=== PATIENT | female | born 1960 | race Caucasian/White ===

== ENCOUNTER 2020-06-12 11:21 | Inpatient (IN) | payer MEDICAID, SELFPAY ==
[2020-06-12] VITALS (8 sets, daily range): BP systolic 124–141; BP diastolic 61–88; PULSE 89–109; RESP 12–22; TEMP 36.9–37.3; O2SAT 96–99; BMI 22.0; BMI 18.2
--- NOTE | 2020-06-12 11:46 | EKG12_ITS ---
Test Reason : FALL Blood Pressure : / mmHG Vent. Rate : 097 BPM Atrial Rate : 097 BPM P-R Int : 122 ms QRS Dur : 076 ms QT Int : 370 ms P-R-T Axes : 036 040 083 degrees QTc Int : 469 ms Normal sinus rhythm Normal ECG Confirmed by GRZEGORZ WOOD, LEIDY ([id number]), online content editor LIZETH REYES ([id number]) on 06/14/2020 10:10:47 AM Referred By: MR Confirmed By:LEIDY LANTIGUA MD
[2020-06-12 12:11] LABS: Absolute Lymphocyte Count 1.03 X10^3/uL (0.83-4.51); Absolute Neutrophil Count 6.4 X10^3/uL (2.0-7.7); Basophil# 0.01 X10^3/uL; Basophil% 0.1 % (0-1); Eosinophil# 0.06 X10^3/uL; Eosinophils% 0.7 % (0-5); Hematocrit 36.7 % (37-47); Hemoglobin 12.1 g/dL (12.0-15.0); Lymphocyte # 1.03 X10^3/ul (4.0); Lymphocyte % 12.4 % (19-41); Mean Corpuscular Hgb 29.9 pg (27.0-32.0); Mean Corpuscular Volume 90.6 fL (81-99); Mean Platelet Vol. 10.1 fl (6.2-12.0); Monocyte% 9.6 % (0-10); NRBC Flagged by Analyzer 0 % (0-5); Neutrophil # 6.38 X10^3/uL (2.7-7.7); Platelet Count 197 K/mm3 (150-450); RBC Distribution Width CV 12.2 % (11.6-14.6); RBC Distribution Width SD 40.3 fl (35.1-43.9); Red Blood Count 4.05 M/mm3 (4.2-5.4); White Blood Count 8.3 K/mm3 (4.4-11.0)
[2020-06-12] MEDS: LORazepam 0.5 MG Tablet PO ×2 (12:18→21:22)
[2020-06-12] MEDS: Morphine 2 MG/ML Syringe IV (12:20)
[2020-06-12] MEDS: Ondansetron 4 MG/2 ML Vial IV (12:20)
[2020-06-12 12:25] LABS: Anion Gap 5 (5-15); BUN 6 mg/dL (7-18); Calcium,Total 8.6 mg/dL (8.5-10.1); Chloride 108 mmol/L (98-107); Creatinine, Serum 0.46 mg/dL (0.55-1.02); EST Glomerular Filtration Rate 146 mL/min (>60); Est Glom Filt Rate - Afr Amer 177 mL/min (>60); Glucose 95 mg/dL (74-106); Potassium 3.8 mmol/L (3.5-5.1); Sodium Level 138 mmol/L (136-145)
--- NOTE | 2020-06-12 12:30 | RAD_ITS ---
STUDY: X-RAY CHEST REASON FOR EXAM: Female, 59 years old. FELL ON FRIDAY, PAIN TECHNIQUE: Single AP portable view of the chest. COMPARISON: None. FINDINGS: The lungs are clear and expanded. There is no demonstrated pleural abnormality. Normal size heart. Normal mediastinum and stephanie. Normal visualized pulmonary arteries. Normal visualized aortic arch and descending thoracic aorta. There are diffuse degenerative changes of the visualized thoracic spine. There is a right shoulder arthroplasty. There are old healed fractures of the left ribs. There is no demonstrated abnormality of the visualized soft tissue structures of the upper abdomen. RAD/Chest 1 View (Portable) IMPRESSION: Degenerative changes, as described above. No demonstrated acute cardiopulmonary process. Electronically Signed: Layne Sanchez, at 12:56 EDT Tel , Service support ,
--- NOTE | 2020-06-12 12:30 | RAD_ITS ---
STUDY: X-RAY - PELVIS AND LEFT HIP REASON FOR EXAM: Female, 59 years old. FELL ON FRIDAY, PAIN TECHNIQUE: 3 views of the pelvis and hip. COMPARISON: None. FINDINGS: There is a non-specific bowel gas pattern. Normal visualized soft tissue structures. There is diffuse demineralization of the osseous structures. There is narrowing with cortical sclerosis and osteophyte formation of the sacroiliac joint consistent with degenerative osteoarthritic changes. Normal bilateral superior and inferior pubic rami. There are degenerative changes of the pubic symphysis with articular narrowing and sclerosis. Normal bilateral ischial tuberosities. There is mildly displaced intertrochanteric fracture of the left femur. RAD/HIP, UNI W/ Pelvis 2-3 Views IMPRESSION: There is mildly displaced intertrochanteric fracture of the left femur. Electronically Signed: Layne Sanchez, at 12:58 EDT Tel , Service support ,
[2020-06-12 12:42] LABS: Partial Thromboplast Time 33.7 Seconds (24.1-36.2); Prothrombin Time (Protime)PT. 12.9 SECONDS (11.7-14.9)
--- NOTE | 2020-06-12 13:38 | NURSING ---
HOSPITALIST PAGED ORTHO PAGED
--- NOTE | 2020-06-12 13:39 | NURSING ---
DR HERNANDEZ FOR DR ESTEVEZ
--- NOTE | 2020-06-12 13:58 | ED.DCSUM_ITS ---
History of Present Illness Chief Complaint: Fall Narrative: Patient presenting for evaluation secondary to a fall, pelvic pain, inability to ambulate. 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 She denies hitting her head or loss of consciousness. No numbness or weakness. She denies that the fall was associated with any sort of syncopal event. She is not anticoagulated. Pain is moderate, worse with palpation and movement. Patient basically has been sitting on the couch for the last couple of days, so she called EMS to be brought in for evaluation. Past Medical History - Allergies and Home Meds Allergies/Adverse Reactions: Allergies Penicillins Allergy (Verified 12/22/16 15:26) Hives Prior records reviewed: Yes Past Medical History: - - COPD Surgical History: - - Right shoulder surgery Smoking Status: Current every day smoker Alcohol: None Drugs: None Review of Systems All systems negative except as indicated General: Denies: Chills, Fever, Sweats Eyes: Denies: Visual changes - bilaterally, Diplopia ENT: Denies: Rhinorrhea, Sore throat Cardiovascular: Denies: Chest pain, Palpitations Respiratory: Denies: Dyspnea, Cough, Dyspnea on exertion Gastrointestinal: Denies: Abdominal pain, Nausea, Vomiting, Diarrhea, Melena, Hematochezia Genitourinary: Denies: Dysuria, Hematuria, Frequency Musculoskeletal: Reports: Extremity Pain Skin: Denies: Rash, Wounds Neurological: Denies: Headache, Weakness, Numbness Physical Exam Vital Signs/Narrative: Vital Signs Temp Pulse Resp BP Pulse Ox 06/12/20 13:03 99.1 F 91 17 139/71 H 97 06/12/20 12:21 95 17 133/74 H 99 06/12/20 11:42 99.1 F 109 H 22 H 136/74 H 99 06/12/20 11:24 99.1 F 104 H 12 137/76 H 99 Inital Vital Signs reviewed: Yes General: Cachectic Head: Normocephalic, Atraumatic Eyes: Perrl, EOMI ENT: TM's clear, No hemotympanum or drainage, No trauma Neck: Nontender, Full ROM Cardiovascular: Regular rate, Regular rhythm, No murmurs Respiratory: No distress, CTA bilaterally, Chest nontender Abdomen: Soft, Nontender, Nondistended, Normal bowel sounds Back: Nontender Extremeties: Pain with logroll of the left leg. No evidence of obvious deformity. Normal distal sensation and pulses. Skin: Normal color, No rash Neurological: Alert, Oriented x3, Cranial nerves II-XII grossly intact, Normal Strength, Normal Sensation Psychological: Normal affect Diagnostic/Tx/Re-eval Clinical Impression(s) from Imaging Studies Chest X-Ray 06/12/20 12:30 IMPRESSION: Degenerative changes, as described above. No demonstrated acute cardiopulmonary process. Electronically Signed: Layne Sanchez, at 12:56 EDT Tel , Service support , Hip/Pelvis X-Ray 06/12/20 12:30 IMPRESSION: There is mildly displaced intertrochanteric fracture of the left femur. Electronically Signed: Layne Sanchez, at 12:58 EDT Tel , Service support , Laboratory Data 06/12/20 06/12/20 06/12/20 11:58 11:58 11:58 WBC 8.3 RBC 4.05 L Hgb 12.1 Hct 36.7 L MCV 90.6 MCH 29.9 MCHC 33.0 RDW Std Deviation 40.3 RDW Coeff of Brittany 12.2 Plt Count 197 MPV 10.1 Immature Gran % (Auto) 0.200 Neut % (Auto) 77.0 H Lymph % (Auto) 12.4 L [place] % (Auto) 9.6 Eos % (Auto) 0.7 Baso % (Auto) 0.1 Absolute Neuts (auto) 6.4 Absolute Lymphs (auto) 1.03 Nucleated RBC % 0 PT 12.9 INR 1.0 APTT 33.7 Sodium 138 Potassium 3.8 Chloride 108 H Carbon Dioxide 25.0 Anion Gap 5 BUN 6 L Creatinine 0.46 L Estim Creat Clear Calc 102.90 Est GFR (MDRD) Af Amer 177 Est GFR (MDRD) Non-Af 146 BUN/Creatinine Ratio 13.0 Glucose 95 Calcium 8.6 - EKG Initial EKG Interpretation: - - Sinus rhythm at [address] segments normal T waves normal OR and QTc intervals no evidence of acute ischemia or arrhythmia - Medical Decision Making Patient presented after mechanical fall. I was concerned for hip fracture. Screening labs chest x-ray and EKG were all obtained. Patient was noted to have a left intertrochanteric hip fracture. Patient will be admitted under the hospitalist. I did discuss this with orthopedics. ED Disposition - Plan for ED Patient: Disposition: Acute Care Hospital [facility] Diagnosis: Intertrochanteric fracture of left hip
--- NOTE | 2020-06-12 14:08 | NURSING ---
303 HIP FX TERELETSKY
--- NOTE | 2020-06-12 14:54 | HP.PCM_ITS ---
Problem List (1) Intertrochanteric fracture of left hip Status: Acute (2) COPD (chronic obstructive pulmonary disease) Status: Chronic (3) Seizure Status: Chronic (4) HLD (hyperlipidemia) Status: Chronic (5) Esophageal reflux Status: Chronic (6) Rheumatoid arthritis Status: Chronic (7) Tobacco use disorder Status: Chronic History of Present Illness Date of Admission: 06/12/20 Chief Complaint: left hip pain The patient is a 59 year old F with pmhx of COPD, ongoing nicotine abuse, seizure disorder, rheumatoid arthritis, GERD, who presented to the ER with c/o left hip pain. This began two days prior when she fell at home. The patient was walking in her house and lost balance, falling onto the left hip. She denies LOC or head strike. She had severe pain and was unable to sit up or stand and weigh tbear. She did not come to the hospital because she though she may have only bruised her hip and that it would get better on its own. She continued to have pain and inability to stand and called the ambulance to come to the ER. She was found to have a left intertroch fracture. She has otherwise been in her normal state of health. [] Past Medical History Past Medical History (Chronic Problems): Chronic Problems COPD (chronic obstructive pulmonary disease) (Chronic) Seizure (Chronic) HLD (hyperlipidemia) (Chronic) Tobacco use disorder (Chronic) Rheumatoid arthritis (Chronic) Esophageal reflux (Chronic) Diabetes mellitus (Chronic) Chronic airway obstruction (Chronic) Allergies amoxicillin Allergy (Verified 06/12/20 14:33) Hives Penicillins Allergy (Verified 12/22/16 15:26) Hives aspirin Adverse Reaction (Verified 06/12/20 14:33) PT UNSURE OF REACTION Home Medications: Ambulatory Orders Medication Instructions Recorded Alendronate Sodium [Fosamax] 70 mg PO SA 12/22/16 Ipratropium/Albuterol Respimat 1 puff INHALATION 4X/DAY 12/22/16 [Combivent Respimat Inhal [place]] Lorazepam [Ativan] 0.5 mg PO BID 12/22/16 Omeprazole [Prilosec] 40 mg PO QHS 12/22/16 Phenytoin Na [Dilantin] 100 mg PO BID@0900,1700 12/22/16 Acetaminophen 500 mg PO Q6H PRN PRN 06/12/20 Aclidinium [place] [Tudorza 400 mcg IH BID 06/12/20 Pressair] Ascorbic Acid [Vitamin C] 500 mg PO DAILY 06/12/20 Benzonatate 100 mg PO DAILY PRN 06/12/20 Cholecalciferol (Vitamin D3) 2,000 unit PO DAILY 06/12/20 [Vitamin D3] Cyclobenzaprine HCl 10 mg PO BID PRN PRN 06/12/20 Diclofenac [Voltaren] 75 mg PO BID PRN PRN 06/12/20 Fluticasone Propionate [Flovent 2 puff INHALATION BID 06/12/20 Diskus] Folic Acid 1 mg PO BID 06/12/20 Hydrocodone/Acetaminophen [[place] 1 tab PO TID PRN PRN 06/12/20 5-325 Tablet] Loratadine 10 mg PO DAILY 06/12/20 Multivitamin with Folic Acid 400 mcg PO DAILY 06/12/20 [Thera Tablet] Paroxetine [Paxil] 20 mg PO DAILY 06/12/20 Pravastatin [Pravachol] 20 mg PO QHS 06/12/20 Surgical History: hysterectomy, - - Right shoulder surgery Psychiatric History: No pertinent psych hx Smoking Status: Current every day smoker Tobacco Use: Cigarettes Alcohol: Occasional Drugs: None - *Family History Maternal History Items: Hypertension Paternal History Items: Hypertension Review of Systems Constitutional: Denies: Chills, Fever, Weight Change HEENT: Denies: Head Aches, Sinus Congestion, Sinus Drainage Cardiovascular: Denies: Chest Pain, Palpitations Respiratory: Denies: Cough, Shortness of breath at rest, Sputum production Gastrointestinal: Denies: Abdominal Pain, Nausea, Vomiting Genitourinary: Denies: Dysuria Musculoskeletal: Reports: Joint Pain - left hip pain. Denies: Joint Tenderness Skin: Denies: Rash, Wounds Neurological: Denies: Numbness, Tingling, Focal weakness Psychiatric: Denies: Anxiety, Depression, Homicidal Ideations, Suicidal Ideations Hematologic/ Lymphatic: Denies: Easy Bruising, Easy Bleeding VTE Information - Inpt Only VTE Present on Admission: No VTE Mechan Device Prophylaxis: None VTE Pharm Prophylaxis ordered?: Yes Patient Problems: Active and Suspected Problems Intertrochanteric fracture of left hip (Acute) - Physical Exam Vitals/I&O's: Vital Signs Temp Pulse Resp BP Pulse Ox 98.4 F 89 17 141/61 H 98 06/12/20 14:19 06/12/20 14:19 06/12/20 14:19 06/12/20 14:19 06/12/20 14:19 Oxygen Delivery Method Room Air Weight: 109 lb 2.061 oz Body Mass Index (BMI) 22.0 General: Alert, Oriented x3, Cooperative, - - frail HEENT: Atraumatic, PERRLA, EOMI, Normocephalic Neck: Supple, No JVD, Negative Carotid Bruits Lungs: Clear to auscultation, Diminished Cardiovascular: Regular rate, No murmurs Abdomen: Bowel Sounds Present, Soft, Non Tender Extremities: No edema, Capillary Refill Less than 3 Seconds Skin: No rashes, No breakdown Musculoskeletal: No Tenderness to Palpation of Joints or Extremities, - - open wound no active drainage left yoder, no erythema or warmth. Neurological: Cranial nerves II-XII grossly intact Psych/Mental Status: Normal Affect, Appropriate Laboratory Results 06/12/20 11:58: WBC 8.3, RBC 4.05 L, Hgb 12.1, Hct 36.7 L, MCV 90.6, MCH 29.9, MCHC 33.0, RDW Std Deviation 40.3, RDW Coeff of Brittany 12.2, Plt Count 197, MPV 10.1, Immature Gran % (Auto) 0.200, Neut % (Auto) 77.0 H, Lymph % (Auto) 12.4 L, [place] % (Auto) 9.6, Eos % (Auto) 0.7, Baso % (Auto) 0.1, Absolute Neuts (auto) 6.4, Absolute Lymphs (auto) 1.03, Nucleated RBC % 0 06/12/20 11:58: PT 12.9, INR 1.0, APTT 33.7 06/12/20 11:58: Sodium 138, Potassium 3.8, Chloride 108 H, Carbon Dioxide 25.0, Anion Gap 5, BUN 6 L, Creatinine 0.46 L, Estim Creat Clear Calc 102.90, Est GFR (MDRD) Af Amer 177, Est GFR (MDRD) Non-Af 146, BUN/Creatinine Ratio 13.0, Glucose 95, Calcium 8.6 Current Medications Influenza Virus Vaccine Quadrival (Flucelvax /Fluzone ) 0.5 ml IM .ONCE ONE Stop: 06/13/20 10:01 Sodium Chloride () 10 - 40 ml IV UD PRN PRN Reason: SALINE FLUSH Assessment/Plan All Active Problems Intertrochanteric fracture of left hip (Acute) 1. Left intertroch fx 2/2 mechanical fall - probably pathologic with hx of osteoporosis - consult to Dr. Reyes. Pt already on Vit D, alendronate 2. COPD - no acute exacerbation - continue aerosols and provide incentive spirometer 3. Nicotine abuse - pt continues to smoke 1-1.5 ppd 4. Hx seizures - continue dilantin 5. Hx RA - on norco, voltaren, folate 5. GERD - continue PPI 6. Anxiety/Depression - ativan, paxil 7. HLD - statin DVT ppx: per ortho DC planning: PTOT post op This patient was seen by Alireza Paul PA-C under the supervision of Dr. Mejia
[2020-06-12] MEDS: Morphine 4 MG/ML Syringe IV ×2 (16:22→23:02)
[2020-06-12] MEDS: 0.9% Saline Lock 10 ML Syringe IV (16:25)
[2020-06-12] MEDS: 0.9% Normal Saline 1,000 ML 75 ML IV (16:25)
[2020-06-12] MEDS: Phenytoin Na 100 MG Capsule PO (16:36)
[2020-06-12] MEDS: Budesonide Respules 0.5 MG/2 ML AMPUL.NEB. INHALATION (18:43)
[2020-06-12] MEDS: Ipratropium/Albuterol Sulfate 3 ML AMPUL.NEB INHALATION (18:43)
[2020-06-12] MEDS: Pravastatin 20 MG Tablet PO (21:22)
[2020-06-12] MEDS: Pantoprazole Sodium 40 MG Tablet PO (21:22)
[2020-06-12] MEDS: Heparin Injection (Vial) 5,000 UNIT/ML VIAL 5000 UNIT SC (21:23)
[2020-06-13] VITALS (15 sets, daily range): BP systolic 115–162; BP diastolic 60–88; PULSE 78–109; RESP 12–18; TEMP 36.3–36.9; O2SAT 93–99; BMI 18.2
[2020-06-13] MEDS: Ipratropium/Albuterol Sulfate 3 ML AMPUL.NEB INHALATION ×4 (01:01→19:40)
[2020-06-13] MEDS: oxyCODONE 5 MG Tablet 10 MG PO ×3 (01:09→19:32)
[2020-06-13] MEDS: 0.9% Saline Lock 10 ML Syringe IV (01:11)
[2020-06-13] MEDS: 0.9% Normal Saline 1,000 ML 75 ML IV ×2 (05:27→19:30)
[2020-06-13] MEDS: Morphine 4 MG/ML Syringe IV ×4 (05:32→23:23)
[2020-06-13 06:33] LABS: Absolute Lymphocyte Count 1.25 X10^3/uL (0.83-4.51); Absolute Neutrophil Count 4.2 X10^3/uL (2.0-7.7); Basophil# 0.01 X10^3/uL; Basophil% 0.2 % (0-1); Eosinophil# 0.11 X10^3/uL; Eosinophils% 1.8 % (0-5); Hematocrit 33.2 % (37-47); Hemoglobin 10.5 g/dL (12.0-15.0); Lymphocyte # 1.25 X10^3/ul (4.0); Mean Corp Hgb Conc 31.6 g/dL (32-36); Mean Corpuscular Hgb 29.8 pg (27.0-32.0); Mean Corpuscular Volume 94.3 fL (81-99); Mean Platelet Vol. 10.5 fl (6.2-12.0); Monocyte# 0.67 X10^3/uL; Monocyte% 10.7 % (0-10); NRBC Flagged by Analyzer 0 % (0-5); Neutrophil # 4.21 X10^3/uL (2.7-7.7); Neutrophil % 67.1 % (47-70); Platelet Count 178 K/mm3 (150-450); RBC Distribution Width CV 12.4 % (11.6-14.6); RBC Distribution Width SD 42.7 fl (35.1-43.9); Red Blood Count 3.52 M/mm3 (4.2-5.4); White Blood Count 6.3 K/mm3 (4.4-11.0)
[2020-06-13] MEDS: Budesonide Respules 0.5 MG/2 ML AMPUL.NEB. INHALATION ×2 (07:01→19:40)
[2020-06-13 07:03] LABS: Anion Gap 4 (5-15); BUN 12 mg/dL (7-18); BUN/Creat Ratio 28.7 RATIO (10-20); Calcium,Total 7.9 mg/dL (8.5-10.1); Chloride 108 mmol/L (98-107); Creatinine, Serum 0.42 mg/dL (0.55-1.02); EST Glomerular Filtration Rate 165 mL/min (>60); Est Glom Filt Rate - Afr Amer 199 mL/min (>60); Estimated Creatinine Clearance 93.15 ml/min; Glucose 100 mg/dL (74-106); Sodium Level 138 mmol/L (136-145)
[2020-06-13 07:06] LABS: Phenytoin (Dilantin) Level 7.5 mL (10.0-20.0)
[2020-06-13] MEDS: LORazepam 0.5 MG Tablet PO ×2 (08:08→21:35)
[2020-06-13] MEDS: Paroxetine 20 MG Tablet PO (08:08)
[2020-06-13] MEDS: Phenytoin Na 100 MG Capsule PO ×2 (08:09→19:30)
--- NOTE | 2020-06-13 08:55 | NURSING ---
wound photo: left medial lower leg
--- NOTE | 2020-06-13 09:15 | CON.PCM_ITS ---
Reason for Consult Date of Consultation: 06/13/20 Reason for Consultation: Perioperative risk assessment History of Present Illness: The patient is a 59-year-old female, with a history as outlined below, who presented to the emergency department on June 12 with left hip pain after experiencing a fall in her home environment. The patient does have a reported history of COPD of unknown severity. She has never been evaluated by a warm in worker, nor has she ever completed pulmonary function studies in the past. Her primary care provider is currently managing her inhaler regimen, which includes Combivent, Tudorza and Flovent. The patient does have an extensive smoking history of 1.5 packs of cigarettes per day x45 years. She does not currently utilize any form of supplemental oxygen at her baseline. On presentation to the emergency department, the patient was noted to be afebrile and hemodynamically stable. She was maintaining appropriate oxygen saturations on room air. Initial laboratory evaluation was largely unremarkable. Hip x-ray revealed a mildly displaced intertrochanteric fracture of the left femur. Chest x-ray revealed no acute cardiopulmonary process. The patient was subsequently admitted to the hospital with plans to be evaluated by orthopedic surgery. Past Medical History Past Medical History (Chronic Problems): Chronic Problems COPD (chronic obstructive pulmonary disease) (Chronic) Seizure (Chronic) HLD (hyperlipidemia) (Chronic) Tobacco use disorder (Chronic) Rheumatoid arthritis (Chronic) Esophageal reflux (Chronic) Diabetes mellitus (Chronic) Chronic airway obstruction (Chronic) Allergies amoxicillin Allergy (Verified 06/12/20 14:33) Hives Penicillins Allergy (Verified 12/22/16 15:26) Hives aspirin Adverse Reaction (Verified 06/12/20 14:33) PT UNSURE OF REACTION Home Medications: Ambulatory Orders Medication Instructions Recorded Alendronate Sodium [Fosamax] 70 mg PO SA 12/22/16 Ipratropium/Albuterol Respimat 1 puff INHALATION 4X/DAY 12/22/16 [Combivent Respimat Inhal [place]] Lorazepam [Ativan] 0.5 mg PO BID 12/22/16 Omeprazole [Prilosec] 40 mg PO QHS 12/22/16 Phenytoin Na [Dilantin] 100 mg PO BID@0900,1700 12/22/16 Acetaminophen 500 mg PO Q6H PRN PRN 06/12/20 Aclidinium [place] [Tudorza 400 mcg IH BID 06/12/20 Pressair] Ascorbic Acid [Vitamin C] 500 mg PO DAILY 06/12/20 Benzonatate 100 mg PO DAILY PRN 06/12/20 Cholecalciferol (Vitamin D3) 2,000 unit PO DAILY 06/12/20 [Vitamin D3] Cyclobenzaprine HCl 10 mg PO BID PRN PRN 06/12/20 Diclofenac [Voltaren] 75 mg PO BID PRN PRN 06/12/20 Fluticasone Propionate [Flovent 2 puff INHALATION BID 06/12/20 Diskus] Folic Acid 1 mg PO BID 06/12/20 Hydrocodone/Acetaminophen [[place] 1 tab PO TID PRN PRN 06/12/20 5-325 Tablet] Loratadine 10 mg PO DAILY 06/12/20 Multivitamin with Folic Acid 400 mcg PO DAILY 06/12/20 [Thera Tablet] Paroxetine [Paxil] 20 mg PO DAILY 06/12/20 Pravastatin [Pravachol] 20 mg PO QHS 06/12/20 Surgical History: hysterectomy, - - Right shoulder surgery Psychiatric History: No pertinent psych hx Smoking Status: Current every day smoker Tobacco Use: Cigarettes Alcohol: Occasional Drugs: None - *Family History Maternal History Items: Hypertension Paternal History Items: Hypertension Review of Systems Constitutional: Denies: Chills, Fever, Night Sweats Eyes: Denies: Blurred vision, Double vision HEENT: Denies: Head Aches, Sinus Congestion, Sinus Drainage Cardiovascular: Denies: Chest Pain, Palpitations Respiratory: Reports: Cough, Shortness of Breath Gastrointestinal: Denies: Abdominal Pain, Nausea, Vomiting Genitourinary: Denies: Dysuria Musculoskeletal: Reports: Joint Pain Skin: Denies: Rash, Wounds Neurological: Reports: Seizures. Denies: Focal weakness, Numbness, Tingling Psychiatric: Denies: Anxiety, Depression, Homicidal Ideations, Suicidal Ideations Hematologic/ Lymphatic: Denies: Hx of blood clot Patient Problems: Active and Suspected Problems Intertrochanteric fracture of left hip (Acute) Objective: The patient's most recent lab work, culture data and imaging studies have all been personally reviewed. - Physical Exam Vitals/I&O's: Vital Signs Temp Pulse Resp BP Pulse Ox 98.5 F 89 16 131/72 H 98 06/13/20 03:00 06/13/20 03:00 06/13/20 03:00 06/13/20 03:00 06/13/20 03:00 Oxygen Delivery Method Room Air Weight: 90 lb 3.2 oz Body Mass Index (BMI) 18.2 Intake and Output for Last 24 Hours 06/11/20 06/12/20 06/13/20 23:59 23:59 23:59 Intake Total 300 / 300 977.5 / 977.5 Output Total 200 / 400 450 / 450 Balance 100 / -100 527.5 / 527.5 General: Alert, Cooperative, No apparent distress, - - Rather unkempt in appearance. HEENT: Atraumatic, Normocephalic Oral: No Gingival or Mucosal Lesions/ Ulcerations Neck: Supple, No Nodes, Trachea Midline Lungs: Diminished, - - Increased AP diameter. Prolonged expiratory phase. No wheezes, rales or rhonchi. Cardiovascular: Regular rate, Regular Rhythm Abdomen: Bowel Sounds Present, Soft, Non Tender Extremities: No clubbing, No cyanosis, No edema Skin: No breakdown Musculoskeletal: Cachexia Lymphatic: No Cervical, Supraclavicular, or Inguinal Adenopathy Neurological: Cranial nerves II-XII grossly intact, Neuro grossly intact Psych/Mental Status: Normal Affect, Appropriate Labs (Last 48 Hours) 06/12/20 06/12/20 06/12/20 11:58 11:58 11:58 WBC 8.3 RBC 4.05 L Hgb 12.1 Hct 36.7 L MCV 90.6 MCH 29.9 MCHC 33.0 RDW Std Deviation 40.3 RDW Coeff of Brittany 12.2 Plt Count 197 MPV 10.1 Immature Gran % (Auto) 0.200 Neut % (Auto) 77.0 H Lymph % (Auto) 12.4 L Dickinson % (Auto) 9.6 Eos % (Auto) 0.7 Baso % (Auto) 0.1 Absolute Neuts (auto) 6.4 Absolute Lymphs (auto) 1.03 Nucleated RBC % 0 PT 12.9 INR 1.0 APTT 33.7 Sodium 138 Potassium 3.8 Chloride 108 H Carbon Dioxide 25.0 Anion Gap 5 BUN 6 L Creatinine 0.46 L Estim Creat Clear Calc 102.90 Est GFR (MDRD) Af Amer 177 Est GFR (MDRD) Non-Af 146 BUN/Creatinine Ratio 13.0 Glucose 95 Calcium 8.6 Phenytoin Blood Type Antibody Screen 06/13/20 06/13/20 06/13/20 06:00 06:00 06:00 WBC 6.3 RBC 3.52 L Hgb 10.5 L Hct 33.2 L MCV 94.3 MCH 29.8 MCHC 31.6 L RDW Std Deviation 42.7 RDW Coeff of Brittany 12.4 Plt Count 178 MPV 10.5 Immature Gran % (Auto) 0.200 Neut % (Auto) 67.1 Lymph % (Auto) 20.0 Dickinson % (Auto) 10.7 H Eos % (Auto) 1.8 Baso % (Auto) 0.2 Absolute Neuts (auto) 4.2 Absolute Lymphs (auto) 1.25 Nucleated RBC % 0 PT INR APTT Sodium 138 Potassium 4.0 Chloride 108 H Carbon Dioxide 26.0 Anion Gap 4 L BUN 12 Creatinine 0.42 L Estim Creat Clear Calc 93.15 Est GFR (MDRD) Af Amer 199 Est GFR (MDRD) Non-Af 165 BUN/Creatinine Ratio 28.7 H Glucose 100 Calcium 7.9 L Phenytoin 7.5 L Blood Type Antibody Screen 06/13/20 06:00 WBC RBC Hgb Hct MCV MCH MCHC RDW Std Deviation RDW Coeff of Brittany Plt Count MPV Immature Gran % (Auto) Neut % (Auto) Lymph % (Auto) Dickinson % (Auto) Eos % (Auto) Baso % (Auto) Absolute Neuts (auto) Absolute Lymphs (auto) Nucleated RBC % PT INR APTT Sodium Potassium Chloride Carbon Dioxide Anion Gap BUN Creatinine Estim Creat Clear Calc Est GFR (MDRD) Af Amer Est GFR (MDRD) Non-Af BUN/Creatinine Ratio Glucose Calcium Phenytoin Blood Type O POSITIVE Antibody Screen NEGATIVE Clinical Impression(s) from Imaging Studies Chest X-Ray 06/12/20 12:30 IMPRESSION: Degenerative changes, as described above. No demonstrated acute cardiopulmonary process. Electronically Signed: Layne Sanchez, at 12:56 EDT Tel , Service support , Hip/Pelvis X-Ray 06/12/20 12:30 IMPRESSION: There is mildly displaced intertrochanteric fracture of the left femur. Electronically Signed: Layne Sanchez, at 12:58 EDT Tel , Service support , Current Medications Acetaminophen (Tylenol) 500 mg PO Q6H PRN PRN PRN Reason: Pain 1-10 or Fever Albuterol Sulfate (Ventolin Aerosols) 2.5 mg INHALATION Q2H PRN PRN PRN Reason: Shortness of Breath/Wheezing Albuterol/Ipratropium (Duoneb) 3 ml INHALATION Q6H.RT [facility] Last Admin: 06/13/20 07:01 Dose: 3 ml Documented by: Ascorbic Acid (Vitamin C) 500 mg PO DAILY@0800 [facility] Last Admin: 06/13/20 07:17 Dose: Not Given Documented by: Budesonide (Pulmicort Aerosol) 0.5 mg INHALATION Q12H.RT [facility] Last Admin: 06/13/20 07:01 Dose: 0.5 mg Documented by: Cholecalciferol (Vitamin D (25mcg)) 2,000 unit PO DAILY [facility] Last Admin: 06/13/20 07:18 Dose: Not Given Documented by: Cyclobenzaprine HCl (Flexeril) 10 mg PO BID PRN PRN PRN Reason: BACK Spasms Diclofenac Sodium (Voltaren) 75 mg PO BID PRN PRN PRN Reason: BACK PAIN Folic Acid (Folic Acid) 1 mg PO BIDCM [facility] Last Admin: 06/13/20 07:17 Dose: Not Given Documented by: Heparin Sodium (Porcine) (Heparin Na) 5,000 unit SC Q12 [facility] Last Admin: 06/13/20 07:17 Dose: Not Given Documented by: Sodium Chloride () 1,000 mls @ 75 mls/hr IV .[id number] [facility] Last Admin: 06/13/20 05:27 Dose: 75 mls/hr Documented by: Influenza Virus Vaccine Quadrival (Flucelvax /Fluzone ) 0.5 ml IM .ONCE ONE Stop: 06/13/20 10:01 Lorazepam (Ativan) 0.5 mg PO BID [facility] Last Admin: 06/13/20 08:08 Dose: 0.5 mg Documented by: Morphine Sulfate () 4 mg IV Q3H PRN PRN PRN Reason: Pain Score 6-10/10 Last Admin: 06/13/20 05:32 Dose: 4 mg Documented by: Nicotine (Nicoderm Cq (Pbkc)) 21 mg TRANSDERM. DAILY [facility] Last Admin: 06/12/20 16:25 Dose: 21 mg Documented by: Nutritional Formula (Lactose Free) (Ensure Enlive) 120 ml PO 4X/DAY [facility] Last Admin: 06/13/20 07:17 Dose: Not Given Documented by: Ondansetron HCl (Zofran) 4 mg IV Q8H PRN PRN PRN Reason: NAUSEA/VOMITING Oxycodone HCl (Oxyir) 10 mg PO Q4H PRN PRN PRN Reason: Pain Score 4-5/10 Last Admin: 06/13/20 08:11 Dose: 10 mg Documented by: Pantoprazole Sodium (Protonix) 40 mg PO QHS [facility] Last Admin: 06/12/20 21:22 Dose: 40 mg Documented by: Paroxetine HCl (Paxil) 20 mg PO DAILY [facility] Last Admin: 06/13/20 08:08 Dose: 20 mg Documented by: Phenytoin Sodium (Dilantin) 100 mg PO BID@0900,1700 [facility] Last Admin: 06/13/20 08:09 Dose: 100 mg Documented by: Pravastatin Sodium (Pravachol) 20 mg PO QHS [facility] Last Admin: 06/12/20 21:22 Dose: 20 mg Documented by: Sodium Chloride () 10 - 40 ml IV UD PRN PRN Reason: SALINE FLUSH Last Admin: 06/13/20 01:11 Dose: 10 ml Documented by: Temazepam (Restoril) 15 mg PO QHS PRN PRN PRN Reason: INSOMNIA Assessment/Plan All Active Problems Intertrochanteric fracture of left hip (Acute) RECOMMENDATIONS: 1. Continue perioperative bronchodilator therapy and scheduled budesonide twice daily. 2. Encourage incentive spirometer use both pre-and postoperatively. 3. Start DVT prophylaxis. 4. Early mobilization postoperatively. 5. Supplemental oxygen, if required, to maintain saturations at or above 90%. IMPRESSIONS: 1. Questionable history of COPD of unknown severity The patient has never been formally been evaluated by warm in worker, nor has she ever completed pulmonary function studies. Therefore, I cannot definitively say if she truly has underlying obstructive lung disease, and if so, how severe her lung disease truly is. There is no inpatient testing that would allow me to quantify her lung function. The patient is not currently hypoxemic, requiring supplemental oxygen. However, bearing in mind the extensive nature of her s moking history, it would be reasonable to assume that the patient would be at increased risk for postoperative pulmonary complications, based upon her smoking history alone and the high probability for underlying COPD. Steps recommended perioperatively to minimize risk include incentive spirometry, early mobilization, DVT prophylaxis, perioperative bronchodilators and supplemental oxygen to maintain saturations at or above 90%. 2. History of tobacco dependency I personally spent 4 minutes discussing the deleterious effects of continued tobacco use with the patient, including modalities which could be utilized to achieve a smoke-free lifestyle. Nicotine replacement therapy can be offered to the patient while admitted to the hospital. 3. Left intertrochanteric fracture status post mechanical fall Orthopedic surgery following with plans for surgical intervention later today. This note was generated with [email or web address] dictation software. It may contain incorrect words, spelling, and punctuation that were not noted in checking the note before signing. Inpatient E&M: 15625 Init Hosp L3 - Behavior Interventions Behavior Intervention: 88262 Smoking Cessation 3-10 min
--- NOTE | 2020-06-13 10:47 | PCM.PN.HOSP ---
Patient Problems: Active and Suspected Problems Intertrochanteric fracture of left hip (Acute) Reason for Visit: Perioperative risk evaluation for left hip intertrochanteric fracture, COPD and other comorbidities. Objective: Patient has extensive smoking history of 1.5 packs cigarettes and smoking pipes for 45 years, since early teenage. Patient remains minimal in her home environment and get short of breath on exertion. Dyspnea on exertion on climbing 4-5 steps. She was not using walker or cane prior to fall. She also has history of rheumatoid arthritis and osteoporosis and seizure disorder. She is not a good historian faintly recall that she had fracture in the left hip/pelvic area and required screws but x-ray does not show any eusebio of the screw. She has never been evaluated by integrity engineer or had outpatient PFT. Discussed with the integrity engineer, Dr. Michael. She does not uses oxygen or noninvasive pressure support machine at home. Physical exam General: Alert, Oriented x3, Cooperative HEENT: Atraumatic, PERRLA, EOMI, Normocephalic. Oral: No Gingival or Mucosal Lesions/ Ulcerations Neck: Supple, No JVD, Negative Carotid Bruits Lungs: Air entry severely diminished in bilateral lung. Fine expiratory rhonchi present. No wheezing. No tachypnea or hypoxia. Cardiovascular: Regular rate, Regular Rhythm, Normal S1, Normal S2, No murmurs Abdomen: Bowel Sounds Present, Soft, Non Tender, Non-Distended : No renal angle tenderness. No suprapubic tenderness. Extremities: No edema, Capillary Refill Less than 3 Seconds Skin: No rashes, No breakdown Musculoskeletal: Tenderness present over left hip area. Left lower extremity externally rotated and abducted. Neurological: Cranial nerves II-XII grossly intact, Deep Tendon Reflexes 2+/4 and Symmetrical, Neuro grossly intact Psych/Mental Status: Normal Affect, Appropriate. Vitals/I&O's: Vital Signs Temp Pulse Resp BP Pulse Ox 97.3 F L 90 18 115/60 98 06/13/20 08:15 06/13/20 08:15 06/13/20 08:15 06/13/20 08:15 06/13/20 08:15 Oxygen Delivery Method Room Air Weight: 90 lb 3.2 oz Body Mass Index (BMI) 18.2 Intake and Output for Last 24 Hours 06/11/20 06/12/20 06/13/20 23:59 23:59 23:59 Intake Total 300 / 300 977.5 / 977.5 Output Total 200 / 400 450 / 450 Balance 100 / -100 527.5 / 527.5 Laboratory Results 06/12/20 11:58: WBC 8.3, RBC 4.05 L, Hgb 12.1, Hct 36.7 L, MCV 90.6, MCH 29.9, MCHC 33.0, RDW Std Deviation 40.3, RDW Coeff of Brittany 12.2, Plt Count 197, MPV 10.1, Immature Gran % (Auto) 0.200, Neut % (Auto) 77.0 H, Lymph % (Auto) 12.4 L, Braxton % (Auto) 9.6, Eos % (Auto) 0.7, Baso % (Auto) 0.1, Absolute Neuts (auto) 6.4, Absolute Lymphs (auto) 1.03, Nucleated RBC % 0 06/12/20 11:58: PT 12.9, INR 1.0, APTT 33.7 06/12/20 11:58: Sodium 138, Potassium 3.8, Chloride 108 H, Carbon Dioxide 25.0, Anion Gap 5, BUN 6 L, Creatinine 0.46 L, Estim Creat Clear Calc 102.90, Est GFR (MDRD) Af Amer 177, Est GFR (MDRD) Non-Af 146, BUN/Creatinine Ratio 13.0, Glucose 95, Calcium 8.6 06/13/20 06:00: WBC 6.3, RBC 3.52 L, Hgb 10.5 L, Hct 33.2 L, MCV 94.3, MCH 29.8, MCHC 31.6 L, RDW Std Deviation 42.7, RDW Coeff of Brittany 12.4, Plt Count 178, MPV 10.5, Immature Gran % (Auto) 0.200, Neut % (Auto) 67.1, Lymph % (Auto) 20.0, Braxton % (Auto) 10.7 H, Eos % (Auto) 1.8, Baso % (Auto) 0.2, Absolute Neuts (auto) 4.2, Absolute Lymphs (auto) 1.25, Nucleated RBC % 0 06/13/20 06:00: Sodium 138, Potassium 4.0, Chloride 108 H, Carbon Dioxide 26.0, Anion Gap 4 L, BUN 12, Creatinine 0.42 L, Estim Creat Clear Calc 93.15, Est GFR (MDRD) Af Amer 199, Est GFR (MDRD) Non-Af 165, BUN/Creatinine Ratio 28.7 H, Glucose 100, Calcium 7.9 L 06/13/20 06:00: Phenytoin 7.5 L 06/13/20 06:00: Blood Type O POSITIVE, Antibody Screen NEGATIVE Current Medications Acetaminophen (Tylenol) 500 mg PO Q6H PRN PRN PRN Reason: Pain 1-10 or Fever Albuterol Sulfate (Ventolin Aerosols) 2.5 mg INHALATION Q2H PRN PRN PRN Reason: Shortness of Breath/Wheezing Albuterol/Ipratropium (Duoneb) 3 ml INHALATION Q6H.RT [facility] Last Admin: 06/13/20 07:01 Dose: 3 ml Documented by: Ascorbic Acid (Vitamin C) 500 mg PO DAILY@0800 [facility] Last Admin: 06/13/20 07:17 Dose: Not Given Documented by: Budesonide (Pulmicort Aerosol) 0.5 mg INHALATION Q12H.RT [facility] Last Admin: 06/13/20 07:01 Dose: 0.5 mg Documented by: Cholecalciferol (Vitamin D (25mcg)) 2,000 unit PO DAILY [facility] Last Admin: 06/13/20 07:18 Dose: Not Given Documented by: Cyclobenzaprine HCl (Flexeril) 10 mg PO BID PRN PRN PRN Reason: BACK Spasms Diclofenac Sodium (Voltaren) 75 mg PO BID PRN PRN PRN Reason: BACK PAIN Folic Acid (Folic Acid) 1 mg PO BIDCM [facility] Last Admin: 06/13/20 07:17 Dose: Not Given Documented by: Heparin Sodium (Porcine) (Heparin Na) 5,000 unit SC Q12 [facility] Last Admin: 06/13/20 07:17 Dose: Not Given Documented by: Sodium Chloride () 1,000 mls @ 75 mls/hr IV .[id number] [facility] Last Admin: 06/13/20 05:27 Dose: 75 mls/hr Documented by: Lorazepam (Ativan) 0.5 mg PO BID [facility] Last Admin: 06/13/20 08:08 Dose: 0.5 mg Documented by: Morphine Sulfate () 4 mg IV Q3H PRN PRN PRN Reason: Pain Score 6-10/10 Last Admin: 06/13/20 05:32 Dose: 4 mg Documented by: Nicotine (Nicoderm Cq (Pbkc)) 21 mg TRANSDERM. DAILY [facility] Last Admin: 06/12/20 16:25 Dose: 21 mg Documented by: Nutritional Formula (Lactose Free) (Ensure Enlive) 120 ml PO 4X/DAY [facility] Last Admin: 06/13/20 07:17 Dose: Not Given Documented by: Ondansetron HCl (Zofran) 4 mg IV Q8H PRN PRN PRN Reason: NAUSEA/VOMITING Oxycodone HCl (Oxyir) 10 mg PO Q4H PRN PRN PRN Reason: Pain Score 4-5/10 Last Admin: 06/13/20 08:11 Dose: 10 mg Documented by: Pantoprazole Sodium (Protonix) 40 mg PO QHS [facility] Last Admin: 06/12/20 21:22 Dose: 40 mg Documented by: Paroxetine HCl (Paxil) 20 mg PO DAILY [facility] Last Admin: 06/13/20 08:08 Dose: 20 mg Documented by: Phenytoin Sodium (Dilantin) 100 mg PO BID@0900,1700 [facility] Last Admin: 06/13/20 08:09 Dose: 100 mg Documented by: Pravastatin Sodium (Pravachol) 20 mg PO QHS [facility] Last Admin: 06/12/20 21:22 Dose: 20 mg Documented by: Sodium Chloride () 10 - 40 ml IV UD PRN PRN Reason: SALINE FLUSH Last Admin: 06/13/20 01:11 Dose: 10 ml Documented by: Temazepam (Restoril) 15 mg PO QHS PRN PRN PRN Reason: INSOMNIA STROKE Vital Signs/Narrative: Vital Signs Temp Pulse Resp BP Pulse Ox 06/13/20 08:15 97.3 F L 90 18 115/60 98 Medical Necessity - Tobacco Use Smoking Status: Current every day smoker Tobacco Use: Cigarettes Assessment/Plan All Active Problems Intertrochanteric fracture of left hip (Acute) This 59-year-old female with extensive history of smoking, COPD and other comorbidities admitted with fall and consequent left hip fracture 1. Perioperative management of left intertroch pathological fracture-: Clinically, she fulfills criteria for pathological fracture as she fell down from less than her standing height and she has history of rheumatoid arthritis. Dr. Reyes is been consulted. Continue vitamin D and alendronate. Patient denies cardiac disease including CHF, coronary artery disease/[place] or arrhythmia. EKG reviewed normal sinus rhythm at 97 bpm. No significant change from previous EKG of April 2011. Bilateral SCDs. Patient is scheduled for surgery today afternoon. Pharmacological prophylaxis needs to be started soon after surgery according to perioperative bleeding risk by orthopedic surgeon. PT and OT and early mobilization. 2. COPD with unknown severity- no acute exacerbation. NSQIP surgical risk calculation was done. She has serious complication about 17.3%, any complication 17.6%, risk of pneumonia 4.1% and readmission 14% above average. Discussed with the integrity engineer. Plant Senior Manager consult reviewed and appreciated. On bronchodilator scheduled, reviewed and aside, incentive spirometry. Patient is high risk for perioperative pulmonary as well as other complication in view of extensive history of smoking. 3. Nicotine abuse: Patient smokes 1.5 pack/day of cigarettes and also smokes pipes. Nicotine patch. Smoking cessation counseling done. 4. Chronic seizure disorder: Exact classification, severity and etiology unclear- continue dilantin 5. Rheumatoid arthritis: On norco, voltaren, folate 5. GERD - continue PPI 6. Anxiety/Depression - ativan, paxil 7. HLD - statin DVT ppx: Recommend Lovenox or NOACs for DVT prophylaxis. Discharge planning: Discussed with case planner. Total time of the visit including total time spent in counseling or coordination of care, (more than 50% of the total time, spent in obtaining medical information from nurses and other ancillary care providers), discussion with student union consultant, review of labs and imaging is 30 minutes. Inpatient E&M: [id number] [facility] L3
--- NOTE | 2020-06-13 11:59 | CASEMGMT ---
Social Work Assessment Referral Date: 06/13/2020 Date of Assessment: 06/13/2020 Reason for consult: Hip fracture Informant: SARAH Personal Status: SW met with pt to complete initial assessment. SW introduced self and role at [facility]. Pt is alert and orientated x3. Pt states that she lives with her boyfriend in a two story home with no steps to enter. Pt states she was previously independent at home. Pt states she doesn't drive so transportation is either her boyfriend, taxi, or walking. Pt has no DME in the home. PCP is Dr. Larry (?SP) through [facility] Pharmacy is [facility] or [facility]. Substance Abuse: Pt states she smokes 1.5 pack of cigarettes a day. Pt denied any additional substance abuse/use. Mental Health Hx: Pt states history of depression is currently on depression medications. Pt denied any history of suicidal thoughts/plans/ideations. HHC: Pt states she used to have HHC in [place] but unable to call which agency it was through SNF: Pt states she has been to [facility] in the past SARAH spoke with pt regarding discharge plans. Pt states she prefers to return home at discharge but she would need a wheelchair, walker/rollator. SARAH informed pt that after surgery pt will work with PT/OT who will make recommendations on discharge. SARAH did provide pt with list of SNF that accept pt's insurance in the event SNF is needed. Plan: TBD pending surgery and PT/OT Sweta King [employer], [employer] MA[employer]
--- NOTE | 2020-06-13 14:27 | PCM.NTREPORT ---
Nutrition Therapy Report - History Nutrition Services has been consulted to:: Manage nutrient details of diet order Current diet / nutrition support order:: NPO for surgery - Anthropometric Measurements Height:: 4 ft 11 in Weight:: 40.9 kg Body Mass Index (BMI):: 18.2 - Relevant Labs Relevant Labs:: RBC 3.52 M/mm3 (4.2-5.4) L 06/13/20 06:00 Hgb 10.5 g/dL (12.0-15.0) L 06/13/20 06:00 Hct 33.2 % (37-47) L 06/13/20 06:00 MCHC 31.6 g/dL (32-36) L 06/13/20 06:00 Neut % (Auto) 77.0 % (47-70) H 06/12/20 11:58 Lymph % (Auto) 12.4 % (19-41) L 06/12/20 11:58 [place] % (Auto) 10.7 % (0-10) H 06/13/20 06:00 Chloride 108 mmol/L (98-107) H 06/13/20 06:00 Anion Gap 4 (5-15) L 06/13/20 06:00 BUN 6 mg/dL (7-18) L 06/12/20 11:58 Creatinine 0.42 mg/dL (0.55-1.02) L 06/13/20 06:00 BUN/Creatinine Ratio 28.7 RATIO (10-20) H 06/13/20 06:00 Calcium 7.9 mg/dL (8.5-10.1) L 06/13/20 06:00 - Assessment Food / Nutrition-Related History:: Pt reports overall decreased PO/tata at meals and has not been eating much at all. Reports UBW~98 lbs about 1 month ago but, admits to fluctuating wt between~90-105 lbs. Pt willing to accept varied ONS w/ meals in addition to ensure enlive w/ medpass. Wt loss calculated~8% x past 1 month per pt report in addition to obvious muscle/fat wasting in the face, clavicle and upper body. Pt meets criteria for severe pro/mary ellen malnutrition as evidenced by significant wt loss, +NFPA showing muscle/fat wasting and decreased PO at meals x past 1-2 months. - Nutrition Diagnosis Problem / Etiology / Signs & Symptoms (PES):: Severe pro/mary ellen malnutrition of chronic disease related to ongoing poor intake/appetite and increased energy expenditure as evidenced by wt loss~8% x past 1 month, poor intake water vessel captain and +NFPA revealing muscle/fat wasting. Evidence of Malnutrition Exists:: Yes Severe PCM:: Chronic Illness - Nutrition Intervention Nutrition Prescription:: Estimated Nutrition Needs~[id number] kcal & ~60-65 gm protein for repletion. - Food / Nutrient Delivery Interventions Summary of nutrition intervention:: Will offer a avriety of oral nutrition supplements w/ meals & w/ medpass for tolerance; will adjust as needed and per pt acceptance. May need to consider TF support if PO inadequate as diet advanced. Nutrition support ordered as / adjusted to:: Oral nutrition supplements at this time; no TF nor TPN ordered. Nutrition education provided?: Yes - MNT Monitoring Further MNT monitoring and evaluation required?: Yes MNT Follow-up in:: 3-5 days
--- NOTE | 2020-06-13 16:40 | PCM.CONS.GEN ---
Reason for Consult Date of Consultation: 06/13/20 Reason for Consultation: Left hip pain. Requested by Dr. Mejia History of Present Illness: The patient is a 59 year old F history of COPD, rheumatoid arthritis and seizure disorder. Patient also has history of right subtrochanteric femur fracture which was treated nonoperatively. She notes it was in the early 90s by Dr. Mon. She is a very poor historian. In addition patient also has had multiple surgeries on her left leg which she does not reveal until after her examination when I noted scars on her leg. She also has an open wound from a previous tibia fracture which ended up an infection. She at one point has had plastic surgery for coverage. She manages her own wound at home. They are doing silver dressings here. In short related to the left hip pain patient fell 3 days ago. She waited 2 days, the emergency department. She presented yesterday with left hip pain and inability ambulate. She has 7 out of 10 pain better with immobilization and pain medications worse with weightbearing. Located in the hip and groin. No associated numbness or tingling. She does have chronic weakness in the left foot including difficulty with dorsiflexion and extension of the long toe. Past Medical History Past Medical History (Chronic Problems): Chronic Problems COPD (chronic obstructive pulmonary disease) (Chronic) Seizure (Chronic) HLD (hyperlipidemia) (Chronic) Tobacco use disorder (Chronic) Rheumatoid arthritis (Chronic) Esophageal reflux (Chronic) Diabetes mellitus (Chronic) Chronic airway obstruction (Chronic) Allergies amoxicillin Allergy (Verified 06/12/20 14:33) Hives Penicillins Allergy (Verified 12/22/16 15:26) Hives aspirin Adverse Reaction (Verified 06/12/20 14:33) PT UNSURE OF REACTION Home Medications: Ambulatory Orders Medication Instructions Recorded Alendronate Sodium [Fosamax] 70 mg PO SA 12/22/16 Ipratropium/Albuterol Respimat 1 puff INHALATION 4X/DAY 12/22/16 [Combivent Respimat Inhal [place]] Lorazepam [Ativan] 0.5 mg PO BID 12/22/16 Omeprazole [Prilosec] 40 mg PO QHS 12/22/16 Phenytoin Na [Dilantin] 100 mg PO BID@0900,1700 12/22/16 Acetaminophen 500 mg PO Q6H PRN PRN 06/12/20 Aclidinium [place] [Tudorza 400 mcg IH BID 06/12/20 [place]] Ascorbic Acid [Vitamin C] 500 mg PO DAILY 06/12/20 Benzonatate 100 mg PO DAILY PRN 06/12/20 Cholecalciferol (Vitamin D3) 2,000 unit PO DAILY 06/12/20 [Vitamin D3] Cyclobenzaprine HCl 10 mg PO BID PRN PRN 06/12/20 Diclofenac [Voltaren] 75 mg PO BID PRN PRN 06/12/20 Fluticasone Propionate [Flovent 2 puff INHALATION BID 06/12/20 Diskus] Folic Acid 1 mg PO BID 06/12/20 Hydrocodone/Acetaminophen [[place] 1 tab PO TID PRN PRN 06/12/20 5-325 Tablet] Loratadine 10 mg PO DAILY 06/12/20 Multivitamin with Folic Acid 400 mcg PO DAILY 06/12/20 [Thera Tablet] Paroxetine [Paxil] 20 mg PO DAILY 06/12/20 Pravastatin [Pravachol] 20 mg PO QHS 06/12/20 Surgical History: hysterectomy, - - Right shoulder surgery Psychiatric History: No pertinent psych hx Smoking Status: Current every day smoker Tobacco Use: Cigarettes Alcohol: Occasional Drugs: None - *Family History Maternal History Items: Hypertension Paternal History Items: Hypertension Review of Systems Constitutional: Denies: Chills, Fever, Weight Change HEENT: Denies: Head Aches, Sinus Congestion, Sinus Drainage Cardiovascular: Denies: Chest Pain, Palpitations Respiratory: Denies: Cough, Shortness of breath at rest, Sputum production Gastrointestinal: Denies: Abdominal Pain, Nausea, Vomiting Genitourinary: Denies: Dysuria Musculoskeletal: Denies: Joint Pain, Joint Tenderness Skin: Reports: Wounds - Left leg wound 1 cm x 1 cm chronically open. Denies: Rash Neurological: Denies: Numbness, Tingling, Focal weakness Psychiatric: Denies: Anxiety, Depression, Homicidal Ideations, Suicidal Ideations Hematologic/ Lymphatic: Denies: Easy Bruising, Easy Bleeding Patient Problems: Active and Suspected Problems Intertrochanteric fracture of left hip (Acute) Objective: Left hip x-rays show a displaced intertrochanteric left hip fracture. Pelvis film does reveal well-healed previous subtrochanteric right femur fracture in addition patient has a previous right shoulder hemiarthroplasty on chest x-ray. - Physical Exam Vitals/I&O's: Vital Signs Temp Pulse Resp BP Pulse Ox 97.6 F L 109 H 18 121/88 H 98 06/13/20 14:22 06/13/20 14:22 06/13/20 14:22 06/13/20 14:22 06/13/20 14:22 Oxygen Delivery Method Room Air Weight: 90 lb 2.705 oz Body Mass Index (BMI) 18.2 Intake and Output for Last 24 Hours 06/11/20 06/12/20 06/13/20 23:59 23:59 23:59 Intake Total 300 / 300 977.5 / 977.5 Output Total 200 / 400 750 / 750 Balance 100 / -100 227.5 / 227.5 General: Alert, Oriented x3, Cooperative, - - Cachectic appearing HEENT: Atraumatic Neck: No JVD Lungs: - - Nonlabored breathing today Cardiovascular: - - Regular pulse rate Abdomen: Non-Distended Extremities: - - Left lower extremity: Skin clean, dry, and intact at the hip. Patient has multiple scars around the leg consistent with tibial nailing and associated soft tissue coverage. There is a 1 cm x 1 cm small draining wound. . Limb is shortened and externally rotated Motor is intact dorsiflexion,and plantar flexion. With 4 out of 5 dorsiflexion strength and absent EHL. Patient reports Sensation is intact to light touch saphenous, ruddy,l superficial peroneal, deep peroneal and tibial distributions. Calves are soft and supple. Skin: Ulcer/ Wound - Left leg Neurological: Cranial nerves II-XII grossly intact Laboratory Results 06/13/20 06:00: WBC 6.3, RBC 3.52 L, Hgb 10.5 L, Hct 33.2 L, MCV 94.3, MCH 29.8, MCHC 31.6 L, RDW Std Deviation 42.7, RDW Coeff of Brittany 12.4, Plt Count 178, MPV 10.5, Immature Gran % (Auto) 0.200, Neut % (Auto) 67.1, Lymph % (Auto) 20.0, Placer % (Auto) 10.7 H, Eos % (Auto) 1.8, Baso % (Auto) 0.2, Absolute Neuts (auto) 4.2, Absolute Lymphs (auto) 1.25, Nucleated RBC % 0 06/13/20 06:00: Sodium 138, Potassium 4.0, Chloride 108 H, Carbon Dioxide 26.0, Anion Gap 4 L, BUN 12, Creatinine 0.42 L, Estim Creat Clear Calc 93.15, Est GFR (MDRD) Af Amer 199, Est GFR (MDRD) Non-Af 165, BUN/Creatinine Ratio 28.7 H, Glucose 100, Calcium 7.9 L 06/13/20 06:00: Phenytoin 7.5 L 06/13/20 06:00: Blood Type O POSITIVE, Antibody Screen NEGATIVE Current Medications Acetaminophen (Tylenol) 500 mg PO Q6H PRN PRN PRN Reason: Pain 1-10 or Fever Albuterol Sulfate (Ventolin Aerosols) 2.5 mg INHALATION Q2H PRN PRN PRN Reason: Shortness of Breath/Wheezing Albuterol/Ipratropium (Duoneb) 3 ml INHALATION Q6H.RT [facility] Last Admin: 06/13/20 12:51 Dose: 3 ml Documented by: Ascorbic Acid (Vitamin C) 500 mg PO DAILY@0800 [facility] Last Admin: 06/13/20 07:17 Dose: Not Given Documented by: Budesonide (Pulmicort Aerosol) 0.5 mg INHALATION Q12H.RT [facility] Last Admin: 06/13/20 07:01 Dose: 0.5 mg Documented by: Cholecalciferol (Vitamin D (25mcg)) 2,000 unit PO DAILY [facility] Last Admin: 06/13/20 07:18 Dose: Not Given Documented by: Cyclobenzaprine HCl (Flexeril) 10 mg PO BID PRN PRN PRN Reason: BACK Spasms Diclofenac Sodium (Voltaren) 75 mg PO BID PRN PRN PRN Reason: BACK PAIN Folic Acid (Folic Acid) 1 mg PO BIDCM [facility] Last Admin: 06/13/20 16:34 Dose: Not Given Documented by: Heparin Sodium (Porcine) (Heparin Na) 5,000 unit SC Q12 [facility] Last Admin: 06/13/20 07:17 Dose: Not Given Documented by: Sodium Chloride () 1,000 mls @ 75 mls/hr IV .[id number] [facility] Last Admin: 06/13/20 05:27 Dose: 75 mls/hr Documented by: Lorazepam (Ativan) 0.5 mg PO BID [facility] Last Admin: 06/13/20 08:08 Dose: 0.5 mg Documented by: Morphine Sulfate () 4 mg IV Q3H PRN PRN PRN Reason: Pain Score 6-10/10 Last Admin: 06/13/20 15:32 Dose: 4 mg Documented by: Nicotine (Nicoderm Cq (Pbkc)) 21 mg TRANSDERM. DAILY [facility] Last Admin: 06/12/20 16:25 Dose: 21 mg Documented by: Nutritional Formula (Lactose Free) (Ensure Enlive) 120 ml PO 4X/DAY [facility] Last Admin: 06/13/20 16:34 Dose: Not Given Documented by: Ondansetron HCl (Zofran) 4 mg IV Q8H PRN PRN PRN Reason: NAUSEA/VOMITING Oxycodone HCl (Oxyir) 10 mg PO Q4H PRN PRN PRN Reason: Pain Score 4-5/10 Last Admin: 06/13/20 08:11 Dose: 10 mg Documented by: Pantoprazole Sodium (Protonix) 40 mg PO QHS [facility] Last Admin: 06/12/20 21:22 Dose: 40 mg Documented by: Paroxetine HCl (Paxil) 20 mg PO DAILY [facility] Last Admin: 06/13/20 08:08 Dose: 20 mg Documented by: Phenytoin Sodium (Dilantin) 100 mg PO BID@0900,1700 [facility] Last Admin: 06/13/20 08:09 Dose: 100 mg Documented by: Pravastatin Sodium (Pravachol) 20 mg PO QHS [facility] Last Admin: 06/12/20 21:22 Dose: 20 mg Documented by: Sodium Chloride () 10 - 40 ml IV UD PRN PRN Reason: SALINE FLUSH Last Admin: 06/13/20 01:11 Dose: 10 ml Documented by: Temazepam (Restoril) 15 mg PO QHS PRN PRN PRN Reason: INSOMNIA Assessment/Plan All Active Problems Intertrochanteric fracture of left hip (Acute) Patient's acute orthopedic issue is a left intertrochanteric hip fracture. Natural history of the disease process and treatment options were discussed the patient. Ultimately recommended cephalo-medullary nail for the left hip. We discussed unique issues that the patient has including the fact she has an open draining wound and significant cardiopulmonary disease. We discussed risks and benefits of surgery which include but not limited to blood loss, DVTs, PEs, rest damage complex, the risk of anesthesia include loss of life especially for this patient. However patient has been optimized for surgery. We also discussed potential need for transfusion based on her preoperative hemoglobin of 10.5. This likely due to acute on chronic anemia. We also discussed the use of tobacco and how this will affect her outcome. We discussed her ongoing treatment for osteoporosis and how this will need to remain. This likely related to her multiple comorbidities, tobacco use and cachectic health. Patient demonstrates an understanding. Ultimately she wished to proceed she is able to sign informed consent. We will proceed with surgery today. Clindamycin is ordered for antibiotics as patient reports penicillins give her shortness of breath and she already has significant COPD. Patient is n.p.o. [facility] Office:
--- NOTE | 2020-06-13 17:03 | RAD_ITS ---
STUDY: X-RAY - LEFT FEMUR REASON FOR STUDY: Female, 59 years old. Left hip fracture TECHNIQUE: 2 view(s) of the femur. COMPARISON: None. FINDINGS: There is postoperative change from open reduction internal fixation of a fracture of the base of the left femoral neck with intramedullary eusebio and locking fixation screw in place. The distal fracture fragment is held in near-anatomic alignment. Left hip joint is in normal alignment with mild degenerative change. Visualized left hemipelvis is unremarkable. There is subcutaneous gas in soft tissues of the left lateral hip RAD/Femur Min 2 Views IMPRESSION: Postoperative change from ORIF of a basicervical left femoral neck fracture. Electronically Signed: Holger Rogers MD at 2:44 EDT Tel , Service support ,
--- NOTE | 2020-06-13 17:04 | OP.PCM_ITS ---
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 [employer] InterTAN nail 10 mm short nail, 125 degree neck angle 2. [employer] InterTAN lag screw 80 mm 3. [employer] 185 millimeter interlocking screw Brief history operative indications: 59-year-old female with multiple medical comorbidities including osteoporosis fell 3 days ago. After 2 days of left hip pain felt to be a contusion inability to bear weight she presented emergency department left hip intertrochanteric fracture. After extensive discussion including risk and benefits which include but are not limited to blood loss, PEs, DVTs, neurovascular damage, nonunions, malunions and screw cut out patient has elected to proceed with a left cephalo- medullary nail. Procedure: On the date of the procedure the patient's left hip was marked in the preoperative area and patient was taken back to the operating room. Anesthetic was administered and patient was transferred to the table were all bony prominence identified well-padded and the ipsilateral arm was placed across the chest. Patient was then translated down to the perineal post and the operative leg was placed in the boot while the nonoperative leg was lowered and secured. The operative leg was placed in traction and internal rotation and live fluoroscopy was used to verify adequate reduction. The operative leg was then prepped in a sterile fashion with chlorhexidine while the surgeon scrubbed. Upon reentering the room the operative extremity was draped in the standard orthopedic fashion. Skin incision was marked and a timeout was called. Everyone agreed upon the side, the site, the procedure be performed, patient's identity, and antibiotics given. Skin incision was made and the position of the entry guidepin was verified using live fluoroscopy. Once we were satisfied with our position the pin was advanced in the soft tissue protector was placed over the pin. The entry reamer was then advanced into the proximal portion of the femur. A guidewire was placed down the intramedullary canal and fluoroscopy was used to verify that the anterior cortex had not been breached distally as well as satisfactory distal positioning. We then used live fluoroscopy to verify the length of the nail and a [employer] InterTAN short by 10 mm 125 degree hip nail was selected. The nail was then attached to the ec teacher and inserted into the intramedullary canal. The appropriate depth was verified and the skin incision for the lag screw was made. The lag screw guidepin was then placed under live fluoroscopy and when a satisfactory position was obtained the length of the screw was measured and the standard technique to drill for the lag screws was performed. The anti-rotation bar was used. At this time a 80 mm lag screw was selected with its corresponding compression screw. The lag screw was then passed and traction was left off the leg. The compression screw was then passed and the fracture was compressed. The final position of the lag screw was verified under fluoroscopy. Attention was then turned to the distal portion of the nail and the distal interlocking guide technique was used to locate the distal interlocking screw and a 25 mm distal interlocking screw was placed using this technique. Live fluoroscopy was used to verify the position of the interlocking screw and the final position of the hip components. Once we were satisfied with our positioning the wounds were copiously irrigated out with normal saline skin was closed with 2-0 Vicryl and misael for final skin closure. A sterile dressing was placed with Xeroform. Patient was then awakened by anesthesia transferred from the fracture table back to their hospital bed and transferred to the PACU for recovery. Postoperative plan: Patient will be weight-bear as tolerated. DVT prophylaxis per primary service currently on heparin recommend Xarelto on discharge for 2 weeks followed by a course of aspirin. Follow up in the office in 2 weeks. Grafts/Implants Used: [employer] InterTAN nail - Complications No intraoperative complications - Admit VTE Documentation VTE Present on Admission: No VTE Mechan Device Prophylaxis: SCD's, Thigh High CHARO Hose VTE Pharm Prophylaxis ordered?: Yes
--- NOTE | 2020-06-13 18:30 | RAD_ITS ---
STUDY: X-RAY - PELVIS AND LEFT HIP REASON FOR EXAM: Female, 59 years old. POST OP LEFT HIP TECHNIQUE: 2 views of the pelvis and hip. COMPARISON: 06/12/2020. FINDINGS: Patient is status post internal fixation of the left hip. Intramedullary eusebio and compression screw are in place. Alignment is anatomic. Postsurgical changes including soft tissue swelling, gas, and skin misael. Old healed right proximal femoral fracture is noted. Soft tissues and bony structures are otherwise unremarkable. RAD/Hip Min 2 Views (Portable) IMPRESSION: Anatomic alignment status post ORIF. Electronically Signed: Lila Rockwell MD at 19:59 EDT Tel , Service support ,
[2020-06-13] MEDS: Pravastatin 20 MG Tablet PO (21:35)
[2020-06-13] MEDS: Pantoprazole Sodium 40 MG Tablet PO (21:35)
[2020-06-13] MEDS: Senna/Docusate Sodium 1 Tablet 2 TABLET PO (21:35)
[2020-06-13 22:59] LABS: Hematocrit 32.9 % (37-47); Hemoglobin 10.5 g/dL (12.0-15.0)
[2020-06-14] VITALS (8 sets, daily range): BP systolic 124–157; BP diastolic 49–71; PULSE 72–109; RESP 12–18; TEMP 36.8–37; O2SAT 97–100
[2020-06-14] MEDS: Ipratropium/Albuterol Sulfate 3 ML AMPUL.NEB INHALATION ×4 (00:35→20:05)
[2020-06-14] MEDS: oxyCODONE 5 MG Tablet 10 MG PO ×5 (02:30→22:19)
[2020-06-14] MEDS: Morphine 4 MG/ML Syringe IV (05:13)
[2020-06-14] MEDS: Budesonide Respules 0.5 MG/2 ML AMPUL.NEB. INHALATION ×2 (06:51→20:05)
[2020-06-14 06:56] LABS: Absolute Lymphocyte Count 1.31 X10^3/uL (0.83-4.51); Absolute Neutrophil Count 4.1 X10^3/uL (2.0-7.7); Basophil# 0.01 X10^3/uL; Basophil% 0.2 % (0-1); Eosinophil# 0.02 X10^3/uL; Eosinophils% 0.3 % (0-5); Hemoglobin 9.7 g/dL (12.0-15.0); Lymphocyte # 1.31 X10^3/ul (4.0); Lymphocyte % 21.4 % (19-41); Mean Corp Hgb Conc 31.3 g/dL (32-36); Mean Corpuscular Hgb 29.9 pg (27.0-32.0); Mean Corpuscular Volume 95.7 fL (81-99); Mean Platelet Vol. 10.6 fl (6.2-12.0); Monocyte# 0.68 X10^3/uL; Monocyte% 11.1 % (0-10); NRBC Flagged by Analyzer 0 % (0-5); Neutrophil # 4.08 X10^3/uL (2.7-7.7); Neutrophil % 66.7 % (47-70); Platelet Count 185 K/mm3 (150-450); RBC Distribution Width CV 12.2 % (11.6-14.6); RBC Distribution Width SD 42.5 fl (35.1-43.9); Red Blood Count 3.24 M/mm3 (4.2-5.4); White Blood Count 6.1 K/mm3 (4.4-11.0)
[2020-06-14 07:26] LABS: Anion Gap 4 (5-15); BUN 8 mg/dL (7-18); BUN/Creat Ratio 22.7 RATIO (10-20); Calcium,Total 7.9 mg/dL (8.5-10.1); Chloride 111 mmol/L (98-107); Creatinine, Serum 0.35 mg/dL (0.55-1.02); EST Glomerular Filtration Rate 200 mL/min (>60); Est Glom Filt Rate - Afr Amer 242 mL/min (>60); Estimated Creatinine Clearance 111.74 ml/min; Glucose 68 mg/dL (74-106); Potassium 4.1 mmol/L (3.5-5.1); Sodium Level 140 mmol/L (136-145)
--- NOTE | 2020-06-14 07:46 | PN_ITS ---
Patient Problems: Active and Suspected Problems Intertrochanteric fracture of left hip (Acute) Subjective: The patient was seen and examined at the bedside this morning. Events from the last 24 hours have been reviewed. The patient is currently afebrile, hemodynamically stable and maintaining appropriate oxygen saturations on 2 L/min via nasal cannula. The patient underwent successful left cephalo-medullary nail last evening. Her postoperative course was uncomplicated. Objective: The patient's most recent lab work, culture data and imaging studies have all been personally reviewed. - Physical Exam Vitals/I&O's: Vital Signs Temp Pulse Resp BP Pulse Ox 98.5 F 72 18 141/57 H 100 06/14/20 03:23 06/14/20 03:23 06/14/20 03:23 06/14/20 03:23 06/14/20 03:23 Oxygen Flow Rate (L/min) 2 Oxygen Delivery Method Nasal Cannula Weight: 90 lb 2.705 oz Body Mass Index (BMI) 18.2 Intake and Output for Last 24 Hours 06/12/20 06/13/20 06/14/20 23:59 23:59 23:59 Intake Total 300 / 300 2380.5 / 2380.5 454 / 454 Output Total 200 / 400 750 / 1150 950 / 950 Balance 100 / -100 1630.5 / 1230.5 -496 / -496 General: Alert, No apparent distress HEENT: Atraumatic, Normocephalic Oral: No Gingival or Mucosal Lesions/ Ulcerations Neck: Supple, No Nodes, Trachea Midline Lungs: Diminished Cardiovascular: Regular rate, Regular Rhythm Abdomen: Bowel Sounds Present, Soft, Non Tender Extremities: No clubbing, No cyanosis, No edema Musculoskeletal: No Muscle Wasting Lymphatic: No Cervical, Supraclavicular, or Inguinal Adenopathy Neurological: Cranial nerves II-XII grossly intact, Neuro grossly intact Psych/Mental Status: Normal Affect, Appropriate Labs (Last 48 Hours) 06/12/20 06/12/20 06/12/20 11:58 11:58 11:58 WBC 8.3 RBC 4.05 L Hgb 12.1 Hct 36.7 L MCV 90.6 MCH 29.9 MCHC 33.0 RDW Std Deviation 40.3 RDW Coeff of Brittany 12.2 Plt Count 197 MPV 10.1 Immature Gran % (Auto) 0.200 Neut % (Auto) 77.0 H Lymph % (Auto) 12.4 L [place] % (Auto) 9.6 Eos % (Auto) 0.7 Baso % (Auto) 0.1 Absolute Neuts (auto) 6.4 Absolute Lymphs (auto) 1.03 Nucleated RBC % 0 PT 12.9 INR 1.0 APTT 33.7 Sodium 138 Potassium 3.8 Chloride 108 H Carbon Dioxide 25.0 Anion Gap 5 BUN 6 L Creatinine 0.46 L Estim Creat Clear Calc 102.90 Est GFR (MDRD) Af Amer 177 Est GFR (MDRD) Non-Af 146 BUN/Creatinine Ratio 13.0 Glucose 95 Calcium 8.6 Phenytoin Blood Type Antibody Screen 06/13/20 06/13/20 06/13/20 06:00 06:00 06:00 WBC 6.3 RBC 3.52 L Hgb 10.5 L Hct 33.2 L MCV 94.3 MCH 29.8 MCHC 31.6 L RDW Std Deviation 42.7 RDW Coeff of Brittany 12.4 Plt Count 178 MPV 10.5 Immature Gran % (Auto) 0.200 Neut % (Auto) 67.1 Lymph % (Auto) 20.0 [place] % (Auto) 10.7 H Eos % (Auto) 1.8 Baso % (Auto) 0.2 Absolute Neuts (auto) 4.2 Absolute Lymphs (auto) 1.25 Nucleated RBC % 0 PT INR APTT Sodium 138 Potassium 4.0 Chloride 108 H Carbon Dioxide 26.0 Anion Gap 4 L BUN 12 Creatinine 0.42 L Estim Creat Clear Calc 93.15 Est GFR (MDRD) Af Amer 199 Est GFR (MDRD) Non-Af 165 BUN/Creatinine Ratio 28.7 H Glucose 100 Calcium 7.9 L Phenytoin 7.5 L Blood Type Antibody Screen 06/13/20 06/13/20 06/14/20 06:00 22:53 05:20 WBC 6.1 RBC 3.24 L Hgb 10.5 L 9.7 L Hct 32.9 L 31.0 L MCV 95.7 MCH 29.9 MCHC 31.3 L RDW Std Deviation 42.5 RDW Coeff of Brittany 12.2 Plt Count 185 MPV 10.6 Immature Gran % (Auto) 0.300 Neut % (Auto) 66.7 Lymph % (Auto) 21.4 [place] % (Auto) 11.1 H Eos % (Auto) 0.3 Baso % (Auto) 0.2 Absolute Neuts (auto) 4.1 Absolute Lymphs (auto) 1.31 Nucleated RBC % 0 PT INR APTT Sodium Potassium Chloride Carbon Dioxide Anion Gap BUN Creatinine Estim Creat Clear Calc Est GFR (MDRD) Af Amer Est GFR (MDRD) Non-Af BUN/Creatinine Ratio Glucose Calcium Phenytoin Blood Type O POSITIVE Antibody Screen NEGATIVE 06/14/20 05:20 WBC RBC Hgb Hct MCV MCH MCHC RDW Std Deviation RDW Coeff of Brittany Plt Count MPV Immature Gran % (Auto) Neut % (Auto) Lymph % (Auto) [place] % (Auto) Eos % (Auto) Baso % (Auto) Absolute Neuts (auto) Absolute Lymphs (auto) Nucleated RBC % PT INR APTT Sodium 140 Potassium 4.1 Chloride 111 H Carbon Dioxide 25.0 Anion Gap 4 L BUN 8 Creatinine 0.35 L Estim Creat Clear Calc 111.74 Est GFR (MDRD) Af Amer 242 Est GFR (MDRD) Non-Af 200 BUN/Creatinine Ratio 22.7 H Glucose 68 L Calcium 7.9 L Phenytoin Blood Type Antibody Screen Clinical Impression(s) from Imaging Studies Chest X-Ray 06/12/20 12:30 IMPRESSION: Degenerative changes, as described above. No demonstrated acute cardiopulmonary process. Electronically Signed: Layne Sanchez, at 12:56 EDT Tel , Service support , Hip/Pelvis X-Ray 06/12/20 12:30 IMPRESSION: There is mildly displaced intertrochanteric fracture of the left femur. Electronically Signed: Layne Sanchez at 12:58 EDT Tel , Service support , Femur X-Ray 06/13/20 17:03 IMPRESSION: Postoperative change from ORIF of a basicervical left femoral neck fracture. Electronically Signed: Holger Rogers MD at 2:44 EDT Tel , Service support , Hip X-Ray 06/13/20 18:30 IMPRESSION: Anatomic alignment status post ORIF. Electronically Signed: Lila Rockwell MD at 19:59 EDT Tel , Service support , Current Medications Acetaminophen (Tylenol) 500 mg PO Q6H PRN PRN PRN Reason: Pain 1-10 or Fever Albuterol Sulfate (Ventolin Aerosols) 2.5 mg INHALATION Q2H PRN PRN PRN Reason: Shortness of Breath/Wheezing Albuterol/Ipratropium (Duoneb) 3 ml INHALATION Q6H.RT [facility] Last Admin: 06/14/20 06:51 Dose: 3 ml Documented by: Ascorbic Acid (Vitamin C) 500 mg PO DAILY@0800 [facility] Last Admin: 06/13/20 07:17 Dose: Not Given Documented by: Budesonide (Pulmicort Aerosol) 0.5 mg INHALATION Q12H.RT [facility] Last Admin: 06/14/20 06:51 Dose: 0.5 mg Documented by: Cholecalciferol (Vitamin D (25mcg)) 2,000 unit PO DAILY [facility] Last Admin: 06/13/20 07:18 Dose: Not Given Documented by: Cyclobenzaprine HCl (Flexeril) 10 mg PO BID PRN PRN PRN Reason: BACK Spasms Diclofenac Sodium (Voltaren) 75 mg PO BID PRN PRN PRN Reason: BACK PAIN Enteral Nutritional Formula (Ensure Surgery) 237 ml PO TIDCM [facility] Folic Acid (Folic Acid) 1 mg PO BIDCM [facility] Last Admin: 06/13/20 16:34 Dose: Not Given Documented by: Heparin Sodium (Porcine) (Heparin Na) 5,000 unit SC Q12 [facility] Last Admin: 06/13/20 21:37 Dose: Not Given Documented by: Sodium Chloride () 1,000 mls @ 75 mls/hr IV .[id number] [facility] Last Infusion: 06/14/20 05:45 Dose: 75 mls/hr Documented by: Clindamycin Phosphate 600 mg/ (Dextrose) 54 mls @ 100 mls/hr IV Q6H [facility] Stop: 06/14/20 11:33 Last Infusion: 06/14/20 05:45 Dose: Infused Documented by: Lorazepam (Ativan) 0.5 mg PO BID [facility] Last Admin: 06/13/20 21:35 Dose: 0.5 mg Documented by: Morphine Sulfate () 4 mg IV Q3H PRN PRN PRN Reason: Pain Score 6-10/10 Last Admin: 06/14/20 05:13 Dose: 4 mg Documented by: Nicotine (Nicoderm Cq (Pbkc)) 21 mg TRANSDERM. DAILY [facility] Last Admin: 06/13/20 19:30 Dose: 21 mg Documented by: Ondansetron HCl (Zofran) 4 mg IV Q8H PRN PRN PRN Reason: NAUSEA/VOMITING Oxycodone HCl (Oxyir) 10 mg PO Q4H PRN PRN PRN Reason: Pain Score 4-5/10 Last Admin: 06/14/20 02:30 Dose: 10 mg Documented by: Pantoprazole Sodium (Protonix) 40 mg PO QHS [facility] Last Admin: 06/13/20 21:35 Dose: 40 mg Documented by: Paroxetine HCl (Paxil) 20 mg PO DAILY [facility] Last Admin: 06/13/20 08:08 Dose: 20 mg Documented by: Phenytoin Sodium (Dilantin) 100 mg PO BID@0900,1700 [facility] Last Admin: 06/13/20 19:30 Dose: 100 mg Documented by: Pravastatin Sodium (Pravachol) 20 mg PO QHS [facility] Last Admin: 06/13/20 21:35 Dose: 20 mg Documented by: Senna/Docusate Sodium (Senokot-S, Mima-Colace) 2 tablet PO BID [facility] Last Admin: 06/13/20 21:35 Dose: 2 tablet Documented by: Sodium Chloride () 10 - 40 ml IV UD PRN PRN Reason: SALINE FLUSH Last Admin: 06/13/20 01:11 Dose: 10 ml Documented by: Temazepam (Restoril) 15 mg PO QHS PRN PRN PRN Reason: INSOMNIA Medical Necessity - Tobacco Use Smoking Status: Current every day smoker Tobacco Use: Cigarettes Assessment/Plan All Active Problems Intertrochanteric fracture of left hip (Acute) RECOMMENDATIONS: 1. Continue perioperative bronchodilator therapy and scheduled budesonide twice daily. 2. Encourage incentive spirometer use. 3. Start DVT prophylaxis. 4. Early mobilization postoperatively. 5. Supplemental oxygen, if required, to maintain saturations at or above 90%. 6. Given the patient's lack of acute pulmonary needs, will sign off. The patient can be offered follow-up in the pulmonary medicine clinic within 2 weeks of discharge so that baseline PFTs can be obtained. IMPRESSIONS: 1. Questionable history of COPD of unknown severity The patient has never been formally been evaluated by leather scraper, nor has she ever completed pulmonary function studies. Therefore, I cannot definitively say if she truly has underlying obstructive lung disease, and if so, how severe her lung disease truly is. There is no inpatient testing that would allow me to quantify her lung function. However, bearing in mind the extensive nature of her smoking history, it would be reasonable to assume that the patient would be at increased risk for postoperative pulmonary complications, based upon her smoking history alone and the high probability for underlying COPD. Steps recommended perioperatively to minimize risk include incentive spirometry, early mobilization, DVT prophylaxis, perioperative bronchodilators and supplemental oxygen to maintain saturations at or above 90%. The patient should be encouraged to follow-up in the pulmonary medicine clinic after discharge so that baseline PFTs can be obtained and further optimization of her inhaler regimen undertaken. 2. History of tobacco dependency Smoking cessation counseling was provided. Continue nicotine replacement therapy while admitted to the hospital. 3. Left intertrochanteric fracture status post mechanical fall The patient is status post surgical intervention by orthopedic surgery. Continue routine postoperative care. This note was generated with Joystick[employer]ation software. It may contain incorrect words, spelling, and punctuation that were not noted in checking the note before signing. Inpatient E&M: 51577 [facility] Hosp L2
[2020-06-14] MEDS: Ensure Surgery 237 ML LIQUID PO ×3 (08:04→17:07)
[2020-06-14] MEDS: Senna/Docusate Sodium 1 Tablet 2 TABLET PO ×2 (08:04→22:20)
[2020-06-14] MEDS: Folic Acid 1 MG Tablet PO ×2 (08:05→17:08)
[2020-06-14] MEDS: Paroxetine 20 MG Tablet PO (08:05)
[2020-06-14] MEDS: Ascorbic Acid 500 MG Tablet PO (08:05)
[2020-06-14] MEDS: Phenytoin Na 100 MG Capsule PO ×2 (08:06→17:08)
[2020-06-14] MEDS: Heparin Injection (Vial) 5,000 UNIT/ML VIAL 5000 UNIT SC (08:07)
[2020-06-14] MEDS: Acetaminophen 500 MG Tablet PO ×2 (08:10→17:10)
[2020-06-14] MEDS: LORazepam 0.5 MG Tablet PO ×2 (08:10→22:20)
--- NOTE | 2020-06-14 10:16 | PCM.PN.HOSP ---
Patient Problems: Active and Suspected Problems Intertrochanteric fracture of left hip (Acute) Reason for Visit: Follow-up for left intertrochanteric fracture with multiple medical comorbidities Objective: Patient denies worsening of shortness of breath, tachypnea. 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 PT and OT on board. Physical exam Physical exam General: Alert, Oriented x3, Cooperative HEENT: Atraumatic, PERRLA, EOMI, Normocephalic. Oral: No Gingival or Mucosal Lesions/ Ulcerations Neck: Supple, No JVD, Negative Carotid Bruits Lungs: Air entry severely diminished in bilateral lung. Fine expiratory rhonchi present. No wheezing. No tachypnea or hypoxia. Cardiovascular: Regular rate, Regular Rhythm, Normal S1, Normal S2, No murmurs Abdomen: Bowel Sounds Present, Soft, Non Tender, Non-Distended : No renal angle tenderness. No suprapubic tenderness. Extremities: No edema, Capillary Refill Less than 3 Seconds Skin: Small ulcer present on the left leg with chronic purulent discharge; present since admission. Dressing is done. Musculoskeletal: Left hip surgical dressing is dry. No bleeding or hematoma. Neurological: Cranial nerves II-XII grossly intact, Deep Tendon Reflexes 2+/4 and Symmetrical, Neuro grossly intact Psych/Mental Status: Normal Affect, Appropriate. Vitals/I&O's: Vital Signs Temp Pulse Resp BP Pulse Ox 98.2 F 73 16 128/56 H 98 06/14/20 08:14 06/14/20 08:14 06/14/20 08:14 06/14/20 08:14 06/14/20 08:14 Oxygen Flow Rate (L/min) 2 Oxygen Delivery Method Nasal Cannula Weight: 90 lb 2.705 oz Body Mass Index (BMI) 18.2 Intake and Output for Last 24 Hours 06/12/20 06/13/20 06/14/20 23:59 23:59 23:59 Intake Total 300 / 300 2380.5 / 2380.5 681.5 / 681.5 Output Total 200 / 400 750 / 1150 950 / 950 Balance 100 / -100 1630.5 / 1230.5 -268.5 / -268.5 Laboratory Results 06/13/20 22:53: Hgb 10.5 L, Hct 32.9 L 06/14/20 05:20: WBC 6.1, RBC 3.24 L, Hgb 9.7 L, Hct 31.0 L, MCV 95.7, MCH 29.9, MCHC 31.3 L, RDW Std Deviation 42.5, RDW Coeff of Brittany 12.2, Plt Count 185, MPV 10.6, Immature Gran % (Auto) 0.300, Neut % (Auto) 66.7, Lymph % (Auto) 21.4, [place] % (Auto) 11.1 H, Eos % (Auto) 0.3, Baso % (Auto) 0.2, Absolute Neuts (auto) 4.1, Absolute Lymphs (auto) 1.31, Nucleated RBC % 0 06/14/20 05:20: Sodium 140, Potassium 4.1, Chloride 111 H, Carbon Dioxide 25.0, Anion Gap 4 L, BUN 8, Creatinine 0.35 L, Estim Creat Clear Calc 111.74, Est GFR (MDRD) Af Amer 242, Est GFR (MDRD) Non-Af 200, BUN/Creatinine Ratio 22.7 H, Glucose 68 L, Calcium 7.9 L Current Medications Acetaminophen (Tylenol) 500 mg PO Q6H PRN PRN PRN Reason: Pain 1-10 or Fever Last Admin: 06/14/20 08:10 Dose: 500 mg Documented by: Albuterol Sulfate (Ventolin Aerosols) 2.5 mg INHALATION Q2H PRN PRN PRN Reason: Shortness of Breath/Wheezing Albuterol/Ipratropium (Duoneb) 3 ml INHALATION Q6H.RT [facility] Last Admin: 06/14/20 06:51 Dose: 3 ml Documented by: Ascorbic Acid (Vitamin C) 500 mg PO DAILY@0800 [facility] Last Admin: 06/14/20 08:05 Dose: 500 mg Documented by: Budesonide (Pulmicort Aerosol) 0.5 mg INHALATION Q12H.RT [facility] Last Admin: 06/14/20 06:51 Dose: 0.5 mg Documented by: Cholecalciferol (Vitamin D (25mcg)) 2,000 unit PO DAILY [facility] Last Admin: 06/14/20 08:05 Dose: 2,000 unit Documented by: Cyclobenzaprine HCl (Flexeril) 10 mg PO BID PRN PRN PRN Reason: BACK Spasms Diclofenac Sodium (Voltaren) 75 mg PO BID PRN PRN PRN Reason: BACK PAIN Enteral Nutritional Formula (Ensure Surgery) 237 ml PO TIDCM [facility] Last Admin: 06/14/20 08:04 Dose: 237 ml Documented by: Folic Acid (Folic Acid) 1 mg PO BIDCM [facility] Last Admin: 06/14/20 08:05 Dose: 1 mg Documented by: Heparin Sodium (Porcine) (Heparin Na) 5,000 unit SC Q12 [facility] Last Admin: 06/14/20 08:07 Dose: 5,000 unit Documented by: Clindamycin Phosphate 600 mg/ (Dextrose) 54 mls @ 100 mls/hr IV Q6H [facility] Stop: 06/14/20 11:33 Last Infusion: 06/14/20 05:45 Dose: Infused Documented by: Lorazepam (Ativan) 0.5 mg PO BID [facility] Last Admin: 06/14/20 08:10 Dose: 0.5 mg Documented by: Morphine Sulfate () 4 mg IV Q3H PRN PRN PRN Reason: Pain Score 6-10/10 Last Admin: 06/14/20 05:13 Dose: 4 mg Documented by: Nicotine (Nicoderm Cq (Pbkc)) 21 mg TRANSDERM. DAILY [facility] Last Admin: 06/14/20 08:09 Dose: 21 mg Documented by: Ondansetron HCl (Zofran) 4 mg IV Q8H PRN PRN PRN Reason: NAUSEA/VOMITING Oxycodone HCl (Oxyir) 10 mg PO Q4H PRN PRN PRN Reason: Pain Score 4-5/10 Last Admin: 06/14/20 08:10 Dose: 10 mg Documented by: Pantoprazole Sodium (Protonix) 40 mg PO QHS [facility] Last Admin: 06/13/20 21:35 Dose: 40 mg Documented by: Paroxetine HCl (Paxil) 20 mg PO DAILY [facility] Last Admin: 06/14/20 08:05 Dose: 20 mg Documented by: Phenytoin Sodium (Dilantin) 100 mg PO BID@0900,1700 [facility] Last Admin: 06/14/20 08:06 Dose: 100 mg Documented by: Pravastatin Sodium (Pravachol) 20 mg PO QHS [facility] Last Admin: 06/13/20 21:35 Dose: 20 mg Documented by: Senna/Docusate Sodium (Senokot-S, Mima-Colace) 2 tablet PO BID [facility] Last Admin: 06/14/20 08:04 Dose: 2 tablet Documented by: Sodium Chloride () 10 - 40 ml IV UD PRN PRN Reason: SALINE FLUSH Last Admin: 06/13/20 01:11 Dose: 10 ml Documented by: Temazepam (Restoril) 15 mg PO QHS PRN PRN PRN Reason: INSOMNIA STROKE Vital Signs/Narrative: Vital Signs Temp Pulse Resp BP Pulse Ox 06/14/20 08:14 98.2 F 73 16 128/56 H 98 06/14/20 06:51 87 16 97 Medical Necessity - Tobacco Use Smoking Status: Current every day smoker Tobacco Use: Cigarettes Assessment/Plan All Active Problems Intertrochanteric fracture of left hip (Acute) This 59-year-old female with extensive history of smoking, COPD and other comorbidities admitted with fall and consequent left hip fracture 1. Perioperative management of left intertroch pathological fracture-: Clinically, she fulfills criteria for pathological fracture as she fell down from less than her standing height and she has history of rheumatoid arthritis. Dr. Reyes is been consulted. Continue vitamin D and alendronate. Patient denies cardiac disease including CHF, coronary artery disease/VT or arrhythmia. EKG reviewed normal sinus rhythm at 97 bpm. No significant change from previous EKG of April 2011. 06/14: Mild decrease in H&H from 10.5-9.7, not clinically significant. PT and OT. VTE prophylaxis changed to Lovenox 40 subcu daily. Ideally, NOACs patient is on phenytoin which has significant interaction with Eliquis/Xarelto. PT and OT. 2. COPD with unknown severity- no acute exacerbation. NSQIP surgical risk calculation was done. She has serious complication about 17.3%, any complication 17.6%, risk of pneumonia 4.1% and readmission 14% above average. Discussed with the telecommunications support. School Operations Manager consult reviewed and appreciated. On bronchodilator scheduled, reviewed and , incentive spirometry. Patient is high risk for perioperative pulmonary as well as other complication in view of extensive history of smoking. Continue bronchodilator incentive spirometry. 3. Nicotine abuse: Patient smokes 1.5 pack/day of cigarettes and also smokes pipes. Nicotine patch. Smoking cessation counseling done. 4. Chronic seizure disorder: Exact classification, severity and etiology unclear. Serum phenytoin level is low 7.5 but it may be low secondary to low nutritional/albumin state. Liver chemistry ordered. Patient clinically did not had any seizure like symptoms or signs. Continue phenytoin 100 mg twice daily. 5. Rheumatoid arthritis: On norco, voltaren, folate 5. GERD - continue PPI 6. Anxiety/Depression - ativan, paxil 7. Dyslipidemia- statin VTE prophylaxis: On Lovenox Discharge planning: Discussed with employment case manager. Total time of the visit including total time spent in counseling or coordination of care, (more than 50% of the total time, spent in obtaining medical information from nurses and other ancillary care providers), discussion with executive talent acquisition consultant, review of labs and imaging is 30 minutes. Clinical Impression(s) from Imaging Studies Chest X-Ray 06/12/20 12:30 IMPRESSION: Degenerative changes, as described above. No demonstrated acute cardiopulmonary process. Hip/Pelvis X-Ray 06/12/20 12:30 IMPRESSION: There is mildly displaced intertrochanteric fracture of the left femur. Hip X-Ray 06/13/20 18:30 IMPRESSION: Anatomic alignment status post ORIF. Active Medications Acetaminophen (Tylenol) 500 mg PO Q6H PRN PRN PRN Reason: Pain 1-10 or Fever Last Admin: 06/14/20 08:10 Dose: 500 mg Documented by: Albuterol Sulfate (Ventolin Aerosols) 2.5 mg INHALATION Q2H PRN PRN PRN Reason: Shortness of Breath/Wheezing Albuterol/Ipratropium (Duoneb) 3 ml INHALATION Q6H.RT [facility] Last Admin: 06/14/20 06:51 Dose: 3 ml Documented by: Ascorbic Acid (Vitamin C) 500 mg PO DAILY@0800 [facility] Last Admin: 06/14/20 08:05 Dose: 500 mg Documented by: Budesonide (Pulmicort Aerosol) 0.5 mg INHALATION Q12H.RT [facility] Last Admin: 06/14/20 06:51 Dose: 0.5 mg Documented by: Cholecalciferol (Vitamin D (25mcg)) 2,000 unit PO DAILY [facility] Last Admin: 06/14/20 08:05 Dose: 2,000 unit Documented by: Cyclobenzaprine HCl (Flexeril) 10 mg PO BID PRN PRN PRN Reason: BACK Spasms Diclofenac Sodium (Voltaren) 75 mg PO BID PRN PRN PRN Reason: BACK PAIN Enoxaparin Sodium (Lovenox) 40 mg SC DAILY [facility] Enteral Nutritional Formula (Ensure Surgery) 237 ml PO TIDCM [facility] Last Admin: 06/14/20 08:04 Dose: 237 ml Documented by: Folic Acid (Folic Acid) 1 mg PO BIDCM [facility] Last Admin: 06/14/20 08:05 Dose: 1 mg Documented by: Clindamycin Phosphate 600 mg/ (Dextrose) 54 mls @ 100 mls/hr IV Q6H [facility] Stop: 06/14/20 11:33 Last Admin: 06/14/20 10:30 Dose: 100 mls/hr Documented by: Lorazepam (Ativan) 0.5 mg PO BID [facility] Last Admin: 06/14/20 08:10 Dose: 0.5 mg Documented by: Morphine Sulfate () 4 mg IV Q3H PRN PRN PRN Reason: Pain Score 6-10/10 Last Admin: 06/14/20 05:13 Dose: 4 mg Documented by: Nicotine (Nicoderm Cq (Pbkc)) 21 mg TRANSDERM. DAILY [facility] Last Admin: 06/14/20 08:09 Dose: 21 mg Documented by: Ondansetron HCl (Zofran) 4 mg IV Q8H PRN PRN PRN Reason: NAUSEA/VOMITING Oxycodone HCl (Oxyir) 10 mg PO Q4H PRN PRN PRN Reason: Pain Score 4-5/10 Last Admin: 06/14/20 08:10 Dose: 10 mg Documented by: Pantoprazole Sodium (Protonix) 40 mg PO QHS [facility] Last Admin: 06/13/20 21:35 Dose: 40 mg Documented by: Paroxetine HCl (Paxil) 20 mg PO DAILY [facility] Last Admin: 06/14/20 08:05 Dose: 20 mg Documented by: Phenytoin Sodium (Dilantin) 100 mg PO BID@0900,1700 [facility] Last Admin: 06/14/20 08:06 Dose: 100 mg Documented by: Pravastatin Sodium (Pravachol) 20 mg PO QHS [facility] Last Admin: 06/13/20 21:35 Dose: 20 mg Documented by: Senna/Docusate Sodium (Senokot-S, Mima-Colace) 2 tablet PO BID [facility] Last Admin: 06/14/20 08:04 Dose: 2 tablet Documented by: Sodium Chloride () 10 - 40 ml IV UD PRN PRN Reason: SALINE FLUSH Last Admin: 06/13/20 01:11 Dose: 10 ml Documented by: Temazepam (Restoril) 15 mg PO QHS PRN PRN PRN Reason: INSOMNIA Inpatient E&M: 83844 [facility] Hosp L2
--- NOTE | 2020-06-14 14:49 | CASEMGMT ---
Social Work Pt is requesting to return home at discharge and P.T. confirms that pt can return home with home health vs. outpt services. SW met with pt in room and introduced self and role to pt. Pt confirms she would like to return home and would prefer home health. SW presented home health options and pt has no preference. Pt will need a wheeled walker at time of discharge. Referrals made to both [facility] and [facility] for PT/OT, awaiting determination. Referral made to [facility] for walker and they will deliver to pt room. Plan: Home with home health and walker JEANETTE Orantes
[2020-06-14] MEDS: Enoxaparin 40 MG/0.4 ML Syringe SC (17:07)
--- NOTE | 2020-06-14 18:00 | PCM.PN.ORT ---
Patient Problems: Active and Suspected Problems Intertrochanteric fracture of left hip (Acute) Subjective: this progress note is for 06/14/2020 Patient was seen and examined separately. She was doing well she was called for. She's done some ambulation with physical therapy. Patient further reveals today that she uses a walker on a regular basis however she recently moved and does not have a walker anymore. Walker has been prescribed. She will continue with weightbearing as tolerated. Pain is under control. Pulmonology is assessed her COPD. Overall orthopedic issues are stable. Objective: postoperative x-rays show stable well reduced left intra-articular fracture status post a fall enjoy nail. - Physical Exam Vitals/I&O's: Vital Signs Temp Pulse Resp BP Pulse Ox 98.8 F 94 18 159/77 H 95 06/15/20 02:30 06/15/20 02:30 06/15/20 02:30 06/15/20 02:30 06/15/20 02:30 Oxygen Flow Rate (L/min) 3 Oxygen Delivery Method Room Air Weight: 90 lb 2.705 oz Body Mass Index (BMI) 18.2 Intake and Output for Last 24 Hours 06/13/20 06/14/20 06/15/20 23:59 23:59 23:59 Intake Total 2380.5 / 2380.5 1335.5 / 1635.5 650 / 650 Output Total 750 / 1150 950 / 950 Balance 1630.5 / 1230.5 385.5 / 685.5 650 / 650 General: Alert, Oriented x3, Cooperative Extremities: - - left lower extremity: dressings clean dry and intact. calves are soft and supple. Neurovascular intact distally. Laboratory Results 06/15/20 05:12: WBC 6.1, RBC 3.00 L, Hgb 9.1 L, Hct 28.4 L, MCV 94.7, MCH 30.3, MCHC 32.0, RDW Std Deviation 42.3, RDW Coeff of Brittany 12.2, Plt Count 197, MPV 10.0, Immature Gran % (Auto) 0.200, Neut % (Auto) 72.0 H, Lymph % (Auto) 17.4 L, [place] % (Auto) 9.4, Eos % (Auto) 0.8, Baso % (Auto) 0.2, Absolute Neuts (auto) 4.4, Absolute Lymphs (auto) 1.06, Nucleated RBC % 0 06/15/20 05:12: Sodium 139, Potassium 3.5, Chloride 105, Carbon Dioxide 29.0, Anion Gap 5, BUN 8, Creatinine 0.48 L, Estim Creat Clear Calc 81.48, Est GFR (MDRD) Af Amer 169, Est GFR (MDRD) Non-Af 140, BUN/Creatinine Ratio 16.6, Glucose 130 H, Calcium 7.9 L, Total Bilirubin 0.20, Direct Bilirubin 0.09, AST 22, ALT 64 H, Alkaline Phosphatase 146 H, Total Protein 5.8 L, Albumin 2.3 L, Globulin 3.5 Current Medications Acetaminophen (Tylenol) 500 mg PO Q6H PRN PRN PRN Reason: Pain 1-10 or Fever Last Admin: 06/14/20 17:10 Dose: 500 mg Documented by: Albuterol Sulfate (Ventolin Aerosols) 2.5 mg INHALATION Q2H PRN PRN PRN Reason: Shortness of Breath/Wheezing Albuterol/Ipratropium (Duoneb) 3 ml INHALATION Q6H.RT [facility] Last Admin: 06/15/20 06:56 Dose: 3 ml Documented by: Ascorbic Acid (Vitamin C) 500 mg PO DAILY@0800 [facility] Last Admin: 06/14/20 08:05 Dose: 500 mg Documented by: Budesonide (Pulmicort Aerosol) 0.5 mg INHALATION Q12H.RT [facility] Last Admin: 06/15/20 06:56 Dose: 0.5 mg Documented by: Cholecalciferol (Vitamin D (25mcg)) 5,000 unit PO DAILY [facility] Cyclobenzaprine HCl (Flexeril) 10 mg PO BID PRN PRN PRN Reason: BACK Spasms Diclofenac Sodium (Voltaren) 75 mg PO BID PRN PRN PRN Reason: BACK PAIN Enoxaparin Sodium (Lovenox) 40 mg SC DAILY [facility] Last Admin: 06/14/20 17:07 Dose: 40 mg Documented by: Enteral Nutritional Formula (Ensure Surgery) 237 ml PO TIDCM [facility] Last Admin: 06/14/20 17:07 Dose: 237 ml Documented by: Folic Acid (Folic Acid) 1 mg PO BIDCM [facility] Last Admin: 06/14/20 17:08 Dose: 1 mg Documented by: Lorazepam (Ativan) 0.5 mg PO BID [facility] Last Admin: 06/14/20 22:20 Dose: 0.5 mg Documented by: Morphine Sulfate () 4 mg IV Q3H PRN PRN PRN Reason: Pain Score 6-10/10 Last Admin: 06/14/20 05:13 Dose: 4 mg Documented by: Nicotine (Nicoderm Cq (Pbkc)) 21 mg TRANSDERM. DAILY [facility] Last Admin: 06/14/20 08:09 Dose: 21 mg Documented by: Ondansetron HCl (Zofran) 4 mg IV Q8H PRN PRN PRN Reason: NAUSEA/VOMITING Oxycodone HCl (Oxyir) 10 mg PO Q4H PRN PRN PRN Reason: Pain Score 4-10/10 Last Admin: 06/15/20 04:05 Dose: 10 mg Documented by: Pantoprazole Sodium (Protonix) 40 mg PO QHS [facility] Last Admin: 06/14/20 22:21 Dose: 40 mg Documented by: Paroxetine HCl (Paxil) 20 mg PO DAILY [facility] Last Admin: 06/14/20 08:05 Dose: 20 mg Documented by: Phenytoin Sodium (Dilantin) 100 mg PO BID@0900,1700 [facility] Last Admin: 06/14/20 17:08 Dose: 100 mg Documented by: Pravastatin Sodium (Pravachol) 20 mg PO QHS [facility] Last Admin: 06/14/20 22:20 Dose: 20 mg Documented by: Senna/Docusate Sodium (Senokot-S, Mima-Colace) 2 tablet PO BID [facility] Last Admin: 06/14/20 22:20 Dose: 2 tablet Documented by: Sodium Chloride () 10 - 40 ml IV UD PRN PRN Reason: SALINE FLUSH Last Admin: 06/13/20 01:11 Dose: 10 ml Documented by: Temazepam (Restoril) 15 mg PO QHS PRN PRN PRN Reason: INSOMNIA Medical Necessity - Tobacco Use Smoking Status: Current every day smoker Tobacco Use: Cigarettes Assessment/Plan All Active Problems Intertrochanteric fracture of left hip (Acute) Postop day one left hip cephalo-medullary nail 1. PT: Weightbearing as tolerated, activity as tolerated 2. DVT prophylaxis: Per primary service recommend Xarelto 10 mg daily on discharge for 2 weeks followed by a course of aspirin therapy 3. Acute on chronic anemia: Exacerbated by hip fracture and surgery 4. Pain control: Pain under control continue per primary service. 5. Disposition: Patient orthopedically stable. Rachid can be removed 2 weeks postoperatively. Patient's medical condition and orthopedic injuries will likely require discharge to a skilled facility. Recommend Xarelto for 2 weeks postoperatively followed by 2 weeks of baby aspirin twice a day. Follow-up in the office in 2 weeks with x-rays and wound check.
[2020-06-14] MEDS: Pravastatin 20 MG Tablet PO (22:20)
[2020-06-14] MEDS: Pantoprazole Sodium 40 MG Tablet PO (22:21)
[2020-06-15 01:28] VITALS: PULSE 101; RESP 15
[2020-06-15] MEDS: Ipratropium/Albuterol Sulfate 3 ML AMPUL.NEB INHALATION ×3 (01:28→13:50)
[2020-06-15 02:30] VITALS: BP 159/77; PULSE 94; RESP 18; TEMP 37.1; O2SAT 95
[2020-06-15] MEDS: oxyCODONE 5 MG Tablet 10 MG PO ×3 (04:05→12:55)
[2020-06-15 05:34] LABS: Absolute Lymphocyte Count 1.06 X10^3/uL (0.83-4.51); Absolute Neutrophil Count 4.4 X10^3/uL (2.0-7.7); Basophil# 0.01 X10^3/uL; Basophil% 0.2 % (0-1); Eosinophil# 0.05 X10^3/uL; Eosinophils% 0.8 % (0-5); Hematocrit 28.4 % (37-47); Hemoglobin 9.1 g/dL (12.0-15.0); Lymphocyte # 1.06 X10^3/ul (4.0); Lymphocyte % 17.4 % (19-41); Mean Corpuscular Hgb 30.3 pg (27.0-32.0); Mean Corpuscular Volume 94.7 fL (81-99); Monocyte# 0.57 X10^3/uL; Monocyte% 9.4 % (0-10); NRBC Flagged by Analyzer 0 % (0-5); Neutrophil # 4.39 X10^3/uL (2.7-7.7); Platelet Count 197 K/mm3 (150-450); RBC Distribution Width CV 12.2 % (11.6-14.6); RBC Distribution Width SD 42.3 fl (35.1-43.9); White Blood Count 6.1 K/mm3 (4.4-11.0)
[2020-06-15 05:52] LABS: AST(SGOT) 22 U/L (15-37); Alanine Aminotransfer ALT/SGPT 64 U/L (13-56); Albumin, Serum 2.3 g/dL (3.2-5.0); Alkaline Phosphatase 146 U/L (45-117); Anion Gap 5 (5-15); BUN 8 mg/dL (7-18); BUN/Creat Ratio 16.6 RATIO (10-20); Bilirubin, Direct 0.09 mg/dL (0.00-0.30); Calcium,Total 7.9 mg/dL (8.5-10.1); Chloride 105 mmol/L (98-107); Creatinine, Serum 0.48 mg/dL (0.55-1.02); EST Glomerular Filtration Rate 140 mL/min (>60); Est Glom Filt Rate - Afr Amer 169 mL/min (>60); Estimated Creatinine Clearance 81.48 ml/min; Globulin 3.5 g/dL (2.2-4.2); Glucose 130 mg/dL (74-106); Potassium 3.5 mmol/L (3.5-5.1); Protein, Total 5.8 g/dL (6.4-8.2); Sodium Level 139 mmol/L (136-145)
[2020-06-15 06:56] VITALS: PULSE 90; RESP 16; O2SAT 96
[2020-06-15] MEDS: Budesonide Respules 0.5 MG/2 ML AMPUL.NEB. INHALATION (06:56)
--- NOTE | 2020-06-15 07:42 | PN.ORTHO_ITS ---
Patient Problems: Active and Suspected Problems Intertrochanteric fracture of left hip (Acute) Subjective: The patient was sitting in bed upon examination. Patient denies any chest pain, shortness of breath, dizziness, lightheadedness, nausea or vomiting, or calf pain. Pain is controlled on medications. No adverse overnight events. Patient does complain of pain with her left hip but pain is controlled. Her plan is to go home with home health possibly today. Objective: Vital signs stable and afebrile. Patient is able to plantarflex and dorsiflex actively. Sensation is intact to light touch to saphenous, sural, superficial and deep peroneal, and tibial distribution. Dressing is clean dry and intact. Negative Homans bilaterally, negative signs and symptoms of DVT. - Physical Exam Vitals/I&O's: Vital Signs Temp Pulse Resp BP Pulse Ox 98.8 F 94 18 159/77 H 95 06/15/20 02:30 06/15/20 02:30 06/15/20 02:30 06/15/20 02:30 06/15/20 02:30 Oxygen Flow Rate (L/min) 3 Oxygen Delivery Method Room Air Weight: 40.9 kg Body Mass Index (BMI) 18.2 Intake and Output for Last 24 Hours 06/13/20 06/14/20 06/15/20 23:59 23:59 23:59 Intake Total 2380.5 / 2380.5 1335.5 / 1635.5 650 / 650 Output Total 750 / 1150 950 / 950 Balance 1630.5 / 1230.5 385.5 / 685.5 650 / 650 General: Alert, Oriented x3, Cooperative, No apparent distress Laboratory Results 06/15/20 05:12: WBC 6.1, RBC 3.00 L, Hgb 9.1 L, Hct 28.4 L, MCV 94.7, MCH 30.3, MCHC 32.0, RDW Std Deviation 42.3, RDW Coeff of Brittany 12.2, Plt Count 197, MPV 10.0, Immature Gran % (Auto) 0.200, Neut % (Auto) 72.0 H, Lymph % (Auto) 17.4 L, [place] % (Auto) 9.4, Eos % (Auto) 0.8, Baso % (Auto) 0.2, Absolute Neuts (auto) 4.4, Absolute Lymphs (auto) 1.06, Nucleated RBC % 0 06/15/20 05:12: Sodium 139, Potassium 3.5, Chloride 105, Carbon Dioxide 29.0, Anion Gap 5, BUN 8, Creatinine 0.48 L, Estim Creat Clear Calc 81.48, Est GFR (MDRD) Af Amer 169, Est GFR (MDRD) Non-Af 140, BUN/Creatinine Ratio 16.6, Glucose 130 H, Calcium 7.9 L, Total Bilirubin 0.20, Direct Bilirubin 0.09, AST 22, ALT 64 H, Alkaline Phosphatase 146 H, Total Protein 5.8 L, Albumin 2.3 L, Globulin 3.5 Current Medications Acetaminophen (Tylenol) 500 mg PO Q6H PRN PRN PRN Reason: Pain 1-10 or Fever Last Admin: 06/14/20 17:10 Dose: 500 mg Documented by: Albuterol Sulfate (Ventolin Aerosols) 2.5 mg INHALATION Q2H PRN PRN PRN Reason: Shortness of Breath/Wheezing Albuterol/Ipratropium (Duoneb) 3 ml INHALATION Q6H.RT [facility] Last Admin: 06/15/20 06:56 Dose: 3 ml Documented by: Ascorbic Acid (Vitamin C) 500 mg PO DAILY@0800 [facility] Last Admin: 06/14/20 08:05 Dose: 500 mg Documented by: Budesonide (Pulmicort Aerosol) 0.5 mg INHALATION Q12H.RT [facility] Last Admin: 06/15/20 06:56 Dose: 0.5 mg Documented by: Cholecalciferol (Vitamin D (25mcg)) 5,000 unit PO DAILY [facility] Cyclobenzaprine HCl (Flexeril) 10 mg PO BID PRN PRN PRN Reason: BACK Spasms Diclofenac Sodium (Voltaren) 75 mg PO BID PRN PRN PRN Reason: BACK PAIN Enoxaparin Sodium (Lovenox) 40 mg SC DAILY [facility] Last Admin: 06/14/20 17:07 Dose: 40 mg Documented by: Enteral Nutritional Formula (Ensure Surgery) 237 ml PO TIDCM [facility] Last Admin: 06/14/20 17:07 Dose: 237 ml Documented by: Folic Acid (Folic Acid) 1 mg PO BIDCM [facility] Last Admin: 06/14/20 17:08 Dose: 1 mg Documented by: Lorazepam (Ativan) 0.5 mg PO BID [facility] Last Admin: 06/14/20 22:20 Dose: 0.5 mg Documented by: Morphine Sulfate () 4 mg IV Q3H PRN PRN PRN Reason: Pain Score 6-10/10 Last Admin: 06/14/20 05:13 Dose: 4 mg Documented by: Nicotine (Nicoderm Cq (Pbkc)) 21 mg TRANSDERM. DAILY [facility] Last Admin: 06/14/20 08:09 Dose: 21 mg Documented by: Ondansetron HCl (Zofran) 4 mg IV Q8H PRN PRN PRN Reason: NAUSEA/VOMITING Oxycodone HCl (Oxyir) 10 mg PO Q4H PRN PRN PRN Reason: Pain Score 4-10/10 Last Admin: 06/15/20 04:05 Dose: 10 mg Documented by: Pantoprazole Sodium (Protonix) 40 mg PO QHS [facility] Last Admin: 06/14/20 22:21 Dose: 40 mg Documented by: Paroxetine HCl (Paxil) 20 mg PO DAILY [facility] Last Admin: 06/14/20 08:05 Dose: 20 mg Documented by: Phenytoin Sodium (Dilantin) 100 mg PO BID@0900,1700 [facility] Last Admin: 06/14/20 17:08 Dose: 100 mg Documented by: Pravastatin Sodium (Pravachol) 20 mg PO QHS [facility] Last Admin: 06/14/20 22:20 Dose: 20 mg Documented by: Senna/Docusate Sodium (Senokot-S, Mima-Colace) 2 tablet PO BID [facility] Last Admin: 06/14/20 22:20 Dose: 2 tablet Documented by: Sodium Chloride () 10 - 40 ml IV UD PRN PRN Reason: SALINE FLUSH Last Admin: 06/13/20 01:11 Dose: 10 ml Documented by: Temazepam (Restoril) 15 mg PO QHS PRN PRN PRN Reason: INSOMNIA Medical Necessity - Tobacco Use Smoking Status: Current every day smoker Tobacco Use: Cigarettes Assessment/Plan All Active Problems Intertrochanteric fracture of left hip (Acute) 1. S/P left hip nail POD #2 2. Continue Pain Medications: Tylenol and oxycodone. 3. DVT Prophylaxis: Per primary medicine. She is currently on Lovenox 4. PT/OT: Weightbearing as tolerated left lower extremity with walker 5. Continue postoperative medical management per medicine 6. Encouraged Incentive Spirometry 7. Disposition: Orthopedically stable, okay for discharge when medically stable. Patient will require 2-week follow-up with [facility] with Dr. Roberto Reyes for x-rays and incision check. Dressings should remain on for 5 days. Patient can shower with the dressing. Patient will be weightbearing as tolerated. Continue pain medications per edicine as well as DVT prophylaxis. Patient will require continued physical therapy for the left hip. If there are any concerns or complications please contact orthopedics.
[2020-06-15 08:32] VITALS: BP 152/77; PULSE 96; RESP 18; TEMP 36.9; O2SAT 97
[2020-06-15] MEDS: Ensure Surgery 237 ML LIQUID PO (08:35)
[2020-06-15] MEDS: Senna/Docusate Sodium 1 Tablet 2 TABLET PO (08:35)
[2020-06-15] MEDS: Ascorbic Acid 500 MG Tablet PO (08:36)
[2020-06-15] MEDS: Folic Acid 1 MG Tablet PO (08:36)
[2020-06-15] MEDS: Enoxaparin 40 MG/0.4 ML Syringe SC (08:37)
[2020-06-15] MEDS: Phenytoin Na 100 MG Capsule PO (08:37)
[2020-06-15] MEDS: Paroxetine 20 MG Tablet PO (08:37)
[2020-06-15] MEDS: LORazepam 0.5 MG Tablet PO (08:39)
--- NOTE | 2020-06-15 09:35 | DCINST_ITS ---
- Discharge Diagnoses Current Active Problems: Current Active and Chronic Problems Intertrochanteric fracture of left hip (Acute) COPD (chronic obstructive pulmonary disease) (Chronic) Seizure (Chronic) HLD (hyperlipidemia) (Chronic) You will use the following diet at home:: Regular Your food should be the consistency of: Regular Discharge Activity: May Not Drive - while taking norco Weight Bearing Status: Weight bearing as tolerated Call your doctor if you observe: Fever of 101 or Higher, Change in Color, Inability to urinate, Shortness of breath, Dizziness, Fainting spells, Swelling in the ankles, Chest pain, Prolonged hiccoughing, Calf discomfort, Uncontrolled pain Allergies/Adverse Reactions: Allergies Penicillins Allergy (Severe, Verified 06/13/20 16:43) Shortness of breath amoxicillin Allergy (Verified 06/12/20 14:33) Hives aspirin Adverse Reaction (Verified 06/12/20 14:33) PT UNSURE OF REACTION Medications to take at Discharge Alendronate Sodium [Fosamax] 70 mg PO SA 12/22/16 Ipratropium/Albuterol Respimat [Combivent Respimat Inhal [place]] 1 puff INHALATION 4X/DAY 12/22/16 Lorazepam [Ativan] 0.5 mg PO BID 12/22/16 Omeprazole [Prilosec] 40 mg PO QHS 12/22/16 Phenytoin Na [Dilantin] 100 mg PO BID@0900,1700 12/22/16 Acetaminophen 500 mg PO Q6H PRN PRN 06/12/20 Aclidinium [place] [Tudorza Pressair] 400 mcg IH BID 06/12/20 Ascorbic Acid [Vitamin C] 500 mg PO DAILY 06/12/20 Benzonatate 100 mg PO DAILY PRN 06/12/20 Cyclobenzaprine HCl 10 mg PO BID PRN PRN 06/12/20 Diclofenac [Voltaren] 75 mg PO BID PRN PRN 06/12/20 Fluticasone Propionate [Flovent Diskus] 2 puff INHALATION BID 06/12/20 Folic Acid 1 mg PO BID 06/12/20 Hydrocodone/Acetaminophen [[place] 5-325 Tablet] 1 tab PO TID PRN PRN 06/12/20 Loratadine 10 mg PO DAILY 06/12/20 Multivitamin with Folic Acid [Thera Tablet] 400 mcg PO DAILY 06/12/20 Paroxetine [Paxil] 20 mg PO DAILY 06/12/20 Pravastatin [Pravachol] 20 mg PO QHS 06/12/20 Cholecalciferol (VIT D3) [Vitamin D3] 5,000 unit PO DAILY tablet 06/15/20 Enoxaparin [Lovenox] 40 mg SUBCUT DAILY #21 syringe 06/15/20 Nicotine [Nicoderm Cq] 21 mg TRANSDERM. DAILY #30 patch 06/15/20 The following prescriptions were given: Enoxaparin [Lovenox] 40 mg SUBCUT DAILY #21 syringe Transmission Status: Pending to [facility] #30 Nicotine [Nicoderm Cq] 21 mg TRANSDERM. DAILY #30 patch Transmission Status: Pending to [facility] #30 Primary Care Physician: Care Physician,No Primary [Primary Care Provider] - Please follow up with your Primary Care Physician in: in 2 weeks Test Results: Test results from this visit will be discussed in further detail at your follow- up appointment, if applicable. Please Follow Up With: Braxton Michael DO When: in 2 weeks with Anjana TORIBIO Please Follow Up With: Brennon Reyes MD When: IN 2 weeks
--- NOTE | 2020-06-15 09:36 | PCM.DC.SUM ---
Discharge Date and Diagnosis - Problem List Patient Problems: Active and Suspected Problems Intertrochanteric fracture of left hip (Acute) Date of Admission: 06/12/20 Date of Discharge: 06/15/20 - Primary Discharge Diagnosis Acute Problems: Active Problems Intertrochanteric fracture of left hip (Acute) - Secondary Discharge Diagnosis Chronic Problems: Chronic Problems COPD (chronic obstructive pulmonary disease) (Chronic) Seizure (Chronic) HLD (hyperlipidemia) (Chronic) Tobacco use disorder (Chronic) Rheumatoid arthritis (Chronic) Esophageal reflux (Chronic) Diabetes mellitus (Chronic) Chronic airway obstruction (Chronic) Hospital Course and Treatment Consultations 06/13/20 08:18 Consult: Onc/Wound/assembler wire group Routine Comment: Reason for Consult:: left yoder wound Summary of Care Provided: [] This 59-year-old female with extensive history of smoking, COPD and other comorbidities admitted with fall and consequent left hip fracture 1. Perioperative management of left intertroch pathological fracture-: Clinically, she fulfills criteria for pathological fracture as she fell down from less than her standing height and she has history of rheumatoid arthritis. Dr. Reyes is been consulted. Continue vitamin D and alendronate. Patient denies cardiac disease including CHF, coronary artery disease/UT or arrhythmia. EKG reviewed normal sinus rhythm at 97 bpm. No significant change from previous EKG of April 2011. Mild decrease in H&H from 10.5-9.1, mild acute anemia secondary to surgical blood loss. PT and OT. VTE prophylaxis Lovenox 40 subcu daily. Ideally, NOACs but patient is on phenytoin which has significant interaction with Eliquis/Xarelto. Therefore, patient is discharged on Lovenox 40 10 subcu daily for 3 weeks. Discussed with the orthopedic team. Follow-up in 2 weeks. Prescription for ferrous sulfate, Lovenox and nicotine sent to patient pharmacy. 2. COPD with unknown severity- no acute exacerbation. NSQIP surgical risk calculation was done. She has serious complication about 17.3%, any complication 17.6%, risk of pneumonia 4.1% and readmission 14% above average. Discussed with the legal arbitrator. Emery Grinder consult reviewed and appreciated. On bronchodilator scheduled, reviewed and , incentive spirometry. Patient is high risk for perioperative pulmonary as well as other complication in view of extensive history of smoking. Patient is on Combivent, fluticasone and Tudorza inhaler at home. Continue. Follow-up in pulmonary clinic in 2 weeks for PFT. 3. Nicotine abuse: Patient smokes 1.5 pack/day of cigarettes and also smokes pipes. Nicotine patch. Smoking cessation counseling done. 4. Chronic seizure disorder: Exact classification, severity and etiology unclear. Serum phenytoin level is low 7.5 but it may be low secondary to low nutritional/albumin state. Liver chemistry ordered. Patient clinically did not had any seizure like symptoms or signs. Continue phenytoin 100 mg twice daily. 5. Rheumatoid arthritis: On norco, voltaren, folate 5. GERD - continue PPI 6. Anxiety/Depression - ativan, paxil 7. Dyslipidemia- statin VTE prophylaxis: On Lovenox Discharge medication reconciliation done. Discharge follow-up instructions completed. Discharge process discussed with the patient and all questions were answered to patient's satisfaction. Total time spent, exact 35 minutes on discharge meds reconciliation, examination, coordination of care with nurses and ancillary staff, review of imaging and blood test and discussion with the patient on follow-up instructions Patient Problems: Active and Suspected Problems Intertrochanteric fracture of left hip (Acute) Objective: Patient blood pressure and heart rate is controlled. No hypoxia or tachypnea. Patient moved to the bowel. Physical exam General: Alert, Oriented x3, Cooperative HEENT: Atraumatic, PERRLA, EOMI, Normocephalic. Oral: No Gingival or Mucosal Lesions/ Ulcerations Neck: Supple, No JVD, Negative Carotid Bruits Lungs: Air entry severely diminished in bilateral lung. Fine expiratory rhonchi present. No tachypnea or hypoxia. Cardiovascular: Regular rate, Regular Rhythm, Normal S1, Normal S2, No murmurs Abdomen: Bowel Sounds Present, Soft, Non Tender, Non-Distended : No renal angle tenderness. No suprapubic tenderness. Extremities: No edema, Capillary Refill Less than 3 Seconds Skin: Small ulcer present on the left leg with chronic purulent discharge; present since admission. Dressing is done. Musculoskeletal: Left hip surgical dressing is dry. No bleeding or hematoma. Neurovascular intact. Neurological: Cranial nerves II-XII grossly intact, Deep Tendon Reflexes 2+/4 and Symmetrical, Neuro grossly intact Psych/Mental Status: Normal Affect, Appropriate. - Physical Exam Vitals/I&O's: Vital Signs Temp Pulse Resp BP Pulse Ox 98.5 F 96 18 152/77 H 97 06/15/20 08:32 06/15/20 08:32 06/15/20 08:32 06/15/20 08:32 06/15/20 08:32 Oxygen Flow Rate (L/min) 3 Oxygen Delivery Method Room Air Weight: 90 lb 2.705 oz Body Mass Index (BMI) 18.2 Intake and Output for Last 24 Hours 06/13/20 06/14/20 06/15/20 23:59 23:59 23:59 Intake Total 2380.5 / 2380.5 1335.5 / 1635.5 650 / 650 Output Total 750 / 1150 950 / 950 Balance 1630.5 / 1230.5 385.5 / 685.5 650 / 650 Laboratory Results 06/15/20 05:12: WBC 6.1, RBC 3.00 L, Hgb 9.1 L, Hct 28.4 L, MCV 94.7, MCH 30.3, MCHC 32.0, RDW Std Deviation 42.3, RDW Coeff of Brittany 12.2, Plt Count 197, MPV 10.0, Immature Gran % (Auto) 0.200, Neut % (Auto) 72.0 H, Lymph % (Auto) 17.4 L, [place] % (Auto) 9.4, Eos % (Auto) 0.8, Baso % (Auto) 0.2, Absolute Neuts (auto) 4.4, Absolute Lymphs (auto) 1.06, Nucleated RBC % 0 06/15/20 05:12: Sodium 139, Potassium 3.5, Chloride 105, Carbon Dioxide 29.0, Anion Gap 5, BUN 8, Creatinine 0.48 L, Estim Creat Clear Calc 81.48, Est GFR (MDRD) Af Amer 169, Est GFR (MDRD) Non-Af 140, BUN/Creatinine Ratio 16.6, Glucose 130 H, Calcium 7.9 L, Total Bilirubin 0.20, Direct Bilirubin 0.09, AST 22, ALT 64 H, Alkaline Phosphatase 146 H, Total Protein 5.8 L, Albumin 2.3 L, Globulin 3.5 Current Medications Acetaminophen (Tylenol) 500 mg PO Q6H PRN PRN PRN Reason: Pain 1-10 or Fever Last Admin: 06/14/20 17:10 Dose: 500 mg Documented by: Albuterol Sulfate (Ventolin Aerosols) 2.5 mg INHALATION Q2H PRN PRN PRN Reason: Shortness of Breath/Wheezing Albuterol/Ipratropium (Duoneb) 3 ml INHALATION Q6H.RT [facility] Last Admin: 06/15/20 06:56 Dose: 3 ml Documented by: Ascorbic Acid (Vitamin C) 500 mg PO DAILY@0800 [facility] Last Admin: 06/15/20 08:36 Dose: 500 mg Documented by: Budesonide (Pulmicort Aerosol) 0.5 mg INHALATION Q12H.RT [facility] Last Admin: 06/15/20 06:56 Dose: 0.5 mg Documented by: Cholecalciferol (Vitamin D (25mcg)) 5,000 unit PO DAILY [facility] Last Admin: 06/15/20 08:36 Dose: 5,000 unit Documented by: Cyclobenzaprine HCl (Flexeril) 10 mg PO BID PRN PRN PRN Reason: BACK Spasms Diclofenac Sodium (Voltaren) 75 mg PO BID PRN PRN PRN Reason: BACK PAIN Enoxaparin Sodium (Lovenox) 40 mg SC DAILY [facility] Last Admin: 06/15/20 08:37 Dose: 40 mg Documented by: Enteral Nutritional Formula (Ensure Surgery) 237 ml PO TIDCM [facility] Last Admin: 06/15/20 08:35 Dose: 237 ml Documented by: Folic Acid (Folic Acid) 1 mg PO BIDCM [facility] Last Admin: 06/15/20 08:36 Dose: 1 mg Documented by: Lorazepam (Ativan) 0.5 mg PO BID [facility] Last Admin: 06/15/20 08:39 Dose: 0.5 mg Documented by: Morphine Sulfate () 4 mg IV Q3H PRN PRN PRN Reason: Pain Score 6-10/10 Last Admin: 06/14/20 05:13 Dose: 4 mg Documented by: Nicotine (Nicoderm Cq (Pbkc)) 21 mg TRANSDERM. DAILY [facility] Last Admin: 06/15/20 08:36 Dose: 21 mg Documented by: Ondansetron HCl (Zofran) 4 mg IV Q8H PRN PRN PRN Reason: NAUSEA/VOMITING Oxycodone HCl (Oxyir) 10 mg PO Q4H PRN PRN PRN Reason: Pain Score 4-10/10 Last Admin: 10/08/20 08:38 Dose: 10 mg Documented by: Pantoprazole Sodium (Protonix) 40 mg PO QHS [facility] Last Admin: 06/14/20 22:21 Dose: 40 mg Documented by: Paroxetine HCl (Paxil) 20 mg PO DAILY [facility] Last Admin: 06/15/20 08:37 Dose: 20 mg Documented by: Phenytoin Sodium (Dilantin) 100 mg PO BID@0900,1700 [facility] Last Admin: 06/15/20 08:37 Dose: 100 mg Documented by: Pravastatin Sodium (Pravachol) 20 mg PO QHS [facility] Last Admin: 06/14/20 22:20 Dose: 20 mg Documented by: Senna/Docusate Sodium (Senokot-S, Mima-Colace) 2 tablet PO BID [facility] Last Admin: 06/15/20 08:35 Dose: 2 tablet Documented by: Sodium Chloride () 10 - 40 ml IV UD PRN PRN Reason: SALINE FLUSH Last Admin: 06/13/20 01:11 Dose: 10 ml Documented by: Temazepam (Restoril) 15 mg PO QHS PRN PRN PRN Reason: INSOMNIA Home Medications: Medications to take at Discharge Alendronate Sodium [Fosamax] 70 mg PO SA 12/22/16 Ipratropium/Albuterol Respimat [Combivent Respimat Inhal [place]] 1 puff INHALATION 4X/DAY 12/22/16 Lorazepam [Ativan] 0.5 mg PO BID 12/22/16 Omeprazole [Prilosec] 40 mg PO QHS 12/22/16 Phenytoin Na [Dilantin] 100 mg PO BID@0900,1700 12/22/16 Acetaminophen 500 mg PO Q6H PRN PRN 06/12/20 Aclidinium [place] [Tudorza Pressair] 400 mcg IH BID 06/12/20 Ascorbic Acid [Vitamin C] 500 mg PO DAILY 06/12/20 Benzonatate 100 mg PO DAILY PRN 06/12/20 Cyclobenzaprine HCl 10 mg PO BID PRN PRN 06/12/20 Diclofenac [Voltaren] 75 mg PO BID PRN PRN 06/12/20 Fluticasone Propionate [Flovent Diskus] 2 puff INHALATION BID 06/12/20 Folic Acid 1 mg PO BID 06/12/20 Hydrocodone/Acetaminophen [Christiana 5-325 Tablet] 1 tab PO TID PRN PRN 06/12/20 Loratadine 10 mg PO DAILY 06/12/20 Multivitamin with Folic Acid [Thera Tablet] 400 mcg PO DAILY 06/12/20 Paroxetine [Paxil] 20 mg PO DAILY 06/12/20 Pravastatin [Pravachol] 20 mg PO QHS 06/12/20 Cholecalciferol (VIT D3) [Vitamin D3] 5,000 unit PO DAILY tab 06/15/20 Enoxaparin [Lovenox] 40 mg SUBCUT DAILY #21 syringe 06/15/20 Nicotine [Nicoderm Cq] 21 mg TRANSDERM. DAILY #30 patch 06/15/20 Bad tablePrimary Care Physician: Care Physician,No Primary [Primary Care Provider] - Medical Necessity - Tobacco Use Smoking Status: Current every day smoker Tobacco Use: Cigarettes Meaningful Use Info Meaningful Use Diagnoses (Choose all that apply): None applicable Inpatient E&M: 03769 [facility]
--- NOTE | 2020-06-15 10:03 | CASEMGMT ---
Addendum entered by Sweta Kign 06/15/20 12:09: SW received message from Rob at [facility] stating they are able to accept pt with start of care tomorrow. SW in to speak with pt and updated pt on this. Pt agreeable to [facility]. Pt asked about wheelchair. SW informed pt that this worker will check with RN CM regarding wheelchair. SW spoke with RN CM and asked about wheelchair and also updated RN CM on [facility] acceptance. SARAH placed a call to [facility] and updated staff to disregard referral. Original Note: Social Work Note SW faxed walker script to [facility]. SARAH placed a call to both [facility] and [facility] regarding referrals for C. Both companies state they haven't reviewed referral yet but will review shortly. Sweta King RECESSING MACHINE OPERATOR, AUTO TRANSMISSION MECHANIC
--- NOTE | 2020-06-15 11:42 | CASEMGMT ---
RN CM Note: Call to [facility] to check copay for Lovenox. Per pharmacist- no copay for prescription. Analilia CHÁVEZN RN ACM
--- NOTE | 2020-06-15 12:09 | CASEMGMT ---
Addendum entered by Curt Boo 06/15/20 14:12: script for wc faxed to [facility] Addendum entered by Curt Boo 06/15/20 13:19: Patient would like a wheelchair. Script sent to Dr. Hernandez to sign, then will fax to [facility] for home delivery. Analilia PERDUE Original Note: AHSAN CM Note: DC summary and instructions faxed to [facility] and call updating that dc is today. Analilia PERDUE
[2020-06-15 13:50] VITALS: PULSE 94; RESP 16
--- NOTE | 2020-06-15 14:29 | CASEMGMT ---
Social Work Note SARAH received update that pt stated that her oxy prescription is $13.91, Ferrous Sulfate is $2.05, and Nicotine patch is $53.50. SARAH placed a call to [facility] and was informed that any prescription costs assistance they are directing pt's to go to [facility]. SARAH placed a call to [facility], left message for Giana in social professionals regarding process for prescription assistance. SARAH in to speak with pt. SARAH updated pt that since Oxy is narcotic, [facility] RX assistance cannot be used. SARAH informed pt that Narcotic patch is over the counter medication and will likely not be covered by insurance. SARAH encouraged pt to call [facility] herself to inquire about costs and process for medication assistance. Pt states that her boyfriend is able to come up with the $13.91 for the Oxy. SARAH did provide pt with [facility] information and contact information. SARAH updated RN. Sweta King HVAC MECHANICAL ENGINEER, EXTENSION SERVICE ADVISOR
[2020-06-15 15:00] VITALS: BP 148/72; PULSE 95; RESP 16; TEMP 36.8; O2SAT 98
--- NOTE | 2020-06-15 15:04 | PHA.DC.MC ---
Pharmacy Service has performed discharge medication reconciliation and counseling for this patient. 1. ENOXAPARIN 40MG SC DAILY X 21 DAYS 2. FERROUS SULFATE 325MG PO DAILYCM 3. NICOTINE PATCH 21MG TD DAILY 4. OXYCODONE 5MG PO Q4H PRN PAIN X 3 DAYS The patient's discharge medication list was reviewed for discrepancies and discrepancies were resolved. Lovenox, nicotine patch, and ferrous sulfate sent to [facility]. Pt requested for them to be transferred to [facility] retail. This [facility] spoke with retail pharmacy to let them know. Pt also told this [facility] she is out of [place] at home and doesn't have anything for pain relief. Spoke with Dr. Nichols to let him know. Oxycodone x 3 days ordered. Home Medications Alendronate Sodium [Fosamax] 70 mg PO SA 12/22/16 Ipratropium/Albuterol Respimat [Combivent Respimat Inhal [place]] 1 puff INHALATION 4X/DAY 12/22/16 Lorazepam [Ativan] 0.5 mg PO BID 12/22/16 Omeprazole [Prilosec] 40 mg PO QHS 12/22/16 Phenytoin Na [Dilantin] 100 mg PO BID@0900,1700 12/22/16 Acetaminophen 500 mg PO Q6H PRN PRN 06/12/20 Aclidinium [place] [Tudorza Pressair] 400 mcg IH BID 06/12/20 Ascorbic Acid [Vitamin C] 500 mg PO DAILY 06/12/20 Benzonatate 100 mg PO DAILY PRN 06/12/20 Cyclobenzaprine HCl 10 mg PO BID PRN PRN 06/12/20 Diclofenac [Voltaren] 75 mg PO BID PRN PRN 06/12/20 Fluticasone Propionate [Flovent Diskus] 2 puff INHALATION BID 06/12/20 Folic Acid 1 mg PO BID 06/12/20 Loratadine 10 mg PO DAILY 06/12/20 Multivitamin with Folic Acid [Thera Tablet] 400 mcg PO DAILY 06/12/20 Paroxetine [Paxil] 20 mg PO DAILY 06/12/20 Pravastatin [Pravachol] 20 mg PO QHS 06/12/20 Cholecalciferol (VIT D3) [Vitamin D3] 5,000 unit PO DAILY tab 06/15/20 Enoxaparin [Lovenox] 40 mg SUBCUT DAILY #21 syringe 06/15/20 Ferrous Sulfate 325 mg PO DAILY@0800 #90 tab 06/15/20 Nicotine [Nicoderm Cq] 21 mg TRANSDERM. DAILY #30 patch 06/15/20 Oxycodone [Oxyir] 5 mg PO Q4H PRN PRN 3 Days #10 tab 06/15/20 The patient was counseled on the following discharge medications and changes in medications for homegoing were reviewed. The Reason for Use, instructions for use, and potential side effects were reviewed for all new medications. The patient's questions regarding all of their medications were answered. The patient was able to verbally demonstrate an understanding of their discharge medications. Patient counseled by pharmacy salespersonLor.
[2020-06-15] MEDS: Acetaminophen 500 MG Tablet PO (15:06)
--- NOTE | 2020-06-16 14:38 | CASEMGMT ---
AHSAN LANZA DC PHONE CALL DC DATE: 06/15/2020 DC DISPOSITION: Home with [facility] through [facility] DC DIAGNOSIS: ORIF L hip LACE/STRATA: 07/11 F/U APPTS MADE PRIOR TO DC: yes Intro role of CM to patient at home. Patient states the [facility] nurse was already there today and EBONYDESTIN[facility] delivered her wheelchair. No further questions or concerns. Analilia HERNANDEZ RN ACM
== END 2020-06-15 15:14 | disposition home or self-care (01) | DRG 308 ==
LOC: ED 12:22 → MS3 14:07
PROVIDERS: Anesthesiology; Specialist; Admitting Provider Internal Medicine; Emergency Provider Emergency Medicine; Visit Provider Internal Medicine
PROC: 0QS706Z Reposition Left Upper Femur with Intramedullary Internal Fixation Device, Open Approach (ICD-10-PCS; CPT 27245; principal; 2020-06-13 16:00)
DX: M80.052A Age-related osteoporosis with current pathological fracture, left femur, initial encounter for fracture (principal); D62 Acute posthemorrhagic anemia; W01.0XXA Fall on same level from slipping, tripping and stumbling without subsequent striking against object, initial encounter; Y92.009 Unspecified place in unspecified non-institutional (private) residence as the place of occurrence of the external cause; Y93.01 Activity, walking, marching and hiking; F17.210 Nicotine dependence, cigarettes, uncomplicated; K21.9 Gastro-esophageal reflux disease without esophagitis; E78.5 Hyperlipidemia, unspecified; G40.909 Epilepsy, unspecified, not intractable, without status epilepticus; F32.9 Major depressive disorder, single episode, unspecified; F41.9 Anxiety disorder, unspecified; M06.9 Rheumatoid arthritis, unspecified; Z79.51 Long term (current) use of inhaled steroids; Z79.83 Long term (current) use of bisphosphonates; Z82.49 Family history of ischemic heart disease and other diseases of the circulatory system; Z90.710 Acquired absence of both cervix and uterus; J44.9 Chronic obstructive pulmonary disease, unspecified; E11.9 Type 2 diabetes mellitus without complications
CPT/HCPCS: 36415; 71045; 73502; 73552; 76000; 80048; 80076; 80185; 85014; 85018; 85025; 85610; 85730; 86850; 86900; 86901; 93005; 94640; 97116; 97162; 97166; 97530; 97802; 99251; 99285; 99406; C1713; J7030; J7120; 90686; A4216; G0463; J2405

== ENCOUNTER → 2021-01-05 15:26 | Outpatient (CLI) | payer MEDICAID, SELFPAY ==
[2020-06-13 14:32] VITALS: BMI 18.2
== END ==
PROVIDERS: Referring Provider Internal Medicine Infectious Disease; Visit Provider Internal Medicine Infectious Disease
DX: M86.68 Other chronic osteomyelitis, other site (principal)
CPT/HCPCS: 87070; 87075; 87077; 87186; 87205

== ENCOUNTER 2021-01-31 09:45 | Outpatient (RCR) | payer MEDICAID, SELFPAY ==
[2020-06-13 14:32] VITALS: BMI 18.2
[2021-01-17 13:42] VITALS: BP 142/73; PULSE 84; RESP 16; TEMP 36.4; BMI 20.5
--- NOTE | 2021-01-17 15:32 | HP.PCM_ITS ---
History of Present Illness Date of Service: 01/17/21 Chief Complaint: left leg ulcer History of Wound: This 60-year-old female was seen today for left leg ulcer. Her complete medical history is unknown. She relates she does not think she has diabetes at this time but did in the past. She relates she may have had a prior heart attack. She relates the onset of the left leg wound was in 2014 following a contact injury which required surgical intervention. Since that time she has had intermittent infections, hospitalizations, treatment for osteomyelitis (IV antibiotics), and delayed healing. She recently went to orthopedics for evaluation of left hip pain who identified her nonhealing wound. She was referred to infectious disease specialist, Dr. Holt demonstrated MRSA growth and she was advised to take oral doxycycline. She thinks the ulcer did heal at some point and then returned. She was seen at an outside facility and these medical records need to be requested. She denies debilitating pain. Is aching at times. She does have leg cramping at times during activity during the day however this does not occur after walking set distance. This may be consistent with claudication. She does have some numbness to the top of her foot since her surgery. She continues to smoke over a pack of cigarettes per day for the past 40 years. At this time she covers the wound with a Band-Aid. She denies current redness, odor, or thick drainage. She denies fever, chill, nausea, vomiting. Progress of Wound: Stable PFSH Home Medications Combivent Respimat 1 puff INHALATION Q4H 12/22/16 [History Last Taken Unknown] alendronate 70 mg PO SA 12/22/16 [History Last Taken 06/10/20] lorazepam 0.5 mg PO BID 12/22/16 [History Last Taken 06/12/20] omeprazole 40 mg PO QHS 12/22/16 [History Last Taken 06/11/20] phenytoin sodium extended 100 mg PO BID@0900,1700 12/22/16 [History Last Taken 06/12/20] acetaminophen 500 mg PO Q6H PRN PRN 06/12/20 [History Last Taken Unknown] aclidinium bromide 400 mcg IH BID 06/12/20 [History Last Taken 06/12/20] ascorbic acid (vitamin C) 500 mg PO DAILY 06/12/20 [History Last Taken 06/12/20] benzonatate 100 mg PO DAILY PRN 06/12/20 [History Last Taken Unknown] cyclobenzaprine 10 mg PO BID PRN PRN 06/12/20 [History Last Taken Unknown] diclofenac sodium 75 mg PO BID PRN PRN 06/12/20 [History Last Taken Unknown] fluticasone propionate 2 puff INHALATION BID 06/12/20 [History Last Taken 06/12/20] folic acid 1 mg PO BID 06/12/20 [History Last Taken 06/12/20] loratadine 10 mg PO DAILY 06/12/20 [History Last Taken 06/12/20] paroxetine HCl 20 mg PO DAILY 06/12/20 [History Last Taken 06/12/20] pravastatin 20 mg PO QHS 06/12/20 [History Last Taken 06/11/20] cholecalciferol (vitamin D3) 5,000 unit PO DAILY tab 06/15/20 [Rx Last Taken Unknown] Allergy/AdvReac Type Severity Reaction Status Date / Time Penicillins Allergy Severe Shortness Verified 06/13/20 16:43 of breath amoxicillin Allergy Hives Verified 06/12/20 14:33 aspirin AdvReac PT UNSURE Verified 06/12/20 14:33 OF REACTION Social History Smoking Status: Current every day smoker ROS Constitutional Constitutional: Denies chills or lethargy Cardiovascular Cardiovascular: Reports claudication and edema; Denies vomiting Gastrointestinal Gastrointestinal: Denies nausea Integumentary Integumentary: Reports wounds Neurologic Neurologic: Reports abnormal gait and burning sensations Vital Signs Vital Signs Vital Signs: 01/17/21 13:42 Temperature 97.5 F L Temperature Source Temporal Pulse Rate 84 Respiratory Rate 16 Blood Pressure 142/73 H Blood Pressure Mean 96 Blood Pressure Source Monitor Blood Pressure Position Sitting Blood Pressure Location Left Arm Oxygen Delivery Method Room Air Physical Exam Const alert and oriented x3 General Appearance: cooperative HEENT normocephalic Cardio Peripheral Pulses: dorsalis pedis pulses present; Negative for posterior tibial pulses present Extremity Extremity Narrative: No calf tenderness Diminished pulses (1/4 dp bilateral and 0/4 pt bilateral) lack of hair distal legs and feet, bilateral Muscle wasting noted Evidence of prior left leg surgery with potential graft or flap General Extremity: edema and no tenderness to palpation of joints or extremities; Negative for cyanosis Skin Skin Narrative: no purulence, no streaking, no odor, no infection. Granular base ulcer with deep probing of over 2 cm. No bogginess, fluctuance or crepitus on palpation. No necrosis. There is deep probing potentially to the deep fascia or periosteal layer General Skin Exam: Negative for erythema Neuro Neuro Narrative: lack of normal epicritic sensation via light touch is consistent to dorsal foot and anterior ankle and intact to the remainder of the foot and lower limb Psych cooperative and affect normal Debridement Note Debridement Note Post-Debridement Measurements and Additional Note: Post-Debridement Measurements/Treatment - Nurse 1 - General Ulcer Assessment Start: 01/17/21 13:41 Freq: Status: Active Protocol: [email or web address] Activity Type Activity Date Activity User E-Sign Co-Sign Detail Recorded Client Recorded Date Recorded By Document 01/17/21 13:42 [facility] [id number] 01/17/21 13:53 [facility] 01/17/21 13:42 - Today's Visit Information Type of service Initial Visit Arrival Mode Ambulatory Transfer Assistance None Patient Identification Verified (Name & Yes ) Patient Requires Transmission-Based No Precautions Height and Weight Height 4 ft 9 in Weight 43.091 kg Weight in Pounds 95.0 lbs Weight Measurement Method Estimated by Patient Body Mass Index (BMI) 20.5 BMI Classification Normal BSA - Carmen 1.31 Vital Signs Temperature (97.8 F-99.1 F) 97.5 F L Temperature Source Temporal Pulse Rate (60-100) 84 Pulse Location Monitor Respiratory Rate (12-18) 16 Respiratory rate source Observation Oxygen Delivery Method Room Air Blood Pressure (90/60-120/80) 142/73 H Blood Pressure Mean 96 Source Monitor Position Sitting Blood Pressure Location Left Arm History Since Last Visit- (Skip if this is Patient's initial visit) Left Footwear Regular Shoe Right Footwear Regular Shoe Pain Scale: 0-10 Numeric Is Patient Pain Free? Yes Lower Extremity Assessment/ Foot Assessment/ Toe Nail Assessment Left -Posterior Tibial Doppler Multiphasic -Dorsalis Pedis Doppler Multiphasic -Extremity Color Pale -Hair Growth on Legs No -Hair Growth on Toes No -Other Deformity No -Prior Foot Ulcer No -Charcot Joint No -Prior Amputation No -Thick Yes -Discolored Yes -Deformed No -Improper Length & Hygeine Yes Right -Posterior Tibial Doppler Monophasic -Dorsalis Pedis Doppler Monophasic -Extremity Color Pale -Hair Growth on Legs No -Hair Growth on Toes No -Other Deformity No -Prior Foot Ulcer No -Charcot Joint No -Prior Amputation No -Thick Yes -Discolored Yes -Deformed No -Improper Length & Hygeine Yes Communication Assessment Preferred language Korean Medical Diagnostic Radiographer Required No Able to Read Yes Able to Write Yes Communication Tools None Right Hearing Abillity Normal Left Hearing Abillity Normal Visual Assistive Devices Glasses Teaching Assessment Preferences Verbal,Written, Audio/Visual, Demonstration Barriers to Learning None Readiness To Learn Excellent Willingness to Engage in Self Management High Activies Readiness to Engage in Self Management High Activities Anxiety Level Calm Cooperation Cooperative Perception Coherent Interest in Health Problem Asks Questions Education Importance Acknowledges Need Does Patient Smoke tobacco or other No substances Smoking Status Current every day smoker Is Patient Diabetic No Functional Assessment Recent Decline in Ability to Perform Denies Any Declines 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 Cultural/Alevism Needs that may affect No Treatment Plan Teaching: Wound Center *Welcome to the Wound Center -Person Taught Patient -Teaching Method Discussion -Response to teaching Verbalize understanding WC - Nurse 1 - General Ulcer Measurement Start: 01/17/21 13:41 Freq: Status: Active Protocol: Activity Type Activity Date Activity User E-Sign Co-Sign Detail Recorded Client Recorded Date Recorded By Document 01/17/21 13:42 [facility] [id number] 01/17/21 13:53 [facility] 01/17/21 13:42 Wound Center Nurse 1 #1- L MEDIAL LE -Combined with other wound No -Current Size (cm) - Length 1.1 -Current Size (cm) - Width 1 -Current Size (cm) - Depth 0.2 -Total Square Cm 1.1 -Date of Last Picture (Recall this 01/17/21 field) -Photo Taken Yes -Epithelialization None Present -Tunneling No -Undermining/Tunneling No -Circular Undermining No -Exudate Amt Medium -Exudate Type Serosanguineous -Wound Margin Distinct, Outline Attached -Granulation Amt Small (1-33%) -Granulation Quality Red -Slough/Fibrin Yes -Necrosis Amt Medium (34-66%) -Necrotic Tissue Type Adherent Slough -Texture (Mima-wound Skin Appearance) Assessed, Scarring -Moisture (Mima-wound Skin Appearance) Assessed,Dry/ Scaly -Color (Mima-wound Skin Appearance) Assessed -Temperature (Mima-wound Skin No Abnormality Appearance) (Pt Warm) -Tenderness on Palpation (Mima-wound No Skin Appearance) -Ulcer Cleansing Rinsed/ Irrigated with Saline -Foul Odor after Cleansing No -Anesthetic Used 5% Lidocaine Gel Lower Limb Edema Present No Right Calf (cm) 29.4 Right Ankle (cm) 19.1 Left Calf (cm) 32.5 Left Ankle (cm) 2.4 WC - Nurse 2 - General Ulcer CM Notes Start: 01/17/21 13:41 Freq: Status: Active Protocol: Activity Type Activity Date Activity User E-Sign Co-Sign Detail Recorded Client Recorded Date Recorded By Document 01/17/21 14:24 [id number] 01/17/21 14:32 01/17/21 14:24 Wound Center Nurse 2 #1- L MEDIAL LE -Time 14:25 -Correct Patient Yes -Correct Side, Site, Position Yes -Correct Procedure Yes -Procedure Performed Yes -Type of Procedure Debridement -Clinical Debridement Subcutaneous -Tissue Removed Subcutaneous -Post Debridement (cm) - Length 1.1 -Post Debridement (cm) - Width 1.1 -Post Debridement (cm) - Depth 2.2 -Total Square (Post) (cm) 1.21 -Area of Debridement (cm) - Length 1.1 -Area of Debridement (cm) - Width 1.1 -Total Square (Area) (cm) 1.21 -Tunneling No -Undermining/Tunneling No -Circular Undermining No -Wound/Ulcer Outcome Not Healed -Ulcer Cleansing Rinsed/ Irrigated with Saline -Foul Odor after Cleansing No -Bioengineered Tissue No -Bleeding Controlled with Pressure -Offloading No -Treatment Response Procedure Tolerated Well -Debridement - Subq, 1st 20sq cm Yes Pain Scale: 0-10 Numeric Is Patient Pain Free? Yes - Nurse 3 - General Ulcer D/C NN Start: 01/17/21 13:41 Freq: Status: Active Protocol: Activity Type Activity Date Activity User E-Sign Co-Sign Detail Recorded Client Recorded Date Recorded By Document 01/17/21 14:54 RB [id number] 01/17/21 14:56 RB 01/17/21 14:54 Wound Care Nurse 3 #1- L MEDIAL LE -Primary Dressing Applied Nugauze, Plain Iodoform -Primary Dressing Covered/Secured with Dry Gauze,Dry Gauze & Roll Gauze,Secured with Tape -Nugauze, Plain Iodoform 1/4 1 Treatment Response Procedure Tolerated Well Pain Scale: 0-10 Numeric Is Patient Pain Free? Yes Teaching: Wound Center *Nutrition -Person Taught Patient -Teaching Method Discussion, Demonstration -Response to teaching Verbalize understanding Dressing Your Wound -Person Taught Patient -Teaching Method Discussion, Demonstration -Response to teaching Verbalize understanding WC - Visit Discharge Discharge Condition Stable Ambulatory Status Ambulatory Transportation Private Auto Medication Reconcilliation completed & No provided to patient/care provider Clinical Summary of Care Provided Yes Wound debrided: left mid leg Wound Grade/Stage: Type of Debridement: Excisional debridement Anesthesia Used: 4% Lidocaine Solution Depth: in the subcutaneous layer Percentage of wound debrided: 100 Instrument Used: #15 blade Tissue Removed: fibrous, devitalized subcutaneous, biofilm, slough Severity: Fat Layer Exposed Amount of bleeding with debridement: Mild Bleeding Controlled with: Pressure Patient tolerated procedure: Patient tolerated procedure well Assessment & Plan Assessment/Plan (1) Ulcer of left lower extremity with fat layer exposed: (2) Osteomyelitis: (3) Other specified peripheral vascular diseases: (4) Venous insufficiency (chronic) (peripheral): (5) Malnutrition: (6) MRSA (methicillin resistant staph aureus) culture positive: (7) Tobacco abuse: (8) Delayed wound healing: (9) Diabetes mellitus with complication: PLAN: I reviewed and discussed his case today. Debridement was performed today as noted in the clinical panel to all of the ulcer site. The following work up and care recommendations were made: Dressing: Sterile gauze packing covered dry gauze Wash: Antibacterial soap and water. Avoid soaking. To avoid bathtub bathing where her leg including her wound are submerged. Tissue growth optimization: Advanced product application will be considered after initial work-up is completed. If she does have a documented history of osteomyelitis that is chronic she may be candidate for hyperbaric oxygen therapy. Medical records have been requested. We discussed the indications, benefits, brief complications, anticipated daily session requirement, and purpose of this therapy. She denies having claustrophobia. She understands she will need to be medically evaluated to ensure safety. She would like to think about this over the course of the next week. Offload: To avoid direct pressure on the site. Vascular: She has nonpalpable pulses and lack of hair. She also has questionable claudication presentation. I recommend noninvasive vascular studies including MARI, segmental thigh and leg pressure, PVR, and systolic toe pressure. She is also advised to discontinue all tobacco products to optimize healing and limb salvage opportunities. Edema: There is mild to moderate edema. Venous Doppler examination with reflux test was ordered for work-up of venous insufficiency. Infection: She does not have purulence today. Her recent culture from 01-05-2021 demonstrated MRSA growth. She was seen recently by infectious disease physici Dr. Yanet hidalgo who recommended doxycycline. This was prescribed approximately 2 weeks ago and she did not start this yet. She was advised to start this without delay at this time. This case was briefly discussed with Dr. Holt. Pain: Controlled Host factors: She has significant delays in healing. We discussed tobacco cessation and how this impairs healing. It is unclear if she potentially has diabetes and she will be screened for this at this time with a hemoglobin A 1C test. She has some muscle wasting and delayed healing and nutritional supplementation would also be beneficial. This is recommended with protein supplementation and 5-10 fresh fruits and vegetables daily. Labs: Updated labs were ordered including CBC, CMP, ESR, C-reactive protein, and hemoglobin A1c Imaging: Updated left leg x-rays were ordered. Medical records: [facility] chart review was performed electronically. Additional medical records from [facility] and clinic of infectious diseases were requested. I answered all the patient's questions. To return to the wound healing center in 1 week or call sooner if the patient has any questions or concerns. Note: [employer] speech recognition wound care coordinator software was used to create portions of this document. Sound-alike and misspelled words, as well as other wound care coordinator errors may be contained in the documentation. 30 minutes was spent on this encounter. This included face to face and non face to face care including preparing for the visit, reviewing the history, performing the exam, counseling and providing education to the patient, family, or caregiver, ordering medications/test/ procedures if indicated as documented, communicating with other healthcare providers, documenting information in the medical record, interpreting / sharing this information when indicated as documented, and care coordination.
[2021-01-24 14:35] VITALS: BP 133/53; PULSE 89; RESP 16; TEMP 36.4; BMI 20.5
--- NOTE | 2021-01-24 22:28 | PCM.WC.PN ---
History of Present Illness Date of Service: 01/27/21 Chief Complaint: left leg ulcer History of Wound: This 60-year-old female was seen today for left leg ulcer. She was recently referred to infectious disease specialist, Dr. Holt demonstrated MRSA growth and she was advised to take oral doxycycline. This was changed to Bactrim at this time. She does have leg cramping at times during activity during the day however this does not occur after walking set distance. This may be consistent with claudication. She continues to smoke over a pack of cigarettes per day for the past 40 years. She denies fever, chill, nausea, vomiting. Her dressing has been changed with sterile gauze packing. Progress of Wound: Stable Objective Data Objective Data Vital Signs: Vital Signs Temp Pulse Resp BP 97.6 F L 89 16 133/53 H 01/24/21 14:35 01/24/21 14:35 01/24/21 14:35 01/24/21 14:35 Oxygen Delivery Method Room Air Weight: 43.091 kg Body Mass Index (BMI) 20.5 Physical Exam Const alert and oriented x3 General Appearance: cooperative HEENT normocephalic Cardio Peripheral Pulses: dorsalis pedis pulses present; Negative for posterior tibial pulses present Extremity Extremity Narrative: No calf tenderness Diminished pulses (1/4 dp bilateral and 0/4 pt bilateral) lack of hair distal legs and feet, bilateral Muscle wasting noted Evidence of prior left leg surgery with potential graft or flap General Extremity: edema and no tenderness to palpation of joints or extremities; Negative for cyanosis Skin Skin Narrative: no purulence, no streaking, no odor, no infection. Granular base ulcer with deep probing deep. No bogginess, fluctuance or crepitus on palpation. No necrosis. General Skin Exam: Negative for erythema Neuro Neuro Narrative: lack of normal epicritic sensation via light touch is consistent to dorsal foot and anterior ankle and intact to the remainder of the foot and lower limb Psych cooperative and affect normal Debridement Note Debridement Note Post-Debridement Measurements and Additional Note: Post-Debridement Measurements/Treatment WC - Nurse 1 - General Ulcer Assessment Start: 01/17/21 13:41 Freq: Status: Active Protocol: [email or web address] Activity Type Activity Date Activity User E-Sign Co-Sign Detail Recorded Client Recorded Date Recorded By Document 01/17/21 13:42 BMF [id number] 01/17/21 13:53 BMF Document 01/24/21 14:35 BMF Desktop 01/24/21 14:43 BMF 01/17/21 01/24/21 13:42 14:35 WC - Today's Visit Information Type of service Initial Visit Follow-up Visit (Physician/IMPORT CLERK ) Arrival Mode Ambulatory Ambulatory Transfer Assistance None None Patient Identification Verified (Name & Yes Yes ) Patient Requires Transmission-Based No No Precautions Height and Weight Height 4 ft 9 in Weight 43.091 kg Weight in Pounds 95.0 lbs Weight Measurement Method Estimated by Patient Body Mass Index (BMI) 20.5 20.5 BMI Classification Normal Normal BSA - Carmen 1.31 Vital Signs Temperature (97.8 F-99.1 F) 97.5 F L 97.6 F L Temperature Source Temporal Temporal Pulse Rate (60-100) 84 89 Pulse Location Monitor Monitor Respiratory Rate (12-18) 16 16 Respiratory rate source Observation Ventilator Oxygen Delivery Method Room Air Room Air Blood Pressure (90/60-120/80) 142/73 H 133/53 H Blood Pressure Mean (mm Hg) 96 79 Source Monitor Manual Position Sitting Sitting Blood Pressure Location Left Arm Right Arm Have you changed medications since your No last visit? Any new allergies or adverse reactions No Had a fall/change in ADL's that may No increase risk of falls Signs or symptoms of abuse and/or No neglect since last visit Have you been in the hospital since your No last visit? Has dressing in place as prescribed Yes Has compression in place as prescribed N/A Has offloadiing in place as prescribed N/A Experienced any changes in pain level or No management History Since Last Visit- (Skip if this is Patient's initial visit) Left Footwear Regular Shoe Regular Shoe Right Footwear Regular Shoe Regular Shoe Pain Scale: 0-10 Numeric Is Patient Pain Free? Yes Yes Lower Extremity Assessment/ Foot Assessment/ Toe Nail Assessment Left -Posterior Tibial Doppler Multiphasic -Dorsalis Pedis Doppler Multiphasic -Extremity Color Pale -Hair Growth on Legs No -Hair Growth on Toes No -Other Deformity No -Prior Foot Ulcer No -Charcot Joint No -Prior Amputation No -Thick Yes -Discolored Yes -Deformed No -Improper Length & Hygeine Yes Right -Posterior Tibial Doppler Monophasic -Dorsalis Pedis Doppler Monophasic -Extremity Color Pale -Hair Growth on Legs No -Hair Growth on Toes No -Other Deformity No -Prior Foot Ulcer No -Charcot Joint No -Prior Amputation No -Thick Yes -Discolored Yes -Deformed No -Improper Length & Hygeine Yes Communication Assessment Preferred language Hungarian Tibco Developer Required No Able to Read Yes Able to Write Yes Communication Tools None Right Hearing Abillity Normal Left Hearing Abillity Normal Visual Assistive Devices Glasses Teaching Assessment Preferences Verbal,Written, Audio/Visual, Demonstration Barriers to Learning None Readiness To Learn Excellent Willingness to Engage in Self Management High Activies Readiness to Engage in Self Management High Activities Anxiety Level Calm Cooperation Cooperative Perception Coherent Interest in Health Problem Asks Questions Education Importance Acknowledges Need Does Patient Smoke tobacco or other No substances Smoking Status Current every day smoker Is Patient Diabetic No Functional Assessment Recent Decline in Ability to Perform Denies Any Declines Culture/Baptism/Client Service Coordinator Cultural/Baptism Needs that may affect No Treatment Plan Teaching: Wound Center *Welcome to the Wound Center -Person Taught Patient -Teaching Method Discussion -Response to teaching Verbalize understanding WC - Nurse 1 - General Ulcer Measurement Start: 01/17/21 13:41 Freq: Status: Active Protocol: Activity Type Activity Date Activity User E-Sign Co-Sign Detail Recorded Client Recorded Date Recorded By Document 01/17/21 13:42 [facility] [id number] 01/17/21 13:53 [facility] Document 01/24/21 14:35 [facility] Desktop 01/24/21 14:43 [facility] 01/17/21 01/24/21 13:42 14:35 Wound Center Nurse 1 #1- L MEDIAL LE -Combined with other wound No No -Current Size (cm) - Length 1.1 0.6 -Current Size (cm) - Width 1 0.4 -Current Size (cm) - Depth 0.2 0.4 -Total Square Cm 1.1 0.24 -Date of Last Picture (Recall this 01/17/21 field) -Photo Taken Yes No -Epithelialization None Present None Present -Tunneling No No -Undermining/Tunneling No No -Circular Undermining No No -Exudate Amt Medium Medium -Exudate Type Serosanguineous Serosanguineous -Wound Margin Distinct, Distinct, Outline Outline Attached Attached -Granulation Amt Small (1-33%) Medium (34-66%) -Granulation Quality Red Red -Slough/Fibrin Yes Yes -Necrosis Amt Medium (34-66%) Medium (34-66%) -Necrotic Tissue Type Adherent Slough Adherent Slough -Texture (Mima-wound Skin Appearance) Assessed, Assessed, Scarring Scarring -Moisture (Mima-wound Skin Appearance) Assessed,Dry/ Assessed Scaly -Color (Mima-wound Skin Appearance) Assessed Assessed -Temperature (Mima-wound Skin No Abnormality No Abnormality Appearance) (Pt Warm) (Pt Warm) -Tenderness on Palpation (Mima-wound No No Skin Appearance) -Ulcer Cleansing Rinsed/ Rinsed/ Irrigated with Irrigated with Saline Saline -Foul Odor after Cleansing No No -Anesthetic Used 5% Lidocaine 5% Lidocaine Gel Gel Lower Limb Edema Present No Right Calf (cm) 29.4 Right Ankle (cm) 19.1 Left Calf (cm) 32.5 Left Ankle (cm) 2.4 WC - Nurse 2 - General Ulcer CM Notes Start: 01/17/21 13:41 Freq: Status: Active Protocol: Activity Type Activity Date Activity User E-Sign Co-Sign Detail Recorded Client Recorded Date Recorded By Document 01/17/21 14:24 [id number] 01/17/21 14:32 Document 01/24/21 15:22 Desktop 01/24/21 15:23 01/17/21 01/24/21 14:24 15:22 Wound Center Nurse 2 #1- L MEDIAL LE -Time 14:25 15:22 -Correct Patient Yes Yes -Correct Side, Site, Position Yes Yes -Correct Procedure Yes Yes -Procedure Performed Yes Yes -Type of Procedure Debridement Debridement -Clinical Debridement Subcutaneous Subcutaneous -Tissue Removed Subcutaneous Subcutaneous -Post Debridement (cm) - Length 1.1 0.6 -Post Debridement (cm) - Width 1.1 0.5 -Post Debridement (cm) - Depth 2.2 0.4 -Total Square (Post) (cm) 1.21 0.30 -Area of Debridement (cm) - Length 1.1 0.6 -Area of Debridement (cm) - Width 1.1 0.5 -Total Square (Area) (cm) 1.21 0.30 -Tunneling No No -Undermining/Tunneling No No -Circular Undermining No No -Wound/Ulcer Outcome Not Healed Not Healed -Ulcer Cleansing Rinsed/ Rinsed/ Irrigated with Irrigated with Saline Saline -Foul Odor after Cleansing No No -Bioengineered Tissue No No -Bleeding Controlled with Pressure Pressure -Offloading No No -Treatment Response Procedure Procedure Tolerated Well Tolerated Well -Debridement - Subq, 1st 20sq cm Yes Yes Pain Scale: 0-10 Numeric Is Patient Pain Free? Yes Yes - Nurse 3 - General Ulcer D/C NN Start: 01/17/21 13:41 Freq: Status: Active Protocol: Activity Type Activity Date Activity User E-Sign Co-Sign Detail Recorded Client Recorded Date Recorded By Document 01/17/21 14:54 RB [id number] 01/17/21 14:56 RB Document 01/24/21 15:33 [facility] Desktop 01/24/21 15:33 [facility] 01/17/21 01/24/21 14:54 15:33 Wound Care Nurse 3 #1- L MEDIAL LE -Ulcer Cleansing Rinsed/ Irrigated with Saline -Foul Odor after Cleansing No -Primary Dressing Applied Nugauze, Plain Nugauze, Plain Iodoform Iodoform -Primary Dressing Covered/Secured with Dry Gauze,Dry Dry Gauze & Gauze & Roll Roll Gauze, Gauze,Secured Secured with with Tape Tape -Nugauze, Plain Iodoform 1/4 1 1 Treatment Response Procedure Procedure Tolerated Well Tolerated Well Pain Scale: 0-10 Numeric Is Patient Pain Free? Yes Yes Teaching: Wound Center *Nutrition -Person Taught Patient -Teaching Method Discussion, Demonstration -Response to teaching Verbalize understanding Dressing Your Wound -Person Taught Patient -Teaching Method Discussion, Demonstration -Response to teaching Verbalize understanding WC - Visit Discharge Discharge Condition Stable Stable Ambulatory Status Ambulatory Ambulatory Transportation Private Auto Private Auto Medication Reconcilliation completed & No provided to patient/care provider Clinical Summary of Care Provided Yes Wound debrided: leg Wound Grade/Stage: 3 Type of Debridement: Excisional debridement Anesthesia Used: 4% Lidocaine Solution Depth: in the subcutaneous layer Percentage of wound debrided: 100 Instrument Used: #15 blade Tissue Removed: fibrous, devitalized subcutaneous, biofilm, slough Severity: Fat Layer Exposed Amount of bleeding with debridement: Mild Bleeding Controlled with: Pressure Patient tolerated procedure: Patient tolerated procedure well Assessment/Plan Assessment/Plan (1) Ulcer of left lower extremity with fat layer exposed: CODE(S): Code(s): L97.922 - Non-pressure chronic ulcer of unspecified part of left lower leg with fat layer exposed (2) Osteomyelitis: CODE(S): Code(s): M86.9 - Osteomyelitis, unspecified (3) Other specified peripheral vascular diseases: CODE(S): Code(s): I73.89 - Other specified peripheral vascular diseases (4) Venous insufficiency (chronic) (peripheral): CODE(S): Code(s): I87.2 - Venous insufficiency (chronic) (peripheral) (5) Malnutrition: CODE(S): Code(s): E46 - Unspecified protein-calorie malnutrition (6) MRSA (methicillin resistant staph aureus) culture positive: CODE(S): Code(s): Z22.322 - Carrier or suspected carrier of Methicillin resistant Staphylococcus aureus (7) Tobacco abuse: CODE(S): Code(s): Z72.0 - Tobacco use (8) Delayed wound healing: CODE(S): Code(s): T14.8XXD - Other injury of unspecified body region, subsequent encounter (9) Diabetes mellitus with complication: CODE(S): Code(s): E11.8 - Type 2 diabetes mellitus with unspecified complications PLAN: I reviewed and discussed her case today. Debridement was performed today as noted in the clinical panel to all of the ulcer site. The following work up and care recommendations were made: Dressing: Sterile gauze packing covered dry gauze Wash: Antibacterial soap and water. Avoid soaking. To avoid bathtub bathing where her leg including her wound are submerged. Tissue growth optimization: Advanced product application will be considered after initial work-up is completed. If she does have a documented history of osteomyelitis that is chronic she may be candidate for hyperbaric oxygen therapy. Her medical history also needs to be confirmed. Medical records have been requested. We discussed the indications, benefits, brief complications, anticipated daily session requirement, and purpose of this therapy. She denies having claustrophobia. She understands she will need to be medically evaluated to ensure safety. She would like to think about this over the course of the next week. She did watch a 5 to 10-minute video on hyperbaric oxygen therapy indications, benefits, and anticipated procedures. She denies claudication. She is apprehensive about committing to come to the wound center daily for this type of therapy. Offload: To avoid direct pressure on the site. Vascular: She has nonpalpable pulses and lack of hair. She also has questionable claudication presentation. I recommend noninvasive vascular studies including MARI, segmental thigh and leg pressure, PVR, and systolic toe pressure. She is also advised to discontinue all tobacco products to optimize healing and limb salvage opportunities. This appointment is scheduled for January 29, 2021. Edema: There is mild to moderate edema. Venous Doppler examination with reflux test was ordered for work-up of venous insufficiency. Infection: She does not have purulence today. Her recent culture from 01-05-2021 demonstrated MRSA growth. She was seen recently by infectious disease physician, Dr. Holt who recommended doxycycline changed to Bactrim. Pain: Controlled Host factors: She has significant delays in healing. We discussed tobacco cessation and how this impairs healing. It is unclear if she potentially has diabetes and she will be screened for this at this time with a hemoglobin A 1C test. She has some muscle wasting and delayed healing and nutritional supplementation would also be beneficial. This is recommended with protein supplementation and 5-10 fresh fruits and vegetables daily. Labs: Updated labs were ordered including CBC, CMP, ESR, C-reactive protein, and hemoglobin A1c. She did not get these completed yet and was advised to do so. Imaging: Updated left leg x-rays were ordered. To obtain. Medical records: [facility] chart review was performed electronically. Additional medical records from [facility] and clinic of infectious diseases were requested. Dr. Holt's notes were reviewed. It was confirmed she is not a prior patient at [facility] and she reports that she may have went to [facility]. Medical records were requested from that facility. I answered all the patient's questions. To return to the wound healing center in 1 week or call sooner if the patient has any questions or concerns. Note: [employer]ial[employer] speech recognition senior environmental technician software was used to create portions of this document. Sound-alike and misspelled words, as well as other senior environmental technician errors may be contained in the documentation. The medical decision making level is low. There is noted low risk of morbidity after considering this treatment plan and diagnostic data. The problems addressed require a low medical decision making level which includes two or more minor problems, a stable chronic illness, or an acute uncomplicated illness or injury.
--- NOTE | 2021-01-29 13:42 | ART_ITS ---
Reason For Study: Ulcer Procedure A bilateral lower extremity continuous wave Doppler with analog waveform analysis,segmental pressures,and ankle brachial indexes without exercise. Left Segmental Pressures Left brachial= 123mmHg. Left posterior tibial artery = 147mmHg. Left dorsalis pedis artery = 140mmHg. Left digit = 88 mmHg. The left dorsalis pedis waveforms are biphasic. The left posterior tibial artery waveforms are biphasic. Right Segmental Pressures Right brachial= 122mmHg. Right posterior tibial artery = 156mmHg. Right dorsalis pedis artery = 150mmHg. Right digit = 130 mmHg. The right dorsalis pedis waveforms are triphasic. The right posterior tibial artery waveforms are triphasic. Indices The right ankle brachial index by the dorsalis pedis is 1.22. The right ankle brachial index by the posterior tibial artery is 1.27. The right digital-brachial index is 1.06. The left ankle brachial index by the dorsalis pedis is 1.17. The left ankle brachial index by the posterior tibial artery is 1.20. The left digital-brachial index is 0.72. VL/Lower Ext Art Exam w/o Exercis Interpretation Summary Triphasic Doppler waveforms are noted at ankle level on the right. Biphasic Dop pler waveforms are noted at ankle level on the left. Pulse-volume recordings appear satisfactory a t all levels bilaterally, including low-thigh, calf, ankle, and digital levels. Resting ankl e-brachial indices are normal bilaterally. Digital-brachial indices are normal bilaterally. There is no evidence of significant arterial occlusive disease in the lower ext remities bilaterally. Ordering Physician: Isabella Schilling Performed By: Sweta Moe RVT
--- NOTE | 2021-01-29 13:42 | VDLE_ITS ---
Reason For Study: Edema RIGHT LEFT CFV is compressible, spontaneous, phasic, CFV is compressible, spontaneous, phasic, competent and demonstrates normal competent, and demonstrates normal augmentation. augmentation. FV is compressible, spontaneous, phasic, FV is compressible, spontaneous, phasic, competent and demonstrates normal competent and demonstrates normal augmentation. augmentation. POP V is compressible, spontaneous, phasic, POP V is compressible, spontaneous, phasic, competent and demonstrates normal competent and demonstrates normal augmentation. augmentation. T/P Trunk is compressible. T/P Trunk is compressible. PTV is compressible. PTV is compressible. RT PerV is compressible. LT PerV is compressible. SFJ is competent and measures 0.63 x 0.74 cm. SFJ is competent and measures 0.85 x 0.79 cm. GSV proximal thigh measures 0.33 x 0.36 cm. GSV proximal thigh measures 0.47 x 0.45 cm. GSV at knee measures 0.36 x 0.38 cm. GSV above knee is INCOMPETENT for greater GSV is competent throughout. than 0.5 seconds. SSV proximal calf is competent and measures GSV at knee measures 0.35 x 0.343 cm. 0.18 x 0.19 cm. GSV below knee is competent. Procedure SSV proximal calf is competent and measures This is a venous duplex using B-mode, color 0.30 x 0.32 cm. flow and spectral Doppler. Exam performed in department. A preliminary report was called and/or faxed to . VL/Venous Duplex US - Edward Extrem Interpretation Summary Deep veins of the lower extremities are bilaterally patent and compressible seg mentally. There is no evidence of deep vein thrombosis on either side. Valvular competence appears in tact within the proximal deep venous systems bilaterally. The great saphenous veins appear bila terally patent and compressible segmentally. Sapheno-femoral junctions are bilaterally competent . The right great saphenous vein appears segmentally competent. The left great saphenous vein tata ears incompetent above the knee. The left great saphenous vein appears competent below the knee. Small saphenous veins are patent and competent bilaterally. Ordering Physician: Isabella Schilling Performed By: Sweta Moe RVT
[2021-01-31 09:29] VITALS: BP 131/66; PULSE 85; RESP 18; TEMP 36.4; BMI 20.5
--- NOTE | 2021-01-31 10:13 | PCM.WC.PN ---
History of Present Illness Date of Service: 01/31/21 Chief Complaint: left leg ulcer History of Wound: This 60-year-old female was seen today for left leg ulcer. She was recently referred to infectious disease specialist, Dr. Holt demonstrated MRSA growth and she was advised to take oral doxycycline. This was changed to Bactrim at this time and she still did not obtain the antibiotic as recommended last week. She relates she thinks she will be able to get it today. She does have leg cramping at times during activity during the day however this does not occur after walking set distance. This may be consistent with claudication. She continues to smoke over a pack of cigarettes per day for the past 40 years. She denies fever, chill, nausea, vomiting. Her dressing has been changed with sterile gauze packing. She thinks the wound looks more pink. Progress of Wound: Stable Objective Data Objective Data Vital Signs: Vital Signs Temp Pulse Resp BP 97.5 F L 85 18 131/66 H 01/31/21 09:29 01/31/21 09:29 01/31/21 09:29 01/31/21 09:29 Oxygen Delivery Method Room Air Weight: 43.091 kg Body Mass Index (BMI) 20.5 Physical Exam Const alert and oriented x3 General Appearance: cooperative HEENT normocephalic Cardio Peripheral Pulses: dorsalis pedis pulses present; Negative for posterior tibial pulses present Extremity Extremity Narrative: No calf tenderness Diminished pulses (1/4 dp bilateral and 0/4 pt bilateral) lack of hair distal legs and feet, bilateral Muscle wasting noted Evidence of prior left leg surgery with potential graft or flap General Extremity: edema and no tenderness to palpation of joints or extremities; Negative for cyanosis Skin Skin Narrative: no purulence, no streaking, no odor, no infection. improved granular base ulcer with deep probing deep to near bone and possible bone structures. No bogginess, fluctuance or crepitus on palpation. No necrosis. General Skin Exam: Negative for erythema Neuro Neuro Narrative: lack of normal epicritic sensation via light touch is consistent to dorsal foot and anterior ankle and intact to the remainder of the foot and lower limb Psych cooperative and affect normal Debridement Note Debridement Note Post-Debridement Measurements and Additional Note: Post-Debridement Measurements/Treatment [id number] - Nurse 1 - General Ulcer Assessment Start: 01/17/21 13:41 Freq: Status: Active Protocol: WC.LOWEXT Activity Type Activity Date Activity User E-Sign Co-Sign Detail Recorded Client Recorded Date Recorded By Document 01/17/21 13:[address] [facility] [id number] 01/17/21 13:[address] [facility] Document 01/24/21 14:[address] [facility] Desktop 01/24/21 14:[address] [facility] Document 01/31/21 09:29 RB [id number] 01/31/21 09:30 RB 01/17/21 01/24/21 01/31/21 13:42 14:35 09:29 WC - Today's Visit Information Type of service Initial Visit Follow-up Visit Follow-up Visit (Physician/CLASSROOM TECHNOLOGY TECHNICIAN (Physician/CLASSROOM TECHNOLOGY TECHNICIAN ) ) Arrival Mode Ambulatory Ambulatory Ambulatory Transfer Assistance None None None Patient Identification Verified (Name & Yes Yes Yes ) Patient Requires Transmission-Based No No No Precautions Height and Weight Height 4 ft 9 in Weight 43.091 kg Weight in Pounds 95.0 lbs Weight Measurement Method Estimated by Patient Body Mass Index (BMI) 20.5 20.5 20.5 BMI Classification Normal Normal Normal BSA - Carmen 1.31 Vital Signs Temperature (97.8 F-99.1 F) 97.5 F L 97.6 F L 97.5 F L Temperature Source Temporal Temporal Temporal Pulse Rate (60-100) 84 89 85 Pulse Location Monitor Monitor Monitor Respiratory Rate (12-18) 16 16 18 Respiratory rate source Observation Ventilator Observation Oxygen Delivery Method Room Air Room Air Blood Pressure (90/60-120/80) 142/73 H 133/53 H 131/66 H Blood Pressure Mean (mm Hg) 96 79 87 Source Monitor Manual Monitor Position Sitting Sitting Semi-Fowlers Blood Pressure Location Left Arm Right Arm Left Arm Have you changed medications since your No No last visit? Any new allergies or adverse reactions No No Had a fall/change in ADL's that may No No increase risk of falls Signs or symptoms of abuse and/or No No neglect since last visit Have you been in the hospital since your No No last visit? Has dressing in place as prescribed Yes Yes Has compression in place as prescribed N/A No Has offloadiing in place as prescribed N/A No Experienced any changes in pain level or No No management History Since Last Visit- (Skip if this is Patient's initial visit) Left Footwear Regular Shoe Regular Shoe Regular Shoe Right Footwear Regular Shoe Regular Shoe Regular Shoe Pain Scale: 0-10 Numeric Is Patient Pain Free? Yes Yes Yes Lower Extremity Assessment/ Foot Assessment/ Toe Nail Assessment Left -Posterior Tibial Doppler Multiphasic -Dorsalis Pedis Doppler Multiphasic -Extremity Color Pale -Hair Growth on Legs No -Hair Growth on Toes No -Other Deformity No -Prior Foot Ulcer No -Charcot Joint No -Prior Amputation No -Thick Yes -Discolored Yes -Deformed No -Improper Length & Hygeine Yes Right -Posterior Tibial Doppler Monophasic -Dorsalis Pedis Doppler Monophasic -Extremity Color Pale -Hair Growth on Legs No -Hair Growth on Toes No -Other Deformity No -Prior Foot Ulcer No -Charcot Joint No -Prior Amputation No -Thick Yes -Discolored Yes -Deformed No -Improper Length & Hygeine Yes Communication Assessment Preferred language [place] Powdered Sugar Supervisor Required No Able to Read Yes Able to Write Yes Communication Tools None Right Hearing Abillity Normal Left Hearing Abillity Normal Visual Assistive Devices Glasses Teaching Assessment Preferences Verbal,Written, Audio/Visual, Demonstration Barriers to Learning None Readiness To Learn Excellent Willingness to Engage in Self Management High Activies Readiness to Engage in Self Management High Activities Anxiety Level Calm Cooperation Cooperative Perception Coherent Interest in Health Problem Asks Questions Education Importance Acknowledges Need Does Patient Smoke tobacco or other No substances Smoking Status Current every day smoker Is Patient Diabetic No Functional Assessment Recent Decline in Ability to Perform Denies Any Declines 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 [id number] 01/17/21 13:53 BM Document 01/24/21 14:[address] [facility] Desktop 01/24/21 14:43 [facility] Document 01/31/21 09:29 RB [id number] 01/31/21 09:30 RB 01/17/21 01/24/21 01/31/21 13:42 14:35 09:29 Wound Center Nurse 1 #1- L MEDIAL LE -Combined with other wound No No No -Current Size (cm) - Length 1.1 0.6 0.7 -Current Size (cm) - Width 1 0.4 0.5 -Current Size (cm) - Depth 0.2 0.4 2 -Total Square Cm 1.1 0.24 0.35 -Date of Last Picture (Recall this 01/17/21 field) -Photo Taken Yes No -Epithelialization None Present None Present -Tunneling No No No -Undermining/Tunneling No No No -Circular Undermining No No No -Exudate Amt Medium Medium Medium -Exudate Type Serosanguineous Serosanguineous Serosanguineous -Wound Margin Distinct, Distinct, Distinct, Outline Outline Outline Attached Attached Attached -Granulation Amt Small (1-33%) Medium (34-66%) Medium (34-66%) -Granulation Quality Red Red [place] -Slough/Fibrin Yes Yes Yes -Necrosis Amt Medium (34-66%) Medium (34-66%) Medium (34-66%) -Necrotic Tissue Type Adherent Slough Adherent Slough Adherent Slough -Structure Exposed N/A -Texture (Mima-wound Skin Appearance) Assessed, Assessed, Assessed, Scarring Scarring Scarring -Moisture (Mima-wound Skin Appearance) Assessed,Dry/ Assessed Assessed Scaly -Color (Mima-wound Skin Appearance) Assessed Assessed Assessed -Temperature (Mima-wound Skin No Abnormality No Abnormality No Abnormality Appearance) (Pt Warm) (Pt Warm) (Pt Warm) -Tenderness on Palpation (Mima-wound No No No Skin Appearance) -Ulcer Cleansing Rinsed/ Rinsed/ Wound Cleanser Irrigated with Irrigated with Saline Saline -Foul Odor after Cleansing No No No -Anesthetic Used 5% Lidocaine 5% Lidocaine 4% Lidocaine Gel Gel Solution Lower Limb Edema Present No Right Calf (cm) 29.4 Right Ankle (cm) 19.1 Left Calf (cm) 32.5 Left Ankle (cm) 2.4 WC - Nurse 2 - General Ulcer CM Notes Start: 01/17/21 13:41 Freq: Status: Active Protocol: Activity Type Activity Date Activity User E-Sign Co-Sign Detail Recorded Client Recorded Date Recorded By Document 01/17/21 14:24 [id number] 01/17/21 14:32 Document 01/24/21 15:22 Desktop 01/24/21 15:23 Document 01/31/21 09:54 PL [id number] 01/31/21 09:55 PL 01/17/21 01/24/21 01/31/21 14:24 15:22 09:54 Wound Center Nurse 2 #1- L MEDIAL LE -Time 14:25 15:22 09:39 -Correct Patient Yes Yes Yes -Correct Side, Site, Position Yes Yes Yes -Correct Procedure Yes Yes Yes -Procedure Performed Yes Yes Yes -Type of Procedure Debridement Debridement Debridement -Clinical Debridement Subcutaneous Subcutaneous Subcutaneous -Tissue Removed Subcutaneous Subcutaneous Subcutaneous -Post Debridement (cm) - Length 1.1 0.6 0.8 -Post Debridement (cm) - Width 1.1 0.5 0.7 -Post Debridement (cm) - Depth 2.2 0.4 2.0 -Total Square (Post) (cm) 1.21 0.30 0.56 -Area of Debridement (cm) - Length 1.1 0.6 0.8 -Area of Debridement (cm) - Width 1.1 0.5 0.7 -Total Square (Area) (cm) 1.21 0.30 0.56 -Tunneling No No No -Undermining/Tunneling No No No -Circular Undermining No No No -Wound/Ulcer Outcome Not Healed Not Healed Not Healed -Ulcer Cleansing Rinsed/ Rinsed/ Rinsed/ Irrigated with Irrigated with Irrigated with Saline Saline Saline -Foul Odor after Cleansing No No No -Bioengineered Tissue No No No -Bleeding Controlled with Pressure Pressure -Offloading No No -Treatment Response Procedure Procedure Tolerated Well Tolerated Well -Debridement - Subq, 1st 20sq cm Yes Yes Yes Pain Scale: 0-10 Numeric Is Patient Pain Free? Yes Yes Yes - Nurse 3 - General Ulcer D/C NN Start: 01/17/21 13:41 Freq: Status: Active Protocol: Activity Type Activity Date Activity User E-Sign Co-Sign Detail Recorded Client Recorded Date Recorded By Document 01/17/21 14:54 RB [id number] 01/17/21 14:56 RB Document 01/24/21 15:33 BM Desktop 01/24/21 15:[address] [facility] 01/17/21 01/24/21 14:54 15:33 Wound Care Nurse 3 #1- L MEDIAL LE -Ulcer Cleansing Rinsed/ Irrigated with Saline -Foul Odor after Cleansing No -Primary Dressing Applied Nugauze, Plain Nugauze, Plain Iodoform Iodoform -Primary Dressing Covered/Secured with Dry Gauze,Dry Dry Gauze & Gauze & Roll Roll Gauze, Gauze,Secured Secured with with Tape Tape -Nugauze, Plain Iodoform 09/11 1 1 Treatment Response Procedure Procedure Tolerated Well Tolerated Well Pain Scale: 0-10 Numeric Is Patient Pain Free? Yes Yes Teaching: Wound Center *Nutrition -Person Taught Patient -Teaching Method Discussion, Demonstration -Response to teaching Verbalize understanding Dressing Your Wound -Person Taught Patient -Teaching Method Discussion, Demonstration -Response to teaching Verbalize understanding WC - Visit Discharge Discharge Condition Stable Stable Ambulatory Status Ambulatory Ambulatory Transportation Private Auto Private Auto Medication Reconcilliation completed & No provided to patient/care provider Clinical Summary of Care Provided Yes Wound debrided: anterior leg Wound Grade/Stage: Type of Debridement: Excisional debridement Anesthesia Used: 4% Lidocaine Solution Depth: in the subcutaneous layer Percentage of wound debrided: 100 Instrument Used: 3mm curette Tissue Removed: fibrous, devitalized subcutaneous, biofilm, slough Severity: Fat Layer Exposed Amount of bleeding with debridement: Mild Bleeding Controlled with: Pressure Patient tolerated procedure: Patient tolerated procedure well Assessment/Plan Assessment/Plan (1) Ulcer of left lower extremity with fat layer exposed: CODE(S): L97.922 - Non-pressure chronic ulcer of unspecified part of left lower leg with fat layer exposed (2) Osteomyelitis: CODE(S): M86.9 - Osteomyelitis, unspecified (3) Other specified peripheral vascular diseases: CODE(S): I73.89 - Other specified peripheral vascular diseases (4) Venous insufficiency (chronic) (peripheral): CODE(S): I87.2 - Venous insufficiency (chronic) (peripheral) (5) Malnutrition: CODE(S): E46 - Unspecified protein-calorie malnutrition (6) MRSA (methicillin resistant staph aureus) culture positive: CODE(S): Z22.322 - Carrier or suspected carrier of Methicillin resistant Staphylococcus aureus (7) Tobacco abuse: CODE(S): Z72.0 - Tobacco use (8) Delayed wound healing: CODE(S): T14.8XXD - Other injury of unspecified body region, subsequent encounter (9) Diabetes mellitus with complication: CODE(S): E11.8 - Type 2 diabetes mellitus with unspecified complications PLAN: I reviewed and discussed her case today. Debridement was performed today as noted in the clinical panel to all of the ulcer site. The following work up and care recommendations were made: Dressing: Sterile gauze packing covered dry gauze Wash: Antibacterial soap and water. Avoid soaking. To avoid bathtub bathing where her leg including her wound are submerged. Tissue growth optimization: Advanced product application will be considered after initial work-up is completed. If she does have a documented history of osteomyelitis that is chronic she may be candidate for hyperbaric oxygen therapy. Her medical history also needs to be confirmed. Medical records have been requested. We discussed the indications, benefits, brief complications, anticipated daily session requirement, and purpose of this therapy. She denies having claustrophobia. She understands she will need to be medically evaluated to ensure safety. She would like to think about this over the course of the next week again. She did watch a 5 to 10-minute video on hyperbaric oxygen therapy during her last clinical session including indications, benefits, and anticipated procedures. She denies claudication. She is apprehensive about committing to come to the wound center daily for this type of therapy. Offload: To avoid direct pressure on the site. Vascular: She has nonpalpable pulses and lack of hair. She also has questionable claudication presentation. I recommend noninvasive vascular studies including MARI, segmental thigh and leg pressure, PVR, and systolic toe pressure. The results were reviewed and she has left biphasic waveforms, left MARI of 1.2, and left toe brachial index is 0.72. The segmental thigh and leg pressures were not obtained. There is not a difference of over 30 mmHg when compared to arm pressures. She is also advised to discontinue all tobacco products to optimize healing and limb salvage opportunities. If lack of healing persists a vascular referral will be provided no there are no gross abnormalities on her noninvasive lower extremity arterial vascular study. Edema: There is mild to moderate edema. To wear Tubigrip for compression management. This is dispensed. Infection: She does not have purulence today. Her recent culture from 01-05-2021 demonstrated MRSA growth. She was seen recently by infectious disease physician, Dr. Holt who recommended doxycycline changed to Bactrim. She has not started the antibiotic yet and was informed her healing potential is very guarded when she is not able to complete this recommendation. Pain: Controlled Host factors: She has significant delays in healing. We discussed tobacco cessation and how this impairs healing. It is unclear if she potentially has diabetes and she will be screened for this at this time with a hemoglobin A 1C test. She has some muscle wasting and delayed healing and nutritional supplementation would also be beneficial. This is recommended with protein supplementation and 5-10 fresh fruits and vegetables daily. Labs: Updated labs were ordered including CBC, CMP, ESR, C-reactive protein, and hemoglobin A1c. She did not get these completed yet and was advised to do so. Imaging: Updated left leg x-rays were ordered. To obtain. Medical records: [facility] chart review was performed electronically. Additional medical records from [facility] and clinic of infectious diseases were requested. Dr. Holt's notes were reviewed. It was confirmed she is not a prior patient at [facility] and she reports that she may have went to [facility]. Medical records were requested from that facility. I answered all the patient's questions. To return to the wound healing center in 1 week or call sooner if the patient has any questions or concerns. Note: [employer] speech recognition hydraulic design engineer software was used to create portions of this document. Sound-alike and misspelled words, as well as other hydraulic design engineer errors may be contained in the documentation. The medical decision making level is low. There is noted low risk of morbidity after considering this treatment plan and diagnostic data. The problems addressed require a low medical decision making level which includes two or more minor problems, a stable chronic illness, or an acute uncomplicated illness or injury.
== END 2021-02-05 23:59 ==
LOC: WC 09:45
PROVIDERS: Referring Provider Podiatrist; Visit Provider Podiatrist
DX: L97.922 Non-pressure chronic ulcer of unspecified part of left lower leg with fat layer exposed (principal); T14.8XXD Other injury of unspecified body region, subsequent encounter; M86.9 Osteomyelitis, unspecified; I87.2 Venous insufficiency (chronic) (peripheral); E46 Unspecified protein-calorie malnutrition; Z22.322 Carrier or suspected carrier of Methicillin resistant Staphylococcus aureus; E11.51 Type 2 diabetes mellitus with diabetic peripheral angiopathy without gangrene; E11.69 Type 2 diabetes mellitus with other specified complication; F17.210 Nicotine dependence, cigarettes, uncomplicated; Z79.82 Long term (current) use of aspirin
CPT/HCPCS: 11042; 93923; 93970; 99213; G0463

== ENCOUNTER → 2021-02-27 14:39 | Outpatient (CLI) | payer MEDICAID, SELFPAY ==
[2021-02-07 08:10] VITALS: BMI 20.5
[2021-02-21 09:54] VITALS: BMI 20.5
--- NOTE | 2021-02-27 15:50 | RAD_ITS ---
STUDY: X-RAY - LEFT TIBIA AND FIBULA REASON FOR EXAM: Female, 60 years old. LEG ULCER TECHNIQUE: 2 view(s) of the tibia and fibula were obtained. COMPARISON: None. FINDINGS: There is a healed fracture in the mid third of the left tibia but apparently there is periosteal reaction and what appears to be chronic osteomyelitis with possibility of sinus tract. Electronically Signed: Bianka Simmons, at 14:35 EDT Tel , Service support , RAD/Tibia & Fibula 2 Views
[2021-02-27 16:10] LABS: Absolute Lymphocyte Count 1.45 X10^3/uL (0.83-4.51); Absolute Neutrophil Count 4.4 X10^3/uL (2.0-7.7); Basophil# 0.03 X10^3/uL; Basophil% 0.5 % (0-1); Eosinophil# 0.08 X10^3/uL; Eosinophils% 1.2 % (0-5); Hematocrit 36.2 % (37-47); Hemoglobin 11.9 g/dL (12.0-15.0); Lymphocyte # 1.45 X10^3/ul (0.83-4.51); Lymphocyte % 22.6 % (19-41); Mean Corp Hgb Conc 32.9 g/dL (32-36); Mean Corpuscular Hgb 29.8 pg (27.0-32.0); Mean Corpuscular Volume 90.7 fL (81-99); Mean Platelet Vol. 10.6 fl (6.2-12.0); Monocyte# 0.39 X10^3/uL; Monocyte% 6.1 % (0-10); NRBC Flagged by Analyzer 0 % (0-5); Neutrophil # 4.44 X10^3/uL (2.7-7.7); Neutrophil % 69.1 % (47-70); Platelet Count 259 K/mm3 (150-450); RBC Distribution Width CV 13.1 % (11.6-14.6); RBC Distribution Width SD 43.4 fl (35.1-43.9); Red Blood Count 3.99 M/mm3 (4.2-5.4); White Blood Count 6.4 K/mm3 (4.4-11.0)
[2021-02-27 16:18] LABS: Hemoglobin A1c 5.5 % (3.8-5.6)
[2021-02-27 16:21] LABS: Erythrocyte Sedimentation Rate 24 mm/hr (0-30)
[2021-02-27 16:36] LABS: ALB/GLOB Ratio 0.9 RATIO (0.9-2.4); AST(SGOT) 22 U/L (15-37); Alanine Aminotransfer ALT/SGPT 20 U/L (13-56); Albumin, Serum 3.4 g/dL (3.2-5.0); Alkaline Phosphatase 176 U/L (45-117); Anion Gap 6 (5-15); BUN 13 mg/dL (7-18); BUN/Creat Ratio 19.5 RATIO (10-20); Calcium,Total 8.7 mg/dL (8.5-10.1); Chloride 107 mmol/L (98-107); Creatinine, Serum 0.66 mg/dL (0.55-1.02); EST Glomerular Filtration Rate 96 mL/min (>60); Est Glom Filt Rate - Afr Amer 116 mL/min (>60); Globulin 3.9 g/dL (2.2-4.2); Glucose 103 mg/dL (74-106); Potassium 4.1 mmol/L (3.5-5.1); Protein, Total 7.3 g/dL (6.4-8.2); Sodium Level 142 mmol/L (136-145)
== END ==
LOC: RAD.FUTURE 14:42 → LAB 02-28 06:12
PROVIDERS: Referring Provider Podiatrist; Visit Provider Podiatrist
DX: E11.622 Type 2 diabetes mellitus with other skin ulcer (principal); L97.922 Non-pressure chronic ulcer of unspecified part of left lower leg with fat layer exposed
CPT/HCPCS: 36415; 73590; 80053; 83036; 85025; 85652; 86140

== ENCOUNTER 2021-03-07 14:30 | Outpatient (RCR) | payer MEDICAID, SELFPAY ==
[2021-02-06 00:40] VITALS: BP 131/66; PULSE 85; RESP 18; TEMP 36.4
[2021-02-07 08:10] VITALS: BP 167/80; PULSE 71; RESP 18; TEMP 36.3; BMI 20.5
--- NOTE | 2021-02-07 11:56 | PCM.WC.PN ---
History of Present Illness Date of Service: 02/07/21 Chief Complaint: left leg ulcer History of Wound: This 60-year-old female was seen today for left leg ulcer. She is also under the care of infectious disease specialist, Dr. Holt, for demonstrated MRSA growth. Her antibiotic was changed to Bactrim and she has taken this for a couple of days. She developed a rash to both arms and feet and reports she did not want to tell anyone about it because she does not want to go on IV antibiotics. She continues to smoke over a pack of cigarettes per day for the past 40 years. She denies fever, chill, nausea, vomiting, diarrhea. Her dressing has been changed with sterile gauze packing. She reports she thought about the hyperbaric oxygen therapy option and she thinks she would be able to get transportation set up. 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 Progress of Wound: improving Objective Data Objective Data Vital Signs: Vital Signs Temp Pulse Resp BP 97.4 F L 71 18 167/80 H 02/07/21 08:10 02/07/21 08:10 02/07/21 08:10 02/07/21 08:10 Weight: 43.091 kg Body Mass Index (BMI) 20.5 Physical Exam Const alert and oriented x3 General Appearance: cooperative HEENT normocephalic Extremity Extremity Narrative: No calf tenderness Diminished pulses Muscle wasting noted Tenderness with ulcer palpation No bogginess or fluctuance Prior remote grafting or flap procedure noted left leg General Extremity: edema and no tenderness to palpation of joints or extremities; Negative for cyanosis Skin Skin Narrative: no purulence, no streaking, no odor, no infection. Reduced ulcer depth. Improvement in granulation tissue. Adjacent skin is atrophic and hairless General Skin Exam: Negative for erythema Neuro Neuro Narrative: Psych cooperative and affect normal Debridement Note Debridement Note Post-Debridement Measurements and Additional Note: Post-Debridement Measurements/Treatment YVETTE - Nurse 1 - General Ulcer Assessment Start: 02/07/21 08:10 Freq: Status: Active Protocol: ELENA Activity Type Activity Date Activity User E-Sign Co-Sign Detail Recorded Client Recorded Date Recorded By Document 02/07/21 08:10 MODE [id number] 02/07/21 08:12 RB 02/07/21 08:10 - Today's Visit Information Type of service Follow-up Visit (Physician/GREASE WORKER ) Arrival Mode Ambulatory Transfer Assistance None Patient Identification Verified (Name & Yes ) Patient Requires Transmission-Based No Precautions Height and Weight Body Mass Index (BMI) 20.5 BMI Classification Normal Vital Signs Temperature (97.8 F-99.1 F) 97.4 F L Temperature Source Temporal Pulse Rate (60-100) 71 Pulse Location Monitor Respiratory Rate (12-18) 18 Respiratory rate source Observation Blood Pressure (90/60-120/80) 167/80 H Blood Pressure Mean (mm Hg) 109 Source Monitor Position Semi-Fowlers Blood Pressure Location Left Arm History Since Last Visit- (Skip if this is Patient's initial visit) Have you changed medications since your No last visit? Any new allergies or adverse reactions No Had a fall/change in ADL's that may No increase risk of falls Signs or symptoms of abuse and/or No neglect since last visit Have you been in the hospital since your No last visit? Has dressing in place as prescribed Yes Has compression in place as prescribed Yes Has offloadiing in place as prescribed No Experienced any changes in pain level or No management Right Footwear Regular Shoe Pain Scale: 0-10 Numeric Is Patient Pain Free? Yes WC - Nurse 1 - General Ulcer Measurement Start: 02/07/21 08:10 Freq: Status: Active Protocol: Activity Type Activity Date Activity User E-Sign Co-Sign Detail Recorded Client Recorded Date Recorded By Document 02/07/21 08:10 RB [id number] 02/07/21 08:12 RB 02/07/21 08:10 Wound Center Nurse 1 #1- L MEDIAL LE -Combined with other wound No -Current Size (cm) - Length 0.8 -Current Size (cm) - Width 0.6 -Current Size (cm) - Depth 0.5 -Total Square Cm 0.48 -Tunneling No -Undermining/Tunneling No -Circular Undermining No -Exudate Amt Small -Exudate Type Serosanguineous -Wound Margin Thickened & Rolled Under -Granulation Amt Medium (34-66%) -Granulation Quality [employer] -Slough/Fibrin Yes -Necrosis Amt Small (1-33%) -Necrotic Tissue Type Adherent Slough -Structure Exposed N/A -Texture (Mima-wound Skin Appearance) Assessed, Scarring -Moisture (Mima-wound Skin Appearance) Assessed -Color (Mima-wound Skin Appearance) Assessed -Temperature (Mima-wound Skin No Abnormality Appearance) (Pt Warm) -Ulcer Cleansing Wound Cleanser -Foul Odor after Cleansing No -Anesthetic Used 4% Lidocaine Solution WC - Nurse 2 - General Ulcer CM Notes Start: 02/07/21 08:10 Freq: Status: Active Protocol: Activity Type Activity Date Activity User E-Sign Co-Sign Detail Recorded Client Recorded Date Recorded By Document 02/07/21 08:31 [id number] 02/07/21 08:32 [email or web address] 02/07/21 08:31 Wound Center Nurse 2 -Time 08:31 -Correct Patient Yes -Correct Side, Site, Position Yes -Correct Procedure Yes -Procedure Performed Yes -Type of Procedure Debridement -Clinical Debridement Subcutaneous -Tissue Removed Subcutaneous -Post Debridement (cm) - Length 0.8 -Post Debridement (cm) - Width 0.6 -Post Debridement (cm) - Depth 0.7 -Total Square (Post) (cm) 0.48 -Area of Debridement (cm) - Length 0.8 -Area of Debridement (cm) - Width 0.6 -Total Square (Area) (cm) 0.48 -Tunneling No -Undermining/Tunneling No -Circular Undermining No -Wound/Ulcer Outcome Not Healed -Foul Odor after Cleansing No -Bioengineered Tissue No -Bleeding Controlled with Pressure -Offloading No -Treatment Response Procedure Tolerated Well -Debridement - Subq, 1st 20sq cm Yes Pain Scale: 0-10 Numeric Is Patient Pain Free? Yes - Nurse 3 - General Ulcer D/C NN Start: 02/07/21 08:10 Freq: Status: Active Protocol: Activity Type Activity Date Activity User E-Sign Co-Sign Detail Recorded Client Recorded Date Recorded By Document 02/07/21 08:39 [id number] 02/07/21 08:40 RB 02/07/21 08:39 Wound Care Nurse 3 #1- L MEDIAL LE -Ulcer Cleansing Rinsed/ Irrigated with Saline -Other Dressing hydrogel -Primary Dressing Covered/Secured with Dry Gauze,Dry Gauze & Roll Gauze,Secured with Tape Treatment Response Procedure Tolerated Well Pain Scale: 0-10 Numeric Is Patient Pain Free? Yes WC - Visit Discharge Discharge Condition Stable Ambulatory Status Ambulatory Transportation Private Auto Medication Reconcilliation completed & No provided to patient/care provider Clinical Summary of Care Provided Yes Wound debrided: leg left Wound Grade/Stage: 3 Type of Debridement: Excisional debridement Anesthesia Used: 4% Lidocaine Solution Depth: in the subcutaneous layer Percentage of wound debrided: 100 Instrument Used: 3mm curette Tissue Removed: fibrous, devitalized subcutaneous, biofilm, slough Severity: Fat Layer Exposed Amount of bleeding with debridement: Mild Bleeding Controlled with: Pressure Patient tolerated procedure: Patient tolerated procedure well Assessment/Plan Assessment/Plan (1) Diabetes mellitus with complication: CODE(S): E11.8 - Type 2 diabetes mellitus with unspecified complications (2) Delayed wound healing: CODE(S): T14.8XXD - Other injury of unspecified body region, subsequent encounter (3) Ulcer of left lower extremity with fat layer exposed: CODE(S): L97.922 - Non-pressure chronic ulcer of unspecified part of left lower leg with fat layer exposed (4) MRSA (methicillin resistant staph aureus) culture positive: CODE(S): Z22.322 - Carrier or suspected carrier of Methicillin resistant Staphylococcus aureus (5) Malnutrition: CODE(S): E46 - Unspecified protein-calorie malnutrition (6) Venous insufficiency (chronic) (peripheral): CODE(S): I87.2 - Venous insufficiency (chronic) (peripheral) (7) Osteomyelitis: CODE(S): M86.9 - Osteomyelitis, unspecified (8) Tobacco use disorder: CODE(S): F17.200 - Nicotine dependence, unspecified, uncomplicated PLAN: I reviewed and discussed her case today. Debridement was performed today as noted in the clinical panel to the ulcer site. The following work up and care recommendations were made: Dressing: Sterile gauze packing covered dry gauze Wash: Antibacterial soap and water. Avoid soaking. To avoid bathtub bathing where her leg including her wound are submerged. Tissue growth optimization: Advanced product application will be considered after initial work-up is completed. If she does have a documented history of osteomyelitis that is chronic she may be candidate for hyperbaric oxygen therapy. 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 Offload: To avoid direct pressure on the site. Vascular: She has nonpalpable pulses and lack of hair. She also has questionable claudication presentation. I recommend noninvasive vascular studies including MARI, segmental thigh and leg pressure, PVR, and systolic toe pressure. The results were reviewed and she has left biphasic waveforms, left MARI of 1.2, and left toe brachial index is 0.72. The segmental thigh and leg pressures were not obtained. There is not a difference of over 30 mmHg when compared to arm pressures. She is also advised to discontinue all tobacco products to optimize healing and limb salvage opportunities. If lack of healing persists a vascular referral will be provided no there are no gross abnormalities on her noninvasive lower extremity arterial vascular study. Edema: There is mild to moderate edema. To wear Tubigrip for compression management. This is dispensed. Her venous Doppler with reflux evaluation report was reviewed and she does have venous insufficiency to the greater saphenous vein on the left lower limb. Infection: She does not have purulence today. Her recent culture from 01-05-2021 demonstrated MRSA growth. She was seen recently by infectious disease physician, Dr. Holt who recommended doxycycline changed to Bactrim. She has started Bactrim and reports rash. She was advised to communicate this with Dr. Holt and stop if there is any worsening. Pain: Controlled Host factors: She has significant delays in healing. We discussed tobacco cessation and how this impairs healing. It is unclear if she potentially has diabetes and she will be screened for this at this time with a hemoglobin A 1C test. She has some muscle wasting and delayed healing and nutritional supplementation would also be beneficial. This is recommended with protein supplementation and 5-10 fresh fruits and vegetables daily. Labs: Updated labs were ordered including CBC, CMP, ESR, C-reactive protein, and hemoglobin A1c. She did not get these completed yet and was advised to do so. Imaging: Updated left leg x-rays were ordered. To obtain. I answered all the patient's questions. To return to the wound healing center in 1 week or call sooner if the patient has any questions or concerns. Note: [employer] speech recognition digital photographic printer software was used to create portions of this document. Sound-alike and misspelled words, as well as other digital photographic printer errors may be contained in the documentation. The medical decision making level is low. There is noted low risk of morbidity after considering this treatment plan and diagnostic data. The problems addressed require a low medical decision making level which includes two or more minor problems, a stable chronic illness, or an acute uncomplicated illness or injury.
[2021-02-14 10:09] VITALS: BP 126/74; PULSE 93; RESP 18; TEMP 36.6; BMI 20.5
--- NOTE | 2021-02-14 12:41 | PN.PCM_ITS ---
History of Present Illness Date of Service: 02/14/21 Chief Complaint: left leg ulcer History of Wound: This 60-year-old female was seen today for left leg ulcer. She is also under the care of infectious disease specialist, Dr. Holt, for demonstrated MRSA growth. Her antibiotic was changed again due to reported rash. She relates she still did not start the antibiotics and will try to see if a prior authorization is needed by calling infectious disease office later today. She continues to smoke over a pack of cigarettes per day for the past 40 years. She relates she has reduced her smoking however is not able to say how much. She denies fever, chill, nausea, vomiting, diarrhea. Her dressing has been changed with sterile gauze packing. She reports she is unable to pack this dressing in as far. Progress of Wound: improving Objective Data Objective Data Vital Signs: Vital Signs Temp Pulse Resp BP 97.8 F 93 18 126/74 H 02/14/21 10:09 02/14/21 10:09 02/14/21 10:09 02/14/21 10:09 Weight: 43.091 kg Body Mass Index (BMI) 20.5 Physical Exam Const alert and oriented x3 General Appearance: cooperative HEENT normocephalic Extremity Extremity Narrative: No calf tenderness Diminished pulses Muscle wasting noted Tenderness with ulcer palpation No bogginess or fluctuance Prior remote grafting or flap procedure noted left leg General Extremity: edema and no tenderness to palpation of joints or extremities; Negative for cyanosis Skin Skin Narrative: no purulence, no streaking, no odor, no infection. Reduced ulcer depth. Improvement in granulation tissue. Adjacent skin is atrophic and hairless General Skin Exam: Negative for erythema Neuro Neuro Narrative: Psych cooperative and affect normal Debridement Note Debridement Note Post-Debridement Measurements and Additional Note: Post-Debridement Measurements/Treatment [id number] - Nurse 1 - General Ulcer Assessment Start: 02/07/21 08:10 Freq: Status: Active Protocol: ELENA Activity Type Activity Date Activity User E-Sign Co-Sign Detail Recorded Client Recorded Date Recorded By Document 02/07/21 08:10 RB [id number] 02/07/21 08:12 RB Document 02/14/21 10:09 RB [id number] 02/14/21 10:11 RB 02/07/21 02/14/21 08:10 10:09 - Today's Visit Information Type of service Follow-up Visit Follow-up Visit (Physician/SYSTEMS APPLICATIONS PROGRAMMING LEAD (Physician/SYSTEMS APPLICATIONS PROGRAMMING LEAD ) ) Arrival Mode Ambulatory Ambulatory Transfer Assistance None Patient Identification Verified (Name & Yes Yes ) Patient Requires Transmission-Based No No Precautions Height and Weight Body Mass Index (BMI) 20.5 20.5 BMI Classification Normal Normal Vital Signs Temperature (97.8 F-99.1 F) 97.4 F L 97.8 F Temperature Source Temporal Temporal Pulse Rate (60-100) 71 93 Pulse Location Monitor Monitor Respiratory Rate (12-18) 18 18 Respiratory rate source Observation Observation Blood Pressure (90/60-120/80) 167/80 H 126/74 H Blood Pressure Mean (mm Hg) 109 91 Source Monitor Monitor Position Semi-Fowlers Semi-Fowlers Blood Pressure Location Left Arm Left Arm History Since Last Visit- (Skip if this is Patient's initial visit) Have you changed medications since your No No last visit? Any new allergies or adverse reactions No No Had a fall/change in ADL's that may No No increase risk of falls Signs or symptoms of abuse and/or No No neglect since last visit Have you been in the hospital since your No No last visit? Has dressing in place as prescribed Yes Yes Has compression in place as prescribed Yes Yes Has offloadiing in place as prescribed No No Experienced any changes in pain level or No No management Left Footwear Regular Shoe Right Footwear Regular Shoe Regular Shoe Pain Scale: 0-10 Numeric Is Patient Pain Free? Yes Yes WC - Nurse 1 - General Ulcer Measurement Start: 02/07/21 08:10 Freq: Status: Active Protocol: Activity Type Activity Date Activity User E-Sign Co-Sign Detail Recorded Client Recorded Date Recorded By Document 02/07/21 08:10 RB [id number] 02/07/21 08:12 RB Document 02/14/21 10:09 RB [id number] 02/14/21 10:11 RB 02/07/21 02/14/21 08:10 10:09 Wound Center Nurse 1 #1- L MEDIAL LE -Combined with other wound No No -Current Size (cm) - Length 0.8 0.4 -Current Size (cm) - Width 0.6 0.4 -Current Size (cm) - Depth 0.5 0.5 -Total Square Cm 0.48 0.16 -Tunneling No No -Undermining/Tunneling No No -Circular Undermining No No -Exudate Amt Small Medium -Exudate Type Serosanguineous Serosanguineous -Wound Margin Thickened & Distinct, Rolled Under Outline Attached -Granulation Amt Medium (34-66%) Medium (34-66%) -Granulation Quality Botines Botines -Slough/Fibrin Yes Yes -Necrosis Amt Small (1-33%) Medium (34-66%) -Necrotic Tissue Type Adherent Slough Adherent Slough -Structure Exposed N/A N/A -Texture (Mima-wound Skin Appearance) Assessed, Scarring Scarring -Moisture (Mima-wound Skin Appearance) Assessed Assessed -Color (Mima-wound Skin Appearance) Assessed -Temperature (Mima-wound Skin No Abnormality No Abnormality Appearance) (Pt Warm) (Pt Warm) -Tenderness on Palpation (Mima-wound No Skin Appearance) -Ulcer Cleansing Wound Cleanser Wound Cleanser -Foul Odor after Cleansing No No -Anesthetic Used 4% Lidocaine 5% Lidocaine Solution Gel Lower Limb Edema Present Yes Left Calf (cm) 32 Left Ankle (cm) 19.5 WC - Nurse 2 - General Ulcer CM Notes Start: 02/07/21 08:10 Freq: Status: Active Protocol: Activity Type Activity Date Activity User E-Sign Co-Sign Detail Recorded Client Recorded Date Recorded By Document 02/07/21 08:31 [id number] 02/07/21 08:32 Document 02/14/21 10:21 [id number] 02/14/21 10:23 02/07/21 02/14/21 08:31 10:21 Wound Center Nurse 2 #1- L MEDIAL LE -Time 08:31 10:21 -Correct Patient Yes Yes -Correct Side, Site, Position Yes Yes -Correct Procedure Yes Yes -Procedure Performed Yes Yes -Type of Procedure Debridement Debridement -Clinical Debridement Subcutaneous Subcutaneous -Tissue Removed Subcutaneous Subcutaneous -Post Debridement (cm) - Length 0.8 0.5 -Post Debridement (cm) - Width 0.6 0.3 -Post Debridement (cm) - Depth 0.7 0.4 -Total Square (Post) (cm) 0.48 0.15 -Area of Debridement (cm) - Length 0.8 0.5 -Area of Debridement (cm) - Width 0.6 0.4 -Total Square (Area) (cm) 0.48 0.20 -Tunneling No No -Undermining/Tunneling No No -Circular Undermining No No -Wound/Ulcer Outcome Not Healed Not Healed -Ulcer Cleansing Rinsed/ Irrigated with Saline -Foul Odor after Cleansing No No -Bioengineered Tissue No No -Bleeding Controlled with Pressure Pressure -Offloading No No -Treatment Response Procedure Procedure Tolerated Well Tolerated Well -Debridement - Subq, 1st 20sq cm Yes Yes Pain Scale: 0-10 Numeric Is Patient Pain Free? Yes Yes - Nurse 3 - General Ulcer D/C NN Start: 02/07/21 08:10 Freq: Status: Active Protocol: Activity Type Activity Date Activity User E-Sign Co-Sign Detail Recorded Client Recorded Date Recorded By Document 02/07/21 08:39 RB [id number] 02/07/21 08:40 RB Document 02/14/21 10:32 [id number] 02/14/21 10:33 02/07/21 02/14/21 08:39 10:32 Wound Care Nurse 3 #1- L MEDIAL LE -Ulcer Cleansing Rinsed/ Rinsed/ Irrigated with Irrigated with Saline Saline -Foul Odor after Cleansing No -Primary Dressing Applied C Hydrogel ($) -Other Dressing hydrogel -Primary Dressing Covered/Secured with Dry Gauze,Dry Secured with Gauze & Roll Tape Gauze,Secured with Tape Left -Tubular Bandage Single Layer -Size of Tubigrip Used Size C -Size C ($) 1 Treatment Response Procedure Tolerated Well Pain Scale: 0-10 Numeric Is Patient Pain Free? Yes Yes - Visit Discharge Discharge Condition Stable Stable Ambulatory Status Ambulatory Ambulatory Transportation Private Auto Private Auto Medication Reconcilliation completed & No Yes provided to patient/care provider Clinical Summary of Care Provided Yes Yes Wound debrided: left leg Wound Grade/Stage: 3 Type of Debridement: Excisional debridement Anesthesia Used: 4% Lidocaine Solution Depth: in the subcutaneous layer Percentage of wound debrided: 100 Instrument Used: #15 blade Tissue Removed: fibrous, devitalized subcutaneous, biofilm, slough Severity: Fat Layer Exposed Amount of bleeding with debridement: Mild Bleeding Controlled with: Pressure Patient tolerated procedure: Patient tolerated procedure well Assessment/Plan Assessment/Plan (1) Diabetes mellitus with complication: CODE(S): E11.8 - Type 2 diabetes mellitus with unspecified complications (2) Delayed wound healing: CODE(S): T14.8XXD - Other injury of unspecified body region, subsequent encounter (3) Ulcer of left lower extremity with fat layer exposed: CODE(S): L97.922 - Non-pressure chronic ulcer of unspecified part of left lower leg with fat layer exposed (4) MRSA (methicillin resistant staph aureus) culture positive: CODE(S): Z22.322 - Carrier or suspected carrier of Methicillin resistant Staphylococcus aureus (5) Malnutrition: CODE(S): E46 - Unspecified protein-calorie malnutrition (6) Venous insufficiency (chronic) (peripheral): CODE(S): I87.2 - Venous insufficiency (chronic) (peripheral) (7) Osteomyelitis: CODE(S): M86.9 - Osteomyelitis, unspecified (8) Tobacco use disorder: CODE(S): F17.200 - Nicotine dependence, unspecified, uncomplicated PLAN: I reviewed and discussed her case today. Debridement was performed today as noted in the clinical panel to the ulcer site. The following work up and care recommendations were made: Dressing: Sterile gauze packing covered dry gauze Wash: Antibacterial soap and water. Avoid soaking. To avoid bathtub bathing where her leg including her wound are submerged. Tissue growth optimization: Advanced product application will be considered after initial work-up is completed. If she does have a documented history of osteomyelitis that is chronic she may be candidate for hyperbaric oxygen therapy. 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 Offload: To avoid direct pressure on the site. Vascular: She has nonpalpable pulses and lack of hair. She also has questionable claudication presentation. I recommend noninvasive vascular studies including MARI, segmental thigh and leg pressure, PVR, and systolic toe pressure. The results were reviewed and she has left biphasic waveforms, left MARI of 1.2, and left toe brachial index is 0.72. The segmental thigh and leg pressures were not obtained. There is not a difference of over 30 mmHg when compared to arm pressures. She is also advised to discontinue all tobacco products to optimize healing and limb salvage opportunities. If lack of healing persists a vascular referral will be provided no there are no gross abnormalities on her noninvasive lower extremity arterial vascular study. Edema: There is mild to moderate edema. To wear Tubigrip for compression management. This is dispensed. Her venous Doppler with reflux evaluation report was reviewed and she does have venous insufficiency to the greater saphenous vein on the left lower limb. Infection: She does not have purulence or erythema today. Her recent culture from 01-05-2021 demonstrated MRSA growth. She was seen recently by infectious disease physician, Dr. Holt who recommended doxycycline changed to Bactrim. She has started Bactrim and reports rash so this was stopped. A different antibiotic was prescribed the patient reports she did not start that yet due to difficulty with insurance coverage at [place]. She will call Dr. Holt's office later this afternoon. Pain: Controlled Host factors: She has significant delays in healing. We discussed tobacco cessation and how this impairs healing. She has some muscle wasting and delayed healing and nutritional supplementation would also be beneficial. This is recommended with protein supplementation and 5-10 fresh fruits and vegetables d aily. Labs: Updated labs were ordered including CBC, CMP, ESR, C-reactive protein, and hemoglobin A1c. She did not get these completed yet and was advised to do so. Imaging: Updated left leg x-rays were ordered. To obtain. I answered all the patient's questions. To return to the wound healing center in 1 week or call sooner if the patient has any questions or concerns. Note: [employer] speech recognition credit risk analytics manager software was used to create portions of this document. Sound-alike and misspelled words, as well as other credit risk analytics manager errors may be contained in the documentation.
[2021-02-21 09:54] VITALS: BP 144/69; PULSE 87; RESP 18; TEMP 36.6; BMI 20.5
--- NOTE | 2021-02-21 11:24 | PCM.WC.PN ---
History of Present Illness Date of Service: 02/21/21 Chief Complaint: left leg ulcer History of Wound: This 60-year-old female was seen today for left leg ulcer. She is also under the care of infectious disease specialist, Dr. Holt, for demonstrated MRSA growth. Her antibiotic was changed again due to reported rash. She relates she still did not start the antibiotics yet. She continues to smoke. She denies fever, chill, nausea, vomiting, diarrhea. Her dressing has been changed with sterile gauze packing. She reports she is unable to pack this dressing in as far. Progress of Wound: improving Objective Data Objective Data Vital Signs: Vital Signs Temp Pulse Resp BP 98 F 87 18 144/69 H 02/21/21 09:54 02/21/21 09:54 02/21/21 09:54 02/21/21 09:54 Weight: 43.091 kg Body Mass Index (BMI) 20.5 Physical Exam Const alert and oriented x3 General Appearance: cooperative HEENT normocephalic Extremity Extremity Narrative: No calf tenderness Diminished pulses Muscle wasting noted Tenderness with ulcer palpation No bogginess or fluctuance Prior remote grafting or flap procedure noted left leg General Extremity: edema and no tenderness to palpation of joints or extremities; Negative for cyanosis Skin Skin Narrative: no purulence, no streaking, no odor, no infection. continued reduced ulcer depth. Improvement in granulation tissue. Adjacent skin is atrophic and hairless General Skin Exam: Negative for erythema Neuro Neuro Narrative: Psych cooperative and affect normal Debridement Note Debridement Note Post-Debridement Measurements and Additional Note: Post-Debridement Measurements/Treatment - Nurse 1 - General Ulcer Assessment Start: 02/07/21 08:10 Freq: Status: Active Protocol: ELENA Activity Type Activity Date Activity User E-Sign Co-Sign Detail Recorded Client Recorded Date Recorded By Document 02/07/21 08:10 RB [id number] 02/07/21 08:12 RB Document 02/14/21 10:09 RB [id number] 02/14/21 10:11 RB Document 02/21/21 09:54 RB [id number] 02/21/21 09:57 RB 02/07/21 02/14/21 02/21/21 08:10 10:09 09:54 - Today's Visit Information Type of service Follow-up Visit Follow-up Visit Follow-up Visit (Physician/FORESTRY AID TECHNICIAN (Physician/FORESTRY AID TECHNICIAN (Physician/FORESTRY AID TECHNICIAN ) ) ) Arrival Mode Ambulatory Ambulatory Ambulatory Transfer Assistance None None Patient Identification Verified (Name & Yes Yes Yes ) Patient Requires Transmission-Based No No No Precautions Height and Weight Body Mass Index (BMI) 20.5 20.5 20.5 BMI Classification Normal Normal Normal Vital Signs Temperature (97.8 F-99.1 F) 97.4 F L 97.8 F 98 F Temperature Source Temporal Temporal Temporal Pulse Rate (60-100) 71 93 87 Pulse Location Monitor Monitor Monitor Respiratory Rate (12-18) 18 18 18 Respiratory rate source Observation Observation Ausculation Blood Pressure (90/60-120/80) 167/80 H 126/74 H 144/69 H Blood Pressure Mean (mm Hg) 109 91 94 Source Monitor Monitor Monitor Position Semi-Fowlers Semi-Fowlers Semi-Fowlers Blood Pressure Location Left Arm Left Arm Left Arm History Since Last Visit- (Skip if this is Patient's initial visit) Have you changed medications since your No No No last visit? Any new allergies or adverse reactions No No No Had a fall/change in ADL's that may No No No increase risk of falls Signs or symptoms of abuse and/or No No No neglect since last visit Have you been in the hospital since your No No No last visit? Has dressing in place as prescribed Yes Yes Yes Has compression in place as prescribed Yes Yes Yes Has offloadiing in place as prescribed No No No Experienced any changes in pain level or No No No management Left Footwear Regular Shoe Right Footwear Regular Shoe Regular Shoe Pain Scale: 0-10 Numeric Is Patient Pain Free? Yes Yes Yes WC - Nurse 1 - General Ulcer Measurement Start: 02/07/21 08:10 Freq: Status: Active Protocol: Activity Type Activity Date Activity User E-Sign Co-Sign Detail Recorded Client Recorded Date Recorded By Document 02/07/21 08:10 RB [id number] 02/07/21 08:12 RB Document 02/14/21 10:09 RB [id number] 02/14/21 10:11 RB Document 02/21/21 09:54 RB [id number] 02/21/21 09:57 RB Edit Result 02/21/21 09:54 RB (1) [id number] 02/21/21 09:59 RB (1) Lower Limb Edema Present => Yes Left Calf (cm) => 31.5 Left Ankle (cm) => 21 02/07/21 02/14/21 02/21/21 08:10 10:09 09:54 Wound Center Nurse 1 #1- L MEDIAL LE -Combined with other wound No No No -Current Size (cm) - Length 0.8 0.4 0.3 -Current Size (cm) - Width 0.6 0.4 0.3 -Current Size (cm) - Depth 0.5 0.5 0.4 -Total Square Cm 0.48 0.16 0.09 -Tunneling No No No -Undermining/Tunneling No No No -Circular Undermining No No -Exudate Amt Small Medium Small -Exudate Type Serosanguineous Serosanguineous Serosanguineous -Wound Margin Thickened & Distinct, Thickened & Rolled Under Outline Rolled Under Attached -Granulation Amt Medium (34-66%) Medium (34-66%) Medium (34-66%) -Granulation Quality [place] -Slough/Fibrin Yes Yes Yes -Necrosis Amt Small (1-33%) Medium (34-66%) Small (1-33%) -Necrotic Tissue Type Adherent Slough Adherent Slough Adherent Slough -Structure Exposed N/A N/A N/A -Texture (Mima-wound Skin Appearance) Assessed, Scarring Assessed, Scarring Scarring -Moisture (Mima-wound Skin Appearance) Assessed Assessed Assessed -Color (Mima-wound Skin Appearance) Assessed Assessed -Temperature (Mima-wound Skin No Abnormality No Abnormality No Abnormality Appearance) (Pt Warm) (Pt Warm) (Pt Warm) -Tenderness on Palpation (Mima-wound No No Skin Appearance) -Ulcer Cleansing Wound Cleanser Wound Cleanser Wound Cleanser -Foul Odor after Cleansing No No No -Anesthetic Used 4% Lidocaine 5% Lidocaine 4% Lidocaine Solution Gel Solution Lower Limb Edema Present Yes Yes Left Calf (cm) 32 31.5 Left Ankle (cm) 19.5 21 WC - Nurse 2 - General Ulcer CM Notes Start: 02/07/21 08:10 Freq: Status: Active Protocol: Activity Type Activity Date Activity User E-Sign Co-Sign Detail Recorded Client Recorded Date Recorded By Document 02/07/21 08:31 TENZIN [id number] 02/07/21 08:32 Document 02/14/21 10:21 TENZIN [id number] 02/14/21 10:23 TENZIN Document 02/21/21 11:20 PL Laptop 02/21/21 11:21 PL 02/07/21 02/14/21 02/21/21 08:31 10:21 11:20 Wound Center Nurse 2 #1- L MEDIAL LE -Time 08: 10:21 10:16 -Correct Patient Yes Yes Yes -Correct Side, Site, Position Yes Yes Yes -Correct Procedure Yes Yes Yes -Procedure Performed Yes Yes Yes -Type of Procedure Debridement Debridement Debridement -Clinical Debridement Subcutaneous Subcutaneous Subcutaneous -Tissue Removed Subcutaneous Subcutaneous Subcutaneous -Post Debridement (cm) - Length 0.8 0.5 0.4 -Post Debridement (cm) - Width 0.6 0.3 0.2 -Post Debridement (cm) - Depth 0.7 0.4 0.4 -Total Square (Post) (cm) 0.48 0.15 0.08 -Area of Debridement (cm) - Length 0.8 0.5 0.4 -Area of Debridement (cm) - Width 0.6 0.4 0.2 -Total Square (Area) (cm) 0.48 0.20 0.08 -Tunneling No No No -Undermining/Tunneling No No No -Circular Undermining No No No -Wound/Ulcer Outcome Not Healed Not Healed Not Healed -Ulcer Cleansing Rinsed/ Rinsed/ Irrigated with Irrigated with Saline Saline -Foul Odor after Cleansing No No No -Bioengineered Tissue No No No -Bleeding Controlled with Pressure Pressure Pressure -Offloading No No -Treatment Response Procedure Procedure Procedure Tolerated Well Tolerated Well Tolerated Well -Debridement - Subq, 1st 20sq cm Yes Yes Yes Pain Scale: 0-10 Numeric Is Patient Pain Free? Yes Yes Yes - Nurse 3 - General Ulcer D/C NN Start: 02/07/21 08:10 Freq: Status: Active Protocol: Activity Type Activity Date Activity User E-Sign Co-Sign Detail Recorded Client Recorded Date Recorded By Document 02/07/21 08:39 RB [id number] 02/07/21 08:40 RB Document 02/14/21 10:32 JF [id number] 02/14/21 10:33 JF Document 02/21/21 10:45 RB [id number] 02/21/21 10:46 RB 02/07/21 02/14/21 02/21/21 08:39 10:32 10:45 Wound Care Nurse 3 #1- L MEDIAL LE -Ulcer Cleansing Rinsed/ Rinsed/ Wound Cleanser Irrigated with Irrigated with Saline Saline -Foul Odor after Cleansing No -Primary Dressing Applied C Hydrogel ($) Aquacel AG 4x4 -Other Dressing hydrogel -Primary Dressing Covered/Secured with Dry Gauze,Dry Secured with Dry Gauze,Dry Gauze & Roll Tape Gauze & Roll Gauze,Secured Gauze,Secured with Tape with Tape -Aquacel AG 4x4 1 Left -Tubular Bandage Single Layer Single Layer -Size of Tubigrip Used Size C Size C -Size C ($) 1 1 Treatment Response Procedure Tolerated Well Pain Scale: 0-10 Numeric Is Patient Pain Free? Yes Yes WC - Visit Discharge Discharge Condition Stable Stable Stable Ambulatory Status Ambulatory Ambulatory Ambulatory Transportation Private Auto Private Auto Private Auto Medication Reconcilliation completed & No Yes No provided to patient/care provider Clinical Summary of Care Provided Yes Yes Yes Wound debrided: left leg Wound Grade/Stage: 3 Type of Debridement: Excisional debridement Anesthesia Used: 4% Lidocaine Solution Depth: in the subcutaneous layer Percentage of wound debrided: 100 Instrument Used: #15 blade and - (1 mm curette) Tissue Removed: fibrous, devitalized subcutaneous, biofilm, slough Severity: Fat Layer Exposed Amount of bleeding with debridement: Mild Bleeding Controlled with: Pressure Patient tolerated procedure: Patient tolerated procedure well Assessment/Plan Assessment/Plan (1) Diabetes mellitus with complication: CODE(S): E11.8 - Type 2 diabetes mellitus with unspecified complications (2) Delayed wound healing: CODE(S): T14.8XXD - Other injury of unspecified body region, subsequent encounter (3) Ulcer of left lower extremity with fat layer exposed: CODE(S): L97.922 - Non-pressure chronic ulcer of unspecified part of left lower leg with fat layer exposed (4) MRSA (methicillin resistant staph aureus) culture positive: CODE(S): Z22.322 - Carrier or suspected carrier of Methicillin resistant Staphylococcus aureus (5) Malnutrition: CODE(S): E46 - Unspecified protein-calorie malnutrition (6) Venous insufficiency (chronic) (peripheral): CODE(S): I87.2 - Venous insufficiency (chronic) (peripheral) (7) Osteomyelitis: CODE(S): M86.9 - Osteomyelitis, unspecified (8) Tobacco use disorder: CODE(S): F17.200 - Nicotine dependence, unspecified, uncomplicated PLAN: I reviewed and discussed her case today. Debridement was performed today as noted in the clinical panel to the ulcer site. The following work up and care recommendations were made: Dressing: aquacell ag Wash: Antibacterial soap and water. Avoid soaking. To avoid bathtub bathing where her leg including her wound are submerged. Tissue growth optimization: Advanced product application will be considered after initial work-up is completed. If she does have a documented history of osteomyelitis that is chronic she may be candidate for hyperbaric oxygen therapy. 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 Offload: To avoid direct pressure on the site. Vascular: She has nonpalpable pulses and lack of hair. She also has questionable claudication presentation. I recommend noninvasive vascular studies including MARI, segmental thigh and leg pressure, PVR, and systolic toe pressure. The results were reviewed and she has left biphasic waveforms, left MARI of 1.2, and left toe brachial index is 0.72. The segmental thigh and leg pressures were not obtained. There is not a difference of over 30 mmHg when compared to arm pressures. She is also advised to discontinue all tobacco products to optimize healing and limb salvage opportunities. If lack of healing persists a vascular referral will be provided no there are no gross abnormalities on her noninvasive lower extremity arterial vascular study. Edema: There is mild to moderate edema. To wear Tubigrip for compression management. This is dispensed. Her venous Doppler with reflux evaluation report was reviewed and she does have venous insufficiency to the greater saphenous vein on the left lower limb. Infection: She does not have purulence or erythema today. Her recent culture from 01-05-2021 demonstrated MRSA growth. She was seen recently by infectious disease physician, Dr. Holt who recommended doxycycline changed to Bactrim. She has started Bactrim and reports rash so this was stopped. A different antibiotic was prescribed the patient reports she did not start that yet due to difficulty with insurance coverage at [employer]. She is scheduled to see Dr. Holt this afternoon. Pain: Controlled Host factors: She has significant delays in healing. We discussed tobacco cessation and how this impairs healing. She has some muscle wasting and delayed healing and nutritional supplementation would also be beneficial. This is recommended with protein supplementation and 5-10 fresh fruits and vegetables daily. Labs: Updated labs were ordered including CBC, CMP, ESR, C-reactive protein, and hemoglobin A1c. She did not get these completed yet and was advised to do so. Imaging: Updated left leg x-rays were ordered. To obtain. I answered all the patient's questions. To return to the wound healing center in 1 week or call sooner if the patient has any questions or concerns. Note: [employer] speech recognition floral designer salesperson software was used to create portions of this document. Sound-alike and misspelled words, as well as other floral designer salesperson errors may be contained in the documentation.
[2021-03-07 14:31] VITALS: BP 125/59; PULSE 87; RESP 16; TEMP 37; BMI 20.5
--- NOTE | 2021-03-07 16:44 | PCM.WC.PN ---
History of Present Illness Date of Service: 03/07/21 Chief Complaint: left leg ulcer History of Wound: This 60-year-old female was seen today for left leg ulcer. She is also under the care of infectious disease specialist, Dr. Holt, for demonstrated MRSA growth. She completed about 4 weeks of intermittent antibiotics. She was not able to fill the most recent antibiotics recommended due to cost. She denies fever, chill, nausea, vomiting, diarrhea. She relates she has been working in the garden and her leg got dirty even though her leg was covered with the dressing. She relates this also causes her leg to swell. She relates she stopped wearing her compression garment this week also. She relates she continues to smoke however she is reduced down to a rolling equivalent of approximately 5 cigarettes. She was seen by Dr. Holt today. Progress of Wound: Worse Objective Data Objective Data Vital Signs: Vital Signs Temp Pulse Resp BP 98.6 F 87 16 125/59 H 03/07/21 14:31 03/07/21 14:31 03/07/21 14:31 03/07/21 14:31 Oxygen Delivery Method Room Air Weight: 43.091 kg Body Mass Index (BMI) 20.5 Physical Exam Const alert and oriented x3 General Appearance: cooperative HEENT normocephalic Extremity Extremity Narrative: No calf tenderness Diminished pulses Muscle wasting noted Tenderness with ulcer palpation No bogginess or fluctuance Prior remote grafting or flap procedure noted left leg General Extremity: edema and no tenderness to palpation of joints or extremities; Negative for cyanosis Skin Skin Narrative: no purulence, no streaking, no odor, no infection. Increased ulcer depth and size and devitalized tissue noted. Overall the ulcer bed is still granular. There is hematogenous drainage only; controlled. Adjacent skin is atrophic and hairless General Skin Exam: Negative for erythema Neuro Neuro Narrative: Psych cooperative and affect normal Debridement Note Debridement Note Post-Debridement Measurements and Additional Note: Post-Debridement Measurements/Treatment WC - Nurse 1 - General Ulcer Assessment Start: 02/07/21 08:10 Freq: Status: Active Protocol: [email or web address] Activity Type Activity Date Activity User E-Sign Co-Sign Detail Recorded Client Recorded Date Recorded By Document 02/07/21 08:10 RB [id number] 02/07/21 08:12 RB Document 02/14/21 10:09 RB [id number] 02/14/21 10:11 RB Document 02/21/21 09:54 RB [id number] 02/21/21 09:57 RB Document 03/07/21 14:31 [facility] [id number] 03/07/21 14:38 BM 02/07/21 02/14/21 02/21/21 08:10 10:09 09:54 WC - Today's Visit Information Type of service Follow-up Visit Follow-up Visit Follow-up Visit (Physician/ENROLLMENT CONSULTANT (Physician/ENROLLMENT CONSULTANT (Physician/ENROLLMENT CONSULTANT ) ) ) Arrival Mode Ambulatory Ambulatory Ambulatory Transfer Assistance None None Patient Identification Verified (Name & Yes Yes Yes ) Patient Requires Transmission-Based No No No Precautions Height and Weight Body Mass Index (BMI) 20.5 20.5 20.5 BMI Classification Normal Normal Normal Vital Signs Temperature (97.8 F-99.1 F) 97.4 F L 97.8 F 98 F Temperature Source Temporal Temporal Temporal Pulse Rate (60-100) 71 93 87 Pulse Location Monitor Monitor Monitor Respiratory Rate (12-18) 18 18 18 Respiratory rate source Observation Observation Ausculation Oxygen Delivery Method Blood Pressure (90/60-120/80) 167/80 H 126/74 H 144/69 H Blood Pressure Mean (mm Hg) 109 91 94 Source Monitor Monitor Monitor Position Semi-Fowlers Semi-Fowlers Semi-Fowlers Blood Pressure Location Left Arm Left Arm Left Arm History Since Last Visit- (Skip if this is Patient's initial visit) Have you changed medications since your No No No last visit? Any new allergies or adverse reactions No No No Had a fall/change in ADL's that may No No No increase risk of falls Signs or symptoms of abuse and/or No No No neglect since last visit Have you been in the hospital since your No No No last visit? Has dressing in place as prescribed Yes Yes Yes Has compression in place as prescribed Yes Yes Yes Has offloadiing in place as prescribed No No No Experienced any changes in pain level or No No No management Left Footwear Regular Shoe Right Footwear Regular Shoe Regular Shoe Pain Scale: 0-10 Numeric Is Patient Pain Free? Yes Yes Yes 03/07/21 14:31 WC - Today's Visit Information Type of service Follow-up Visit (Physician/ENROLLMENT CONSULTANT ) Arrival Mode Ambulatory Transfer Assistance None Patient Identification Verified (Name & Yes ) Patient Requires Transmission-Based No Precautions Height and Weight Body Mass Index (BMI) 20.5 BMI Classification Normal Vital Signs Temperature (97.8 F-99.1 F) 98.6 F Temperature Source Temporal Pulse Rate (60-100) 87 Pulse Location Monitor Respiratory Rate (12-18) 16 Respiratory rate source Observation Oxygen Delivery Method Room Air Blood Pressure (90/60-120/80) 125/59 H Blood Pressure Mean (mm Hg) 81 Source Monitor Position Sitting Blood Pressure Location Left Arm History Since Last Visit- (Skip if this is Patient's initial visit) Have you changed medications since your No last visit? Any new allergies or adverse reactions No Had a fall/change in ADL's that may No increase risk of falls Signs or symptoms of abuse and/or No neglect since last visit Have you been in the hospital since your No last visit? Has dressing in place as prescribed Yes Has compression in place as prescribed N/A Has offloadiing in place as prescribed N/A Experienced any changes in pain level or No management Left Footwear Regular Shoe Right Footwear Regular Shoe Pain Scale: 0-10 Numeric Is Patient Pain Free? Yes WC - Nurse 1 - General Ulcer Measurement Start: 02/07/21 08:10 Freq: Status: Active Protocol: Activity Type Activity Date Activity User E-Sign Co-Sign Detail Recorded Client Recorded Date Recorded By Document 02/07/21 08:10 RB [id number] 02/07/21 08:12 RB Document 02/14/21 10:09 RB [id number] 02/14/21 10:11 RB Document 02/21/21 09:54 RB [id number] 02/21/21 09:57 RB Edit Result 02/21/21 09:54 RB (1) [id number] 02/21/21 09:59 RB Document 03/07/21 14:31 BMF [id number] 03/07/21 14:38 BMF (1) Lower Limb Edema Present => Yes Left Calf (cm) => 31.5 Left Ankle (cm) => 21 02/07/21 02/14/21 02/21/21 08:10 10:09 09:54 Wound Center Nurse 1 #1- L MEDIAL LE -Combined with other wound No No No -Current Size (cm) - Length 0.8 0.4 0.3 -Current Size (cm) - Width 0.6 0.4 0.3 -Current Size (cm) - Depth 0.5 0.5 0.4 -Total Square Cm 0.48 0.16 0.09 -Photo Taken -Epithelialization -Tunneling No No No -Undermining/Tunneling No No No -Circular Undermining No No -Exudate Amt Small Medium Small -Exudate Type Serosanguineous Serosanguineous Serosanguineous -Wound Margin Thickened & Distinct, Thickened & Rolled Under Outline Rolled Under Attached -Granulation Amt Medium (34-66%) Medium (34-66%) Medium (34-66%) -Granulation Quality [place] -Slough/Fibrin Yes Yes Yes -Necrosis Amt Small (1-33%) Medium (34-66%) Small (1-33%) -Necrotic Tissue Type Adherent Slough Adherent Slough Adherent Slough -Structure Exposed N/A N/A N/A -Texture (Mima-wound Skin Appearance) Assessed, Scarring Assessed, Scarring Scarring -Moisture (Mima-wound Skin Appearance) Assessed Assessed Assessed -Color (Mima-wound Skin Appearance) Assessed Assessed -Temperature (Mima-wound Skin No Abnormality No Abnormality No Abnormality Appearance) (Pt Warm) (Pt Warm) (Pt Warm) -Tenderness on Palpation (Mima-wound No No Skin Appearance) -Ulcer Cleansing Wound Cleanser Wound Cleanser Wound Cleanser -Foul Odor after Cleansing No No No -Anesthetic Used 4% Lidocaine 5% Lidocaine 4% Lidocaine Solution Gel Solution Lower Limb Edema Present Yes Yes Left Calf (cm) 32 31.5 Left Ankle (cm) 19.5 21 03/07/21 14:31 Wound Center Nurse 1 #1- L MEDIAL LE -Combined with other wound No -Current Size (cm) - Length 0.8 -Current Size (cm) - Width 0.9 -Current Size (cm) - Depth 0.5 -Total Square Cm 0.72 -Photo Taken No -Epithelialization None Present -Tunneling No -Undermining/Tunneling No -Circular Undermining No -Exudate Amt Medium -Exudate Type Serosanguineous -Wound Margin Distinct, Outline Attached -Granulation Amt Large (67-100%) -Granulation Quality Red -Slough/Fibrin Yes -Necrosis Amt Small (1-33%) -Necrotic Tissue Type Adherent Slough -Structure Exposed -Texture (Mima-wound Skin Appearance) Assessed, Scarring -Moisture (Mima-wound Skin Appearance) Assessed -Color (Mima-wound Skin Appearance) Assessed -Temperature (Mima-wound Skin No Abnormality Appearance) (Pt Warm) -Tenderness on Palpation (Mima-wound No Skin Appearance) -Ulcer Cleansing Rinsed/ Irrigated with Saline -Foul Odor after Cleansing No -Anesthetic Used 5% Lidocaine Gel Lower Limb Edema Present Yes Left Calf (cm) 31 Left Ankle (cm) 19.4 WC - Nurse 2 - General Ulcer CM Notes Start: 02/07/21 08:10 Freq: Status: Active Protocol: Activity Type Activity Date Activity User E-Sign Co-Sign Detail Recorded Client Recorded Date Recorded By Document 02/07/21 08:31 [id number] 02/07/21 08:32 Document 02/14/21 10:21 [id number] 02/14/21 10:23 Document 02/21/21 11:20 PL Laptop 02/21/21 11:21 PL Document 03/07/21 15:04 [id number] 03/07/21 15:08 02/07/21 02/14/21 02/21/21 08:31 10:21 11:20 Wound Center Nurse 2 #1- L MEDIAL LE -Time 08:31 10:21 10:16 -Correct Patient Yes Yes Yes -Correct Side, Site, Position Yes Yes Yes -Correct Procedure Yes Yes Yes -Procedure Performed Yes Yes Yes -Type of Procedure Debridement Debridement Debridement -Clinical Debridement Subcutaneous Subcutaneous Subcutaneous -Tissue Removed Subcutaneous Subcutaneous Subcutaneous -Post Debridement (cm) - Length 0.8 0.5 0.4 -Post Debridement (cm) - Width 0.6 0.3 0.2 -Post Debridement (cm) - Depth 0.7 0.4 0.4 -Total Square (Post) (cm) 0.48 0.15 0.08 -Area of Debridement (cm) - Length 0.8 0.5 0.4 -Area of Debridement (cm) - Width 0.6 0.4 0.2 -Total Square (Area) (cm) 0.48 0.20 0.08 -Tunneling No No No -Undermining/Tunneling No No No -Circular Undermining No No No -Wound/Ulcer Outcome Not Healed Not Healed Not Healed -Ulcer Cleansing Rinsed/ Rinsed/ Irrigated with Irrigated with Saline Saline -Foul Odor after Cleansing No No No -Bioengineered Tissue No No No -Bleeding Controlled with Pressure Pressure Pressure -Offloading No No -Treatment Response Procedure Procedure Procedure Tolerated Well Tolerated Well Tolerated Well -Debridement - Subq, 1st 20sq cm Yes Yes Yes Pain Scale: 0-10 Numeric Is Patient Pain Free? Yes Yes Yes 03/07/21 15:04 Wound Center Nurse 2 #1- L MEDIAL LE -Time 15:04 -Correct Patient Yes -Correct Side, Site, Position Yes -Correct Procedure Yes -Procedure Performed Yes -Type of Procedure Debridement -Clinical Debridement Subcutaneous -Tissue Removed Subcutaneous -Post Debridement (cm) - Length 0.9 -Post Debridement (cm) - Width 0.9 -Post Debridement (cm) - Depth 0.9 -Total Square (Post) (cm) 0.81 -Area of Debridement (cm) - Length 0.9 -Area of Debridement (cm) - Width 0.9 -Total Square (Area) (cm) 0.81 -Tunneling No -Undermining/Tunneling No -Circular Undermining No -Wound/Ulcer Outcome Not Healed -Ulcer Cleansing Rinsed/ Irrigated with Saline -Foul Odor after Cleansing No -Bioengineered Tissue No -Bleeding Controlled with Pressure -Offloading No -Treatment Response Procedure Tolerated Well -Debridement - Subq, 1st 20sq cm Yes Pain Scale: 0-10 Numeric Is Patient Pain Free? Yes - Nurse 3 - General Ulcer D/C NN Start: 02/07/21 08:10 Freq: Status: Active Protocol: Activity Type Activity Date Activity User E-Sign Co-Sign Detail Recorded Client Recorded Date Recorded By Document 02/07/21 08:39 RB [id number] 02/07/21 08:40 RB Document 02/14/21 10:32 [id number] 02/14/21 10:33 Document 02/21/21 10:45 RB [id number] 02/21/21 10:46 RB Document 03/07/21 15:45 [facility] [id number] 03/07/21 15:46 [facility] 02/07/21 02/14/21 02/21/21 08:39 10:32 10:45 Wound Care Nurse 3 #1- L MEDIAL LE -Ulcer Cleansing Rinsed/ Rinsed/ Wound Cleanser Irrigated with Irrigated with Saline Saline -Foul Odor after Cleansing No -Primary Dressing Applied C Hydrogel ($) Aquacel AG 4x4 -Other Dressing hydrogel -Primary Dressing Covered/Secured with Dry Gauze,Dry Secured with Dry Gauze,Dry Gauze & Roll Tape Gauze & Roll Gauze,Secured Gauze,Secured with Tape with Tape -Aquacel AG 4x4 1 -Nugauze, Plain Iodoform 1/4 Left -Tubular Bandage Single Layer Single Layer -Size of Tubigrip Used Size C Size C -Size C ($) 1 1 Treatment Response Procedure Tolerated Well Pain Scale: 0-10 Numeric Is Patient Pain Free? Yes Yes WC - Visit Discharge Discharge Condition Stable Stable Stable Ambulatory Status Ambulatory Ambulatory Ambulatory Transportation Private Auto Private Auto Private Auto Medication Reconcilliation completed & No Yes No provided to patient/care provider Clinical Summary of Care Provided Yes Yes Yes 03/07/21 15:45 Wound Care Nurse 3 #1- L MEDIAL LE -Ulcer Cleansing Rinsed/ Irrigated with Saline -Foul Odor after Cleansing No -Primary Dressing Applied Nugauze, Plain Iodoform -Other Dressing -Primary Dressing Covered/Secured with Dry Gauze & Roll Gauze, Secured with Tape -Aquacel AG 4x4 -Nugauze, Plain Iodoform 1/4 1 Left -Tubular Bandage Single Layer -Size of Tubigrip Used Size C -Size C ($) 1 Treatment Response Procedure Tolerated Well Pain Scale: 0-10 Numeric Is Patient Pain Free? Yes WC - Visit Discharge Discharge Condition Stable Ambulatory Status Ambulatory Transportation Private Auto Medication Reconcilliation completed & provided to patient/care provider Clinical Summary of Care Provided Wound debrided: left leg Wound Grade/Stage: 3 Type of Debridement: Excisional debridement Anesthesia Used: 4% Lidocaine Solution Depth: in the subcutaneous layer Percentage of wound debrided: 100 Instrument Used: #15 blade Tissue Removed: fibrous, devitalized subcutaneous, biofilm, slough Severity: Fat Layer Exposed Amount of bleeding with debridement: Mild Bleeding Controlled with: Pressure Patient tolerated procedure: Patient tolerated procedure well Assessment/Plan Assessment/Plan (1) Diabetes mellitus with complication: CODE(S): E11.8 - Type 2 diabetes mellitus with unspecified complications (2) Delayed wound healing: CODE(S): T14.8XXD - Other injury of unspecified body region, subsequent encounter (3) Ulcer of left lower extremity with fat layer exposed: CODE(S): L97.922 - Non-pressure chronic ulcer of unspecified part of left lower leg with fat layer exposed (4) MRSA (methicillin resistant staph aureus) culture positive: CODE(S): Z22.322 - Carrier or suspected carrier of Methicillin resistant Staphylococcus aureus (5) Malnutrition: CODE(S): E46 - Unspecified protein-calorie malnutrition (6) Venous insufficiency (chronic) (peripheral): CODE(S): I87.2 - Venous insufficiency (chronic) (peripheral) (7) Osteomyelitis: CODE(S): M86.9 - Osteomyelitis, unspecified (8) Tobacco use disorder: CODE(S): F17.200 - Nicotine dependence, unspecified, uncomplicated PLAN: I reviewed and discussed her case today. Debridement was performed today as noted in the clinical panel to the ulcer site. The following work up and care recommendations were made: Dressing: To resume sterile gauze packing Wash: Antibacterial soap and water. Avoid soaking. To avoid bathtub bathing where her leg including her wound are submerged. Tissue growth optimization: Advanced product application will be considered after initial work-up is completed. If she does have a documented history of osteomyelitis that is chronic she may be candidate for hyperbaric oxygen therapy. 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 Offload: To avoid direct pressure on the site. Vascular: She has nonpalpable pulses and lack of hair. She also has questionable claudication presentation. I recommend noninvasive vascular studies including MARI, segmental thigh and leg pressure, PVR, and systolic toe pressure. The results were reviewed and she has left biphasic waveforms, left MARI of 1.2, and left toe brachial index is 0.72. The segmental thigh and leg pressures were not obtained. There is not a difference of over 30 mmHg when compared to arm pressures. She is also advised to discontinue all tobacco products to optimize healing and limb salvage opportunities. If lack of healing persists a vascular referral will be provided no there are no gross abnormalities on her noninvasive lower extremity arterial vascular study. Edema: There is mild to moderate edema. To wear Tubigrip for compression management. Compliance was discussed and necessary. Her venous Doppler with reflux evaluation report was reviewed and she does have venous insufficiency to the greater saphenous vein on the left lower limb. Infection: She does not have purulence or erythema today. Her recent culture from 01-05-2021 demonstrated MRSA growth. She was seen recently by infectious disease physician, Dr. Holt who recommended doxycycline changed to Bactrim. She has started Bactrim and reports rash so this was stopped. A different antibiotic was prescribed the patient reports she did not start that due to cost. At this point she will be monitored for return of infection and additional antibiotics or not particularly recommended. She understands if this worsens IV antibiotics for possibility. She is seen by Dr. Holt this afternoon and the case was briefly discussed. Pain: Controlled Host factors: She has significant delays in healing. We discussed tobacco cessation and how this impairs healing. She has some muscle wasting and delayed healing and nutritional supplementation would also be beneficial. This is recommended with protein supplementation and 5-10 fresh fruits and vegetables daily. Labs: Updated labs were ordered including CBC, CMP, ESR, C-reactive protein, and hemoglobin A1c. This was completed on 02-27-21 with white blood cell count of 6.4, ESR 24, C-reactive protein 23.5, A1c of 5.5%. Imaging: Updated left leg x-rays were ordered. Reviewed as the following from 02/27/21: There is a healed fracture in the mid third of the left tibia but apparently there is periosteal reaction and what appears to be chronic osteomyelitis with possibility of sinus tract. I answered all the patient's questions. To return to the wound healing center in 1 week or call sooner if the patient has any questions or concerns. Note: [employer] speech recognition swatch paster software was used to create portions of this document. Sound-alike and misspelled words, as well as other swatch paster errors may be contained in the documentation. 12 minutes was spent on this encounter. This included face to face and non face to face care including preparing for the visit, reviewing the history, performing the exam, counseling and providing education to the patient, family, or caregiver, ordering medications/test/ procedures if indicated as documented, communicating with other healthcare providers, documenting information in the medical record, interpreting / sharing this information when indicated as documented, and care coordination.
== END 2021-03-07 23:59 ==
LOC: WC 14:30
PROVIDERS: Referring Provider Podiatrist; Visit Provider Podiatrist
DX: T14.8XXD Other injury of unspecified body region, subsequent encounter (principal); E11.8 Type 2 diabetes mellitus with unspecified complications; L97.922 Non-pressure chronic ulcer of unspecified part of left lower leg with fat layer exposed; Z22.322 Carrier or suspected carrier of Methicillin resistant Staphylococcus aureus; E46 Unspecified protein-calorie malnutrition; I87.2 Venous insufficiency (chronic) (peripheral); M86.9 Osteomyelitis, unspecified; F17.210 Nicotine dependence, cigarettes, uncomplicated
CPT/HCPCS: 11042

== ENCOUNTER 2021-04-02 13:30 | Outpatient (RCR) | payer MEDICAID, SELFPAY ==
[2021-03-08 00:28] VITALS: BP 125/59; PULSE 87; RESP 16; TEMP 37
[2021-03-14 14:10] VITALS: BP 121/74; PULSE 92; RESP 18; TEMP 36.4; BMI 20.5
--- NOTE | 2021-03-14 15:06 | PCM.WC.PN ---
History of Present Illness Date of Service: 03/14/21 Chief Complaint: left leg ulcer History of Wound: This 60-year-old female was seen today for left leg ulcer. She completed care plan with Dr. Holt, for demonstrated prior MRSA growth. She completed about 4 weeks of intermittent antibiotics. She was not able to fill the most recent antibiotics recommended due to cost. She denies fever, chill, nausea, vomiting, diarrhea. She tries to wear compression garment. She relates she continues to smoke however she is reduced down to a rolling equivalent of approximately 5 cigarettes. Progress of Wound: Improving Objective Data Objective Data Vital Signs: Vital Signs Temp Pulse Resp BP 97.6 F L 92 18 121/74 H 03/14/21 14:10 03/14/21 14:10 03/14/21 14:10 03/14/21 14:10 Weight: 43.091 kg Body Mass Index (BMI) 20.5 Physical Exam Const alert and oriented x3 General Appearance: cooperative HEENT normocephalic Extremity Extremity Narrative: No calf tenderness Diminished pulses Muscle wasting noted Adjacent skin is atrophic and hairless. Prior skin grafting surgical intervention site noted with cicatrix Reduced ulcer depth and granulation tissue noted. Decreased peripheral ulcer inflammation General Extremity: edema and no tenderness to palpation of joints or extremities; Negative for cyanosis Skin Skin Narrative: no purulence, no streaking, no odor, no infection General Skin Exam: Negative for erythema Neuro Neuro Narrative: lack of normal epicritic sensation via light touch is consistent with neuropathy status Psych cooperative and affect normal Debridement Note Debridement Note Post-Debridement Measurements and Additional Note: Post-Debridement Measurements/Treatment - Nurse 1 - General Ulcer Assessment Start: 03/14/21 14:09 Freq: Status: Active Protocol: [email or web address] Activity Type Activity Date Activity User E-Sign Co-Sign Detail Recorded Client Recorded Date Recorded By Document 03/14/21 14:10 Desktop 03/14/21 14:19 RB 03/14/21 14:10 - Today's Visit Information Type of service Follow-up Visit (Physician/[employer] ) Arrival Mode Ambulatory Transfer Assistance None Patient Identification Verified (Name & Yes ) Patient Requires Transmission-Based No Precautions Height and Weight Body Mass Index (BMI) 20.5 BMI Classification Normal Vital Signs Temperature (97.8 F-99.1 F) 97.6 F L Temperature Source Temporal Pulse Rate (60-100) 92 Pulse Location Monitor Respiratory Rate (12-18) 18 Respiratory rate source Observation Blood Pressure (90/60-120/80) 121/74 H Blood Pressure Mean (mm Hg) 89 Source Monitor Position Semi-Fowlers Blood Pressure Location Left Arm History Since Last Visit- (Skip if this is Patient's initial visit) Have you changed medications since your No last visit? Any new allergies or adverse reactions No Had a fall/change in ADL's that may No increase risk of falls Signs or symptoms of abuse and/or No neglect since last visit Have you been in the hospital since your No last visit? Has dressing in place as prescribed Yes Has compression in place as prescribed Yes Has offloadiing in place as prescribed No Experienced any changes in pain level or No management Pain Scale: 0-10 Numeric Is Patient Pain Free? Yes WC - Nurse 1 - General Ulcer Measurement Start: 03/14/21 14:09 Freq: Status: Active Protocol: Activity Type Activity Date Activity User E-Sign Co-Sign Detail Recorded Client Recorded Date Recorded By Document 03/14/21 14:10 RB Desktop 03/14/21 14:19 RB 03/14/21 14:10 Wound Center Nurse 1 #1- L MEDIAL LE -Combined with other wound No -Current Size (cm) - Length 0.3 -Current Size (cm) - Width 0.3 -Current Size (cm) - Depth 0.4 -Total Square Cm 0.09 -Tunneling Yes -Tunneling Position (O'clock) 5 -Tunneling Distance (cm) 0.5 -Undermining/Tunneling No -Circular Undermining No -Exudate Amt Medium -Exudate Type Serosanguineous -Wound Margin Distinct, Outline Attached -Granulation Amt Medium (34-66%) -Granulation Quality [place] -Slough/Fibrin Yes -Necrosis Amt Small (1-33%) -Necrotic Tissue Type Adherent Slough -Structure Exposed N/A -Texture (Mima-wound Skin Appearance) Assessed, Scarring -Moisture (Mima-wound Skin Appearance) Assessed -Color (Mima-wound Skin Appearance) Assessed -Temperature (Mima-wound Skin No Abnormality Appearance) (Pt Warm) -Tenderness on Palpation (Mima-wound No Skin Appearance) -Ulcer Cleansing Wound Cleanser -Foul Odor after Cleansing No -Anesthetic Used 4% Lidocaine Solution Lower Limb Edema Present Yes Left Ankle (cm) 31.8 Left Foot (cm) 19.5 WC - Nurse 2 - General Ulcer CM Notes Start: 03/14/21 14:09 Freq: Status: Active Protocol: Activity Type Activity Date Activity User E-Sign Co-Sign Detail Recorded Client Recorded Date Recorded By Document 03/14/21 14:42 TENZIN [id number] 03/14/21 14:49 03/14/21 14:42 Wound Center Nurse 2 #1- L MEDIAL LE -Time 14:43 -Correct Patient Yes -Correct Side, Site, Position Yes -Correct Procedure Yes -Procedure Performed Yes -Type of Procedure Debridement -Clinical Debridement Subcutaneous -Tissue Removed Subcutaneous -Post Debridement (cm) - Length 0.3 -Post Debridement (cm) - Width 0.3 -Post Debridement (cm) - Depth 0.3 -Total Square (Post) (cm) 0.09 -Area of Debridement (cm) - Length 0.3 -Area of Debridement (cm) - Width 0.3 -Total Square (Area) (cm) 0.09 -Tunneling No -Undermining/Tunneling No -Circular Undermining No -Wound/Ulcer Outcome Not Healed -Ulcer Cleansing Rinsed/ Irrigated with Saline -Foul Odor after Cleansing No -Bioengineered Tissue No -Bleeding Controlled with Pressure -Offloading No -Treatment Response Procedure Tolerated Well -Debridement - Subq, 1st 20sq cm Yes - Nurse 3 - General Ulcer D/C NN Start: 03/14/21 14:09 Freq: Status: Active Protocol: Activity Type Activity Date Activity User E-Sign Co-Sign Detail Recorded Client Recorded Date Recorded By Document 03/14/21 14:50 TENZIN [id number] 03/14/21 14:50 03/14/21 14:50 Wound Care Nurse 3 -Ulcer Cleansing Rinsed/ Irrigated with Saline -Foul Odor after Cleansing No -Primary Dressing Applied Aquacel AG 2x2 -Primary Dressing Covered/Secured with Dry Gauze, Secured with Tape -Aquacel AG 2x2 1 Pain Scale: 0-10 Numeric Is Patient Pain Free? Yes - Visit Discharge Discharge Condition Stable Ambulatory Status Ambulatory Transportation Private Auto Medication Reconcilliation completed & Yes provided to patient/care provider Clinical Summary of Care Provided Yes Wound debrided: left leg Wound Grade/Stage: Type of Debridement: Excisional debridement Anesthesia Used: 4% Lidocaine Solution Depth: in the subcutaneous layer Percentage of wound debrided: 100 Instrument Used: #15 blade Tissue Removed: fibrous, devitalized subcutaneous, biofilm, slough Severity: Fat Layer Exposed Amount of bleeding with debridement: Mild Bleeding Controlled with: Pressure Patient tolerated procedure: Patient tolerated procedure well Assessment/Plan Assessment/Plan (1) Delayed wound healing: CODE(S): T14.8XXD - Other injury of unspecified body region, subsequent encounter (2) Ulcer of left lower extremity with fat layer exposed: CODE(S): L97.922 - Non-pressure chronic ulcer of unspecified part of left lower leg with fat layer exposed (3) Osteomyelitis: CODE(S): M86.9 - Osteomyelitis, unspecified PLAN: I reviewed and discussed her case today. Debridement was performed today as noted in the clinical panel to the ulcer site. The following work up and care recommendations were made: Dressing: To resume sterile gauze packing alternated with aquacell ag every other day Wash: Antibacterial soap and water. Avoid soaking. To avoid bathtub bathing where her leg including her wound are submerged. Tissue growth optimization: Advanced product application will be considered after initial work-up is completed. If she does have a documented history of osteomyelitis that is chronic she may be candidate for hyperbaric oxygen therapy. 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 Offload: To avoid direct pressure on the site. Vascular: She has nonpalpable pulses and lack of hair. She also has questionable claudication presentation. I recommend noninvasive vascular studies including MARI, segmental thigh and leg pressure, PVR, and systolic toe pressure. The results were reviewed and she has left biphasic waveforms, left MARI of 1.2, and left toe brachial index is 0.72. The segmental thigh and leg pressures were not obtained. There is not a difference of over 30 mmHg when compared to arm pressures. She is also advised to discontinue all tobacco products to optimize healing and limb salvage opportunities. If lack of healing persists a vascular referral will be provided no there are no gross abnormalities on her noninvasive lower extremity arterial vascular study. Edema: There is mild to moderate edema. To wear Tubigrip for compression management. Compliance was discussed and necessary. Her venous Doppler with reflux evaluation report was reviewed and she does have venous insufficiency to the greater saphenous vein on the left lower limb. Infection: She does not have purulence or erythema today. Her recent culture from 01-05-2021 demonstrated MRSA growth. She was seen recently by infectious disease physician, Dr. Holt who recommended doxycycline changed to Bactrim. She has started Bactrim and reports rash so this was stopped. A different antibiotic was prescribed the patient reports she did not start that due to cost. At this point she will be monitored for return of infection and additional antibiotics or not particularly recommended. She understands if this worsens IV antibiotics for possibility. No antibiotics are indicated today due to lack of cardinal signs of infection. Pain: Controlled Host factors: She has significant delays in healing. We discussed tobacco cessation and how this impairs healing. She has some muscle wasting and delayed healing and nutritional supplementation would also be beneficial. This is recommended with protein supplementation and 5-10 fresh fruits and vegetables daily. Labs: Updated labs were ordered including CBC, CMP, ESR, C-reactive protein, and hemoglobin A1c. This was completed on 02-27-21 with white blood cell count of 6.4, ESR 24, C-reactive protein 23.5, A1c of 5.5%. Imaging: Updated left leg x-rays were ordered. Reviewed as the following from 02/27/21: There is a healed fracture in the mid third of the left tibia but apparently there is periosteal reaction and what appears to be chronic osteomyelitis with possibility of sinus tract. I answered all the patient's questions. To return to the wound healing center in 2 weeks or call sooner if the patient has any questions or concerns. Note: [employer] speech recognition wound specialist software was used to create portions of this document. Sound-alike and misspelled words, as well as other wound specialist errors may be contained in the documentation.
[2021-04-02 13:30] VITALS: BP 121/44; PULSE 83; RESP 18; TEMP 37.1; BMI 20.5
== END 2021-04-07 23:59 ==
LOC: WC 13:30
PROVIDERS: Referring Provider Podiatrist; Visit Provider Podiatrist
DX: L97.922 Non-pressure chronic ulcer of unspecified part of left lower leg with fat layer exposed (principal); I87.2 Venous insufficiency (chronic) (peripheral); F17.210 Nicotine dependence, cigarettes, uncomplicated
CPT/HCPCS: 11042; 99212; G0463

== ENCOUNTER 2021-05-03 14:00 | Outpatient (RCR) | payer MEDICAID, SELFPAY ==
[2021-04-08 00:29] VITALS: BP 121/44; PULSE 83; RESP 18; TEMP 37.1
[2021-04-11 10:57] VITALS: BP 135/50; PULSE 87; RESP 20; TEMP 36.5; BMI 20.5
--- NOTE | 2021-04-11 17:02 | PCM.WC.PN ---
History of Present Illness Date of Service: 04/11/21 Chief Complaint: left leg ulcer History of Wound: This 60-year-old female was seen today for left leg ulcer. She completed care plan with Dr. Holt, for demonstrated prior MRSA growth. She completed about 4 weeks of intermittent antibiotics. She was not able to fill the most recent antibiotics recommended due to cost. She denies fever, chill, nausea, vomiting, diarrhea. She tries to wear compression garment. She is not sure if she is decreased her smoking activity. Progress of Wound: Improved since onset of care however delayed healing is noted Objective Data Objective Data Vital Signs: Vital Signs Temp Pulse Resp BP 97.7 F L 87 20 H 135/50 H 04/11/21 10:57 04/11/21 10:57 04/11/21 10:57 04/11/21 10:57 Weight: 43.091 kg Body Mass Index (BMI) 20.5 Physical Exam Const alert and oriented x3 General Appearance: cooperative HEENT normocephalic Extremity Extremity Narrative: No calf tenderness Diminished pulses Muscle wasting noted Adjacent skin is atrophic and hairless. Prior skin grafting surgical intervention site noted with cicatrix Reduced ulcer depth and granulation tissue noted. minimal peripheral ulcer inflammation General Extremity: edema and no tenderness to palpation of joints or extremities; Negative for cyanosis Skin Skin Narrative: no purulence, no streaking, no odor, no infection General Skin Exam: Negative for erythema Neuro Neuro Narrative: lack of normal epicritic sensation via light touch is consistent with neuropathy status Psych cooperative and affect normal Debridement Note Debridement Note Post-Debridement Measurements and Additional Note: Post-Debridement Measurements/Treatment - Nurse 1 - General Ulcer Assessment Start: 04/11/21 10:57 Freq: Status: Active Protocol: WC.LOWMITCHELLT Activity Type Activity Date Activity User E-Sign Co-Sign Detail Recorded Client Recorded Date Recorded By Document 04/11/21 10:57 [id number] 04/11/21 11:01 ELIZABETH 04/11/21 10:57 - Today's Visit Information Type of service Nurse-only Visit Arrival Mode Ambulatory Transfer Assistance None Patient Identification Verified (Name & Yes ) Patient Requires Transmission-Based No Precautions Height and Weight Body Mass Index (BMI) 20.5 BMI Classification Normal Vital Signs Temperature (97.8 F-99.1 F) 97.7 F L Temperature Source Temporal Pulse Rate (60-100) 87 Pulse Location Monitor Respiratory Rate (12-18) 20 H Respiratory rate source Observation Blood Pressure (90/60-120/80) 135/50 H Blood Pressure Mean (mm Hg) 78 Source Monitor History Since Last Visit- (Skip if this is Patient's initial visit) Have you changed medications since your No last visit? Any new allergies or adverse reactions No Had a fall/change in ADL's that may No increase risk of falls Signs or symptoms of abuse and/or No neglect since last visit Have you been in the hospital since your No last visit? Has dressing in place as prescribed Yes Has compression in place as prescribed Yes Has offloadiing in place as prescribed N/A Experienced any changes in pain level or No management Pain Scale: 0-10 Numeric Is Patient Pain Free? Yes WC - Nurse 1 - General Ulcer Measurement Start: 04/11/21 10:57 Freq: Status: Active Protocol: Activity Type Activity Date Activity User E-Sign Co-Sign Detail Recorded Client Recorded Date Recorded By Document 04/11/21 10:57 DL [id number] 04/11/21 11:01 DL 04/11/21 10:57 Wound Center Nurse 1 #1- L MEDIAL LE -Current Size (cm) - Length 0.4 -Current Size (cm) - Width 0.3 -Current Size (cm) - Depth 0.1 -Total Square Cm 0.12 -Photo Taken No -Exudate Amt Small -Exudate Type Serosanguineous -Wound Margin Distinct, Outline Attached -Granulation Amt Large (67-100%) -Granulation Quality Red -Necrosis Amt None Present (0 %) -Structure Exposed N/A -Texture (Mima-wound Skin Appearance) Scarring -Moisture (Mima-wound Skin Appearance) Dry/Scaly -Color (Mima-wound Skin Appearance) No Abnormality -Temperature (Mima-wound Skin No Abnormality Appearance) (Pt Warm) -Tenderness on Palpation (Mima-wound No Skin Appearance) -Ulcer Cleansing Rinsed/ Irrigated with Saline -Foul Odor after Cleansing No -Anesthetic Used 4% Lidocaine Solution Left Calf (cm) 31.7 Left Ankle (cm) 22 WC - Nurse 2 - General Ulcer CM Notes Start: 04/11/21 10:57 Freq: Status: Active Protocol: Activity Type Activity Date Activity User E-Sign Co-Sign Detail Recorded Client Recorded Date Recorded By Document 04/11/21 11:18 JF [id number] 04/11/21 11:19 04/11/21 11:18 Wound Center Nurse 2 #1- L MEDIAL LE -Time 11:18 -Correct Patient Yes -Correct Side, Site, Position Yes -Correct Procedure Yes -Procedure Performed Yes -Type of Procedure Debridement -Clinical Debridement Subcutaneous -Tissue Removed Subcutaneous -Post Debridement (cm) - Length 0.4 -Post Debridement (cm) - Width 0.4 -Post Debridement (cm) - Depth 0.4 -Total Square (Post) (cm) 0.16 -Area of Debridement (cm) - Length 0.4 -Area of Debridement (cm) - Width 0.4 -Total Square (Area) (cm) 0.16 -Tunneling No -Undermining/Tunneling No -Circular Undermining No -Wound/Ulcer Outcome Not Healed -Ulcer Cleansing Rinsed/ Irrigated with Saline -Foul Odor after Cleansing No -Bioengineered Tissue No -Bleeding Controlled with Pressure -Offloading No -Treatment Response Procedure Tolerated Well -Debridement - Subq, 1st 20sq cm Yes Pain Scale: 0-10 Numeric Is Patient Pain Free? Yes - Nurse 3 - General Ulcer D/C NN Start: 04/11/21 10:57 Freq: Status: Active Protocol: Activity Type Activity Date Activity User E-Sign Co-Sign Detail Recorded Client Recorded Date Recorded By Document 04/11/21 11:27 JF [id number] 04/11/21 11:27 04/11/21 11:27 Wound Care Nurse 3 #1- L MEDIAL LE -Ulcer Cleansing Rinsed/ Irrigated with Saline -Foul Odor after Cleansing No -Primary Dressing Applied Aquacel AG 2x2 -Primary Dressing Covered/Secured with Dry Gauze, Secured with Tape -Aquacel AG 2x2 1 Pain Scale: 0-10 Numeric Is Patient Pain Free? Yes WC - Visit Discharge Discharge Condition Stable Ambulatory Status Ambulatory Transportation Private Auto Medication Reconcilliation completed & Yes provided to patient/care provider Clinical Summary of Care Provided Yes Wound debrided: left leg Wound Grade/Stage: Type of Debridement: Excisional debridement Anesthesia Used: 4% Lidocaine Solution Depth: in the subcutaneous layer Percentage of wound debrided: 100 Instrument Used: #15 blade Tissue Removed: fibrous, devitalized subcutaneous, biofilm, slough Severity: Fat Layer Exposed Amount of bleeding with debridement: Mild Bleeding Controlled with: Pressure Patient tolerated procedure: Patient tolerated procedure well Assessment/Plan Assessment/Plan (1) Delayed wound healing: CODE(S): T14.8XXD - Other injury of unspecified body region, subsequent encounter (2) Ulcer of left lower extremity with fat layer exposed: CODE(S): L97.922 - Non-pressure chronic ulcer of unspecified part of left lower leg with fat layer exposed (3) Osteomyelitis: CODE(S): M86.9 - Osteomyelitis, unspecified PLAN: I reviewed and discussed her case today. Debridement was performed today as noted in the clinical panel to the ulcer site. The following work up and care recommendations were made: Dressing: To resume sterile gauze packing alternated with aquacell ag every other day Wash: Antibacterial soap and water. Avoid soaking. To avoid bathtub bathing where her leg including her wound are submerged. Tissue growth optimization: Advanced product application will be considered after initial work-up is completed. If she does have a documented history of osteomyelitis that is chronic she may be candidate for hyperbaric oxygen therapy. 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 Offload: To avoid direct pressure on the site. Vascular: She has nonpalpable pulses and lack of hair. She also has questionable claudication presentation. I recommend noninvasive vascular studies including MARI, segmental thigh and leg pressure, PVR, and systolic toe pressure. The results were reviewed and she has left biphasic waveforms, left MARI of 1.2, and left toe brachial index is 0.72. The segmental thigh and leg pressures were not obtained. There is not a difference of over 30 mmHg when compared to arm pressures. She is also advised to discontinue all tobacco products to optimize healing and limb salvage opportunities. If lack of healing persists a vascular referral will be provided no there are no gross abnormalities on her noninvasive lower extremity arterial vascular study. Edema: There is mild to moderate edema. To wear Tubigrip for compression management. Compliance was discussed and necessary. Her venous Doppler with reflux evaluation report was reviewed and she does have venous insufficiency to the greater saphenous vein on the left lower limb. Infection: She does not have purulence or erythema today. Her recent culture from 01-05-2021 demonstrated MRSA growth. She was seen recently by infectious disease physician, Dr. Yanet who recommended doxycycline changed to Bactrim. She has started Bactrim and reports rash so this was stopped. A different antibiotic was prescribed the patient reports she did not start that due to cost. At this point she will be monitored for return of infection and additional antibiotics or not particularly recommended. She understands if this worsens IV antibiotics for possibility. No antibiotics are indicated today due to lack of cardinal signs of infection. Pain: Controlled Host factors: She has significant delays in healing. We discussed tobacco cessation and how this impairs healing. She has some muscle wasting and delayed healing and nutritional supplementation would also be beneficial. This is recommended with protein supplementation and 5-10 fresh fruits and vegetables daily. Labs: Updated labs were ordered including CBC, CMP, ESR, C-reactive protein, and hemoglobin A1c. This was completed on 02-27-21 with white blood cell count of 6.4, ESR 24, C-reactive protein 23.5, A1c of 5.5%. Imaging: Updated left leg x-rays were ordered. Reviewed as the following from 02/27/21: There is a healed fracture in the mid third of the left tibia but apparently there is periosteal reaction and what appears to be chronic osteomyelitis with possibility of sinus tract. I answered all the patient's questions. To return to the wound healing center in 2 weeks or call sooner if the patient has any questions or concerns. Note: [employer] speech recognition paint prep technician software was used to create portions of this document. Sound-alike and misspelled words, as well as other paint prep technician errors may be contained in the documentation.
[2021-04-18 10:51] VITALS: BP 130/71; PULSE 90; RESP 18; TEMP 36.4; BMI 20.5
--- NOTE | 2021-04-18 11:12 | PCM.WC.PN ---
History of Present Illness Date of Service: 04/18/21 Chief Complaint: left leg ulcer History of Wound: This 60-year-old female was seen today for left leg ulcer. She completed care plan with Dr. Holt, for demonstrated prior MRSA growth. She completed about 4 weeks of intermittent antibiotics. She was not able to fill the most recent antibiotics recommended due to cost. She denies fever, chill, nausea, vomiting, diarrhea. She tries to wear compression garment. She is not sure if she is decreased her smoking activity. She has been active and has more swelling noted. She has increased pigmentation and inflammation around the ulcer site. Progress of Wound: Overall stable but deteriorating periulcer area Objective Data Objective Data Vital Signs: Vital Signs Temp Pulse Resp BP 97.5 F L 90 18 130/71 H 04/18/21 10:51 04/18/21 10:51 04/18/21 10:51 04/18/21 10:51 Weight: 43.091 kg Body Mass Index (BMI) 20.5 Physical Exam Extremity Extremity Narrative: No calf tenderness Diminished pulses Muscle wasting noted Adjacent skin is atrophic and hairless. Prior skin grafting surgical intervention site noted with cicatrix Now increased ulcer depth noted over 2 cm probes to bone. minimal peripheral ulcer inflammation Skin Skin Narrative: no purulence, no streaking, no odor. mima ulcer hyperpigmentation and edema noted consistent with increased inflammation and possible infection. Neuro Neuro Narrative: lack of normal epicritic sensation via light touch is consistent with neuropathy status Debridement Note Debridement Note Post-Debridement Measurements and Additional Note: Post-Debridement Measurements/Treatment - Nurse 1 - General Ulcer Assessment Start: 04/11/21 10:57 Freq: Status: Active Protocol: [email or web address] Activity Type Activity Date Activity User E-Sign Co-Sign Detail Recorded Client Recorded Date Recorded By Document 04/11/21 10:57 DL [id number] 04/11/21 11:01 DL Document 04/18/21 10:51 RB [id number] 04/18/21 10:53 RB 04/11/21 04/18/21 10:57 10:51 - Today's Visit Information Type of service Nurse-only Follow-up Visit Visit (Physician/DYE ROOM HELPER ) Arrival Mode Ambulatory Ambulatory Transfer Assistance None None Patient Identification Verified (Name & Yes Yes ) Patient Requires Transmission-Based No Precautions Height and Weight Body Mass Index (BMI) 20.5 20.5 BMI Classification Normal Normal Vital Signs Temperature (97.8 F-99.1 F) 97.7 F L 97.5 F L Temperature Source Temporal Temporal Pulse Rate (60-100) 87 90 Pulse Location Monitor Monitor Respiratory Rate (12-18) 20 H 18 Respiratory rate source Observation Observation Blood Pressure (90/60-120/80) 135/50 H 130/71 H Blood Pressure Mean (mm Hg) 78 90 Source Monitor Monitor Position Semi-Fowlers Blood Pressure Location Left Arm History Since Last Visit- (Skip if this is Patient's initial visit) Have you changed medications since your No No last visit? Any new allergies or adverse reactions No No Had a fall/change in ADL's that may No No increase risk of falls Signs or symptoms of abuse and/or No No neglect since last visit Have you been in the hospital since your No No last visit? Has dressing in place as prescribed Yes Yes Has compression in place as prescribed Yes No Has offloadiing in place as prescribed N/A No Experienced any changes in pain level or No No management Left Footwear Regular Shoe Right Footwear Regular Shoe Pain Scale: 0-10 Numeric Is Patient Pain Free? Yes Yes WC - Nurse 1 - General Ulcer Measurement Start: 04/11/21 10:57 Freq: Status: Active Protocol: Activity Type Activity Date Activity User E-Sign Co-Sign Detail Recorded Client Recorded Date Recorded By Document 04/11/21 10:57 DL [id number] 04/11/21 11:01 DL Document 04/18/21 10:51 RB [id number] 04/18/21 10:53 RB 04/11/21 04/18/21 10:57 10:51 Wound Center Nurse 1 #1- L MEDIAL LE -Combined with other wound No -Current Size (cm) - Length 0.4 0.5 -Current Size (cm) - Width 0.3 0.4 -Current Size (cm) - Depth 0.1 0.6 -Total Square Cm 0.12 0.20 -Photo Taken No -Tunneling No -Undermining/Tunneling No -Circular Undermining No -Exudate Amt Small Medium -Exudate Type Serosanguineous Serosanguineous -Wound Margin Distinct, Distinct, Outline Outline Attached Attached -Granulation Amt Large (67-100%) Medium (34-66%) -Granulation Quality Red [place],Red -Slough/Fibrin Yes -Necrosis Amt None Present (0 Small (1-33%) %) -Necrotic Tissue Type Adherent Slough -Structure Exposed N/A N/A -Texture (Mima-wound Skin Appearance) Scarring Assessed, Scarring -Moisture (Mima-wound Skin Appearance) Dry/Scaly Assessed -Color (Mima-wound Skin Appearance) No Abnormality Assessed -Temperature (Mima-wound Skin No Abnormality No Abnormality Appearance) (Pt Warm) (Pt Warm) -Tenderness on Palpation (Mima-wound No No Skin Appearance) -Ulcer Cleansing Rinsed/ Wound Cleanser Irrigated with Saline -Foul Odor after Cleansing No No -Anesthetic Used 4% Lidocaine 4% Lidocaine Solution Solution Left Calf (cm) 31.7 Left Ankle (cm) 22 WC - Nurse 2 - General Ulcer CM Notes Start: 04/11/21 10:57 Freq: Status: Active Protocol: Activity Type Activity Date Activity User E-Sign Co-Sign Detail Recorded Client Recorded Date Recorded By Document 04/11/21 11:18 [id number] 04/11/21 11:19 Document 04/18/21 11:06 [id number] 04/18/21 11:10 04/11/21 04/18/21 11:18 11:06 Wound Center Nurse 2 #1- L MEDIAL LE -Time 11:18 11:06 -Correct Patient Yes Yes -Correct Side, Site, Position Yes Yes -Correct Procedure Yes Yes -Procedure Performed Yes Yes -Type of Procedure Debridement Debridement -Clinical Debridement Subcutaneous Subcutaneous -Tissue Removed Subcutaneous Subcutaneous -Post Debridement (cm) - Length 0.4 0.5 -Post Debridement (cm) - Width 0.4 0.3 -Post Debridement (cm) - Depth 0.4 1.9 -Total Square (Post) (cm) 0.16 0.15 -Area of Debridement (cm) - Length 0.4 0.5 -Area of Debridement (cm) - Width 0.4 0.3 -Total Square (Area) (cm) 0.16 0.15 -Tunneling No No -Undermining/Tunneling No No -Circular Undermining No No -Wound/Ulcer Outcome Not Healed Not Healed -Ulcer Cleansing Rinsed/ Rinsed/ Irrigated with Irrigated with Saline Saline -Foul Odor after Cleansing No No -Bioengineered Tissue No No -Bleeding Controlled with Pressure Pressure -Offloading No No -Treatment Response Procedure Procedure Tolerated Well Tolerated Well -Debridement - Subq, 1st 20sq cm Yes Yes Pain Scale: 0-10 Numeric Is Patient Pain Free? Yes Yes - Nurse 3 - General Ulcer D/C NN Start: 04/11/21 10:57 Freq: Status: Active Protocol: Activity Type Activity Date Activity User E-Sign Co-Sign Detail Recorded Client Recorded Date Recorded By Document 04/11/21 11:27 [id number] 04/11/21 11:27 04/11/21 11:27 Wound Care Nurse 3 #1- L MEDIAL LE -Ulcer Cleansing Rinsed/ Irrigated with Saline -Foul Odor after Cleansing No -Primary Dressing Applied Aquacel AG 2x2 -Primary Dressing Covered/Secured with Dry Gauze, Secured with Tape -Aquacel AG 2x2 1 Pain Scale: 0-10 Numeric Is Patient Pain Free? Yes WC - Visit Discharge Discharge Condition Stable Ambulatory Status Ambulatory Transportation Private Auto Medication Reconcilliation completed & Yes provided to patient/care provider Clinical Summary of Care Provided Yes Wound debrided: left leg Wound Grade/Stage: Type of Debridement: Excisional debridement Anesthesia Used: 4% Lidocaine Solution Depth: in the subcutaneous layer Percentage of wound debrided: 100 Instrument Used: #15 blade Tissue Removed: fibrous, devitalized subcutaneous, biofilm, slough Severity: Fat Layer Exposed Amount of bleeding with debridement: Mild Bleeding Controlled with: Pressure Patient tolerated procedure: Patient tolerated procedure well Assessment/Plan Assessment/Plan (1) Delayed wound healing: CODE(S): T14.8XXD - Other injury of unspecified body region, subsequent encounter (2) Ulcer of left lower extremity with fat layer exposed: CODE(S): L97.922 - Non-pressure chronic ulcer of unspecified part of left lower leg with fat layer exposed (3) Osteomyelitis: CODE(S): M86.9 - Osteomyelitis, unspecified PLAN: I reviewed and discussed her case today. Debridement was performed today as noted in the clinical panel to the ulcer site. The following work up and care recommendations were made: Dressing: To resume sterile gauze packing or dakin use. Wash: Antibacterial soap and water. Avoid soaking. To avoid bathtub bathing where her leg including her wound are submerged. Tissue growth optimization: Advanced product application will be considered after initial work-up is completed. If she does have a documented history of osteomyelitis that is chronic she may be candidate for hyperbaric oxygen therapy. 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 Offload: To avoid direct pressure on the site. Vascular: She has nonpalpable pulses and lack of hair. She also has questionable claudication presentation. I recommend noninvasive vascular studies including MARI, segmental thigh and leg pressure, PVR, and systolic toe pressure. The results were reviewed and she has left biphasic waveforms, left MARI of 1.2, and left toe brachial index is 0.72. The segmental thigh and leg pressures were not obtained. There is not a difference of over 30 mmHg when compared to arm pressures. She is also advised to discontinue all tobacco products to optimize healing and limb salvage opportunities. If lack of healing persists a vascular referral will be provided no there are no gross abnormalities on her noninvasive lower extremity arterial vascular study. Edema: There is mild to moderate edema. To wear Tubigrip for compression management. Compliance was discussed and necessary. Her venous Doppler with reflux evaluation report was reviewed and she does have venous insufficiency to the greater saphenous vein on the left lower limb. Infection: She does not have purulence today. There is increased mima site inflammation and edema. Culture was updated for mrsa pcr, aerobic and anearobic. She has a noted h/o MRSA growth. She was seen previously by infectious disease physician, Dr. Holt who updated her antibiotics on several occasions due to various intolerences and side effects. She understands if this worsens IV antibiotics for possibility; this will be recommended if continue bacterial growth is noted. Additional OR debridement with application of advanced product will also be considered. Pain: Controlled Host factors: She has significant delays in healing. We discussed tobacco cessation and how this impairs healing. She has some muscle wasting and delayed healing and nutritional supplementation would also be beneficial. This is recommended with protein supplementation and 5-10 fresh fruits and vegetables daily. Labs: Updated labs were ordered including CBC, CMP, ESR, C-reactive protein, and hemoglobin A1c. Will review upon completion. A1c of 5.5%. Imaging: Left leg xrays were reviewed as the following from 02/27/21: There is a healed fracture in the mid third of the left tibia but apparently there is periosteal reaction and what appears to be chronic osteomyelitis with possibility of sinus tract. I answered all the patient's questions. To return to the wound healing center in 1 week or call sooner if the patient has any questions or concerns. Note: [employer] speech recognition behavioral health assistant software was used to create portions of this document. Sound-alike and misspelled words, as well as other behavioral health assistant errors may be contained in the documentation. The medical decision making level is moderate based on data including at least three of the following: review of prior external notes, review of a test, ordering a test. The medical decision making level is moderate. There is noted moderate risk of morbidity after considering this treatment plan and diagnostic data. Considerations were given to prescription management, decisions regarding surgical options, or social determinants of health. The problems addressed require a moderate decision making level which includes one or more chronic illnesses (w/ exacerbation, progression, or side effects), two or more stable chronic illnesses, one undiagnosed new problem w/ uncertain prognosis, one acute illness with systemic symptoms, or one acute complicated injury.
[2021-04-18 15:02] LABS: M R Staph aureus DNA By PCR POSITIVE (Negative); Probe Check PASS; Staph aureus DNA By PCR POSITIVE (Negative)
--- NOTE | 2021-04-23 08:45 | WC ---
Called and left a message with Aminah letting her know that Dr Schilling wants her to see Dr Holt based on her wound culture. Referral was sent and encouraged patient to keep an eye out for any out of town calls so she doesn't miss their call.
[2021-04-25 09:22] VITALS: BP 129/54; PULSE 85; RESP 16; TEMP 36.2; BMI 20.5
--- NOTE | 2021-04-25 14:03 | PCM.WC.PN ---
History of Present Illness Date of Service: 04/25/21 Chief Complaint: left leg ulcer History of Wound: This 60-year-old female was seen today for left leg ulcer. She completed care plan with Dr. Holt, for demonstrated prior MRSA growth. She completed about 4 weeks of intermittent antibiotics. It is noted that she was not able to tolerate Bactrim or doxycycline due to side effects. She was previously not able to get linezolid due to insurance coverage issues. It is noted she is also demonstrating clindamycin resistance. She is scheduled to see infectious disease specialist next Friday. She denies fever, chill, nausea, vomiting, diarrhea. She tries to wear compression garment. She is not sure if she is decreased her smoking activity. Her swelling and local skin irritation ulcer site fluctuates. Progress of Wound: Overall stable but continued intermittent deteriorating periulcer area Objective Data Objective Data Vital Signs: Vital Signs Temp Pulse Resp BP 97.1 F L 85 16 129/54 H 04/25/21 09:22 04/25/21 09:22 04/25/21 09:22 04/25/21 09:22 Oxygen Delivery Method Room Air Weight: 43.091 kg Body Mass Index (BMI) 20.5 Lab / Micro Data Micro: Microbiology 04/18/21 11:10 Wound Abcess - Leg, Left Gram Stain - Final 04/18/21 11:10 Wound Abcess - Leg, Left Wound Culture - Final Meth. resistant Staph. aureus 04/18/21 11:10 Wound Abcess - Leg, Left Anaerobic Culture - Final No anaerobic bacteria isolated. Physical Exam Extremity Extremity Narrative: No calf tenderness Diminished pulses Muscle wasting noted Adjacent skin is atrophic and hairless. Prior skin grafting surgical intervention site noted with cicatrix Now increased ulcer depth noted decreased compared to last visit of about 0.7 cm. minimal peripheral ulcer inflammation and edema compared to last week Skin Skin Narrative: no purulence, no streaking, no odor. mima ulcer hyperpigmentation and edema continued Neuro Neuro Narrative: lack of normal epicritic sensation via light touch is consistent with neuropathy status Debridement Note Debridement Note Post-Debridement Measurements and Additional Note: Post-Debridement Measurements/Treatment YVETTE - Nurse 1 - General Ulcer Assessment Start: 04/11/21 10:57 Freq: Status: Active Protocol: ELENA Activity Type Activity Date Activity User E-Sign Co-Sign Detail Recorded Client Recorded Date Recorded By Document 04/11/21 10:57 DL [id number] 04/11/21 11:01 DL Document 04/18/21 10:51 RB [id number] 04/18/21 10:53 RB Document 04/25/21 09:22 BM [id number] 04/25/21 09:27 BM 04/11/21 04/18/21 04/25/21 10:57 10:51 09:22 WC - Today's Visit Information Type of service Nurse-only Follow-up Visit Follow-up Visit Visit (Physician/SUPERVISOR SIGN [employer]OP (Physician/SUPERVISOR SIGN SHOP ) ) Arrival Mode Ambulatory Ambulatory Ambulatory Transfer Assistance None None None Patient Identification Verified (Name & Yes Yes Yes ) Patient Requires Transmission-Based No No Precautions Height and Weight Body Mass Index (BMI) 20.5 20.5 20.5 BMI Classification Normal Normal Normal Vital Signs Temperature (97.8 F-99.1 F) 97.7 F L 97.5 F L 97.1 F L Temperature Source Temporal Temporal Temporal Pulse Rate (60-100) 87 90 85 Pulse Location Monitor Monitor Monitor Respiratory Rate (12-18) 20 H 18 16 Respiratory rate source Observation Observation Observation Oxygen Delivery Method Room Air Blood Pressure (90/60-120/80) 135/50 H 130/71 H 129/54 H Blood Pressure Mean (mm Hg) 78 90 79 Source Monitor Monitor Monitor Position Semi-Fowlers Sitting Blood Pressure Location Left Arm Right Arm History Since Last Visit- (Skip if this is Patient's initial visit) Have you changed medications since your No No No last visit? Any new allergies or adverse reactions No No No Had a fall/change in ADL's that may No No No increase risk of falls Signs or symptoms of abuse and/or No No No neglect since last visit Have you been in the hospital since your No No No last visit? Has dressing in place as prescribed Yes Yes Yes Has compression in place as prescribed Yes No Yes Has offloadiing in place as prescribed N/A No N/A Experienced any changes in pain level or No No No management Left Footwear Regular Shoe Regular Shoe Right Footwear Regular Shoe Regular Shoe Pain Scale: 0-10 Numeric Is Patient Pain Free? Yes Yes Yes WC - Nurse 1 - General Ulcer Measurement Start: 04/11/21 10:57 Freq: Status: Active Protocol: Activity Type Activity Date Activity User E-Sign Co-Sign Detail Recorded Client Recorded Date Recorded By Document 04/11/21 10:57 DL [id number] 04/11/21 11:01 DL Document 04/18/21 10:51 RB [id number] 04/18/21 10:53 RB Document 04/25/21 09:22 [facility] [id number] 04/25/21 09:27 [facility] 04/11/21 04/18/21 04/25/21 10:57 10:51 09:22 Wound Center Nurse 1 #1- L MEDIAL LE -Combined with other wound No No -Current Size (cm) - Length 0.4 0.5 0.4 -Current Size (cm) - Width 0.3 0.4 0.3 -Current Size (cm) - Depth 0.1 0.6 0.2 -Total Square Cm 0.12 0.20 0.12 -Photo Taken No No -Epithelialization None Present -Tunneling No No -Undermining/Tunneling No No -Circular Undermining No No -Exudate Amt Small Medium Medium -Exudate Type Serosanguineous Serosanguineous Serosanguineous -Wound Margin Distinct, Distinct, Distinct, Outline Outline Outline Attached Attached Attached -Granulation Amt Large (67-100%) Medium (34-66%) Medium (34-66%) -Granulation Quality Red [place],Red Red -Slough/Fibrin Yes Yes -Necrosis Amt None Present (0 Small (1-33%) Medium (34-66%) %) -Necrotic Tissue Type Adherent Slough Adherent Slough -Structure Exposed N/A N/A -Texture (Mima-wound Skin Appearance) Scarring Assessed, Assessed, Scarring Scarring -Moisture (Mima-wound Skin Appearance) Dry/Scaly Assessed Assessed,Dry/ Scaly -Color (Mima-wound Skin Appearance) No Abnormality Assessed Assessed -Temperature (Mima-wound Skin No Abnormality No Abnormality Appearance) (Pt Warm) (Pt Warm) -Tenderness on Palpation (Mima-wound No No Skin Appearance) -Ulcer Cleansing Rinsed/ Wound Cleanser Rinsed/ Irrigated with Irrigated with Saline Saline -Foul Odor after Cleansing No No No -Anesthetic Used 4% Lidocaine 4% Lidocaine 5% Lidocaine Solution Solution Gel Lower Limb Edema Present Yes Right Calf (cm) 32.1 Point of Measurement (cm from the medial 21.7 instep) Left Calf (cm) 31.7 Left Ankle (cm) 22 - Nurse 2 - General Ulcer CM Notes Start: 04/11/21 10:57 Freq: Status: Active Protocol: Activity Type Activity Date Activity User E-Sign Co-Sign Detail Recorded Client Recorded Date Recorded By Document 04/11/21 11:18 [id number] 04/11/21 11:19 JF Document 04/18/21 11:06 JF [id number] 04/18/21 11:10 JF Document 04/25/21 10:19 [id number] 04/25/21 10:23 JF 04/11/21 04/18/21 04/25/21 11:18 11:06 10:19 Wound Center Nurse 2 #1- L MEDIAL LE -Time 11:18 11:06 10:20 -Correct Patient Yes Yes Yes -Correct Side, Site, Position Yes Yes Yes -Correct Procedure Yes Yes Yes -Procedure Performed Yes Yes Yes -Type of Procedure Debridement Debridement Debridement -Clinical Debridement Subcutaneous Subcutaneous Subcutaneous -Tissue Removed Subcutaneous Subcutaneous Subcutaneous -Post Debridement (cm) - Length 0.4 0.5 0.4 -Post Debridement (cm) - Width 0.4 0.3 0.4 -Post Debridement (cm) - Depth 0.4 1.9 0.8 -Total Square (Post) (cm) 0.16 0.15 0.16 -Area of Debridement (cm) - Length 0.4 0.5 0.4 -Area of Debridement (cm) - Width 0.4 0.3 0.4 -Total Square (Area) (cm) 0.16 0.15 0.16 -Tunneling No No No -Undermining/Tunneling No No No -Circular Undermining No No No -Wound/Ulcer Outcome Not Healed Not Healed Not Healed -Ulcer Cleansing Rinsed/ Rinsed/ Rinsed/ Irrigated with Irrigated with Irrigated with Saline Saline Saline -Foul Odor after Cleansing No No No -Bioengineered Tissue No No No -Bleeding Controlled with Pressure Pressure Pressure -Offloading No No No -Treatment Response Procedure Procedure Procedure Not Tolerated Well Tolerated Well Tolerated Well -Debridement - Subq, 1st 20sq cm Yes Yes Yes Pain Scale: 0-10 Numeric Is Patient Pain Free? Yes Yes Yes YVETTE - Nurse 3 - General Ulcer D/C NN Start: 04/11/21 10:57 Freq: Status: Active Protocol: Activity Type Activity Date Activity User E-Sign Co-Sign Detail Recorded Client Recorded Date Recorded By Document 04/11/21 11:27 [id number] 04/11/21 11:27 Document 04/18/21 11:28 RB [id number] 04/18/21 11:28 RB Document 04/25/21 10:34 RB [id number] 04/25/21 10:36 RB 04/11/21 04/18/21 04/25/21 11:27 11:28 10:34 Wound Care Nurse 3 #1- L MEDIAL LE -Ulcer Cleansing Rinsed/ Rinsed/ Rinsed/ Irrigated with Irrigated with Irrigated with Saline Saline Saline -Foul Odor after Cleansing No -Primary Dressing Applied Aquacel AG 2x2 Aquacel AG 2x2 Aquacel AG 4x4 -Primary Dressing Covered/Secured with Dry Gauze, Dry Gauze,Dry Dry Gauze,Dry Secured with Gauze & Roll Gauze & Roll Tape Gauze,Secured Gauze,Secured with Tape with Tape -Aquacel AG 4x4 1 -Aquacel AG 2x2 1 1 Left -Tubular Bandage Single Layer Single Layer -Size of Tubigrip Used Size C Size C -Size C ($) 1 1 -Other irving Treatment Response Procedure Procedure Tolerated Well Tolerated Well Pain Scale: 0-10 Numeric Is Patient Pain Free? Yes Yes Yes WC - Visit Discharge Discharge Condition Stable Stable Stable Ambulatory Status Ambulatory Ambulatory Ambulatory Transportation Private Auto Private Auto Private Auto Medication Reconcilliation completed & Yes No No provided to patient/care provider Clinical Summary of Care Provided Yes Yes Yes Wound debrided: Left leg Wound Grade/Stage: Type of Debridement: Excisional debridement Anesthesia Used: 4% Lidocaine Solution Depth: in the subcutaneous layer Percentage of wound debrided: 100 Instrument Used: #15 blade Tissue Removed: fibrous, devitalized subcutaneous, biofilm, slough Severity: Fat Layer Exposed Amount of bleeding with debridement: Mild Bleeding Controlled with: Pressure Patient tolerated procedure: Patient tolerated procedure well Assessment/Plan Assessment/Plan (1) Delayed wound healing: CODE(S): T14.8XXD - Other injury of unspecified body region, subsequent encounter (2) Ulcer of left lower extremity with fat layer exposed: CODE(S): L97.922 - Non-pressure chronic ulcer of unspecified part of left lower leg with fat layer exposed (3) Osteomyelitis: CODE(S): M86.9 - Osteomyelitis, unspecified PLAN: I reviewed and discussed her case today. Debridement was performed today as noted in the clinical panel to the ulcer site. The following work up and care recommendations were made: Dressing: To resume sterile gauze packing or dakin use. Wash: Antibacterial soap and water. Avoid soaking. To avoid bathtub bathing where her leg including her wound are submerged. Tissue growth optimization: If she does have a documented history of osteomyelitis that is chronic she may be candidate for hyperbaric oxygen therapy. 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 Offload: To avoid direct pressure on the site. Vascular: She has nonpalpable pulses and lack of hair. She also has questionable claudication presentation. I recommend noninvasive vascular studies including MARI, segmental thigh and leg pressure, PVR, and systolic toe pressure. The results were reviewed and she has left biphasic waveforms, left MARI of 1.2, and left toe brachial index is 0.72. The segmental thigh and leg pressures were not obtained. There is not a difference of over 30 mmHg when compared to arm pressures. She is also advised to discontinue all tobacco products to optimize healing and limb salvage opportunities. Due to ongoing lack of healing, a vascular referral was provided today Dr. Rdz to see if additional testing or treatment may improve her chance of healing. Edema: There is mild to moderate edema. To wear Tubigrip for compression management. Compliance was discussed and necessary. I do not see an up-to-date venous Doppler with reflux evaluation exam on file [facility]. Orders placed today to get an updated status. Infection: She does not have purulence today. There is increased mima site inflammation and edema. Culture was previously updated for mrsa pcr, aerobic and anearobic. She has a noted h/o MRSA growth. She was seen previously by infectious disease physician, Dr. Holt who updated her antibiotics on several occasions due to various intolerances and side effects. I recommend considering IV antibiotics due to her continued MRSA infections. Additional OR debridement with application of advanced product will also be considered. Pain: Controlled Host factors: She has significant delays in healing. We discussed tobacco cessation and how this impairs healing. She has some muscle wasting and delayed healing and nutritional supplementation would also be beneficial. Labs: Updated labs were ordered including CBC, CMP, ESR, C-reactive protein, and hemoglobin A1c. No leukocytosis was noted. ESR 24. CRP 23.5. No gross abnormalities with CMP. A1c of 5.5%. Imaging: Left leg xrays were reviewed as the following from 02/27/21: There is a healed fracture in the mid third of the left tibia but apparently there is periosteal reaction and what appears to be chronic osteomyelitis with possibility of sinus tract. I answered all the patient's questions. To return to the wound healing center in 1 week or call sooner if the patient has any questions or concerns. Note: [employer] speech recognition gasket former software was used to create portions of this document. Sound-alike and misspelled words, as well as other gasket former errors may be contained in the documentation. 21 minutes was spent on this encounter. This included face to face and non face to face care including preparing for the visit, reviewing the history, performing the exam, counseling and providing education to the patient, family, or caregiver, ordering medications/test/ procedures if indicated as documented, communicating with other healthcare providers, documenting information in the medical record, interpreting / sharing this information when indicated as documented, and care coordination.
[2021-05-02 14:08] VITALS: BP 141/68; PULSE 87; RESP 16; TEMP 36.1; BMI 20.5
--- NOTE | 2021-05-02 15:19 | PN.PCM_ITS ---
History of Present Illness Date of Service: 05/02/21 Chief Complaint: left leg ulcer History of Wound: This 60-year-old female was seen today for left leg ulcer. She completed care plan with Dr. Holt, for demonstrated prior MRSA growth. She completed about 4 weeks of intermittent antibiotics. It is noted that she was not able to tolerate Bactrim or doxycycline due to side effects. She was previously not able to get linezolid due to insurance coverage issues. It is noted she is also demonstrating clindamycin resistance. She was also seen by infectious disease session today, Dr. Holt. She denies fever, chill, nausea, vomiting, diarrhea. She tries to wear compression garment. She is not sure if she is decreased her smoking activity. Her swelling and local skin irritation ulcer site fluctuates and is not noted today. There is some thicker drainage reported by the patient she is unsure if this is from Aquacel application or if this is purulence. Progress of Wound: Overall stable with notable lack of healing Objective Data Objective Data Vital Signs: Vital Signs Temp Pulse Resp BP 96.9 F L 87 16 141/68 H 05/02/21 14:08 05/02/21 14:08 05/02/21 14:08 05/02/21 14:08 Oxygen Delivery Method Room Air Weight: 43.091 kg Body Mass Index (BMI) 20.5 Lab / Micro Data Micro: Microbiology 04/18/21 11:10 Wound Abcess - Leg, Left Gram Stain - Final 04/18/21 11:10 Wound Abcess - Leg, Left Wound Culture - Final Meth. resistant Staph. aureus 04/18/21 11:10 Wound Abcess - Leg, Left Anaerobic Culture - Final No anaerobic bacteria isolated. Physical Exam Extremity Extremity Narrative: No calf tenderness Diminished pulses Muscle wasting noted Adjacent skin is atrophic and hairless. Prior skin grafting surgical intervention site noted with cicatrix Now increased ulcer depth noted over 1 cm with positive probe to bone. decreased peripheral ulcer inflammation and edema compared to last week Skin Skin Narrative: no purulence, no streaking, no odor. mima ulcer hyp erpigmentation and edema continued Neuro Neuro Narrative: lack of normal epicritic sensation via light touch is consistent with neuropathy status Debridement Note Debridement Note Post-Debridement Measurements and Additional Note: Post-Debridement Measurements/Treatment WC - Nurse 1 - General Ulcer Assessment Start: 04/11/21 10:57 Freq: Status: Active Protocol: WC.LOWEXT Activity Type Activity Date Activity User E-Sign Co-Sign Detail Recorded Client Recorded Date Recorded By Document 04/11/21 10:57 DL [id number] 04/11/21 11:01 DL Document 04/18/21 10:51 RB [id number] 04/18/21 10:53 RB Document 04/25/21 09:22 BMF [id number] 04/25/21 09:27 BMF Document 05/02/21 14:08 BMF Desktop 05/02/21 14:11 F 04/11/21 04/18/21 04/25/21 10:57 10:51 09:22 WC - Today's Visit Information Type of service Nurse-only Follow-up Visit Follow-up Visit Visit (Physician/PARK GUARD (Physician/PARK GUARD ) ) Arrival Mode Ambulatory Ambulatory Ambulatory Transfer Assistance None None None Patient Identification Verified (Name & Yes Yes Yes ) Patient Requires Transmission-Based No No Precautions Height and Weight Body Mass Index (BMI) 20.5 20.5 20.5 BMI Classification Normal Normal Normal Vital Signs Temperature (97.8 F-99.1 F) 97.7 F L 97.5 F L 97.1 F L Temperature Source Temporal Temporal Temporal Pulse Rate (60-100) 87 90 85 Pulse Location Monitor Monitor Monitor Respiratory Rate (12-18) 20 H 18 16 Respiratory rate source Observation Observation Observation Oxygen Delivery Method Room Air Blood Pressure (90/60-120/80) 135/50 H 130/71 H 129/54 H Blood Pressure Mean (mm Hg) 78 90 79 Source Monitor Monitor Monitor Position Semi-Fowlers Sitting Blood Pressure Location Left Arm Right Arm History Since Last Visit- (Skip if this is Patient's initial visit) Have you changed medications since your No No No last visit? Any new allergies or adverse reactions No No No Had a fall/change in ADL's that may No No No increase risk of falls Signs or symptoms of abuse and/or No No No neglect since last visit Have you been in the hospital since your No No No last visit? Has dressing in place as prescribed Yes Yes Yes Has compression in place as prescribed Yes No Yes Has offloadiing in place as prescribed N/A No N/A Experienced any changes in pain level or No No No management Left Footwear Regular Shoe Regular Shoe Right Footwear Regular Shoe Regular Shoe Pain Scale: 0-10 Numeric Is Patient Pain Free? Yes Yes Yes 05/02/21 14:08 WC - Today's Visit Information Type of service Follow-up Visit (Physician/PARK GUARD ) Arrival Mode Ambulatory Transfer Assistance None Patient Identification Verified (Name & Yes ) Patient Requires Transmission-Based No Precautions Height and Weight Body Mass Index (BMI) 20.5 BMI Classification Normal Vital Signs Temperature (97.8 F-99.1 F) 96.9 F L Temperature Source Temporal Pulse Rate (60-100) 87 Pulse Location Monitor Respiratory Rate (12-18) 16 Respiratory rate source Observation Oxygen Delivery Method Room Air Blood Pressure (90/60-120/80) 141/68 H Blood Pressure Mean (mm Hg) 92 Source Monitor Position Sitting Blood Pressure Location Left Arm History Since Last Visit- (Skip if this is Patient's initial visit) Have you changed medications since your No last visit? Any new allergies or adverse reactions No Had a fall/change in ADL's that may No increase risk of falls Signs or symptoms of abuse and/or No neglect since last visit Have you been in the hospital since your No last visit? Has dressing in place as prescribed Yes Has compression in place as prescribed Yes Has offloadiing in place as prescribed N/A Experienced any changes in pain level or No management Left Footwear Regular Shoe Right Footwear Regular Shoe Pain Scale: 0-10 Numeric Is Patient Pain Free? Yes - Nurse 1 - General Ulcer Measurement Start: 04/11/21 10:57 Freq: Status: Active Protocol: Activity Type Activity Date Activity User E-Sign Co-Sign Detail Recorded Client Recorded Date Recorded By Document 04/11/21 10:57 DL [id number] 04/11/21 11:01 DL Document 04/18/21 10:51 RB [id number] 04/18/21 10:53 RB Document 04/25/21 09:22 BMF [id number] 04/25/21 09:27 BMF Document 05/02/21 14:08 [facility] Desktop 05/02/21 14:11 [facility] 04/11/21 04/18/21 04/25/21 10:57 10:51 09:22 Wound Center Nurse 1 #1- L MEDIAL LE -Combined with other wound No No -Current Size (cm) - Length 0.4 0.5 0.4 -Current Size (cm) - Width 0.3 0.4 0.3 -Current Size (cm) - Depth 0.1 0.6 0.2 -Total Square Cm 0.12 0.20 0.12 -Photo Taken No No -Epithelialization None Present -Tunneling No No -Undermining/Tunneling No No -Undermining/Tunneling Starts (O'clock ) -Undermining/Tunneling Ends (O'clock) -Maximum Distance (cm) -Circular Undermining No No -Exudate Amt Small Medium Medium -Exudate Type Serosanguineous Serosanguineous Serosanguineous -Wound Margin Distinct, Distinct, Distinct, Outline Outline Outline Attached Attached Attached -Granulation Amt Large (67-100%) Medium (34-66%) Medium (34-66%) -Granulation Quality Red [place],Red Red -Slough/Fibrin Yes Yes -Necrosis Amt None Present (0 Small (1-33%) Medium (34-66%) %) -Necrotic Tissue Type Adherent Slough Adherent Slough -Structure Exposed N/A N/A -Texture (Mima-wound Skin Appearance) Scarring Assessed, Assessed, Scarring Scarring -Moisture (Mima-wound Skin Appearance) Dry/Scaly Assessed Assessed,Dry/ Scaly -Color (Mima-wound Skin Appearance) No Abnormality Assessed Assessed -Temperature (Mima-wound Skin No Abnormality No Abnormality Appearance) (Pt Warm) (Pt Warm) -Tenderness on Palpation (Mima-wound No No Skin Appearance) -Ulcer Cleansing Rinsed/ Wound Cleanser Rinsed/ Irrigated with Irrigated with Saline Saline -Foul Odor after Cleansing No No No -Anesthetic Used 4% Lidocaine 4% Lidocaine 5% Lidocaine Solution Solution Gel Lower Limb Edema Present Yes Right Calf (cm) 32.1 Point of Measurement (cm from the medial 21.7 instep) Left Calf (cm) 31.7 Left Ankle (cm) 05/02/21 14:08 Wound Center Nurse 1 #1- L MEDIAL LE -Combined with other wound No -Current Size (cm) - Length 0.3 -Current Size (cm) - Width 0.3 -Current Size (cm) - Depth 0.8 -Total Square Cm 0.09 -Photo Taken No -Epithelialization None Present -Tunneling No -Undermining/Tunneling Yes -Undermining/Tunneling Starts (O'clock 12 ) -Undermining/Tunneling Ends (O'clock) 12 -Maximum Distance (cm) 0.3 -Circular Undermining Yes -Exudate Amt Medium -Exudate Type Purulent -Wound Margin Distinct, Outline Attached -Granulation Amt Medium (34-66%) -Granulation Quality Red -Slough/Fibrin Yes -Necrosis Amt Medium (34-66%) -Necrotic Tissue Type Adherent Slough -Structure Exposed -Texture (Mima-wound Skin Appearance) Assessed, Scarring -Moisture (Mima-wound Skin Appearance) Assessed -Color (Mima-wound Skin Appearance) Assessed -Temperature (Mima-wound Skin No Abnormality Appearance) (Pt Warm) -Tenderness on Palpation (Mima-wound No Skin Appearance) -Ulcer Cleansing Rinsed/ Irrigated with Saline -Foul Odor after Cleansing No -Anesthetic Used 5% Lidocaine Gel Lower Limb Edema Present Right Calf (cm) Point of Measurement (cm from the medial instep) Left Calf (cm) Left Ankle (cm) WC - Nurse 2 - General Ulcer CM Notes Start: 04/11/21 10:57 Freq: Status: Active Protocol: Activity Type Activity Date Activity User E-Sign Co-Sign Detail Recorded Client Recorded Date Recorded By Document 04/11/21 11:18 [id number] 04/11/21 11:19 Document 04/18/21 11:06 [id number] 04/18/21 11:10 Document 04/25/21 10:19 JF [id number] 04/25/21 10:23 Document 05/02/21 14:44 [id number] 05/02/21 14:47 Edit Result 05/02/21 14:44 JF (1) [id number] 05/02/21 14:48 JF (1) #1- L MEDIAL LE - Post Debridement (cm) - Depth 0.8 => 1.1 04/11/21 04/18/21 04/25/21 11:18 11:06 10:19 Wound Center Nurse 2 #1- L MEDIAL LE -Time 11:18 11:06 10:20 -Correct Patient Yes Yes Yes -Correct Side, Site, Position Yes Yes Yes -Correct Procedure Yes Yes Yes -Procedure Performed Yes Yes Yes -Type of Procedure Debridement Debridement Debridement -Clinical Debridement Subcutaneous Subcutaneous Subcutaneous -Tissue Removed Subcutaneous Subcutaneous Subcutaneous -Post Debridement (cm) - Length 0.4 0.5 0.4 -Post Debridement (cm) - Width 0.4 0.3 0.4 -Post Debridement (cm) - Depth 0.4 1.9 0.8 -Total Square (Post) (cm) 0.16 0.15 0.16 -Area of Debridement (cm) - Length 0.4 0.5 0.4 -Area of Debridement (cm) - Width 0.4 0.3 0.4 -Total Square (Area) (cm) 0.16 0.15 0.16 -Tunneling No No No -Undermining/Tunneling No No No -Circular Undermining No No No -Wound/Ulcer Outcome Not Healed Not Healed Not Healed -Ulcer Cleansing Rinsed/ Rinsed/ Rinsed/ Irrigated with Irrigated with Irrigated with Saline Saline Saline -Foul Odor after Cleansing No No No -Bioengineered Tissue No No No -Bleeding Controlled with Pressure Pressure Pressure -Offloading No No No -Treatment Response Procedure Procedure Procedure Not Tolerated Well Tolerated Well Tolerated Well -Debridement - Subq, 1st 20sq cm Yes Yes Yes Pain Scale: 0-10 Numeric Is Patient Pain Free? Yes Yes Yes 05/02/21 14:44 Wound Center Nurse 2 #1- L [facility] LE -Time 14:46 -Correct Patient Yes -Correct Side, Site, Position Yes -Correct Procedure Yes -Procedure Performed Yes -Type of Procedure Debridement -Clinical Debridement Subcutaneous -Tissue Removed Subcutaneous -Post Debridement (cm) - Length 0.4 -Post Debridement (cm) - Width 0.4 -Post Debridement (cm) - Depth 1.1 -Total Square (Post) (cm) 0.16 -Area of Debridement (cm) - Length 0.4 -Area of Debridement (cm) - Width 0.4 -Total Square (Area) (cm) 0.16 -Tunneling No -Undermining/Tunneling No -Circular Undermining No -Wound/Ulcer Outcome Not Healed -Ulcer Cleansing Rinsed/ Irrigated with Saline -Foul Odor after Cleansing No -Bioengineered Tissue No -Bleeding Controlled with Pressure -Offloading No -Treatment Response Procedure Tolerated Well -Debridement - Subq, 1st 20sq cm Yes Pain Scale: 0-10 Numeric Is Patient Pain Free? Yes WC - Nurse 3 - General Ulcer D/C NN Start: 04/11/21 10:57 Freq: Status: Active Protocol: Activity Type Activity Date Activity User E-Sign Co-Sign Detail Recorded Client Recorded Date Recorded By Document 04/11/21 11:27 JF [id number] 04/11/21 11:27 JF Document 04/18/21 11:28 RB [id number] 04/18/21 11:28 RB Document 04/25/21 10:34 RB [id number] 04/25/21 10:36 RB Document 05/02/21 15:08 BM Desktop 05/02/21 15:09 [facility] 04/11/21 04/18/21 04/25/21 11:27 11:28 10:34 Wound Care Nurse 3 #1- L MEDIAL LE -Ulcer Cleansing Rinsed/ Rinsed/ Rinsed/ Irrigated with Irrigated with Irrigated with Saline Saline Saline -Foul Odor after Cleansing No -Primary Dressing Applied Aquacel AG 2x2 Aquacel AG 2x2 Aquacel AG 4x4 -Primary Dressing Covered/Secured with Dry Gauze, Dry Gauze,Dry Dry Gauze,Dry Secured with Gauze & Roll Gauze & Roll Tape Gauze,Secured Gauze,Secured with Tape with Tape -Aquacel AG 4x4 1 -Aquacel AG 2x2 1 1 Left -Compression Wrap -Tubular Bandage Single Layer Single Layer -Size of Tubigrip Used Size C Size C -Size C ($) 1 1 -Other ino Treatment Response Procedure Procedure Tolerated Well Tolerated Well Pain Scale: 0-10 Numeric Is Patient Pain Free? Yes Yes Yes WC - Visit Discharge Discharge Condition Stable Stable Stable Ambulatory Status Ambulatory Ambulatory Ambulatory Transportation Private Auto Private Auto Private Auto Medication Reconcilliation completed & Yes No No provided to patient/care provider Clinical Summary of Care Provided Yes Yes Yes 05/02/21 15:08 Wound Care Nurse 3 #1- L MEDIAL LE -Ulcer Cleansing Rinsed/ Irrigated with Saline -Foul Odor after Cleansing No -Primary Dressing Applied Aquacel AG 4x4 -Primary Dressing Covered/Secured with Dry Gauze & Roll Gauze, Secured with Tape -Aquacel AG 4x4 1 -Aquacel AG 2x2 Left -Compression Wrap Ino Wrap -Tubular Bandage Single Layer -Size of Tubigrip Used Size C -Size C ($) 1 -Other Treatment Response Procedure Tolerated Well Pain Scale: 0-10 Numeric Is Patient Pain Free? Yes WC - Visit Discharge Discharge Condition Stable Ambulatory Status Ambulatory Transportation Private Auto Medication Reconcilliation completed & provided to patient/care provider Clinical Summary of Care Provided Wound debrided: Wound Grade/Stage: Type of Debridement: Excisional debridement Anesthesia Used: 4% Lidocaine Solution Depth: in the subcutaneous layer Percentage of wound debrided: 100 Instrument Used: #15 blade and - (2 mm curette) Tissue Removed: fibrous, devitalized subcutaneous, biofilm, slough Severity: Fat Layer Exposed Amount of bleeding with debridement: Mild Bleeding Controlled with: Pressure Patient tolerated procedure: Patient tolerated procedure well Assessment/Plan Assessment/Plan (1) Delayed wound healing: CODE(S): T14.8XXD - Other injury of unspecified body region, subsequent encounter (2) Ulcer of left lower extremity with fat layer exposed: CODE(S): L97.922 - Non-pressure chronic ulcer of unspecified part of left lower leg with fat layer exposed (3) Osteomyelitis: CODE(S): M86.9 - Osteomyelitis, unspecified PLAN: I reviewed and discussed her case today. Debridement was performed today as noted in the clinical panel to the ulcer site. The following work up and care recommendations were made: Dressing: To resume sterile gauze packing or dakin use. Wash: Antibacterial soap and water. Avoid soaking. To avoid bathtub bathing where her leg including her wound are submerged. Tissue growth optimization: If she does have a documented history of osteomyelitis that is chronic she may be a candidate for hyperbaric oxygen therapy. 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 Offload: To avoid direct pressure on the site. Vascular: She has nonpalpable pulses and lack of hair. She also has questionable claudication presentation. I recommend noninvasive vascular studies including MARI, segmental thigh and leg pressure, PVR, and systolic toe pressure. The results were reviewed and she has left biphasic waveforms, left MARI of 1.2, and left toe brachial index is 0.72. The segmental thigh and leg pressures were not obtained. There is not a difference of over 30 mmHg when compared to arm pressures. She is also advised to discontinue all tobacco products to optimize healing and limb salvage opportunities. Due to ongoing lack of healing, a vascular referral was provided today Dr. Rdz to see if additional testing or treatment may improve her chance of healing. Edema: There is mild to moderate edema. To wear Tubigrip for compression management. Compliance was discussed and necessary. I do not see an up-to-date venous Doppler with reflux evaluation exam on file [facility]. Orders placed placed and exam is pending. Infection: She does not have purulent drainage today however she reports she saw some on her dressing. To monitor for this. She understands that Aquacel Ag can at times cause caramelization of wound drainage which can look fibrinous or even purulent at times. Culture was previously updated for mrsa pcr, aerobic and anearobic. She has a noted h/o MRSA growth. I recommend considering IV antibiotics due to her continued MRSA infections. She saw Dr. Holt this afternoon and a PICC line was ordered. Input is appreciated. Additional operating room debridement with application of advanced product will also be considered. She does not want to proceed forward with this at this time and she was advised to consider this again in which it would be optimal to do this while she is being treated with IV antibiotics again. She understands other surgical options would involve an orthopedic referral including a tibia formal bone biopsy versus below-knee amputation. Pain: Controlled Host factors: She has significant delays in healing. We discussed tobacco cessation and how this impairs healing. She has some muscle wasting and delayed healing and nutritional supplementation would also be beneficial. Labs: Updated labs were recently updated including CBC, CMP, ESR, C-reactive protein, and hemoglobin A1c. No leukocytosis was noted. ESR 24. CRP 23.5. No gross abnormalities with CMP. A1c of 5.5%. Imaging: Left leg xrays were reviewed as the following from 02/27/21: There is a healed fracture in the mid third of the left tibia but apparently there is periosteal reaction and what appears to be chronic osteomyelitis with possibilit y of sinus tract. I answered all the patient's questions. To return to the wound healing center in 1 week or call sooner if the patient has any questions or concerns. Discussed with Dr. Holt. Note: [employer] speech recognition manager dish software was used to create portions of this document. Sound-alike and misspelled words, as well as other manager dish errors may be contained in the documentation.
--- NOTE | 2021-05-02 20:18 | PCM.PN.ID ---
Physical Exam Narrative Still with pain in L yoder, some drainage. No fever. Const alert General Appearance: cooperative Resp normal air movement and clear to auscultation bilaterally Cardio regular rate and regular rhythm GI normal to inspection, nondistended, normoactive bowel sounds Extremity Extremity Narrative: mild edema Skin Skin Narrative: L yoder ulcer, no purulence on exam; reported by nursing when dressing removed. ID ID: Route of nutrition/ use of supplements: [] Nutritional Intake: [] IV Site: [] Mariscal Catheter: [] Assessment & Plan Assessment/Plan (1) Osteomyelitis: PLAN: L yoder MRSA osteo - unable to tolerate bactrim or doxy previously. Hesitate to use linezolid for 6 week course. Discussed options, will do picc and 6 weeks of iv vanc with weekly labs. Return to clinic in 2 weeks. D/w Dr. Schilling.
--- NOTE | 2021-05-03 14:15 | RAD_ITS ---
STUDY: X-RAY - LEFT TIBIA AND FIBULA REASON FOR EXAM: Female, 60 years old. LEG ULCER TECHNIQUE: 2 view(s) of the tibia and fibula were obtained. COMPARISON: 02/27/2021 FINDINGS: Healed fracture deformity of the tibia and fibula are overall stable. Similar bulbous deformity of the tibia. Some well-defined lucency along the anterior inferior margin of the deformity is stable. No periosteal reaction. No acute fracture. Diffuse osteopenia. The soft tissue structures are unremarkable. RAD/Tibia & Fibula 2 Views IMPRESSION: Stable appearance of tibia/fibula with chronic suggesting sequela of previous fracture although chronic osteomyelitis is also possible, with potential sinus tract. Electronically Signed: Josue De Luna MD ([place]) at 15:20 EDT , Service support ,
[2021-05-03 14:27] LABS: Erythrocyte Sedimentation Rate 4 mm/hr (0-30)
[2021-05-03 14:29] LABS: Absolute Lymphocyte Count 1.72 X10^3/uL (0.83-4.51); Absolute Neutrophil Count 3.8 X10^3/uL (2.0-7.7); Basophil# 0.02 X10^3/uL; Basophil% 0.3 % (0-1); Eosinophil# 0.05 X10^3/uL; Eosinophils% 0.8 % (0-5); Hematocrit 38.4 % (37-47); Hemoglobin 12.5 g/dL (12.0-15.0); Lymphocyte # 1.72 X10^3/ul (0.83-4.51); Lymphocyte % 28.1 % (19-41); Mean Corp Hgb Conc 32.6 g/dL (32-36); Mean Corpuscular Hgb 29.8 pg (27.0-32.0); Mean Corpuscular Volume 91.4 fL (81-99); Mean Platelet Vol. 10.2 fl (6.2-12.0); Monocyte# 0.51 X10^3/uL; Monocyte% 8.3 % (0-10); NRBC Flagged by Analyzer 0 % (0-5); Neutrophil % 62.2 % (47-70); Platelet Count 217 K/mm3 (150-450); RBC Distribution Width CV 13.1 % (11.6-14.6); RBC Distribution Width SD 43.4 fl (35.1-43.9); White Blood Count 6.1 K/mm3 (4.4-11.0)
--- NOTE | 2021-05-03 14:39 | RAD_ITS ---
STUDY: X-RAY - LUMBAR SPINE REASON FOR EXAM: Female, 60 years old. BACK PAIN, LEG PAIN TECHNIQUE: 2 view(s) of the lumbar spine were obtained. COMPARISON: None FINDINGS: There is straightening of the normal lumbar lordosis. There is no substantial scoliosis. There is a normal alignment of the vertebrae. Mild anterior spondylosis at L3, L4 and L5. Facet arthropathy L4-L5 and L5-S1 with disc space narrowing at L3-L4, L4-L5 and L5-S1. There is no demonstrated fracture. Surgical clips overlie the abdomen. RAD/Lumbar Spine 2 or 3 Views IMPRESSION: 1. Degenerative disc disease and facet arthropathy in the lower lumbar levels. Electronically Signed: Josue De Luna MD ([place]) at 8:29 EDT , Service support ,
[2021-05-03 14:56] LABS: AST(SGOT) 20 U/L (15-37); Alanine Aminotransfer ALT/SGPT 27 U/L (13-56); Albumin, Serum 3.7 g/dL (3.2-5.0); Alkaline Phosphatase 123 U/L (45-117); Anion Gap 5 (5-15); BUN 11 mg/dL (7-18); BUN/Creat Ratio 19.4 RATIO (10-20); Calcium,Total 8.7 mg/dL (8.5-10.1); Chloride 109 mmol/L (98-107); Creatinine, Serum 0.57 mg/dL (0.55-1.02); EST Glomerular Filtration Rate 115 mL/min (>60); Est Glom Filt Rate - Afr Amer 139 mL/min (>60); Globulin 3.8 g/dL (2.2-4.2); Glucose 123 mg/dL (74-106); Potassium 3.4 mmol/L (3.5-5.1); Protein, Total 7.5 g/dL (6.4-8.2); Sodium Level 141 mmol/L (136-145)
== END 2021-05-08 23:59 ==
LOC: WC 14:00
PROVIDERS: Referring Provider Podiatrist; Visit Provider Podiatrist
DX: T14.8XXD Other injury of unspecified body region, subsequent encounter (principal); M86.662 Other chronic osteomyelitis, left tibia and fibula; L97.922 Non-pressure chronic ulcer of unspecified part of left lower leg with fat layer exposed; I87.2 Venous insufficiency (chronic) (peripheral); Z86.14 Personal history of Methicillin resistant Staphylococcus aureus infection
CPT/HCPCS: 11042; 36415; 72100; 73590; 80053; 85025; 85652; 86140; 87070; 87075; 87077; 87186; 87205; 87640

== ENCOUNTER → 2021-05-08 09:37 | Outpatient (CLI) | payer MEDICAID, SELFPAY ==
[2021-05-08 09:50] VITALS: BP 115/72; PULSE 83; RESP 16; TEMP 36.6; O2SAT 100; BMI 19.8
--- NOTE | 2021-05-08 11:07 | NURSING ---
4Fr, !8g SL PICC placed in Left basilic vein without difficulty. PICC placed using sterile technique. 1 % Lidocaine used for local anesthesia. Pt tolerated well. No s&S complications.
[2021-05-08 11:12] VITALS: BP 124/61; PULSE 72; RESP 16; TEMP 36.1; O2SAT 100; BMI 19.8
[2021-05-08] MEDS: 0.9% NaCl PICC Flush IV ×2 (11:18→12:51)
[2021-05-08] MEDS: 0.9% NaCl IVPB Med Flush (250 mL) 15 ML IV (11:18)
[2021-05-08 12:51] VITALS: BP 116/96; PULSE 83; RESP 16; TEMP 36
== END | disposition home or self-care (01) ==
LOC: RAD 09:37 → MEDOUTP 11:04
PROVIDERS: Referring Provider Internal Medicine Infectious Disease; Visit Provider Internal Medicine Infectious Disease
DX: M86.9 Osteomyelitis, unspecified (principal); A49.02 Methicillin resistant Staphylococcus aureus infection, unspecified site
CPT/HCPCS: 96365; J7050; A4216

== ENCOUNTER 2021-05-29 13:30 | Outpatient (RCR) | payer MEDICAID, SELFPAY ==
[2021-03-14 14:10] VITALS: BMI 20.5
--- NOTE | 2021-04-12 15:43 | HP.PTEVAL_ITS ---
Patient's Visit Information ANGELA JERONIMO is a 60 year old F referred to Physical Therapy by Dr. Molly Vidales MD with a diagnosis of back pain. Date of Evaluation: 04/06/21 Physical Therapist: Andrey Reed DPT - Visit Plan Frequency: 2x /Week Duration: 4 Weeks Plan: DLS, core strength in neutral spine to start, postural stabilization. - Subjective Pt. is here today for her initial evaluation of back pain. Pt. reports having back pain for a few years. pt. reports no mech of injury. PMH: B RTC surgery, L distal LE wound (still going to wound center), RA??. Pt. denies N/T in either LE. Pt. has some pain in BLEs, but unsure if that is from her back. Increased pain: seated, lifting, bending fwrd. Decreased: pain medications, ibuprophen (but unable to take). Pt. reports no chiro use. No N/T in either LE. Pt. reports not being able to get injections secondary to insurance approval. She reports no MRI at this point in time. She is sleeping well without issues. She reports not being overall active, but does try to go to the grocery/drug store frequently. No changes in B/B. Pt. is hopeful to reduce symptoms in order to get back to all recreational activities without limitations. - Pain Lumbar spine Pain Intensity (Out of 10): 0 Pain Intensity Range: 2, 8 - Objective POSTURE: Pt. has slight flexed posture. Pt has normal pelvic positioning. PALPATION: pt. has increased pain at L4-S1 and B SI joints. Pt. has no pain at lateral hip or gluteal pain. NEURO: Pt. reports normal sensation in BLEs. Pt. has 2+ B achillies and patellar DTR. Pt. is able to rise on heels and toes without issues. ROM: Lumbar spine: flexion min loss increase NW, extension mod loss increase NW, rotation min loss bilat increase NW, SB min loss NE bilat. Pt. has tight HS and tight hip flexors bilaterally. Pt. has normal hip ER/IR iwthout increase in symptoms. Normal hip flexion, tight hip extension bilat. MMT: Pt. has 4/5 strength throughout; pt. has poor core strength as well. GAIT: pt. walks with general flexed posture. She has increased lateral hip sway. Pt. has decreased step length bilat. She reports increased pain with progressive walking. - Special Tests L/S Slump test left side: Negative L/S Slump test right side: Negative L/S Left Straight Leg Raise: Negative L/S Right Straight Leg Raise: Negative Lumbar Standing: Flexion - Mechanical Response: No effect Lumbar Standing: Flexion - Symptoms During Testing: No effect Lumbar Standing: Flexion - Symptoms After Testing: No effect Lumbar Standing: Extension - Symptoms During Testing: Increases Lumbar Standing: Extension - Symptoms After Testing: Worse Lumbar Standing: Right Side Glides - Mechanical Response: No effect Lumbar Standing: Right Side [place] - Symptoms During Testing: No effect Lumbar Standing: Right Side [place] - Symptoms After Testing: No effect Lumbar Standing: Left Side [place] - Mechanical Response: No effect Lumbar Standing: Left Side [place] - Symptoms During Testing: No effect Lumbar Standing: Left Side [place] - Symptoms After Testing: No effect Lumbar Lying: Flexion - Mechanical Response: No effect Lumbar Lying: Flexion - Symptoms During Testing: Decreases Lumbar Lying: Flexion - Symptoms After Testing: No better Lumbar Lying: Extension - Mechanical Response: No effect Lumbar Lying: Extension - Symptoms During Testing: Increases Lumbar Lying: Extension - Symptoms After Testing: Worse R Hip Scour: Negative R Hip Quadrant - Intraarticular Pathology: Negative R Hip CARMELA - Intraarticular Pathology: Negative R Hip FADDIR - Labrum: Negative L Hip Scour: Negative L Hip Quadrant - Intraarticular Pathology: Negative L Hip CARMELA - Intraarticular Pathology: Negative L Hip FADDIR - Labrum: Negative - Balance/Special Test Scores Oswestry Low Back Score: 26 - Goals Goal 1:: LTG: Pt. to be I with HEP. Goal Time Frame: 4-6 Weeks Goal 2:: STG: Pt. to be able to walk short distances at least 500' with 0-2/10 LBP. Goal Time Frame: 2-4 Weeks Goal 3:: LTG: Pt. be able to ambulate 1000'+ with 0-2/10 LBP allowing for increased quality of life. Goal Time Frame: 4-6 Weeks Goal 4:: LTG: Pt. to have increased BLE and core strength increased to at least 4+/5 throughout. Goal Time Frame: 4-6 Weeks Goal 5:: LTG: Pt. to have increased lumbar ROM by 25% with 0-2/10 pain throughout. Goal Time Frame: 4-6 Weeks - Rehabilitation Potential Physical Therapy Diagnosis: Pt. has signs and symptoms consistent with low back pain. She did not have signs of sciatica or radicular symptoms today. Pt. has marked weakness in her BLEs and core. I would recommend PT to work on general core stability in neutral spine progressing to functional strengthening. Rehabilitation Potential: Good - Anticipated Interventions Patient/Client Instruction: Educate patient on: Condition, Plan of Care, Risk Factors, Benefits of Fitness Program For the Purpose of:: To foster healthy habits, To improve decision making, To facilitate caregiver knowledge, To improve self management, To prevent re- injury, To improve ability to perform tasks related to life management Therapeutic Exercise to Include: Strength training, Power training, Postural training, Passive ROM, Active ROM, Dynamic Lumbar Stabilization, Nicole Exercises For the Purpose of:: To decrease pain, To decrease swelling/inflammation, To increase ROM, To improve nutrient delivery to tissue, To increase oxygenation perfusion, To improve muscle performance and motor function, To improve ability to perform ADL's Manual Therapy Techniques to Include: Mobilization, Soft tissue mobilization For the Purpose of:: To decrease pain, To decrease swelling/inflammation, To increase ROM, To improve nutrient delivery to tissue, To increase oxygenation perfusion, To improve muscle performance and motor function, To improve ability to perform ADL's, To improve health of tissue, To decrease soft tissue restriction Cryotherapy (ice pack, ice massage): Yes Thermo therapy (hot pack): Yes Ultrasound (thermal/non thermal): Yes For the Purpose of:: To decrease pain, To decrease swelling/inflammation, To increase ROM, To improve nutrient delivery to tissue, To increase oxygenation perfusion, To improve muscle performance and motor function Thank you for the opportunity to evaluate your patient. For Medicare and Medicare HMO plans, please review the plan of care and approve it. It will need to be FAXED BACK to us at [phone] for Medicare purposes. For Medicare only, by signing this I certify the plan of care. Please let me know if there are questions or concerns regarding this plan of care. Physician Si gnature: Date:
--- NOTE | 2021-05-01 14:08 | HP.PTREVAL_ITS ---
Dr. Molly Vidales MD, It has been my pleasure to treat ANGELA JERONIMO over the last 5 visits for back pain. Please see the progress note below for an update on the physical therapy plan of care! Subjective: Pt. reports still having soreness in her back. It think it has to be the rheumatoid arthritis. She reports I am sore when I leave, but it feels like a good. Objective/Function: Pt. continues to reports being able to walk to local drug store without much issue. Pt. reports be limited due to L leg pain. She is to follow up with physician later this week about what to approach her leg wound. ROM: Lumbar spine: flexion nil loss NE, ext mod loss increase NW, SB min loss NE, rotation min loss NE. MMT: BLEs 4/5 throughout without adverse reaction or increase in symptoms. Pt. has poor+ core strength with mild increase in symptoms with stressing TA stability. Pt. is to see her physician about her LE wound. She reports being concerned at she might have to start IV anti-biotics, reports her other option is amputation. Pt. is hopeful to go move forward with antibiotics. She reports overall improvement with core stability exercises. Plan Plan: Cont. to progress neutral spine core stability, progressing to more dynamic stability as tolerated. Balance/Gait/Functional tests - Balance/Special Test Scores Oswestry Low Back Score: 26 Goals Goal 1:: LTG: Pt. to be I with HEP. Goal Time Frame: 4-6 Weeks Goal Progress: Progressing Goal 2:: STG: Pt. to be able to walk short distances at least 500' with 0-2/10 LBP. Goal Time Frame: 2-4 Weeks Goal Progress: Progressing Goal 3:: LTG: Pt. be able to ambulate 1000'+ with 0-2/10 LBP allowing for increased quality of life. Goal Time Frame: 4-6 Weeks Goal Progress: Progressing Goal 4:: LTG: Pt. to have increased BLE and core strength increased to at least 4+/5 throughout. Goal Time Frame: 4-6 Weeks Goal Progress: Progressing Goal 5:: LTG: Pt. to have increased lumbar ROM by 25% with 0-2/10 pain throughout. Goal Time Frame: 4-6 Weeks Goal Progress: Progressing Anticipated Interventions Patient/Client Instruction: Educate patient on: Condition, Plan of Care, Risk Factors, Benefits of Fitness Program For the Purpose of:: To foster healthy habits, To improve decision making, To facilitate caregiver knowledge, To improve self management, To prevent re- injury, To improve ability to perform tasks related to life management Therapeutic Exercise to Include: Strength training, Power training, Postural training, Passive ROM, Active ROM, Dynamic Lumbar Stabilization, Nicole Exerci ses For the Purpose of:: To decrease pain, To decrease swelling/inflammation, To increase ROM, To improve nutrient delivery to tissue, To increase oxygenation perfusion, To improve muscle performance and motor function, To improve ability to perform ADL's Manual Therapy Techniques to Include: Mobilization, Soft tissue mobilization For the Purpose of:: To decrease pain, To decrease swelling/inflammation, To increase ROM, To improve nutrient delivery to tissue, To increase oxygenation perfusion, To improve muscle performance and motor function, To improve ability to perform ADL's, To improve health of tissue, To decrease soft tissue restriction Cryotherapy (ice pack, ice massage): Yes Thermo therapy (hot pack): Yes Ultrasound (thermal/non thermal): Yes For the Purpose of:: To decrease pain, To decrease swelling/inflammation, To increase ROM, To improve nutrient delivery to tissue, To increase oxygenation perfusion, To improve muscle performance and motor function Please do not hesitate to contact me at [phone] by phone or if you have questions or concerns regarding this new plan of care! Sincerely, Andrey Reed DPT
--- NOTE | 2021-05-30 11:35 | HP.PTDCSUM ---
It has been my pleasure to treat ANGELA JERONIMO referred by Dr. Molly Vidales MD, with the diagnosis of back pain for a total of 8 visit(s). Discharge Date: 05/29/21 Please see the following information for a summary of their discharge status. Subjective: Pt. reports overall being about 49% better. She reports mild nagging pain in her back today, but have does with increased pain . Pt. reports no radiating pain in either LE. She is still dealing with her L leg wound. She is going to see vascular doctor about her leg soon. She is still having pain with most activities, but feels a little bit stronger. Lumbar spine Pain Intensity (Out of 10): 1 % Improvement: 30 Objective/Function: Pt. has decent ROM, except into extension. All movements cause increased pain, worst with extension. Pt. denies N/T in either LE. She has been doing well with neutral spine core stability both supine and standing. She is still dealing with her LLE wound and a previous R arm injury. She is currently independent with her HEP. MMT: 4+/5 throughout BLEs, UE 4/5 on the L side 4-/5 R side. Core strength: poor+. GAIT: Pt. is able to ambulate with decent pattern. Stairs: reciprocal pattern with use of BHR. Pt. is having some trouble sleeping, but is improved. She is walking to local drug store ~2 blocks or so. Pt. reports this is better. She did initial improve, but feels like she is starting she is hitting a plateau. She reports overall she pain is not much changed, but is able to do a bit more with similar pain Goal 1:: LTG: Pt. to be I with HEP. Goal Progress: Goal Met Goal 2:: STG: Pt. to be able to walk short distances at least 500' with 0-2/10 LBP. Goal Progress: Goal Met Goal 3:: LTG: Pt. be able to ambulate 1000'+ with 0-2/10 LBP allowing for increased quality of life. Goal Progress: Progressing Goal 4:: LTG: Pt. to have increased BLE and core strength increased to at least 4+/5 throughout. Goal Progress: Progressing Goal 5:: LTG: Pt. to have increased lumbar ROM by 25% with 0-2/10 pain throughout. Goal Progress: Progressing Plan: Pt. to be DC to HEP at this point in time. Discharge Comments: Pt. overall did well with strengthening and stability. She is still having pain with lumbar ROM, most notable with extension. She has improved core stbaility and tolerated with gait. She is still having increased lumbar spine pain with prolonged walking/activities. She reports initial improvement, but is not seeing as much now and desires to return back to physician at this point in time. I instructed her to continue with HEP and follow up physician for course of action. If there are questions or concerns regarding this patient's physical therapy, please feel free to call me at [phone]. Thank you for the referral of this patient. Sincerely, JOHNSON GivensT Balance/Gait/Functional tests - Balance/Special Test Scores Oswestry Low Back Score: 21
== END 2021-05-29 19:00 | disposition home or self-care (01) ==
LOC: PT 13:30
PROVIDERS: Referring Provider Anesthesiology Pain Medicine; Visit Provider Anesthesiology Pain Medicine
DX: M54.9 Dorsalgia, unspecified (principal)
CPT/HCPCS: 97110; 97161; 97164

== ENCOUNTER 2021-05-31 13:39 | Outpatient (RCR) | payer MEDICAID, SELFPAY ==
[2021-05-31 13:56] LABS: Hematocrit 37.9 % (37-47); Hemoglobin 12.6 g/dL (12.0-15.0); Mean Corp Hgb Conc 33.2 g/dL (32-36); Mean Corpuscular Hgb 29.9 pg (27.0-32.0); Mean Platelet Vol. 11.1 fl (6.2-12.0); Platelet Count 225 K/mm3 (150-450); RBC Distribution Width SD 42.6 fl (35.1-43.9); Red Blood Count 4.21 M/mm3 (4.2-5.4)
[2021-05-31 14:22] LABS: Erythrocyte Sedimentation Rate 4 mm/hr (0-30)
[2021-05-31 14:23] LABS: Anion Gap 6 (5-15); BUN 8 mg/dL (7-18); BUN/Creat Ratio 17.3 RATIO (10-20); Calcium,Total 8.7 mg/dL (8.5-10.1); Chloride 106 mmol/L (98-107); Creatinine, Serum 0.46 mg/dL (0.55-1.02); EST Glomerular Filtration Rate 146 mL/min (>60); Est Glom Filt Rate - Afr Amer 177 mL/min (>60); Glucose 116 mg/dL (74-106); Potassium 4.4 mmol/L (3.5-5.1); Sodium Level 140 mmol/L (136-145)
[2021-05-31 14:25] LABS: Vancomycin, Trough Level 10.4 ug/mL (5.0-15.0)
== END 2021-05-31 18:00 | disposition home or self-care (01) ==
LOC: LAB 13:39
PROVIDERS: Referring Provider Internal Medicine Infectious Disease; Visit Provider Internal Medicine Infectious Disease
DX: M86.9 Osteomyelitis, unspecified (principal); B95.62 Methicillin resistant Staphylococcus aureus infection as the cause of diseases classified elsewhere
CPT/HCPCS: 80048; 80202; 85027; 85652

== ENCOUNTER 2021-06-06 11:00 | Outpatient (RCR) | payer MEDICAID, SELFPAY ==
[2021-05-09 00:33] VITALS: BP 141/68; PULSE 87; RESP 16; TEMP 36.1; BMI 20.5
[2021-05-09 10:09] VITALS: BP 130/77; PULSE 90; RESP 18; TEMP 36.1; BMI 20.5
--- NOTE | 2021-05-09 10:44 | PN.PCM_ITS ---
History of Present Illness Date of Service: 05/09/21 Chief Complaint: left leg ulcer History of Wound: This 60-year-old female was seen today for left leg ulcer. She completed care plan with Dr. Holt, for demonstrated prior MRSA growth. She started IV amp and has a PICC placed. She denies fever, chill, nausea, vomiting, diarrhea. She tries to wear compression garment. She relates she does not know if she can quit smoking without being able to take Chantix which she had reaction to previously. She usually takes baths at home and asks how to properly wash her leg. Progress of Wound: stable Objective Data Objective Data Vital Signs: Vital Signs Temp Pulse Resp BP 97 F L 90 18 130/77 H 05/09/21 10:09 05/09/21 10:09 05/09/21 10:09 05/09/21 10:09 Weight: 43.091 kg Body Mass Index (BMI) 20.5 Physical Exam Extremity Extremity Narrative: No calf tenderness Diminished pulses Muscle wasting noted Adjacent skin is atrophic and hairless. Prior skin grafting surgical intervention site noted with cicatrix Now increased ulcer depth noted 1 cm with positive probe to bone. decreased peripheral ulcer inflammation and edema compared to last week Skin Skin Narrative: no purulence, no streaking, no odor. mima ulcer hyperpigmentation and edema continued Neuro Neuro Narrative: lack of normal epicritic sensation via light touch is consistent with neuropathy status Debridement Note Debridement Note Post-Debridement Measurements and Additional Note: Post-Debridement Measurements/Treatment - Nurse 1 - General Ulcer Assessment Start: 05/09/21 10:09 Freq: Status: Active Protocol: ELENA Activity Type Activity Date Activity User E-Sign Co-Sign Detail Recorded Client Recorded Date Recorded By Document 05/09/21 10:09 Desktop 05/09/21 10:11 05/09/21 10:09 - Today's Visit Information Type of service Follow-up Visit (Physician/JUNIOR TECHNICAL WRITER ) Arrival Mode Ambulatory Transfer Assistance None Patient Identification Verified (Name & Yes ) Patient Requires Transmission-Based No Precautions Height and Weight Body Mass Index (BMI) 20.5 BMI Classification Normal Vital Signs Temperature (97.8 F-99.1 F) 97 F L Temperature Source Temporal Pulse Rate (60-100) 90 Pulse Location Monitor Respiratory Rate (12-18) 18 Respiratory rate source Observation Blood Pressure (90/60-120/80) 130/77 H Blood Pressure Mean (mm Hg) 94 Source Monitor Position Semi-Fowlers Blood Pressure Location Left Arm History Since Last Visit- (Skip if this is Patient's initial visit) Have you changed medications since your No last visit? Any new allergies or adverse reactions No Had a fall/change in ADL's that may No increase risk of falls Signs or symptoms of abuse and/or No neglect since last visit Have you been in the hospital since your No last visit? Has dressing in place as prescribed Yes Has compression in place as prescribed Yes Has offloadiing in place as prescribed No Experienced any changes in pain level or No management Left Footwear Regular Shoe Right Footwear Regular Shoe Pain Scale: 0-10 Numeric Is Patient Pain Free? Yes - Nurse 1 - General Ulcer Measurement Start: 05/09/21 10:09 Freq: Status: Active Protocol: Activity Type Activity Date Activity User E-Sign Co-Sign Detail Recorded Client Recorded Date Recorded By Document 05/09/21 10:09 Desktop 05/09/21 10:11 RB 05/09/21 10:09 Wound Center Nurse 1 #1- L MEDIAL LE -Combined with other wound No -Current Size (cm) - Length 0.3 -Current Size (cm) - Width 0.3 -Current Size (cm) - Depth 1 -Total Square Cm 0.09 -Tunneling No -Undermining/Tunneling No -Circular Undermining No -Exudate Amt Medium -Exudate Type Serosanguineous -Wound Margin Distinct, Outline Attached -Granulation Amt Medium (34-66%) -Granulation Quality [place] -Slough/Fibrin Yes -Necrosis Amt Medium (34-66%) -Necrotic Tissue Type Adherent Slough -Structure Exposed N/A -Texture (Mima-wound Skin Appearance) Assessed, Scarring -Moisture (Mima-wound Skin Appearance) Assessed -Color (Mima-wound Skin Appearance) Assessed -Temperature (Imma-wound Skin No Abnormality Appearance) (Pt Warm) -Tenderness on Palpation (Mima-wound No Skin Appearance) -Ulcer Cleansing Wound Cleanser -Foul Odor after Cleansing No -Anesthetic Used 4% Lidocaine Solution Lower Limb Edema Present Yes Left Calf (cm) 31.2 Left Ankle (cm) 19.5 YVETTE - Nurse 2 - General Ulcer CM Notes Start: 05/09/21 10:09 Freq: Status: Active Protocol: Activity Type Activity Date Activity User E-Sign Co-Sign Detail Recorded Client Recorded Date Recorded By Document 05/09/21 10:31 TENZIN [id number] 05/09/21 10:34 TENZIN 05/09/21 10:31 Wound Center Nurse 2 #1- L MEDIAL LE -Time 10:32 -Correct Patient Yes -Correct Side, Site, Position Yes -Correct Procedure Yes -Procedure Performed Yes -Type of Procedure Debridement -Clinical Debridement Subcutaneous -Tissue Removed Subcutaneous -Post Debridement (cm) - Length 0.4 -Post Debridement (cm) - Width 0.3 -Post Debridement (cm) - Depth 1 -Total Square (Post) (cm) 0.12 -Area of Debridement (cm) - Length 0.4 -Area of Debridement (cm) - Width 0.3 -Total Square (Area) (cm) 0.12 -Tunneling No -Undermining/Tunneling No -Circular Undermining No -Wound/Ulcer Outcome Not Healed -Ulcer Cleansing Rinsed/ Irrigated with Saline -Foul Odor after Cleansing No -Bioengineered Tissue No -Bleeding Controlled with Pressure -Offloading No -Treatment Response Procedure Tolerated Well -Debridement - Subq, 1st 20sq cm Yes Pain Scale: 0-10 Numeric Is Patient Pain Free? Yes Wound debrided: left leg Wound Grade/Stage: Type of Debridement: Excisional debridement Anesthesia Used: 4% Lidocaine Solution Depth: in the subcutaneous layer Percentage of wound debrided: 100 Instrument Used: #15 blade Tissue Removed: fibrous, devitalized subcutaneous, biofilm, slough Severity: Fat Layer Exposed Amount of bleeding with debridement: Mild Bleeding Controlled with: Pressure Patient tolerated procedure: Patient tolerated procedure well Assessment/Plan Assessment/Plan (1) Delayed wound healing: CODE(S): T14.8XXD - Other injury of unspecified body region, subsequent encounter (2) Ulcer of left lower extremity with fat layer exposed: CODE(S): L97.922 - Non-pressure chronic ulcer of unspecified part of left lower leg with fat layer exposed (3) Osteomyelitis: CODE(S): M86.9 - Osteomyelitis, unspecified PLAN: I reviewed and discussed her case today. Debridement was performed today as noted in the clinical panel to the ulcer site. The following work up and care recommendations were made: Dressing: To resume sterile gauze packing or dakin use. Wash: Antibacterial soap and water. Avoid soaking. To avoid bathtub bathing where her leg including her wound are submerged. I recommend she uses traditional antibacterial soap and water such as this and washes this with a wet washcloth including the adjacent foot and leg. Tissue growth optimization: If she does have a documented history of osteomyelitis that is chronic she may be a candidate for hyperbaric oxygen therapy. 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 Offload: To avoid direct pressure on the site. Vascular: She has nonpalpable pulses and lack of hair. She also has questionable claudication presentation. I recommend noninvasive vascular studies including MARI, segmental thigh and leg pressure, PVR, and systolic toe pressure. The results were reviewed and she has left biphasic waveforms, left MARI of 1.2, and left toe brachial index is 0.72. The segmental thigh and leg pressures were not obtained. There is not a difference of over 30 mmHg when compared to arm pressures. She is also advised to discontinue all tobacco products to optimize healing and limb salvage opportunities. Due to ongoing lack of healing, a vascular referral was provided today Dr. Rdz to see if additional testing or treatment may improve her chance of healing. Edema: There is mild to moderate edema. To wear Tubigrip for compression management. Compliance was discussed and necessary. I do not see an up-to-date venous Doppler with reflux evaluation exam on file [facility]. Orders placed placed and exam is pending. Infection: She does not have purulent drainage today or erythema, streaking, or odor. To monitor for this. Culture was previously updated for mrsa pcr, aerobic and anearobic. She has a noted h/o MRSA growth. I recommend considering IV antibiotics due to her continued MRSA infections. She is also under the management of infectious disease specialist and continues IV antibiotics and has a PICC line in place. Pain: Controlled Host factors: She has significant delays in healing. We discussed tobacco cessation and how this impairs healing. She has some muscle wasting and delayed healing and nutritional supplementation would also be beneficial. Labs: Updated labs were recently updated including CBC, CMP, ESR, C-reactive protein, and hemoglobin A1c. No leukocytosis was noted. ESR 24. CRP 23.5. No gross abnormalities with CMP. A1c of 5.5%. Imaging: Left leg xrays were recently updated - there is a healed fracture in the mid third of the left tibia but apparently there is periosteal reaction and what appears to be chronic osteomyelitis with possibility of sinus tract. I answered all the patient's questions. To return to the wound healing center in 1 week or call sooner if the patient has any questions or concerns. Discussed with Dr. Holt. Note: [employer] speech recognition hydraulic bull riveter operator software was used to create portions of this document. Sound-alike and misspelled words, as well as other hydraulic bull riveter operator errors may be contained in the documentation.
[2021-05-16 10:21] VITALS: BP 136/68; PULSE 82; RESP 18; TEMP 36.6; BMI 20.5
--- NOTE | 2021-05-16 11:59 | PCM.WC.PN ---
History of Present Illness Date of Service: 05/16/21 Chief Complaint: left leg ulcer History of Wound: This 60-year-old female was seen today for left leg ulcer. She completed care plan with Dr. Holt, for demonstrated prior MRSA growth. She started IV antibiotics 8 days ago, and has a PICC placed. She denies fever, chill, nausea, vomiting, diarrhea. She tries to wear compression garment. She continues to smoke. She denies leg pain, redness, or odor. Progress of Wound: stable Objective Data Objective Data Vital Signs: Vital Signs Temp Pulse Resp BP 98 F 82 18 136/68 H 05/16/21 10:21 05/16/21 10:21 05/16/21 10:21 05/16/21 10:21 Weight: 43.091 kg Body Mass Index (BMI) 20.5 Physical Exam Extremity Extremity Narrative: No calf tenderness Diminished pulses Muscle wasting noted Adjacent skin is atrophic and hairless. Prior skin grafting surgical intervention site noted with cicatrix Unchanged ulcer depth noted 1 cm with positive probe to bone. Mild edema to leg compared to prior visits Increased fibrinous and serosanguineous drainage expressed from 1 o'clock position Skin Skin Narrative: no kevin purulence, no erythema, no streaking, no odor. mima ulcer hyperpigmentation and edema continued. There is no periulcer inflammation Neuro Neuro Narrative: lack of normal epicritic sensation via light touch is consistent with neuropathy status Debridement Note Debridement Note Wound debrided: Left anterior leg Wound Grade/Stage: Type of Debridement: Excisional debridement Anesthesia Used: 4% Lidocaine Solution Depth: in the subcutaneous layer Percentage of wound debrided: 100 Instrument Used: #15 blade and - (1 mm currette) Tissue Removed: fibrous, devitalized subcutaneous, biofilm, slough Severity: Fat Layer Exposed Amount of bleeding with debridement: Mild Bleeding Controlled with: Pressure Patient tolerated procedure: Patient tolerated procedure well Post-Debridement Measurements and Additional Note: Post-Debridement Measurements/Treatment WC - Nurse 1 - General Ulcer Assessment Start: 05/09/21 10:09 Freq: Status: Active Protocol: [email or web address] Activity Type Activity Date Activity User E-Sign Co-Sign Detail Recorded Client Recorded Date Recorded By Document 05/09/21 10:09 RB Desktop 05/09/21 10:11 RB Document 05/16/21 10:21 RB [id number] 05/16/21 10:26 RB 05/09/21 05/16/21 10:09 10:21 - Today's Visit Information Type of service Follow-up Visit Follow-up Visit (Physician/VEGETABLES COOK (Physician/VEGETABLES COOK ) ) Arrival Mode Ambulatory Ambulatory Transfer Assistance None None Patient Identification Verified (Name & Yes Yes ) Patient Requires Transmission-Based No No Precautions Height and Weight Body Mass Index (BMI) 20.5 20.5 BMI Classification Normal Normal Vital Signs Temperature (97.8 F-99.1 F) 97 F L 98 F Temperature Source Temporal Temporal Pulse Rate (60-100) 90 82 Pulse Location Monitor Monitor Respiratory Rate (12-18) 18 18 Respiratory rate source Observation Observation Blood Pressure (90/60-120/80) 130/77 H 136/68 H Blood Pressure Mean (mm Hg) 94 90 Source Monitor Monitor Position Semi-Fowlers Sitting Blood Pressure Location Left Arm Left Arm History Since Last Visit- (Skip if this is Patient's initial visit) Have you changed medications since your No No last visit? Any new allergies or adverse reactions No No Had a fall/change in ADL's that may No No increase risk of falls Signs or symptoms of abuse and/or No No neglect since last visit Have you been in the hospital since your No No last visit? Has dressing in place as prescribed Yes Yes Has compression in place as prescribed Yes No Has offloadiing in place as prescribed No No Experienced any changes in pain level or No No management Left Footwear Regular Shoe Regular Shoe Right Footwear Regular Shoe Regular Shoe Pain Scale: 0-10 Numeric Is Patient Pain Free? Yes Yes - Nurse 1 - General Ulcer Measurement Start: 05/09/21 10:09 Freq: Status: Active Protocol: Activity Type Activity Date Activity User E-Sign Co-Sign Detail Recorded Client Recorded Date Recorded By Document 05/09/21 10:09 Desktop 05/09/21 10:11 RB Document 05/16/21 10:21 RB [id number] 05/16/21 10:26 RB 05/09/21 05/16/21 10:09 10:21 Wound Center Nurse 1 #1- L MEDIAL LE -Combined with other wound No No -Current Size (cm) - Length 0.3 0.3 -Current Size (cm) - Width 0.3 0.3 -Current Size (cm) - Depth 1 1 -Total Square Cm 0.09 0.09 -Tunneling No No -Undermining/Tunneling No No -Circular Undermining No No -Exudate Amt Medium Small -Exudate Type Serosanguineous Purulent -Wound Margin Distinct, Distinct, Outline Outline Attached Attached -Granulation Amt Medium (34-66%) Medium (34-66%) -Granulation Quality [place] -Slough/Fibrin Yes Yes -Necrosis Amt Medium (34-66%) Small (1-33%) -Necrotic Tissue Type Adherent Slough Adherent Slough -Structure Exposed N/A N/A -Texture (Mima-wound Skin Appearance) Assessed, Assessed, Scarring Scarring -Moisture (Mima-wound Skin Appearance) Assessed Assessed -Color (Mima-wound Skin Appearance) Assessed Assessed -Temperature (Mima-wound Skin No Abnormality No Abnormality Appearance) (Pt Warm) (Pt Warm) -Tenderness on Palpation (Mima-wound No No Skin Appearance) -Ulcer Cleansing Wound Cleanser Wound Cleanser -Foul Odor after Cleansing No No -Anesthetic Used 4% Lidocaine 5% Lidocaine Solution Gel Lower Limb Edema Present Yes Left Calf (cm) 31.2 Left Ankle (cm) 19.5 WC - Nurse 2 - General Ulcer CM Notes Start: 05/09/21 10:09 Freq: Status: Active Protocol: Activity Type Activity Date Activity User E-Sign Co-Sign Detail Recorded Client Recorded Date Recorded By Document 05/09/21 10:31 [id number] 05/09/21 10:34 Document 05/16/21 10:51 [id number] 05/16/21 10:55 05/09/21 05/16/21 10:31 10:51 Wound Center Nurse 2 #1- L MEDIAL LE -Time 10:32 10:52 -Correct Patient Yes Yes -Correct Side, Site, Position Yes Yes -Correct Procedure Yes Yes -Procedure Performed Yes Yes -Type of Procedure Debridement Debridement -Clinical Debridement Subcutaneous Subcutaneous -Tissue Removed Subcutaneous Subcutaneous -Post Debridement (cm) - Length 0.4 0.3 -Post Debridement (cm) - Width 0.3 0.3 -Post Debridement (cm) - Depth 1 1 -Total Square (Post) (cm) 0.12 0.09 -Area of Debridement (cm) - Length 0.4 0.3 -Area of Debridement (cm) - Width 0.3 0.3 -Total Square (Area) (cm) 0.12 0.09 -Tunneling No No -Undermining/Tunneling No No -Circular Undermining No No -Wound/Ulcer Outcome Not Healed Not Healed -Ulcer Cleansing Rinsed/ Rinsed/ Irrigated with Irrigated with Saline Saline -Foul Odor after Cleansing No No -Bioengineered Tissue No No -Bleeding Controlled with Pressure Pressure -Offloading No No -Treatment Response Procedure Procedure Tolerated Well Tolerated Well -Debridement - Subq, 1st 20sq cm Yes Yes Pain Scale: 0-10 Numeric Is Patient Pain Free? Yes Yes - Nurse 3 - General Ulcer D/C NN Start: 05/09/21 10:09 Freq: Status: Active Protocol: Activity Type Activity Date Activity User E-Sign Co-Sign Detail Recorded Client Recorded Date Recorded By Document 05/09/21 10:48 [id number] 05/09/21 10:49 Document 05/16/21 11:09 RB [id number] 05/16/21 11:10 05/09/21 05/16/21 10:48 11:09 Wound Care Nurse 3 #1- L MEDIAL LE -Ulcer Cleansing Rinsed/ Rinsed/ Irrigated with Irrigated with Saline Saline -Foul Odor after Cleansing No -Primary Dressing Applied Nugauze, Iodoform -Other Dressing gauze packed into wound bed at noon -Primary Dressing Covered/Secured with Dry Gauze, Dry Gauze,Dry Secured with Gauze & Roll Tape Gauze,Secured with Tape -Nugauze, Iodoform 1/4 1 Left -Tubular Bandage Single Layer -Size of Tubigrip Used Size C -Size C ($) 1 Treatment Response Procedure Tolerated Well Pain Scale: 0-10 Numeric Is Patient Pain Free? Yes Yes - Visit Discharge Discharge Condition Stable Stable Ambulatory Status Ambulatory Ambulatory Transportation Private Auto Private Auto Medication Reconcilliation completed & Yes No provided to patient/care provider Clinical Summary of Care Provided Yes Yes Assessment/Plan Assessment/Plan (1) Delayed wound healing: CODE(S): T14.8XXD - Other injury of unspecified body region, subsequent encounter (2) Ulcer of left lower extremity with fat layer exposed: CODE(S): L97.922 - Non-pressure chronic ulcer of unspecified part of left lower leg with fat layer exposed (3) Osteomyelitis: CODE(S): M86.9 - Osteomyelitis, unspecified PLAN: I reviewed and discussed her case today. Debridement was performed today as noted in the clinical panel to the ulcer site. The following work up and care recommendations were made: Dressing: To resume sterile gauze packing or dakin use taking care to pack this into the 1 o'clock position. Wash: Antibacterial soap and water. Avoid soaking. To avoid bathtub bathing where her leg including her wound are submerged. I recommend she uses traditional antibacterial soap and water such as this and washes this with a wet washcloth including the adjacent foot and leg. Tissue growth optimization: If she does have a documented history of osteomyelitis that is chronic she may be a candidate for hyperbaric oxygen therapy. 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 Offload: To avoid direct pressure on the site. Vascular: She has nonpalpable pulses and lack of hair. She also has questionable claudication presentation. I recommend noninvasive vascular studies including MARI, segmental thigh and leg pressure, PVR, and systolic toe pressure. The results were reviewed and she has left biphasic waveforms, left MARI of 1.2, and left toe brachial index is 0.72. The segmental thigh and leg pressures were not obtained. There is not a difference of over 30 mmHg when compared to arm pressures. She is also advised to discontinue all tobacco products to optimize healing and limb salvage opportunities. Due to ongoing lack of healing, a vascular referral was provided today Dr. Rdz to see if additional testing or treatment may improve her chance of healing. She relates she forgot to call again and was urged to maintain compliance with this. Edema: There is mild to moderate edema. To wear Tubigrip for compression management. Compliance was discussed and necessary. I do not see an up-to-date venous Doppler with reflux evaluation exam on file [facility]. Orders placed placed and exam is pending. Infection: She does not have kevin purulent drainage today or erythema, streaking, or odor. To monitor for this. Culture was previously updated for mrsa pcr, aerobic and anearobic. She has a noted h/o MRSA growth. I recommend considering IV antibiotics due to her continued MRSA infections. She is also under the management of infectious disease specialist and continues IV antibiotics and has a PICC line in place. She is currently on a 6-week course of linezolid. Pain: Controlled Host factors: She has significant delays in healing. We discussed tobacco cessation and how this impairs healing. She has some muscle wasting and delayed healing and nutritional supplementation would also be beneficial. Labs: Updated labs were recently updated including CBC, CMP, ESR, C-reactive protein, and hemoglobin A1c. No leukocytosis was noted. ESR 24. CRP 23.5. No gross abnormalities with CMP. A1c of 5.5%. Imaging: Left leg xrays were recently updated - there is a healed fracture in the mid third of the left tibia but apparently there is periosteal reaction and what appears to be chronic osteomyelitis with possibility of sinus tract. I answered all the patient's questions. To return to the wound healing center in 1 week or call sooner if the patient has any questions or concerns. The medical decision making level is limited based on data including the review of prior external notes, review of a prior test, or ordering a test. The medical decision making level is low. There is noted low risk of morbidity after considering this treatment plan and diagnostic data. Note: [employer] speech recognition equal employment opportunity officer software was used to create portions of this document. Sound-alike and misspelled words, as well as other equal employment opportunity officer errors may be contained in the documentation.
[2021-05-23 08:07] VITALS: BP 132/84; PULSE 86; RESP 16; TEMP 36.3; BMI 20.5
--- NOTE | 2021-05-23 08:54 | PCM.WC.PN ---
History of Present Illness Date of Service: 05/23/21 Chief Complaint: left leg ulcer History of Wound: This 60-year-old female was seen today for left leg ulcer. She recently started IV antibiotics. She denies fever, chill, nausea, vomiting, diarrhea. She tries to wear compression garment. She continues to smoke. She denies leg pain, redness, or odor. She has a new opening and noticed that this morning when she was cleaning her leg prior to coming to her appointment. She denies trauma or recent increase in swelling. Progress of Wound: worse - new wound noted Objective Data Objective Data Vital Signs: Vital Signs Temp Pulse Resp BP 97.3 F L 86 16 132/84 H 05/23/21 08:07 05/23/21 08:07 05/23/21 08:07 05/23/21 08:07 Oxygen Delivery Method Room Air Weight: 43.091 kg Body Mass Index (BMI) 20.5 Physical Exam Extremity Extremity Narrative: No calf tenderness Diminished pulses Muscle wasting noted Adjacent skin is atrophic and hairless. Prior skin grafting surgical intervention site noted with cicatrix Decreased leg edema. Reduced ulcer depth New skin discontinuity proximal to the initial site with notable depth Skin Skin Narrative: no kevin purulence, no erythema, no streaking, no odor. mima ulcer hyperpigmentation and edema continued. There is no periulcer inflammation Neuro Neuro Narrative: lack of normal epicritic sensation via light touch is consistent with neuropathy status Debridement Note Debridement Note Wound debrided: Left leg x2 Wound Grade/Stage: Type of Debridement: Excisional debridement Anesthesia Used: 4% Lidocaine Solution Depth: in the subcutaneous layer Percentage of wound debrided: 100 Instrument Used: #15 blade Tissue Removed: fibrous, devitalized subcutaneous, biofilm, slough Severity: Fat Layer Exposed Amount of bleeding with debridement: Mild Bleeding Controlled with: Pressure Patient tolerated procedure: Patient tolerated procedure well Post-Debridement Measurements and Additional Note: Post-Debridement Measurements/Treatment [id number] - Nurse 1 - General Ulcer Assessment Start: 05/09/21 10:09 Freq: Status: Active Protocol: ELENA Activity Type Activity Date Activity User E-Sign Co-Sign Detail Recorded Client Recorded Date Recorded By Document 05/09/21 10:09 RB Desktop 05/09/21 10:11 RB Document 05/16/21 10:21 RB [id number] 05/16/21 10:26 RB Document 05/23/21 08:07 [facility] [id number] 05/23/21 08:17 BM 05/09/21 05/16/21 05/23/21 10:09 10:21 08:07 - Today's Visit Information Type of service Follow-up Visit Follow-up Visit Follow-up Visit (Physician/FAMILY LIFE EDUCATOR (Physician/FAMILY LIFE EDUCATOR (Physician/FAMILY LIFE EDUCATOR ) ) ) Arrival Mode Ambulatory Ambulatory Ambulatory Transfer Assistance None None None Patient Identification Verified (Name & Yes Yes Yes ) Patient Requires Transmission-Based No No No Precautions Height and Weight Body Mass Index (BMI) 20.5 20.5 20.5 BMI Classification Normal Normal Normal Vital Signs Temperature (97.8 F-99.1 F) 97 F L 98 F 97.3 F L Temperature Source Temporal Temporal Temporal Pulse Rate (60-100) 90 82 86 Pulse Location Monitor Monitor Monitor Respiratory Rate (12-18) 18 18 16 Respiratory rate source Observation Observation Observation Oxygen Delivery Method Room Air Blood Pressure (90/60-120/80) 130/77 H 136/68 H 132/84 H Blood Pressure Mean (mm Hg) 94 90 100 Source Monitor Monitor Monitor Position Semi-Fowlers Sitting Sitting Blood Pressure Location Left Arm Left Arm Right Arm History Since Last Visit- (Skip if this is Patient's initial visit) Have you changed medications since your No No No last visit? Any new allergies or adverse reactions No No No Had a fall/change in ADL's that may No No No increase risk of falls Signs or symptoms of abuse and/or No No No neglect since last visit Have you been in the hospital since your No No No last visit? Has dressing in place as prescribed Yes Yes Yes Has compression in place as prescribed Yes No Yes Has offloadiing in place as prescribed No No N/A Experienced any changes in pain level or No No No management Left Footwear Regular Shoe Regular Shoe Regular Shoe Right Footwear Regular Shoe Regular Shoe Regular Shoe Pain Scale: 0-10 Numeric Is Patient Pain Free? Yes Yes Yes - Nurse 1 - General Ulcer Measurement Start: 05/09/21 10:09 Freq: Status: Active Protocol: Activity Type Activity Date Activity User E-Sign Co-Sign Detail Recorded Client Recorded Date Recorded By Document 05/09/21 10:09 RB Desktop 05/09/21 10:11 RB Document 05/16/21 10:21 RB [id number] 05/16/21 10:26 RB Document 05/23/21 08:07 [facility] [id number] 05/23/21 08:17 [facility] 05/09/21 05/16/21 05/23/21 10:09 10:21 08:07 Wound Center Nurse 1 #2- L MED LE SUPERIOR -Combined with other wound No -Current Size (cm) - Length 0.3 -Current Size (cm) - Width 0.1 -Current Size (cm) - Depth 0.3 -Total Square Cm 0.03 -Date of Last Picture (Recall this 05/23/21 field) -Photo Taken Yes -Epithelialization None Present -Tunneling No -Undermining/Tunneling No -Circular Undermining No -Exudate Amt Small -Exudate Type Serosanguineous -Wound Margin Distinct, Outline Attached -Granulation Amt Small (1-33%) -Granulation Quality Red -Slough/Fibrin Yes -Necrosis Amt Large (67-100%) -Necrotic Tissue Type Adherent Slough -Texture (Mima-wound Skin Appearance) Assessed, Scarring -Moisture (Mima-wound Skin Appearance) Assessed -Color (Mima-wound Skin Appearance) Assessed, Erythema -Temperature (Mima-wound Skin No Abnormality Appearance) (Pt Warm) -Ulcer Cleansing SOAPY WATER -Foul Odor after Cleansing No -Anesthetic Used 5% Lidocaine Gel #1- L [facility] LE -Combined with other wound No No No -Current Size (cm) - Length 0.3 0.3 0.5 -Current Size (cm) - Width 0.3 0.3 0.4 -Current Size (cm) - Depth 1 1 0.5 -Total Square Cm 0.09 0.09 0.20 -Date of Last Picture (Recall this 05/23/21 field) -Photo Taken Yes -Epithelialization None Present -Tunneling No No No -Undermining/Tunneling No No No -Circular Undermining No No No -Exudate Amt Medium Small Medium -Exudate Type Serosanguineous Purulent Serosanguineous -Wound Margin Distinct, Distinct, Distinct, Outline Outline Outline Attached Attached Attached -Granulation Amt Medium (34-66%) Medium (34-66%) Large (67-100%) -Granulation Quality [place] Red -Slough/Fibrin Yes Yes Yes -Necrosis Amt Medium (34-66%) Small (1-33%) Small (1-33%) -Necrotic Tissue Type Adherent Slough Adherent Slough Adherent Slough -Structure Exposed N/A N/A -Texture (Mima-wound Skin Appearance) Assessed, Assessed, Assessed, Scarring Scarring Scarring -Moisture (Mima-wound Skin Appearance) Assessed Assessed Assessed,Dry/ Scaly -Color (Mima-wound Skin Appearance) Assessed Assessed Assessed -Temperature (Mima-wound Skin No Abnormality No Abnormality No Abnormality Appearance) (Pt Warm) (Pt Warm) (Pt Warm) -Tenderness on Palpation (Mima-wound No No No Skin Appearance) -Ulcer Cleansing Wound Cleanser Wound Cleanser SOAPY WATER -Foul Odor after Cleansing No No No -Anesthetic Used 4% Lidocaine 5% Lidocaine Solution Gel Lower Limb Edema Present Yes Left Calf (cm) 31.2 31.3 Left Ankle (cm) 19.5 19.4 WC - Nurse 2 - General Ulcer CM Notes Start: 05/09/21 10:09 Freq: Status: Active Protocol: Activity Type Activity Date Activity User E-Sign Co-Sign Detail Recorded Client Recorded Date Recorded By Document 05/09/21 10:31 [id number] 05/09/21 10:34 Document 05/16/21 10:51 [id number] 05/16/21 10:55 Document 05/23/21 08:39 [id number] 05/23/21 08:43 05/09/21 05/16/21 05/23/21 10:31 10:51 08:39 Wound Center Nurse 2 #2- L [facility] SUPERIOR -Time 08:40 -Correct Patient Yes -Correct Side, Site, Position Yes -Correct Procedure Yes -Procedure Performed Yes -Type of Procedure Debridement -Clinical Debridement Subcutaneous -Tissue Removed Subcutaneous -Post Debridement (cm) - Length 0.3 -Post Debridement (cm) - Width 0.2 -Post Debridement (cm) - Depth 1.1 -Total Square (Post) (cm) 0.06 -Area of Debridement (cm) - Length 0.3 -Area of Debridement (cm) - Width 0.2 -Total Square (Area) (cm) 0.06 -Tunneling No -Undermining/Tunneling No -Circular Undermining No -Wound/Ulcer Outcome Not Healed -Ulcer Cleansing Wound Cleanser -Foul Odor after Cleansing No -Bioengineered Tissue No -Bleeding Controlled with Pressure -Offloading No -Treatment Response Procedure Tolerated Well -Debridement - Subq, 1st 20sq cm No #1- L MEDIAL LE -Time 10:32 10:52 08:40 -Correct Patient Yes Yes Yes -Correct Side, Site, Position Yes Yes Yes -Correct Procedure Yes Yes Yes -Procedure Performed Yes Yes Yes -Type of Procedure Debridement Debridement Debridement -Clinical Debridement Subcutaneous Subcutaneous Subcutaneous -Tissue Removed Subcutaneous Subcutaneous Dermis -Post Debridement (cm) - Length 0.4 0.3 0.5 -Post Debridement (cm) - Width 0.3 0.3 0.5 -Post Debridement (cm) - Depth 1 1 0.7 -Total Square (Post) (cm) 0.12 0.09 0.25 -Area of Debridement (cm) - Length 0.4 0.3 0.5 -Area of Debridement (cm) - Width 0.3 0.3 0.5 -Total Square (Area) (cm) 0.12 0.09 0.25 -Tunneling No No No -Undermining/Tunneling No No No -Circular Undermining No No No -Wound/Ulcer Outcome Not Healed Not Healed Not Healed -Ulcer Cleansing Rinsed/ Rinsed/ Irrigated with Irrigated with Saline Saline -Foul Odor after Cleansing No No No -Bioengineered Tissue No No No -Bleeding Controlled with Pressure Pressure Pressure -Offloading No No No -Treatment Response Procedure Procedure Procedure Tolerated Well Tolerated Well Tolerated Well -Debridement - Subq, 1st 20sq cm Yes Yes Yes Pain Scale: 0-10 Numeric Is Patient Pain Free? Yes Yes Yes WC - Nurse 3 - General Ulcer D/C NN Start: 05/09/21 10:09 Freq: Status: Active Protocol: Activity Type Activity Date Activity User E-Sign Co-Sign Detail Recorded Client Recorded Date Recorded By Document 05/09/21 10:48 [id number] 05/09/21 10:49 JF Document 05/16/21 11:09 RB [id number] 05/16/21 11:10 RB Document 05/23/21 08:49 RB Desktop 05/23/21 08:50 RB 05/09/21 05/16/21 05/23/21 10:48 11:09 08:49 Wound Care Nurse 3 #2- L MED LE SUPERIOR -Ulcer Cleansing Rinsed/ Irrigated with Saline -Primary Dressing Applied Nugauze, Iodoform -Primary Dressing Covered/Secured with Dry Gauze,Dry Gauze & Roll Gauze,Secured with Tape -Nugauze, Iodoform 09/11 1 #1- L MEDIAL LE -Ulcer Cleansing Rinsed/ Rinsed/ Irrigated with Irrigated with Saline Saline -Foul Odor after Cleansing No -Primary Dressing Applied Nugauze, Iodoform -Other Dressing gauze packed NUGAUZE into wound bed at noon -Primary Dressing Covered/Secured with Dry Gauze, Dry Gauze,Dry Dry Gauze,Dry Secured with Gauze & Roll Gauze & Roll Tape Gauze,Secured Gauze,Secured with Tape with Tape -Nugauze, Iodoform 09/11 1 Left -Tubular Bandage Single Layer Single Layer -Size of Tubigrip Used Size C Size C -Size C ($) 1 1 -Other ARCHANA Treatment Response Procedure Procedure Tolerated Well Tolerated Well Pain Scale: 0-10 Numeric Is Patient Pain Free? Yes Yes Yes WC - Visit Discharge Discharge Condition Stable Stable Stable Ambulatory Status Ambulatory Ambulatory Ambulatory Transportation Private Auto Private Auto Private Auto Medication Reconcilliation completed & Yes No No provided to patient/care provider Clinical Summary of Care Provided Yes Yes Yes Assessment/Plan Assessment/Plan (1) Delayed wound healing: CODE(S): T14.8XXD - Other injury of unspecified body region, subsequent encounter (2) Ulcer of left lower extremity with fat layer exposed: CODE(S): L97.922 - Non-pressure chronic ulcer of unspecified part of left lower leg with fat layer exposed (3) Osteomyelitis: CODE(S): M86.9 - Osteomyelitis, unspecified PLAN: I reviewed and discussed her case today. Debridement was performed today as noted in the clinical panel to the ulcer site. Her new ulcer site is noted. The following work up and care recommendations were made: Dressing: To resume sterile gauze packing or dakin use taking care to pack this into both positions. Wash: Antibacterial soap and water. Avoid soaking. To avoid bathtub bathing where her leg including her wound are submerged. I recommend she uses traditional antibacterial soap and water such as this and washes this with a wet washcloth including the adjacent foot and leg. Tissue growth optimization: If she does have a documented history of osteomyelitis that is chronic she may be a candidate for hyperbaric oxygen therapy. 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 Offload: To avoid direct pressure on the site. Vascular: She has nonpalpable pulses and lack of hair. She also has questionable claudication presentation. I recommend noninvasive vascular studies including MARI, segmental thigh and leg pressure, PVR, and systolic toe pressure. The results were reviewed and she has left biphasic waveforms, left MARI of 1.2, and left toe brachial index is 0.72. The segmental thigh and leg pressures were not obtained. There is not a difference of over 30 mmHg when compared to arm pressures. She is also advised to discontinue all tobacco products to optimize healing and limb salvage opportunities. Due to ongoing lack of healing, a vascular referral was provided for Dr. Rdz. She relates she is scheduled for June 06. Edema: There is mild to moderate edema. To wear Tubigrip for compression management. Compliance was discussed and necessary. I do not see an up-to-date venous Doppler with reflux evaluation exam on file [facility]. Orders placed placed and exam is pending. Infection: She does not have kevin purulent drainage today or erythema, streaking, or odor. To monitor for this. Culture was previously updated for mrsa pcr, aerobic and anearobic. She has a noted h/o MRSA growth. I recommend considering IV antibiotics due to her continued MRSA infections. She is also under the management of infectious disease specialist and continues IV antibiotics and has a PICC line in place. She is currently on a 6-week course of linezolid. Pain: Controlled Host factors: She has significant delays in healing. We discussed tobacco cessation and how this impairs healing. She has some muscle wasting and delayed healing and nutritional supplementation would also be beneficial. Labs: Updated labs were recently updated including CBC, CMP, ESR, C-reactive protein, and hemoglobin A1c. No leukocytosis was noted. ESR 24. CRP 23.5. No gross abnormalities with CMP. A1c of 5.5%. Imaging: Left leg xrays were recently updated - there is a healed fracture in the mid third of the left tibia but apparently there is periosteal reaction and what appears to be chronic osteomyelitis with possibility of sinus tract. I answered all the patient's questions. To return to the wound healing center in 1 week or call sooner if the patient has any questions or concerns. 20 minutes was spent on this encounter. This included face to face and non face to face care including preparing for the visit, reviewing the history, performing the exam, counseling and providing education to the patient, family, or caregiver, ordering medications/test/ procedures if indicated as documented, communicating with other healthcare providers, documenting information in the medical record, interpreting / sharing this information when indicated as documented, and care coordination. Note: [employer] speech recognition departmental shipping clerk software was used to create portions of this document. Sound-alike and misspelled words, as well as other departmental shipping clerk errors may be contained in the documentation.
[2021-05-30 14:37] VITALS: BP 152/83; PULSE 84; RESP 20; TEMP 36.4; BMI 20.5
--- NOTE | 2021-05-30 18:29 | PCM.WC.PN ---
History of Present Illness Date of Service: 05/30/21 Chief Complaint: left leg ulcer History of Wound: This 60-year-old female was seen today for left leg ulcer. She recently started IV antibiotics. She denies fever, chill, nausea, vomiting, diarrhea. She tries to wear compression garment. She continues to smoke. She denies leg pain, redness, or odor. She denies trauma or recent increase in swelling. Progress of Wound: worse - new wound noted Objective Data Objective Data Vital Signs: Vital Signs Temp Pulse Resp BP 97.5 F L 84 20 H 152/83 H 05/30/21 14:37 05/30/21 14:37 05/30/21 14:37 05/30/21 14:37 Oxygen Delivery Method Room Air Weight: 43.091 kg Body Mass Index (BMI) 20.5 Physical Exam Extremity Extremity Narrative: No calf tenderness Diminished pulses Muscle wasting noted Adjacent skin is atrophic and hairless. Prior skin grafting surgical intervention site noted with cicatrix Decreased leg edema. Reduced ulcer depth Recent skin discontinuity proximal to the initial site pinpoint size today without probable depth Skin Skin Narrative: no kevin purulence, no erythema, no streaking, no odor. mima ulcer hyperpigmentation and edema continued. There is no periulcer inflammation Neuro Neuro Narrative: lack of normal epicritic sensation via light touch is consistent with neuropathy status Debridement Note Debridement Note Wound debrided: left leg ulcer Wound Grade/Stage: Type of Debridement: Excisional debridement Anesthesia Used: 4% Lidocaine Solution Depth: in the subcutaneous layer Percentage of wound debrided: 100 Instrument Used: - (misonix ultrasound debrider on setting 7) Tissue Removed: fibrous, devitalized subcutaneous, biofilm, slough Severity: Fat Layer Exposed Amount of bleeding with debridement: Mild Bleeding Controlled with: Pressure Patient tolerated procedure: Patient tolerated procedure well Post-Debridement Measurements and Additional Note: Post-Debridement Measurements/Treatment WC - Nurse 1 - General Ulcer Assessment Start: 05/09/21 10:09 Freq: Status: Active Protocol: ELENA Activity Type Activity Date Activity User E-Sign Co-Sign Detail Recorded Client Recorded Date Recorded By Document 05/09/21 10:09 RB Desktop 05/09/21 10:11 RB Document 05/16/21 10:21 RB [id number] 05/16/21 10:26 RB Document 05/23/21 08:07 [facility] [id number] 05/23/21 08:17 [facility] Document 05/30/21 14:37 DL Desktop 05/30/21 14:43 DL 05/09/21 05/16/21 05/23/21 10:09 10:21 08:07 WC - Today's Visit Information Type of service Follow-up Visit Follow-up Visit Follow-up Visit (Physician/BUSINESS EXECUTIVE (Physician/BUSINESS EXECUTIVE (Physician/BUSINESS EXECUTIVE ) ) ) Arrival Mode Ambulatory Ambulatory Ambulatory Transfer Assistance None None None Patient Identification Verified (Name & Yes Yes Yes ) Patient Requires Transmission-Based No No No Precautions Height and Weight Body Mass Index (BMI) 20.5 20.5 20.5 BMI Classification Normal Normal Normal Vital Signs Temperature (97.8 F-99.1 F) 97 F L 98 F 97.3 F L Temperature Source Temporal Temporal Temporal Pulse Rate (60-100) 90 82 86 Pulse Location Monitor Monitor Monitor Respiratory Rate (12-18) 18 18 16 Respiratory rate source Observation Observation Observation Oxygen Delivery Method Room Air Blood Pressure (90/60-120/80) 130/77 H 136/68 H 132/84 H Blood Pressure Mean (mm Hg) 94 90 100 Source Monitor Monitor Monitor Position Semi-Fowlers Sitting Sitting Blood Pressure Location Left Arm Left Arm Right Arm History Since Last Visit- (Skip if this is Patient's initial visit) Have you changed medications since your No No No last visit? Any new allergies or adverse reactions No No No Had a fall/change in ADL's that may No No No increase risk of falls Signs or symptoms of abuse and/or No No No neglect since last visit Have you been in the hospital since your No No No last visit? Has dressing in place as prescribed Yes Yes Yes Has compression in place as prescribed Yes No Yes Has offloadiing in place as prescribed No No N/A Experienced any changes in pain level or No No No management Left Footwear Regular Shoe Regular Shoe Regular Shoe Right Footwear Regular Shoe Regular Shoe Regular Shoe Pain Scale: 0-10 Numeric Is Patient Pain Free? Yes Yes Yes 05/30/21 14:37 WC - Today's Visit Information Type of service Follow-up Visit (Physician/BUSINESS EXECUTIVE ) Arrival Mode Ambulatory Transfer Assistance None Patient Identification Verified (Name & Yes ) Patient Requires Transmission-Based No Precautions Height and Weight Body Mass Index (BMI) 20.5 BMI Classification Normal Vital Signs Temperature (97.8 F-99.1 F) 97.5 F L Temperature Source Temporal Pulse Rate (60-100) 84 Pulse Location Monitor Respiratory Rate (12-18) 20 H Respiratory rate source Observation Oxygen Delivery Method Blood Pressure (90/60-120/80) 152/83 H Blood Pressure Mean (mm Hg) 106 Source Monitor Position Blood Pressure Location History Since Last Visit- (Skip if this is Patient's initial visit) Have you changed medications since your No last visit? Any new allergies or adverse reactions No Had a fall/change in ADL's that may No increase risk of falls Signs or symptoms of abuse and/or No neglect since last visit Have you been in the hospital since your No last visit? Has dressing in place as prescribed Yes Has compression in place as prescribed Yes Has offloadiing in place as prescribed N/A Experienced any changes in pain level or No management Left Footwear Right Footwear Pain Scale: 0-10 Numeric Is Patient Pain Free? Yes WC - Nurse 1 - General Ulcer Measurement Start: 05/09/21 10:09 Freq: Status: Active Protocol: Activity Type Activity Date Activity User E-Sign Co-Sign Detail Recorded Client Recorded Date Recorded By Document 05/09/21 10:09 RB Desktop 05/09/21 10:11 RB Document 05/16/21 10:21 RB [id number] 05/16/21 10:26 RB Document 05/23/21 08:07 [facility] [id number] 05/23/21 08:17 [facility] Document 05/30/21 14:37 DL Desktop 05/30/21 14:43 DL 05/09/21 05/16/21 05/23/21 10:09 10:21 08:07 Wound Center Nurse 1 #2- L MED [facility] -Combined with other wound No -Current Size (cm) - Length 0.3 -Current Size (cm) - Width 0.1 -Current Size (cm) - Depth 0.3 -Total Square Cm 0.03 -Date of Last Picture (Recall this 05/23/21 field) -Photo Taken Yes -Epithelialization None Present -Tunneling No -Undermining/Tunneling No -Circular Undermining No -Exudate Amt Small -Exudate Type Serosanguineous -Wound Margin Distinct, Outline Attached -Granulation Amt Small (1-33%) -Granulation Quality Red -Slough/Fibrin Yes -Necrosis Amt Large (67-100%) -Necrotic Tissue Type Adherent Slough -Structure Exposed -Texture (Mima-wound Skin Appearance) Assessed, Scarring -Moisture (Mima-wound Skin Appearance) Assessed -Color (Mima-wound Skin Appearance) Assessed, Erythema -Temperature (Mima-wound Skin No Abnormality Appearance) (Pt Warm) -Tenderness on Palpation (Mima-wound Skin Appearance) -Ulcer Cleansing SOAPY WATER -Foul Odor after Cleansing No -Anesthetic Used 5% Lidocaine Gel #1- L MEDIAL LE -Combined with other wound No No No -Current Size (cm) - Length 0.3 0.3 0.5 -Current Size (cm) - Width 0.3 0.3 0.4 -Current Size (cm) - Depth 1 1 0.5 -Total Square Cm 0.09 0.09 0.20 -Date of Last Picture (Recall this 05/23/21 field) -Photo Taken Yes -Epithelialization None Present -Tunneling No No No -Undermining/Tunneling No No No -Circular Undermining No No No -Exudate Amt Medium Small Medium -Exudate Type Serosanguineous Purulent Serosanguineous -Wound Margin Distinct, Distinct, Distinct, Outline Outline Outline Attached Attached Attached -Granulation Amt Medium (34-66%) Medium (34-66%) Large (67-100%) -Granulation Quality Lomira Lomira Red -Slough/Fibrin Yes Yes Yes -Necrosis Amt Medium (34-66%) Small (1-33%) Small (1-33%) -Necrotic Tissue Type Adherent Slough Adherent Slough Adherent Slough -Structure Exposed N/A N/A -Texture (Mima-wound Skin Appearance) Assessed, Assessed, Assessed, Scarring Scarring Scarring -Moisture (Mima-wound Skin Appearance) Assessed Assessed Assessed,Dry/ Scaly -Color (Mima-wound Skin Appearance) Assessed Assessed Assessed -Temperature (Mima-wound Skin No Abnormality No Abnormality No Abnormality Appearance) (Pt Warm) (Pt Warm) (Pt Warm) -Tenderness on Palpation (Mima-wound No No No Skin Appearance) -Ulcer Cleansing Wound Cleanser Wound Cleanser SOAPY WATER -Foul Odor after Cleansing No No No -Anesthetic Used 4% Lidocaine 5% Lidocaine Solution Gel Lower Limb Edema Present Yes Left Calf (cm) 31.2 31.3 Left Ankle (cm) 19.5 19.4 05/30/21 14:37 Wound Center Nurse 1 #2- L [facility] -Combined with other wound -Current Size (cm) - Length 0.6 -Current Size (cm) - Width 0.5 -Current Size (cm) - Depth 0.6 -Total Square Cm 0.30 -Date of Last Picture (Recall this field) -Photo Taken No -Epithelialization -Tunneling -Undermining/Tunneling -Circular Undermining -Exudate Amt Small -Exudate Type Serosanguineous -Wound Margin Distinct, Outline Attached -Granulation Amt Large (67-100%) -Granulation Quality Red -Slough/Fibrin -Necrosis Amt None Present (0 %) -Necrotic Tissue Type -Structure Exposed N/A -Texture (Mima-wound Skin Appearance) Scarring -Moisture (Mima-wound Skin Appearance) No Abnormality -Color (Mima-wound Skin Appearance) Hemosiderin Staining -Temperature (Mima-wound Skin No Abnormality Appearance) (Pt Warm) -Tenderness on Palpation (Mima-wound No Skin Appearance) -Ulcer Cleansing Rinsed/ Irrigated with Saline -Foul Odor after Cleansing No -Anesthetic Used 4% Lidocaine Solution #1- L MEDIAL LE -Combined with other wound -Current Size (cm) - Length -Current Size (cm) - Width -Current Size (cm) - Depth -Total Square Cm -Date of Last Picture (Recall this field) -Photo Taken -Epithelialization -Tunneling -Undermining/Tunneling -Circular Undermining -Exudate Amt -Exudate Type -Wound Margin -Granulation Amt -Granulation Quality -Slough/Fibrin -Necrosis Amt -Necrotic Tissue Type -Structure Exposed -Texture (Mima-wound Skin Appearance) -Moisture (Mima-wound Skin Appearance) -Color (Mima-wound Skin Appearance) -Temperature (Mima-wound Skin Appearance) -Tenderness on Palpation (Mima-wound Skin Appearance) -Ulcer Cleansing -Foul Odor after Cleansing -Anesthetic Used Lower Limb Edema Present Left Calf (cm) Left Ankle (cm) WC - Nurse 2 - General Ulcer CM Notes Start: 05/09/21 10:09 Freq: Status: Active Protocol: Activity Type Activity Date Activity User E-Sign Co-Sign Detail Recorded Client Recorded Date Recorded By Document 05/09/21 10:31 TENZIN [id number] 05/09/21 10:34 Document 05/16/21 10:51 JF [id number] 05/16/21 10:55 JF Document 05/23/21 08:39 JF [id number] 05/23/21 08:43 JF Document 05/30/21 15:09 JF [id number] 05/30/21 15:13 JF 05/09/21 05/16/21 05/23/21 10:31 10:51 08:39 Wound Center Nurse 2 #2- L [facility] -Time 08:40 -Correct Patient Yes -Correct Side, Site, Position Yes -Correct Procedure Yes -Procedure Performed Yes -Type of Procedure Debridement -Clinical Debridement Subcutaneous -Tissue Removed Subcutaneous -Post Debridement (cm) - Length 0.3 -Post Debridement (cm) - Width 0.2 -Post Debridement (cm) - Depth 1.1 -Total Square (Post) (cm) 0.06 -Area of Debridement (cm) - Length 0.3 -Area of Debridement (cm) - Width 0.2 -Total Square (Area) (cm) 0.06 -Tunneling No -Undermining/Tunneling No -Circular Undermining No -Wound/Ulcer Outcome Not Healed -Ulcer Cleansing Wound Cleanser -Foul Odor after Cleansing No -Bioengineered Tissue No -Bleeding Controlled with Pressure -Offloading No -Treatment Response Procedure Tolerated Well -Debridement - Subq, 1st 20sq cm No #1- L [facility] -Time 10:32 10:52 08:40 -Correct Patient Yes Yes Yes -Correct Side, Site, Position Yes Yes Yes -Correct Procedure Yes Yes Yes -Procedure Performed Yes Yes Yes -Type of Procedure Debridement Debridement Debridement -Clinical Debridement Subcutaneous Subcutaneous Subcutaneous -Tissue Removed Subcutaneous Subcutaneous Dermis -Post Debridement (cm) - Length 0.4 0.3 0.5 -Post Debridement (cm) - Width 0.3 0.3 0.5 -Post Debridement (cm) - Depth 1 1 0.7 -Total Square (Post) (cm) 0.12 0.09 0.25 -Area of Debridement (cm) - Length 0.4 0.3 0.5 -Area of Debridement (cm) - Width 0.3 0.3 0.5 -Total Square (Area) (cm) 0.12 0.09 0.25 -Tunneling No No No -Undermining/Tunneling No No No -Circular Undermining No No No -Wound/Ulcer Outcome Not Healed Not Healed Not Healed -Ulcer Cleansing Rinsed/ Rinsed/ Irrigated with Irrigated with Saline Saline -Foul Odor after Cleansing No No No -Bioengineered Tissue No No No -Bleeding Controlled with Pressure Pressure Pressure -Offloading No No No -Treatment Response Procedure Procedure Procedure Tolerated Well Tolerated Well Tolerated Well -Debridement - Subq, 1st 20sq cm Yes Yes Yes Pain Scale: 0-10 Numeric Is Patient Pain Free? Yes Yes Yes 05/30/21 15:09 Wound Center Nurse 2 #2- L [facility] -Time 15:09 -Correct Patient Yes -Correct Side, Site, Position Yes -Correct Procedure Yes -Procedure Performed Yes -Type of Procedure Debridement -Clinical Debridement Subcutaneous -Tissue Removed Subcutaneous -Post Debridement (cm) - Length 0.3 -Post Debridement (cm) - Width 0.3 -Post Debridement (cm) - Depth 0.2 -Total Square (Post) (cm) 0.09 -Area of Debridement (cm) - Length 0.3 -Area of Debridement (cm) - Width 0.3 -Total Square (Area) (cm) 0.09 -Tunneling No -Undermining/Tunneling No -Circular Undermining No -Wound/Ulcer Outcome Not Healed -Ulcer Cleansing Rinsed/ Irrigated with Saline -Foul Odor after Cleansing No -Bioengineered Tissue No -Bleeding Controlled with Pressure -Offloading No -Treatment Response Procedure Tolerated Well -Debridement - Subq, 1st 20sq cm No #1- L [facility] LE -Time 15:12 -Correct Patient Yes -Correct Side, Site, Position Yes -Correct Procedure Yes -Procedure Performed Yes -Type of Procedure Debridement -Clinical Debridement Subcutaneous -Tissue Removed Subcutaneous -Post Debridement (cm) - Length 0.6 -Post Debridement (cm) - Width 0.6 -Post Debridement (cm) - Depth 0.6 -Total Square (Post) (cm) 0.36 -Area of Debridement (cm) - Length 0.6 -Area of Debridement (cm) - Width 0.6 -Total Square (Area) (cm) 0.36 -Tunneling No -Undermining/Tunneling No -Circular Undermining No -Wound/Ulcer Outcome Not Healed -Ulcer Cleansing Rinsed/ Irrigated with Saline -Foul Odor after Cleansing No -Bioengineered Tissue No -Bleeding Controlled with Pressure -Offloading No -Treatment Response Procedure Tolerated Well -Debridement - Subq, 1st 20sq cm Yes Pain Scale: 0-10 Numeric Is Patient Pain Free? Yes - Nurse 3 - General Ulcer D/C NN Start: 05/09/21 10:09 Freq: Status: Active Protocol: Activity Type Activity Date Activity User E-Sign Co-Sign Detail Recorded Client Recorded Date Recorded By Document 05/09/21 10:48 [id number] 05/09/21 10:49 JF Document 05/16/21 11:09 RB [id number] 05/16/21 11:10 RB Document 05/23/21 08:49 RB Desktop 05/23/21 08:50 RB Document 05/30/21 15:26 RB Desktop 05/30/21 15:28 RB 05/09/21 05/16/21 05/23/21 10:48 11:09 08:49 Wound Care Nurse 3 #2- L MED LE [facility] -Ulcer Cleansing Rinsed/ Irrigated with Saline -Primary Dressing Applied Nugauze, Iodoform -Other Dressing -Primary Dressing Covered/Secured with Dry Gauze,Dry Gauze & Roll Gauze,Secured with Tape -Nugauze, Iodoform 1/4 1 #1- L MEDIAL LE -Ulcer Cleansing Rinsed/ Rinsed/ Irrigated with Irrigated with Saline Saline -Foul Odor after Cleansing No -Primary Dressing Applied Nugauze, Iodoform -Other Dressing gauze packed NUGAUZE into wound bed at noon -Primary Dressing Covered/Secured with Dry Gauze, Dry Gauze,Dry Dry Gauze,Dry Secured with Gauze & Roll Gauze & Roll Tape Gauze,Secured Gauze,Secured with Tape with Tape -Nugauze, Iodoform 1/4 1 Left -Tubular Bandage Single Layer Single Layer -Size of Tubigrip Used Size C Size C -Size C ($) 1 1 -Other ARCHANA Treatment Response Procedure Procedure Tolerated Well Tolerated Well Pain Scale: 0-10 Numeric Is Patient Pain Free? Yes Yes Yes - Visit Discharge Discharge Condition Stable Stable Stable Ambulatory Status Ambulatory Ambulatory Ambulatory Transportation Private Auto Private Auto Private Auto Medication Reconcilliation completed & Yes No No provided to patient/care provider Clinical Summary of Care Provided Yes Yes Yes 05/30/21 15:26 Wound Care Nurse 3 #2- L [facility] -Ulcer Cleansing Rinsed/ Irrigated with Saline -Primary Dressing Applied -Other Dressing 09/11 nugauze -Primary Dressing Covered/Secured with Dry Gauze,Dry Gauze & Roll Gauze,Secured with Tape -Nugauze, Iodoform 09/11 #1- L MEDIAL LE -Ulcer Cleansing Rinsed/ Irrigated with Saline -Foul Odor after Cleansing -Primary Dressing Applied -Other Dressing 09/11 nugauze -Primary Dressing Covered/Secured with Dry Gauze,Dry Gauze & Roll Gauze,Secured with Tape -Nugauze, Iodoform 09/11 Left -Tubular Bandage -Size of Tubigrip Used -Size C ($) -Other single tubigrip , archana Treatment Response Procedure Tolerated Well Pain Scale: 0-10 Numeric Is Patient Pain Free? Yes WC - Visit Discharge Discharge Condition Stable Ambulatory Status Ambulatory Transportation Private Auto Medication Reconcilliation completed & No provided to patient/care provider Clinical Summary of Care Provided Yes Assessment/Plan Assessment/Plan (1) Delayed wound healing: CODE(S): T14.8XXD - Other injury of unspecified body region, subsequent encounter (2) Ulcer of left lower extremity with fat layer exposed: CODE(S): L97.922 - Non-pressure chronic ulcer of unspecified part of left lower leg with fat layer exposed (3) Osteomyelitis: CODE(S): M86.9 - Osteomyelitis, unspecified PLAN: I reviewed and discussed her case today. Debridement was performed today as noted in the clinical panel to the ulcer site. The ulcer was debrided with misonix ultrasound debridement in an excisional manner. Instrumentation to address her tunneling was used and allowed better access to this deeper area. The ultrasound debridement, guided excision of nonhealthy and potentially infected tissue is performed with this technique. The following work up and care recommendations were made: Dressing: To continue sterile gauze packing or dakin use taking care to pack this into both positions. Wash: Antibacterial soap and water. Avoid soaking. To avoid bathtub bathing where her leg including her wound are submerged. I recommend she uses traditional antibacterial soap and water such as this and washes this with a wet washcloth including the adjacent foot and leg. Tissue growth optimization: If she does have a documented history of osteomyelitis that is chronic she may be a candidate for hyperbaric oxygen therapy. 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 Offload: To avoid direct pressure on the site. Vascular: She has nonpalpable pulses and lack of hair. She also has questionable claudication presentation. I recommend noninvasive vascular studies including MARI, segmental thigh and leg pressure, PVR, and systolic toe pressure. The results were reviewed and she has left biphasic waveforms, left MARI of 1.2, and left toe brachial index is 0.72. The segmental thigh and leg pressures were not obtained. There is not a difference of over 30 mmHg when compared to arm pressures. She is also advised to discontinue all tobacco products to optimize healing and limb salvage opportunities. Due to ongoing lack of healing, a vascular referral was provided for Dr. Rdz. She relates she is scheduled for June 06. Edema: There is mild to moderate edema. To wear Tubigrip for compression management. Compliance was discussed and necessary. I do not see an up-to-date venous Doppler with reflux evaluation exam on file [facility]. Orders placed placed and exam is pending. Infection: She does not have kevin purulent drainage today or erythema, streaking, or odor. To monitor for this. Culture was previously updated for mrsa pcr, aerobic and anearobic. She has a noted h/o MRSA growth. I recommend considering IV antibiotics due to her continued MRSA infections. She is also under the management of infectious disease specialist and continues IV antibiotics and has a PICC line in place. She is currently on a 6-week course of linezolid. Pain: Controlled Host factors: She has significant delays in healing. We discussed tobacco cessation and how this impairs healing. She has some muscle wasting and delayed healing and nutritional supplementation would also be beneficial. Labs: Updated labs were recently updated including CBC, CMP, ESR, C-reactive protein, and hemoglobin A1c. No leukocytosis was noted. ESR 24. CRP 23.5. No gross abnormalities with CMP. A1c of 5.5%. Imaging: Left leg xrays were recently updated - there is a healed fracture in the mid third of the left tibia but apparently there is periosteal reaction and what appears to be chronic osteomyelitis with possibility of sinus tract. I answered all the patient's questions. To return to the wound healing center in 1 week or call sooner if the patient has any questions or concerns. Note: [employer] speech recognition coremaking machine operator software was used to create portions of this document. Sound-alike and misspelled words, as well as other coremaking machine operator errors may be contained in the documentation.
[2021-06-06 10:48] VITALS: BP 128/73; PULSE 80; RESP 16; TEMP 37; BMI 20.5
--- NOTE | 2021-06-06 12:59 | PN.PCM_ITS ---
History of Present Illness Date of Service: 06/06/21 Chief Complaint: left leg ulcer History of Wound: This 60-year-old female was seen today for left leg ulcer. She recently started IV antibiotics. She denies fever, chill, nausea, vomiting, diarrhea. She tries to wear compression garment. She continues to smoke. She denies leg pain, redness, or odor. She denies trauma or recent increase in swelling. She went for consultation with vascular specialist, Dr. Rdz who recommended venous procedural intervention in [place]. The patient is concerned about transportation issues. Progress of Wound: Improved quality and reduced inflammation Objective Data Objective Data Vital Signs: Vital Signs Temp Pulse Resp BP 98.6 F 80 16 128/73 H 06/06/21 10:48 06/06/21 10:48 06/06/21 10:48 06/06/21 10:48 Oxygen Delivery Method Room Air Weight: 43.091 kg Body Mass Index (BMI) 20.5 Physical Exam Extremity Extremity Narrative: No calf tenderness Diminished pulses Muscle wasting noted Adjacent skin is atrophic and hairless. Prior skin grafting surgical intervention site noted with cicatrix Decreased leg edema. Reduced ulcer depth Recent skin discontinuity proximal to the initial site pinpoint size today wi thout probable depth Skin Skin Narrative: no kevin purulence, no erythema, no streaking, no odor. mima ulcer hyperpigmentation and edema continued. There is no periulcer inflammation. The ulcer depth is 0.5 cm and there is tunneling at the 2 o'clock position that is over 3 cm and also corresponds with this fascial plane Neuro Neuro Narrative: lack of normal epicritic sensation via light touch is consistent with neuropathy status Debridement Note Debridement Note Wound debrided: Left leg Wound Grade/Stage: Type of Debridement: Excisional debridement Anesthesia Used: 4% Lidocaine Solution Depth: in the subcutaneous layer Percentage of wound debrided: 100 Instrument Used: #15 blade Tissue Removed: fibrous, devitalized subcutaneous, biofilm, slough Severity: Fat Layer Exposed Amount of bleeding with debridement: Mild Bleeding Controlled with: Pressure Patient tolerated procedure: Patient tolerated procedure well Post-Debridement Measurements and Additional Note: Post-Debridement Measurements/Treatment YVETTE - Nurse 1 - General Ulcer Assessment Start: 05/09/21 10:09 Freq: Status: Active Protocol: ELENA Activity Type Activity Date Activity User E-Sign Co-Sign Detail Recorded Client Recorded Date Recorded By Document 05/09/21 10:09 RB Desktop 05/09/21 10:11 RB Document 05/16/21 10:21 RB [id number] 05/16/21 10:26 RB Document 05/23/21 08:07 BM [id number] 05/23/21 08:17 BMF Document 05/30/21 14:37 DL Desktop 05/30/21 14:43 DL Document 06/06/21 10:48 [facility] [id number] 06/06/21 11:00 [facility] 05/09/21 05/16/21 05/23/21 10:09 10:21 08:07 WC - Today's Visit Information Type of service Follow-up Visit Follow-up Visit Follow-up Visit (Physician/NASCAR PIT CREW PERSON (Physician/NASCAR PIT CREW PERSON (Physician/NASCAR PIT CREW PERSON ) ) ) Arrival Mode Ambulatory Ambulatory Ambulatory Transfer Assistance None None None Patient Identification Verified (Name & Yes Yes Yes ) Patient Requires Transmission-Based No No No Precautions Height and Weight Body Mass Index (BMI) 20.5 20.5 20.5 BMI Classification Normal Normal Normal Vital Signs Temperature (97.8 F-99.1 F) 97 F L 98 F 97.3 F L Temperature Source Temporal Temporal Temporal Pulse Rate (60-100) 90 82 86 Pulse Location Monitor Monitor Monitor Respiratory Rate (12-18) 18 18 16 Respiratory rate source Observation Observation Observation Oxygen Delivery Method Room Air Blood Pressure (90/60-120/80) 130/77 H 136/68 H 132/84 H Blood Pressure Mean (mm Hg) 94 90 100 Source Monitor Monitor Monitor Position Semi-Fowlers Sitting Sitting Blood Pressure Location Left Arm Left Arm Right Arm History Since Last Visit- (Skip if this is Patient's initial visit) Have you changed medications since your No No No last visit? Any new allergies or adverse reactions No No No Had a fall/change in ADL's that may No No No increase risk of falls Signs or symptoms of abuse and/or No No No neglect since last visit Have you been in the hospital since your No No No last visit? Has dressing in place as prescribed Yes Yes Yes Has compression in place as prescribed Yes No Yes Has offloadiing in place as prescribed No No N/A Experienced any changes in pain level or No No No management Left Footwear Regular Shoe Regular Shoe Regular Shoe Right Footwear Regular Shoe Regular Shoe Regular Shoe Pain Scale: 0-10 Numeric Is Patient Pain Free? Yes Yes Yes 05/30/21 06/06/21 14:37 10:48 - Today's Visit Information Type of service Follow-up Visit Follow-up Visit (Physician/NASCAR PIT CREW PERSON (Physician/NASCAR PIT CREW PERSON ) ) Arrival Mode Ambulatory Ambulatory Transfer Assistance None None Patient Identification Verified (Name & Yes Yes ) Patient Requires Transmission-Based No No Precautions Height and Weight Body Mass Index (BMI) 20.5 20.5 BMI Classification Normal Normal Vital Signs Temperature (97.8 F-99.1 F) 97.5 F L 98.6 F Temperature Source Temporal Temporal Pulse Rate (60-100) 84 80 Pulse Location Monitor Monitor Respiratory Rate (12-18) 20 H 16 Respiratory rate source Observation Observation Oxygen Delivery Method Room Air Blood Pressure (90/60-120/80) 152/83 H 128/73 H Blood Pressure Mean (mm Hg) 106 91 Source Monitor Monitor Position Sitting Blood Pressure Location Right Arm History Since Last Visit- (Skip if this is Patient's initial visit) Have you changed medications since your No No last visit? Any new allergies or adverse reactions No No Had a fall/change in ADL's that may No No increase risk of falls Signs or symptoms of abuse and/or No No neglect since last visit Have you been in the hospital since your No No last visit? Has dressing in place as prescribed Yes Yes Has compression in place as prescribed Yes Yes Has offloadiing in place as prescribed N/A N/A Experienced any changes in pain level or No No management Left Footwear Regular Shoe Right Footwear Regular Shoe Pain Scale: 0-10 Numeric Is Patient Pain Free? Yes Yes - Nurse 1 - General Ulcer Measurement Start: 05/09/21 10:09 Freq: Status: Active Protocol: Activity Type Activity Date Activity User E-Sign Co-Sign Detail Recorded Client Recorded Date Recorded By Document 05/09/21 10:09 RB Desktop 05/09/21 10:11 RB Document 05/16/21 10:21 RB [id number] 05/16/21 10:26 RB Document 05/23/21 08:07 BM [id number] 05/23/21 08:17 BMF Document 05/30/21 14:37 DL Desktop 05/30/21 14:43 DL Document 06/06/21 10:48 [facility] [id number] 06/06/21 11:00 [facility] 05/09/21 05/16/21 05/23/21 10:09 10:21 08:07 Wound Center Nurse 1 #2- L [facility] -Combined with other wound No -Current Size (cm) - Length 0.3 -Current Size (cm) - Width 0.1 -Current Size (cm) - Depth 0.3 -Total Square Cm 0.03 -Date of Last Picture (Recall this 05/23/21 field) -Photo Taken Yes -Epithelialization None Present -Tunneling No -Undermining/Tunneling No -Circular Undermining No -Exudate Amt Small -Exudate Type Serosanguineous -Wound Margin Distinct, Outline Attached -Granulation Amt Small (1-33%) -Granulation Quality Red -Slough/Fibrin Yes -Necrosis Amt Large (67-100%) -Necrotic Tissue Type Adherent Slough -Structure Exposed -Texture (Mima-wound Skin Appearance) Assessed, Scarring -Moisture (Mima-wound Skin Appearance) Assessed -Color (Mima-wound Skin Appearance) Assessed, Erythema -Temperature (Mima-wound Skin No Abnormality Appearance) (Pt Warm) -Tenderness on Palpation (Mima-wound Skin Appearance) -Ulcer Cleansing SOAPY WATER -Foul Odor after Cleansing No -Anesthetic Used 5% Lidocaine Gel #1- L [facility] -Combined with other wound No No No -Current Size (cm) - Length 0.3 0.3 0.5 -Current Size (cm) - Width 0.3 0.3 0.4 -Current Size (cm) - Depth 1 1 0.5 -Total Square Cm 0.09 0.09 0.20 -Date of Last Picture (Recall this 05/23/21 field) -Photo Taken Yes -Epithelialization None Present -Tunneling No No No -Tunneling Position (O'clock) -Tunneling Distance (cm) -Undermining/Tunneling No No No -Circular Undermining No No No -Exudate Amt Medium Small Medium -Exudate Type Serosanguineous Purulent Serosanguineous -Wound Margin Distinct, Distinct, Distinct, Outline Outline Outline Attached Attached Attached -Granulation Amt Medium (34-66%) Medium (34-66%) Large (67-100%) -Granulation Quality [place] Red -Slough/Fibrin Yes Yes Yes -Necrosis Amt Medium (34-66%) Small (1-33%) Small (1-33%) -Necrotic Tissue Type Adherent Slough Adherent Slough Adherent Slough -Structure Exposed N/A N/A -Texture (Mima-wound Skin Appearance) Assessed, Assessed, Assessed, Scarring Scarring Scarring -Moisture (Mima-wound Skin Appearance) Assessed Assessed Assessed,Dry/ Scaly -Color (Mima-wound Skin Appearance) Assessed Assessed Assessed -Temperature (Mima-wound Skin No Abnormality No Abnormality No Abnormality Appearance) (Pt Warm) (Pt Warm) (Pt Warm) -Tenderness on Palpation (Mima-wound No No No Skin Appearance) -Ulcer Cleansing Wound Cleanser Wound Cleanser SOAPY WATER -Foul Odor after Cleansing No No No -Anesthetic Used 4% Lidocaine 5% Lidocaine Solution Gel Lower Limb Edema Present Yes Left Calf (cm) 31.2 31.3 Left Ankle (cm) 19.5 19.4 05/30/21 06/06/21 14:37 10:48 Wound Center Nurse 1 #2- L [facility] -Combined with other wound No -Current Size (cm) - Length 0.6 0.1 -Current Size (cm) - Width 0.5 0.1 -Current Size (cm) - Depth 0.6 0.1 -Total Square Cm 0.30 0.01 -Date of Last Picture (Recall this field) -Photo Taken No -Epithelialization Large 67-100% -Tunneling -Undermining/Tunneling -Circular Undermining -Exudate Amt Small -Exudate Type Serosanguineous -Wound Margin Distinct, Outline Attached -Granulation Amt Large (67-100%) -Granulation Quality Red -Slough/Fibrin -Necrosis Amt None Present (0 %) -Necrotic Tissue Type -Structure Exposed N/A -Texture (Mima-wound Skin Appearance) Scarring Assessed, Scarring -Moisture (Mima-wound Skin Appearance) No Abnormality Assessed,Dry/ Scaly -Color (Mima-wound Skin Appearance) Hemosiderin Assessed Staining -Temperature (Mima-wound Skin No Abnormality No Abnormality Appearance) (Pt Warm) (Pt Warm) -Tenderness on Palpation (Mima-wound No No Skin Appearance) -Ulcer Cleansing Rinsed/ Rinsed/ Irrigated with Irrigated with Saline Saline -Foul Odor after Cleansing No No -Anesthetic Used 4% Lidocaine 5% Lidocaine Solution Gel #1- L [facility] -Combined with other wound No -Current Size (cm) - Length 0.4 -Current Size (cm) - Width 0.3 -Current Size (cm) - Depth 0.6 -Total Square Cm 0.12 -Date of Last Picture (Recall this 06/06/21 field) -Photo Taken Yes -Epithelialization None Present -Tunneling Yes -Tunneling Position (O'clock) 12 -Tunneling Distance (cm) 0.8 -Undermining/Tunneling No -Circular Undermining No -Exudate Amt Medium -Exudate Type Serosanguineous -Wound Margin Distinct, Outline Attached -Granulation Amt Large (67-100%) -Granulation Quality Red -Slough/Fibrin Yes -Necrosis Amt Small (1-33%) -Necrotic Tissue Type Adherent Slough -Structure Exposed -Texture (Mima-wound Skin Appearance) Assessed, Scarring -Moisture (Mima-wound Skin Appearance) Assessed -Color (Mima-wound Skin Appearance) Assessed -Temperature (Mima-wound Skin No Abnormality Appearance) (Pt Warm) -Tenderness on Palpation (Mima-wound No Skin Appearance) -Ulcer Cleansing Rinsed/ Irrigated with Saline -Foul Odor after Cleansing No -Anesthetic Used 5% Lidocaine Gel Lower Limb Edema Present Yes Left Calf (cm) 30.4 Left Ankle (cm) 19.4 WC - Nurse 2 - General Ulcer CM Notes Start: 05/09/21 10:09 Freq: Status: Active Protocol: Activity Type Activity Date Activity User E-Sign Co-Sign Detail Recorded Client Recorded Date Recorded By Document 05/09/21 10:31 [id number] 05/09/21 10:34 Document 05/16/21 10:51 [id number] 05/16/21 10:55 Document 05/23/21 08:39 [id number] 05/23/21 08:43 Document 05/30/21 15:09 [id number] 05/30/21 15:13 Document 06/06/21 11:16 [id number] 06/06/21 11:19 05/09/21 05/16/21 05/23/21 10:31 10:51 08:39 Wound Center Nurse 2 #2- L [facility] -Time 08:40 -Correct Patient Yes -Correct Side, Site, Position Yes -Correct Procedure Yes -Procedure Performed Yes -Type of Procedure Debridement -Clinical Debridement Subcutaneous -Tissue Removed Subcutaneous -Post Debridement (cm) - Length 0.3 -Post Debridement (cm) - Width 0.2 -Post Debridement (cm) - Depth 1.1 -Total Square (Post) (cm) 0.06 -Area of Debridement (cm) - Length 0.3 -Area of Debridement (cm) - Width 0.2 -Total Square (Area) (cm) 0.06 -Tunneling No -Undermining/Tunneling No -Circular Undermining No -Wound/Ulcer Outcome Not Healed -Ulcer Cleansing Wound Cleanser -Foul Odor after Cleansing No -Bioengineered Tissue No -Bleeding Controlled with Pressure -Offloading No -Treatment Response Procedure Tolerated Well -Debridement - Subq, 1st 20sq cm No #1- L [facility] -Time 10:32 10:52 08:40 -Correct Patient Yes Yes Yes -Correct Side, Site, Position Yes Yes Yes -Correct Procedure Yes Yes Yes -Procedure Performed Yes Yes Yes -Type of Procedure Debridement Debridement Debridement -Clinical Debridement Subcutaneous Subcutaneous Subcutaneous -Tissue Removed Subcutaneous Subcutaneous Dermis -Post Debridement (cm) - Length 0.4 0.3 0.5 -Post Debridement (cm) - Width 0.3 0.3 0.5 -Post Debridement (cm) - Depth 1 1 0.7 -Total Square (Post) (cm) 0.12 0.09 0.25 -Area of Debridement (cm) - Length 0.4 0.3 0.5 -Area of Debridement (cm) - Width 0.3 0.3 0.5 -Total Square (Area) (cm) 0.12 0.09 0.25 -Tunneling No No No -Tunneling Position (O'clock) -Tunneling Distance (cm) -Undermining/Tunneling No No No -Circular Undermining No No No -Wound/Ulcer Outcome Not Healed Not Healed Not Healed -Ulcer Cleansing Rinsed/ Rinsed/ Irrigated with Irrigated with Saline Saline -Foul Odor after Cleansing No No No -Bioengineered Tissue No No No -Bleeding Controlled with Pressure Pressure Pressure -Offloading No No No -Treatment Response Procedure Procedure Procedure Tolerated Well Tolerated Well Tolerated Well -Debridement - Subq, 1st 20sq cm Yes Yes Yes Pain Scale: 0-10 Numeric Is Patient Pain Free? Yes Yes Yes 05/30/21 06/06/21 15:09 11:16 Wound Center Nurse 2 #2- L [facility] -Time 15:09 11:16 -Correct Patient Yes Yes -Correct Side, Site, Position Yes Yes -Correct Procedure Yes Yes -Procedure Performed Yes Yes -Type of Procedure Debridement Debridement -Clinical Debridement Subcutaneous Subcutaneous -Tissue Removed Subcutaneous Subcutaneous -Post Debridement (cm) - Length 0.3 0.1 -Post Debridement (cm) - Width 0.3 0.1 -Post Debridement (cm) - Depth 0.2 0.1 -Total Square (Post) (cm) 0.09 0.01 -Area of Debridement (cm) - Length 0.3 0.1 -Area of Debridement (cm) - Width 0.3 0.1 -Total Square (Area) (cm) 0.09 0.01 -Tunneling No No -Undermining/Tunneling No No -Circular Undermining No No -Wound/Ulcer Outcome Not Healed Not Healed -Ulcer Cleansing Rinsed/ Rinsed/ Irrigated with Irrigated with Saline Saline -Foul Odor after Cleansing No No -Bioengineered Tissue No No -Bleeding Controlled with Pressure Pressure -Offloading No No -Treatment Response Procedure Procedure Tolerated Well Tolerated Well -Debridement - Subq, 1st 20sq cm No No #1- L [facility] -Time 15:12 11:17 -Correct Patient Yes Yes -Correct Side, Site, Position Yes Yes -Correct Procedure Yes Yes -Procedure Performed Yes Yes -Type of Procedure Debridement Incision & Drainage -Clinical Debridement Subcutaneous Subcutaneous -Tissue Removed Subcutaneous Subcutaneous -Post Debridement (cm) - Length 0.6 0.5 -Post Debridement (cm) - Width 0.6 0.4 -Post Debridement (cm) - Depth 0.6 0.5 -Total Square (Post) (cm) 0.36 0.20 -Area of Debridement (cm) - Length 0.6 0.5 -Area of Debridement (cm) - Width 0.6 0.4 -Total Square (Area) (cm) 0.36 0.20 -Tunneling No Yes -Tunneling Position (O'clock) 2 -Tunneling Distance (cm) 3.3 -Undermining/Tunneling No No -Circular Undermining No No -Wound/Ulcer Outcome Not Healed Not Healed -Ulcer Cleansing Rinsed/ Rinsed/ Irrigated with Irrigated with Saline Saline -Foul Odor after Cleansing No No -Bioengineered Tissue No No -Bleeding Controlled with Pressure Pressure -Offloading No No -Treatment Response Procedure Procedure Tolerated Well Tolerated Well -Debridement - Subq, 1st 20sq cm Yes Yes Pain Scale: 0-10 Numeric Is Patient Pain Free? Yes Yes - Nurse 3 - General Ulcer D/C NN Start: 05/09/21 10:09 Freq: Status: Active Protocol: Activity Type Activity Date Activity User E-Sign Co-Sign Detail Recorded Client Recorded Date Recorded By Document 05/09/21 10:48 [id number] 05/09/21 10:49 JF Document 05/16/21 11:09 RB [id number] 05/16/21 11:10 RB Document 05/23/21 08:49 RB Desktop 05/23/21 08:50 RB Document 05/30/21 15:26 RB Desktop 05/30/21 15:28 RB Document 06/06/21 11:41 RB [id number] 06/06/21 11:43 RB 05/09/21 05/16/21 05/23/21 10:48 11:09 08:49 Wound Care Nurse 3 #2- L [facility] -Ulcer Cleansing Rinsed/ Irrigated with Saline -Primary Dressing Applied Nugauze, Iodoform -Other Dressing -Primary Dressing Covered/Secured with Dry Gauze,Dry Gauze & Roll Gauze,Secured with Tape -Mozel AG 2x2 -Nugauze, Iodoform 1/4 1 #1- L [facility] -Ulcer Cleansing Rinsed/ Rinsed/ Irrigated with Irrigated with Saline Saline -Foul Odor after Cleansing No -Primary Dressing Applied Nugauze, Iodoform -Other Dressing gauze packed NUGAUZE into wound bed at noon -Primary Dressing Covered/Secured with Dry Gauze, Dry Gauze,Dry Dry Gauze,Dry Secured with Gauze & Roll Gauze & Roll Tape Gauze,Secured Gauze,Secured with Tape with Tape -Nugauze, Iodoform 1/4 1 -Nugauze, Plain Iodoform 1/4 Left -Tubular Bandage Single Layer Single Layer -Size of Tubigrip Used Size C Size C -Size C ($) 1 1 -Other ARCHANA Treatment Response Procedure Procedure Tolerated Well Tolerated Well Pain Scale: 0-10 Numeric Is Patient Pain Free? Yes Yes Yes - Visit Discharge Discharge Condition Stable Stable Stable Ambulatory Status Ambulatory Ambulatory Ambulatory Transportation [facility] [employer] Medication Reconcilliation completed & Yes No No provided to patient/care provider Clinical Summary of Care Provided Yes Yes Yes 05/30/21 06/06/21 15:26 11:41 Wound Care Nurse 3 #2- L [facility] -Ulcer Cleansing Rinsed/ Rinsed/ Irrigated with Irrigated with Saline Saline -Primary Dressing Applied Aquacel AG 2x2 -Other Dressing 1/4 nugauze -Primary Dressing Covered/Secured with Dry Gauze,Dry Dry Gauze,Dry Gauze & Roll Gauze & Roll Gauze,Secured Gauze,Secured with Tape with Tape -Aquacel AG 2x2 1 -Nugauze, Iodoform 1/4 #1- L [facility] LE -Ulcer Cleansing Rinsed/ Rinsed/ Irrigated with Irrigated with Saline Saline -Foul Odor after Cleansing -Primary Dressing Applied Nugauze, Plain Iodoform -Other Dressing 1/4 nugauze -Primary Dressing Covered/Secured with Dry Gauze,Dry Dry Gauze,Dry Gauze & Roll Gauze & Roll Gauze,Secured Gauze,Secured with Tape with Tape -Nugauze, Iodoform 1/4 -Nugauze, Plain Iodoform 1/4 1 Left -Tubular Bandage -Size of Tubigrip Used -Size C ($) -Other single tubigrip single tubigrip , archana Treatment Response Procedure Procedure Tolerated Well Tolerated Well Pain Scale: 0-10 Numeric Is Patient Pain Free? Yes Yes WC - Visit Discharge Discharge Condition Stable Stable Ambulatory Status Ambulatory Ambulatory Transportation [facility] [employer] Medication Reconcilliation completed & No No provided to patient/care provider Clinical Summary of Care Provided Yes Yes Assessment/Plan Assessment/Plan (1) Delayed wound healing: CODE(S): T14.8XXD - Other injury of unspecified body region, subsequent encounter (2) Ulcer of left lower extremity with fat layer exposed: CODE(S): L97.922 - Non-pressure chronic ulcer of unspecified part of left lower leg with fat layer exposed (3) Osteomyelitis: CODE(S): M86.9 - Osteomyelitis, unspecified PLAN: I reviewed and discussed her case today. Debridement was performed today as noted in the clinical panel to the ulcer site. The following work up and care recommendations were made: Dressing: To continue sterile gauze packing or dakin use taking care to pack this wound that has tunneling and I recommend Aquacel Ag to the more proximal smaller superficial ulcer site. Wash: Antibacterial soap and water. Avoid soaking. To avoid bathtub bathing where her leg including her wound are submerged. I recommend she uses tra ditional antibacterial soap and water such as this and washes this with a wet washcloth including the adjacent foot and leg. Tissue growth optimization: If she does have a documented history of osteo myelitis that is chronic she may be a candidate for hyperbaric oxygen therapy. 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 Offload: To avoid direct pressure on the site. Vascular: She has nonpalpable pulses and lack of hair. She also has questionable claudication presentation. I recommend noninvasive vascular studies including MARI, segmental thigh and leg pressure, PVR, and systolic toe pressure. The results were reviewed and she has left biphasic waveforms, left MARI of 1.2, and left toe brachial index is 0.72. The segmental thigh and leg pressures were not obtained. There is not a difference of over 30 mmHg when compared to arm pressures. She is also advised to discontinue all tobacco products to optimize healing and limb salvage opportunities. Due to ongoing lack of healing, a vascular referral was provided for Dr. Rdz. She relates she is scheduled for June 06. Edema: There is mild to moderate edema. To wear Tubigrip for compression management. Compliance was discussed and necessary. She had Doppler with reflux exam performed and followed up with vascular specialist. Venous intervention was recommended. She will work on understanding her transportation opportunities to get to [place]. Infection: She does not have kevin purulent drainage today or erythema, streaking, or odor. To monitor for this. Culture was previously updated for mrsa pcr, aerobic and anearobic. She has a noted h/o MRSA growth. I recommend considering IV antibiotics due to her continued MRSA infections. She is also under the management of infectious disease specialist and continues IV antibiotics and has a PICC line in place. She is currently on a 6-week course of linezolid. Pain: Controlled Host factors: She has significant delays in healing. We discussed tobacco cessation and how this impairs healing. She has some muscle wasting and delayed healing and nutritional supplementation would also be beneficial. Labs: Updated labs were recently updated including CBC, CMP, ESR, C-reactive protein, and hemoglobin A1c. No leukocytosis was noted. ESR 24. CRP 23.5. No gross abnormalities with CMP. A1c of 5.5%. Imaging: Left leg xrays were recently updated - there is a healed fracture in the mid third of the left tibia but apparently there is periosteal reaction and what appears to be chronic osteomyelitis with possibility of sinus tract. I answered all the patient's questions. To return to the wound healing center in 1 week or call sooner if the patient has any questions or concerns. Note: [employer] speech recognition printed circuit designer software was used to create portions of this document. Sound-alike and misspelled words, as well as other printed circuit designer errors may be contained in the documentation.
== END 2021-06-07 23:59 ==
LOC: WC 11:00
PROVIDERS: Referring Provider Podiatrist; Visit Provider Podiatrist
DX: I87.2 Venous insufficiency (chronic) (peripheral) (principal); T14.8XXD Other injury of unspecified body region, subsequent encounter; L97.922 Non-pressure chronic ulcer of unspecified part of left lower leg with fat layer exposed; M86.9 Osteomyelitis, unspecified; M62.50 Muscle wasting and atrophy, not elsewhere classified, unspecified site; Z86.14 Personal history of Methicillin resistant Staphylococcus aureus infection; K21.9 Gastro-esophageal reflux disease without esophagitis
CPT/HCPCS: 11042

== ENCOUNTER 2021-07-04 08:30 | Outpatient (RCR) | payer MEDICAID, SELFPAY ==
[2021-06-08 00:26] VITALS: BP 128/73; PULSE 80; RESP 16; TEMP 37; BMI 20.5
[2021-06-13 13:45] VITALS: BP 157/57; PULSE 85; RESP 18; TEMP 36.5; BMI 20.5
--- NOTE | 2021-06-13 15:06 | PN.PCM_ITS ---
History of Present Illness Date of Service: 06/13/21 Chief Complaint: left leg ulcer History of Wound: This 60-year-old female was seen today for left leg ulcer. She denies fever, chill, nausea, vomiting, diarrhea. She tries to wear compression garment. She continues to smoke. She denies leg pain, redness, or odor. She denies trauma or recent increase in swelling. She went for consultation with vascular specialist, Dr. Rdz who recommended venous procedural intervention in [place]. The patient is concerned about transportation issues and forgot to call to try to get this set up with her insurance. Her wound is significantly smaller. She is scheduled to complete her IV antibiotics this week for treatment of osteomyelitis. Progress of Wound: improving Objective Data Objective Data Vital Signs: Vital Signs Temp Pulse Resp BP 97.7 F L 85 18 157/57 H 06/13/21 13:45 06/13/21 13:45 06/13/21 13:45 06/13/21 13:45 Weight: 43.091 kg Body Mass Index (BMI) 20.5 Physical Exam Extremity Extremity Narrative: No calf tenderness Diminished pulses Muscle wasting noted Adjacent skin is atrophic and hairless. Prior skin grafting surgical intervention site noted with cicatrix Decreased leg edema. Reduced ulcer depth Recent skin discontinuity proximal to the initial site has now healed with full epithelialization Skin Skin Narrative: no kevin purulence, no erythema, no streaking, no odor. mima ulcer hyperpigmentation and edema continued. There is no periulcer inflammation. Ulcer size reduction without deep probing today Neuro Neuro Narrative: lack of normal epicritic sensation via light touch is consistent with neuropathy status Debridement Note Debridement Note Wound debrided: Left leg Wound Grade/Stage: Type of Debridement: Excisional debridement Anesthesia Used: 4% Lidocaine Solution Depth: in the subcutaneous layer Percentage of wound debrided: 100 Instrument Used: - (1 mm Curette) Tissue Removed: fibrous, devitalized subcutaneous, biofilm, slough Severity: Fat Layer Exposed Amount of bleeding with debridement: Mild Bleeding Controlled with: Pressure Patient tolerated procedure: Patient tolerated procedure well Post-Debridement Measurements and Additional Note: Post-Debridement Measurements/Treatment [id number] - Nurse 1 - General Ulcer Assessment Start: 06/13/21 13:45 Freq: Status: Active Protocol: ELENA Activity Type Activity Date Activity User E-Sign Co-Sign Detail Recorded Client Recorded Date Recorded By Document 06/13/21 13:45 DL [id number] 06/13/21 13:55 DL 06/13/21 13:45 WC - Today's Visit Information Type of service Follow-up Visit (Physician/OFFICE ELECTRICIAN ) Arrival Mode Ambulatory Transfer Assistance None Patient Identification Verified (Name & Yes ) Patient Requires Transmission-Based No Precautions Height and Weight Body Mass Index (BMI) 20.5 BMI Classification Normal Vital Signs Temperature (97.8 F-99.1 F) 97.7 F L Temperature Source Temporal Pulse Rate (60-100) 85 Pulse Location Monitor Respiratory Rate (12-18) 18 Respiratory rate source Observation Blood Pressure (90/60-120/80) 157/57 H Blood Pressure Mean (mm Hg) 90 Source Monitor History Since Last Visit- (Skip if this is Patient's initial visit) Have you changed medications since your No last visit? Any new allergies or adverse reactions No Had a fall/change in ADL's that may No increase risk of falls Signs or symptoms of abuse and/or No neglect since last visit Have you been in the hospital since your No last visit? Has dressing in place as prescribed Yes Has compression in place as prescribed N/A Has offloadiing in place as prescribed N/A Experienced any changes in pain level or No management Pain Scale: 0-10 Numeric Is Patient Pain Free? Yes - Nurse 1 - General Ulcer Measurement Start: 06/13/21 13:45 Freq: Status: Active Protocol: Activity Type Activity Date Activity User E-Sign Co-Sign Detail Recorded Client Recorded Date Recorded By Document 06/13/21 13:45 DL [id number] 06/13/21 13:55 DL 06/13/21 13:45 Wound Center Nurse 1 #2- L MED LE SUPERIOR -Current Size (cm) - Length 0 -Current Size (cm) - Width 0 -Current Size (cm) - Depth 0 -Total Square Cm 0 -Photo Taken Yes -Exudate Amt None Present -Wound Margin Flat & Intact -Granulation Amt Large (67-100%) -Granulation Quality [place] -Structure Exposed N/A -Texture (Mima-wound Skin Appearance) No Abnormality -Moisture (Mima-wound Skin Appearance) Dry/Scaly -Color (Mima-wound Skin Appearance) No Abnormality -Temperature (Mima-wound Skin No Abnormality Appearance) (Pt Warm) -Tenderness on Palpation (Mima-wound No Skin Appearance) -Ulcer Cleansing Rinsed/ Irrigated with Saline -Foul Odor after Cleansing No #1- L MEDIAL LE -Current Size (cm) - Length 0.3 -Current Size (cm) - Width 0.2 -Current Size (cm) - Depth 0.6 -Total Square Cm 0.06 -Photo Taken No -Exudate Amt None Present -Wound Margin Flat & Intact -Granulation Amt Small (1-33%) -Granulation Quality Red -Necrosis Amt None Present (0 %) -Structure Exposed N/A -Texture (Mima-wound Skin Appearance) Scarring -Moisture (Mima-wound Skin Appearance) No Abnormality -Color (Mima-wound Skin Appearance) No Abnormality, Hemosiderin Staining -Temperature (Mima-wound Skin No Abnormality Appearance) (Pt Warm) -Tenderness on Palpation (Mima-wound No Skin Appearance) -Ulcer Cleansing Rinsed/ Irrigated with Saline -Foul Odor after Cleansing No -Anesthetic Used 5% Lidocaine Gel Left Calf (cm) 31 Left Ankle (cm) 18.3 WC - Nurse 2 - General Ulcer CM Notes Start: 06/13/21 13:45 Freq: Status: Active Protocol: Activity Type Activity Date Activity User E-Sign Co-Sign Detail Recorded Client Recorded Date Recorded By Document 06/13/21 14:25 TENZIN [id number] 06/13/21 14:27 TENZIN 06/13/21 14:25 Wound Center Nurse 2 #2- L MED LE SUPERIOR -Correct Patient No -Correct Side, Site, Position No -Correct Procedure No -Procedure Performed No -Post Debridement (cm) - Length 0 -Post Debridement (cm) - Width 0 -Post Debridement (cm) - Depth 0 -Total Square (Post) (cm) 0 -Area of Debridement (cm) - Length 0 -Area of Debridement (cm) - Width 0 -Total Square (Area) (cm) 0 -Wound/Ulcer Outcome Healed- Epithelialized #1- L MEDIAL LE -Time 14:25 -Correct Patient Yes -Correct Side, Site, Position Yes -Correct Procedure Yes -Procedure Performed Yes -Type of Procedure Debridement -Clinical Debridement Subcutaneous -Tissue Removed Subcutaneous -Post Debridement (cm) - Length 0.3 -Post Debridement (cm) - Width 0.3 -Post Debridement (cm) - Depth 0.6 -Total Square (Post) (cm) 0.09 -Area of Debridement (cm) - Length 0.3 -Area of Debridement (cm) - Width 0.3 -Total Square (Area) (cm) 0.09 -Tunneling No -Undermining/Tunneling No -Circular Undermining No -Wound/Ulcer Outcome Not Healed -Ulcer Cleansing Rinsed/ Irrigated with Saline -Foul Odor after Cleansing No -Bioengineered Tissue No -Bleeding Controlled with Pressure -Offloading No -Treatment Response Procedure Tolerated Well -Debridement - Subq, 1st 20sq cm Yes Pain Scale: 0-10 Numeric Is Patient Pain Free? Yes WC - Nurse 3 - General Ulcer D/C NN Start: 06/13/21 13:45 Freq: Status: Active Protocol: Activity Type Activity Date Activity User E-Sign Co-Sign Detail Recorded Client Recorded Date Recorded By Document 06/13/21 14:47 ML [id number] 06/13/21 14:47 ML 06/13/21 14:47 Wound Care Nurse 3 #1- L MEDIAL LE -Ulcer Cleansing Rinsed/ Irrigated with Saline -Primary Dressing Covered/Secured with Dry Gauze, Secured with Tape Left -Tubular Bandage Single Layer -Size of Tubigrip Used Size C -Size C ($) 1 Assessment/Plan Assessment/Plan (1) Delayed wound healing: CODE(S): T14.8XXD - Other injury of unspecified body region, subsequent encounter (2) Ulcer of left lower extremity with fat layer exposed: CODE(S): L97.922 - Non-pressure chronic ulcer of unspecified part of left lower leg with fat layer exposed (3) Osteomyelitis: CODE(S): M86.9 - Osteomyelitis, unspecified PLAN: I reviewed and discussed her case today. Debridement was performed today as noted in the clinical panel to the ulcer site. The following work up and care recommendations were made: Dressing: To continue sterile gauze packing or dakin use taking care to pack this wound that has tunneling and I recommend Aquacel Ag to the more proximal smaller superficial ulcer site. Wash: Antibacterial soap and water. Avoid soaking. To avoid bathtub bathing where her leg including her wound are submerged. I recommend she uses traditional antibacterial soap and water such as this and washes this with a wet washcloth including the adjacent foot and leg. Tissue growth optimization: If she does have a documented history of osteomyelitis that is chronic she may be a candidate for hyperbaric oxygen therapy. 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 Offload: To avoid direct pressure on the site. Vascular: She has nonpalpable pulses and lack of hair. She also has questionable claudication presentation. I recommend noninvasive vascular studies including MARI, segmental thigh and leg pressure, PVR, and systolic toe pressure. The results were reviewed and she has left biphasic waveforms, left MARI of 1.2, and left toe brachial index is 0.72. The segmental thigh and leg pressures were not obtained. There is not a difference of over 30 mmHg when compared to arm pressures. She is also advised to discontinue all tobacco products to optimize healing and limb salvage opportunities. Due to ongoing lack of healing, a vascular referral was provided for Dr. Rdz. She relates she is scheduled for June 06. Edema: There is mild to moderate edema. To wear Tubigrip for compression management. Compliance was discussed and necessary. She had Doppler with reflux exam performed and followed up with vascular specialist. Venous intervention was recommended. She will work on understanding her transportation opportunities to get to [place]. Infection: She does not have kevin purulent drainage today or erythema, streaking, or odor. To monitor for this. Culture was previously updated for mrsa pcr, aerobic and anearobic. She has a noted h/o MRSA growth. I recommend considering IV antibiotics due to her continued MRSA infections. She is also under the management of infectious disease specialist and continues IV antibiotics and has a PICC line in place. She is currently on a 6-week course of linezolid and is about to complete this. Pain: Controlled Host factors: She has significant delays in healing. We discussed tobacco cessation and how this impairs healing. She has some muscle wasting and delayed healing and nutritional supplementation would also be beneficial. Labs: Updated labs were recently updated including CBC, CMP, ESR, C-reactive protein, and hemoglobin A1c. No leukocytosis was noted. ESR 24. CRP 23.5. No gross abnormalities with CMP. A1c of 5.5%. Imaging: Left leg xrays were recently updated - there is a healed fracture in the mid third of the left tibia but apparently there is periosteal reaction and what appears to be chronic osteomyelitis with possibility of sinus tract. I answered all the patient's questions. To return to the wound healing center in 1 week or call sooner if the patient has any questions or concerns. Note: [employer] speech recognition broom machine operator software was used to create portions of this document. Sound-alike and misspelled words, as well as other broom machine operator errors may be contained in the documentation.
[2021-06-20 08:14] VITALS: BP 144/67; PULSE 78; RESP 20; TEMP 36.6; BMI 20.5
--- NOTE | 2021-06-20 09:16 | PN.PCM_ITS ---
History of Present Illness Date of Service: 06/20/21 Chief Complaint: left leg ulcer History of Wound: This 60-year-old female was seen today for left leg ulcer. She denies fever, chill, nausea, vomiting, diarrhea. She tries to wear compression garment. She continues to smoke. She denies leg pain, redness, or odor. She denies trauma or recent increase in swelling. She went for consultation with vascular specialist, Dr. Rdz who recommended venous procedural intervention in [place].This is scheduled 08/01/21. The patient is concerned about transportation issues and forgot to call to try to get this set up with her insurance. Progress of Wound: improving Objective Data Objective Data Vital Signs: Vital Signs Temp Pulse Resp BP 98 F 78 20 H 144/67 H 06/20/21 08:14 06/20/21 08:14 06/20/21 08:14 06/20/21 08:14 Weight: 43.091 kg Body Mass Index (BMI) 20.5 Physical Exam Extremity Extremity Narrative: No calf tenderness Diminished pulses Muscle wasting noted Adjacent skin is atrophic and hairless. Prior skin grafting surgical intervention site noted with cicatrix Decreased leg edema. Reduced ulcer depth Skin Skin Narrative: no kevin purulence, no erythema, no streaking, no odor. mima ulcer hyperpigmentation and edema continued. There is no periulcer inflammation. Ulcer size reduction without deep probing today Neuro Neuro Narrative: lack of normal epicritic sensation via light touch is consistent with neuropathy status Debridement Note Debridement Note Wound debrided: left leg Wound Grade/Stage: Type of Debridement: Excisional debridement Anesthesia Used: 4% Lidocaine Solution Depth: in the subcutaneous layer Percentage of wound debrided: 100 Instrument Used: #15 blade Tissue Removed: fibrous, devitalized subcutaneous, biofilm, slough Severity: Fat Layer Exposed Amount of bleeding with debridement: Mild Bleeding Controlled with: Pressure Patient tolerated procedure: Patient tolerated procedure well Post-Debridement Measurements and Additional Note: Post-Debridement M easurements/Treatment WC - Nurse 1 - General Ulcer Assessment Start: 06/13/21 13:45 Freq: Status: Active Protocol: ELENA Activity Type Activity Date Activity User E-Sign Co-Sign Detail Recorded Client Recorded Date Recorded By Document 06/13/21 13:45 DL [id number] 06/13/21 13:55 DL Document 10/13/21 08:14 DL [id number] 06/20/21 08:20 DL 06/13/21 06/20/21 13:45 08:14 WC - Today's Visit Information Type of service Follow-up Visit Follow-up Visit (Physician/EXTRACTOR OPERATOR HELPER (Physician/EXTRACTOR OPERATOR HELPER ) ) Arrival Mode Ambulatory Ambulatory Transfer Assistance None None Patient Identification Verified (Name & Yes Yes ) Patient Requires Transmission-Based No No Precautions Height and Weight Body Mass Index (BMI) 20.5 20.5 BMI Classification Normal Normal Vital Signs Temperature (97.8 F-99.1 F) 97.7 F L 98 F Temperature Source Temporal Temporal Pulse Rate (60-100) 85 78 Pulse Location Monitor Monitor Respiratory Rate (12-18) 18 20 H Respiratory rate source Observation Observation Blood Pressure (90/60-120/80) 157/57 H 144/67 H Blood Pressure Mean (mm Hg) 90 92 Source Monitor Monitor History Since Last Visit- (Skip if this is Patient's initial visit) Have you changed medications since your No No last visit? Any new allergies or adverse reactions No No Had a fall/change in ADL's that may No No increase risk of falls Signs or symptoms of abuse and/or No No neglect since last visit Have you been in the hospital since your No No last visit? Has dressing in place as prescribed Yes Yes Has compression in place as prescribed N/A Yes Has offloadiing in place as prescribed N/A N/A Experienced any changes in pain level or No No management Pain Scale: 0-10 Numeric Is Patient Pain Free? Yes Yes - Nurse 1 - General Ulcer Measurement Start: 06/13/21 13:45 Freq: Status: Active Protocol: Activity Type Activity Date Activity User E-Sign Co-Sign Detail Recorded Client Recorded Date Recorded By Document 06/13/21 13:45 DL [id number] 06/13/21 13:55 DL Document 06/20/21 08:14 DL [id number] 06/20/21 08:20 DL 06/13/21 06/20/21 13:45 08:14 Wound Center Nurse 1 #2- L MED LE SUPERIOR -Current Size (cm) - Length 0 -Current Size (cm) - Width 0 -Current Size (cm) - Depth 0 -Total Square Cm 0 -Photo Taken Yes -Exudate Amt None Present -Wound Margin Flat & Intact -Granulation Amt Large (67-100%) -Granulation Quality [place] -Structure Exposed N/A -Texture (Mima-wound Skin Appearance) No Abnormality -Moisture (Mima-wound Skin Appearance) Dry/Scaly -Color (Mima-wound Skin Appearance) No Abnormality -Temperature (Mima-wound Skin No Abnormality Appearance) (Pt Warm) -Tenderness on Palpation (Miam-wound No Skin Appearance) -Ulcer Cleansing Rinsed/ Irrigated with Saline -Foul Odor after Cleansing No #1- L MEDIAL LE -Current Size (cm) - Length 0.3 0.2 -Current Size (cm) - Width 0.2 0.2 -Current Size (cm) - Depth 0.6 0.2 -Total Square Cm 0.06 0.04 -Photo Taken No No -Maximum Distance #2 (cm) 0.2 -Circular Undermining Yes -Exudate Amt None Present None Present -Wound Margin Flat & Intact Distinct, Outline Attached -Granulation Amt Small (1-33%) Small (1-33%) -Granulation Quality Red [place] -Necrosis Amt None Present (0 None Present (0 %) %) -Structure Exposed N/A N/A -Texture (Mima-wound Skin Appearance) Scarring Scarring -Moisture (Mima-wound Skin Appearance) No Abnormality No Abnormality -Color (Mima-wound Skin Appearance) No Abnormality, Hemosiderin Staining -Temperature (Mima-wound Skin No Abnormality No Abnormality Appearance) (Pt Warm) (Pt Warm) -Tenderness on Palpation (Mima-wound No No Skin Appearance) -Ulcer Cleansing Rinsed/ Wound Cleanser Irrigated with Saline -Foul Odor after Cleansing No No -Anesthetic Used 5% Lidocaine 5% Lidocaine Gel Gel Left Calf (cm) 31 28.5 Left Ankle (cm) 18.3 19 - Nurse 2 - General Ulcer CM Notes Start: 06/13/21 13:45 Freq: Status: Active Protocol: Activity Type Activity Date Activity User E-Sign Co-Sign Detail Recorded Client Recorded Date Recorded By Document 06/13/21 14:25 JF [id number] 06/13/21 14:27 JF Document 06/20/21 08:46 JF [id number] 06/20/21 08:48 JF 06/13/21 06/20/21 14:25 08:46 Wound Center Nurse 2 #2- L MED LE SUPERIOR -Correct Patient No -Correct Side, Site, Position No -Correct Procedure No -Procedure Performed No -Post Debridement (cm) - Length 0 -Post Debridement (cm) - Width 0 -Post Debridement (cm) - Depth 0 -Total Square (Post) (cm) 0 -Area of Debridement (cm) - Length 0 -Area of Debridement (cm) - Width 0 -Total Square (Area) (cm) 0 -Wound/Ulcer Outcome Healed- Epithelialized #1- L MEDIAL LE -Time 14:25 08:46 -Correct Patient Yes Yes -Correct Side, Site, Position Yes Yes -Correct Procedure Yes Yes -Procedure Performed Yes Yes -Type of Procedure Debridement Debridement -Clinical Debridement Subcutaneous Subcutaneous -Tissue Removed Subcutaneous Subcutaneous -Post Debridement (cm) - Length 0.3 0.4 -Post Debridement (cm) - Width 0.3 0.2 -Post Debridement (cm) - Depth 0.6 0.5 -Total Square (Post) (cm) 0.09 0.08 -Area of Debridement (cm) - Length 0.3 0.4 -Area of Debridement (cm) - Width 0.3 0.2 -Total Square (Area) (cm) 0.09 0.08 -Tunneling No No -Undermining/Tunneling No No -Circular Undermining No No -Wound/Ulcer Outcome Not Healed Not Healed -Ulcer Cleansing Rinsed/ Rinsed/ Irrigated with Irrigated with Saline Saline -Foul Odor after Cleansing No No -Bioengineered Tissue No No -Bleeding Controlled with Pressure Pressure -Offloading No -Treatment Response Procedure Procedure Tolerated Well Tolerated Well -Debridement - Subq, 1st 20sq cm Yes Yes Pain Scale: 0-10 Numeric Is Patient Pain Free? Yes Yes WC - Nurse 3 - General Ulcer D/C NN Start: 06/13/21 13:45 Freq: Status: Active Protocol: Activity Type Activity Date Activity User E-Sign Co-Sign Detail Recorded Client Recorded Date Recorded By Document 06/13/21 14:47 ML [id number] 06/13/21 14:47 ML Document 06/20/21 08:54 [facility] [id number] 06/20/21 08:55 BMF 06/13/21 06/20/21 14:47 08:54 Wound Care Nurse 3 #1- L MEDIAL LE -Ulcer Cleansing Rinsed/ Rinsed/ Irrigated with Irrigated with Saline Saline -Primary Dressing Applied Other -Other Dressing dry gauze wicked into wound; drsg per rb rn -Primary Dressing Covered/Secured with Dry Gauze, Dry Gauze & Secured with Roll Gauze, Tape Secured with Tape Left -Tubular Bandage Single Layer -Size of Tubigrip Used Size C -Size C ($) 1 -Other pts own single layer tubi and irving wraps applied Treatment Response Procedure Tolerated Well Pain Scale: 0-10 Numeric Is Patient Pain Free? Yes WC - Visit Discharge Discharge Condition Stable Ambulatory Status Ambulatory Transportation Private Auto Assessment/Plan Assessment/Plan (1) Delayed wound healing: CODE(S): T14.8XXD - Other injury of unspecified body region, subsequent encounter (2) Ulcer of left lower extremity with fat layer exposed: CODE(S): L97.922 - Non-pressure chronic ulcer of unspecified part of left lower leg with fat layer exposed (3) Osteomyelitis: CODE(S): M86.9 - Osteomyelitis, unspecified PLAN: I reviewed and discussed her case today. Debridement was performed today as noted in the clinical panel to the ulcer site. The following work up and care recommendations were made: Dressing: To continue sterile gauze packing or dakin use taking care to pack this wound that has tunneling and I recommend Aquacel Ag to the more proximal smaller superficial ulcer site. Wash: Antibacterial soap and water. Avoid soaking. To avoid bathtub bathing where her leg including her wound are submerged. I recommend she uses traditional antibacterial soap and water such as this and washes this with a wet washcloth including the adjacent foot and leg. Tissue growth optimization: If she does have a documented history of osteomyelitis that is chronic she may be a candidate for hyperbaric oxygen therapy. 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 Offload: To avoid direct pressure on the site. Vascular: She has nonpalpable pulses and lack of hair. She also has questionable claudication presentation. I recommend noninvasive vascular studies including MARI, segmental thigh and leg pressure, PVR, and systolic toe pressure. The results were reviewed and she has left biphasic waveforms, left MARI of 1.2, and left toe brachial index is 0.72. The segmental thigh and leg pressures were not obtained. There is not a difference of over 30 mmHg when compared to arm pressures. She is also advised to discontinue all tobacco products to optimize healing and limb salvage opportunities. Due to ongoing lack of healing, a vascular referral was provided for Dr. Rdz. She relates she is scheduled for intervention 08/01/21. Edema: There is mild to moderate edema. To wear Tubigrip for compression management. Compliance was discussed and necessary. She had Doppler with reflux exam performed and followed up with vascular specialist. Venous intervention was recommended. She will work on understanding her transportation opportunities to get to [place]. Infection: She does not have kevin purulent drainage today or erythema, streaking, or odor. To monitor for this. Culture was previously updated for mrsa pcr, aerobic and anearobic. She has a noted h/o MRSA growth. I recommend considering IV antibiotics due to her continued MRSA infections. She is also under the management of infectious disease specialist and continues IV antibiotics and has a PICC line in place. She is currently on a 6-week course o f linezolid and is about to complete this. Pain: Controlled Host factors: She has significant delays in healing. We discussed tobacco cessation and how this impairs healing. She has some muscle wasting and delayed healing and nutritional supplementation would also be beneficial. Labs: Updated labs were recently updated including CBC, CMP, ESR, C-reactive protein, and hemoglobin A1c. No leukocytosis was noted. ESR 24. CRP 23.5. No gross abnormalities with CMP. A1c of 5.5%. Imaging: Left leg xrays were recently updated - there is a healed fracture in the mid third of the left tibia but apparently there is periosteal reaction and what appears to be chronic osteomyelitis with possibility of sinus tract. I answered all the patient's questions. To return to the wound healing center in 1 week or call sooner if the patient has any questions or concerns. Note: [employer] speech recognition powertrain design engineer software was used to create portions of this document. Sound-alike and misspelled words, as well as other powertrain design engineer errors may be contained in the documentation.
[2021-07-04 08:18] VITALS: BP 124/63; PULSE 99; RESP 16; TEMP 36.4; BMI 20.5
--- NOTE | 2021-07-04 09:34 | PCM.WC.PN ---
History of Present Illness Date of Service: 07/04/21 Chief Complaint: left leg ulcer History of Wound: This 60-year-old female was seen today for left leg ulcer. She denies fever, chill, nausea, vomiting, diarrhea. She tries to wear compression garment. She continues to smoke. She denies leg pain, redness, or odor. She denies trauma or recent increase in swelling. She went for consultation with vascular specialist, Dr. Rdz who recommended venous procedural intervention in [place].This is scheduled 08/01/21. She is still working on transportation help. Progress of Wound: improving Objective Data Objective Data Vital Signs: Vital Signs Temp Pulse Resp BP 97.6 F L 99 16 124/63 H 07/04/21 08:18 07/04/21 08:18 07/04/21 08:18 07/04/21 08:18 Oxygen Delivery Method Room Air Weight: 43.091 kg Body Mass Index (BMI) 20.5 Physical Exam Extremity Extremity Narrative: No calf tenderness Diminished pulses Muscle wasting noted Adjacent skin is atrophic and hairless. Prior skin grafting surgical intervention site noted with cicatrix Decreased leg edema. Reduced ulcer depth Skin Skin Narrative: no kevin purulence, no erythema, no streaking, no odor. mima ulcer hyperpigmentation and edema continued. There is no periulcer inflammation. Neuro Neuro Narrative: lack of normal epicritic sensation via light touch is consistent with neuropathy status Debridement Note Debridement Note Wound debrided: left leg Wound Grade/Stage: Type of Debridement: Excisional debridement Anesthesia Used: 4% Lidocaine Solution Depth: in the subcutaneous layer Percentage of wound debrided: 100 Instrument Used: #15 blade Tissue Removed: fibrous, devitalized subcutaneous, biofilm, slough Severity: Fat Layer Exposed Amount of bleeding with debridement: Mild Bleeding Controlled with: Pressure Patient tolerated procedure: Patient tolerated procedure well Post-Debridement Measurements and Additional Note: Post-Debridement Measurements/Treatment YVETTE - Nurse 1 - General Ulcer Assessment Start: 06/13/21 13:45 Freq: Status: Active Protocol: ELENA Activity Type Activity Date Activity User E-Sign Co-Sign Detail Recorded Client Recorded Date Recorded By Document 06/13/21 13:45 DL [id number] 06/13/21 13:55 DL Document 06/20/21 08:14 DL [id number] 06/20/21 08:20 DL Document 07/04/21 08:18 BMF [id number] 07/04/21 08:23 BMF 06/13/21 06/20/21 07/04/21 13:45 08:14 08:18 - Today's Visit Information Type of service Follow-up Visit Follow-up Visit Follow-up Visit (Physician/ROLLED HAM LACER (Physician/ROLLED HAM LACER (Physician/ROLLED HAM LACER ) ) ) Arrival Mode Ambulatory Ambulatory Ambulatory Transfer Assistance None None None Patient Identification Verified (Name & Yes Yes Yes ) Patient Requires Transmission-Based No No No Precautions Height and Weight Body Mass Index (BMI) 20.5 20.5 20.5 BMI Classification Normal Normal Normal Vital Signs Temperature (97.8 F-99.1 F) 97.7 F L 98 F 97.6 F L Temperature Source Temporal Temporal Temporal Pulse Rate (60-100) 85 78 99 Pulse Location Monitor Monitor Monitor Respiratory Rate (12-18) 18 20 H 16 Respiratory rate source Observation Observation Observation Oxygen Delivery Method Room Air Blood Pressure (90/60-120/80) 157/57 H 144/67 H 124/63 H Blood Pressure Mean (mm Hg) 90 92 83 Source Monitor Monitor Monitor Position Sitting Blood Pressure Location Left Arm History Since Last Visit- (Skip if this is Patient's initial visit) Have you changed medications since your No No No last visit? Any new allergies or adverse reactions No No No Had a fall/change in ADL's that may No No No increase risk of falls Signs or symptoms of abuse and/or No No No neglect since last visit Have you been in the hospital since your No No No last visit? Has dressing in place as prescribed Yes Yes Yes Has compression in place as prescribed N/A Yes Yes Has offloadiing in place as prescribed N/A N/A N/A Experienced any changes in pain level or No No No management Left Footwear Regular Shoe Right Footwear Regular Shoe Pain Scale: 0-10 Numeric Is Patient Pain Free? Yes Yes Yes - Nurse 1 - General Ulcer Measurement Start: 06/13/21 13:45 Freq: Status: Active Protocol: Activity Type Activity Date Activity User E-Sign Co-Sign Detail Recorded Client Recorded Date Recorded By Document 06/13/21 13:45 DL [id number] 06/13/21 13:55 DL Document 06/20/21 08:14 DL [id number] 06/20/21 08:20 DL Document 07/04/21 08:18 [facility] [id number] 07/04/21 08:23 BM 06/13/21 06/20/21 07/04/21 13:45 08:14 08:18 Wound Center Nurse 1 #2- L MED LE SUPERIOR -Current Size (cm) - Length 0 -Current Size (cm) - Width 0 -Current Size (cm) - Depth 0 -Total Square Cm 0 -Photo Taken Yes -Exudate Amt None Present -Wound Margin Flat & Intact -Granulation Amt Large (67-100%) -Granulation Quality [place] -Structure Exposed N/A -Texture (Mima-wound Skin Appearance) No Abnormality -Moisture (Mima-wound Skin Appearance) Dry/Scaly -Color (Mima-wound Skin Appearance) No Abnormality -Temperature (Mima-wound Skin No Abnormality Appearance) (Pt Warm) -Tenderness on Palpation (Mima-wound No Skin Appearance) -Ulcer Cleansing Rinsed/ Irrigated with Saline -Foul Odor after Cleansing No #1- L MEDIAL LE -Combined with other wound No -Current Size (cm) - Length 0.3 0.2 0.6 -Current Size (cm) - Width 0.2 0.2 0.4 -Current Size (cm) - Depth 0.6 0.2 0.5 -Total Square Cm 0.06 0.04 0.24 -Photo Taken No No No -Epithelialization None Present -Tunneling No -Undermining/Tunneling No -Maximum Distance #2 (cm) 0.2 -Circular Undermining Yes No -Exudate Amt None Present None Present Medium -Exudate Type Serosanguineous -Wound Margin Flat & Intact Distinct, Distinct, Outline Outline Attached Attached -Granulation Amt Small (1-33%) Small (1-33%) Medium (34-66%) -Granulation Quality Red [place] Red -Slough/Fibrin Yes -Necrosis Amt None Present (0 None Present (0 Medium (34-66%) %) %) -Necrotic Tissue Type Adherent Slough -Structure Exposed N/A N/A -Texture (Mima-wound Skin Appearance) Scarring Scarring Assessed, Fluctuance -Moisture (Mima-wound Skin Appearance) No Abnormality No Abnormality Assessed,Dry/ Scaly -Color (Mima-wound Skin Appearance) No Abnormality, Assessed Hemosiderin Staining -Temperature (Mima-wound Skin No Abnormality No Abnormality No Abnormality Appearance) (Pt Warm) (Pt Warm) (Pt Warm) -Tenderness on Palpation (Mima-wound No No No Skin Appearance) -Ulcer Cleansing Rinsed/ Wound Cleanser Rinsed/ Irrigated with Irrigated with Saline Saline -Foul Odor after Cleansing No No No -Anesthetic Used 5% Lidocaine 5% Lidocaine 5% Lidocaine Gel Gel Gel Left Calf (cm) 31 28.5 30 Left Ankle (cm) 18.3 19 18.7 WC - Nurse 2 - General Ulcer CM Notes Start: 06/13/21 13:45 Freq: Status: Active Protocol: Activity Type Activity Date Activity User E-Sign Co-Sign Detail Recorded Client Recorded Date Recorded By Document 06/13/21 14:25 [id number] 06/13/21 14:27 Document 06/20/21 08:46 [id number] 06/20/21 08:48 Document 07/04/21 08:56 [id number] 07/04/21 08:59 06/13/21 06/20/21 07/04/21 14:25 08:46 08:56 Wound Center Nurse 2 #2- L MED LE SUPERIOR -Correct Patient No -Correct Side, Site, Position No -Correct Procedure No -Procedure Performed No -Post Debridement (cm) - Length 0 -Post Debridement (cm) - Width 0 -Post Debridement (cm) - Depth 0 -Total Square (Post) (cm) 0 -Area of Debridement (cm) - Length 0 -Area of Debridement (cm) - Width 0 -Total Square (Area) (cm) 0 -Wound/Ulcer Outcome Healed- Epithelialized #1- L MEDIAL LE -Time 14:25 08:46 08:58 -Correct Patient Yes Yes Yes -Correct Side, Site, Position Yes Yes Yes -Correct Procedure Yes Yes Yes -Procedure Performed Yes Yes Yes -Type of Procedure Debridement Debridement Debridement -Clinical Debridement Subcutaneous Subcutaneous Subcutaneous -Tissue Removed Subcutaneous Subcutaneous Subcutaneous -Post Debridement (cm) - Length 0.3 0.4 0.6 -Post Debridement (cm) - Width 0.3 0.2 0.4 -Post Debridement (cm) - Depth 0.6 0.5 0.5 -Total Square (Post) (cm) 0.09 0.08 0.24 -Area of Debridement (cm) - Length 0.3 0.4 0.6 -Area of Debridement (cm) - Width 0.3 0.2 0.4 -Total Square (Area) (cm) 0.09 0.08 0.24 -Tunneling No No No -Undermining/Tunneling No No No -Circular Undermining No No No -Wound/Ulcer Outcome Not Healed Not Healed Not Healed -Ulcer Cleansing Rinsed/ Rinsed/ Rinsed/ Irrigated with Irrigated with Irrigated with Saline Saline Saline -Foul Odor after Cleansing No No No -Bioengineered Tissue No No No -Bleeding Controlled with Pressure Pressure Pressure -Offloading No No -Treatment Response Procedure Procedure Procedure Tolerated Well Tolerated Well Tolerated Well -Debridement - Subq, 1st 20sq cm Yes Yes Yes Pain Scale: 0-10 Numeric Is Patient Pain Free? Yes Yes Yes - Nurse 3 - General Ulcer D/C NN Start: 06/13/21 13:45 Freq: Status: Active Protocol: Activity Type Activity Date Activity User E-Sign Co-Sign Detail Recorded Client Recorded Date Recorded By Document 06/13/21 14:47 ML [id number] 06/13/21 14:47 ML Document 06/20/21 08:54 [facility] [id number] 06/20/21 08:55 BMF Document 07/04/21 09:09 DL [id number] 07/04/21 09:10 DL 06/13/21 06/20/21 07/04/21 14:47 08:54 09:09 Wound Care Nurse 3 #1- L MEDIAL LE -Ulcer Cleansing Rinsed/ Rinsed/ Rinsed/ Irrigated with Irrigated with Irrigated with Saline Saline Saline -Foul Odor after Cleansing No -Primary Dressing Applied Other -Other Dressing dry gauze Gauze packing wicked into wound; drsg per rb rn -Primary Dressing Covered/Secured with Dry Gauze, Dry Gauze & Dry Gauze & Secured with Roll Gauze, Roll Gauze, Tape Secured with Secured with Tape Tape Left -Tubular Bandage Single Layer -Size of Tubigrip Used Size C -Size C ($) 1 -Other pts own single layer tubi and irving wraps applied Treatment Response Procedure Procedure Tolerated Well Tolerated Well Pain Scale: 0-10 Numeric Is Patient Pain Free? Yes Yes WC - Visit Discharge Discharge Condition Stable Stable Ambulatory Status Ambulatory Ambulatory Transportation Private Auto Private Auto Assessment/Plan Assessment/Plan (1) Delayed wound healing: CODE(S): T14.8XXD - Other injury of unspecified body region, subsequent encounter (2) Ulcer of left lower extremity with fat layer exposed: CODE(S): L97.922 - Non-pressure chronic ulcer of unspecified part of left lower leg with fat layer exposed (3) Osteomyelitis: CODE(S): M86.9 - Osteomyelitis, unspecified PLAN: I reviewed and discussed her case today. Debridement was performed today as noted in the clinical panel to the ulcer site. The following work up and care recommendations were made: Dressing: To continue sterile gauze packing or dakin use taking care to pack this wound that has intermittent tunneling daily. Wash: Antibacterial soap and water. Avoid soaking. To avoid bathtub bathing where her leg including her wound are submerged. I recommend she uses traditional antibacterial soap and water. Tissue growth optimization: If she does have a documented history of osteomyelitis that is chronic she may be a candidate for hyperbaric oxygen therapy. 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 Offload: To avoid direct pressure on the site. Vascular: She has nonpalpable pulses and lack of hair. She also has questionable claudication presentation. I recommend noninvasive vascular studies including MARI, segmental thigh and leg pressure, PVR, and systolic toe pressure. The results were reviewed and she has left biphasic waveforms, left MARI of 1.2, and left toe brachial index is 0.72. The segmental thigh and leg pressures were not obtained. There is not a difference of over 30 mmHg when compared to arm pressures. She is also advised to discontinue all tobacco products to optimize healing and limb salvage opportunities. Due to ongoing lack of healing, a vascular referral was provided for Dr. Rdz. She relates she is scheduled for intervention 08/01/21. Edema: There is mild to moderate edema. To wear Tubigrip for compression management. Compliance was discussed and necessary. She had Doppler with reflux exam performed and followed up with vascular specialist. Venous intervention was recommended. She will work on understanding her transportation opportunities to get to [place]. Infection: She does not have kevin purulent drainage today or erythema, streaking, or odor. To monitor for this. Culture was previously updated for mrsa pcr, aerobic and anearobic. She has a noted h/o MRSA growth. I recommend considering IV antibiotics due to her continued MRSA infections. She is also under the management of infectious disease specialist and continues IV antibiotics and has a PICC line in place. She is currently on a 6-week course of linezolid and is about to complete this. Pain: Controlled Host factors: She has significant delays in healing. We discussed tobacco cessation and how this impairs healing. She has some muscle wasting and delayed healing and nutritional supplementation would also be beneficial. Labs: Updated labs were recently updated including CBC, CMP, ESR, C-reactive protein, and hemoglobin A1c. No leukocytosis was noted. ESR 24. CRP 23.5. No gross abnormalities with CMP. A1c of 5.5%. Imaging: Left leg xrays were recently updated - there is a healed fracture in the mid third of the left tibia but apparently there is periosteal reaction and what appears to be chronic osteomyelitis with possibility of sinus tract. I answered all the patient's questions. To return to the wound healing center in 1 week or call sooner if the patient has any questions or concerns. Note: [employer] speech recognition sustainability communicator software was used to create portions of this document. Sound-alike and misspelled words, as well as other sustainability communicator errors may be contained in the documentation.
== END 2021-07-08 23:59 ==
LOC: WC 08:30
PROVIDERS: Referring Provider Podiatrist; Visit Provider Podiatrist
DX: L97.922 Non-pressure chronic ulcer of unspecified part of left lower leg with fat layer exposed (principal); T14.8XXD Other injury of unspecified body region, subsequent encounter; M86.9 Osteomyelitis, unspecified; M62.50 Muscle wasting and atrophy, not elsewhere classified, unspecified site; Z86.14 Personal history of Methicillin resistant Staphylococcus aureus infection; K21.9 Gastro-esophageal reflux disease without esophagitis
CPT/HCPCS: 11042

== ENCOUNTER 2021-07-25 09:30 | Outpatient (RCR) | payer MEDICAID, SELFPAY ==
[2021-07-09 00:22] VITALS: BP 124/63; PULSE 99; RESP 16; TEMP 36.4; BMI 20.5
[2021-07-25 09:17] VITALS: BP 142/68; RESP 18; TEMP 36.1; BMI 20.5
--- NOTE | 2021-07-25 12:06 | PCM.WC.PN ---
History of Present Illness Date of Service: 07/25/21 Chief Complaint: left leg ulcer History of Wound: This 60-year-old female was seen today for left leg ulcer. She denies fever, chill, nausea, vomiting, diarrhea. She tries to wear compression garment. She continues to smoke. She denies leg pain, redness, or odor. She denies trauma or recent increase in swelling. She went for consultation with vascular specialist, Dr. Rdz who recommended venous procedural intervention in [place].This is scheduled 08/01/21. She plans to undergo several procedures. Progress of Wound: Stable Objective Data Objective Data Vital Signs: Vital Signs Temp Pulse Resp BP 97 F L 99 18 142/68 H 07/25/21 09:17 07/09/21 00:22 07/25/21 09:17 07/25/21 09:17 Oxygen Delivery Method Room Air Weight: 43.091 kg Body Mass Index (BMI) 20.5 Physical Exam Extremity Extremity Narrative: No calf tenderness Diminished pulses Muscle wasting noted Adjacent skin is atrophic and hairless Prior skin grafting surgical intervention site noted with cicatrix Decreased leg edema. Reduced ulcer depth Skin Skin Narrative: no kevin purulence, no erythema, no streaking, no odor. mima ulcer hyperpigmentation and edema continued. There is no periulcer inflammation. Neuro Neuro Narrative: lack of normal epicritic sensation via light touch is consistent with neuropathy status Debridement Note Debridement Note Wound debrided: left leg Wound Grade/Stage: Type of Debridement: Excisional debridement Anesthesia Used: 4% Lidocaine Solution Depth: in the subcutaneous layer Percentage of wound debrided: 100 Instrument Used: - (1 mm curette) Tissue Removed: fibrous, devitalized subcutaneous, biofilm, slough Severity: Fat Layer Exposed Amount of bleeding with debridement: Mild Bleeding Controlled with: Pressure Patient tolerated procedure: Patient tolerated procedure well Post-Debridement Measurements and Additional Note: Post-Debridement Measurements/Treatment YVETTE - Nurse 1 - General Ulcer Assessment Start: 07/25/21 09:16 Freq: Status: Active Protocol: ELENA Activity Type Activity Date Activity User E-Sign Co-Sign Detail Recorded Client Recorded Date Recorded By Document 07/25/21 09:17 AL [id number] 07/25/21 09:23 AL 07/25/21 09:17 - Today's Visit Information Type of service Initial Visit Arrival Mode Ambulatory Accompanied by self Patient Identification Verified (Name & Yes ) Height and Weight Body Mass Index (BMI) 20.5 BMI Classification Normal Vital Signs Temperature (97.8 F-99.1 F) 97 F L Temperature Source Temporal Pulse Location Monitor Respiratory Rate (12-18) 18 Respiratory rate source Observation Oxygen Delivery Method Room Air Blood Pressure (90/60-120/80) 142/68 H Blood Pressure Mean (mm Hg) 92 Source Monitor Position Semi-Fowlers Blood Pressure Location Left Arm History Since Last Visit- (Skip if this is Patient's initial visit) Have you changed medications since your No last visit? Any new allergies or adverse reactions No Had a fall/change in ADL's that may No increase risk of falls Signs or symptoms of abuse and/or No neglect since last visit Have you been in the hospital since your No last visit? Has dressing in place as prescribed Yes Has compression in place as prescribed Yes Has offloadiing in place as prescribed Yes Experienced any changes in pain level or Yes management Left Footwear Regular Shoe Right Footwear Regular Shoe Pain Scale: 0-10 Numeric Is Patient Pain Free? Yes WC - Nurse 1 - General Ulcer Measurement Start: 07/25/21 09:16 Freq: Status: Active Protocol: Activity Type Activity Date Activity User E-Sign Co-Sign Detail Recorded Client Recorded Date Recorded By Document 07/25/21 09:17 AL [id number] 07/25/21 09:23 AL 07/25/21 09:17 Wound Center Nurse 1 #1- L MEDIAL LE -Current Size (cm) - Length 2.3 -Current Size (cm) - Width 0.4 -Current Size (cm) - Depth 0.2 -Total Square Cm 0.92 -Exudate Amt Small -Exudate Type Serosanguineous -Wound Margin Flat & Intact -Granulation Amt Small (1-33%) -Granulation Quality Pale,[place] -Necrosis Amt Large (67-100%) -Necrotic Tissue Type Adherent Slough -Texture (Mima-wound Skin Appearance) Assessed -Moisture (Mima-wound Skin Appearance) Assessed -Color (Mima-wound Skin Appearance) Assessed -Temperature (Mima-wound Skin No Abnormality Appearance) (Pt Warm) -Tenderness on Palpation (Mima-wound No Skin Appearance) -Ulcer Cleansing Rinsed/ Irrigated with Saline -Foul Odor after Cleansing No -Anesthetic Used 4% Lidocaine Solution Left Calf (cm) 30 Left Ankle (cm) 18.7 WC - Nurse 2 - General Ulcer CM Notes Start: 07/25/21 09:16 Freq: Status: Active Protocol: Activity Type Activity Date Activity User E-Sign Co-Sign Detail Recorded Client Recorded Date Recorded By Document 07/25/21 09:49 [id number] 07/25/21 09:51 07/25/21 09:49 Wound Center Nurse 2 #1- L MEDIAL LE -Time 09:49 -Correct Patient Yes -Correct Side, Site, Position Yes -Correct Procedure Yes -Procedure Performed Yes -Type of Procedure Debridement -Clinical Debridement Subcutaneous -Tissue Removed Subcutaneous -Post Debridement (cm) - Length 2.3 -Post Debridement (cm) - Width 0.3 -Post Debridement (cm) - Depth 0.6 -Total Square (Post) (cm) 0.69 -Area of Debridement (cm) - Length 2.3 -Area of Debridement (cm) - Width 0.3 -Total Square (Area) (cm) 0.69 -Tunneling No -Undermining/Tunneling No -Circular Undermining No -Wound/Ulcer Outcome Not Healed -Ulcer Cleansing Rinsed/ Irrigated with Saline -Foul Odor after Cleansing No -Bioengineered Tissue No -Bleeding Controlled with Pressure -Offloading No -Treatment Response Procedure Tolerated Well -Debridement - Subq, 1st 20sq cm Yes Pain Scale: 0-10 Numeric Is Patient Pain Free? Yes - Nurse 3 - General Ulcer D/C NN Start: 07/25/21 09:16 Freq: Status: Active Protocol: Activity Type Activity Date Activity User E-Sign Co-Sign Detail Recorded Client Recorded Date Recorded By Document 07/25/21 09:57 AL [id number] 07/25/21 09:57 AL 07/25/21 09:57 Wound Care Nurse 3 #1- L MEDIAL LE -Primary Dressing Covered/Secured with Dry Gauze,Dry Gauze & Roll Gauze,Secured with Tape Left -Compression Wrap Ino Wrap Assessment/Plan Assessment/Plan (1) Delayed wound healing: CODE(S): T14.8XXD - Other injury of unspecified body region, subsequent encounter (2) Ulcer of left lower extremity with fat layer exposed: CODE(S): L97.922 - Non-pressure chronic ulcer of unspecified part of left lower leg with fat layer exposed (3) Osteomyelitis: CODE(S): M86.9 - Osteomyelitis, unspecified (4) Venous insufficiency (chronic) (peripheral): CODE(S): I87.2 - Venous insufficiency (chronic) (peripheral) PLAN: I reviewed and discussed her case today. Debridement was performed today as noted in the clinical panel to the ulcer site. The following work up and care recommendations were made: Dressing: To continue sterile gauze packing or dakin use taking care to pack this wound that has intermittent tunneling daily. Wash: Antibacterial soap and water. Avoid soaking. To avoid bathtub bathing where her leg including her wound are submerged. I recommend she uses traditional antibacterial soap and water. Tissue growth optimization: If she does have a documented history of osteomyelitis that is chronic she may be a candidate for hyperbaric oxygen therapy. 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 Offload: To avoid direct pressure on the site. Vascular: She has nonpalpable pulses and lack of hair. She also has questionable claudication presentation. I recommend noninvasive vascular studies including MARI, segmental thigh and leg pressure, PVR, and systolic toe pressure. The results were reviewed and she has left biphasic waveforms, left MARI of 1.2, and left toe brachial index is 0.72. The segmental thigh and leg pressures were not obtained. There is not a difference of over 30 mmHg when compared to arm pressures. She is also advised to discontinue all tobacco products to optimize healing and limb salvage opportunities. Due to ongoing lack of healing, a vascular referral was provided for Dr. Rdz. She relates she is scheduled for intervention 08/01/21. Edema: There is mild to moderate edema. To wear Tubigrip for compression management. Compliance was discussed and necessary. She had Doppler with reflux exam performed and followed up with vascular specialist. Venous intervention was recommended. She will work on understanding her transportation opportunities to get to [place]. Infection: She does not have kevin purulent drainage today or erythema, streaking, or odor. To monitor for this. Culture was previously updated for mrsa pcr, aerobic and anearobic. She has a noted h/o MRSA growth. I recommend considering IV antibiotics due to her continued MRSA infections. She is also under the management of infectious disease specialist and continues IV antibiotics and has a PICC line in place. She is currently on a 6-week course of linezolid and is about to complete this. Pain: Controlled Host factors: She has significant delays in healing. We discussed tobacco cessation and how this impairs healing. She has some muscle wasting and delayed healing and nutritional supplementation would also be beneficial. Labs: Updated labs were recently updated including CBC, CMP, ESR, C-reactive protein, and hemoglobin A1c. No leukocytosis was noted. ESR 24. CRP 23.5. No gross abnormalities with CMP. A1c of 5.5%. Imaging: Left leg xrays were recently updated - there is a healed fracture in the mid third of the left tibia but apparently there is periosteal reaction and what appears to be chronic osteomyelitis with possibility of sinus tract. I answered all the patient's questions. To return to the wound healing center in 1 week or call sooner if the patient has any questions or concerns. Note: [employer] speech recognition product management consultant software was used to create portions of this document. Sound-alike and misspelled words, as well as other product management consultant errors may be contained in the documentation.
== END 2021-08-07 23:59 ==
LOC: WC 09:30
PROVIDERS: Referring Provider Podiatrist; Visit Provider Podiatrist
DX: T14.8XXD Other injury of unspecified body region, subsequent encounter (principal); M86.9 Osteomyelitis, unspecified; I87.2 Venous insufficiency (chronic) (peripheral); L97.922 Non-pressure chronic ulcer of unspecified part of left lower leg with fat layer exposed; Z86.14 Personal history of Methicillin resistant Staphylococcus aureus infection
CPT/HCPCS: 11042

== ENCOUNTER 2021-09-05 09:30 | Outpatient (RCR) | payer MEDICAID, SELFPAY ==
[2021-08-08 00:27] VITALS: BP 142/68; PULSE 99; RESP 18; TEMP 36.1; BMI 20.5
[2021-08-08 09:30] VITALS: BP 153/68; PULSE 80; RESP 20; TEMP 35.9; BMI 20.5
--- NOTE | 2021-08-08 10:21 | PN.PCM_ITS ---
History of Present Illness Date of Service: 08/08/21 Chief Complaint: left leg ulcer History of Wound: This 60-year-old female was seen today for left leg ulcer. She denies fever, chill, nausea, vomiting, diarrhea. She tries to wear compression garment. She continues to smoke. She denies leg pain, redness, or odor. She denies trauma or recent increase in swelling. She went for consultation with vascular specialist, Dr. Rdz who recommended venous procedural intervention in [place].This was scheduled and she missed the appointment on 08/01/21 due to tinnitus. She relates she is rescheduled for 08-27-21. She plans to undergo several procedures. Progress of Wound: Stable Objective Data Objective Data Vital Signs: Vital Signs Temp Pulse Resp BP 96.7 F L 80 20 H 153/68 H 08/08/21 09:30 08/08/21 09:30 08/08/21 09:30 08/08/21 09:30 Weight: 43.091 kg Body Mass Index (BMI) 20.5 Physical Exam Extremity Extremity Narrative: No calf tenderness Diminished pulses Muscle wasting noted Adjacent skin is atrophic and hairless Prior skin grafting surgical intervention site noted with cicatrix Decreased leg edema. Reduced ulcer depth Skin Skin Narrative: no kevin purulence, no erythema, no streaking, no odor. mima ulcer hyperpigmentation and edema continued. There is no periulcer inflammation. Neuro Neuro Narrative: lack of normal epicritic sensation via light touch is consisten t with neuropathy status Debridement Note Debridement Note Wound debrided: left leg Wound Grade/Stage: Type of Debridement: Excisional debridement Anesthesia Used: 4% Lidocaine Solution Depth: in the subcutaneous layer Percentage of wound debrided: 100 Instrument Used: #15 blade Tissue Removed: fibrous, devitalized subcutaneous, biofilm, slough Severity: Fat Layer Exposed Amount of bleeding with debridement: Mild Bleeding Controlled with: Pressure Patient tolerated procedure: Patient tolerated procedure well Post-Debridement Measurements and Additional Note: Post-Debridement Measurements/Treatment - Nurse 1 - General Ulcer Assessment Start: 08/08/21 09:30 Freq: Status: Active Protocol: ELENA Activity Type Activity Date Activity User E-Sign Co-Sign Detail Recorded Client Recorded Date Recorded By Document 08/08/21 09:30 ELIZABETH [id number] 08/08/21 09:35 DL 08/08/21 09:30 WC - Today's Visit Information Type of service Follow-up Visit (Physician/SENIOR SOFTWARE PROJECT MANAGER ) Arrival Mode Ambulatory Transfer Assistance None Patient Identification Verified (Name & Yes ) Patient Requires Transmission-Based No Precautions Height and Weight Body Mass Index (BMI) 20.5 BMI Classification Normal Vital Signs Temperature (97.8 F-99.1 F) 96.7 F L Temperature Source Temporal Pulse Rate (60-100) 80 Pulse Location Monitor Respiratory Rate (12-18) 20 H Respiratory rate source Observation Blood Pressure (90/60-120/80) 153/68 H Blood Pressure Mean (mm Hg) 96 Source Monitor History Since Last Visit- (Skip if this is Patient's initial visit) Have you changed medications since your No last visit? Any new allergies or adverse reactions No Had a fall/change in ADL's that may No increase risk of falls Signs or symptoms of abuse and/or No neglect since last visit Have you been in the hospital since your No last visit? Has dressing in place as prescribed Yes Has compression in place as prescribed N/A Has offloadiing in place as prescribed N/A Experienced any changes in pain level or No management Left Footwear Regular Shoe Right Footwear Regular Shoe Pain Scale: 0-10 Numeric Is Patient Pain Free? No - Nurse 1 - General Ulcer Measurement Start: 08/08/21 09:30 Freq: Status: Active Protocol: Activity Type Activity Date Activity User E-Sign Co-Sign Detail Recorded Client Recorded Date Recorded By Document 08/08/21 09:30 DL [id number] 08/08/21 09:35 DL 08/08/21 09:30 Wound Center Nurse 1 #1- L MEDIAL LE -Current Size (cm) - Length 0.6 -Current Size (cm) - Width 0.4 -Current Size (cm) - Depth 0.7 -Total Square Cm 0.24 -Photo Taken No -Exudate Amt Small -Exudate Type Purulent -Wound Margin Distinct, Outline Attached -Granulation Amt Small (1-33%) -Granulation Quality Red -Necrosis Amt Small (1-33%) -Necrotic Tissue Type Adherent Slough -Structure Exposed N/A -Texture (Mima-wound Skin Appearance) Scarring -Moisture (Mima-wound Skin Appearance) Dry/Scaly -Color (Mmia-wound Skin Appearance) No Abnormality -Temperature (Mima-wound Skin No Abnormality Appearance) (Pt Warm) -Tenderness on Palpation (Mima-wound No Skin Appearance) -Ulcer Cleansing Soap and Water -Foul Odor after Cleansing No -Anesthetic Used 4% Lidocaine Solution YVETTE - Nurse 2 - General Ulcer CM Notes Start: 08/08/21 09:30 Freq: Status: Active Protocol: Activity Type Activity Date Activity User E-Sign Co-Sign Detail Recorded Client Recorded Date Recorded By Document 08/08/21 09:52 [id number] 08/08/21 09:56 08/08/21 09:52 Wound Center Nurse 2 -Time 09:53 -Correct Patient Yes -Correct Side, Site, Position Yes -Correct Procedure Yes -Procedure Performed Yes -Type of Procedure Debridement -Clinical Debridement Subcutaneous -Tissue Removed Subcutaneous -Post Debridement (cm) - Length 0.7 -Post Debridement (cm) - Width 0.4 -Post Debridement (cm) - Depth 1.0 -Total Square (Post) (cm) 0.28 -Area of Debridement (cm) - Length 0.7 -Area of Debridement (cm) - Width 0.4 -Total Square (Area) (cm) 0.28 -Tunneling No -Undermining/Tunneling No -Circular Undermining No -Wound/Ulcer Outcome Not Healed -Ulcer Cleansing Rinsed/ Irrigated with Saline -Foul Odor after Cleansing No -Bioengineered Tissue No -Bleeding Controlled with Pressure -Offloading No -Treatment Response Procedure Tolerated Well -Debridement - Subq, 1st 20sq cm Yes Pain Scale: 0-10 Numeric Is Patient Pain Free? Yes YVETTE - Nurse 3 - General Ulcer D/C NN Start: 08/08/21 09:30 Freq: Status: Active Protocol: Activity Type Activity Date Activity User E-Sign Co-Sign Detail Recorded Client Recorded Date Recorded By Document 08/08/21 10:04 [facility] [id number] 08/08/21 10:05 [facility] 08/08/21 10:04 Wound Care Nurse 3 #1- L MEDIAL LE -Ulcer Cleansing Soap and Water -Foul Odor after Cleansing No -Primary Dressing Applied Aquacel AG 4x4 -Primary Dressing Covered/Secured with Dry Gauze & Roll Gauze, Secured with Tape -Aquacel AG 4x4 1 Left -Compression Wrap Ino Wrap Treatment Response Procedure Tolerated Well Pain Scale: 0-10 Numeric Is Patient Pain Free? Yes WC - Visit Discharge Discharge Condition Stable Ambulatory Status Ambulatory Transportation Private Auto Assessment/Plan Assessment/Plan (1) Delayed wound healing: CODE(S): T14.8XXD - Other injury of unspecified body region, subsequent encounter (2) Ulcer of left lower extremity with fat layer exposed: CODE(S): L97.922 - Non-pressure chronic ulcer of unspecified part of left lower leg with fat layer exposed (3) Osteomyelitis: CODE(S): M86.9 - Osteomyelitis, unspecified (4) Venous insufficiency (chronic) (peripheral): CODE(S): I87.2 - Venous insufficiency (chronic) (peripheral) PLAN: I reviewed and discussed her case today. Debridement was performed today as noted in the clinical panel to the ulcer site. The following work up and care recommendations were made: Dressing: To continue aquacel ag; to take care to pack this wound that has returned tunneling. Wash: Antibacterial soap and water. Avoid soaking. To avoid bathtub bathing where her leg including her wound are submerged. I recommend she uses traditional antibacterial soap and water. Tissue growth optimization: If she does have a documented history of osteomyelitis that is chronic she may be a candidate for hyperbaric oxygen therapy. 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 Offload: To avoid direct pressure on the site. Vascular: She has nonpalpable pulses and lack of hair. She also has questionabl e claudication presentation. I recommend noninvasive vascular studies including MARI, segmental thigh and leg pressure, PVR, and systolic toe pressure. The results were reviewed and she has left biphasic waveforms, left MARI of 1.2, and left toe brachial index is 0.72. The segmental thigh and leg pressures were not obtained. There is not a difference of over 30 mmHg when compared to arm pressures. She is also advised to discontinue all tobacco products to optimize healing and limb salvage opportunities. Due to ongoing lack of healing, a vascular referral was provided for Dr. Rdz. She relates she is scheduled for intervention 08/01/21. Edema: There is mild to moderate edema. To wear Tubigrip for compression management. Compliance was discussed and necessary. She had Doppler with reflux exam performed and followed up with vascular specialist. Venous intervention was recommended. She will work on understanding her transportation opportunities to get to [place]. Infection: She does not have kevin purulent drainage today or erythema, streaking, or odor. To monitor for this. Culture was previously updated for mrsa pcr, aerobic and anearobic. She has a noted h/o MRSA growth. I recommend considering IV antibiotics due to her continued MRSA infections. She is also under the management of infectious disease specialist and continues IV antibiotics and has a PICC line in place. She is currently on a 6-week course of linezolid and is about to complete this. Pain: Controlled Host factors: She has significant delays in healing. We discussed tobacco cessation and how this impairs healing. She has some muscle wasting and delayed healing and nutritional supplementation would also be beneficial. Labs: Updated labs were recently updated including CBC, CMP, ESR, C-reactive protein, and hemoglobin A1c. No leukocytosis was noted. ESR 24. CRP 23.5. No gross abnormalities with CMP. A1c of 5.5%. Imaging: Left leg xrays were recently updated - there is a healed fracture in the mid third of the left tibia but apparently there is periosteal reaction and what appears to be chronic osteomyelitis with possibility of sinus tract. I answered all the patient's questions. To return to the wound healing center in 1 week or call sooner if the patient has any questions or concerns. Note: [employer] speech recognition computer support technician software was used to create portions of this document. Sound-alike and misspelled words, as well as other computer support technician errors may be contained in the documentation.
[2021-08-22 09:17] VITALS: BP 144/74; PULSE 87; RESP 18; TEMP 36.1; BMI 20.5
--- NOTE | 2021-08-22 10:39 | PN.PCM_ITS ---
History of Present Illness Date of Service: 08/22/21 Chief Complaint: left leg ulcer History of Wound: This 60-year-old female was seen today for left leg ulcer. She denies fever, chill, nausea, vomiting, diarrhea. She tries to wear compression garment. She continues to smoke. She denies leg pain, redness, or odor. She denies trauma or recent increase in swelling. She went for consultation with vascular specialist, Dr. Rdz who recommended venous procedural intervention in [place]. This was scheduled and she missed the appointment on 08/01/21 due to tinnitus. She relates she is rescheduled for 08-27-21. She plans to undergo several procedures. She is scheduled for next Friday. She reports she is having an issue because she took her postoperative Percocet already and this caused a conflict with the office. She is not sure she will be able to make it. Progress of Wound: Stable Objective Data Objective Data Vital Signs: Vital Signs Temp Pulse Resp BP 96.9 F L 87 18 144/74 H 08/22/21 09:17 08/22/21 09:17 08/22/21 09:17 08/22/21 09:17 Weight: 43.091 kg Body Mass Index (BMI) 20.5 Physical Exam Extremity Extremity Narrative: No calf tenderness Diminished pulses Muscle wasting noted Adjacent skin is atrophic and hairless Prior skin grafting surgical intervention site noted with cicatrix Decreased leg edema ulcer probes to bone Skin Skin Narrative: no kevin purulence, no erythema, no streaking, no odor. mima ulcer hyperpigmentation and edema continued. There is no periulcer inflammation. Neuro Neuro Narrative: lack of normal epicritic sensation via light touch is consistent with neuropathy status Debridement Note Debridement Note Wound debrided: left leg Wound Grade/Stage: Type of Debridement: Excisional debridement Anesthesia Used: 4% Lidocaine Solution Depth: in the subcutaneous layer Percentage of wound debrided: 100 Instrument Used: 3mm curette Tissue Removed: fibrous, devitalized subcutaneous, biofilm, slough Severity: Fat Layer Exposed Amount of bleeding with debridement: Mild Bleeding Controlled with: Pressure Patient tolerated procedure: Patient tolerated procedure well Post-Debridement Measurements and Additional Note: Post-Debridement Measurements/Treatment YVETTE - Nurse 1 - General Ulcer Assessment Start: 08/08/21 09:30 Freq: Status: Active Protocol: ELENA Activity Type Activity Date Activity User E-Sign Co-Sign Detail Recorded Client Recorded Date Recorded By Document 08/08/21 09:30 DL [id number] 08/08/21 09:35 DL Document 08/22/21 09:17 DL [id number] 08/22/21 09:28 DL 08/08/21 08/22/21 09:30 09:17 WC - Today's Visit Information Type of service Follow-up Visit Follow-up Visit (Physician/BLANKET BINDER (Physician/BLANKET BINDER ) ) Arrival Mode Ambulatory Ambulatory Transfer Assistance None None Patient Identification Verified (Name & Yes ) Patient Requires Transmission-Based No No Precautions Height and Weight Body Mass Index (BMI) 20.5 20.5 BMI Classification Normal Normal Vital Signs Temperature (97.8 F-99.1 F) 96.7 F L 96.9 F L Temperature Source Temporal Temporal Pulse Rate (60-100) 80 87 Pulse Location Monitor Monitor Respiratory Rate (12-18) 20 H 18 Respiratory rate source Observation Observation Blood Pressure (90/60-120/80) 153/68 H 144/74 H Blood Pressure Mean (mm Hg) 96 97 Source Monitor Monitor History Since Last Visit- (Skip if this is Patient's initial visit) Have you changed medications since your No No last visit? Any new allergies or adverse reactions No No Had a fall/change in ADL's that may No No increase risk of falls Signs or symptoms of abuse and/or No No neglect since last visit Have you been in the hospital since your No No last visit? Has dressing in place as prescribed Yes Yes Has compression in place as prescribed N/A Yes Has offloadiing in place as prescribed N/A N/A Experienced any changes in pain level or No No management Left Footwear Regular Shoe Right Footwear Regular Shoe Pain Scale: 0-10 Numeric Is Patient Pain Free? No WC - Nurse 1 - General Ulcer Measurement Start: 08/08/21 09:30 Freq: Status: Active Protocol: Activity Type Activity Date Activity User E-Sign Co-Sign Detail Recorded Client Recorded Date Recorded By Document 08/08/21 09:30 DL [id number] 08/08/21 09:35 DL Document 08/22/21 09:17 DL [id number] 08/22/21 09:28 DL 08/08/21 08/22/21 09:30 09:17 Wound Center Nurse 1 #1- L MEDIAL LE -Current Size (cm) - Length 0.6 0.4 -Current Size (cm) - Width 0.4 0.3 -Current Size (cm) - Depth 0.7 0.8 -Total Square Cm 0.24 0.12 -Photo Taken No No -Tunneling Position (O'clock) 2 -Tunneling Distance (cm) 2 -Maximum Distance #2 (cm) 0.2 -Circular Undermining Yes -Exudate Amt Small Small -Exudate Type Purulent -Wound Margin Distinct, Distinct, Outline Outline Attached Attached -Granulation Amt Small (1-33%) None Present (0 %) -Granulation Quality Red -Necrosis Amt Small (1-33%) Large (67-100%) -Necrotic Tissue Type Adherent Slough Adherent Slough -Structure Exposed N/A N/A -Texture (Mima-wound Skin Appearance) Scarring Scarring -Moisture (Mima-wound Skin Appearance) Dry/Scaly No Abnormality -Color (Mima-wound Skin Appearance) No Abnormality Hemosiderin Staining -Temperature (Mima-wound Skin No Abnormality Appearance) (Pt Warm) -Tenderness on Palpation (Mima-wound No Skin Appearance) -Ulcer Cleansing Soap and Water Soap and Water -Foul Odor after Cleansing No No -Anesthetic Used 4% Lidocaine 5% Lidocaine Solution Gel Left Calf (cm) 28.6 Left Ankle (cm) 19.3 - Nurse 2 - General Ulcer CM Notes Start: 08/08/21 09:30 Freq: Status: Active Protocol: Activity Type Activity Date Activity User E-Sign Co-Sign Detail Recorded Client Recorded Date Recorded By Document 08/08/21 09:52 [id number] 08/08/21 09:56 Document 08/22/21 09:35 [id number] 08/22/21 09:36 08/08/21 08/22/21 09:52 09:35 Wound Center Nurse 2 #1- L MEDIAL LE -Time 09:53 09:35 -Correct Patient Yes Yes -Correct Side, Site, Position Yes Yes -Correct Procedure Yes Yes -Procedure Performed Yes Yes -Type of Procedure Debridement Debridement -Clinical Debridement Subcutaneous Subcutaneous -Tissue Removed Subcutaneous Subcutaneous -Post Debridement (cm) - Length 0.7 0.7 -Post Debridement (cm) - Width 0.4 0.5 -Post Debridement (cm) - Depth 1.0 1.0 -Total Square (Post) (cm) 0.28 0.35 -Area of Debridement (cm) - Length 0.7 0.7 -Area of Debridement (cm) - Width 0.4 0.5 -Total Square (Area) (cm) 0.28 0.35 -Tunneling No No -Undermining/Tunneling No No -Circular Undermining No No -Wound/Ulcer Outcome Not Healed Not Healed -Ulcer Cleansing Rinsed/ Rinsed/ Irrigated with Irrigated with Saline Saline -Foul Odor after Cleansing No No -Bioengineered Tissue No No -Bleeding Controlled with Pressure Pressure -Offloading No No -Treatment Response Procedure Procedure Tolerated Well Tolerated Well -Debridement - Subq, 1st 20sq cm Yes Yes Pain Scale: 0-10 Numeric Is Patient Pain Free? Yes Yes - Nurse 3 - General Ulcer D/C NN Start: 08/08/21 09:30 Freq: Status: Active Protocol: Activity Type Activity Date Activity User E-Sign Co-Sign Detail Recorded Client Recorded Date Recorded By Document 08/08/21 10:04 [facility] [id number] 08/08/21 10:05 [facility] Document 08/22/21 09:49 [id number] 08/22/21 09:50 RB 08/08/21 08/22/21 10:04 09:49 Wound Care Nurse 3 #1- L MEDIAL LE -Ulcer Cleansing Soap and Water Rinsed/ Irrigated with Saline -Foul Odor after Cleansing No -Primary Dressing Applied Aquacel AG 4x4 Aquacel AG 2x2 -Primary Dressing Covered/Secured with Dry Gauze & Dry Gauze, Roll Gauze, Secured with Secured with Tape Tape -Aquacel AG 4x4 1 -Aquacel AG 2x2 1 Left -Compression Wrap Ino Wrap -Other ino Treatment Response Procedure Procedure Tolerated Well Tolerated Well Pain Scale: 0-10 Numeric Is Patient Pain Free? Yes - Visit Discharge Discharge Condition Stable Stable Ambulatory Status Ambulatory Ambulatory Transportation Private Auto Private Auto Clinical Summary of Care Provided Yes Assessment/Plan Assessment/Plan (1) Delayed wound healing: CODE(S): T14.8XXD - Other injury of unspecified body region, subsequent encounter (2) Ulcer of left lower extremity with fat layer exposed: CODE(S): L97.922 - Non-pressure chronic ulcer of unspecified part of left lower leg with fat layer exposed (3) Osteomyelitis: CODE(S): M86.9 - Osteomyelitis, unspecified (4) Venous insufficiency (chronic) (peripheral): CODE(S): I87.2 - Venous insufficiency (chronic) (peripheral) PLAN: I reviewed and discussed her case today. Debridement was performed today as noted in the clinical panel to the ulcer site. The following work up and care recommendations were made: Dressing: To continue aquacel ag; to take care to pack this wound that has returned tunneling. Wash: Antibacterial soap and water. Avoid soaking. To avoid bathtub bathing where her leg including her wound are submerged. I recommend she uses traditional antibacterial soap and water. Tissue growth optimization: If she does have a documented history of osteomyelitis that is chronic she may be a candidate for hyperbaric oxygen therapy. 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 Offload: To avoid direct pressure on the site. Vascular: She has nonpalpable pulses and lack of hair. She also has questionable claudication presentation. I recommend noninvasive vascular studies including MARI, segmental thigh and leg pressure, PVR, and systolic toe pressure. The results were reviewed and she has left biphasic waveforms, left MARI of 1.2, and left toe brachial index is 0.72. The segmental thigh and leg pressures were not obtained. There is not a difference of over 30 mmHg when compared to arm pressures. She is also advised to discontinue all tobacco p roducts to optimize healing and limb salvage opportunities. Due to ongoing lack of healing, a vascular referral was provided for Dr. Rdz. She relates she is scheduled for intervention this friday and is not sure she will be able to go. I advised her to get in touch with Dr. Rdz's office to reconcile her a for mention conflict. This is imperative for her healing process. She is a lot of questions about medications and I advised her to get a hold of Dr. Rdz's nurse or Dr. Rdz himself. Edema: There is mild to moderate edema. To wear Tubigrip for compression management. Compliance was discussed and necessary. She had Doppler with reflux exam performed and followed up with vascular specialist. Venous intervention was recommended. She will work on understanding her transportation opportunities to get to [place]. Infection: She does not have kevin purulent drainage today or erythema, streaking, or odor. To monitor for this. Culture was previously updated for mrsa pcr, aerobic and anearobic. She has a noted h/o MRSA growth. I recommend considering IV antibiotics due to her continued MRSA infections. She is also under the management of infectious disease specialist and continues IV antibiotics and has a PICC line in place. She is currently on a 6-week course of linezolid and is about to complete this. Pain: Controlled Host factors: She has significant delays in healing. We discussed tobacco cessation and how this impairs healing. She has some muscle wasting and delayed healing and nutritional supplementation would also be beneficial. Labs: Updated labs were recently updated including CBC, CMP, ESR, C-reactive protein, and hemoglobin A1c. No leukocytosis was noted. ESR 24. CRP 23.5. No gross abnormalities with CMP. A1c of 5.5%. Imaging: Left leg xrays were recently updated - there is a healed fracture in the mid third of the left tibia but apparently there is periosteal reaction and what appears to be chronic osteomyelitis with possibility of sinus tract. I answered all the patient's questions. To return to the wound healing center in 1 week or call sooner if the patient has any questions or concerns. Note: [employer] speech recognition petroleum supply specialist software was used to create portions of this document. Sound-alike and misspelled words, as well as other petroleum supply specialist errors may be contained in the documentation.
[2021-09-05 09:16] VITALS: BP 127/60; PULSE 85; RESP 16; TEMP 36.6; BMI 20.5
== END 2021-09-07 23:59 ==
LOC: WC 09:30
PROVIDERS: Referring Provider Podiatrist; Visit Provider Podiatrist
DX: T14.8XXD Other injury of unspecified body region, subsequent encounter (principal); L97.922 Non-pressure chronic ulcer of unspecified part of left lower leg with fat layer exposed; M86.9 Osteomyelitis, unspecified; I87.2 Venous insufficiency (chronic) (peripheral); M62.50 Muscle wasting and atrophy, not elsewhere classified, unspecified site; Z86.14 Personal history of Methicillin resistant Staphylococcus aureus infection
CPT/HCPCS: 11042; 99213; G0463

== ENCOUNTER 2021-09-26 08:30 | Outpatient (RCR) | payer MEDICAID, SELFPAY ==
[2021-09-08 00:26] VITALS: BP 127/60; PULSE 85; RESP 16; TEMP 36.6; BMI 20.5
[2021-09-12 09:37] VITALS: BP 121/61; PULSE 94; RESP 18; TEMP 36.8; BMI 20.5
--- NOTE | 2021-09-12 12:34 | PN.PCM_ITS ---
History of Present Illness Date of Service: 09/12/21 Chief Complaint: left leg ulcer History of Wound: This 60-year-old female was seen today for left leg ulcer. She denies fever, chill, nausea, vomiting, diarrhea. She tries to wear compression garment. She continues to smoke. She denies leg pain, redness, or odor. She denies trauma or recent increase in swelling. She went for consultation with vascular specialist, Dr. Rdz who recommended venous procedural intervention in [place]. She missed her appointment and procedure scheduled for 08-27-21. She did not reschedule this yet. She plans to undergo several procedures. She now has new ulcers and relates her leg is more swollen. She continues to smoke. Progress of Wound: Worse status with new wounds Objective Data Objective Data Vital Signs: Vital Signs Temp Pulse Resp BP 98.3 F 94 18 121/61 H 09/12/21 09:37 09/12/21 09:37 09/12/21 09:37 09/12/21 09:37 Oxygen Delivery Method Room Air Weight: 43.091 kg Body Mass Index (BMI) 20.5 Physical Exam Extremity Extremity Narrative: No calf tenderness Diminished pulses Muscle wasting noted Adjacent skin is atrophic and hairless Prior skin grafting surgical intervention site noted with cicatrix Decreased leg edema ulcer probes to bone with a depth of 1.5 cm. New skin discontinuities with 0.5 cm depth noted posterior and proximal anterior to the initial ulcer site. Skin Skin Narrative: no kevin purulence, no erythema, no streaking, no odor. mima ulcer hyperpigmentation and edema continued. There is increased edema and periulcer inflammation. Neuro Neuro Narrative: lack of normal epicritic sensation via light touch is consistent with neuropathy status Debridement Note Debridement Note Wound debrided: Left leg x3 Wound Grade/Stage: Type of Debridement: Excisional debridement Anesthesia Used: 4% Lidocaine Solution Depth: in the subcutaneous layer Percentage of wound debrided: 100 Instrument Used: #15 blade Tissue Removed: fibrous, devitalized subcutaneous, biofilm, slough Severity: Fat Layer Exposed Amount of bleeding with debridement: Mild Bleeding Controlled with: Pressure Patient tolerated procedure: Patient tolerated procedure well Post-Debridement Measurements and Additional Note: Post-Debridement Measurements/Treatment YVETTE - Nurse 1 - General Ulcer Assessment Start: 09/12/21 09:37 Freq: Status: Active Protocol: WC.LOWEXT Activity Type Activity Date Activity User E-Sign Co-Sign Detail Recorded Client Recorded Date Recorded By Document 09/12/21 09:37 MW [id number] 09/12/21 09:49 MW 09/12/21 09:37 WC - Today's Visit Information Type of service Follow-up Visit (Physician/PROFESSOR OF APOLOGETICS ) Arrival Mode Ambulatory Transfer Assistance None Accompanied by self Patient Identification Verified (Name & Yes ) Patient Requires Transmission-Based No Precautions Height and Weight Body Mass Index (BMI) 20.5 BMI Classification Normal Vital Signs Temperature (97.8 F-99.1 F) 98.3 F Temperature Source Temporal Pulse Rate (60-100) 94 Pulse Location Monitor Respiratory Rate (12-18) 18 Respiratory rate source Observation Oxygen Delivery Method Room Air Blood Pressure (90/60-120/80) 121/61 H Blood Pressure Mean (mm Hg) 81 Source Monitor Position Sitting Blood Pressure Location Right Arm History Since Last Visit- (Skip if this is Patient's initial visit) Have you changed medications since your No last visit? Any new allergies or adverse reactions No Had a fall/change in ADL's that may No increase risk of falls Signs or symptoms of abuse and/or No neglect since last visit Have you been in the hospital since your No last visit? Has dressing in place as prescribed Yes Has compression in place as prescribed Yes Has offloadiing in place as prescribed N/A Experienced any changes in pain level or No management Left Footwear Regular Shoe Right Footwear Regular Shoe Pain Scale: 0-10 Numeric Is Patient Pain Free? No Left LE -Description Sharp,Throbbing -Intensity 6 -Duration (hours) Chronic -Pain Behavior No Change in Behavior -Pain Aggravating Factors Exercise/ Activity -Alleviating Factors/Interventions None - Nurse 1 - General Ulcer Measurement Start: 09/12/21 09:37 Freq: Status: Active Protocol: Activity Type Activity Date Activity User E-Sign Co-Sign Detail Recorded Client Recorded Date Recorded By Document 09/12/21 09:37 MW [id number] 09/12/21 09:49 MW 09/12/21 09:37 Wound Center Nurse 1 #1- L MEDIAL LE cluster -Combined with other wound No -Current Size (cm) - Length 2.5 -Current Size (cm) - Width 2.5 -Current Size (cm) - Depth 0.4 -Total Square Cm 6.25 -Photo Taken No -Epithelialization None Present -Tunneling No -Undermining/Tunneling No -Circular Undermining No -Exudate Amt Medium -Exudate Type Serosanguineous -Wound Margin Flat & Intact -Granulation Amt Large (67-100%) -Granulation Quality [place] -Slough/Fibrin Yes -Necrosis Amt Small (1-33%) -Necrotic Tissue Type Adherent Slough -Structure Exposed N/A -Texture (Mima-wound Skin Appearance) Assessed, Scarring -Moisture (Mima-wound Skin Appearance) Assessed,Dry/ Scaly -Color (Mima-wound Skin Appearance) Assessed -Temperature (Mima-wound Skin No Abnormality Appearance) (Pt Warm) -Tenderness on Palpation (Mima-wound Yes Skin Appearance) -Ulcer Cleansing Soap and Water -Foul Odor after Cleansing No -Anesthetic Used 5% Lidocaine Gel Lower Limb Edema Present No Left Calf (cm) 32.0 Left Ankle (cm) 21.0 WC - Nurse 2 - General Ulcer CM Notes Start: 09/12/21 09:37 Freq: Status: Active Protocol: Activity Type Activity Date Activity User E-Sign Co-Sign Detail Recorded Client Recorded Date Recorded By Document 09/12/21 10:03 TENZIN [id number] 09/12/21 10:04 TENZIN 09/12/21 10:03 Wound Center Nurse 2 #1- L [facility] cluster -Time 10:03 -Correct Patient Yes -Correct Side, Site, Position Yes -Correct Procedure Yes -Procedure Performed Yes -Type of Procedure Debridement -Clinical Debridement Subcutaneous -Tissue Removed Subcutaneous -Post Debridement (cm) - Length 2.5 -Post Debridement (cm) - Width 2.5 -Post Debridement (cm) - Depth 1.5 -Total Square (Post) (cm) 6.25 -Area of Debridement (cm) - Length 2.5 -Area of Debridement (cm) - Width 2.5 -Total Square (Area) (cm) 6.25 -Tunneling No -Undermining/Tunneling No -Circular Undermining No -Wound/Ulcer Outcome Not Healed -Ulcer Cleansing Rinsed/ Irrigated with Saline -Foul Odor after Cleansing No -Bioengineered Tissue No -Bleeding Controlled with Pressure -Offloading No -Treatment Response Procedure Tolerated Well -Debridement - Subq, 1st 20sq cm Yes Pain Scale: 0-10 Numeric Is Patient Pain Free? Yes - Nurse 3 - General Ulcer D/C NN Start: 09/12/21 09:37 Freq: Status: Active Protocol: Activity Type Activity Date Activity User E-Sign Co-Sign Detail Recorded Client Recorded Date Recorded By Document 09/12/21 10:16 RB [id number] 09/12/21 10:17 RB 09/12/21 10:16 Wound Care Nurse 3 #1- L MEDIAL LE cluster -Ulcer Cleansing Rinsed/ Irrigated with Saline -Primary Dressing Applied Aquacel AG 4x4 -Other Dressing irving -Primary Dressing Covered/Secured with Dry Gauze,Dry Gauze & Roll Gauze,Secured with Tape -Aquacel AG 4x4 1 Treatment Response Procedure Tolerated Well Pain Scale: 0-10 Numeric Is Patient Pain Free? Yes WC - Visit Discharge Discharge Condition Stable Ambulatory Status Ambulatory Transportation Private Auto Medication Reconcilliation completed & No provided to patient/care provider Clinical Summary of Care Provided Yes Assessment/Plan Assessment/Plan (1) Delayed wound healing: CODE(S): T14.8XXD - Other injury of unspecified body region, subsequent encounter (2) Ulcer of left lower extremity with fat layer exposed: CODE(S): L97.922 - Non-pressure chronic ulcer of unspecified part of left lower leg with fat layer exposed (3) Osteomyelitis: CODE(S): M86.9 - Osteomyelitis, unspecified (4) Venous insufficiency (chronic) (peripheral): CODE(S): I87.2 - Venous insufficiency (chronic) (peripheral) PLAN: I reviewed and discussed her case today. Debridement was performed today as noted in the clinical panel to the ulcer site. Her status changes noted with worsening edema and new ulcers. The following work up and care recommendations were made: Dressing: To continue aquacel ag; to take care to pack this wound that has returned tunneling. Wash: Antibacterial soap and water. Avoid soaking. To avoid bathtub bathing where her leg including her wound are submerged. I recommend she uses traditional antibacterial soap and water. Tissue growth optimization: If she does have a documented history of osteomyelitis that is chronic she may be a candidate for hyperbaric oxygen therapy. 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 Offload: To avoid direct pressure on the site. Vascular: She has nonpalpable pulses and lack of hair. She also has questionable claudication presentation. I recommend noninvasive vascular studies including MARI, segmental thigh and leg pressure, PVR, and systolic toe pressure. The results were reviewed and she has left biphasic waveforms, left MARI of 1.2, and left toe brachial index is 0.72. The segmental thigh and leg pressures were not obtained. There is not a difference of over 30 mmHg when compared to arm pressures. She is also advised to discontinue all tobacco products to optimize healing and limb salvage opportunities. Due to ongoing lack of healing, a vascular referral was provided for Dr. Rdz. She relates she is scheduled for intervention this friday and she actually missed this again. I advised her to get this rescheduled and her potential is very guarded at this time due to lack of compliance. Edema: There is mild to moderate edema. To wear Tubigrip for compression management. Compliance was discussed and necessary. She had Doppler with reflux exam performed and followed up with vascular specialist. Venous inte rvention was recommended. She will work on understanding her transportation opportunities to get to [place]. Infection: She does not have kevin purulent drainage today or erythema, streaking, or odor. To monitor for this. Culture was previously updated for mrsa pcr, aerobic and anearobic. She has a noted h/o MRSA growth. I recommend considering IV antibiotics due to her continued MRSA infections. She is also under the management of infectious disease specialist and continues IV antibiotics and has a PICC line in place. She is currently on a 6-week course of linezolid and is about to complete this. Pain: Controlled Host factors: She has significant delays in healing. We discussed tobacco cessation and how this impairs healing. She has some muscle wasting and delayed healing and nutritional supplementation would also be beneficial. Labs: Updated labs were recently updated including CBC, CMP, ESR, C-reactive protein, and hemoglobin A1c. No leukocytosis was noted. ESR 24. CRP 23.5. No gross abnormalities with CMP. A1c of 5.5%. Imaging: Left leg xrays were recently updated - there is a healed fracture in the mid third of the left tibia but apparently there is periosteal reaction and what appears to be chronic osteomyelitis with possibility of sinus tract. I answered all the patient's questions. To return to the wound healing center in 1 week or call sooner if the patient has any questions or concerns. Note: [employer] speech recognition dean for student affairs software was used to create portions of this document. Sound-alike and misspelled words, as well as other dean for student affairs errors may be contained in the documentation. 20 minutes was spent on this encounter. This included face to face and non face to face care including preparing for the visit, reviewing the history, performing the exam, counseling and providing education to the patient, family, or caregiver, ordering medications/test/ procedures if indicated as documented, communicating with other healthcare providers, documenting information in the medical record, interpreting / sharing this information when indicated as documented, and care coordination.
[2021-09-26 08:24] VITALS: BP 133/74; PULSE 88; RESP 18; TEMP 36.9; BMI 20.5
--- NOTE | 2021-09-26 09:45 | PCM.WC.PN ---
History of Present Illness Date of Service: 09/26/21 Chief Complaint: left leg ulcer History of Wound: This 60-year-old female was seen today for left leg ulcer. She denies fever, chill, nausea, vomiting, diarrhea. She tries to wear compression garment. She continues to smoke. She denies leg pain, redness, or odor. She denies trauma or recent increase in swelling. She went for consultation with vascular specialist, Dr. Rdz who recommended venous procedural intervention in [place]. She missed her appointment and procedure scheduled for 08-27-21. She did not reschedule this yet still. She plans to undergo several procedures. She now has new ulcers and relates her leg is more swollen. She continues to smoke. She states her wound is not healing because it is wintertime. Progress of Wound: Stable with improved. Ulcer presentation Objective Data Objective Data Vital Signs: Vital Signs Temp Pulse Resp BP 98.4 F 88 18 133/74 H 09/26/21 08:24 09/26/21 08:24 09/26/21 08:24 09/26/21 08:24 Oxygen Delivery Method Room Air Weight: 43.091 kg Body Mass Index (BMI) 20.5 Physical Exam Extremity Extremity Narrative: No calf tenderness Diminished pulses Muscle wasting noted Adjacent skin is atrophic and hairless Prior skin grafting surgical intervention site noted with cicatrix Decreased leg edema two skin discontinuity sites Skin Skin Narrative: no kevin purulence, no erythema, no streaking, no odor. mima ulcer decreased edema continued. There is resolved edema and periulcer inflammation. Neuro Neuro Narrative: lack of normal epicritic sensation via light touch is consistent with neuropathy status Debridement Note Debridement Note Wound debrided: left leg Wound Grade/Stage: Type of Debridement: Excisional debridement Anesthesia Used: 4% Lidocaine Solution Depth: in the subcutaneous layer Percentage of wound debrided: 100 Instrument Used: - (1 mm curette) Tissue Removed: fibrous, devitalized subcutaneous, biofilm, slough Severity: Fat Layer Exposed Amount of bleeding with debridement: Mild Bleeding Controlled with: Pressure Patient tolerated procedure: Patient tolerated procedure well Post-Debridement Measurements and Additional Note: Post-Debridement Measurements/Treatment YVETTE - Nurse 1 - General Ulcer Assessment Start: 09/12/21 09:37 Freq: Status: Active Protocol: ELENA Activity Type Activity Date Activity User E-Sign Co-Sign Detail Recorded Client Recorded Date Recorded By Document 09/12/21 09:37 MW [id number] 09/12/21 09:49 MW Document 09/26/21 08:24 DL [id number] 09/26/21 08:29 DL 09/12/21 09/26/21 09:37 08:24 WC - Today's Visit Information Type of service Follow-up Visit Follow-up Visit (Physician/MODERN LANGUAGES PROFESSOR (Physician/MODERN LANGUAGES PROFESSOR ) ) Arrival Mode Ambulatory Ambulatory Transfer Assistance None None Accompanied by self Patient Identification Verified (Name & Yes Yes ) Patient Requires Transmission-Based No No Precautions Height and Weight Body Mass Index (BMI) 20.5 20.5 BMI Classification Normal Normal Vital Signs Temperature (97.8 F-99.1 F) 98.3 F 98.4 F Temperature Source Temporal Temporal Pulse Rate (60-100) 94 88 Pulse Location Monitor Monitor Respiratory Rate (12-18) 18 18 Respiratory rate source Observation Observation Oxygen Delivery Method Room Air Blood Pressure (90/60-120/80) 121/61 H 133/74 H Blood Pressure Mean (mm Hg) 81 93 Source Monitor Monitor Position Sitting Blood Pressure Location Right Arm History Since Last Visit- (Skip if this is Patient's initial visit) Have you changed medications since your No No last visit? Any new allergies or adverse reactions No No Had a fall/change in ADL's that may No No increase risk of falls Signs or symptoms of abuse and/or No No neglect since last visit Have you been in the hospital since your No No last visit? Has dressing in place as prescribed Yes No Has compression in place as prescribed Yes N/A Has offloadiing in place as prescribed N/A N/A Experienced any changes in pain level or No No management Left Footwear Regular Shoe Surgical Shoe with pressure relief insole Right Footwear Regular Shoe Regular Shoe Pain Scale: 0-10 Numeric Is Patient Pain Free? No Yes Left LE -Description Sharp,Throbbing -Intensity 6 -Duration (hours) Chronic -Pain Behavior No Change in Behavior -Pain Aggravating Factors Exercise/ Activity -Alleviating Factors/Interventions None WC - Nurse 1 - General Ulcer Measurement Start: 09/12/21 09:37 Freq: Status: Active Protocol: Activity Type Activity Date Activity User E-Sign Co-Sign Detail Recorded Client Recorded Date Recorded By Document 09/12/21 09:37 MW [id number] 09/12/21 09:49 MW Document 09/26/21 08:24 DL [id number] 09/26/21 08:29 DL 09/12/21 09/26/21 09:37 08:24 Wound Center Nurse 1 #1- L MEDIAL LE cluster -Combined with other wound No -Current Size (cm) - Length 2.5 1.5 -Current Size (cm) - Width 2.5 1.9 -Current Size (cm) - Depth 0.4 0.2 -Total Square Cm 6.25 2.85 -Photo Taken No No -Epithelialization None Present -Tunneling No -Undermining/Tunneling No -Circular Undermining No -Exudate Amt Medium Small -Exudate Type Serosanguineous Serosanguineous -Wound Margin Flat & Intact Indistinct, Non -Visible -Granulation Amt Large (67-100%) Small (1-33%) -Granulation Quality [place] -Slough/Fibrin Yes -Necrosis Amt Small (1-33%) Small (1-33%) -Necrotic Tissue Type Adherent Slough Adherent Slough -Structure Exposed N/A N/A -Texture (Mima-wound Skin Appearance) Assessed, Scarring,Rash Scarring -Moisture (Mima-wound Skin Appearance) Assessed,Dry/ Dry/Scaly Scaly -Color (Mima-wound Skin Appearance) Assessed Hemosiderin Staining -Temperature (Mima-wound Skin No Abnormality No Abnormality Appearance) (Pt Warm) (Pt Warm) -Tenderness on Palpation (Mima-wound Yes No Skin Appearance) -Ulcer Cleansing Soap and Water Soap and Water -Foul Odor after Cleansing No No -Anesthetic Used 5% Lidocaine 4% Lidocaine Gel Solution Lower Limb Edema Present No Left Calf (cm) 32.0 29.5 Left Ankle (cm) 21.0 19 WC - Nurse 2 - General Ulcer CM Notes Start: 09/12/21 09:37 Freq: Status: Active Protocol: Activity Type Activity Date Activity User E-Sign Co-Sign Detail Recorded Client Recorded Date Recorded By Document 09/12/21 10:03 TENZIN [id number] 09/12/21 10:04 JF Document 09/26/21 08:36 [id number] 09/26/21 08:39 JF 09/12/21 09/26/21 10:03 08:36 Wound Center Nurse 2 #1- L MEDIAL LE cluster -Time 10:03 08:36 -Correct Patient Yes Yes -Correct Side, Site, Position Yes Yes -Correct Procedure Yes Yes -Procedure Performed Yes Yes -Type of Procedure Debridement Debridement -Clinical Debridement Subcutaneous Subcutaneous -Tissue Removed Subcutaneous Subcutaneous -Post Debridement (cm) - Length 2.5 0.6 -Post Debridement (cm) - Width 2.5 1.7 -Post Debridement (cm) - Depth 1.5 0.5 -Total Square (Post) (cm) 6.25 1.02 -Area of Debridement (cm) - Length 2.5 0.6 -Area of Debridement (cm) - Width 2.5 1.7 -Total Square (Area) (cm) 6.25 1.02 -Tunneling No No -Undermining/Tunneling No No -Circular Undermining No No -Wound/Ulcer Outcome Not Healed Not Healed -Ulcer Cleansing Rinsed/ Rinsed/ Irrigated with Irrigated with Saline Saline -Foul Odor after Cleansing No No -Bioengineered Tissue No No -Bleeding Controlled with Pressure Pressure -Offloading No No -Treatment Response Procedure Procedure Tolerated Well Tolerated Well -Debridement - Subq, 1st 20sq cm Yes Yes Pain Scale: 0-10 Numeric Is Patient Pain Free? Yes Yes - Nurse 3 - General Ulcer D/C NN Start: 09/12/21 09:37 Freq: Status: Active Protocol: Activity Type Activity Date Activity User E-Sign Co-Sign Detail Recorded Client Recorded Date Recorded By Document 09/12/21 10:16 [id number] 09/12/21 10:17 RB Document 09/26/21 08:44 [id number] 09/26/21 08:44 09/12/21 09/26/21 10:16 08:44 Wound Care Nurse 3 #1- L MEDIAL LE cluster -Ulcer Cleansing Rinsed/ Rinsed/ Irrigated with Irrigated with Saline Saline -Foul Odor after Cleansing No -Primary Dressing Applied Aquacel AG 4x4 Aquacel AG 2x2 -Other Dressing ino -Primary Dressing Covered/Secured with Dry Gauze,Dry Dry Gauze, Gauze & Roll Secured with Gauze,Secured Tape with Tape -Aquacel AG 4x4 1 -Aquacel AG 2x2 1 Left -Compression Wrap Ino Wrap Treatment Response Procedure Tolerated Well Pain Scale: 0-10 Numeric Is Patient Pain Free? Yes Yes WC - Visit Discharge Discharge Condition Stable Stable Ambulatory Status Ambulatory Ambulatory Transportation Private Auto Private Auto Medication Reconcilliation completed & No Yes provided to patient/care provider Clinical Summary of Care Provided Yes Yes Assessment/Plan Assessment/Plan (1) Delayed wound healing: CODE(S): T14.8XXD - Other injury of unspecified body region, subsequent encounter (2) Ulcer of left lower extremity with fat layer exposed: CODE(S): L97.922 - Non-pressure chronic ulcer of unspecified part of left lower leg with fat layer exposed (3) Osteomyelitis: CODE(S): M86.9 - Osteomyelitis, unspecified (4) Venous insufficiency (chronic) (peripheral): CODE(S): I87.2 - Venous insufficiency (chronic) (peripheral) PLAN: I reviewed and discussed her case today. Debridement was performed today as noted in the clinical panel to the ulcer site. Her status changes noted with worsening edema and new ulcers. The following work up and care recommendations were made: Dressing: To continue aquacel ag; to take care to pack this wound that has returned tunneling. Wash: Antibacterial soap and water. Avoid soaking. To avoid bathtub bathing where her leg including her wound are submerged. I recommend she uses traditional antibacterial soap and water. Tissue growth optimization: If she does have a documented history of osteomyelitis that is chronic she may be a candidate for hyperbaric oxygen therapy. 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 Offload: To avoid direct pressure on the site. Vascular: She has nonpalpable pulses and lack of hair. She also has questionable claudication presentation. I recommend noninvasive vascular studies including MARI, segmental thigh and leg pressure, PVR, and systolic toe pressure. The results were reviewed and she has left biphasic waveforms, left MARI of 1.2, and left toe brachial index is 0.72. The segmental thigh and leg pressures were not obtained. There is not a difference of over 30 mmHg when compared to arm pressures. She is also advised to discontinue all tobacco products to optimize healing and limb salvage opportunities. Due to ongoing lack of healing, a vascular referral was provided for Dr. Rdz. She relates she is scheduled for intervention this friday and she actually missed this again. I advised her to get this rescheduled and her potential is very guarded at this time due to lack of compliance. Edema: There is mild to moderate edema. To wear Tubigrip for compression management. Compliance was discussed and necessary. She had Doppler with reflux exam performed and followed up with vascular specialist. Venous intervention was recommended. She will work on understanding her transportation opportunities to get to [place]. Infection: She does not have kevin purulent drainage today or erythema, streaking, or odor. To monitor for this. Culture was previously updated for mrsa pcr, aerobic and anearobic. She has a noted h/o MRSA growth. I recommend considering IV antibiotics due to her continued MRSA infections. She is also under the management of infectious disease specialist and continues IV antibiotics and has a PICC line in place. She is currently on a 6-week course of linezolid and is about to complete this. Pain: Controlled Host factors: She has significant delays in healing. We discussed tobacco cessation and how this impairs healing. She has some muscle wasting and delayed healing and nutritional supplementation would also be beneficial. Labs: Updated labs were recently updated including CBC, CMP, ESR, C-reactive protein, and hemoglobin A1c. No leukocytosis was noted. ESR 24. CRP 23.5. No gross abnormalities with CMP. A1c of 5.5%. Imaging: Left leg xrays were recently updated - there is a healed fracture in the mid third of the left tibia but apparently there is periosteal reaction and what appears to be chronic osteomyelitis with possibility of sinus tract. I answered all the patient's questions. To return to the wound healing center in 1 week or call sooner if the patient has any questions or concerns. Note: [employer] speech recognition fire department battalion chief software was used to create portions of this document. Sound-alike and misspelled words, as well as other fire department battalion chief errors may be contained in the documentation. 10 minutes was spent on this encounter. This included face to face and non face to face care including preparing for the visit, reviewing the history, performing the exam, counseling and providing education to the patient, family, or caregiver, ordering medications/test/ procedures if indicated as documented, communicating with other healthcare providers, documenting information in the medical record, interpreting / sharing this information when indicated as documented, and care coordination.
== END 2021-10-08 23:59 ==
LOC: WC 08:30
PROVIDERS: Referring Provider Podiatrist; Visit Provider Podiatrist
DX: M86.9 Osteomyelitis, unspecified (principal); L97.922 Non-pressure chronic ulcer of unspecified part of left lower leg with fat layer exposed; F17.200 Nicotine dependence, unspecified, uncomplicated; I87.2 Venous insufficiency (chronic) (peripheral); T14.8XXD Other injury of unspecified body region, subsequent encounter
CPT/HCPCS: 11042

== ENCOUNTER 2021-10-10 10:00 | Outpatient (RCR) | payer MEDICAID, SELFPAY ==
[2021-10-09 00:33] VITALS: BP 133/74; PULSE 88; RESP 18; TEMP 36.9; BMI 20.5
[2021-10-10 10:10] VITALS: BP 134/80; PULSE 94; RESP 20; TEMP 37.3; BMI 20.5
--- NOTE | 2021-10-10 11:39 | PCM.WC.PN ---
History of Present Illness Date of Service: 10/10/21 Chief Complaint: left leg ulcer History of Wound: This 61-year-old female was seen today for left leg ulcer. She denies fever, chill, nausea, vomiting, diarrhea. She tries to wear compression garment. She continues to smoke. She denies leg pain, redness, or odor. She denies trauma or recent increase in swelling. She went for consultation with vascular specialist, Dr. Rdz who recommended venous procedural intervention in [place]. She missed her appointment and procedure scheduled for 08-27-21. She did not reschedule this yet still. She plans to undergo several procedures. She continues to smoke. She relates her leg swelling is decreased. Progress of Wound: improving Objective Data Objective Data Vital Signs: Vital Signs Temp Pulse Resp BP 99.1 F 94 20 H 134/80 H 10/10/21 10:10 10/10/21 10:10 10/10/21 10:10 10/10/21 10:10 Weight: 43.091 kg Body Mass Index (BMI) 20.5 Physical Exam Extremity Extremity Narrative: No calf tenderness Diminished pulses Muscle wasting noted Adjacent skin is atrophic and hairless Prior skin grafting surgical intervention site noted with cicatrix Decreased leg edema two skin discontinuity sites Skin Skin Narrative: no kevin purulence, no erythema, no streaking, no odor. mima ulcer decreased edema continued. There is resolved edema and periulcer inflammation. Neuro Neuro Narrative: lack of normal epicritic sensation via light touch is consistent with neuropathy status Debridement Note Debridement Note Wound debrided: left leg x 2 Wound Grade/Stage: Type of Debridement: Excisional debridement Anesthesia Used: 4% Lidocaine Solution Depth: in the subcutaneous layer Percentage of wound debrided: 100 Instrument Used: #15 blade Tissue Removed: fibrous, devitalized subcutaneous, biofilm, slough Severity: Fat Layer Exposed Amount of bleeding with debridement: Mild Bleeding Controlled with: Pressure Patient tolerated procedure: Patient tolerated procedure well Post-Debridement Measurements and Additional Note: Post-Debridement Measurements/Treatment WC - Nurse 1 - General Ulcer Assessment Start: 10/10/21 10:10 Freq: Status: Active Protocol: [email or web address] Activity Type Activity Date Activity User E-Sign Co-Sign Detail Recorded Client Recorded Date Recorded By Document 10/10/21 10:10 DL [id number] 10/10/21 10:17 DL 10/10/21 10:10 - Today's Visit Information Type of service Follow-up Visit (Physician/IN HOME BABY SITTER ) Arrival Mode Ambulatory Transfer Assistance None Patient Identification Verified (Name & Yes ) Patient Requires Transmission-Based No Precautions Height and Weight Body Mass Index (BMI) 20.5 BMI Classification Normal Vital Signs Temperature (97.8 F-99.1 F) 99.1 F Temperature Source Temporal Pulse Rate (60-100) 94 Pulse Location Monitor Respiratory Rate (12-18) 20 H Respiratory rate source Observation Blood Pressure (90/60-120/80) 134/80 H Blood Pressure Mean (mm Hg) 98 Source Monitor History Since Last Visit- (Skip if this is Patient's initial visit) Have you changed medications since your No last visit? Any new allergies or adverse reactions No Had a fall/change in ADL's that may No increase risk of falls Signs or symptoms of abuse and/or No neglect since last visit Have you been in the hospital since your No last visit? Has dressing in place as prescribed Yes Has compression in place as prescribed Yes Has offloadiing in place as prescribed N/A Experienced any changes in pain level or No management Left Footwear Slipper Right Footwear Regular Shoe Pain Scale: 0-10 Numeric Is Patient Pain Free? Yes - Nurse 1 - General Ulcer Measurement Start: 10/10/21 10:10 Freq: Status: Active Protocol: Activity Type Activity Date Activity User E-Sign Co-Sign Detail Recorded Client Recorded Date Recorded By Document 10/10/21 10:10 DL [id number] 10/10/21 10:17 DL 10/10/21 10:10 Wound Center Nurse 1 #1- L MEDIAL LE cluster -Current Size (cm) - Length 0.5 -Current Size (cm) - Width 0.3 -Current Size (cm) - Depth 0.3 -Total Square Cm 0.15 -Photo Taken Yes -Exudate Amt Medium -Exudate Type Serosanguineous -Wound Margin Indistinct, Non -Visible -Granulation Amt Small (1-33%) -Granulation Quality [place] -Necrosis Amt Small (1-33%) -Necrotic Tissue Type Adherent Slough -Texture (Mima-wound Skin Appearance) Localized Edema ,Scarring -Moisture (Mima-wound Skin Appearance) No Abnormality -Color (Mima-wound Skin Appearance) Erythema -Temperature (Mima-wound Skin No Abnormality Appearance) (Pt Warm) -Tenderness on Palpation (Mima-wound No Skin Appearance) -Ulcer Cleansing Soap and Water -Foul Odor after Cleansing No -Anesthetic Used 4% Lidocaine Solution WC - Nurse 2 - General Ulcer CM Notes Start: 10/10/21 10:10 Freq: Status: Active Protocol: Activity Type Activity Date Activity User E-Sign Co-Sign Detail Recorded Client Recorded Date Recorded By Document 10/10/21 10:33 [id number] 10/10/21 10:34 10/10/21 10:33 Wound Center Nurse 2 -Time 10:33 -Correct Patient Yes -Correct Side, Site, Position Yes -Correct Procedure Yes -Procedure Performed Yes -Type of Procedure Debridement -Clinical Debridement Subcutaneous -Tissue Removed Subcutaneous -Post Debridement (cm) - Length 0.5 -Post Debridement (cm) - Width 0.4 -Post Debridement (cm) - Depth 1.1 -Total Square (Post) (cm) 0.20 -Area of Debridement (cm) - Length 0.5 -Area of Debridement (cm) - Width 0.4 -Total Square (Area) (cm) 0.20 -Tunneling No -Undermining/Tunneling No -Circular Undermining No -Wound/Ulcer Outcome Not Healed -Ulcer Cleansing Rinsed/ Irrigated with Saline -Foul Odor after Cleansing No -Bioengineered Tissue No -Bleeding Controlled with Pressure -Offloading No -Treatment Response Procedure Tolerated Well -Debridement - Subq, 1st 20sq cm Yes Pain Scale: 0-10 Numeric Is Patient Pain Free? Yes Assessment/Plan Assessment/Plan (1) Delayed wound healing: CODE(S): T14.8XXD - Other injury of unspecified body region, subsequent encounter (2) Ulcer of left lower extremity with fat layer exposed: CODE(S): L97.922 - Non-pressure chronic ulcer of unspecified part of left lower leg with fat layer exposed (3) Osteomyelitis: CODE(S): M86.9 - Osteomyelitis, unspecified (4) Venous insufficiency (chronic) (peripheral): CODE(S): I87.2 - Venous insufficiency (chronic) (peripheral) PLAN: I reviewed and discussed her case today. Debridement was performed today as noted in the clinical panel to the ulcer site. The following work up and care recommendations were made: Dressing: To continue aquacel ag; to take care to pack this wound that has returned tunneling. Wash: Antibacterial soap and water. Avoid soaking. To avoid bathtub bathing where her leg including her wound are submerged. I recommend she uses traditional antibacterial soap and water. Tissue growth optimization: If she does have a documented history of osteomyelitis that is chronic she may be a candidate for hyperbaric oxygen therapy. 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 Offload: To avoid direct pressure on the site. Vascular: She has nonpalpable pulses and lack of hair. She also has questionable claudication presentation. I recommend noninvasive vascular studies including MARI, segmental thigh and leg pressure, PVR, and systolic toe pressure. The results were reviewed and she has left biphasic waveforms, left MARI of 1.2, and left toe brachial index is 0.72. The segmental thigh and leg pressures were not obtained. There is not a difference of over 30 mmHg when compared to arm pressures. She is also advised to discontinue all tobacco products to optimize healing and limb salvage opportunities. Due to ongoing lack of healing, a vascular referral was provided for Dr. Rdz. She relates she is scheduled for intervention this friday and she actually missed this again. I advised her to get this rescheduled and her potential is very guarded at this time due to lack of compliance. Edema: There is mild to moderate edema; recently decreased. To wear Tubigrip for compression management. Compliance was discussed and necessary. She had Doppler with reflux exam performed and followed up with vascular specialist. Venous intervention was recommended. She will work on understanding her transportation opportunities to get to [place]. Infection: She does not have kevin purulent drainage today or erythema, streaking, or odor. To monitor for this. Culture was previously updated for mrsa pcr, aerobic and anearobic. She has a noted h/o MRSA growth. I recommend considering IV antibiotics due to her continued MRSA infections. She is also under the management of infectious disease specialist and continues IV antibiotics and has a PICC line in place. She is currently on a 6-week course of linezolid and this has been completed. no infection signs noted today. Pain: Controlled Host factors: She has significant delays in healing. We discussed tobacco cessation and how this impairs healing. She has some muscle wasting and delayed healing and nutritional supplementation would also be beneficial. Labs: Updated labs were recently updated including CBC, CMP, ESR, C-reactive protein, and hemoglobin A1c. No leukocytosis was noted. ESR 24. CRP 23.5. No gross abnormalities with CMP. A1c of 5.5%. Imaging: Left leg xrays were recently updated - there is a healed fracture in the mid third of the left tibia but apparently there is periosteal reaction and what appears to be chronic osteomyelitis with possibility of sinus tract. I answered all the patient's questions. To return to the wound healing center in 1 week or call sooner if the patient has any questions or concerns. Note: [employer] speech recognition environmental services manager software was used to create portions of this document. Sound-alike and misspelled words, as well as other environmental services manager errors may be contained in the documentation.
== END 2021-11-05 23:59 | disposition home or self-care (01) ==
LOC: WC 10:00
PROVIDERS: Referring Provider Podiatrist; Visit Provider Podiatrist
DX: L97.922 Non-pressure chronic ulcer of unspecified part of left lower leg with fat layer exposed (principal); M86.9 Osteomyelitis, unspecified; F17.200 Nicotine dependence, unspecified, uncomplicated; I87.2 Venous insufficiency (chronic) (peripheral)
CPT/HCPCS: 11042

== ENCOUNTER 2021-12-05 11:30 | Outpatient (RCR) | payer MEDICAID, SELFPAY ==
[2021-11-06 00:28] VITALS: BP 134/80; PULSE 94; RESP 20; TEMP 37.3; BMI 20.5
[2021-11-07 08:41] VITALS: BP 125/54; PULSE 94; RESP 18; TEMP 36.5; BMI 20.5
--- NOTE | 2021-11-07 08:50 | WC ---
pt saw and menezes procedure friday at 830am. today 3m coban removed LLE not active drainge noted
--- NOTE | 2021-11-07 10:30 | PN.PCM_ITS ---
History of Present Illness Date of Service: 11/07/21 Chief Complaint: left leg ulcer History of Wound: This 61-year-old female was seen today for left leg ulcer. She denies fever, chill, nausea, vomiting, diarrhea. She tries to wear compression garment. She continues to smoke. She denies leg pain, redness, or odor. She denies trauma or recent increase in swelling. She went for consultation with vascular specialist, Dr. Rdz who recommended venous procedural intervention in [place]. She had initial intervention 2 days ago and presents with compression wrap on her leg and thigh. She plans to undergo several procedures. She continues to smoke. She relates her leg swelling is decreased. Progress of Wound: Improved Objective Data Objective Data Vital Signs: Vital Signs Temp Pulse Resp BP 97.7 F L 94 18 125/54 H 11/07/21 08:41 11/07/21 08:41 11/07/21 08:41 11/07/21 08:41 Weight: 43.091 kg Body Mass Index (BMI) 20.5 Physical Exam Extremity Extremity Narrative: No calf tenderness Diminished pulses Muscle wasting noted Adjacent skin is atrophic and hairless Prior skin grafting surgical intervention site noted with cicatrix Decreased leg edema is significant today with ulcer size reduction including significant reduction in depth (2 mm) Skin Skin Narrative: no kevin purulence, no erythema, no streaking, no odor. mima ulcer decreased edema continued. There is resolved edema and periulcer inflammation. Neuro Neuro Narrative: lack of normal epicritic sensation via light touch is consistent with neuropathy status Debridement Note Debridement Note Wound debrided: left leg Wound Grade/Stage: Type of Debridement: Excisional debridement Anesthesia Used: 4% Lidocaine Solution Depth: in the subcutaneous layer Percentage of wound debrided: 100 Instrument Used: #15 blade and - (1 mm curette) Tissue Removed: fibrous, devitalized subcutaneous, biofilm, slough Severity: Fat Layer Exposed Amount of bleeding with debridement: Mild Bleeding Controlled with: Pressure Patient tolerated procedure: Patient tolerated procedure well Post-Debridement Measurements and Additional Note: Post-Debridement Measurements/Treatment YVETTE - Nurse 1 - General Ulcer Assessment Start: 11/07/21 08:41 Freq: Status: Active Protocol: ELENA Activity Type Activity Date Activity User E-Sign Co-Sign Detail Recorded Client Recorded Date Recorded By Document 11/07/21 08:41 RB [id number] 11/07/21 08:51 11/07/21 08:41 - Today's Visit Information Type of service Follow-up Visit (Physician/FUSE COILER ) Arrival Mode Ambulatory Transfer Assistance None Patient Identification Verified (Name & Yes ) Height and Weight Body Mass Index (BMI) 20.5 BMI Classification Normal Vital Signs Temperature (97.8 F-99.1 F) 97.7 F L Temperature Source Temporal Pulse Rate (60-100) 94 Pulse Location Monitor Respiratory Rate (12-18) 18 Respiratory rate source Observation Blood Pressure (90/60-120/80) 125/54 H Blood Pressure Mean (mm Hg) 77 Source Monitor Position Semi-Fowlers Blood Pressure Location Left Arm History Since Last Visit- (Skip if this is Patient's initial visit) Have you changed medications since your No last visit? Any new allergies or adverse reactions No Had a fall/change in ADL's that may No increase risk of falls Signs or symptoms of abuse and/or No neglect since last visit Have you been in the hospital since your No last visit? Has dressing in place as prescribed Yes Has compression in place as prescribed Yes Has offloadiing in place as prescribed No Experienced any changes in pain level or No management Left Footwear Regular Shoe Right Footwear Regular Shoe Pain Scale: 0-10 Numeric Is Patient Pain Free? Yes - Nurse 1 - General Ulcer Measurement Start: 11/07/21 08:41 Freq: Status: Active Protocol: Activity Type Activity Date Activity User E-Sign Co-Sign Detail Recorded Client Recorded Date Recorded By Document 11/07/21 08:41 [id number] 11/07/21 08:51 RB 11/07/21 08:41 Wound Center Nurse 1 #1- L MEDIAL LE cluster -Combined with other wound No -Current Size (cm) - Length 0.2 -Current Size (cm) - Width 0.2 -Current Size (cm) - Depth 0.3 -Total Square Cm 0.04 -Tunneling No -Undermining/Tunneling No -Circular Undermining No -Exudate Amt Medium -Exudate Type Serosanguineous -Wound Margin Distinct, Outline Attached -Granulation Amt Medium (34-66%) -Granulation Quality [place] -Slough/Fibrin Yes -Necrosis Amt Medium (34-66%) -Necrotic Tissue Type Adherent Slough -Structure Exposed N/A -Texture (Mima-wound Skin Appearance) Assessed, Scarring -Moisture (Mima-wound Skin Appearance) Assessed -Color (Mima-wound Skin Appearance) Assessed -Temperature (Mima-wound Skin No Abnormality Appearance) (Pt Warm) -Ulcer Cleansing Wound Cleanser -Foul Odor after Cleansing No -Anesthetic Used 4% Lidocaine Solution Lower Limb Edema Present Yes Left Calf (cm) 31.2 Left Ankle (cm) 19.5 11/07/21 08:50 Wound Center by Caryl Baugh pt saw and menezes procedure friday at 830am. today 3m coban removed LLE not active drainge noted Initialized on 11/07/21 08:50 - END OF NOTE YVETTE - Nurse 2 - General Ulcer CM Notes Start: 11/07/21 08:41 Freq: Status: Active Protocol: Activity Type Activity Date Activity User E-Sign Co-Sign Detail Recorded Client Recorded Date Recorded By Document 11/07/21 09:00 TENZIN [id number] 11/07/21 09:03 TENZIN 11/07/21 09:00 Wound Center Nurse 2 #1- L MEDIAL LE cluster -Time 09:00 -Correct Patient Yes -Correct Side, Site, Position Yes -Correct Procedure Yes -Procedure Performed Yes -Type of Procedure Debridement -Clinical Debridement Subcutaneous -Tissue Removed Subcutaneous -Post Debridement (cm) - Length 0.1 -Post Debridement (cm) - Width 0.1 -Post Debridement (cm) - Depth 0.2 -Total Square (Post) (cm) 0.01 -Area of Debridement (cm) - Length 0.1 -Area of Debridement (cm) - Width 0.1 -Total Square (Area) (cm) 0.01 -Tunneling No -Undermining/Tunneling No -Circular Undermining No -Wound/Ulcer Outcome Not Healed -Ulcer Cleansing Rinsed/ Irrigated with Saline -Foul Odor after Cleansing No -Bioengineered Tissue No -Bleeding Controlled with Pressure -Offloading No -Treatment Response Procedure Tolerated Well -Debridement - Subq, 1st 20sq cm Yes Pain Scale: 0-10 Numeric Is Patient Pain Free? Yes YVETTE - Nurse 3 - General Ulcer D/C NN Start: 11/07/21 08:41 Freq: Status: Active Protocol: Activity Type Activity Date Activity User E-Sign Co-Sign Detail Recorded Client Recorded Date Recorded By Document 11/07/21 09:08 TENZIN [id number] 11/07/21 09:09 TENZIN 11/07/21 09:08 Wound Care Nurse 3 #1- L MEDIAL LE cluster -Ulcer Cleansing Rinsed/ Irrigated with Saline -Foul Odor after Cleansing No -Primary Dressing Applied C Hydrogel ($) -Primary Dressing Covered/Secured with Dry Gauze, Secured with Tape Left -Compression Wrap Ino Wrap Pain Scale: 0-10 Numeric Is Patient Pain Free? Yes WC - Visit Discharge Discharge Condition Stable Ambulatory Status Ambulatory Transportation Private Auto Medication Reconcilliation completed & Yes provided to patient/care provider Clinical Summary of Care Provided Yes Assessment/Plan Assessment/Plan (1) Delayed wound healing: CODE(S): T14.8XXD - Other injury of unspecified body region, subsequent encounter (2) Ulcer of left lower extremity with fat layer exposed: CODE(S): L97.922 - Non-pressure chronic ulcer of unspecified part of left lower leg with fat layer exposed (3) Osteomyelitis: CODE(S): M86.9 - Osteomyelitis, unspecified (4) Venous insufficiency (chronic) (peripheral): CODE(S): I87.2 - Venous insufficiency (chronic) (peripheral) (5) Localized edema: CODE(S): R60.0 - Localized edema PLAN: I reviewed and discussed her case today. Debridement was performed today as noted in the clinical panel to the ulcer site. The following work up and care recommendations were made: Dressing: To change daily with hydrogel Wash: Antibacterial soap and water. Avoid soaking. To avoid bathtub bathing where her leg including her wound are submerged. I recommend she uses traditio nal antibacterial soap and water. Tissue growth optimization: If she does have a documented history of osteomyelitis that is chronic she may be a candidate for hyperbaric oxygen therapy. 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 Offload: To avoid direct pressure on the site. Vascular: She has nonpalpable pulses and lack of hair. She also has questionable claudication presentation. I recommend noninvasive vascular studies including MARI, segmental thigh and leg pressure, PVR, and systolic toe pressure. The results were reviewed and she has left biphasic waveforms, left MARI of 1.2, and left toe brachial index is 0.72. The segmental thigh and leg pressures were not obtained. There is not a difference of over 30 mmHg when compared to arm pressures. She is also advised to discontinue all tobacco products to optimize healing and limb salvage opportunities. Due to ongoing lack of healing, a vascular referral was provided for Dr. Rdz. She relates she is scheduled for intervention this friday and she actually missed this again. I advised her to get this rescheduled and her potential is very guarded at this time due to lack of compliance. Edema: There is mild to moderate edema; recently decreased. To wear Tubigrip for compression management. Compliance was discussed and necessary. She had Doppler with reflux exam performed and followed up with vascular specialist. Venous intervention was recommended. She had the first procedure performed 2 days ago and I recommend she proceed forward with the serial procedure recommendations. Ino wraps were applied today however if Dr. Rdz recommends other edema management I would defer to his recommendations. Infection: She does not have kevin purulent drainage today or erythema, streaking, or odor. To monitor for this. Culture was previously updated for mrsa pcr, aerobic and anearobic. She has a noted h/o MRSA growth. I recommend considering IV antibiotics due to her continued MRSA infections. She is also under the management of infectious disease specialist and continues IV antibiotics and has a PICC line in place. She is currently on a 6-week course of linezolid and this has been completed. no infection signs noted today. Pain: Controlled Host factors: She has significant delays in healing. We discussed tobacco cessation and how this impairs healing. She has some muscle wasting and delayed healing and nutritional supplementation would also be beneficial. Labs: Updated labs were recently updated including CBC, CMP, ESR, C-reactive protein, and hemoglobin A1c. No leukocytosis was noted. ESR 24. CRP 23.5. No gross abnormalities with CMP. A1c of 5.5%. Imaging: Left leg xrays were recently updated - there is a healed fracture in the mid third of the left tibia but apparently there is periosteal reaction and what appears to be chronic osteomyelitis with possibility of sinus tract. I answered all the patient's questions. To return to the wound healing center in 1 week or call sooner if the patient has any questions or concerns. Note: [employer] + speech recognition front office administrator software was used to create por tions of this document. Sound-alike and misspelled words, as well as other front office administrator errors may be contained in the documentation. The medical decision making level is moderate based on data including at least three of the following: review of prior external notes, review of a test, ordering a test, assessment requiring an independent historian. The medical decision making level is moderate. There is noted moderate risk of morbidity after considering this treatment plan and diagnostic data. Considerations were given to prescription management, decisions regarding surgical options, or social determinants of health.
[2021-11-21 10:28] VITALS: BP 135/66; PULSE 84; RESP 20; TEMP 36.4; BMI 20.5
--- NOTE | 2021-11-21 13:04 | PN.PCM_ITS ---
History of Present Illness Date of Service: 11/21/21 Chief Complaint: left leg ulcer History of Wound: This 61-year-old female was seen today for left leg ulcer. She denies fever, chill, nausea, vomiting, diarrhea. She tries to wear compression garment. She continues to smoke. She denies leg pain, redness, or odor. She denies trauma or recent increase in swelling. She went for consultation with vascular specialist, Dr. Rdz who recommended venous procedural intervention in [place]. She had initial intervention. She plans to undergo several procedures. She continues to smoke. She relates her leg swelling is decreased and there is also reduced ulcer size. Progress of Wound: Improved Objective Data Objective Data Vital Signs: Vital Signs Temp Pulse Resp BP 97.5 F L 84 20 H 135/66 H 11/21/21 10:28 11/21/21 10:28 11/21/21 10:28 11/21/21 10:28 Weight: 43.091 kg Body Mass Index (BMI) 20.5 Physical Exam Extremity Extremity Narrative: No calf tenderness Diminished pulses Muscle wasting noted Adjacent skin is atrophic and hairless Prior skin grafting surgical intervention site noted with cicatrix Decreased leg edema is significant today with ulcer size reduction including significant reduction in depth (1 mm) Skin Skin Narrative: no kevin purulence, no erythema, no streaking, no odor. mima ulcer decreased edema continued. There is resolved edema and periulcer inflammation. Neuro Neuro Narrative: lack of normal epicritic sensation via light touch is consistent with neuropathy status Debridement Note Debridement Note Wound debrided: Left leg Wound Grade/Stage: Type of Debridement: Excisional debridement Anesthesia Used: 4% Lidocaine Solution Depth: in the subcutaneous layer Percentage of wound debrided: 100 Instrument Used: #15 blade Tissue Removed: fibrous, devitalized subcutaneous, biofilm, slough Severity: Fat Layer Exposed Amount of bleeding with debridement: Mild Bleeding Controlled with: Pressure Patient tolerated procedure: Patient tolerated procedure well Post-Debridement Measurements and Additional Note: Post-Debridement Measurements/Treatment WC - Nurse 1 - General Ulcer Assessment Start: 11/07/21 08:41 Freq: Status: Active Protocol: [email or web address] Activity Type Activity Date Activity User E-Sign Co-Sign Detail Recorded Client Recorded Date Recorded By Document 11/07/21 08:41 RB [id number] 11/07/21 08:51 RB Document 11/21/21 10:28 DL [id number] 11/21/21 10:36 DL 11/07/21 11/21/21 08:41 10:28 - Today's Visit Information Type of service Follow-up Visit Follow-up Visit (Physician/TAG PRESS OPERATOR (Physician/TAG PRESS OPERATOR ) ) Arrival Mode Ambulatory Ambulatory Transfer Assistance None None Patient Identification Verified (Name & Yes Yes ) Patient Requires Transmission-Based No Precautions Height and Weight Body Mass Index (BMI) 20.5 20.5 BMI Classification Normal Normal Vital Signs Temperature (97.8 F-99.1 F) 97.7 F L 97.5 F L Temperature Source Temporal Temporal Pulse Rate (60-100) 94 84 Pulse Location Monitor Monitor Respiratory Rate (12-18) 18 20 H Respiratory rate source Observation Observation Blood Pressure (90/60-120/80) 125/54 H 135/66 H Blood Pressure Mean (mm Hg) 77 89 Source Monitor Monitor Position Semi-Fowlers Blood Pressure Location Left Arm History Since Last Visit- (Skip if this is Patient's initial visit) Have you changed medications since your No No last visit? Any new allergies or adverse reactions No No Had a fall/change in ADL's that may No No increase risk of falls Signs or symptoms of abuse and/or No No neglect since last visit Have you been in the hospital since your No No last visit? Has dressing in place as prescribed Yes Yes Has compression in place as prescribed Yes Yes Has offloadiing in place as prescribed No N/A Experienced any changes in pain level or No No management Left Footwear Regular Shoe Right Footwear Regular Shoe Pain Scale: 0-10 Numeric Is Patient Pain Free? Yes Yes - Nurse 1 - General Ulcer Measurement Start: 11/07/21 08:41 Freq: Status: Active Protocol: Activity Type Activity Date Activity User E-Sign Co-Sign Detail Recorded Client Recorded Date Recorded By Document 11/07/21 08:41 RB [id number] 11/07/21 08:51 RB Document 11/21/21 10:28 DL [id number] 11/21/21 10:36 DL 11/07/21 11/21/21 08:41 10:28 Wound Center Nurse 1 #1- L MEDIAL LE cluster -Combined with other wound No -Current Size (cm) - Length 0.2 0.1 -Current Size (cm) - Width 0.2 0.1 -Current Size (cm) - Depth 0.3 0.1 -Total Square Cm 0.04 0.01 -Photo Taken No -Tunneling No -Undermining/Tunneling No -Circular Undermining No -Exudate Amt Medium -Exudate Type Serosanguineous -Wound Margin Distinct, Thickened Outline Attached -Granulation Amt Medium (34-66%) None Present (0 %) -Granulation Quality [place] -Slough/Fibrin Yes -Necrosis Amt Medium (34-66%) Large (67-100%) -Necrotic Tissue Type Adherent Slough Adherent Slough -Structure Exposed N/A N/A -Texture (Mima-wound Skin Appearance) Assessed, Scarring Scarring -Moisture (Mima-wound Skin Appearance) Assessed No Abnormality -Color (Mima-wound Skin Appearance) Assessed No Abnormality -Temperature (Mima-wound Skin No Abnormality No Abnormality Appearance) (Pt Warm) (Pt Warm) -Tenderness on Palpation (Mima-wound No Skin Appearance) -Ulcer Cleansing Wound Cleanser Soap and Water -Foul Odor after Cleansing No No -Anesthetic Used 4% Lidocaine 4% Lidocaine Solution Solution Lower Limb Edema Present Yes Left Calf (cm) 31.2 Left Ankle (cm) 19.5 11/07/21 08:50 Wound Center by Caryl Baugh pt saw and menezes procedure friday at 830am. today 3m coban removed LLE not active drainge noted Initialized on 11/07/21 08:50 - END OF NOTE WC - Nurse 2 - General Ulcer CM Notes Start: 11/07/21 08:41 Freq: Status: Active Protocol: Activity Type Activity Date Activity User E-Sign Co-Sign Detail Recorded Client Recorded Date Recorded By Document 11/07/21 09:00 TENZIN [id number] 11/07/21 09:03 Document 11/21/21 10:40 TENZIN [id number] 11/21/21 10:43 TENZIN 11/07/21 11/21/21 09:00 10:40 Wound Center Nurse 2 #1- L MEDIAL LE cluster -Time 09:00 10:42 -Correct Patient Yes Yes -Correct Side, Site, Position Yes Yes -Correct Procedure Yes Yes -Procedure Performed Yes Yes -Type of Procedure Debridement Debridement -Clinical Debridement Subcutaneous Subcutaneous -Tissue Removed Subcutaneous Subcutaneous -Post Debridement (cm) - Length 0.1 0.3 -Post Debridement (cm) - Width 0.1 0.2 -Post Debridement (cm) - Depth 0.2 0.1 -Total Square (Post) (cm) 0.01 0.06 -Area of Debridement (cm) - Length 0.1 0.3 -Area of Debridement (cm) - Width 0.1 0.2 -Total Square (Area) (cm) 0.01 0.06 -Tunneling No No -Undermining/Tunneling No No -Circular Undermining No No -Wound/Ulcer Outcome Not Healed Not Healed -Ulcer Cleansing Rinsed/ Rinsed/ Irrigated with Irrigated with Saline Saline -Foul Odor after Cleansing No No -Bioengineered Tissue No No -Bleeding Controlled with Pressure Pressure -Offloading No No -Treatment Response Procedure Procedure Tolerated Well Tolerated Well -Debridement - Subq, 1st 20sq cm Yes Yes Pain Scale: 0-10 Numeric Is Patient Pain Free? Yes Yes - Nurse 3 - General Ulcer D/C NN Start: 11/07/21 08:41 Freq: Status: Active Protocol: Activity Type Activity Date Activity User E-Sign Co-Sign Detail Recorded Client Recorded Date Recorded By Document 11/07/21 09:08 [id number] 11/07/21 09:09 Document 11/21/21 10:44 [id number] 11/21/21 10:44 11/07/21 11/21/21 09:08 10:44 Wound Care Nurse 3 #1- L MEDIAL LE cluster -Ulcer Cleansing Rinsed/ Rinsed/ Irrigated with Irrigated with Saline Saline -Foul Odor after Cleansing No No -Primary Dressing Applied C Hydrogel ($) C Hydrogel ($) -Primary Dressing Covered/Secured with Dry Gauze, Dry Gauze, Secured with Secured with Tape Tape Left -Compression Wrap Ino Wrap Ino Wrap Pain Scale: 0-10 Numeric Is Patient Pain Free? Yes Yes - Visit Discharge Discharge Condition Stable Stable Ambulatory Status Ambulatory Ambulatory Transportation Private Auto Private Auto Medication Reconcilliation completed & Yes Yes provided to patient/care provider Clinical Summary of Care Provided Yes Yes Assessment/Plan Assessment/Plan (1) Delayed wound healing: CODE(S): T14.8XXD - Other injury of unspecified body region, subsequent encounter (2) Ulcer of left lower extremity with fat layer exposed: CODE(S): L97.922 - Non-pressure chronic ulcer of unspecified part of left lower leg with fat layer exposed (3) Osteomyelitis: CODE(S): M86.9 - Osteomyelitis, unspecified (4) Venous insufficiency (chronic) (peripheral): CODE(S): I87.2 - Venous insufficiency (chronic) (peripheral) (5) Localized edema: CODE(S): R60.0 - Localized edema PLAN: I reviewed and discussed her case today. Debridement was performed today as noted in the clinical panel to the ulcer site. The following work up and care recommendations were made: Dressing: To change daily with hydrogel. It is noted she likes using a silver product instead and that is also okay. She has recently been applying it to the healed ulcer proximal site and it is causing some skin irritation. She is advised to discontinue application to that site and to only focus on the open ulcer site. Wash: Antibacterial soap and water. Avoid soaking. To avoid bathtub bathing where her leg including her wound are submerged. I recommend she uses traditional antibacterial soap and water. Tissue growth optimization: If she does have a documented history of osteomyelitis that is chronic she may be a candidate for hyperbaric oxygen therapy. 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 Offload: To avoid direct pressure on the site. Vascular: She has nonpalpable pulses and lack of hair. She also has questionable claudication presentation. I recommend noninvasive vascular studies including MARI, segmental thigh and leg pressure, PVR, and systolic toe pressure. The results were reviewed and she has left biphasic waveforms, left MARI of 1.2, and left toe brachial index is 0.72. The segmental thigh and leg pressures were not obtained. There is not a difference of over 30 mmHg when compared to arm pressures. She is also advised to discontinue all tobacco products to optimize healing and limb salvage opportunities. Due to ongoing lack of healing, a vascular referral was provided for Dr. Rdz. She relates she is scheduled for intervention this friday and she actually missed this again. I advised her to get this rescheduled and her potential is very guarded at this time due to lack of compliance. Edema: There is mild to moderate edema; recently decreased. To wear Tubigrip for compression management. Compliance was discussed and necessary. She had Doppler with reflux exam performed and followed up with vascular specialist. Venous intervention was recommended. She had the first procedure performed and I recommend she proceed forward with the serial procedure recommendations. Ion wraps were applied today however if Dr. Rdz recommends other edema management I would defer to his recommendations. Infection: She does not have kevni purulent drainage today or erythema, streaking, or odor. To monitor for this. Culture was previously updated for mrsa pcr, aerobic and anearobic. She has a noted h/o MRSA growth. I recommend considering IV antibiotics due to her continued MRSA infections. She is also under the management of infectious disease specialist and continues IV antibiotics and has a PICC line in place. She is currently on a 6-week course of linezolid and this has been completed. no infection signs noted today. Pain: Controlled Host factors: She has significant delays in healing. We discussed tobacco cessation and how this impairs healing. She has some muscle wasting and delayed healing and nutritional supplementation would also be beneficial. Labs: Updated labs were recently updated including CBC, CMP, ESR, C-reactive protein, and hemoglobin A1c. No leukocytosis was noted. ESR 24. CRP 23.5. No gross abnormalities with CMP. A1c of 5.5%. Imaging: Left leg xrays were recently updated - there is a healed fracture in the mid third of the left tibia but apparently there is periosteal reaction and what appears to be chronic osteomyelitis with possibility of sinus tract. I answered all the patient's questions. To return to the wound healing center in 1 week or call sooner if the patient has any questions or concerns. Note: [employer] speech recognition electronic controls repairer supervisor software was used to create portions of this document. Sound-alike and misspelled words, as well as other electronic controls repairer supervisor errors may be contained in the documentation.
[2021-12-05 11:12] VITALS: BP 138/60; PULSE 87; TEMP 36.9; BMI 20.5
--- NOTE | 2021-12-05 13:48 | PN.PCM_ITS ---
History of Present Illness Date of Service: 12/05/21 Chief Complaint: left leg ulcer History of Wound: This 61-year-old female was seen today for left leg ulcer. She denies fever, chill, nausea, vomiting, diarrhea. She tries to wear compression garment. She continues to smoke. She denies leg pain, redness, or odor. She denies trauma or recent increase in swelling. She went for consultation with vascular specialist, Dr. Rdz who recommended venous procedural intervention in [place]. This is scheduled in the near future and she plans to attend. She had initial intervention. She relates her leg swelling is decreased and there is also reduced ulcer size. Progress of Wound: Improved Objective Data Objective Data Vital Signs: Vital Signs Temp Pulse Resp BP 98.5 F 87 20 H 138/60 H 12/05/21 11:12 12/05/21 11:12 11/21/21 10:28 12/05/21 11:12 Weight: 43.091 kg Body Mass Index (BMI) 20.5 Physical Exam Extremity Extremity Narrative: No calf tenderness Diminished pulses Muscle wasting noted Adjacent skin is atrophic and hairless Prior skin grafting surgical intervention site noted with cicatrix Decreased leg edema is significant today with ulcer size reduction including significant reduction in depth (1 mm) Skin Skin Narrative: no kevin purulence, no erythema, no streaking, no odor. mima ulcer decreased edema continued. There is resolved edema and periulcer inflammation. Neuro Neuro Narrative: lack of normal epicritic sensation via light touch is consistent with neuropathy status Debridement Note Debridement Note Wound debrided: Left leg Wound Grade/Stage: Type of Debridement: Excisional debridement Anesthesia Used: 4% Lidocaine Solution Depth: in the subcutaneous layer Percentage of wound debrided: 100 Instrument Used: #15 blade Tissue Removed: fibrous, devitalized subcutaneous, biofilm, slough Severity: Fat Layer Exposed Amount of bleeding with debridement: Mild Bleeding Controlled with: Pressure Patient tolerated procedure: Patient tolerated procedure well Post-Debridement Measurements and Additional Note: Post-Debridement Measurements/Treatment WC - Nurse 1 - General Ulcer Assessment Start: 11/07/21 08:41 Freq: Status: Active Protocol: [email or web address] Activity Type Activity Date Activity User E-Sign Co-Sign Detail Recorded Client Recorded Date Recorded By Document 11/07/21 08:41 RB [id number] 11/07/21 08:51 RB Document 11/21/21 10:28 DL [id number] 11/21/21 10:36 DL Document 12/05/21 11:12 KR [id number] 12/05/21 11:16 KR 11/07/21 11/21/21 12/05/21 08:41 10:28 11:12 - Today's Visit Information Type of service Follow-up Visit Follow-up Visit Follow-up Visit (Physician/DIETARY SERVER (Physician/DIETARY SERVER (Physician/DIETARY SERVER ) ) ) Arrival Mode Ambulatory Ambulatory Ambulatory Transfer Assistance None None Patient Identification Verified (Name & Yes Yes Yes ) Patient Requires Transmission-Based No Precautions Height and Weight Body Mass Index (BMI) 20.5 20.5 20.5 BMI Classification Normal Normal Normal Vital Signs Temperature (97.8 F-99.1 F) 97.7 F L 97.5 F L 98.5 F Temperature Source Temporal Temporal Temporal Pulse Rate (60-100) 94 84 87 Pulse Location Monitor Monitor Monitor Respiratory Rate (12-18) 18 20 H Respiratory rate source Observation Observation Blood Pressure (90/60-120/80) 125/54 H 135/66 H 138/60 H Blood Pressure Mean (mm Hg) 77 89 86 Source Monitor Monitor Monitor Position Semi-Fowlers Sitting Blood Pressure Location Left Arm Left Arm History Since Last Visit- (Skip if this is Patient's initial visit) Have you changed medications since your No No No last visit? Any new allergies or adverse reactions No No No Had a fall/change in ADL's that may No No No increase risk of falls Signs or symptoms of abuse and/or No No No neglect since last visit Have you been in the hospital since your No No No last visit? Has dressing in place as prescribed Yes Yes Yes Has compression in place as prescribed Yes Yes Yes Has offloadiing in place as prescribed No N/A N/A Experienced any changes in pain level or No No No management Left Footwear Regular Shoe Regular Shoe Right Footwear Regular Shoe Regular Shoe Pain Scale: 0-10 Numeric Is Patient Pain Free? Yes Yes Yes - Nurse 1 - General Ulcer Measurement Start: 11/07/21 08:41 Freq: Status: Active Protocol: Activity Type Activity Date Activity User E-Sign Co-Sign Detail Recorded Client Recorded Date Recorded By Document 11/07/21 08:41 RB [id number] 11/07/21 08:51 RB Document 11/21/21 10:28 DL [id number] 11/21/21 10:36 DL Document 12/05/21 11:12 KR [id number] 12/05/21 11:16 KR 11/07/21 11/21/21 12/05/21 08:41 10:28 11:12 Wound Center Nurse 1 #1- L MEDIAL LE cluster -Combined with other wound No -Current Size (cm) - Length 0.2 0.1 0.5 -Current Size (cm) - Width 0.2 0.1 0.5 -Current Size (cm) - Depth 0.3 0.1 0.1 -Total Square Cm 0.04 0.01 0.25 -Photo Taken No -Tunneling No -Undermining/Tunneling No -Circular Undermining No -Exudate Amt Medium Small -Exudate Type Serosanguineous Serosanguineous -Wound Margin Distinct, Thickened Distinct, Outline Outline Attached Attached -Granulation Amt Medium (34-66%) None Present (0 Medium (34-66%) %) -Granulation Quality [place] Red -Slough/Fibrin Yes -Necrosis Amt Medium (34-66%) Large (67-100%) Small (1-33%) -Necrotic Tissue Type Adherent Slough Adherent Slough Adherent Slough -Structure Exposed N/A N/A -Texture (Mima-wound Skin Appearance) Assessed, Scarring Assessed, Scarring Scarring -Moisture (Mima-wound Skin Appearance) Assessed No Abnormality No Abnormality, Assessed -Color (Mima-wound Skin Appearance) Assessed No Abnormality No Abnormality, Assessed -Temperature (Mima-wound Skin No Abnormality No Abnormality No Abnormality Appearance) (Pt Warm) (Pt Warm) (Pt Warm) -Tenderness on Palpation (Mima-wound No No Skin Appearance) -Ulcer Cleansing Wound Cleanser Soap and Water Rinsed/ Irrigated with Saline -Foul Odor after Cleansing No No No -Anesthetic Used 4% Lidocaine 4% Lidocaine 5% Lidocaine Solution Solution Gel Lower Limb Edema Present Yes Left Calf (cm) 31.2 Left Ankle (cm) 19.5 11/07/21 08:50 Wound Center by Caryl Baugh pt saw and menezes procedure friday at 830am. today 3m coban removed LLE not active drainge noted Initialized on 11/07/21 08:50 - END OF NOTE - Nurse 2 - General Ulcer CM Notes Start: 11/07/21 08:41 Freq: Status: Active Protocol: Activity Type Activity Date Activity User E-Sign Co-Sign Detail Recorded Client Recorded Date Recorded By Document 11/07/21 09:00 [id number] 11/07/21 09:03 Document 11/21/21 10:40 [id number] 11/21/21 10:43 Document 12/05/21 11:28 [id number] 12/05/21 11:30 11/07/21 11/21/21 12/05/21 09:00 10:40 11:28 Wound Center Nurse 2 #1- L MEDIAL LE cluster -Time 09:00 10:42 11:29 -Correct Patient Yes Yes Yes -Correct Side, Site, Position Yes Yes Yes -Correct Procedure Yes Yes Yes -Procedure Performed Yes Yes Yes -Type of Procedure Debridement Debridement Debridement -Clinical Debridement Subcutaneous Subcutaneous Subcutaneous -Tissue Removed Subcutaneous Subcutaneous Dermis -Post Debridement (cm) - Length 0.1 0.3 0.4 -Post Debridement (cm) - Width 0.1 0.2 0.3 -Post Debridement (cm) - Depth 0.2 0.1 0.2 -Total Square (Post) (cm) 0.01 0.06 0.12 -Area of Debridement (cm) - Length 0.1 0.3 0.4 -Area of Debridement (cm) - Width 0.1 0.2 0.3 -Total Square (Area) (cm) 0.01 0.06 0.12 -Tunneling No No No -Undermining/Tunneling No No No -Circular Undermining No No No -Wound/Ulcer Outcome Not Healed Not Healed Not Healed -Ulcer Cleansing Rinsed/ Rinsed/ Rinsed/ Irrigated with Irrigated with Irrigated with Saline Saline Saline -Foul Odor after Cleansing No No No -Bioengineered Tissue No No No -Bleeding Controlled with Pressure Pressure Pressure -Treatment Response Procedure Procedure Procedure Tolerated Well Tolerated Well Tolerated Well -Offloading No No No -Debridement - Subq, 1st 20sq cm Yes Yes Yes Pain Scale: 0-10 Numeric Is Patient Pain Free? Yes Yes No - Nurse 3 - General Ulcer D/C NN Start: 11/07/21 08:41 Freq: Status: Active Protocol: Activity Type Activity Date Activity User E-Sign Co-Sign Detail Recorded Client Recorded Date Recorded By Document 11/07/21 09:08 TENZIN [id number] 11/07/21 09:09 JF Document 11/21/21 10:44 TENZIN [id number] 11/21/21 10:44 JF Document 12/05/21 11:42 MALVIN [id number] 12/05/21 11:42 KR 11/07/21 11/21/21 12/05/21 09:08 10:44 11:42 Wound Care Nurse 3 #1- L MEDIAL LE cluster -Ulcer Cleansing Rinsed/ Rinsed/ Irrigated with Irrigated with Saline Saline -Foul Odor after Cleansing No No -Primary Dressing Applied C Hydrogel ($) C Hydrogel ($) C Hydrogel ($) -Primary Dressing Covered/Secured with Dry Gauze, Dry Gauze, Dry Gauze, Secured with Secured with Secured with Tape Tape Tape Left -Compression Wrap Ino Wrap Ino Wrap Ino Wrap Pain Scale: 0-10 Numeric Is Patient Pain Free? Yes Yes Yes WC - Visit Discharge Discharge Condition Stable Stable Stable Ambulatory Status Ambulatory Ambulatory Ambulatory Transportation Private Auto Private Auto Private Auto Accompanied by self Medication Reconcilliation completed & Yes Yes provided to patient/care provider Clinical Summary of Care Provided Yes Yes Assessment/Plan Assessment/Plan (1) Delayed wound healing: CODE(S): T14.8XXD - Other injury of unspecified body region, subsequent encounter (2) Ulcer of left lower extremity with fat layer exposed: CODE(S): L97.922 - Non-pressure chronic ulcer of unspecified part of left lower leg with fat layer exposed (3) Osteomyelitis: CODE(S): M86.9 - Osteomyelitis, unspecified (4) Venous insufficiency (chronic) (peripheral): CODE(S): I87.2 - Venous insufficiency (chronic) (peripheral) (5) Localized edema: CODE(S): R60.0 - Localized edema PLAN: I reviewed and discussed her case today. Debridement was performed today as noted in the clinical panel to the ulcer site. The following work up and care recommendations were made: Dressing: To change daily with hydrogel. Wash: Antibacterial soap and water. Avoid soaking. To avoid bathtub bathing where her leg including her wound are submerged. I recommend she uses traditional antibacterial soap and water. Tissue growth optimization: If she does have a documented history of osteom yelitis that is chronic she may be a candidate for hyperbaric oxygen therapy. 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 Offload: To avoid direct pressure on the site. Vascular: She has nonpalpable pulses and lack of hair. She also has questionable claudication presentation. I recommend noninvasive vascular studies including MARI, segmental thigh and leg pressure, PVR, and systolic toe pressure. The results were reviewed and she has left biphasic waveforms, left MARI of 1.2, and left toe brachial index is 0.72. The segmental thigh and leg pressures were not obtained. There is not a difference of over 30 mmHg when compared to arm pressures. She is also advised to discontinue all tobacco products to optimize healing and limb salvage opportunities. Due to ongoing lack of healing, a vascular referral was provided for Dr. Rdz. To follow-up as scheduled. Edema: There is mild to moderate edema; recently decreased. To wear Tubigrip for compression management. Compliance was discussed and necessary. She had Doppler with reflux exam performed and followed up with vascular specialist. Venous intervention was recommended. She had the first procedure performed and I recommend she proceed forward with the serial procedure recommendations. Ino wraps were applied today however if Dr. Rdz recommends other edema management I would defer to his recommendations. Infection: She does not have kevin purulent drainage today or erythema, streaking, or odor. To monitor for this. Culture was previously updated for mrsa pcr, aerobic and anearobic. She has a noted h/o MRSA growth. I recommend considering IV antibiotics due to her continued MRSA infections. She is also under the management of infectious disease specialist and continues IV antibiotics and has a PICC line in place. She is currently on a 6-week course of linezolid and this has been completed. no infection signs noted today. Pain: Controlled Host factors: She has significant delays in healing. We discussed tobacco cessation and how this impairs healing. She has some muscle wasting and delayed healing and nutritional supplementation would also be beneficial. Labs: Updated labs were recently updated including CBC, CMP, ESR, C-reactive protein, and hemoglobin A1c. No leukocytosis was noted. ESR 24. CRP 23.5. No gross abnormalities with CMP. A1c of 5.5%. Imaging: Left leg xrays were recently updated - there is a healed fracture in the mid third of the left tibia but apparently there is periosteal reaction and what appears to be chronic osteomyelitis with possibility of sinus tract. I answered all the patient's questions. To return to the wound healing center in 1 week or call sooner if the patient has any questions or concerns. Note: [employer] speech recognition stonecutter apprentice hand software was used to create portions of this document. Sound-alike and misspelled words, as well as other stonecutter apprentice hand errors may be contained in the documentation.
== END 2021-12-06 23:59 | disposition home or self-care (01) ==
LOC: WC 11:30
PROVIDERS: Referring Provider Podiatrist; Visit Provider Podiatrist
DX: L97.922 Non-pressure chronic ulcer of unspecified part of left lower leg with fat layer exposed (principal); M86.9 Osteomyelitis, unspecified; R60.0 Localized edema; I87.2 Venous insufficiency (chronic) (peripheral); F17.200 Nicotine dependence, unspecified, uncomplicated; T14.8XXD Other injury of unspecified body region, subsequent encounter; B95.62 Methicillin resistant Staphylococcus aureus infection as the cause of diseases classified elsewhere
CPT/HCPCS: 11042

== ENCOUNTER 2022-01-02 10:15 | Outpatient (RCR) | payer MEDICAID, SELFPAY ==
[2021-12-07 00:30] VITALS: BP 138/60; PULSE 87; RESP 20; TEMP 36.9; BMI 20.5
[2021-12-18 14:32] VITALS: BP 121/67; PULSE 93; RESP 16; TEMP 37.1; BMI 20.5
--- NOTE | 2021-12-18 15:03 | PCM.WC.PN ---
History of Present Illness Date of Service: 12/18/21 Chief Complaint: left leg ulcer History of Wound: This 61-year-old female was seen today for left leg ulcer. She denies fever, chill, nausea, vomiting, diarrhea. She tries to wear compression garment. She continues to smoke. She denies leg pain, redness, or odor. She denies trauma or recent increase in swelling. She went for consultation with vascular specialist, Dr. Rdz who recommended venous procedural intervention in [place]. She had initial intervention. She reports a follow-up ultrasound is scheduled within the next week and she plans to attend. She relates her leg swelling is increased yesterday because she was standing outside for over an hour. Progress of Wound: improving in quality Objective Data Objective Data Vital Signs: Vital Signs Temp Pulse Resp BP 98.7 F 93 16 121/67 H 12/18/21 14:32 12/18/21 14:32 12/18/21 14:32 12/18/21 14:32 Oxygen Delivery Method Room Air Weight: 43.091 kg Body Mass Index (BMI) 20.5 Physical Exam Extremity Extremity Narrative: No calf tenderness Diminished pulses Muscle wasting noted Adjacent skin is atrophic and hairless Prior skin grafting surgical intervention site noted with cicatrix Noted leg edema Skin Skin Narrative: no kevin purulence, no erythema, no streaking, no odor. mima ulcer decreased edema continued. There is resolved edema and periulcer inflammation. Neuro Neuro Narrative: lack of normal epicritic sensation via light touch is consistent with neuropathy status Debridement Note Debridement Note Wound debrided: left leg Wound Grade/Stage: Type of Debridement: Excisional debridement Anesthesia Used: 4% Lidocaine Solution Depth: in the subcutaneous layer Percentage of wound debrided: 100 Instrument Used: #15 blade Tissue Removed: fibrous, devitalized subcutaneous, biofilm, slough Severity: Fat Layer Exposed Amount of bleeding with debridement: Mild Bleeding Controlled with: Pressure Patient tolerated procedure: Patient tolerated procedure well Post-Debridement Measurements and Additional Note: Post-Debridement Measurements/Treatment WC - Nurse 1 - General Ulcer Assessment Start: 12/18/21 14:31 Freq: Status: Active Protocol: [email or web address] Activity Type Activity Date Activity User E-Sign Co-Sign Detail Recorded Client Recorded Date Recorded By Document 12/18/21 14:32 MW [id number] 12/18/21 14:38 MW 12/18/21 14:32 - Today's Visit Information Type of service Follow-up Visit (Physician/[employer] ) Arrival Mode Ambulatory Transfer Assistance None Accompanied by self Patient Identification Verified (Name & Yes ) Patient Requires Transmission-Based No Precautions Safety Precautions NA Height and Weight Body Mass Index (BMI) 20.5 BMI Classification Normal Vital Signs Temperature (97.8 F-99.1 F) 98.7 F Temperature Source Temporal Pulse Rate (60-100) 93 Respiratory Rate (12-18) 16 Respiratory rate source Observation Oxygen Delivery Method Room Air Blood Pressure (90/60-120/80) 121/67 H Blood Pressure Mean (mm Hg) 85 Source Monitor Position Sitting Blood Pressure Location Left Arm History Since Last Visit- (Skip if this is Patient's initial visit) Have you changed medications since your No last visit? Any new allergies or adverse reactions No Had a fall/change in ADL's that may No increase risk of falls Signs or symptoms of abuse and/or No neglect since last visit Have you been in the hospital since your No last visit? Has dressing in place as prescribed Yes Has compression in place as prescribed No Has offloadiing in place as prescribed N/A Experienced any changes in pain level or No management Left Footwear Regular Shoe Right Footwear Regular Shoe Pain Scale: 0-10 Numeric Is Patient Pain Free? Yes - Nurse 1 - General Ulcer Measurement Start: 12/18/21 14:31 Freq: Status: Active Protocol: Activity Type Activity Date Activity User E-Sign Co-Sign Detail Recorded Client Recorded Date Recorded By Document 12/18/21 14:32 MW [id number] 12/18/21 14:38 MW 12/18/21 14:32 Wound Center Nurse 1 #1- L MEDIAL LE cluster -Combined with other wound No -Current Size (cm) - Length 0.2 -Current Size (cm) - Width 0.2 -Current Size (cm) - Depth 0.1 -Total Square Cm 0.04 -Date of Last Picture (Recall this 12/18/21 field) -Photo Taken Yes -Epithelialization Small 1-33% -Tunneling No -Undermining/Tunneling No -Circular Undermining No -Exudate Amt Small -Exudate Type Serosanguineous -Wound Margin Flat & Intact -Granulation Amt Large (67-100%) -Granulation Quality [place] -Slough/Fibrin Yes -Necrosis Amt Small (1-33%) -Necrotic Tissue Type Adherent Slough -Structure Exposed N/A -Texture (Mima-wound Skin Appearance) Assessed, Localized Edema ,Scarring -Moisture (Mima-wound Skin Appearance) No Abnormality, Assessed -Color (Mima-wound Skin Appearance) No Abnormality, Assessed -Temperature (Mima-wound Skin No Abnormality Appearance) (Pt Warm) -Tenderness on Palpation (Mima-wound No Skin Appearance) -Ulcer Cleansing Rinsed/ Irrigated with Saline -Foul Odor after Cleansing No -Anesthetic Used 5% Lidocaine Gel Lower Limb Edema Present Yes Left Calf (cm) 33.0 Left Ankle (cm) 21.0 WC - Nurse 2 - General Ulcer CM Notes Start: 12/18/21 14:31 Freq: Status: Active Protocol: Activity Type Activity Date Activity User E-Sign Co-Sign Detail Recorded Client Recorded Date Recorded By Document 12/18/21 14:45 TENZIN [id number] 12/18/21 14:51 TENZIN 12/18/21 14:45 Wound Center Nurse 2 #1- L MEDIAL LE cluster -Time 14:50 -Correct Patient Yes -Correct Side, Site, Position Yes -Correct Procedure Yes -Procedure Performed Yes -Type of Procedure Debridement -Clinical Debridement Subcutaneous -Tissue Removed Subcutaneous -Post Debridement (cm) - Length 0.3 -Post Debridement (cm) - Width 0.2 -Post Debridement (cm) - Depth 0.5 -Total Square (Post) (cm) 0.06 -Area of Debridement (cm) - Length 0.3 -Area of Debridement (cm) - Width 0.2 -Total Square (Area) (cm) 0.06 -Tunneling No -Undermining/Tunneling No -Circular Undermining No -Wound/Ulcer Outcome Not Healed -Ulcer Cleansing Rinsed/ Irrigated with Saline -Foul Odor after Cleansing No -Bioengineered Tissue No -Bleeding Controlled with Pressure -Treatment Response Procedure Tolerated Well -Offloading No -Debridement - Subq, 1st 20sq cm Yes Pain Scale: 0-10 Numeric Is Patient Pain Free? Yes YVETTE - Nurse 3 - General Ulcer D/C NN Start: 12/18/21 14:31 Freq: Status: Active Protocol: Activity Type Activity Date Activity User E-Sign Co-Sign Detail Recorded Client Recorded Date Recorded By Document 12/18/21 14:51 [id number] 12/18/21 14:51 TENZIN 12/18/21 14:51 Wound Care Nurse 3 #1- L MEDIAL LE cluster -Ulcer Cleansing Rinsed/ Irrigated with Saline -Foul Odor after Cleansing No -Primary Dressing Applied C Hydrogel ($) -Primary Dressing Covered/Secured with Dry Gauze, Secured with Tape Left -Compression Wrap Ino Wrap Pain Scale: 0-10 Numeric Is Patient Pain Free? Yes WC - Visit Discharge Discharge Condition Stable Ambulatory Status Ambulatory Transportation Private Auto Medication Reconcilliation completed & Yes provided to patient/care provider Clinical Summary of Care Provided Yes Assessment/Plan Assessment/Plan (1) Delayed wound healing: CODE(S): T14.8XXD - Other injury of unspecified body region, subsequent encounter (2) Ulcer of left lower extremity with fat layer exposed: CODE(S): L97.922 - Non-pressure chronic ulcer of unspecified part of left lower leg with fat layer exposed (3) Osteomyelitis: CODE(S): M86.9 - Osteomyelitis, unspecified (4) Venous insufficiency (chronic) (peripheral): CODE(S): I87.2 - Venous insufficiency (chronic) (peripheral) (5) Localized edema: CODE(S): R60.0 - Localized edema PLAN: I reviewed and discussed her case today. Debridement was performed today as noted in the clinical panel to the ulcer site. The following work up and care recommendations were made: Dressing: To change daily with hydrogel. Wash: Antibacterial soap and water. Avoid soaking. To avoid bathtub bathing where her leg including her wound are submerged. I recommend she uses traditional antibacterial soap and water. Tissue growth optimization: If she does have a documented history of osteomyelitis that is chronic she may be a candidate for hyperbaric oxygen therapy. 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 Offload: To avoid direct pressure on the site. Vascular / edema: She has nonpalpable pulses and lack of hair. She also has questionable claudication presentation. I recommend noninvasive vascular studies including MARI, segmental thigh and leg pressure, PVR, and systolic toe pressure. The results were reviewed and she has left biphasic waveforms, left MARI of 1.2, and left toe brachial index is 0.72. The segmental thigh and leg pressures were not obtained. There is not a difference of over 30 mmHg when compared to arm pressures. She is also advised to discontinue all tobacco products to optimize healing and limb salvage opportunities. Due to ongoing lack of healing, a vascular referral was provided for Dr. Rdz. She started intervention and was advised to follow-up with her scheduled ultrasound as advised. Medical records will be requested. Her treatment is mainly for venous insufficiency at this time. There is mild to moderate edema. To wear Tubigrip for compression management. Compliance was discussed and necessary. She had Doppler with reflux exam performed and followed up with vascular specialist. Ino wraps were applied today however if Dr. Rdz recommends other edema management I would defer to his recommendations. Infection: She does not have kevin purulent drainage today or erythema, streaking, or odor. To monitor for this. Culture was previously updated for mrsa pcr, aerobic and anearobic. She has a noted h/o MRSA growth. I recommend considering IV antibiotics due to her continued MRSA infections. She is also under the management of infectious disease specialist and continues IV antibiotics and has a PICC line in place. She is currently on a 6-week course of linezolid and this has been completed. no infection signs noted today. Pain: Controlled Host factors: She has significant delays in healing. We discussed tobacco cessation and how this impairs healing. She has some muscle wasting and delayed healing and nutritional supplementation would also be beneficial. Labs: Updated labs were recently updated including CBC, CMP, ESR, C-reactive protein, and hemoglobin A1c. No leukocytosis was noted. ESR 24. CRP 23.5. No gross abnormalities with CMP. A1c of 5.5%. Imaging: Left leg xrays were recently updated - there is a healed fracture in the mid third of the left tibia but apparently there is periosteal reaction and what appears to be chronic osteomyelitis with possibility of sinus tract. I answered all the patient's questions. To return to the wound healing center in 1 week or call sooner if the patient has any questions or concerns. Note: [employer] speech recognition horticulture teacher software was used to create portions of this document. Sound-alike and misspelled words, as well as other horticulture teacher errors may be contained in the documentation.
[2021-12-26 09:22] VITALS: BP 128/68; PULSE 92; RESP 18; TEMP 35.9; BMI 20.5
--- NOTE | 2021-12-26 13:51 | PN.PCM_ITS ---
History of Present Illness Date of Service: 12/26/21 Chief Complaint: left leg ulcer History of Wound: This 61-year-old female was seen today for left leg ulcer. She denies fever, chill, nausea, vomiting, diarrhea. She tries to wear compression garment. She continues to smoke. She denies leg pain, redness, or odor. She denies trauma or recent increase in swelling. She went for consultation with vascular specialist, Dr. Rdz who recommended venous procedural intervention in [place]. She had initial intervention. She relates her leg swelling is increased yesterday because she was standing outside for over an hour again while talking to the neighbor and she also walked to [facility] which is about 1-1/2 blocks away. She did follow-up with vascular specialist who gave her a compression stocking order. She did not do this yet because she needs to get measured and will take over a week to get it set up. He continues to smoke. Last Friday which was approximately 4 days ago she reports she has some tissue buildup as in a scab and this was removed and resulted in a much larger wound with significant increase in drainage. She denies systemic illness. She denies specific trauma also. Progress of Wound: Worsening Objective Data Objective Data Vital Signs: Vital Signs Temp Pulse Resp BP 96.7 F L 92 18 128/68 H 12/26/21 09:22 12/26/21 09:22 12/26/21 09:22 12/26/21 09:22 Oxygen Delivery Method Room Air Weight: 43.091 kg Body Mass Index (BMI) 20.5 Physical Exam Extremity Extremity Narrative: No calf tenderness Diminished pulses Muscle wasting noted Adjacent skin is atrophic and hairless Prior skin grafting surgical intervention site noted with cicatrix Noted leg edema Skin Skin Narrative: no kevin purulence, no erythema, no streaking, no odor. mima ulcer increased edema continued. The ulcer size is significantly increased with a depth now of 0.9 cm with direct probe to bone. There is no undermining or maceration Neuro Neuro Narrative: lack of normal epicritic sensation via light touch is consistent with neuropathy status Debridement Note Debridement Note Wound debrided: Left leg Wound Grade/Stage: Type of Debridement: Excisional debridement Anesthesia Used: 4% Lidocaine Solution Depth: in the subcutaneous layer Percentage of wound debrided: 100 Instrument Used: #15 blade and - (misonix ultrasound debridement) Tissue Removed: fibrous, devitalized subcutaneous, biofilm, slough Severity: Fat Layer Exposed Amount of bleeding with debridement: Mild Bleeding Controlled with: Pressure Patient tolerated procedure: Patient tolerated procedure well Post-Debridement Measurements and Additional Note: Post-Debridement Measurements/Treatment - Nurse 1 - General Ulcer Assessment Start: 12/18/21 14:31 Freq: Status: Active Protocol: [email or web address] Activity Type Activity Date Activity User E-Sign Co-Sign Detail Recorded Client Recorded Date Recorded By Document 12/18/21 14:32 MW [id number] 12/18/21 14:38 MW Document 12/26/21 09:22 RB [id number] 12/26/21 09:25 RB 12/18/21 12/26/21 14:32 09:22 - Today's Visit Information Type of service Follow-up Visit Follow-up Visit (Physician/FENDER FINISHER (Physician/FENDER FINISHER ) ) Arrival Mode Ambulatory Ambulatory Transfer Assistance None None Accompanied by self Patient Identification Verified (Name & Yes Yes ) Patient Requires Transmission-Based No No Precautions Safety Precautions NA Height and Weight Body Mass Index (BMI) 20.5 20.5 BMI Classification Normal Normal Vital Signs Temperature (97.8 F-99.1 F) 98.7 F 96.7 F L Temperature Source Temporal Temporal Pulse Rate (60-100) 93 92 Pulse Location Monitor Respiratory Rate (12-18) 16 18 Respiratory rate source Observation Observation Oxygen Delivery Method Room Air Blood Pressure (90/60-120/80) 121/67 H 128/68 H Blood Pressure Mean (mm Hg) 85 88 Source Monitor Monitor Position Sitting Semi-Fowlers Blood Pressure Location Left Arm Left Arm History Since Last Visit- (Skip if this is Patient's initial visit) Have you changed medications since your No No last visit? Any new allergies or adverse reactions No No Had a fall/change in ADL's that may No No increase risk of falls Signs or symptoms of abuse and/or No No neglect since last visit Have you been in the hospital since your No No last visit? Has dressing in place as prescribed Yes Yes Has compression in place as prescribed No Yes Has offloadiing in place as prescribed N/A No Experienced any changes in pain level or No No management Left Footwear Regular Shoe Regular Shoe Right Footwear Regular Shoe Regular Shoe Pain Scale: 0-10 Numeric Is Patient Pain Free? Yes Yes WC - Nurse 1 - General Ulcer Measurement Start: 12/18/21 14:31 Freq: Status: Active Protocol: Activity Type Activity Date Activity User E-Sign Co-Sign Detail Recorded Client Recorded Date Recorded By Document 12/18/21 14:32 MW [id number] 12/18/21 14:38 MW Document 12/26/21 09:22 RB [id number] 12/26/21 09:25 RB 12/18/21 12/26/21 14:32 09:22 Wound Center Nurse 1 #1- L MEDIAL LE cluster -Combined with other wound No No -Current Size (cm) - Length 0.2 1.4 -Current Size (cm) - Width 0.2 1 -Current Size (cm) - Depth 0.1 0.6 -Total Square Cm 0.04 1.4 -Date of Last Picture (Recall this 12/18/21 field) -Photo Taken Yes -Epithelialization Small 1-33% -Tunneling No No -Undermining/Tunneling No No -Circular Undermining No No -Exudate Amt Small Medium -Exudate Type Serosanguineous Serosanguineous -Wound Margin Flat & Intact Distinct, Outline Attached -Granulation Amt Large (67-100%) Medium (34-66%) -Granulation Quality [place] -Slough/Fibrin Yes Yes -Necrosis Amt Small (1-33%) Medium (34-66%) -Necrotic Tissue Type Adherent Slough Adherent Slough -Structure Exposed N/A N/A -Texture (Mima-wound Skin Appearance) Assessed, Assessed, Localized Edema Scarring ,Scarring -Moisture (Mima-wound Skin Appearance) No Abnormality, Assessed Assessed -Color (Mima-wound Skin Appearance) No Abnormality, Assessed Assessed -Temperature (Mima-wound Skin No Abnormality No Abnormality Appearance) (Pt Warm) (Pt Warm) -Tenderness on Palpation (Mima-wound No No Skin Appearance) -Ulcer Cleansing Rinsed/ Wound Cleanser Irrigated with Saline -Foul Odor after Cleansing No No -Anesthetic Used 5% Lidocaine 4% Lidocaine Gel Solution Lower Limb Edema Present Yes Yes Left Calf (cm) 33.0 30 Left Ankle (cm) 21.0 19.2 WC - Nurse 2 - General Ulcer CM Notes Start: 12/18/21 14:31 Freq: Status: Active Protocol: Activity Type Activity Date Activity User E-Sign Co-Sign Detail Recorded Client Recorded Date Recorded By Document 12/18/21 14:45 [id number] 12/18/21 14:51 Document 12/26/21 09:32 [id number] 12/26/21 09:36 12/18/21 12/26/21 14:45 09:32 Wound Center Nurse 2 #1- L MEDIAL LE cluster -Time 14:50 09:33 -Correct Patient Yes Yes -Correct Side, Site, Position Yes Yes -Correct Procedure Yes Yes -Procedure Performed Yes Yes -Type of Procedure Debridement Debridement -Clinical Debridement Subcutaneous Subcutaneous -Tissue Removed Subcutaneous Subcutaneous -Post Debridement (cm) - Length 0.3 1.0 -Post Debridement (cm) - Width 0.2 1.0 -Post Debridement (cm) - Depth 0.5 0.9 -Total Square (Post) (cm) 0.06 1.00 -Area of Debridement (cm) - Length 0.3 1.0 -Area of Debridement (cm) - Width 0.2 1.0 -Total Square (Area) (cm) 0.06 1.00 -Tunneling No No -Undermining/Tunneling No No -Circular Undermining No No -Wound/Ulcer Outcome Not Healed Not Healed -Ulcer Cleansing Rinsed/ Rinsed/ Irrigated with Irrigated with Saline Saline -Foul Odor after Cleansing No No -Bioengineered Tissue No No -Bleeding Controlled with Pressure Pressure -Treatment Response Procedure Procedure Tolerated Well Tolerated Well -Offloading No No -Debridement - Subq, 1st 20sq cm Yes Yes Pain Scale: 0-10 Numeric Is Patient Pain Free? Yes Yes - Nurse 3 - General Ulcer D/C NN Start: 12/18/21 14:31 Freq: Status: Active Protocol: Activity Type Activity Date Activity User E-Sign Co-Sign Detail Recorded Client Recorded Date Recorded By Document 12/18/21 14:51 [id number] 12/18/21 14:51 Document 12/26/21 09:54 RB [id number] 12/26/21 09:55 RB 12/18/21 12/26/21 14:51 09:54 Wound Care Nurse 3 #1- L MEDIAL LE cluster -Ulcer Cleansing Rinsed/ Rinsed/ Irrigated with Irrigated with Saline Saline -Foul Odor after Cleansing No -Primary Dressing Applied C Hydrogel ($) Aquacel AG 2x2 -Primary Dressing Covered/Secured with Dry Gauze, Dry Gauze,Dry Secured with Gauze & Roll Tape Gauze,Secured with Tape -Aquacel AG 2x2 1 Left -Compression Wrap Ino Wrap -Tubular Bandage Double Layer -Size of Tubigrip Used Size D -Size D ($) 2 Treatment Response Procedure Tolerated Well Pain Scale: 0-10 Numeric Is Patient Pain Free? Yes Yes WC - Visit Discharge Discharge Condition Stable Stable Ambulatory Status Ambulatory Ambulatory Transportation Private Auto Private Auto Medication Reconcilliation completed & Yes provided to patient/care provider Clinical Summary of Care Provided Yes Yes Assessment/Plan Assessment/Plan (1) Delayed wound healing: CODE(S): T14.8XXD - Other injury of unspecified body region, subsequent encounter (2) Ulcer of left lower extremity with fat layer exposed: CODE(S): L97.922 - Non-pressure chronic ulcer of unspecified part of left lower leg with fat layer exposed (3) Osteomyelitis: CODE(S): M86.9 - Osteomyelitis, unspecified (4) Venous insufficiency (chronic) (peripheral): CODE(S): I87.2 - Venous insufficiency (chronic) (peripheral) (5) Localized edema: CODE(S): R60.0 - Localized edema PLAN: I reviewed and discussed her case today. Debridement was performed today as noted in the clinical panel to the ulcer site. The following work up and care recommendations were made: Dressing: To change daily with hydrogel. Wash: Antibacterial soap and water. Avoid soaking. To avoid bathtub bathing where her leg including her wound are submerged. I recommend she uses traditional antibacterial soap and water. Tissue growth optimization: If she does have a documented history of osteomyelitis that is chronic she may be a candidate for hyperbaric oxygen therapy. 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 Offload: To avoid direct pressure on the site. Vascular / edema: She has nonpalpable pulses and lack of hair. She also has questionable claudication presentation. I recommend noninvasive vascular studies including MARI, segmental thigh and leg pressure, PVR, and systolic toe pressure. The results were reviewed and she has left biphasic waveforms, left MARI of 1.2, and left toe brachial index is 0.72. The segmental thigh and leg pressures were not obtained. There is not a difference of over 30 mmHg when compared to arm pressures. She is also advised to discontinue all tobacco products to optimize healing and limb salvage opportunities. Due to ongoing lack of healing, a vascular referral was provided for Dr. Rdz. She started intervention and was advised to follow-up with her scheduled ultrasound as advised. Medical records will be requested. Her treatment is mainly for venous insufficiency at this time. There is mild to moderate edema. To wear Tubigrip for compression management; dispensed again today. Compliance was discussed and necessary. She had Doppler with reflux exam performed and followed up with vascular specialist. Ino wraps were applied today however if Dr. Rdz recommends other edema management with knee-high compression stockings to 20 to 30 mmHg. She already has a prescription provided by Dr. Rdz and did not get this yet. She was encouraged to proceed forward to prevent recurrence. Infection: She does not have kevin purulent drainage today or erythema, streaking, or odor. To monitor for this. Culture was previously updated for mrsa pcr, aerobic and anearobic. She has a noted h/o MRSA growth. I recommend considering IV antibiotics due to her continued MRSA infections. She is also under the management of infectious disease specialist and continues IV antibiotics and has a PICC line in place. She is currently on a 6-week course of linezolid and this has been completed. no infection signs noted today. Today, I am concerned about her exposed bone and significant increase in ulcer size and I ordered an x-ray to rule out any underlying bone pathology. Pain: Controlled Host factors: She has significant delays in healing. We discussed tobacco cessation and how this impairs healing. She has some muscle wasting and delayed healing and nutritional supplementation would also be beneficial. Labs: Updated labs were recently updated including CBC, CMP, ESR, C-reactive protein, and hemoglobin A1c. No leukocytosis was noted. ESR 24. CRP 23.5. No gross abnormalities with CMP. A1c of 5.5%. Imaging: Left leg xrays were recently updated - there is a healed fracture in the mid third of the left tibia but apparently there is periosteal reaction and what appears to be chronic osteomyelitis with possibility of sinus tract. I answered all the patient's questions. To return to the wound healing center in 1 week or call sooner if the patient has any questions or concerns. Note: [employer] speech recognition traffic division commanding officer software was used to create portions of this document. Sound-alike and misspelled words, as well as other traffic division commanding officer errors may be contained in the documentation. The medical decision making level is moderate based on data including at least three of the following: review of prior external notes, review of a test, ordering a test, assessment requiring an independent historian. The medical decision making level is moderate. There is noted moderate risk of morbidity after considering this treatment plan and diagnostic data. Considerations were given to prescription management, decisions regarding surgical options, or social determinants of health.
--- NOTE | 2022-01-01 09:25 | RAD_ITS ---
STUDY: X-RAY - LEFT TIBIA AND FIBULA REASON FOR EXAM: Female, 61 years old. Ulcer and open wound on leg. TECHNIQUE: 2 view(s) of the tibia and fibula were obtained. COMPARISON: 02/27/2021. FINDINGS: Osteopenia with healed fracture of the distal tibia and distal fibula with deformity. Soft tissue swelling at the fracture sites. No bone erosion. RAD/Tibia & Fibula 2 Views IMPRESSION: Stable post traumatic changes to the distal tibia and distal fibula. Soft tissue swelling with no bony erosion. Electronically Signed: Dmitriy Hudson MD at 11:06 EDT ,
[2022-01-02 10:17] VITALS: BP 133/60; PULSE 76; RESP 18; TEMP 36.3; BMI 20.5
--- NOTE | 2022-01-02 12:34 | PN.PCM_ITS ---
History of Present Illness Date of Service: 01/02/22 Chief Complaint: left leg ulcer History of Wound: This 61-year-old female was seen today for left leg ulcer. She denies fever, chill, nausea, vomiting, diarrhea. She tries to wear compression garment. She continues to smoke. She denies leg pain, redness, or odor. She denies trauma or recent increase in swelling. She went for consultation with vascular specialist, Dr. Rdz who recommended venous procedural intervention in [place]. She had initial intervention. She relates her leg swelling is increased yesterday because she was standing outside for over an hour again while talking to the neighbor and she also walked to [facility] which is about 1-1/2 blocks away. She did follow-up with vascular specialist who gave her a compression stocking order and she started using this. She continues to smoke and has vascular disease. She also has rheumatoid arthritis. Progress of Wound: Improving Objective Data Objective Data Vital Signs: Vital Signs Temp Pulse Resp BP 97.4 F L 76 18 133/60 H 01/02/22 10:17 01/02/22 10:17 01/02/22 10:17 01/02/22 10:17 Oxygen Delivery Method Room Air Weight: 43.091 kg Body Mass Index (BMI) 20.5 Physical Exam Extremity Extremity Narrative: No calf tenderness Diminished pulses Muscle wasting noted Adjacent skin is atrophic and hairless Prior skin grafting surgical intervention site noted with cicatrix Noted leg edema Skin Skin Narrative: no kevin purulence, no erythema, no streaking, no odor. mima ulcer increased edema continued. The ulcer size is significantly increased with a depth decreased. this is a cluster with a smaller proximal ulcer and a larger deeper distal ulcer site now with no long direct probe to bone. There is no undermining or maceration Neuro Neuro Narrative: lack of normal epicritic sensation via light touch is consistent with neuropathy status Debridement Note Debridement Note Wound debrided: leg x 2 , left Wound Grade/Stage: Type of Debridement: Excisional debridement Anesthesia Used: 4% Lidocaine Solution Depth: in the subcutaneous layer Percentage of wound debrided: 100 Instrument Used: #15 blade Tissue Removed: fibrous, devitalized subcutaneous, biofilm, slough Severity: Fat Layer Exposed Amount of bleeding with debridement: Mild Bleeding Controlled with: Pressure Patient tolerated procedure: Patient tolerated procedure well Post-Debridement Measurements and Additional Note: Post-Debridement Measurements/Treatment WC - Nurse 1 - General Ulcer Assessment Start: 12/18/21 14:31 Freq: Status: Active Protocol: ELENA Activity Type Activity Date Activity User E-Sign Co-Sign Detail Recorded Client Recorded Date Recorded By Document 12/18/21 14:32 MW [id number] 12/18/21 14:38 MW Document 12/26/21 09:22 RB [id number] 12/26/21 09:25 RB Document 01/02/22 10:17 DL [id number] 01/02/22 10:25 DL 12/18/21 12/26/21 01/02/22 14:32 09:22 10:17 WC - Today's Visit Information Type of service Follow-up Visit Follow-up Visit Follow-up Visit (Physician/VIROLOGY TEACHER (Physician/VIROLOGY TEACHER (Physician/VIROLOGY TEACHER ) ) ) Arrival Mode Ambulatory Ambulatory Ambulatory Transfer Assistance None None None Accompanied by self Patient Identification Verified (Name & Yes Yes Yes ) Patient Requires Transmission-Based No No Precautions Safety Precautions NA Height and Weight Body Mass Index (BMI) 20.5 20.5 20.5 BMI Classification Normal Normal Normal Vital Signs Temperature (97.8 F-99.1 F) 98.7 F 96.7 F L 97.4 F L Temperature Source Temporal Temporal Temporal Pulse Rate (60-100) 93 92 76 Pulse Location Monitor Monitor Respiratory Rate (12-18) 16 18 18 Respiratory rate source Observation Observation Observation Oxygen Delivery Method Room Air Blood Pressure (90/60-120/80) 121/67 H 128/68 H 133/60 H Blood Pressure Mean (mm Hg) 85 88 84 Source Monitor Monitor Monitor Position Sitting Semi-Fowlers Blood Pressure Location Left Arm Left Arm History Since Last Visit- (Skip if this is Patient's initial visit) Have you changed medications since your No No No last visit? Any new allergies or adverse reactions No No No Had a fall/change in ADL's that may No No No increase risk of falls Signs or symptoms of abuse and/or No No No neglect since last visit Have you been in the hospital since your No No No last visit? Has dressing in place as prescribed Yes Yes Yes Has compression in place as prescribed No Yes Yes Has offloadiing in place as prescribed N/A No Yes Experienced any changes in pain level or No No No management Left Footwear Regular Shoe Regular Shoe Right Footwear Regular Shoe Regular Shoe Pain Scale: 0-10 Numeric Is Patient Pain Free? Yes Yes Yes WC - Nurse 1 - General Ulcer Measurement Start: 12/18/21 14:31 Freq: Status: Active Protocol: Activity Type Activity Date Activity User E-Sign Co-Sign Detail Recorded Client Recorded Date Recorded By Document 12/18/21 14:32 MW [id number] 12/18/21 14:38 MW Document 12/26/21 09:22 RB [id number] 12/26/21 09:25 RB Document 01/02/22 10:17 DL [id number] 01/02/22 10:25 DL 12/18/21 12/26/21 01/02/22 14:32 09:22 10:17 Wound Center Nurse 1 #1- L inferior yoder -Combined with other wound No No -Current Size (cm) - Length 0.2 1.4 2.8 -Current Size (cm) - Width 0.2 1 0.9 -Current Size (cm) - Depth 0.1 0.6 0.8 -Total Square Cm 0.04 1.4 2.52 -Date of Last Picture (Recall this 12/18/21 field) -Photo Taken Yes -Epithelialization Small 1-33% -Tunneling No No -Tunneling Position (O'clock) 12 -Tunneling Distance (cm) 1.3 -Undermining/Tunneling No No -Circular Undermining No No -Exudate Amt Small Medium Medium -Exudate Type Serosanguineous Serosanguineous Yellow/Green -Wound Margin Flat & Intact Distinct, Distinct, Outline Outline Attached Attached -Granulation Amt Large (67-100%) Medium (34-66%) None Present (0 %) -Granulation Quality [place] -Slough/Fibrin Yes Yes -Necrosis Amt Small (1-33%) Medium (34-66%) Large (67-100%) -Necrotic Tissue Type Adherent Slough Adherent Slough Adherent Slough -Structure Exposed N/A N/A N/A -Texture (Mima-wound Skin Appearance) Assessed, Assessed, Scarring Localized Edema Scarring ,Scarring -Moisture (Mima-wound Skin Appearance) No Abnormality, Assessed Assessed -Color (Mima-wound Skin Appearance) No Abnormality, Assessed Hemosiderin Assessed Staining -Temperature (Mima-wound Skin No Abnormality No Abnormality No Abnormality Appearance) (Pt Warm) (Pt Warm) (Pt Warm) -Tenderness on Palpation (Mima-wound No No No Skin Appearance) -Ulcer Cleansing Rinsed/ Wound Cleanser Soap and Water Irrigated with Saline -Foul Odor after Cleansing No No No -Anesthetic Used 5% Lidocaine 4% Lidocaine 5% Lidocaine Gel Solution Gel Lower Limb Edema Present Yes Yes Left Calf (cm) 33.0 30 29.4 Left Ankle (cm) 21.0 19.2 19 WC - Nurse 2 - General Ulcer CM Notes Start: 12/18/21 14:31 Freq: Status: Active Protocol: Activity Type Activity Date Activity User E-Sign Co-Sign Detail Recorded Client Recorded Date Recorded By Document 12/18/21 14:45 [id number] 12/18/21 14:51 Document 12/26/21 09:32 [id number] 12/26/21 09:36 Document 01/02/22 10:36 [id number] 01/02/22 10:42 12/18/21 12/26/21 01/02/22 14:45 09:32 10:36 Wound Center Nurse 2 3-left superior leg -Time 10:38 -Correct Patient Yes -Correct Side, Site, Position Yes -Correct Procedure Yes -Procedure Performed Yes -Type of Procedure Debridement -Clinical Debridement Subcutaneous -Tissue Removed Dermis -Post Debridement (cm) - Length 0.7 -Post Debridement (cm) - Width 0.6 -Post Debridement (cm) - Depth 0.3 -Total Square (Post) (cm) 0.42 -Area of Debridement (cm) - Length 0.7 -Area of Debridement (cm) - Width 0.6 -Total Square (Area) (cm) 0.42 -Tunneling No -Undermining/Tunneling No -Circular Undermining No -Wound/Ulcer Outcome Not Healed -Ulcer Cleansing Rinsed/ Irrigated with Saline -Foul Odor after Cleansing No -Bioengineered Tissue No -Bleeding Controlled with NA,Pressure -Treatment Response Procedure Tolerated Well -Offloading No -Debridement - Subq, 1st 20sq cm No #1- L inferior yoder -Time 14:50 09:33 10:37 -Correct Patient Yes Yes Yes -Correct Side, Site, Position Yes Yes Yes -Correct Procedure Yes Yes Yes -Procedure Performed Yes Yes Yes -Type of Procedure Debridement Debridement Debridement -Clinical Debridement Subcutaneous Subcutaneous Subcutaneous -Tissue Removed Subcutaneous Subcutaneous Subcutaneous -Post Debridement (cm) - Length 0.3 1.0 0.7 -Post Debridement (cm) - Width 0.2 1.0 0.8 -Post Debridement (cm) - Depth 0.5 0.9 0.8 -Total Square (Post) (cm) 0.06 1.00 0.56 -Area of Debridement (cm) - Length 0.3 1.0 0.7 -Area of Debridement (cm) - Width 0.2 1.0 0.8 -Total Square (Area) (cm) 0.06 1.00 0.56 -Tunneling No No No -Undermining/Tunneling No No No -Circular Undermining No No No -Wound/Ulcer Outcome Not Healed Not Healed Not Healed -Ulcer Cleansing Rinsed/ Rinsed/ Rinsed/ Irrigated with Irrigated with Irrigated with Saline Saline Saline -Foul Odor after Cleansing No No No -Bioengineered Tissue No No No -Bleeding Controlled with Pressure Pressure Pressure -Treatment Response Procedure Procedure Procedure Tolerated Well Tolerated Well Tolerated Well -Offloading No No No -Debridement - Subq, 1st 20sq cm Yes Yes Yes Pain Scale: 0-10 Numeric Is Patient Pain Free? Yes Yes Yes - Nurse 3 - General Ulcer D/C NN Start: 12/18/21 14:31 Freq: Status: Active Protocol: Activity Type Activity Date Activity User E-Sign Co-Sign Detail Recorded Client Recorded Date Recorded By Document 12/18/21 14:51 [id number] 12/18/21 14:51 Document 12/26/21 09:54 RB [id number] 12/26/21 09:55 RB Document 01/02/22 10:45 [facility] [id number] 01/02/22 10:45 [facility] 12/18/21 12/26/21 01/02/22 14:51 09:54 10:45 Wound Care Nurse 3 3-left superior leg -Ulcer Cleansing Rinsed/ Irrigated with Saline -Foul Odor after Cleansing No -Primary Dressing Applied [facility] 4x4 -Primary Dressing Covered/Secured with Dry Gauze & Roll Gauze, Secured with Tape -Aquacel AG 4x4 1 #1- L inferior yoder -Ulcer Cleansing Rinsed/ Rinsed/ Rinsed/ Irrigated with Irrigated with Irrigated with Saline Saline Saline -Foul Odor after Cleansing No No -Primary Dressing Applied C Hydrogel ($) Aquacel AG 2x2 Aquacel AG 4x4 -Primary Dressing Covered/Secured with Dry Gauze, Dry Gauze,Dry Dry Gauze & Secured with Gauze & Roll Roll Gauze, Tape Gauze,Secured Secured with with Tape Tape -Aquacel AG 4x4 0 -Aquacel AG 2x2 1 Left -Compression Wrap Ino Wrap -Tubular Bandage Double Layer -Size of Tubigrip Used Size D -Size D ($) 2 -Other own stocking applied Treatment Response Procedure Procedure Tolerated Well Tolerated Well Pain Scale: 0-10 Numeric Is Patient Pain Free? Yes Yes Yes WC - Visit Discharge Discharge Condition Stable Stable Stable Ambulatory Status Ambulatory Ambulatory Ambulatory Transportation Private Auto Private Auto Medication Reconcilliation completed & Yes provided to patient/care provider Clinical Summary of Care Provided Yes Yes Assessment/Plan Assessment/Plan (1) Delayed wound healing: CODE(S): T14.8XXD - Other injury of unspecified body region, subsequent encounter (2) Ulcer of left lower extremity with fat layer exposed: CODE(S): L97.922 - Non-pressure chronic ulcer of unspecified part of left lower leg with fat layer exposed (3) Osteomyelitis: CODE(S): M86.9 - Osteomyelitis, unspecified (4) Venous insufficiency (chronic) (peripheral): CODE(S): I87.2 - Venous insufficiency (chronic) (peripheral) (5) Localized edema: CODE(S): R60.0 - Localized edema (6) Rheumatoid arthritis: CODE(S): M06.9 - Rheumatoid arthritis, unspecified PLAN: I reviewed and discussed her case today. Debridement was performed today as noted in the clinical panel to the ulcer site. The following work up and care recommendations were made: Dressing: To change daily with hydrogel. Wash: Antibacterial soap and water. Avoid soaking. To avoid bathtub bathing where her leg including her wound are submerged. I recommend she uses traditional antibacterial soap and water. Tissue growth optimization: If she does have a documented history of osteomyelitis that is chronic she may be a candidate for hyperbaric oxygen therapy. 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 Offload: To avoid direct pressure on the site. Vascular / edema: She has nonpalpable pulses and lack of hair. She also has questionable claudication presentation. I recommend noninvasive vascular studies including MARI, segmental thigh and leg pressure, PVR, and systolic toe pressure. The results were reviewed and she has left biphasic waveforms, left MARI of 1.2, and left toe brachial index is 0.72. The segmental thigh and leg pressures were not obtained. There is not a difference of over 30 mmHg when compared to arm pressures. She is also advised to discontinue all tobacco products to optimize healing and limb salvage opportunities. Due to ongoing lack of healing, a vascular referral was provided for Dr. Rdz. She started intervention and was advised to follow-up with her scheduled ultrasound as advised. Medical records will be requested. Her treatment is mainly for venous insufficiency at this time. There is mild to moderate edema. To wear Tubigrip for compression management; dispensed again today. Compliance was discussed and necessary. She had Doppler with reflux exam performed and followed up with vascular specialist. Ino wraps were applied today however if Dr. Rdz recommends other edema management with knee-high compression stockings to 20 to 30 mmHg. She already has a prescription provided by Dr. Rdz and did not get this yet. She was encouraged to proceed forward to prevent recurrence. Infection: She does not have kevin purulent drainage today or erythema, streaking, or odor. To monitor for this. Culture was previously updated for mrsa pcr, aerobic and anearobic. She has a noted h/o MRSA growth. I recommend considering IV antibiotics due to her continued MRSA infections. She is also under the management of infectious disease specialist and continues IV antibio tics and has a PICC line in place. She is currently on a 6-week course of linezolid and this has been completed. no infection signs noted today. Today, I am concerned about her exposed bone and significant increase in ulcer size and I ordered an x-ray to rule out any underlying bone pathology. She obtained the 2 leg x-rays on which did not demonstrate any osseous destruction, foreign body or soft tissue emphysema or periosteal reaction. Pain: Controlled Host factors: She has significant delays in healing. We discussed tobacco cessation and how this impairs healing. She has some muscle wasting and delayed healing and nutritional supplementation would also be beneficial. She has rheumatoid arthritis and understands this may also delay her healing. Labs: Updated labs were recently updated including CBC, CMP, ESR, C-reactive protein, and hemoglobin A1c. No leukocytosis was noted. ESR 24. CRP 23.5. No gross abnormalities with CMP. A1c of 5.5%. Imaging: Left leg xrays were recently updated - there is a healed fracture in the mid third of the left tibia but apparently there is periosteal reaction and what appears to be chronic osteomyelitis with possibility of sinus tract. I answered all the patient's questions. To return to the wound healing center in 1 week or call sooner if the patient has any questions or concerns. Note: Answer.To speech recognition mica splitter software was used to create portions of this document. Sound-alike and misspelled words, as well as other mica splitter errors may be contained in the documentation. The medical decision making level is limited based on data including the review of prior external notes, review of a prior test, or ordering a test. The medical decision making level is low. There is noted low risk of morbidity after considering this treatment plan and diagnostic data.
== END 2022-01-05 23:59 | disposition home or self-care (01) ==
LOC: WC 10:15
PROVIDERS: Referring Provider Podiatrist; Visit Provider Podiatrist
DX: I87.2 Venous insufficiency (chronic) (peripheral) (principal); L97.922 Non-pressure chronic ulcer of unspecified part of left lower leg with fat layer exposed; M06.9 Rheumatoid arthritis, unspecified; M86.9 Osteomyelitis, unspecified; F17.200 Nicotine dependence, unspecified, uncomplicated; R60.0 Localized edema; T14.8XXD Other injury of unspecified body region, subsequent encounter
CPT/HCPCS: 11042; 73590

== ENCOUNTER 2022-01-30 09:30 | Outpatient (RCR) | payer MEDICAID, SELFPAY ==
[2022-01-06 00:29] VITALS: BP 133/60; PULSE 76; RESP 18; TEMP 36.3; BMI 20.5
[2022-01-09 14:32] VITALS: BP 140/79; PULSE 100; RESP 20; TEMP 36.4; BMI 20.5
--- NOTE | 2022-01-09 15:51 | PN.PCM_ITS ---
History of Present Illness Date of Service: 01/09/22 Chief Complaint: left leg ulcer History of Wound: This 61-year-old female was seen today for left leg ulcer. She denies fever, chill, nausea, vomiting, diarrhea. She tries to wear compression garment. She continues to smoke. She denies leg pain, redness, or odor. She denies trauma or recent increase in swelling. She went for consultation with vascular specialist, Dr. Rdz who recommended venous procedural intervention in [place]. She had initial intervention. She relates her leg swelling is increased this morning because she has been very active. She did follow-up with vascular specialist who gave her a compression stocking order and she started using this. She continues to smoke and has vascular disease; heavy smoke odor is noted this afternoon. She also has rheumatoid arthritis. Progress of Wound: Stable Objective Data Objective Data Vital Signs: Vital Signs Temp Pulse Resp BP 97.6 F L 100 20 H 140/79 H 01/09/22 14:32 01/09/22 14:32 01/09/22 14:32 01/09/22 14:32 Weight: 43.091 kg Body Mass Index (BMI) 20.5 Physical Exam Extremity Extremity Narrative: No calf tenderness (negative Winston and Avendano sign, no warmth or calor) Diminished pulses Muscle wasting noted Adjacent skin is atrophic and hairless Prior skin grafting surgical intervention site noted with cicatrix Noted leg edema, increased today Skin Skin Narrative: no kevin purulence, no erythema, no streaking, no odor. mima ulcer increased edema continued. The ulcer size is significantly increased with a depth decreased. this is a cluster with a smaller proximal ulcer and a larger deeper distal ulcer site now with no long direct probe to bone. There is no undermining or maceration Neuro Neuro Narrative: lack of normal epicritic sensation via light touch is consistent with neuropathy status Debridement Note Debridement Note Wound debrided: Left leg cluster Wound Grade/Stage: Type of Debridement: Excisional debridement Anesthesia Used: 4% Lidocaine Solution Depth: in the subcutaneous layer Percentage of wound debrided: 100 Instrument Used: #15 blade Tissue Removed: fibrous, devitalized subcutaneous, biofilm, slough Severity: Fat Layer Exposed Amount of bleeding with debridement: Mild Bleeding Controlled with: Pressure Patient tolerated procedure: Patient tolerated procedure well Post-Debridement Measurements and Additional Note: Post-Debridement Measurements/Treatment WC - Nurse 1 - General Ulcer Assessment Start: 01/09/22 14:32 Freq: Status: Active Protocol: ELENA Activity Type Activity Date Activity User E-Sign Co-Sign Detail Recorded Client Recorded Date Recorded By Document 01/09/22 14:32 DL [id number] 01/09/22 14:42 DL 01/09/22 14:32 WC - Today's Visit Information Type of service 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 ) Arrival Mode Cane Transfer Assistance None Patient Identification Verified (Name & Yes ) Patient Requires Transmission-Based No Precautions Finger Stick Blood Sugar(mg/dl) (if no tchecked indicated): Blood Sugar Stated by Patient Height and Weight Body Mass Index (BMI) 20.5 BMI Classification Normal Vital Signs Temperature (97.8 F-99.1 F) 97.6 F L Temperature Source Temporal Pulse Rate (60-100) 100 Pulse Location Monitor Respiratory Rate (12-18) 20 H Respiratory rate source Observation Blood Pressure (90/60-120/80) 140/79 H Blood Pressure Mean (mm Hg) 99 Source Monitor History Since Last Visit- (Skip if this is Patient's initial visit) Have you changed medications since your No last visit? Any new allergies or adverse reactions No Had a fall/change in ADL's that may No increase risk of falls Signs or symptoms of abuse and/or No neglect since last visit Have you been in the hospital since your No last visit? Has dressing in place as prescribed Yes Has compression in place as prescribed Yes Has offloadiing in place as prescribed N/A Experienced any changes in pain level or No management Pain Scale: 0-10 Numeric Is Patient Pain Free? Yes - Nurse 1 - General Ulcer Measurement Start: 01/09/22 14:32 Freq: Status: Active Protocol: Activity Type Activity Date Activity User E-Sign Co-Sign Detail Recorded Client Recorded Date Recorded By Document 01/09/22 14:32 ELIZABETH [id number] 01/09/22 14:42 DL 01/09/22 14:32 Wound Center Nurse 1 3-left superior leg -Current Size (cm) - Length 0.2 -Current Size (cm) - Width 0.2 -Current Size (cm) - Depth 0.2 -Total Square Cm 0.04 -Photo Taken No -Exudate Amt Small -Exudate Type Serosanguineous -Wound Margin Distinct, Outline Attached -Granulation Amt None Present (0 %) -Necrosis Amt Small (1-33%) -Necrotic Tissue Type Adherent Slough -Structure Exposed N/A -Texture (Mima-wound Skin Appearance) Scarring -Moisture (Mima-wound Skin Appearance) No Abnormality -Color (Mima-wound Skin Appearance) Hemosiderin Staining -Temperature (Mima-wound Skin No Abnormality Appearance) (Pt Warm) -Tenderness on Palpation (Mima-wound No Skin Appearance) -Ulcer Cleansing Soap and Water -Foul Odor after Cleansing No -Anesthetic Used 5% Lidocaine Gel #1- L inferior yoder -Current Size (cm) - Length 0.5 -Current Size (cm) - Width 0.4 -Current Size (cm) - Depth 0.3 -Total Square Cm 0.20 -Exudate Amt Medium -Exudate Type Serosanguineous -Wound Margin Distinct, Outline Attached -Granulation Amt None Present (0 %) -Necrosis Amt Small (1-33%) -Necrotic Tissue Type Adherent Slough -Structure Exposed N/A -Texture (Mima-wound Skin Appearance) Scarring -Moisture (Mima-wound Skin Appearance) Dry/Scaly -Color (Mima-wound Skin Appearance) Hemosiderin Staining -Temperature (Mima-wound Skin No Abnormality Appearance) (Pt Warm) -Tenderness on Palpation (Mima-wound No Skin Appearance) -Ulcer Cleansing Soap and Water -Foul Odor after Cleansing No -Anesthetic Used 5% Lidocaine Gel Left Calf (cm) 31 Left Ankle (cm) 20.4 WC - Nurse 2 - General Ulcer CM Notes Start: 01/09/22 14:32 Freq: Status: Active Protocol: Activity Type Activity Date Activity User E-Sign Co-Sign Detail Recorded Client Recorded Date Recorded By Document 01/09/22 14:52 TENZIN [id number] 01/09/22 14:59 TENZIN 01/09/22 14:52 Wound Center Nurse 2 3-left superior leg -Time 14:53 -Correct Patient Yes -Correct Side, Site, Position Yes -Correct Procedure Yes -Procedure Performed Yes -Type of Procedure Debridement -Clinical Debridement Subcutaneous -Tissue Removed Subcutaneous -Post Debridement (cm) - Length 0.3 -Post Debridement (cm) - Width 0.2 -Post Debridement (cm) - Depth 0.2 -Total Square (Post) (cm) 0.06 -Area of Debridement (cm) - Length 0.3 -Area of Debridement (cm) - Width 0.2 -Total Square (Area) (cm) 0.06 -Tunneling No -Undermining/Tunneling No -Circular Undermining No -Wound/Ulcer Outcome Not Healed -Ulcer Cleansing Rinsed/ Irrigated with Saline -Foul Odor after Cleansing No -Bioengineered Tissue No -Bleeding Controlled with Pressure -Treatment Response Procedure Tolerated Well -Offloading No -Debridement - Subq, 1st 20sq cm Yes #1- L inferior yoder -Time 14:57 -Correct Patient Yes -Correct Side, Site, Position Yes -Correct Procedure Yes -Procedure Performed Yes -Type of Procedure Debridement -Clinical Debridement Subcutaneous -Tissue Removed Subcutaneous -Post Debridement (cm) - Length 0.5 -Post Debridement (cm) - Width 0.5 -Post Debridement (cm) - Depth 0.3 -Total Square (Post) (cm) 0.25 -Area of Debridement (cm) - Length 0.5 -Area of Debridement (cm) - Width 0.5 -Total Square (Area) (cm) 0.25 -Tunneling No -Circular Undermining No -Wound/Ulcer Outcome Not Healed -Ulcer Cleansing Rinsed/ Irrigated with Saline -Foul Odor after Cleansing No -Bioengineered Tissue No -Bleeding Controlled with Pressure -Treatment Response Procedure Tolerated Well -Offloading No -Debridement - Subq, 1st 20sq cm No Pain Scale: 0-10 Numeric Is Patient Pain Free? Yes WC - Nurse 3 - General Ulcer D/C NN Start: 01/09/22 14:32 Freq: Status: Active Protocol: Activity Type Activity Date Activity User E-Sign Co-Sign Detail Recorded Client Recorded Date Recorded By Document 01/09/22 15:01 [facility] [id number] 01/09/22 15:03 [facility] 01/09/22 15:01 Wound Care Nurse 3 3-left superior leg -Ulcer Cleansing Rinsed/ Irrigated with Saline -Foul Odor after Cleansing No -Primary Dressing Applied Aquacel AG 2x2 -Primary Dressing Covered/Secured with Dry Gauze -Other Covering 3M, DRSG PER [place] [employer] -Aquacel AG 2x2 1 #1- L inferior yoder -Ulcer Cleansing Rinsed/ Irrigated with Saline -Foul Odor after Cleansing No -Primary Dressing Applied Aquacel AG 2x2 -Primary Dressing Covered/Secured with Dry Gauze -Other Covering 3M, DRSG PER [place] [employer] -Aquacel AG 2x2 0 Left -Multi-Layered Wrap Application Multi-Layer Comp - Left ($) Treatment Response Procedure Tolerated Well Pain Scale: 0-10 Numeric Is Patient Pain Free? Yes WC - Visit Discharge Discharge Condition Stable Ambulatory Status Ambulatory Transportation Private Auto Assessment/Plan Assessment/Plan (1) Delayed wound healing: CODE(S): T14.8XXD - Other injury of unspecified body region, subsequent encounter (2) Ulcer of left lower extremity with fat layer exposed: CODE(S): L97.922 - Non-pressure chronic ulcer of unspecified part of left lower leg with fat layer exposed (3) Osteomyelitis: CODE(S): M86.9 - Osteomyelitis, unspecified (4) Venous insufficiency (chronic) (peripheral): CODE(S): I87.2 - Venous insufficiency (chronic) (peripheral) (5) Localized edema: CODE(S): R60.0 - Localized edema (6) Rheumatoid arthritis: CODE(S): M06.9 - Rheumatoid arthritis, unspecified (7) Tobacco use disorder: CODE(S): F17.200 - Nicotine dependence, unspecified, uncomplicated PLAN: I reviewed and discussed her case today. Debridement was performed today as noted in the clinical panel to the ulcer site. The following work up and care recommendations were made: Dressing: To change daily with hydrogel. Wash: Antibacterial soap and water. Avoid soaking. To avoid bathtub bathing where her leg including her wound are submerged. I recommend she uses traditional antibacterial soap and water. Tissue growth optimization: If she does have a documented history of osteomyelitis that is chronic she may be a candidate for hyperbaric oxygen therapy. 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 Offload: To avoid direct pressure on the site. Vascular / edema: She has nonpalpable pulses and lack of hair. She also has questionable claudication presentation. I recommend noninvasive vascular studies including MARI, segmental thigh and leg pressure, PVR, and systolic toe pressure. The results were reviewed and she has left biphasic waveforms, left MARI of 1.2, and left toe brachial index is 0.72. The segmental thigh and leg pressures were not obtained. There is not a difference of over 30 mmHg when compared to arm pressures. She is also advised to discontinue all tobacco products to optimize healing and limb salvage opportunities. Due to ongoing lack of healing, a vascular referral was provided for Dr. Rdz. She started intervention and was advised to follow-up with her scheduled ultrasound as advised. Medical records have been reviewed and additional interventions not currently planned. Her treatment is mainly for venous insufficiency at this time. There is mild to moderate edema. I recommend 3M 2L multilayer compression dressings with the help of nursing dressing changes. This was applied today and she was assisted in scheduling transportation to return to the facility for routine care. Infection: She does not have kevin purulent drainage today or erythema, streaking, or odor. To monitor for this. Culture was previously updated for mrsa pcr, aerobic and anearobic. She has a noted h/o MRSA growth. I recommend considering IV antibiotics due to her continued MRSA infections. She is also under the management of infectious disease specialist and continues IV antibiotics and has a PICC line in place. She is currently on a 6-week course of linezolid and this has been completed. no infection signs noted today. Today, I am concerned about her exposed bone and significant increase in ulcer size and I ordered an x-ray to rule out any underlying bone pathology. She obtained the 2 leg x-rays on which did not demonstrate any osseous destruction, foreign body or soft tissue emphysema or periosteal reaction. Pain: Controlled Host factors: She has significant delays in healing. We discussed tobacco cessation and how this impairs healing. She has some muscle wasting and delayed healing and nutritional supplementation would also be beneficial. She has rheumatoid arthritis and understands this may also delay her healing. She was urged to reduce smoking. Her outcome prognosis is poor with continued tobacco use. Labs: Updated labs were recently updated including CBC, CMP, ESR, C-reactive protein, and hemoglobin A1c. No leukocytosis was noted. ESR 24. CRP 23.5. No gross abnormalities with CMP. A1c of 5.5%. Imaging: Left leg xrays were recently updated - there is a healed fracture in the mid third of the left tibia but apparently there is periosteal reaction and what appears to be chronic osteomyelitis with possibility of sinus tract. I answered all the patient's questions. To return to the wound healing center in 1 week or call sooner if the patient has any questions or concerns. Note: Keynoir speech recognition direct selling counselor software was used to create portions of this document. Sound-alike and misspelled words, as well as other direct selling counselor errors may be contained in the documentation. 11 minutes was spent on this encounter. This included face to face and non face to face care including preparing for the visit, reviewing the history, performing the exam, counseling and providing education to the patient, family, or caregiver, ordering medications/test/ procedures if indicated as documented, communicating with other healthcare providers, documenting information in the medical record, interpreting / sharing this information when indicated as documented, and care coordination.
[2022-01-14 09:30] VITALS: BP 122/63; PULSE 69; TEMP 35.7; BMI 20.5
--- NOTE | 2022-01-14 09:34 | WC ---
PT REPORTS LUMP IN LEFT AXILLA. She doesn't want to have it checked out before she gets wounds healed on L leg. I told her how extremely important it is to get checked out especially in that location. She also has concerns about hypoglycemia. I advised an appt. with PCP
[2022-01-16 10:16] VITALS: BP 149/76; PULSE 86; RESP 18; TEMP 36.3; BMI 20.5
--- NOTE | 2022-01-16 16:00 | PN.PCM_ITS ---
History of Present Illness Date of Service: 01/16/22 Chief Complaint: left leg ulcer History of Wound: This 61-year-old female was seen today for left leg ulcer. She denies fever, chill, nausea, vomiting, diarrhea. She tries to wear compression garment. She continues to smoke. She denies leg pain, redness, or odor. She denies trauma or recent increase in swelling. She went for consultation with vascular specialist, Dr. Rdz who recommended venous procedural intervention in [place]. She had initial intervention. She relates her leg swelling is increased this morning because she has been very active. She did follow-up with vascular specialist who gave her a compression stocking order and she started using this. She continues to smoke and has vascular disease. She also has rheumatoid arthritis. Progress of Wound: Stable (superior aspect healed) Objective Data Objective Data Vital Signs: Vital Signs Temp Pulse Resp BP 97.4 F L 86 18 149/76 H 01/16/22 10:16 01/16/22 10:16 01/16/22 10:16 01/16/22 10:16 Weight: 43.091 kg Body Mass Index (BMI) 20.5 Physical Exam Extremity Extremity Narrative: No calf tenderness (negative Winston and Avendano sign, no warmth or calor) Diminished pulses Muscle wasting noted Adjacent skin is atrophic and hairless Prior skin grafting surgical intervention site noted with cicatrix Noted leg edema, increased today Skin Skin Narrative: no kevin purulence, no erythema, no streaking, no odor. mima ulcer increased edema continued. The ulcer size is significantly increased with a depth decreased. this was a cluster with a smaller proximal ulcer which is now healed with full epithelialization. There is no undermining or maceration Neuro Neuro Narrative: lack of normal epicritic sensation via light touch is consistent with neuropathy status Debridement Note Debridement Note Wound debrided: left leg Wound Grade/Stage: Type of Debridement: Excisional debridement Anesthesia Used: 4% Lidocaine Solution Depth: in the subcutaneous layer Percentage of wound debrided: 100 Instrument Used: #15 blade Tissue Removed: fibrous, devitalized subcutaneous, biofilm, slough Severity: Fat Layer Exposed Amount of bleeding with debridement: Mild Bleeding Controlled with: Pressure Patient tolerated procedure: Patient tolerated procedure well Post-Debridement Measurements and Additional Note: Post-Debridement Measurements/Treatment WC - Nurse 1 - General Ulcer Assessment Start: 01/09/22 14:32 Freq: Status: Active Protocol: WC.LOWEXT Activity Type Activity Date Activity User E-Sign Co-Sign Detail Recorded Client Recorded Date Recorded By Document 01/09/22 14:32 DL [id number] 01/09/22 14:42 DL Document 01/14/22 09:30 AK [id number] 01/14/22 09:36 AK Document 01/16/22 10:16 RB [id number] 01/16/22 10:20 RB 01/09/22 01/14/22 01/16/22 14:32 09:30 10:16 - Today's Visit Information Type of service Follow-up Visit Nurse-only Follow-up Visit (Physician/GENERAL PRACTICE Visit (Physician/GENERAL PRACTICE ) ) Arrival Mode Cane Ambulatory Ambulatory Transfer Assistance None None Patient Identification Verified (Name & Yes Yes Yes ) Patient Requires Transmission-Based No No No Precautions Safety Precautions NA Finger Stick Blood Sugar(mg/dl) (if no tchecked indicated): Blood Sugar Stated by Patient Height and Weight Body Mass Index (BMI) 20.5 20.5 20.5 BMI Classification Normal Normal Normal Vital Signs Temperature (97.8 F-99.1 F) 97.6 F L 96.3 F L 97.4 F L Temperature Source Temporal Temporal Temporal Pulse Rate (60-100) 100 69 86 Pulse Location Monitor Monitor Monitor Respiratory Rate (12-18) 20 H 18 Respiratory rate source Observation Observation Blood Pressure (90/60-120/80) 140/79 H 122/63 H 149/76 H Blood Pressure Mean (mm Hg) 99 82 100 Source Monitor Monitor Monitor Position Semi-Fowlers Blood Pressure Location Left Arm History Since Last Visit- (Skip if this is Patient's initial visit) Have you changed medications since your No No No last visit? Any new allergies or adverse reactions No No No Had a fall/change in ADL's that may No No No increase risk of falls Signs or symptoms of abuse and/or No No No neglect since last visit Have you been in the hospital since your No No No last visit? Has dressing in place as prescribed Yes Yes Yes Has compression in place as prescribed Yes Yes Yes Has offloadiing in place as prescribed N/A N/A No Experienced any changes in pain level or No No No management Left Footwear Regular Shoe Right Footwear Regular Shoe Pain Scale: 0-10 Numeric Is Patient Pain Free? Yes No Yes WC - Nurse 1 - General Ulcer Measurement Start: 01/09/22 14:32 Freq: Status: Active Protocol: Activity Type Activity Date Activity User E-Sign Co-Sign Detail Recorded Client Recorded Date Recorded By Document 01/09/22 14:32 DL [id number] 01/09/22 14:42 DL Document 01/16/22 10:16 RB [id number] 01/16/22 10:20 RB 01/09/22 01/16/22 14:32 10:16 Wound Center Nurse 1 3-left superior leg -Combined with other wound No -Current Size (cm) - Length 0.2 0.1 -Current Size (cm) - Width 0.2 0.1 -Current Size (cm) - Depth 0.2 0.1 -Total Square Cm 0.04 0.01 -Photo Taken No -Tunneling No -Undermining/Tunneling No -Circular Undermining No -Exudate Amt Small None Present -Exudate Type Serosanguineous -Wound Margin Distinct, Distinct, Outline Outline Attached Attached -Granulation Amt None Present (0 Large (67-100%) %) -Granulation Quality [place] -Slough/Fibrin Yes -Necrosis Amt Small (1-33%) Small (1-33%) -Necrotic Tissue Type Adherent Slough Adherent Slough -Structure Exposed N/A N/A -Texture (Mima-wound Skin Appearance) Scarring Scarring -Moisture (Mima-wound Skin Appearance) No Abnormality Assessed -Color (Mima-wound Skin Appearance) Hemosiderin Assessed Staining -Temperature (Mima-wound Skin No Abnormality No Abnormality Appearance) (Pt Warm) (Pt Warm) -Tenderness on Palpation (Mima-wound No No Skin Appearance) -Ulcer Cleansing Soap and Water Wound Cleanser -Foul Odor after Cleansing No No -Anesthetic Used 5% Lidocaine 4% Lidocaine Gel Solution #1- L inferior yoder -Combined with other wound No -Current Size (cm) - Length 0.5 0.6 -Current Size (cm) - Width 0.4 0.4 -Current Size (cm) - Depth 0.3 0.5 -Total Square Cm 0.20 0.24 -Tunneling No -Undermining/Tunneling No -Circular Undermining No -Exudate Amt Medium Large -Exudate Type Serosanguineous Serosanguineous -Wound Margin Distinct, Distinct, Outline Outline Attached Attached -Granulation Amt None Present (0 Medium (34-66%) %) -Granulation Quality [place] -Slough/Fibrin Yes -Necrosis Amt Small (1-33%) Small (1-33%) -Necrotic Tissue Type Adherent Slough Adherent Slough -Structure Exposed N/A N/A -Texture (Mima-wound Skin Appearance) Scarring Scarring -Moisture (Mima-wound Skin Appearance) Dry/Scaly Assessed -Color (Mima-wound Skin Appearance) Hemosiderin Assessed Staining -Temperature (Mima-wound Skin No Abnormality No Abnormality Appearance) (Pt Warm) (Pt Warm) -Tenderness on Palpation (Mima-wound No No Skin Appearance) -Ulcer Cleansing Soap and Water Wound Cleanser -Foul Odor after Cleansing No No -Anesthetic Used 5% Lidocaine 4% Lidocaine Gel Solution Lower Limb Edema Present Yes Left Calf (cm) 31 31.5 Left Ankle (cm) 20.4 20.5 WC - Nurse 2 - General Ulcer CM Notes Start: 01/09/22 14:32 Freq: Status: Active Protocol: Activity Type Activity Date Activity User E-Sign Co-Sign Detail Recorded Client Recorded Date Recorded By Document 01/09/22 14:52 [id number] 01/09/22 14:59 Document 01/16/22 10:31 [id number] 01/16/22 10:34 01/09/22 01/16/22 14:52 10:31 Wound Center Nurse 2 3-left superior leg -Time 14:53 10:31 -Correct Patient Yes No -Correct Side, Site, Position Yes No -Correct Procedure Yes No -Procedure Performed Yes No -Type of Procedure Debridement -Clinical Debridement Subcutaneous -Tissue Removed Subcutaneous -Post Debridement (cm) - Length 0.3 0 -Post Debridement (cm) - Width 0.2 0 -Post Debridement (cm) - Depth 0.2 0 -Total Square (Post) (cm) 0.06 0 -Area of Debridement (cm) - Length 0.3 0 -Area of Debridement (cm) - Width 0.2 0 -Total Square (Area) (cm) 0.06 0 -Tunneling No No -Undermining/Tunneling No No -Circular Undermining No No -Wound/Ulcer Outcome Not Healed Healed- Epithelialized -Ulcer Cleansing Rinsed/ Rinsed/ Irrigated with Irrigated with Saline Saline -Foul Odor after Cleansing No No -Bioengineered Tissue No No -Bleeding Controlled with Pressure -Treatment Response Procedure Tolerated Well -Offloading No -Debridement - Subq, 1st 20sq cm Yes #1- L inferior yoder -Time 14:57 10:33 -Correct Patient Yes Yes -Correct Side, Site, Position Yes Yes -Correct Procedure Yes Yes -Procedure Performed Yes Yes -Type of Procedure Debridement Debridement -Clinical Debridement Subcutaneous Subcutaneous -Tissue Removed Subcutaneous Subcutaneous -Post Debridement (cm) - Length 0.5 0.6 -Post Debridement (cm) - Width 0.5 0.5 -Post Debridement (cm) - Depth 0.3 0.5 -Total Square (Post) (cm) 0.25 0.30 -Area of Debridement (cm) - Length 0.5 0.6 -Area of Debridement (cm) - Width 0.5 0.5 -Total Square (Area) (cm) 0.25 0.30 -Tunneling No No -Undermining/Tunneling No -Circular Undermining No No -Wound/Ulcer Outcome Not Healed Not Healed -Ulcer Cleansing Rinsed/ Rinsed/ Irrigated with Irrigated with Saline Saline -Foul Odor after Cleansing No No -Bioengineered Tissue No No -Bleeding Controlled with Pressure Pressure -Treatment Response Procedure Procedure Tolerated Well Tolerated Well -Offloading No No -Debridement - Subq, 1st 20sq cm No Yes Pain Scale: 0-10 Numeric Is Patient Pain Free? Yes Yes WC - Nurse 3 - General Ulcer D/C NN Start: 01/09/22 14:32 Freq: Status: Active Protocol: Activity Type Activity Date Activity User E-Sign Co-Sign Detail Recorded Client Recorded Date Recorded By Document 01/09/22 15:01 [facility] [id number] 01/09/22 15:03 [facility] Document 01/14/22 09:30 AK [id number] 01/14/22 09:36 AK Document 01/16/22 10:34 JF [id number] 01/16/22 10:35 JF 01/09/22 01/14/22 01/16/22 15:01 09:30 10:34 Wound Care Nurse 3 3-left superior leg -Ulcer Cleansing Rinsed/ Soap and Water Irrigated with Saline -Foul Odor after Cleansing No No -Negative Pressure Wound Therapy N/A -Primary Dressing Applied Aquacel AG 2x2 Aquacel AG 4x4 -Primary Dressing Covered/Secured with Dry Gauze Dry Gauze -Other Covering 3M, DRSG PER [place] MATHEMATICS INSTRUCTOR -Aquacel AG 4x4 1 -Aquacel AG 2x2 1 #1- L inferior yoder -Ulcer Cleansing Rinsed/ Soap and Water Rinsed/ Irrigated with Irrigated with Saline Saline -Foul Odor after Cleansing No No No -Negative Pressure Wound Therapy N/A -Primary Dressing Applied Aquacel AG 2x2 Aquacel AG 4x4 Aquacel AG 2x2 -Primary Dressing Covered/Secured with Dry Gauze Dry Gauze -Other Covering 3M, DRSG PER [place] MATHEMATICS INSTRUCTOR -Aquacel AG 4x4 0 -Aquacel AG 2x2 0 1 Left -Lotion applied to leg before No compression wrap -Multi-Layered Wrap Application Multi-Layer Multi-Layer Multi-Layer Comp - Left ($) Comp - Left ($) Comp - Left ($) Treatment Response Procedure Tolerated Well Vital Signs Temperature (97.8 F-99.1 F) 96.3 F L Temperature Source Temporal Pulse Rate (60-100) 69 Pulse Location Monitor Blood Pressure (90/60-120/80) 122/63 H Blood Pressure Mean (mm Hg) 82 Source Monitor Pain Scale: 0-10 Numeric Is Patient Pain Free? Yes No Yes WC - Visit Discharge Discharge Condition Stable Stable Stable Ambulatory Status Ambulatory Ambulatory Ambulatory Transportation Private Auto Private Auto Medication Reconcilliation completed & Yes Yes provided to patient/care provider Clinical Summary of Care Provided Yes Yes 01/14/22 09:34 Wound Center by Curt Barrientos PT REPORTS LUMP IN LEFT AXILLA. She doesn't want to have it checked out before she gets wounds healed on L leg. I told her how extremely important it is to get checked out especially in that location. She also has concerns about hypoglycemia. I advised an appt. with PCP Initialized on 01/14/22 09:34 - END OF NOTE Assessment/Plan Assessment/Plan (1) Delayed wound healing: CODE(S): T14.8XXD - Other injury of unspecified body region, subsequent encounter (2) Ulcer of left lower extremity with fat layer exposed: CODE(S): L97.922 - Non-pressure chronic ulcer of unspecified part of left lower leg with fat layer exposed (3) Osteomyelitis: CODE(S): M86.9 - Osteomyelitis, unspecified (4) Venous insufficiency (chronic) (peripheral): CODE(S): I87.2 - Venous insufficiency (chronic) (peripheral) (5) Localized edema: CODE(S): R60.0 - Localized edema (6) Rheumatoid arthritis: CODE(S): M06.9 - Rheumatoid arthritis, unspecified (7) Tobacco use disorder: CODE(S): F17.200 - Nicotine dependence, unspecified, uncomplicated PLAN: I reviewed and discussed her case today. Debridement was performed today as noted in the clinical panel to the ulcer site. The following work up and care recommendations were made: Dressing: To change daily with hydrogel. Wash: Antibacterial soap and water. Avoid soaking. To avoid bathtub bathing where her leg including her wound are submerged. I recommend she uses traditional antibacterial soap and water. Tissue growth optimization: If she does have a documented history of osteomyelitis that is chronic she may be a candidate for hyperbaric oxygen therapy. 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 Offload: To avoid direct pressure on the site. Vascular / edema: She has nonpalpable pulses and lack of hair. She also has questionable claudication presentation. I recommend noninvasive vascular studies including MARI, segmental thigh and leg pressure, PVR, and systolic toe pressure. The results were reviewed and she has left biphasic waveforms, left MARI of 1.2, and left toe brachial index is 0.72. The segmental thigh and leg pressures were not obtained. There is not a difference of over 30 mmHg when compared to arm pressures. She is also advised to discontinue all tobacco products to optimize healing and limb salvage opportunities. Due to ongoing lack of healing, a vascular referral was provided for Dr. Rdz. She started intervention and was advised to follow-up with her scheduled ultrasound as advised. Medical records have been reviewed and additional interventions not currently planned. Her treatment is mainly for venous insufficiency at this time. There is mild to moderate edema. I recommend 3M 2L multilayer compression dressings with the help of nursing dressing changes. This was applied today and she was assisted in scheduling transportation to return to the facility for routine care. Infection: She does not have kevin purulent drainage today or erythema, streaking, or odor. To monitor for this. Culture was previously updated for mrsa pcr, aerobic and anearobic. She has a noted h/o MRSA growth. I recommend considering IV antibiotics due to her continued MRSA infections. She is also under the management of infectious disease specialist and continues IV antibiotics and has a PICC line in place. She is currently on a 6-week course of linezolid and this has been completed. no infection signs noted today. Today, I am concerned about her exposed bone and significant increase in ulcer size and I ordered an x-ray to rule out any underlying bone pathology. She obtained the 2 leg x-rays on which did not demonstrate any osseous destruction, foreign body or soft tissue emphysema or periosteal reaction. Pain: Controlled Host factors: She has significant delays in healing. We discussed tobacco cessation and how this impairs healing. She has some muscle wasting and delayed healing and nutritional supplementation would also be beneficial. She has rheumatoid arthritis and understands this may also delay her healing. She was urged to reduce smoking. Her outcome prognosis is poor with continued tobacco use. Labs: Updated labs were recently updated including CBC, CMP, ESR, C-reactive protein, and hemoglobin A1c. No leukocytosis was noted. ESR 24. CRP 23.5. No gross abnormalities with CMP. A1c of 5.5%. Imaging: Left leg xrays were recently updated - there is a healed fracture in the mid third of the left tibia but apparently there is periosteal reaction and what appears to be chronic osteomyelitis with possibility of sinus tract. I answered all the patient's questions. To return to the wound healing center in 1 week or call sooner if the patient has any questions or concerns. Note: [employer] speech recognition applications development consultant software was used to create portions of this document. Sound-alike and misspelled words, as well as other applications development consultant errors may be contained in the documentation.
[2022-01-21 11:33] VITALS: BP 136/73; PULSE 80; RESP 16; TEMP 36.6; BMI 20.5
[2022-01-23 09:22] VITALS: BP 131/56; PULSE 78; RESP 16; TEMP 36.3; BMI 20.5
--- NOTE | 2022-01-23 10:57 | PN.PCM_ITS ---
History of Present Illness Date of Service: 01/23/22 Chief Complaint: left leg ulcer History of Wound: This 61-year-old female was seen today for left leg ulcer. She denies fever, chill, nausea, vomiting, diarrhea. She tries to wear compression garment. She continues to smoke. She denies leg pain, redness, or odor. She denies trauma or recent increase in swelling. She went for consultation with vascular specialist, Dr. Rdz who recommended venous procedural intervention in [place]. She had initial intervention. She relates her leg swelling is increased this morning because she has been very active. She did follow-up with vascular specialist who gave her a compression stocking order and she started using this. She continues to smoke and has vascular disease. She also has rheumatoid arthritis. Progress of Wound: Stable (superior aspect healed) Objective Data Objective Data Vital Signs: Vital Signs Temp Pulse Resp BP 97.3 F L 78 16 131/56 H 01/23/22 09:22 01/23/22 09:22 01/23/22 09:22 01/23/22 09:22 Oxygen Delivery Method Room Air Weight: 43.091 kg Body Mass Index (BMI) 20.5 Physical Exam Extremity Extremity Narrative: No calf tenderness (negative Winston and Avendano sign, no warmth or calor) Diminished pulses Muscle wasting noted Adjacent skin is atrophic and hairless Prior skin grafting surgical intervention site noted with cicatrix Noted leg edema, increased today Skin Skin Narrative: no kevin purulence, no erythema, no streaking, no odor. mima ulcer increased edema continued. The ulcer size is significantly increased with a depth decreased. this was a cluster with a smaller proximal ulcer which is now healed with full epithelialization. There is no undermining or maceration Neuro Neuro Narrative: lack of normal epicritic sensation via light touch is consistent with neuropathy status Debridement Note Debridement Note Wound debrided: left leg Wound Grade/Stage: Type of Debridement: Excisional debridement Anesthesia Used: 4% Lidocaine Solution Depth: in the subcutaneous layer Percentage of wound debrided: 100 Instrument Used: #15 blade Tissue Removed: fibrous, devitalized subcutaneous, biofilm, slough Severity: Fat Layer Exposed Amount of bleeding with debridement: Mild Bleeding Controlled with: Pressure Patient tolerated procedure: Patient tolerated procedure well Post-Debridement Measurements and Additional Note: Post-Debridement Measurements/Treatment WC - Nurse 1 - General Ulcer Assessment Start: 01/09/22 14:32 Freq: Status: Active Protocol: WC.LOWEXT Activity Type Activity Date Activity User E-Sign Co-Sign Detail Recorded Client Recorded Date Recorded By Document 01/09/22 14:32 DL [id number] 01/09/22 14:42 DL Document 01/14/22 09:30 AK [id number] 01/14/22 09:36 AK Document 01/16/22 10:16 RB [id number] 01/16/22 10:20 RB Document 01/21/22 11:33 JF [id number] 01/21/22 11:34 JF Document 01/23/22 09:22 BMF [id number] 01/23/22 09:33 BMF 01/09/22 01/14/22 01/16/22 14:32 09:30 10:16 - Today's Visit Information Type of service Follow-up Visit Nurse-only Follow-up Visit (Physician/PANEL FLOW MACHINE OPERATOR Visit (Physician/PANEL FLOW MACHINE OPERATOR ) ) Arrival Mode Cane Ambulatory Ambulatory Transfer Assistance None None Patient Identification Verified (Name & Yes Yes Yes ) Patient Requires Transmission-Based No No No Precautions Safety Precautions NA Finger Stick Blood Sugar(mg/dl) (if no tchecked indicated): Blood Sugar Stated by Patient Height and Weight Body Mass Index (BMI) 20.5 20.5 20.5 BMI Classification Normal Normal Normal Vital Signs Temperature (97.8 F-99.1 F) 97.6 F L 96.3 F L 97.4 F L Temperature Source Temporal Temporal Temporal Pulse Rate (60-100) 100 69 86 Pulse Location Monitor Monitor Monitor Respiratory Rate (12-18) 20 H 18 Respiratory rate source Observation Observation Oxygen Delivery Method Blood Pressure (90/60-120/80) 140/79 H 122/63 H 149/76 H Blood Pressure Mean (mm Hg) 99 82 100 Source Monitor Monitor Monitor Position Semi-Fowlers Blood Pressure Location Left Arm History Since Last Visit- (Skip if this is Patient's initial visit) Have you changed medications since your No No No last visit? Any new allergies or adverse reactions No No No Had a fall/change in ADL's that may No No No increase risk of falls Signs or symptoms of abuse and/or No No No neglect since last visit Have you been in the hospital since your No No No last visit? Has dressing in place as prescribed Yes Yes Yes Has compression in place as prescribed Yes Yes Yes Has offloadiing in place as prescribed N/A N/A No Experienced any changes in pain level or No No No management Left Footwear Regular Shoe Right Footwear Regular Shoe Pain Scale: 0-10 Numeric Is Patient Pain Free? Yes No Yes 01/21/22 01/23/22 11:33 09:22 - Today's Visit Information Type of service Nurse-only Follow-up Visit Visit (Physician/PANEL FLOW MACHINE OPERATOR ) Arrival Mode Ambulatory Ambulatory Transfer Assistance None Patient Identification Verified (Name & Yes ) Patient Requires Transmission-Based No Precautions Safety Precautions Finger Stick Blood Sugar(mg/dl) (if indicated): Blood Sugar Height and Weight Body Mass Index (BMI) 20.5 20.5 BMI Classification Normal Normal Vital Signs Temperature (97.8 F-99.1 F) 97.9 F 97.3 F L Temperature Source Temporal Temporal Pulse Rate (60-100) 80 78 Pulse Location Monitor Monitor Respiratory Rate (12-18) 16 16 Respiratory rate source Observation Observation Oxygen Delivery Method Room Air Blood Pressure (90/60-120/80) 136/73 H 131/56 H Blood Pressure Mean (mm Hg) 94 81 Source Monitor Monitor Position Semi-Fowlers Sitting Blood Pressure Location Left Arm Left Arm History Since Last Visit- (Skip if this is Patient's initial visit) Have you changed medications since your No last visit? Any new allergies or adverse reactions No Had a fall/change in ADL's that may No increase risk of falls Signs or symptoms of abuse and/or No neglect since last visit Have you been in the hospital since your No last visit? Has dressing in place as prescribed Yes Has compression in place as prescribed Yes Has offloadiing in place as prescribed N/A Experienced any changes in pain level or No management Left Footwear Regular Shoe Right Footwear Regular Shoe Pain Scale: 0-10 Numeric Is Patient Pain Free? No Yes - Nurse 1 - General Ulcer Measurement Start: 01/09/22 14:32 Freq: Status: Active Protocol: Activity Type Activity Date Activity User E-Sign Co-Sign Detail Recorded Client Recorded Date Recorded By Document 01/09/22 14:32 DL [id number] 01/09/22 14:42 DL Document 01/16/22 10:16 RB [id number] 01/16/22 10:20 RB Document 01/21/22 11:33 JF [id number] 01/21/22 11:34 JF Document 01/23/22 09:22 [facility] [id number] 01/23/22 09:33 [facility] 01/09/22 01/16/22 01/21/22 14:32 10:16 11:33 Wound Center Nurse 1 3-left superior leg -Combined with other wound No -Current Size (cm) - Length 0.2 0.1 -Current Size (cm) - Width 0.2 0.1 -Current Size (cm) - Depth 0.2 0.1 -Total Square Cm 0.04 0.01 -Photo Taken No -Tunneling No -Undermining/Tunneling No -Circular Undermining No -Exudate Amt Small None Present -Exudate Type Serosanguineous -Wound Margin Distinct, Distinct, Outline Outline Attached Attached -Granulation Amt None Present (0 Large (67-100%) %) -Granulation Quality [place] -Slough/Fibrin Yes -Necrosis Amt Small (1-33%) Small (1-33%) -Necrotic Tissue Type Adherent Slough Adherent Slough -Structure Exposed N/A N/A -Texture (Mima-wound Skin Appearance) Scarring Scarring -Moisture (Mima-wound Skin Appearance) No Abnormality Assessed -Color (Mima-wound Skin Appearance) Hemosiderin Assessed Staining -Temperature (Mima-wound Skin No Abnormality No Abnormality Appearance) (Pt Warm) (Pt Warm) -Tenderness on Palpation (Mima-wound No No Skin Appearance) -Ulcer Cleansing Soap and Water Wound Cleanser -Foul Odor after Cleansing No No -Anesthetic Used 5% Lidocaine 4% Lidocaine Gel Solution #1- L inferior yoder -Combined with other wound No -Current Size (cm) - Length 0.5 0.6 0.1 -Current Size (cm) - Width 0.4 0.4 0.3 -Current Size (cm) - Depth 0.3 0.5 0.6 -Total Square Cm 0.20 0.24 0.03 -Date of Last Picture (Recall this field) -Photo Taken No -Epithelialization Small 1-33% -Tunneling No No -Undermining/Tunneling No No -Circular Undermining No No -Exudate Amt Medium Large Small -Exudate Type Serosanguineous Serosanguineous Serosanguineous -Wound Margin Distinct, Distinct, Flat & Intact Outline Outline Attached Attached -Granulation Amt None Present (0 Medium (34-66%) Medium (34-66%) %) -Granulation Quality [place] Red -Slough/Fibrin Yes Yes -Necrosis Amt Small (1-33%) Small (1-33%) Medium (34-66%) -Necrotic Tissue Type Adherent Slough Adherent Slough Adherent Slough -Structure Exposed N/A N/A N/A -Texture (Mima-wound Skin Appearance) Scarring Scarring Assessed -Moisture (Mima-wound Skin Appearance) Dry/Scaly Assessed No Abnormality, Dry/Scaly -Color (Mima-wound Skin Appearance) Hemosiderin Assessed Assessed Staining -Temperature (Mima-wound Skin No Abnormality No Abnormality No Abnormality Appearance) (Pt Warm) (Pt Warm) (Pt Warm) -Tenderness on Palpation (Mima-wound No No No Skin Appearance) -Ulcer Cleansing Soap and Water Wound Cleanser Soap and Water -Foul Odor after Cleansing No No No -Anesthetic Used 5% Lidocaine 4% Lidocaine Gel Solution Lower Limb Edema Present Yes Left Calf (cm) 31 31.5 Left Ankle (cm) 20.4 20.5 01/23/22 09:22 Wound Center Nurse 1 3-left superior leg -Combined with other wound -Current Size (cm) - Length -Current Size (cm) - Width -Current Size (cm) - Depth -Total Square Cm -Photo Taken -Tunneling -Undermining/Tunneling -Circular Undermining -Exudate Amt -Exudate Type -Wound Margin -Granulation Amt -Granulation Quality -Slough/Fibrin -Necrosis Amt -Necrotic Tissue Type -Structure Exposed -Texture (Imma-wound Skin Appearance) -Moisture (Mima-wound Skin Appearance) -Color (Mima-wound Skin Appearance) -Temperature (Mima-wound Skin Appearance) -Tenderness on Palpation (Mima-wound Skin Appearance) -Ulcer Cleansing -Foul Odor after Cleansing -Anesthetic Used #1- L inferior yoder -Combined with other wound No -Current Size (cm) - Length 0.7 -Current Size (cm) - Width 0.5 -Current Size (cm) - Depth 0.6 -Total Square Cm 0.35 -Date of Last Picture (Recall this 01/23/22 field) -Photo Taken Yes -Epithelialization -Tunneling No -Undermining/Tunneling No -Circular Undermining No -Exudate Amt Medium -Exudate Type Serosanguineous -Wound Margin Distinct, Outline Attached -Granulation Amt Large (67-100%) -Granulation Quality Red -Slough/Fibrin Yes -Necrosis Amt Small (1-33%) -Necrotic Tissue Type Adherent Slough -Structure Exposed -Texture (Mima-wound Skin Appearance) Assessed, Scarring -Moisture (Mima-wound Skin Appearance) Assessed,Dry/ Scaly -Color (Mima-wound Skin Appearance) Assessed -Temperature (Mima-wound Skin No Abnormality Appearance) (Pt Warm) -Tenderness on Palpation (Mima-wound Yes Skin Appearance) -Ulcer Cleansing Soap and Water -Foul Odor after Cleansing -Anesthetic Used 4% Lidocaine Solution Lower Limb Edema Present Left Calf (cm) Left Ankle (cm) WC - Nurse 2 - General Ulcer CM Notes Start: 01/09/22 14:32 Freq: Status: Active Protocol: Activity Type Activity Date Activity User E-Sign Co-Sign Detail Recorded Client Recorded Date Recorded By Document 01/09/22 14:52 [id number] 01/09/22 14:59 Document 01/16/22 10:31 [id number] 01/16/22 10:34 Document 01/23/22 09:50 [id number] 01/23/22 09:53 01/09/22 01/16/22 01/23/22 14:52 10:31 09:50 Wound Center Nurse 2 3-left superior leg -Time 14:53 10:31 -Correct Patient Yes No -Correct Side, Site, Position Yes No -Correct Procedure Yes No -Procedure Performed Yes No -Type of Procedure Debridement -Clinical Debridement Subcutaneous -Tissue Removed Subcutaneous -Post Debridement (cm) - Length 0.3 0 -Post Debridement (cm) - Width 0.2 0 -Post Debridement (cm) - Depth 0.2 0 -Total Square (Post) (cm) 0.06 0 -Area of Debridement (cm) - Length 0.3 0 -Area of Debridement (cm) - Width 0.2 0 -Total Square (Area) (cm) 0.06 0 -Tunneling No No -Undermining/Tunneling No No -Circular Undermining No No -Wound/Ulcer Outcome Not Healed Healed- Epithelialized -Ulcer Cleansing Rinsed/ Rinsed/ Irrigated with Irrigated with Saline Saline -Foul Odor after Cleansing No No -Bioengineered Tissue No No -Bleeding Controlled with Pressure -Treatment Response Procedure Tolerated Well -Offloading No -Debridement - Subq, 1st 20sq cm Yes #1- L inferior yoder -Time 14:57 10:33 09:53 -Correct Patient Yes Yes Yes -Correct Side, Site, Position Yes Yes Yes -Correct Procedure Yes Yes Yes -Procedure Performed Yes Yes Yes -Type of Procedure Debridement Debridement Debridement -Clinical Debridement Subcutaneous Subcutaneous Subcutaneous -Tissue Removed Subcutaneous Subcutaneous Subcutaneous -Post Debridement (cm) - Length 0.5 0.6 0.7 -Post Debridement (cm) - Width 0.5 0.5 0.6 -Post Debridement (cm) - Depth 0.3 0.5 0.6 -Total Square (Post) (cm) 0.25 0.30 0.42 -Area of Debridement (cm) - Length 0.5 0.6 0.7 -Area of Debridement (cm) - Width 0.5 0.5 0.6 -Total Square (Area) (cm) 0.25 0.30 0.42 -Tunneling No No No -Undermining/Tunneling No No -Circular Undermining No No No -Wound/Ulcer Outcome Not Healed Not Healed Not Healed -Ulcer Cleansing Rinsed/ Rinsed/ Rinsed/ Irrigated with Irrigated with Irrigated with Saline Saline Saline -Foul Odor after Cleansing No No No -Bioengineered Tissue No No No -Bleeding Controlled with Pressure Pressure Pressure -Treatment Response Procedure Procedure Procedure Tolerated Well Tolerated Well Tolerated Well -Offloading No No No -Debridement - Subq, 1st 20sq cm No Yes Yes Pain Scale: 0-10 Numeric Is Patient Pain Free? Yes Yes Yes WC - Nurse 3 - General Ulcer D/C NN Start: 01/09/22 14:32 Freq: Status: Active Protocol: Activity Type Activity Date Activity User E-Sign Co-Sign Detail Recorded Client Recorded Date Recorded By Document 01/09/22 15:01 [facility] [id number] 01/09/22 15:03 [facility] Document 01/14/22 09:30 AK [id number] 01/14/22 09:36 AK Document 01/16/22 10:34 [id number] 01/16/22 10:35 Document 01/21/22 11:33 [id number] 01/21/22 11:34 01/09/22 01/14/22 01/16/22 15:01 09:30 10:34 Wound Care Nurse 3 3-left superior leg -Ulcer Cleansing Rinsed/ Soap and Water Irrigated with Saline -Foul Odor after Cleansing No No -Negative Pressure Wound Therapy N/A -Primary Dressing Applied Aquacel AG 2x2 Aquacel AG 4x4 -Primary Dressing Covered/Secured with Dry Gauze Dry Gauze -Other Covering 3M, DRSG PER [place] [employer] ALARM DISPATCHER -Aquacel AG 4x4 1 -Aquacel AG 2x2 1 #1- L inferior yoder -Ulcer Cleansing Rinsed/ Soap and Water Rinsed/ Irrigated with Irrigated with Saline Saline -Foul Odor after Cleansing No No No -Negative Pressure Wound Therapy N/A -Primary Dressing Applied Aquacel AG 2x2 Aquacel AG 4x4 Aquacel AG 2x2 -Primary Dressing Covered/Secured with Dry Gauze Dry Gauze -Other Covering 3M, DRSG PER [place] FIRE ALARM DISPATCHER -Aquacel AG 4x4 0 -Aquacel AG 2x2 0 1 Left -Lotion applied to leg before No compression wrap -Multi-Layered Wrap Application Multi-Layer Multi-Layer Multi-Layer Comp - Left ($) Comp - Left ($) Comp - Left ($) Treatment Response Procedure Tolerated Well Vital Signs Temperature (97.8 F-99.1 F) 96.3 F L Temperature Source Temporal Pulse Rate (60-100) 69 Pulse Location Monitor Respiratory Rate (12-18) Respiratory rate source Blood Pressure (90/60-120/80) 122/63 H Blood Pressure Mean (mm Hg) 82 Source Monitor Position Blood Pressure Location Pain Scale: 0-10 Numeric Is Patient Pain Free? Yes No Yes WC - Visit Discharge Discharge Condition Stable Stable Stable Ambulatory Status Ambulatory Ambulatory Ambulatory Transportation Private Auto Private Auto Medication Reconcilliation completed & Yes Yes provided to patient/care provider Clinical Summary of Care Provided Yes Yes 01/21/22 11:33 Wound Care Nurse 3 3-left superior leg -Ulcer Cleansing -Foul Odor after Cleansing -Negative Pressure Wound Therapy -Primary Dressing Applied -Primary Dressing Covered/Secured with -Other Covering -Aquacel AG 4x4 -Aquacel AG 2x2 #1- L inferior yoder -Ulcer Cleansing Soap and Water -Foul Odor after Cleansing -Negative Pressure Wound Therapy -Primary Dressing Applied Aquacel AG 2x2 -Primary Dressing Covered/Secured with Dry Gauze -Other Covering -Aquacel AG 4x4 -Aquacel AG 2x2 1 Left -Lotion applied to leg before Yes compression wrap -Multi-Layered Wrap Application Multi-Layer Comp - Left ($) Treatment Response Vital Signs Temperature (97.8 F-99.1 F) 97.9 F Temperature Source Temporal Pulse Rate (60-100) 80 Pulse Location Monitor Respiratory Rate (12-18) 16 Respiratory rate source Observation Blood Pressure (90/60-120/80) 136/73 H Blood Pressure Mean (mm Hg) 94 Source Monitor Position Semi-Fowlers Blood Pressure Location Left Arm Pain Scale: 0-10 Numeric Is Patient Pain Free? No WC - Visit Discharge Discharge Condition Stable Ambulatory Status Ambulatory Transportation Private Auto Medication Reconcilliation completed & Yes provided to patient/care provider Clinical Summary of Care Provided Yes 01/14/22 09:34 Wound Center by Curt Barrientos PT REPORTS LUMP IN LEFT AXILLA. She doesn't want to have it checked out before she gets wounds healed on L leg. I told her how extremely important it is to get checked out especially in that location. She also has concerns about hypoglycemia. I advised an appt. with PCP Initialized on 01/14/22 09:34 - END OF NOTE Assessment/Plan Assessment/Plan (1) Delayed wound healing: CODE(S): T14.8XXD - Other injury of unspecified body region, subsequent encounter (2) Ulcer of left lower extremity with fat layer exposed: CODE(S): L97.922 - Non-pressure chronic ulcer of unspecified part of left lower leg with fat layer exposed (3) Osteomyelitis: CODE(S): M86.9 - Osteomyelitis, unspecified (4) Venous insufficiency (chronic) (peripheral): CODE(S): I87.2 - Venous insufficiency (chronic) (peripheral) (5) Localized edema: CODE(S): R60.0 - Localized edema (6) Rheumatoid arthritis: CODE(S): M06.9 - Rheumatoid arthritis, unspecified (7) Tobacco use disorder: CODE(S): F17.200 - Nicotine dependence, unspecified, uncomplicated PLAN: I reviewed and discussed her case today. Debridement was performed today as noted in the clinical panel to the ulcer site. The following work up and care recommendations were made: Dressing: To change daily with hydrogel. Wash: Antibacterial soap and water. Avoid soaking. To avoid bathtub bathing where her leg including her wound are submerged. I recommend she uses traditional antibacterial soap and water. Tissue growth optimization: If she does have a documented history of osteomyelitis that is chronic she may be a candidate for hyperbaric oxygen therapy. 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 Offload: To avoid direct pressure on the site. Vascular / edema: She has nonpalpable pulses and lack of hair. She also has questionable claudication presentation. I recommend noninvasive vascular studies including MARI, segmental thigh and leg pressure, PVR, and systolic toe pressure. The results were reviewed and she has left biphasic waveforms, left MARI of 1.2, and left toe brachial index is 0.72. The segmental thigh and leg pressures were not obtained. There is not a difference of over 30 mmHg when compared to arm pressures. She is also advised to discontinue all tobacco products to optimize healing and limb salvage opportunities. Due to ongoing lack of healing, a vascular referral was provided for Dr. Rdz. She started intervention and was advised to follow-up with her scheduled ultrasound as advised. Medical records have been reviewed and additional interventions not currently planned. Her treatment is mainly for venous insufficiency at this time. There is mild to moderate edema. I recommend 3M 2L multilayer compression dressings with the help of nursing dressing changes. This was applied today and she was assisted in scheduling transportation to return to the facility for routine care. Infection: She does not have kevin purulent drainage today or erythema, streaking, or odor. To monitor for this. Culture was previously updated for mrsa pcr, aerobic and anearobic. She has a noted h/o MRSA growth. I recommend considering IV antibiotics due to her continued MRSA infections. She is also under the management of infectious disease specialist and continues IV antibiotics and has a PICC line in place. She is currently on a 6-week course of linezolid and this has been completed. no infection signs noted today. Today, I am concerned about her exposed bone and significant increase in ulcer size and I ordered an x-ray to rule out any underlying bone pathology. She obtained the 2 leg x-rays on which did not demonstrate any osseous destruction, foreign body or soft tissue emphysema or periosteal reaction. Pain: Controlled Host factors: She has significant delays in healing. We discussed tobacco cessation and how this impairs healing. She has some muscle wasting and delayed healing and nutritional supplementation would also be beneficial. She has rheumatoid arthritis and understands this may also delay her healing. She was urged to reduce smoking; discussed at length again today. Her outcome prognosis is poor with continued tobacco use. Labs: Updated labs were recently updated including CBC, CMP, ESR, C-reactive protein, and hemoglobin A1c. No leukocytosis was noted. ESR 24. CRP 23.5. No gross abnormalities with CMP. A1c of 5.5%. Imaging: Left leg xrays were recently updated - there is a healed fracture in the mid third of the left tibia but apparently there is periosteal reaction and what appears to be chronic osteomyelitis with possibility of sinus tract. I answered all the patient's questions. To return to the wound healing center in 1 week or call sooner if the patient has any questions or concerns. Note: [employer] speech recognition distribution estimator software was used to create portions of this document. Sound-alike and misspelled words, as well as other distribution estimator errors may be contained in the documentation.
[2022-01-28 11:29] VITALS: BP 164/72; PULSE 82; RESP 16; TEMP 36.5; BMI 20.5
[2022-01-30 09:49] VITALS: BP 134/81; PULSE 84; RESP 18; TEMP 36.3; BMI 20.5
--- NOTE | 2022-01-30 13:14 | PCM.WC.PN ---
History of Present Illness Date of Service: 01/30/22 Chief Complaint: left leg ulcer History of Wound: This 61-year-old female was seen today for left leg ulcer. She denies fever, chill, nausea, vomiting, diarrhea. She tries to wear compression garment. She denies leg pain, redness, or odor. She denies trauma or recent increase in swelling. She went for consultation with vascular specialist, Dr. Rdz who recommended venous procedural intervention in [place]. She had initial intervention. She did follow-up with vascular specialist who gave her a compression stocking order and she started using this. She continues to smoke and has vascular disease. She also has rheumatoid arthritis. She continues to smoke. Progress of Wound: Stable (superior has now reopened) Objective Data Objective Data Vital Signs: Vital Signs Temp Pulse Resp BP 97.3 F L 84 18 134/81 H 01/30/22 09:49 01/30/22 09:49 01/30/22 09:49 01/30/22 09:49 Oxygen Delivery Method Room Air Weight: 43.091 kg Body Mass Index (BMI) 20.5 Physical Exam Extremity Extremity Narrative: No calf tenderness (negative Winston and Avendano sign, no warmth or calor) Diminished pulses Muscle wasting noted some wound cultures Adjacent skin is atrophic and hairless Prior skin grafting surgical intervention site noted with cicatrix Noted leg edema, increased today Skin Skin Narrative: no kevin purulence, no erythema, no streaking, no odor. mima ulcer increased edema continued. The ulcer size has depth decreased. this was a cluster with a smaller proximal ulcer which is now reopened with 0.3 mm depth. no other new ulcers noted. There is no undermining or maceration Neuro Neuro Narrative: lack of normal epicritic sensation via light touch is consistent with neuropathy status Debridement Note Debridement Note Wound debrided: left leg x 2 Wound Grade/Stage: Type of Debridement: Excisional debridement Anesthesia Used: 4% Lidocaine Solution Depth: in the subcutaneous layer Percentage of wound debrided: 100 Instrument Used: #15 blade Tissue Removed: fibrous, devitalized subcutaneous, biofilm, slough Severity: Fat Layer Exposed Amount of bleeding with debridement: Mild Bleeding Controlled with: Pressure Patient tolerated procedure: Patient tolerated procedure well Post-Debridement Measurements and Additional Note: Post-Debridement Measurements/Treatment WC - Nurse 1 - General Ulcer Assessment Start: 01/09/22 14:32 Freq: Status: Active Protocol: WC.LOWEXT Activity Type Activity Date Activity User E-Sign Co-Sign Detail Recorded Client Recorded Date Recorded By Document 01/09/22 14:32 DL [id number] 01/09/22 14:42 DL Document 01/14/22 09:30 AK [id number] 01/14/22 09:36 AK Document 01/16/22 10:16 RB [id number] 01/16/22 10:20 RB Document 01/21/22 11:33 JF [id number] 01/21/22 11:34 JF Document 01/23/22 09:22 BMF [id number] 01/23/22 09:33 BMF Document 01/28/22 11:29 BMF [id number] 01/28/22 11:32 BM Document 01/30/22 09:49 RB [id number] 01/30/22 09:49 RB 01/09/22 01/14/22 01/16/22 14:32 09:30 10:16 - Today's Visit Information Type of service Follow-up Visit Nurse-only Follow-up Visit (Physician/SETTLEMENT CLERK Visit (Physician/SETTLEMENT CLERK ) ) Arrival Mode Cane Ambulatory Ambulatory Transfer Assistance None None Patient Identification Verified (Name & Yes Yes Yes ) Patient Requires Transmission-Based No No No Precautions Safety Precautions NA Finger Stick Blood Sugar(mg/dl) (if no tchecked indicated): Blood Sugar Stated by Patient Height and Weight Body Mass Index (BMI) 20.5 20.5 20.5 BMI Classification Normal Normal Normal Vital Signs Temperature (97.8 F-99.1 F) 97.6 F L 96.3 F L 97.4 F L Temperature Source Temporal Temporal Temporal Pulse Rate (60-100) 100 69 86 Pulse Location Monitor Monitor Monitor Respiratory Rate (12-18) 20 H 18 Respiratory rate source Observation Observation Oxygen Delivery Method Blood Pressure (90/60-120/80) 140/79 H 122/63 H 149/76 H Blood Pressure Mean (mm Hg) 99 82 100 Source Monitor Monitor Monitor Position Semi-Fowlers Blood Pressure Location Left Arm History Since Last Visit- (Skip if this is Patient's initial visit) Have you changed medications since your No No No last visit? Any new allergies or adverse reactions No No No Had a fall/change in ADL's that may No No No increase risk of falls Signs or symptoms of abuse and/or No No No neglect since last visit Have you been in the hospital since your No No No last visit? Has dressing in place as prescribed Yes Yes Yes Has compression in place as prescribed Yes Yes Yes Has offloadiing in place as prescribed N/A N/A No Experienced any changes in pain level or No No No management Left Footwear Regular Shoe Right Footwear Regular Shoe Pain Scale: 0-10 Numeric Is Patient Pain Free? Yes No Yes 01/21/22 01/23/22 01/28/22 11:33 09:22 11:29 WC - Today's Visit Information Type of service Nurse-only Follow-up Visit Nurse-only Visit (Physician/SETTLEMENT CLERK Visit ) Arrival Mode Ambulatory Ambulatory Ambulatory Transfer Assistance None None Patient Identification Verified (Name & Yes Yes ) Patient Requires Transmission-Based No No Precautions Safety Precautions Finger Stick Blood Sugar(mg/dl) (if indicated): Blood Sugar Height and Weight Body Mass Index (BMI) 20.5 20.5 20.5 BMI Classification Normal Normal Normal Vital Signs Temperature (97.8 F-99.1 F) 97.9 F 97.3 F L 97.7 F L Temperature Source Temporal Temporal Temporal Pulse Rate (60-100) 80 78 82 Pulse Location Monitor Monitor Monitor Respiratory Rate (12-18) 16 16 16 Respiratory rate source Observation Observation Observation Oxygen Delivery Method Room Air Room Air Blood Pressure (90/60-120/80) 136/73 H 131/56 H 164/72 H Blood Pressure Mean (mm Hg) 94 81 102 Source Monitor Monitor Monitor Position Semi-Fowlers Sitting Sitting Blood Pressure Location Left Arm Left Arm Left Arm History Since Last Visit- (Skip if this is Patient's initial visit) Have you changed medications since your No No last visit? Any new allergies or adverse reactions No No Had a fall/change in ADL's that may No No increase risk of falls Signs or symptoms of abuse and/or No No neglect since last visit Have you been in the hospital since your No No last visit? Has dressing in place as prescribed Yes Yes Has compression in place as prescribed Yes Yes Has offloadiing in place as prescribed N/A N/A Experienced any changes in pain level or No No management Left Footwear Regular Shoe Regular Shoe Right Footwear Regular Shoe Regular Shoe Pain Scale: 0-10 Numeric Is Patient Pain Free? No Yes Yes 01/30/22 09:49 WC - Today's Visit Information Type of service Follow-up Visit (Physician/SETTLEMENT CLERK ) Arrival Mode Ambulatory Transfer Assistance None Patient Identification Verified (Name & Yes ) Patient Requires Transmission-Based Precautions Safety Precautions Finger Stick Blood Sugar(mg/dl) (if indicated): Blood Sugar Height and Weight Body Mass Index (BMI) 20.5 BMI Classification Normal Vital Signs Temperature (97.8 F-99.1 F) 97.3 F L Temperature Source Temporal Pulse Rate (60-100) 84 Pulse Location Monitor Respiratory Rate (12-18) 18 Respiratory rate source Observation Oxygen Delivery Method Blood Pressure (90/60-120/80) 134/81 H Blood Pressure Mean (mm Hg) 98 Source Monitor Position Semi-Fowlers Blood Pressure Location Left Arm History Since Last Visit- (Skip if this is Patient's initial visit) Have you changed medications since your No last visit? Any new allergies or adverse reactions No Had a fall/change in ADL's that may No increase risk of falls Signs or symptoms of abuse and/or No neglect since last visit Have you been in the hospital since your No last visit? Has dressing in place as prescribed Yes Has compression in place as prescribed Yes Has offloadiing in place as prescribed No Experienced any changes in pain level or No management Left Footwear Right Footwear Pain Scale: 0-10 Numeric Is Patient Pain Free? Yes - Nurse 1 - General Ulcer Measurement Start: 01/09/22 14:32 Freq: Status: Active Protocol: Activity Type Activity Date Activity User E-Sign Co-Sign Detail Recorded Client Recorded Date Recorded By Document 01/09/22 14:32 DL [id number] 01/09/22 14:42 DL Document 01/16/22 10:16 RB [id number] 01/16/22 10:20 RB Document 01/21/22 11:33 JF [id number] 01/21/22 11:34 JF Document 01/23/22 09:22 BMF [id number] 01/23/22 09:33 BMF Edit Result 01/23/22 09:22 BMF (1) [id number] 01/28/22 11:33 BMF Document 01/30/22 09:44 RB [id number] 01/30/22 09:48 RB (1) Left Calf (cm) => 31 Left Ankle (cm) => 20.2 01/09/22 01/16/22 01/21/22 14:32 10:16 11:33 Wound Center Nurse 1 3-left superior leg -Combined with other wound No -Current Size (cm) - Length 0.2 0.1 -Current Size (cm) - Width 0.2 0.1 -Current Size (cm) - Depth 0.2 0.1 -Total Square Cm 0.04 0.01 -Photo Taken No -Tunneling No -Undermining/Tunneling No -Circular Undermining No -Exudate Amt Small None Present -Exudate Type Serosanguineous -Wound Margin Distinct, Distinct, Outline Outline Attached Attached -Granulation Amt None Present (0 Large (67-100%) %) -Granulation Quality [place] -Slough/Fibrin Yes -Necrosis Amt Small (1-33%) Small (1-33%) -Necrotic Tissue Type Adherent Slough Adherent Slough -Structure Exposed N/A N/A -Texture (Mima-wound Skin Appearance) Scarring Scarring -Moisture (Mima-wound Skin Appearance) No Abnormality Assessed -Color (Mima-wound Skin Appearance) Hemosiderin Assessed Staining -Temperature (Mima-wound Skin No Abnormality No Abnormality Appearance) (Pt Warm) (Pt Warm) -Tenderness on Palpation (Mima-wound No No Skin Appearance) -Ulcer Cleansing Soap and Water Wound Cleanser -Foul Odor after Cleansing No No -Anesthetic Used 5% Lidocaine 4% Lidocaine Gel Solution #1- L inferior yoder -Combined with other wound No -Current Size (cm) - Length 0.5 0.6 0.1 -Current Size (cm) - Width 0.4 0.4 0.3 -Current Size (cm) - Depth 0.3 0.5 0.6 -Total Square Cm 0.20 0.24 0.03 -Date of Last Picture (Recall this field) -Photo Taken No -Epithelialization Small 1-33% -Tunneling No No -Undermining/Tunneling No No -Circular Undermining No No -Exudate Amt Medium Large Small -Exudate Type Serosanguineous Serosanguineous Serosanguineous -Wound Margin Distinct, Distinct, Flat & Intact Outline Outline Attached Attached -Granulation Amt None Present (0 Medium (34-66%) Medium (34-66%) %) -Granulation Quality [place] Red -Slough/Fibrin Yes Yes -Necrosis Amt Small (1-33%) Small (1-33%) Medium (34-66%) -Necrotic Tissue Type Adherent Slough Adherent Slough Adherent Slough -Structure Exposed N/A N/A N/A -Texture (Mima-wound Skin Appearance) Scarring Scarring Assessed -Moisture (Mima-wound Skin Appearance) Dry/Scaly Assessed No Abnormality, Dry/Scaly -Color (Mima-wound Skin Appearance) Hemosiderin Assessed Assessed Staining -Temperature (Mima-wound Skin No Abnormality No Abnormality No Abnormality Appearance) (Pt Warm) (Pt Warm) (Pt Warm) -Tenderness on Palpation (Mima-wound No No No Skin Appearance) -Ulcer Cleansing Soap and Water Wound Cleanser Soap and Water -Foul Odor after Cleansing No No No -Anesthetic Used 5% Lidocaine 4% Lidocaine Gel Solution Lower Limb Edema Present Yes Left Calf (cm) 31 31.5 Left Ankle (cm) 20.4 20.5 01/23/22 01/30/22 09:22 09:44 Wound Center Nurse 1 3-left superior leg -Combined with other wound No -Current Size (cm) - Length 0.5 -Current Size (cm) - Width 0.4 -Current Size (cm) - Depth 0.3 -Total Square Cm 0.20 -Photo Taken Yes -Tunneling No -Undermining/Tunneling No -Circular Undermining No -Exudate Amt Medium -Exudate Type Serosanguineous -Wound Margin Distinct, Outline Attached -Granulation Amt Medium (34-66%) -Granulation Quality [place] -Slough/Fibrin Yes -Necrosis Amt Small (1-33%) -Necrotic Tissue Type Adherent Slough -Structure Exposed N/A -Texture (Mima-wound Skin Appearance) Assessed, Scarring -Moisture (Mima-wound Skin Appearance) Assessed -Color (Mima-wound Skin Appearance) Assessed -Temperature (Mima-wound Skin No Abnormality Appearance) (Pt Warm) -Tenderness on Palpation (Mima-wound No Skin Appearance) -Ulcer Cleansing Wound Cleanser -Foul Odor after Cleansing No -Anesthetic Used 5% Lidocaine Gel #1- L inferior yoder -Combined with other wound No No -Current Size (cm) - Length 0.7 0.9 -Current Size (cm) - Width 0.5 0.4 -Current Size (cm) - Depth 0.6 0.4 -Total Square Cm 0.35 0.36 -Date of Last Picture (Recall this 01/23/22 field) -Photo Taken Yes Yes -Epithelialization -Tunneling No No -Undermining/Tunneling No No -Circular Undermining No No -Exudate Amt Medium Medium -Exudate Type Serosanguineous Serosanguineous -Wound Margin Distinct, Distinct, Outline Outline Attached Attached -Granulation Amt Large (67-100%) Medium (34-66%) -Granulation Quality [place] -Slough/Fibrin Yes Yes -Necrosis Amt Small (1-33%) Medium (34-66%) -Necrotic Tissue Type Adherent Slough Adherent Slough -Structure Exposed N/A -Texture (Mima-wound Skin Appearance) Assessed, Scarring Scarring -Moisture (Mima-wound Skin Appearance) Assessed,Dry/ Assessed Scaly -Color (Mima-wound Skin Appearance) Assessed Assessed -Temperature (Mima-wound Skin No Abnormality No Abnormality Appearance) (Pt Warm) (Pt Warm) -Tenderness on Palpation (Mima-wound Yes No Skin Appearance) -Ulcer Cleansing Soap and Water Wound Cleanser -Foul Odor after Cleansing No -Anesthetic Used 4% Lidocaine 5% Lidocaine Solution Gel Lower Limb Edema Present Yes Left Calf (cm) 31 29.7 Left Ankle (cm) 20.2 19.4 WC - Nurse 2 - General Ulcer CM Notes Start: 01/09/22 14:32 Freq: Status: Active Protocol: Activity Type Activity Date Activity User E-Sign Co-Sign Detail Recorded Client Recorded Date Recorded By Document 01/09/22 14:52 [id number] 01/09/22 14:59 Document 01/16/22 10:31 [id number] 01/16/22 10:34 Document 01/23/22 09:50 [id number] 01/23/22 09:53 Document 01/30/22 10:21 [id number] 01/30/22 10:25 JF 01/09/22 01/16/22 01/23/22 14:52 10:31 09:50 Wound Center Nurse 2 3-left superior leg -Time 14:53 10:31 -Correct Patient Yes No -Correct Side, Site, Position Yes No -Correct Procedure Yes No -Procedure Performed Yes No -Type of Procedure Debridement -Clinical Debridement Subcutaneous -Tissue Removed Subcutaneous -Post Debridement (cm) - Length 0.3 0 -Post Debridement (cm) - Width 0.2 0 -Post Debridement (cm) - Depth 0.2 0 -Total Square (Post) (cm) 0.06 0 -Area of Debridement (cm) - Length 0.3 0 -Area of Debridement (cm) - Width 0.2 0 -Total Square (Area) (cm) 0.06 0 -Tunneling No No -Undermining/Tunneling No No -Circular Undermining No No -Wound/Ulcer Outcome Not Healed Healed- Epithelialized -Ulcer Cleansing Rinsed/ Rinsed/ Irrigated with Irrigated with Saline Saline -Foul Odor after Cleansing No No -Bioengineered Tissue No No -Bleeding Controlled with Pressure -Treatment Response Procedure Tolerated Well -Offloading No -Debridement - Subq, 1st 20sq cm Yes #1- L inferior yoder -Time 14:57 10:33 09:53 -Correct Patient Yes Yes Yes -Correct Side, Site, Position Yes Yes Yes -Correct Procedure Yes Yes Yes -Procedure Performed Yes Yes Yes -Type of Procedure Debridement Debridement Debridement -Clinical Debridement Subcutaneous Subcutaneous Subcutaneous -Tissue Removed Subcutaneous Subcutaneous Subcutaneous -Post Debridement (cm) - Length 0.5 0.6 0.7 -Post Debridement (cm) - Width 0.5 0.5 0.6 -Post Debridement (cm) - Depth 0.3 0.5 0.6 -Total Square (Post) (cm) 0.25 0.30 0.42 -Area of Debridement (cm) - Length 0.5 0.6 0.7 -Area of Debridement (cm) - Width 0.5 0.5 0.6 -Total Square (Area) (cm) 0.25 0.30 0.42 -Tunneling No No No -Undermining/Tunneling No No -Circular Undermining No No No -Wound/Ulcer Outcome Not Healed Not Healed Not Healed -Ulcer Cleansing Rinsed/ Rinsed/ Rinsed/ Irrigated with Irrigated with Irrigated with Saline Saline Saline -Foul Odor after Cleansing No No No -Bioengineered Tissue No No No -Bleeding Controlled with Pressure Pressure Pressure -Treatment Response Procedure Procedure Procedure Tolerated Well Tolerated Well Tolerated Well -Offloading No No No -Debridement - Subq, 1st 20sq cm No Yes Yes Pain Scale: 0-10 Numeric Is Patient Pain Free? Yes Yes Yes 01/30/22 10:21 Wound Center Nurse 2 3-left superior leg -Time 10:22 -Correct Patient Yes -Correct Side, Site, Position Yes -Correct Procedure Yes -Procedure Performed Yes -Type of Procedure Debridement -Clinical Debridement Subcutaneous -Tissue Removed Subcutaneous -Post Debridement (cm) - Length 0.5 -Post Debridement (cm) - Width 0.5 -Post Debridement (cm) - Depth 0.3 -Total Square (Post) (cm) 0.25 -Area of Debridement (cm) - Length 0.5 -Area of Debridement (cm) - Width 0.5 -Total Square (Area) (cm) 0.25 -Tunneling No -Undermining/Tunneling No -Circular Undermining No -Wound/Ulcer Outcome Not Healed -Ulcer Cleansing Rinsed/ Irrigated with Saline -Foul Odor after Cleansing No -Bioengineered Tissue No -Bleeding Controlled with Pressure -Treatment Response Procedure Tolerated Well -Offloading No -Debridement - Subq, 1st 20sq cm No #1- L inferior yoder -Time 10:22 -Correct Patient Yes -Correct Side, Site, Position Yes -Correct Procedure Yes -Procedure Performed Yes -Type of Procedure Debridement -Clinical Debridement Subcutaneous -Tissue Removed Subcutaneous -Post Debridement (cm) - Length 0.7 -Post Debridement (cm) - Width 0.5 -Post Debridement (cm) - Depth 0.7 -Total Square (Post) (cm) 0.35 -Area of Debridement (cm) - Length 0.7 -Area of Debridement (cm) - Width 0.5 -Total Square (Area) (cm) 0.35 -Tunneling No -Undermining/Tunneling No -Circular Undermining No -Wound/Ulcer Outcome Not Healed -Ulcer Cleansing Rinsed/ Irrigated with Saline -Foul Odor after Cleansing No -Bioengineered Tissue No -Bleeding Controlled with Pressure -Treatment Response Procedure Tolerated Well -Offloading No -Debridement - Subq, 1st 20sq cm Yes Pain Scale: 0-10 Numeric Is Patient Pain Free? Yes - Nurse 3 - General Ulcer D/C NN Start: 01/09/22 14:32 Freq: Status: Active Protocol: Activity Type Activity Date Activity User E-Sign Co-Sign Detail Recorded Client Recorded Date Recorded By Document 01/09/22 15:01 [facility] [id number] 01/09/22 15:03 BM Document 01/14/22 09:30 AK [id number] 01/14/22 09:36 AK Document 01/16/22 10:34 JF [id number] 01/16/22 10:35 JF Document 01/21/22 11:33 JF [id number] 01/21/22 11:34 JF Document 01/28/22 11:29 [facility] [id number] 01/28/22 11:32 [facility] Document 01/30/22 10:44 [facility] [id number] 01/30/22 10:45 [facility] 01/09/22 01/14/22 01/16/22 15:01 09:30 10:34 Wound Care Nurse 3 3-left superior leg -Ulcer Cleansing Rinsed/ Soap and Water Irrigated with Saline -Foul Odor after Cleansing No No -Negative Pressure Wound Therapy N/A -Primary Dressing Applied Aquacel AG 2x2 Aquacel AG 4x4 -Primary Dressing Covered/Secured with Dry Gauze Dry Gauze -Other Covering 3M, DRSG PER PA ELECTRICAL AND INSTRUMENT ENGINEER -Aquacel AG 4x4 1 -Aquacel AG 2x2 1 #1- L inferior yoder -Ulcer Cleansing Rinsed/ Soap and Water Rinsed/ Irrigated with Irrigated with Saline Saline -Foul Odor after Cleansing No No No -Negative Pressure Wound Therapy N/A -Primary Dressing Applied Aquacel AG 2x2 Aquacel AG 4x4 Aquacel AG 2x2 -Primary Dressing Covered/Secured with Dry Gauze Dry Gauze -Other Covering 3M, DRSG PER PA ELECTRICAL AND INSTRUMENT ENGINEER -Aquacel AG 4x4 0 -Aquacel AG 2x2 0 1 Left -Lotion applied to leg before No compression wrap -Multi-Layered Wrap Application Multi-Layer Multi-Layer Multi-Layer Comp - Left ($) Comp - Left ($) Comp - Left ($) Treatment Response Procedure Tolerated Well Vital Signs Temperature (97.8 F-99.1 F) 96.3 F L Temperature Source Temporal Pulse Rate (60-100) 69 Pulse Location Monitor Respiratory Rate (12-18) Respiratory rate source Oxygen Delivery Method Blood Pressure (90/60-120/80) 122/63 H Blood Pressure Mean (mm Hg) 82 Source Monitor Position Blood Pressure Location Pain Scale: 0-10 Numeric Is Patient Pain Free? Yes No Yes WC - Visit Discharge Discharge Condition Stable Stable Stable Ambulatory Status Ambulatory Ambulatory Ambulatory Transportation Private Auto Private Auto Medication Reconcilliation completed & Yes Yes provided to patient/care provider Clinical Summary of Care Provided Yes Yes 01/21/22 01/28/22 01/30/22 11:33 11:29 10:44 Wound Care Nurse 3 3-left superior leg -Ulcer Cleansing Rinsed/ Irrigated with Saline -Foul Odor after Cleansing No -Negative Pressure Wound Therapy -Primary Dressing Applied Aquacel AG 2x2 -Primary Dressing Covered/Secured with -Other Covering ABD -Aquacel AG 4x4 -Aquacel AG 2x2 1 #1- L inferior yoder -Ulcer Cleansing Soap and Water Soap and Water Rinsed/ Irrigated with Saline -Foul Odor after Cleansing No No -Negative Pressure Wound Therapy -Primary Dressing Applied Aquacel AG 2x2 Aquacel AG 2x2 Aquacel AG 2x2 -Primary Dressing Covered/Secured with Dry Gauze Other Other -Other Covering abd ABD -Aquacel AG 4x4 -Aquacel AG 2x2 1 1 0 Left -Lotion applied to leg before Yes Yes compression wrap -Multi-Layered Wrap Application Multi-Layer Multi-Layer Multi-Layer Comp - Left ($) Comp - Left ($) Comp - Left ($) Treatment Response Procedure Procedure Tolerated Well Tolerated Well Vital Signs Temperature (97.8 F-99.1 F) 97.9 F 97.7 F L Temperature Source Temporal Temporal Pulse Rate (60-100) 80 82 Pulse Location Monitor Monitor Respiratory Rate (12-18) 16 16 Respiratory rate source Observation Observation Oxygen Delivery Method Room Air Blood Pressure (90/60-120/80) 136/73 H 164/72 H Blood Pressure Mean (mm Hg) 94 102 Source Monitor Monitor Position Semi-Fowlers Sitting Blood Pressure Location Left Arm Left Arm Pain Scale: 0-10 Numeric Is Patient Pain Free? No Yes Yes WC - Visit Discharge Discharge Condition Stable Stable Stable Ambulatory Status Ambulatory Ambulatory Ambulatory Transportation Private Auto Private Auto Private Auto Medication Reconcilliation completed & Yes provided to patient/care provider Clinical Summary of Care Provided Yes 01/14/22 09:34 Wound Center by Curt Barrientos PT REPORTS LUMP IN LEFT AXILLA. She doesn't want to have it checked out before she gets wounds healed on L leg. I told her how extremely important it is to get checked out especially in that location. She also has concerns about hypoglycemia. I advised an appt. with PCP Initialized on 01/14/22 09:34 - END OF NOTE Assessment/Plan Assessment/Plan (1) Delayed wound healing: CODE(S): T14.8XXD - Other injury of unspecified body region, subsequent encounter (2) Ulcer of left lower extremity with fat layer exposed: CODE(S): L97.922 - Non-pressure chronic ulcer of unspecified part of left lower leg with fat layer exposed (3) Osteomyelitis: CODE(S): M86.9 - Osteomyelitis, unspecified (4) Venous insufficiency (chronic) (peripheral): CODE(S): I87.2 - Venous insufficiency (chronic) (peripheral) (5) Localized edema: CODE(S): R60.0 - Localized edema (6) Rheumatoid arthritis: CODE(S): M06.9 - Rheumatoid arthritis, unspecified (7) Tobacco use disorder: CODE(S): F17.200 - Nicotine dependence, unspecified, uncomplicated PLAN: I reviewed and discussed her case today. Debridement was performed today as noted in the clinical panel to the ulcer site. Her new ulcer site is noted. The following work up and care recommendations were made: Dressing: To change daily with hydrogel. Wash: Antibacterial soap and water. Avoid soaking. To avoid bathtub bathing where her leg including her wound are submerged. I recommend she uses traditional antibacterial soap and water. Tissue growth optimization: If she does have a documented history of osteomyelitis that is chronic she may be a candidate for hyperbaric oxygen therapy. 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 Offload: To avoid direct pressure on the site. Vascular / edema: She has nonpalpable pulses and lack of hair. She also has questionable claudication presentation. I recommend noninvasive vascular studies including MARI, segmental thigh and leg pressure, PVR, and systolic toe pressure. The results were reviewed and she has left biphasic waveforms, left MARI of 1.2, and left toe brachial index is 0.72. The segmental thigh and leg pressures were not obtained. There is not a difference of over 30 mmHg when compared to arm pressures. She is also advised to discontinue all tobacco products to optimize healing and limb salvage opportunities. Due to ongoing lack of healing, a vascular referral was provided for Dr. Rdz. She started intervention and was advised to follow-up with her scheduled ultrasound as advised. Medical records have been reviewed and additional interventions not currently planned. Her treatment is mainly for venous insufficiency at this time. There is mild to moderate edema. I recommend 3M 2L multilayer compression dressings. This was applied today and she was advised to keep this intact until next week. Infection: She does not have kevin purulent drainage today or erythema, streaking, or odor. To monitor for this. Culture was previously updated for mrsa pcr, aerobic and anearobic. She has a noted h/o MRSA growth. I recommend considering IV antibiotics due to her continued MRSA infections. She is also under the management of infectious disease specialist and continues IV antibiotics and has a PICC line in place. She is currently on a 6-week course of linezolid and this has been completed. no infection signs noted today. Today, I am concerned about her exposed bone and significant increase in ulcer size and I ordered an x-ray to rule out any underlying bone pathology. She obtained the 2 leg x-rays on which did not demonstrate any osseous destruction, foreign body or soft tissue emphysema or periosteal reaction. Pain: Controlled Host factors: She has significant delays in healing. We discussed tobacco cessation and how this impairs healing. She has some muscle wasting and delayed healing and nutritional supplementation would also be beneficial. She has rheumatoid arthritis and understands this may also delay her healing. She was urged to reduce smoking; discussed at length again today. Her outcome prognosis is poor with continued tobacco use. Labs: Updated labs were recently updated including CBC, CMP, ESR, C-reactive protein, and hemoglobin A1c. No leukocytosis was noted. ESR 24. CRP 23.5. No gross abnormalities with CMP. A1c of 5.5%. Imaging: Left leg xrays were recently updated - there is a healed fracture in the mid third of the left tibia but apparently there is periosteal reaction and what appears to be chronic osteomyelitis with possibility of sinus tract. I answered all the patient's questions. To return to the wound healing center in 1 week or call sooner if the patient has any questions or concerns. Note: [employer] speech recognition pastry cook apprentice software was used to create portions of this document. Sound-alike and misspelled words, as well as other pastry cook apprentice errors may be contained in the documentation.
== END 2022-02-05 23:59 | disposition home or self-care (01) ==
LOC: WC 09:30
PROVIDERS: Referring Provider Podiatrist; Visit Provider Podiatrist
DX: L97.922 Non-pressure chronic ulcer of unspecified part of left lower leg with fat layer exposed (principal); M06.9 Rheumatoid arthritis, unspecified; M86.9 Osteomyelitis, unspecified; R60.0 Localized edema; I87.2 Venous insufficiency (chronic) (peripheral); F17.200 Nicotine dependence, unspecified, uncomplicated; T14.8XXD Other injury of unspecified body region, subsequent encounter
CPT/HCPCS: 11042; 29581

== ENCOUNTER 2022-03-04 09:42 | Outpatient (RCR) | payer MEDICAID, SELFPAY ==
[2022-03-04 11:00] VITALS: BP 131/68; PULSE 77; RESP 18; TEMP 36.7
== END 2022-03-07 23:59 ==
LOC: NS 09:42
PROVIDERS: Referring Provider Podiatrist; Visit Provider Podiatrist
DX: Z71.3 Dietary counseling and surveillance (principal); E46 Unspecified protein-calorie malnutrition; M06.9 Rheumatoid arthritis, unspecified; Z68.1 Body mass index [BMI] 19.9 or less, adult
CPT/HCPCS: 29581; 97802

== ENCOUNTER 2022-03-06 09:30 | Outpatient (RCR) | payer MEDICAID, SELFPAY ==
[2022-02-06 00:46] VITALS: BP 134/81; PULSE 84; RESP 18; TEMP 36.3; BMI 20.5
[2022-02-06 09:19] VITALS: BP 159/60; PULSE 78; TEMP 36.2; BMI 20.5
--- NOTE | 2022-02-06 10:08 | PN.PCM_ITS ---
History of Present Illness Date of Service: 02/06/22 Chief Complaint: left leg ulcer History of Wound: This 61-year-old female was seen today for left leg ulcer. She denies fever, chill, nausea, vomiting, diarrhea. She tries to wear compression garment. She denies leg pain, redness, or odor. She denies trauma or recent increase in swelling. She had venous intervention with vascular specialist, Dr. Rdz. She has been wearing her compression stocking as advised anytime she is not wearing a 3M 2L compression dressing. She continues to smoke and has vascular disease. She also has rheumatoid arthritis. She reports she eats a lot of snacks throughout the day mainly ice cream, grapes, a nd occasionally oranges. Progress of Wound: Stable Objective Data Objective Data Vital Signs: Vital Signs Temp Pulse Resp BP 97.2 F L 78 18 159/60 H 02/06/22 09:19 02/06/22 09:19 02/06/22 00:46 02/06/22 09:19 Weight: 43.091 kg Body Mass Index (BMI) 20.5 Physical Exam Extremity Extremity Narrative: No calf tenderness (negative Winston and Avendano sign, no warmth or calor) Diminished pulses Muscle wasting noted some wound cultures Adjacent skin is atrophic and hairless Prior skin grafting surgical intervention site noted with cicatrix Noted leg edema, increased today Skin Skin Narrative: no kevin purulence, no erythema, no streaking, no odor. mima ulcer increased edema continued. The ulcer size has depth decreased. this was a cluster with a smaller proximal ulcer which is now reopened with 0.3 mm depth. no other new ulcers noted. There is no undermining or maceration Neuro Neuro Narrative: lack of normal epicritic sensation via light touch is consistent with neuropathy status Debridement Note Debridement Note Wound debrided: left leg x 2 Wound Grade/Stage: Type of Debridement: Excisional debridement Anesthesia Used: 4% Lidocaine Solution Depth: in the subcutaneous layer Percentage of wound debrided: 100 Instrument Used: #15 blade Tissue Removed: fibrous, devitalized subcutaneous, biofilm, slough Severity: Fat Layer Exposed Amount of bleeding with debridement: Mild Bleeding Controlled with: Pressure Patient tolerated procedure: Patient tolerated procedure well Post-Debridement Measurements and Additional Note: Post-Debridement Measurements/Treatment - Nurse 1 - General Ulcer Assessment Start: 02/06/22 09:19 Freq: Status: Active Protocol: ELENA Activity Type Activity Date Activity User E-Sign Co-Sign Detail Recorded Client Recorded Date Recorded By Document 02/06/22 09:19 DL [id number] 02/06/22 09:27 DL 02/06/22 09:19 - Today's Visit Information Type of service 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 Any new allergies or adverse reactions No Had a fall/change in ADL's that may No increase risk of falls Signs or symptoms of abuse and/or No neglect since last visit Have you been in the hospital since your No last visit? Has dressing in place as prescribed Yes Has compression in place as prescribed Yes Has offloadiing in place as prescribed N/A Experienced any changes in pain level or No management Pain Scale: 0-10 Numeric Is Patient Pain Free? Yes - Nurse 1 - General Ulcer Measurement Start: 02/06/22 09:19 Freq: Status: Active Protocol: Activity Type Activity Date Activity User E-Sign Co-Sign Detail Recorded Client Recorded Date Recorded By Document 02/06/22 09:19 DL [id number] 02/06/22 09:27 DL 02/06/22 09:19 Wound Center Nurse 1 3-left superior leg -Current Size (cm) - Length 0.3 -Current Size (cm) - Width 0.3 -Current Size (cm) - Depth 0.1 -Total Square Cm 0.09 -Photo Taken Yes -Exudate Amt Small -Wound Margin Distinct, Outline Attached -Granulation Amt Small (1-33%) -Granulation Quality Red -Necrosis Amt None Present (0 %) -Structure Exposed N/A -Texture (Mima-wound Skin Appearance) Scarring -Moisture (Mima-wound Skin Appearance) No Abnormality -Color (Mima-wound Skin Appearance) No Abnormality -Temperature (Mima-wound Skin No Abnormality Appearance) (Pt Warm) -Tenderness on Palpation (Mima-wound No Skin Appearance) -Ulcer Cleansing Soap and Water -Foul Odor after Cleansing Yes, Due to Product Use -Anesthetic Used 5% Lidocaine Gel #1- L inferior yoder -Current Size (cm) - Length 1.7 -Current Size (cm) - Width 0.4 -Current Size (cm) - Depth 1.4 -Total Square Cm 0.68 -Photo Taken Yes -Tunneling Position (O'clock) 3 -Tunneling Distance (cm) 2.5 -Exudate Amt Small -Exudate Type Serosanguineous -Wound Margin Distinct, Outline Attached -Granulation Amt Large (67-100%) -Granulation Quality Red -Necrosis Amt None Present (0 %) -Structure Exposed N/A -Texture (Mima-wound Skin Appearance) Scarring -Moisture (Mima-wound Skin Appearance) No Abnormality -Color (Mima-wound Skin Appearance) No Abnormality -Temperature (Mima-wound Skin No Abnormality Appearance) (Pt Warm) -Tenderness on Palpation (Mima-wound No Skin Appearance) -Ulcer Cleansing Soap and Water -Foul Odor after Cleansing No -Anesthetic Used 5% Lidocaine Gel Left Calf (cm) 29.3 Left Ankle (cm) 19.6 WC - Nurse 2 - General Ulcer CM Notes Start: 02/06/22 09:19 Freq: Status: Active Protocol: Activity Type Activity Date Activity User E-Sign Co-Sign Detail Recorded Client Recorded Date Recorded By Document 02/06/22 09:50 [id number] 02/06/22 09:53 02/06/22 09:50 Wound Center Nurse 2 3-left superior leg -Time 09:51 -Correct Patient Yes -Correct Side, Site, Position Yes -Correct Procedure Yes -Procedure Performed Yes -Type of Procedure Incision & Drainage -Clinical Debridement Subcutaneous -Tissue Removed Subcutaneous -Post Debridement (cm) - Length 0.4 -Post Debridement (cm) - Width 0.3 -Post Debridement (cm) - Depth 0.1 -Total Square (Post) (cm) 0.12 -Area of Debridement (cm) - Length 0.4 -Area of Debridement (cm) - Width 0.3 -Total Square (Area) (cm) 0.12 -Tunneling No -Undermining/Tunneling No -Circular Undermining No -Wound/Ulcer Outcome Not Healed -Ulcer Cleansing Rinsed/ Irrigated with Saline -Foul Odor after Cleansing No -Bioengineered Tissue No -Bleeding Controlled with Pressure -Treatment Response Procedure Tolerated Well -Offloading No -Debridement - Subq, 1st 20sq cm No #1- L inferior yoder -Time 09:51 -Correct Patient Yes -Correct Side, Site, Position Yes -Correct Procedure Yes -Procedure Performed Yes -Type of Procedure Debridement -Clinical Debridement Subcutaneous -Tissue Removed Subcutaneous -Post Debridement (cm) - Length 1.8 -Post Debridement (cm) - Width 0.4 -Post Debridement (cm) - Depth 1.4 -Total Square (Post) (cm) 0.72 -Area of Debridement (cm) - Length 1.8 -Area of Debridement (cm) - Width 0.4 -Total Square (Area) (cm) 0.72 -Tunneling No -Undermining/Tunneling No -Circular Undermining No -Wound/Ulcer Outcome Not Healed -Ulcer Cleansing Rinsed/ Irrigated with Saline -Foul Odor after Cleansing No -Bioengineered Tissue No -Bleeding Controlled with Pressure -Treatment Response Procedure Tolerated Well -Offloading No -Debridement - Subq, 1st 20sq cm Yes Pain Scale: 0-10 Numeric Is Patient Pain Free? Yes Assessment/Plan Assessment/Plan (1) Delayed wound healing: CODE(S): T14.8XXD - Other injury of unspecified body region, subsequent encounter (2) Ulcer of left lower extremity with fat layer exposed: CODE(S): L97.922 - Non-pressure chronic ulcer of unspecified part of left lower leg with fat layer exposed (3) Osteomyelitis: CODE(S): M86.9 - Osteomyelitis, unspecified (4) Venous insufficiency (chronic) (peripheral): CODE(S): I87.2 - Venous insufficiency (chronic) (peripheral) (5) Localized edema: CODE(S): R60.0 - Localized edema (6) Rheumatoid arthritis: CODE(S): M06.9 - Rheumatoid arthritis, unspecified (7) Tobacco use disorder: CODE(S): F17.200 - Nicotine dependence, unspecified, uncomplicated (8) Malnutrition: CODE(S): E46 - Unspecified protein-calorie malnutrition (9) Body mass index [BMI] 19.9 or less, adult: CODE(S): Z68.1 - Body mass index [BMI] 19.9 or less, adult PLAN: I reviewed and discussed her case today. Debridement was performed today as noted in the clinical panel to the ulcer site. Her new ulcer site is noted. The following work up and care recommendations were made: Dressing: To change daily with hydrogel. Wash: Antibacterial soap and water. Avoid soaking. To avoid bathtub bathing where her leg including her wound are submerged. I recommend she uses traditional antibacterial soap and water. Tissue growth optimization: If she does have a documented history of osteomyelitis that is chronic she may be a candidate for hyperbaric oxygen therapy. 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 Offload: To avoid direct pressure on the site. Vascular / edema: She has nonpalpable pulses and lack of hair. She also has questionable claudication presentation. I recommend noninvasive vascular studies including MARI, segmental thigh and leg pressure, PVR, and systolic toe pressure. The results were reviewed and she has left biphasic waveforms, left MARI of 1.2, and left toe brachial index is 0.72. The segmental thigh and leg pressures were not obtained. There is not a difference of over 30 mmHg when compared to arm pressures. She is also advised to discontinue all tobacco products to optimize healing and limb salvage opportunities. Due to ongoing lack of healing, a vascular referral was provided for Dr. Rdz. She started intervention and was advised to follow-up with her scheduled ultrasound as advised. Medical records have been reviewed and additional interventions not currently planned. Her treatment is mainly for venous insufficiency at this time. There is mild to moderate edema. I recommend 3M 2L multilayer compression dressings. This was applied today and she was advised to keep this intact until next week. Infection: She does not have kevin purulent drainage today or erythema, streaking, or odor. To monitor for this. Culture was previously updated for mrsa pcr, aerobic and anearobic. She has a noted h/o MRSA growth. I recommend considering IV antibiotics due to her continued MRSA infections. She is also under the management of infectious disease specialist and continues IV antibiotics and has a PICC line in place. She is currently on a 6-week course of linezolid and this has been completed. no infection signs noted today. Today, I am concerned about her exposed bone and significant increase in ulcer size and I ordered an x-ray to rule out any underlying bone pathology. She obtained the 2 leg x-rays on which did not demonstrate any osseous destruction, foreign body or soft tissue emphysema or periosteal reaction. Pain: Controlled Host factors: She has significant delays in healing. We discussed tobacco cessation and how this impairs healing. She has some muscle wasting and delayed healing and nutritional supplementation would also be beneficial. She is underweight and is not consuming adequate micro or macronutrients. A prescription for Jay and Ensure with 30 g of protein per shake were provided today. I also recommended a nutrition referral to optimize healing. She has rheumatoid arthritis and understands this may also delay her healing. She was urged to reduce smoking; discussed at length again today. Her outcome prognosis is poor with continued tobacco use. Labs: Updated labs were recently updated including CBC, CMP, ESR, C-reactive protein, and hemoglobin A1c. No leukocytosis was noted. ESR 24. CRP 23.5. No gross abnormalities with CMP. A1c of 5.5%. Imaging: Left leg xrays were recently updated - there is a healed fracture in t he mid third of the left tibia but apparently there is periosteal reaction and what appears to be chronic osteomyelitis with possibility of sinus tract. I answered all the patient's questions. To return to the wound healing center in 1 week or call sooner if the patient has any questions or concerns. Note: [employer] speech recognition fixer boarding room software was used to create portions of this document. Sound-alike and misspelled words, as well as other fixer boarding room errors may be contained in the documentation. The medical decision making level is moderate. There is noted moderate risk of morbidity after considering this treatment plan and diagnostic data. Considerations were given to prescription management, decisions regarding surgical options, or social determinants of health. The problems addressed require a moderate decision making level which includes one or more chronic illnesses (w/ exacerbation, progression, or side effects), two or more stable chronic illnesses, one undiagnosed new problem w/ uncertain prognosis, one acute illness with systemic symptoms, or one acute complicated injury.
[2022-02-13 09:37] VITALS: BP 132/88; PULSE 78; RESP 19; TEMP 36.2; BMI 20.5
--- NOTE | 2022-02-13 16:04 | PCM.WC.PN ---
History of Present Illness Date of Service: 02/13/22 Chief Complaint: left leg ulcer History of Wound: This 61-year-old female was seen today for left leg ulcer. She denies fever, chill, nausea, vomiting, diarrhea. She tries to wear compression garment. She denies leg pain, redness, or odor. She denies trauma or recent increase in swelling. She had venous intervention with vascular specialist, Dr. Rdz. She has been wearing her compression stocking as advised anytime she is not wearing a 3M 2L compression dressing. She continues to smoke and has vascular disease. She also has rheumatoid arthritis. She is amendable to meet with a braille translator and tried to get the advised nutritional supplements. Due to insurance and availability she will need to wait about two weeks. Progress of Wound: Stable Objective Data Objective Data Vital Signs: Vital Signs Temp Pulse Resp BP 97.1 F L 78 19 H 132/88 H 02/13/22 09:37 02/13/22 09:37 02/13/22 09:37 02/13/22 09:37 Weight: 43.091 kg Body Mass Index (BMI) 20.5 Physical Exam Extremity Extremity Narrative: No calf tenderness (negative Winston and Avendano sign, no warmth or calor) Diminished pulses Muscle wasting noted some wound cultures Adjacent skin is atrophic and hairless Prior skin grafting surgical intervention site noted with cicatrix Noted leg edema, increased today Skin Skin Narrative: no kevin purulence, no erythema, no streaking, no odor. mima ulcer increased edema continued. The ulcer size has depth decreased. this was a cluster with a smaller proximal ulcer which is now reopened with 0.3 mm depth. no other new ulcers noted. There is no undermining or maceration Neuro Neuro Narrative: lack of normal epicritic sensation via light touch is consistent with neuropathy status Debridement Note Debridement Note Wound debrided: left leg Wound Grade/Stage: Type of Debridement: Excisional debridement Anesthesia Used: 4% Lidocaine Solution Depth: in the subcutaneous layer Percentage of wound debrided: 100 Instrument Used: #15 blade Tissue Removed: fibrous, devitalized subcutaneous, biofilm, slough Severity: Fat Layer Exposed Amount of bleeding with debridement: Mild Bleeding Controlled with: Pressure Patient tolerated procedure: Patient tolerated procedure well Post-Debridement Measurements and Additional Note: Post-Debridement Measurements/Treatment WC - Nurse 1 - General Ulcer Assessment Start: 02/06/22 09:19 Freq: Status: Active Protocol: ELENA Activity Type Activity Date Activity User E-Sign Co-Sign Detail Recorded Client Recorded Date Recorded By Document 02/06/22 09:19 DL [id number] 02/06/22 09:27 DL Document 02/13/22 09:37 ML [id number] 02/13/22 09:40 ML 02/06/22 02/13/22 09:19 09:37 WC - Today's Visit Information Type of service Follow-up Visit Follow-up Visit (Physician/COMMERCIAL DESIGNER (Physician/COMMERCIAL DESIGNER ) ) Arrival Mode Ambulatory Ambulatory Transfer Assistance None None Patient Identification Verified (Name & Yes Yes ) Patient Requires Transmission-Based No No Precautions Safety Precautions NA Height and Weight Body Mass Index (BMI) 20.5 20.5 BMI Classification Normal Normal Vital Signs Temperature (97.8 F-99.1 F) 97.2 F L 97.1 F L Temperature Source Temporal Temporal Pulse Rate (60-100) 78 78 Pulse Location Monitor Monitor Respiratory Rate (12-18) 19 H Respiratory rate source Observation Blood Pressure (90/60-120/80) 159/60 H 132/88 H Blood Pressure Mean (mm Hg) 93 102 Source Monitor Monitor Position Sitting Blood Pressure Location Right Arm History Since Last Visit- (Skip if this is Patient's initial visit) Have you changed medications since your No No last visit? Any new allergies or adverse reactions No No Had a fall/change in ADL's that may No No increase risk of falls Signs or symptoms of abuse and/or No No neglect since last visit Have you been in the hospital since your No No last visit? Has dressing in place as prescribed Yes Yes Has compression in place as prescribed Yes Yes Has offloadiing in place as prescribed N/A N/A Experienced any changes in pain level or No No management Left Footwear Regular Shoe Right Footwear Regular Shoe Pain Scale: 0-10 Numeric Is Patient Pain Free? Yes Yes - Nurse 1 - General Ulcer Measurement Start: 02/06/22 09:19 Freq: Status: Active Protocol: Activity Type Activity Date Activity User E-Sign Co-Sign Detail Recorded Client Recorded Date Recorded By Document 02/06/22 09:19 DL [id number] 02/06/22 09:27 DL Document 02/13/22 09:37 ML [id number] 02/13/22 09:40 ML 02/06/22 02/13/22 09:19 09:37 Wound Center Nurse 1 3-left superior leg -Current Size (cm) - Length 0.3 0.5 -Current Size (cm) - Width 0.3 0.5 -Current Size (cm) - Depth 0.1 0.1 -Total Square Cm 0.09 0.25 -Photo Taken Yes -Epithelialization Small 1-33% -Exudate Amt Small Small -Exudate Type Serosanguineous -Wound Margin Distinct, Distinct, Outline Outline Attached Attached -Granulation Amt Small (1-33%) Small (1-33%) -Granulation Quality Red -Slough/Fibrin Yes -Necrosis Amt None Present (0 Small (1-33%) %) -Necrotic Tissue Type Adherent Slough -Structure Exposed N/A -Texture (Mima-wound Skin Appearance) Scarring Assessed -Moisture (Mima-wound Skin Appearance) No Abnormality Assessed -Color (Mima-wound Skin Appearance) No Abnormality Assessed -Temperature (Mima-wound Skin No Abnormality No Abnormality Appearance) (Pt Warm) (Pt Warm) -Tenderness on Palpation (Mima-wound No No Skin Appearance) -Ulcer Cleansing Soap and Water Soap and Water -Foul Odor after Cleansing Yes, Due to No Product Use -Anesthetic Used 5% Lidocaine 5% Lidocaine Gel Gel #1- L inferior yoder -Current Size (cm) - Length 1.7 0.8 -Current Size (cm) - Width 0.4 0.3 -Current Size (cm) - Depth 1.4 0.5 -Total Square Cm 0.68 0.24 -Photo Taken Yes -Epithelialization Small 1-33% -Tunneling Position (O'clock) 3 -Tunneling Distance (cm) 2.5 -Exudate Amt Small Small -Exudate Type Serosanguineous Serosanguineous -Wound Margin Distinct, Distinct, Outline Outline Attached Attached -Granulation Amt Large (67-100%) Small (1-33%) -Granulation Quality Red -Slough/Fibrin Yes -Necrosis Amt None Present (0 Small (1-33%) %) -Necrotic Tissue Type Adherent Slough -Structure Exposed N/A -Texture (Mima-wound Skin Appearance) Scarring Assessed -Moisture (Mima-wound Skin Appearance) No Abnormality Assessed -Color (Mima-wound Skin Appearance) No Abnormality Assessed -Temperature (Mima-wound Skin No Abnormality No Abnormality Appearance) (Pt Warm) (Pt Warm) -Tenderness on Palpation (Mima-wound No No Skin Appearance) -Ulcer Cleansing Soap and Water Soap and Water -Foul Odor after Cleansing No No -Anesthetic Used 5% Lidocaine 5% Lidocaine Gel Gel Left Calf (cm) 29.3 Left Ankle (cm) 19.6 WC - Nurse 2 - General Ulcer CM Notes Start: 02/06/22 09:19 Freq: Status: Active Protocol: Activity Type Activity Date Activity User E-Sign Co-Sign Detail Recorded Client Recorded Date Recorded By Document 02/06/22 09:50 [id number] 02/06/22 09:53 Document 02/13/22 09:57 [id number] 02/13/22 10:02 02/06/22 02/13/22 09:50 09:57 Wound Center Nurse 2 3-left superior leg -Time 09:51 09:58 -Correct Patient Yes Yes -Correct Side, Site, Position Yes Yes -Correct Procedure Yes Yes -Procedure Performed Yes Yes -Type of Procedure Incision & Debridement Drainage -Clinical Debridement Subcutaneous Subcutaneous -Tissue Removed Subcutaneous Subcutaneous -Post Debridement (cm) - Length 0.4 0.6 -Post Debridement (cm) - Width 0.3 0.5 -Post Debridement (cm) - Depth 0.1 0.1 -Total Square (Post) (cm) 0.12 0.30 -Area of Debridement (cm) - Length 0.4 0.6 -Area of Debridement (cm) - Width 0.3 0.5 -Total Square (Area) (cm) 0.12 0.30 -Tunneling No No -Undermining/Tunneling No No -Circular Undermining No No -Wound/Ulcer Outcome Not Healed Not Healed -Ulcer Cleansing Rinsed/ Rinsed/ Irrigated with Irrigated with Saline Saline -Foul Odor after Cleansing No No -Bioengineered Tissue No No -Bleeding Controlled with Pressure Pressure -Treatment Response Procedure Procedure Tolerated Well Tolerated Well -Offloading No No -Debridement - Subq, 1st 20sq cm No No #1- L inferior yoder -Time 09:51 09:58 -Correct Patient Yes Yes -Correct Side, Site, Position Yes Yes -Correct Procedure Yes Yes -Procedure Performed Yes Yes -Type of Procedure Debridement Debridement -Clinical Debridement Subcutaneous Subcutaneous -Tissue Removed Subcutaneous Subcutaneous -Post Debridement (cm) - Length 1.8 0.8 -Post Debridement (cm) - Width 0.4 0.4 -Post Debridement (cm) - Depth 1.4 0.5 -Total Square (Post) (cm) 0.72 0.32 -Area of Debridement (cm) - Length 1.8 0.8 -Area of Debridement (cm) - Width 0.4 0.4 -Total Square (Area) (cm) 0.72 0.32 -Tunneling No No -Undermining/Tunneling No No -Circular Undermining No No -Wound/Ulcer Outcome Not Healed Not Healed -Ulcer Cleansing Rinsed/ Rinsed/ Irrigated with Irrigated with Saline Saline -Foul Odor after Cleansing No No -Bioengineered Tissue No No -Bleeding Controlled with Pressure Pressure -Treatment Response Procedure Procedure Tolerated Well Tolerated Well -Offloading No No -Debridement - Subq, 1st 20sq cm Yes Yes Pain Scale: 0-10 Numeric Is Patient Pain Free? Yes Yes WC - Nurse 3 - General Ulcer D/C NN Start: 02/06/22 09:19 Freq: Status: Active Protocol: Activity Type Activity Date Activity User E-Sign Co-Sign Detail Recorded Client Recorded Date Recorded By Document 02/06/22 10:07 DL [id number] 02/06/22 10:10 DL Document 02/13/22 10:16 DL [id number] 02/13/22 10:31 DL 02/06/22 02/13/22 10:07 10:16 Wound Care Nurse 3 3-left superior leg -Ulcer Cleansing Soap and Water Not Cleansed -Foul Odor after Cleansing No -Primary Dressing Applied Aquacel AG 2x2, Aquacel AG 2x2 Optilok 6.5x10 -Other Dressing superabsorber -Primary Dressing Covered/Secured with Dry Gauze & Roll Gauze -Aquacel AG 2x2 1 1 -Optilok 6.5x10 1 #1- L inferior yoder -Ulcer Cleansing Soap and Water Rinsed/ Irrigated with Saline -Foul Odor after Cleansing No No -Primary Dressing Applied Optilok 6.5x10 -Other Dressing aquacel ag aqaucel ag/ superabsorber -Primary Dressing Covered/Secured with Dry Gauze & Roll Gauze, Secured with Tape -Optilok 6.5x10 1 Left -Multi-Layered Wrap Application Multi-Layer Multi-Layer Comp - Left ($) Comp - Left ($) Treatment Response Procedure Procedure Tolerated Well Tolerated Well Pain Scale: 0-10 Numeric Is Patient Pain Free? Yes Yes WC - Visit Discharge Discharge Condition Stable Stable Ambulatory Status Ambulatory Ambulatory Transportation Private [facility] Facility Type Home Health Orders Sent Yes Assessment/Plan Assessment/Plan (1) Delayed wound healing: CODE(S): T14.8XXD - Other injury of unspecified body region, subsequent encounter (2) Ulcer of left lower extremity with fat layer exposed: CODE(S): L97.922 - Non-pressure chronic ulcer of unspecified part of left lower leg with fat layer exposed (3) Osteomyelitis: CODE(S): M86.9 - Osteomyelitis, unspecified (4) Venous insufficiency (chronic) (peripheral): CODE(S): I87.2 - Venous insufficiency (chronic) (peripheral) (5) Localized edema: CODE(S): R60.0 - Localized edema (6) Rheumatoid arthritis: CODE(S): M06.9 - Rheumatoid arthritis, unspecified (7) Tobacco use disorder: CODE(S): F17.200 - Nicotine dependence, unspecified, uncomplicated (8) Malnutrition: CODE(S): E46 - Unspecified protein-calorie malnutrition (9) Body mass index [BMI] 19.9 or less, adult: CODE(S): Z68.1 - Body mass index [BMI] 19.9 or less, adult PLAN: I reviewed and discussed her case today. Debridement was performed today as noted in the clinical panel to the ulcer site. Her new ulcer site is noted. The following work up and care recommendations were made: Dressing: To change daily with hydrogel. Wash: Antibacterial soap and water. Avoid soaking. To avoid bathtub bathing where her leg including her wound are submerged. I recommend she uses traditional antibacterial soap and water. Tissue growth optimization: If she does have a documented history of osteomyelitis that is chronic she may be a candidate for hyperbaric oxygen therapy. 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 However, I would like to confirm if this is a relative or firm contraindication. She will consider this treatment again. Her last seizure was noted to be about three years ago. Offload: To avoid direct pressure on the site. Vascular / edema: She has nonpalpable pulses and lack of hair. She also has questionable claudication presentation. I recommend noninvasive vascular studies including MARI, segmental thigh and leg pressure, PVR, and systolic toe pressure. The results were reviewed and she has left biphasic waveforms, left MARI of 1.2, and left toe brachial index is 0.72. The segmental thigh and leg pressures were not obtained. There is not a difference of over 30 mmHg when compared to arm pressures. She is also advised to discontinue all tobacco products to optimize healing and limb salvage opportunities. Due to ongoing lack of healing, a vascular referral was provided for Dr. Rdz. She started intervention and was advised to follow-up with her scheduled ultrasound as advised. Medical records have been reviewed and additional interventions not currently planned. Her treatment is mainly for venous insufficiency at this time. There is mild to moderate edema. I recommend 3M 2L multilayer compression dressings. This was applied today and she was advised to keep this intact until next week. Infection: She does not have kevin purulent drainage today or erythema, streaking, or odor. To monitor for this. Culture was previously updated for mrsa pcr, aerobic and anearobic. She has a noted h/o MRSA growth. I recommend considering IV antibiotics due to her continued MRSA infections. She is also under the management of infectious disease specialist and continues IV antibiotics and has a PICC line in place. She is currently on a 6-week course of linezolid and this has been completed. no infection signs noted today. Today, I am concerned about her exposed bone and significant increase in ulcer size and I ordered an x-ray to rule out any underlying bone pathology. She obtained the 2 leg x-rays on which did not demonstrate any osseous destruction, foreign body or soft tissue emphysema or periosteal reaction. Pain: Controlled Host factors: She has significant delays in healing. We discussed tobacco cessation and how this impairs healing. She has some muscle wasting and delayed healing and nutritional supplementation would also be beneficial. She is underweight and is not consuming adequate micro or macronutrients. A prescription for Jay and Ensure with 30 g of protein per shake were provided today. I also recommended a nutrition referral to optimize healing; scheduling in process. She has rheumatoid arthritis and understands this may also delay her healing. She was urged to reduce smoking; discussed at length again today. Her outcome prognosis is poor with continued tobacco use. Labs: Updated labs were recently updated including CBC, CMP, ESR, C-reactive protein, and hemoglobin A1c. No leukocytosis was noted. ESR 24. CRP 23.5. No gross abnormalities with CMP. A1c of 5.5%. Imaging: Left leg xrays were recently updated - there is a healed fracture in the mid third of the left tibia but apparently there is periosteal reaction and what appears to be chronic osteomyelitis with possibility of sinus tract. I answered all the patient's questions. To return to the wound healing center in 1 week or call sooner if the patient has any questions or concerns. Note: [employer] speech recognition data mining analyst software was used to create portions of this document. Sound-alike and misspelled words, as well as other data mining analyst errors may be contained in the documentation. 21 minutes was spent on this encounter. This included face to face and non face to face care including preparing for the visit, reviewing the history, performing the exam, counseling and providing education to the patient, family, or caregiver, ordering medications/test/ procedures if indicated as documented, communicating with other healthcare providers, documenting information in the medical record, interpreting / sharing this information when indicated as documented, and care coordination.
[2022-02-20 09:11] VITALS: BP 142/79; PULSE 94; RESP 18; TEMP 36.6; BMI 20.5
--- NOTE | 2022-02-20 10:27 | PN.PCM_ITS ---
History of Present Illness Date of Service: 02/20/22 Chief Complaint: left leg ulcer History of Wound: This 61-year-old female was seen today for left leg ulcer. She denies fever, chill, nausea, vomiting, diarrhea. She tries to wear compression garment. She denies leg pain, redness, or odor. She denies trauma or recent increase in swelling. She had venous intervention with vascular specialist, Dr. Rdz. She has been wearing her compression stocking as advised anytime she is not wearing a 3M 2L compression dressing. She continues to smoke and has vascular disease. She also has rheumatoid arthritis. She is amendable to meet with a line dancer and tried to get the advised nutritional supplements. Due to insurance and availability she will need to wait a little longer. She did not get her x-ray performed yet and plans to do later today. She refuses to quit smoking. Progress of Wound: Stable Objective Data Objective Data Vital Signs: Vital Signs Temp Pulse Resp BP 98 F 94 18 142/79 H 02/20/22 09:11 02/20/22 09:11 02/20/22 09:11 02/20/22 09:11 Weight: 43.091 kg Body Mass Index (BMI) 20.5 Physical Exam Extremity Extremity Narrative: No calf tenderness (negative Winston and Avendano sign, no warmth or calor) Diminished pulses Muscle wasting noted some wound cultures Adjacent skin is atrophic and hairless Prior skin grafting surgical intervention site noted with cicatrix Noted leg edema, increased today Skin Skin Narrative: no kevin purulence, no erythema, no streaking, no odor. mima ulcer increased edema continued. There is positive probe to bone of the distal aspect and some minor Mima ulcer inflammation without new ulcers Neuro Neuro Narrative: lack of normal epicritic sensation via light touch is consistent with neuropathy status Debridement Note Debridement Note Wound debrided: left leg Wound Grade/Stage: Type of Debridement: Excisional debridement Anesthesia Used: 4% Lidocaine Solution Depth: in the subcutaneous layer Percentage of wound debrided: 100 Instrument Used: #15 blade Tissue Removed: fibrous, devitalized subcutaneous, biofilm, slough Severity: Fat Layer Exposed Amount of bleeding with debridement: Mild Bleeding Controlled with: Pressure Patient tolerated procedure: Patient tolerated procedure well Post-Debridement Measurements and Additional Note: Post-Debridement Measurements/Treatment WC - Nurse 1 - General Ulcer Assessment Start: 02/06/22 09:19 Freq: Status: Active Protocol: [email or web address] Activity Type Activity Date Activity User E-sign Co-sign Detail Recorded Client Recorded Date Recorded By Document 02/06/22 09:19 DL [id number] 02/06/22 09:27 DL Document 02/13/22 09:37 ML [id number] 02/13/22 09:40 ML Document 02/20/22 09:11 RB [id number] 02/20/22 09:26 RB 02/06/22 02/13/22 02/20/22 09:19 09:37 09:11 - Today's Visit Information Type of service Follow-up Visit Follow-up Visit Follow-up Visit (Physician/A CLASS LINEMAN (Physician/A CLASS LINEMAN (Physician/A CLASS LINEMAN ) ) ) Arrival Mode Ambulatory Ambulatory Ambulatory Transfer Assistance None None None Patient Identification Verified (Name & Yes Yes Yes ) Patient Requires Transmission-Based No No No Precautions Safety Precautions NA Height and Weight Body Mass Index (BMI) 20.5 20.5 20.5 BMI Classification Normal Normal Normal Vital Signs Temperature (97.8 F-99.1 F) 97.2 F L 97.1 F L 98 F Temperature Source Temporal Temporal Temporal Pulse Rate (60-100) 78 78 94 Pulse Location Monitor Monitor Monitor Respiratory Rate (12-18) 19 H 18 Respiratory rate source Observation Observation Blood Pressure (90/60-120/80) 159/60 H 132/88 H 142/79 H Blood Pressure Mean (mm Hg) 93 102 100 Source Monitor Monitor Monitor Position Sitting Semi-Fowlers Blood Pressure Location Right Arm Left Arm History Since Last Visit- (Skip if this is Patient's initial visit) Have you changed medications since your No No No last visit? Any new allergies or adverse reactions No No No Had a fall/change in ADL's that may No No No increase risk of falls Signs or symptoms of abuse and/or No No No neglect since last visit Have you been in the hospital since your No No No last visit? Has dressing in place as prescribed Yes Yes Yes Has compression in place as prescribed Yes Yes Yes Has offloadiing in place as prescribed N/A N/A No Experienced any changes in pain level or No No No management Left Footwear Regular Shoe Right Footwear Regular Shoe Pain Scale: 0-10 Numeric Is Patient Pain Free? Yes Yes Yes - Nurse 1 - General Ulcer Measurement Start: 02/06/22 09:19 Freq: Status: Active Protocol: Activity Type Activity Date Activity User E-sign Co-sign Detail Recorded Client Recorded Date Recorded By Document 02/06/22 09:19 DL [id number] 02/06/22 09:27 DL Document 02/13/22 09:37 ML [id number] 02/13/22 09:40 ML Document 02/20/22 09:11 RB [id number] 02/20/22 09:26 RB 02/06/22 02/13/22 02/20/22 09:19 09:37 09:11 Wound Center Nurse 1 3-left superior leg -Combined with other wound No -Current Size (cm) - Length 0.3 0.5 0.5 -Current Size (cm) - Width 0.3 0.5 0.3 -Current Size (cm) - Depth 0.1 0.1 0.1 -Total Square Cm 0.09 0.25 0.15 -Photo Taken Yes Yes -Epithelialization Small 1-33% -Tunneling No -Undermining/Tunneling No -Circular Undermining No -Exudate Amt Small Small Medium -Exudate Type Serosanguineous Serosanguineous -Wound Margin Distinct, Distinct, Distinct, Outline Outline Outline Attached Attached Attached -Granulation Amt Small (1-33%) Small (1-33%) Medium (34-66%) -Granulation Quality Red [place],Red -Slough/Fibrin Yes Yes -Necrosis Amt None Present (0 Small (1-33%) Small (1-33%) %) -Necrotic Tissue Type Adherent Slough Adherent Slough -Structure Exposed N/A N/A -Texture (Mima-wound Skin Appearance) Scarring Assessed Friable -Moisture (Mima-wound Skin Appearance) No Abnormality Assessed Assessed -Color (Imma-wound Skin Appearance) No Abnormality Assessed Assessed -Temperature (Mima-wound Skin No Abnormality No Abnormality No Abnormality Appearance) (Pt Warm) (Pt Warm) (Pt Warm) -Tenderness on Palpation (Mima-wound No No No Skin Appearance) -Ulcer Cleansing Soap and Water Soap and Water Wound Cleanser -Foul Odor after Cleansing Yes, Due to No No Product Use -Anesthetic Used 5% Lidocaine 5% Lidocaine 5% Lidocaine Gel Gel Gel #1- L inferior yoder -Combined with other wound No -Current Size (cm) - Length 1.7 0.8 0.7 -Current Size (cm) - Width 0.4 0.3 0.5 -Current Size (cm) - Depth 1.4 0.5 1 -Total Square Cm 0.68 0.24 0.35 -Photo Taken Yes Yes -Epithelialization Small 1-33% -Tunneling No -Tunneling Position (O'clock) 3 -Tunneling Distance (cm) 2.5 -Undermining/Tunneling No -Circular Undermining No -Exudate Amt Small Small Large -Exudate Type Serosanguineous Serosanguineous Serosanguineous -Wound Margin Distinct, Distinct, Distinct, Outline Outline Outline Attached Attached Attached -Granulation Amt Large (67-100%) Small (1-33%) Medium (34-66%) -Granulation Quality Red [place],Red -Slough/Fibrin Yes Yes -Necrosis Amt None Present (0 Small (1-33%) Small (1-33%) %) -Necrotic Tissue Type Adherent Slough Adherent Slough -Structure Exposed N/A N/A -Texture (Mima-wound Skin Appearance) Scarring Assessed Assessed, Friable, Scarring -Moisture (Mima-wound Skin Appearance) No Abnormality Assessed Assessed -Color (Mima-wound Skin Appearance) No Abnormality Assessed Assessed -Temperature (Mima-wound Skin No Abnormality No Abnormality No Abnormality Appearance) (Pt Warm) (Pt Warm) (Pt Warm) -Tenderness on Palpation (Mima-wound No No No Skin Appearance) -Ulcer Cleansing Soap and Water Soap and Water Wound Cleanser -Foul Odor after Cleansing No No No -Anesthetic Used 5% Lidocaine 5% Lidocaine 5% Lidocaine Gel Gel Gel Lower Limb Edema Present Yes Left Calf (cm) 29.3 30 Left Ankle (cm) 19.6 19 WC - Nurse 2 - General Ulcer CM Notes Start: 02/06/22 09:19 Freq: Status: Active Protocol: Activity Type Activity Date Activity User E-sign Co-sign Detail Recorded Client Recorded Date Recorded By Document 02/06/22 09:50 TENZIN [id number] 02/06/22 09:53 TENZIN Document 02/13/22 09:57 TENZIN [id number] 02/13/22 10:02 TENZIN Document 02/20/22 09:47 [id number] 02/20/22 09:52 02/06/22 02/13/22 02/20/22 09:50 09:57 09:47 Wound Center Nurse 2 3-left superior leg -Time 09:51 09:58 09:48 -Correct Patient Yes Yes Yes -Correct Side, Site, Position Yes Yes Yes -Correct Procedure Yes Yes Yes -Procedure Performed Yes Yes Yes -Type of Procedure Incision & Debridement Debridement Drainage -Clinical Debridement Subcutaneous Subcutaneous Subcutaneous -Tissue Removed Subcutaneous Subcutaneous Subcutaneous -Post Debridement (cm) - Length 0.4 0.6 0.5 -Post Debridement (cm) - Width 0.3 0.5 0.4 -Post Debridement (cm) - Depth 0.1 0.1 0.1 -Total Square (Post) (cm) 0.12 0.30 0.20 -Area of Debridement (cm) - Length 0.4 0.6 0.5 -Area of Debridement (cm) - Width 0.3 0.5 0.4 -Total Square (Area) (cm) 0.12 0.30 0.20 -Tunneling No No No -Undermining/Tunneling No No No -Circular Undermining No No No -Wound/Ulcer Outcome Not Healed Not Healed Not Healed -Ulcer Cleansing Rinsed/ Rinsed/ Rinsed/ Irrigated with Irrigated with Irrigated with Saline Saline Saline -Foul Odor after Cleansing No No No -Bioengineered Tissue No No No -Bleeding Controlled with Pressure Pressure Pressure -Treatment Response Procedure Procedure Procedure Tolerated Well Tolerated Well Tolerated Well -Offloading No No No -Debridement - Subq, 1st 20sq cm No No Yes #1- L inferior yoder -Time 09:51 09:58 09:48 -Correct Patient Yes Yes Yes -Correct Side, Site, Position Yes Yes Yes -Correct Procedure Yes Yes Yes -Procedure Performed Yes Yes Yes -Type of Procedure Debridement Debridement Debridement -Clinical Debridement Subcutaneous Subcutaneous Subcutaneous -Tissue Removed Subcutaneous Subcutaneous Subcutaneous -Post Debridement (cm) - Length 1.8 0.8 0.7 -Post Debridement (cm) - Width 0.4 0.4 0.4 -Post Debridement (cm) - Depth 1.4 0.5 0.6 -Total Square (Post) (cm) 0.72 0.32 0.28 -Area of Debridement (cm) - Length 1.8 0.8 0.7 -Area of Debridement (cm) - Width 0.4 0.4 0.4 -Total Square (Area) (cm) 0.72 0.32 0.28 -Tunneling No No No -Undermining/Tunneling No No No -Circular Undermining No No No -Wound/Ulcer Outcome Not Healed Not Healed Not Healed -Ulcer Cleansing Rinsed/ Rinsed/ Rinsed/ Irrigated with Irrigated with Irrigated with Saline Saline Saline -Foul Odor after Cleansing No No No -Bioengineered Tissue No No No -Bleeding Controlled with Pressure Pressure Pressure -Treatment Response Procedure Procedure Procedure Tolerated Well Tolerated Well Tolerated Well -Offloading No No No -Debridement - Subq, 1st 20sq cm Yes Yes No Pain Scale: 0-10 Numeric Is Patient Pain Free? Yes Yes Yes WC - Nurse 3 - General Ulcer D/C NN Start: 02/06/22 09:19 Freq: Status: Active Protocol: Activity Type Activity Date Activity User E-sign Co-sign Detail Recorded Client Recorded Date Recorded By Document 02/06/22 10:07 DL [id number] 02/06/22 10:10 DL Document 02/13/22 10:16 DL [id number] 02/13/22 10:31 DL Document 02/20/22 10:00 [facility] [id number] 02/20/22 10:01 [facility] 02/06/22 02/13/22 02/20/22 10:07 10:16 10:00 Wound Care Nurse 3 3-left superior leg -Ulcer Cleansing Soap and Water Not Cleansed Rinsed/ Irrigated with Saline -Foul Odor after Cleansing No No -Primary Dressing Applied Aquacel AG 2x2, Aquacel AG 2x2 Other Optilok 6.5x10 -Other Dressing superabsorber aquacel ag, drsg per rb rn -Primary Dressing Covered/Secured with Dry Gauze & Roll Gauze -Aquacel AG 2x2 1 1 -Optilok 6.5x10 1 #1- L inferior yoder -Ulcer Cleansing Soap and Water Rinsed/ Rinsed/ Irrigated with Irrigated with Saline Saline -Foul Odor after Cleansing No No No -Primary Dressing Applied Optilok 6.5x10 Other -Other Dressing aquacel ag aqaucel ag/ aquacel ag; superabsorber drsg per rb rn -Primary Dressing Covered/Secured with Dry Gauze & Roll Gauze, Secured with Tape -Optilok 6.5x10 1 Left -Multi-Layered Wrap Application Multi-Layer Multi-Layer Multi-Layer Comp - Left ($) Comp - Left ($) Comp - Left ($) Treatment Response Procedure Procedure Procedure Tolerated Well Tolerated Well Tolerated Well Pain Scale: 0-10 Numeric Is Patient Pain Free? Yes Yes Yes WC - Visit Discharge Discharge Condition Stable Stable Stable Ambulatory Status Ambulatory Ambulatory Ambulatory Transportation Private Auto Private Auto Facility Type Home Health Orders Sent Yes Assessment/Plan Assessment/Plan (1) Delayed wound healing: CODE(S): T14.8XXD - Other injury of unspecified body region, subsequent encounter (2) Ulcer of left lower extremity with fat layer exposed: CODE(S): L97.922 - Non-pressure chronic ulcer of unspecified part of left lower leg with fat layer exposed (3) Osteomyelitis: CODE(S): M86.9 - Osteomyelitis, unspecified (4) Venous insufficiency (chronic) (peripheral): CODE(S): I87.2 - Venous insufficiency (chronic) (peripheral) (5) Localized edema: CODE(S): R60.0 - Localized edema (6) Rheumatoid arthritis: CODE(S): M06.9 - Rheumatoid arthritis, unspecified (7) Tobacco use disorder: CODE(S): F17.200 - Nicotine dependence, unspecified, uncomplicated (8) Malnutrition: CODE(S): E46 - Unspecified protein-calorie malnutrition (9) Body mass index [BMI] 19.9 or less, adult: CODE(S): Z68.1 - Body mass index [BMI] 19.9 or less, adult PLAN: Plan I reviewed and discussed her case today. Debridement was performed today as noted in the clinical panel to the ulcer site. Her new ulcer site is noted. The following work up and care recommendations were made: Dressing: To change daily with hydrogel. Wash: Antibacterial soap and water. Avoid soaking. To avoid bathtub bathing where her leg including her wound are submerged. I recommend she uses traditional antibacterial soap and water. Tissue growth optimization: If she does have a documented history of osteomyelitis that is chronic she may be a candidate for hyperbaric oxygen therapy. 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 However, I would like to confirm if this is a relative or firm contraindication. She will consider this treatment again. Her last seizure was noted to be about three years ago. Offload: To avoid direct pressure on the site. Vascular / edema: She has nonpalpable pulses and lack of hair. She also has questionable claudication presentation. I recommend noninvasive vascular studies including MARI, segmental thigh and leg pressure, PVR, and systolic toe pressure. The results were reviewed and she has left biphasic waveforms, left MARI of 1.2, and left toe brachial index is 0.72. The segmental thigh and leg pressures were not obtained. There is not a difference of over 30 mmHg when compared to arm pressures. She is also advised to discontinue all tobacco products to optimize healing and limb salvage opportunities. Due to ongoing lack of healing, a vascular referral was provided for Dr. Rdz. She started intervention and was advised to follow-up with her scheduled ultrasound as advised. Medical records have been reviewed and additional interventions not currently planned. Her treatment is mainly for venous insufficiency at this time. There is mild to moderate edema. I recommend 3M 2L multilayer compression dressings. This was applied today and she was advised to keep this intact until next week. Infection: She does not have kevin purulent drainage today or erythema, streaking, or odor. To monitor for this. Culture was previously updated for mrsa pcr, aerobic and anearobic. She has a noted h/o MRSA growth. I recommend considering IV antibiotics due to her continued MRSA infections. She is also under the management of infectious disease specialist and continues IV antibiotics and has a PICC line in place. She is currently on a 6-week course of linezolid and this has been completed. no infection signs noted today. Today, I am concerned about her exposed bone and significant increase in ulcer size and I ordered an x-ray to rule out any underlying bone pathology. She obtained the 2 leg x-rays on which did not demonstrate any osseous destruction, foreign body or soft tissue emphysema or periosteal reaction. Pain: Controlled Host factors: She has significant delays in healing. We discussed tobacco cessation and how this impairs healing. She has some muscle wasting and delayed healing and nutritional supplementation would also be beneficial. She is under weight and is not consuming adequate micro or macronutrients. A prescription for Jay and Ensure with 30 g of protein per shake were provided today. I also recommended a nutrition referral to optimize healing; scheduling in process. She has rheumatoid arthritis and understands this may also delay her healing. She was urged to reduce smoking; discussed at length again today. Her outcome prognosis is poor with continued tobacco use. Labs: Updated labs were recently updated including CBC, CMP, ESR, C-reactive protein, and hemoglobin A1c. No leukocytosis was noted. ESR 24. CRP 23.5. No gross abnormalities with CMP. A1c of 5.5%. Imaging: Left leg xrays were recently updated - there is a healed fracture in the mid third of the left tibia but apparently there is periosteal reaction and what appears to be chronic osteomyelitis with possibility of sinus tract. I answered all the patient's questions. To return to the wound healing center in 1 week or call sooner if the patient has any questions or concerns. Compliance was discussed and this is required for healing progression. Note: Bloxy speech recognition production department supervisor software was used to create portions of this document. Sound-alike and misspelled words, as well as other production department supervisor errors may be contained in the documentation.
--- NOTE | 2022-02-20 10:35 | RAD_ITS ---
STUDY: X-RAY - LEFT TIBIA AND FIBULA REASON FOR EXAM: Female, 61 years old. OSTEOMYELITIS TECHNIQUE: 2 view(s) of the tibia and fibula were obtained. COMPARISON: Comparison is made with prior study 01/01/2022. FINDINGS: There is evidence of a healed fracture of the midshaft of the tibia as well as the fibula. This is unchanged. Soft tissue changes. RAD/Tibia & Fibula 2 Views IMPRESSION: Stable examination. Electronically Signed: Diony Fonseca MD at 11:01 EDT ,
[2022-02-27 09:33] VITALS: BP 134/54; PULSE 88; RESP 18; TEMP 36.9; BMI 20.5
--- NOTE | 2022-02-27 10:24 | PCM.WC.PN ---
History of Present Illness Date of Service: 02/27/22 Chief Complaint: left leg ulcer History of Wound: WeightThis 61-year-old female was seen today for left leg ulcer. She denies fever, chill, nausea, vomiting, diarrhea. She tries to wear compression garment. She denies leg pain, redness, or odor. She denies trauma or recent increase in swelling. She had venous intervention with vascular specialist, Dr. Rdz. She has been wearing her compression stocking as advised anytime she is not wearing a 3M 2L compression dressing. She continues to smoke and has vascular disease. She also has rheumatoid arthritis. She is amendable to meet with a environmental health technician and is scheduled for consult next Friday. She has not been able to get Jay or the recommended Glucerna due to cost. She is not able to quit smoking. She did obtain her x-rays as recommended. She is concerned about the effects of rheumatoid arthritis and asks if this is a good time to start Enbrel. She also complains of a new injury to her right ankle and foot when she dropped a safe on it. She reports she does not have any difficulty and she is. She relates she was just very worried this lemming was walking more on her left side this past week. Progress of Wound: Worse now with new wound in the cluster Objective Data Objective Data Vital Signs: Vital Signs Temp Pulse Resp BP 98.4 F 88 18 134/54 H 02/27/22 09:33 02/27/22 09:33 02/27/22 09:33 02/27/22 09:33 Weight: 43.091 kg Body Mass Index (BMI) 20.5 Physical Exam Extremity Extremity Narrative: No calf tenderness (negative Winston and Avendano sign, no warmth or calor) Diminished pulses Muscle wasting noted some wound cultures Adjacent skin is atrophic and hairless Prior skin grafting surgical intervention site noted with cicatrix Noted leg edema, increased today Skin Skin Narrative: no kevin purulence, no erythema, no streaking, no odor. mima ulcer edema continued. There is positive probe to bone of the distal aspect and some minor Mima ulcer inflammation with new ulcer (3 total now); pain with ulcer manipulation cluster. Right lower extremity:pain mild to anterior ankle no laxity or pain with drawer test. no pain to palpate foot bones, tendons, joints. no bogginess or fluctuance on palpation. compartments remain soft. no bruising, redness or wound noted. Neuro Neuro Narrative: lack of normal epicritic sensation via light touch is consistent with neuropathy status Debridement Note Debridement Note Wound debrided: left leg Wound Grade/Stage: Type of Debridement: Excisional debridement Anesthesia Used: 4% Lidocaine Solution Depth: in the subcutaneous layer Percentage of wound debrided: 100 Instrument Used: #15 blade Tissue Removed: fibrous, devitalized subcutaneous, biofilm, slough Severity: Fat Layer Exposed Amount of bleeding with debridement: Mild Bleeding Controlled with: Pressure Patient tolerated procedure: Patient tolerated procedure well Post-Debridement Measurements and Additional Note: Post-Debridement Measurements/Treatment - Nurse 1 - General Ulcer Assessment Start: 02/06/22 09:19 Freq: Status: Active Protocol: ELENA Activity Type Activity Date Activity User E-sign Co-sign Detail Recorded Client Recorded Date Recorded By Document 02/06/22 09:19 DL [id number] 02/06/22 09:27 DL Document 02/13/22 09:37 ML [id number] 02/13/22 09:40 ML Document 02/20/22 09:11 RB [id number] 02/20/22 09:26 RB Document 02/27/22 09:33 DL [id number] 02/27/22 09:54 DL 02/06/22 02/13/22 02/20/22 09:19 09:37 09:11 - Today's Visit Information Type of service Follow-up Visit Follow-up Visit Follow-up Visit (Physician/CLINICAL INFORMATICS MANAGER (Physician/CLINICAL INFORMATICS MANAGER (Physician/CLINICAL INFORMATICS MANAGER ) ) ) Arrival Mode Ambulatory Ambulatory Ambulatory Transfer Assistance None None None Patient Identification Verified (Name & Yes Yes Yes ) Patient Requires Transmission-Based No No No Precautions Safety Precautions NA Height and Weight Body Mass Index (BMI) 20.5 20.5 20.5 BMI Classification Normal Normal Normal Vital Signs Temperature (97.8 F-99.1 F) 97.2 F L 97.1 F L 98 F Temperature Source Temporal Temporal Temporal Pulse Rate (60-100) 78 78 94 Pulse Location Monitor Monitor Monitor Respiratory Rate (12-18) 19 H 18 Respiratory rate source Observation Observation Blood Pressure (90/60-120/80) 159/60 H 132/88 H 142/79 H Blood Pressure Mean (mm Hg) 93 102 100 Source Monitor Monitor Monitor Position Sitting Semi-Fowlers Blood Pressure Location Right Arm Left Arm History Since Last Visit- (Skip if this is Patient's initial visit) Have you changed medications since your No No No last visit? Any new allergies or adverse reactions No No No Had a fall/change in ADL's that may No No No increase risk of falls Signs or symptoms of abuse and/or No No No neglect since last visit Have you been in the hospital since your No No No last visit? Has dressing in place as prescribed Yes Yes Yes Has compression in place as prescribed Yes Yes Yes Has offloadiing in place as prescribed N/A N/A No Experienced any changes in pain level or No No No management Left Footwear Regular Shoe Right Footwear Regular Shoe Pain Scale: 0-10 Numeric Is Patient Pain Free? Yes Yes Yes 02/27/22 09:33 WC - Today's Visit Information Type of service Follow-up Visit (Physician/CLINICAL INFORMATICS MANAGER ) Arrival Mode Ambulatory Transfer Assistance None Patient Identification Verified (Name & Yes ) Patient Requires Transmission-Based No Precautions Safety Precautions Height and Weight Body Mass Index (BMI) 20.5 BMI Classification Normal Vital Signs Temperature (97.8 F-99.1 F) 98.4 F Temperature Source Oral Pulse Rate (60-100) 88 Pulse Location Monitor Respiratory Rate (12-18) 18 Respiratory rate source Observation Blood Pressure (90/60-120/80) 134/54 H Blood Pressure Mean (mm Hg) 80 Source Monitor Position Blood Pressure Location History Since Last Visit- (Skip if this is Patient's initial visit) Have you changed medications since your No last visit? Any new allergies or adverse reactions No Had a fall/change in ADL's that may No increase risk of falls Signs or symptoms of abuse and/or No neglect since last visit Have you been in the hospital since your No last visit? Has dressing in place as prescribed Yes Has compression in place as prescribed Yes Has offloadiing in place as prescribed N/A Experienced any changes in pain level or No management Left Footwear Right Footwear Pain Scale: 0-10 Numeric Is Patient Pain Free? Yes - Nurse 1 - General Ulcer Measurement Start: 02/06/22 09:19 Freq: Status: Active Protocol: Activity Type Activity Date Activity User E-sign Co-sign Detail Recorded Client Recorded Date Recorded By Document 02/06/22 09:19 DL [id number] 02/06/22 09:27 DL Document 02/13/22 09:37 ML [id number] 02/13/22 09:40 ML Document 02/20/22 09:11 RB [id number] 02/20/22 09:26 RB Document 02/27/22 09:33 DL [id number] 02/27/22 09:54 DL 02/06/22 02/13/22 02/20/22 09:19 09:37 09:11 Wound Center Nurse 1 #4 L Yoder Med -Current Size (cm) - Length -Current Size (cm) - Width -Current Size (cm) - Depth -Total Square Cm -Photo Taken -Exudate Amt -Exudate Type -Wound Margin -Granulation Amt -Granulation Quality -Necrosis Amt -Necrotic Tissue Type -Structure Exposed -Texture (Mima-wound Skin Appearance) -Moisture (Mima-wound Skin Appearance) -Color (Mima-wound Skin Appearance) -Temperature (Mima-wound Skin Appearance) -Tenderness on Palpation (Mima-wound Skin Appearance) -Ulcer Cleansing -Foul Odor after Cleansing -Anesthetic Used 3-left superior leg -Combined with other wound No -Current Size (cm) - Length 0.3 0.5 0.5 -Current Size (cm) - Width 0.3 0.5 0.3 -Current Size (cm) - Depth 0.1 0.1 0.1 -Total Square Cm 0.09 0.25 0.15 -Photo Taken Yes Yes -Epithelialization Small 1-33% -Tunneling No -Undermining/Tunneling No -Circular Undermining No -Exudate Amt Small Small Medium -Exudate Type Serosanguineous Serosanguineous -Wound Margin Distinct, Distinct, Distinct, Outline Outline Outline Attached Attached Attached -Granulation Amt Small (1-33%) Small (1-33%) Medium (34-66%) -Granulation Quality [place],Red -Slough/Fibrin Yes Yes -Necrosis Amt None Present (0 Small (1-33%) Small (1-33%) %) -Necrotic Tissue Type Adherent Slough Adherent Slough -Structure Exposed N/A N/A -Texture (Mima-wound Skin Appearance) Scarring Assessed Friable -Moisture (Mima-wound Skin Appearance) No Abnormality Assessed Assessed -Color (Mima-wound Skin Appearance) No Abnormality Assessed Assessed -Temperature (Mima-wound Skin No Abnormality No Abnormality No Abnormality Appearance) (Pt Warm) (Pt Warm) (Pt Warm) -Tenderness on Palpation (Mima-wound No No No Skin Appearance) -Ulcer Cleansing Soap and Water Soap and Water Wound Cleanser -Foul Odor after Cleansing Yes, Due to No No Product Use -Anesthetic Used 5% Lidocaine 5% Lidocaine 5% Lidocaine Gel Gel Gel #1- L inferior yodre -Combined with other wound No -Current Size (cm) - Length 1.7 0.8 0.7 -Current Size (cm) - Width 0.4 0.3 0.5 -Current Size (cm) - Depth 1.4 0.5 1 -Total Square Cm 0.68 0.24 0.35 -Photo Taken Yes Yes -Epithelialization Small 1-33% -Tunneling No -Tunneling Position (O'clock) 3 -Tunneling Distance (cm) 2.5 -Undermining/Tunneling No -Circular Undermining No -Exudate Amt Small Small Large -Exudate Type Serosanguineous Serosanguineous Serosanguineous -Wound Margin Distinct, Distinct, Distinct, Outline Outline Outline Attached Attached Attached -Granulation Amt Large (67-100%) Small (1-33%) Medium (34-66%) -Granulation Quality [place],Red -Slough/Fibrin Yes Yes -Necrosis Amt None Present (0 Small (1-33%) Small (1-33%) %) -Necrotic Tissue Type Adherent Slough Adherent Slough -Structure Exposed N/A N/A -Texture (Mima-wound Skin Appearance) Scarring Assessed Assessed, Friable, Scarring -Moisture (Mima-wound Skin Appearance) No Abnormality Assessed Assessed -Color (Mima-wound Skin Appearance) No Abnormality Assessed Assessed -Temperature (Mima-wound Skin No Abnormality No Abnormality No Abnormality Appearance) (Pt Warm) (Pt Warm) (Pt Warm) -Tenderness on Palpation (Mima-wound No No No Skin Appearance) -Ulcer Cleansing Soap and Water Soap and Water Wound Cleanser -Foul Odor after Cleansing No No No -Anesthetic Used 5% Lidocaine 5% Lidocaine 5% Lidocaine Gel Gel Gel Lower Limb Edema Present Yes Left Calf (cm) 29.3 30 Left Ankle (cm) 19.6 19 02/27/ 09:33 Wound Center Nurse 1 #4 L Yoder Med -Current Size (cm) - Length 0.7 -Current Size (cm) - Width 0.6 -Current Size (cm) - Depth 0.9 -Total Square Cm 0.42 -Photo Taken Yes -Exudate Amt Medium -Exudate Type Sanguineous -Wound Margin Distinct, Outline Attached -Granulation Amt Large (67-100%) -Granulation Quality Red -Necrosis Amt Small (1-33%) -Necrotic Tissue Type Adherent Slough -Structure Exposed N/A -Texture (Mima-wound Skin Appearance) Scarring -Moisture (Mima-wound Skin Appearance) No Abnormality -Color (Mima-wound Skin Appearance) Hemosiderin Staining -Temperature (Mima-wound Skin No Abnormality Appearance) (Pt Warm) -Tenderness on Palpation (Mima-wound No Skin Appearance) -Ulcer Cleansing Soap and Water -Foul Odor after Cleansing No -Anesthetic Used 5% Lidocaine Gel 3-left superior leg -Combined with other wound -Current Size (cm) - Length 0.2 -Current Size (cm) - Width 0.3 -Current Size (cm) - Depth 0.3 -Total Square Cm 0.06 -Photo Taken No -Epithelialization -Tunneling -Undermining/Tunneling -Circular Undermining -Exudate Amt Small -Exudate Type Serosanguineous -Wound Margin Distinct, Outline Attached -Granulation Amt Large (67-100%) -Granulation Quality Red -Slough/Fibrin -Necrosis Amt Small (1-33%) -Necrotic Tissue Type Adherent Slough -Structure Exposed N/A -Texture (Mima-wound Skin Appearance) Scarring -Moisture (Mima-wound Skin Appearance) No Abnormality -Color (Mima-wound Skin Appearance) Hemosiderin Staining -Temperature (Mima-wound Skin No Abnormality Appearance) (Pt Warm) -Tenderness on Palpation (Mima-wound No Skin Appearance) -Ulcer Cleansing Soap and Water -Foul Odor after Cleansing No -Anesthetic Used 5% Lidocaine Gel #1- L inferior yoder -Combined with other wound -Current Size (cm) - Length 1 -Current Size (cm) - Width 0.8 -Current Size (cm) - Depth 0.8 -Total Square Cm 0.8 -Photo Taken No -Epithelialization -Tunneling -Tunneling Position (O'clock) -Tunneling Distance (cm) -Undermining/Tunneling -Circular Undermining -Exudate Amt Medium -Exudate Type Serosanguineous -Wound Margin Distinct, Outline Attached -Granulation Amt Large (67-100%) -Granulation Quality Red -Slough/Fibrin -Necrosis Amt Small (1-33%) -Necrotic Tissue Type Adherent Slough -Structure Exposed N/A -Texture (Mima-wound Skin Appearance) Scarring -Moisture (Mima-wound Skin Appearance) Dry/Scaly -Color (Mima-wound Skin Appearance) Hemosiderin Staining -Temperature (Mima-wound Skin No Abnormality Appearance) (Pt Warm) -Tenderness on Palpation (Mima-wound No Skin Appearance) -Ulcer Cleansing Soap and Water -Foul Odor after Cleansing No -Anesthetic Used 5% Lidocaine Gel Lower Limb Edema Present Left Calf (cm) 28.2 Left Ankle (cm) 20 WC - Nurse 2 - General Ulcer CM Notes Start: 02/06/22 09:19 Freq: Status: Active Protocol: Activity Type Activity Date Activity User E-sign Co-sign Detail Recorded Client Recorded Date Recorded By Document 02/06/22 09:50 [id number] 02/06/22 09:53 Document 02/13/22 09:57 [id number] 02/13/22 10:02 Document 02/20/22 09:47 [id number] 02/20/22 09:52 Document 02/27/22 09:59 [id number] 02/27/22 10:01 02/06/22 02/13/22 02/20/22 09:50 09:57 09:47 Wound Center Nurse 2 #4 L Yoder Med -Time -Correct Patient -Correct Side, Site, Position -Correct Procedure -Procedure Performed -Type of Procedure -Clinical Debridement -Tissue Removed -Post Debridement (cm) - Length -Post Debridement (cm) - Width -Post Debridement (cm) - Depth -Total Square (Post) (cm) -Area of Debridement (cm) - Length -Area of Debridement (cm) - Width -Total Square (Area) (cm) -Tunneling -Undermining/Tunneling -Circular Undermining -Wound/Ulcer Outcome -Ulcer Cleansing -Foul Odor after Cleansing -Bioengineered Tissue -Bleeding Controlled with -Treatment Response -Offloading -Debridement - Subq, 1st 20sq cm 3-left superior leg -Time 09: 09:58 09:48 -Correct Patient Yes Yes Yes -Correct Side, Site, Position Yes Yes Yes -Correct Procedure Yes Yes Yes -Procedure Performed Yes Yes Yes -Type of Procedure Incision & Debridement Debridement Drainage -Clinical Debridement Subcutaneous Subcutaneous Subcutaneous -Tissue Removed Subcutaneous Subcutaneous Subcutaneous -Post Debridement (cm) - Length 0.4 0.6 0.5 -Post Debridement (cm) - Width 0.3 0.5 0.4 -Post Debridement (cm) - Depth 0.1 0.1 0.1 -Total Square (Post) (cm) 0.12 0.30 0.20 -Area of Debridement (cm) - Length 0.4 0.6 0.5 -Area of Debridement (cm) - Width 0.3 0.5 0.4 -Total Square (Area) (cm) 0.12 0.30 0.20 -Tunneling No No No -Undermining/Tunneling No No No -Circular Undermining No No No -Wound/Ulcer Outcome Not Healed Not Healed Not Healed -Ulcer Cleansing Rinsed/ Rinsed/ Rinsed/ Irrigated with Irrigated with Irrigated with Saline Saline Saline -Foul Odor after Cleansing No No No -Bioengineered Tissue No No No -Bleeding Controlled with Pressure Pressure Pressure -Treatment Response Procedure Procedure Procedure Tolerated Well Tolerated Well Tolerated Well -Offloading No No No -Debridement - Subq, 1st 20sq cm No No Yes #1- L inferior yoder -Time : 09:58 09:48 -Correct Patient Yes Yes Yes -Correct Side, Site, Position Yes Yes Yes -Correct Procedure Yes Yes Yes -Procedure Performed Yes Yes Yes -Type of Procedure Debridement Debridement Debridement -Clinical Debridement Subcutaneous Subcutaneous Subcutaneous -Tissue Removed Subcutaneous Subcutaneous Subcutaneous -Post Debridement (cm) - Length 1.8 0.8 0.7 -Post Debridement (cm) - Width 0.4 0.4 0.4 -Post Debridement (cm) - Depth 1.4 0.5 0.6 -Total Square (Post) (cm) 0.72 0.32 0.28 -Area of Debridement (cm) - Length 1.8 0.8 0.7 -Area of Debridement (cm) - Width 0.4 0.4 0.4 -Total Square (Area) (cm) 0.72 0.32 0.28 -Tunneling No No No -Undermining/Tunneling No No No -Circular Undermining No No No -Wound/Ulcer Outcome Not Healed Not Healed Not Healed -Ulcer Cleansing Rinsed/ Rinsed/ Rinsed/ Irrigated with Irrigated with Irrigated with Saline Saline Saline -Foul Odor after Cleansing No No No -Bioengineered Tissue No No No -Bleeding Controlled with Pressure Pressure Pressure -Treatment Response Procedure Procedure Procedure Tolerated Well Tolerated Well Tolerated Well -Offloading No No No -Debridement - Subq, 1st 20sq cm Yes Yes No Pain Scale: 0-10 Numeric Is Patient Pain Free? Yes Yes Yes 02/27/22 09:59 Wound Center Nurse 2 #4 L Yoder Med -Time 09:59 -Correct Patient Yes -Correct Side, Site, Position Yes -Correct Procedure Yes -Procedure Performed Yes -Type of Procedure Debridement -Clinical Debridement Subcutaneous -Tissue Removed Subcutaneous -Post Debridement (cm) - Length 0.8 -Post Debridement (cm) - Width 0.6 -Post Debridement (cm) - Depth 0.9 -Total Square (Post) (cm) 0.48 -Area of Debridement (cm) - Length 0.8 -Area of Debridement (cm) - Width 0.6 -Total Square (Area) (cm) 0.48 -Tunneling No -Undermining/Tunneling No -Circular Undermining No -Wound/Ulcer Outcome Not Healed -Ulcer Cleansing Rinsed/ Irrigated with Saline -Foul Odor after Cleansing No -Bioengineered Tissue No -Bleeding Controlled with Pressure -Treatment Response Procedure Tolerated Well -Offloading No -Debridement - Subq, 1st 20sq cm No 3-left superior leg -Time 10:00 -Correct Patient Yes -Correct Side, Site, Position Yes -Correct Procedure Yes -Procedure Performed Yes -Type of Procedure Debridement -Clinical Debridement Subcutaneous -Tissue Removed Dermis -Post Debridement (cm) - Length 0.3 -Post Debridement (cm) - Width 0.3 -Post Debridement (cm) - Depth 0.3 -Total Square (Post) (cm) 0.09 -Area of Debridement (cm) - Length 0.3 -Area of Debridement (cm) - Width 0.3 -Total Square (Area) (cm) 0.09 -Tunneling No -Undermining/Tunneling No -Circular Undermining No -Wound/Ulcer Outcome Not Healed -Ulcer Cleansing Rinsed/ Irrigated with Saline -Foul Odor after Cleansing No -Bioengineered Tissue No -Bleeding Controlled with Pressure -Treatment Response Procedure Tolerated Well -Offloading No -Debridement - Subq, 1st 20sq cm No #1- L inferior yoder -Time 10:01 -Correct Patient Yes -Correct Side, Site, Position Yes -Correct Procedure Yes -Procedure Performed Yes -Type of Procedure Debridement -Clinical Debridement Subcutaneous -Tissue Removed Subcutaneous -Post Debridement (cm) - Length 1.1 -Post Debridement (cm) - Width 0.8 -Post Debridement (cm) - Depth 0.8 -Total Square (Post) (cm) 0.88 -Area of Debridement (cm) - Length 1.1 -Area of Debridement (cm) - Width 0.8 -Total Square (Area) (cm) 0.88 -Tunneling No -Undermining/Tunneling No -Circular Undermining No -Wound/Ulcer Outcome Not Healed -Ulcer Cleansing Rinsed/ Irrigated with Saline -Foul Odor after Cleansing No -Bioengineered Tissue No -Bleeding Controlled with Pressure -Treatment Response Procedure Tolerated Well -Offloading No -Debridement - Subq, 1st 20sq cm Yes Pain Scale: 0-10 Numeric Is Patient Pain Free? Yes WC - Nurse 3 - General Ulcer D/C NN Start: 02/06/22 09:19 Freq: Status: Active Protocol: Activity Type Activity Date Activity User E-sign Co-sign Detail Recorded Client Recorded Date Recorded By Document 02/06/22 10:07 DL [id number] 02/06/22 10:10 DL Document 02/13/22 10:16 DL [id number] 02/13/22 10:31 DL Document 02/20/22 10:00 [facility] [id number] 02/20/22 10:01 [facility] Document 02/27/22 10:20 DL [id number] 02/27/22 10:22 DL 02/06/22 02/13/22 02/20/22 10:07 10:16 10:00 Wound Care Nurse 3 #4 L Yoder Med -Ulcer Cleansing -Foul Odor after Cleansing -Primary Dressing Applied -Aquacel AG 2x2 -Optilok 6.5x10 3-left superior leg -Ulcer Cleansing Soap and Water Not Cleansed Rinsed/ Irrigated with Saline -Foul Odor after Cleansing No No -Primary Dressing Applied Aquacel AG 2x2, Aquacel AG 2x2 Other Optilok 6.5x10 -Other Dressing superabsorber aquacel ag, drsg per rb rn -Primary Dressing Covered/Secured with Dry Gauze & Roll Gauze -Aquacel AG 2x2 1 1 -Optilok 6.5x10 1 #1- L inferior yoder -Ulcer Cleansing Soap and Water Rinsed/ Rinsed/ Irrigated with Irrigated with Saline Saline -Foul Odor after Cleansing No No No -Primary Dressing Applied Optilok 6.5x10 Other -Other Dressing aquacel ag aqaucel ag/ aquacel ag; superabsorber drsg per rb rn -Primary Dressing Covered/Secured with Dry Gauze & Roll Gauze, Secured with Tape -Optilok 6.5x10 1 Left -Multi-Layered Wrap Application Multi-Layer Multi-Layer Multi-Layer Comp - Left ($) Comp - Left ($) Comp - Left ($) Treatment Response Procedure Procedure Procedure Tolerated Well Tolerated Well Tolerated Well Pain Scale: 0-10 Numeric Is Patient Pain Free? Yes Yes Yes WC - Visit Discharge Discharge Condition Stable Stable Stable Ambulatory Status Ambulatory Ambulatory Ambulatory Transportation Private Auto Private [facility] Facility Type Home Health Orders Sent Yes 02/27/22 10:20 Wound Care Nurse 3 #4 L Yoder Med -Ulcer Cleansing Soap and Water -Foul Odor after Cleansing No -Primary Dressing Applied Aquacel AG 2x2, Optilok 6.5x10 -Aquacel AG 2x2 1 -Optilok 6.5x10 1 3-left superior leg -Ulcer Cleansing Soap and Water -Foul Odor after Cleansing No -Primary Dressing Applied -Other Dressing aquacel ag/ superabsorber -Primary Dressing Covered/Secured with -Aquacel AG 2x2 -Optilok 6.5x10 #1- L inferior yoder -Ulcer Cleansing Soap and Water -Foul Odor after Cleansing No -Primary Dressing Applied -Other Dressing aqaucel ag / superabsorber -Primary Dressing Covered/Secured with Dry Gauze & Roll Gauze, Secured with Tape -Optilok 6.5x10 Left -Multi-Layered Wrap Application Multi-Layer Comp - Left ($) Treatment Response Procedure Tolerated Well Pain Scale: 0-10 Numeric Is Patient Pain Free? Yes WC - Visit Discharge Discharge Condition Stable Ambulatory Status Ambulatory Transportation Private Auto Facility Type Home Health Orders Sent Yes Assessment/Plan Assessment/Plan (1) Delayed wound healing: CODE(S): T14.8XXD - Other injury of unspecified body region, subsequent encounter (2) Ulcer of left lower extremity with fat layer exposed: CODE(S): L97.922 - Non-pressure chronic ulcer of unspecified part of left lower leg with fat layer exposed (3) Osteomyelitis: CODE(S): M86.9 - Osteomyelitis, unspecified (4) Venous insufficiency (chronic) (peripheral): CODE(S): I87.2 - Venous insufficiency (chronic) (peripheral) (5) Localized edema: CODE(S): R60.0 - Localized edema (6) Rheumatoid arthritis: CODE(S): M06.9 - Rheumatoid arthritis, unspecified (7) Tobacco use disorder: CODE(S): F17.200 - Nicotine dependence, unspecified, uncomplicated (8) Malnutrition: CODE(S): E46 - Unspecified protein-calorie malnutrition (9) Body mass index [BMI] 19.9 or less, adult: CODE(S): Z68.1 - Body mass index [BMI] 19.9 or less, adult (10) Contusion of right ankle: CODE(S): S90.01XA - Contusion of right ankle, initial encounter PLAN: Plan I reviewed and discussed her case today. Debridement was performed today as noted in the clinical panel to the ulcer site. Her new ulcer site is noted. The following work up and care recommendations were made: Dressing: To change daily with hydrogel. Wash: Antibacterial soap and water. Avoid soaking. To avoid bathtub bathing where her leg including her wound are submerged. I recommend she uses traditional antibacterial soap and water. Tissue growth optimization: If she does have a documented history of osteomyelitis that is chronic she may be a candidate for hyperbaric oxygen therapy. 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 However, I would like to confirm if this is a relative or firm contraindication. She will consider this treatment again. Her last seizure was noted to be about three years ago. Offload: To avoid direct pressure on the site. Vascular / edema: She has nonpalpable pulses and lack of hair. She also has questionable claudication presentation. I recommend noninvasive vascular studies including MARI, segmental thigh and leg pressure, PVR, and systolic toe pressure. The results were reviewed and she has left biphasic waveforms, left MARI of 1.2, and left toe brachial index is 0.72. The segmental thigh and leg pressures were not obtained. There is not a difference of over 30 mmHg when compared to arm pressures. She is also advised to discontinue all tobacco products to optimize healing and limb salvage opportunities. Due to ongoing lack of healing, a vascular referral was provided for Dr. Rdz. She started intervention and was advised to follow-up with her scheduled ultrasound as advised. Medical records have been reviewed and additional interventions not currently planned. Her treatment is mainly for venous insufficiency at this time. There is mild to moderate edema. I recommend 3M 2L multilayer compression dressings. This was applied today and she was advised to keep this intact until next week. Infection: She does not have kevin purulent drainage today or erythema, streaking, or odor. To monitor for this. Culture was previously updated for mrsa pcr, aerobic and anearobic. She has a noted h/o MRSA growth. I recommend considering IV antibiotics due to her continued MRSA infections. She is also under the management of infectious disease specialist and continues IV antibiotics and has a PICC line in place. She is currently on a 6-week course of linezolid and this has been completed. no infection signs noted today. Today, I am concerned about her exposed bone and significant increase in ulcer size and I ordered an x-ray to rule out any underlying bone pathology. She obtained the 2 leg x-rays on which did not demonstrate any osseous destruction, foreign body or soft tissue emphysema or periosteal reaction. Pain: Controlled Host factors: She has significant delays in healing. We discussed tobacco cessation and how this impairs healing. She has some muscle wasting and delayed healing and nutritional supplementation would also be beneficial. She is underweight and is not consuming adequate micro or macronutrients. A prescription for Jay and Ensure with 30 g of protein per shake were provided today. I also recommended a nutrition referral to optimize healing; scheduling in process. She has rheumatoid arthritis and understands this may also delay her healing. She was urged to reduce smoking; discussed at length again today. Her outcome prognosis is poor with continued tobacco use. Labs: Updated labs were recently updated including CBC, CMP, ESR, C-reactive protein, and hemoglobin A1c. No leukocytosis was noted. ESR 24. CRP 23.5. No gross abnormalities with CMP. A1c of 5.5%. Imaging: Left leg xrays were recently updated (02-20-22) - there is a healed fracture in the mid third of the left tibia but apparently there is periosteal reaction and what appears to be chronic osteomyelitis with possibility of sinus tract. We discussed her rheumatoid arthritis significant medical history which may be contributing to delayed healing however I suspect her malnutrition and persistent smoking habits are interfering with her progress. This was discussed in detail today. I do not recommend starting Enbrel at this time. I also briefly evaluated her right lower extremity and it appears she has an injury when she dropped an item on her leg. She is able to bear weight and does not have any residual bruising. She defers need for x-ray. To monitor this and to continue to wear supportive shoes and avoid aggravating activities. I answered all the patient's questions. To return to the wound healing center in 1 week for nursing dressing change in 2 weeks for physician evaluation, or call sooner if the patient has any questions or concerns. Compliance was discussed and this is required for healing progression. Note: [email or web address] speech recognition dry cleaning supervisor software was used to create portions of this document. Sound-alike and misspelled words, as well as other dry cleaning supervisor errors may be contained in the documentation. The medical decision making level is moderate. There is noted moderate risk of morbidity after considering this treatment plan and diagnostic data. Considerations were given to prescription management, decisions regarding surgical options, or social determinants of health. The medical decision making level is moderate based on data including at least three of the following: review of prior external notes, review of a test, ordering a test, assessment requiring an independent historian.
[2022-03-06 09:12] VITALS: BP 125/64; PULSE 88; RESP 16; TEMP 35.8; BMI 20.5
--- NOTE | 2022-03-06 09:58 | PCM.WC.PN ---
History of Present Illness Date of Service: 03/06/22 Chief Complaint: left leg ulcer History of Wound: WeightThis 61-year-old female was seen today for left leg ulcer. She denies fever, chill, nausea, vomiting, diarrhea. She tries to wear compression garment. She denies leg pain, redness, or odor. She denies trauma or recent increase in swelling. She had venous intervention with vascular specialist, Dr. Rdz. She has been wearing her compression stocking as advised anytime she is not wearing a 3M 2L compression dressing. She continues to smoke and has vascular disease. She also has rheumatoid arthritis. 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 She was given a prescription for Jay and Glucerna was not able to get these due to cost. She will accept samples today. She is not able to quit smoking. She did obtain her x-rays as recommended. She is concerned about the effects of rheumatoid arthritis and asks if this is a good time to start Enbrel. She also complains of a new injury to her right ankle and foot when she dropped a safe on it. Progress of Wound: Improving cluster Objective Data Objective Data Vital Signs: Vital Signs Temp Pulse Resp BP O2 Del Method 96.5 F L 88 16 125/64 H Room Air 03/06/22 09:12 03/06/22 09:12 03/06/22 09:12 03/06/22 09:12 03/06/22 09:12 Oxygen Delivery Method Room Air Weight: 43.091 kg Body Mass Index (BMI) 20.5 Physical Exam Extremity Extremity Narrative: No calf tenderness (negative Winston and Avendano sign, no warmth or calor) Diminished pulses Muscle wasting noted some wound cultures Adjacent skin is atrophic and hairless Prior skin grafting surgical intervention site noted with cicatrix Noted leg edema, increased today proximal most wound of cluster is healed. reduced ulcer depth noted. granular base seen Neuro Neuro Narrative: lack of normal epicritic sensation via light touch is consistent with neuropathy status Debridement Note Debridement Note Wound debrided: left leg Wound Grade/Stage: Type of Debridement: Excisional debridement Anesthesia Used: 4% Lidocaine Solution Depth: in the subcutaneous layer Percentage of wound debrided: 100 Instrument Used: #15 blade Tissue Removed: fibrous, devitalized subcutaneous, biofilm, slough Severity: Fat Layer Exposed Amount of bleeding with debridement: Mild Bleeding Controlled with: Pressure Patient tolerated procedure: Patient tolerated procedure well Post-Debridement Measurements and Additional Note: Post-Debridement Measurements/Treatment - Nurse 1 - General Ulcer Assessment Start: 02/06/22 09:19 Freq: Status: Active Protocol: ELENA Activity Type Activity Date Activity User E-sign Co-sign Detail Recorded Client Recorded Date Recorded By Document 02/06/22 09:19 DL [id number] 02/06/22 09:27 DL Document 02/13/22 09:37 ML [id number] 02/13/22 09:40 ML Document 02/20/22 09:11 RB [id number] 02/20/22 09:26 RB Document 02/27/22 09:33 DL [id number] 02/27/22 09:54 DL Document 03/06/22 09:12 BMF [id number] 03/06/22 09:25 BMF 02/06/22 02/13/22 02/20/22 09:19 09:37 09:11 - Today's Visit Information Type of service Follow-up Visit Follow-up Visit Follow-up Visit (Physician/REGISTERED DENTAL ASSISTANT (Physician/REGISTERED DENTAL ASSISTANT (Physician/REGISTERED DENTAL ASSISTANT ) ) ) Arrival Mode Ambulatory Ambulatory Ambulatory Transfer Assistance None None None Patient Identification Verified (Name & Yes Yes Yes ) Patient Requires Transmission-Based No No No Precautions Safety Precautions NA Height and Weight Body Mass Index (BMI) 20.5 20.5 20.5 BMI Classification Normal Normal Normal Vital Signs Temperature (97.8 F-99.1 F) 97.2 F L 97.1 F L 98 F Temperature Source Temporal Temporal Temporal Pulse Rate (60-100) 78 78 94 Pulse Location Monitor Monitor Monitor Respiratory Rate (12-18) 19 H 18 Respiratory rate source Observation Observation Oxygen Delivery Method Blood Pressure (90/60-120/80) 159/60 H 132/88 H 142/79 H Blood Pressure Mean (mm Hg) 93 102 100 Source Monitor Monitor Monitor Position Sitting Semi-Fowlers Blood Pressure Location Right Arm Left Arm History Since Last Visit- (Skip if this is Patient's initial visit) Have you changed medications since your No No No last visit? Any new allergies or adverse reactions No No No Had a fall/change in ADL's that may No No No increase risk of falls Signs or symptoms of abuse and/or No No No neglect since last visit Have you been in the hospital since your No No No last visit? Has dressing in place as prescribed Yes Yes Yes Has compression in place as prescribed Yes Yes Yes Has offloadiing in place as prescribed N/A N/A No Experienced any changes in pain level or No No No management Left Footwear Regular Shoe Right Footwear Regular Shoe Pain Scale: 0-10 Numeric Is Patient Pain Free? Yes Yes Yes 02/27/22 03/06/22 09:33 09:12 - Today's Visit Information Type of service Follow-up Visit Follow-up Visit (Physician/REGISTERED DENTAL ASSISTANT (Physician/REGISTERED DENTAL ASSISTANT ) ) Arrival Mode Ambulatory Ambulatory Transfer Assistance None None Patient Identification Verified (Name & Yes Yes ) Patient Requires Transmission-Based No No Precautions Safety Precautions Height and Weight Body Mass Index (BMI) 20.5 20.5 BMI Classification Normal Normal Vital Signs Temperature (97.8 F-99.1 F) 98.4 F 96.5 F L Temperature Source Oral Temporal Pulse Rate (60-100) 88 88 Pulse Location Monitor Monitor Respiratory Rate (12-18) 18 16 Respiratory rate source Observation Observation Oxygen Delivery Method Room Air Blood Pressure (90/60-120/80) 134/54 H 125/64 H Blood Pressure Mean (mm Hg) 80 84 Source Monitor Monitor Position Sitting Blood Pressure Location Right Arm History Since Last Visit- (Skip if this is Patient's initial visit) Have you changed medications since your No No last visit? Any new allergies or adverse reactions No No Had a fall/change in ADL's that may No No increase risk of falls Signs or symptoms of abuse and/or No No neglect since last visit Have you been in the hospital since your No No last visit? Has dressing in place as prescribed Yes Yes Has compression in place as prescribed Yes Yes Has offloadiing in place as prescribed N/A N/A Experienced any changes in pain level or No No management Left Footwear Regular Shoe Right Footwear Regular Shoe Pain Scale: 0-10 Numeric Is Patient Pain Free? Yes Yes - Nurse 1 - General Ulcer Measurement Start: 02/06/22 09:19 Freq: Status: Active Protocol: Activity Type Activity Date Activity User E-sign Co-sign Detail Recorded Client Recorded Date Recorded By Document 02/06/22 09:19 ELIZABETH [id number] 02/06/22 09:27 DL Document 02/13/22 09:37 ML [id number] 02/13/22 09:40 ML Document 02/20/22 09:11 RB [id number] 02/20/22 09:26 RB Document 02/27/22 09:33 DL [id number] 02/27/22 09:54 DL Document 03/06/22 09:12 BM [id number] 03/06/22 09:25 BMF 02/06/22 02/13/22 02/20/22 09:19 09:37 09:11 Wound Center Nurse 1 3-left superior leg -Combined with other wound No -Current Size (cm) - Length 0.3 0.5 0.5 -Current Size (cm) - Width 0.3 0.5 0.3 -Current Size (cm) - Depth 0.1 0.1 0.1 -Total Square Cm 0.09 0.25 0.15 -Photo Taken Yes Yes -Epithelialization Small 1-33% -Tunneling No -Undermining/Tunneling No -Circular Undermining No -Exudate Amt Small Small Medium -Exudate Type Serosanguineous Serosanguineous -Wound Margin Distinct, Distinct, Distinct, Outline Outline Outline Attached Attached Attached -Granulation Amt Small (1-33%) Small (1-33%) Medium (34-66%) -Granulation Quality [place],Red -Slough/Fibrin Yes Yes -Necrosis Amt None Present (0 Small (1-33%) Small (1-33%) %) -Necrotic Tissue Type Adherent Slough Adherent Slough -Structure Exposed N/A N/A -Texture (Mima-wound Skin Appearance) Scarring Assessed Friable -Moisture (Mima-wound Skin Appearance) No Abnormality Assessed Assessed -Color (Mima-wound Skin Appearance) No Abnormality Assessed Assessed -Temperature (Mima-wound Skin No Abnormality No Abnormality No Abnormality Appearance) (Pt Warm) (Pt Warm) (Pt Warm) -Tenderness on Palpation (Mima-wound No No No Skin Appearance) -Ulcer Cleansing Soap and Water Soap and Water Wound Cleanser -Foul Odor after Cleansing Yes, Due to No No Product Use -Anesthetic Used 5% Lidocaine 5% Lidocaine 5% Lidocaine Gel Gel Gel #4 L Yoder Med -Combined with other wound -Current Size (cm) - Length -Current Size (cm) - Width -Current Size (cm) - Depth -Total Square Cm -Photo Taken -Tunneling -Undermining/Tunneling -Circular Undermining -Exudate Amt -Exudate Type -Wound Margin -Granulation Amt -Granulation Quality -Slough/Fibrin -Necrosis Amt -Necrotic Tissue Type -Structure Exposed -Texture (Mima-wound Skin Appearance) -Moisture (Mima-wound Skin Appearance) -Color (Mima-wound Skin Appearance) -Temperature (Mima-wound Skin Appearance) -Tenderness on Palpation (Mima-wound Skin Appearance) -Ulcer Cleansing -Foul Odor after Cleansing -Anesthetic Used #1- L inferior yoder -Combined with other wound No -Current Size (cm) - Length 1.7 0.8 0.7 -Current Size (cm) - Width 0.4 0.3 0.5 -Current Size (cm) - Depth 1.4 0.5 1 -Total Square Cm 0.68 0.24 0.35 -Photo Taken Yes Yes -Epithelialization Small 1-33% -Tunneling No -Tunneling Position (O'clock) 3 -Tunneling Distance (cm) 2.5 -Undermining/Tunneling No -Circular Undermining No -Exudate Amt Small Small Large -Exudate Type Serosanguineous Serosanguineous Serosanguineous -Wound Margin Distinct, Distinct, Distinct, Outline Outline Outline Attached Attached Attached -Granulation Amt Large (67-100%) Small (1-33%) Medium (34-66%) -Granulation Quality [place],Red -Slough/Fibrin Yes Yes -Necrosis Amt None Present (0 Small (1-33%) Small (1-33%) %) -Necrotic Tissue Type Adherent Slough Adherent Slough -Structure Exposed N/A N/A -Texture (Mima-wound Skin Appearance) Scarring Assessed Assessed, Friable, Scarring -Moisture (Mima-wound Skin Appearance) No Abnormality Assessed Assessed -Color (Mima-wound Skin Appearance) No Abnormality Assessed Assessed -Temperature (Mima-wound Skin No Abnormality No Abnormality No Abnormality Appearance) (Pt Warm) (Pt Warm) (Pt Warm) -Tenderness on Palpation (Mima-wound No No No Skin Appearance) -Ulcer Cleansing Soap and Water Soap and Water Wound Cleanser -Foul Odor after Cleansing No No No -Anesthetic Used 5% Lidocaine 5% Lidocaine 5% Lidocaine Gel Gel Gel Lower Limb Edema Present Yes Left Calf (cm) 29.3 30 Left Ankle (cm) 19.6 19 02/27/22 03/06/22 09:33 09:12 Wound Center Nurse 1 3-left superior leg -Combined with other wound No -Current Size (cm) - Length 0.2 0.1 -Current Size (cm) - Width 0.3 0.1 -Current Size (cm) - Depth 0.3 0.1 -Total Square Cm 0.06 0.01 -Photo Taken No Yes -Epithelialization -Tunneling No -Undermining/Tunneling No -Circular Undermining No -Exudate Amt Small Large -Exudate Type Serosanguineous Serosanguineous -Wound Margin Distinct, Distinct, Outline Outline Attached Attached -Granulation Amt Large (67-100%) Medium (34-66%) -Granulation Quality [place] -Slough/Fibrin Yes -Necrosis Amt Small (1-33%) Small (1-33%) -Necrotic Tissue Type Adherent Slough Adherent Slough -Structure Exposed N/A N/A -Texture (Mima-wound Skin Appearance) Scarring Assessed, Scarring -Moisture (Mima-wound Skin Appearance) No Abnormality Assessed -Color (Mima-wound Skin Appearance) Hemosiderin Assessed Staining -Temperature (Mima-wound Skin No Abnormality No Abnormality Appearance) (Pt Warm) (Pt Warm) -Tenderness on Palpation (Mima-wound No No Skin Appearance) -Ulcer Cleansing Soap and Water Wound Cleanser -Foul Odor after Cleansing No No -Anesthetic Used 5% Lidocaine 5% Lidocaine Gel Gel #4 L Yoder Med -Combined with other wound No -Current Size (cm) - Length 0.7 1.1 -Current Size (cm) - Width 0.6 0.6 -Current Size (cm) - Depth 0.9 0.5 -Total Square Cm 0.42 0.66 -Photo Taken Yes Yes -Tunneling No -Undermining/Tunneling No -Circular Undermining No -Exudate Amt Medium Large -Exudate Type Sanguineous Serosanguineous -Wound Margin Distinct, Distinct, Outline Outline Attached Attached -Granulation Amt Large (67-100%) Medium (34-66%) -Granulation Quality [place] -Slough/Fibrin Yes -Necrosis Amt Small (1-33%) Small (1-33%) -Necrotic Tissue Type Adherent Slough Adherent Slough -Structure Exposed N/A N/A -Texture (Mima-wound Skin Appearance) Scarring Assessed -Moisture (Mima-wound Skin Appearance) No Abnormality Assessed -Color (Mima-wound Skin Appearance) Hemosiderin Assessed Staining -Temperature (Mima-wound Skin No Abnormality No Abnormality Appearance) (Pt Warm) (Pt Warm) -Tenderness on Palpation (Mima-wound No No Skin Appearance) -Ulcer Cleansing Soap and Water Wound Cleanser -Foul Odor after Cleansing No No -Anesthetic Used 5% Lidocaine 5% Lidocaine Gel Gel #1- L inferior yoder -Combined with other wound No -Current Size (cm) - Length 1 0.8 -Current Size (cm) - Width 0.8 0.5 -Current Size (cm) - Depth 0.8 0.4 -Total Square Cm 0.8 0.40 -Photo Taken No Yes -Epithelialization -Tunneling No -Tunneling Position (O'clock) -Tunneling Distance (cm) -Undermining/Tunneling No -Circular Undermining No -Exudate Amt Medium Medium -Exudate Type Serosanguineous Serosanguineous -Wound Margin Distinct, Distinct, Outline Outline Attached Attached -Granulation Amt Large (67-100%) Medium (34-66%) -Granulation Quality [place] -Slough/Fibrin Yes -Necrosis Amt Small (1-33%) Small (1-33%) -Necrotic Tissue Type Adherent Slough Adherent Slough -Structure Exposed N/A N/A -Texture (Mima-wound Skin Appearance) Scarring Assessed, Scarring -Moisture (Mima-wound Skin Appearance) Dry/Scaly Assessed -Color (Mima-wound Skin Appearance) Hemosiderin Assessed Staining -Temperature (Mima-wound Skin No Abnormality No Abnormality Appearance) (Pt Warm) (Pt Warm) -Tenderness on Palpation (Mima-wound No No Skin Appearance) -Ulcer Cleansing Soap and Water Wound Cleanser -Foul Odor after Cleansing No No -Anesthetic Used 5% Lidocaine 5% Lidocaine Gel Gel Lower Limb Edema Present Yes Left Calf (cm) 28.2 29 Left Ankle (cm) 20 18.4 WC - Nurse 2 - General Ulcer CM Notes Start: 02/06/22 09:19 Freq: Status: Active Protocol: Activity Type Activity Date Activity User E-sign Co-sign Detail Recorded Client Recorded Date Recorded By Document 02/06/22 09:50 [id number] 02/06/22 09:53 Document 02/13/22 09:57 [id number] 02/13/22 10:02 Document 02/20/22 09:47 [id number] 02/20/22 09:52 Document 02/27/22 09:59 [id number] 02/27/22 10:01 Document 03/06/22 09:45 PL [id number] 03/06/22 09:47 PL 02/06/22 02/13/22 02/20/22 09:50 09:57 09:47 Wound Center Nurse 2 3-left superior leg -Time 09:51 09:58 09:48 -Correct Patient Yes Yes Yes -Correct Side, Site, Position Yes Yes Yes -Correct Procedure Yes Yes Yes -Procedure Performed Yes Yes Yes -Type of Procedure Incision & Debridement Debridement Drainage -Clinical Debridement Subcutaneous Subcutaneous Subcutaneous -Tissue Removed Subcutaneous Subcutaneous Subcutaneous -Post Debridement (cm) - Length 0.4 0.6 0.5 -Post Debridement (cm) - Width 0.3 0.5 0.4 -Post Debridement (cm) - Depth 0.1 0.1 0.1 -Total Square (Post) (cm) 0.12 0.30 0.20 -Area of Debridement (cm) - Length 0.4 0.6 0.5 -Area of Debridement (cm) - Width 0.3 0.5 0.4 -Total Square (Area) (cm) 0.12 0.30 0.20 -Tunneling No No No -Undermining/Tunneling No No No -Circular Undermining No No No -Wound/Ulcer Outcome Not Healed Not Healed Not Healed -Ulcer Cleansing Rinsed/ Rinsed/ Rinsed/ Irrigated with Irrigated with Irrigated with Saline Saline Saline -Foul Odor after Cleansing No No No -Bioengineered Tissue No No No -Bleeding Controlled with Pressure Pressure Pressure -Treatment Response Procedure Procedure Procedure Tolerated Well Tolerated Well Tolerated Well -Offloading No No No -Debridement - Subq, 1st 20sq cm No No Yes #4 L Yoder Med -Time -Correct Patient -Correct Side, Site, Position -Correct Procedure -Procedure Performed -Type of Procedure -Clinical Debridement -Tissue Removed -Post Debridement (cm) - Length -Post Debridement (cm) - Width -Post Debridement (cm) - Depth -Total Square (Post) (cm) -Area of Debridement (cm) - Length -Area of Debridement (cm) - Width -Total Square (Area) (cm) -Tunneling -Undermining/Tunneling -Circular Undermining -Wound/Ulcer Outcome -Ulcer Cleansing -Foul Odor after Cleansing -Bioengineered Tissue -Bleeding Controlled with -Treatment Response -Offloading -Debridement - Subq, 20sq cm #1- L inferior yoder -Time 09:51 09:58 09:48 -Correct Patient Yes Yes Yes -Correct Side, Site, Position Yes Yes Yes -Correct Procedure Yes Yes Yes -Procedure Performed Yes Yes Yes -Type of Procedure Debridement Debridement Debridement -Clinical Debridement Subcutaneous Subcutaneous Subcutaneous -Tissue Removed Subcutaneous Subcutaneous Subcutaneous -Post Debridement (cm) - Length 1.8 0.8 0.7 -Post Debridement (cm) - Width 0.4 0.4 0.4 -Post Debridement (cm) - Depth 1.4 0.5 0.6 -Total Square (Post) (cm) 0.72 0.32 0.28 -Area of Debridement (cm) - Length 1.8 0.8 0.7 -Area of Debridement (cm) - Width 0.4 0.4 0.4 -Total Square (Area) (cm) 0.72 0.32 0.28 -Tunneling No No No -Undermining/Tunneling No No No -Circular Undermining No No No -Wound/Ulcer Outcome Not Healed Not Healed Not Healed -Ulcer Cleansing Rinsed/ Rinsed/ Rinsed/ Irrigated with Irrigated with Irrigated with Saline Saline Saline -Foul Odor after Cleansing No No No -Bioengineered Tissue No No No -Bleeding Controlled with Pressure Pressure Pressure -Treatment Response Procedure Procedure Procedure Tolerated Well Tolerated Well Tolerated Well -Offloading No No No -Debridement - Subq, 20sq cm Yes Yes No Pain Scale: 0-10 Numeric Is Patient Pain Free? Yes Yes Yes 02/27/22 03/06/22 09:59 09:45 Wound Center Nurse 2 3-left superior leg -Time 10:00 09:31 -Correct Patient Yes Yes -Correct Side, Site, Position Yes Yes -Correct Procedure Yes Yes -Procedure Performed Yes Yes -Type of Procedure Debridement Debridement -Clinical Debridement Subcutaneous Subcutaneous -Tissue Removed Dermis Subcutaneous -Post Debridement (cm) - Length 0.3 0.1 -Post Debridement (cm) - Width 0.3 0.1 -Post Debridement (cm) - Depth 0.3 0.1 -Total Square (Post) (cm) 0.09 0.01 -Area of Debridement (cm) - Length 0.3 0.1 -Area of Debridement (cm) - Width 0.3 0.1 -Total Square (Area) (cm) 0.09 0.01 -Tunneling No No -Undermining/Tunneling No No -Circular Undermining No No -Wound/Ulcer Outcome Not Healed Not Healed -Ulcer Cleansing Rinsed/ Rinsed/ Irrigated with Irrigated with Saline Saline -Foul Odor after Cleansing No No -Bioengineered Tissue No No -Bleeding Controlled with Pressure Pressure -Treatment Response Procedure Procedure Tolerated Well Tolerated Well -Offloading No -Debridement - Subq, 20sq cm No No #4 L Yoder Med -Time 09:59 09:31 -Correct Patient Yes Yes -Correct Side, Site, Position Yes Yes -Correct Procedure Yes Yes -Procedure Performed Yes Yes -Type of Procedure Debridement Debridement -Clinical Debridement Subcutaneous Subcutaneous -Tissue Removed Subcutaneous Subcutaneous -Post Debridement (cm) - Length 0.8 1.1 -Post Debridement (cm) - Width 0.6 0.6 -Post Debridement (cm) - Depth 0.9 0.5 -Total Square (Post) (cm) 0.48 0.66 -Area of Debridement (cm) - Length 0.8 1.1 -Area of Debridement (cm) - Width 0.6 0.6 -Total Square (Area) (cm) 0.48 0.66 -Tunneling No No -Undermining/Tunneling No No -Circular Undermining No No -Wound/Ulcer Outcome Not Healed Not Healed -Ulcer Cleansing Rinsed/ Rinsed/ Irrigated with Irrigated with Saline Saline -Foul Odor after Cleansing No No -Bioengineered Tissue No No -Bleeding Controlled with Pressure Pressure -Treatment Response Procedure Procedure Tolerated Well Tolerated Well -Offloading No -Debridement - Subq, 1st 20sq cm No No #1- L inferior yoder -Time 10:01 09:31 -Correct Patient Yes Yes -Correct Side, Site, Position Yes Yes -Correct Procedure Yes Yes -Procedure Performed Yes Yes -Type of Procedure Debridement Debridement -Clinical Debridement Subcutaneous Subcutaneous -Tissue Removed Subcutaneous Subcutaneous -Post Debridement (cm) - Length 1.1 0.8 -Post Debridement (cm) - Width 0.8 0.5 -Post Debridement (cm) - Depth 0.8 0.4 -Total Square (Post) (cm) 0.88 0.40 -Area of Debridement (cm) - Length 1.1 0.8 -Area of Debridement (cm) - Width 0.8 0.5 -Total Square (Area) (cm) 0.88 0.40 -Tunneling No No -Undermining/Tunneling No No -Circular Undermining No No -Wound/Ulcer Outcome Not Healed Not Healed -Ulcer Cleansing Rinsed/ Rinsed/ Irrigated with Irrigated with Saline Saline -Foul Odor after Cleansing No No -Bioengineered Tissue No No -Bleeding Controlled with Pressure Pressure -Treatment Response Procedure Procedure Tolerated Well Tolerated Well -Offloading No -Debridement - Subq, 1st 20sq cm Yes Yes Pain Scale: 0-10 Numeric Is Patient Pain Free? Yes Yes WC - Nurse 3 - General Ulcer D/C NN Start: 02/06/22 09:19 Freq: Status: Active Protocol: Activity Type Activity Date Activity User E-sign Co-sign Detail Recorded Client Recorded Date Recorded By Document 02/06/22 10:07 [id number] 02/06/22 10:10 DL Document 02/13/22 10:16 DL [id number] 02/13/22 10:31 DL Document 02/20/22 10:00 [facility] [id number] 02/20/22 10:01 [facility] Document 02/27/22 10:20 DL [id number] 02/27/22 10:22 DL Document 03/05/22 07:01 PL [id number] 03/05/22 07:02 PL Document 03/06/22 09:53 [facility] [id number] 03/06/22 09:54 [facility] 02/06/22 02/13/22 02/20/22 10:07 10:16 10:00 Wound Care Nurse 3 3-left superior leg -Ulcer Cleansing Soap and Water Not Cleansed Rinsed/ Irrigated with Saline -Foul Odor after Cleansing No No -Primary Dressing Applied Aquacel AG 2x2, Aquacel AG 2x2 Other Optilok 6.5x10 -Other Dressing superabsorber aquacel ag, drsg per rb rn -Primary Dressing Covered/Secured with Dry Gauze & Roll Gauze -Aquacel AG 2x2 1 1 -Optilok 6.5x10 1 #4 L Yoder Med -Ulcer Cleansing -Foul Odor after Cleansing -Primary Dressing Applied -Aquacel AG 4x4 -Aquacel AG 2x2 -Optilok 6.5x10 #1- L inferior yoder -Ulcer Cleansing Soap and Water Rinsed/ Rinsed/ Irrigated with Irrigated with Saline Saline -Foul Odor after Cleansing No No No -Primary Dressing Applied Optilok 6.5x10 Other -Other Dressing aquacel ag aqaucel ag/ aquacel ag; superabsorber drsg per rb rn -Primary Dressing Covered/Secured with Dry Gauze & Roll Gauze, Secured with Tape -Aquacel AG 4x4 -Optilok 6.5x10 1 Left -Lotion applied to leg before compression wrap -Multi-Layered Wrap Application Multi-Layer Multi-Layer Multi-Layer Comp - Left ($) Comp - Left ($) Comp - Left ($) Treatment Response Procedure Procedure Procedure Tolerated Well Tolerated Well Tolerated Well Pain Scale: 0-10 Numeric Is Patient Pain Free? Yes Yes Yes WC - Visit Discharge Discharge Condition Stable Stable Stable Ambulatory Status Ambulatory Ambulatory Ambulatory Transportation Private [facility] Facility Type Home Health Orders Sent Yes 02/27/22 03/05/22 03/06/22 10:20 07:01 09:53 Wound Care Nurse 3 3-left superior leg -Ulcer Cleansing Soap and Water -Foul Odor after Cleansing No -Primary Dressing Applied -Other Dressing aquacel ag/ superabsorber -Primary Dressing Covered/Secured with -Aquacel AG 2x2 -Optilok 6.5x10 #4 L Yoder Med -Ulcer Cleansing Soap and Water Rinsed/ Irrigated with Saline -Foul Odor after Cleansing No No -Primary Dressing Applied Aquacel AG 2x2, Aquacel AG 4x4, Optilok 6.5x10 Optilok 6.5x10 -Aquacel AG 4x4 1 -Aquacel AG 2x2 1 -Optilok 6.5x10 1 1 #1- L inferior yoder -Ulcer Cleansing Soap and Water Rinsed/ Irrigated with Saline -Foul Odor after Cleansing No No -Primary Dressing Applied Aquacel AG 4x4, Optilok 6.5x10 -Other Dressing aqaucel ag / superabsorber -Primary Dressing Covered/Secured with Dry Gauze & Roll Gauze, Secured with Tape -Aquacel AG 4x4 0 -Optilok 6.5x10 0 Left -Lotion applied to leg before Yes compression wrap -Multi-Layered Wrap Application Multi-Layer Multi-Layer Multi-Layer Comp - Left ($) Comp - Left ($) Comp - Left ($) Treatment Response Procedure Procedure Tolerated Well Tolerated Well Pain Scale: 0-10 Numeric Is Patient Pain Free? Yes Yes Yes WC - Visit Discharge Discharge Condition Stable Stable Ambulatory Status Ambulatory Ambulatory Transportation Private [facility] [facility] Type Home Health Orders Sent Yes Assessment/Plan Assessment/Plan (1) Delayed wound healing: CODE(S): T14.8XXD - Other injury of unspecified body region, subsequent encounter (2) Ulcer of left lower extremity with fat layer exposed: CODE(S): L97.922 - Non-pressure chronic ulcer of unspecified part of left lower leg with fat layer exposed (3) Osteomyelitis: CODE(S): M86.9 - Osteomyelitis, unspecified (4) Venous insufficiency (chronic) (peripheral): CODE(S): I87.2 - Venous insufficiency (chronic) (peripheral) (5) Localized edema: CODE(S): R60.0 - Localized edema (6) Rheumatoid arthritis: CODE(S): M06.9 - Rheumatoid arthritis, unspecified (7) Tobacco use disorder: CODE(S): F17.200 - Nicotine dependence, unspecified, uncomplicated (8) Malnutrition: CODE(S): E46 - Unspecified protein-calorie malnutrition (9) Body mass index [BMI] 19.9 or less, adult: CODE(S): Z68.1 - Body mass index [BMI] 19.9 or less, adult (10) Contusion of right ankle: CODE(S): S90.01XA - Contusion of right ankle, initial encounter PLAN: Plan I reviewed and discussed her case today. Debridement was performed today as noted in the clinical panel to the ulcer site. Her new ulcer site is noted. The following work up and care recommendations were made: Dressing: To change daily with hydrogel. Wash: Antibacterial soap and water. Avoid soaking. To avoid bathtub bathing where her leg including her wound are submerged. I recommend she uses traditional antibacterial soap and water. Tissue growth optimization: If she does have a documented history of osteomyelitis that is chronic she may be a candidate for hyperbaric oxygen therapy. 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 However, I would like to confirm if this is a relative or firm contraindication. She will consider this treatment again. Her last seizure was noted to be about three years ago. Offload: To avoid direct pressure on the site. Vascular / edema: She has nonpalpable pulses and lack of hair. She also has questionable claudication presentation. I recommend noninvasive vascular studies including MARI, segmental thigh and leg pressure, PVR, and systolic toe pressure. The results were reviewed and she has left biphasic waveforms, left MARI of 1.2, and left toe brachial index is 0.72. The segmental thigh and leg pressures were not obtained. There is not a difference of over 30 mmHg when compared to arm pressures. She is also advised to discontinue all tobacco products to optimize healing and limb salvage opportunities. Due to ongoing lack of healing, a vascular referral was provided for Dr. Rdz. She started intervention and was advised to follow-up with her scheduled ultrasound as advised. Medical records have been reviewed and additional interventions not currently planned. Her treatment is mainly for venous insufficiency at this time. There is mild to moderate edema. I recommend 3M 2L multilayer compression dressings. This was applied today and she was advised to keep this intact until next week. Infection: She does not have kevin purulent drainage today or erythema, streaking, or odor. To monitor for this. Culture was previously updated for mrsa pcr, aerobic and anearobic. She has a noted h/o MRSA growth. I recommend considering IV antibiotics due to her continued MRSA infections. She is also under the management of infectious disease specialist and continues IV antibiotics and has a PICC line in place. She is currently on a 6-week course of linezolid and this has been completed. no infection signs noted today. Today, I am concerned about her exposed bone and significant increase in ulcer size and I ordered an x-ray to rule out any underlying bone pathology. She obtained the 2 leg x-rays on which did not demonstrate any osseous destruction, foreign body or soft tissue emphysema or periosteal reaction. Pain: Controlled Host factors: She has significant delays in healing. We discussed tobacco cessation and how this impairs healing. She has some muscle wasting and delayed healing and nutritional supplementation would also be beneficial. She is underweight and is not consuming adequate micro or macronutrients. A prescription for Jay and Ensure with 30 g of protein per shake were provided today. I also recommended a nutrition referral to optimize healing; scheduling in process. She has rheumatoid arthritis and understands this may also delay her healing. She was urged to reduce smoking; discussed at length again today. Her outcome prognosis is poor with continued tobacco use. Labs: Updated labs were recently updated including CBC, CMP, ESR, C-reactive protein, and hemoglobin A1c. No leukocytosis was noted. ESR 24. CRP 23.5. No gross abnormalities with CMP. A1c of 5.5%. Imaging: Left leg xrays were recently updated (02-20-22) - there is a healed fracture in the mid third of the left tibia but apparently there is periosteal reaction and what appears to be chronic osteomyelitis with possibility of sinus tract. We discussed her rheumatoid arthritis significant medical history which may be contributing to delayed healing however I suspect her malnutrition and persistent smoking habits are interfering with her progress. F/u with gluing crew leader as advised. Jay samples were provided. I answered all the patient's questions. To return to the wound healing center in 1 week for nursing dressing change in 2 weeks for physician evaluation, or call sooner if the patient has any questions or concerns. Compliance was discussed and this is required for healing progression. Note: [employer] speech recognition e learning coordinator software was used to create portions of this document. Sound-alike and misspelled words, as well as other e learning coordinator errors may be contained in the documentation. The medical decision making level is moderate. There is noted moderate risk of morbidity after considering this treatment plan and diagnostic data. Considerations were given to prescription management, decisions regarding surgical options, or social determinants of health. The medical decision making level is moderate based on data including at least three of the following: review of prior external notes, review of a test, ordering a test, assessment requiring an independent historian.
== END 2022-03-07 23:59 | disposition home or self-care (01) ==
LOC: WC 09:30
PROVIDERS: Referring Provider Podiatrist; Visit Provider Podiatrist
DX: L97.922 Non-pressure chronic ulcer of unspecified part of left lower leg with fat layer exposed (principal); E46 Unspecified protein-calorie malnutrition; M06.9 Rheumatoid arthritis, unspecified; M86.9 Osteomyelitis, unspecified; F17.200 Nicotine dependence, unspecified, uncomplicated; R60.0 Localized edema; Z60.9 Problem related to social environment, unspecified; I87.2 Venous insufficiency (chronic) (peripheral); Z68.1 Body mass index [BMI] 19.9 or less, adult; S90.01XA Contusion of right ankle, initial encounter
CPT/HCPCS: 11042; 29581; 73590

== ENCOUNTER 2022-04-03 13:30 | Outpatient (RCR) | payer MEDICAID, SELFPAY ==
[2022-03-08 00:28] VITALS: BP 125/64; PULSE 88; RESP 16; TEMP 35.8; BMI 20.5
[2022-03-08 08:42] VITALS: BP 122/54; PULSE 89; RESP 18; TEMP 36.6; BMI 20.5
[2022-03-13 09:17] VITALS: BP 125/70; PULSE 89; RESP 18; TEMP 36.3; BMI 20.5
--- NOTE | 2022-03-13 09:45 | PCM.WC.PN ---
History of Present Illness Date of Service: 03/13/22 Chief Complaint: left leg ulcer History of Wound: This 61-year-old female was seen today for left leg ulcer. She denies fever, chill, nausea, vomiting, diarrhea. She tries to wear compression garment. She denies leg pain, redness, or odor. She denies trauma or recent increase in swelling. She had venous intervention with vascular specialist, Dr. Rdz. She has been wearing her compression stocking as advised anytime she is not wearing a 3M 2L compression dressing. She continues to smoke and has vascular disease. She also has rheumatoid arthritis. She went for a continuous mining machine coal miner referral and is considering making some changes to her dietary intake. She was given a prescription for Jay and Glucerna was not able to get these due to cost. She will accept samples again today. She is not able to quit smoking. She saw the continuous mining machine coal miner as advised and has plans to obtain some higher protein foods. She is reporting significant apprehensive because she is afraid to gain weight. She denies new complaints or injuries today. Progress of Wound: Improving Objective Data Objective Data Vital Signs: Vital Signs Temp Pulse Resp BP O2 Del Method 97.3 F L 89 18 125/70 H Room Air 03/13/22 09:17 03/13/22 09:17 03/13/22 09:17 03/13/22 09:17 03/08/22 08:42 Oxygen Delivery Method Room Air Weight: 43.091 kg Body Mass Index (BMI) 20.5 Physical Exam Extremity Extremity Narrative: No calf tenderness (negative Winston and Avendano sign, no warmth or calor) Diminished pulses Muscle wasting noted some wound cultures Adjacent skin is atrophic and hairless Prior skin grafting surgical intervention site noted with cicatrix Noted leg edema, increased today proximal most wound of cluster is healed. reduced ulcer depth noted. granular base seen. distal most ulcer site has tunneling at 2 o'clock position, 1.6 cm Neuro Neuro Narrative: lack of normal epicritic sensation via light touch is consistent with neuropathy status Debridement Note Debridement Note Wound debrided: left leg Wound Grade/Stage: Type of Debridement: Excisional debridement Anesthesia Used: 4% Lidocaine Solution Depth: in the subcutaneous layer Percentage of wound debrided: 40 Instrument Used: #15 blade Tissue Removed: fibrous, devitalized subcutaneous, biofilm, slough Severity: Fat Layer Exposed Amount of bleeding with debridement: Mild Bleeding Controlled with: Pressure Patient tolerated procedure: Patient tolerated procedure well Post-Debridement Measurements and Additional Note: Post-Debridement Measurements/Treatment - Nurse 1 - General Ulcer Assessment Start: 03/08/22 08:42 Freq: Status: Active Protocol: ELENA Activity Type Activity Date Activity User E-sign Co-sign Detail Recorded Client Recorded Date Recorded By Document 03/08/22 08:42 ML [id number] 03/08/22 08:44 ML Document 03/13/22 09:17 RB [id number] 03/13/22 09:27 RB 03/08/22 03/13/22 08:42 09:17 WC - Today's Visit Information Type of service Nurse-only Follow-up Visit Visit (Physician/VIDEO OPERATOR ) Arrival Mode Ambulatory Ambulatory Transfer Assistance None None Patient Identification Verified (Name & Yes Yes ) Patient Requires Transmission-Based No No Precautions Safety Precautions NA Height and Weight Body Mass Index (BMI) 20.5 20.5 BMI Classification Normal Normal Vital Signs Temperature (97.8 F-99.1 F) 97.8 F 97.3 F L Temperature Source Temporal Temporal Pulse Rate (60-100) 89 89 Pulse Location Monitor Monitor Respiratory Rate (12-18) 18 18 Respiratory rate source Observation Observation Oxygen Delivery Method Room Air Blood Pressure (90/60-120/80) 122/54 H 125/70 H Blood Pressure Mean (mm Hg) 76 88 Source Monitor Monitor Position Sitting Semi-Fowlers Blood Pressure Location Left Arm Left Arm History Since Last Visit- (Skip if this is Patient's initial visit) Have you changed medications since your No No last visit? Any new allergies or adverse reactions No No Had a fall/change in ADL's that may No No increase risk of falls Signs or symptoms of abuse and/or No No neglect since last visit Have you been in the hospital since your No No last visit? Has dressing in place as prescribed Yes Yes Has compression in place as prescribed Yes Yes Has offloadiing in place as prescribed Yes No Experienced any changes in pain level or No No management Left Footwear Regular Shoe Right Footwear Regular Shoe Pain Scale: 0-10 Numeric Is Patient Pain Free? Yes Yes [facility] Nurse 1 - General Ulcer Measurement Start: 03/08/22 08:42 Freq: Status: Active Protocol: Activity Type Activity Date Activity User E-sign Co-sign Detail Recorded Client Recorded Date Recorded By Document 03/13/22 09:17 MODE [id number] 03/13/22 09:27 RB 03/13/22 09:17 Wound Center Nurse 1 #4 L Yoder Med -Combined with other wound No -Current Size (cm) - Length 0.5 -Current Size (cm) - Width 0.3 -Current Size (cm) - Depth 0.2 -Total Square Cm 0.15 -Tunneling No -Undermining/Tunneling No -Circular Undermining No -Exudate Amt Medium -Exudate Type Serosanguineous -Wound Margin Distinct, Outline Attached -Granulation Amt Medium (34-66%) -Granulation Quality [place] -Slough/Fibrin Yes -Necrosis Amt Small (1-33%) -Necrotic Tissue Type Adherent Slough -Structure Exposed N/A -Texture (Mima-wound Skin Appearance) Assessed, Scarring -Moisture (Mima-wound Skin Appearance) Assessed -Color (Mima-wound Skin Appearance) Assessed -Temperature (Mima-wound Skin No Abnormality Appearance) (Pt Warm) -Tenderness on Palpation (Mima-wound No Skin Appearance) -Ulcer Cleansing Wound Cleanser -Foul Odor after Cleansing No -Anesthetic Used 5% Lidocaine Gel #1- L inferior yoder -Combined with other wound No -Current Size (cm) - Length 0.7 -Current Size (cm) - Width 0.3 -Current Size (cm) - Depth 1 -Total Square Cm 0.21 -Tunneling No -Undermining/Tunneling Yes -Undermining/Tunneling Starts (O'clock 1 ) -Undermining/Tunneling Ends (O'clock) 2 -Maximum Distance (cm) 1 -Circular Undermining No -Exudate Amt Large -Exudate Type Serosanguineous -Wound Margin Distinct, Outline Attached -Granulation Amt Medium (34-66%) -Granulation Quality [place] -Slough/Fibrin Yes -Necrosis Amt Small (1-33%) -Necrotic Tissue Type Adherent Slough -Structure Exposed N/A -Texture (Mima-wound Skin Appearance) Assessed, Scarring -Moisture (Mima-wound Skin Appearance) Assessed -Color (Mima-wound Skin Appearance) Assessed -Temperature (Mima-wound Skin No Abnormality Appearance) (Pt Warm) -Tenderness on Palpation (Mima-wound No Skin Appearance) -Ulcer Cleansing Wound Cleanser -Foul Odor after Cleansing No -Anesthetic Used 5% Lidocaine Gel Lower Limb Edema Present Yes Left Calf (cm) 29.5 Left Ankle (cm) 19.5 WC - Nurse 2 - General Ulcer CM Notes Start: 03/08/22 08:42 Freq: Status: Active Protocol: Activity Type Activity Date Activity User E-sign Co-sign Detail Recorded Client Recorded Date Recorded By Document 03/13/22 09:40 PL [id number] 03/13/22 09:41 PL 03/13/22 09:40 Wound Center Nurse 2 #4 L Yoder Med -Time 09:31 -Correct Patient Yes -Correct Side, Site, Position Yes -Correct Procedure Yes -Procedure Performed Yes -Type of Procedure Debridement -Clinical Debridement Subcutaneous -Tissue Removed Subcutaneous -Post Debridement (cm) - Length 1.5 -Post Debridement (cm) - Width 1.8 -Post Debridement (cm) - Depth 0.8 -Total Square (Post) (cm) 2.70 -Area of Debridement (cm) - Length 1.5 -Area of Debridement (cm) - Width 0.8 -Total Square (Area) (cm) 1.20 -Tunneling Yes -Tunneling Position (O'clock) 2 -Tunneling Distance (cm) 1.6 -Wound/Ulcer Outcome Not Healed -Ulcer Cleansing Rinsed/ Irrigated with Saline -Foul Odor after Cleansing No -Bioengineered Tissue No -Bleeding Controlled with Pressure -Treatment Response Procedure Tolerated Well -Debridement - Subq, 1st 20sq cm Yes Pain Scale: 0-10 Numeric Is Patient Pain Free? Yes - Nurse 3 - General Ulcer D/C NN Start: 03/08/22 08:42 Freq: Status: Active Protocol: Activity Type Activity Date Activity User E-sign Co-sign Detail Recorded Client Recorded Date Recorded By Document 03/08/22 07:20 PL [id number] 03/12/22 07:20 PL 03/08/22 07:20 Wound Care Nurse 3 Left -Multi-Layered Wrap Application Multi-Layer Comp - Left ($) Pain Scale: 0-10 Numeric Is Patient Pain Free? Yes Assessment/Plan Assessment/Plan (1) Ulcer of left lower extremity with fat layer exposed: CODE(S): L97.922 - Non-pressure chronic ulcer of unspecified part of left lower leg with fat layer exposed (2) Delayed wound healing: CODE(S): T14.8XXD - Other injury of unspecified body region, subsequent encounter (3) Osteomyelitis: CODE(S): M86.9 - Osteomyelitis, unspecified (4) Venous insufficiency (chronic) (peripheral): CODE(S): I87.2 - Venous insufficiency (chronic) (peripheral) (5) Localized edema: CODE(S): R60.0 - Localized edema (6) Rheumatoid arthritis: CODE(S): M06.9 - Rheumatoid arthritis, unspecified (7) Tobacco use disorder: CODE(S): F17.200 - Nicotine dependence, unspecified, uncomplicated (8) Malnutrition: CODE(S): E46 - Unspecified protein-calorie malnutrition (9) Body mass index [BMI] 19.9 or less, adult: CODE(S): Z68.1 - Body mass index [BMI] 19.9 or less, adult (10) Contusion of right ankle: CODE(S): S90.01XA - Contusion of right ankle, initial encounter PLAN: Plan I reviewed and discussed her case today. Debridement was performed today as noted in the clinical panel to the ulcer site. The following work up and care recommendations were made: Dressing: To change daily with hydrogel. Wash: Antibacterial soap and water. Avoid soaking. To avoid bathtub bathing where her leg including her wound are submerged. I recommend she uses traditional antibacterial soap and water. Tissue growth optimization: If she does have a documented history of osteomyelitis that is chronic she may be a candidate for hyperbaric oxygen therapy. 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 However, I would like to confirm if this is a relative or firm contraindication. She will consider this treatment again. Her last seizure was noted to be about three years ago. Offload: To avoid direct pressure on the site. Vascular / edema: She has nonpalpable pulses and lack of hair. She also has questionable claudication presentation. I recommend noninvasive vascular studies including MARI, segmental thigh and leg pressure, PVR, and systolic toe pressure. The results were reviewed and she has left biphasic waveforms, left MARI of 1.2, and left toe brachial index is 0.72. The segmental thigh and leg pressures were not obtained. There is not a difference of over 30 mmHg when compared to arm pressures. She is also advised to discontinue all tobacco products to optimize healing and limb salvage opportunities. Due to ongoing lack of healing, a vascular referral was provided for Dr. Rdz. She started intervention and was advised to follow-up with her scheduled ultrasound as advised. Medical records have been reviewed and additional interventions not currently planned. Her treatment is mainly for venous insufficiency at this time. There is mild to moderate edema. I recommend 3M 2L multilayer compression dressings. This was applied today and she was advised to keep this intact until next week. Infection: She does not have kevin purulent drainage today or erythema, streaking, or odor. To monitor for this. Culture was previously updated for mrsa pcr, aerobic and anearobic. She has a noted h/o MRSA growth. I recommend considering IV antibiotics due to her continued MRSA infections. She is also under the management of infectious disease specialist and continues IV antibiotics and has a PICC line in place. She is currently on a 6-week course of linezolid and this has been completed. no infection signs noted today. Today, I am concerned about her exposed bone and significant increase in ulcer size and I ordered an x-ray to rule out any underlying bone pathology. She obtained the 2 leg x-rays on which did not demonstrate any osseous destruction, foreign body or soft tissue emphysema or periosteal reaction. Pain: Controlled Host factors: She has significant delays in healing. We discussed tobacco cessation and how this impairs healing. She has some muscle wasting and delayed healing and nutritional supplementation would also be beneficial. She is underweight and is not consuming adequate micro or macronutrients. A prescription for Jay and Ensure with 30 g of protein per shake were provided today. I also recommended a nutrition referral to optimize healing; scheduling in process. She has rheumatoid arthritis and understands this may also delay her healing. She was urged to reduce smoking; discussed at length again today. Her outcome prognosis is poor with continued tobacco use. Labs: Updated labs were recently updated including CBC, CMP, ESR, C-reactive protein, and hemoglobin A1c. No leukocytosis was noted. ESR 24. CRP 23.5. No gross abnormalities with CMP. A1c of 5.5%. Imaging: Left leg xrays were recently updated (02-20-22) - there is a healed fracture in the mid third of the left tibia but apparently there is periosteal reaction and what appears to be chronic osteomyelitis with possibility of sinus tract. We discussed her rheumatoid arthritis significant medical history which may be contributing to delayed healing however I suspect her malnutrition and persistent smoking habits are interfering with her progress. F/u with continuous mining machine coal miner as advised; she initiated this process. Jay samples were provided. He is significantly underweight and has full body muscle tone loss and ongoing issues with healing. I do not think she is at risk for overweight status and we discussed her primary focus needs to be on obtaining the appropriate nutrients to allow healing. I answered all the patient's questions. To return to the wound healing center in 1 week for nursing dressing change in 2 weeks for physician evaluation, or call sooner if the patient has any questions or concerns. Compliance was discussed and this is required for healing progression. Note: [employer] speech recognition stretcher leveler operator helper software was used to create portions of this document. Sound-alike and misspelled words, as well as other stretcher leveler operator helper errors may be contained in the documentation.
[2022-03-18 10:54] VITALS: BP 111/69; PULSE 69; TEMP 36.6; BMI 20.5
[2022-03-20 09:14] VITALS: BP 146/76; PULSE 90; RESP 16; TEMP 36.6; BMI 20.5
--- NOTE | 2022-03-20 19:36 | PN.PCM_ITS ---
History of Present Illness Date of Service: 03/20/22 Chief Complaint: left leg ulcer History of Wound: This 61-year-old female was seen today for left leg ulcer. She denies fever, chill, nausea, vomiting, diarrhea. She tries to wear compression garment. She denies leg pain, redness, or odor. She denies trauma or recent increase in swelling. She had venous intervention with vascular specialist, Dr. Rdz. She has been wearing her compression stocking as advised anytime she is not wearing a 3M 2L compression dressing. She continues to smoke and has vascular disease. She also has rheumatoid arthritis. She went for a commissioning editor referral and is considering making some changes to her di etary intake. She was given a prescription for Jay and Glucerna was not able to get these due to cost. She will accept samples again today. She is not able to quit smoking. She saw the commissioning editor as advised is trying to implement some of the recommended changes. She is concerned about gaining weight. Progress of Wound: Improving Objective Data Objective Data Vital Signs: Vital Signs Temp Pulse Resp BP O2 Del Method 97.9 F 90 16 146/76 H Room Air 03/20/22 09:14 03/20/22 09:14 03/20/22 09:14 03/20/22 09:14 03/20/22 09:14 Oxygen Delivery Method Room Air Weight: 43.091 kg Body Mass Index (BMI) 20.5 Physical Exam Extremity Extremity Narrative: No calf tenderness (negative Winston and Avendano sign, no warmth or calor) Diminished pulses Muscle wasting noted some wound cultures Adjacent skin is atrophic and hairless Prior skin grafting surgical intervention site noted with cicatrix Noted leg edema, increased today proximal most wound of cluster is healed. reduced ulcer depth noted. granular base seen. distal most ulcer site has tunneling at 2 o'clock position, 1.6 cm Neuro Neuro Narrative: lack of normal epicritic sensation via light touch is consistent with neuropathy status Debridement Note Debridement Note Wound debrided: left leg Wound Grade/Stage: Type of Debridement: Excisional debridement Anesthesia Used: 4% Lidocaine Solution Depth: in the subcutaneous layer Percentage of wound debrided: 40 Instrument Used: #15 blade Tissue Removed: fibrous, devitalized subcutaneous, biofilm, slough Severity: Fat Layer Exposed Amount of bleeding with debridement: Mild Bleeding Controlled with: Pressure Patient tolerated procedure: Patient tolerated procedure well Post-Debridement Measurements and Additional Note: Post-Debridement Measurements/Treatment WC - Nurse 1 - General Ulcer Assessment Start: 03/08/22 08:42 Freq: Status: Active Protocol: ELENA Activity Type Activity Date Activity User E-sign Co-sign Detail Recorded Client Recorded Date Recorded By Document 03/08/22 08:42 ML [id number] 03/08/22 08:44 ML Document 03/13/22 09:17 RB [id number] 03/13/22 09:27 RB Document 03/18/22 10:54 AK [id number] 03/18/22 10:58 AK Document 03/20/22 09:14 BMF [id number] 03/20/22 09:24 BMF 03/08/22 03/13/22 03/18/22 08:42 09:17 10:54 - Today's Visit Information Type of service Nurse-only Follow-up Visit Follow-up Visit Visit (Physician/CUT ROLL MACHINE OPERATOR (Physician/CUT ROLL MACHINE OPERATOR ) ) Arrival Mode Ambulatory Ambulatory Ambulatory Transfer Assistance None None Patient Identification Verified (Name & Yes Yes Yes ) Patient Requires Transmission-Based No No No Precautions Safety Precautions NA NA Height and Weight Body Mass Index (BMI) 20.5 20.5 20.5 BMI Classification Normal Normal Normal Vital Signs Temperature (97.8 F-99.1 F) 97.8 F 97.3 F L 97.9 F Temperature Source Temporal Temporal Temporal Pulse Rate (60-100) 89 89 69 Pulse Location Monitor Monitor Monitor Respiratory Rate (12-18) 18 18 Respiratory rate source Observation Observation Oxygen Delivery Method Room Air Blood Pressure (90/60-120/80) 122/54 H 125/70 H 111/69 Blood Pressure Mean (mm Hg) 76 88 83 Source Monitor Monitor Position Sitting Semi-Fowlers Blood Pressure Location Left Arm Left Arm History Since Last Visit- (Skip if this is Patient's initial visit) Have you changed medications since your No No No last visit? Any new allergies or adverse reactions No No No Had a fall/change in ADL's that may No No No increase risk of falls Signs or symptoms of abuse and/or No No No neglect since last visit Have you been in the hospital since your No No No last visit? Has dressing in place as prescribed Yes Yes Yes Has compression in place as prescribed Yes Yes Yes Has offloadiing in place as prescribed Yes No N/A Experienced any changes in pain level or No No No management Left Footwear Regular Shoe Regular Shoe Right Footwear Regular Shoe Regular Shoe Pain Scale: 0-10 Numeric Is Patient Pain Free? Yes Yes Yes 03/20/22 09:14 - Today's Visit Information Type of service Follow-up Visit (Physician/CUT ROLL MACHINE OPERATOR ) Arrival Mode Ambulatory Transfer Assistance None Patient Identification Verified (Name & Yes ) Patient Requires Transmission-Based No Precautions Safety Precautions Height and Weight Body Mass Index (BMI) 20.5 BMI Classification Normal Vital Signs Temperature (97.8 F-99.1 F) 97.9 F Temperature Source Temporal Pulse Rate (60-100) 90 Pulse Location Monitor Respiratory Rate (12-18) 16 Respiratory rate source Observation Oxygen Delivery Method Room Air Blood Pressure (90/60-120/80) 146/76 H Blood Pressure Mean (mm Hg) 99 Source Monitor Position Sitting Blood Pressure Location Left Arm History Since Last Visit- (Skip if this is Patient's initial visit) Have you changed medications since your No last visit? Any new allergies or adverse reactions No Had a fall/change in ADL's that may No increase risk of falls Signs or symptoms of abuse and/or No neglect since last visit Have you been in the hospital since your No last visit? Has dressing in place as prescribed Yes Has compression in place as prescribed Yes Has offloadiing in place as prescribed N/A Experienced any changes in pain level or No management Left Footwear Regular Shoe Right Footwear Regular Shoe Pain Scale: 0-10 Numeric Is Patient Pain Free? Yes - Nurse 1 - General Ulcer Measurement Start: 03/08/22 08:42 Freq: Status: Active Protocol: Activity Type Activity Date Activity User E-sign Co-sign Detail Recorded Client Recorded Date Recorded By Document 03/13/22 09:17 RB [id number] 03/13/22 09:27 RB Document 03/20/22 09:14 [facility] [id number] 03/20/22 09:24 [facility] 03/13/22 03/20/22 09:17 09:14 Wound Center Nurse 1 #4 L Yoder Med -Combined with other wound No No -Current Size (cm) - Length 0.5 0.1 -Current Size (cm) - Width 0.3 0.1 -Current Size (cm) - Depth 0.2 0.1 -Total Square Cm 0.15 0.01 -Date of Last Picture (Recall this 03/20/22 field) -Photo Taken Yes -Epithelialization Large 67-100% -Tunneling No -Undermining/Tunneling No -Circular Undermining No -Exudate Amt Medium -Exudate Type Serosanguineous -Wound Margin Distinct, Outline Attached -Granulation Amt Medium (34-66%) -Granulation Quality [place] -Slough/Fibrin Yes -Necrosis Amt Small (1-33%) -Necrotic Tissue Type Adherent Slough -Structure Exposed N/A -Texture (Mima-wound Skin Appearance) Assessed, Scarring -Moisture (Mima-wound Skin Appearance) Assessed -Color (Mima-wound Skin Appearance) Assessed -Temperature (Mima-wound Skin No Abnormality Appearance) (Pt Warm) -Tenderness on Palpation (Mima-wound No Skin Appearance) -Ulcer Cleansing Wound Cleanser Soap and Water -Foul Odor after Cleansing No No -Anesthetic Used 5% Lidocaine 5% Lidocaine Gel Gel #1- L inferior yoder -Combined with other wound No No -Current Size (cm) - Length 0.7 0.5 -Current Size (cm) - Width 0.3 0.3 -Current Size (cm) - Depth 1 0.4 -Total Square Cm 0.21 0.15 -Date of Last Picture (Recall this 03/20/22 field) -Photo Taken Yes -Epithelialization Small 1-33% -Tunneling No No -Undermining/Tunneling Yes No -Undermining/Tunneling Starts (O'clock 1 ) -Undermining/Tunneling Ends (O'clock) 2 -Maximum Distance (cm) 1 -Circular Undermining No No -Exudate Amt Large Small -Exudate Type Serosanguineous Serous -Wound Margin Distinct, Distinct, Outline Outline Attached Attached -Granulation Amt Medium (34-66%) Small (1-33%) -Granulation Quality [place] Red -Slough/Fibrin Yes Yes -Necrosis Amt Small (1-33%) Medium (34-66%) -Necrotic Tissue Type Adherent Slough Adherent Slough -Structure Exposed N/A -Texture (Mima-wound Skin Appearance) Assessed, Assessed, Scarring Scarring -Moisture (Mima-wound Skin Appearance) Assessed Assessed,Dry/ Scaly -Color (Mima-wound Skin Appearance) Assessed Assessed, Hemosiderin Staining -Temperature (Mima-wound Skin No Abnormality No Abnormality Appearance) (Pt Warm) (Pt Warm) -Tenderness on Palpation (Mima-wound No No Skin Appearance) -Ulcer Cleansing Wound Cleanser Soap and Water -Foul Odor after Cleansing No No -Anesthetic Used 5% Lidocaine 5% Lidocaine Gel Gel Lower Limb Edema Present Yes Left Calf (cm) 29.5 29.4 Left Ankle (cm) 19.5 19.7 WC - Nurse 2 - General Ulcer CM Notes Start: 03/08/22 08:42 Freq: Status: Active Protocol: Activity Type Activity Date Activity User E-sign Co-sign Detail Recorded Client Recorded Date Recorded By Document 03/13/22 09:40 PL [id number] 03/13/22 09:41 PL Document 03/20/22 09:34 [id number] 03/20/22 09:36 03/13/22 03/20/22 09:40 09:34 Wound Center Nurse 2 #4 L Yoder Med -Time 09:31 09:34 -Correct Patient Yes Yes -Correct Side, Site, Position Yes Yes -Correct Procedure Yes Yes -Procedure Performed Yes Yes -Type of Procedure Debridement Debridement -Clinical Debridement Subcutaneous Subcutaneous -Tissue Removed Subcutaneous Subcutaneous -Post Debridement (cm) - Length 1.5 0.1 -Post Debridement (cm) - Width 1.8 0.2 -Post Debridement (cm) - Depth 0.8 0.1 -Total Square (Post) (cm) 2.70 0.02 -Area of Debridement (cm) - Length 1.5 0.1 -Area of Debridement (cm) - Width 0.8 0.2 -Total Square (Area) (cm) 1.20 0.02 -Tunneling Yes No -Tunneling Position (O'clock) 2 -Tunneling Distance (cm) 1.6 -Undermining/Tunneling No -Circular Undermining No -Wound/Ulcer Outcome Not Healed Not Healed -Ulcer Cleansing Rinsed/ Rinsed/ Irrigated with Irrigated with Saline Saline -Foul Odor after Cleansing No No -Bioengineered Tissue No No -Bleeding Controlled with Pressure Pressure -Treatment Response Procedure Procedure Tolerated Well Tolerated Well -Offloading No -Debridement - Subq, 1st 20sq cm Yes No #1- L inferior yoder -Time 09:34 -Correct Patient Yes -Correct Side, Site, Position Yes -Correct Procedure Yes -Procedure Performed Yes -Type of Procedure Debridement -Clinical Debridement Subcutaneous -Tissue Removed Subcutaneous -Post Debridement (cm) - Length 0.5 -Post Debridement (cm) - Width 0.3 -Post Debridement (cm) - Depth 1.6 -Total Square (Post) (cm) 0.15 -Area of Debridement (cm) - Length 0.5 -Area of Debridement (cm) - Width 0.3 -Total Square (Area) (cm) 0.15 -Tunneling No -Undermining/Tunneling No -Circular Undermining No -Wound/Ulcer Outcome Not Healed -Ulcer Cleansing Rinsed/ Irrigated with Saline -Foul Odor after Cleansing No -Bioengineered Tissue No -Bleeding Controlled with Pressure -Treatment Response Procedure Tolerated Well -Offloading No -Debridement - Subq, 1st 20sq cm Yes Pain Scale: 0-10 Numeric Is Patient Pain Free? Yes Yes WC - Nurse 3 - General Ulcer D/C NN Start: 03/08/22 08:42 Freq: Status: Active Protocol: Activity Type Activity Date Activity User E-sign Co-sign Detail Recorded Client Recorded Date Recorded By Document 03/08/22 07:20 PL [id number] 03/12/22 07:20 PL Document 03/13/22 09:54 RB [id number] 03/13/22 09:56 RB Document 03/18/22 10:54 AK [id number] 03/18/22 10:58 AK Edit Result 03/18/22 10:54 AK (1) [id number] 03/19/22 16:46 PL Document 03/20/22 09:47 JF [id number] 03/20/22 09:48 JF (1) Left - Multi-Layered Wrap Application => Multi-Layer Comp - => Left ($) 03/08/22 03/13/22 03/18/22 07:20 09:54 10:54 Wound Care Nurse 3 #4 L Yoder Med -Ulcer Cleansing Wound Cleanser Rinsed/ Irrigated with Saline -Foul Odor after Cleansing No -Negative Pressure Wound Therapy N/A -Primary Dressing Applied Aquacel AG 2x2, Aquacel AG 2x2, Optilok 6.5x10 Optilok 6.5x10 -Primary Dressing Covered/Secured with -Aquacel AG 2x2 1 1 -Optilok 6.5x10 1 1 #1- L inferior yoder -Ulcer Cleansing Rinsed/ Irrigated with Saline -Foul Odor after Cleansing No -Negative Pressure Wound Therapy N/A -Primary Dressing Applied Aquacel AG 2x2 -Other Dressing aquacel ag and super absorber -Primary Dressing Covered/Secured with -Aquacel AG 2x2 0 -Optilok 6.5x10 Left -Lotion applied to leg before compression wrap -Multi-Layered Wrap Application Multi-Layer Multi-Layer Multi-Layer Comp - Left ($) Comp - Left ($) Comp - Left ($) Treatment Response Procedure Tolerated Well Vital Signs Temperature (97.8 F-99.1 F) 97.9 F Temperature Source Temporal Pulse Rate (60-100) 69 Pulse Location Monitor Blood Pressure (90/60-120/80) 111/69 Blood Pressure Mean (mm Hg) 83 Pain Scale: 0-10 Numeric Is Patient Pain Free? Yes Yes Yes WC - Visit Discharge Discharge Condition Stable Stable Ambulatory Status Ambulatory Transportation Private Auto Private Auto Medication Reconcilliation completed & No Yes provided to patient/care provider Clinical Summary of Care Provided Yes Yes 03/20/22 09:47 Wound Care Nurse 3 #4 L Yoder Med -Ulcer Cleansing Rinsed/ Irrigated with Saline -Foul Odor after Cleansing No -Negative Pressure Wound Therapy -Primary Dressing Applied Aquacel AG 2x2, Optilok 6.5x10 -Primary Dressing Covered/Secured with Dry Gauze -Aquacel AG 2x2 1 -Optilok 6.5x10 1 #1- L inferior yoder -Ulcer Cleansing Rinsed/ Irrigated with Saline -Foul Odor after Cleansing No -Negative Pressure Wound Therapy -Primary Dressing Applied Aquacel AG 2x2 -Other Dressing optilock -Primary Dressing Covered/Secured with Dry Gauze -Aquacel AG 2x2 0 -Optilok 6.5x10 0 Left -Lotion applied to leg before Yes compression wrap -Multi-Layered Wrap Application Multi-Layer Comp - Left ($) Treatment Response Vital Signs Temperature (97.8 F-99.1 F) Temperature Source Pulse Rate (60-100) Pulse Location Blood Pressure (90/60-120/80) Blood Pressure Mean (mm Hg) Pain Scale: 0-10 Numeric Is Patient Pain Free? Yes WC - Visit Discharge Discharge Condition Stable Ambulatory Status Ambulatory Transportation Private Auto Medication Reconcilliation completed & Yes provided to patient/care provider Clinical Summary of Care Provided Yes Assessment/Plan Assessment/Plan (1) Ulcer of left lower extremity with fat layer exposed: CODE(S): L97.922 - Non-pressure chronic ulcer of unspecified part of left lower leg with fat layer exposed (2) Delayed wound healing: CODE(S): T14.8XXD - Other injury of unspecified body region, subsequent encounter (3) Osteomyelitis: CODE(S): M86.9 - Osteomyelitis, unspecified (4) Venous insufficiency (chronic) (peripheral): CODE(S): I87.2 - Venous insufficiency (chronic) (peripheral) (5) Localized edema: CODE(S): R60.0 - Localized edema (6) Rheumatoid arthritis: CODE(S): M06.9 - Rheumatoid arthritis, unspecified (7) Tobacco use disorder: CODE(S): F17.200 - Nicotine dependence, unspecified, uncomplicated (8) Malnutrition: CODE(S): E46 - Unspecified protein-calorie malnutrition (9) Body mass index [BMI] 19.9 or less, adult: CODE(S): Z68.1 - Body mass index [BMI] 19.9 or less, adult PLAN: Plan I reviewed and discussed her case today. Debridement was performed today as noted in the clinical panel to the ulcer site. The following work up and care recommendations were made: Dressing: To change daily with hydrogel. Wash: Antibacterial soap and water. Avoid soaking. To avoid bathtub bathing where her leg including her wound are submerged. I recommend she uses traditional antibacterial soap and water. Tissue growth optimization: If she does have a documented history of osteomyelitis that is chronic she may be a candidate for hyperbaric oxygen therapy. 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 However, I would like to confirm if this is a relative or firm contraindication. She will consider this treatment again. Her last seizure was noted to be about three years ago. Offload: To avoid direct pressure on the site. Vascular / edema: She has nonpalpable pulses and lack of hair. She also has questionable claudication presentation. I recommend noninvasive vascular studies including MARI, segmental thigh and leg pressure, PVR, and systolic toe pressure. The results were reviewed and she has left biphasic waveforms, left MARI of 1.2, and left toe brachial index is 0.72. The segmental thigh and leg pressures were not obtained. There is not a difference of over 30 mmHg when compared to arm pressures. She is also advised to discontinue all tobacco products to optimize healing and limb salvage opportunities. Due to ongoing la ck of healing, a vascular referral was provided for Dr. Rdz. She started intervention and was advised to follow-up with her scheduled ultrasound as advised. Medical records have been reviewed and additional interventions not currently planned. Her treatment is mainly for venous insufficiency at this time. There is mild to moderate edema. I recommend 3M 2L multilayer compression dressings. This was applied today and she was advised to keep this intact until next week. Infection: She does not have kevin purulent drainage today or erythema, streaking, or odor. To monitor for this. Culture was previously updated for mrsa pcr, aerobic and anearobic. She has a noted h/o MRSA growth. I recommend considering IV antibiotics due to her continued MRSA infections. She is also under the management of infectious disease specialist and continues IV antibiotics and has a PICC line in place. She is currently on a 6-week course of linezolid and this has been completed. no infection signs noted today. Today, I am concerned about her exposed bone and significant increase in ulcer size and I ordered an x-ray to rule out any underlying bone pathology. She obtained the 2 leg x-rays on which did not demonstrate any osseous destruction, foreign body or soft tissue emphysema or periosteal reaction. Pain: Controlled Host factors: She has significant delays in healing. We discussed tobacco cessation and how this impairs healing. She has some muscle wasting and delayed healing and nutritional supplementation would also be beneficial. She is underweight and is not consuming adequate micro or macronutrients. A prescription for Jay and Ensure with 30 g of protein per shake were provided today. I also recommended a nutrition referral to optimize healing; scheduling in process. She has rheumatoid arthritis and understands this may also delay her healing. She was urged to reduce smoking; discussed at length again today. Her outcome prognosis is poor with continued tobacco use. Labs: Updated labs were recently updated including CBC, CMP, ESR, C-reactive protein, and hemoglobin A1c. No leukocytosis was noted. ESR 24. CRP 23.5. No gross abnormalities with CMP. A1c of 5.5%. Imaging: Left leg xrays were recently updated (02-20-22) - there is a healed fracture in the mid third of the left tibia but apparently there is periosteal reaction and what appears to be chronic osteomyelitis with possibility of sinus tract. We discussed her rheumatoid arthritis significant medical history which may be contributing to delayed healing however I suspect her malnutrition and persistent smoking habits are interfering with her progress. F/u with commissioning editor as advised; she initiated this process. Jay samples were provided. He is significantly underweight and has full body muscle tone loss and ongoing issues with healing. I do not think she is at risk for overweight status and we discussed her primary focus needs to be on obtaining the appropriate nutrients to allow healing. I answered all the patient's questions. To return to the wound healing center in 1 week for nursing dressing change in 2 weeks for physician evaluation, or call sooner if the patient has any questions or concerns. Compliance was discussed and this is required for healing progression. Note: [employer] speech recognition market president software was used to create portions of this document. Sound-alike and misspelled words, as well as other market president errors may be contained in the documentation.
[2022-03-25 09:59] VITALS: BMI 20.5
[2022-03-27 09:32] VITALS: BMI 20.5
--- NOTE | 2022-03-27 10:16 | PCM.WC.PN ---
History of Present Illness Date of Service: 03/27/22 Chief Complaint: left leg ulcer History of Wound: This 61-year-old female was seen today for left leg ulcer. She denies fever, chill, nausea, vomiting, diarrhea. She tries to wear compression garment. She denies leg pain, redness, or odor. She denies trauma or recent increase in swelling. She had venous intervention with vascular specialist, Dr. Rdz. She has been wearing her compression stocking as advised anytime she is not wearing a 3M 2L compression dressing. She continues to smoke and has vascular disease. She also has rheumatoid arthritis. She went for a prn occupational therapist referral and is considering making some changes to her dietary intake. She was given a prescription for Jay and Glucerna previously. She has increased swelling and drainage and discomfort to the wound today is concerned it is getting infected. Another ulcer proximal reopened. Progress of Wound: Worse status Objective Data Objective Data Vital Signs: Vital Signs Temp Pulse Resp BP O2 Del Method 97.9 F 90 16 146/76 H Room Air 03/20/22 09:14 03/20/22 09:14 03/20/22 09:14 03/20/22 09:14 03/27/22 09:32 Oxygen Delivery Method Room Air Weight: 43.091 kg Body Mass Index (BMI) 20.5 Lab / Micro Data Result Diagrams: 03/27/22 10:18 03/27/22 10:18 Physical Exam Extremity Extremity Narrative: WouldNo calf tenderness (negative Winston and Avendano sign, no warmth or calor) Diminished pulses Muscle wasting noted some wound cultures Adjacent skin is atrophic and hairless Prior skin grafting surgical intervention site noted with cicatrix Noted leg edema, increased today There is increased mima ulcer inflammation with seropurulent drainage no drainage noted after the excisional subcutaneous debridement. There is no additional bogginess or fluctuance. There is no odor. There is adjacent ulcer edema without distinct streaking or erythema or necrosis. The new ulcer eruption site is also noted and is a sign of deterioration Neuro Neuro Narrative: lack of normal epicritic sensation via light touch is consistent with neuropathy status Debridement Note Debridement Note Wound debrided: left leg Wound Grade/Stage: Type of Debridement: Excisional debridement Anesthesia Used: 4% Lidocaine Solution Depth: in the subcutaneous layer Percentage of wound debrided: 40 Instrument Used: 3mm curette Tissue Removed: fibrous, devitalized subcutaneous, biofilm, slough Severity: Fat Layer Exposed Amount of bleeding with debridement: Mild Bleeding Controlled with: Pressure Patient tolerated procedure: Patient tolerated procedure well Post-Debridement Measurements and Additional Note: Post-Debridement Measurements/Treatment - Nurse 1 - General Ulcer Assessment Start: 03/08/22 08:42 Freq: Status: Active Protocol: ELENA Activity Type Activity Date Activity User E-sign Co-sign Detail Recorded Client Recorded Date Recorded By Document 03/08/22 08:42 ML [id number] 03/08/22 08:44 ML Document 03/13/22 09:17 RB [id number] 03/13/22 09:27 RB Document 03/18/22 10:54 AK [id number] 03/18/22 10:58 AK Document 03/20/22 09:14 BMF [id number] 03/20/22 09:24 BMF Document 03/25/22 09:59 AK [id number] 03/25/22 10:02 AK Document 03/27/22 09:32 BMF [id number] 03/27/22 09:41 BMF 03/08/22 03/13/22 03/18/22 08:42 09:17 10:54 - Today's Visit Information Type of service Nurse-only Follow-up Visit Follow-up Visit Visit (Physician/ANNUAL GIVING DIRECTOR (Physician/ANNUAL GIVING DIRECTOR ) ) Arrival Mode Ambulatory Ambulatory Ambulatory Transfer Assistance None None Patient Identification Verified (Name & Yes Yes Yes ) Patient Requires Transmission-Based No No No Precautions Safety Precautions NA NA Height and Weight Body Mass Index (BMI) 20.5 20.5 20.5 BMI Classification Normal Normal Normal Vital Signs Temperature (97.8 F-99.1 F) 97.8 F 97.3 F L 97.9 F Temperature Source Temporal Temporal Temporal Pulse Rate (60-100) 89 89 69 Pulse Location Monitor Monitor Monitor Respiratory Rate (12-18) 18 18 Respiratory rate source Observation Observation Oxygen Delivery Method Room Air Blood Pressure (90/60-120/80) 122/54 H 125/70 H 111/69 Blood Pressure Mean (mm Hg) 76 88 83 Source Monitor Monitor Position Sitting Semi-Fowlers Blood Pressure Location Left Arm Left Arm History Since Last Visit- (Skip if this is Patient's initial visit) Have you changed medications since your No No No last visit? Any new allergies or adverse reactions No No No Had a fall/change in ADL's that may No No No increase risk of falls Signs or symptoms of abuse and/or No No No neglect since last visit Have you been in the hospital since your No No No last visit? Has dressing in place as prescribed Yes Yes Yes Has compression in place as prescribed Yes Yes Yes Has offloadiing in place as prescribed Yes No N/A Experienced any changes in pain level or No No No management Left Footwear Regular Shoe Regular Shoe Right Footwear Regular Shoe Regular Shoe Pain Scale: 0-10 Numeric Is Patient Pain Free? Yes Yes Yes 03/20/22 03/25/22 03/27/22 09:14 09:59 09:32 WC - Today's Visit Information Type of service Follow-up Visit Follow-up Visit Follow-up Visit (Physician/ANNUAL GIVING DIRECTOR (Physician/ANNUAL GIVING DIRECTOR (Physician/ANNUAL GIVING DIRECTOR ) ) ) Arrival Mode Ambulatory Ambulatory Ambulatory Transfer Assistance None None Patient Identification Verified (Name & Yes Yes Yes ) Patient Requires Transmission-Based No No No Precautions Safety Precautions NA Height and Weight Body Mass Index (BMI) 20.5 20.5 20.5 BMI Classification Normal Normal Normal Vital Signs Temperature (97.8 F-99.1 F) 97.9 F Temperature Source Temporal Temporal Pulse Rate (60-100) 90 Pulse Location Monitor Monitor Respiratory Rate (12-18) 16 Respiratory rate source Observation Observation Oxygen Delivery Method Room Air Room Air Blood Pressure (90/60-120/80) 146/76 H Blood Pressure Mean (mm Hg) 99 Source Monitor Monitor Position Sitting Sitting Blood Pressure Location Left Arm History Since Last Visit- (Skip if this is Patient's initial visit) Have you changed medications since your No No last visit? Any new allergies or adverse reactions No No Had a fall/change in ADL's that may No No increase risk of falls Signs or symptoms of abuse and/or No No neglect since last visit Have you been in the hospital since your No No last visit? Has dressing in place as prescribed Yes Yes Has compression in place as prescribed Yes Yes Has offloadiing in place as prescribed N/A N/A Experienced any changes in pain level or No No management Left Footwear Regular Shoe Regular Shoe Regular Shoe Right Footwear Regular Shoe Regular Shoe Regular Shoe Pain Scale: 0-10 Numeric Is Patient Pain Free? Yes Yes Yes WC - Nurse 1 - General Ulcer Measurement Start: 03/08/22 08:42 Freq: Status: Active Protocol: Activity Type Activity Date Activity User E-sign Co-sign Detail Recorded Client Recorded Date Recorded By Document 03/13/22 09:17 RB [id number] 03/13/22 09:27 RB Document 03/20/22 09:14 BM [id number] 03/20/22 09:24 BMF Document 03/27/22 09:32 [facility] [id number] 03/27/22 09:41 BMF 03/13/22 03/20/22 03/27/22 09:17 09:14 09:32 Wound Center Nurse 1 #4 L Yoder Med -Combined with other wound No No No -Current Size (cm) - Length 0.5 0.1 0.2 -Current Size (cm) - Width 0.3 0.1 0.2 -Current Size (cm) - Depth 0.2 0.1 0.2 -Total Square Cm 0.15 0.01 0.04 -Date of Last Picture (Recall this 03/20/22 field) -Photo Taken Yes No -Epithelialization Large 67-100% Small 1-33% -Tunneling No No -Undermining/Tunneling No No -Circular Undermining No No -Exudate Amt Medium None Present -Exudate Type Serosanguineous -Wound Margin Distinct, Distinct, Outline Outline Attached Attached -Granulation Amt Medium (34-66%) None Present (0 %) -Granulation Quality [place] -Slough/Fibrin Yes Yes -Necrosis Amt Small (1-33%) Small (1-33%) -Necrotic Tissue Type Adherent Slough Eschar -Structure Exposed N/A -Texture (Mima-wound Skin Appearance) Assessed, Assessed, Scarring Localized Edema ,Scarring -Moisture (Mima-wound Skin Appearance) Assessed Assessed,Dry/ Scaly -Color (Mima-wound Skin Appearance) Assessed Assessed, Hemosiderin Staining -Temperature (Mima-wound Skin No Abnormality No Abnormality Appearance) (Pt Warm) (Pt Warm) -Tenderness on Palpation (Mima-wound No No Skin Appearance) -Ulcer Cleansing Wound Cleanser Soap and Water Soap and Water -Foul Odor after Cleansing No No No -Anesthetic Used 5% Lidocaine 5% Lidocaine 5% Lidocaine Gel Gel Gel #1- L inferior yoder -Combined with other wound No No No -Current Size (cm) - Length 0.7 0.5 0.3 -Current Size (cm) - Width 0.3 0.3 0.2 -Current Size (cm) - Depth 1 0.4 0.7 -Total Square Cm 0.21 0.15 0.06 -Date of Last Picture (Recall this 03/20/22 field) -Photo Taken Yes No -Epithelialization Small 1-33% None Present -Tunneling No No No -Undermining/Tunneling Yes No No -Undermining/Tunneling Starts (O'clock 1 ) -Undermining/Tunneling Ends (O'clock) 2 -Maximum Distance (cm) 1 -Circular Undermining No No No -Exudate Amt Large Small Small -Exudate Type Serosanguineous Serous Purulent -Wound Margin Distinct, Distinct, Distinct, Outline Outline Outline Attached Attached Attached -Granulation Amt Medium (34-66%) Small (1-33%) Large (67-100%) -Granulation Quality [place] Red Red -Slough/Fibrin Yes Yes Yes -Necrosis Amt Small (1-33%) Medium (34-66%) Small (1-33%) -Necrotic Tissue Type Adherent Slough Adherent Slough Adherent Slough -Structure Exposed N/A -Texture (Mima-wound Skin Appearance) Assessed, Assessed, Assessed, Scarring Scarring Localized Edema ,Scarring -Moisture (Mima-wound Skin Appearance) Assessed Assessed,Dry/ Assessed Scaly -Color (Mima-wound Skin Appearance) Assessed Assessed, Assessed, Hemosiderin Erythema Staining -Temperature (Mima-wound Skin No Abnormality No Abnormality No Abnormality Appearance) (Pt Warm) (Pt Warm) (Pt Warm) -Tenderness on Palpation (Mima-wound No No No Skin Appearance) -Ulcer Cleansing Wound Cleanser Soap and Water Soap and Water -Foul Odor after Cleansing No No No -Anesthetic Used 5% Lidocaine 5% Lidocaine 5% Lidocaine Gel Gel Gel Lower Limb Edema Present Yes Left Calf (cm) 29.5 29.4 29.3 Left Ankle (cm) 19.5 19.7 WC - Nurse 2 - General Ulcer CM Notes Start: 03/08/22 08:42 Freq: Status: Active Protocol: Activity Type Activity Date Activity User E-sign Co-sign Detail Recorded Client Recorded Date Recorded By Document 03/13/22 09:40 PL [id number] 03/13/22 09:41 PL Document 03/20/22 09:34 [id number] 03/20/22 09:36 JF Document 03/27/22 10:14 PL [id number] 03/27/22 10:16 PL 03/13/22 03/20/22 03/27/22 09:40 09:34 10:14 Wound Center Nurse 2 #4 L Yoder Med -Time 09: 09:34 09:49 -Correct Patient Yes Yes Yes -Correct Side, Site, Position Yes Yes Yes -Correct Procedure Yes Yes Yes -Procedure Performed Yes Yes Yes -Type of Procedure Debridement Debridement Debridement -Clinical Debridement Subcutaneous Subcutaneous Subcutaneous -Tissue Removed Subcutaneous Subcutaneous Subcutaneous -Post Debridement (cm) - Length 1.5 0.1 0.2 -Post Debridement (cm) - Width 1.8 0.2 0.2 -Post Debridement (cm) - Depth 0.8 0.1 0.2 -Total Square (Post) (cm) 2.70 0.02 0.04 -Area of Debridement (cm) - Length 1.5 0.1 0.2 -Area of Debridement (cm) - Width 0.8 0.2 0.2 -Total Square (Area) (cm) 1.20 0.02 0.04 -Tunneling Yes No No -Tunneling Position (O'clock) 2 -Tunneling Distance (cm) 1.6 -Undermining/Tunneling No No -Circular Undermining No No -Wound/Ulcer Outcome Not Healed Not Healed Healed- Surgical Closure -Ulcer Cleansing Rinsed/ Rinsed/ Irrigated with Irrigated with Saline Saline -Foul Odor after Cleansing No No No -Bioengineered Tissue No No No -Bleeding Controlled with Pressure Pressure Pressure -Treatment Response Procedure Procedure Procedure Tolerated Well Tolerated Well Tolerated Well -Offloading No -Debridement - Subq, 1st 20sq cm Yes No No #1- L inferior yoder -Time :34 09:49 -Correct Patient Yes Yes -Correct Side, Site, Position Yes Yes -Correct Procedure Yes Yes -Procedure Performed Yes Yes -Type of Procedure Debridement Debridement -Clinical Debridement Subcutaneous Subcutaneous -Tissue Removed Subcutaneous Subcutaneous -Post Debridement (cm) - Length 0.5 0.3 -Post Debridement (cm) - Width 0.3 0.2 -Post Debridement (cm) - Depth 1.6 0.1 -Total Square (Post) (cm) 0.15 0.06 -Area of Debridement (cm) - Length 0.5 0.3 -Area of Debridement (cm) - Width 0.3 0.2 -Total Square (Area) (cm) 0.15 0.06 -Tunneling No No -Undermining/Tunneling No No -Circular Undermining No No -Wound/Ulcer Outcome Not Healed Not Healed -Ulcer Cleansing Rinsed/ Rinsed/ Irrigated with Irrigated with Saline Saline -Foul Odor after Cleansing No No -Bioengineered Tissue No No -Bleeding Controlled with Pressure Pressure -Treatment Response Procedure Procedure Tolerated Well Tolerated Well -Offloading No -Debridement - Subq, 1st 20sq cm Yes Yes Pain Scale: 0-10 Numeric Is Patient Pain Free? Yes Yes Yes WC - Nurse 3 - General Ulcer D/C NN Start: 03/08/22 08:42 Freq: Status: Active Protocol: Activity Type Activity Date Activity User E-sign Co-sign Detail Recorded Client Recorded Date Recorded By Document 03/08/22 07:20 PL [id number] 03/12/22 07:20 PL Document 03/13/22 09:54 RB [id number] 03/13/22 09:56 RB Document 03/18/22 10:54 AK [id number] 03/18/22 10:58 AK Edit Result 03/18/22 10:54 AK (1) [id number] 03/19/22 16:46 PL Document 03/20/22 09:47 JF [id number] 03/20/22 09:48 JF Document 03/25/22 09:59 AK [id number] 03/25/22 10:02 AK Document 03/27/22 10:07 RB [id number] 03/27/22 10:09 RB (1) Left - Multi-Layered Wrap Application => Multi-Layer Comp - => Left ($) 03/08/22 03/13/22 03/18/22 07:20 09:54 10:54 Wound Care Nurse 3 #4 L Yoder Med -Ulcer Cleansing Wound Cleanser Rinsed/ Irrigated with Saline -Foul Odor after Cleansing No -Negative Pressure Wound Therapy N/A -Primary Dressing Applied Aquacel AG 2x2, Aquacel AG 2x2, Optilok 6.5x10 Optilok 6.5x10 -Other Dressing -Primary Dressing Covered/Secured with -Aquacel AG 2x2 1 1 -Optilok 6.5x10 1 1 #1- L inferior yoder -Ulcer Cleansing Rinsed/ Irrigated with Saline -Foul Odor after Cleansing No -Negative Pressure Wound Therapy N/A -Primary Dressing Applied Aquacel AG 2x2 -Other Dressing aquacel ag and super absorber -Primary Dressing Covered/Secured with -Aquacel AG 2x2 0 -Optilok 6.5x10 Left -Lotion applied to leg before compression wrap -Multi-Layered Wrap Application Multi-Layer Multi-Layer Multi-Layer Comp - Left ($) Comp - Left ($) Comp - Left ($) -Tubular Bandage -Size of Tubigrip Used -Size C ($) Treatment Response Procedure Tolerated Well Vital Signs Temperature (97.8 F-99.1 F) 97.9 F Temperature Source Temporal Pulse Rate (60-100) 69 Pulse Location Monitor Blood Pressure (90/60-120/80) 111/69 Blood Pressure Mean (mm Hg) 83 Pain Scale: 0-10 Numeric Is Patient Pain Free? Yes Yes Yes Teaching: Wound Center Compression Wraps & Stockings -Person Taught -Teaching Method -Response to teaching Dressing Your Wound -Person Taught -Teaching Method -Response to teaching WC - Visit Discharge Discharge Condition Stable Stable Ambulatory Status Ambulatory Transportation Private Auto Private Auto Medication Reconcilliation completed & No Yes provided to patient/care provider Clinical Summary of Care Provided Yes Yes 03/20/22 03/25/22 03/27/22 09:47 09:59 10:07 Wound Care Nurse 3 #4 L Yoder Med -Ulcer Cleansing Rinsed/ Soap and Water Irrigated with Saline -Foul Odor after Cleansing No No -Negative Pressure Wound Therapy N/A -Primary Dressing Applied Aquacel AG 2x2, Aquacel AG 2x2, Optilok 6.5x10 Optilok 6.5x10 -Other Dressing saline moistened gauze -Primary Dressing Covered/Secured with Dry Gauze Dry Gauze,Dry Gauze & Roll Gauze,Secured with Tape -Aquacel AG 2x2 1 1 -Optilok 6.5x10 1 1 #1- L inferior yoder -Ulcer Cleansing Rinsed/ Soap and Water Irrigated with Saline -Foul Odor after Cleansing No No -Negative Pressure Wound Therapy N/A -Primary Dressing Applied Aquacel AG 2x2 Aquacel AG 2x2 -Other Dressing optilock saline moistened gauze -Primary Dressing Covered/Secured with Dry Gauze Dry Gauze,Dry Gauze & Roll Gauze,Secured with Tape -Aquacel AG 2x2 0 0 -Optilok 6.5x10 0 Left -Lotion applied to leg before Yes No compression wrap -Multi-Layered Wrap Application Multi-Layer Multi-Layer Comp - Left ($) Comp - Left ($) -Tubular Bandage Single Layer -Size of Tubigrip Used Size C -Size C ($) 1 Treatment Response Procedure Tolerated Well Vital Signs Temperature (97.8 F-99.1 F) Temperature Source Pulse Rate (60-100) Pulse Location Blood Pressure (90/60-120/80) Blood Pressure Mean (mm Hg) Pain Scale: 0-10 Numeric Is Patient Pain Free? Yes Yes Yes Teaching: Wound Center Compression Wraps & Stockings -Person Taught Patient -Teaching Method Discussion, Demonstration -Response to teaching Return demonstration, Reinforcement needed Dressing Your Wound -Person Taught Patient -Teaching Method Discussion, Demonstration -Response to teaching Verbalize understanding WC - Visit Discharge Discharge Condition Stable Stable Stable Ambulatory Status Ambulatory Ambulatory Ambulatory Transportation Private Auto Private Auto Medication Reconcilliation completed & Yes Yes No provided to patient/care provider Clinical Summary of Care Provided Yes Yes Yes Assessment/Plan Assessment/Plan (1) Ulcer of left lower extremity with fat layer exposed: CODE(S): L97.922 - Non-pressure chronic ulcer of unspecified part of left lower leg with fat layer exposed (2) Delayed wound healing: CODE(S): T14.8XXD - Other injury of unspecified body region, subsequent encounter (3) Osteomyelitis: CODE(S): M86.9 - Osteomyelitis, unspecified (4) Venous insufficiency (chronic) (peripheral): CODE(S): I87.2 - Venous insufficiency (chronic) (peripheral) (5) Localized edema: CODE(S): R60.0 - Localized edema (6) Rheumatoid arthritis: CODE(S): M06.9 - Rheumatoid arthritis, unspecified (7) Tobacco use disorder: CODE(S): F17.200 - Nicotine dependence, unspecified, uncomplicated (8) Malnutrition: CODE(S): E46 - Unspecified protein-calorie malnutrition (9) Body mass index [BMI] 19.9 or less, adult: CODE(S): Z68.1 - Body mass index [BMI] 19.9 or less, adult PLAN: Plan I reviewed and discussed her case today. Debridement was performed today as noted in the clinical panel to the ulcer site. Worse status is noted. The following work up and care recommendations were made: Dressing: To change daily with Dakin wet-to-dry packing. A prescription for Dakin's was provided today. Wash: Antibacterial soap and water. Avoid soaking. To avoid bathtub bathing where her leg including her wound are submerged. I recommend she uses traditional antibacterial soap and water. Tissue growth optimization: If she does have a documented history of osteomyelitis that is chronic she may be a candidate for hyperbaric oxygen therapy. 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 However, I would like to confirm if this is a relative or firm contraindication. She will consider this treatment again. Her last seizure was noted to be about three years ago. She is apprehensive about this at this time and tentatively does not want to proceed. Offload: To avoid direct pressure on the site. Vascular / edema: She has nonpalpable pulses and lack of hair. She also has questionable claudication presentation. I recommend noninvasive vascular studies including MARI, segmental thigh and leg pressure, PVR, and systolic toe pressure. The results were reviewed and she has left biphasic waveforms, left MARI of 1.2, and left toe brachial index is 0.72. The segmental thigh and leg pressures were not obtained. There is not a difference of over 30 mmHg when compared to arm pressures. She is also advised to discontinue all tobacco products to optimize healing and limb salvage opportunities. Due to ongoing lack of healing, a vascular referral was provided for Dr. Rdz. She started intervention and was advised to follow-up with her scheduled ultrasound as advised. Medical records have been reviewed and additional interventions not currently planned. Her treatment is mainly for venous insufficiency at this time. There is mild to moderate edema. I recommend Tubigrip compression dressings. This was applied today and she was advised to keep this intact until next week. Infection: Worse status as noted I recommend additional work-up. Cultures for aerobic, anaerobic, MRSA PCR were obtained today. I recommended starting her on a course of oral antibiotics while we wait for cultures to develop however is noted she has had significant intolerances to multiple medications including penicillins and doxycycline. Linezolid is also known to interact with some of her other medications and she refuses PICC line consideration at this time. Therefore I recommended we address this with topical Dakin's and a referral to infectious disease will be implemented again. To go to ER if her condition progresses with systemic involvement or worsening local appearance. Pain: Controlled Host factors: She has significant delays in healing. We discussed tobacco cessation and how this impairs healing. She has some muscle wasting and delayed healing and nutritional supplementation would also be beneficial. She is underweight and is not consuming adequate micro or macronutrients. A prescription for Jay and Ensure with 30 g of protein per shake were provided today. I also recommended a nutrition referral to optimize healing; scheduling in process. She has rheumatoid arthritis and understands this may also delay her healing. She was urged to reduce smoking; discussed at length again today. Her outcome prognosis is poor with continued tobacco use. Labs: Updated CBC, CMP, ESR, C-reactive protein labs were ordered. Imaging: Left leg xrays were recently updated (02-20-22) - there is a healed fracture in the mid third of the left tibia but apparently there is periosteal reaction and what appears to be chronic osteomyelitis with possibility of sinus tract. We discussed her rheumatoid arthritis significant medical history which may be contributing to delayed healing however I suspect her malnutrition and persistent smoking habits are interfering with her progress. F/u with prn occupational therapist as advised; she initiated this process. Jay samples were provided. He is significantly underweight and has full body muscle tone loss and ongoing issues with healing. I do not think she is at risk for overweight status and we discussed her primary focus needs to be on obtaining the appropriate nutrients to allow healing. I answered all the patient's questions. To return to the wound healing center in 1 week for nursing dressing change in 2 weeks for physician evaluation, or call sooner if the patient has any questions or concerns. Note: [employer] speech recognition freight rate analyst software was used to create portions of this document. Sound-alike and misspelled words, as well as other freight rate analyst errors may be contained in the documentation. The medical decision making level is moderate. There is noted moderate risk of morbidity after considering this treatment plan and diagnostic data. Considerations were given to prescription management, decisions regarding surgical options, or social determinants of health. The medical decision making level is moderate based on data including at least three of the following: review of prior external notes, review of a test, ordering a test, assessment requiring an independent historian.
[2022-03-27 10:39] LABS: Erythrocyte Sedimentation Rate 4 mm/hr (0-30)
[2022-03-27 10:42] LABS: Absolute Lymphocyte Count 1.49 X10^3/uL (0.83-4.51); Absolute Neutrophil Count 4.6 X10^3/uL (2.0-7.7); Basophil# 0.02 X10^3/uL; Basophil% 0.3 % (0-1); Eosinophil# 0.07 X10^3/uL; Hematocrit 40.4 % (37-47); Lymphocyte # 1.49 X10^3/ul (0.83-4.51); Lymphocyte % 21.7 % (19-41); Mean Corp Hgb Conc 32.2 g/dL (32-36); Mean Corpuscular Hgb 29.5 pg (27.0-32.0); Mean Corpuscular Volume 91.6 fL (81-99); Monocyte# 0.65 X10^3/uL; Monocyte% 9.5 % (0-10); NRBC Flagged by Analyzer 0 % (0-5); Neutrophil # 4.61 X10^3/uL (2.7-7.7); Neutrophil % 67.2 % (47-70); Platelet Count 209 K/mm3 (150-450); RBC Distribution Width CV 13.3 % (11.6-14.6); RBC Distribution Width SD 44.7 fl (35.1-43.9); Red Blood Count 4.41 M/mm3 (4.2-5.4); White Blood Count 6.9 K/mm3 (4.4-11.0)
[2022-03-27 11:04] LABS: AST(SGOT) 22 U/L (15-37); Alanine Aminotransfer ALT/SGPT 23 U/L (13-56); Albumin, Serum 3.7 g/dL (3.2-5.0); Alkaline Phosphatase 121 U/L (45-117); Anion Gap 5 (5-15); BUN 16 mg/dL (7-18); BUN/Creat Ratio 25.3 RATIO (10-20); Calcium,Total 9.5 mg/dL (8.5-10.1); Chloride 105 mmol/L (98-107); Creatinine, Serum 0.63 mg/dL (0.55-1.02); EST Glomerular Filtration Rate 102 mL/min (>60); Est Glom Filt Rate - Afr Amer 123 mL/min (>60); Estimated Creatinine Clearance 63.79 ml/min; Globulin 3.8 g/dL (2.2-4.2); Glucose 109 mg/dL (74-106); Potassium 4.3 mmol/L (3.5-5.1); Protein, Total 7.5 g/dL (6.4-8.2); Sodium Level 140 mmol/L (136-145)
[2022-03-27 15:23] LABS: M R Staph aureus DNA By PCR POSITIVE (Negative); Probe Check PASS; Staph aureus DNA By PCR POSITIVE (Negative)
[2022-04-03 13:25] VITALS: BP 123/67; PULSE 86; RESP 18; TEMP 36.3; BMI 20.5
--- NOTE | 2022-04-03 13:53 | PN.PCM_ITS ---
History of Present Illness Date of Service: 04/03/22 Chief Complaint: left leg ulcer History of Wound: This 61-year-old female was seen today for left leg ulcer. She denies fever, chill, nausea, vomiting, diarrhea. She tries to wear compression garment. She denies leg pain, redness, or odor. She denies trauma or recent increase in swelling. She had venous intervention with vascular specialist, Dr. Rdz. She has been wearing her compression stocking as advised anytime she is not wearing a 3M 2L compression dressing. She continues to smoke and has vascular disease. She also has rheumatoid arthritis. She went for a continuous improvement facilitator referral and is considering making some changes to her di etary intake. She was given a prescription for Jay and Glucerna previously. She has not been taking the supplements as advised. She has increased swelling and drainage and discomfort to the wound today is concerned it is getting infected. Another ulcer proximal reopened last week. She did not wash for change dressing with taking this yet. A culture was obtained and she obtained labs. She like to go over these. She has not started antibiotics due to lack of bacterial growth so far. She has an infectious disease updated referral scheduled for later today. Progress of Wound: Improved Objective Data Objective Data Vital Signs: Vital Signs Temp Pulse Resp BP O2 Del Method 97.3 F L 86 18 123/67 H Room Air 04/03/22 13:25 04/03/22 13:25 04/03/22 13:25 04/03/22 13:25 03/27/22 09:32 Oxygen Delivery Method Room Air Weight: 43.091 kg Body Mass Index (BMI) 20.5 Lab / Micro Data Result Diagrams: 03/27/22 10:18 03/27/22 10:18 Micro: Microbiology 03/27/22 09:50 Wound Abcess - Leg, Left Gram Stain - Final 03/27/22 09:50 Wound Abcess - Leg, Left Wound Culture - Final No growth aerobically. 03/27/22 09:50 Wound Abcess - Leg, Left Anaerobic Culture - Final No anaerobic bacteria isolated. Physical Exam Extremity Extremity Narrative: No calf tenderness (negative Winston and Avendano sign, no warmth or calor) Diminished pulses Muscle wasting noted some wound cultures Adjacent skin is atrophic and hairless Prior skin grafting surgical intervention site noted with cicatrix Noted leg edema, increased today There is decreased mima ulcer inflammation with seropurulent drainage no drainage noted after the excisional subcutaneous debridement. There is no additional bogginess or fluctuance. There is no odor. There is adjacent ulcer resolved edema without distinct streaking or erythema or necrosis. Neuro Neuro Narrative: lack of normal epicritic sensation via light touch is consistent with neuropathy status Debridement Note Debridement Note Wound debrided: left leg Wound Grade/Stage: Type of Debridement: Excisional debridement Anesthesia Used: 4% Lidocaine Solution Depth: in the subcutaneous layer Percentage of wound debrided: 40 Instrument Used: 3mm curette Tissue Removed: fibrous, devitalized subcutaneous, biofilm, slough Severity: Fat Layer Exposed Amount of bleeding with debridement: Mild Bleeding Controlled with: Pressure Patient tolerated procedure: Patient tolerated procedure well Post-Debridement Measurements and Additional Note: Post-Debridement Measurements/Treatment - Nurse 1 - General Ulcer Assessment Start: 03/08/22 08:42 Freq: Status: Active Protocol: ELENA Activity Type Activity Date Activity User E-sign Co-sign Detail Recorded Client Recorded Date Recorded By Document 03/08/22 08:42 ML [id number] 03/08/22 08:44 ML Document 03/13/22 09:17 RB [id number] 03/13/22 09:27 RB Document 03/18/22 10:54 MN [id number] 03/18/22 10:58 AK Document 03/20/22 09:14 [facility] [id number] 03/20/22 09:24 [facility] Document 03/25/22 09:59 MN [id number] 03/25/22 10:02 MN Document 03/27/22 09:32 [facility] [id number] 03/27/22 09:41 [facility] Document 04/03/22 13:25 RB [id number] 04/03/22 13:36 RB 03/08/22 03/13/22 03/18/22 08:42 09:17 10:54 - Today's Visit Information Type of service Nurse-only Follow-up Visit Follow-up Visit Visit (Physician/LOAN SERVICES PROFESSIONAL (Physician/LOAN SERVICES PROFESSIONAL ) ) Arrival Mode Ambulatory Ambulatory Ambulatory Transfer Assistance None None Patient Identification Verified (Name & Yes Yes Yes ) Patient Requires Transmission-Based No No No Precautions Safety Precautions NA NA Height and Weight Body Mass Index (BMI) 20.5 20.5 20.5 BMI Classification Normal Normal Normal Vital Signs Temperature (97.8 F-99.1 F) 97.8 F 97.3 F L 97.9 F Temperature Source Temporal Temporal Temporal Pulse Rate (60-100) 89 89 69 Pulse Location Monitor Monitor Monitor Respiratory Rate (12-18) 18 18 Respiratory rate source Observation Observation Oxygen Delivery Method Room Air Blood Pressure (90/60-120/80) 122/54 H 125/70 H 111/69 Blood Pressure Mean (mm Hg) 76 88 83 Source Monitor Monitor Position Sitting Semi-Fowlers Blood Pressure Location Left Arm Left Arm History Since Last Visit- (Skip if this is Patient's initial visit) Have you changed medications since your No No No last visit? Any new allergies or adverse reactions No No No Had a fall/change in ADL's that may No No No increase risk of falls Signs or symptoms of abuse and/or No No No neglect since last visit Have you been in the hospital since your No No No last visit? Has dressing in place as prescribed Yes Yes Yes Has compression in place as prescribed Yes Yes Yes Has offloadiing in place as prescribed Yes No N/A Experienced any changes in pain level or No No No management Left Footwear Regular Shoe Regular Shoe Right Footwear Regular Shoe Regular Shoe Pain Scale: 0-10 Numeric Is Patient Pain Free? Yes Yes Yes 03/20/22 03/25/22 03/27/22 09:14 09:59 09:32 WC - Today's Visit Information Type of service Follow-up Visit Follow-up Visit Follow-up Visit (Physician/LOAN SERVICES PROFESSIONAL (Physician/LOAN SERVICES PROFESSIONAL (Physician/LOAN SERVICES PROFESSIONAL ) ) ) Arrival Mode Ambulatory Ambulatory Ambulatory Transfer Assistance None None Patient Identification Verified (Name & Yes Yes Yes ) Patient Requires Transmission-Based No No No Precautions Safety Precautions NA Height and Weight Body Mass Index (BMI) 20.5 20.5 20.5 BMI Classification Normal Normal Normal Vital Signs Temperature (97.8 F-99.1 F) 97.9 F Temperature Source Temporal Temporal Pulse Rate (60-100) 90 Pulse Location Monitor Monitor Respiratory Rate (12-18) 16 Respiratory rate source Observation Observation Oxygen Delivery Method Room Air Room Air Blood Pressure (90/60-120/80) 146/76 H Blood Pressure Mean (mm Hg) 99 Source Monitor Monitor Position Sitting Sitting Blood Pressure Location Left Arm History Since Last Visit- (Skip if this is Patient's initial visit) Have you changed medications since your No No last visit? Any new allergies or adverse reactions No No Had a fall/change in ADL's that may No No increase risk of falls Signs or symptoms of abuse and/or No No neglect since last visit Have you been in the hospital since your No No last visit? Has dressing in place as prescribed Yes Yes Has compression in place as prescribed Yes Yes Has offloadiing in place as prescribed N/A N/A Experienced any changes in pain level or No No management Left Footwear Regular Shoe Regular Shoe Regular Shoe Right Footwear Regular Shoe Regular Shoe Regular Shoe Pain Scale: 0-10 Numeric Is Patient Pain Free? Yes Yes Yes 04/03/22 13:25 WC - Today's Visit Information Type of service Follow-up Visit (Physician/LOAN SERVICES PROFESSIONAL ) Arrival Mode Ambulatory Transfer Assistance None Patient Identification Verified (Name & Yes ) Patient Requires Transmission-Based No Precautions Safety Precautions Height and Weight Body Mass Index (BMI) 20.5 BMI Classification Normal Vital Signs Temperature (97.8 F-99.1 F) 97.3 F L Temperature Source Temporal Pulse Rate (60-100) 86 Pulse Location Monitor Respiratory Rate (12-18) 18 Respiratory rate source Observation Oxygen Delivery Method Blood Pressure (90/60-120/80) 123/67 H Blood Pressure Mean (mm Hg) 85 Source Monitor Position Semi-Fowlers Blood Pressure Location Left Arm History Since Last Visit- (Skip if this is Patient's initial visit) Have you changed medications since your No last visit? Any new allergies or adverse reactions No Had a fall/change in ADL's that may No increase risk of falls Signs or symptoms of abuse and/or No neglect since last visit Have you been in the hospital since your No last visit? Has dressing in place as prescribed Yes Has compression in place as prescribed Yes Has offloadiing in place as prescribed No Experienced any changes in pain level or No management Left Footwear Regular Shoe Right Footwear Regular Shoe Pain Scale: 0-10 Numeric Is Patient Pain Free? Yes - Nurse 1 - General Ulcer Measurement Start: 03/08/22 08:42 Freq: Status: Active Protocol: Activity Type Activity Date Activity User E-sign Co-sign Detail Recorded Client Recorded Date Recorded By Document 03/13/22 09:17 RB [id number] 03/13/22 09:27 RB Document 03/20/22 09:14 [facility] [id number] 03/20/22 09:24 [facility] Document 03/27/22 09:32 [facility] [id number] 03/27/22 09:41 [facility] Document 04/03/22 13:25 RB [id number] 04/03/22 13:36 RB 03/13/22 03/20/22 03/27/22 09:17 09:14 09:32 Wound Center Nurse 1 #4 L Yoder Med -Combined with other wound No No No -Current Size (cm) - Length 0.5 0.1 0.2 -Current Size (cm) - Width 0.3 0.1 0.2 -Current Size (cm) - Depth 0.2 0.1 0.2 -Total Square Cm 0.15 0.01 0.04 -Date of Last Picture (Recall this 03/20/22 field) -Photo Taken Yes No -Epithelialization Large 67-100% Small 1-33% -Tunneling No No -Undermining/Tunneling No No -Circular Undermining No No -Exudate Amt Medium None Present -Exudate Type Serosanguineous -Wound Margin Distinct, Distinct, Outline Outline Attached Attached -Granulation Amt Medium (34-66%) None Present (0 %) -Granulation Quality [place] -Slough/Fibrin Yes Yes -Necrosis Amt Small (1-33%) Small (1-33%) -Necrotic Tissue Type Adherent Slough Eschar -Structure Exposed N/A -Texture (Mima-wound Skin Appearance) Assessed, Assessed, Scarring Localized Edema ,Scarring -Moisture (Mima-wound Skin Appearance) Assessed Assessed,Dry/ Scaly -Color (Mima-wound Skin Appearance) Assessed Assessed, Hemosiderin Staining -Temperature (Mima-wound Skin No Abnormality No Abnormality Appearance) (Pt Warm) (Pt Warm) -Tenderness on Palpation (Mima-wound No No Skin Appearance) -Ulcer Cleansing Wound Cleanser Soap and Water Soap and Water -Foul Odor after Cleansing No No No -Anesthetic Used 5% Lidocaine 5% Lidocaine 5% Lidocaine Gel Gel Gel #1- L inferior yoder -Combined with other wound No No No -Current Size (cm) - Length 0.7 0.5 0.3 -Current Size (cm) - Width 0.3 0.3 0.2 -Current Size (cm) - Depth 1 0.4 0.7 -Total Square Cm 0.21 0.15 0.06 -Date of Last Picture (Recall this 03/20/22 field) -Photo Taken Yes No -Epithelialization Small 1-33% None Present -Tunneling No No No -Undermining/Tunneling Yes No No -Undermining/Tunneling Starts (O'clock 1 ) -Undermining/Tunneling Ends (O'clock) 2 -Maximum Distance (cm) 1 -Circular Undermining No No No -Exudate Amt Large Small Small -Exudate Type Serosanguineous Serous Purulent -Wound Margin Distinct, Distinct, Distinct, Outline Outline Outline Attached Attached Attached -Granulation Amt Medium (34-66%) Small (1-33%) Large (67-100%) -Granulation Quality [place] Red Red -Slough/Fibrin Yes Yes Yes -Necrosis Amt Small (1-33%) Medium (34-66%) Small (1-33%) -Necrotic Tissue Type Adherent Slough Adherent Slough Adherent Slough -Structure Exposed N/A -Texture (Mima-wound Skin Appearance) Assessed, Assessed, Assessed, Scarring Scarring Localized Edema ,Scarring -Moisture (Mima-wound Skin Appearance) Assessed Assessed,Dry/ Assessed Scaly -Color (Mima-wound Skin Appearance) Assessed Assessed, Assessed, Hemosiderin Erythema Staining -Temperature (Mima-wound Skin No Abnormality No Abnormality No Abnormality Appearance) (Pt Warm) (Pt Warm) (Pt Warm) -Tenderness on Palpation (Mima-wound No No No Skin Appearance) -Ulcer Cleansing Wound Cleanser Soap and Water Soap and Water -Foul Odor after Cleansing No No No -Anesthetic Used 5% Lidocaine 5% Lidocaine 5% Lidocaine Gel Gel Gel Lower Limb Edema Present Yes Left Calf (cm) 29.5 29.4 29.3 Left Ankle (cm) 19.5 19.7 04/03/22 13:25 Wound Center Nurse 1 #4 L Yoder Med -Combined with other wound No -Current Size (cm) - Length 0.5 -Current Size (cm) - Width 0.4 -Current Size (cm) - Depth 0.2 -Total Square Cm 0.20 -Date of Last Picture (Recall this field) -Photo Taken Yes -Epithelialization -Tunneling No -Undermining/Tunneling No -Circular Undermining No -Exudate Amt Medium -Exudate Type Serosanguineous -Wound Margin Distinct, Outline Attached -Granulation Amt Medium (34-66%) -Granulation Quality [place] -Slough/Fibrin Yes -Necrosis Amt Medium (34-66%) -Necrotic Tissue Type Adherent Slough -Structure Exposed N/A -Texture (Mima-wound Skin Appearance) Assessed, Scarring -Moisture (Mima-wound Skin Appearance) Assessed -Color (Mima-wound Skin Appearance) Assessed -Temperature (Mima-wound Skin No Abnormality Appearance) (Pt Warm) -Tenderness on Palpation (Mima-wound No Skin Appearance) -Ulcer Cleansing Wound Cleanser -Foul Odor after Cleansing No -Anesthetic Used 4% Lidocaine Solution #1- L inferior yoder -Combined with other wound No -Current Size (cm) - Length 0.6 -Current Size (cm) - Width 0.4 -Current Size (cm) - Depth 0.3 -Total Square Cm 0.24 -Date of Last Picture (Recall this field) -Photo Taken Yes -Epithelialization -Tunneling No -Undermining/Tunneling No -Undermining/Tunneling Starts (O'clock ) -Undermining/Tunneling Ends (O'clock) -Maximum Distance (cm) -Circular Undermining No -Exudate Amt Large -Exudate Type Serosanguineous -Wound Margin Distinct, Outline Attached -Granulation Amt Medium (34-66%) -Granulation Quality [place] -Slough/Fibrin Yes -Necrosis Amt Small (1-33%) -Necrotic Tissue Type Adherent Slough -Structure Exposed N/A -Texture (Mima-wound Skin Appearance) Assessed, Scarring -Moisture (Mima-wound Skin Appearance) Assessed -Color (Mima-wound Skin Appearance) Assessed -Temperature (Mima-wound Skin No Abnormality Appearance) (Pt Warm) -Tenderness on Palpation (Mima-wound No Skin Appearance) -Ulcer Cleansing Wound Cleanser -Foul Odor after Cleansing No -Anesthetic Used 4% Lidocaine Solution Lower Limb Edema Present Yes Left Calf (cm) 31 Left Ankle (cm) 20.5 WC - Nurse 2 - General Ulcer CM Notes Start: 03/08/22 08:42 Freq: Status: Active Protocol: Activity Type Activity Date Activity User E-sign Co-sign Detail Recorded Client Recorded Date Recorded By Document 03/13/22 09:40 PL [id number] 03/13/22 09:41 PL Document 03/20/22 09:34 [id number] 03/20/22 09:36 Document 03/27/22 10:14 PL [id number] 03/27/22 10:16 PL Document 04/03/22 13:43 [id number] 04/03/22 13:45 03/13/22 03/20/22 03/27/22 09:40 09:34 10:14 Wound Center Nurse 2 #4 L Yoder Med -Time 09: 09:34 09:49 -Correct Patient Yes Yes Yes -Correct Side, Site, Position Yes Yes Yes -Correct Procedure Yes Yes Yes -Procedure Performed Yes Yes Yes -Type of Procedure Debridement Debridement Debridement -Clinical Debridement Subcutaneous Subcutaneous Subcutaneous -Tissue Removed Subcutaneous Subcutaneous Subcutaneous -Post Debridement (cm) - Length 1.5 0.1 0.2 -Post Debridement (cm) - Width 1.8 0.2 0.2 -Post Debridement (cm) - Depth 0.8 0.1 0.2 -Total Square (Post) (cm) 2.70 0.02 0.04 -Area of Debridement (cm) - Length 1.5 0.1 0.2 -Area of Debridement (cm) - Width 0.8 0.2 0.2 -Total Square (Area) (cm) 1.20 0.02 0.04 -Tunneling Yes No No -Tunneling Position (O'clock) 2 -Tunneling Distance (cm) 1.6 -Undermining/Tunneling No No -Circular Undermining No No -Wound/Ulcer Outcome Not Healed Not Healed Healed- Surgical Closure -Ulcer Cleansing Rinsed/ Rinsed/ Irrigated with Irrigated with Saline Saline -Foul Odor after Cleansing No No No -Bioengineered Tissue No No No -Bleeding Controlled with Pressure Pressure Pressure -Treatment Response Procedure Procedure Procedure Tolerated Well Tolerated Well Tolerated Well -Offloading No -Debridement - Subq, 1st 20sq cm Yes No No #1- L inferior yoder -Time 09:34 09:49 -Correct Patient Yes Yes -Correct Side, Site, Position Yes Yes -Correct Procedure Yes Yes -Procedure Performed Yes Yes -Type of Procedure Debridement Debridement -Clinical Debridement Subcutaneous Subcutaneous -Tissue Removed Subcutaneous Subcutaneous -Post Debridement (cm) - Length 0.5 0.3 -Post Debridement (cm) - Width 0.3 0.2 -Post Debridement (cm) - Depth 1.6 0.1 -Total Square (Post) (cm) 0.15 0.06 -Area of Debridement (cm) - Length 0.5 0.3 -Area of Debridement (cm) - Width 0.3 0.2 -Total Square (Area) (cm) 0.15 0.06 -Tunneling No No -Undermining/Tunneling No No -Circular Undermining No No -Wound/Ulcer Outcome Not Healed Not Healed -Ulcer Cleansing Rinsed/ Rinsed/ Irrigated with Irrigated with Saline Saline -Foul Odor after Cleansing No No -Bioengineered Tissue No No -Bleeding Controlled with Pressure Pressure -Treatment Response Procedure Procedure Tolerated Well Tolerated Well -Offloading No -Debridement - Subq, 1st 20sq cm Yes Yes Pain Scale: 0-10 Numeric Is Patient Pain Free? Yes Yes Yes 04/03/22 13:43 Wound Center Nurse 2 #4 L Yoder Med -Time 13:43 -Correct Patient Yes -Correct Side, Site, Position Yes -Correct Procedure Yes -Procedure Performed Yes -Type of Procedure Debridement -Clinical Debridement Subcutaneous -Tissue Removed Subcutaneous -Post Debridement (cm) - Length 0.5 -Post Debridement (cm) - Width 0.3 -Post Debridement (cm) - Depth 0.2 -Total Square (Post) (cm) 0.15 -Area of Debridement (cm) - Length 0.5 -Area of Debridement (cm) - Width 0.3 -Total Square (Area) (cm) 0.15 -Tunneling No -Tunneling Position (O'clock) -Tunneling Distance (cm) -Undermining/Tunneling No -Circular Undermining No -Wound/Ulcer Outcome Not Healed -Ulcer Cleansing Rinsed/ Irrigated with Saline -Foul Odor after Cleansing No -Bioengineered Tissue No -Bleeding Controlled with Pressure -Treatment Response Procedure Tolerated Well -Offloading No -Debridement - Subq, 1st 20sq cm No #1- L inferior yoder -Time 13:43 -Correct Patient Yes -Correct Side, Site, Position Yes -Correct Procedure Yes -Procedure Performed Yes -Type of Procedure Debridement -Clinical Debridement Subcutaneous -Tissue Removed Subcutaneous -Post Debridement (cm) - Length 0.5 -Post Debridement (cm) - Width 0.2 -Post Debridement (cm) - Depth 0.1 -Total Square (Post) (cm) 0.10 -Area of Debridement (cm) - Length 0.5 -Area of Debridement (cm) - Width 0.2 -Total Square (Area) (cm) 0.10 -Tunneling No -Undermining/Tunneling No -Circular Undermining No -Wound/Ulcer Outcome Not Healed -Ulcer Cleansing Rinsed/ Irrigated with Saline -Foul Odor after Cleansing No -Bioengineered Tissue No -Bleeding Controlled with Pressure -Treatment Response Procedure Tolerated Well -Offloading No -Debridement - Subq, 1st 20sq cm Yes Pain Scale: 0-10 Numeric Is Patient Pain Free? Yes WC - Nurse 3 - General Ulcer D/C NN Start: 03/08/22 08:42 Freq: Status: Active Protocol: Activity Type Activity Date Activity User E-sign Co-sign Detail Recorded Client Recorded Date Recorded By Document 03/08/22 07:20 PL [id number] 03/12/22 07:20 PL Document 03/13/22 09:54 RB [id number] 03/13/22 09:56 RB Document 03/18/22 10:54 AK [id number] 03/18/22 10:58 AK Edit Result 03/18/22 10:54 AK (1) [id number] 03/19/22 16:46 PL Document 03/20/22 09:47 JF [id number] 03/20/22 09:48 JF Document 03/25/22 09:59 AK [id number] 03/25/22 10:02 AK Document 03/27/22 10:07 RB [id number] 03/27/22 10:09 RB (1) Left - Multi-Layered Wrap Application => Multi-Layer Comp - => Left ($) 03/08/22 03/13/22 03/18/22 07:20 09:54 10:54 Wound Care Nurse 3 #4 L Yoder Med -Ulcer Cleansing Wound Cleanser Rinsed/ Irrigated with Saline -Foul Odor after Cleansing No -Negative Pressure Wound Therapy N/A -Primary Dressing Applied Aquacel AG 2x2, Aquacel AG 2x2, Optilok 6.5x10 Optilok 6.5x10 -Other Dressing -Primary Dressing Covered/Secured with -Aquacel AG 2x2 1 1 -Optilok 6.5x10 1 1 #1- L inferior yoder -Ulcer Cleansing Rinsed/ Irrigated with Saline -Foul Odor after Cleansing No -Negative Pressure Wound Therapy N/A -Primary Dressing Applied Aquacel AG 2x2 -Other Dressing aquacel ag and super absorber -Primary Dressing Covered/Secured with -Aquacel AG 2x2 0 -Optilok 6.5x10 Left -Lotion applied to leg before compression wrap -Multi-Layered Wrap Application Multi-Layer Multi-Layer Multi-Layer Comp - Left ($) Comp - Left ($) Comp - Left ($) -Tubular Bandage -Size of Tubigrip Used -Size C ($) Treatment Response Procedure Tolerated Well Vital Signs Temperature (97.8 F-99.1 F) 97.9 F Temperature Source Temporal Pulse Rate (60-100) 69 Pulse Location Monitor Blood Pressure (90/60-120/80) 111/69 Blood Pressure Mean (mm Hg) 83 Pain Scale: 0-10 Numeric Is Patient Pain Free? Yes Yes Yes Teaching: Wound Center Compression Wraps & Stockings -Person Taught -Teaching Method -Response to teaching Dressing Your Wound -Person Taught -Teaching Method -Response to teaching WC - Visit Discharge Discharge Condition Stable Stable Ambulatory Status Ambulatory Transportation Private Auto Private Auto Medication Reconcilliation completed & No Yes provided to patient/care provider Clinical Summary of Care Provided Yes Yes 03/20/22 03/25/22 03/27/22 09:47 09:59 10:07 Wound Care Nurse 3 #4 L Yoder Med -Ulcer Cleansing Rinsed/ Soap and Water Irrigated with Saline -Foul Odor after Cleansing No No -Negative Pressure Wound Therapy N/A -Primary Dressing Applied Aquacel AG 2x2, Aquacel AG 2x2, Optilok 6.5x10 Optilok 6.5x10 -Other Dressing saline moistened gauze -Primary Dressing Covered/Secured with Dry Gauze Dry Gauze,Dry Gauze & Roll Gauze,Secured with Tape -Aquacel AG 2x2 1 1 -Optilok 6.5x10 1 1 #1- L inferior yoder -Ulcer Cleansing Rinsed/ Soap and Water Irrigated with Saline -Foul Odor after Cleansing No No -Negative Pressure Wound Therapy N/A -Primary Dressing Applied Aquacel AG 2x2 Aquacel AG 2x2 -Other Dressing optilock saline moistened gauze -Primary Dressing Covered/Secured with Dry Gauze Dry Gauze,Dry Gauze & Roll Gauze,Secured with Tape -Aquacel AG 2x2 0 0 -Optilok 6.5x10 0 Left -Lotion applied to leg before Yes No compression wrap -Multi-Layered Wrap Application Multi-Layer Multi-Layer Comp - Left ($) Comp - Left ($) -Tubular Bandage Single Layer -Size of Tubigrip Used Size C -Size C ($) 1 Treatment Response Procedure Tolerated Well Vital Signs Temperature (97.8 F-99.1 F) Temperature Source Pulse Rate (60-100) Pulse Location Blood Pressure (90/60-120/80) Blood Pressure Mean (mm Hg) Pain Scale: 0-10 Numeric Is Patient Pain Free? Yes Yes Yes Teaching: Wound Center Compression Wraps & Stockings -Person Taught Patient -Teaching Method Discussion, Demonstration -Response to teaching Return demonstration, Reinforcement needed Dressing Your Wound -Person Taught Patient -Teaching Method Discussion, Demonstration -Response to teaching Verbalize understanding WC - Visit Discharge Discharge Condition Stable Stable Stable Ambulatory Status Ambulatory Ambulatory Ambulatory Transportation Private Auto Private Auto Medication Reconcilliation completed & Yes Yes No provided to patient/care provider Clinical Summary of Care Provided Yes Yes Yes Assessment/Plan Assessment/Plan (1) Ulcer of left lower extremity with fat layer exposed: CODE(S): L97.922 - Non-pressure chronic ulcer of unspecified part of left lower leg with fat layer exposed (2) Delayed wound healing: CODE(S): T14.8XXD - Other injury of unspecified body region, subsequent encounter (3) Osteomyelitis: CODE(S): M86.9 - Osteomyelitis, unspecified (4) Venous insufficiency (chronic) (peripheral): CODE(S): I87.2 - Venous insufficiency (chronic) (peripheral) (5) Localized edema: CODE(S): R60.0 - Localized edema (6) Rheumatoid arthritis: CODE(S): M06.9 - Rheumatoid arthritis, unspecified (7) Tobacco use disorder: CODE(S): F17.200 - Nicotine dependence, unspecified, uncomplicated (8) Malnutrition: CODE(S): E46 - Unspecified protein-calorie malnutrition (9) Body mass index [BMI] 19.9 or less, adult: CODE(S): Z68.1 - Body mass index [BMI] 19.9 or less, adult (10) Cellulitis of left lower limb: CODE(S): L03.116 - Cellulitis of left lower limb PLAN: Plan I reviewed and discussed her case today. Debridement was performed today as noted in the clinical panel to the ulcer site. Worse status is noted. The following work up and care recommendations were made: Dressing: To change daily with iodoform packing. A prescription for Dakin's was provided last week and she is not able to get this Wash: Antibacterial soap and water. Avoid soaking. To avoid bathtub bathing where her leg including her wound are submerged. I recommend she uses traditional antibacterial soap and water. Tissue growth optimization: If she does have a documented history of osteo myelitis that is chronic she may be a candidate for hyperbaric oxygen therapy. 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 However, I would like to confirm if this is a relative or firm contraindication. She will consider this treatment again. Her last seizure was noted to be about three years ago. She is apprehensive about this at this time and tentatively does not want to proceed. Offload: To avoid direct pressure on the site. Vascular / edema: She has nonpalpable pulses and lack of hair. She also has questionable claudication presentation. I recommend noninvasive vascular studies including MARI, segmental thigh and leg pressure, PVR, and systolic toe pressure. The results were reviewed and she has left biphasic waveforms, left A BI of 1.2, and left toe brachial index is 0.72. The segmental thigh and leg pressures were not obtained. There is not a difference of over 30 mmHg when compared to arm pressures. She is also advised to discontinue all tobacco products to optimize healing and limb salvage opportunities. Due to ongoing lack of healing, a vascular referral was provided for Dr. Rdz. She started intervention and was advised to follow-up with her scheduled ultrasound as advised. Medical records have been reviewed and additional interventions not currently planned. Her treatment is mainly for venous insufficiency at this time. There is mild to moderate edema. I recommend Tubigrip compression dressings. This was applied today and she was advised to keep this intact until next week. Infection: Cultures were obtained last week and there is still no bacterial growth. She was referred again to infectious disease last week and is still scheduled to see this physician later today. Antibiotic use may still be held given her lack of leukocytosis (WBC 6.9), lack of ESR elevation (4). It is noted she has an elevated CRP of 22 which is nonspecific. Pain: Controlled Host factors: She has significant delays in healing. We discussed tobacco cessation and how this impairs healing. She has some muscle wasting and delayed healing and nutritional supplementation would also be beneficial. She is under weight and is not consuming adequate micro or macronutrients. A prescription for Jay and Ensure with 30 g of protein per shake were provided today. I also recommended a nutrition referral to optimize healing; scheduling in process. She has rheumatoid arthritis and understands this may also delay her healing. She was urged to reduce smoking; discussed at length again today. Her outcome prognosis is poor with continued tobacco use. Labs: Updated CBC, CMP, ESR, C-reactive protein labs were reviewed as noted. Imaging: Left leg xrays were recently updated (02-20-22) - there is a healed fracture in the mid third of the left tibia but apparently there is periosteal reaction and what appears to be chronic osteomyelitis with possibility of sinus tract. We discussed her rheumatoid arthritis significant medical history which may be contributing to delayed healing however I suspect her malnutrition and persistent smoking habits are interfering with her progress. F/u with continuous improvement facilitator as advised; she initiated this process. Jay samples were provided. He is significantly underweight and has full body muscle tone loss and ongoing issues with healing. I do not think she is at risk for overweight status and we discussed her primary focus needs to be on obtaining the appropriate nutrients to allow healing. I answered all the patient's questions. To return to the wound healing center in 1 week for nursing dressing change in 2 weeks for physician evaluation, or call sooner if the patient has any questions or concerns. Note: [employer] speech recognition porter bath software was used to create portions of this document. Sound-alike and misspelled words, as well as other porter bath errors may be contained in the documentation. The medical decision making level is limited based on data including the review of prior external notes, review of a prior test, or ordering a test. The problems addressed require a low medical decision making level which includes two or more minor problems, a stable chronic illness, or an acute uncomplicated illness or injury.
== END 2022-04-07 23:59 | disposition home or self-care (01) ==
LOC: WC 13:30
PROVIDERS: Referring Provider Podiatrist; Visit Provider Podiatrist
DX: L97.922 Non-pressure chronic ulcer of unspecified part of left lower leg with fat layer exposed (principal); E46 Unspecified protein-calorie malnutrition; M06.9 Rheumatoid arthritis, unspecified; M86.9 Osteomyelitis, unspecified; F17.200 Nicotine dependence, unspecified, uncomplicated; R60.0 Localized edema; I87.2 Venous insufficiency (chronic) (peripheral); S90.01XA Contusion of right ankle, initial encounter; T14.8XXD Other injury of unspecified body region, subsequent encounter; Z68.1 Body mass index [BMI] 19.9 or less, adult; L03.116 Cellulitis of left lower limb
CPT/HCPCS: 11042; 29581; 36415; 80053; 85025; 85652; 86140; 87070; 87075; 87205; 87640; 97803

== ENCOUNTER 2022-04-03 15:00 | Outpatient (RCR) | payer MEDICAID, SELFPAY ==
[2022-03-08 00:47] VITALS: BP 131/68; PULSE 77; RESP 18; TEMP 36.7
== END 2022-04-07 23:59 ==
LOC: NS 15:00
PROVIDERS: Referring Provider Podiatrist; Visit Provider Podiatrist
DX: Z71.3 Dietary counseling and surveillance (principal); E46 Unspecified protein-calorie malnutrition; Z68.1 Body mass index [BMI] 19.9 or less, adult; M06.9 Rheumatoid arthritis, unspecified
CPT/HCPCS: 97803

== ENCOUNTER 2022-04-15 20:08 | Emergency (ER) | payer MEDICAID, SELFPAY ==
[2022-04-15 20:10] VITALS: BP 153/80; PULSE 92; RESP 18; TEMP 36.4; O2SAT 100; BMI 20.2
--- NOTE | 2022-04-15 20:20 | RAD_ITS ---
INDICATION: left foot pain and swelling EXAMINATION/TECHNIQUE: X-RAY - LEFT XR Foot Min 3 Views COMPARISON: None. FINDINGS: SOFT TISSUES: No significant soft tissue swelling. No radiopaque foreign body detected. BONES/JOINTS: No acute fracture or subluxation. Normal alignment. Preservation of the joint space(s). Bones are osteopenic. Tiny calcaneal enthesophytes noted. RAD/Foot min 3 Views IMPRESSION: Left foot with no acute findings. Osteopenia with minimal calcaneal spurring. Electronically Signed: Manny Doherty MD at 20:34 EDT ,
--- NOTE | 2022-04-15 22:01 | EDS_ITS ---
HPI History of Present Illness Chief Complaint: Lower Extremity Injury Informant: patient Narrative Narrative: Patient complains of left foot pain that occurred while she was walking in [place]. She states she thought she felt a crack. It has a little bit of s welling. It hurts when she bears weight and is better when she does not. Patient is a chronic healing wound of the left yoder area but this is not new or different. She has gauze and wrapping on that. She sees wound center. She does not want to unwrap that area. [facility] Medical History Anxiety Depression FH: bilateral hip replacements Myocardial infarct Seizures Smoker Ulcer of left yoder limited to breakdown of skin Home Medications alendronate 70 mg tablet 70 mg PO SA BONES 12/22/16 [History Last Taken 06/10/20] ipratropium 20 mcg-albuterol 100 mcg/actuation mist for inhalation (Combivent Respimat) 1 puff inhalation Q4H SOB 12/22/16 [History Last Taken Unknown] lorazepam 0.5 mg tablet 0.5 mg PO BID ANXIETY 12/22/16 [History Last Taken 06/12/20] omeprazole 10 mg capsule,delayed release 40 mg PO QHS GERD 12/22/16 [History Last Taken 06/11/20] phenytoin sodium extended 100 mg capsule 100 mg PO BID@0900,1700 SEIZURES 12/22/16 [History Last Taken 06/12/20] acetaminophen 500 mg tablet 500 mg PO Q6H PRN PRN Pain Or Fever 06/12/20 [History Last Taken Unknown] aclidinium bromide 400 mcg/actuation breath activated powder inhaler 400 mcg IH BID SOB 06/12/20 [History Last Taken 06/12/20] ascorbic acid (vitamin C) 500 mg tablet 500 mg PO DAILY SUPPLEMENT 06/12/20 [History Last Taken 06/12/20] benzonatate 100 mg capsule 100 mg PO DAILY PRN Cough 06/12/20 [History Last Taken Unknown] cyclobenzaprine 10 mg tablet 10 mg PO BID PRN PRN BACK 06/12/20 [History Last Taken Unknown] diclofenac sodium 75 mg tablet,delayed release 75 mg PO BID PRN PRN BACK PAIN 06/12/20 [History Last Taken Unknown] fluticasone propionate 100 mcg/actuation blister powder for inhalation 2 puff inhalation BID COPD 06/12/20 [History Last Taken 06/12/20] folic acid 1 mg tablet 1 mg PO BID SUPPLEMENT 06/12/20 [History Last Taken 06/12/20] loratadine 10 mg tablet 10 mg PO DAILY ALLERGIES 06/12/20 [History Last Taken 06/12/20] paroxetine HCl 20 mg tablet 20 mg PO DAILY DEPRESSION 06/12/20 [History Last Taken 06/12/20] pravastatin 20 mg tablet 20 mg PO QHS CHOLESTEROL 06/12/20 [History Last Taken 06/11/20] cholecalciferol (vitamin D3) 25 mcg (1,000 unit) tablet 5,000 unit PO DAILY 06/15/20 [Rx Last Taken Unknown] Allergy/AdvReac Type Severity Reaction Status Date / Time Penicillins Allergy Severe Shortness Verified 04/15/22 20:12 of breath amoxicillin Allergy Hives Verified 04/15/22 20:12 aspirin AdvReac PT UNSURE Verified 04/15/22 20:12 OF REACTION Surgical History H/O repair of right rotator cuff History of cholecystectomy Social History Smoking Status: Current every day smoker tobacco type: cigarettes ROS ROS ED Constitutional Constitutional ED: Denies chills or fever(s) Respiratory/Chest Respiratory/Chest: Denies dyspnea on exertion Gastrointestinal Gastrointestinal: Denies nausea or vomiting Musculoskeletal Musculoskeletal: Reports arthralgias and other Details: See history of present illness ; Denies back pain, myalgias or neck pain Integumentary Reports rash and other Details: Chronic wound left yoder but healing progressively per patient. She states this is not related to her complaint today. Endocrine Endocrinology: Denies polydipsia or polyuria Hematologic/Lymphatic Hematologic/Lymphatic: Denies easy bleeding, easy bruising or lymphadenopathy Allergic/Immunologic Allergic/Immunologic ED: Denies urticaria EXAM Physical Exam Const Vital Signs: 04/15/22 20:10 Temperature 97.5 F L Temperature Source Temporal Pulse Rate 92 Respiratory Rate 18 Blood Pressure 153/80 H Blood Pressure Mean 104 Pulse Ox 100 Oxygen Delivery Method Room Air Positive well nourished and well developed General Appearance ED: well developed and NAD HEENT atraumatic Resp normal respiratory effort Extremity Extremity Narrative: Patient does have some mild tenderness and swelling at the mid proximal fourth and fifth metatarsal on the left. But there is no erythema or warmth. There is no fluctuance. There is absolutely no indication of infection. No deformity. No distal signs of infection or. Fungal involvement between the toes. Neuro Sensorium / Orientation: alert Psych mental status grossly normal Skin Skin Narrative: Patient does have dressing on her left yoder. But she does not want this removed as it is applied by wound center. There is no drainage. There is no erythema or anything related or near the lower portion or upper portion of this dressing. MDM MDM MDM Narrative Medical decision making narrative: Three-view x-ray of the left foot read by radiology shows no acute process but does show significant osteopenia. This brings up the question of possible stress fracture. Because of her chronic wound on her left yoder patient was not walking for some period of time. She has been increasing her activity over the last year though. She felt a crack sensation now has localized swelling. This could be a small stress fracture. We will use a postop shoe. I would like to avoid a boot because it might irritate her higher wound. She has a walker, Rollator and wheelchair at home that she can use. She has visiting physicians. I told her to call them because she will need recheck and likely reimage Radiography Diagnostic Testing: Clinical Impression(s) from Imaging Studies Foot X-Ray 04/15/22 20:20 IMPRESSION: Left foot with no acute findings. Osteopenia with minimal calcaneal spurring. Electronically Signed: Manny Doherty MD at 20:34 EDT , Discharge Plan Triage Chief Complaint: Lower Extremity Injury ED Provider: Robin Obrien Dx/Rx/DC Orders Clinical Impression: Acute pain of left foot, Osteopenia of foot Instructions: ED Foot Sprain Prescriptions: No Action alendronate 70 MG tablet 70 mg PO SA phenytoin sodium extended 100 MG capsule 100 mg PO BID@0900,1700 omeprazole 10 MG capsule 40 mg PO QHS lorazepam 0.5 MG tablet 0.5 mg PO BID Combivent Respimat 1 PUFF inhaler 1 puff inhalation Q4H cyclobenzaprine 10 MG tablet 10 mg PO BID PRN PRN (Reason: BACK) ascorbic acid (vitamin C) 500 MG tablet 500 mg PO DAILY benzonatate 100 MG capsule 100 mg PO DAILY PRN (Reason: Cough) paroxetine HCl 20 MG tablet 20 mg PO DAILY diclofenac sodium 75 MG tablet 75 mg PO BID PRN PRN (Reason: BACK PAIN) folic acid 1 MG tablet 1 mg PO BID pravastatin 20 MG tablet 20 mg PO QHS aclidinium bromide 400 MCG aerosol powdr breath activated 400 mcg IH BID acetaminophen 500 MG tablet 500 mg PO Q6H PRN PRN (Reason: Pain Or Fever) fluticasone propionate 100 mcg/actuation blister with device 2 puff inhalation BID loratadine 10 MG tablet 10 mg PO DAILY cholecalciferol (vitamin D3) 1,000 UNIT tablet 5,000 unit PO DAILY 0RF Primary Care Provider: ASHA MAYORGA Referrals: ASHA MAYORGA [Other] - 1-2 Weeks Disposition Disposition: Home, Self Care
[2022-04-15] MEDS: Acetaminophen 325 MG Tablet 650 MG PO (22:14)
[2022-04-15 22:15] VITALS: BP 138/74; PULSE 87; RESP 16; O2SAT 100
== END 2022-04-15 22:25 | disposition home or self-care (01) ==
PROVIDERS: Emergency Provider Emergency Medicine; Visit Provider Emergency Medicine
DX: M85.872 Other specified disorders of bone density and structure, left ankle and foot (principal); M79.672 Pain in left foot; F17.210 Nicotine dependence, cigarettes, uncomplicated
CPT/HCPCS: 73630; 99283

== ENCOUNTER 2022-05-08 09:30 | Outpatient (RCR) | payer MEDICAID, SELFPAY ==
[2022-04-08 00:23] VITALS: BP 123/67; PULSE 86; RESP 18; TEMP 36.3; BMI 20.5
[2022-04-10 09:34] VITALS: BP 133/64; PULSE 79; RESP 16; TEMP 36.3; BMI 20.5
--- NOTE | 2022-04-10 11:18 | PN.PCM_ITS ---
History of Present Illness Date of Service: 04/10/22 Chief Complaint: left leg ulcer History of Wound: This 61-year-old female was seen today for left leg ulcer. She denies fever, chill, nausea, vomiting, diarrhea. She tries to wear compression garment. She denies leg pain, redness, or odor. She denies trauma or recent increase in swelling. She had venous intervention with vascular specialist, Dr. Rdz. She has been wearing her compression stocking as advised anytime she is not wearing a 3M 2L compression dressing. She continues to smoke and has vascular disease. She also has rheumatoid arthritis. She went for a supervisor sunglasses referral and is considering making some changes to her di etary intake. She was given a prescription for Jay and Glucerna previously. She has not been taking the supplements as advised. She has decreased swelling and drainage. No bacterial growth was identified in her culture and she is not on antibiotics. Progress of Wound: Improving Objective Data Objective Data Vital Signs: Vital Signs Temp Pulse Resp BP O2 Del Method 97.4 F L 79 16 133/64 H Room Air 04/10/22 09:34 04/10/22 09:34 04/10/22 09:34 04/10/22 09:34 04/10/22 09:34 Oxygen Delivery Method Room Air Weight: 43.091 kg Body Mass Index (BMI) 20.5 Physical Exam Const alert and oriented x3 General Appearance: cooperative HEENT normocephalic Extremity Extremity Narrative: No calf tenderness palpable pulses Muscle wasting noted General Extremity: edema and no tenderness to palpation of joints or extremities; Negative for cyanosis Skin Skin Narrative: no purulence, no streaking, no odor, no infection. Skin discontinuity anterior leg x1 with reduced depth. Prior tissue and skin graft site noted. Her skin is atrophic and hairless. She has some edema General Skin Exam: Negative for erythema Neuro Neuro Narrative: lack of normal epicritic sensation via light touch is consistent with neuropathy status Psych cooperative and affect normal Debridement Note Debridement Note Wound debrided: left leg Wound Grade/Stage: Type of Debridement: Excisional debridement Anesthesia Used: 4% Lidocaine Solution Depth: in the subcutaneous layer Percentage of wound debrided: 40 Instrument Used: 3mm curette Tissue Removed: fibrous, devitalized subcutaneous, biofilm, slough Severity: Fat Layer Exposed Amount of bleeding with debridement: Mild Bleeding Controlled with: Pressure Patient tolerated procedure: Patient tolerated procedure well Post-Debridement Measurements and Additional Note: Post-Debridement Measurements/Treatment - Nurse 1 - General Ulcer Assessment Start: 04/10/22 09:33 Freq: Status: Active Protocol: ELENA Activity Type Activity Date Activity User E-sign Co-sign Detail Recorded Client Recorded Date Recorded By Document 04/10/22 09:34 [facility] [id number] 04/10/22 09:41 [facility] 04/10/22 09:34 WC - Today's Visit Information Type of service Follow-up Visit (Physician/CHECK PILOT ) Arrival Mode Ambulatory Transfer Assistance None Patient Identification Verified (Name & Yes ) Patient Requires Transmission-Based No Precautions Height and Weight Body Mass Index (BMI) 20.5 BMI Classification Normal Vital Signs Temperature (97.8 F-99.1 F) 97.4 F L Temperature Source Temporal Pulse Rate (60-100) 79 Pulse Location Monitor Respiratory Rate (12-18) 16 Respiratory rate source Observation Oxygen Delivery Method Room Air Blood Pressure (90/60-120/80) 133/64 H Blood Pressure Mean (mm Hg) 87 Source Monitor Position Sitting Blood Pressure Location Right Arm History Since Last Visit- (Skip if this is Patient's initial visit) Have you changed medications since your No last visit? Any new allergies or adverse reactions No Had a fall/change in ADL's that may No increase risk of falls Signs or symptoms of abuse and/or No neglect since last visit Have you been in the hospital since your No last visit? Has dressing in place as prescribed Yes Has compression in place as prescribed Yes Has offloadiing in place as prescribed N/A Experienced any changes in pain level or No management Left Footwear Regular Shoe Right Footwear Regular Shoe Pain Scale: 0-10 Numeric Is Patient Pain Free? Yes - Nurse 1 - General Ulcer Measurement Start: 04/10/22 09:33 Freq: Status: Active Protocol: Activity Type Activity Date Activity User E-sign Co-sign Detail Recorded Client Recorded Date Recorded By Document 04/10/22 09:34 [facility] [id number] 04/10/22 09:41 [facility] 04/10/22 09:34 Wound Center Nurse 1 #4 L Yoder Med -Current Size (cm) - Length 0.1 -Current Size (cm) - Width 0.1 -Current Size (cm) - Depth 0.1 -Total Square Cm 0.01 -Photo Taken Yes -Exudate Amt None Present -Wound Margin Flat & Intact -Granulation Amt Large (67-100%) -Granulation Quality [place] -Slough/Fibrin No -Necrosis Amt None Present (0 %) -Structure Exposed N/A -Texture (Mima-wound Skin Appearance) Scarring -Moisture (Mima-wound Skin Appearance) No Abnormality -Color (Mima-wound Skin Appearance) Hemosiderin Staining -Temperature (Mima-wound Skin No Abnormality Appearance) (Pt Warm) -Tenderness on Palpation (Mima-wound No Skin Appearance) -Ulcer Cleansing Soap and Water -Foul Odor after Cleansing No -Anesthetic Used 5% Lidocaine Gel #1- L inferior yoder -Current Size (cm) - Length 0.3 -Current Size (cm) - Width 0.3 -Current Size (cm) - Depth 0.2 -Total Square Cm 0.09 -Photo Taken No -Exudate Amt Small -Wound Margin Distinct, Outline Attached -Granulation Amt Small (1-33%) -Granulation Quality [place] -Necrosis Amt Small (1-33%) -Necrotic Tissue Type Adherent Slough -Structure Exposed N/A -Texture (Mima-wound Skin Appearance) Scarring -Moisture (Mima-wound Skin Appearance) No Abnormality -Color (Mima-wound Skin Appearance) Hemosiderin Staining -Temperature (Mima-wound Skin No Abnormality Appearance) (Pt Warm) -Tenderness on Palpation (Mima-wound No Skin Appearance) -Ulcer Cleansing Not Cleansed -Foul Odor after Cleansing No -Anesthetic Used 5% Lidocaine Gel Left Calf (cm) 29.8 Left Ankle (cm) 18.7 WC - Nurse 2 - General Ulcer CM Notes Start: 04/10/22 09:33 Freq: Status: Active Protocol: Activity Type Activity Date Activity User E-sign Co-sign Detail Recorded Client Recorded Date Recorded By Document 04/10/22 09:59 TENZIN [id number] 04/10/22 10:02 TENZIN 04/10/22 09:59 Wound Center Nurse 2 #4 L Yoder Med -Correct Patient No -Correct Side, Site, Position No -Correct Procedure No -Procedure Performed No -Post Debridement (cm) - Length 0 -Post Debridement (cm) - Width 0 -Post Debridement (cm) - Depth 0 -Total Square (Post) (cm) 0 -Area of Debridement (cm) - Length 0 -Area of Debridement (cm) - Width 0 -Total Square (Area) (cm) 0 -Wound/Ulcer Outcome Healed- Epithelialized #1- L inferior yoder -Time 10:01 -Correct Patient Yes -Correct Side, Site, Position Yes -Correct Procedure Yes -Procedure Performed Yes -Type of Procedure Debridement -Clinical Debridement Subcutaneous -Tissue Removed Subcutaneous -Post Debridement (cm) - Length 0.3 -Post Debridement (cm) - Width 0.3 -Post Debridement (cm) - Depth 0.5 -Total Square (Post) (cm) 0.09 -Area of Debridement (cm) - Length 0.3 -Area of Debridement (cm) - Width 0.3 -Total Square (Area) (cm) 0.09 -Tunneling No -Undermining/Tunneling No -Circular Undermining No -Wound/Ulcer Outcome Not Healed -Ulcer Cleansing Rinsed/ Irrigated with Saline -Foul Odor after Cleansing No -Bioengineered Tissue No -Bleeding Controlled with Pressure -Treatment Response Procedure Tolerated Well -Offloading No -Debridement - Subq, 1st 20sq cm Yes Pain Scale: 0-10 Numeric Is Patient Pain Free? Yes - Nurse 3 - General Ulcer D/C NN Start: 04/10/22 09:33 Freq: Status: Active Protocol: Activity Type Activity Date Activity User E-sign Co-sign Detail Recorded Client Recorded Date Recorded By Document 04/10/22 10:06 TENZIN [id number] 04/10/22 10:07 TENZIN 04/10/22 10:06 Wound Care Nurse 3 #1- L inferior yoder -Ulcer Cleansing Rinsed/ Irrigated with Saline -Foul Odor after Cleansing No -Primary Dressing Applied Aquacel AG 2x2 -Primary Dressing Covered/Secured with Dry Gauze & Roll Gauze, Secured with Tape -Aquacel AG 2x2 0 Left -Tubular Bandage Single Layer -Size of Tubigrip Used Size D -Size D ($) 1 Pain Scale: 0-10 Numeric Is Patient Pain Free? Yes WC - Visit Discharge Discharge Condition Stable Ambulatory Status Ambulatory Transportation Private Auto Medication Reconcilliation completed & Yes provided to patient/care provider Clinical Summary of Care Provided Yes Assessment/Plan Assessment/Plan (1) Ulcer of left lower extremity with fat layer exposed: CODE(S): L97.922 - Non-pressure chronic ulcer of unspecified part of left lower leg with fat layer exposed (2) Delayed wound healing: CODE(S): T14.8XXD - Other injury of unspecified body region, subsequent encounter (3) Osteomyelitis: CODE(S): M86.9 - Osteomyelitis, unspecified (4) Venous insufficiency (chronic) (peripheral): CODE(S): I87.2 - Venous insufficiency (chronic) (peripheral) (5) Localized edema: CODE(S): R60.0 - Localized edema (6) Rheumatoid arthritis: CODE(S): M06.9 - Rheumatoid arthritis, unspecified (7) Tobacco use disorder: CODE(S): F17.200 - Nicotine dependence, unspecified, uncomplicated (8) Malnutrition: CODE(S): E46 - Unspecified protein-calorie malnutrition (9) Body mass index [BMI] 19.9 or less, adult: CODE(S): Z68.1 - Body mass index [BMI] 19.9 or less, adult (10) Cellulitis of left lower limb: CODE(S): L03.116 - Cellulitis of left lower limb PLAN: Plan I reviewed and discussed her case today. Debridement was performed today as noted in the clinical panel to the ulcer site. Improved status is noted. The following work up and care recommendations were made: Dressing: To change daily with Aquacel. Avoid soaking. To avoid bathtub bathing where her leg including her wound are submerged. I recommend she uses traditional antibacterial soap and water. Tissue growth optimization: If she does have a documented history of osteomyelitis that is chronic she may be a candidate for hyperbaric oxygen therapy. 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 However, I would like to confirm if this is a relative or firm contraindication. She will consider this treatment again. Her last seizure was noted to be about three years ago. She is apprehensive about this at this time and tentatively does not want to proceed. Offload: To avoid direct pressure on the site. Vascular / edema: She has nonpalpable pulses and lack of hair. She also has questionable claudication presentation. I recommend noninvasive vascular studies including MARI, segmental thigh and leg pressure, PVR, and systolic toe pressure. The results were reviewed and she has left biphasic waveforms, left MARI of 1.2, and left toe brachial index is 0.72. The segmental thigh and leg pressures were not obtained. There is not a difference of over 30 mmHg when compared to arm pressures. She is also advised to discontinue all tobacco products to optimize healing and limb salvage opportunities. Due to ongoing lack of healing, a vascular referral was provided for Dr. Rdz. She started intervention and was advised to follow-up with her scheduled ultrasound as advised. Medical records have been reviewed and additional interventions not currently planned. Her treatment is mainly for venous insufficiency at this time. There is mild to moderate edema. I recommend Tubigrip compression dressings. This was applied today and she was advised to keep this intact until next week. Infection: Cultures were obtained and there is still no bacterial growth. She was referred again to infectious disease and due to clinical improvement and lack of bacterial growth, antibiotics were not recommended. She also has lack of leukocytosis (WBC 6.9), lack of ESR elevation (4). It is noted she has an elevated CRP of 22 which is nonspecific. We will repeat and monitor if local signs of infection return. Pain: Controlled Host factors: She has significant delays in healing. We discussed tobacco cessation and how this impairs healing. She has some muscle wasting and delayed healing and nutritional supplementation would also be beneficial. She is underweight and is not consuming adequate micro or macronutrients. A prescription for Jay and Ensure with 30 g of protein per shake were provided today. I also recommended a nutrition referral to optimize healing; scheduling in process. She has rheumatoid arthritis and understands this may also delay her healing. She was urged to reduce smoking; discussed at length again today. Her outcome prognosis is poor with continued tobacco use. Labs: Updated CBC, CMP, ESR, C-reactive protein labs were reviewed as noted. Imaging: Left leg xrays were recently updated (02-20-22) - there is a healed fracture in the mid third of the left tibia but apparently there is periosteal reaction and what appears to be chronic osteomyelitis with possibility of sinus tract. We discussed her rheumatoid arthritis significant medical history which may be contributing to delayed healing however I suspect her malnutrition and persistent smoking habits are interfering with her progress. F/u with supervisor sunglasses as advised; she initiated this process. Jay samples were provided. He is significantly underweight and has full body muscle tone loss and ongoing issues with healing. I do not think she is at risk for overweight status and we discussed her primary focus needs to be on obtaining the appropriate nutrients to allow healing. I answered all the patient's questions. To return to the wound healing center in 1 week for nursing dressing change in 2 weeks for physician evaluation, or call sooner if the patient has any questions or concerns. Note: [employer] speech recognition media sales consultant software was used to create portions of this document. Sound-alike and misspelled words, as well as other media sales consultant errors may be contained in the documentation.
[2022-04-24 09:37] VITALS: BP 147/79; PULSE 90; RESP 18; TEMP 35.9; BMI 20.5
--- NOTE | 2022-04-24 10:28 | PN.PCM_ITS ---
History of Present Illness Date of Service: 04/24/22 Chief Complaint: left leg ulcer History of Wound: This 61-year-old female was seen today for left leg ulcer. She denies fever, chill, nausea, vomiting, diarrhea. She tries to wear compression garment. She denies leg pain, redness, or odor. She denies trauma or recent increase in swelling. She had venous intervention with vascular specialist, Dr. Rdz. She has been wearing her compression stocking as advised anytime she is not wearing a 3M 2L compression dressing. She continues to smoke and has vascular disease. She also has rheumatoid arthritis. She went for a motorcycle maker referral and is considering making some changes to her di etary intake. She was given a prescription for Jay and Glucerna previously. She also had an injury to her left foot while stepping down she had some popping and cracking about 2 weeks ago. She had x-ray obtained and this was negative for overt fracture. She had been wearing a surgical shoe and still is unable to bear weight. She relates her primary care physician will order an updated x-ray probable tomorrow and defers x-ray ordered today. She has a Rollator walker at home and has not been using it. Progress of Wound: stable left leg Objective Data Objective Data Vital Signs: Vital Signs Temp Pulse Resp BP O2 Del Method 96.7 F L 90 18 147/79 H Room Air 04/24/22 09:37 04/24/22 09:37 04/24/22 09:37 04/24/22 09:37 04/10/22 09:34 Oxygen Delivery Method Room Air Weight: 43.091 kg Body Mass Index (BMI) 20.5 Physical Exam Const alert and oriented x3 Extremity Extremity Narrative: No calf tenderness palpable pulses Muscle wasting noted General Extremity: edema and no tenderness to palpation of joints or extremities; Negative for cyanosis Skin Skin Narrative: no purulence, no streaking, no odor, no infection. Skin discontinuity anterior leg with continiued communication with deep tissue. No mima wound inflammation today. No kevin necrosis noted. Prior tissue and skin graft site noted. Her skin is atrophic and hairless. She has some edema General Skin Exam: Negative for erythema Neuro Neuro Narrative: lack of normal epicritic sensation via light touch is consistent with neuropathy status Debridement Note Debridement Note Wound debrided: left leg Wound Grade/Stage: Type of Debridement: Excisional debridement Anesthesia Used: 4% Lidocaine Solution Depth: in the subcutaneous layer Percentage of wound debrided: 40 Instrument Used: 3mm curette Tissue Removed: fibrous, devitalized subcutaneous, biofilm, slough Severity: Fat Layer Exposed Amount of bleeding with debridement: Mild Bleeding Controlled with: Pressure Patient tolerated procedure: Patient tolerated procedure well Post-Debridement Measurements and Additional Note: Post-Debridement Measurements/Treatment - Nurse 1 - General Ulcer Assessment Start: 04/10/22 09:33 Freq: Status: Active Protocol: ELENA Activity Type Activity Date Activity User E-sign Co-sign Detail Recorded Client Recorded Date Recorded By Document 04/10/22 09:34 [facility] [id number] 04/10/22 09:41 [facility] Document 04/24/22 09:37 DL Desktop 04/24/22 09:44 DL 04/10/22 04/24/22 09:34 09:37 - Today's Visit Information Type of service Follow-up Visit Follow-up Visit (Physician/MELTER SUPERVISOR (Physician/MELTER SUPERVISOR ) ) Arrival Mode Ambulatory Ambulatory Transfer Assistance None None Patient Identification Verified (Name & Yes Yes ) Patient Requires Transmission-Based No No Precautions Height and Weight Body Mass Index (BMI) 20.5 20.5 BMI Classification Normal Normal Vital Signs Temperature (97.8 F-99.1 F) 97.4 F L 96.7 F L Temperature Source Temporal Temporal Pulse Rate (60-100) 79 90 Pulse Location Monitor Monitor Respiratory Rate (12-18) 16 18 Respiratory rate source Observation Observation Oxygen Delivery Method Room Air Blood Pressure (90/60-120/80) 133/64 H 147/79 H Blood Pressure Mean (mm Hg) 87 101 Source Monitor Monitor Position Sitting Blood Pressure Location Right Arm History Since Last Visit- (Skip if this is Patient's initial visit) Have you changed medications since your No No last visit? Any new allergies or adverse reactions No No Had a fall/change in ADL's that may No No increase risk of falls Signs or symptoms of abuse and/or No No neglect since last visit Have you been in the hospital since your No No last visit? Has dressing in place as prescribed Yes Yes Has compression in place as prescribed Yes Yes Has offloadiing in place as prescribed N/A Yes Experienced any changes in pain level or No No management Left Footwear Regular Shoe Right Footwear Regular Shoe Pain Scale: 0-10 Numeric Is Patient Pain Free? Yes Yes WC - Nurse 1 - General Ulcer Measurement Start: 04/10/22 09:33 Freq: Status: Active Protocol: Activity Type Activity Date Activity User E-sign Co-sign Detail Recorded Client Recorded Date Recorded By Document 04/10/22 09:34 [facility] [id number] 04/10/22 09:41 [facility] Document 04/24/22 09:37 DL Desktop 04/24/22 09:44 DL 04/10/22 04/24/22 09:34 09:37 Wound Center Nurse 1 #4 L Yoder Med -Current Size (cm) - Length 0.1 -Current Size (cm) - Width 0.1 -Current Size (cm) - Depth 0.1 -Total Square Cm 0.01 -Photo Taken Yes -Exudate Amt None Present -Wound Margin Flat & Intact -Granulation Amt Large (67-100%) -Granulation Quality [place] -Slough/Fibrin No -Necrosis Amt None Present (0 %) -Structure Exposed N/A -Texture (Mima-wound Skin Appearance) Scarring -Moisture (Mima-wound Skin Appearance) No Abnormality -Color (Mima-wound Skin Appearance) Hemosiderin Staining -Temperature (Mima-wound Skin No Abnormality Appearance) (Pt Warm) -Tenderness on Palpation (Mima-wound No Skin Appearance) -Ulcer Cleansing Soap and Water -Foul Odor after Cleansing No -Anesthetic Used 5% Lidocaine Gel #1- L inferior yoder -Current Size (cm) - Length 0.3 0.7 -Current Size (cm) - Width 0.3 0.5 -Current Size (cm) - Depth 0.2 1 -Total Square Cm 0.09 0.35 -Photo Taken No No -Undermining/Tunneling Starts (O'clock 11 ) -Undermining/Tunneling Ends (O'clock) 5 -Maximum Distance (cm) 0.2 -Exudate Amt Small Small -Wound Margin Distinct, Distinct, Outline Outline Attached Attached -Granulation Amt Small (1-33%) Small (1-33%) -Granulation Quality [place] Red -Necrosis Amt Small (1-33%) Small (1-33%) -Necrotic Tissue Type Adherent Slough Adherent Slough -Structure Exposed N/A N/A -Texture (Mima-wound Skin Appearance) Scarring Scarring -Moisture (Mima-wound Skin Appearance) No Abnormality No Abnormality -Color (Mima-wound Skin Appearance) Hemosiderin No Abnormality Staining -Temperature (Mima-wound Skin No Abnormality No Abnormality Appearance) (Pt Warm) (Pt Warm) -Tenderness on Palpation (Mima-wound No No Skin Appearance) -Ulcer Cleansing Not Cleansed -Foul Odor after Cleansing No -Anesthetic Used 5% Lidocaine 5% Lidocaine Gel Gel Left Calf (cm) 29.8 29 Left Ankle (cm) 18.7 19.7 WC - Nurse 2 - General Ulcer CM Notes Start: 04/10/22 09:33 Freq: Status: Active Protocol: Activity Type Activity Date Activity User E-sign Co-sign Detail Recorded Client Recorded Date Recorded By Document 04/10/22 09:59 [id number] 04/10/22 10:02 Document 04/24/22 09:58 [id number] 04/24/22 10:02 04/10/22 04/24/22 09:59 09:58 Wound Center Nurse 2 #4 L Yoder Med -Correct Patient No -Correct Side, Site, Position No -Correct Procedure No -Procedure Performed No -Post Debridement (cm) - Length 0 -Post Debridement (cm) - Width 0 -Post Debridement (cm) - Depth 0 -Total Square (Post) (cm) 0 -Area of Debridement (cm) - Length 0 -Area of Debridement (cm) - Width 0 -Total Square (Area) (cm) 0 -Wound/Ulcer Outcome Healed- Epithelialized #1- L inferior yoder -Time 10:01 09:59 -Correct Patient Yes Yes -Correct Side, Site, Position Yes Yes -Correct Procedure Yes Yes -Procedure Performed Yes Yes -Type of Procedure Debridement Debridement -Clinical Debridement Subcutaneous Subcutaneous -Tissue Removed Subcutaneous Subcutaneous -Post Debridement (cm) - Length 0.3 0.8 -Post Debridement (cm) - Width 0.3 0.5 -Post Debridement (cm) - Depth 0.5 0.9 -Total Square (Post) (cm) 0.09 0.40 -Area of Debridement (cm) - Length 0.3 0.8 -Area of Debridement (cm) - Width 0.3 0.5 -Total Square (Area) (cm) 0.09 0.40 -Tunneling No Yes -Tunneling Position (O'clock) 2 -Tunneling Distance (cm) 2.4 -Undermining/Tunneling No No -Circular Undermining No No -Wound/Ulcer Outcome Not Healed Not Healed -Ulcer Cleansing Rinsed/ Rinsed/ Irrigated with Irrigated with Saline Saline -Foul Odor after Cleansing No No -Bioengineered Tissue No No -Bleeding Controlled with Pressure Pressure -Treatment Response Procedure Procedure Tolerated Well Tolerated Well -Offloading No Yes -Type of Offloading Knee Walker -Debridement - Subq, 1st 20sq cm Yes Yes Pain Scale: 0-10 Numeric Is Patient Pain Free? Yes Yes - Nurse 3 - General Ulcer D/C NN Start: 04/10/22 09:33 Freq: Status: Active Protocol: Activity Type Activity Date Activity User E-sign Co-sign Detail Recorded Client Recorded Date Recorded By Document 04/10/22 10:06 TENZIN [id number] 04/10/22 10:07 Document 04/24/22 10:10 RB [id number] 04/24/22 10:11 RB 04/10/22 04/24/22 10:06 10:10 Wound Care Nurse 3 #1- L inferior yoder -Ulcer Cleansing Rinsed/ Rinsed/ Irrigated with Irrigated with Saline Saline -Foul Odor after Cleansing No -Primary Dressing Applied Aquacel AG 2x2 Aquacel AG 2x2 -Primary Dressing Covered/Secured with Dry Gauze & Dry Gauze,Dry Roll Gauze, Gauze & Roll Secured with Gauze,Secured Tape with Tape -Aquacel AG 2x2 0 1 Left -Tubular Bandage Single Layer Single Layer -Size of Tubigrip Used Size D Size C -Size C ($) 1 -Size D ($) 1 Treatment Response Procedure Tolerated Well Pain Scale: 0-10 Numeric Is Patient Pain Free? Yes Yes - Visit Discharge Discharge Condition Stable Stable Ambulatory Status Ambulatory Ambulatory Transportation Private Auto Private Auto Medication Reconcilliation completed & Yes No provided to patient/care provider Clinical Summary of Care Provided Yes Yes Assessment/Plan Assessment/Plan (1) Ulcer of left lower extremity with fat layer exposed: CODE(S): L97.922 - Non-pressure chronic ulcer of unspecified part of left lower leg with fat layer exposed (2) Delayed wound healing: CODE(S): T14.8XXD - Other injury of unspecified body region, subsequent encounter (3) Osteomyelitis: CODE(S): M86.9 - Osteomyelitis, unspecified (4) Venous insufficiency (chronic) (peripheral): CODE(S): I87.2 - Venous insufficiency (chronic) (peripheral) (5) Localized edema: CODE(S): R60.0 - Localized edema (6) Rheumatoid arthritis: CODE(S): M06.9 - Rheumatoid arthritis, unspecified (7) Tobacco use disorder: CODE(S): F17.200 - Nicotine dependence, unspecified, uncomplicated (8) Malnutrition: CODE(S): E46 - Unspecified protein-calorie malnutrition (9) Body mass index [BMI] 19.9 or less, adult: CODE(S): Z68.1 - Body mass index [BMI] 19.9 or less, adult (10) Injury of left foot: CODE(S): S99.922A - Unspecified injury of left foot, initial encounter (11) Difficulty in walking, not elsewhere classified: CODE(S): R26.2 - Difficulty in walking, not elsewhere classified PLAN: Plan I reviewed and discussed her case today. Debridement was performed today as noted in the clinical panel to the ulcer site. Improved status is noted. The following work up and care recommendations were made: Dressing: To change daily with Aquacel. Avoid soaking. To avoid bathtub bathing where her leg including her wound are submerged. I recommend she uses traditional antibacterial soap and water. Tissue growth optimization: If she does have a documented history of osteomyelitis that is chronic she may be a candidate for hyperbaric oxygen therapy. 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 However, I would like to confirm if this is a relative or firm contraindication. She will consider this treatment again. Her last seizure was noted to be about three years ago. She is apprehensive about this at this time and tentatively does not want to proceed. Offload: To avoid direct pressure on the site. Vascular / edema: She has nonpalpable pulses and lack of hair. She also has questionable claudication presentation. I recommend noninvasive vascular studies including MARI, segmental thigh and leg pressure, PVR, and systolic toe pressure. The results were reviewed and she has left biphasic waveforms, left MARI of 1.2, and left toe brachial index is 0.72. The segmental thigh and leg pressures were not obtained. There is not a difference of over 30 mmHg when compared to arm pressures. She is also advised to discontinue all tobacco products to optimize healing and limb salvage opportunities. Due to ongoing lac k of healing, a vascular referral was provided for Dr. Rdz. She started intervention and was advised to follow-up with her scheduled ultrasound as advised. Medical records have been reviewed and additional interventions not currently planned. Her treatment is mainly for venous insufficiency at this time. There is mild to moderate edema. I recommend Tubigrip compression dressings. This was applied today and she was advised to keep this intact until next week. Infection: Cultures were obtained and there is still no bacterial growth. She was referred again to infectious disease and due to clinical improvement and lack of bacterial growth, antibiotics were not recommended. She also has lack of leukocytosis (WBC 6.9), lack of ESR elevation (4). It is noted she has an elevated CRP of 22 which is nonspecific. We will repeat and monitor if local signs of infection return. Pain: Controlled Host factors: She has significant delays in healing. We discussed tobacco cessation and how this impairs healing. She has some muscle wasting and delayed healing and nutritional supplementation would also be beneficial. She is underweight and is not consuming adequate micro or macronutrients. A prescription for Jay and Ensure with 30 g of protein per shake were provided today. I also recommended a nutrition referral to optimize healing; scheduling in process. She has rheumatoid arthritis and understands this may also delay her healing. She was urged to reduce smoking; discussed at length again today. Her outcome prognosis is poor with continued tobacco use. Labs: Updated CBC, CMP, ESR, C-reactive protein labs were reviewed as noted. Imaging: Left leg xrays were recently updated (02-20-22) - there is a healed fracture in the mid third of the left tibia but apparently there is periosteal reaction and what appears to be chronic osteomyelitis with possibility of sinus tract. We discussed her rheumatoid arthritis significant medical history which may be contributing to delayed healing however I suspect her malnutrition and persistent smoking habits are interfering with her progress. F/u with motorcycle maker as advised; she initiated this process. Jay samples were pr ovided. He is significantly underweight and has full body muscle tone loss and ongoing issues with healing. I do not think she is at risk for overweight status and we discussed her primary focus needs to be on obtaining the appropriate nutrients to allow healing. Left foot injury: It is noted she had left foot injury and had negative initial x-rays. I recommend updating the x-rays within a month and offered to give her an order today. She defers and would like to obtain this when she goes to follow-up with her primary care physician. She is having difficulty bearing weight which is a surgical shoe and I recommended using her walker. I also gave her a prescription to get a pneumatic tall cam walker boot. She also has a wheelchair to use at home to reduce pressure on this painful injury site. However review her x-rays upon completion. Differential diagnoses were reviewed including bone contusion versus joint sprain versus hairline fracture. It is noted she also has osteopenia. I answered all the patient's questions. To return to the wound healing center in 1 week for nursing dressing change in 2 weeks for physician evaluation, or call sooner if the patient has any questions or concerns. Note: [employer] speech recognition orthodontic technician software was used to create portions of this document. Sound-alike and misspelled words, as well as other orthodontic technician errors may be contained in the documentation. The medical decision making level is limited based on data including the review of prior external notes, review of a prior test, or ordering a test. The medical decision making level is low. There is noted low risk of morbidity after considering this treatment plan and diagnostic data.
[2022-05-01 09:26] VITALS: BP 127/66; PULSE 76; RESP 18; TEMP 36.4; BMI 20.5
--- NOTE | 2022-05-01 10:19 | PN.PCM_ITS ---
History of Present Illness Date of Service: 05/01/22 Chief Complaint: left leg ulcer History of Wound: This 61-year-old female was seen today for left leg ulcer. She denies fever, chill, nausea, vomiting, diarrhea. She tries to wear compression garment. She denies leg pain, redness, or odor. She denies trauma or recent increase in swelling. She had venous intervention with vascular specialist, Dr. Rdz. She has been wearing her compression stocking as advised anytime she is not wearing a 3M 2L compression dressing. She continues to smoke and has vascular disease. She also has rheumatoid arthritis. She went for a resistor testing machine operator referral and is considering making some changes to her di etary intake. She was given a prescription for Jay and Glucerna previously. She reports she will not be able to buy these if she is waiting for her paycheck to come next month. She also had an injury to her left foot while stepping down she had some popping and cracking within the past month. She was fitted with a cam walker boot and she has reduction in pain since she has been wearing this for 5 days. It does slow her down. Her primary care physician ordered an updated foot x-ray and this was done by a company that came out to her house. She provided some information so we can try to get the report and images to review also. Progress of Wound: improving left leg Objective Data Objective Data Vital Signs: Vital Signs Temp Pulse Resp BP O2 Del Method 97.5 F L 76 18 127/66 H Room Air 05/01/22 09:26 05/01/22 09:26 05/01/22 09:26 05/01/22 09:26 04/10/22 09:34 Oxygen Delivery Method Room Air Weight: 43.091 kg Body Mass Index (BMI) 20.5 Physical Exam Const alert and oriented x3 Extremity Extremity Narrative: No calf tenderness palpable pulses Muscle wasting noted Pain to palpate lateral column around the fifth metatarsal base cuboid and metatarsal cuboid articulation site No pain to palpation proximally along the peroneal tendon, Achilles or posterior tibialis tendon No palpation to medial or lateral malleoli or ankle joint No pain with heel compression No pain with manipulation of the digits No skin tenting bogginess or fluctuance and compartments remain soft to palpate General Extremity: edema and no tenderness to palpation of joints or extremities; Negative for cyanosis Skin Skin Narrative: no purulence, no streaking, no odor, no infection. Skin discontinuity anterior leg with continued. No mima wound inflammation today. No kevin necrosis noted. Prior tissue and skin graft site noted. Her skin is atrophic and hairless. She has some edema General Skin Exam: Negative for erythema Neuro Neuro Narrative: lack of normal epicritic sensation via light touch is consistent with neuropathy status Debridement Note Debridement Note Wound debrided: left leg Wound Grade/Stage: Type of Debridement: Excisional debridement Anesthesia Used: 4% Lidocaine Solution Depth: in the subcutaneous layer Percentage of wound debrided: 40 Instrument Used: 3mm curette Tissue Removed: fibrous, devitalized subcutaneous, biofilm, slough Severity: Fat Layer Exposed Amount of bleeding with debridement: Mild Bleeding Controlled with: Pressure Patient tolerated procedure: Patient tolerated procedure well Post-Debridement Measurements and Additional Note: Post-Debridement Measurements/Treatment - Nurse 1 - General Ulcer Assessment Start: 04/10/22 09:33 Freq: Status: Active Protocol: ELENA Activity Type Activity Date Activity User E-sign Co-sign Detail Recorded Client Recorded Date Recorded By Document 04/10/22 09:34 [facility] [id number] 04/10/22 09:41 [facility] Document 04/24/22 09:37 DL Desktop 04/24/22 09:44 DL Document 05/01/22 09:26 DL [id number] 05/01/22 09:38 DL 04/10/22 04/24/22 05/01/22 09:34 09:37 09:26 - Today's Visit Information Type of service Follow-up Visit Follow-up Visit Follow-up Visit (Physician/BUFFER OPERATOR (Physician/BUFFER OPERATOR (Physician/BUFFER OPERATOR ) ) ) Arrival Mode Ambulatory Ambulatory Ambulatory Transfer Assistance None None None Patient Identification Verified (Name & Yes Yes Yes ) Patient Requires Transmission-Based No No No Precautions Height and Weight Body Mass Index (BMI) 20.5 20.5 20.5 BMI Classification Normal Normal Normal Vital Signs Temperature (97.8 F-99.1 F) 97.4 F L 96.7 F L 97.5 F L Temperature Source Temporal Temporal Temporal Pulse Rate (60-100) 79 90 76 Pulse Location Monitor Monitor Monitor Respiratory Rate (12-18) 16 18 18 Respiratory rate source Observation Observation Observation Oxygen Delivery Method Room Air Blood Pressure (90/60-120/80) 133/64 H 147/79 H 127/66 H Blood Pressure Mean (mm Hg) 87 101 86 Source Monitor Monitor Monitor Position Sitting Blood Pressure Location Right Arm History Since Last Visit- (Skip if this is Patient's initial visit) Have you changed medications since your No No No last visit? Any new allergies or adverse reactions No No No Had a fall/change in ADL's that may No No No increase risk of falls Signs or symptoms of abuse and/or No No No neglect since last visit Have you been in the hospital since your No No No last visit? Has dressing in place as prescribed Yes Yes Yes Has compression in place as prescribed Yes Yes Yes Has offloadiing in place as prescribed N/A Yes Yes Experienced any changes in pain level or No No management Left Footwear Regular Shoe Removable Cast Walker/Walking Boot Right Footwear Regular Shoe Pain Scale: 0-10 Numeric Is Patient Pain Free? Yes Yes Yes WC - Nurse 1 - General Ulcer Measurement Start: 04/10/22 09:33 Freq: Status: Active Protocol: Activity Type Activity Date Activity User E-sign Co-sign Detail Recorded Client Recorded Date Recorded By Document 04/10/22 09:34 [facility] [id number] 04/10/22 09:41 BM Document 04/24/22 09:37 DL Desktop 04/24/22 09:44 DL Document 05/01/22 09:26 DL [id number] 05/01/22 09:38 DL 04/10/22 04/24/22 05/01/22 09:34 09:37 09:26 Wound Center Nurse 1 #4 L Yoder Med -Current Size (cm) - Length 0.1 -Current Size (cm) - Width 0.1 -Current Size (cm) - Depth 0.1 -Total Square Cm 0.01 -Photo Taken Yes -Exudate Amt None Present -Wound Margin Flat & Intact -Granulation Amt Large (67-100%) -Granulation Quality [place] -Slough/Fibrin No -Necrosis Amt None Present (0 %) -Structure Exposed N/A -Texture (Mima-wound Skin Appearance) Scarring -Moisture (Mima-wound Skin Appearance) No Abnormality -Color (Mima-wound Skin Appearance) Hemosiderin Staining -Temperature (Mima-wound Skin No Abnormality Appearance) (Pt Warm) -Tenderness on Palpation (Mima-wound No Skin Appearance) -Ulcer Cleansing Soap and Water -Foul Odor after Cleansing No -Anesthetic Used 5% Lidocaine Gel #1- L inferior yoder -Current Size (cm) - Length 0.3 0.7 0.2 -Current Size (cm) - Width 0.3 0.5 0.2 -Current Size (cm) - Depth 0.2 1 1 -Total Square Cm 0.09 0.35 0.04 -Photo Taken No No Yes -Tunneling Position (O'clock) 2 -Tunneling Distance (cm) 2 -Undermining/Tunneling Starts (O'clock 11 ) -Undermining/Tunneling Ends (O'clock) 5 -Maximum Distance (cm) 0.2 -Exudate Amt Small Small Medium -Exudate Type Serosanguineous -Wound Margin Distinct, Distinct, Distinct, Outline Outline Outline Attached Attached Attached -Granulation Amt Small (1-33%) Small (1-33%) None Present (0 %) -Granulation Quality [place] Red -Necrosis Amt Small (1-33%) Small (1-33%) Small (1-33%) -Necrotic Tissue Type Adherent Slough Adherent Slough Adherent Slough -Structure Exposed N/A N/A N/A -Texture (Mima-wound Skin Appearance) Scarring Scarring Scarring -Moisture (Mima-wound Skin Appearance) No Abnormality No Abnormality No Abnormality -Color (Mima-wound Skin Appearance) Hemosiderin No Abnormality Hemosiderin Staining Staining -Temperature (Mima-wound Skin No Abnormality No Abnormality No Abnormality Appearance) (Pt Warm) (Pt Warm) (Pt Warm) -Tenderness on Palpation (Mima-wound No No No Skin Appearance) -Ulcer Cleansing Not Cleansed Rinsed/ Irrigated with Saline -Foul Odor after Cleansing No No -Anesthetic Used 5% Lidocaine 5% Lidocaine 5% Lidocaine Gel Gel Gel Left Calf (cm) 29.8 29 28 Left Ankle (cm) 18.7 19.7 18.5 WC - Nurse 2 - General Ulcer CM Notes Start: 04/10/22 09:33 Freq: Status: Active Protocol: Activity Type Activity Date Activity User E-sign Co-sign Detail Recorded Client Recorded Date Recorded By Document 04/10/22 09:59 [id number] 04/10/22 10:02 Document 04/24/22 09:58 [id number] 04/24/22 10:02 Document 05/01/22 09:53 [id number] 05/01/22 09:55 04/10/22 04/24/22 05/01/22 09:59 09:58 09:53 Wound Center Nurse 2 #4 L Yoder Med -Correct Patient No -Correct Side, Site, Position No -Correct Procedure No -Procedure Performed No -Post Debridement (cm) - Length 0 -Post Debridement (cm) - Width 0 -Post Debridement (cm) - Depth 0 -Total Square (Post) (cm) 0 -Area of Debridement (cm) - Length 0 -Area of Debridement (cm) - Width 0 -Total Square (Area) (cm) 0 -Wound/Ulcer Outcome Healed- Epithelialized #1- L inferior yoder -Time 10:01 09:59 09:53 -Correct Patient Yes Yes Yes -Correct Side, Site, Position Yes Yes Yes -Correct Procedure Yes Yes Yes -Procedure Performed Yes Yes Yes -Type of Procedure Debridement Debridement Debridement -Clinical Debridement Subcutaneous Subcutaneous Subcutaneous -Tissue Removed Subcutaneous Subcutaneous Subcutaneous -Post Debridement (cm) - Length 0.3 0.8 0.3 -Post Debridement (cm) - Width 0.3 0.5 0.2 -Post Debridement (cm) - Depth 0.5 0.9 1.9 -Total Square (Post) (cm) 0.09 0.40 0.06 -Area of Debridement (cm) - Length 0.3 0.8 0.3 -Area of Debridement (cm) - Width 0.3 0.5 0.2 -Total Square (Area) (cm) 0.09 0.40 0.06 -Tunneling No Yes No -Tunneling Position (O'clock) 2 -Tunneling Distance (cm) 2.4 -Undermining/Tunneling No No No -Circular Undermining No No No -Wound/Ulcer Outcome Not Healed Not Healed Not Healed -Ulcer Cleansing Rinsed/ Rinsed/ Rinsed/ Irrigated with Irrigated with Irrigated with Saline Saline Saline -Foul Odor after Cleansing No No No -Bioengineered Tissue No No No -Bleeding Controlled with Pressure Pressure Pressure -Treatment Response Procedure Procedure Procedure Tolerated Well Tolerated Well Tolerated Well -Offloading No Yes Yes -Type of Offloading Knee Walker Camwalker -Debridement - Subq, 1st 20sq cm Yes Yes Yes Pain Scale: 0-10 Numeric Is Patient Pain Free? Yes Yes Yes - Nurse 3 - General Ulcer D/C NN Start: 04/10/22 09:33 Freq: Status: Active Protocol: Activity Type Activity Date Activity User E-sign Co-sign Detail Recorded Client Recorded Date Recorded By Document 04/10/22 10:06 [id number] 04/10/22 10:07 Document 04/24/22 10:10 RB [id number] 04/24/22 10:11 RB Document 05/01/22 10:10 [facility] [id number] 05/01/22 10:11 [facility] 04/10/22 04/24/22 05/01/22 10:06 10:10 10:10 Wound Care Nurse 3 #1- L inferior yoder -Ulcer Cleansing Rinsed/ Rinsed/ Rinsed/ Irrigated with Irrigated with Irrigated with Saline Saline Saline -Foul Odor after Cleansing No No -Primary Dressing Applied Aquacel AG 2x2 Aquacel AG 2x2 Aquacel AG 2x2 -Primary Dressing Covered/Secured with Dry Gauze & Dry Gauze,Dry Dry Gauze & Roll Gauze, Gauze & Roll Roll Gauze, Secured with Gauze,Secured Secured with Tape with Tape Tape -Aquacel AG 2x2 0 1 1 Left -Tubular Bandage Single Layer Single Layer Single Layer -Size of Tubigrip Used Size D Size C Size C -Size C ($) 1 2 -Size D ($) 1 -Other sent extra w/ pt Treatment Response Procedure Procedure Tolerated Well Tolerated Well Pain Scale: 0-10 Numeric Is Patient Pain Free? Yes Yes Yes - Visit Discharge Discharge Condition Stable Stable Stable Ambulatory Status Ambulatory Ambulatory Ambulatory Transportation Private Auto Private Auto Private Auto Medication Reconcilliation completed & Yes No provided to patient/care provider Clinical Summary of Care Provided Yes Yes Assessment/Plan Assessment/Plan (1) Ulcer of left lower extremity with fat layer exposed: CODE(S): L97.922 - Non-pressure chronic ulcer of unspecified part of left lower leg with fat layer exposed (2) Delayed wound healing: CODE(S): T14.8XXD - Other injury of unspecified body region, subsequent encounter (3) Osteomyelitis: CODE(S): M86.9 - Osteomyelitis, unspecified (4) Venous insufficiency (chronic) (peripheral): CODE(S): I87.2 - Venous insufficiency (chronic) (peripheral) (5) Localized edema: CODE(S): R60.0 - Localized edema (6) Rheumatoid arthritis: CODE(S): M06.9 - Rheumatoid arthritis, unspecified (7) Tobacco use disorder: CODE(S): F17.200 - Nicotine dependence, unspecified, uncomplicated (8) Malnutrition: CODE(S): E46 - Unspecified protein-calorie malnutrition (9) Body mass index [BMI] 19.9 or less, adult: CODE(S): Z68.1 - Body mass index [BMI] 19.9 or less, adult (10) Injury of left foot: CODE(S): S99.922A - Unspecified injury of left foot, initial encounter (11) Difficulty in walking, not elsewhere classified: CODE(S): R26.2 - Difficulty in walking, not elsewhere classified PLAN: Plan I reviewed and discussed her case today. Debridement was performed today as noted in the clinical panel to the ulcer site. Improved status is noted. The following work up and care recommendations were made: Dressing: To change daily with Aquacel. Avoid soaking. To avoid bathtub bathing where her leg including her wound are submerged. I recommend she uses traditional antibacterial soap and water. Tissue growth optimization: If she does have a documented history of osteomy elitis that is chronic she may be a candidate for hyperbaric oxygen therapy. 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 However, I would like to confirm if this is a relative or firm contraindication. She will consider this treatment again. Her last seizure was noted to be about three years ago. She is apprehensive about this at this time and tentatively does not want to proceed. Offload: To avoid direct pressure on the site. Immobilization with Cam walker boot is expected to rest and protect her recent foot injury site and also prevent tension on the ulcer. To continue. She is doing well so far. Vascular / edema: She has nonpalpable pulses and lack of hair. She also has questionable claudication presentation. I recommend noninvasive vascular studies including MARI, segmental thigh and leg pressure, PVR, and systolic toe pressure. The results were reviewed and she has left biphasic waveforms, left MARI of 1.2, and left toe brachial index is 0.72. The segmental thigh and leg pressures were not obtained. There is not a difference of over 30 mmHg when compared to arm pressures. She is also advised to discontinue all tobacco products to optimize healing and limb salvage opportunities. Due to ongoing lack of healing, a vascular referral was provided for Dr. Rdz. She started intervention and was advised to follow-up with her scheduled ultrasound as advised. Medical records have been reviewed and additional interventions not currently planned. Her treatment is mainly for venous insufficiency at this time. There is mild to moderate edema. I recommend Tubigrip compression dressings. This was applied today and she was advised to keep this intact until next week. Infection: Cultures were obtained and there is still no bacterial growth. She was referred again to infectious disease and due to clinical improvement and lack of bacterial growth, antibiotics were not recommended. She also has lack of leukocytosis (WBC 6.9), lack of ESR elevation (4). It is noted she has an elevated CRP of 22 which is nonspecific. We will repeat and monitor if local signs of infection return. Pain: Controlled Host factors: She has significant delays in healing. We discussed tobacco cessation and how this impairs healing. She has some muscle wasting and delayed healing and nutritional supplementation would also be beneficial. She is underweight and is not consuming adequate micro or macronutrients. A prescription for Jay and Ensure with 30 g of protein per shake were provided today. I also recommended a nutrition referral to optimize healing; scheduling in process. She has rheumatoid arthritis and understands this may also delay her healing. She was urged to reduce smoking; discussed at length again today. Her outcome prognosis is poor with continued tobacco use. Labs: Updated CBC, CMP, ESR, C-reactive protein labs were reviewed as noted. Imaging: Left leg xrays were recently updated (02-20-22) - there is a healed fracture in the mid third of the left tibia but apparently there is periosteal reaction and what appears to be chronic osteomyelitis with possibility of sinus tract. We discussed her rheumatoid arthritis significant medical history which may be contributing to delayed healing however I suspect her malnutrition and persistent smoking habits are interfering with her progress. F/u with resistor testing machine operator as advised; she initiated this process. Jay samples were provided. He is significantly underweight and has full body muscle tone loss and ongoing issues with healing. I do not think she is at risk for overweight status and we discussed her primary focus needs to be on obtaining the appropriate nutrients to allow healing. Left foot injury: It is noted she had left foot injury and had negative initial x-rays. To continue cam walker boot. She had updated x-rays performed in her home on 04/30/2022 and the report and the images will be requested for review. Differential diagnoses were reviewed including bone contusion versus joint sprain versus hairline fracture. It is noted she also has osteopenia. I answered all the patient's questions. To return to the wound healing center in 1 week for nursing dressing change in 2 weeks for physician evaluation, or call sooner if the patient has any questions or concerns. Note: [employer] speech recognition chucking machine set up operator tool software was used to create portions of this document. Sound-alike and misspelled words, as well as other chucking machine set up operator tool errors may be contained in the documentation. The medical decision making level is limited based on data including the review of prior external notes, review of a prior test, or ordering a test. The medical decision making level is low. There is noted low risk of morbidity aft er considering this treatment plan and diagnostic data.
[2022-05-08 09:38] VITALS: BP 110/70; PULSE 92; RESP 18; TEMP 36; BMI 20.5
--- NOTE | 2022-05-08 10:22 | PN.PCM_ITS ---
History of Present Illness Date of Service: 05/08/22 Chief Complaint: left leg ulcer History of Wound: This 61-year-old female was seen today for left leg ulcer. She denies fever, chill, nausea, vomiting, diarrhea. She tries to wear compression garment. She denies leg pain, redness, or odor. She denies trauma or recent increase in swelling. She had venous intervention with vascular specialist, Dr. Rdz. She has been wearing her compression stocking as advised anytime she is not wearing a 3M 2L compression dressing. She continues to smoke and has vascular disease. She also has rheumatoid arthritis. 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 She was given a prescription for Jay and Glucerna previously. Samples were additionally provided today. She also had an injury to her left foot while stepping down she had some popping and cracking within the past month. She was fitted with a cam walker boot and she has reduction in pain since she has been wearing this a couple weeks with reduced pain. It does slow her down. She reports she does not have an x-ray however the report suggests a Sullivan fracture. The strap of her boot is rubbing and she has skin irritation to the top of her foot. Progress of Wound: Worse status left leg ulcer, overall stable Objective Data Objective Data Vital Signs: Vital Signs Temp Pulse Resp BP O2 Del Method 96.8 F L 92 18 110/70 Room Air 05/08/22 09:38 05/08/22 09:38 05/08/22 09:38 05/08/22 09:38 04/10/22 09:34 Oxygen Delivery Method Room Air Weight: 43.091 kg Body Mass Index (BMI) 20.5 Physical Exam Const alert and oriented x3 Extremity Extremity Narrative: No calf tenderness palpable pulses Muscle wasting noted Pain to palpate lateral column around the fifth metatarsal base cuboid and metatarsal cuboid articulation site No pain to palpation proximally along the peroneal tendon, Achilles or posterior tibialis tendon No palpation to medial or lateral malleoli or ankle joint No pain with heel compression No pain with manipulation of the digits No skin tenting bogginess or fluctuance and compartments remain soft to palpate General Extremity: edema and no tenderness to palpation of joints or extremities; Negative for cyanosis Skin Skin Narrative: no purulence, no streaking, no odor, no infection. Skin discontinuity anterior leg with continued x 2 with deep probing. No mima wound inflammation today. No kevin necrosis noted. Prior tissue and skin graft site noted. Her skin is atrophic and hairless. She has some edema General Skin Exam: Negative for erythema Neuro Neuro Narrative: lack of normal epicritic sensation via light touch is consistent with neuropathy status Debridement Note Debridement Note Wound debrided: left leg Wound Grade/Stage: Type of Debridement: Excisional debridement Anesthesia Used: 4% Lidocaine Solution Depth: in the subcutaneous layer Percentage of wound debrided: 40 Instrument Used: 3mm curette Tissue Removed: fibrous, devitalized subcutaneous, biofilm, slough Severity: Fat Layer Exposed Amount of bleeding with debridement: Mild Bleeding Controlled with: Pressure Patient tolerated procedure: Patient tolerated procedure well Post-Debridement Measurements and Additional Note: Post-Debridement Measurements/Treatment - Nurse 1 - General Ulcer Assessment Start: 04/10/22 09:33 Freq: Status: Active Protocol: ELENA Activity Type Activity Date Activity User E-sign Co-sign Detail Recorded Client Recorded Date Recorded By Document 04/10/22 09:34 [facility] [id number] 04/10/22 09:41 [facility] Document 04/24/22 09:37 DL Desktop 04/24/22 09:44 DL Document 05/01/22 09:26 DL [id number] 05/01/22 09:38 DL Document 05/08/22 09:38 DL [id number] 05/08/22 09:46 DL 04/10/22 04/24/22 05/01/22 09:34 09:37 09:26 - Today's Visit Information Type of service Follow-up Visit Follow-up Visit Follow-up Visit (Physician/SECONDARY SPECIAL EDUCATION TEACHER (Physician/SECONDARY SPECIAL EDUCATION TEACHER (Physician/SECONDARY SPECIAL EDUCATION TEACHER ) ) ) Arrival Mode Ambulatory Ambulatory Ambulatory Transfer Assistance None None None Patient Identification Verified (Name & Yes Yes Yes ) Patient Requires Transmission-Based No No No Precautions Height and Weight Body Mass Index (BMI) 20.5 20.5 20.5 BMI Classification Normal Normal Normal Vital Signs Temperature (97.8 F-99.1 F) 97.4 F L 96.7 F L 97.5 F L Temperature Source Temporal Temporal Temporal Pulse Rate (60-100) 79 90 76 Pulse Location Monitor Monitor Monitor Respiratory Rate (12-18) 16 18 18 Respiratory rate source Observation Observation Observation Oxygen Delivery Method Room Air Blood Pressure (90/60-120/80) 133/64 H 147/79 H 127/66 H Blood Pressure Mean (mm Hg) 87 101 86 Source Monitor Monitor Monitor Position Sitting Blood Pressure Location Right Arm History Since Last Visit- (Skip if this is Patient's initial visit) Have you changed medications since your No No No last visit? Any new allergies or adverse reactions No No No Had a fall/change in ADL's that may No No No increase risk of falls Signs or symptoms of abuse and/or No No No neglect since last visit Have you been in the hospital since your No No No last visit? Has dressing in place as prescribed Yes Yes Yes Has compression in place as prescribed Yes Yes Yes Has offloadiing in place as prescribed N/A Yes Yes Experienced any changes in pain level or No No management Left Footwear Regular Shoe Removable Cast Walker/Walking Boot Right Footwear Regular Shoe Pain Scale: 0-10 Numeric Is Patient Pain Free? Yes Yes Yes 05/08/22 09:38 WC - Today's Visit Information Type of service Follow-up Visit (Physician/SECONDARY SPECIAL EDUCATION TEACHER ) Arrival Mode Ambulatory Transfer Assistance None Patient Identification Verified (Name & Yes ) Patient Requires Transmission-Based Precautions Height and Weight Body Mass Index (BMI) 20.5 BMI Classification Normal Vital Signs Temperature (97.8 F-99.1 F) 96.8 F L Temperature Source Oral Pulse Rate (60-100) 92 Pulse Location Monitor Respiratory Rate (12-18) 18 Respiratory rate source Observation Oxygen Delivery Method Blood Pressure (90/60-120/80) 110/70 Blood Pressure Mean (mm Hg) 83 Source Monitor Position Blood Pressure Location History Since Last Visit- (Skip if this is Patient's initial visit) Have you changed medications since your No last visit? Any new allergies or adverse reactions No Had a fall/change in ADL's that may No increase risk of falls Signs or symptoms of abuse and/or No neglect since last visit Have you been in the hospital since your No last visit? Has dressing in place as prescribed Yes Has compression in place as prescribed N/A Has offloadiing in place as prescribed Yes Experienced any changes in pain level or No management Left Footwear Removable Cast Walker/Walking Boot Right Footwear Pain Scale: 0-10 Numeric Is Patient Pain Free? Yes WC - Nurse 1 - General Ulcer Measurement Start: 04/10/22 09:33 Freq: Status: Active Protocol: Activity Type Activity Date Activity User E-sign Co-sign Detail Recorded Client Recorded Date Recorded By Document 04/10/22 09:34 [facility] [id number] 04/10/22 09:41 [facility] Document 04/24/22 09:37 DL Desktop 04/24/22 09:44 DL Document 05/01/22 09:26 DL [id number] 05/01/22 09:38 DL Document 05/08/22 09:38 DL [id number] 05/08/22 09:46 DL 04/10/22 04/24/22 05/01/22 09:34 09:37 09:26 Wound Center Nurse 1 #4 L Yoder Med -Current Size (cm) - Length 0.1 -Current Size (cm) - Width 0.1 -Current Size (cm) - Depth 0.1 -Total Square Cm 0.01 -Photo Taken Yes -Exudate Amt None Present -Wound Margin Flat & Intact -Granulation Amt Large (67-100%) -Granulation Quality Trilla -Slough/Fibrin No -Necrosis Amt None Present (0 %) -Structure Exposed N/A -Texture (Mima-wound Skin Appearance) Scarring -Moisture (Mima-wound Skin Appearance) No Abnormality -Color (Mima-wound Skin Appearance) Hemosiderin Staining -Temperature (Mima-wound Skin No Abnormality Appearance) (Pt Warm) -Tenderness on Palpation (Mima-wound No Skin Appearance) -Ulcer Cleansing Soap and Water -Foul Odor after Cleansing No -Anesthetic Used 5% Lidocaine Gel #1- L inferior yoder -Current Size (cm) - Length 0.3 0.7 0.2 -Current Size (cm) - Width 0.3 0.5 0.2 -Current Size (cm) - Depth 0.2 1 1 -Total Square Cm 0.09 0.35 0.04 -Photo Taken No No Yes -Tunneling Position (O'clock) 2 -Tunneling Distance (cm) 2 -Undermining/Tunneling Starts (O'clock 11 ) -Undermining/Tunneling Ends (O'clock) 5 -Maximum Distance (cm) 0.2 -Exudate Amt Small Small Medium -Exudate Type Serosanguineous -Wound Margin Distinct, Distinct, Distinct, Outline Outline Outline Attached Attached Attached -Granulation Amt Small (1-33%) Small (1-33%) None Present (0 %) -Granulation Quality Trilla Red -Necrosis Amt Small (1-33%) Small (1-33%) Small (1-33%) -Necrotic Tissue Type Adherent Slough Adherent Slough Adherent Slough -Structure Exposed N/A N/A N/A -Texture (Mima-wound Skin Appearance) Scarring Scarring Scarring -Moisture (Mima-wound Skin Appearance) No Abnormality No Abnormality No Abnormality -Color (Mima-wound Skin Appearance) Hemosiderin No Abnormality Hemosiderin Staining Staining -Temperature (Mima-wound Skin No Abnormality No Abnormality No Abnormality Appearance) (Pt Warm) (Pt Warm) (Pt Warm) -Tenderness on Palpation (Mima-wound No No No Skin Appearance) -Ulcer Cleansing Not Cleansed Rinsed/ Irrigated with Saline -Foul Odor after Cleansing No No -Anesthetic Used 5% Lidocaine 5% Lidocaine 5% Lidocaine Gel Gel Gel Left Calf (cm) 29.8 29 28 Left Ankle (cm) 18.7 19.7 18.5 05/08/22 09:38 Wound Center Nurse 1 #4 L Yoder Med -Current Size (cm) - Length -Current Size (cm) - Width -Current Size (cm) - Depth -Total Square Cm -Photo Taken -Exudate Amt -Wound Margin -Granulation Amt -Granulation Quality -Slough/Fibrin -Necrosis Amt -Structure Exposed -Texture (Mima-wound Skin Appearance) -Moisture (Mima-wound Skin Appearance) -Color (Mima-wound Skin Appearance) -Temperature (Mima-wound Skin Appearance) -Tenderness on Palpation (Mima-wound Skin Appearance) -Ulcer Cleansing -Foul Odor after Cleansing -Anesthetic Used #1- L inferior yoder -Current Size (cm) - Length 0.4 -Current Size (cm) - Width 0.3 -Current Size (cm) - Depth 1.1 -Total Square Cm 0.12 -Photo Taken Yes -Tunneling Position (O'clock) -Tunneling Distance (cm) -Undermining/Tunneling Starts (O'clock 12 ) -Undermining/Tunneling Ends (O'clock) 2 -Maximum Distance (cm) -Exudate Amt Medium -Exudate Type Purulent -Wound Margin Distinct, Outline Attached -Granulation Amt None Present (0 %) -Granulation Quality -Necrosis Amt Small (1-33%) -Necrotic Tissue Type Adherent Slough -Structure Exposed N/A -Texture (Mima-wound Skin Appearance) Scarring -Moisture (Mima-wound Skin Appearance) No Abnormality -Color (Mima-wound Skin Appearance) Hemosiderin Staining -Temperature (Mima-wound Skin No Abnormality Appearance) (Pt Warm) -Tenderness on Palpation (Mima-wound Skin Appearance) -Ulcer Cleansing Soap and Water -Foul Odor after Cleansing No -Anesthetic Used 5% Lidocaine Gel Left Calf (cm) 27.2 Left Ankle (cm) 18.5 WC - Nurse 2 - General Ulcer CM Notes Start: 04/10/22 09:33 Freq: Status: Active Protocol: Activity Type Activity Date Activity User E-sign Co-sign Detail Recorded Client Recorded Date Recorded By Document 04/10/22 09:59 [id number] 04/10/22 10:02 Document 04/24/22 09:58 [id number] 04/24/22 10:02 Document 05/01/22 09:53 [id number] 05/01/22 09:55 Document 05/08/22 09:59 [id number] 05/08/22 10:01 04/10/22 04/24/22 05/01/22 09:59 09:58 09:53 Wound Center Nurse 2 #4 L Yoder Med -Correct Patient No -Correct Side, Site, Position No -Correct Procedure No -Procedure Performed No -Post Debridement (cm) - Length 0 -Post Debridement (cm) - Width 0 -Post Debridement (cm) - Depth 0 -Total Square (Post) (cm) 0 -Area of Debridement (cm) - Length 0 -Area of Debridement (cm) - Width 0 -Total Square (Area) (cm) 0 -Wound/Ulcer Outcome Healed- Epithelialized #1- L inferior yoder -Time 10:01 09:59 09:53 -Correct Patient Yes Yes Yes -Correct Side, Site, Position Yes Yes Yes -Correct Procedure Yes Yes Yes -Procedure Performed Yes Yes Yes -Type of Procedure Debridement Debridement Debridement -Clinical Debridement Subcutaneous Subcutaneous Subcutaneous -Tissue Removed Subcutaneous Subcutaneous Subcutaneous -Post Debridement (cm) - Length 0.3 0.8 0.3 -Post Debridement (cm) - Width 0.3 0.5 0.2 -Post Debridement (cm) - Depth 0.5 0.9 1.9 -Total Square (Post) (cm) 0.09 0.40 0.06 -Area of Debridement (cm) - Length 0.3 0.8 0.3 -Area of Debridement (cm) - Width 0.3 0.5 0.2 -Total Square (Area) (cm) 0.09 0.40 0.06 -Tunneling No Yes No -Tunneling Position (O'clock) 2 -Tunneling Distance (cm) 2.4 -Undermining/Tunneling No No No -Circular Undermining No No No -Wound/Ulcer Outcome Not Healed Not Healed Not Healed -Ulcer Cleansing Rinsed/ Rinsed/ Rinsed/ Irrigated with Irrigated with Irrigated with Saline Saline Saline -Foul Odor after Cleansing No No No -Bioengineered Tissue No No No -Bleeding Controlled with Pressure Pressure Pressure -Treatment Response Procedure Procedure Procedure Tolerated Well Tolerated Well Tolerated Well -Offloading No Yes Yes -Type of Offloading Knee Walker Camwalker -Debridement - Subq, 1st 20sq cm Yes Yes Yes Pain Scale: 0-10 Numeric Is Patient Pain Free? Yes Yes Yes 05/08/22 09:59 Wound Center Nurse 2 #4 L Yoder Med -Correct Patient -Correct Side, Site, Position -Correct Procedure -Procedure Performed -Post Debridement (cm) - Length -Post Debridement (cm) - Width -Post Debridement (cm) - Depth -Total Square (Post) (cm) -Area of Debridement (cm) - Length -Area of Debridement (cm) - Width -Total Square (Area) (cm) -Wound/Ulcer Outcome #1- L inferior yoder -Time 09:59 -Correct Patient Yes -Correct Side, Site, Position Yes -Correct Procedure Yes -Procedure Performed Yes -Type of Procedure Debridement -Clinical Debridement Subcutaneous -Tissue Removed Subcutaneous -Post Debridement (cm) - Length 2.5 -Post Debridement (cm) - Width 0.5 -Post Debridement (cm) - Depth 1.4 -Total Square (Post) (cm) 1.25 -Area of Debridement (cm) - Length 2.5 -Area of Debridement (cm) - Width 1.4 -Total Square (Area) (cm) 3.50 -Tunneling No -Tunneling Position (O'clock) -Tunneling Distance (cm) -Undermining/Tunneling No -Circular Undermining No -Wound/Ulcer Outcome Not Healed -Ulcer Cleansing Rinsed/ Irrigated with Saline -Foul Odor after Cleansing No -Bioengineered Tissue No -Bleeding Controlled with Pressure -Treatment Response Procedure Tolerated Well -Offloading No -Type of Offloading -Debridement - Subq, 1st 20sq cm Yes Pain Scale: 0-10 Numeric Is Patient Pain Free? Yes - Nurse 3 - General Ulcer D/C NN Start: 04/10/22 09:33 Freq: Status: Active Protocol: Activity Type Activity Date Activity User E-sign Co-sign Detail Recorded Client Recorded Date Recorded By Document 04/10/22 10:06 [id number] 04/10/22 10:07 Document 04/24/22 10:10 RB [id number] 04/24/22 10:11 RB Document 05/01/22 10:10 [facility] [id number] 05/01/22 10:11 [facility] 04/10/22 04/24/22 05/01/22 10:06 10:10 10:10 Wound Care Nurse 3 #1- L inferior yoder -Ulcer Cleansing Rinsed/ Rinsed/ Rinsed/ Irrigated with Irrigated with Irrigated with Saline Saline Saline -Foul Odor after Cleansing No No -Primary Dressing Applied Aquacel AG 2x2 Aquacel AG 2x2 Aquacel AG 2x2 -Primary Dressing Covered/Secured with Dry Gauze & Dry Gauze,Dry Dry Gauze & Roll Gauze, Gauze & Roll Roll Gauze, Secured with Gauze,Secured Secured with Tape with Tape Tape -Aquacel AG 2x2 0 1 1 Left -Tubular Bandage Single Layer Single Layer Single Layer -Size of Tubigrip Used Size D Size C Size C -Size C ($) 1 2 -Size D ($) 1 -Other sent extra w/ pt Treatment Response Procedure Procedure Tolerated Well Tolerated Well Pain Scale: 0-10 Numeric Is Patient Pain Free? Yes Yes Yes WC - Visit Discharge Discharge Condition Stable Stable Stable Ambulatory Status Ambulatory Ambulatory Ambulatory Transportation Private Auto Private Auto Private Auto Medication Reconcilliation completed & Yes No provided to patient/care provider Clinical Summary of Care Provided Yes Yes Assessment/Plan Assessment/Plan (1) Ulcer of left lower extremity with fat layer exposed: CODE(S): L97.922 - Non-pressure chronic ulcer of unspecified part of left lower leg with fat layer exposed (2) Delayed wound healing: CODE(S): T14.8XXD - Other injury of unspecified body region, subsequent encounter (3) Osteomyelitis: CODE(S): M86.9 - Osteomyelitis, unspecified (4) Venous insufficiency (chronic) (peripheral): CODE(S): I87.2 - Venous insufficiency (chronic) (peripheral) (5) Localized edema: CODE(S): R60.0 - Localized edema (6) Rheumatoid arthritis: CODE(S): M06.9 - Rheumatoid arthritis, unspecified (7) Tobacco use disorder: CODE(S): F17.200 - Nicotine dependence, unspecified, uncomplicated (8) Malnutrition: CODE(S): E46 - Unspecified protein-calorie malnutrition (9) Body mass index [BMI] 19.9 or less, adult: CODE(S): Z68.1 - Body mass index [BMI] 19.9 or less, adult (10) Injury of left foot: CODE(S): S99.922A - Unspecified injury of left foot, initial encounter (11) Difficulty in walking, not elsewhere classified: CODE(S): R26.2 - Difficulty in walking, not elsewhere classified (12) Nondisplaced fracture of fifth metatarsal bone, left foot, subsequent encounter for fracture with routine healing: CODE(S): S92.355D - Nondisplaced fracture of fifth metatarsal bone, left foot, subsequent encounter for fracture with routine healing PLAN: Plan I reviewed and discussed her case today. Debridement was performed today as noted in the clinical panel to the ulcer site. Improved status is noted. The following work up and care recommendations were made: Dressing: To change daily with Aquacel. Avoid soaking. To avoid bathtub bathing where her leg including her wound are submerged. I recommend she uses traditional antibacterial soap and water. Tissue growth optimization: If she does have a documented history of osteomyelitis that is chronic she may be a candidate for hyperbaric oxygen therapy. 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 However, I would like to confirm if this is a relative or firm contraindication. She will consider this treatment again. Her last seizure was noted to be about three years ago. She is apprehensive about this at this time and tentatively does not want to proceed. Offload: To avoid direct pressure on the site. Immobilization with Cam walker boot is expected to rest and protect her recent foot injury site and also prevent tension on the ulcer. To continue. She is doing well so far. Vascular / edema: She has nonpalpable pulses and lack of hair. She also has questionable claudication presentation. I recommend noninvasive vascular studies including MARI, segmental thigh and leg pressure, PVR, and systolic toe pressure. The results were reviewed and she has left biphasic waveforms, left MARI of 1.2, and left toe brachial index is 0.72. The segmental thigh and leg pressures were not obtained. There is not a difference of over 30 mmHg when compared to arm pressures. She is also advised to discontinue all tobacco products to optimize healing and limb salvage opportunities. Due to ongoing lack of healing, a vascular referral was provided for Dr. Rdz. She started intervention and was advised to follow-up with her scheduled ultrasound as advised. Medical records have been reviewed and additional interventions not currently planned. Her treatment is mainly for venous insufficiency at this time. There is mild to moderate edema. I recommend Tubigrip compression dressings. This was applied today and she was advised to keep this intact until next week. Infection: Cultures were obtained and there is still no bacterial growth. She was referred again to infectious disease and due to clinical improvement and lack of bacterial growth, antibiotics were not recommended. She also has lack of leukocytosis (WBC 6.9), lack of ESR elevation (4). It is noted she has an elevated CRP of 22 which is nonspecific. We will repeat and monitor if local signs of infection return. Pain: Controlled Host factors: She has significant delays in healing. We discussed tobacco cessation and how this impairs healing. She has some muscle wasting and delayed healing and nutritional supplementation would also be beneficial. She is underweight and is not consuming adequate micro or macronutrients. A prescription for Jay and Ensure with 30 g of protein per shake were provided today. I also recommended a nutrition referral to optimize healing; scheduling in process. She has rheumatoid arthritis and understands this may also delay her healing. She was urged to reduce smoking; discussed at length again today. Her outcome prognosis is poor with continued tobacco use. Labs: Updated CBC, CMP, ESR, C-reactive protein labs were reviewed as noted. Imaging: Left leg xrays were recently updated (02-20-22) - there is a healed fracture in the mid third of the left tibia but apparently there is periosteal reaction and what appears to be chronic osteomyelitis with possibility of sinus tract. We discussed her rheumatoid arthritis significant medical history which may be contributing to delayed healing however I suspect her malnutrition and persistent smoking habits are interfering with her progress. F/u with school office manager as advised; she initiated this process. Jay and glucerna samples were provided. He is significantly underweight and has full body muscle tone loss and ongoing issues with healing. I do not think she is at risk for overweight status and we discussed her primary focus needs to be on obtaining the appropriate nutrients to allow healing. Left foot injury: It is noted she had left foot injury and had negative initial x-rays. To continue cam walker boot. She had updated x-rays performed in her home on 04/30/2022 and the report and the images will be requested for review. Differential diagnoses were reviewed including bone contusion versus joint sprain versus hairline fracture. It is noted she also has osteopenia. I received a copy of them from [facility] on April 30, 2020 with the following findings of the left nonweightbearing foot views: Subtle lucency at the base of the fifth metatarsal is consistent with a nondisplaced Sullivan fracture. There is subtle cortical thickening may represent a subacute age. Patchy osteopenia demonstrated. Mild overlying soft tissue swelling is demonstrated on the lateral foot. I discussed anticipated healing time and advised her to continue to wear the cam walker boot and partial weight-bear as tolerated. She understands that this fracture pattern is notorious for delayed healing. She does have some irritation to the dorsal aspect of the left foot that is not a wound however I am concerned about future development of this is not better offloaded. Aperture pad was applied. She is advised to avoid over tightening the strap. I recommended she follow-up with the foot and ankle Center within the next month to evaluate fracture healing progress. A referral will be placed. I answered all the patient's questions. To return to the wound healing center in 1 week for nursing dressing change in 2 weeks for physician evaluation, or call sooner if the patient has any questions or concerns. Note: [email or web address] speech recognition personal caregiver software was used to create portions of this document. Sound-alike and misspelled words, as well as other personal caregiver errors may be contained in the documentation. I answered questions. The medical decision making level is moderate based on data including at least three of the following: review of prior external notes, review of a test, ordering a test, assessment requiring an independent historian. The medical decision making level is moderate. There is noted moderate risk of morbidity after considering this treatment plan and diagnostic data. Considerations were given to prescription management, decisions regarding surgical options, or social determinants of health.
== END 2022-05-08 23:59 | disposition home or self-care (01) ==
LOC: WC 09:30
PROVIDERS: Referring Provider Podiatrist; Visit Provider Podiatrist
DX: L97.922 Non-pressure chronic ulcer of unspecified part of left lower leg with fat layer exposed (principal); E46 Unspecified protein-calorie malnutrition; M06.9 Rheumatoid arthritis, unspecified; M86.9 Osteomyelitis, unspecified; L03.116 Cellulitis of left lower limb; I87.2 Venous insufficiency (chronic) (peripheral); S92.355D Nondisplaced fracture of fifth metatarsal bone, left foot, subsequent encounter for fracture with routine healing; F17.200 Nicotine dependence, unspecified, uncomplicated; R26.2 Difficulty in walking, not elsewhere classified; R60.0 Localized edema; Z68.1 Body mass index [BMI] 19.9 or less, adult
CPT/HCPCS: 11042

== ENCOUNTER 2022-06-05 15:00 | Outpatient (RCR) | payer MEDICAID, SELFPAY ==
[2022-05-09 00:26] VITALS: BP 110/70; PULSE 92; RESP 18; TEMP 36; BMI 20.5
[2022-05-15 09:37] VITALS: BP 129/62; PULSE 84; RESP 18; TEMP 36.4; BMI 20.5
--- NOTE | 2022-05-15 11:42 | PN.PCM_ITS ---
History of Present Illness Date of Service: 05/15/22 Chief Complaint: left leg ulcer History of Wound: This 61-year-old female was seen today for left leg ulcer. She denies fever, chill, nausea, vomiting, diarrhea. She tries to wear compression garment. She denies leg pain, redness, or odor. She denies trauma or recent increase in swelling. She had venous intervention with vascular specialist, Dr. Rdz. She has been wearing her compression stocking as advised anytime she is not wearing a 3M 2L compression dressing. She continues to smoke and has vascular disease. She also has rheumatoid arthritis. 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 She was given a prescription for Jay and Glucerna previously. She also had an injury to her left foot while stepping down she had some popping and cracking within the past month. She was fitted with a cam walker boot and she has reduction in pain since she has been wearing this. She has a Sullivan fracture and [facility] for clinical and xra y evaluation. The strap of her boot is rubbing and she has skin irritation to the top of her foot. This has resolved with apeture pad use. She reports some increased leg drainage even though the wound is smaller Progress of Wound: stable Objective Data Objective Data Vital Signs: Vital Signs Temp Pulse Resp BP 97.5 F L 84 18 129/62 H 05/15/22 09:37 05/15/22 09:37 05/15/22 09:37 05/15/22 09:37 Weight: 43.091 kg Body Mass Index (BMI) 20.5 Physical Exam Const alert and oriented x3 Extremity Extremity Narrative: No calf tenderness palpable pulses Muscle wasting noted Pain to palpate lateral column around the fifth metatarsal base cuboid and metatarsal cuboid articulation site No pain to palpation proximally along the peroneal tendon, Achilles or posterior tibialis tendon No palpation to medial or lateral malleoli or ankle joint No pain with heel compression No pain with manipulation of the digits No skin tenting bogginess or fluctuance and compartments remain soft to palpate General Extremity: edema and no tenderness to palpation of joints or extremities; Negative for cyanosis Skin Skin Narrative: no purulence, no streaking, no odor, no infection. Skin discontinuity anterior leg with continued x 1 with deep probing. No mima wound inflammation today. No kevin necrosis noted. Prior tissue and skin graft site noted. Her skin is atrophic and hairless. She has some edema. new fibrinous vs seropurulent drainage noted (culture obtained) General Skin Exam: Negative for erythema Neuro Neuro Narrative: lack of normal epicritic sensation via light touch is consistent with neuropathy status Debridement Note Debridement Note Wound debrided: left leg Wound Grade/Stage: Type of Debridement: Excisional debridement Anesthesia Used: 4% Lidocaine Solution Depth: in the subcutaneous layer Percentage of wound debrided: 40 Instrument Used: - (1 mm curette) Tissue Removed: fibrous, devitalized subcutaneous, biofilm, slough Severity: Fat Layer Exposed Amount of bleeding with debridement: Mild Bleeding Controlled with: Pressure Patient tolerated procedure: Patient tolerated procedure well Post-Debridement Measurements and Additional Note: Post-Debridement Measurements/Treatment WC - Nurse 1 - General Ulcer Assessment Start: 05/15/22 09:37 Freq: Status: Active Protocol: ELENA Activity Type Activity Date Activity User E-sign Co-sign Detail Recorded Client Recorded Date Recorded By Document 05/15/22 09:37 RB Desktop 05/15/22 09:41 RB 05/15/22 09:37 - Today's Visit Information Type of service Follow-up Visit (Physician/[employer] COUNSELOR ) Arrival Mode Ambulatory Transfer Assistance None Patient Identification Verified (Name & Yes ) Patient Requires Transmission-Based No Precautions Height and Weight Body Mass Index (BMI) 20.5 BMI Classification Normal Vital Signs Temperature (97.8 F-99.1 F) 97.5 F L Temperature Source Temporal Pulse Rate (60-100) 84 Pulse Location Monitor Respiratory Rate (12-18) 18 Respiratory rate source Observation Blood Pressure (90/60-120/80) 129/62 H Blood Pressure Mean (mm Hg) 84 Source Monitor Position Semi-Fowlers Blood Pressure Location Left Arm History Since Last Visit- (Skip if this is Patient's initial visit) Have you changed medications since your No last visit? Any new allergies or adverse reactions No Had a fall/change in ADL's that may No increase risk of falls Signs or symptoms of abuse and/or No neglect since last visit Have you been in the hospital since your No last visit? Has dressing in place as prescribed Yes Has compression in place as prescribed Yes Has offloadiing in place as prescribed Yes Experienced any changes in pain level or No management Left Footwear Removable Cast Walker/Walking Boot Right Footwear Regular Shoe Pain Scale: 0-10 Numeric Is Patient Pain Free? Yes WC - Nurse 1 - General Ulcer Measurement Start: 05/15/22 09:37 Freq: Status: Active Protocol: Activity Type Activity Date Activity User E-sign Co-sign Detail Recorded Client Recorded Date Recorded By Document 05/15/22 09:37 RB Desktop 05/15/22 09:41 RB 05/15/22 09:37 Wound Center Nurse 1 #4 L Yoder Med -Combined with other wound No -Current Size (cm) - Length 0.1 -Current Size (cm) - Width 0.1 -Current Size (cm) - Depth 0.1 -Total Square Cm 0.01 -Photo Taken No -Tunneling No -Undermining/Tunneling No -Circular Undermining No -Exudate Amt None Present -Wound Margin Distinct, Outline Attached -Granulation Amt Large (67-100%) -Granulation Quality [place] -Necrosis Amt None Present (0 %) -Structure Exposed N/A -Texture (Mima-wound Skin Appearance) Assessed, Scarring -Moisture (Mima-wound Skin Appearance) Assessed -Color (Mima-wound Skin Appearance) Assessed -Temperature (Mima-wound Skin No Abnormality Appearance) (Pt Warm) -Tenderness on Palpation (Mima-wound No Skin Appearance) -Ulcer Cleansing Wound Cleanser -Foul Odor after Cleansing No #1- L inferior yoder -Combined with other wound No -Current Size (cm) - Length 0.2 -Current Size (cm) - Width 0.2 -Current Size (cm) - Depth 1.3 -Total Square Cm 0.04 -Photo Taken Yes -Tunneling No -Undermining/Tunneling No -Circular Undermining No -Exudate Amt Medium -Exudate Type Purulent -Wound Margin Distinct, Outline Attached -Granulation Amt Medium (34-66%) -Granulation Quality [place] -Slough/Fibrin Yes -Necrosis Amt Medium (34-66%) -Necrotic Tissue Type Adherent Slough -Structure Exposed N/A -Texture (Mima-wound Skin Appearance) Assessed, Scarring -Moisture (Mima-wound Skin Appearance) Assessed -Color (Mima-wound Skin Appearance) Assessed -Temperature (Mima-wound Skin No Abnormality Appearance) (Pt Warm) -Tenderness on Palpation (Mima-wound No Skin Appearance) -Ulcer Cleansing Wound Cleanser -Foul Odor after Cleansing No -Anesthetic Used 4% Lidocaine Solution Lower Limb Edema Present Yes Left Calf (cm) 29.5 Left Ankle (cm) 21 - Nurse 2 - General Ulcer CM Notes Start: 05/15/22 09:37 Freq: Status: Active Protocol: Activity Type Activity Date Activity User E-sign Co-sign Detail Recorded Client Recorded Date Recorded By Document 05/15/22 09:57 [id number] 05/15/22 10:05 05/15/22 09:57 Wound Center Nurse 2 #4 L Yoder Med -Time 09:58 -Correct Patient No -Correct Side, Site, Position No -Correct Procedure No -Procedure Performed No -Post Debridement (cm) - Length 0 -Post Debridement (cm) - Width 0 -Post Debridement (cm) - Depth 0 -Total Square (Post) (cm) 0 -Area of Debridement (cm) - Length 0 -Area of Debridement (cm) - Width 0 -Total Square (Area) (cm) 0 -Tunneling No -Undermining/Tunneling No -Circular Undermining No -Wound/Ulcer Outcome Healed- Epithelialized -Ulcer Cleansing Rinsed/ Irrigated with Saline -Foul Odor after Cleansing No -Bioengineered Tissue No #1- L inferior yoder -Time 10:04 -Correct Patient Yes -Correct Side, Site, Position Yes -Correct Procedure Yes -Procedure Performed Yes -Type of Procedure Debridement -Clinical Debridement Subcutaneous -Tissue Removed Subcutaneous -Post Debridement (cm) - Length 0.4 -Post Debridement (cm) - Width 0.2 -Post Debridement (cm) - Depth 1.0 -Total Square (Post) (cm) 0.08 -Area of Debridement (cm) - Length 0.4 -Area of Debridement (cm) - Width 0.2 -Total Square (Area) (cm) 0.08 -Tunneling No -Undermining/Tunneling No -Circular Undermining No -Wound/Ulcer Outcome Not Healed -Ulcer Cleansing Rinsed/ Irrigated with Saline -Foul Odor after Cleansing No -Bioengineered Tissue No -Bleeding Controlled with Pressure -Treatment Response Procedure Tolerated Well -Offloading No -Debridement - Subq, 1st 20sq cm Yes Pain Scale: 0-10 Numeric Is Patient Pain Free? Yes - Nurse 3 - General Ulcer D/C NN Start: 05/15/22 09:37 Freq: Status: Active Protocol: Activity Type Activity Date Activity User E-sign Co-sign Detail Recorded Client Recorded Date Recorded By Document 05/15/22 10:17 RB Desktop 05/15/22 10:19 RB 05/15/22 10:17 Wound Care Nurse 3 #1- L inferior yoder -Ulcer Cleansing Rinsed/ Irrigated with Saline -Primary Dressing Applied Aquacel AG 2x2 -Primary Dressing Covered/Secured with Dry Gauze,Dry Gauze & Roll Gauze,Secured with Tape -Aquacel AG 2x2 1 Left -Other single layer size C Treatment Response Procedure Tolerated Well Pain Scale: 0-10 Numeric Is Patient Pain Free? Yes - Visit Discharge Discharge Condition Stable Ambulatory Status Ambulatory Transportation [facility] transport Medication Reconcilliation completed & No provided to patient/care provider Clinical Summary of Care Provided Yes Assessment/Plan Assessment/Plan (1) Ulcer of left lower extremity with fat layer exposed: CODE(S): L97.922 - Non-pressure chronic ulcer of unspecified part of left lower leg with fat layer exposed (2) Delayed wound healing: CODE(S): T14.8XXD - Other injury of unspecified body region, subsequent encounter (3) Osteomyelitis: CODE(S): M86.9 - Osteomyelitis, unspecified (4) Venous insufficiency (chronic) (peripheral): CODE(S): I87.2 - Venous insufficiency (chronic) (peripheral) (5) Localized edema: CODE(S): R60.0 - Localized edema (6) Rheumatoid arthritis: CODE(S): M06.9 - Rheumatoid arthritis, unspecified (7) Tobacco use disorder: CODE(S): F17.200 - Nicotine dependence, unspecified, uncomplicated (8) Malnutrition: CODE(S): E46 - Unspecified protein-calorie malnutrition (9) Body mass index [BMI] 19.9 or less, adult: CODE(S): Z68.1 - Body mass index [BMI] 19.9 or less, adult (10) Injury of left foot: CODE(S): S99.922A - Unspecified injury of left foot, initial encounter (11) Difficulty in walking, not elsewhere classified: CODE(S): R26.2 - Difficulty in walking, not elsewhere classified (12) Nondisplaced fracture of fifth metatarsal bone, left foot, subsequent encounter for fracture with routine healing: CODE(S): S92.355D - Nondisplaced fracture of fifth metatarsal bone, left foot, subsequent encounter for fracture with routine healing PLAN: Plan I reviewed and discussed her case today. Debridement was performed today as noted in the clinical panel to the ulcer site. Improved status is noted. The following work up and care recommendations were made: Dressing: To change daily with Aquacel. Avoid soaking. To avoid bathtub bathing where her leg including her wound are submerged. I recommend she uses traditional antibacterial soap and water. Tissue growth optimization: If she does have a documented history of osteomyelitis that is chronic she may be a candidate for hyperbaric oxygen therapy. 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 However, I would like to confirm if this is a relative or firm contraindication. She will consider this treatment again. Her last seizure was noted to be about three years ago. She is apprehensive about this at this time and tentatively does not want to proceed. Offload: To avoid direct pressure on the site. Immobilization with Cam walker boot is expected to rest and protect her recent foot injury site and also prevent tension on the ulcer. To continue. She is doing well so far. Vascular / edema: She has nonpalpable pulses and lack of hair. She also has questionable claudication presentation. I recommend noninvasive vascular studies including MARI, segmental thigh and leg pressure, PVR, and systolic toe pressure. The results were reviewed and she has left biphasic waveforms, left MARI of 1.2, and left toe brachial index is 0.72. The segmental thigh and leg pressures were not obtained. There is not a difference of over 30 mmHg when compared to arm pressures. She is also advised to discontinue all tobacco products to optimize healing and limb salvage opportunities. Due to ongoing lack of healing, a vascular referral was provided for Dr. Rdz. She started intervention and was advised to follow-up with her scheduled ultrasound as advised. Medical records have been reviewed and additional interventions not currently planned. Her treatment is mainly for venous insufficiency at this time. There is mild to moderate edema. I recommend Tubigrip compression dressings. This was applied today and she was advised to keep this intact until next week. Infection: Cultures were obtained and updated today. Antibiotics will be considered upon these results. To monitor if local signs of infection return; lacking at this time. Pain: Controlled Host factors: She has significant delays in healing. We discussed tobacco cessation and how this impairs healing. She has some muscle wasting and delayed healing and nutritional supplementation would also be beneficial. She is underweight and is not consuming adequate micro or macronutrients. A prescription for Jay and Ensure with 30 g of protein per shake were provided today. I also recommended a nutrition referral to optimize healing; scheduling in process. She has rheumatoid arthritis and understands this may also delay her healing. She was urged to reduce smoking; discussed at length again today. Her outcome prognosis is poor with continued tobacco use. Imaging: Left leg xrays were recently updated (02-20-22) - there is a healed fracture in the mid third of the left tibia but apparently there is periosteal reaction and what appears to be chronic osteomyelitis with possibility of sinus tract. We discussed her rheumatoid arthritis significant medical history which may be contributing to delayed healing however I suspect her malnutrition and persistent smoking habits are interfering with her progress. F/u with n utritionist as advised; she initiated this process. Jay and glucerna samples were provided. He is significantly underweight and has full body muscle tone loss and ongoing issues with healing. I do not think she is at risk for overweight status and we discussed her primary focus needs to be on obtaining the appropriate nutrients to allow healing. Left foot injury: It is noted she had left foot injury and had negative initial x-rays. To continue cam walker boot. She had updated x-rays performed in her home on 04/30/2022 and the report and the images will be requested for review. Differential diagnoses were reviewed including bone contusion versus joint sprain versus hairline fracture. It is noted she also has osteopenia. I received a copy of them from [facility] on April 30, 2020 with the following findings of the left nonweightbearing foot views: Subtle lucency at the base of the fifth metatarsal is consistent with a nondisplaced Sullivan fracture. There is subtle cortical thickening may represent a subacute age. Patchy osteopenia demonstrated. Mild overlying soft tissue swelling is demonstrated on the lateral foot. I discussed anticipated healing time and advised her to continue to wear the cam walker boot and partial weight-bear as tolerated. She understands that this fracture pattern is notorious for delayed healing. She does have some irritation to the dorsal aspect of the left foot that is not a wound however I am concerned about future development of this is not better offloaded. Aperture pad was applied. She is advised to avoid over tightening the strap. I recommended she follow-up with the [facility]: she is scheduled. I answered all the patient's questions. To return to the wound healing center in 1 week for nursing dressing change in 2 weeks for physician evaluation, or call sooner if the patient has any questions or concerns. Note: The [employer] website speech recognition hadoop software engineer software was used to create port ions of this document. Sound-alike and misspelled words, as well as other hadoop software engineer errors may be contained in the documentation. I answered questions. The medical decision making level is limited based on data including the review of prior external notes, review of a prior test, or ordering a test. The medical decision making level is low. There is noted low risk of morbidity after considering this treatment plan and diagnostic data.
[2022-05-15 15:47] LABS: M R Staph aureus DNA By PCR POSITIVE (Negative); Probe Check PASS; Staph aureus DNA By PCR POSITIVE (Negative)
[2022-06-05 14:26] VITALS: BP 143/68; PULSE 92; TEMP 36.2; BMI 20.5
--- NOTE | 2022-06-05 16:37 | PN.PCM_ITS ---
History of Present Illness Date of Service: 06/05/22 Chief Complaint: left leg ulcer History of Wound: This 61-year-old female was seen today for left leg ulcer. She denies fever, chill, nausea, vomiting, diarrhea. She tries to wear compression garment. She denies leg pain, redness, or odor. She denies trauma or recent increase in swelling. She had venous intervention with vascular specialist, Dr. Rdz. She has been wearing her compression stocking as advised anytime she is not wearing a 3M 2L compression dressing. She continues to smoke and has vascular disease. She also has rheumatoid arthritis. She went for a respiratory director referral and is struggling to make the recommended changes. She was given a prescription for Jay and Glucerna previously. She also had an injury to her left foot while stepping down she had some popping and cracking within the past month. She was fitted with a cam walker boot and she has reduction in pain since she has been wearing this. She has a Sullivan fracture and [facility]. Progress of Wound: Left anterior leg ulcer is very small, pin hole with some depth. She is experiencing a small amount of drainage. Mima wound is stable. She wears single layer tubigrip for compression. She is wearing a Cam walker for her left foot Sullivan fracture. Objective Data Objective Data Vital Signs: Vital Signs Temp Pulse Resp BP 97.1 F L 92 18 143/68 H 06/05/22 14:26 06/05/22 14:26 05/15/22 09:37 06/05/22 14:26 Weight: 95 lb Body Mass Index (BMI) 20.5 Lab / Micro Data Micro: Microbiology 05/15/22 10:00 Wound Abcess - Leg, Left Gram Stain - Final 05/15/22 10:00 Wound Abcess - Leg, Left Wound Culture - Final Meth. resistant Staph. aureus 05/15/22 10:00 Wound Abcess - Leg, Left Anaerobic Culture - Final No anaerobic bacteria isolated. Charges/Coding Procedures Integumentary [id number]: [id number] Miryam subq tissue 20 sq cm/< Physical Exam Const alert, oriented x3 and no apparent distress General Appearance: cooperative HEENT normocephalic Lymph Lymphatic: no lymphedema noted Resp normal respiratory effort and no use of accessory muscles Cardio regular rate and regular rhythm Extremity normal capillary refill Skin Wound Narrative: Left anterior leg ulcer is very small, pin hole with some depth. She is e xperiencing a small amount of drainage. Mima wound is stable. Neuro CN's II-XII intact bilaterally Psych affect normal Debridement Note Debridement Note Wound debrided: anterior leg ulcer Laterality: Left Type of Debridement: Excisional debridement Anesthesia Used: 5% Lidocaine Gel Depth: Down to and including healthy tissue and in the subcutaneous layer Percentage of wound debrided: 100 Instrument Used: - (1 mm curette) Tissue Removed: Devitalized tissue and slough Severity: Fat Layer Exposed Amount of bleeding with debridement: Mild Bleeding Controlled with: Compression and gauze Patient tolerated procedure: Patient tolerated procedure well Post-Debridement Measurements and Additional Note: Post-Debridement Measurements/Treatment - Nurse 1 - General Ulcer Assessment Start: 05/15/22 09:37 Freq: Status: Active Protocol: [email or web address].[email or web address] Activity Type Activity Date Activity User E-sign Co-sign Detail Recorded Client Recorded Date Recorded By Document 05/15/22 09:37 Desktop 05/15/22 09:41 RB Document 06/05/22 14:26 [id number] 06/05/22 14:29 05/15/22 06/05/22 09:37 14:26 - Today's Visit Information Type of service Follow-up Visit Follow-up Visit (Physician/CAREER SERVICES MANAGER (Physician/CAREER SERVICES MANAGER ) ) Arrival Mode Ambulatory Ambulatory Transfer Assistance None Patient Identification Verified (Name & Yes Yes ) Patient Requires Transmission-Based No Precautions Height and Weight Body Mass Index (BMI) 20.5 20.5 BMI Classification Normal Normal Vital Signs Temperature (97.8 F-99.1 F) 97.5 F L 97.1 F L Temperature Source Temporal Temporal Pulse Rate (60-100) 84 92 Pulse Location Monitor Monitor Respiratory Rate (12-18) 18 Respiratory rate source Observation Blood Pressure (90/60-120/80) 129/62 H 143/68 H Blood Pressure Mean (mm Hg) 84 93 Source Monitor Monitor Position Semi-Fowlers Sitting Blood Pressure Location Left Arm Right Arm History Since Last Visit- (Skip if this is Patient's initial visit) Have you changed medications since your No No last visit? Any new allergies or adverse reactions No No Had a fall/change in ADL's that may No No increase risk of falls Signs or symptoms of abuse and/or No No neglect since last visit Have you been in the hospital since your No No last visit? Has dressing in place as prescribed Yes Yes Has compression in place as prescribed Yes N/A Has offloadiing in place as prescribed Yes Yes Experienced any changes in pain level or No No management Left Footwear Removable Cast Removable Cast Walker/Walking Walker/Walking Boot Boot Right Footwear Regular Shoe Regular Shoe Pain Scale: 0-10 Numeric Is Patient Pain Free? Yes Yes WC - Nurse 1 - General Ulcer Measurement Start: 05/15/22 09:37 Freq: Status: Active Protocol: Activity Type Activity Date Activity User E-sign Co-sign Detail Recorded Client Recorded Date Recorded By Document 05/15/22 09:37 RB Desktop 05/15/22 09:41 RB Document 06/05/22 14:26 KR [id number] 06/05/22 14:29 KR 05/15/22 06/05/22 09:37 14:26 Wound Center Nurse 1 #4 L Tenorio Med -Combined with other wound No -Current Size (cm) - Length 0.1 -Current Size (cm) - Width 0.1 -Current Size (cm) - Depth 0.1 -Total Square Cm 0.01 -Photo Taken No -Tunneling No -Undermining/Tunneling No -Circular Undermining No -Exudate Amt None Present -Wound Margin Distinct, Outline Attached -Granulation Amt Large (67-100%) -Granulation Quality [place] -Necrosis Amt None Present (0 %) -Structure Exposed N/A -Texture (Mima-wound Skin Appearance) Assessed, Scarring -Moisture (Mima-wound Skin Appearance) Assessed -Color (Mima-wound Skin Appearance) Assessed -Temperature (Mima-wound Skin No Abnormality Appearance) (Pt Warm) -Tenderness on Palpation (Mima-wound No Skin Appearance) -Ulcer Cleansing Wound Cleanser -Foul Odor after Cleansing No #1- L inferior tenorio -Combined with other wound No -Current Size (cm) - Length 0.2 0.1 -Current Size (cm) - Width 0.2 0.1 -Current Size (cm) - Depth 1.3 0.1 -Total Square Cm 0.04 0.01 -Photo Taken Yes -Tunneling No -Undermining/Tunneling No -Circular Undermining No -Exudate Amt Medium Small -Exudate Type Purulent Serosanguineous -Wound Margin Distinct, Distinct, Outline Outline Attached Attached -Granulation Amt Medium (34-66%) Small (1-33%) -Granulation Quality [place] -Slough/Fibrin Yes -Necrosis Amt Medium (34-66%) None Present (0 %) -Necrotic Tissue Type Adherent Slough -Structure Exposed N/A -Texture (Mima-wound Skin Appearance) Assessed, Assessed, Scarring Scarring -Moisture (Mima-wound Skin Appearance) Assessed No Abnormality, Assessed -Color (Mima-wound Skin Appearance) Assessed No Abnormality, Assessed -Temperature (Mima-wound Skin No Abnormality No Abnormality Appearance) (Pt Warm) (Pt Warm) -Tenderness on Palpation (Mima-wound No No Skin Appearance) -Ulcer Cleansing Wound Cleanser Rinsed/ Irrigated with Saline -Foul Odor after Cleansing No No -Anesthetic Used 4% Lidocaine 5% Lidocaine Solution Gel Lower Limb Edema Present Yes Left Calf (cm) 29.5 Left Ankle (cm) 21 WC - Nurse 2 - General Ulcer CM Notes Start: 05/15/22 09:37 Freq: Status: Active Protocol: Activity Type Activity Date Activity User E-sign Co-sign Detail Recorded Client Recorded Date Recorded By Document 05/15/22 09:57 [id number] 05/15/22 10:05 Document 06/05/22 15:30 [id number] 06/05/22 15:32 05/15/22 06/05/22 09:57 15:30 Wound Center Nurse 2 #4 L Tenorio Med -Time 09:58 -Correct Patient No -Correct Side, Site, Position No -Correct Procedure No -Procedure Performed No -Post Debridement (cm) - Length 0 -Post Debridement (cm) - Width 0 -Post Debridement (cm) - Depth 0 -Total Square (Post) (cm) 0 -Area of Debridement (cm) - Length 0 -Area of Debridement (cm) - Width 0 -Total Square (Area) (cm) 0 -Tunneling No -Undermining/Tunneling No -Circular Undermining No -Wound/Ulcer Outcome Healed- Epithelialized -Ulcer Cleansing Rinsed/ Irrigated with Saline -Foul Odor after Cleansing No -Bioengineered Tissue No #1- L inferior tenorio -Time 10:04 15:32 -Correct Patient Yes Yes -Correct Side, Site, Position Yes Yes -Correct Procedure Yes Yes -Procedure Performed Yes Yes -Type of Procedure Debridement Debridement -Clinical Debridement Subcutaneous Subcutaneous -Tissue Removed Subcutaneous Subcutaneous -Post Debridement (cm) - Length 0.4 0.4 -Post Debridement (cm) - Width 0.2 0.2 -Post Debridement (cm) - Depth 1.0 0.5 -Total Square (Post) (cm) 0.08 0.08 -Area of Debridement (cm) - Length 0.4 0.4 -Area of Debridement (cm) - Width 0.2 0.2 -Total Square (Area) (cm) 0.08 0.08 -Tunneling No No -Undermining/Tunneling No No -Circular Undermining No No -Wound/Ulcer Outcome Not Healed Not Healed -Ulcer Cleansing Rinsed/ Rinsed/ Irrigated with Irrigated with Saline Saline -Foul Odor after Cleansing No No -Bioengineered Tissue No No -Bleeding Controlled with Pressure Pressure -Treatment Response Procedure Procedure Tolerated Well Tolerated Well -Offloading No Yes -Type of Offloading Camwalker -Debridement - Subq, 1st 20sq cm Yes Yes Pain Scale: 0-10 Numeric Is Patient Pain Free? Yes Yes - Nurse 3 - General Ulcer D/C NN Start: 05/15/22 09:37 Freq: Status: Active Protocol: Activity Type Activity Date Activity User E-sign Co-sign Detail Recorded Client Recorded Date Recorded By Document 05/15/22 10:17 RB Desktop 05/15/22 10:19 RB Document 06/05/22 15:42 DL [id number] 06/05/22 15:44 DL 05/15/22 06/05/22 10:17 15:42 Wound Care Nurse 3 #1- L inferior tenorio -Ulcer Cleansing Rinsed/ Rinsed/ Irrigated with Irrigated with Saline Saline -Foul Odor after Cleansing No -Primary Dressing Applied Aquacel AG 2x2 Aquacel AG 4x4 -Primary Dressing Covered/Secured with Dry Gauze,Dry Dry Gauze & Gauze & Roll Roll Gauze, Gauze,Secured Secured with with Tape Tape -Aquacel AG 4x4 1 -Aquacel AG 2x2 1 Left -Tubular Bandage Single Layer -Size of Tubigrip Used Size D -Size D ($) 1 -Other single layer size C Treatment Response Procedure Procedure Tolerated Well Tolerated Well Pain Scale: 0-10 Numeric Is Patient Pain Free? Yes Yes WC - Visit Discharge Discharge Condition Stable Stable Ambulatory Status Ambulatory Ambulatory Transportation [facility] transport Private Auto Medication Reconcilliation completed & No provided to patient/care provider Clinical Summary of Care Provided Yes Assessment/Plan Assessment/Plan (1) Ulcer of left lower extremity with fat layer exposed: CODE(S): L97.922 - Non-pressure chronic ulcer of unspecified part of left lower leg with fat layer exposed (2) Delayed wound healing: CODE(S): T14.8XXD - Other injury of unspecified body region, subsequent encounter (3) Osteomyelitis: CODE(S): M86.9 - Osteomyelitis, unspecified (4) Venous insufficiency (chronic) (peripheral): CODE(S): I87.2 - Venous insufficiency (chronic) (peripheral) (5) Localized edema: CODE(S): R60.0 - Localized edema (6) Rheumatoid arthritis: CODE(S): M06.9 - Rheumatoid arthritis, unspecified (7) Tobacco use disorder: CODE(S): F17.200 - Nicotine dependence, unspecified, uncomplicated (8) Malnutrition: CODE(S): E46 - Unspecified protein-calorie malnutrition (9) Body mass index [BMI] 19.9 or less, adult: CODE(S): Z68.1 - Body mass index [BMI] 19.9 or less, adult (10) Injury of left foot: CODE(S): S99.922A - Unspecified injury of left foot, initial encounter (11) Difficulty in walking, not elsewhere classified: CODE(S): R26.2 - Difficulty in walking, not elsewhere classified (12) Nondisplaced fracture of fifth metatarsal bone, left foot, subsequent encounter for fracture with routine healing: CODE(S): S92.355D - Nondisplaced fracture of fifth metatarsal bone, left foot, subsequent encounter for fracture with routine healing PLAN: Plan Patient was previously seen by Dr. Schilling, who is no longer at the wound center. Patient evaluated at the wound healing center today. Debridement was performed today as previously documented. Wound care - Aquacel-Ag placed to the base of the ulcer, cover with gauze daily. Wash with soap and water at the time of dressing change. Compression - Single layer tubigrip for her +1 edema. Offload: To avoid direct pressure on the site. Immobilization with Cam walker boot is expected to rest and protect her recent foot injury site and also prevent tension on the ulcer. To continue. She is doing well so far. Her left foot fracture is being managed [facility]. Wound culture obtained which was positive for MRSA. She was referred to Dr. Holt, [place], for treatment. They are waiting insurance approval for the antibiotic he would like to use. Imaging: Left leg xrays were recently updated (02-20-22) - there is a healed fracture in the mid third of the left tibia but apparently there is periosteal reaction and what appears to be chronic osteomyelitis with possibility of sinus tract. Will obtain an MRI for further imaging of her left anterior leg non healing ulcer. She has a history of osteomyelitis Vascular / edema: She has nonpalpable pulses and lack of hair. She also has questionable claudication presentation. she had noninvasive vascular studies including MARI, segmental thigh and leg pressure, PVR, and systolic toe pressure. The results were reviewed and she has left biphasic waveforms, left MARI of 1.2, and left toe brachial index is 0.72. The segmental thigh and leg pressures were not obtained. There is not a difference of over 30 mmHg when compared to arm pressures. She is also advised to discontinue all tobacco products to optimize healing and limb salvage opportunities. Due to ongoing lack of healing, a vascular referral was provided for Dr. Rdz. She started intervention and was advised to follow-up with her scheduled ultrasound as advised. Her treatment is mainly for venous insufficiency at this time. She has significant delays in healing. We discussed tobacco cessation and how this impairs healing. She has some muscle wasting and delayed healing and nutritional supplementation would also be beneficial. She is underweight and is not consuming adequate micro or macronutrients. Encouraged to supplement of protein intake. She was referred for a nutrition referral to optimize healing, unsure if this has been scheduled, will look further into that. She has rheumatoid arthritis and understands this may also delay her healing. She was urged to reduce smoking; discussed at length again today. Her outcome prognosis is poor with continued tobacco use. Follow up one week. She is to call or come in sooner if she develops any issues.
== END 2022-06-07 23:59 | disposition home or self-care (01) ==
LOC: WC 15:00
PROVIDERS: Referring Provider Podiatrist; Visit Provider Nurse Practitioner Family
DX: I87.2 Venous insufficiency (chronic) (peripheral) (principal); L97.822 Non-pressure chronic ulcer of other part of left lower leg with fat layer exposed; M06.9 Rheumatoid arthritis, unspecified; M86.9 Osteomyelitis, unspecified; L03.116 Cellulitis of left lower limb; R26.2 Difficulty in walking, not elsewhere classified; F17.200 Nicotine dependence, unspecified, uncomplicated; R60.0 Localized edema
CPT/HCPCS: 11042; 87070; 87075; 87077; 87186; 87205; 87640

== ENCOUNTER 2022-07-02 15:01 | Emergency (ER) | payer MEDICAID, SELFPAY ==
[2022-07-02 15:02] VITALS: BP 125/77; PULSE 105; RESP 14; TEMP 36.2; O2SAT 99; BMI 20.2
[2022-07-02 15:47] LABS: Mucous, Urine 0 SEEN /hpf (<or=2+); Red Blood Cells-Urine 0 SEEN /hpf (0-5); White Blood Cells 0 SEEN /hpf (0-5)
[2022-07-02 15:51] LABS: Color, Urine Yellow (Yellow); Glucose, Dipstick Normal (Normal); Ketone-Dipstick Negative (Negative); Leukocyte Esterase-Dipstick 100 /ul (Negative); Nitrite-Dipstick Positive (Negative); Occult Blood-Urine Negative /ul (Negative); Protein-Dipstick 15 mg/dl (Negative); Urine Bilirubin Dipstick Negative (Negative); Urine Clarity Clear (Clear); Urine Urobilinogen Normal (Normal)
[2022-07-02 16:04] LABS: Bacteria RARE /hpf (None Seen); Squamous Epithelial Cells - UA 0-5 SEEN /hpf (5-10)
--- NOTE | 2022-07-02 16:37 | CT_ITS ---
STUDY: CT Abdomen And Pelvis W/O Contrast Injection 07/02/2022 5:32 PM REASON FOR EXAM: Female, 61 years old. ABDOMINAL PAIN left flank pain TECHNIQUE: Transaxial images were obtained without oral contrast, and without intravenous contrast. Individualized dose optimization techniques were used for this CT. COMPARISON: None. FINDINGS: The visualized lung bases are unremarkable. The visualized portions of the heart are within normal limits. Unremarkable liver. Unremarkable gallbladder and extrahepatic biliary system. Unremarkable spleen. Unremarkable pancreas. Unremarkable bilateral adrenal glands. No acute findings of the right kidney. Left mild hydronephrosis. Unremarkable visualized stomach. Unremarkable small intestine. There are multiple colonic diverticula consistent with diverticulosis. There is non-visualization of the appendix. There are calcifications of the abdominal aorta. This is consistent for atherosclerotic disease. There is no abdominal aortic aneurysm. Unremarkable inferior vena cava. Subcentimeter mesenteric lymph nodes. Unremarkable urinary bladder. There is absence of the uterus consistent with a prior hysterectomy.Healed right proximal femur fracture. Left femoral intramedullary eusebio. Unremarkable abdominal wall. There are diffuse degenerative changes of the visualized lumbar spine. CT/Abdomen/Pelvis without Cont IMPRESSION: (NOT LISTED IN ORDER OF SIGNIFICANCE) Left mild hydronephrosis. No ureteral calculi visualized. Other findings as above. Electronically Signed: Nicolás Beltran MD at 17:37 EDT ,
--- NOTE | 2022-07-02 16:39 | EDS_ITS ---
HPI History of Present Illness Chief Complaint: Flank Pain Informant: patient Narrative Narrative: Patient states she was sitting down. She had some pain in her back. She moved and the pain radiated around to the left lower quadrant. No urinary changes. No nausea vomiting. She is eating and drinking fine since this. It started about 9 AM. No numbness tingling or weakness. No lightheadedness in any time. The pain is reproduced somewhat by palpation and motion. She has no history of kidney stones. She denies history of prior spinal fractures. But she does have a long history of smoking steroid use. [facility] Medical History Anxiety Depression FH: bilateral hip replacements Myocardial infarct Seizures Smoker Ulcer of left yoder limited to breakdown of skin Home Medications alendronate 70 mg tablet 70 mg PO SA BONES 12/22/16 [History Last Taken 06/10/20] ipratropium 20 mcg-albuterol 100 mcg/actuation mist for inhalation (Combivent Respimat) 1 puff inhalation Q4H SOB 12/22/16 [History Last Taken Unknown] lorazepam 0.5 mg tablet 0.5 mg PO BID ANXIETY 12/22/16 [History Last Taken 06/12/20] omeprazole 10 mg capsule,delayed release 40 mg PO QHS GERD 12/22/16 [History Last Taken 06/11/20] phenytoin sodium extended 100 mg capsule 100 mg PO BID@0900,1700 SEIZURES 12/22/16 [History Last Taken 06/12/20] acetaminophen 500 mg tablet 500 mg PO Q6H PRN PRN Pain Or Fever 06/12/20 [History Last Taken Unknown] aclidinium bromide 400 mcg/actuation breath activated powder inhaler 400 mcg IH BID SOB 06/12/20 [History Last Taken 06/12/20] ascorbic acid (vitamin C) 500 mg tablet 500 mg PO DAILY SUPPLEMENT 06/12/20 [History Last Taken 06/12/20] benzonatate 100 mg capsule 100 mg PO DAILY PRN Cough 06/12/20 [History Last Taken Unknown] cyclobenzaprine 10 mg tablet 10 mg PO BID PRN PRN BACK 06/12/20 [History Last Taken Unknown] diclofenac sodium 75 mg tablet,delayed release 75 mg PO BID PRN PRN BACK PAIN 06/12/20 [History Last Taken Unknown] fluticasone propionate 100 mcg/actuation blister powder for inhalation 2 puff inhalation BID COPD 06/12/20 [History Last Taken 06/12/20] folic acid 1 mg tablet 1 mg PO BID SUPPLEMENT 06/12/20 [History Last Taken 06/12/20] loratadine 10 mg tablet 10 mg PO DAILY ALLERGIES 06/12/20 [History Last Taken 06/12/20] paroxetine HCl 20 mg tablet 20 mg PO DAILY DEPRESSION 06/12/20 [History Last Taken 06/12/20] pravastatin 20 mg tablet 20 mg PO QHS CHOLESTEROL 06/12/20 [History Last Taken 06/11/20] cholecalciferol (vitamin D3) 25 mcg (1,000 unit) tablet 5,000 unit PO DAILY 06/15/20 [Rx Last Taken Unknown] ondansetron 4 mg disintegrating tablet 4 mg PO Q8H PRN nausea and vomiting #10 tabs 07/02/22 [Rx Last Taken Unknown] oxycodone-acetaminophen 5 mg-325 mg tablet (Percocet) 1 tab PO Q6H PRN pain 3 days #10 tabs 07/02/22 [Rx Last Taken Unknown] Allergy/AdvReac Type Severity Reaction Status Date / Time Penicillins Allergy Severe Shortness Verified 07/02/22 16:22 of breath amoxicillin Allergy Hives Verified 07/02/22 16:22 aspirin AdvReac PT UNSURE Verified 07/02/22 16:22 OF REACTION Surgical History H/O repair of right rotator cuff History of cholecystectomy Social History Smoking Status: Current every day smoker tobacco type: cigarettes ROS ROS ED Constitutional Constitutional ED: Denies chills, fever(s) or sweats ENT ENT ED: Denies rhinorrhea or sore throat Cardiovascular Cardiovascular: Denies chest pain or palpitations Respiratory/Chest Respiratory/Chest: Reports cough and other Details: She has chronic cough from COPD but there is no interval change. ; Denies dyspnea Gastrointestinal Gastrointestinal: Reports other Details: Pain radiated around the left toward the left inguinal area and left lower quadrant. But she states it does not hurt when she presses on the abdomen. ; Denies constipation, diarrhea, melena, nausea or vomiting Genitourinary Genitourinary ED: Denies dysuria or hematuria Musculoskeletal Musculoskeletal: Reports back pain; Denies neck pain Integumentary Denies rash Neurologic Neurologic: Denies paresthesias or weakness Endocrine Endocrinology: Denies polydipsia or polyuria Hematologic/Lymphatic Hematologic/Lymphatic: Reports other Details: No anticoagulation ; Denies easy bleeding or easy bruising Allergic/Immunologic Allergic/Immunologic ED: Denies urticaria EXAM Physical Exam Const Vital Signs: 07/02/22 15:02 Temperature 97.2 F L Temperature Source Temporal Pulse Rate 105 H Respiratory Rate 14 Blood Pressure 125/77 H Blood Pressure Mean 93 Pulse Ox 99 Oxygen Delivery Method Room Air Positive well nourished and well developed Constitutional Narrative: Patient sitting quietly in bed. She looks very comfortable and nontoxic. General Appearance ED: well developed and NAD HEENT Reports moist mucous membranes Eyes General Eye ED: Negative for scleral icterus Neck no JVD Chest Wall inspection of chest normal Resp normal respiratory effort Resp Narrative: Patient has significant COPD. However she is not having any breathing issues now. She has some mild coarse breath sounds but no wheezing. She states she feels she is at baseline. Cardio regular rate, regular rhythm and no murmurs GI normal to inspection, nondistended, normoactive bowel sounds and non-tender GI Narrative: Abdomen is soft, nontender. Even toward the left lower quadrant where the pain radiated there is no tenderness. No mass. Palpation: soft Narrative: No real CVA tenderness. Back/Spine Back/Spine Narrative: She has some mild nonfocal lumbar and paralumbar tenderness. No notable percus joshua tenderness. Extremity normal to inspection Extremity Narrative: She has dressings on the left lower extremities which are being treated by wound center. Pulses are intact where they can be felt. Neuro Sensorium / Orientation: alert Skin no rashes or lesions noted and no wounds MDM MDM MDM Narrative Medical decision making narrative: Scan showed some hydronephrosis but no visible calculi. I wonder if she may have passed 1. Her symptoms started with flank pain that then radiated around to the left. There is a motion component but she has never had this before. There is no sign of compression fracture. With her history exam and CT, I will treat her with some pain meds. Also Zofran. I do not think she needs Flomax as there is no visible stone. Lab Data Attestation: I reviewed the patient's lab results. Labs: Laboratory Results - last 24 hr 07/02/22 15:15 Urine Color Yellow Urine Clarity Clear Urine pH 8.0 Ur Specific [place] 1.010 Urine Protein 15 H Urine Glucose (UA) Normal Urine Ketones Negative Urine Occult Blood Negative Urine Nitrite Positive H Urine Bilirubin Negative Urine Urobilinogen Normal Ur Leukocyte Esterase 100 H Urine RBC 0 SEEN Urine WBC 0 SEEN Ur Squamous Epith Cells 0-5 SEEN Urine Bacteria RARE Urine Mucus 0 SEEN Radiography Diagnostic Testing: Clinical Impression(s) from Imaging Studies Abdomen/Pelvis CT 07/02/22 16:37 IMPRESSION: (NOT LISTED IN ORDER OF SIGNIFICANCE) Left mild hydronephrosis. No ureteral calculi visualized. Other findings as above. Electronically Signed: Nicolás Beltran MD at 17:37 EDT Reading Location ID and State: [facility] / [place] , Service support , CT scan did show some mild left hydronephrosis but no clear ureteral calculi. There were calcified lesions near the ureter but they do not appear to be definitively in it. Discharge Plan Triage Chief Complaint: Flank Pain ED Provider: Robin Obrien Dx/Rx/DC Orders Clinical Impression: Acute left flank pain, Hydronephrosis of left kidney Instructions: ED Flank Pain, Uncertain Cause, ED Kidney Stone w/ Colic Prescriptions: New oxycodone-acetaminophen [Percocet] 5-325 mg tablet 1 tab PO Q6H PRN (Reason: pain) 3 Days Qty: 10 0RF ondansetron 4 mg tablet,disintegrating 4 mg PO Q8H PRN (Reason: nausea and vomiting) Qty: 10 0RF No Action alendronate 70 MG tablet 70 mg PO SA phenytoin sodium extended 100 MG capsule 100 mg PO BID@0900,1700 omeprazole 10 MG capsule 40 mg PO QHS lorazepam 0.5 MG tablet 0.5 mg PO BID Combivent Respimat 1 PUFF inhaler 1 puff inhalation Q4H cyclobenzaprine 10 MG tablet 10 mg PO BID PRN PRN (Reason: BACK) ascorbic acid (vitamin C) 500 MG tablet 500 mg PO DAILY benzonatate 100 MG capsule 100 mg PO DAILY PRN (Reason: Cough) paroxetine HCl 20 MG tablet 20 mg PO DAILY diclofenac sodium 75 MG tablet 75 mg PO BID PRN PRN (Reason: BACK PAIN) folic acid 1 MG tablet 1 mg PO BID pravastatin 20 MG tablet 20 mg PO QHS aclidinium bromide 400 MCG aerosol powdr breath activated 400 mcg IH BID acetaminophen 500 MG tablet 500 mg PO Q6H PRN PRN (Reason: Pain Or Fever) fluticasone propionate 100 mcg/actuation blister with device 2 puff inhalation BID loratadine 10 MG tablet 10 mg PO DAILY cholecalciferol (vitamin D3) 1,000 UNIT tablet 5,000 unit PO DAILY 0RF Primary Care Provider: ASHA MAYORGA Referrals: ASHA MAYORGA [Other] Linn Hood MD [Med Staff - Active Staff] - 3-5 Days Disposition Disposition: Home, Self Care
[2022-07-02] MEDS: oxyCODONE 5 MG Tablet PO (16:43)
[2022-07-02] MEDS: morphine 10 MG/ML Syringe 4 MG SC (17:26)
[2022-07-02 19:00] VITALS: BP 139/88; PULSE 72; RESP 15; O2SAT 98
== END 2022-07-02 19:01 | disposition home or self-care (01) ==
PROVIDERS: Emergency Provider Emergency Medicine; Visit Provider Emergency Medicine
DX: N13.30 Unspecified hydronephrosis (principal); F17.210 Nicotine dependence, cigarettes, uncomplicated; R10.9 Unspecified abdominal pain; F32.A Depression, unspecified; F41.9 Anxiety disorder, unspecified; I25.2 Old myocardial infarction
CPT/HCPCS: 74176; 81001; 96372; 99284; A4216

== ENCOUNTER 2022-07-03 09:30 | Outpatient (RCR) | payer MEDICAID, SELFPAY ==
[2022-06-08 01:10] VITALS: BP 143/68; PULSE 92; RESP 18; TEMP 36.2; BMI 20.5
[2022-06-12 09:53] VITALS: BP 137/84; PULSE 94; RESP 18; TEMP 36.6; BMI 20.5
--- NOTE | 2022-06-12 10:42 | PCM.WC.PN ---
History of Present Illness Date of Service: 06/12/22 Chief Complaint: left leg ulcer History of Wound: This 61-year-old female was seen today for left leg ulcer. She denies fever, chill, nausea, vomiting, diarrhea. She tries to wear compression garment. She denies leg pain, redness, or odor. She denies trauma or recent increase in swelling. She had venous intervention with vascular specialist, Dr. Rdz. She has been wearing her compression stocking as advised anytime she is not wearing a 3M 2L compression dressing. She continues to smoke and has vascular disease. She also has rheumatoid arthritis. She went for a guest experience manager referral and is struggling to make the recommended changes. She was given a prescription for Jay and Glucerna previously. She also had an injury to her left foot while stepping down she had some popping and cracking within the past month. She was fitted with a cam walker boot and she has reduction in pain since she has been wearing this. She has a Sullivan fracture and will [facility] weeks for clinical and xray evaluation. The strap of her boot is rubbing and she has skin irritation to the top of her foot. This has resolved with apeture pad use. She reports some increased leg drainage even though the wound is smaller Objective Data Objective Data Vital Signs: Vital Signs Temp Pulse Resp BP 98 F 94 18 137/84 H 06/12/22 09:53 06/12/22 09:53 06/12/22 09:53 06/12/22 09:53 Weight: 95 lb Body Mass Index (BMI) 20.5 Debridement Note Debridement Note Post-Debridement Measurements and Additional Note: Post-Debridement Measurements/Treatment - Nurse 1 - General Ulcer Assessment Start: 06/12/22 09:26 Freq: Status: Active Protocol: WC.LOWEXT Activity Type Activity Date Activity User E-sign Co-sign Detail Recorded Client Recorded Date Recorded By Document 06/12/22 09:53 Desktop 06/12/22 09:55 RB 06/12/22 09:53 - Today's Visit Information Type of service Follow-up Visit (Physician/SCRUB WHEEL OPERATOR ) Arrival Mode Ambulatory Transfer Assistance None Patient Identification Verified (Name & Yes ) Patient Requires Transmission-Based No Precautions Height and Weight Body Mass Index (BMI) 20.5 BMI Classification Normal Vital Signs Temperature (97.8 F-99.1 F) 98 F Temperature Source Temporal Pulse Rate (60-100) 94 Pulse Location Monitor Respiratory Rate (12-18) 18 Respiratory rate source Observation Blood Pressure (90/60-120/80) 137/84 H Blood Pressure Mean (mm Hg) 101 Source Monitor Position Semi-Fowlers Blood Pressure Location Left Arm History Since Last Visit- (Skip if this is Patient's initial visit) Have you changed medications since your No last visit? Any new allergies or adverse reactions No Had a fall/change in ADL's that may No increase risk of falls Signs or symptoms of abuse and/or No neglect since last visit Have you been in the hospital since your No last visit? Has dressing in place as prescribed Yes Has compression in place as prescribed No Has offloadiing in place as prescribed Yes Experienced any changes in pain level or No management Pain Scale: 0-10 Numeric Is Patient Pain Free? Yes WC - Nurse 1 - General Ulcer Measurement Start: 06/12/22 09:26 Freq: Status: Active Protocol: Activity Type Activity Date Activity User E-sign Co-sign Detail Recorded Client Recorded Date Recorded By Document 06/12/22 09:53 RB Desktop 06/12/22 09:55 RB 06/12/22 09:53 Wound Center Nurse 1 #1- L inferior yoder -Combined with other wound No -Current Size (cm) - Length 0.1 -Current Size (cm) - Width 0.1 -Current Size (cm) - Depth 0.1 -Total Square Cm 0.01 -Photo Taken Yes -Tunneling No -Undermining/Tunneling No -Circular Undermining No -Exudate Amt Small -Exudate Type Serosanguineous -Wound Margin Distinct, Outline Attached -Granulation Amt Large (67-100%) -Granulation Quality [place] -Slough/Fibrin Yes -Necrosis Amt Large (67-100%) -Necrotic Tissue Type Adherent Slough -Structure Exposed N/A -Texture (Mima-wound Skin Appearance) Assessed, Excoriation -Moisture (Mima-wound Skin Appearance) Assessed -Color (Mima-wound Skin Appearance) Assessed -Temperature (Mima-wound Skin No Abnormality Appearance) (Pt Warm) -Tenderness on Palpation (Mima-wound No Skin Appearance) -Ulcer Cleansing Wound Cleanser -Foul Odor after Cleansing No -Anesthetic Used 5% Lidocaine Gel Left Calf (cm) 30 Left Ankle (cm) 19.2 - Nurse 2 - General Ulcer CM Notes Start: 06/12/22 09:26 Freq: Status: Active Protocol: Activity Type Activity Date Activity User E-sign Co-sign Detail Recorded Client Recorded Date Recorded By Document 06/12/22 10:16 [id number] 06/12/22 10:18 TENZIN 06/12/22 10:16 Wound Center Nurse 2 #1- L inferior yoder -Time 10:16 -Correct Patient Yes -Correct Side, Site, Position Yes -Correct Procedure Yes -Procedure Performed Yes -Type of Procedure Debridement -Clinical Debridement Subcutaneous -Tissue Removed Subcutaneous -Post Debridement (cm) - Length 0.2 -Post Debridement (cm) - Width 0.3 -Post Debridement (cm) - Depth 0.5 -Total Square (Post) (cm) 0.06 -Area of Debridement (cm) - Length 0.2 -Area of Debridement (cm) - Width 0.3 -Total Square (Area) (cm) 0.06 -Tunneling No -Undermining/Tunneling No -Circular Undermining No -Wound/Ulcer Outcome Not Healed -Ulcer Cleansing Rinsed/ Irrigated with Saline -Foul Odor after Cleansing No -Bioengineered Tissue No -Bleeding Controlled with Pressure -Treatment Response Procedure Tolerated Well -Offloading No -Debridement - Subq, 1st 20sq cm Yes Pain Scale: 0-10 Numeric Is Patient Pain Free? Yes - Nurse 3 - General Ulcer D/C NN Start: 06/12/22 09:26 Freq: Status: Active Protocol: Activity Type Activity Date Activity User E-sign Co-sign Detail Recorded Client Recorded Date Recorded By Document 06/12/22 10:33 [facility] [id number] 06/12/22 10:34 [facility] 06/12/22 10:33 Wound Care Nurse 3 #1- L inferior yoder -Ulcer Cleansing Rinsed/ Irrigated with Saline -Foul Odor after Cleansing No -Primary Dressing Applied Aquacel AG 2x2 -Primary Dressing Covered/Secured with Dry Gauze & Roll Gauze, Secured with Tape -Aquacel AG 2x2 1 Left -Tubular Bandage Single Layer -Size of Tubigrip Used Size C -Size C ($) 1 Treatment Response Procedure Tolerated Well Pain Scale: 0-10 Numeric Is Patient Pain Free? Yes - Visit Discharge Discharge Condition Stable Ambulatory Status Ambulatory Transportation Private Auto
--- NOTE | 2022-06-12 10:43 | PCM.WC.PN ---
History of Present Illness Date of Service: 06/05/22 Chief Complaint: left leg ulcer History of Wound: This 61-year-old female was seen today for left leg ulcer. She denies fever, chill, nausea, vomiting, diarrhea. She tries to wear compression garment. She denies leg pain, redness, or odor. She denies trauma or recent increase in swelling. She had venous intervention with vascular specialist, Dr. Rdz. She has been wearing her compression stocking as advised anytime she is not wearing a 3M 2L compression dressing. She continues to smoke and has vascular disease. She also has rheumatoid arthritis. She went for a manager fitness referral and is struggling to make the recommended changes. She was given a prescription for Jay and Glucerna previously. She also had an injury to her left foot while stepping down she had some popping and cracking within the past month. She was fitted with a cam walker boot and she has reduction in pain since she has been wearing this. She has a Sullivan fracture and is [facility]. Progress of Wound: Left anterior leg ulcer is very small, pin hole with some depth.? She is experiencing a small amount of drainage. Mima wound is stable. She wears single layer tubigrip for compression. She is wearing a Cam walker for her left foot Sullivan fracture. Objective Data Objective Data Vital Signs: Vital Signs Temp Pulse Resp BP 98 F 94 18 137/84 H 06/12/22 09:53 06/12/22 09:53 06/12/22 09:53 06/12/22 09:53 Weight: 95 lb Body Mass Index (BMI) 20.5 Charges/Coding Procedures Integumentary 111xxx-113xx: [id number] Miryam subq tissue 20 sq cm/< Physical Exam Const alert, oriented x3 and no apparent distress General Appearance: cooperative Nutritional Appearance: underweight HEENT normocephalic Lymph Lymphatic: no lymphedema noted Resp normal respiratory effort and no use of accessory muscles Cardio regular rate Extremity Extremity Narrative: +1 edema Skin Wound Narrative: Left anterior leg ulcer is very small, pin hole with some depth. She is experiencing a small amount of drainage. Mima wound is stable. Neuro CN's II-XII intact bilaterally Psych affect normal Debridement Note Debridement Note Wound debrided: anterior leg ulcer Laterality: Left Type of Debridement: Excisional debridement Anesthesia Used: 5% Lidocaine Gel Depth: Down to and including healthy tissue and in the subcutaneous layer Percentage of wound debrided: 100 Instrument Used: 3mm curette Tissue Removed: Devitalized tissue and slough Severity: Fat Layer Exposed Amount of bleeding with debridement: Mild Bleeding Controlled with: Compression and gauze Patient tolerated procedure: Patient tolerated procedure well Post-Debridement Measurements and Additional Note: Post-Debridement Measurements/Treatment YVETTE - Nurse 1 - General Ulcer Assessment Start: 06/12/22 09:26 Freq: Status: Active Protocol: ELENA Activity Type Activity Date Activity User E-sign Co-sign Detail Recorded Client Recorded Date Recorded By Document 06/12/22 09:53 RB Desktop 06/12/22 09:55 RB 06/12/22 09:53 - Today's Visit Information Type of service Follow-up Visit (Physician/OIL PIPE INSPECTOR ) Arrival Mode Ambulatory Transfer Assistance None Patient Identification Verified (Name & Yes ) Patient Requires Transmission-Based No Precautions Height and Weight Body Mass Index (BMI) 20.5 BMI Classification Normal Vital Signs Temperature (97.8 F-99.1 F) 98 F Temperature Source Temporal Pulse Rate (60-100) 94 Pulse Location Monitor Respiratory Rate (12-18) 18 Respiratory rate source Observation Blood Pressure (90/60-120/80) 137/84 H Blood Pressure Mean (mm Hg) 101 Source Monitor Position Semi-Fowlers Blood Pressure Location Left Arm History Since Last Visit- (Skip if this is Patient's initial visit) Have you changed medications since your No last visit? Any new allergies or adverse reactions No Had a fall/change in ADL's that may No increase risk of falls Signs or symptoms of abuse and/or No neglect since last visit Have you been in the hospital since your No last visit? Has dressing in place as prescribed Yes Has compression in place as prescribed No Has offloadiing in place as prescribed Yes Experienced any changes in pain level or No management Pain Scale: 0-10 Numeric Is Patient Pain Free? Yes - Nurse 1 - General Ulcer Measurement Start: 06/12/22 09:26 Freq: Status: Active Protocol: Activity Type Activity Date Activity User E-sign Co-sign Detail Recorded Client Recorded Date Recorded By Document 06/12/22 09:53 RB Desktop 06/12/22 09:55 RB 06/12/22 09:53 Wound Center Nurse 1 #1- L inferior yoder -Combined with other wound No -Current Size (cm) - Length 0.1 -Current Size (cm) - Width 0.1 -Current Size (cm) - Depth 0.1 -Total Square Cm 0.01 -Photo Taken Yes -Tunneling No -Undermining/Tunneling No -Circular Undermining No -Exudate Amt Small -Exudate Type Serosanguineous -Wound Margin Distinct, Outline Attached -Granulation Amt Large (67-100%) -Granulation Quality [place] -Slough/Fibrin Yes -Necrosis Amt Large (67-100%) -Necrotic Tissue Type Adherent Slough -Structure Exposed N/A -Texture (Mima-wound Skin Appearance) Assessed, Excoriation -Moisture (Mima-wound Skin Appearance) Assessed -Color (Mima-wound Skin Appearance) Assessed -Temperature (Mima-wound Skin No Abnormality Appearance) (Pt Warm) -Tenderness on Palpation (Mima-wound No Skin Appearance) -Ulcer Cleansing Wound Cleanser -Foul Odor after Cleansing No -Anesthetic Used 5% Lidocaine Gel Left Calf (cm) 30 Left Ankle (cm) 19.2 WC - Nurse 2 - General Ulcer CM Notes Start: 06/12/22 09:26 Freq: Status: Active Protocol: Activity Type Activity Date Activity User E-sign Co-sign Detail Recorded Client Recorded Date Recorded By Document 06/12/22 10:16 TENZIN [id number] 06/12/22 10:18 TENZIN 06/12/22 10:16 Wound Center Nurse 2 #1- L inferior yoder -Time 10:16 -Correct Patient Yes -Correct Side, Site, Position Yes -Correct Procedure Yes -Procedure Performed Yes -Type of Procedure Debridement -Clinical Debridement Subcutaneous -Tissue Removed Subcutaneous -Post Debridement (cm) - Length 0.2 -Post Debridement (cm) - Width 0.3 -Post Debridement (cm) - Depth 0.5 -Total Square (Post) (cm) 0.06 -Area of Debridement (cm) - Length 0.2 -Area of Debridement (cm) - Width 0.3 -Total Square (Area) (cm) 0.06 -Tunneling No -Undermining/Tunneling No -Circular Undermining No -Wound/Ulcer Outcome Not Healed -Ulcer Cleansing Rinsed/ Irrigated with Saline -Foul Odor after Cleansing No -Bioengineered Tissue No -Bleeding Controlled with Pressure -Treatment Response Procedure Tolerated Well -Offloading No -Debridement - Subq, 1st 20sq cm Yes Pain Scale: 0-10 Numeric Is Patient Pain Free? Yes - Nurse 3 - General Ulcer D/C NN Start: 06/12/22 09:26 Freq: Status: Active Protocol: Activity Type Activity Date Activity User E-sign Co-sign Detail Recorded Client Recorded Date Recorded By Document 06/12/22 10:33 [facility] [id number] 06/12/22 10:34 [facility] 06/12/22 10:33 Wound Care Nurse 3 #1- L inferior yoder -Ulcer Cleansing Rinsed/ Irrigated with Saline -Foul Odor after Cleansing No -Primary Dressing Applied Aquacel AG 2x2 -Primary Dressing Covered/Secured with Dry Gauze & Roll Gauze, Secured with Tape -Aquacel AG 2x2 1 Left -Tubular Bandage Single Layer -Size of Tubigrip Used Size C -Size C ($) 1 Treatment Response Procedure Tolerated Well Pain Scale: 0-10 Numeric Is Patient Pain Free? Yes - Visit Discharge Discharge Condition Stable Ambulatory Status Ambulatory Transportation Private Auto Assessment/Plan Assessment/Plan (1) Ulcer of left lower extremity with fat layer exposed: CODE(S): L97.922 - Non-pressure chronic ulcer of unspecified part of left lower leg with fat layer exposed (2) Delayed wound healing: CODE(S): T14.8XXD - Other injury of unspecified body region, subsequent encounter (3) Osteomyelitis: CODE(S): M86.9 - Osteomyelitis, unspecified (4) Venous insufficiency (chronic) (peripheral): CODE(S): I87.2 - Venous insufficiency (chronic) (peripheral) (5) Localized edema: CODE(S): R60.0 - Localized edema (6) Rheumatoid arthritis: CODE(S): M06.9 - Rheumatoid arthritis, unspecified (7) Tobacco use disorder: CODE(S): F17.200 - Nicotine dependence, unspecified, uncomplicated (8) Malnutrition: CODE(S): E46 - Unspecified protein-calorie malnutrition (9) Body mass index [BMI] 19.9 or less, adult: CODE(S): Z68.1 - Body mass index [BMI] 19.9 or less, adult (10) Injury of left foot: CODE(S): S99.922A - Unspecified injury of left foot, initial encounter (11) Difficulty in walking, not elsewhere classified: CODE(S): R26.2 - Difficulty in walking, not elsewhere classified (12) Nondisplaced fracture of fifth metatarsal bone, left foot, subsequent encounter for fracture with routine healing: CODE(S): S92.355D - Nondisplaced fracture of fifth metatarsal bone, left foot, subsequent encounter for fracture with routine healing PLAN: Plan Patient evaluated at the wound healing center today. Debridement was performed today as previously documented. Wound care - Aquacel-Ag placed to the base of the ulcer, cover with gauze daily. (Stressed importance of wicking into the base of the ulcer, not just placing on top of the ulcer). Wash with soap and water at the time of dressing change. Compression - Single layer tubigrip for her edema. Offload: To avoid direct pressure on the site. Immobilization with Cam walker boot is expected to rest and protect her recent foot injury site and also prevent tension on the ulcer. To continue. She is doing well so far. Her left foot fracture is [facility] managed [facility]. Wound culture obtained which was positive for MRSA. She was referred to Dr. Holt, ALEX, for treatment. They are waiting insurance approval for the antibiotic, Kimyrsa infusion weekly.. Imaging: Left leg xrays were recently updated (02-20-22) - there is a healed fracture in the mid third of the left tibia but apparently there is periosteal reaction and what appears to be chronic osteomyelitis with possibility of sinus tract. Will obtain an MRI for further imaging of her left anterior leg non healing ulcer. She has a history of osteomyelitis Vascular / edema: She has nonpalpable pulses and lack of hair. She also has questionable claudication presentation. she had noninvasive vascular studies including MARI, segmental thigh and leg pressure, PVR, and systolic toe pressure. The results were reviewed and she has left biphasic waveforms, left MARI of 1.2, and left toe brachial index is 0.72. The segmental thigh and leg pressures were not obtained. There is not a difference of over 30 mmHg when compared to arm pressures. She is also advised to discontinue all tobacco products to optimize healing and limb salvage opportunities. Due to ongoing lack of healing, a vascular referral was provided for Dr. Rdz. She started intervention and was advised to follow-up with her scheduled ultrasound as advised. Her treatment is mainly for venous insufficiency at this time. She has significant delays in healing. We discussed tobacco cessation and how this impairs healing. She has some muscle wasting and delayed healing and nutritional supplementation would also be beneficial. She is underweight and is not consuming adequate micro or macronutrients. Encouraged to supplement of protein intake. She was referred for a nutrition referral to optimize healing. She has rheumatoid arthritis and understands this may also delay her healing. She was urged to reduce smoking; discussed at length again today. Her outcome prognosis is poor with continued tobacco use. Follow up two weeks. She is to call or come in sooner if she develops any issues.
[2022-06-26 14:14] VITALS: BP 147/63; PULSE 81; RESP 16; BMI 20.5
--- NOTE | 2022-06-26 16:49 | PN.PCM_ITS ---
History of Present Illness Date of Service: 06/26/22 Chief Complaint: left leg ulcer History of Wound: This 61-year-old female was seen today for left leg ulcer. She denies fever, chill, nausea, vomiting, diarrhea. She tries to wear compression garment. She denies leg pain, redness, or odor. She denies trauma or recent increase in swelling. She had venous intervention with vascular specialist, Dr. Rdz. She has been wearing her compression stocking as advised anytime she is not wearing a 3M 2L compression dressing. She continues to smoke and has vascular disease. She also has rheumatoid arthritis. 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 She was given a prescription for Jay and Glucerna previously. She also had an injury to her left foot while stepping down she had some popping and cracking within the past month. She was fitted with a cam walker boot and she has reduction in pain since she has been wearing this. She has a Sullivan fracture and is [facility]. Progress of Wound: Left anterior leg ulcer is very small, hole with some depth.? She is experiencing a small amount of drainage. Mima wound is stable. She wears single layer tubigrip for compression. She no longer has to use a Cam walker for her left foot Sullivan fracture, podiatry discontinued it. She has been increasing her activity since the cam walker was discontinued and now her left leg is very swollen. Objective Data Objective Data Vital Signs: Vital Signs Temp Pulse Resp BP O2 Del Method 98 F 81 16 147/63 H Room Air 06/12/22 09:53 06/26/22 14:14 06/26/22 14:14 06/26/22 14:14 06/26/22 14:14 Oxygen Delivery Method Room Air Weight: 95 lb Body Mass Index (BMI) 20.5 Charges/Coding Procedures Integumentary 111xxx-113xx: 79114 Miryam subq tissue 20 sq cm/< Physical Exam Const alert, oriented x3 and no apparent distress General Appearance: cooperative Nutritional Appearance: underweight HEENT normocephalic Lymph Lymphatic: no lymphedema noted Resp normal respiratory effort Effort and Inspection: able to speak in complete sentences Cardio regular rate Extremity normal capillary refill Extremity Narrative: Left leg had +3 edema, pedal pulse palpable on left. Skin Wound Narrative: Left anterior leg ulcer is a very small hole with some depth. She is experiencing a small amount of drainage. Mima wound is stable with no erythema. Neuro CN's II-XII intact bilaterally Psych affect normal Debridement Note Debridement Note Wound debrided: anterior leg ulcer Laterality: Left Type of Debridement: Excisional debridement Anesthesia Used: 5% Lidocaine Gel Depth: Down to and including healthy tissue and in the subcutaneous layer Percentage of wound debrided: 100 Instrument Used: 3mm curette Tissue Removed: Devitalized tissue and slough Severity: Fat Layer Exposed Amount of bleeding with debridement: Mild Bleeding Controlled with: Compression and gauze Patient tolerated procedure: Patient tolerated procedure well Post-Debridement Measurements and Additional Note: Post-Debridement Measurements/Treatment - Nurse 1 - General Ulcer Assessment Start: 06/12/22 09:26 Freq: Status: Active Protocol: ELENA Activity Type Activity Date Activity User E-sign Co-sign Detail Recorded Client Recorded Date Recorded By Document 06/12/22 09:53 RB Desktop 06/12/22 09:55 RB Document 06/26/22 14:14 [facility] [id number] 06/26/22 14:18 [facility] 06/12/22 06/26/22 09:53 14:14 - Today's Visit Information Type of service Follow-up Visit Follow-up Visit (Physician/DOCKING PILOT (Physician/DOCKING PILOT ) ) Arrival Mode Ambulatory Ambulatory Transfer Assistance None None Patient Identification Verified (Name & Yes Yes ) Patient Requires Transmission-Based No No Precautions Height and Weight Body Mass Index (BMI) 20.5 20.5 BMI Classification Normal Normal Vital Signs Temperature (97.8 F-99.1 F) 98 F Temperature Source Temporal Pulse Rate (60-100) 94 81 Pulse Location Monitor Monitor Respiratory Rate (12-18) 18 16 Respiratory rate source Observation Observation Oxygen Delivery Method Room Air Blood Pressure (90/60-120/80) 137/84 H 147/63 H Blood Pressure Mean (mm Hg) 101 91 Source Monitor Monitor Position Semi-Fowlers Sitting Blood Pressure Location Left Arm Left Arm History Since Last Visit- (Skip if this is Patient's initial visit) Have you changed medications since your No Yes last visit? Any new allergies or adverse reactions No No Had a fall/change in ADL's that may No No increase risk of falls Signs or symptoms of abuse and/or No No neglect since last visit Have you been in the hospital since your No No last visit? Has dressing in place as prescribed Yes No Has compression in place as prescribed No Yes Has offloadiing in place as prescribed Yes Yes Experienced any changes in pain level or No No management Left Footwear Regular Shoe Right Footwear Regular Shoe Pain Scale: 0-10 Numeric Is Patient Pain Free? Yes Yes WC - Nurse 1 - General Ulcer Measurement Start: 06/12/22 09:26 Freq: Status: Active Protocol: Activity Type Activity Date Activity User E-sign Co-sign Detail Recorded Client Recorded Date Recorded By Document 06/12/22 09:53 RB Desktop 06/12/22 09:55 RB Document 06/26/22 14:14 [facility] [id number] 06/26/22 14:18 [facility] 06/12/22 06/26/22 09:53 14:14 Wound Center Nurse 1 #1- L inferior yoder -Combined with other wound No No -Current Size (cm) - Length 0.1 0.3 -Current Size (cm) - Width 0.1 0.2 -Current Size (cm) - Depth 0.1 0.4 -Total Square Cm 0.01 0.06 -Photo Taken Yes No -Epithelialization None Present -Tunneling No No -Undermining/Tunneling No No -Circular Undermining No No -Exudate Amt Small Medium -Exudate Type Serosanguineous Serosanguineous -Wound Margin Distinct, Distinct, Outline Outline Attached Attached -Granulation Amt Large (67-100%) Medium (34-66%) -Granulation Quality [place] Red -Slough/Fibrin Yes Yes -Necrosis Amt Large (67-100%) Medium (34-66%) -Necrotic Tissue Type Adherent Slough Adherent Slough -Structure Exposed N/A -Texture (Mima-wound Skin Appearance) Assessed, Assessed, Excoriation Localized Edema ,Scarring -Moisture (Mima-wound Skin Appearance) Assessed Assessed,Dry/ Scaly -Color (Mima-wound Skin Appearance) Assessed Assessed -Temperature (Mima-wound Skin No Abnormality No Abnormality Appearance) (Pt Warm) (Pt Warm) -Tenderness on Palpation (Mima-wound No No Skin Appearance) -Ulcer Cleansing Wound Cleanser Soap and Water -Foul Odor after Cleansing No No -Anesthetic Used 5% Lidocaine 5% Lidocaine Gel Gel Lower Limb Edema Present Yes Left Calf (cm) 30 30.5 Left Ankle (cm) 19.2 19.5 - Nurse 2 - General Ulcer CM Notes Start: 06/12/22 09:26 Freq: Status: Active Protocol: Activity Type Activity Date Activity User E-sign Co-sign Detail Recorded Client Recorded Date Recorded By Document 06/12/22 10:16 [id number] 06/12/22 10:18 Document 06/26/22 14:36 [id number] 06/26/22 14:37 06/12/22 06/26/22 10:16 14:36 Wound Center Nurse 2 #1- L inferior yoder -Time 10:16 14:37 -Correct Patient Yes Yes -Correct Side, Site, Position Yes Yes -Correct Procedure Yes Yes -Procedure Performed Yes Yes -Type of Procedure Debridement Debridement -Clinical Debridement Subcutaneous Subcutaneous -Tissue Removed Subcutaneous Subcutaneous -Post Debridement (cm) - Length 0.2 0.3 -Post Debridement (cm) - Width 0.3 0.3 -Post Debridement (cm) - Depth 0.5 0.5 -Total Square (Post) (cm) 0.06 0.09 -Area of Debridement (cm) - Length 0.2 0.3 -Area of Debridement (cm) - Width 0.3 0.3 -Total Square (Area) (cm) 0.06 0.09 -Tunneling No No -Undermining/Tunneling No No -Circular Undermining No No -Wound/Ulcer Outcome Not Healed Not Healed -Ulcer Cleansing Rinsed/ Rinsed/ Irrigated with Irrigated with Saline Saline -Foul Odor after Cleansing No No -Bioengineered Tissue No No -Bleeding Controlled with Pressure Pressure -Treatment Response Procedure Procedure Tolerated Well Tolerated Well -Offloading No No -Debridement - Subq, 1st 20sq cm Yes Yes Pain Scale: 0-10 Numeric Is Patient Pain Free? Yes Yes - Nurse 3 - General Ulcer D/C NN Start: 06/12/22 09:26 Freq: Status: Active Protocol: Activity Type Activity Date Activity User E-sign Co-sign Detail Recorded Client Recorded Date Recorded By Document 06/12/22 10:33 [facility] [id number] 06/12/22 10:34 [facility] Document 06/26/22 14:54 DL [id number] 06/26/22 14:55 DL 06/12/22 06/26/22 10:33 14:54 Wound Care Nurse 3 #1- L inferior yoder -Ulcer Cleansing Rinsed/ Rinsed/ Irrigated with Irrigated with Saline Saline -Foul Odor after Cleansing No No -Primary Dressing Applied Aquacel AG 2x2 -Other Dressing hydrogel -Primary Dressing Covered/Secured with Dry Gauze & Dry Gauze Roll Gauze, Secured with Tape -Aquacel AG 2x2 1 Left -Multi-Layered Wrap Application Multi-Layer Comp - Left ($) -Tubular Bandage Single Layer -Size of Tubigrip Used Size C -Size C ($) 1 -Stockings Yes Treatment Response Procedure Procedure Tolerated Well Tolerated Well Pain Scale: 0-10 Numeric Is Patient Pain Free? Yes Yes WC - Visit Discharge Discharge Condition Stable Stable Ambulatory Status Ambulatory Ambulatory Transportation Private Auto Private Auto Assessment/Plan Assessment/Plan (1) Ulcer of left lower extremity with fat layer exposed: CODE(S): L97.922 - Non-pressure chronic ulcer of unspecified part of left lower leg with fat layer exposed (2) Delayed wound healing: CODE(S): T14.8XXD - Other injury of unspecified body region, subsequent encounter (3) Osteomyelitis: CODE(S): M86.9 - Osteomyelitis, unspecified (4) Venous insufficiency (chronic) (peripheral): CODE(S): I87.2 - Venous insufficiency (chronic) (peripheral) (5) Localized edema: CODE(S): R60.0 - Localized edema (6) Rheumatoid arthritis: CODE(S): M06.9 - Rheumatoid arthritis, unspecified (7) Tobacco use disorder: CODE(S): F17.200 - Nicotine dependence, unspecified, uncomplicated (8) Malnutrition: CODE(S): E46 - Unspecified protein-calorie malnutrition (9) Body mass index [BMI] 19.9 or less, adult: CODE(S): Z68.1 - Body mass index [BMI] 19.9 or less, adult (10) Injury of left foot: CODE(S): S99.922A - Unspecified injury of left foot, initial encounter (11) Difficulty in walking, not elsewhere classified: CODE(S): R26.2 - Difficulty in walking, not elsewhere classified (12) Nondisplaced fracture of fifth metatarsal bone, left foot, subsequent encounter for fracture with routine healing: CODE(S): S92.355D - Nondisplaced fracture of fifth metatarsal bone, left foot, subsequent encounter for fracture with routine healing PLAN: Plan Patient evaluated at the wound healing center today. Debridement was performed today as previously documented. Wound care - Collagen hydrogel covered with gauze to the ulcer. Will place 3M 2 layer wrap to her left lower leg to help get some of the edema under control. Keep leg elevated to help control swelling. Wound culture obtained which was positive for MRSA. She was referred to Dr. Holt, [place], for treatment. She started the Kimyrsa infusion this week. Imaging: Left leg xrays were recently updated (02-20-22) - there is a healed fracture in the mid third of the left tibia but apparently there is periosteal reaction and what appears to be chronic osteomyelitis with possibility of sinus tract. Will obtain an MRI for further imaging of her left anterior leg non healing ulcer. She has a history of osteomyelitis. I have been trying to do a peer to peer with [facility] to get the MRI approved, but they have not called me back. Vascular / edema: She has nonpalpable pulses and lack of hair. She also has questionable claudication presentation. she had noninvasive vascular studies including MARI, segmental thigh and leg pressure, PVR, and systolic toe pressure. The results were reviewed and she has left biphasic waveforms, left MARI of 1.2, and left toe brachial index is 0.72. The segmental thigh and leg pressures were not obtained. There is not a difference of over 30 mmHg when compared to arm pressures. She is also advised to discontinue all tobacco products to optimize healing and limb salvage opportunities. Due to ongoing lack of healing, a vascular referral was provided for Dr. Rdz. She started intervention and was advised to follow-up with her scheduled ultrasound as advised. Her treatment is mainly for venous insufficiency at this time. She has significant delays in healing. We discussed tobacco cessation and how this impairs healing. She has some muscle wasting and delayed healing and nutritional supplementation would also be beneficial. She is underweight and is not consuming adequate micro or macronutrients. Encouraged to supplement of protein intake. She was referred for a nutrition referral to optimize healing. She has rheumatoid arthritis and understands this may also delay her healing. S he was urged to reduce smoking; discussed at length again today. Her outcome prognosis is poor with continued tobacco use. Follow up one week. She is to call or come in sooner if she develops any i ssues.
[2022-07-03 09:27] VITALS: BP 137/78; PULSE 86; RESP 18; TEMP 36.1; BMI 20.5
--- NOTE | 2022-07-03 12:34 | PN.PCM_ITS ---
History of Present Illness Date of Service: 07/03/22 Chief Complaint: left leg ulcer History of Wound: This 61-year-old female was seen today for left leg ulcer. She denies fever, chill, nausea, vomiting, diarrhea. She tries to wear compression garment. She denies leg pain, redness, or odor. She denies trauma or recent increase in swelling. She had venous intervention with vascular specialist, Dr. Rdz. She has been wearing her compression stocking as advised anytime she is not wearing a 3M 2L compression dressing. She continues to smoke and has vascular disease. She also has rheumatoid arthritis. She went for a denial management representative referral and is struggling to make the recommended changes. She was given a prescription for Jay and Glucerna previously. She also had an injury to her left foot while stepping down she had some popping and cracking within the past month. She was fitted with a cam walker boot and she has reduction in pain since she has been wearing this. She has a Sullivan fracture and is [facility] up [facility]. Progress of Wound: Left anterior leg ulcer is very small, hole with some depth, no improvement in the ulcer.? She is experiencing a small amount of drainage. Mima wound is stable. She wears single layer tubigrip for compression. Her edema improved with 3M 2 layer wrap. She was recently in the ED and was diagnosed with a kidney stone. Objective Data Objective Data Vital Signs: Vital Signs Temp Pulse Resp BP O2 Del Method 97 F L 86 18 137/78 H Room Air 07/03/22 09:27 07/03/22 09:27 07/03/22 09:27 07/03/22 09:27 07/03/22 09:27 Oxygen Delivery Method Room Air Weight: 95 lb Body Mass Index (BMI) 20.5 Charges/Coding Procedures Integumentary 111xxx-113xx: [id number] Miryam subq tissue 20 sq cm/< Debridement Note Debridement Note Wound debrided: anterior leg ulcer Laterality: Left Type of Debridement: Excisional debridement Anesthesia Used: 5% Lidocaine Gel Depth: Down to and including healthy tissue and in the subcutaneous layer Percentage of wound debrided: 100 Instrument Used: - (1 mm curette) Tissue Removed: Devitalized tissue and slough Severity: Fat Layer Exposed Amount of bleeding with debridement: Mild Bleeding Controlled with: Compression and gauze Patient tolerated procedure: Patient tolerated procedure well Post-Debridement Measurements and Additional Note: Post-Debridement Measurements/Treatment WC - Nurse 1 - General Ulcer Assessment Start: 06/12/22 09:26 Freq: Status: Active Protocol: ELENA Activity Type Activity Date Activity User E-sign Co-sign Detail Recorded Client Recorded Date Recorded By Document 06/12/22 09:53 RB Desktop 06/12/22 09:55 RB Document 06/26/22 14:14 BMF [id number] 06/26/22 14:18 BMF Document 07/03/22 09:27 UT [id number] 07/03/22 09:36 MT 06/12/22 06/26/22 07/03/22 09:53 14:14 09:27 - Today's Visit Information Type of service Follow-up Visit Follow-up Visit Follow-up Visit (Physician/FILLER SHREDDER HELPER (Physician/FILLER SHREDDER HELPER (Physician/FILLER SHREDDER HELPER ) ) ) Arrival Mode Ambulatory Ambulatory Ambulatory Transfer Assistance None None Patient Identification Verified (Name & Yes Yes ) Patient Requires Transmission-Based No No Precautions Height and Weight Body Mass Index (BMI) 20.5 20.5 20.5 BMI Classification Normal Normal Normal Vital Signs Temperature (97.8 F-99.1 F) 98 F 97 F L Temperature Source Temporal Temporal Pulse Rate (60-100) 94 81 86 Pulse Location Monitor Monitor Monitor Respiratory Rate (12-18) 18 16 18 Respiratory rate source Observation Observation Observation Oxygen Delivery Method Room Air Room Air Blood Pressure (90/60-120/80) 137/84 H 147/63 H 137/78 H Blood Pressure Mean (mm Hg) 101 91 97 Source Monitor Monitor Monitor Position Semi-Fowlers Sitting Sitting Blood Pressure Location Left Arm Left Arm History Since Last Visit- (Skip if this is Patient's initial visit) Have you changed medications since your No Yes No last visit? Any new allergies or adverse reactions No No No Had a fall/change in ADL's that may No No No increase risk of falls Signs or symptoms of abuse and/or No No neglect since last visit Have you been in the hospital since your No No last visit? Has dressing in place as prescribed Yes No Has compression in place as prescribed No Yes Has offloadiing in place as prescribed Yes Yes Experienced any changes in pain level or No No management Left Footwear Regular Shoe Regular Shoe Right Footwear Regular Shoe Regular Shoe Pain Scale: 0-10 Numeric Is Patient Pain Free? Yes Yes Yes WC - Nurse 1 - General Ulcer Measurement Start: 06/12/22 09:26 Freq: Status: Active Protocol: Activity Type Activity Date Activity User E-sign Co-sign Detail Recorded Client Recorded Date Recorded By Document 06/12/22 09:53 RB Desktop 06/12/22 09:55 RB Document 06/26/22 14:14 [facility] [id number] 06/26/22 14:18 BM Document 07/03/22 09:27 UT [id number] 07/03/22 09:36 MT 06/12/22 06/26/22 07/03/22 09:53 14:14 09:27 Wound Center Nurse 1 #1- L inferior yoder -Combined with other wound No No -Current Size (cm) - Length 0.1 0.3 0.1 -Current Size (cm) - Width 0.1 0.2 0.1 -Current Size (cm) - Depth 0.1 0.4 0.1 -Total Square Cm 0.01 0.06 0.01 -Photo Taken Yes No -Epithelialization None Present -Tunneling No No -Undermining/Tunneling No No -Circular Undermining No No -Exudate Amt Small Medium None Present -Exudate Type Serosanguineous Serosanguineous -Wound Margin Distinct, Distinct, Flat & Intact Outline Outline Attached Attached -Granulation Amt Large (67-100%) Medium (34-66%) Large (67-100%) -Granulation Quality [place] Red Pale,[place] -Slough/Fibrin Yes Yes No -Necrosis Amt Large (67-100%) Medium (34-66%) -Necrotic Tissue Type Adherent Slough Adherent Slough -Structure Exposed N/A -Texture (Mima-wound Skin Appearance) Assessed, Assessed, Assessed Excoriation Localized Edema ,Scarring -Moisture (Mima-wound Skin Appearance) Assessed Assessed,Dry/ Assessed Scaly -Color (Mima-wound Skin Appearance) Assessed Assessed Assessed -Temperature (Mima-wound Skin No Abnormality No Abnormality No Abnormality Appearance) (Pt Warm) (Pt Warm) (Pt Warm) -Tenderness on Palpation (Mima-wound No No No Skin Appearance) -Ulcer Cleansing Wound Cleanser Soap and Water Soap and Water -Foul Odor after Cleansing No No No -Anesthetic Used 5% Lidocaine 5% Lidocaine 4% Lidocaine Gel Gel Solution Lower Limb Edema Present Yes Left Calf (cm) 30 30.5 29 Left Ankle (cm) 19.2 19.5 20.5 WC - Nurse 2 - General Ulcer CM Notes Start: 06/12/22 09:26 Freq: Status: Active Protocol: Activity Type Activity Date Activity User E-sign Co-sign Detail Recorded Client Recorded Date Recorded By Document 06/12/22 10:16 [id number] 06/12/22 10:18 Document 06/26/22 14:36 [id number] 06/26/22 14:37 Document 07/03/22 09:45 Laptop 07/03/22 09:48 06/12/22 06/26/22 07/03/22 10:16 14:36 09:45 Wound Center Nurse 2 #1- L inferior yoder -Time 10:16 14:37 09:47 -Correct Patient Yes Yes Yes -Correct Side, Site, Position Yes Yes Yes -Correct Procedure Yes Yes Yes -Procedure Performed Yes Yes Yes -Type of Procedure Debridement Debridement Debridement -Clinical Debridement Subcutaneous Subcutaneous Subcutaneous -Tissue Removed Subcutaneous Subcutaneous Subcutaneous -Post Debridement (cm) - Length 0.2 0.3 0.2 -Post Debridement (cm) - Width 0.3 0.3 0.3 -Post Debridement (cm) - Depth 0.5 0.5 0.5 -Total Square (Post) (cm) 0.06 0.09 0.06 -Area of Debridement (cm) - Length 0.2 0.3 0.2 -Area of Debridement (cm) - Width 0.3 0.3 0.3 -Total Square (Area) (cm) 0.06 0.09 0.06 -Tunneling No No No -Undermining/Tunneling No No No -Circular Undermining No No No -Wound/Ulcer Outcome Not Healed Not Healed Not Healed -Ulcer Cleansing Rinsed/ Rinsed/ Rinsed/ Irrigated with Irrigated with Irrigated with Saline Saline Saline -Foul Odor after Cleansing No No No -Bioengineered Tissue No No No -Bleeding Controlled with Pressure Pressure Pressure -Treatment Response Procedure Procedure Procedure Tolerated Well Tolerated Well Tolerated Well -Offloading No No No -Debridement - Subq, 1st 20sq cm Yes Yes Yes Pain Scale: 0-10 Numeric Is Patient Pain Free? Yes Yes Yes - Nurse 3 - General Ulcer D/C NN Start: 06/12/22 09:26 Freq: Status: Active Protocol: Activity Type Activity Date Activity User E-sign Co-sign Detail Recorded Client Recorded Date Recorded By Document 06/12/22 10:33 [facility] [id number] 06/12/22 10:34 BM Document 06/26/22 14:54 DL [id number] 06/26/22 14:55 DL Document 07/03/22 09:59 UT [id number] 07/03/22 10:00 MT 06/12/22 06/26/22 07/03/22 10:33 14:54 09:59 Wound Care Nurse 3 #1- L inferior yoder -Ulcer Cleansing Rinsed/ Rinsed/ Irrigated with Irrigated with Saline Saline -Foul Odor after Cleansing No No -Primary Dressing Applied Aquacel AG 2x2 Aquacel AG 2x2 -Other Dressing hydrogel -Primary Dressing Covered/Secured with Dry Gauze & Dry Gauze Dry Gauze, Roll Gauze, Secured with Secured with Tape Tape -Aquacel AG 2x2 1 1 Left -Multi-Layered Wrap Application Multi-Layer Comp - Left ($) -Tubular Bandage Single Layer Double Layer -Size of Tubigrip Used Size C Size D -Size C ($) 1 -Size D ($) 2 -Stockings Yes Treatment Response Procedure Procedure Tolerated Well Tolerated Well Pain Scale: 0-10 Numeric Is Patient Pain Free? Yes Yes Yes - Visit Discharge Discharge Condition Stable Stable Stable Ambulatory Status Ambulatory Ambulatory Ambulatory Transportation Private Auto Private Auto Private Auto Medication Reconcilliation completed & No provided to patient/care provider Clinical Summary of Care Provided Yes Notes: pt verbalized understanding of wound dressing. Assessment/Plan Assessment/Plan (1) Ulcer of left lower extremity with fat layer exposed: CODE(S): L97.922 - Non-pressure chronic ulcer of unspecified part of left lower leg with fat layer exposed (2) Delayed wound healing: CODE(S): T14.8XXD - Other injury of unspecified body region, subsequent encounter (3) Osteomyelitis: CODE(S): M86.9 - Osteomyelitis, unspecified (4) Venous insufficiency (chronic) (peripheral): CODE(S): I87.2 - Venous insufficiency (chronic) (peripheral) (5) Localized edema: CODE(S): R60.0 - Localized edema (6) Rheumatoid arthritis: CODE(S): M06.9 - Rheumatoid arthritis, unspecified (7) Tobacco use disorder: CODE(S): F17.200 - Nicotine dependence, unspecified, uncomplicated (8) Malnutrition: CODE(S): E46 - Unspecified protein-calorie malnutrition (9) Body mass index [BMI] 19.9 or less, adult: CODE(S): Z68.1 - Body mass index [BMI] 19.9 or less, adult (10) Injury of left foot: CODE(S): S99.922A - Unspecified injury of left foot, initial encounter (11) Difficulty in walking, not elsewhere classified: CODE(S): R26.2 - Difficulty in walking, not elsewhere classified (12) Nondisplaced fracture of fifth metatarsal bone, left foot, subsequent encounter for fracture with routine healing: CODE(S): S92.355D - Nondisplaced fracture of fifth metatarsal bone, left foot, subsequent encounter for fracture with routine healing PLAN: Plan Patient evaluated at the wound healing center today. Debridement was performed today as previously documented. Wound care - Aquacel-Ag wicked into the ulcer covered with gauze to the ulcer daily after washing with soap and water. Double tubigrip for compression. Will measure and order compression stockings for her. Keep leg elevated to help control swelling. Wound culture obtained which was positive for MRSA. She was referred to Dr. Holt, [place], for treatment. She started the Kimyrsa infusion this week. Imaging: Left leg xrays were recently updated (02-20-22) - there is a healed fracture in the mid third of the left tibia but apparently there is periosteal reaction and what appears to be chronic osteomyelitis with possibility of sinus tract. Will obtain an MRI for further imaging of her left anterior leg non healing ulcer. She has a history of osteomyelitis. I have been trying to do a peer to peer with [facility] to get the MRI approved, but they have not called me back. Vascular / edema: She has nonpalpable pulses and lack of hair. She also has questionable claudication presentation. she had noninvasive vascular studies including MARI, segmental thigh and leg pressure, PVR, and systolic toe pressure. The results were reviewed and she has left biphasic waveforms, left MARI of 1.2, and left toe brachial index is 0.72. The segmental thigh and leg pressures were not obtained. There is not a difference of over 30 mmHg when compared to arm pressures. She is also advised to discontinue all tobacco products to optimize healing and limb salvage opportunities. Due to ongoing lack of healing, a vascular referral was provided for Dr. Rdz. She started intervention and was advised to follow-up with her scheduled ultrasound as advised. Her treatment is mainly for venous insufficiency at this time. She has significant delays in healing. We discussed tobacco cessation and how this impairs healing. She has some muscle wasting and delayed healing and nutritional supplementation would also be beneficial. She is underweight and is not consuming adequate micro or macronutrients. Encouraged to supplement of protein intake. She was referred for a nutrition referral to optimize healing. She has rheumatoid arthritis and understands this may also delay her healing. She was urged to reduce smoking; discussed at length again today. Her outcome prognosis is poor with continued tobacco use. Follow up one week. She is to call or come in sooner if she develops any issues.
== END 2022-07-08 23:59 | disposition home or self-care (01) ==
LOC: WC 09:30
PROVIDERS: Referring Provider Podiatrist; Visit Provider Nurse Practitioner Family
DX: I87.2 Venous insufficiency (chronic) (peripheral) (principal); L97.822 Non-pressure chronic ulcer of other part of left lower leg with fat layer exposed; E46 Unspecified protein-calorie malnutrition; M06.9 Rheumatoid arthritis, unspecified; M86.9 Osteomyelitis, unspecified; R60.0 Localized edema; R26.2 Difficulty in walking, not elsewhere classified; F17.200 Nicotine dependence, unspecified, uncomplicated; Z68.1 Body mass index [BMI] 19.9 or less, adult; S92.355D Nondisplaced fracture of fifth metatarsal bone, left foot, subsequent encounter for fracture with routine healing; T14.8XXD Other injury of unspecified body region, subsequent encounter
CPT/HCPCS: 11042; 29581; 97803

== ENCOUNTER 2022-07-03 10:32 | Outpatient (RCR) | payer MEDICAID, SELFPAY ==
[2022-04-08 00:34] VITALS: BP 131/68; PULSE 77; RESP 18; TEMP 36.7
== END 2022-07-08 23:59 ==
LOC: NS 10:32
PROVIDERS: Referring Provider Podiatrist; Visit Provider Podiatrist
DX: Z71.3 Dietary counseling and surveillance (principal); E46 Unspecified protein-calorie malnutrition; Z68.1 Body mass index [BMI] 19.9 or less, adult; M06.9 Rheumatoid arthritis, unspecified
CPT/HCPCS: 97803

== ENCOUNTER 2022-07-07 21:57 | Emergency (ER) | payer MEDICAID, SELFPAY ==
[2022-07-07 22:01] VITALS: BP 158/66; PULSE 90; RESP 18; TEMP 36.8; O2SAT 99; BMI 20.9
[2022-07-07 22:07] VITALS: BP 158/66; PULSE 88; RESP 16; TEMP 36.8; O2SAT 99
--- NOTE | 2022-07-07 22:19 | EKG12_ITS ---
Test Reason : CHEST OTHER Blood Pressure : / mmHG Vent. Rate : 079 BPM Atrial Rate : 079 BPM P-R Int : 162 ms QRS Dur : 078 ms QT Int : 390 ms P-R-T Axes : 076 068 080 degrees QTc Int : 447 ms Normal sinus rhythm Normal ECG Confirmed by ERNA WOOD, MARIYA ([id number]), market editor LIZETH REYES ([id number]) on 07/09/2022 1:08:38 PM Referred By: OLEKSANDR Confirmed By:MARIYA UMANZOR MD
--- NOTE | 2022-07-07 22:35 | EX.ED.DYSGE1 ---
HPI History of Present Illness Chief Complaint: Chest Other Detail of Chief Complaint: Heart racing and ran out of of anxiety medicine Informant: patient Narrative Narrative: Patient presents the emergency department complaint of heart racing today. Patient states that she ran out of her anxiety medication which she normally takes Ativan. She does feel anxious and jittery. She has a dry mouth. She denies any chest pain. She denies recent illness. Patient does take Dilantin for history of seizure disorder. Prior similar symptoms: Yes PFSH PFSH Medical History Anxiety Depression FH: bilateral hip replacements Myocardial infarct Seizures Smoker Ulcer of left yoder limited to breakdown of skin Home Medications alendronate 70 mg tablet 70 mg PO SA BONES 12/22/16 [History Last Taken 06/10/20] ipratropium 20 mcg-albuterol 100 mcg/actuation mist for inhalation (Combivent Respimat) 1 puff inhalation Q4H SOB 12/22/16 [History Last Taken Unknown] lorazepam 0.5 mg tablet 0.5 mg PO BID ANXIETY 12/22/16 [History Last Taken 06/12/20] omeprazole 10 mg capsule,delayed release 40 mg PO QHS GERD 12/22/16 [History Last Taken 06/11/20] phenytoin sodium extended 100 mg capsule 100 mg PO BID@0900,1700 SEIZURES 12/22/16 [History Last Taken 06/12/20] acetaminophen 500 mg tablet 500 mg PO Q6H PRN PRN Pain Or Fever 06/12/20 [History Last Taken Unknown] aclidinium bromide 400 mcg/actuation breath activated powder inhaler 400 mcg IH BID SOB 06/12/20 [History Last Taken 06/12/20] ascorbic acid (vitamin C) 500 mg tablet 500 mg PO DAILY SUPPLEMENT 06/12/20 [History Last Taken 06/12/20] benzonatate 100 mg capsule 100 mg PO DAILY PRN Cough 06/12/20 [History Last Taken Unknown] cyclobenzaprine 10 mg tablet 10 mg PO BID PRN PRN BACK 06/12/20 [History Last Taken Unknown] diclofenac sodium 75 mg tablet,delayed release 75 mg PO BID PRN PRN BACK PAIN 06/12/20 [History Last Taken Unknown] fluticasone propionate 100 mcg/actuation blister powder for inhalation 2 puff inhalation BID COPD 06/12/20 [History Last Taken 06/12/20] folic acid 1 mg tablet 1 mg PO BID SUPPLEMENT 06/12/20 [History Last Taken 06/12/20] loratadine 10 mg tablet 10 mg PO DAILY ALLERGIES 06/12/20 [History Last Taken 06/12/20] paroxetine HCl 20 mg tablet 20 mg PO DAILY DEPRESSION 06/12/20 [History Last Taken 06/12/20] pravastatin 20 mg tablet 20 mg PO QHS CHOLESTEROL 06/12/20 [History Last Taken 06/11/20] cholecalciferol (vitamin D3) 25 mcg (1,000 unit) tablet 5,000 unit PO DAILY 06/15/20 [Rx Last Taken Unknown] ondansetron 4 mg disintegrating tablet 4 mg PO Q8H PRN nausea and vomiting #10 tabs 07/02/22 [Rx Last Taken Unknown] oxycodone-acetaminophen 5 mg-325 mg tablet (Percocet) 1 tab PO Q6H PRN pain 3 days #10 tabs 07/02/22 [Rx Last Taken Unknown] lorazepam 0.5 mg tablet (Ativan) 0.5 mg PO BID PRN anxiety #10 tabs 07/08/22 [Rx Last Taken Unknown] omeprazole 40 mg capsule,delayed release 40 mg PO DAILY #30 caps 07/08/22 [Rx Last Taken Unknown] Allergy/AdvReac Type Severity Reaction Status Date / Time Penicillins Allergy Severe Shortness Verified 07/02/22 16:22 of breath amoxicillin Allergy Hives Verified 07/02/22 16:22 aspirin AdvReac PT UNSURE Verified 07/02/22 16:22 OF REACTION Surgical History H/O repair of right rotator cuff History of cholecystectomy Social History Smoking Status: Current every day smoker tobacco type: cigarettes ROS ROS ED ROS Narrative Dry mouth, feels jittery Review of Systems ROS Unobtainable: other Constitutional Constitutional ED: Reports lethargy; Denies chills, fever(s), sweats or weight loss Eyes Eyes: Denies blurry vision, change in vision or diplopia ENT ENT ED: Denies rhinorrhea or sore throat Cardiovascular Cardiovascular: Reports racing heartbeat; Denies chest pain or orthopnea Respiratory/Chest Respiratory/Chest: Denies cough, dyspnea, dyspnea on exertion, orthopnea or sputum Gastrointestinal Gastrointestinal: Denies abdominal pain, diarrhea, nausea or vomiting Genitourinary Genitourinary ED: Denies dysuria, hematuria or urinary frequency Musculoskeletal Musculoskeletal: Denies arthralgias, back pain, myalgias or neck pain Integumentary Denies abscess, Abrasions or rash Neurologic Neurologic: Denies headache(s) or weakness Psychiatric Psychiatric: Denies anxiety, depression or suicidal thoughts Endocrine Endocrinology: Denies polydipsia, polyphagia or polyuria Hematologic/Lymphatic Hematologic/Lymphatic: Denies easy bleeding, easy bruising or lymphadenopathy Allergic/Immunologic Allergic/Immunologic ED: Denies mouth swelling, tongue swelling or urticaria EXAM Physical Exam Const Vital Signs: 07/07/22 22:01 07/07/22 22:05 07/07/22 22:07 Temperature 98.2 F 98.2 F Temperature Source Oral Oral Pulse Rate 90 88 Respiratory Rate 18 16 Respiratory Effort Normal Non-Labored Blood Pressure 158/66 H 158/66 H Blood Pressure Mean 96 96 Pulse Ox 99 99 Oxygen Delivery Method Room Air Room Air 07/07/22 22:58 Temperature Temperature Source Pulse Rate Respiratory Rate Respiratory Effort Blood Pressure Blood Pressure Mean Pulse Ox Oxygen Delivery Method Room Air Positive well nourished and well developed General Appearance ED: well developed and NAD HEENT Reports TM's clear and moist mucous membranes normocephalic and atraumatic; Negative for trauma or tenderness Tympanic Membrane ED: Yes TM's clear Eyes PERRL and EOMs intact bilaterally General Eye ED: Negative for pale conjunctiva or scleral icterus Neck no lymphadenopathy, supple and no JVD General: Negative for tenderness Chest Wall inspection of chest normal and palpation of chest normal Chest: Negative for tenderness Resp normal respiratory effort and clear to auscultation bilaterally Effort and Inspection: Negative for respiratory distress or pain with movement Auscultation: Negative for rhonchi, wheezes or diminished lung sounds Cardio regular rate, regular rhythm, S1 normal heart sound, S2 normal heart sound and no murmurs Peripheral Pulses: pulses 2+ throughout GI normal to inspection, nondistended, normoactive bowel sounds, soft to palpation, non-tender, non-distended and no masses Back/Spine no CVA tenderness and no thoracic nor lumbar tenderness Extremity normal to inspection General Extremety ED: Negative for edema General Extremity: Negative for edema Neuro oriented x3, CN's II-XII intact bilaterally, no sensory deficits noted and gait normal Sensorium / Orientation: awake, alert, oriented to person, oriented to place and oriented to time Motor Exam: strength 5/5 throughout and strength abnormal Psych mental status grossly normal Skin no rashes or lesions noted and no wounds MDM MDM MDM Narrative Medical decision making narrative: I will established on arrival. Patient was given Ativan 1 mg IV and she felt symptomatically improved. At this point she will be discharged to home with a suspect she likely had anxiety. I will give her a prescription for her Ativan as well as omeprazole which she ran out of. Patient advised to follow-up with her primary care physician 3 to 5 days. Lab Data Attestation: I reviewed the patient's lab results. Labs: Laboratory Results - last 24 hr 07/07/22 07/07/22 07/07/22 22:35 22:35 22:50 WBC 7.1 RBC 3.84 L Hgb 11.8 L Hct 34.1 L MCV 88.8 MCH 30.7 MCHC 34.6 RDW Std Deviation 41.1 RDW Coeff of Brittany 12.8 Plt Count 115 L MPV 10.2 Immature Gran % (Auto) 0.100 Neut % (Auto) 72.9 H Lymph % (Auto) 18.4 L [place] % (Auto) 7.7 Eos % (Auto) 0.6 Baso % (Auto) 0.3 Absolute Neuts (auto) 5.2 Absolute Lymphs (auto) 1.31 Nucleated RBC % 0 Sodium 134 L Potassium 3.1 L Chloride 101 Carbon Dioxide 26.0 Anion Gap 7 BUN 5 L Creatinine 0.55 Estim Creat Clear Calc 76.99 Est GFR (MDRD) Af Amer 144 Est GFR (MDRD) Non-Af 119 BUN/Creatinine Ratio 9.1 L Glucose 205 H Calcium 8.5 Troponin I High Sens 10 Phenytoin 11.7 Radiography Diagnostic Testing: Clinical Impression(s) from Imaging Studies Chest X-Ray 07/07/22 22:52 IMPRESSION: No radiographic evidence of acute cardiopulmonary disease. Electronically Signed: Nicolás Acharya MD at 23:12 EDT , 1 view chest x-ray obtained interpreted by myself no acute disease process. Radiology in agreement. EKG Initial EKG: Attestation: I personally reviewed and interpreted this EKG as follows: Comments: Sinus rhythm with a rate of 79 bpm with no acute ST segment changes Discharge Plan Triage Chief Complaint: Chest Other ED Provider: Josr Quintero Dx/Rx/DC Orders Clinical Impression: Anxiety Instructions: ED Anxiety Reaction Prescriptions: New omeprazole 40 mg capsule,delayed release(DR/EC) 40 mg PO DAILY Qty: 30 0RF lorazepam [Ativan] 0.5 mg tablet 0.5 mg PO BID PRN (Reason: anxiety) Qty: 10 0RF No Action alendronate 70 MG tablet 70 mg PO SA phenytoin sodium extended 100 MG capsule 100 mg PO BID@0900,1700 omeprazole 10 MG capsule 40 mg PO QHS lorazepam 0.5 MG tablet 0.5 mg PO BID Combivent Respimat 1 PUFF inhaler 1 puff inhalation Q4H cyclobenzaprine 10 MG tablet 10 mg PO BID PRN PRN (Reason: BACK) ascorbic acid (vitamin C) 500 MG tablet 500 mg PO DAILY benzonatate 100 MG capsule 100 mg PO DAILY PRN (Reason: Cough) paroxetine HCl 20 MG tablet 20 mg PO DAILY diclofenac sodium 75 MG tablet 75 mg PO BID PRN PRN (Reason: BACK PAIN) folic acid 1 MG tablet 1 mg PO BID pravastatin 20 MG tablet 20 mg PO QHS aclidinium bromide 400 MCG aerosol powdr breath activated 400 mcg IH BID acetaminophen 500 MG tablet 500 mg PO Q6H PRN PRN (Reason: Pain Or Fever) fluticasone propionate 100 mcg/actuation blister with device 2 puff inhalation BID loratadine 10 MG tablet 10 mg PO DAILY cholecalciferol (vitamin D3) 1,000 UNIT tablet 5,000 unit PO DAILY 0RF oxycodone-acetaminophen [Percocet] 5-325 mg tablet 1 tab PO Q6H PRN (Reason: pain) 3 Days Qty: 10 0RF ondansetron 4 mg tablet,disintegrating 4 mg PO Q8H PRN (Reason: nausea and vomiting) Qty: 10 0RF Primary Care Provider: ASHA MAYORGA Referrals: ASHA MAYORGA [Other] Disposition Disposition: Home, Self Care
[2022-07-07 22:47] LABS: Absolute Lymphocyte Count 1.31 X10^3/uL (0.83-4.51); Absolute Neutrophil Count 5.2 X10^3/uL (2.0-7.7); Basophil# 0.02 X10^3/uL; Basophil% 0.3 % (0-1); Eosinophil# 0.04 X10^3/uL; Eosinophils% 0.6 % (0-5); Hematocrit 34.1 % (37-47); Hemoglobin 11.8 g/dL (12.0-15.0); Lymphocyte # 1.31 X10^3/ul (0.83-4.51); Lymphocyte % 18.4 % (19-41); Mean Corp Hgb Conc 34.6 g/dL (32-36); Mean Corpuscular Hgb 30.7 pg (27.0-32.0); Mean Corpuscular Volume 88.8 fL (81-99); Mean Platelet Vol. 10.2 fl (6.2-12.0); Monocyte# 0.55 X10^3/uL; Monocyte% 7.7 % (0-10); NRBC Flagged by Analyzer 0 % (0-5); Neutrophil % 72.9 % (47-70); Platelet Count 115 K/mm3 (150-450); RBC Distribution Width CV 12.8 % (11.6-14.6); RBC Distribution Width SD 41.1 fl (35.1-43.9); Red Blood Count 3.84 M/mm3 (4.2-5.4); White Blood Count 7.1 K/mm3 (4.4-11.0)
--- NOTE | 2022-07-07 22:52 | RAD_ITS ---
EXAM: XR CHEST, 1 VIEW CLINICAL INDICATION: chest pain TECHNIQUE: Frontal view of the chest. This report was created using [employer] report generation technology. COMPARISON: 06/12/2020 FINDINGS: LUNGS AND PLEURAL SPACES: Unremarkable. No consolidation or edema. No pneumothorax. No effusion. HEART: Unremarkable. Cardiac silhouette not enlarged. MEDIASTINUM: Central airways and mediastinal contour are unremarkable. BONES/JOINTS: Unremarkable. SOFT TISSUES: Unremarkable. RAD/Chest 1 View (Portable) IMPRESSION: No radiographic evidence of acute cardiopulmonary disease. Electronically Signed: Nicolás Acharya MD at 23:12 EDT ,
[2022-07-07] MEDS: LORazepam 2 MG/ML Syringe 1 MG IV (22:57)
[2022-07-07] MEDS: 0.9% Normal Saline 1,000 ML 150 ML IV (22:58)
[2022-07-07 23:02] LABS: Anion Gap 7 (5-15); BUN 5 mg/dL (7-18); BUN/Creat Ratio 9.1 RATIO (10-20); Calcium,Total 8.5 mg/dL (8.5-10.1); Chloride 101 mmol/L (98-107); Creatinine, Serum 0.55 mg/dL (0.55-1.02); EST Glomerular Filtration Rate 119 mL/min (>60); Est Glom Filt Rate - Afr Amer 144 mL/min (>60); Estimated Creatinine Clearance 76.99 ml/min; Glucose 205 mg/dL (74-106); Potassium 3.1 mmol/L (3.5-5.1); Sodium Level 134 mmol/L (136-145); Troponin-I HS (w/2H Reflex) 10 pg/mL (3.0-54.0)
[2022-07-07 23:37] LABS: Phenytoin (Dilantin) Level 11.7 mL (10.0-20.0)
[2022-07-08 00:38] LABS: Reflex Troponin-HS? (from REC) Y
[2022-07-08] MEDS: Potassium Chloride Oral Tablet 20 MEQ 40 MEQ PO (00:41)
[2022-07-08 00:43] VITALS: BP 136/72; PULSE 78; RESP 18; O2SAT 97
== END 2022-07-08 00:44 | disposition home or self-care (01) ==
PROVIDERS: Emergency Provider Emergency Medicine; Visit Provider Emergency Medicine
DX: F41.9 Anxiety disorder, unspecified (principal); G40.909 Epilepsy, unspecified, not intractable, without status epilepticus; F17.210 Nicotine dependence, cigarettes, uncomplicated
CPT/HCPCS: 71045; 80048; 80185; 84484; 85025; 93005; 99285; J7030; A4216

== ENCOUNTER → 2022-07-19 | Outpatient (CLI) | payer MEDICAID, SELFPAY ==
[2022-07-19 09:35] LABS: Hemoglobin A1c 5.7 % (3.8-5.6)
[2022-07-19 09:43] LABS: Anion Gap 4 (5-15); BUN 12 mg/dL (7-18); BUN/Creat Ratio 22.3 RATIO (10-20); Calcium,Total 8.9 mg/dL (8.5-10.1); Chloride 104 mmol/L (98-107); Creatinine, Serum 0.54 mg/dL (0.55-1.02); EST Glomerular Filtration Rate 122 mL/min (>60); Est Glom Filt Rate - Afr Amer 148 mL/min (>60); Glucose 84 mg/dL (74-106); Potassium 4.4 mmol/L (3.5-5.1); Sodium Level 137 mmol/L (136-145)
== END | disposition home or self-care (01) ==
LOC: LAB 08:46
PROVIDERS: Referring Provider Nurse Practitioner Family; Visit Provider Nurse Practitioner Family
DX: L97.922 Non-pressure chronic ulcer of unspecified part of left lower leg with fat layer exposed (principal); E46 Unspecified protein-calorie malnutrition; M86.9 Osteomyelitis, unspecified; Z83.3 Family history of diabetes mellitus; I87.2 Venous insufficiency (chronic) (peripheral); Z72.0 Tobacco use; Z22.322 Carrier or suspected carrier of Methicillin resistant Staphylococcus aureus
CPT/HCPCS: 36415; 80048; 83036

== ENCOUNTER 2022-07-29 13:30 | Outpatient (RCR) | payer MEDICAID, SELFPAY ==
[2022-07-09 00:24] VITALS: BP 137/78; PULSE 86; RESP 18; TEMP 36.1; BMI 20.5
[2022-07-10 08:36] VITALS: BP 147/68; PULSE 87; RESP 16; TEMP 36.1; BMI 20.5
--- NOTE | 2022-07-10 13:45 | PN.PCM_ITS ---
History of Present Illness Date of Service: 07/10/22 Chief Complaint: left leg ulcer History of Wound: This 61-year-old female was seen today for left leg ulcer. She denies fever, chill, nausea, vomiting, diarrhea. She tries to wear compression garment. She denies leg pain, redness, or odor. She denies trauma or recent increase in swelling. She had venous intervention with vascular specialist, Dr. Rdz. She has been wearing her compression stocking as advised anytime she is not wearing a 3M 2L compression dressing. She continues to smoke and has vascular disease. She also has rheumatoid arthritis. 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 She was given a prescription for Jay and Glucerna previously. She also had an injury to her left foot while stepping down she had some popping and cracking within the past month. She was fitted with a cam walker boot and she has reduction in pain since she has been wearing this. She has a Sullivan fracture and is following up [facility]. Progress of Wound: Left medial leg ulcer is larger this week. She states that she started to have increased drainage and then the ulcer got larger. She denies increased pain. Her edema is improved at +1. Able to palpate to the bone at the base of the ulcer. She denies fever, chills, nausea, vomiting. She was in the ED a couple days ago. She states that she ran out of her medication and was having anxiety issues. She is concerned about her blood sugar being elevated when she was in the ED. She states she is concerned about her blood sugars being elevated. Everyone in her family has diabetes and she is now worried that she might have it too. She states that she has been more thirsty lately than normal, but has not noticed an increase in urine output. Objective Data Objective Data Vital Signs: Vital Signs Temp Pulse Resp BP O2 Del Method 97 F L 87 16 147/68 H Room Air 07/10/22 08:36 07/10/22 08:36 07/10/22 08:36 07/10/22 08:36 07/10/22 08:36 Oxygen Delivery Method Room Air Weight: 95 lb Body Mass Index (BMI) 20.5 Charges/Coding Procedures Integumentary 111xxx-113xx: [id number] Miryam subq tissue 20 sq cm/< Physical Exam Const alert, oriented x3 and no apparent distress General Appearance: cooperative Nutritional Appearance: underweight HEENT normocephalic Lymph Lymphatic: no lymphedema noted Resp normal respiratory effort Effort and Inspection: able to speak in complete sentences Cardio regular rate Extremity normal capillary refill Extremity Narrative: Left leg had +1edema, pedal pulse palpable on left. Skin Wound Narrative: Left anterior leg ulcer is much larger today, it has a pink wound bed, it goes to bone. Neuro CN's II-XII intact bilaterally Psych affect normal Debridement Note Debridement Note Wound debrided: anterior leg ulcer Laterality: Left Type of Debridement: Excisional debridement Anesthesia Used: 5% Lidocaine Gel Depth: Down to and including healthy tissue and in the subcutaneous layer Percentage of wound debrided: 100 Instrument Used: 3mm curette Tissue Removed: Devitalized tissue and slough to bone Severity: Fat Layer Exposed Amount of bleeding with debridement: Mild Bleeding Controlled with: Compression and gauze Patient tolerated procedure: Patient tolerated procedure well Post-Debridement Measurements and Additional Note: Post-Debridement Measurements/Treatment - Nurse 1 - General Ulcer Assessment Start: 07/10/22 08:35 Freq: Status: Active Protocol: [email or web address] Activity Type Activity Date Activity User E-sign Co-sign Detail Recorded Client Recorded Date Recorded By Document 07/10/22 08:36 [facility] Desktop 07/10/22 08:39 [facility] 07/10/22 08:36 - Today's Visit Information Type of service 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 ) Arrival Mode Ambulatory Transfer Assistance None Patient Identification Verified (Name & Yes ) Patient Requires Transmission-Based No Precautions Height and Weight Body Mass Index (BMI) 20.5 BMI Classification Normal Vital Signs Temperature (97.8 F-99.1 F) 97 F L Temperature Source Temporal Pulse Rate (60-100) 87 Pulse Location Monitor Respiratory Rate (12-18) 16 Respiratory rate source Observation Oxygen Delivery Method Room Air Blood Pressure (90/60-120/80) 147/68 H Blood Pressure Mean (mm Hg) 94 Source Monitor Position Sitting Blood Pressure Location Right Arm History Since Last Visit- (Skip if this is Patient's initial visit) Have you changed medications since your No last visit? Any new allergies or adverse reactions No Had a fall/change in ADL's that may No increase risk of falls Have you been in the hospital since your Yes last visit? Has dressing in place as prescribed Yes Has compression in place as prescribed Yes Has offloadiing in place as prescribed N/A Experienced any changes in pain level or No management Left Footwear Regular Shoe Right Footwear Regular Shoe Pain Scale: 0-10 Numeric Is Patient Pain Free? Yes YVETTE - Nurse 1 - General Ulcer Measurement Start: 07/10/22 08:35 Freq: Status: Active Protocol: Activity Type Activity Date Activity User E-sign Co-sign Detail Recorded Client Recorded Date Recorded By Document 07/10/22 08:36 [facility] Desktop 07/10/22 08:39 [facility] 07/10/22 08:36 Wound Center Nurse 1 #1- L inferior yoder -Combined with other wound No -Current Size (cm) - Length 0.6 -Current Size (cm) - Width 0.5 -Current Size (cm) - Depth 0.5 -Total Square Cm 0.30 -Date of Last Picture (Recall this 07/10/22 field) -Photo Taken Yes -Epithelialization None Present -Tunneling Yes -Tunneling Position (O'clock) 12 -Tunneling Distance (cm) 0.5 -Undermining/Tunneling No -Circular Undermining No -Exudate Amt Large -Exudate Type Serosanguineous -Wound Margin Distinct, Outline Attached -Granulation Amt Large (67-100%) -Granulation Quality Red -Slough/Fibrin Yes -Necrosis Amt Small (1-33%) -Necrotic Tissue Type Adherent Slough -Texture (Mima-wound Skin Appearance) Assessed, Scarring -Moisture (Mima-wound Skin Appearance) Assessed -Color (Mima-wound Skin Appearance) Assessed -Temperature (Mmia-wound Skin No Abnormality Appearance) (Pt Warm) -Tenderness on Palpation (Mima-wound Yes Skin Appearance) -Ulcer Cleansing Soap and Water -Foul Odor after Cleansing No -Anesthetic Used 5% Lidocaine Gel Left Calf (cm) 29.5 Left Ankle (cm) 18.7 - Nurse 2 - General Ulcer CM Notes Start: 07/10/22 08:35 Freq: Status: Active Protocol: Activity Type Activity Date Activity User E-sign Co-sign Detail Recorded Client Recorded Date Recorded By Document 07/10/22 09:17 TENZIN [id number] 07/10/22 09:18 TENZIN 07/10/22 09:17 Wound Center Nurse 2 #1- L inferior yoder -Time 09:17 -Correct Patient Yes -Correct Side, Site, Position Yes -Correct Procedure Yes -Procedure Performed Yes -Type of Procedure Debridement -Clinical Debridement Subcutaneous -Tissue Removed Subcutaneous -Post Debridement (cm) - Length 0.6 -Post Debridement (cm) - Width 0.6 -Post Debridement (cm) - Depth 0.6 -Total Square (Post) (cm) 0.36 -Area of Debridement (cm) - Length 0.6 -Area of Debridement (cm) - Width 0.6 -Total Square (Area) (cm) 0.36 -Tunneling No -Undermining/Tunneling No -Circular Undermining No -Wound/Ulcer Outcome Not Healed -Ulcer Cleansing Rinsed/ Irrigated with Saline -Foul Odor after Cleansing No -Bioengineered Tissue No -Bleeding Controlled with Pressure -Treatment Response Procedure Tolerated Well -Offloading No -Debridement - Subq, 1st 20sq cm Yes Pain Scale: 0-10 Numeric Is Patient Pain Free? Yes - Nurse 3 - General Ulcer D/C NN Start: 07/10/22 08:35 Freq: Status: Active Protocol: Activity Type Activity Date Activity User E-sign Co-sign Detail Recorded Client Recorded Date Recorded By Document 07/10/22 09:23 Desktop 07/10/22 09:24 RB 07/10/22 09:23 Wound Care Nurse 3 #1- L inferior yoder -Ulcer Cleansing Wound Cleanser -Foul Odor after Cleansing No -Primary Dressing Applied Aquacel AG 4x4 -Primary Dressing Covered/Secured with Dry Gauze, Secured with Tape -Aquacel AG 4x4 1 Left -Tubular Bandage Double Layer -Size of Tubigrip Used Size C -Size C ($) 2 Pain Scale: 0-10 Numeric Is Patient Pain Free? Yes - Visit Discharge Discharge Condition Stable Ambulatory Status Ambulatory Transportation Private Auto Medication Reconcilliation completed & No provided to patient/care provider Clinical Summary of Care Provided Yes Assessment/Plan Assessment/Plan (1) Ulcer of left lower extremity with fat layer exposed: CODE(S): L97.922 - Non-pressure chronic ulcer of unspecified part of left lower leg with fat layer exposed (2) Delayed wound healing: CODE(S): T14.8XXD - Other injury of unspecified body region, subsequent encounter (3) Osteomyelitis: CODE(S): M86.9 - Osteomyelitis, unspecified (4) Venous insufficiency (chronic) (peripheral): CODE(S): I87.2 - Venous insufficiency (chronic) (peripheral) (5) Localized edema: CODE(S): R60.0 - Localized edema (6) Rheumatoid arthritis: CODE(S): M06.9 - Rheumatoid arthritis, unspecified (7) Tobacco use disorder: CODE(S): F17.200 - Nicotine dependence, unspecified, uncomplicated (8) Malnutrition: CODE(S): E46 - Unspecified protein-calorie malnutrition (9) Body mass index [BMI] 19.9 or less, adult: CODE(S): Z68.1 - Body mass index [BMI] 19.9 or less, adult (10) Injury of left foot: CODE(S): S99.922A - Unspecified injury of left foot, initial encounter (11) Difficulty in walking, not elsewhere classified: CODE(S): R26.2 - Difficulty in walking, not elsewhere classified (12) Nondisplaced fracture of fifth metatarsal bone, left foot, subsequent encounter for fracture with routine healing: CODE(S): S92.355D - Nondisplaced fracture of fifth metatarsal bone, left foot, subsequent encounter for fracture with routine healing (13) Family history of diabetes mellitus in first degree relative: CODE(S): Z83.3 - Family history of diabetes mellitus PLAN: Plan Patient evaluated at the wound healing center today. Debridement was performed today as previously documented. Wound care - Aquacel-Ag wicked into the ulcer covered with gauze to the ulcer daily after washing with soap and water. Double tubigrip for compression. Will measure and order compression stockings for her. Keep leg elevated to help control swelling. Wound culture obtained which was positive for MRSA. She was referred to Dr. Holt, [place], for treatment. She has been receiving Kimyrsa infusion weekly. Wound culture obtained today, 07/10/22, due to the big difference in her left leg ulcer. Depending on the results of the culture, it may necessitate the need for treatment with antibiotics. Imaging: Left leg xrays were recently updated (02-20-22) - there is a healed fracture in the mid third of the left tibia but apparently there is periosteal reaction and what appears to be chronic osteomyelitis with possibility of sinus tract. Will obtain an MRI for further imaging of her left anterior leg non healing ulcer. She has a history of osteomyelitis. I have been trying to do a peer to peer with [facility] to get the MRI approved, I did finally get through to [facility] and we need to appeal the MRI, will send records for an appeal. Will obtain a fasting BMP and HgA1c to check her blood sugar. If she has undiagnosed DM, then this could be contributing to her non healing ulcer. Vascular / edema: She has nonpalpable pulses and lack of hair. She also has questionable claudication presentation. she had noninvasive vascular studies including MARI, segmental thigh and leg pressure, PVR, and systolic toe pressure. The results were reviewed and she has left biphasic waveforms, left MARI of 1.2, and left toe brachial index is 0.72. The segmental thigh and leg pressures were not obtained. There is not a difference of over 30 mmHg when compared to arm pressures. She is also advised to discontinue all tobacco products to optimize healing and limb salvage opportunities. Due to ongoing lack of healing, a vascular referral was provided for Dr. Rdz. She started intervention and was advised to follow-up with her scheduled ultrasound as advised. Her treatment is mainly for venous insufficiency at this time. She has significant delays in healing. We discussed tobacco cessation and how this impairs healing. She has some muscle wasting and delayed healing and nutritional supplementation would also be beneficial. She is underweight and is not consuming adequate micro or macronutrients. Encouraged to supplement of protein intake. She was referred for a nutrition referral to optimize healing. She has rheumatoid arthritis and understands this may also delay her healing. She was urged to reduce smoking; discussed at length again today. Her outcome prognosis is poor with continued tobacco use. Follow up one week. She is to call or come in sooner if she develops any issues.
[2022-07-17 12:53] VITALS: BP 131/72; PULSE 94; RESP 20; TEMP 36.8; BMI 20.5
--- NOTE | 2022-07-17 13:40 | PN.PCM_ITS ---
History of Present Illness Date of Service: 07/17/22 Chief Complaint: left leg ulcer History of Wound: This 61-year-old female was seen today for left leg ulcer. She denies fever, chill, nausea, vomiting, diarrhea. She tries to wear compression garment. She denies leg pain, redness, or odor. She denies trauma or recent increase in swelling. She had venous intervention with vascular specialist, Dr. Rdz. She has been wearing her compression stocking as advised anytime she is not wearing a 3M 2L compression dressing. She continues to smoke and has vascular disease. She also has rheumatoid arthritis. 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 She was given a prescription for Jay and Glucerna previously. She also had an injury to her left foot while stepping down she had some popping and cracking within the past month. She was fitted with a cam walker boot and she has reduction in pain since she has been wearing this. She had a Sullivan fracture which was being managed [facility], they have discharged her from their care. Wound culture obtained on 05/15/22 which was positive for MRSA. She was referred to Dr. Holt, [place], for treatment. She has been receiving Kimyrsa infusion weekly. When her ulcer enlarged, another wound culture was obtained on 07/10/22, which was also positive for MRSA, but for a rare amount. She sees Dr. Holt today for further evaluation. Progress of Wound: Left medial leg ulcer is again larger this week. She also has a new ulcer on the left medial leg (superior ulcer). She denies increased pain. Her edema is +1. Able to palpate to the bone at the base of the ulcer. She denies fever, chills, nausea, vomiting. She lost her paper work so she has not had her lab work drawn for a fasting BMP and HgA1c. Objective Data Objective Data Vital Signs: Vital Signs Temp Pulse Resp BP O2 Del Method 98.3 F 94 20 H 131/72 H Room Air 07/17/22 12:53 07/17/22 12:53 07/17/22 12:53 07/17/22 12:53 07/10/22 08:36 Oxygen Delivery Method Room Air Weight: 95 lb Body Mass Index (BMI) 20.5 Lab / Micro Data Micro: Microbiology 07/10/22 09:13 Wound Abcess - Leg, Left Gram Stain - Final 07/10/22 09:13 Wound Abcess - Leg, Left Wound Culture - Final Meth. resistant Staph. aureus 07/10/22 09:13 Wound Abcess - Leg, Left Anaerobic Culture - Final No growth in 5 days. Charges/Coding Procedures Integumentary [id number]: [id number] Miryam subq tissue 20 sq cm/< Debridement Note Debridement Note Wound debrided: medial leg ulcer - inferior Laterality: Left Wound Grade/Stage: Stage IV Type of Debridement: Excisional debridement Anesthesia Used: 5% Lidocaine Gel Depth: Down to and including healthy tissue and in the subcutaneous layer Percentage of wound debrided: 100 Instrument Used: 5mm curette Tissue Removed: Devitalized tissue and slough to bone Severity: Fat Layer Exposed Amount of bleeding with debridement: Mild Bleeding Controlled with: Compression and gauze Patient tolerated procedure: Patient tolerated procedure well Post-Debridement Measurements and Additional Note: Post-Debridement Measurements/Treatment - Nurse 1 - General Ulcer Assessment Start: 07/10/22 08:35 Freq: Status: Active Protocol: ELENA Activity Type Activity Date Activity User E-sign Co-sign Detail Recorded Client Recorded Date Recorded By Document 07/10/22 08:36 [facility] Desktop 07/10/22 08:39 [facility] Document 07/17/22 12:53 DL [id number] 07/17/22 12:57 DL 07/10/22 07/17/22 08:36 12:53 - Today's Visit Information Type of service Follow-up Visit Follow-up Visit (Physician/[employer]IDE (Physician/[employer] GUIDE ) ) Arrival Mode Ambulatory Ambulatory Transfer Assistance None None Patient Identification Verified (Name & Yes Yes ) Patient Requires Transmission-Based No No Precautions Height and Weight Body Mass Index (BMI) 20.5 20.5 BMI Classification Normal Normal Vital Signs Temperature (97.8 F-99.1 F) 97 F L 98.3 F Temperature Source Temporal Temporal Pulse Rate (60-100) 87 94 Pulse Location Monitor Monitor Respiratory Rate (12-18) 16 20 H Respiratory rate source Observation Observation Oxygen Delivery Method Room Air Blood Pressure (90/60-120/80) 147/68 H 131/72 H Blood Pressure Mean (mm Hg) 94 91 Source Monitor Monitor Position Sitting Blood Pressure Location Right Arm History Since Last Visit- (Skip if this is Patient's initial visit) Have you changed medications since your No No last visit? Any new allergies or adverse reactions No No Had a fall/change in ADL's that may No No increase risk of falls Signs or symptoms of abuse and/or No neglect since last visit Have you been in the hospital since your Yes No last visit? Has dressing in place as prescribed Yes Yes Has compression in place as prescribed Yes Yes Has offloadiing in place as prescribed N/A N/A Experienced any changes in pain level or No No management Left Footwear Regular Shoe Right Footwear Regular Shoe Pain Scale: 0-10 Numeric Is Patient Pain Free? Yes Yes WC - Nurse 1 - General Ulcer Measurement Start: 07/10/22 08:35 Freq: Status: Active Protocol: Activity Type Activity Date Activity User E-sign Co-sign Detail Recorded Client Recorded Date Recorded By Document 07/10/22 08:36 [facility] Desktop 07/10/22 08:39 [employer] Document 07/17/22 12:53 DL [id number] 07/17/22 12:57 DL 07/10/22 07/17/22 08:36 12:53 Wound Center Nurse 1 #1- L inferior medial leg -Combined with other wound No -Current Size (cm) - Length 0.6 1.1 -Current Size (cm) - Width 0.5 0.8 -Current Size (cm) - Depth 0.5 0.5 -Total Square Cm 0.30 0.88 -Date of Last Picture (Recall this 07/10/22 field) -Photo Taken Yes Yes -Epithelialization None Present -Tunneling Yes -Tunneling Position (O'clock) 12 -Tunneling Distance (cm) 0.5 -Undermining/Tunneling No -Circular Undermining No -Exudate Amt Large Medium -Exudate Type Serosanguineous Serosanguineous -Wound Margin Distinct, Distinct, Outline Outline Attached Attached -Granulation Amt Large (67-100%) Large (67-100%) -Granulation Quality Red Pale,Gurley -Slough/Fibrin Yes -Necrosis Amt Small (1-33%) None Present (0 %) -Necrotic Tissue Type Adherent Slough -Structure Exposed N/A -Texture (Mima-wound Skin Appearance) Assessed, Scarring Scarring -Moisture (Mima-wound Skin Appearance) Assessed -Color (Mima-wound Skin Appearance) Assessed Hemosiderin Staining -Temperature (Mima-wound Skin No Abnormality No Abnormality Appearance) (Pt Warm) (Pt Warm) -Tenderness on Palpation (Mima-wound Yes No Skin Appearance) -Ulcer Cleansing Soap and Water Soap and Water -Foul Odor after Cleansing No No -Anesthetic Used 5% Lidocaine 5% Lidocaine Gel Gel Left Calf (cm) 29.5 29 Left Ankle (cm) 18.7 18.8 WC - Nurse 2 - General Ulcer CM Notes Start: 07/10/22 08:35 Freq: Status: Active Protocol: Activity Type Activity Date Activity User E-sign Co-sign Detail Recorded Client Recorded Date Recorded By Document 07/10/22 09:17 [id number] 07/10/22 09:18 Document 07/17/22 13:29 [id number] 07/17/22 13:35 07/10/22 07/17/22 09:17 13:29 Wound Center Nurse 2 #5 Left superior medial leg -Time 13:31 -Correct Patient Yes -Correct Side, Site, Position Yes -Correct Procedure Yes -Procedure Performed Yes -Type of Procedure Debridement -Clinical Debridement Subcutaneous -Post Debridement (cm) - Length 0.6 -Post Debridement (cm) - Width 0.4 -Post Debridement (cm) - Depth 0.1 -Total Square (Post) (cm) 0.24 -Area of Debridement (cm) - Length 0.6 -Area of Debridement (cm) - Width 0.4 -Total Square (Area) (cm) 0.24 -Tunneling No -Undermining/Tunneling No -Circular Undermining No -Wound/Ulcer Outcome Not Healed -Ulcer Cleansing Rinsed/ Irrigated with Saline -Foul Odor after Cleansing No -Bioengineered Tissue No -Bleeding Controlled with Pressure -Offloading No -Debridement - Subq, 1st 20sq cm No #1- L inferior medial leg -Time 09:17 13:32 -Correct Patient Yes Yes -Correct Side, Site, Position Yes Yes -Correct Procedure Yes Yes -Procedure Performed Yes Yes -Type of Procedure Debridement Debridement -Clinical Debridement Subcutaneous Subcutaneous -Tissue Removed Subcutaneous Subcutaneous -Post Debridement (cm) - Length 0.6 1.1 -Post Debridement (cm) - Width 0.6 0.8 -Post Debridement (cm) - Depth 0.6 0.6 -Total Square (Post) (cm) 0.36 0.88 -Area of Debridement (cm) - Length 0.6 1.1 -Area of Debridement (cm) - Width 0.6 0.8 -Total Square (Area) (cm) 0.36 0.88 -Tunneling No No -Undermining/Tunneling No No -Circular Undermining No No -Wound/Ulcer Outcome Not Healed -Ulcer Cleansing Rinsed/ Rinsed/ Irrigated with Irrigated with Saline Saline -Foul Odor after Cleansing No No -Bioengineered Tissue No No -Bleeding Controlled with Pressure Pressure -Treatment Response Procedure Procedure Tolerated Well Tolerated Well -Offloading No No -Debridement - Subq, 1st 20sq cm Yes Yes Pain Scale: 0-10 Numeric Is Patient Pain Free? Yes Yes - Nurse 3 - General Ulcer D/C NN Start: 07/10/22 08:35 Freq: Status: Active Protocol: Activity Type Activity Date Activity User E-sign Co-sign Detail Recorded Client Recorded Date Recorded By Document 07/10/22 09:23 RB Desktop 07/10/22 09:24 RB Document 07/17/22 13:37 MW [id number] 07/17/22 13:40 MW 07/10/22 07/17/22 09:23 13:37 Wound Care Nurse 3 #5 Left superior medial leg -Ulcer Cleansing Rinsed/ Irrigated with Saline -Negative Pressure Wound Therapy N/A -Other Dressing aquacel AG -Primary Dressing Covered/Secured with Dry Gauze & Roll Gauze #1- L inferior medial leg -Ulcer Cleansing Wound Cleanser Rinsed/ Irrigated with Saline -Foul Odor after Cleansing No No -Negative Pressure Wound Therapy N/A -Primary Dressing Applied Aquacel AG 4x4 Aquacel AG 4x4 -Primary Dressing Covered/Secured with Dry Gauze, Dry Gauze & Secured with Roll Gauze, Tape Secured with Tape -Aquacel AG 4x4 1 1 Left -Tubular Bandage Double Layer -Size of Tubigrip Used Size C -Size C ($) 2 Treatment Response Procedure Tolerated Well Pain Scale: 0-10 Numeric Is Patient Pain Free? Yes Yes Teaching: Wound Center Dressing Your Wound -Person Taught Patient -Teaching Method Discussion -Response to teaching Verbalize understanding WC - Visit Discharge Discharge Condition Stable Stable Ambulatory Status Ambulatory Ambulatory Transportation [facility] transport Medication Reconcilliation completed & No No provided to patient/care provider Clinical Summary of Care Provided Yes Yes Additional Wound Wound debrided: superior medial leg ulcer Laterality: Left Wound Grade/Stage: Stage II Type of Debridement: Excisional debridement Anesthesia Used: 5% Lidocaine Gel Depth: Down to and including healthy tissue and in the subcutaneous layer Percentage of wound debrided: 100 Instrument Used: 5mm curette Tissue Removed: Devitalized tissue and slough Severity: Fat Layer Exposed Amount of bleeding with debridement: Mild Bleeding Controlled with: Compression and gauze Patient tolerated procedure: Patient tolerated procedure well Assessment/Plan Assessment/Plan (1) Ulcer of left lower extremity with fat layer exposed: CODE(S): L97.922 - Non-pressure chronic ulcer of unspecified part of left lower leg with fat layer exposed (2) Delayed wound healing: CODE(S): T14.8XXD - Other injury of unspecified body region, subsequent encounter (3) Osteomyelitis: CODE(S): M86.9 - Osteomyelitis, unspecified (4) Venous insufficiency (chronic) (peripheral): CODE(S): I87.2 - Venous insufficiency (chronic) (peripheral) (5) Localized edema: CODE(S): R60.0 - Localized edema (6) Rheumatoid arthritis: CODE(S): M06.9 - Rheumatoid arthritis, unspecified (7) Tobacco use disorder: CODE(S): F17.200 - Nicotine dependence, unspecified, uncomplicated (8) Malnutrition: CODE(S): E46 - Unspecified protein-calorie malnutrition (9) Body mass index [BMI] 19.9 or less, adult: CODE(S): Z68.1 - Body mass index [BMI] 19.9 or less, adult (10) Injury of left foot: CODE(S): S99.922A - Unspecified injury of left foot, initial encounter (11) Difficulty in walking, not elsewhere classified: CODE(S): R26.2 - Difficulty in walking, not elsewhere classified (12) Nondisplaced fracture of fifth metatarsal bone, left foot, subsequent encounter for fracture with routine healing: CODE(S): S92.355D - Nondisplaced fracture of fifth metatarsal bone, left foot, subsequent encounter for fracture with routine healing (13) Family history of diabetes mellitus in first degree relative: CODE(S): Z83.3 - Family history of diabetes mellitus PLAN: Plan Patient evaluated at the wound healing center today. Debridement was performed today as previously documented. Wound care - Aquacel-Ag placed into the inferior ulcer and cover the superior ulcer, then covered with gauze to the ulcer daily after washing with soap and water. Double tubigrip for compression. Will measure and order compression stockings for her. Keep leg elevated to help control swelling. Wound culture obtained which was positive for MRSA. She was referred to Dr. Holt, [place], for treatment. She has been receiving Kimyrsa infusion weekly. Wound culture obtained 07/10/22, which was positive for MRSA (rare amount). Will notify Dr. Holt. Imaging: Left leg xrays were recently updated (02-20-22) - there is a healed fracture in the mid third of the left tibia but apparently there is periosteal reaction and what appears to be chronic osteomyelitis with possibility of sinus tract. Will obtain an MRI for further imaging of her left anterior leg non healing ulcer. She has a history of osteomyelitis. I have been trying to do a peer to peer with Melita to get the MRI approved, I did finally get through to Henry and we need to appeal the MRI, will send records for an appeal. Have phoned [facility] @ [phone], obtained a call reference #[id number] on 07/17/22 at 1617, placed on hold for 28 minutes and then was disconnected. Patient tracking number is [id number]. Will obtain a fasting BMP and HgA1c to check her blood sugar. If she has undiagnosed DM, then this could be contributing to her non healing ulcer. She lost her lab work order, so will place in the computer. Vascular / edema: She has nonpalpable pulses and lack of hair. She also has questionable claudication presentation. she had noninvasive vascular studies including MARI, segmental thigh and leg pressure, PVR, and systolic toe pressure. The results were reviewed and she has left biphasic waveforms, left MAIR of 1.2, and left toe brachial index is 0.72. The segmental thigh and leg pressures were not obtained. There is not a difference of over 30 mmHg when compared to arm pressures. She is also advised to discontinue all tobacco products to optimize healing and limb salvage opportunities. Due to ongoing lack of paige baltazar, a vascular referral was provided for Dr. Rdz. She started intervention and was advised to follow-up with her scheduled ultrasound as advised. Her treatment is mainly for venous insufficiency at this time. She has significant delays in healing. We discussed tobacco cessation and how this impairs healing. She has some muscle wasting and delayed healing and nutritional supplementation would also be beneficial. She is underweight and is not consuming adequate micro or macronutrients. Encouraged to supplement of protein intake. She was referred for a nutrition referral to optimize healing. She has rheumatoid arthritis and understands this may also delay her healing. She was urged to reduce smoking; discussed at length again today. Her outcome prognosis is poor with continued tobacco use. Follow up one week. She is to call or come in sooner if she develops any issues.
[2022-07-24 09:16] VITALS: BP 146/75; PULSE 92; RESP 18; TEMP 35.8; BMI 20.5
--- NOTE | 2022-07-24 11:55 | PN.PCM_ITS ---
History of Present Illness Date of Service: 07/24/22 Chief Complaint: left leg ulcer History of Wound: This 61-year-old female was seen today for left leg ulcer. She denies fever, chill, nausea, vomiting, diarrhea. She tries to wear compression garment. She denies leg pain, redness, or odor. She denies trauma or recent increase in swelling. She had venous intervention with vascular specialist, Dr. Rdz. She has been wearing her compression stocking as advised anytime she is not wearing a 3M 2L compression dressing. She continues to smoke and has vascular disease. She also has rheumatoid arthritis. 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 She was given a prescription for Jay and Glucerna previously. She also had an injury to her left foot while stepping down she had some popping and cracking within the past month. She was fitted with a cam walker boot and she has reduction in pain since she has been wearing this. She had a Sullivan fracture which was being managed [facility], they have discharged her from their care. Wound culture obtained on 05/15/22 which was positive for MRSA. She was referred to Dr. Holt, [place], for treatment. She has been receiving Kimyrsa infusion weekly. When her ulcer enlarged, another wound culture was obtained on 07/10/22, which was also positive for MRSA, but for a rare amount. She sees Dr. Holt, who is managing her infusion therapy. On 07/19/22 she had a HgbA1c that was 5.7 with a fasting glucose of 84. Progress of Wound: Left medial leg ulcer is slightly smaller. The new ulcer on the left medial leg (superior ulcer) has increased depth. She denies increased pain. Her edema is +1. Able to palpate to the bone at the base of the ulcer. She denies fever, chills, nausea, vomiting. Objective Data Objective Data Vital Signs: Vital Signs Temp Pulse Resp BP O2 Del Method 96.4 F L 92 18 146/75 H Room Air 07/24/22 09:16 07/24/22 09:16 07/24/22 09:16 07/24/22 09:16 07/10/22 08:36 Oxygen Delivery Method Room Air Weight: 95 lb Body Mass Index (BMI) 20.5 Lab / Micro Data Micro: Microbiology 07/10/22 09:13 Wound Abcess - Leg, Left Gram Stain - Final 07/10/22 09:13 Wound Abcess - Leg, Left Wound Culture - Final Meth. resistant Staph. aureus 07/10/22 09:13 Wound Abcess - Leg, Left Anaerobic Culture - Final No growth in 5 days. Charges/Coding Procedures Integumentary [id number]: [id number] Miryam subq tissue 20 sq cm/< Debridement Note Debridement Note Wound debrided: medial leg ulcer - inferior Laterality: Left Wound Grade/Stage: Stage IV Type of Debridement: Excisional debridement Anesthesia Used: 5% Lidocaine Gel Depth: Down to and including healthy tissue and in the subcutaneous layer Percentage of wound debrided: 100 Instrument Used: 3mm curette Tissue Removed: Devitalized tissue and slough to bone Severity: Fat Layer Exposed Amount of bleeding with debridement: Mild Bleeding Controlled with: Compression and gauze Patient tolerated procedure: Patient tolerated procedure well Post-Debridement Measurements and Additional Note: Post-Debridement Measurements/Treatment - Nurse 1 - General Ulcer Assessment Start: 07/10/22 08:35 Freq: Status: Active Protocol: .JAXSON Activity Type Activity Date Activity User E-sign Co-sign Detail Recorded Client Recorded Date Recorded By Document 07/10/22 08:36 [facility] Desktop 07/10/22 08:39 [facility] Document 07/17/22 12:53 DL [id number] 07/17/22 12:57 DL Document 07/24/22 09:16 DL [id number] 07/24/22 09:27 DL 07/10/22 07/17/22 07/24/22 08:36 12:53 09:16 - Today's Visit Information Type of service Follow-up Visit Follow-up Visit Follow-up Visit (Physician/INSURANCE CUSTOMER SERVICE SPECIALIST (Physician/INSURANCE CUSTOMER SERVICE SPECIALIST (Physician/INSURANCE CUSTOMER SERVICE SPECIALIST ) ) ) Arrival Mode Ambulatory Ambulatory Ambulatory Transfer Assistance None None None Patient Identification Verified (Name & Yes Yes Yes ) Patient Requires Transmission-Based No No No Precautions Height and Weight Body Mass Index (BMI) 20.5 20.5 20.5 BMI Classification Normal Normal Normal Vital Signs Temperature (97.8 F-99.1 F) 97 F L 98.3 F 96.4 F L Temperature Source Temporal Temporal Temporal Pulse Rate (60-100) 87 94 92 Pulse Location Monitor Monitor Monitor Respiratory Rate (12-18) 16 20 H 18 Respiratory rate source Observation Observation Observation Oxygen Delivery Method Room Air Blood Pressure (90/60-120/80) 147/68 H 131/72 H 146/75 H Blood Pressure Mean (mm Hg) 94 91 98 Source Monitor Monitor Monitor Position Sitting Blood Pressure Location Right Arm History Since Last Visit- (Skip if this is Patient's initial visit) Have you changed medications since your No No No last visit? Any new allergies or adverse reactions No No No Had a fall/change in ADL's that may No No No increase risk of falls Signs or symptoms of abuse and/or No No neglect since last visit Have you been in the hospital since your Yes No No last visit? Has dressing in place as prescribed Yes Yes Yes Has compression in place as prescribed Yes Yes No Has offloadiing in place as prescribed N/A N/A N/A Experienced any changes in pain level or No No No management Left Footwear Regular Shoe Right Footwear Regular Shoe Pain Scale: 0-10 Numeric Is Patient Pain Free? Yes Yes Yes WC - Nurse 1 - General Ulcer Measurement Start: 07/10/22 08:35 Freq: Status: Active Protocol: Activity Type Activity Date Activity User E-sign Co-sign Detail Recorded Client Recorded Date Recorded By Document 07/10/22 08:36 [facility] Desktop 07/10/22 08:39 [facility] Document 07/17/22 12:53 DL [id number] 07/17/22 12:57 DL Document 07/24/22 09:16 DL [id number] 07/24/22 09:27 DL 07/10/22 07/17/22 07/24/22 08:36 12:53 09:16 Wound Center Nurse 1 #5 Left superior yoder -Current Size (cm) - Length 0.3 -Current Size (cm) - Width 0.2 -Current Size (cm) - Depth 0.4 -Total Square Cm 0.06 -Photo Taken No -Exudate Amt Small -Exudate Type Serous -Wound Margin Distinct, Outline Attached -Granulation Amt Small (1-33%) -Granulation Quality [place] -Necrosis Amt Small (1-33%) -Necrotic Tissue Type Adherent Slough -Structure Exposed N/A -Texture (Mima-wound Skin Appearance) Scarring -Moisture (Mima-wound Skin Appearance) No Abnormality -Color (Mima-wound Skin Appearance) Hemosiderin Staining -Temperature (Mima-wound Skin No Abnormality Appearance) (Pt Warm) -Tenderness on Palpation (Mima-wound No Skin Appearance) -Ulcer Cleansing Soap and Water -Foul Odor after Cleansing No -Anesthetic Used 5% Lidocaine Gel #1- L inferior yoder -Combined with other wound No -Current Size (cm) - Length 0.6 1.1 0.5 -Current Size (cm) - Width 0.5 0.8 0.3 -Current Size (cm) - Depth 0.5 0.5 0.6 -Total Square Cm 0.30 0.88 0.15 -Date of Last Picture (Recall this 07/10/22 field) -Photo Taken Yes Yes Yes -Epithelialization None Present -Tunneling Yes -Tunneling Position (O'clock) 12 -Tunneling Distance (cm) 0.5 -Undermining/Tunneling No -Circular Undermining No -Exudate Amt Large Medium Small -Exudate Type Serosanguineous Serosanguineous Serosanguineous -Wound Margin Distinct, Distinct, Distinct, Outline Outline Outline Attached Attached Attached -Granulation Amt Large (67-100%) Large (67-100%) Large (67-100%) -Granulation Quality Red Pale,[place] -Slough/Fibrin Yes -Necrosis Amt Small (1-33%) None Present (0 Small (1-33%) %) -Necrotic Tissue Type Adherent Slough Adherent Slough -Structure Exposed N/A N/A -Texture (Mima-wound Skin Appearance) Assessed, Scarring Scarring Scarring -Moisture (Mima-wound Skin Appearance) Assessed No Abnormality -Color (Mima-wound Skin Appearance) Assessed Hemosiderin Hemosiderin Staining Staining -Temperature (Mima-wound Skin No Abnormality No Abnormality No Abnormality Appearance) (Pt Warm) (Pt Warm) (Pt Warm) -Tenderness on Palpation (Mima-wound Yes No No Skin Appearance) -Ulcer Cleansing Soap and Water Soap and Water Soap and Water -Foul Odor after Cleansing No No No -Anesthetic Used 5% Lidocaine 5% Lidocaine 5% Lidocaine Gel Gel Gel Left Calf (cm) 29.5 29 28.3 Left Ankle (cm) 18.7 18.8 18.5 WC - Nurse 2 - General Ulcer CM Notes Start: 07/10/22 08:35 Freq: Status: Active Protocol: Activity Type Activity Date Activity User E-sign Co-sign Detail Recorded Client Recorded Date Recorded By Document 07/10/22 09:17 [id number] 07/10/22 09:18 Document 07/17/22 13:29 [id number] 07/17/22 13:35 Document 07/24/22 09:39 [id number] 07/24/22 09:43 07/10/22 07/17/22 07/24/22 09:17 13:29 09:39 Wound Center Nurse 2 #5 Left superior yoder -Time 13:31 09:39 -Correct Patient Yes Yes -Correct Side, Site, Position Yes Yes -Correct Procedure Yes Yes -Procedure Performed Yes Yes -Type of Procedure Debridement Debridement -Clinical Debridement Subcutaneous Subcutaneous -Tissue Removed Subcutaneous -Post Debridement (cm) - Length 0.6 0.4 -Post Debridement (cm) - Width 0.4 0.2 -Post Debridement (cm) - Depth 0.1 0.5 -Total Square (Post) (cm) 0.24 0.08 -Area of Debridement (cm) - Length 0.6 0.4 -Area of Debridement (cm) - Width 0.4 0.2 -Total Square (Area) (cm) 0.24 0.08 -Tunneling No No -Undermining/Tunneling No No -Circular Undermining No No -Wound/Ulcer Outcome Not Healed Not Healed -Ulcer Cleansing Rinsed/ Rinsed/ Irrigated with Irrigated with Saline Saline -Foul Odor after Cleansing No No -Bioengineered Tissue No No -Bleeding Controlled with Pressure Pressure -Treatment Response Procedure Tolerated Well -Offloading No No -Debridement - Subq, 1st 20sq cm No Yes #1- L inferior yoder -Time 09:17 13:32 09:42 -Correct Patient Yes Yes Yes -Correct Side, Site, Position Yes Yes Yes -Correct Procedure Yes Yes Yes -Procedure Performed Yes Yes Yes -Type of Procedure Debridement Debridement Debridement -Clinical Debridement Subcutaneous Subcutaneous Subcutaneous -Tissue Removed Subcutaneous Subcutaneous Subcutaneous -Post Debridement (cm) - Length 0.6 1.1 0.5 -Post Debridement (cm) - Width 0.6 0.8 0.5 -Post Debridement (cm) - Depth 0.6 0.6 0.5 -Total Square (Post) (cm) 0.36 0.88 0.25 -Area of Debridement (cm) - Length 0.6 1.1 0.5 -Area of Debridement (cm) - Width 0.6 0.8 0.5 -Total Square (Area) (cm) 0.36 0.88 0.25 -Tunneling No No No -Undermining/Tunneling No No No -Circular Undermining No No No -Wound/Ulcer Outcome Not Healed Not Healed -Ulcer Cleansing Rinsed/ Rinsed/ Rinsed/ Irrigated with Irrigated with Irrigated with Saline Saline Saline -Foul Odor after Cleansing No No No -Bioengineered Tissue No No No -Bleeding Controlled with Pressure Pressure Pressure -Treatment Response Procedure Procedure Procedure Tolerated Well Tolerated Well Tolerated Well -Offloading No No No -Debridement - Subq, 1st 20sq cm Yes Yes No Pain Scale: 0-10 Numeric Is Patient Pain Free? Yes Yes Yes WC - Nurse 3 - General Ulcer D/C NN Start: 07/10/22 08:35 Freq: Status: Active Protocol: Activity Type Activity Date Activity User E-sign Co-sign Detail Recorded Client Recorded Date Recorded By Document 07/10/22 09:23 RB Desktop 07/10/22 09:24 RB Document 07/17/22 13:37 MW [id number] 07/17/22 13:40 MW Document 07/24/22 09:52 RB [id number] 07/24/22 09:54 RB 07/10/22 07/17/22 07/24/22 09:23 13:37 09:52 Wound Care Nurse 3 #5 Left superior yoder -Ulcer Cleansing Rinsed/ Irrigated with Saline -Negative Pressure Wound Therapy N/A -Primary Dressing Applied Nugauze, Iodoform -Other Dressing aquacel AG -Primary Dressing Covered/Secured with Dry Gauze & Dry Gauze, Roll Gauze Secured with Tape -Nugauze, Iodoform 1/4 1 #1- L inferior yoder -Ulcer Cleansing Wound Cleanser Rinsed/ Irrigated with Saline -Foul Odor after Cleansing No No -Negative Pressure Wound Therapy N/A -Primary Dressing Applied Aquacel AG 4x4 Aquacel AG 4x4 -Primary Dressing Covered/Secured with Dry Gauze, Dry Gauze & Secured with Roll Gauze, Tape Secured with Tape -Aquacel AG 4x4 1 1 Left -Tubular Bandage Double Layer Double Layer -Size of Tubigrip Used Size C Size C -Size C ($) 2 2 Treatment Response Procedure Tolerated Well Pain Scale: 0-10 Numeric Is Patient Pain Free? Yes Yes Yes Teaching: Wound Center Dressing Your Wound -Person Taught Patient -Teaching Method Discussion -Response to teaching Verbalize understanding WC - Visit Discharge Discharge Condition Stable Stable Stable Ambulatory Status Ambulatory Ambulatory Ambulatory Transportation [facility] Private Auto Medication Reconcilliation completed & No No No provided to patient/care provider Clinical Summary of Care Provided Yes Yes Yes Additional Wound Wound debrided: superior medial leg ulcer Laterality: Left Wound Grade/Stage: Stage II Type of Debridement: Excisional debridement Anesthesia Used: 5% Lidocaine Gel Depth: Down to and including healthy tissue and in the subcutaneous layer Percentage of wound debrided: 100 Instrument Used: 3mm curette Tissue Removed: Devitalized tissue and slough Severity: Fat Layer Exposed Amount of bleeding with debridement: Mild Bleeding Controlled with: Compression and gauze Patient tolerated procedure: Patient tolerated procedure well Assessment/Plan Assessment/Plan (1) Ulcer of left lower extremity with fat layer exposed: CODE(S): L97.922 - Non-pressure chronic ulcer of unspecified part of left lower leg with fat layer exposed (2) Delayed wound healing: CODE(S): T14.8XXD - Other injury of unspecified body region, subsequent encounter (3) Osteomyelitis: CODE(S): M86.9 - Osteomyelitis, unspecified (4) Venous insufficiency (chronic) (peripheral): CODE(S): I87.2 - Venous insufficiency (chronic) (peripheral) (5) Localized edema: CODE(S): R60.0 - Localized edema (6) Rheumatoid arthritis: CODE(S): M06.9 - Rheumatoid arthritis, unspecified (7) Tobacco use disorder: CODE(S): F17.200 - Nicotine dependence, unspecified, uncomplicated (8) Malnutrition: CODE(S): E46 - Unspecified protein-calorie malnutrition (9) Body mass index [BMI] 19.9 or less, adult: CODE(S): Z68.1 - Body mass index [BMI] 19.9 or less, adult (10) Injury of left foot: CODE(S): S99.922A - Unspecified injury of left foot, initial encounter (11) Difficulty in walking, not elsewhere classified: CODE(S): R26.2 - Difficulty in walking, not elsewhere classified (12) Nondisplaced fracture of fifth metatarsal bone, left foot, subsequent encounter for fracture with routine healing: CODE(S): S92.355D - Nondisplaced fracture of fifth metatarsal bone, left foot, subsequent encounter for fracture with routine healing (13) Family history of diabetes mellitus in first degree relative: CODE(S): Z83.3 - Family history of diabetes mellitus PLAN: Plan Patient evaluated at the wound healing center today. Debridement was performed today as previously documented. Wound care - She is having a difficult time packing Aquacel-Ag into the ulcers. Will have her start packing iodoform gauze topped with gauze to both the ulcers daily after washing with soap and water. Double tubigrip for compression. She states her compression stockings are too tight right now. Keep leg elevated to help control swelling. Wound culture obtained which was positive for MRSA. She was referred to Dr. Holt, [place], for treatment. She has been receiving Kimyrsa infusion weekly. Wound culture obtained 07/10/22, which was positive for MRSA (rare amount). Will notify Dr. Holt. Imaging: Left leg xrays were recently updated (02-20-22) - there is a healed fracture in the mid third of the left tibia but apparently there is periosteal reaction and what appears to be chronic osteomyelitis with possibility of sinus tract. Her MRI has finally been approved from her insurance and is scheduled for 08/08/22. She has a history of osteomyelitis. She had labwork drawn on 07/19/22 to check a fasting glucose 84 and HgA1c was 5.7. She had concerns about her blood sugars because they have been high the past couple times she has had blood work drawn and she has a significant family history for diabetes. Vascular / edema: She has nonpalpable pulses and lack of hair. She also has questionable claudication presentation. she had noninvasive vascular studies including MARI, segmental thigh and leg pressure, PVR, and systolic toe pressure. The results were reviewed and she has left biphasic waveforms, left MARI of 1.2, and left toe brachial index is 0.72. The segmental thigh and leg pressures were not obtained. There is not a difference of over 30 mmHg when compared to arm pressures. She is also advised to discontinue all tobacco products to optimize healing and limb salvage opportunities. Due to ongoing lack of healing, a vascular referral was provided for Dr. Rdz. She started intervention and was advised to follow-up with her scheduled ultrasound as advised. Her treatment is mainly for venous insufficiency at this time. She has significant delays in healing. We discussed tobacco cessation and how this impairs healing. She has some muscle wasting and delayed healing and nutritional supplementation would also be beneficial. She is underweight and is not consuming adequate micro or macronutrients. Encouraged to supplement of protein intake. She was referred for a nutrition referral to optimize healing. She has rheumatoid arthritis and understands this may also delay her healing. She was urged to reduce smoking; discussed at length again today. Her outcome prognosis is poor with continued tobacco use. Follow up one week. She is to call or come in sooner if she develops any issues.
[2022-07-29 13:15] VITALS: BP 140/65; PULSE 91; RESP 16; TEMP 36.6; BMI 20.5
--- NOTE | 2022-07-29 15:16 | PCM.WC.PN ---
History of Present Illness Date of Service: 07/29/22 Chief Complaint: left leg ulcer History of Wound: This 61-year-old female was seen today for left leg ulcer. She denies fever, chill, nausea, vomiting, diarrhea. She tries to wear compression garment. She denies leg pain, redness, or odor. She denies trauma or recent increase in swelling. She had venous intervention with vascular specialist, Dr. Rdz. She has been wearing her compression stocking as advised anytime she is not wearing a 3M 2L compression dressing. She continues to smoke and has vascular disease. She also has rheumatoid arthritis. She went for a pcts referral and is struggling to make the recommended changes. She was given a prescription for Jay and Glucerna previously. She also had an injury to her left foot while stepping down she had some popping and cracking within the past month. She was fitted with a cam walker boot and she has reduction in pain since she has been wearing this. She had a Sullivan fracture which was being managed by [facility], they have discharged her from their care. Wound culture obtained on 05/15/22 which was positive for MRSA. She was referred to Dr. Holt, [place], for treatment. She has been receiving Kimyrsa infusion weekly. When her ulcer enlarged, another wound culture was obtained on 07/10/22, which was also positive for MRSA, but for a rare amount. She sees Dr. Holt, who is managing her infusion therapy. On 07/19/22 she had a HgbA1c that was 5.7 with a fasting glucose of 84. Progress of Wound: Left medial leg ulcer (inferior) is slightly smaller but still has depth. The newer ulcer on the left medial leg (superior ulcer) also has depth. She denies increased pain. Her edema is +1. Able to palpate to the bone at the base of both ulcers. She denies fever, chills, nausea, vomiting. Objective Data Objective Data Vital Signs: Vital Signs Temp Pulse Resp BP O2 Del Method 97.9 F 91 16 140/65 H Room Air 07/29/22 13:15 07/29/22 13:15 07/29/22 13:15 07/29/22 13:15 07/29/22 13:15 Oxygen Delivery Method Room Air Weight: 95 lb Body Mass Index (BMI) 20.5 Lab / Micro Data Micro: Microbiology 07/10/22 09:13 Wound Abcess - Leg, Left Gram Stain - Final 07/10/22 09:13 Wound Abcess - Leg, Left Wound Culture - Final Meth. resistant Staph. aureus 07/10/22 09:13 Wound Abcess - Leg, Left Anaerobic Culture - Final No growth in 5 days. Charges/Coding Procedures Integumentary [id number]: [id number] Miryam subq tissue 20 sq cm/< Debridement Note Debridement Note Wound debrided: medial leg ulcer - inferior Laterality: Left Wound Grade/Stage: Stage IV Type of Debridement: Excisional debridement Anesthesia Used: 5% Lidocaine Gel Depth: Down to and including healthy tissue and in the subcutaneous layer Percentage of wound debrided: 100 Instrument Used: 3mm curette Tissue Removed: Devitalized tissue and slough to bone Severity: Fat Layer Exposed Amount of bleeding with debridement: Mild Bleeding Controlled with: Compression and gauze Patient tolerated procedure: Patient tolerated procedure well Post-Debridement Measurements and Additional Note: Post-Debridement Measurements/Treatment - Nurse 1 - General Ulcer Assessment Start: 07/10/22 08:35 Freq: Status: Active Protocol: [email or web address] Activity Type Activity Date Activity User E-sign Co-sign Detail Recorded Client Recorded Date Recorded By Document 07/10/22 08:36 [facility] Desktop 07/10/22 08:39 [facility] Document 07/17/22 12:53 DL [id number] 07/17/22 12:57 DL Document 07/24/22 09:16 [id number] 07/24/22 09:27 DL Document 07/29/22 13:15 [facility] [id number] 07/29/22 13:21 [facility] 07/10/22 07/17/22 07/24/22 08:36 12:53 09:16 - Today's Visit Information Type of service Follow-up Visit Follow-up Visit Follow-up Visit (Physician/OBIEE REPORT DEVELOPER (Physician/OBIEE REPORT DEVELOPER (Physician/OBIEE REPORT DEVELOPER ) ) ) Arrival Mode Ambulatory Ambulatory Ambulatory Transfer Assistance None None None Patient Identification Verified (Name & Yes Yes Yes ) Patient Requires Transmission-Based No No No Precautions Height and Weight Body Mass Index (BMI) 20.5 20.5 20.5 BMI Classification Normal Normal Normal Vital Signs Temperature (97.8 F-99.1 F) 97 F L 98.3 F 96.4 F L Temperature Source Temporal Temporal Temporal Pulse Rate (60-100) 87 94 92 Pulse Location Monitor Monitor Monitor Respiratory Rate (12-18) 16 20 H 18 Respiratory rate source Observation Observation Observation Oxygen Delivery Method Room Air Blood Pressure (90/60-120/80) 147/68 H 131/72 H 146/75 H Blood Pressure Mean (mm Hg) 94 91 98 Source Monitor Monitor Monitor Position Sitting Blood Pressure Location Right Arm History Since Last Visit- (Skip if this is Patient's initial visit) Have you changed medications since your No No No last visit? Any new allergies or adverse reactions No No No Had a fall/change in ADL's that may No No No increase risk of falls Signs or symptoms of abuse and/or No No neglect since last visit Have you been in the hospital since your Yes No No last visit? Has dressing in place as prescribed Yes Yes Yes Has compression in place as prescribed Yes Yes No Has offloadiing in place as prescribed N/A N/A N/A Experienced any changes in pain level or No No No management Left Footwear Regular Shoe Right Footwear Regular Shoe Pain Scale: 0-10 Numeric Is Patient Pain Free? Yes Yes Yes 07/29/22 13:15 WC - Today's Visit Information Type of service Follow-up Visit (Physician/OBIEE REPORT DEVELOPER ) Arrival Mode Ambulatory Transfer Assistance None Patient Identification Verified (Name & Yes ) Patient Requires Transmission-Based Precautions Height and Weight Body Mass Index (BMI) 20.5 BMI Classification Normal Vital Signs Temperature (97.8 F-99.1 F) 97.9 F Temperature Source Temporal Pulse Rate (60-100) 91 Pulse Location Monitor Respiratory Rate (12-18) 16 Respiratory rate source Observation Oxygen Delivery Method Room Air Blood Pressure (90/60-120/80) 140/65 H Blood Pressure Mean (mm Hg) 90 Source Monitor Position Sitting Blood Pressure Location Left Arm History Since Last Visit- (Skip if this is Patient's initial visit) Have you changed medications since your No last visit? Any new allergies or adverse reactions No Had a fall/change in ADL's that may No increase risk of falls Signs or symptoms of abuse and/or No neglect since last visit Have you been in the hospital since your No last visit? Has dressing in place as prescribed Yes Has compression in place as prescribed Yes Has offloadiing in place as prescribed N/A Experienced any changes in pain level or No management Left Footwear Regular Shoe Right Footwear Regular Shoe Pain Scale: 0-10 Numeric Is Patient Pain Free? Yes WC - Nurse 1 - General Ulcer Measurement Start: 07/10/22 08:35 Freq: Status: Active Protocol: Activity Type Activity Date Activity User E-sign Co-sign Detail Recorded Client Recorded Date Recorded By Document 07/10/22 08:36 [facility] Desktop 07/10/22 08:39 [facility] Document 07/17/22 12:53 DL [id number] 07/17/22 12:57 DL Document 07/24/22 09:16 DL [id number] 07/24/22 09:27 DL Document 07/29/22 13:15 [facility] [id number] 07/29/22 13:21 BM 07/10/22 07/17/22 07/24/22 08:36 12:53 09:16 Wound Center Nurse 1 #5 Left superior yoder -Combined with other wound -Current Size (cm) - Length 0.3 -Current Size (cm) - Width 0.2 -Current Size (cm) - Depth 0.4 -Total Square Cm 0.06 -Date of Last Picture (Recall this field) -Photo Taken No -Epithelialization -Exudate Amt Small -Exudate Type Serous -Wound Margin Distinct, Outline Attached -Granulation Amt Small (1-33%) -Granulation Quality [place] -Necrosis Amt Small (1-33%) -Necrotic Tissue Type Adherent Slough -Structure Exposed N/A -Texture (Mima-wound Skin Appearance) Scarring -Moisture (Mima-wound Skin Appearance) No Abnormality -Color (Mima-wound Skin Appearance) Hemosiderin Staining -Temperature (Mima-wound Skin No Abnormality Appearance) (Pt Warm) -Tenderness on Palpation (Mima-wound No Skin Appearance) -Ulcer Cleansing Soap and Water -Foul Odor after Cleansing No -Anesthetic Used 5% Lidocaine Gel #1- L inferior yoder -Combined with other wound No -Current Size (cm) - Length 0.6 1.1 0.5 -Current Size (cm) - Width 0.5 0.8 0.3 -Current Size (cm) - Depth 0.5 0.5 0.6 -Total Square Cm 0.30 0.88 0.15 -Date of Last Picture (Recall this 07/10/22 field) -Photo Taken Yes Yes Yes -Epithelialization None Present -Tunneling Yes -Tunneling Position (O'clock) 12 -Tunneling Distance (cm) 0.5 -Undermining/Tunneling No -Circular Undermining No -Exudate Amt Large Medium Small -Exudate Type Serosanguineous Serosanguineous Serosanguineous -Wound Margin Distinct, Distinct, Distinct, Outline Outline Outline Attached Attached Attached -Granulation Amt Large (67-100%) Large (67-100%) Large (67-100%) -Granulation Quality Red Pale,Tolsona [place] -Slough/Fibrin Yes -Necrosis Amt Small (1-33%) None Present (0 Small (1-33%) %) -Necrotic Tissue Type Adherent Slough Adherent Slough -Structure Exposed N/A N/A -Texture (Mima-wound Skin Appearance) Assessed, Scarring Scarring Scarring -Moisture (Mima-wound Skin Appearance) Assessed No Abnormality -Color (Mima-wound Skin Appearance) Assessed Hemosiderin Hemosiderin Staining Staining -Temperature (Mima-wound Skin No Abnormality No Abnormality No Abnormality Appearance) (Pt Warm) (Pt Warm) (Pt Warm) -Tenderness on Palpation (Mima-wound Yes No No Skin Appearance) -Ulcer Cleansing Soap and Water Soap and Water Soap and Water -Foul Odor after Cleansing No No No -Anesthetic Used 5% Lidocaine 5% Lidocaine 5% Lidocaine Gel Gel Gel Lower Limb Edema Present Left Calf (cm) 29.5 29 28.3 Left Ankle (cm) 18.7 18.8 18.5 07/29/22 13:15 Wound Center Nurse 1 #5 Left superior yoder -Combined with other wound No -Current Size (cm) - Length 0.1 -Current Size (cm) - Width 0.1 -Current Size (cm) - Depth 0.1 -Total Square Cm 0.01 -Date of Last Picture (Recall this 07/29/22 field) -Photo Taken Yes -Epithelialization Large 67-100% -Exudate Amt -Exudate Type -Wound Margin -Granulation Amt -Granulation Quality -Necrosis Amt -Necrotic Tissue Type -Structure Exposed -Texture (Mima-wound Skin Appearance) Assessed, Scarring -Moisture (Mima-wound Skin Appearance) Assessed -Color (Mima-wound Skin Appearance) Assessed -Temperature (Mima-wound Skin No Abnormality Appearance) (Pt Warm) -Tenderness on Palpation (Mima-wound No Skin Appearance) -Ulcer Cleansing Soap and Water -Foul Odor after Cleansing No -Anesthetic Used 5% Lidocaine Gel #1- L inferior yoder -Combined with other wound No -Current Size (cm) - Length 0.2 -Current Size (cm) - Width 0.2 -Current Size (cm) - Depth 0.5 -Total Square Cm 0.04 -Date of Last Picture (Recall this 07/29/22 field) -Photo Taken Yes -Epithelialization Small 1-33% -Tunneling No -Tunneling Position (O'clock) -Tunneling Distance (cm) -Undermining/Tunneling No -Circular Undermining No -Exudate Amt Medium -Exudate Type Serosanguineous -Wound Margin Distinct, Outline Attached -Granulation Amt Large (67-100%) -Granulation Quality Red -Slough/Fibrin No -Necrosis Amt None Present (0 %) -Necrotic Tissue Type -Structure Exposed -Texture (Mima-wound Skin Appearance) Assessed, Scarring -Moisture (Mima-wound Skin Appearance) Assessed,Dry/ Scaly -Color (Mima-wound Skin Appearance) Assessed -Temperature (Mima-wound Skin No Abnormality Appearance) (Pt Warm) -Tenderness on Palpation (Mima-wound No Skin Appearance) -Ulcer Cleansing Soap and Water -Foul Odor after Cleansing No -Anesthetic Used 5% Lidocaine Gel Lower Limb Edema Present Yes Left Calf (cm) 27 Left Ankle (cm) 20 WC - Nurse 2 - General Ulcer CM Notes Start: 07/10/22 08:35 Freq: Status: Active Protocol: Activity Type Activity Date Activity User E-sign Co-sign Detail Recorded Client Recorded Date Recorded By Document 07/10/22 09:17 [id number] 07/10/22 09:18 Document 07/17/22 13:29 [id number] 07/17/22 13:35 Document 07/24/22 09:39 [id number] 07/24/22 09:43 Document 07/29/22 13:43 [id number] 07/29/22 13:45 07/10/22 07/17/22 07/24/22 09:17 13:29 09:39 Wound Center Nurse 2 #5 Left superior yoder -Time 13:31 09:39 -Correct Patient Yes Yes -Correct Side, Site, Position Yes Yes -Correct Procedure Yes Yes -Procedure Performed Yes Yes -Type of Procedure Debridement Debridement -Clinical Debridement Subcutaneous Subcutaneous -Tissue Removed Subcutaneous -Post Debridement (cm) - Length 0.6 0.4 -Post Debridement (cm) - Width 0.4 0.2 -Post Debridement (cm) - Depth 0.1 0.5 -Total Square (Post) (cm) 0.24 0.08 -Area of Debridement (cm) - Length 0.6 0.4 -Area of Debridement (cm) - Width 0.4 0.2 -Total Square (Area) (cm) 0.24 0.08 -Tunneling No No -Undermining/Tunneling No No -Circular Undermining No No -Wound/Ulcer Outcome Not Healed Not Healed -Ulcer Cleansing Rinsed/ Rinsed/ Irrigated with Irrigated with Saline Saline -Foul Odor after Cleansing No No -Bioengineered Tissue No No -Bleeding Controlled with Pressure Pressure -Treatment Response Procedure Tolerated Well -Offloading No No -Debridement - Subq, 1st 20sq cm No Yes #1- L inferior yoder -Time 09:17 13:32 09:42 -Correct Patient Yes Yes Yes -Correct Side, Site, Position Yes Yes Yes -Correct Procedure Yes Yes Yes -Procedure Performed Yes Yes Yes -Type of Procedure Debridement Debridement Debridement -Clinical Debridement Subcutaneous Subcutaneous Subcutaneous -Tissue Removed Subcutaneous Subcutaneous Subcutaneous -Post Debridement (cm) - Length 0.6 1.1 0.5 -Post Debridement (cm) - Width 0.6 0.8 0.5 -Post Debridement (cm) - Depth 0.6 0.6 0.5 -Total Square (Post) (cm) 0.36 0.88 0.25 -Area of Debridement (cm) - Length 0.6 1.1 0.5 -Area of Debridement (cm) - Width 0.6 0.8 0.5 -Total Square (Area) (cm) 0.36 0.88 0.25 -Tunneling No No No -Undermining/Tunneling No No No -Circular Undermining No No No -Wound/Ulcer Outcome Not Healed Not Healed -Ulcer Cleansing Rinsed/ Rinsed/ Rinsed/ Irrigated with Irrigated with Irrigated with Saline Saline Saline -Foul Odor after Cleansing No No No -Bioengineered Tissue No No No -Bleeding Controlled with Pressure Pressure Pressure -Treatment Response Procedure Procedure Procedure Tolerated Well Tolerated Well Tolerated Well -Offloading No No No -Debridement - Subq, 1st 20sq cm Yes Yes No Pain Scale: 0-10 Numeric Is Patient Pain Free? Yes Yes Yes 07/29/22 13:43 Wound Center Nurse 2 #5 Left superior yoder -Time 13:44 -Correct Patient Yes -Correct Side, Site, Position Yes -Correct Procedure Yes -Procedure Performed Yes -Type of Procedure Debridement -Clinical Debridement Subcutaneous -Tissue Removed Subcutaneous -Post Debridement (cm) - Length 0.5 -Post Debridement (cm) - Width 0.3 -Post Debridement (cm) - Depth 0.5 -Total Square (Post) (cm) 0.15 -Area of Debridement (cm) - Length 0.5 -Area of Debridement (cm) - Width 0.3 -Total Square (Area) (cm) 0.15 -Tunneling No -Undermining/Tunneling No -Circular Undermining No -Wound/Ulcer Outcome Not Healed -Ulcer Cleansing Rinsed/ Irrigated with Saline -Foul Odor after Cleansing No -Bioengineered Tissue No -Bleeding Controlled with Pressure -Treatment Response Procedure Tolerated Well -Offloading No -Debridement - Subq, 1st 20sq cm No #1- L inferior yoder -Time 13:45 -Correct Patient Yes -Correct Side, Site, Position Yes -Correct Procedure Yes -Procedure Performed Yes -Type of Procedure Debridement -Clinical Debridement Subcutaneous -Tissue Removed Subcutaneous -Post Debridement (cm) - Length 0.5 -Post Debridement (cm) - Width 0.4 -Post Debridement (cm) - Depth 0.6 -Total Square (Post) (cm) 0.20 -Area of Debridement (cm) - Length 0.5 -Area of Debridement (cm) - Width 0.4 -Total Square (Area) (cm) 0.20 -Tunneling No -Undermining/Tunneling No -Circular Undermining No -Wound/Ulcer Outcome Not Healed -Ulcer Cleansing Rinsed/ Irrigated with Saline -Foul Odor after Cleansing No -Bioengineered Tissue No -Bleeding Controlled with Pressure -Treatment Response Procedure Tolerated Well -Offloading No -Debridement - Subq, 1st 20sq cm Yes Pain Scale: 0-10 Numeric Is Patient Pain Free? Yes WC - Nurse 3 - General Ulcer D/C NN Start: 07/10/22 08:35 Freq: Status: Active Protocol: Activity Type Activity Date Activity User E-sign Co-sign Detail Recorded Client Recorded Date Recorded By Document 07/10/22 09:23 RB Desktop 07/10/22 09:24 RB Document 07/17/22 13:37 MW [id number] 07/17/22 13:40 MW Document 07/24/22 09:52 RB [id number] 07/24/22 09:54 RB Document 07/29/22 14:02 DL [id number] 07/29/22 14:05 DL 07/10/22 07/17/22 07/24/22 09:23 13:37 09:52 Wound Care Nurse 3 #5 Left superior yoder -Ulcer Cleansing Rinsed/ Irrigated with Saline -Foul Odor after Cleansing -Negative Pressure Wound Therapy N/A -Primary Dressing Applied Nugauze, Iodoform -Other Dressing aquacel AG -Primary Dressing Covered/Secured with Dry Gauze & Dry Gauze, Roll Gauze Secured with Tape -Nugauze, Iodoform 1/4 1 -Nugauze, Plain Iodoform 1/4 #1- L inferior yoder -Ulcer Cleansing Wound Cleanser Rinsed/ Irrigated with Saline -Foul Odor after Cleansing No No -Negative Pressure Wound Therapy N/A -Primary Dressing Applied Aquacel AG 4x4 Aquacel AG 4x4 -Other Dressing -Primary Dressing Covered/Secured with Dry Gauze, Dry Gauze & Secured with Roll Gauze, Tape Secured with Tape -Other Covering -Aquacel AG 4x4 1 1 Left -Tubular Bandage Double Layer Double Layer -Size of Tubigrip Used Size C Size C -Size C ($) 2 2 Treatment Response Procedure Tolerated Well Pain Scale: 0-10 Numeric Is Patient Pain Free? Yes Yes Yes Teaching: Wound Center Dressing Your Wound -Person Taught Patient -Teaching Method Discussion -Response to teaching Verbalize understanding WC - Visit Discharge Discharge Condition Stable Stable Stable Ambulatory Status Ambulatory Ambulatory Ambulatory Transportation Private Auto wch transport Private Auto Medication Reconcilliation completed & No No No provided to patient/care provider Clinical Summary of Care Provided Yes Yes Yes Facility Type Orders Sent 07/29/22 14:02 Wound Care Nurse 3 #5 Left superior yoder -Ulcer Cleansing Rinsed/ Irrigated with Saline -Foul Odor after Cleansing No -Negative Pressure Wound Therapy -Primary Dressing Applied Nugauze, Plain Iodoform -Other Dressing -Primary Dressing Covered/Secured with Dry Gauze & Roll Gauze, Secured with Tape -Nugauze, Iodoform 1/4 -Nugauze, Plain Iodoform /4 1 #1- L inferior yoder -Ulcer Cleansing Rinsed/ Irrigated with Saline -Foul Odor after Cleansing No -Negative Pressure Wound Therapy -Primary Dressing Applied -Other Dressing Nugauze /4 -Primary Dressing Covered/Secured with Dry Gauze & Roll Gauze, Secured with Tape -Other Covering tubigrip -Aquacel AG 4x4 Left -Tubular Bandage -Size of Tubigrip Used -Size C ($) Treatment Response Procedure Tolerated Well Pain Scale: 0-10 Numeric Is Patient Pain Free? Yes Teaching: Wound Center Dressing Your Wound -Person Taught -Teaching Method -Response to teaching WC - Visit Discharge Discharge Condition Stable Ambulatory Status Ambulatory Transportation Private Auto Medication Reconcilliation completed & provided to patient/care provider Clinical Summary of Care Provided Facility Type Home Health Orders Sent Yes Additional Wound Wound debrided: superior medial leg ulcer Laterality: Left Wound Grade/Stage: Stage II Type of Debridement: Excisional debridement Anesthesia Used: 5% Lidocaine Gel Depth: Down to and including healthy tissue and in the subcutaneous layer Percentage of wound debrided: 100 Instrument Used: 3mm curette Tissue Removed: Devitalized tissue and slough Severity: Fat Layer Exposed Amount of bleeding with debridement: Mild Bleeding Controlled with: Compression and gauze Patient tolerated procedure: Patient tolerated procedure well Assessment/Plan Assessment/Plan (1) Ulcer of left lower extremity with fat layer exposed: CODE(S): L97.922 - Non-pressure chronic ulcer of unspecified part of left lower leg with fat layer exposed (2) Delayed wound healing: CODE(S): T14.8XXD - Other injury of unspecified body region, subsequent encounter (3) Osteomyelitis: CODE(S): M86.9 - Osteomyelitis, unspecified (4) Venous insufficiency (chronic) (peripheral): CODE(S): I87.2 - Venous insufficiency (chronic) (peripheral) (5) Localized edema: CODE(S): R60.0 - Localized edema (6) Rheumatoid arthritis: CODE(S): M06.9 - Rheumatoid arthritis, unspecified (7) Tobacco use disorder: CODE(S): F17.200 - Nicotine dependence, unspecified, uncomplicated (8) Malnutrition: CODE(S): E46 - Unspecified protein-calorie malnutrition (9) Body mass index [BMI] 19.9 or less, adult: CODE(S): Z68.1 - Body mass index [BMI] 19.9 or less, adult (10) Injury of left foot: CODE(S): S99.922A - Unspecified injury of left foot, initial encounter (11) Difficulty in walking, not elsewhere classified: CODE(S): R26.2 - Difficulty in walking, not elsewhere classified (12) Nondisplaced fracture of fifth metatarsal bone, left foot, subsequent encounter for fracture with routine healing: CODE(S): S92.355D - Nondisplaced fracture of fifth metatarsal bone, left foot, subsequent encounter for fracture with routine healing (13) Family history of diabetes mellitus in first degree relative: CODE(S): Z83.3 - Family history of diabetes mellitus PLAN: Plan Patient evaluated at the wound healing center today. Debridement was performed today as previously documented. Wound care - Packi 1/4 iodoform gauze topped with gauze to both the ulcers daily after washing with soap and water. Double tubigrip for compression. She states her compression stockings are too tight right now. Keep leg elevated to help control swelling. Wound culture obtained which was positive for MRSA. She was referred to Dr. Holt, [place], for treatment. She has been receiving Kimyrsa infusion weekly, which she completes this week. Wound culture obtained 07/10/22, which was positive for MRSA (rare amount). Imaging: Left leg xrays were recently updated (02-20-22) - there is a healed fracture in the mid third of the left tibia but apparently there is periosteal reaction and what appears to be chronic osteomyelitis with possibility of sinus tract. Her MRI is scheduled for 08/08/22. She has a history of osteomyelitis. She had labwork drawn on 07/19/22 to check a fasting glucose 84 and HgA1c was 5.7. She had concerns about her blood sugars because they have been high the past couple times she has had blood work drawn and she has a significant family history for diabetes. Vascular / edema: She has nonpalpable pulses and lack of hair. She also has questionable claudication presentation. she had noninvasive vascular studies including MARI, segmental thigh and leg pressure, PVR, and systolic toe pressure. The results were reviewed and she has left biphasic waveforms, left MARI of 1.2, and left toe brachial index is 0.72. The segmental thigh and leg pressures were not obtained. There is not a difference of over 30 mmHg when compared to arm pressures. She is also advised to discontinue all tobacco products to optimize healing and limb salvage opportunities. Due to ongoing lack of healing, a vascular referral was provided for Dr. Rdz. She started intervention and was advised to follow-up with her scheduled ultrasound as advised. Her treatment is mainly for venous insufficiency at this time. She has significant delays in healing. We discussed tobacco cessation and how this impairs healing. She has some muscle wasting and delayed healing and nutritional supplementation would also be beneficial. She is underweight and is not consuming adequate micro or macronutrients. Encouraged to supplement of protein intake. She was referred for a nutrition referral to optimize healing. She has rheumatoid arthritis and understands this may also delay her healing. She was urged to reduce smoking; discussed at length again today. Her outcome prognosis is poor with continued tobacco use. Follow up two weeks, after her MRI. She is to call or come in sooner if she develops any issues.
== END 2022-08-07 23:59 | disposition home or self-care (01) ==
LOC: WC 13:30
PROVIDERS: Referring Provider Podiatrist; Visit Provider Nurse Practitioner Family
DX: L97.922 Non-pressure chronic ulcer of unspecified part of left lower leg with fat layer exposed (principal); E46 Unspecified protein-calorie malnutrition; M06.9 Rheumatoid arthritis, unspecified; M86.9 Osteomyelitis, unspecified; E11.59 Type 2 diabetes mellitus with other circulatory complications; R60.0 Localized edema; F41.9 Anxiety disorder, unspecified; R26.2 Difficulty in walking, not elsewhere classified; I87.2 Venous insufficiency (chronic) (peripheral); F17.200 Nicotine dependence, unspecified, uncomplicated; Z68.1 Body mass index [BMI] 19.9 or less, adult; S92.355D Nondisplaced fracture of fifth metatarsal bone, left foot, subsequent encounter for fracture with routine healing; Z83.3 Family history of diabetes mellitus; T14.8XXD Other injury of unspecified body region, subsequent encounter
CPT/HCPCS: 11042; 87070; 87075; 87077; 87186; 87205

== ENCOUNTER → 2022-08-08 | Outpatient (CLI) | payer MEDICAID, SELFPAY ==
--- NOTE | 2022-08-08 10:48 | MRI_ITS ---
EXAM: MR Tibia/Fibula WO/W Contrast LEFT HISTORY: LEFT RODNEY ULCER;OSTEOMYELITIS TECHNIQUE: MR Tibia/Fibula WO/W Contrast LEFT COMPARISON: None. LIMITATIONS: None. FINDINGS: There is diffuse subcutaneous edema. Myositis, predominantly of the anterior musculature. No mature abscess identified. Old fractures are in the mid to distal diaphyses of the tibia and fibula. At the site of callus formation and deformity at the old fracture site in the mid to distal diaphysis of the tibia, there is absence of the cortex at the medial aspect. Three sinus tracts extend from the marrow of the tibia through the subcutaneous soft tissue to the skin medially. There is marrow edema and enhancement of the tibia at the level of the sinus tracts, extending through nearly the entire tibia. No marrow edema of the fibula. MRI/Lower Ext No Joint W/WO Cont IMPRESSION: Sinus tracts from the marrow of the mid to distal tibial diaphysis to the skin at the medial aspect. Marrow edema throughout the majority of the tibia. Findings concerning for osteomyelitis. Electronically Signed: Sina Trammell MD at 9:07 EST ,
== END | disposition home or self-care (01) ==
LOC: MRI 09:57
PROVIDERS: Referring Provider Nurse Practitioner Family; Visit Provider Nurse Practitioner Family
DX: L97.229 Non-pressure chronic ulcer of left calf with unspecified severity (principal); M86.9 Osteomyelitis, unspecified
CPT/HCPCS: 73720; A9575

== ENCOUNTER 2022-08-28 09:30 | Outpatient (RCR) | payer MEDICAID, SELFPAY ==
[2022-08-08 00:23] VITALS: BP 140/65; PULSE 91; RESP 16; TEMP 36.6; BMI 20.5
[2022-08-14 10:02] VITALS: BP 142/73; PULSE 87; RESP 18; TEMP 36.5; BMI 20.5
--- NOTE | 2022-08-14 10:33 | PCM.WC.PN ---
History of Present Illness Date of Service: 08/14/22 Chief Complaint: left leg ulcer History of Wound: This 61-year-old female was seen today for left leg ulcer. She denies fever, chill, nausea, vomiting, diarrhea. She tries to wear compression garment. She denies leg pain, redness, or odor. She denies trauma or recent increase in swelling. She had venous intervention with vascular specialist, Dr. Rdz. She has been wearing her compression stocking as advised anytime she is not wearing a 3M 2L compression dressing. She continues to smoke and has vascular disease. She also has rheumatoid arthritis. 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 She was given a prescription for Jay and Glucerna previously. She also had an injury to her left foot while stepping down she had some popping and cracking within the past month. She was fitted with a cam walker boot and she has reduction in pain since she has been wearing this. She had a Sullivan fracture which was being managed by [facility], they have discharged her from their care. Wound culture obtained on 05/15/22 which was positive for MRSA. She was referred to Dr. Holt, [place], for treatment. She has been receiving Kimyrsa infusion weekly. When her ulcer enlarged, another wound culture was obtained on 07/10/22, which was also positive for MRSA, but for a rare amount. She sees Dr. Holt, who is managing her infusion therapy. On 07/19/22 she had a HgbA1c that was 5.7 with a fasting glucose of 84. Left lower leg MRI on 08/08/22 which showed Sinus tracts from the marrow of the mid to distal tibial diaphysis to the skin at the medial aspect. Marrow edema throughout the majority of the tibia. Findings concerning for osteomyelitis. Spoke with Dr. Holt on 08/14/22 and he states that the antibiotic that she just completed should cover an osteomyelitis and close observation for a couple months is reasonable before considering an operative debridement. Progress of Wound: Left medial leg ulcer (inferior) is stable but still has depth and able to palpate bone. The newer ulcer on the left medial leg (superior ulcer) is healed today. Her edema is +1. She denies fever, chills, nausea, vomiting. Objective Data Objective Data Vital Signs: Vital Signs Temp Pulse Resp BP 97.7 F L 87 18 142/73 H 08/14/22 10:02 08/14/22 10:02 08/14/22 10:02 08/14/22 10:02 Weight: 95 lb Body Mass Index (BMI) 20.5 Charges/Coding Procedures Integumentary 111xxx-113xx: 27522 Miryam subq tissue 20 sq cm/< Debridement Note Debridement Note Wound debrided: medial leg ulcer - inferior Laterality: Left Wound Grade/Stage: Stage IV Type of Debridement: Excisional debridement Anesthesia Used: 5% Lidocaine Gel Depth: Down to and including healthy tissue and in the subcutaneous layer Percentage of wound debrided: 100 Instrument Used: 3mm curette Tissue Removed: Devitalized tissue and slough to bone Severity: Fat Layer Exposed Amount of bleeding with debridement: Mild Bleeding Controlled with: Compression and gauze Patient tolerated procedure: Patient tolerated procedure well Post-Debridement Measurements and Additional Note: Post-Debridement Measurements/Treatment - Nurse 1 - General Ulcer Assessment Start: 08/14/22 10:01 Freq: Status: Active Protocol: ELENA Activity Type Activity Date Activity User E-sign Co-sign Detail Recorded Client Recorded Date Recorded By Document 08/14/22 10:02 [id number] 08/14/22 10:04 MODE 08/14/22 10:02 - Today's Visit Information Type of service Follow-up Visit (Physician/SVP RESEARCH AND STRATEGIC ANALYSIS ) Arrival Mode Ambulatory Transfer Assistance None Patient Identification Verified (Name & Yes ) Patient Requires Transmission-Based No Precautions Height and Weight Body Mass Index (BMI) 20.5 BMI Classification Normal Vital Signs Temperature (97.8 F-99.1 F) 97.7 F L Temperature Source Temporal Pulse Rate (60-100) 87 Pulse Location Monitor Respiratory Rate (12-18) 18 Respiratory rate source Observation Blood Pressure (90/60-120/80) 142/73 H Blood Pressure Mean (mm Hg) 96 Source Monitor Position Semi-Fowlers Blood Pressure Location Left Arm History Since Last Visit- (Skip if this is Patient's initial visit) Have you changed medications since your No last visit? Any new allergies or adverse reactions No Had a fall/change in ADL's that may No increase risk of falls Signs or symptoms of abuse and/or No neglect since last visit Have you been in the hospital since your No last visit? Has compression in place as prescribed Yes Has offloadiing in place as prescribed No Experienced any changes in pain level or No management Pain Scale: 0-10 Numeric Is Patient Pain Free? Yes WC - Nurse 1 - General Ulcer Measurement Start: 08/14/22 10:01 Freq: Status: Active Protocol: Activity Type Activity Date Activity User E-sign Co-sign Detail Recorded Client Recorded Date Recorded By Document 08/14/22 10:02 MODE [id number] 08/14/22 10:04 MODE 08/14/22 10:02 Wound Center Nurse 1 #5 Left superior yoder -Combined with other wound No -Current Size (cm) - Length 0.1 -Current Size (cm) - Width 0.1 -Current Size (cm) - Depth 0.1 -Total Square Cm 0.01 -Tunneling No -Undermining/Tunneling No -Circular Undermining No -Exudate Amt None Present -Wound Margin Distinct, Outline Attached -Granulation Amt Large (67-100%) -Granulation Quality Granite -Slough/Fibrin Yes -Necrosis Amt Small (1-33%) -Necrotic Tissue Type Adherent Slough -Structure Exposed N/A -Texture (Mima-wound Skin Appearance) Assessed -Moisture (Mima-wound Skin Appearance) Dry/Scaly -Color (Mima-wound Skin Appearance) Assessed -Temperature (Mima-wound Skin No Abnormality Appearance) (Pt Warm) -Tenderness on Palpation (Mima-wound No Skin Appearance) -Ulcer Cleansing Wound Cleanser -Foul Odor after Cleansing No -Anesthetic Used 5% Lidocaine Gel #1- L inferior yoder -Combined with other wound No -Current Size (cm) - Length 0.4 -Current Size (cm) - Width 0.4 -Current Size (cm) - Depth 1 -Total Square Cm 0.16 -Photo Taken Yes -Tunneling Yes -Tunneling Position (O'clock) 2 -Tunneling Distance (cm) 2 -Undermining/Tunneling No -Circular Undermining No -Exudate Amt Medium -Exudate Type Serosanguineous -Wound Margin Distinct, Outline Attached -Granulation Amt Medium (34-66%) -Granulation Quality Granite -Slough/Fibrin Yes -Necrosis Amt Small (1-33%) -Necrotic Tissue Type Adherent Slough -Structure Exposed N/A -Texture (Mima-wound Skin Appearance) Scarring -Moisture (Mima-wound Skin Appearance) Assessed -Color (Mima-wound Skin Appearance) Assessed -Temperature (Mima-wound Skin No Abnormality Appearance) (Pt Warm) -Tenderness on Palpation (Mima-wound No Skin Appearance) -Ulcer Cleansing Wound Cleanser -Anesthetic Used 5% Lidocaine Gel WC - Nurse 2 - General Ulcer CM Notes Start: 08/14/22 10:01 Freq: Status: Active Protocol: Activity Type Activity Date Activity User E-sign Co-sign Detail Recorded Client Recorded Date Recorded By Document 08/14/22 10:17 TENZIN [id number] 08/14/22 10:18 TENZIN 08/14/22 10:17 Wound Center Nurse 2 #5 Left superior yoder -Correct Patient No -Correct Side, Site, Position No -Correct Procedure No -Procedure Performed No -Post Debridement (cm) - Length 0 -Post Debridement (cm) - Width 0 -Post Debridement (cm) - Depth 0 -Total Square (Post) (cm) 0 -Area of Debridement (cm) - Length 0 -Area of Debridement (cm) - Width 0 -Total Square (Area) (cm) 0 -Wound/Ulcer Outcome Healed- Epithelialized #1- L inferior yoder -Time 10:17 -Correct Patient Yes -Correct Side, Site, Position Yes -Correct Procedure Yes -Procedure Performed Yes -Type of Procedure Debridement -Clinical Debridement Subcutaneous -Tissue Removed Subcutaneous -Post Debridement (cm) - Length 0.6 -Post Debridement (cm) - Width 0.4 -Post Debridement (cm) - Depth 0.5 -Total Square (Post) (cm) 0.24 -Area of Debridement (cm) - Length 0.6 -Area of Debridement (cm) - Width 0.4 -Total Square (Area) (cm) 0.24 -Tunneling No -Undermining/Tunneling No -Circular Undermining No -Wound/Ulcer Outcome Not Healed -Ulcer Cleansing Rinsed/ Irrigated with Saline -Foul Odor after Cleansing No -Bioengineered Tissue No -Bleeding Controlled with Pressure -Treatment Response Procedure Tolerated Well -Offloading No -Debridement - Subq, 1st 20sq cm Yes Pain Scale: 0-10 Numeric Is Patient Pain Free? Yes WC - Nurse 3 - General Ulcer D/C NN Start: 08/14/22 10:01 Freq: Status: Active Protocol: Activity Type Activity Date Activity User E-sign Co-sign Detail Recorded Client Recorded Date Recorded By Document 08/14/22 10:20 TENZIN [id number] 08/14/22 10:21 TENZIN 08/14/22 10:20 Wound Care Nurse 3 #1- L inferior yoder -Ulcer Cleansing Rinsed/ Irrigated with Saline -Foul Odor after Cleansing No -Primary Dressing Applied Nugauze, Iodoform -Primary Dressing Covered/Secured with Dry Gauze, Secured with Tape -Nugauze, Iodoform 1/4 1 Left -Tubular Bandage Double Layer -Size of Tubigrip Used Size D -Size D ($) 2 Pain Scale: 0-10 Numeric Is Patient Pain Free? Yes WC - Visit Discharge Discharge Condition Stable Ambulatory Status Ambulatory Transportation Private Auto Medication Reconcilliation completed & Yes provided to patient/care provider Clinical Summary of Care Provided Yes Assessment/Plan Assessment/Plan (1) Ulcer of left lower extremity with fat layer exposed: CODE(S): L97.922 - Non-pressure chronic ulcer of unspecified part of left lower leg with fat layer exposed (2) Delayed wound healing: CODE(S): T14.8XXD - Other injury of unspecified body region, subsequent encounter (3) Osteomyelitis: CODE(S): M86.9 - Osteomyelitis, unspecified (4) Venous insufficiency (chronic) (peripheral): CODE(S): I87.2 - Venous insufficiency (chronic) (peripheral) (5) Localized edema: CODE(S): R60.0 - Localized edema (6) Rheumatoid arthritis: CODE(S): M06.9 - Rheumatoid arthritis, unspecified (7) Tobacco use disorder: CODE(S): F17.200 - Nicotine dependence, unspecified, uncomplicated (8) Malnutrition: CODE(S): E46 - Unspecified protein-calorie malnutrition (9) Body mass index [BMI] 19.9 or less, adult: CODE(S): Z68.1 - Body mass index [BMI] 19.9 or less, adult (10) Family history of diabetes mellitus in first degree relative: CODE(S): Z83.3 - Family history of diabetes mellitus PLAN: Plan Patient evaluated at the wound healing center today. Debridement was performed today as previously documented. Wound care - Packi 1/4 iodoform gauze topped with gauze to both the ulcers daily after washing with soap and water. Double tubigrip for compression. She states her compression stockings are too tight right now. Keep leg elevated to help control swelling. Wound culture obtained which was positive for MRSA. She was referred to Dr. Holt, [place], for treatment. She has been received 5 infusions of Kimyrsa. Wound culture obtained 07/10/22, which was positive for MRSA (rare amount). Imaging: Left leg xrays were recently updated (02-20-22) - there is a healed fracture in the mid third of the left tibia but apparently there is periosteal reaction and what appears to be chronic osteomyelitis with possibility of sinus tract. Left lower leg MRI on 08/08/22 which showed Sinus tracts from the marrow of the mid to distal tibial diaphysis to the skin at the medial aspect. Marrow edema throughout the majority of the tibia. Findings concerning for osteomyelitis. Spoke with Dr. Holt on 08/14/22 and he states that the antibiotic that she just completed should cover an osteomyelitis and close observation for a couple months is reasonable before considering an operative debridement. She had labwork drawn on 07/19/22 to check a fasting glucose 84 and HgA1c was 5.7. She had concerns about her blood sugars because they have been high the past couple times she has had blood work drawn and she has a significant family history for diabetes. Vascular / edema: She has nonpalpable pulses and lack of hair. She also has questionable claudication presentation. she had noninvasive vascular studies including MARI, segmental thigh and leg pressure, PVR, and systolic toe pressure. The results were reviewed and she has left biphasic waveforms, left MARI of 1.2, and left toe brachial index is 0.72. The segmental thigh and leg pressures were not obtained. There is not a difference of over 30 mmHg when compared to arm pressures. She is also advised to discontinue all tobacco products to optimize healing and limb salvage opportunities. Due to ongoing lack of healing, a vascular referral was provided for Dr. Rdz. She started intervention and was advised to follow-up with her scheduled ultrasound as advised. Her treatment is mainly for venous insufficiency at this time. She has significant delays in healing. We discussed tobacco cessation and how this impairs healing. She has some muscle wasting and delayed healing and nutritional supplementation would also be beneficial. She is underweight and is not consuming adequate micro or macronutrients. Encouraged to supplement of protein intake. She was referred for a nutrition referral to optimize healing. She has rheumatoid arthritis and understands this may also delay her healing. She was urged to reduce smoking; discussed at length again today. Her outcome prognosis is poor with continued tobacco use. Phoned patient and discussed with her what Dr. Holt said about her osteomyelitis. She agrees with watching for 1-2 months to see if there is any improvement after receiving the Kimyrsa. Follow up two weeks. She is to call or come in sooner if she develops any issues.
[2022-08-28 09:12] VITALS: BP 138/75; PULSE 87; RESP 18; TEMP 36.6; BMI 20.5
--- NOTE | 2022-08-28 11:20 | PCM.WC.PN ---
History of Present Illness Date of Service: 08/28/22 Chief Complaint: left leg ulcer History of Wound: This 61-year-old female was seen today for left leg ulcer. She denies fever, chill, nausea, vomiting, diarrhea. She tries to wear compression garment. She denies leg pain, redness, or odor. She denies trauma or recent increase in swelling. She had venous intervention with vascular specialist, Dr. Rdz. She has been wearing her compression stocking as advised anytime she is not wearing a 3M 2L compression dressing. She continues to smoke and has vascular disease. She also has rheumatoid arthritis. She went for a pourer crane ladle referral and is struggling to make the recommended changes. She was given a prescription for Jay and Glucerna previously. She also had an injury to her left foot while stepping down she had some popping and cracking within the past month. She was fitted with a cam walker boot and she has reduction in pain since she has been wearing this. She had a Sullivan fracture which was being managed by [facility], they have discharged her from their care. Wound culture obtained on 05/15/22 which was positive for MRSA. She was referred to Dr. Holt, [place], for treatment. She has been receiving Kimyrsa infusion weekly. When her ulcer enlarged, another wound culture was obtained on 07/10/22, which was also positive for MRSA, but for a rare amount. She sees Dr. Holt, who is managing her infusion therapy. On 07/19/22 she had a HgbA1c that was 5.7 with a fasting glucose of 84. Left lower leg MRI on 08/08/22 which showed Sinus tracts from the marrow of the mid to distal tibial diaphysis to the skin at the medial aspect. Marrow edema throughout the majority of the tibia. Findings concerning for osteomyelitis. Spoke with Dr. Holt on 08/14/22 and he states that the antibiotic that she just completed should cover an osteomyelitis and close observation for a couple months is reasonable before considering an operative debridement. Progress of Wound: Left medial leg ulcer (inferior) is stable but still has depth and able to palpate bone. The left medial leg superior ulcer has reopened. Her edema is +1. She denies fever, chills, nausea, vomiting. Objective Data Objective Data Vital Signs: Vital Signs Temp Pulse Resp BP 97.8 F 87 18 138/75 H 08/28/22 09:12 08/28/22 09:12 08/28/22 09:12 08/28/22 09:12 Weight: 95 lb Body Mass Index (BMI) 20.5 Charges/Coding Procedures Integumentary 111xxx-113xx: [id number] Miryam subq tissue 20 sq cm/< Debridement Note Debridement Note Wound debrided: medial leg ulcer - inferior Laterality: Left Wound Grade/Stage: Stage IV Type of Debridement: Excisional debridement Anesthesia Used: 5% Lidocaine Gel Depth: Down to and including healthy tissue and in the subcutaneous layer Percentage of wound debrided: 100 Instrument Used: 3mm curette Tissue Removed: Devitalized tissue and slough to bone Severity: Fat Layer Exposed Amount of bleeding with debridement: Mild Bleeding Controlled with: Compression and gauze Patient tolerated procedure: Patient tolerated procedure well Post-Debridement Measurements and Additional Note: Post-Debridement Measurements/Treatment WC - Nurse 1 - General Ulcer Assessment Start: 08/14/22 10:01 Freq: Status: Active Protocol: ELENA Activity Type Activity Date Activity User E-sign Co-sign Detail Recorded Client Recorded Date Recorded By Document 08/14/22 10:02 RB [id number] 08/14/22 10:04 RB Document 08/28/22 09:12 RB [id number] 08/28/22 09:20 RB 08/14/22 08/28/22 10:02 09:12 - Today's Visit Information Type of service Follow-up Visit Follow-up Visit (Physician/PERSONAL LINES UNDERWRITER (Physician/PERSONAL LINES UNDERWRITER ) ) Arrival Mode Ambulatory Ambulatory Transfer Assistance None None Patient Identification Verified (Name & Yes Yes ) Patient Requires Transmission-Based No No Precautions Height and Weight Body Mass Index (BMI) 20.5 20.5 BMI Classification Normal Normal Vital Signs Temperature (97.8 F-99.1 F) 97.7 F L 97.8 F Temperature Source Temporal Temporal Pulse Rate (60-100) 87 87 Pulse Location Monitor Monitor Respiratory Rate (12-18) 18 18 Respiratory rate source Observation Observation Blood Pressure (90/60-120/80) 142/73 H 138/75 H Blood Pressure Mean (mm Hg) 96 96 Source Monitor Monitor Position Semi-Fowlers Sitting Blood Pressure Location Left Arm Left Arm History Since Last Visit- (Skip if this is Patient's initial visit) Have you changed medications since your No No last visit? Any new allergies or adverse reactions No No Had a fall/change in ADL's that may No No increase risk of falls Signs or symptoms of abuse and/or No No neglect since last visit Have you been in the hospital since your No No last visit? Has dressing in place as prescribed Yes Has compression in place as prescribed Yes No Has offloadiing in place as prescribed No N/A Experienced any changes in pain level or No No management Pain Scale: 0-10 Numeric Is Patient Pain Free? Yes Yes WC - Nurse 1 - General Ulcer Measurement Start: 08/14/22 10:01 Freq: Status: Active Protocol: Activity Type Activity Date Activity User E-sign Co-sign Detail Recorded Client Recorded Date Recorded By Document 08/14/22 10:02 RB [id number] 08/14/22 10:04 RB Document 08/28/22 09:12 RB [id number] 08/28/22 09:20 RB 08/14/22 08/28/22 10:02 09:12 Wound Center Nurse 1 #5 Left superior yoder -Combined with other wound No -Current Size (cm) - Length 0.1 -Current Size (cm) - Width 0.1 -Current Size (cm) - Depth 0.1 -Total Square Cm 0.01 -Tunneling No -Undermining/Tunneling No -Circular Undermining No -Exudate Amt None Present -Wound Margin Distinct, Outline Attached -Granulation Amt Large (67-100%) -Granulation Quality [place] -Slough/Fibrin Yes -Necrosis Amt Small (1-33%) -Necrotic Tissue Type Adherent Slough -Structure Exposed N/A -Texture (Mima-wound Skin Appearance) Assessed -Moisture (Mima-wound Skin Appearance) Dry/Scaly -Color (Mima-wound Skin Appearance) Assessed -Temperature (Mima-wound Skin No Abnormality Appearance) (Pt Warm) -Tenderness on Palpation (Mima-wound No Skin Appearance) -Ulcer Cleansing Wound Cleanser -Foul Odor after Cleansing No -Anesthetic Used 5% Lidocaine Gel #1- L inferior yoder -Combined with other wound No -Current Size (cm) - Length 0.4 0.2 -Current Size (cm) - Width 0.4 0.2 -Current Size (cm) - Depth 1 2.3 -Total Square Cm 0.16 0.04 -Photo Taken Yes Yes -Tunneling Yes -Tunneling Position (O'clock) 2 -Tunneling Distance (cm) 2 -Undermining/Tunneling No -Circular Undermining No -Exudate Amt Medium Medium -Exudate Type Serosanguineous Serosanguineous -Wound Margin Distinct, Distinct, Outline Outline Attached Attached -Granulation Amt Medium (34-66%) None Present (0 %) -Granulation Quality [place] -Slough/Fibrin Yes -Necrosis Amt Small (1-33%) Small (1-33%) -Necrotic Tissue Type Adherent Slough Adherent Slough -Structure Exposed N/A N/A -Texture (Mima-wound Skin Appearance) Scarring Scarring -Moisture (Mima-wound Skin Appearance) Assessed No Abnormality -Color (Mima-wound Skin Appearance) Assessed Hemosiderin Staining -Temperature (Mima-wound Skin No Abnormality No Abnormality Appearance) (Pt Warm) (Pt Warm) -Tenderness on Palpation (Mima-wound No Skin Appearance) -Ulcer Cleansing Wound Cleanser Soap and Water -Foul Odor after Cleansing No -Anesthetic Used 5% Lidocaine 5% Lidocaine Gel Gel Left Calf (cm) 29.5 Left Ankle (cm) 19.7 WC - Nurse 2 - General Ulcer CM Notes Start: 08/14/22 10:01 Freq: Status: Active Protocol: Activity Type Activity Date Activity User E-sign Co-sign Detail Recorded Client Recorded Date Recorded By Document 08/14/22 10:17 [id number] 08/14/22 10:18 Document 08/28/22 09:47 [id number] 08/28/22 09:50 08/14/22 08/28/22 10:17 09:47 Wound Center Nurse 2 #5 Left superior yoder -Time 09:49 -Correct Patient No Yes -Correct Side, Site, Position No Yes -Correct Procedure No Yes -Procedure Performed No Yes -Type of Procedure Debridement -Clinical Debridement Subcutaneous -Tissue Removed Subcutaneous -Post Debridement (cm) - Length 0 0.5 -Post Debridement (cm) - Width 0 0.3 -Post Debridement (cm) - Depth 0 0.3 -Total Square (Post) (cm) 0 0.15 -Area of Debridement (cm) - Length 0 0.5 -Area of Debridement (cm) - Width 0 0.3 -Total Square (Area) (cm) 0 0.15 -Tunneling No -Undermining/Tunneling No -Circular Undermining No -Wound/Ulcer Outcome Healed- Not Healed Epithelialized -Ulcer Cleansing Rinsed/ Irrigated with Saline -Foul Odor after Cleansing No -Bioengineered Tissue No -Bleeding Controlled with Pressure -Treatment Response Procedure Tolerated Well -Offloading No -Debridement - Subq, 1st 20sq cm No #1- L inferior yoder -Time 10:17 09:48 -Correct Patient Yes Yes -Correct Side, Site, Position Yes Yes -Correct Procedure Yes Yes -Procedure Performed Yes Yes -Type of Procedure Debridement Debridement -Clinical Debridement Subcutaneous Subcutaneous -Tissue Removed Subcutaneous Subcutaneous -Post Debridement (cm) - Length 0.6 0.3 -Post Debridement (cm) - Width 0.4 0.3 -Post Debridement (cm) - Depth 0.5 0.7 -Total Square (Post) (cm) 0.24 0.09 -Area of Debridement (cm) - Length 0.6 0.3 -Area of Debridement (cm) - Width 0.4 0.3 -Total Square (Area) (cm) 0.24 0.09 -Tunneling No No -Undermining/Tunneling No No -Circular Undermining No No -Wound/Ulcer Outcome Not Healed Not Healed -Ulcer Cleansing Rinsed/ Rinsed/ Irrigated with Irrigated with Saline Saline -Foul Odor after Cleansing No No -Bioengineered Tissue No No -Bleeding Controlled with Pressure Pressure -Treatment Response Procedure Procedure Tolerated Well Tolerated Well -Offloading No No -Debridement - Subq, 1st 20sq cm Yes Yes Pain Scale: 0-10 Numeric Is Patient Pain Free? Yes Yes - Nurse 3 - General Ulcer D/C NN Start: 08/14/22 10:01 Freq: Status: Active Protocol: Activity Type Activity Date Activity User E-sign Co-sign Detail Recorded Client Recorded Date Recorded By Document 08/14/22 10:20 TENZIN [id number] 08/14/22 10:21 TENZIN Document 08/28/22 10:13 TENZIN [id number] 08/28/22 10:13 TENZIN 08/14/22 08/28/22 10:20 10:13 Wound Care Nurse 3 #5 Left superior yoder -Ulcer Cleansing Rinsed/ Irrigated with Saline -Foul Odor after Cleansing No -Primary Dressing Covered/Secured with Dry Gauze,Dry Gauze & Roll Gauze,Secured with Tape #1- L inferior yoder -Ulcer Cleansing Rinsed/ Rinsed/ Irrigated with Irrigated with Saline Saline -Foul Odor after Cleansing No No -Primary Dressing Applied Nugauze, Iodoform -Primary Dressing Covered/Secured with Dry Gauze, Dry Gauze,Dry Secured with Gauze & Roll Tape Gauze,Secured with Tape -Nugauze, Iodoform 1/4 1 Left -Tubular Bandage Double Layer Double Layer -Size of Tubigrip Used Size D Size D -Size D ($) 2 2 Pain Scale: 0-10 Numeric Is Patient Pain Free? Yes Yes WC - Visit Discharge Discharge Condition Stable Stable Ambulatory Status Ambulatory Ambulatory Transportation Private Auto Private Auto Medication Reconcilliation completed & Yes Yes provided to patient/care provider Clinical Summary of Care Provided Yes Yes Additional Wound Wound debrided: superior medial leg ulcer Laterality: Left Wound Grade/Stage: Stage II Type of Debridement: Excisional debridement Anesthesia Used: 5% Lidocaine Gel Depth: Down to and including healthy tissue and in the subcutaneous layer Percentage of wound debrided: 100 Instrument Used: 3mm curette Tissue Removed: Devitalized tissue and slough Severity: Fat Layer Exposed Amount of bleeding with debridement: Mild Bleeding Controlled with: Compression and gauze Patient tolerated procedure: Patient tolerated procedure well Assessment/Plan Assessment/Plan (1) Ulcer of left lower extremity with fat layer exposed: CODE(S): L97.922 - Non-pressure chronic ulcer of unspecified part of left lower leg with fat layer exposed (2) Osteomyelitis: CODE(S): M86.9 - Osteomyelitis, unspecified (3) Delayed wound healing: CODE(S): T14.8XXD - Other injury of unspecified body region, subsequent encounter (4) Venous insufficiency (chronic) (peripheral): CODE(S): I87.2 - Venous insufficiency (chronic) (peripheral) (5) Localized edema: CODE(S): R60.0 - Localized edema (6) Rheumatoid arthritis: CODE(S): M06.9 - Rheumatoid arthritis, unspecified (7) Tobacco use disorder: CODE(S): F17.200 - Nicotine dependence, unspecified, uncomplicated (8) Malnutrition: CODE(S): E46 - Unspecified protein-calorie malnutrition (9) Body mass index [BMI] 19.9 or less, adult: CODE(S): Z68.1 - Body mass index [BMI] 19.9 or less, adult (10) Family history of diabetes mellitus in first degree relative: CODE(S): Z83.3 - Family history of diabetes mellitus PLAN: Plan Patient evaluated at the wound healing center today. Debridement was performed today as previously documented. Wound care - Pack 1/4 iodoform gauze topped with gauze to both the ulcers daily after washing with soap and water. Double tubigrip for compression. Keep leg elevated to help control swelling. Wound culture obtained which was positive for MRSA. She was referred to Dr. Holt, [place], for treatment. She completed her infusions of Kimyrsa. Wound culture obtained 07/10/22, which was positive for MRSA. Imaging: Left leg xrays were recently updated (02-20-22) - there is a healed fracture in the mid third of the left tibia but apparently there is periosteal reaction and what appears to be chronic osteomyelitis with possibility of sinus tract. Left lower leg MRI on 08/08/22 which showed Sinus tracts from the marrow of the mid to distal tibial diaphysis to the skin at the medial aspect. Marrow edema throughout the majority of the tibia. Findings concerning for osteomyelitis. Spoke with Dr. Holt on 08/14/22 and he states that the antibiotic that she just completed should cover an osteomyelitis and close observation for a couple months is reasonable before considering an operative debridement. She had lab work drawn on 07/19/22 to check a fasting glucose 84 and HgA1c was 5.7. She had concerns about her blood sugars because they have been high the past couple times she has had blood work drawn and she has a significant family history for diabetes. Vascular / edema: She has nonpalpable pulses and lack of hair. She also has questionable claudication presentation. she had noninvasive vascular studies including MARI, segmental thigh and leg pressure, PVR, and systolic toe pressure. The results were reviewed and she has left biphasic waveforms, left MARI of 1.2, and left toe brachial index is 0.72. The segmental thigh and leg pressures were not obtained. There is not a difference of over 30 mmHg when compared to arm pressures. She is also advised to discontinue all tobacco products to optimize healing and limb salvage opportunities. Due to ongoing lack of healing, a vascular referral was provided for Dr. Rdz. She started intervention and was advised to follow-up with her scheduled ultrasound as advised. Her treatment is mainly for venous insufficiency at this time. She has significant delays in healing. We discussed tobacco cessation and how this impairs healing. She has some muscle wasting and delayed healing and nutritional supplementation would also be beneficial. She is underweight and is not consuming adequate micro or macronutrients. Encouraged to supplement of protein intake. She was referred for a nutrition referral to optimize healing. She has rheumatoid arthritis and understands this may also delay her healing. She was urged to reduce smoking; discussed at length again today. Her outcome prognosis is poor with continued tobacco use. Follow up two weeks. She is to call or come in sooner if she develops any issues.
== END 2022-09-07 23:59 | disposition home or self-care (01) ==
LOC: WC 09:30
PROVIDERS: Referring Provider Podiatrist; Visit Provider Nurse Practitioner Family
DX: L97.922 Non-pressure chronic ulcer of unspecified part of left lower leg with fat layer exposed (principal); E46 Unspecified protein-calorie malnutrition; M06.9 Rheumatoid arthritis, unspecified; M86.9 Osteomyelitis, unspecified; R60.0 Localized edema; F17.200 Nicotine dependence, unspecified, uncomplicated; I87.2 Venous insufficiency (chronic) (peripheral); T14.8XXD Other injury of unspecified body region, subsequent encounter; Z86.14 Personal history of Methicillin resistant Staphylococcus aureus infection
CPT/HCPCS: 11042

== ENCOUNTER 2022-09-16 13:02 | Outpatient (RCR) | payer MEDICAID, SELFPAY ==
[2022-09-08 00:20] VITALS: BP 138/75; PULSE 87; RESP 18; TEMP 36.6; BMI 20.5
[2022-09-16 13:08] VITALS: BP 153/67; PULSE 94; RESP 16; TEMP 36.6; BMI 20.5
--- NOTE | 2022-09-16 15:10 | PN.PCM_ITS ---
History of Present Illness Date of Service: 09/16/22 Chief Complaint: left leg ulcer History of Wound: This 61-year-old female was seen today for left leg ulcer. She denies fever, chill, nausea, vomiting, diarrhea. She tries to wear compression garment. She denies leg pain, redness, or odor. She denies trauma or recent increase in swelling. She had venous intervention with vascular specialist, Dr. Rdz. She has been wearing her compression stocking as advised anytime she is not wearing a 3M 2L compression dressing. She continues to smoke and has vascular disease. She also has rheumatoid arthritis. 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 She was given a prescription for Jay and Glucerna previously. She also had an injury to her left foot while stepping down she had some popping and cracking within the past month. She was fitted with a cam walker boot and she has reduction in pain since she has been wearing this. She had a Sullivan fracture which was being managed by [facility], they have discharged her from their care. Wound culture obtained on 05/15/22 which was positive for MRSA. She was referred to Dr. Holt, [place], for treatment. She has been receiving Kimyrsa infusion weekly. When her ulcer enlarged, another wound culture was obtained on 07/10/22, which was also positive for MRSA, but for a rare amount. She sees Dr. Holt, who is managing her infusion therapy. On 07/19/22 she had a HgbA1c that was 5.7 with a fasting glucose of 84. Left lower leg MRI on 08/08/22 which showed Sinus tracts from the marrow of the mid to distal tibial diaphysis to the skin at the medial aspect. Marrow edema throughout the majority of the tibia. Findings concerning for osteomyelitis. Spoke with Dr. Holt on 08/14/22 and he states that the antibiotic that she just completed should cover an osteomyelitis and close observation for a couple months is reasonable before considering an operative debridement. Progress of Wound: Left medial leg ulcer (inferior) is stable but still has depth and able to palpate bone. The left anterior leg inferior ulcer is stable. Her edema is +1. She denies fever, chills, nausea, vomiting. Her ulcers are not showing im provement, even with her IV therapy that she completed. Objective Data Objective Data Vital Signs: Vital Signs Temp Pulse Resp BP 97.9 F 94 16 153/67 H 09/16/22 13:08 09/16/22 13:08 09/16/22 13:08 09/16/22 13:08 Weight: 95 lb Body Mass Index (BMI) 20.5 Charges/Coding Procedures Integumentary 111xxx-113xx: 62180 Miryam subq tissue 20 sq cm/< Debridement Note Debridement Note Wound debrided: Inferior anterior leg ulcer Laterality: Left Wound Grade/Stage: Stage IV Type of Debridement: Excisional debridement Anesthesia Used: 5% Lidocaine Gel Depth: Down to and including healthy tissue and in the subcutaneous layer Percentage of wound debrided: 100 Instrument Used: - (1mm curette) Tissue Removed: Devitalized tissue and slough to bone Severity: Fat Layer Exposed Amount of bleeding with debridement: Mild Bleeding Controlled with: Compression and gauze Patient tolerated procedure: Patient tolerated procedure well Debridement Free Text: Very small opening but is deep and feels like it hits bone. 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 ) Arrival Mode Ambulatory Patient Identification Verified (Name & No ) Patient Requires Transmission-Based No Precautions Height and Weight Body Mass Index (BMI) 20.5 BMI Classification Normal Vital Signs Temperature (97.8 F-99.1 F) 97.9 F Temperature Source Temporal Pulse Rate (60-100) 94 Pulse Location Monitor Respiratory Rate (12-18) 16 Respiratory rate source Observation Blood Pressure (90/60-120/80) 153/67 H Blood Pressure Mean (mm Hg) 95 Source Monitor Position Semi-Fowlers Blood Pressure Location Right Arm History Since Last Visit- (Skip if this is Patient's initial visit) Have you changed medications since your No last visit? Any new allergies or adverse reactions No Had a fall/change in ADL's that may No increase risk of falls Signs or symptoms of abuse and/or No neglect since last visit Have you been in the hospital since your No last visit? Has dressing in place as prescribed Yes Has compression in place as prescribed Yes Has offloadiing in place as prescribed N/A Experienced any changes in pain level or No management Left Footwear Regular Shoe Right Footwear Regular Shoe Pain Scale: 0-10 Numeric Is Patient Pain Free? Yes WC - Nurse 1 - General Ulcer Measurement Start: 09/16/22 13:07 Freq: Status: Active Protocol: Activity Type Activity Date Activity User E-sign Co-sign Detail Recorded Client Recorded Date Recorded By Document 09/16/22 13:08 [id number] 09/16/22 13:14 09/16/22 13:08 Wound Center Nurse 1 #5 Left superior yoder -Combined with other wound No -Current Size (cm) - Length 0.2 -Current Size (cm) - Width 0.2 -Current Size (cm) - Depth 0.7 -Total Square Cm 0.04 -Photo Taken No -Epithelialization Small 1-33% -Tunneling No -Undermining/Tunneling No -Circular Undermining No -Exudate Amt Small -Exudate Type Serosanguineous -Wound Margin Flat & Intact -Granulation Amt Small (1-33%) -Granulation Quality Red -Slough/Fibrin Yes -Necrosis Amt Small (1-33%) -Necrotic Tissue Type Adherent Slough -Structure Exposed N/A -Texture (Mima-wound Skin Appearance) Assessed, Scarring -Moisture (Mima-wound Skin Appearance) Assessed,Dry/ Scaly -Color (Mima-wound Skin Appearance) Assessed -Temperature (Mima-wound Skin No Abnormality Appearance) (Pt Warm) -Tenderness on Palpation (Mima-wound No Skin Appearance) -Ulcer Cleansing Rinsed/ Irrigated with Saline -Anesthetic Used 4% Lidocaine Solution #1- L inferior yoder -Combined with other wound No WC - Nurse 2 - General Ulcer CM Notes Start: 09/16/22 13:07 Freq: Status: Active Protocol: Activity Type Activity Date Activity User E-sign Co-sign Detail Recorded Client Recorded Date Recorded By Document 09/16/22 14:07 [id number] 09/16/22 14:10 09/16/22 14:07 Wound Center Nurse 2 #5 Left superior yoder -Correct Patient No -Correct Side, Site, Position No -Correct Procedure No -Procedure Performed No -Post Debridement (cm) - Length 0 -Post Debridement (cm) - Width 0 -Post Debridement (cm) - Depth 0 -Total Square (Post) (cm) 0 -Area of Debridement (cm) - Length 0 -Area of Debridement (cm) - Width 0 -Total Square (Area) (cm) 0 -Wound/Ulcer Outcome Healed- Epithelialized 6-left medial yoder -Time 14:09 -Correct Patient Yes -Correct Side, Site, Position Yes -Correct Procedure Yes -Procedure Performed Yes -Type of Procedure Debridement -Clinical Debridement Subcutaneous -Tissue Removed Subcutaneous -Post Debridement (cm) - Length 0.5 -Post Debridement (cm) - Width 0.3 -Post Debridement (cm) - Depth 0.4 -Total Square (Post) (cm) 0.15 -Area of Debridement (cm) - Length 0.5 -Area of Debridement (cm) - Width 0.3 -Total Square (Area) (cm) 0.15 -Tunneling No -Undermining/Tunneling No -Circular Undermining No -Wound/Ulcer Outcome Not Healed -Ulcer Cleansing Rinsed/ Irrigated with Saline -Foul Odor after Cleansing No -Bioengineered Tissue No -Bleeding Controlled with Pressure -Treatment Response Procedure Tolerated Well -Offloading No -Debridement - Subq, 1st 20sq cm Yes #1- L inferior yoder -Time 14:08 -Correct Patient Yes -Correct Side, Site, Position Yes -Correct Procedure Yes -Procedure Performed Yes -Type of Procedure Debridement -Clinical Debridement Subcutaneous -Tissue Removed Subcutaneous -Post Debridement (cm) - Length 0.5 -Post Debridement (cm) - Width 0.3 -Post Debridement (cm) - Depth 0.4 -Total Square (Post) (cm) 0.15 -Area of Debridement (cm) - Length 0.5 -Area of Debridement (cm) - Width 0.3 -Total Square (Area) (cm) 0.15 -Tunneling No -Undermining/Tunneling No -Circular Undermining No -Wound/Ulcer Outcome Not Healed -Ulcer Cleansing Rinsed/ Irrigated with Saline -Foul Odor after Cleansing No -Bioengineered Tissue No -Bleeding Controlled with Pressure -Treatment Response Procedure Tolerated Well -Offloading No -Debridement - Subq, 1st 20sq cm Yes Pain Scale: 0-10 Numeric Is Patient Pain Free? Yes - Nurse 3 - General Ulcer D/C NN Start: 09/16/22 13:07 Freq: Status: Active Protocol: Activity Type Activity Date Activity User E-sign Co-sign Detail Recorded Client Recorded Date Recorded By Document 09/16/22 14:35 LORNE [id number] 09/16/22 14:36 LORNE 09/16/22 14:35 Wound Care Nurse 3 6-left medial yoder -Ulcer Cleansing Rinsed/ Irrigated with Saline -Foul Odor after Cleansing No -Negative Pressure Wound Therapy N/A -Primary Dressing Applied Nugauze, Iodoform -Primary Dressing Covered/Secured with Dry Gauze & Roll Gauze, Secured with Tape -Nugauze, Iodoform 1/4 1 #1- L inferior yoder -Ulcer Cleansing Rinsed/ Irrigated with Saline -Foul Odor after Cleansing No -Negative Pressure Wound Therapy N/A -Other Dressing iodoform -Primary Dressing Covered/Secured with Dry Gauze & Roll Gauze, Secured with Tape Right -Lotion applied to leg before No compression wrap -Tubular Bandage Double Layer -Size of Tubigrip Used Size D -Size D ($) 2 Pain Scale: 0-10 Numeric Is Patient Pain Free? Yes WC - Visit Discharge Discharge Condition Stable Ambulatory Status Ambulatory Transportation Private Auto Medication Reconcilliation completed & Yes provided to patient/care provider Clinical Summary of Care Provided Yes Additional Wound Wound debrided: medial anterior leg ulcer Laterality: Left Wound Grade/Stage: Stage II Type of Debridement: Excisional debridement Anesthesia Used: 5% Lidocaine Gel Depth: Down to and including healthy tissue and in the subcutaneous layer Percentage of wound debrided: 100 Instrument Used: 3mm curette Tissue Removed: Devitalized tissue and slough Severity: Fat Layer Exposed Amount of bleeding with debridement: Mild Bleeding Controlled with: Compression and gauze Patient tolerated procedure: Patient tolerated procedure well Assessment/Plan Assessment/Plan (1) Ulcer of left lower extremity with fat layer exposed: CODE(S): L97.922 - Non-pressure chronic ulcer of unspecified part of left lower leg with fat layer exposed (2) Osteomyelitis: CODE(S): M86.9 - Osteomyelitis, unspecified (3) Delayed wound healing: CODE(S): T14.8XXD - Other injury of unspecified body region, subsequent encounter (4) Venous insufficiency (chronic) (peripheral): CODE(S): I87.2 - Venous insufficiency (chronic) (peripheral) (5) Localized edema: CODE(S): R60.0 - Localized edema (6) Rheumatoid arthritis: CODE(S): M06.9 - Rheumatoid arthritis, unspecified (7) Tobacco use disorder: CODE(S): F17.200 - Nicotine dependence, unspecified, uncomplicated (8) Malnutrition: CODE(S): E46 - Unspecified protein-calorie malnutrition (9) Body mass index [BMI] 19.9 or less, adult: CODE(S): Z68.1 - Body mass index [BMI] 19.9 or less, adult (10) Family history of diabetes mellitus in first degree relative: CODE(S): Z83.3 - Family history of diabetes mellitus PLAN: Plan Patient evaluated at the wound healing center today. Debridement was performed today as previously documented. Wound care - Pack 1/4 iodoform gauze topped with gauze to both the ulcers daily after washing with soap and water. Double tubigrip for compression. Keep leg elevated to help control swelling. Wound culture obtained which was positive for MRSA. She was referred to Dr. Holt, [place], for treatment. She completed her infusions of Kimyrsa. Wound culture obtained 07/10/22, which was positive for MRSA. Imaging: Left leg xrays were recently updated (02-20-22) - there is a healed fr acture in the mid third of the left tibia but apparently there is periosteal reaction and what appears to be chronic osteomyelitis with possibility of sinus tract. Left lower leg MRI on 08/08/22 which showed Sinus tracts from the marrow of the mid to distal tibial diaphysis to the skin at the medial aspect. Marrow edema throughout the majority of the tibia. Findings concerning for osteomyelitis. Spoke with Dr. Holt on 08/14/22 and he states that the antibiotic that she just completed should cover an osteomyelitis and close observation for a couple months is reasonable before considering an operative debridement. She had lab work drawn on 07/19/22 to check a fasting glucose 84 and HgA1c was 5.7. She had concerns about her blood sugars because they have been high the past couple times she has had blood work drawn and she has a significant family history for diabetes. Vascular / edema: She has nonpalpable pulses and lack of hair. She also has questionable claudication presentation. she had noninvasive vascular studies including MARI, segmental thigh and leg pressure, PVR, and systolic toe pressure. The results were reviewed and she has left biphasic waveforms, left MARI of 1.2, and left toe brachial index is 0.72. The segmental thigh and leg pressures were not obtained. There is not a difference of over 30 mmHg when compared to arm pressures. She is also advised to discontinue all tobacco products to optimize healing and limb salvage opportunities. Due to ongoing lack of healing, a vascular referral was provided for Dr. Rdz. She started intervention and was advised to follow-up with her scheduled ultrasound as advised. Her treatment is mainly for venous insufficiency at this time. She has significant delays in healing. We discussed tobacco cessation and how this impairs healing. She has some muscle wasting and delayed healing and nutritional supplementation would also be beneficial. She is underweight and is not consuming adequate micro or macronutrients. Encouraged to supplement of protein intake. She was referred for a nutrition referral to optimize healing. She has rheumatoid arthritis and understands this may also delay her healing. S he was urged to reduce smoking; discussed at length again today. Her outcome prognosis is poor with continued tobacco use. With her not showing much improvement even after IV therapy, I have discussed with her that we may need to consider a referral to a plastic surgeon for an operative debridement. She is very hesitant to have further surgery. Follow up two weeks. She is to call or come in sooner if she develops any issues.
== END 2022-10-08 23:59 | disposition home or self-care (01) ==
LOC: WC 13:02
PROVIDERS: Referring Provider Podiatrist; Visit Provider Nurse Practitioner Family
DX: L97.822 Non-pressure chronic ulcer of other part of left lower leg with fat layer exposed (principal); E46 Unspecified protein-calorie malnutrition; M06.9 Rheumatoid arthritis, unspecified; M86.9 Osteomyelitis, unspecified; I87.2 Venous insufficiency (chronic) (peripheral); F17.200 Nicotine dependence, unspecified, uncomplicated; R60.0 Localized edema; Z68.1 Body mass index [BMI] 19.9 or less, adult; Z86.14 Personal history of Methicillin resistant Staphylococcus aureus infection; Z83.3 Family history of diabetes mellitus
CPT/HCPCS: 11042

== ENCOUNTER 2022-09-30 09:14 | Outpatient (RCR) | payer MEDICAID, SELFPAY ==
[2022-07-09 00:06] VITALS: BP 131/68; PULSE 77; RESP 18; TEMP 36.7
== END 2022-10-08 23:59 ==
LOC: NS 09:14
PROVIDERS: Referring Provider Podiatrist; Visit Provider Podiatrist
DX: Z71.3 Dietary counseling and surveillance (principal); E46 Unspecified protein-calorie malnutrition; Z68.1 Body mass index [BMI] 19.9 or less, adult; M06.9 Rheumatoid arthritis, unspecified; T14.8XXD Other injury of unspecified body region, subsequent encounter
CPT/HCPCS: 97803

== ENCOUNTER 2022-11-04 09:00 | Outpatient (RCR) | payer MEDICAID, SELFPAY ==
[2022-10-09 00:27] VITALS: BP 153/67; PULSE 94; RESP 16; TEMP 36.6; BMI 20.5
[2022-10-09 09:47] VITALS: BP 143/67; PULSE 87; RESP 18; TEMP 36.3; BMI 20.5
--- NOTE | 2022-10-09 13:38 | PCM.WC.PN ---
History of Present Illness Date of Service: 10/09/22 Chief Complaint: left leg ulcer History of Wound: This 62-year-old female was seen today for left leg ulcer. She denies fever, chill, nausea, vomiting, diarrhea. She tries to wear compression garment. She denies leg pain, redness, or odor. She denies trauma or recent increase in swelling. She had venous intervention with vascular specialist, Dr. Rdz. She has been wearing her compression stocking as advised anytime she is not wearing a 3M 2L compression dressing. She continues to smoke and has vascular disease. She also has rheumatoid arthritis. She went for a speech language therapist referral and is struggling to make the recommended changes. She was given a prescription for Jay and Glucerna previously. She also had an injury to her left foot while stepping down she had some popping and cracking within the past month. She was fitted with a cam walker boot and she has reduction in pain since she has been wearing this. She had a Sullivan fracture which was being managed by [facility], they have discharged her from their care. Wound culture obtained on 05/15/22 which was positive for MRSA. She was referred to Dr. Holt, [place], for treatment. She has been receiving Kimyrsa infusion weekly. When her ulcer enlarged, another wound culture was obtained on 07/10/22, which was also positive for MRSA, but for a rare amount. She sees Dr. Holt, who is managing her infusion therapy. On 07/19/22 she had a HgbA1c that was 5.7 with a fasting glucose of 84. Left lower leg MRI on 08/08/22 which showed Sinus tracts from the marrow of the mid to distal tibial diaphysis to the skin at the medial aspect. Marrow edema throughout the majority of the tibia. Findings concerning for osteomyelitis. Spoke with Dr. Holt on 08/14/22 and he states that the antibiotic that she just completed should cover an osteomyelitis and close observation for a couple months is reasonable before considering an operative debridement. Progress of Wound: Left anteromedial leg ulcer cluster with 3 small separate ulcers that are deep and to bone in the area where her previous skin graft was placed 8-9 years ago. Objective Data Objective Data Vital Signs: Vital Signs Temp Pulse Resp BP 97.3 F L 87 18 143/67 H 10/09/22 09:47 10/09/22 09:47 10/09/22 09:47 10/09/22 09:47 Weight: 95 lb Body Mass Index (BMI) 20.5 Charges/Coding Procedures Integumentary 111xxx-113xx: [id number] Miryam subq tissue 20 sq cm/< Debridement Note Debridement Note Wound debrided: Anteriomedial leg ulcer cluster Laterality: Left Wound Grade/Stage: Stage IV Type of Debridement: Excisional debridement Anesthesia Used: 5% Lidocaine Gel Depth: Down to and including healthy tissue and in the subcutaneous layer Percentage of wound debrided: 100 Instrument Used: 3mm curette Tissue Removed: Devitalized tissue and slough to bone Severity: Fat Layer Exposed Amount of bleeding with debridement: Mild Bleeding Controlled with: Compression and gauze Patient tolerated procedure: Patient tolerated procedure well Post-Debridement Measurements and Additional Note: Post-Debridement Measurements/Treatment WC - Nurse 1 - General Ulcer Assessment Start: 10/09/22 09:46 Freq: Status: Active Protocol: ELENA Activity Type Activity Date Activity User E-sign Co-sign Detail Recorded Client Recorded Date Recorded By Document 10/09/22 09:47 DL [id number] 10/09/22 09:56 DL 10/09/22 09:47 WC - Today's Visit Information Type of service Follow-up Visit (Physician/INSTRUCTIONAL MATERIAL DIRECTOR ) Arrival Mode Ambulatory Transfer Assistance None Patient Identification Verified (Name & Yes ) Patient Requires Transmission-Based No Precautions Height and Weight Body Mass Index (BMI) 20.5 BMI Classification Normal Vital Signs Temperature (97.8 F-99.1 F) 97.3 F L Temperature Source Temporal Pulse Rate (60-100) 87 Pulse Location Monitor Respiratory Rate (12-18) 18 Respiratory rate source Observation Blood Pressure (90/60-120/80) 143/67 H Blood Pressure Mean (mm Hg) 92 Source Monitor History Since Last Visit- (Skip if this is Patient's initial visit) Have you changed medications since your No last visit? Any new allergies or adverse reactions No Had a fall/change in ADL's that may No increase risk of falls Signs or symptoms of abuse and/or No neglect since last visit Have you been in the hospital since your No last visit? Has dressing in place as prescribed Yes Has compression in place as prescribed Yes Has offloadiing in place as prescribed N/A Experienced any changes in pain level or No management Pain Scale: 0-10 Numeric Is Patient Pain Free? Yes WC - Nurse 1 - General Ulcer Measurement Start: 10/09/22 09:46 Freq: Status: Active Protocol: Activity Type Activity Date Activity User E-sign Co-sign Detail Recorded Client Recorded Date Recorded By Document 10/09/22 09:47 DL [id number] 10/09/22 09:56 DL 10/09/22 09:47 Wound Center Nurse 1 #1- L inferior tenorio -Current Size (cm) - Length 0.3 -Current Size (cm) - Width 0.4 -Current Size (cm) - Depth 1 -Total Square Cm 0.12 -Photo Taken Yes -Maximum Distance #2 (cm) 0.7 -Circular Undermining Yes -Exudate Amt Medium -Exudate Type Yellow/Green -Wound Margin Distinct, Outline Attached -Granulation Amt Small (1-33%) -Granulation Quality Red -Necrosis Amt Small (1-33%) -Necrotic Tissue Type Adherent Slough -Structure Exposed N/A -Texture (Mima-wound Skin Appearance) Scarring -Moisture (Mima-wound Skin Appearance) Dry/Scaly -Color (Mima-wound Skin Appearance) Hemosiderin Staining -Temperature (Mima-wound Skin No Abnormality Appearance) (Pt Warm) -Tenderness on Palpation (Mima-wound No Skin Appearance) -Ulcer Cleansing Soap and Water -Foul Odor after Cleansing No -Anesthetic Used 5% Lidocaine Gel #7 L Tenorio Med -Current Size (cm) - Length 0.2 -Current Size (cm) - Width 0.2 -Current Size (cm) - Depth 0.7 -Total Square Cm 0.04 -Photo Taken Yes -Maximum Distance #2 (cm) 0.3 -Circular Undermining Yes -Exudate Amt Medium -Exudate Type Yellow/Green -Wound Margin Distinct, Outline Attached -Granulation Amt Small (1-33%) -Granulation Quality Red -Necrosis Amt Small (1-33%) -Necrotic Tissue Type Adherent Slough -Structure Exposed N/A -Texture (Mima-wound Skin Appearance) Scarring -Moisture (Mima-wound Skin Appearance) Dry/Scaly -Color (Mima-wound Skin Appearance) Hemosiderin Staining -Temperature (Mima-wound Skin No Abnormality Appearance) (Pt Warm) -Tenderness on Palpation (Mima-wound No Skin Appearance) -Ulcer Cleansing Soap and Water -Foul Odor after Cleansing No -Anesthetic Used 5% Lidocaine Gel 6-left medial tenorio cluster -Current Size (cm) - Length 0.6 -Current Size (cm) - Width 0.5 -Current Size (cm) - Depth 0.5 -Total Square Cm 0.30 -Photo Taken Yes -Exudate Amt Small -Exudate Type Serosanguineous -Wound Margin Distinct, Outline Attached -Granulation Amt Large (67-100%) -Granulation Quality Red -Necrosis Amt Small (1-33%) -Necrotic Tissue Type Adherent Slough -Structure Exposed N/A -Texture (Mima-wound Skin Appearance) Scarring -Moisture (Mima-wound Skin Appearance) Dry/Scaly -Color (Mima-wound Skin Appearance) Hemosiderin Staining -Temperature (Mima-wound Skin No Abnormality Appearance) (Pt Warm) -Tenderness on Palpation (Mima-wound No Skin Appearance) -Ulcer Cleansing Soap and Water -Foul Odor after Cleansing No -Anesthetic Used 5% Lidocaine Gel Left Calf (cm) 29.5 Left Ankle (cm) 19 WC - Nurse 2 - General Ulcer CM Notes Start: 10/09/22 09:46 Freq: Status: Active Protocol: Activity Type Activity Date Activity User E-sign Co-sign Detail Recorded Client Recorded Date Recorded By Document 10/09/22 10:07 TENZIN [id number] 10/09/22 10:10 TENZIN 10/09/22 10:07 Wound Center Nurse 2 6-left medial tenorio cluster -Time 10:09 -Correct Patient Yes -Correct Side, Site, Position Yes -Correct Procedure Yes -Procedure Performed Yes -Type of Procedure Debridement -Clinical Debridement Subcutaneous -Tissue Removed Subcutaneous -Post Debridement (cm) - Length 2.6 -Post Debridement (cm) - Width 2.6 -Post Debridement (cm) - Depth 0.6 -Total Square (Post) (cm) 6.76 -Area of Debridement (cm) - Length 2.6 -Area of Debridement (cm) - Width 2.6 -Total Square (Area) (cm) 6.76 -Tunneling No -Undermining/Tunneling No -Circular Undermining No -Wound/Ulcer Outcome Not Healed -Ulcer Cleansing Rinsed/ Irrigated with Saline -Foul Odor after Cleansing No -Bioengineered Tissue No -Bleeding Controlled with Pressure -Treatment Response Procedure Tolerated Well -Offloading No -Debridement - Subq, 1st 20sq cm Yes Pain Scale: 0-10 Numeric Is Patient Pain Free? Yes - Nurse 3 - General Ulcer D/C NN Start: 10/09/22 09:46 Freq: Status: Active Protocol: Activity Type Activity Date Activity User E-sign Co-sign Detail Recorded Client Recorded Date Recorded By Document 10/09/22 10:41 DL [id number] 10/09/22 10:45 DL 10/09/22 10:41 Wound Care Center Nurse 3 #7 L Tenorio Med -Ulcer Cleansing Rinsed/ Irrigated with Saline -Other Dressing aquacel ag -Primary Dressing Covered/Secured with Dry Gauze & Roll Gauze, Secured with Tape 6-left medial tenorio cluster -Ulcer Cleansing Rinsed/ Irrigated with Saline -Foul Odor after Cleansing No -Primary Dressing Applied Aquacel AG 4x4 -Primary Dressing Covered/Secured with Dry Gauze & Roll Gauze, Secured with Tape -Aquacel AG 4x4 1 #4 L Tenorio Med -Ulcer Cleansing Rinsed/ Irrigated with Saline -Foul Odor after Cleansing No -Other Dressing aquacel ag -Primary Dressing Covered/Secured with Dry Gauze & Roll Gauze, Secured with Tape Treatment Response Procedure Tolerated Well Pain Scale: 0-10 Numeric Is Patient Pain Free? Yes - Visit Discharge Discharge Condition Stable Ambulatory Status Ambulatory Transportation Private Auto Assessment/Plan Assessment/Plan (1) Ulcer of left lower extremity with fat layer exposed: CODE(S): L97.922 - Non-pressure chronic ulcer of unspecified part of left lower leg with fat layer exposed (2) Osteomyelitis: CODE(S): M86.9 - Osteomyelitis, unspecified (3) Delayed wound healing: CODE(S): T14.8XXD - Other injury of unspecified body region, subsequent encounter (4) Venous insufficiency (chronic) (peripheral): CODE(S): I87.2 - Venous insufficiency (chronic) (peripheral) (5) Localized edema: CODE(S): R60.0 - Localized edema (6) Rheumatoid arthritis: CODE(S): M06.9 - Rheumatoid arthritis, unspecified (7) Tobacco use disorder: CODE(S): F17.200 - Nicotine dependence, unspecified, uncomplicated (8) Malnutrition: CODE(S): E46 - Unspecified protein-calorie malnutrition (9) Body mass index [BMI] 19.9 or less, adult: CODE(S): Z68.1 - Body mass index [BMI] 19.9 or less, adult (10) Family history of diabetes mellitus in first degree relative: CODE(S): Z83.3 - Family history of diabetes mellitus PLAN: Plan Patient evaluated at the wound healing center today. Debridement was performed today as previously documented. Wound care - Pack with thin strip of Aquacel-Ag topped with gauze to ulcer cluster daily after washing with soap and water. Double tubigrip for compression. Keep leg elevated to help control swelling. Wound culture obtained which was positive for MRSA. She was referred to Dr. Holt, [place], for treatment. She completed her infusions of Kimyrsa. Wound culture obtained 07/10/22, which was positive for MRSA. Imaging: Left leg xrays were recently updated (02-20-22) - there is a healed fracture in the mid third of the left tibia but apparently there is periosteal reaction and what appears to be chronic osteomyelitis with possibility of sinus tract. Left lower leg MRI on 08/08/22 which showed Sinus tracts from the marrow of the mid to distal tibial diaphysis to the skin at the medial aspect. Marrow edema throughout the majority of the tibia. Findings concerning for osteomyelitis. Spoke with Dr. Holt on 08/14/22 and he states that the antibiotic that she just completed should cover an osteomyelitis and close observation for a couple months is reasonable before considering an operative debridement. She had lab work drawn on 07/19/22 to check a fasting glucose 84 and HgA1c was 5.7. She had concerns about her blood sugars because they have been high the past couple times she has had blood work drawn and she has a significant family history for diabetes. Vascular / edema: She has nonpalpable pulses and lack of hair. She also has questionable claudication presentation. she had noninvasive vascular studies including MARI, segmental thigh and leg pressure, PVR, and systolic toe pressure. The results were reviewed and she has left biphasic waveforms, left MARI of 1.2, and left toe brachial index is 0.72. The segmental thigh and leg pressures were not obtained. There is not a difference of over 30 mmHg when compared to arm pressures. She is also advised to discontinue all tobacco products to optimize healing and limb salvage opportunities. Due to ongoing lack of healing, a vascular referral was provided for Dr. Rdz. She started intervention and was advised to follow-up with her scheduled ultrasound as advised. Her treatment is mainly for venous insufficiency at this time. She has significant delays in healing. We discussed tobacco cessation and how this impairs healing. She has some muscle wasting and delayed healing and nutritional supplementation would also be beneficial. She is underweight and is not consuming adequate micro or macronutrients. Encouraged to supplement of protein intake, which she does take when she can afford it. She was referred for a nutrition referral to optimize healing. She has rheumatoid arthritis and understands this may also delay her healing. With her not showing much improvement even after IV therapy, I have discussed with her that we may need to consider a referral to a plastic surgeon for an operative debridement. I will refer her to Dr. Jones for evaluation for further treatment options, especially since we have waited 2 months as suggested by ID and her ulcers have not impoved and she now has more ulcers present. Follow up two weeks. She is to call or come in sooner if she develops any issues.
[2022-10-23 09:35] VITALS: BP 133/58; PULSE 90; RESP 18; TEMP 36.1; BMI 20.5
--- NOTE | 2022-10-23 12:44 | PCM.WC.PN ---
History of Present Illness Date of Service: 10/23/22 Chief Complaint: left leg ulcer History of Wound: This 62-year-old female was seen today for left leg ulcer. She denies fever, chill, nausea, vomiting, diarrhea. She tries to wear compression garment. She denies leg pain, redness, or odor. She denies trauma or recent increase in swelling. She had venous intervention with vascular specialist, Dr. Rdz. She has been wearing her compression stocking as advised anytime she is not wearing a 3M 2L compression dressing. She continues to smoke and has vascular disease. She also has rheumatoid arthritis. She went for a hatchery man referral and is struggling to make the recommended changes. She was given a prescription for Jay and Glucerna previously. She also had an injury to her left foot while stepping down she had some popping and cracking within the past month. She was fitted with a cam walker boot and she has reduction in pain since she has been wearing this. She had a Sullivan fracture which was being managed by [facility], they have discharged her from their care. Wound culture obtained on 05/15/22 which was positive for MRSA. She was referred to Dr. Holt, [place], for treatment. She has been receiving Kimyrsa infusion weekly. When her ulcer enlarged, another wound culture was obtained on 07/10/22, which was also positive for MRSA, but for a rare amount. She sees Dr. Holt, who is managing her infusion therapy. On 07/19/22 she had a HgbA1c that was 5.7 with a fasting glucose of 84. Left lower leg MRI on 08/08/22 which showed Sinus tracts from the marrow of the mid to distal tibial diaphysis to the skin at the medial aspect. Marrow edema throughout the majority of the tibia. Findings concerning for osteomyelitis. Spoke with Dr. Holt on 08/14/22 and he states that the antibiotic that she just completed should cover an osteomyelitis and close observation for a couple months is reasonable before considering an operative debridement. Progress of Wound: Left anteromedial leg ulcer is no longer a cluster. The ulcer is deep and to bone in the area where her previous skin graft was placed 8-9 years ago. Objective Data Objective Data Vital Signs: Vital Signs Temp Pulse Resp BP 97 F L 90 18 133/58 H 10/23/22 09:35 10/23/22 09:35 10/23/22 09:35 10/23/22 09:35 Weight: 95 lb Body Mass Index (BMI) 20.5 Charges/Coding Procedures Integumentary 111xxx-113xx: [id number] Miryam subq tissue 20 sq cm/< Debridement Note Debridement Note Wound debrided: Anteriomedial leg ulcer Laterality: Left Wound Grade/Stage: Stage IV Type of Debridement: Excisional debridement Anesthesia Used: 5% Lidocaine Gel Depth: Down to and including healthy tissue and in the subcutaneous layer Percentage of wound debrided: 100 Instrument Used: 3mm curette Tissue Removed: Devitalized tissue and slough to bone Severity: Fat Layer Exposed Amount of bleeding with debridement: Mild Bleeding Controlled with: Compression and gauze Patient tolerated procedure: Patient tolerated procedure well Post-Debridement Measurements and Additional Note: Post-Debridement Measurements/Treatment - Nurse 1 - General Ulcer Assessment Start: 10/09/22 09:46 Freq: Status: Active Protocol: ELENA Activity Type Activity Date Activity User E-sign Co-sign Detail Recorded Client Recorded Date Recorded By Document 10/09/22 09:47 DL [id number] 10/09/22 09:56 DL Document 10/23/22 09:35 RB [id number] 10/23/22 09:38 RB 10/09/22 10/23/22 09:47 09:35 WC - Today's Visit Information Type of service Follow-up Visit Follow-up Visit (Physician/OPEN PIT QUARRY SUPERVISOR (Physician/OPEN PIT QUARRY SUPERVISOR ) ) Arrival Mode Ambulatory Ambulatory Transfer Assistance None None Patient Identification Verified (Name & Yes Yes ) Patient Requires Transmission-Based No No Precautions Height and Weight Body Mass Index (BMI) 20.5 20.5 BMI Classification Normal Normal Vital Signs Temperature (97.8 F-99.1 F) 97.3 F L 97 F L Temperature Source Temporal Temporal Pulse Rate (60-100) 87 90 Pulse Location Monitor Monitor Respiratory Rate (12-18) 18 18 Respiratory rate source Observation Observation Blood Pressure (90/60-120/80) 143/67 H 133/58 H Blood Pressure Mean (mm Hg) 92 83 Source Monitor Monitor Position Semi-Fowlers Blood Pressure Location Left Arm History Since Last Visit- (Skip if this is Patient's initial visit) Have you changed medications since your No No last visit? Any new allergies or adverse reactions No No Had a fall/change in ADL's that may No No increase risk of falls Signs or symptoms of abuse and/or No No neglect since last visit Have you been in the hospital since your No No last visit? Has dressing in place as prescribed Yes Yes Has compression in place as prescribed Yes No Has offloadiing in place as prescribed N/A No Experienced any changes in pain level or No management Pain Scale: 0-10 Numeric Is Patient Pain Free? Yes Yes WC - Nurse 1 - General Ulcer Measurement Start: 10/09/22 09:46 Freq: Status: Active Protocol: Activity Type Activity Date Activity User E-sign Co-sign Detail Recorded Client Recorded Date Recorded By Document 10/09/22 09:47 DL [id number] 10/09/22 09:56 DL Document 10/23/22 09:35 RB [id number] 10/23/22 09:38 RB 10/09/22 10/23/22 09:47 09:35 Wound Center Nurse 1 #7 L Tenorio Med -Current Size (cm) - Length 0.2 -Current Size (cm) - Width 0.2 -Current Size (cm) - Depth 0.7 -Total Square Cm 0.04 -Photo Taken Yes -Maximum Distance #2 (cm) 0.3 -Circular Undermining Yes -Exudate Amt Medium -Exudate Type Yellow/Green -Wound Margin Distinct, Outline Attached -Granulation Amt Small (1-33%) -Granulation Quality Red -Necrosis Amt Small (1-33%) -Necrotic Tissue Type Adherent Slough -Structure Exposed N/A -Texture (Mima-wound Skin Appearance) Scarring -Moisture (Mima-wound Skin Appearance) Dry/Scaly -Color (Mima-wound Skin Appearance) Hemosiderin Staining -Temperature (Mima-wound Skin No Abnormality Appearance) (Pt Warm) -Tenderness on Palpation (Mima-wound No Skin Appearance) -Ulcer Cleansing Soap and Water -Foul Odor after Cleansing No -Anesthetic Used 5% Lidocaine Gel #1- L inferior tenorio -Current Size (cm) - Length 0.3 -Current Size (cm) - Width 0.4 -Current Size (cm) - Depth 1 -Total Square Cm 0.12 -Photo Taken Yes -Maximum Distance #2 (cm) 0.7 -Circular Undermining Yes -Exudate Amt Medium -Exudate Type Yellow/Green -Wound Margin Distinct, Outline Attached -Granulation Amt Small (1-33%) -Granulation Quality Red -Necrosis Amt Small (1-33%) -Necrotic Tissue Type Adherent Slough -Structure Exposed N/A -Texture (Mima-wound Skin Appearance) Scarring -Moisture (Mima-wound Skin Appearance) Dry/Scaly -Color (Mima-wound Skin Appearance) Hemosiderin Staining -Temperature (Mima-wound Skin No Abnormality Appearance) (Pt Warm) -Tenderness on Palpation (Mima-wound No Skin Appearance) -Ulcer Cleansing Soap and Water -Foul Odor after Cleansing No -Anesthetic Used 5% Lidocaine Gel 6-left medial tenorio cluster -Combined with other wound No -Current Size (cm) - Length 0.6 0.5 -Current Size (cm) - Width 0.5 0.5 -Current Size (cm) - Depth 0.5 0.8 -Total Square Cm 0.30 0.25 -Photo Taken Yes Yes -Tunneling Yes -Tunneling Position (O'clock) 1 -Tunneling Distance (cm) 1.4 -Undermining/Tunneling No -Circular Undermining No -Exudate Amt Small Medium -Exudate Type Serosanguineous Serosanguineous -Wound Margin Distinct, Distinct, Outline Outline Attached Attached -Granulation Amt Large (67-100%) Medium (34-66%) -Granulation Quality Red Thermal -Slough/Fibrin Yes -Necrosis Amt Small (1-33%) Medium (34-66%) -Necrotic Tissue Type Adherent Slough Adherent Slough -Structure Exposed N/A Bone -Texture (Mima-wound Skin Appearance) Scarring Assessed -Moisture (Mima-wound Skin Appearance) Dry/Scaly Assessed -Color (Mima-wound Skin Appearance) Hemosiderin Assessed Staining -Temperature (Mima-wound Skin No Abnormality No Abnormality Appearance) (Pt Warm) (Pt Warm) -Tenderness on Palpation (Mima-wound No No Skin Appearance) -Ulcer Cleansing Soap and Water Wound Cleanser -Foul Odor after Cleansing No No -Anesthetic Used 5% Lidocaine 5% Lidocaine Gel Gel Lower Limb Edema Present Yes Left Calf (cm) 29.5 28.5 Left Ankle (cm) 19 19 WC - Nurse 2 - General Ulcer CM Notes Start: 10/09/22 09:46 Freq: Status: Active Protocol: Activity Type Activity Date Activity User E-sign Co-sign Detail Recorded Client Recorded Date Recorded By Document 10/09/22 10:07 [id number] 10/09/22 10:10 JF Document 10/23/22 09:59 [id number] 10/23/22 10:01 JF 10/09/22 10/23/22 10:07 09:59 Wound Center Nurse 2 6-left medial tenorio cluster -Time 10:09 10:00 -Correct Patient Yes Yes -Correct Side, Site, Position Yes Yes -Correct Procedure Yes Yes -Procedure Performed Yes Yes -Type of Procedure Debridement Debridement -Clinical Debridement Subcutaneous Subcutaneous -Tissue Removed Subcutaneous Subcutaneous -Post Debridement (cm) - Length 2.6 0.7 -Post Debridement (cm) - Width 2.6 0.7 -Post Debridement (cm) - Depth 0.6 0.8 -Total Square (Post) (cm) 6.76 0.49 -Area of Debridement (cm) - Length 2.6 0.7 -Area of Debridement (cm) - Width 2.6 0.7 -Total Square (Area) (cm) 6.76 0.49 -Tunneling No No -Undermining/Tunneling No No -Circular Undermining No No -Wound/Ulcer Outcome Not Healed Not Healed -Ulcer Cleansing Rinsed/ Rinsed/ Irrigated with Irrigated with Saline Saline -Foul Odor after Cleansing No No -Bioengineered Tissue No No -Bleeding Controlled with Pressure Pressure -Treatment Response Procedure Procedure Tolerated Well Tolerated Well -Offloading No No -Debridement - Subq, 1st 20sq cm Yes Yes Pain Scale: 0-10 Numeric Is Patient Pain Free? Yes Yes - Nurse 3 - General Ulcer D/C NN Start: 10/09/22 09:46 Freq: Status: Active Protocol: Activity Type Activity Date Activity User E-sign Co-sign Detail Recorded Client Recorded Date Recorded By Document 10/09/22 10:41 DL [id number] 10/09/22 10:45 DL Document 10/23/22 10:02 [id number] 10/23/22 10:07 JF 10/09/22 10/23/22 10:41 10:02 Wound Care Center Nurse 3 #7 L Tenorio Med -Ulcer Cleansing Rinsed/ Irrigated with Saline -Other Dressing aquacel ag -Primary Dressing Covered/Secured with Dry Gauze & Roll Gauze, Secured with Tape #4 L Tenorio Med -Ulcer Cleansing Rinsed/ Irrigated with Saline -Foul Odor after Cleansing No -Other Dressing aquacel ag -Primary Dressing Covered/Secured with Dry Gauze & Roll Gauze, Secured with Tape 6-left medial tenorio cluster -Ulcer Cleansing Rinsed/ Rinsed/ Irrigated with Irrigated with Saline Saline -Foul Odor after Cleansing No No -Primary Dressing Applied Aquacel AG 4x4 Aquacel AG 2x2 -Primary Dressing Covered/Secured with Dry Gauze & Dry Gauze & Roll Gauze, Roll Gauze, Secured with Secured with Tape Tape -Aquacel AG 4x4 1 -Aquacel AG 2x2 1 Treatment Response Procedure Tolerated Well Pain Scale: 0-10 Numeric Is Patient Pain Free? Yes Yes WC - Visit Discharge Discharge Condition Stable Stable Ambulatory Status Ambulatory Ambulatory Transportation Private Auto Private Auto Medication Reconcilliation completed & Yes provided to patient/care provider Clinical Summary of Care Provided Yes Assessment/Plan Assessment/Plan (1) Ulcer of left lower extremity with fat layer exposed: CODE(S): L97.922 - Non-pressure chronic ulcer of unspecified part of left lower leg with fat layer exposed (2) Osteomyelitis: CODE(S): M86.9 - Osteomyelitis, unspecified (3) Delayed wound healing: CODE(S): T14.8XXD - Other injury of unspecified body region, subsequent encounter (4) Venous insufficiency (chronic) (peripheral): CODE(S): I87.2 - Venous insufficiency (chronic) (peripheral) (5) Localized edema: CODE(S): R60.0 - Localized edema (6) Rheumatoid arthritis: CODE(S): M06.9 - Rheumatoid arthritis, unspecified (7) Tobacco use disorder: CODE(S): F17.200 - Nicotine dependence, unspecified, uncomplicated (8) Malnutrition: CODE(S): E46 - Unspecified protein-calorie malnutrition (9) Body mass index [BMI] 19.9 or less, adult: CODE(S): Z68.1 - Body mass index [BMI] 19.9 or less, adult (10) Family history of diabetes mellitus in first degree relative: CODE(S): Z83.3 - Family history of diabetes mellitus PLAN: Plan Patient evaluated at the wound healing center today. Wound care - Pack with thin strip of Aquacel-Ag topped with gauze to ulcer daily after washing with soap and water. Double tubigrip for compression. Keep leg elevated to help control swelling. Wound culture obtained which was positive for MRSA. She was referred to Dr. Holt, [place], for treatment. She completed her infusions of Kimyrsa. Wound culture obtained 07/10/22, which was positive for MRSA. Imaging: Left leg xrays were recently updated (02-20-22) - there is a healed fracture in the mid third of the left tibia but apparently there is periosteal reaction and what appears to be chronic osteomyelitis with possibility of sinus tract. Left lower leg MRI on 08/08/22 which showed Sinus tracts from the marrow of the mid to distal tibial diaphysis to the skin at the medial aspect. Marrow edema throughout the majority of the tibia. Findings concerning for osteomyelitis. Spoke with Dr. Holt on 08/14/22 and he states that the antibiotic that she just completed should cover an osteomyelitis and close observation for a couple months is reasonable before considering an operative debridement. She had lab work drawn on 07/19/22 to check a fasting glucose 84 and HgA1c was 5.7. She had concerns about her blood sugars because they have been high the past couple times she has had blood work drawn and she has a significant family history for diabetes. Vascular / edema: She has nonpalpable pulses and lack of hair. She also has questionable claudication presentation. she had noninvasive vascular studies including MARI, segmental thigh and leg pressure, PVR, and systolic toe pressure. The results were reviewed and she has left biphasic waveforms, left MARI of 1.2, and left toe brachial index is 0.72. The segmental thigh and leg pressures were not obtained. There is not a difference of over 30 mmHg when compared to arm pressures. She is also advised to discontinue all tobacco products to optimize healing and limb salvage opportunities. Due to ongoing lack of healing, a vascular referral was provided for Dr. Rdz. She started intervention and was advised to follow-up with her scheduled ultrasound as advised. Her treatment is mainly for venous insufficiency at this time. She has significant delays in healing. We discussed tobacco cessation and how this impairs healing. She has some muscle wasting and delayed healing and nutritional supplementation would also be beneficial. She is underweight and is not consuming adequate micro or macronutrients. Encouraged to supplement of protein intake, which she does take when she can afford it. She was referred for a nutrition referral to optimize healing. She has rheumatoid arthritis and understands this may also delay her healing. With her not showing much improvement even after IV therapy, I have discussed with her that we may need to consider a referral to a plastic surgeon for an operative debridement. I will refer her to Dr. Jones for evaluation for further treatment options, especially since we have waited 2 months as suggested by ID and her ulcers have not impoved and she now has more ulcers present. Follow up Friday. She will have a consult with Dr. Jones for further evaluation of this ulcer.
[2022-10-28 13:36] VITALS: BP 135/80; PULSE 86; TEMP 36.2; BMI 20.5
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
--- NOTE | 2022-11-04 08:18 | ART_ITS ---
Reason For Study: PVD Procedure A bilateral lower extremity continuous wave Doppler with analog waveform analysis,segmental pressures,and ankle brachial indexes without exercise. Left Segmental Pressures Left brachial= 119mmHg. Left posterior tibial artery = 154mmHg. Left dorsalis pedis artery = 152mmHg. Left digit = 93 mmHg. The left dorsalis pedis waveforms are triphasic. The left posterior tibial artery waveforms are triphasic. Right Segmental Pressures Right brachial= 118mmHg. Right posterior tibial artery = 160mmHg. Right dorsalis pedis artery = 137mmHg. Right digit = 136 mmHg. The right dorsalis pedis waveforms are triphasic. The right posterior tibial artery waveforms are triphasic. Indices The right ankle brachial index by the dorsalis pedis is 1.15. The right ankle brachial index by the posterior tibial artery is 1.34. The right digital-brachial index is 1.14. The left ankle brachial index by the dorsalis pedis is 1.28. The left ankle brachial index by the posterior tibial artery is 1.29. The left digital-brachial index is 0.78. VL/Lower Ext Art Exam w/o Exercis Interpretation Summary Triphasic Doppler waveforms are noted at ankle level bilaterally. Pulse-volume recordings appear satisfactory at all levels bilaterally. Resting ankle-brachial indices are norm al bilaterally. Digital-brachial indices are normal bilaterally. There is no evidence of significant arterial occlusive disease in the lower ext remities bilaterally. Ordering Physician: Maninder Jones Performed By: Sweta Moe RVT
== END 2022-11-06 08:49 | disposition home or self-care (01) ==
LOC: WC 09:00
PROVIDERS: Referring Provider Surgery; Visit Provider Nurse Practitioner Family
DX: E11.622 Type 2 diabetes mellitus with other skin ulcer (principal); L97.922 Non-pressure chronic ulcer of unspecified part of left lower leg with fat layer exposed; E46 Unspecified protein-calorie malnutrition; M06.9 Rheumatoid arthritis, unspecified; M86.9 Osteomyelitis, unspecified; B95.62 Methicillin resistant Staphylococcus aureus infection as the cause of diseases classified elsewhere; F17.210 Nicotine dependence, cigarettes, uncomplicated; Z79.83 Long term (current) use of bisphosphonates; I87.2 Venous insufficiency (chronic) (peripheral); F17.200 Nicotine dependence, unspecified, uncomplicated; Z68.1 Body mass index [BMI] 19.9 or less, adult; Z83.3 Family history of diabetes mellitus; T14.8XXD Other injury of unspecified body region, subsequent encounter
CPT/HCPCS: 11042; 11043; 87070; 87075; 87077; 87186; 87205; 93923

== ENCOUNTER 2022-11-20 09:30 | Outpatient (RCR) | payer MEDICAID, SELFPAY ==
[2022-11-06 09:31] VITALS: BP 127/62; PULSE 86; RESP 18; TEMP 36.1
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
[2022-11-20 09:16] VITALS: BP 122/49; PULSE 89; RESP 18; TEMP 36
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
== END 2022-12-06 23:59 | disposition home or self-care (01) ==
LOC: WC 09:30
PROVIDERS: Visit Provider Nurse Practitioner Family
DX: L97.822 Non-pressure chronic ulcer of other part of left lower leg with fat layer exposed (principal); M86.9 Osteomyelitis, unspecified; E11.9 Type 2 diabetes mellitus without complications; F17.200 Nicotine dependence, unspecified, uncomplicated; Z47.2 Encounter for removal of internal fixation device; A49.02 Methicillin resistant Staphylococcus aureus infection, unspecified site; S81.802S Unspecified open wound, left lower leg, sequela
CPT/HCPCS: 11043

== ENCOUNTER 2022-12-03 09:08 | Observation (INO) | payer MEDICAID, SELFPAY ==
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
[2022-12-03] VITALS (12 sets, daily range): BP systolic 105–128; BP diastolic 52–62; PULSE 66–90; RESP 12–18; TEMP 36.4–36.8; O2SAT 95–99; BMI 20.4
[2022-12-03] MEDS: Lactated Ringers 1,000 ML 15 ML IV (06:25)
[2022-12-03] MEDS: Vancomycin IV 1,000 MG/200 ML BAG 200 MG IV (06:30)
[2022-12-03 06:43] LABS: Partial Thromboplast Time 29.8 Seconds (24.1-36.2)
--- NOTE | 2022-12-03 07:30 | DEB_PTH ---
PATIENT: ANGELA JERONIMO LOC: MS3 U#:[id number] AGE/SX: 62/F ROOM: [facility] [place] RE12/03/[address]: Dr. 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 Debrided tibial ulcer soft tissue, left, suture at 12 o?clock, B ? Tibial bone left MICROSCOPIC DIAGNOSIS A. Tibial ulcer soft tissue, left, excision: Acute and chronic inflammation and granulation tissue reaction. B. Tibial bone, left, excision: Pieces of bone with chronic inflammation and reactive changes, negative for acute osteomyelitis. CHLOE:mele 12/06/2022 MICROSCOPIC DESCRIPTION Slides are reviewed. GROSS DESCRIPTION A - Received in fixative is one container labeled with the patient's name and designated debrided tibial ulcer soft tissue, left, suture at 12 o'clock. The specimen consists of a piece of skin with underlying tissue measuring 4.0 x 2.5 cm and up to 0.9 cm in thickness. Also present in the container is a crescent-shaped piece of skin with underlying tissue measuring 4.0 x 1.0 x 1.0 cm. The specimen is inked as follows: 12 o?clock margin ? black, 6 o?clock margin ? yellow, 3 o?clock margin ? blue and 9 o?clock margin ? green. No obvious lesion is identified. Party Plan Sales Consultant sections are submitted in two cassettes. B - Received in fixative is one container labeled with the patient's name and designated tibial bone left. The specimen consists of multiple irregular fragments of bone that in aggregate measure 5.0 x 3.0 x 0.4 cm. The entire specimen is submitted in two cassettes after decalcification. / CHLOE:mele 12/03/2022 TC:2 CPT: 75220 x2, 87803
[2022-12-03] MEDS: Lidocaine 1% /Epi 1:100 (20ml) 20 ML Vial (08:00)
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
[2022-12-03 10:00] LABS: Bedside Glucose 154 mg/dL (74-106)
[2022-12-03 12:55] LABS: Bedside Glucose 173 mg/dL (74-106)
[2022-12-03] MEDS: Acetaminophen 500 MG Tablet PO (13:19)
[2022-12-03] MEDS: Lactated Ringers 1,000 ML 60 ML IV (13:19)
[2022-12-03] MEDS: Enoxaparin 40 MG/0.4 ML Syringe SC (13:19)
[2022-12-03] MEDS: Docusate Sodium 100 MG Capsule PO ×2 (13:21→22:42)
[2022-12-03 13:27] LABS: Anion Gap 1 (5-15); BUN 6 mg/dL (7-18); BUN/Creat Ratio 11.6 RATIO (10-20); Calcium,Total 8.3 mg/dL (8.5-10.1); Chloride 108 mmol/L (98-107); Creatinine, Serum 0.52 mg/dL (0.55-1.02); EST Glomerular Filtration Rate 128 mL/min (>60); Est Glom Filt Rate - Afr Amer 154 mL/min (>60); Estimated Creatinine Clearance 78.45 ml/min; Glucose 175 mg/dL (74-106); Potassium 4.1 mmol/L (3.5-5.1); Sodium Level 140 mmol/L (136-145)
[2022-12-03] MEDS: Paroxetine 20 MG Tablet PO (13:29)
[2022-12-03] MEDS: LORazepam 0.5 MG Tablet PO (13:29)
[2022-12-03] MEDS: Ensure Plus High Protein 120 ML LIQUID PO ×3 (13:30→22:44)
[2022-12-03] MEDS: Ipratropium/Albuterol Sulfate 3 ML AMPUL.NEB INHALATION ×2 (13:37→21:03)
--- NOTE | 2022-12-03 14:40 | PCM.RX.CS ---
Consult Pharmacy has been consulted to manage selected antiobiotic: Vancomycin Type of Consult: New start Prior Doses of Antibiotics Received/Current Regimen: 12/03/22 @ 0630 in pacu Labs: Sodium 140 mmol/L (136-145) 12/03/22 13:04 Potassium 4.1 mmol/L (3.5-5.1) 12/03/22 13:04 Chloride 108 mmol/L (98-107) H 12/03/22 13:04 Carbon Dioxide 31.0 mmol/L (21.0-32.0) 12/03/22 13:04 Anion Gap 1 (5-15) L 12/03/22 13:04 BUN 6 mg/dL (7-18) L 12/03/22 13:04 Creatinine 0.52 mg/dL (0.55-1.02) L 12/03/22 13:04 Est GFR (MDRD) Af Amer 154 mL/min (>60) 12/03/22 13:04 Est GFR (MDRD) Non-Af 128 mL/min (>60) 12/03/22 13:04 BUN/Creatinine Ratio 11.6 RATIO (10-20) 12/03/22 13:04 Glucose 175 mg/dL (74-106) H 12/03/22 13:04 Weight used for dosin kg Estimated Creatinine Clearance: 67 Goal Trough: 15-20 mcg/mL Pharmacy Plan for Drug Dosing: start 500mg every 12 hours of vancomycin @ 1830 Pharmacy Service will continue to monitor and adjust dosing as required. Labs to be done on [date and time ordered]: 12/04/22 @ 1800
--- NOTE | 2022-12-03 15:31 | PCM.PN.HOSP ---
Reason for Visit Reason for Visit: Diagnoses Methicillin resistant Staphylococcus aureus infection, unspecified site (12/03/22) Type 2 diabetes mellitus without complications (12/03/22) Nicotine dependence, unspecified, uncomplicated (12/03/22) Non-pressure chronic ulcer of unspecified part of left lower leg with bone involvement without evidence of necrosis (12/03/22) Osteomyelitis, unspecified (12/03/22) Unspecified open wound, left lower leg, sequela (12/03/22) Encounter for other preprocedural examination (12/03/22) Subjective Subjective This 62-year-old white female was seen at the request of plastic surgery for medical management after she underwent debridement of a chronic left lower leg ulceration. Patient has a history of prediabetes, seizure disorder, COPD, hyperlipidemia, and chronic depression. At the time my examination, patient is postop and she has no specific complaints, postop blood sugar by fingerstick was 175. Objective Data Objective Data Vital Signs: Vital Signs Temp Pulse Resp BP Pulse Ox O2 Del Method 97.8 F 78 12 128/60 H 96 Room Air 12/03/22 13:33 12/03/22 13:40 12/03/22 13:40 12/03/22 13:33 12/03/22 13:40 12/03/22 13:40 Oxygen Delivery Method Room Air Weight: 44.3 kg Body Mass Index (BMI) 20.4 Intake & Output: Intake and Output for Last 24 Hours 12/01/22 12/02/22 12/03/22 23:59 23:59 23:59 Intake Total 304.5 / 304.5 Balance 304.5 / 304.5 Lab / Micro Data Result Diagrams: 12/03/22 13:04 Labs: Laboratory Results - last 24 hr 12/03/22 06:25: APTT 29.8 12/03/22 09:40: POC Glucose 154 H 12/03/22 12:33: POC Glucose 173 H 12/03/22 13:04: Sodium 140, Potassium 4.1, Chloride 108 H, Carbon Dioxide 31.0, Anion Gap 1 L, BUN 6 L, Creatinine 0.52 L, Estim Creat Clear Calc 78.45, Est GFR (MDRD) Af Amer 154, Est GFR (MDRD) Non-Af 128, BUN/Creatinine Ratio 11.6, Glucose 175 H, Calcium 8.3 L Micro: Microbiology 12/03/22 09:02 Bone - Leg, Left Gram Stain - Final 12/03/22 09:02 Tissue Ulcer - Leg Gram Stain - Final Physical Exam Const alert, oriented x3 and no apparent distress Constitutional Narrative: Patient appears older than her stated age General Appearance: cooperative, well kempt and well developed Orientation / Consciousness: awake, oriented to person, oriented to place and oriented to time HEENT normocephalic, head/scalp atraumatic and moist oral mucous membranes Eyes PERRL, EOMs intact bilaterally and conjunctivae normal Neck supple, no JVD, thyroid normal and no carotid bruits General: trachea midline Resp normal respiratory effort, no retractions, no use of accessory muscles and clear to auscultation bilaterally Auscultation: Negative for rales, rhonchi or wheezes Cardio regular rate, regular rhythm, S1 normal heart sound, S2 normal heart sound, no murmurs, no rub and no gallops GI normal to inspection, nondistended, normoactive bowel sounds, soft to palpation, non-tender and non-distended Extremity Extremity Narrative: Left lower leg is wrapped with surgical dressing, this was not removed for examination of the area Skin no rashes or lesions noted General Skin Exam: no breakdown Neuro oriented x3, CN's II-XII intact bilaterally, moves all extremities, no focal motor deficits and no sensory deficits noted Sensorium / Orientation: awake, alert, oriented to person, oriented to place and oriented to time Speech: speech normal Psych affect normal Assessment & Plan Assessment/Plan (1) COPD (chronic obstructive pulmonary disease): PLAN: Plan 1. Chronic obstructive pulmonary disease-patient is currently on aerosol treatments, patient has a nicotine patch applied-she chronically smokes as an outpatient #2 prediabetes-patient will have fingerstick blood sugars performed and sliding scale insulin will be administered as needed. #3 chronic depression-patient is on Paxil, this will be continued #4 chronic seizure disorder-patient is on Dilantin at this time, this will be continued #5 chronic left leg wound with osteomyelitis of the left yoder-I talked with infectious diseases today, I will have them see the patient in consultation in case the patient needs outpatient IV antibiotic therapy. Total clinical time spent by myself addressing the patient's medical issues, reviewing all the data, and collaborating with patient's care team: 30 minutes Charges/Coding Visit Charges Office Visits / Consults: [id number] OV L4 Est
[2022-12-03] MEDS: Juven (unflavored) Packet 1 PACKET PO (16:33)
[2022-12-03] MEDS: Folic Acid 1 MG Tablet PO (16:33)
[2022-12-03] MEDS: Phenytoin Na 100 MG Capsule PO (16:34)
[2022-12-03] MEDS: oxyCODONE 5 MG Tablet 10 MG PO (16:43)
[2022-12-03] MEDS: Insulin Lispro 100 UNIT/ML INSULN.PEN SC (16:44)
[2022-12-03] MEDS: Vancomycin IV 500 MG/100 ML BAG 100 MG IV (18:39)
[2022-12-03 19:06] LABS: Bedside Glucose 184 mg/dL (74-106)
[2022-12-03] MEDS: Budesonide Respules 0.5 MG/2 ML AMPUL.NEB. INHALATION (21:03)
[2022-12-03] MEDS: Pravastatin 20 MG Tablet PO (22:42)
[2022-12-03 23:30] LABS: Bedside Glucose 129 mg/dL (74-106)
[2022-12-04] VITALS (7 sets, daily range): BP systolic 120–143; BP diastolic 54–66; PULSE 78–89; RESP 16–18; TEMP 36.2–36.8; O2SAT 97–99
[2022-12-04] MEDS: LORazepam 0.5 MG Tablet PO ×2 (02:56→21:37)
[2022-12-04] MEDS: 0.9% Saline Lock 10 ML Syringe IV (03:01)
[2022-12-04] MEDS: Ondansetron 4 MG/2 ML Vial IV ×2 (03:02→17:26)
[2022-12-04] MEDS: Vancomycin IV 500 MG/100 ML BAG 100 MG IV ×2 (06:16→18:34)
[2022-12-04] MEDS: Lactated Ringers 1,000 ML 60 ML IV (06:30)
[2022-12-04] MEDS: Budesonide Respules 0.5 MG/2 ML AMPUL.NEB. INHALATION ×2 (06:39→19:43)
[2022-12-04] MEDS: Ipratropium/Albuterol Sulfate 3 ML AMPUL.NEB INHALATION ×3 (06:39→19:43)
[2022-12-04 06:42] LABS: Hematocrit 37.9 % (37-47); Hemoglobin 12.3 g/dL (12.0-15.0); Mean Corp Hgb Conc 32.5 g/dL (32-36); Mean Corpuscular Hgb 30.3 pg (27.0-32.0); Mean Corpuscular Volume 93.3 fL (81-99); Mean Platelet Vol. 9.7 fl (6.2-12.0); Platelet Count 204 K/mm3 (150-450); RBC Distribution Width SD 44.8 fl (35.1-43.9); Red Blood Count 4.06 M/mm3 (4.2-5.4); White Blood Count 8.1 K/mm3 (4.4-11.0)
[2022-12-04 07:12] LABS: Anion Gap 2 (5-15); BUN 13 mg/dL (7-18); BUN/Creat Ratio 24.5 RATIO (10-20); Calcium,Total 8.6 mg/dL (8.5-10.1); Chloride 107 mmol/L (98-107); Creatinine, Serum 0.53 mg/dL (0.55-1.02); EST Glomerular Filtration Rate 124 mL/min (>60); Est Glom Filt Rate - Afr Amer 150 mL/min (>60); Estimated Creatinine Clearance 76.97 ml/min; Glucose 102 mg/dL (74-106); Potassium 4.4 mmol/L (3.5-5.1); Prealbumin 14.5 mg/dL (20.0-40.0); Sodium Level 139 mmol/L (136-145)
[2022-12-04] MEDS: Ensure Plus High Protein 120 ML LIQUID PO ×4 (08:51→21:37)
[2022-12-04] MEDS: Juven (unflavored) Packet 1 PACKET PO ×2 (08:51→17:15)
[2022-12-04] MEDS: oxyCODONE 5 MG Tablet 10 MG PO ×2 (08:51→21:45)
[2022-12-04] MEDS: Cholecalciferol (VIT D3) 25 MCG TABLET (1,000 UNITS) 125 MCG PO (08:52)
[2022-12-04] MEDS: Enoxaparin 40 MG/0.4 ML Syringe SC (08:52)
[2022-12-04] MEDS: Loratadine 10 MG Tablet PO (08:53)
[2022-12-04] MEDS: Ascorbic Acid 500 MG Tablet PO (08:53)
--- NOTE | 2022-12-04 08:53 | WOUNDNOTE ---
wound photo: left lower leg
[2022-12-04] MEDS: Docusate Sodium 100 MG Capsule PO (08:54)
[2022-12-04] MEDS: Phenytoin Na 100 MG Capsule PO ×2 (08:54→17:17)
[2022-12-04] MEDS: Pantoprazole Sodium 40 MG Tablet PO (08:54)
[2022-12-04] MEDS: Folic Acid 1 MG Tablet PO ×2 (08:54→17:16)
[2022-12-04] MEDS: Paroxetine 20 MG Tablet PO (08:54)
--- NOTE | 2022-12-04 09:30 | CASEMGMT ---
Addendum entered by Bevelry Vallejo 12/04/22 16:18: Pt aware of accepting agency, cost of medication =0. Pt sig other in room. Made aware that pt can dc tonight after dose if the physician is agreeable as far as home set up is concerned. Significant other in room, they have money for a taxi home. Green sheet on chart for dc instructions and wound vac orders to be faxed to [facility]. Message via [employer] to both to make aware that dc instructions will be sent once received. Message to to confirm dc today, no response. Spoke with wound nurse who states vac should be approved yet this evening and she will keep checking. Pt and sig other deny further needs. Addendum entered by Beverly Vallejo 12/04/22 13:24: Received rx for IV atb. Uploaded to [employer] and sent to [facility] and [facility] at this time. Addendum entered by Beverly Vallejo 12/04/22 12:00: [facility] is able to accept pt for SOC tomorrow morning. Addendum entered by Beverly Vallejo 12/04/22 10:12: TC to Rob at [facility], referral made then sent via iSpye. She will review staffing and see if able to accept pt. Referral sent to [facility] via [employer] at this time as well. Original Note: AHSAN LANZA Assessment: Face to Face with pt for initial transition planning/care coordination assessment. AHSAN LANZA introduced self and role at [facility], pt voices understanding and consents to assessment. Pt is A/O x4 and answers all questions appropriately at this time. Pt sitting up in bed in no distress. Care providers, pharmacy, and demographics verified/updated. Admitting Dx: Left anterior leg I&D debridement partial ostectomy PCP:Raegan Mora from [facility] Specialists:Karen, MAHAMED; ALEX Holt, MAURO on Wednesdays Preferred Pharmacy: [facility] Retail Insurance: [employer] Prescription Benefit: yes LNOK: Latanya and Juan Pablo Lock, parents; Raphael Chao, sig other Living Arrangements: Pt lives with sig other in a ground level apt with 2 steps to enter. Pt reports she is mostly I in ADL's and denies concerns at home. Pt states her sig other assists her if she needs it for bathing or dressing. Transportation: Pt states they do not have a car and that they use [facility] transportation for appts. DME/HHC/SNF: Pt has a grab bar in the bathroom, w/c and rollator. Pt reports she does not use AD typically. Pt has had CHN in the past and has been to [facility]. Pt states no concerns with going home at time of dc. Discussed the possibility of pt needing IV atb. Pt has a picc line. Pt states her sig other is able to assist her and is capable. Pt to have wound vac upon dc. Discussed HHC, pt requests same agency as in the past and denies need for a list of alternate options. Provided pt with a verbal local [facility] list, pt chose [facility]. Pt states no further concerns/needs. CM to follow. Advised pt to ask CM if any further question/concerns/needs arise, voices understanding. Pt Goal: Home with HHC Plan: Home with HHC
[2022-12-04 11:15] LABS: Bedside Glucose 127 mg/dL (74-106)
--- NOTE | 2022-12-04 12:07 | PCM.PN.HOSP ---
Reason for Visit Reason for Visit: Diagnoses Methicillin resistant Staphylococcus aureus infection, unspecified site (12/03/22) Type 2 diabetes mellitus without complications (12/03/22) Nicotine dependence, unspecified, uncomplicated (12/03/22) Chronic obstructive pulmonary disease, unspecified (12/03/22) Non-pressure chronic ulcer of unspecified part of left lower leg with bone involvement without evidence of necrosis (12/03/22) Osteomyelitis, unspecified (12/03/22) Unspecified open wound, left lower leg, sequela (12/03/22) Encounter for other preprocedural examination (12/03/22) Subjective Subjective Was seen and examined today, she does not complain of any shortness of breath, fever, or cough. Objective Data Objective Data Vital Signs: Vital Signs Temp Pulse Resp BP Pulse Ox O2 Del Method 97.9 F 87 18 137/66 H 98 Room Air 12/04/22 09:05 12/04/22 09:05 12/04/22 09:05 12/04/22 09:05 12/04/22 09:05 12/04/22 09:05 Oxygen Delivery Method Room Air Weight: 44.3 kg Body Mass Index (BMI) 20.4 Intake & Output: Intake and Output for Last 24 Hours 12/02/22 12/03/22 12/04/22 23:59 23:59 23:59 Intake Total 724.5 / 724.5 536 / 536 Output Total 250 / 250 Balance 724.5 / 724.5 286 / 286 Lab / Micro Data Result Diagrams: 12/04/22 06:27 12/04/22 06:27 Labs: Laboratory Results - last 24 hr 12/03/22 12:33: POC Glucose 173 H 12/03/22 13:04: Sodium 140, Potassium 4.1, Chloride 108 H, Carbon Dioxide 31.0, Anion Gap 1 L, BUN 6 L, Creatinine 0.52 L, Estim Creat Clear Calc 78.45, Est GFR (MDRD) Af Amer 154, Est GFR (MDRD) Non-Af 128, BUN/Creatinine Ratio 11.6, Glucose 175 H, Calcium 8.3 L 12/03/22 16:26: POC Glucose 184 H 12/03/22 22:37: POC Glucose 129 H 12/04/22 06:27: WBC 8.1, RBC 4.06 L, Hgb 12.3, Hct 37.9, MCV 93.3, MCH 30.3, MCHC 32.5, RDW Std Deviation 44.8 H, RDW Coeff of Brittany 13.0, Plt Count 204, MPV 9.7 12/04/22 06:27: Sodium 139, Potassium 4.4, Chloride 107, Carbon Dioxide 30.0, Anion Gap 2 L, BUN 13, Creatinine 0.53 L, Estim Creat Clear Calc 76.97, Est GFR (MDRD) Af Amer 150, Est GFR (MDRD) Non-Af 124, BUN/Creatinine Ratio 24.5 H, Glucose 102, Calcium 8.6, Prealbumin 14.5 L 12/04/22 10:56: POC Glucose 127 H Micro: Microbiology 12/03/22 09:02 Bone - Leg, Left Gram Stain - Final 12/03/22 09:02 Bone - Leg, Left Wound Culture - Preliminary No growth-Final to follow 12/03/22 09:02 Tissue Ulcer - Leg Gram Stain - Final 12/03/22 09:02 Tissue Ulcer - Leg Wound Culture - Preliminary Coag Negative Staph Physical Exam Narrative alert, oriented x3 and no apparent distress Constitutional Narrative: Patient appears older than her stated age General Appearance: cooperative, well kempt and well developed Orientation / Consciousness: awake, oriented to person, oriented to place and oriented to time HEENT normocephalic, head/scalp atraumatic and moist oral mucous membranes Eyes PERRL, EOMs intact bilaterally and conjunctivae normal Neck supple, no JVD, thyroid normal and no carotid bruits General: trachea midline Resp normal respiratory effort, no retractions, no use of accessory muscles and clear to auscultation bilaterally Auscultation: Negative for rales, rhonchi or wheezes Cardio regular rate, regular rhythm, S1 normal heart sound, S2 normal heart sound, no murmurs, no rub and no gallops GI normal to inspection, nondistended, normoactive bowel sounds, soft to palpation, non-tender and non-distended Extremity Extremity Narrative: Left lower leg is wrapped with surgical dressing, this was not removed for examination of the area Skin Left lower leg has a wound VAC in place Neuro oriented x3, CN's II-XII intact bilaterally, moves all extremities, no focal motor deficits and no sensory deficits noted Sensorium / Orientation: awake, alert, oriented to person, oriented to place and oriented to time Speech: speech normal Psych affect normal Assessment & Plan Assessment/Plan (1) Diabetes mellitus: (2) COPD (chronic obstructive pulmonary disease): PLAN: Plan 1. Chronic obstructive pulmonary disease-patient is currently on aerosol treatments, patient has a nicotine patch applied-she chronically smokes as an outpatient #2 prediabetes-patient will have fingerstick blood sugars performed and sliding scale insulin will be administered as needed. #3 chronic depression-patient is on Paxil, this will be continued #4 chronic seizure disorder-patient is on Dilantin at this time, this will be continued #5 chronic left leg wound with osteomyelitis of the left yoder-infectious diseases will see the patient today Total clinical time spent by myself addressing the patient's medical issues, reviewing all the data, and collaborating with patient's care team: 30 minutes Charges/Coding Visit Charges Office Visits / Consults: [id number] OV L4 Est
[2022-12-04] MEDS: Acetaminophen 500 MG Tablet PO ×2 (12:19→18:33)
--- NOTE | 2022-12-04 13:56 | CON.PCM.ID_ITS ---
Assessment & Plan Assessment/Plan (1) Osteomyelitis: PLAN: L yoder chronic MRSA osteo - surg cx showing some CoNS. Taken to OR 12/03/[address] Jones for I&D. Picc in place, will write for 6 weeks iv vanc with weekly labs, stop date 01/14/23. ID followup in 2-3 weeks. Will follow, thank you, d/w case therapist (2) Venous insufficiency (chronic) (peripheral): (3) COPD (chronic obstructive pulmonary disease): (4) Rheumatoid arthritis: HPI Consult Data Date of Consult: 12/04/22 HPI Narrative Reason for Consultation: osteo HPI Narrative: ANGELA JERONIMO, is a 62 F with chronic L yoder ulcer and MRSA osteo. Presented for scheduled surgery of non-healing ulcer. No fever or chills. Off abx for a while now. Taken to OR 12/03/[address] Jones for I&D and wound vac placement. Feeling ok today, no n/v/d, picc is in place. Full ROS performed and neg except as noted above. [facility] Medical History Anemia Anxiety Depression DM type 2, goal HbA1c < 7% Emphysema, unspecified Epilepsy FH: bilateral hip replacements Gastric reflux High cholesterol Loss of hearing MRSA (methicillin resistant Staphylococcus aureus) infection Myocardial infarct Open wound Seizures Sequelae of open wound of left lower extremity Smoker Ulcer of left yoder limited to breakdown of skin Wears dentures Wears glasses Home Medications alendronate 70 mg tablet 70 mg PO SA BONES 12/22/16 [History Last Taken 06/10/20] ipratropium 20 mcg-albuterol 100 mcg/actuation mist for inhalation (Combivent Respimat) 1 puff inhalation Q4H SOB 12/22/16 [History Last Taken Unknown] phenytoin sodium extended 100 mg capsule 100 mg PO BID@0900,1700 SEIZURES 12/22/16 [History Last Taken 12/03/22 04:30] acetaminophen 500 mg tablet 500 mg PO Q6H PRN PRN Pain Or Fever 06/12/20 [History Last Taken Unknown] aclidinium bromide 400 mcg/actuation breath activated powder inhaler 400 mcg IH BID SOB 06/12/20 [History Last Taken 06/12/20] ascorbic acid (vitamin C) 500 mg tablet 500 mg PO DAILY SUPPLEMENT 06/12/20 [History Last Taken 06/12/20] benzonatate 100 mg capsule 100 mg PO DAILY PRN Cough 06/12/20 [History Last Taken Unknown] cyclobenzaprine 10 mg tablet 10 mg PO BID PRN PRN BACK 06/12/20 [History Last Taken Unknown] diclofenac sodium 75 mg tablet,delayed release 75 mg PO BID PRN PRN BACK PAIN 06/12/20 [History Last Taken Unknown] fluticasone propionate 100 mcg/actuation blister powder for inhalation 2 puff inhalation BID COPD 06/12/20 [History Last Taken 06/12/20] folic acid 1 mg tablet 1 mg PO BID SUPPLEMENT 06/12/20 [History Last Taken 06/12/20] loratadine 10 mg tablet 10 mg PO DAILY ALLERGIES 06/12/20 [History Last Taken 12/03/22 04:30] paroxetine HCl 20 mg tablet 20 mg PO DAILY DEPRESSION 06/12/20 [History Last Taken 06/12/20] pravastatin 20 mg tablet 20 mg PO QHS CHOLESTEROL 06/12/20 [History Last Taken 06/11/20] cholecalciferol (vitamin D3) 25 mcg (1,000 unit) tablet 5,000 unit PO DAILY 06/15/20 [Rx Last Taken Unknown] lorazepam 0.5 mg tablet (Ativan) 0.5 mg PO BID PRN anxiety #10 tabs 07/08/22 [Rx Last Taken Unknown] omeprazole 40 mg capsule,delayed release 40 mg PO DAILY #30 caps 07/08/22 [Rx Last Taken 12/03/22 04:30] vancomycin 500 mg/100 mL in dextrose 5 % intravenous piggyback 500 mg IV Q12H 41 days #8,200 mL 12/04/22 [Rx Last Taken Unknown] Allergy/AdvReac Type Severity Reaction Status Date / Time Penicillins Allergy Severe Shortness Verified 12/03/22 12:05 of breath amoxicillin Allergy Hives Verified 12/03/22 12:05 aspirin AdvReac PT UNSURE Verified 12/03/22 12:05 OF REACTION Surgical History (Updated 11/26/22 @ 12:47 by Prachi Saldaña) H/O repair of right rotator cuff H/O: hysterectomy History of cardiac catheterization History of cholecystectomy Social History Smoking Status: Current every day smoker tobacco type: cigarettes Physical Exam Const alert, oriented x3 and no apparent distress General Appearance: cooperative HEENT normocephalic and head/scalp atraumatic Eyes PERRL and EOMs intact bilaterally Neck supple and No nodes Resp Auscultation: diminished lung sounds Cardio regular rate and regular rhythm GI soft to palpation, non-tender and non-distended Extremity General Extremity: Negative for edema Skin Skin Narrative: wound vac over L yoder. Picc in place. Neuro CN's II-XII intact bilaterally Lab / Micro Data Attestation: I reviewed the patient's lab results. Result Diagrams: 12/04/22 06:27 12/04/22 06:27 Labs: Laboratory Results - last 24 hr 12/03/22 16:26: POC Glucose 184 H 12/03/22 22:37: POC Glucose 129 H 12/04/22 06:27: WBC 8.1, RBC 4.06 L, Hgb 12.3, Hct 37.9, MCV 93.3, MCH 30.3, MCHC 32.5, RDW Std Deviation 44.8 H, RDW Coeff of Brittany 13.0, Plt Count 204, MPV 9.7 12/04/22 06:27: Sodium 139, Potassium 4.4, Chloride 107, Carbon Dioxide 30.0, Anion Gap 2 L, BUN 13, Creatinine 0.53 L, Estim Creat Clear Calc 76.97, Est GFR (MDRD) Af Amer 150, Est GFR (MDRD) Non-Af 124, BUN/Creatinine Ratio 24.5 H, Glucose 102, Calcium 8.6, Prealbumin 14.5 L 12/04/22 10:56: POC Glucose 127 H Micro: Microbiology 12/03/22 09:02 Bone - Leg, Left Gram Stain - Final 12/03/22 09:02 Bone - Leg, Left Wound Culture - Preliminary No growth-Final to follow 12/03/22 09:02 Tissue Ulcer - Leg Gram Stain - Final 12/03/22 09:02 Tissue Ulcer - Leg Wound Culture - Preliminary Coag Negative Staph
[2022-12-04] MEDS: Insulin Lispro 100 UNIT/ML INSULN.PEN SC (17:15)
[2022-12-04 18:00] LABS: Bedside Glucose 289 mg/dL (74-106)
[2022-12-04 18:38] LABS: Vancomycin, Trough Level 7.9 ug/mL (5.0-15.0)
--- NOTE | 2022-12-04 18:45 | PHA.PHARE_ITS ---
Consult Pharmacy has been consulted to manage selected antiobiotic: Vancomycin Type of Consult: Follow-up Prior Doses of Antibiotics Received/Current Regimen: Medications Vancomycin HCl () 500 mg in 100 mls @ 100 mls/hr IV Q12H [facility] Last Admin: 12/04/22 18:34 Dose: 100 mls/hr Discontinued Medications Vancomycin HCl (Vancomycin) 1,000 mg in 200 mls @ 200 mls/hr IV Q12H [facility] Last Admin: 12/03/22 08:01 Dose: Infused Labs: Sodium 139 mmol/L (136-145) 12/04/22 06:27 Potassium 4.4 mmol/L (3.5-5.1) 12/04/22 06:27 Chloride 107 mmol/L (98-107) 12/04/22 06:27 Carbon Dioxide 30.0 mmol/L (21.0-32.0) 12/04/22 06:27 Anion Gap 2 (5-15) L 12/04/22 06:27 BUN 13 mg/dL (7-18) 12/04/22 06:27 Creatinine 0.53 mg/dL (0.55-1.02) L 12/04/22 06:27 Est GFR (MDRD) Af Amer 150 mL/min (>60) 12/04/22 06:27 Est GFR (MDRD) Non-Af 124 mL/min (>60) 12/04/22 06:27 BUN/Creatinine Ratio 24.5 RATIO (10-20) H 12/04/22 06:27 Glucose 102 mg/dL (74-106) 12/04/22 06:27 Vancomycin Trough 7.9 ug/mL (5.0-15.0) 12/04/22 17:30 Microbiology: Microbiology 12/03/22 09:02 Bone - Leg, Left Gram Stain - Final 12/03/22 09:02 Bone - Leg, Left Wound Culture - Preliminary No growth-Final to follow 12/03/22 09:02 Tissue Ulcer - Leg Gram Stain - Final 12/03/22 09:02 Tissue Ulcer - Leg Wound Culture - Preliminary Coag Negative Staph Goal Trough: 15-20 mcg/mL Pharmacy Plan for Drug Dosing: Trough below goal. Increase to 1000mg IV q12h and re-check prior to 4th dose. Pharmacy Service will continue to monitor and adjust dosing as required. Follow-Up Labs: Trough Vancomycin - 12/06 @ 4209
--- NOTE | 2022-12-04 19:19 | PN.SURG_ITS ---
Subjective Subjective Postop #1 Patient is resting comfortably. Tolerated the VAC dressing change. Tolerating po analgesia. Objective Data Objective Data Vital Signs: Vital Signs Temp Pulse Resp BP Pulse Ox O2 Del Method 97.9 F 84 16 126/59 H 97 Room Air 12/04/22 14:27 12/04/22 14:27 12/04/22 14:27 12/04/22 14:27 12/04/22 14:12/04/22 14:27 Oxygen Delivery Method Room Air Weight: 97 lb 10.636 oz Body Mass Index (BMI) 20.4 Intake & Output: Intake and Output for Last 24 Hours 12/02/22 12/03/22 12/04/22 23:59 23:59 23:59 Intake Total 724.5 / 724.5 536 / 536 Output Total 250 / 250 Balance 724.5 / 724.5 286 / 286 Prealbumin was 14.5. Encourage nutritional supplementation with protein to help the healing process. Lab / Micro Data Attestation: I reviewed the patient's lab results. Result Diagrams: 12/04/22 06:27 12/04/22 06:27 Labs: Laboratory Results - last 24 hr 12/03/22 22:37: POC Glucose 129 H 12/04/22 06:27: WBC 8.1, RBC 4.06 L, Hgb 12.3, Hct 37.9, MCV 93.3, MCH 30.3, MCHC 32.5, RDW Std Deviation 44.8 H, RDW Coeff of Brittany 13.0, Plt Count 204, MPV 9.7 12/04/22 06:27: Sodium 139, Potassium 4.4, Chloride 107, Carbon Dioxide 30.0, Anion Gap 2 L, BUN 13, Creatinine 0.53 L, Estim Creat Clear Calc 76.97, Est GFR (MDRD) Af Amer 150, Est GFR (MDRD) Non-Af 124, BUN/Creatinine Ratio 24.5 H, Gluc ose 102, Calcium 8.6, Prealbumin 14.5 L 12/04/22 10:56: POC Glucose 127 H 12/04/22 17:14: POC Glucose 289 H 12/04/22 17:30: Vancomycin Trough 7.9 Micro: Microbiology 12/03/22 09:02 Bone - Leg, Left Gram Stain - Final 12/03/22 09:02 Bone - Leg, Left Wound Culture - Preliminary No growth-Final to follow 12/03/22 09:02 Tissue Ulcer - Leg Gram Stain - Final 12/03/22 09:02 Tissue Ulcer - Leg Wound Culture - Preliminary Coag Negative Staph Pathology is pending. Physical Exam Narrative General - Alert and Oriented. HEENT - PERRL. EOMI. Neck - Supple and nontender. Abdomen - Soft and nondistended. Extremities - FROM. No inguinal adenopathy. Dorsalis pedis pulses are palpable, not very strong. Wound left anterior leg is stable. No active bleeding noted. VAC applied without difficulty. Neuro - CN II-XII grossly intact. Psych - Normal mood and affect. 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 No active bleeding noted. VAC applied without difficulty. To be changed three times per week at 150mmHg continuous suction. Patient is tolerating po analgesia. Anticipate increased metabolic demands from the wound and the infection. Prealbumin was 14.5. Encourage nutritional supplementation with protein to help the healing process. Appreciate Infectious Diseases input with antibiotic management. Recommenda tions are 6 weeks of IV Vancomycin. Weekly labs to be checked (CBC, CMP, ESR, CRP, Vancomycin Trough). Operative cultures show Coag Negative Staph in the soft tissue and negative thus far in the bone. Pathology is pending. Appreciate Hospitalist Group input with medical management. Patient would like to go home tonight. However the VAC is not approved yet. If approved, can be discharged tonight. Otherwise anticipate VAC approval tomorrow and discharge tomorrow. Home Health to assist with VAC changes three times per week at 150 mmHg continuous suction. Followup Wound Center one week. Wrote scripts for Percocet for pain (28 tabs), Phenergan, and Colace. Encouraged patient to stop smoking as it may have deleterious effects on wound healing.
--- NOTE | 2022-12-04 19:19 | PCM.DC ---
Discharge Instructions Diet Discharge Diet: Carb Control Diet and - (encourage nutritional supplementation with protein to help the healing process.) Activity Discharge Activity: May Not Drive, May Shower (on the days the vac is changed.) and - (elevate left leg. Patient may ambulate. No standing. When she gets to her destination, she needs to sit and elevate left leg.) May shower in (days): 2 (on the days the vac is changed.) May resume sexual activity in: No Restrictions Weight Bearing Status: Weight bearing as tolerated Keep extremity elevated above heart level: Left Leg Additional Activity Instructions:: Home Health to assist in the vac dressing changes to left anterior leg three times per week at 150 mmHg continuous suction followed by compression irving wrap. Dressing / Incision Call your doctor if your incision/area has: Continuous Slow Oozing, Sudden Increased Bleeding, Increased Pain/ Swelling, Increased Redness, Foul Smelling Discharge and Swelling at the incision site Call your doctor if you observe: Fever of 101 or Higher, Coldness, Increased Pain, Shortness of breath, Chest pain, Calf discomfort and Uncontrolled pain Change Dressing in: 2 days (Home Health to assist with vac dressing changes to left anterior leg three times per week at 150 mmHg continuous suction followed by compression irving wrap.) Cleanse incision/area with: Soap & Water (may cleanse the wound left anterior leg with soap and water at the time of the vac change.) and - (wear plastic bag over left leg when showering.) Follow Up Care Please Follow Up With: Milagros Ibarra NP, [employer] BLENDER OPERATOR-C When: Friday12/11/22 at [facility]. Call [phone] for appt time. Test Results: Test results from this visit will be discussed in further detail at your follow-up appointment, if applicable. Pending Tests Upon Discharge: Patient to get weekly labs while on Vancomycin (CBC, CMP, ESR, CRP, Vancomycin Trough). Pharmacy to dose the Vancomycin. Discharge Plan Admission Admit Date/Time: 12/03/22 09:08 Primary Reason for Your Visit: debridement nonhealing infected MRSA ulcer left anterior leg Attending Provider: Maninder Jones Primary Care Provider: ASHA MAYORGA Consulting Providers: Manny Mejia ; Jayesh Holt Instructions Additional Instructions / Restrictions: Computer has a glitch. Will call in Percocet for pain (28 tabs), Colace, and Phenergan to [facility]. Discharge Orders/Prescriptions Prescriptions: New vancomycin in dextrose 5 % 500 mg/100 mL Piggyback 500 mg IV Q12H 41 Days Qty: 8200 0RF Rx Instructions: stop date 01/14/23 dx: osteomyelitis weekly bmp, cbc, esr, and vanc trough. Fax to [phone] Discontinued doxycycline hyclate 100 mg capsule 100 mg PO BID 21 Days Qty: 42 1RF No Action alendronate 70 MG tablet 70 mg PO SA phenytoin sodium extended 100 MG capsule 100 mg PO BID@0900,1700 Combivent Respimat 1 PUFF inhaler 1 puff inhalation Q4H cyclobenzaprine 10 MG tablet 10 mg PO BID PRN PRN (Reason: BACK) ascorbic acid (vitamin C) 500 MG tablet 500 mg PO DAILY benzonatate 100 MG capsule 100 mg PO DAILY PRN (Reason: Cough) paroxetine HCl 20 MG tablet 20 mg PO DAILY diclofenac sodium 75 MG tablet 75 mg PO BID PRN PRN (Reason: BACK PAIN) folic acid 1 MG tablet 1 mg PO BID pravastatin 20 MG tablet 20 mg PO QHS aclidinium bromide 400 MCG aerosol powdr breath activated 400 mcg IH BID acetaminophen 500 MG tablet 500 mg PO Q6H PRN PRN (Reason: Pain Or Fever) fluticasone propionate 100 mcg/actuation blister with device 2 puff inhalation BID loratadine 10 MG tablet 10 mg PO DAILY cholecalciferol (vitamin D3) 1,000 UNIT tablet 5,000 unit PO DAILY 0RF omeprazole 40 mg capsule,delayed release(DR/EC) 40 mg PO DAILY Qty: 30 0RF lorazepam [Ativan] 0.5 mg tablet 0.5 mg PO BID PRN (Reason: anxiety) Qty: 10 0RF Referrals / Follow Up: ASHA MAYORGA [Other] Disposition Disposition (needs filled in before D/C Order can be placed): Home Health Service
[2022-12-04] MEDS: Pravastatin 20 MG Tablet PO (21:38)
[2022-12-04 22:05] LABS: Bedside Glucose 105 mg/dL (74-106)
[2022-12-04 22:05] LABS: Bedside Glucose 117 mg/dL (74-106)
[2022-12-05] MEDS: Docusate Sodium 100 MG Capsule PO ×2 (00:24→09:52)
[2022-12-05] MEDS: Lactated Ringers 1,000 ML 60 ML IV (00:25)
[2022-12-05] MEDS: Acetaminophen 500 MG Tablet PO (02:50)
[2022-12-05] MEDS: oxyCODONE 5 MG Tablet 10 MG PO (02:51)
[2022-12-05] MEDS: Vancomycin IV 1,000 MG/200 ML BAG 200 MG IV ×2 (05:14→13:46)
[2022-12-05 06:00] VITALS: BP 123/60; PULSE 80; RESP 18; TEMP 36.8; O2SAT 95
[2022-12-05 07:05] LABS: Bedside Glucose 136 mg/dL (74-106)
[2022-12-05 07:24] VITALS: PULSE 90; RESP 18; O2SAT 96
[2022-12-05] MEDS: Budesonide Respules 0.5 MG/2 ML AMPUL.NEB. INHALATION (07:24)
[2022-12-05] MEDS: Ipratropium/Albuterol Sulfate 3 ML AMPUL.NEB INHALATION ×2 (07:24→13:11)
[2022-12-05] MEDS: Phenytoin Na 100 MG Capsule PO (08:18)
[2022-12-05] MEDS: Juven (unflavored) Packet 1 PACKET PO (08:18)
[2022-12-05] MEDS: Folic Acid 1 MG Tablet PO (08:19)
--- NOTE | 2022-12-05 08:40 | CASEMGMT ---
Addendum entered by Yariel Urena 12/05/22 11:30: d/c instructions sent to N via [facility] w/message confirming pt is discharging home today after PM dose of Vanco infused. Addendum entered by Yariel Urena 12/05/22 11:23: Pt, friend Raphael, and RN, Alexandra, all made aware of plan for IV atb to be given @ 2 PM today and [facility] Van to transport pt home @ 4 PM. Pt and Raphael made aware [facility] to deliver new dose IV Vanco today and [facility] SOC slated for tomorrow AM around 7-8 AM and and that [facility] to contact pt to verify time. Questions answered. Pt and Raphael voice appreciation. Addendum entered by Yariel Urena 12/05/22 11:15: Spoke w/Jewels @ [facility]. They are able to deliver IV Vanc 1 GM to pt's home today. Jewels aware pt is discharging home today w/[facility] SOC tomorrow AM. Addendum entered by Yariel Urena 12/05/22 09:59: Per Delmi, wound nurse, wound vac has been approved. Pt does not have transportation home. Call to Ernie in [facility] pharmacy. He states 6 PM dose of Vanco can be given as early as 2 PM today. Call to [facility] Van transportation. They have availability to take pt home today @ 4 PM. Call to pharmacy and spoke w/Thao. She states will ensure 6 PM IV Vanco dose is delivered to [facility] by 2 PM so it can be given early. Call to Dr Jones and he was notified of new Script for IV vanco 1 GM q 12 hrs and that wound vac approved. He plans to discharge pt home today. Call to [facility] to notify them of new script for IV vanco 1 gm. Awaiting call back from Jewels re: if they can deliver new dose of Vanco to pt's home today. Call to N and spoke w/Mariaa. She was made aware of above and states SOC will be tomorrow AM around 7 or 8 AM. She will contact pt to verify time. Script for new dose IV Vanco 1 GM q 12 hrs sent to both [facility] and [facility] via [facility]. Per Dr Jones, pt to call to to schedule an appt for next Fri. AHSAN LANZA spoke w/pt about above tentative plans and questions answered. She states has not made an appt @ for next Fri yet and asks if AHSAN LANZA can schedule the appt. Call to and spoke w/Shelia. She states pt is already schedule for an appt @ for next 12/11 @ 10 AM w/[facility] van scheduled to pick pt up @ 9:30 AM. Pt made aware and appt entered into discharge plan. Original Note: AHSAN LANZA NOTE: Pt not discharged last PM. Per Delmi, wound nurse, wound vac has not been approved yet. Call to [place] @ [facility] and she is aware. AHSAN LANZA will notify N once wound vac approved. Call to [facility] and spoke w/Jewels who verified medication and supplies were delivered to pt's home last PM. Sunni HERNANDEZ RN, CM
[2022-12-05 09:00] VITALS: BP 143/66; PULSE 91; RESP 16; RESP 18; TEMP 37.1; O2SAT 97
[2022-12-05] MEDS: Cholecalciferol (VIT D3) 25 MCG TABLET (1,000 UNITS) 125 MCG PO (09:51)
[2022-12-05] MEDS: Pantoprazole Sodium 40 MG Tablet PO (09:52)
[2022-12-05] MEDS: Enoxaparin 40 MG/0.4 ML Syringe SC (09:52)
[2022-12-05] MEDS: Paroxetine 20 MG Tablet PO (09:52)
[2022-12-05] MEDS: Ascorbic Acid 500 MG Tablet PO (09:52)
[2022-12-05] MEDS: Loratadine 10 MG Tablet PO (09:52)
[2022-12-05] MEDS: Ensure Plus High Protein 120 ML LIQUID PO (09:52)
--- NOTE | 2022-12-05 10:19 | PN.ID_ITS ---
Physical Exam Narrative Feeling ok, no fever, d/c home planned for today Const alert and no apparent distress Resp normal air movement and clear to auscultation bilaterally Cardio regular rate and regular rhythm GI soft to palpation, non-tender and non-distended Skin Skin Narrative: wound vac in place ID ID: Route of nutrition/ use of supplements: [] Nutritional Intake: [] IV Site: [] Mariscal Catheter: [] Assessment & Plan Assessment/Plan (1) Osteomyelitis: PLAN: L yoder chronic MRSA osteo - surg cx showing staph aureus. Taken to OR 12/03/[address] Jones for I&D. Picc in place, ok for discharge home on 6 weeks iv vanc with weekly labs, stop date 01/14/23. ID followup in 2-3 weeks. Adjusted vanc dose today. Will follow, d/w immigration case manager (2) Venous insufficiency (chronic) (peripheral): (3) COPD (chronic obstructive pulmonary disease): (4) Rheumatoid arthritis:
[2022-12-05] MEDS: 0.9% Saline Lock 10 ML Syringe IV (10:55)
[2022-12-05] MEDS: Ondansetron 4 MG/2 ML Vial IV (10:55)
[2022-12-05 11:25] LABS: Bedside Glucose 137 mg/dL (74-106)
[2022-12-05 13:12] VITALS: PULSE 82; RESP 16
[2022-12-05 13:44] VITALS: BP 118/70; PULSE 78; RESP 18; TEMP 36.8; O2SAT 97
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
[2022-12-05 15:28] VITALS: BP 120/66; PULSE 70; RESP 18; TEMP 37; O2SAT 98
--- NOTE | 2022-12-05 15:40 | PCM.PN.HOSP ---
Reason for Visit Reason for Visit: Diagnoses Methicillin resistant Staphylococcus aureus infection, unspecified site (12/03/22) Type 2 diabetes mellitus without complications (12/03/22) Nicotine dependence, unspecified, uncomplicated (12/03/22) Other acute postprocedural pain (12/03/22) Venous insufficiency (chronic) (peripheral) (12/03/22) Chronic obstructive pulmonary disease, unspecified (12/03/22) Non-pressure chronic ulcer of unspecified part of left lower leg with bone involvement without evidence of necrosis (12/03/22) Rheumatoid arthritis, unspecified (12/03/22) Osteomyelitis, unspecified (12/03/22) Unspecified open wound, left lower leg, sequela (12/03/22) Encounter for other preprocedural examination (12/03/22) Subjective Subjective Patient was seen and examined today, she was set up with home IV antibiotic treatment, she appears stable for discharge at this time. Objective Data Objective Data Vital Signs: Vital Signs Temp Pulse Resp BP Pulse Ox O2 Del Method 98.6 F 70 18 120/66 98 Room Air 12/05/22 15:28 12/05/22 15:28 12/05/22 15:28 12/05/22 15:28 12/05/22 15:28 12/05/22 15:28 Oxygen Delivery Method Room Air Weight: 44.3 kg Body Mass Index (BMI) 20.4 Intake & Output: Intake and Output for Last 24 Hours 12/03/22 12/04/22 12/05/22 23:59 23:59 23:59 Intake Total 724.5 / 724.5 1536 / 1536 300 / 300 Output Total 250 / 250 1200 / 1200 Balance 724.5 / 724.5 1286 / 1286 -900 / -900 Lab / Micro Data Result Diagrams: 12/04/22 06:27 12/04/22 06:27 Labs: Laboratory Results - last 24 hr 12/04/22 06:15: POC Glucose 105 12/04/22 17:14: POC Glucose 289 H 12/04/22 17:30: Vancomycin Trough 7.9 12/04/22 21:34: POC Glucose 117 H 12/05/22 06:41: POC Glucose 136 H 12/05/22 11:00: POC Glucose 137 H Micro: Microbiology 12/03/22 09:02 Bone - Leg, Left Gram Stain - Final 12/03/22 09:02 Bone - Leg, Left Wound Culture - Preliminary Staphylococcus aureus 12/03/22 09:02 Bone - Leg, Left Anaerobic Culture - Preliminary No growth in 48 hours. 12/03/22 09:02 Tissue Ulcer - Leg Gram Stain - Final 12/03/22 09:02 Tissue Ulcer - Leg Wound Culture - Final Meth. resistant Staph. aureus Physical Exam Narrative alert, oriented x3 and no apparent distress Constitutional Narrative: Patient appears older than her stated age General Appearance: cooperative, well kempt and well developed Orientation / Consciousness: awake, oriented to person, oriented to place and oriented to time HEENT normocephalic, head/scalp atraumatic and moist oral mucous membranes Eyes PERRL, EOMs intact bilaterally and conjunctivae normal Neck supple, no JVD, thyroid normal and no carotid bruits General: trachea midline Resp normal respiratory effort, no retractions, no use of accessory muscles and clear to auscultation bilaterally Auscultation: Negative for rales, rhonchi or wheezes Cardio regular rate, regular rhythm, S1 normal heart sound, S2 normal heart sound, no murmurs, no rub and no gallops GI normal to inspection, nondistended, normoactive bowel sounds, soft to palpation, non-tender and non-distended Extremity Extremity Narrative: Left lower leg is wrapped with surgical dressing, this was not removed for examination of the area Skin Left lower leg has a wound VAC in place Neuro oriented x3, CN's II-XII intact bilaterally, moves all extremities, no focal motor deficits and no sensory deficits noted Sensorium / Orientation: awake, alert, oriented to person, oriented to place and oriented to time Speech: speech normal Psych affect normal Assessment & Plan Assessment/Plan (1) Ulcer of left lower extremity with fat layer exposed: (2) Diabetes mellitus: (3) COPD (chronic obstructive pulmonary disease): PLAN: Plan 1. Chronic obstructive pulmonary disease-patient was given aerosol treatments while hospitalized, she wore a nicotine patch while hospitalized #2 prediabetes #3 chronic depression-patient is on Paxil, this will be continued #4 chronic seizure disorder-patient is on Dilantin at this time, this will be continued #5 chronic left leg wound with osteomyelitis of the left yoder-patient has been set up for home IV antibiotic treatment per infectious diseases Total clinical time spent by myself addressing the patient's medical issues, reviewing all the data, and collaborating with patient's care team: 25 minutes Charges/Coding Visit Charges Inpatient E&M: 44646 Subs Hosp L2
== END 2022-12-05 16:00 | disposition home health service (06) ==
LOC: SDC 11:13 → MS3 11:13
PROVIDERS: Anesthesiology; Admitting Provider Surgery; Referring Provider Surgery; Visit Provider Surgery
PROC: (CPT 27640; principal; 2022-12-03 07:15)
DX: E11.69 Type 2 diabetes mellitus with other specified complication (principal); L97.926 Non-pressure chronic ulcer of unspecified part of left lower leg with bone involvement without evidence of necrosis; M06.9 Rheumatoid arthritis, unspecified; M86.662 Other chronic osteomyelitis, left tibia and fibula; J43.9 Emphysema, unspecified; E11.59 Type 2 diabetes mellitus with other circulatory complications; G40.909 Epilepsy, unspecified, not intractable, without status epilepticus; Z79.83 Long term (current) use of bisphosphonates; E78.5 Hyperlipidemia, unspecified; I87.2 Venous insufficiency (chronic) (peripheral); F17.210 Nicotine dependence, cigarettes, uncomplicated; Z86.14 Personal history of Methicillin resistant Staphylococcus aureus infection; Z79.899 Other long term (current) drug therapy; Z79.51 Long term (current) use of inhaled steroids; I25.2 Old myocardial infarction; F32.A Depression, unspecified; F41.9 Anxiety disorder, unspecified; B95.62 Methicillin resistant Staphylococcus aureus infection as the cause of diseases classified elsewhere; R60.0 Localized edema; Z86.2 Personal history of diseases of the blood and blood-forming organs and certain disorders involving the immune mechanism
CPT/HCPCS: 27640; 27603; 36415; 36569; 80048; 80202; 82962; 84134; 85027; 85730; 87070; 87075; 87077; 87102; 87176; 87186; 87205; 87206; 88304; 88311; 94640; 94668; 96365; 96366; 96372; 96375; 96376; 97802; 99221; 99252; 99406; J7120; A4216; G0378; G0463; J2405

== ENCOUNTER → 2022-12-09 | Outpatient (CLI) | payer MEDICAID, SELFPAY ==
[2022-12-09 10:45] LABS: Erythrocyte Sedimentation Rate 11 mm/hr (0-30)
[2022-12-09 10:47] LABS: Hematocrit 35.6 % (37-47); Hemoglobin 11.4 g/dL (12.0-15.0); Mean Corpuscular Hgb 29.7 pg (27.0-32.0); Mean Corpuscular Volume 92.7 fL (81-99); Mean Platelet Vol. 10.5 fl (6.2-12.0); Platelet Count 258 K/mm3 (150-450); RBC Distribution Width CV 12.9 % (11.6-14.6); RBC Distribution Width SD 43.3 fl (35.1-43.9); Red Blood Count 3.84 M/mm3 (4.2-5.4); White Blood Count 8.7 K/mm3 (4.4-11.0)
[2022-12-09 10:50] LABS: Anion Gap 4 (5-15); BUN 10 mg/dL (7-18); BUN/Creat Ratio 26.2 RATIO (10-20); Calcium,Total 8.6 mg/dL (8.5-10.1); Chloride 111 mmol/L (98-107); Creatinine, Serum 0.38 mg/dL (0.55-1.02); EST Glomerular Filtration Rate 182 mL/min (>60); Est Glom Filt Rate - Afr Amer 220 mL/min (>60); Glucose 98 mg/dL (74-106); Potassium 4.1 mmol/L (3.5-5.1); Sodium Level 141 mmol/L (136-145)
[2022-12-09 11:02] LABS: Vancomycin, Trough Level 10.3 ug/mL (5.0-15.0)
== END | disposition home or self-care (01) ==
PROVIDERS: Visit Provider Surgery
DX: M86.9 Osteomyelitis, unspecified (principal)
CPT/HCPCS: 80048; 80202; 85027; 85652

== ENCOUNTER 2022-12-21 11:18 | Emergency (ER) | payer MEDICAID, SELFPAY ==
[2022-12-21 11:19] VITALS: BP 149/78; PULSE 80; RESP 14; TEMP 36.9; O2SAT 99; BMI 22.2
--- NOTE | 2022-12-21 11:32 | EKG12_ITS ---
Test Reason : PALPITATIONS Blood Pressure : / mmHG Vent. Rate : 076 BPM Atrial Rate : 076 BPM P-R Int : 134 ms QRS Dur : 070 ms QT Int : 392 ms P-R-T Axes : 048 049 080 degrees QTc Int : 441 ms Normal sinus rhythm Normal ECG Confirmed by CADEN MUELLER ([id number]), web content editor LIZETH REYES ([id number]) on 12/24/2022 7:26:29 AM Referred By: UG Confirmed By:CADEN MUELLER
--- NOTE | 2022-12-21 11:44 | EX.ED.DYSGE1 ---
HPI <SIMRAN Khan - Last Filed: 12/21/22 12:40> History of Present Illness Chief Complaint: Palpitations Narrative Narrative: Patient is a 62-year-old female with history of COPD, hypertension, CAD, prediabetes, history of osteomyelitis, who is currently being treated for a chronic wound to the left lower extremity that receives vancomycin 2 times a day and has a wound VAC attached at this time. Patient has been receiving vancomycin twice a day since December 04, 2022. Patient states that while she was receiving her treatment today, she felt fluttering in her chest. She denies any chest pain or shortness of breath. Denies any diaphoresis. Denies any pain to her shoulder or jaw. Patient states it would come and go. Patient did become concerned and is here for evaluation. [facility] <SIMRAN Khan - Last Filed: 12/21/22 12:40> [facility] Medical History (Updated 12/21/22 @ 14:[address] Loc Sanders MD) Anemia Anxiety Depression DM type 2, goal HbA1c < 7% Emphysema, unspecified Epilepsy FH: bilateral hip replacements Gastric reflux High cholesterol Loss of hearing MRSA (methicillin resistant Staphylococcus aureus) infection Myocardial infarct Open wound Osteomyelitis Seizures Sequelae of open wound of left lower extremity Smoker Ulcer of left yoder limited to breakdown of skin Wears dentures Wears glasses Home Medications alendronate 70 mg tablet 70 mg PO SA BONES 12/22/16 [History Last Taken 06/10/20] ipratropium 20 mcg-albuterol 100 mcg/actuation mist for inhalation (Combivent Respimat) 1 puff inhalation Q4H SOB 12/22/16 [History Last Taken Unknown] phenytoin sodium extended 100 mg capsule 100 mg PO BID@0900,1700 SEIZURES 12/22/16 [History Last Taken 12/03/22 04:30] aclidinium bromide 400 mcg/actuation breath activated powder inhaler 400 mcg IH BID SOB 06/12/20 [History Last Taken 06/12/20] ascorbic acid (vitamin C) 500 mg tablet 500 mg PO DAILY SUPPLEMENT 06/12/20 [History Last Taken 06/12/20] benzonatate 100 mg capsule 100 mg PO DAILY PRN Cough 06/12/20 [History Last Taken Unknown] cyclobenzaprine 10 mg tablet 10 mg PO BID PRN PRN BACK 06/12/20 [History Last Taken Unknown] diclofenac sodium 75 mg tablet,delayed release 75 mg PO BID PRN PRN BACK PAIN 06/12/20 [History Last Taken Unknown] fluticasone propionate 100 mcg/actuation blister powder for inhalation 2 puff inhalation BID COPD 06/12/20 [History Last Taken 06/12/20] folic acid 1 mg tablet 1 mg PO BID SUPPLEMENT 06/12/20 [History Last Taken 06/12/20] loratadine 10 mg tablet 10 mg PO DAILY ALLERGIES 06/12/20 [History Last Taken 12/03/22 04:30] paroxetine HCl 20 mg tablet 20 mg PO DAILY DEPRESSION 06/12/20 [History Last Taken 06/12/20] pravastatin 20 mg tablet 20 mg PO QHS CHOLESTEROL 06/12/20 [History Last Taken 06/11/20] cholecalciferol (vitamin D3) 25 mcg (1,000 unit) tablet 5,000 unit PO DAILY 06/15/20 [Rx Last Taken Unknown] lorazepam 0.5 mg tablet (Ativan) 0.5 mg PO BID PRN anxiety #10 tabs 07/08/22 [Rx Last Taken Unknown] omeprazole 40 mg capsule,delayed release 40 mg PO DAILY #30 caps 07/08/22 [Rx Last Taken 12/03/22 04:30] L.acidophil,salivari-Bifido bifidum-Strep thermoph 175 mg capsule (Acidophilus Probiotic Blend) 1 cap PO DAILY #30 caps 12/05/22 [Rx Last Taken Unknown] docusate sodium 100 mg capsule (Colace) 100 mg PO BID #60 caps 12/05/22 [Rx Last Taken Unknown] oxycodone-acetaminophen 5 mg-325 mg tablet (Percocet) 1 tab PO Q6H PRN pain (scale score 7-10) 7 days #28 tabs 12/05/22 [Rx Last Taken Unknown] promethazine 25 mg tablet 25 mg PO Q6H PRN nausea and vomiting #30 tabs 12/05/22 [Rx Last Taken Unknown] vancomycin 1 gram/200 mL in dextrose 5 % intravenous piggyback 1,000 mg IV Q12H 40 days #80 doses 12/05/22 [Rx Last Taken Unknown] Allergy/AdvReac Type Severity Reaction Status Date / Time Penicillins Allergy Severe Shortness Verified 12/21/22 11:23 of breath amoxicillin Allergy Hives Verified 12/21/22 11:23 aspirin AdvReac PT UNSURE Verified 12/21/22 11:23 OF REACTION Surgical History H/O repair of right rotator cuff H/O: hysterectomy History of cardiac catheterization History of cholecystectomy Social History Smoking Status: Current every day smoker tobacco type: cigarettes ROS <SIMRAN Khan - Last Filed: 12/21/22 12:40> ROS ED ROS Narrative Constitutional: Negative for fever, chills, weight loss, weakness Eyes: Negative for vision loss, vision change, double vision ENT: Negative for any sore throat, ear pain, congestion Cardiovascular: Negative for any chest pain, tightness. Positive for palpitations Respiratory: Negative for any cough, sputum production, hemoptysis, dyspnea, dyspnea on exertion, orthopnea Gastrointestinal: Negative for any abdominal pain, nausea, vomiting, diarrhea, constipation, blood in stool, blood in vomit : Negative for any urinary frequency, dysuria, retention, blood in urine Muscle skeletal: Negative for any muscle joint pain, stiffness, myalgias, arthralgias, neck pain, back pain Neurological: Negative for any headache, syncope, numbness or tingling, dizziness Skin: Negative for any rashes, lumps, itching, abrasions, lacerations Psychiatric: Negative for any depression, anxiety, stress, suicidal ideation, homicidal ideation Hematologic: Negative for any easy bruising, excessive bruising, easy bleeding Allergies: Negative for any eczema, hives, rash EXAM <SIMRAN Khan - Last Filed: 12/21/22 12:40> Physical Exam Narrative Exam Narrative: Vital signs reviewed. HEET: Head normocephalic atraumatic, TMs clear bilaterally. Posterior pharynx is clear, moist mucous membranes. Nares clear bilaterally. Neck: Supple with no lymphadenopathy or tenderness. No signs of meningismus, negative jolt sign. Cardiac: Regular rate and rhythm no murmurs gallops or rubs, equal peripheral pulses bilaterally. Respiratory: Lungs clear to auscultation bilaterally. No chest tenderness. Abdomen: Soft, nontender, nondistended. No abdominal bruit or pulsatile masses. No hepatosplenomegaly Extremities: No peripheral edema, no signs of gross trauma or deformity. Active full range of motion of all extremities. Patient's left lower extremity was wrapped, wound VAC applied. Neuro: Cranial nerves II through XII intact, no focal neurological deficits. Skin: Clean dry and intact with no rash, purpura, petechiae, vesicles or pustules. Backs/flank: No CVA tenderness, no midline spinal tenderness, no deformity. Psych: Normal mood and affect. No SI, HI or acute psychosis. Const Vital Signs: 12/21/22 11:19 12/21/22 11:29 12/21/22 13:03 Temperature 98.4 F Temperature Source Oral Pulse Rate 80 78 Respiratory Rate 14 18 Respiratory Effort Normal Blood Pressure 149/78 H 150/66 H Blood Pressure Mean 101 Pulse Ox 99 98 Oxygen Delivery Method Room Air <Dr. Loc Sanders MD - Last Filed: 12/21/22 14:12> Physical Exam Const Vital Signs: 12/21/22 11:19 12/21/22 11:29 12/21/22 13:03 Temperature 98.4 F Temperature Source Oral Pulse Rate 80 78 Respiratory Rate 14 18 Respiratory Effort Normal Blood Pressure 149/78 H 150/66 H Blood Pressure Mean 101 Pulse Ox 99 98 Oxygen Delivery Method Room Air MDM <SIMRAN Khan - Last Filed: 12/21/22 12:40> [facility] Lab Data Labs: Laboratory Results - last 24 hr 12/21/22 12/21/22 11:40 11:40 WBC 6.3 RBC 3.89 L Hgb 11.3 L Hct 35.9 L MCV 92.3 MCH 29.0 MCHC 31.5 L RDW Std Deviation 44.8 H RDW Coeff of Brittany 13.2 Plt Count 276 MPV 9.4 Immature Gran % (Auto) 0.600 Neut % (Auto) 66.8 Lymph % (Auto) 22.0 [place] % (Auto) 8.5 Eos % (Auto) 1.6 Baso % (Auto) 0.5 Absolute Neuts (auto) 4.2 Absolute Lymphs (auto) 1.39 Nucleated RBC % 0 Sodium 139 Potassium 3.9 Chloride 109 H Carbon Dioxide 29.0 Anion Gap 1 L BUN 10 Creatinine 0.44 L Estim Creat Clear Calc 101.08 Est GFR (MDRD) Af Amer 185 Est GFR (MDRD) Non-Af 153 BUN/Creatinine Ratio 22.6 H Glucose 81 Calcium 8.5 Radiography Diagnostic Testing: Clinical Impression(s) from Imaging Studies Chest X-Ray 12/21/22 11:45 IMPRESSION: No acute cardiopulmonary process identified. Satisfactory position of right PICC. Electronically Signed: Chantal Stanton MD at 12:23 EDT , EKG Normal sinus rhythm: Attestation: I personally reviewed and interpreted this EKG as follows: Comments: Normal sinus rhythm, rate of 76 bpm, no acute ST elevation, no acute infarct noted. Differential Diagnosis Chest pain/SOB: ACS, pneumonia and COPD Treatment and Re-Evaluation :: All radiologic examinations were read, reviewed by the emergency department attending. From these reads, a plan of care will be put in place. Patient appears generally well. Patient appears nontoxic. Patient presents the emergency department for intermittent fluttering of her left side of her chest while she was receiving IV therapy at home today. Patient denied any chest pain, shortness of breath, diaphoresis. Patient still examination was grossly unremarkable. Patient CBC was unremarkable, patient's chemistries were unremarkable. Potassium was 3.9. EKG showed normal sinus rhythm. At this time, there is no evidence suspect any ACS, UT. Patient is resting comfortably in the room and is currently asymptomatic. At this time, patient had a normal chest x-ray, no evidence of any pneumonia, pneumothorax, the patient's right PICC line is in place. Patient will be diagnosed with palpitations, she will follow-up closely. Patient is happy with the plan of care, she was given return precautions. All questions answered. Stable for discharge <Dr. Loc Sanders MD - Last Filed: 12/21/22 14:12> [facility] Narrative Medical decision making narrative: I have personally performed a face to face assessment of the patient and have reviewed the NIRU Note. I performed a substantive portion of the visit including all aspects of the following. My loyola findings include: History is remarkable fluttering in chest. She did report lightheadedness for 1 minute. She denied chest discomfort. She denied shortness of breath. She states is never happened before. She denies recent fever, chills night sweats. She denies recent upper respiratory symptoms. Exam is unremarked for any acute process. HEENT exam is remarkable and suggestive of thyroid eye disease. Patient denies intolerance to heat or cold. Patient denies weight gain or weight loss. Lungs reveal symmetric breath sounds. She has end inspiratory rales consistent consistent with COPD. Heart is regular. Rate is normal. There is no murmur, gallop or rub. Patient has a wound VAC left lower extremity due to nonhealing wound secondary to peripheral arterial disease. Medical Decision Making we will obtain EKG to assess for evidence of preexcitation syndrome. Patient placed on the monitor determine she has any dysrhythmia. Base metabolic panel to assess electrolytes and specifically potassium level. Other additions or changes: [None] Lab Data Attestation: I reviewed the patient's lab results. Lab results narrative: CBC reveals mild anemia. Indices are normal. Basic metabolic panel is unremarkable. Labs: Laboratory Results - last 24 hr 12/21/22 12/21/22 11:40 11:40 WBC 6.3 RBC 3.89 L Hgb 11.3 L Hct 35.9 L MCV 92.3 MCH 29.0 MCHC 31.5 L RDW Std Deviation 44.8 H RDW Coeff of Brittany 13.2 Plt Count 276 MPV 9.4 Immature Gran % (Auto) 0.600 Neut % (Auto) 66.8 Lymph % (Auto) 22.0 [place] % (Auto) 8.5 Eos % (Auto) 1.6 Baso % (Auto) 0.5 Absolute Neuts (auto) 4.2 Absolute Lymphs (auto) 1.39 Nucleated RBC % 0 Sodium 139 Potassium 3.9 Chloride 109 H Carbon Dioxide 29.0 Anion Gap 1 L BUN 10 Creatinine 0.44 L Estim Creat Clear Calc 101.08 Est GFR (MDRD) Af Amer 185 Est GFR (MDRD) Non-Af 153 BUN/Creatinine Ratio 22.6 H Glucose 81 Calcium 8.5 Radiography Chest X-Ray - ED: 1 View and Read by ED Physician (There are no acute process noted. There is chronic changes noted. Cardiac silhouette size unremarkable. Perihilar region unremarkable. Osseous structures are unremarkable. Patient does have a total shoulder prosthesis noted. This was independently reviewed and interpreted by me at 1156.) Diagnostic Testing: Clinical Impression(s) from Imaging Studies Chest X-Ray 12/21/22 11:45 IMPRESSION: No acute cardiopulmonary process identified. Satisfactory position of right PICC. Electronically Signed: Chantal Stanton MD at 12:23 EDT Reading Location ID and State: [address] [place] [address] Tel , Service support , Discharge Plan Triage Chief Complaint: Palpitations ED Midlevel Provider: Son Irby ED Provider: Loc Sanders Dx/Rx/DC Orders Clinical Impression: Heart palpitations, Chronic airway obstruction, Tobacco use disorder, History of diabetes mellitus, type II, Peripheral vascular disease Instructions: Understanding Heart Palpitations, ED Palpitations Prescriptions: No Action alendronate 70 MG tablet 70 mg PO SA phenytoin sodium extended 100 MG capsule 100 mg PO BID@0900,1700 Combivent Respimat 1 PUFF inhaler 1 puff inhalation Q4H cyclobenzaprine 10 MG tablet 10 mg PO BID PRN PRN (Reason: BACK) ascorbic acid (vitamin C) 500 MG tablet 500 mg PO DAILY benzonatate 100 MG capsule 100 mg PO DAILY PRN (Reason: Cough) paroxetine HCl 20 MG tablet 20 mg PO DAILY diclofenac sodium 75 MG tablet 75 mg PO BID PRN PRN (Reason: BACK PAIN) folic acid 1 MG tablet 1 mg PO BID pravastatin 20 MG tablet 20 mg PO QHS aclidinium bromide 400 MCG aerosol powdr breath activated 400 mcg IH BID fluticasone propionate 100 mcg/actuation blister with device 2 puff inhalation BID loratadine 10 MG tablet 10 mg PO DAILY cholecalciferol (vitamin D3) 1,000 UNIT tablet 5,000 unit PO DAILY 0RF omeprazole 40 mg capsule,delayed release(DR/EC) 40 mg PO DAILY Qty: 30 0RF lorazepam [Ativan] 0.5 mg tablet 0.5 mg PO BID PRN (Reason: anxiety) Qty: 10 0RF vancomycin in dextrose 5 % 1 gram/200 mL Piggyback 1,000 mg IV Q12H 40 Days Qty: 80 0RF Rx Instructions: stop date 01/14/23 dx: osteomyelitis weekly bmp, cbc, esr, and vanc trough. fax to [phone] oxycodone-acetaminophen [Percocet] 5-325 mg tablet 1 tab PO Q6H PRN (Reason: pain (scale score 7-10)) 7 Days Qty: 28 0RF Rx Instructions: 28 tabs (twenty-eight) Patient should not take her Tylenol while on Percocet. L.acidoph,saliva-B.bif-S.therm [Acidophilus Probiotic Blend] 175 mg capsule 1 cap PO DAILY Qty: 30 1RF promethazine 25 mg tablet 25 mg PO Q6H PRN (Reason: nausea and vomiting) Qty: 30 1RF docusate sodium [Colace] 100 mg capsule 100 mg PO BID Qty: 60 0RF Primary Care Provider: ASHA MAYORGA Referrals: [facility] Doctor,Out of [Non-Staff] - Activity Restrictions/Additional Instructions: Please follow-up outpatient. Continue antibiotic use. Disposition Disposition: Home, Self Care Discharge Date/Time: 12/21/22 13:05
--- NOTE | 2022-12-21 11:45 | RAD_ITS ---
HISTORY: palpitations. TECHNIQUE: XR Chest 1 View. COMPARISON: 07/07/2022. FINDINGS: CARDIOMEDIASTINAL BORDERS: Cardiac silhouette within normal limits in size. Mediastinal contour unremarkable with mild calcification of the aortic knob. Right PICC tip extends to the superior cavoatrial junction. LUNGS: Radiographically clear. PLEURA: No pleural effusion or pneumothorax seen. OSSEOUS STRUCTURES: Right shoulder arthroplasty again seen. Chronic bilateral rib fractures. Chronic left Hill-Sachs lesion. 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 RAD/Chest 1 View (Portable) IMPRESSION: No acute cardiopulmonary process identified. Satisfactory position of right PICC. Electronically Signed: Chantal Stanton MD at 12:23 EDT ,
[2022-12-21 11:51] LABS: Absolute Lymphocyte Count 1.39 X10^3/uL (0.83-4.51); Absolute Neutrophil Count 4.2 X10^3/uL (2.0-7.7); Basophil# 0.03 X10^3/uL; Basophil% 0.5 % (0-1); Eosinophils% 1.6 % (0-5); Hematocrit 35.9 % (37-47); Hemoglobin 11.3 g/dL (12.0-15.0); Lymphocyte # 1.39 X10^3/ul (0.83-4.51); Mean Corp Hgb Conc 31.5 g/dL (32-36); Mean Corpuscular Volume 92.3 fL (81-99); Mean Platelet Vol. 9.4 fl (6.2-12.0); Monocyte# 0.54 X10^3/uL; Monocyte% 8.5 % (0-10); NRBC Flagged by Analyzer 0 % (0-5); Neutrophil # 4.23 X10^3/uL (2.7-7.7); Neutrophil % 66.8 % (47-70); Platelet Count 276 K/mm3 (150-450); RBC Distribution Width CV 13.2 % (11.6-14.6); RBC Distribution Width SD 44.8 fl (35.1-43.9); Red Blood Count 3.89 M/mm3 (4.2-5.4); White Blood Count 6.3 K/mm3 (4.4-11.0)
[2022-12-21 12:17] LABS: Anion Gap 1 (5-15); BUN 10 mg/dL (7-18); BUN/Creat Ratio 22.6 RATIO (10-20); Calcium,Total 8.5 mg/dL (8.5-10.1); Chloride 109 mmol/L (98-107); Creatinine, Serum 0.44 mg/dL (0.55-1.02); EST Glomerular Filtration Rate 153 mL/min (>60); Est Glom Filt Rate - Afr Amer 185 mL/min (>60); Estimated Creatinine Clearance 101.08 ml/min; Glucose 81 mg/dL (74-106); Potassium 3.9 mmol/L (3.5-5.1); Sodium Level 139 mmol/L (136-145)
[2022-12-21 13:03] VITALS: BP 150/66; PULSE 78; RESP 18; O2SAT 98
== END 2022-12-21 13:05 | disposition home or self-care (01) ==
PROVIDERS: Nurse Practitioner; Emergency Provider Emergency Medicine; PCP Nurse Practitioner Family; Visit Provider Emergency Medicine
DX: R00.2 Palpitations (principal); E11.51 Type 2 diabetes mellitus with diabetic peripheral angiopathy without gangrene; J44.9 Chronic obstructive pulmonary disease, unspecified; F17.210 Nicotine dependence, cigarettes, uncomplicated; I10 Essential (primary) hypertension; I25.10 Atherosclerotic heart disease of native coronary artery without angina pectoris; I25.2 Old myocardial infarction; E78.00 Pure hypercholesterolemia, unspecified
CPT/HCPCS: 71045; 80048; 85025; 93005; 99282; A4216

== ENCOUNTER 2022-12-25 12:29 | Outpatient (RCR) | payer MEDICAID, SELFPAY ==
[2022-10-09 00:09] VITALS: BP 131/68; PULSE 77; RESP 18; TEMP 36.7
== END 2023-01-05 23:59 ==
LOC: NS 12:29
PROVIDERS: PCP Nurse Practitioner Family; Referring Provider Podiatrist; Visit Provider Podiatrist
DX: Z71.3 Dietary counseling and surveillance (principal); E46 Unspecified protein-calorie malnutrition; Z68.1 Body mass index [BMI] 19.9 or less, adult; M06.9 Rheumatoid arthritis, unspecified; T14.8XXD Other injury of unspecified body region, subsequent encounter; X58.XXXD Exposure to other specified factors, subsequent encounter
CPT/HCPCS: 97803

== ENCOUNTER 2022-12-25 13:00 | Outpatient (RCR) | payer MEDICAID, SELFPAY ==
[2022-12-07 02:09] VITALS: BP 122/49; PULSE 89; RESP 18; TEMP 36
[2022-12-11 09:37] VITALS: BP 161/72; PULSE 86; RESP 18; TEMP 36.1
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
[2022-12-25 13:33] VITALS: BP 159/56; PULSE 78; RESP 20; TEMP 36.2
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
== END 2023-01-05 23:59 | disposition home or self-care (01) ==
LOC: WC 13:00
PROVIDERS: Visit Provider Nurse Practitioner Family
DX: L97.926 Non-pressure chronic ulcer of unspecified part of left lower leg with bone involvement without evidence of necrosis (principal); E46 Unspecified protein-calorie malnutrition; M86.9 Osteomyelitis, unspecified; F17.200 Nicotine dependence, unspecified, uncomplicated; A49.02 Methicillin resistant Staphylococcus aureus infection, unspecified site; S81.802S Unspecified open wound, left lower leg, sequela; Z71.3 Dietary counseling and surveillance; Z68.1 Body mass index [BMI] 19.9 or less, adult; T14.8XXD Other injury of unspecified body region, subsequent encounter; X58.XXXD Exposure to other specified factors, subsequent encounter
CPT/HCPCS: 11043; 97605; 97803; 99213; G0463

== ENCOUNTER 2022-12-30 07:36 | Outpatient (RCR) | payer MEDICAID, SELFPAY ==
[2022-12-16 08:39] LABS: Erythrocyte Sedimentation Rate 17 mm/hr (0-30)
[2022-12-16 08:41] LABS: Hematocrit 35.9 % (37-47); Hemoglobin 11.4 g/dL (12.0-15.0); Mean Corp Hgb Conc 31.8 g/dL (32-36); Mean Corpuscular Hgb 29.5 pg (27.0-32.0); Mean Platelet Vol. 10.1 fl (6.2-12.0); Platelet Count 288 K/mm3 (150-450); RBC Distribution Width CV 13.2 % (11.6-14.6); RBC Distribution Width SD 44.6 fl (35.1-43.9); Red Blood Count 3.86 M/mm3 (4.2-5.4); White Blood Count 6.6 K/mm3 (4.4-11.0)
[2022-12-16 08:43] LABS: Anion Gap 2 (5-15); BUN 7 mg/dL (7-18); BUN/Creat Ratio 15.9 RATIO (10-20); Calcium,Total 8.3 mg/dL (8.5-10.1); Chloride 108 mmol/L (98-107); Creatinine, Serum 0.44 mg/dL (0.55-1.02); EST Glomerular Filtration Rate 154 mL/min (>60); Est Glom Filt Rate - Afr Amer 186 mL/min (>60); Glucose 128 mg/dL (74-106); Potassium 4.1 mmol/L (3.5-5.1); Sodium Level 140 mmol/L (136-145)
[2022-12-16 08:45] LABS: Vancomycin, Trough Level 12.2 ug/mL (5.0-15.0)
[2022-12-23 08:38] LABS: Hematocrit 35.6 % (37-47); Hemoglobin 11.8 g/dL (12.0-15.0); Mean Corp Hgb Conc 33.1 g/dL (32-36); Mean Corpuscular Hgb 29.8 pg (27.0-32.0); Mean Corpuscular Volume 89.9 fL (81-99); Mean Platelet Vol. 9.8 fl (6.2-12.0); Platelet Count 271 K/mm3 (150-450); RBC Distribution Width CV 12.9 % (11.6-14.6); RBC Distribution Width SD 42.3 fl (35.1-43.9); Red Blood Count 3.96 M/mm3 (4.2-5.4); White Blood Count 8.1 K/mm3 (4.4-11.0)
[2022-12-23 08:52] LABS: Erythrocyte Sedimentation Rate 18 mm/hr (0-30)
[2022-12-23 09:03] LABS: Anion Gap 4 (5-15); BUN 7 mg/dL (7-18); BUN/Creat Ratio 16.4 RATIO (10-20); Calcium,Total 8.4 mg/dL (8.5-10.1); Chloride 106 mmol/L (98-107); Creatinine, Serum 0.43 mg/dL (0.55-1.02); EST Glomerular Filtration Rate 159 mL/min (>60); Est Glom Filt Rate - Afr Amer 193 mL/min (>60); Glucose 101 mg/dL (74-106); Potassium 4.2 mmol/L (3.5-5.1); Sodium Level 140 mmol/L (136-145); Vancomycin, Trough Level 14.4 ug/mL (5.0-15.0)
[2022-12-30 07:48] LABS: Erythrocyte Sedimentation Rate 9 mm/hr (0-30)
[2022-12-30 07:50] LABS: Hematocrit 35.8 % (37-47); Hemoglobin 11.6 g/dL (12.0-15.0); Mean Corp Hgb Conc 32.4 g/dL (32-36); Mean Corpuscular Hgb 29.4 pg (27.0-32.0); Mean Corpuscular Volume 90.9 fL (81-99); Mean Platelet Vol. 10.2 fl (6.2-12.0); Platelet Count 251 K/mm3 (150-450); RBC Distribution Width CV 13.2 % (11.6-14.6); RBC Distribution Width SD 44.4 fl (35.1-43.9); Red Blood Count 3.94 M/mm3 (4.2-5.4); White Blood Count 8.9 K/mm3 (4.4-11.0)
[2022-12-30 08:11] LABS: Anion Gap 0 (5-15); BUN 14 mg/dL (7-18); BUN/Creat Ratio 24.3 RATIO (10-20); Calcium,Total 8.4 mg/dL (8.5-10.1); Chloride 107 mmol/L (98-107); Creatinine, Serum 0.58 mg/dL (0.55-1.02); EST Glomerular Filtration Rate 113 mL/min (>60); Est Glom Filt Rate - Afr Amer 137 mL/min (>60); Glucose 115 mg/dL (74-106); Potassium 4.2 mmol/L (3.5-5.1); Sodium Level 138 mmol/L (136-145)
[2022-12-30 08:13] LABS: Vancomycin, Trough Level 15.3 ug/mL (5.0-15.0)
== END 2023-01-05 23:59 ==
LOC: LABSPEC 07:36
PROVIDERS: Referring Provider Internal Medicine Infectious Disease; Visit Provider Internal Medicine Infectious Disease
DX: M86.9 Osteomyelitis, unspecified (principal)
CPT/HCPCS: 80048; 80202; 85027; 85652

== ENCOUNTER 2023-01-13 07:44 | Outpatient (RCR) | payer MEDICAID, SELFPAY ==
[2023-01-06 08:50] LABS: Erythrocyte Sedimentation Rate 6 mm/hr (0-30)
[2023-01-06 08:52] LABS: Hematocrit 38.5 % (37-47); Hemoglobin 12.6 g/dL (12.0-15.0); Mean Corp Hgb Conc 32.7 g/dL (32-36); Mean Corpuscular Hgb 29.5 pg (27.0-32.0); Mean Corpuscular Volume 90.2 fL (81-99); Platelet Count 222 K/mm3 (150-450); RBC Distribution Width CV 13.2 % (11.6-14.6); RBC Distribution Width SD 43.2 fl (35.1-43.9); Red Blood Count 4.27 M/mm3 (4.2-5.4); White Blood Count 5.9 K/mm3 (4.4-11.0)
[2023-01-06 08:54] LABS: Anion Gap 6 (5-15); BUN 9 mg/dL (7-18); BUN/Creat Ratio 18.7 RATIO (10-20); Calcium,Total 8.7 mg/dL (8.5-10.1); Chloride 108 mmol/L (98-107); Creatinine, Serum 0.48 mg/dL (0.55-1.02); EST Glomerular Filtration Rate 139 mL/min (>60); Est Glom Filt Rate - Afr Amer 168 mL/min (>60); Glucose 95 mg/dL (74-106); Potassium 3.5 mmol/L (3.5-5.1); Sodium Level 142 mmol/L (136-145)
[2023-01-06 08:55] LABS: Vancomycin, Trough Level 19.7 ug/mL (5.0-15.0)
[2023-01-13 08:00] LABS: Erythrocyte Sedimentation Rate 4 mm/hr (0-30)
[2023-01-13 08:02] LABS: Hematocrit 36.1 % (37-47); Hemoglobin 11.7 g/dL (12.0-15.0); Mean Corp Hgb Conc 32.4 g/dL (32-36); Mean Corpuscular Hgb 29.5 pg (27.0-32.0); Mean Corpuscular Volume 90.9 fL (81-99); Mean Platelet Vol. 10.8 fl (6.2-12.0); Platelet Count 224 K/mm3 (150-450); RBC Distribution Width CV 13.4 % (11.6-14.6); RBC Distribution Width SD 44.9 fl (35.1-43.9); Red Blood Count 3.97 M/mm3 (4.2-5.4); White Blood Count 7.5 K/mm3 (4.4-11.0)
[2023-01-13 08:21] LABS: Vancomycin, Trough Level 16.1 ug/mL (5.0-15.0)
[2023-01-13 08:24] LABS: Anion Gap 5 (5-15); BUN 12 mg/dL (7-18); BUN/Creat Ratio 23.1 RATIO (10-20); Calcium,Total 8.2 mg/dL (8.5-10.1); Chloride 108 mmol/L (98-107); Creatinine, Serum 0.52 mg/dL (0.55-1.02); EST Glomerular Filtration Rate 127 mL/min (>60); Est Glom Filt Rate - Afr Amer 154 mL/min (>60); Glucose 142 mg/dL (74-106); Potassium 3.7 mmol/L (3.5-5.1); Sodium Level 141 mmol/L (136-145)
== END 2023-02-05 23:59 ==
LOC: LABSPEC 07:44
PROVIDERS: Referring Provider Internal Medicine Infectious Disease; Visit Provider Internal Medicine Infectious Disease
DX: M86.9 Osteomyelitis, unspecified (principal)
CPT/HCPCS: 80048; 80202; 85027; 85652

== ENCOUNTER 2023-02-05 09:30 | Outpatient (RCR) | payer MEDICAID, SELFPAY ==
[2023-01-06 00:42] VITALS: BP 159/56; PULSE 78; RESP 20; TEMP 36.2
[2023-01-08 09:40] VITALS: BP 150/72; PULSE 82; RESP 20; TEMP 36.4
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
[2023-01-22 09:39] VITALS: BP 136/82; PULSE 89; TEMP 35.9
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
[2023-02-05 09:27] VITALS: BP 137/89; PULSE 86; RESP 18; TEMP 36.4
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
== END 2023-02-05 23:59 | disposition home or self-care (01) ==
LOC: WC 09:30
PROVIDERS: Visit Provider Nurse Practitioner Family
DX: L97.926 Non-pressure chronic ulcer of unspecified part of left lower leg with bone involvement without evidence of necrosis (principal); M86.9 Osteomyelitis, unspecified; F17.200 Nicotine dependence, unspecified, uncomplicated; A49.02 Methicillin resistant Staphylococcus aureus infection, unspecified site; G89.18 Other acute postprocedural pain; S81.802S Unspecified open wound, left lower leg, sequela
CPT/HCPCS: 11043

== ENCOUNTER 2023-03-06 15:00 | Outpatient (RCR) | payer MEDICAID, SELFPAY ==
[2023-02-06 00:34] VITALS: BP 137/89; PULSE 86; RESP 18; TEMP 36.4
[2023-02-19 09:28] VITALS: BP 106/78; PULSE 86; RESP 20; TEMP 36.6
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
[2023-03-06 14:55] VITALS: BP 137/47; PULSE 97; RESP 18; TEMP 36.4
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
--- NOTE | 2023-03-07 12:42 | WC ---
Patient called in asking if she can get anymore pain med's. Notified Milagros Ibarra ANIMAL ASSISTED THERAPIST regarding this matter and she said she is not able to give her anymore pain med's and had instructed patient last week that she is too far post-op to get more narcotics. Called patient back and left a message on her voicemail.
== END 2023-03-07 23:59 | disposition home or self-care (01) ==
LOC: WC 15:00
PROVIDERS: Visit Provider Nurse Practitioner Family
DX: L97.926 Non-pressure chronic ulcer of unspecified part of left lower leg with bone involvement without evidence of necrosis (principal); M86.9 Osteomyelitis, unspecified; F17.200 Nicotine dependence, unspecified, uncomplicated; G89.18 Other acute postprocedural pain; A49.02 Methicillin resistant Staphylococcus aureus infection, unspecified site; S81.802S Unspecified open wound, left lower leg, sequela
CPT/HCPCS: 11043

== ENCOUNTER 2023-04-02 10:00 | Outpatient (RCR) | payer MEDICAID, SELFPAY ==
[2023-03-08 01:20] VITALS: BP 137/47; PULSE 97; RESP 18; TEMP 36.4
[2023-03-19 09:27] VITALS: BP 124/65; PULSE 89; RESP 18; TEMP 36.4
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
[2023-04-02 09:56] VITALS: BP 129/55; PULSE 92; RESP 18; TEMP 36.2
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
== END 2023-04-07 23:59 | disposition home or self-care (01) ==
LOC: WC 10:00
PROVIDERS: Visit Provider Nurse Practitioner Family
DX: L97.926 Non-pressure chronic ulcer of unspecified part of left lower leg with bone involvement without evidence of necrosis (principal); M86.9 Osteomyelitis, unspecified; F17.200 Nicotine dependence, unspecified, uncomplicated; A49.02 Methicillin resistant Staphylococcus aureus infection, unspecified site; S81.802S Unspecified open wound, left lower leg, sequela
CPT/HCPCS: 11042; 11043

== ENCOUNTER 2023-04-07 12:44 | Emergency (ER) | payer MEDICAID, SELFPAY ==
[2023-04-07 12:46] VITALS: BP 115/66; PULSE 103; RESP 20; TEMP 37.2; O2SAT 97; BMI 20.9
--- NOTE | 2023-04-07 14:05 | EKG12_ITS ---
Test Reason : CP Blood Pressure : / mmHG Vent. Rate : 102 BPM Atrial Rate : 102 BPM P-R Int : 122 ms QRS Dur : 074 ms QT Int : 360 ms P-R-T Axes : 043 063 077 degrees QTc Int : 469 ms Sinus tachycardia Otherwise normal ECG Confirmed by GRZEGORZ WOOD, LEIDY ([id number]), web editor LIZETH REYES ([id number]) on 04/08/2023 11:02:24 AM Referred By: HERMAN/HOWARD Confirmed By:LEIDY LANTIGUA MD
[2023-04-07 14:37] VITALS: BP 117/67; PULSE 87; RESP 19; O2SAT 95
[2023-04-07 14:38] VITALS: O2SAT 95
--- NOTE | 2023-04-07 14:40 | RAD_ITS ---
STUDY: X-RAY CHEST REASON FOR EXAM: Female, 62 years old. Chest pain TECHNIQUE: Single AP portable view of the chest. COMPARISON: Comparison is made with prior study dated December 21, 2022. FINDINGS: EKG electrodes are seen. Hyperinflation. There is no demonstrated pleural abnormality. Normal size heart. Normal mediastinum and stephanie. Normal visualized pulmonary arteries. Normal visualized aortic arch and descending thoracic aorta. There are degenerative changes of the visualized thoracic spine. Stable healed bilateral rib fractures. Status post right shoulder replacement. Degenerative changes of the left shoulder. There is no demonstrated abnormality of the visualized soft tissue structures of the upper abdomen. RAD/Chest 1 View (Portable) IMPRESSION: Hyperinflation. No acute abnormality is seen. Electronically Signed: Diony Fonseca MD at 15:10 EDT ,
[2023-04-07 15:00] VITALS: RESP 18
--- NOTE | 2023-04-07 15:00 | ED.VIS.CHEST ---
HPI History of Present Illness Chief Complaint: Chest Pain Narrative Narrative: 62-year-old female presenting with left-sided chest pain which started earlier today. She denies diaphoresis, lightheadedness, new shortness of breath. She states he is always short of breath because she has COPD and she is a smoker. She continues to smoke every day. Denies any fevers but states he has been coughing a lot today. She states that she had a lot of difficulty with breathing during the summer so she is trying to stay indoors. Patient with diabetes, tobacco use, hyperlipidemia, anxiety. She did state that the only pill she did not take today was her anxiety pill which is Ativan. [facility] Medical History (Updated 12/29/22 @ 00:02 by Background [place]) Anemia Anxiety Depression DM type 2, goal HbA1c < 7% Emphysema, unspecified Epilepsy FH: bilateral hip replacements Gastric reflux High cholesterol Loss of hearing MRSA (methicillin resistant Staphylococcus aureus) infection Myocardial infarct Open wound Osteomyelitis Seizures Sequelae of open wound of left lower extremity Smoker Ulcer of left yoder limited to breakdown of skin Wears dentures Wears glasses Home Medications alendronate 70 mg tablet 70 mg PO SA BONES 12/22/16 [History Last Taken 06/10/20] ipratropium 20 mcg-albuterol 100 mcg/actuation mist for inhalation (Combivent Respimat) 1 puff inhalation Q4H SOB 12/22/16 [History Last Taken Unknown] phenytoin sodium extended 100 mg capsule 100 mg PO BID@0900,1700 SEIZURES 12/22/16 [History Last Taken 12/03/22 04:30] aclidinium bromide 400 mcg/actuation breath activated powder inhaler 400 mcg IH BID SOB 06/12/20 [History Last Taken 06/12/20] ascorbic acid (vitamin C) 500 mg tablet 500 mg PO DAILY SUPPLEMENT 06/12/20 [History Last Taken 06/12/20] benzonatate 100 mg capsule 100 mg PO DAILY PRN Cough 06/12/20 [History Last Taken Unknown] cyclobenzaprine 10 mg tablet 10 mg PO BID PRN PRN BACK 06/12/20 [History Last Taken Unknown] diclofenac sodium 75 mg tablet,delayed release 75 mg PO BID PRN PRN BACK PAIN 06/12/20 [History Last Taken Unknown] fluticasone propionate 100 mcg/actuation blister powder for inhalation 2 puff inhalation BID COPD 06/12/20 [History Last Taken 06/12/20] folic acid 1 mg tablet 1 mg PO BID SUPPLEMENT 06/12/20 [History Last Taken 06/12/20] loratadine 10 mg tablet 10 mg PO DAILY ALLERGIES 06/12/20 [History Last Taken 12/03/22 04:30] paroxetine HCl 20 mg tablet 20 mg PO DAILY DEPRESSION 06/12/20 [History Last Taken 06/12/20] pravastatin 20 mg tablet 20 mg PO QHS CHOLESTEROL 06/12/20 [History Last Taken 06/11/20] cholecalciferol (vitamin D3) 25 mcg (1,000 unit) tablet 5,000 unit PO DAILY 06/15/20 [Rx Last Taken Unknown] lorazepam 0.5 mg tablet (Ativan) 0.5 mg PO BID PRN anxiety #10 tabs 07/08/22 [Rx Last Taken Unknown] omeprazole 40 mg capsule,delayed release 40 mg PO DAILY #30 caps 07/08/22 [Rx Last Taken 12/03/22 04:30] L.acidophil,salivari-Bifido bifidum-Strep thermoph 175 mg capsule (Acidophilus Probiotic Blend) 1 cap PO DAILY #30 caps 12/05/22 [Rx Last Taken Unknown] docusate sodium 100 mg capsule (Colace) 100 mg PO BID #60 caps 12/05/22 [Rx Last Taken Unknown] promethazine 25 mg tablet 25 mg PO Q6H PRN nausea and vomiting #30 tabs 12/05/22 [Rx Last Taken Unknown] vancomycin 1 gram/200 mL in dextrose 5 % intravenous piggyback 1,000 mg IV Q12H 40 days #80 doses 12/05/22 [Rx Last Taken Unknown] oxycodone-acetaminophen 5 mg-325 mg tablet (Percocet) 1 tab PO BID PRN PRN pain (scale score 7-10) 7 days #14 tabs 01/10/23 [Rx Last Taken Unknown] oxycodone-acetaminophen 5 mg-325 mg tablet (Percocet) 1 tab PO DAILY PRN pain (scale score 7-10) 7 days #7 tabs 01/23/23 [Rx Last Taken Unknown] Allergy/AdvReac Type Severity Reaction Status Date / Time Penicillins Allergy Severe Shortness Verified 04/07/23 12:45 of breath amoxicillin Allergy Hives Verified 04/07/23 12:45 aspirin AdvReac it chokes Verified 04/07/23 12:45 me. Surgical History H/O repair of right rotator cuff H/O: hysterectomy History of cardiac catheterization History of cholecystectomy Social History Smoking Status: Current every day smoker tobacco type: cigarettes EXAM Physical Exam Const Vital Signs: 04/07/23 12:46 04/07/23 12:51 04/07/23 14:37 Temperature 99 F Temperature Source Oral Pulse Rate 103 H 87 Respiratory Rate 20 H 19 H Respiratory Effort Normal Non-Labored Blood Pressure 115/66 117/67 Blood Pressure Mean 82 83 Pulse Ox 97 95 Oxygen Delivery Method Room Air Room Air 04/07/23 14:38 Temperature Temperature Source Pulse Rate Respiratory Rate Respiratory Effort Blood Pressure Blood Pressure Mean Pulse Ox 95 Oxygen Delivery Method Room Air Positive well nourished General Appearance ED: NAD HEENT Reports TM's clear and moist mucous membranes atraumatic Tympanic Membrane ED: Yes TM's clear Eyes PERRL and EOMs intact bilaterally Chest Wall inspection of chest normal Resp normal respiratory effort and clear to auscultation bilaterally Auscultation: Negative for rales, rhonchi or wheezes Cardio regular rate and regular rhythm GI normal to inspection, nondistended, normoactive bowel sounds Neuro oriented x3 and CN's II-XII intact bilaterally Sensorium / Orientation: awake and alert Psych mental status grossly normal Skin no rashes or lesions noted and no wounds Heart Score History: Slightly/Non-Suspicious ECG: Normal Age: >45 - <65 years Risk Factors: >/= 3 Risk Factors or History of CAD Troponin: </= Normal Limit Score: 3 MDM MDM MDM Narrative Medical decision making narrative: Patient presenting with left-sided chest pain. She was given aspirin and nitroglycerin prior to arrival she states her pain is improving. Physical exam is normal. Lungs are clear to auscultation. Heart regular rate and rhythm. Differential includes ACS, CHF, COPD, dehydration, electrolyte abnormalities, pneumonia. Considered PE although the patient does not have any risk factors. In addition to this the pain got better with nitroglycerin. Could be acid reflux as well as anxiety. CBC will be obtained to assess for white blood cell count, hemoglobin, platelets we are BMP to assess renal function, electrolytes. High-sensitivity troponin and EKG to assess for ischemia and dysrhythmia. Chest x-ray to rule out pneumonia. CBC and BMP unremarkable. High-sensitivity opponent is 5. This x-ray on my interpretation shows no acute process. Radiologist services and agrees. EKG shows normal sinus rhythm with a rate of 102 bpm without sign of ischemic change or ectopy on my interpretation. Reevaluation the patient is doing well. Does not have return of her pain. We discussed possible other sources such as esophageal reflux, rib strain from coughing. I will give her Lidoderm patches and I recommend she keep her diet bland and take her PPI as prescribed. If she has further cardiac work-up. Impression: 1. Chest wall pain Lab Data Attestation: I reviewed the patient's lab results. Labs: Laboratory Results - last 24 hr 04/07/23 14:35 WBC 11.1 H RBC 3.89 L Hgb 11.3 L Hct 35.0 L MCV 90.0 MCH 29.0 MCHC 32.3 RDW Std Deviation 43.8 RDW Coeff of Brittany 13.3 Plt Count 243 MPV 10.6 Immature Gran % (Auto) 0.500 Neut % (Auto) 75.6 H Lymph % (Auto) 13.3 L Barry % (Auto) 10.2 H Eos % (Auto) 0.1 Baso % (Auto) 0.3 Absolute Neuts (auto) 8.4 H Absolute Lymphs (auto) 1.48 Nucleated RBC % 0 Sodium 138 Potassium 3.8 Chloride 106 Carbon Dioxide 30.0 Anion Gap 2 L BUN 10 Creatinine 0.43 L Estim Creat Clear Calc 101.08 Est GFR (MDRD) Af Amer 191 Est GFR (MDRD) Non-Af 158 BUN/Creatinine Ratio 23.2 H Glucose 95 Calcium 8.4 L Troponin I High Sens 5 Radiography Diagnostic Testing: Clinical Impression(s) from Imaging Studies Chest X-Ray 04/07/23 14:40 IMPRESSION: Hyperinflation. No acute abnormality is seen. Electronically Signed: Diony Fonseca MD at 15:10 EDT , Discharge Plan Triage Chief Complaint: Chest Pain ED Provider: Guillermo Griffin Dx/Rx/DC Orders Prescriptions: No Action alendronate 70 MG tablet 70 mg PO SA phenytoin sodium extended 100 MG capsule 100 mg PO BID@0900,1700 Combivent Respimat 1 PUFF inhaler 1 puff inhalation Q4H cyclobenzaprine 10 MG tablet 10 mg PO BID PRN PRN (Reason: BACK) ascorbic acid (vitamin C) 500 MG tablet 500 mg PO DAILY benzonatate 100 MG capsule 100 mg PO DAILY PRN (Reason: Cough) paroxetine HCl 20 MG tablet 20 mg PO DAILY diclofenac sodium 75 MG tablet 75 mg PO BID PRN PRN (Reason: BACK PAIN) folic acid 1 MG tablet 1 mg PO BID pravastatin 20 MG tablet 20 mg PO QHS aclidinium bromide 400 MCG aerosol powdr breath activated 400 mcg IH BID fluticasone propionate 100 mcg/actuation blister with device 2 puff inhalation BID loratadine 10 MG tablet 10 mg PO DAILY cholecalciferol (vitamin D3) 1,000 UNIT tablet 5,000 unit PO DAILY 0RF omeprazole 40 mg capsule,delayed release(DR/EC) 40 mg PO DAILY Qty: 30 0RF lorazepam [Ativan] 0.5 mg tablet 0.5 mg PO BID PRN (Reason: anxiety) Qty: 10 0RF vancomycin in dextrose 5 % 1 gram/200 mL Piggyback 1,000 mg IV Q12H 40 Days Qty: 80 0RF Rx Instructions: stop date 01/14/23 dx: osteomyelitis weekly bmp, cbc, esr, and vanc trough. fax to [phone] L.acidoph,saliva-B.bif-S.therm [Acidophilus Probiotic Blend] 175 mg capsule 1 cap PO DAILY Qty: 30 1RF promethazine 25 mg tablet 25 mg PO Q6H PRN (Reason: nausea and vomiting) Qty: 30 1RF docusate sodium [Colace] 100 mg capsule 100 mg PO BID Qty: 60 0RF oxycodone-acetaminophen [Percocet] 5-325 mg tablet 1 tab PO BID PRN PRN (Reason: pain (scale score 7-10)) 7 Days Qty: 14 0RF oxycodone-acetaminophen [Percocet] 5-325 mg tablet 1 tab PO DAILY PRN (Reason: pain (scale score 7-10)) 7 Days Qty: 7 0RF Primary Care Provider: ASHA MAYORGA Referrals: ASHA MAYORGA [Other]
[2023-04-07 15:03] LABS: Absolute Lymphocyte Count 1.48 X10^3/uL (0.83-4.51); Absolute Neutrophil Count 8.4 X10^3/uL (2.0-7.7); Basophil# 0.03 X10^3/uL; Basophil% 0.3 % (0-1); Eosinophil# 0.01 X10^3/uL; Eosinophils% 0.1 % (0-5); Hemoglobin 11.3 g/dL (12.0-15.0); Lymphocyte # 1.48 X10^3/ul (0.83-4.51); Lymphocyte % 13.3 % (19-41); Mean Corp Hgb Conc 32.3 g/dL (32-36); Mean Platelet Vol. 10.6 fl (6.2-12.0); Monocyte# 1.13 X10^3/uL; Monocyte% 10.2 % (0-10); NRBC Flagged by Analyzer 0 % (0-5); Neutrophil # 8.41 X10^3/uL (2.7-7.7); Neutrophil % 75.6 % (47-70); Platelet Count 243 K/mm3 (150-450); RBC Distribution Width CV 13.3 % (11.6-14.6); RBC Distribution Width SD 43.8 fl (35.1-43.9); Red Blood Count 3.89 M/mm3 (4.2-5.4); White Blood Count 11.1 K/mm3 (4.4-11.0)
[2023-04-07 15:15] LABS: Anion Gap 2 (5-15); BUN 10 mg/dL (7-18); BUN/Creat Ratio 23.2 RATIO (10-20); Calcium,Total 8.4 mg/dL (8.5-10.1); Chloride 106 mmol/L (98-107); Creatinine, Serum 0.43 mg/dL (0.55-1.02); EST Glomerular Filtration Rate 158 mL/min (>60); Est Glom Filt Rate - Afr Amer 191 mL/min (>60); Estimated Creatinine Clearance 101.08 ml/min; Glucose 95 mg/dL (74-106); Potassium 3.8 mmol/L (3.5-5.1); Sodium Level 138 mmol/L (136-145); Troponin-I HS 5 pg/mL (3.0-54.0)
[2023-04-07 16:00] VITALS: BP 121/84
[2023-04-07] MEDS: Lidocaine 5% Patch 1 PATCH TOPICAL (16:19)
== END 2023-04-07 16:23 | disposition home or self-care (01) ==
PROVIDERS: Emergency Provider Student in an Organized Health Care Education/Training Program; Visit Provider Student in an Organized Health Care Education/Training Program
DX: R07.89 Other chest pain (principal); J44.9 Chronic obstructive pulmonary disease, unspecified; E11.9 Type 2 diabetes mellitus without complications; F41.9 Anxiety disorder, unspecified; E78.5 Hyperlipidemia, unspecified; F17.210 Nicotine dependence, cigarettes, uncomplicated; Z79.51 Long term (current) use of inhaled steroids; Z79.899 Other long term (current) drug therapy; K21.9 Gastro-esophageal reflux disease without esophagitis; Z90.710 Acquired absence of both cervix and uterus; Z90.49 Acquired absence of other specified parts of digestive tract
CPT/HCPCS: 71045; 80048; 84484; 85025; 93005; 99285; A4216

== ENCOUNTER → 2023-04-10 | Outpatient (CLI) | payer MEDICAID, SELFPAY ==
--- NOTE | 2023-04-10 11:40 | BI_ITS ---
MAMMOGRAPHY - BILATERAL SCREENING REASON FOR EXAM: Female, 62 years old. Routine annual screening examination. PERTINENT HISTORY: Non-contributory. TECHNIQUE: Digital bilateral breast aakash (3D mammographic acquisition) in the CC and MLO projections. 2-D mediolateral oblique (MLO) and craniocaudad (CC) views of both breasts were obtained. CAD: Full Field Digital Mammography with Computer Added Detection was performed. COMPARISON: Comparison is made with prior study of May 10, 2011. FINDINGS: Breast Composition: The breasts are extremely dense, which lowers the sensitivity of mammography. There is a 5.8 mm x 4.7 mm well-defined nodule in the anterior upper slightly lateral aspect of the left breast. Correlation with ultrasound is recommended. No other significant abnormalities are identified. BI/SCRN MAMM (CAD)W/AAKASH BILAT IMPRESSION: 5.8 mm x 4.7 mm well-defined nodule in the anterior upper slightly lateral aspect of the left breast as described. Correlation with ultrasound is recommended. ASSESSMENT CATEGORY: BIRADS Category 0: Incomplete. Need additional imaging evaluation. A letter regarding these results will be sent to the patient by the facility within 30 days. Approximately 10% of breast cancers are not detected by mammography. A normal mammogram should not delay biopsy of a clinically suspicious abnormality. [id number] Electronically Signed: Diony Fonseca MD at 13:54 EDT ,
== END | disposition home or self-care (01) ==
LOC: OPBI 11:38
DX: Z12.31 Encounter for screening mammogram for malignant neoplasm of breast (principal); M86.9 Osteomyelitis, unspecified; J44.9 Chronic obstructive pulmonary disease, unspecified; G40.909 Epilepsy, unspecified, not intractable, without status epilepticus; F41.1 Generalized anxiety disorder; F17.200 Nicotine dependence, unspecified, uncomplicated
CPT/HCPCS: 77063; 77067

== ENCOUNTER → 2023-04-22 | Outpatient (CLI) | payer MEDICAID, SELFPAY ==
--- NOTE | 2023-04-22 07:46 | US_ITS ---
STUDY: ULTRASOUND BREAST - LEFT REASON FOR EXAM: Female, 62 years old. Abnormal screening mammogram. TECHNIQUE: Axial and longitudinal images of the LEFT breast were performed with a high resolution ultrasound transducer. # OF IMAGES: 17 COMPARISON: Comparison is made with prior mammogram dated April 10, 2023. FINDINGS: LEFT Breast: Mammographic abnormality corresponds to a 7 mm x 5 mm x 4 mm cyst at the 2:00 position of the breast at 1 cm from nipple. US/Breast Limited Unilateral IMPRESSION: The mammographic abnormality corresponds to a 7 mm x 5 mm x 4 mm cyst at the 2:00 position of the breast at 1 cm from the nipple. ASSESSMENT CATEGORY: BIRADS Category 2: Benign. A letter regarding these results will be sent to the patient by the facility within 30 days. Electronically Signed: Diony Fonseca MD at 10:47 EDT ,
== END | disposition home or self-care (01) ==
LOC: OPUS 07:42
DX: R92.8 Other abnormal and inconclusive findings on diagnostic imaging of breast (principal)
CPT/HCPCS: 76642

== ENCOUNTER 2023-04-30 09:30 | Outpatient (RCR) | payer MEDICAID, SELFPAY ==
[2023-04-08 00:36] VITALS: BP 129/55; PULSE 92; RESP 18; TEMP 36.2
[2023-04-16 11:01] VITALS: BP 135/73; PULSE 86; RESP 16
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
[2023-04-30 09:32] VITALS: BP 124/59; PULSE 87; RESP 20; TEMP 36.1
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
== END 2023-05-08 23:59 | disposition home or self-care (01) ==
LOC: WC 09:30
PROVIDERS: Referring Provider Nurse Practitioner Family; Visit Provider Nurse Practitioner Family
DX: L97.926 Non-pressure chronic ulcer of unspecified part of left lower leg with bone involvement without evidence of necrosis (principal); M86.9 Osteomyelitis, unspecified; F17.200 Nicotine dependence, unspecified, uncomplicated; A49.02 Methicillin resistant Staphylococcus aureus infection, unspecified site; S81.802S Unspecified open wound, left lower leg, sequela
CPT/HCPCS: 29445; 11043

== ENCOUNTER 2023-05-19 13:44 | Outpatient (RCR) | payer MEDICAID, SELFPAY ==
[2023-05-09 00:18] VITALS: BP 124/59; PULSE 87; RESP 20; TEMP 36.1
[2023-05-19 14:10] VITALS: BP 156/67; PULSE 92; RESP 18; TEMP 35.9
--- NOTE | 2023-05-19 15:26 | PCM.WC.PN ---
History of Present Illness Date of Service: 05/19/23 Chief Complaint: nonhealing ulcer left anterior leg. History of Wound: Surgery 12/03/22 - surgical preparation left anterior leg with incision and drainage and excisional debridement nonhealing infected MRSA ulcer and partial ostectomy tibia for osteomyelitis. Wound care - Silver dressings followed by Tubigrip. Operative Tissue and bone cultures positive for MRSA. Treated with IV Vancomycin. Infectious Diseases consulted. Pathology - pieces of bone with chronic inflammation and reactive changes, negative for acute osteomyelitis. Prealbumin from 12/04/22 was 14.5. Encouraged nutritional supplementation with protein to help with the healing process. HgbA1c from 07/19/22 was 5.7. HgbA1c needs to be less than 8 for elective surgeries. MRI left leg done on08/08/22 - Sinus tracts from the marrow of the mid to distal tibial diaphysis to the skin at the medial aspect. Marrow edema throughout the majority of the tibia. Findings concerning for osteomyelitis. Arterial study completed 11/04/22. Triphasic Doppler waveforms at ankle level bilaterally. Right MARI by dorsalis pedis = 1.15.? Left MARI by dorsalis pedis = 1.28. There is no evidence of significant arterial occlusive disease in the lower extremities bilaterally. Today she denies complaints of fever. Her appetite is ok. Progress of Wound: Has reached a plateau. Most of the bone is covered. Objective Data Objective Data Vital Signs: Vital Signs Temp Pulse Resp BP 96.7 F L 92 18 156/67 H 05/19/23 14:10 05/19/23 14:10 05/19/23 14:10 05/19/23 14:10 Prealbumin from 12/04/22 was 14.5. Encourage nutritional supplementation with protein to help the healing process. Lab / Micro Data Attestation: I reviewed the patient's lab results. Charges/Coding Procedures Integumentary [id number]: 22998 Miryam musc/fascia 20 sq cm/< (ICD-10 - L97.926, A49.02, M86.9, S81.802S, E11.9, F17.200) Debridement Note Debridement Note Wound debrided: #8 Left anterior leg. Laterality: Left Wound Grade/Stage: Stage IV Type of Debridement: Excisional debridement Anesthesia Used: 4% Lidocaine Solution Depth: Down to and including healthy tissue, in the subcutaneous layer, to muscle and to bone (bone exposed but not debrided.) Percentage of wound debrided: 100 Instrument Used: 3mm curette Tissue Removed: subcutaneous tissue and muscle. bone is exposed but not debrided. Severity: Fat Layer Exposed (muscle is exposed. bone is exposed but not debrided.) Amount of bleeding with debridement: Mild Bleeding Controlled with: Pressure and Compression and gauze Patient tolerated procedure: Patient tolerated procedure well Post-Debridement Measurements and Additional Note: Post-Debridement Measurements/Treatment YVETTE - Nurse 1 - General Ulcer Assessment Start: 05/19/23 14:10 Freq: Status: Active Protocol: ELENA Activity Type Activity Date Activity User E-sign Co-sign Detail Recorded Client Recorded Date Recorded By Document 05/19/23 14:10 MODE [id number] 05/19/23 14:13 MODE 05/19/23 14:10 YVETTE - Today's Visit Information Type of service Follow-up Visit (Physician/SHIRRER ) Arrival Mode Ambulatory Transfer Assistance None Patient Identification Verified (Name & Yes ) Patient Requires Transmission-Based No Precautions Vital Signs Temperature (97.8 F-99.1 F) 96.7 F L Temperature Source Temporal Pulse Rate (60-100) 92 Pulse Location Monitor Respiratory Rate (12-18) 18 Respiratory rate source Observation Blood Pressure (90/60-120/80) 156/67 H Blood Pressure Mean (mm Hg) 96 Source Monitor Position Semi-Fowlers Blood Pressure Location Left Arm History Since Last Visit- (Skip if this is Patient's initial visit) Have you changed medications since your No last visit? Any new allergies or adverse reactions No Had a fall/change in ADL's that may No increase risk of falls Signs or symptoms of abuse and/or No neglect since last visit Have you been in the hospital since your No last visit? Has dressing in place as prescribed Yes Has compression in place as prescribed Yes Has offloadiing in place as prescribed No Experienced any changes in pain level or No management Pain Scale: 0-10 Numeric Is Patient Pain Free? Yes YVETTE Cruz Nurse 1 - General Ulcer Measurement Start: 05/19/23 14:10 Freq: Status: Active Protocol: Activity Type Activity Date Activity User E-sign Co-sign Detail Recorded Client Recorded Date Recorded By Document 05/19/23 14:10 MODE [id number] 05/19/23 14:13 RB 05/19/23 14:10 Wound Center Nurse 1 #8 L Tenorio post-op -Combined with other wound No -Current Size (cm) - Length 2 -Current Size (cm) - Width 1.5 -Current Size (cm) - Depth 0.5 -Total Square Cm 3.0 -Photo Taken Yes -Tunneling No -Undermining/Tunneling No -Circular Undermining No -Exudate Amt Medium -Exudate Type Serosanguineous -Wound Margin Distinct, Outline Attached -Granulation Amt Medium (34-66%) -Granulation Quality [place] -Slough/Fibrin Yes -Necrosis Amt Medium (34-66%) -Necrotic Tissue Type Adherent Slough -Structure Exposed Bone -Texture (Mima-wound Skin Appearance) Assessed, Scarring -Moisture (Mima-wound Skin Appearance) Assessed -Color (Mima-wound Skin Appearance) Assessed -Temperature (Mima-wound Skin No Abnormality Appearance) (Pt Warm) -Tenderness on Palpation (Mima-wound No Skin Appearance) -Ulcer Cleansing Wound Cleanser -Foul Odor after Cleansing No -Anesthetic Used 5% Lidocaine Gel Lower Limb Edema Present Yes Left Calf (cm) 29.5 Left Ankle (cm) 22.5 WC - Nurse 2 - General Ulcer CM Notes Start: 05/19/23 14:10 Freq: Status: Active Protocol: Activity Type Activity Date Activity User E-sign Co-sign Detail Recorded Client Recorded Date Recorded By Document 05/19/23 14:17 TENZIN [id number] 05/19/23 14:23 05/19/23 14:17 Wound Center Nurse 2 #8 L Tenorio post-op -Time 14:17 -Correct Patient Yes -Correct Side, Site, Position Yes -Correct Procedure Yes -Procedure Performed Yes -Type of Procedure Debridement -Clinical Debridement Muscle / Fascia -Tissue Removed Muscle,Fascia, Tendon -Post Debridement (cm) - Length 2.0 -Post Debridement (cm) - Width 1.4 -Post Debridement (cm) - Depth 0.6 -Total Square (Post) (cm) 2.80 -Area of Debridement (cm) - Length 2.0 -Area of Debridement (cm) - Width 1.4 -Total Square (Area) (cm) 2.80 -Tunneling No -Undermining/Tunneling No -Circular Undermining No -Wound/Ulcer Outcome Not Healed -Ulcer Cleansing Rinsed/ Irrigated with Saline -Foul Odor after Cleansing No -Bioengineered Tissue No -Bleeding Controlled with Pressure -Treatment Response Procedure Tolerated Well -Offloading No -Debridement - Muscle / Fascia, 1st Yes 20sq cm Pain Scale: 0-10 Numeric Is Patient Pain Free? Yes - Nurse 3 - General Ulcer D/C NN Start: 05/19/23 14:10 Freq: Status: Active Protocol: Activity Type Activity Date Activity User E-sign Co-sign Detail Recorded Client Recorded Date Recorded By Document 05/19/23 14:36 RB [id number] 05/19/23 14:37 RB 05/19/23 14:36 Wound Care Center Nurse 3 #8 L Tenorio post-op -Ulcer Cleansing Wound Cleanser -Primary Dressing Applied Aquacel AG 4x4 -Primary Dressing Covered/Secured with Dry Gauze & Roll Gauze, Secured with Tape -Aquacel AG 4x4 1 Left -Tubular Bandage Double Layer -Size of Tubigrip Used Size D -Size D ($) 2 Treatment Response Procedure Tolerated Well Pain Scale: 0-10 Numeric Is Patient Pain Free? 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: CODE(S): L97.926 - Non-pressure chronic ulcer of unspecified part of left lower leg with bone involvement without evidence of necrosis (2) MRSA (methicillin resistant Staphylococcus aureus) infection: CODE(S): A49.02 - Methicillin resistant Staphylococcus aureus infection, unspecified site (3) Osteomyelitis: CODE(S): M86.9 - Osteomyelitis, unspecified (4) Sequelae of open wound of left lower extremity: CODE(S): S81.802S - Unspecified open wound, left lower leg, sequela (5) DM type 2, goal HbA1c < 7%: CODE(S): E11.9 - Type 2 diabetes mellitus without complications (6) Smoker: CODE(S): F17.200 - Nicotine dependence, unspecified, uncomplicated PLAN: Plan Wound care - Silver dressing changes followed by Tubigrip. Prealbumin from 3/29/23 was 14.5. Encouraged nutritional supplementation with protein to help the healing process. HgbA1c from 07/19/22 was 5.7. The HgbA1c needs to be less than 8 for elective surgeries. The ulcer has reached a plateau. There is a small area of exposed bone. It will not heal without complex flap reconstruction. HBO may be helpful both before and after surgery for chronic refractory osteomyelitis. She had MRSA in the ulcer at the time of surgery in November,. Will need another culture before her next surgery. Arterial study completed 11/04/22. Triphasic Doppler waveforms at ankle level bilaterally. Right MARI by dorsalis pedis = 1.15.? Left MARI by dorsalis pedis = 1.28. There is no evidence of significant arterial occlusive disease in the lower extremities bilaterally. Ideally the patient needs another microvascular free tissue transfer. Right now she would have to go to a tertiary center for that surgery. She would like to stay local if at all possible. May be able to do a local fasciocutaneous flap followed by skin graft of the donor area. I think the ulcer is just a tad too low for a soleus muscle flap. Will evaluate at the time of surgery. There may be issues with healing because of the scarring present. Anteriorly there is the muscle flap with skin graft. Could design the flap through the lateral edge of the muscle flap. Would base the fasciocutaneous flap of the medial perforators based on the tibial vessels. She is a smoker. Would proceed with a first stage delay which should help dilate the perforators to the skin that are constricted from the nicotine. The delay procedure can be done at the time of the operative debridement. At the time of that surgery, will recheck a Prealbumin and recheck a HgbA1c. Surgery would be done under general anesthesia with a surgical observation overnight stay in the hospital. Patient was informed of the risks and complications of the procedure including alternatives to surgery. These were discussed with the patient personally. Patient voices understanding and wishes to proceed. Potential risks and complications included but not inclusive of bleeding, infection, seroma, hematoma, bruising, swelling, prolonged need for drains, loss of sensation to skin, partial or complete loss of the flap and/or skin graft, wound breakdown, need for wound care, poor scarring, poor aesthetic outcome, intra operative cardiac or neurologic events, DVT, PE, and reaction to anesthesia. Encouraged patient to stop smoking as it may have deleterious effects on wound healing. She states she smokes one pack per day. 20 cigarettes. Each week she decreases her cigarette usage by one cigarette. By doing this slowly, there is a better chance that she can quit not only to improve healing at the time of surgery but hopefully quit permanently. Followup 3 weeks.
== END 2023-06-07 23:59 | disposition home or self-care (01) ==
LOC: WC 13:44
PROVIDERS: Referring Provider Nurse Practitioner Family; Visit Provider Surgery
DX: L97.926 Non-pressure chronic ulcer of unspecified part of left lower leg with bone involvement without evidence of necrosis (principal); M86.9 Osteomyelitis, unspecified; E66.01 Morbid (severe) obesity due to excess calories; Z68.42 Body mass index [BMI] 45.0-49.9, adult; E11.9 Type 2 diabetes mellitus without complications; A49.02 Methicillin resistant Staphylococcus aureus infection, unspecified site; S81.802S Unspecified open wound, left lower leg, sequela; F17.200 Nicotine dependence, unspecified, uncomplicated; Z71.3 Dietary counseling and surveillance
CPT/HCPCS: 11043

== ENCOUNTER 2023-06-30 09:30 | Outpatient (RCR) | payer MEDICAID, SELFPAY ==
[2023-06-08 00:37] VITALS: BP 156/67; PULSE 92; RESP 18; TEMP 35.9
[2023-06-09 09:20] VITALS: BP 123/70; PULSE 94; RESP 16; TEMP 36.4
--- NOTE | 2023-06-09 09:47 | PN.PCM_ITS ---
History of Present Illness Date of Service: 06/09/23 Chief Complaint: nonhealing ulcer left anterior leg. History of Wound: Surgery 12/03/22 - surgical preparation left anterior leg with incision and drainage and excisional debridement nonhealing infected MRSA ulcer and partial ostectomy tibia for osteomyelitis. Wound care - Silver dressings followed by Tubigrip. Operative Tissue and bone cultures positive for MRSA. Treated with IV Vancomycin. Infectious Diseases consulted. Pathology - pieces of bone with chronic inflammation and reactive changes, negative for acute osteomyelitis. Prealbumin from 12/04/22 was 14.5. Encouraged nutritional supplementation with protein to help with the healing process. HgbA1c from 07/19/22 was 5.7. HgbA1c needs to be less than 8 for elective surgeries. MRI left leg done on08/08/22 - Sinus tracts from the marrow of the mid to distal tibial diaphysis to the skin at the medial aspect. Marrow edema throughout the majority of the tibia. Findings concerning for osteomyelitis. Arterial study completed 11/04/22. Triphasic Doppler waveforms at ankle level bilaterally. Right MARI by dorsalis pedis = 1.15.? Left MARI by dorsalis pedis = 1.28. There is no evidence of significant arterial occlusive disease in the lower extremities bilaterally. Today she denies complaints of fever. Her appetite is ok. Progress of Wound: Has hypergranulation tissue present. Ulcer stable. Some bone still exposed. Objective Data Objective Data Vital Signs: Vital Signs Temp Pulse Resp BP 97.5 F L 94 16 123/70 H 06/09/23 09:20 06/09/23 09:20 06/09/23 09:20 06/09/23 09:20 Charges/Coding Procedures Integumentary 111xxx-113xx: [id number] Miryam musc/fascia 20 sq cm/< Debridement Note Debridement Note Wound debrided: #8 Left anterior leg. Laterality: Left Wound Grade/Stage: Stage IV Type of Debridement: Excisional debridement Anesthesia Used: 4% Lidocaine Solution Depth: Down to and including healthy tissue, in the subcutaneous layer, to muscle and to bone (bone exposed but not debrided.) Percentage of wound debrided: 100 Instrument Used: 3mm curette Tissue Removed: subcutaneous tissue and muscle. bone is exposed but not debrided. Severity: Fat Layer Exposed (muscle is exposed. bone is exposed but not debrided.) Amount of bleeding with debridement: Mild Bleeding Controlled with: Pressure and Compression and gauze Patient tolerated procedure: Patient tolerated procedure well Post-Debridement Measurements and Additional Note: Post-Debridement Measurements/Treatment - Nurse 1 - General Ulcer Assessment Start: 06/09/23 09:20 Freq: Status: Active Protocol: ELENA Activity Type Activity Date Activity User E-sign Co-sign Detail Recorded Client Recorded Date Recorded By Document 06/09/23 09:20 Laptop 06/09/23 09:21 06/09/23 09:20 - Today's Visit Information Type of service Follow-up Visit (Physician/PSYCHIATRIC ASSISTANT ) Arrival Mode Ambulatory Patient Identification Verified (Name & Yes ) Patient Requires Transmission-Based No Precautions Vital Signs Temperature (97.8 F-99.1 F) 97.5 F L Temperature Source Temporal Pulse Rate (60-100) 94 Pulse Location Monitor Respiratory Rate (12-18) 16 Respiratory rate source Observation Blood Pressure (90/60-120/80) 123/70 H Blood Pressure Mean (mm Hg) 87 Source Monitor Position Semi-Fowlers Blood Pressure Location Right Arm History Since Last Visit- (Skip if this is Patient's initial visit) Have you changed medications since your No last visit? Any new allergies or adverse reactions No Had a fall/change in ADL's that may No increase risk of falls Signs or symptoms of abuse and/or No neglect since last visit Have you been in the hospital since your No last visit? Has dressing in place as prescribed Yes Has compression in place as prescribed Yes Has offloadiing in place as prescribed N/A Experienced any changes in pain level or No management Left Footwear Regular Shoe Right Footwear Regular Shoe Pain Scale: 0-10 Numeric Is Patient Pain Free? Yes - Nurse 1 - General Ulcer Measurement Start: 06/09/23 09:20 Freq: Status: Active Protocol: Activity Type Activity Date Activity User E-sign Co-sign Detail Recorded Client Recorded Date Recorded By Document 06/09/23 09:20 Laptop 06/09/23 09:21 06/09/23 09:20 Wound Center Nurse 1 #8 L Tenorio post-op -Combined with other wound No -Current Size (cm) - Length 2.0 -Current Size (cm) - Width 1.3 -Current Size (cm) - Depth 0.5 -Total Square Cm 2.60 -Photo Taken No -Epithelialization None Present -Tunneling No -Undermining/Tunneling No -Circular Undermining No -Exudate Amt Medium -Exudate Type Serosanguineous -Wound Margin Flat & Intact -Granulation Amt None Present (0 %) -Slough/Fibrin Yes -Necrosis Amt Medium (34-66%) -Necrotic Tissue Type Adherent Slough -Structure Exposed Bone -Texture (Mima-wound Skin Appearance) Assessed, Localized Edema -Moisture (Mima-wound Skin Appearance) Assessed -Color (Mima-wound Skin Appearance) Assessed -Temperature (Mima-wound Skin No Abnormality Appearance) (Pt Warm) -Tenderness on Palpation (Mima-wound No Skin Appearance) -Ulcer Cleansing Rinsed/ Irrigated with Saline -Foul Odor after Cleansing No -Anesthetic Used 5% Lidocaine Gel Lower Limb Edema Present No WC - Nurse 2 - General Ulcer CM Notes Start: 06/09/23 09:20 Freq: Status: Active Protocol: Activity Type Activity Date Activity User E-sign Co-sign Detail Recorded Client Recorded Date Recorded By Document 06/09/23 09:29 Laptop 06/09/23 09:32 06/09/23 09:29 Wound Center Nurse 2 #8 L Tenorio post-op -Time 09:29 -Correct Patient Yes -Correct Side, Site, Position Yes -Correct Procedure Yes -Procedure Performed Yes -Type of Procedure Debridement -Clinical Debridement Muscle / Fascia -Tissue Removed Muscle,Fascia -Post Debridement (cm) - Length 2.0 -Post Debridement (cm) - Width 1.0 -Post Debridement (cm) - Depth 0.6 -Total Square (Post) (cm) 2.00 -Area of Debridement (cm) - Length 2.0 -Area of Debridement (cm) - Width 1.0 -Total Square (Area) (cm) 2.00 -Tunneling No -Undermining/Tunneling No -Circular Undermining No -Wound/Ulcer Outcome Not Healed -Ulcer Cleansing Rinsed/ Irrigated with Saline -Foul Odor after Cleansing No -Bioengineered Tissue No -Bleeding Controlled with Pressure -Treatment Response Procedure Tolerated Well -Offloading No -Debridement - Muscle / Fascia, 1st Yes 20sq cm Pain Scale: 0-10 Numeric Is Patient Pain Free? Yes WC - Nurse 3 - General Ulcer D/C NN Start: 06/09/23 09:20 Freq: Status: Active Protocol: Activity Type Activity Date Activity User E-sign Co-sign Detail Recorded Client Recorded Date Recorded By Document 06/09/23 09:42 PL Tablet 06/09/23 09:43 PL 06/09/23 09:42 Wound Care Center Nurse 3 #8 L Tenorio post-op -Ulcer Cleansing Rinsed/ Irrigated with Saline -Foul Odor after Cleansing No -Primary Dressing Applied Aquacel AG 2x2, Mepilex Border -Aquacel AG 2x2 1 -Mepilex Border 1 Left -Tubular Bandage Double Layer -Size of Tubigrip Used Size C -Size C ($) 6 Pain Scale: 0-10 Numeric Is Patient Pain Free? 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: CODE(S): L97.926 - Non-pressure chronic ulcer of unspecified part of left lower leg with bone involvement without evidence of necrosis (2) MRSA (methicillin resistant Staphylococcus aureus) infection: CODE(S): A49.02 - Methicillin resistant Staphylococcus aureus infection, unspecified site (3) Osteomyelitis: CODE(S): M86.9 - Osteomyelitis, unspecified (4) Sequelae of open wound of left lower extremity: CODE(S): S81.802S - Unspecified open wound, left lower leg, sequela (5) DM type 2, goal HbA1c < 7%: CODE(S): E11.9 - Type 2 diabetes mellitus without complications (6) Smoker: CODE(S): F17.200 - Nicotine dependence, unspecified, uncomplicated PLAN: Plan Wound care - Silver dressing changes followed by Tubigrip. Prealbumin from 12/04/22 was 14.5. Encouraged nutritional supplementation with protein to help the healing process. HgbA1c from 07/19/22 was 5.7. The HgbA1c needs to be less than 8 for elective surgeries. The ulcer has reached a plateau. There is a small area of exposed bone. It will not heal without complex flap reconstruction. HBO may be helpful both before and after surgery for chronic refractory osteomyelitis. She had MRSA in the ulcer at the time of surgery in November,. Will need another culture before her next surgery. Arterial study completed 11/04/22. Triphasic Doppler waveforms at ankle level bilaterally. Right MARI by dorsalis pedis = 1.15.? Left MARI by dorsalis pedis = 1.28. There is no evidence of significant arterial occlusive disease in the lower extremities bilaterally. Encouraged patient to stop smoking as it may have deleterious effects on wound healing. She states she smokes one pack per day. 20 cigarettes. Each week she decreases her cigarette usage by one cigarette. By doing this slowly, there is a better chance that she can quit not only to improve healing at the time of surgery but hopefully quit permanently. Discussed nicotine patches to stop smoking. Ideally she needs to stop smoking to give this ulcer and future surgeries the best possible chance of healing. Followup [address] Jones's previous note: Ideally the patient needs another microvascular free tissue transfer. Right now she would have to go to a tertiary center for that surgery. She would like to stay local if at all possible. May be able to do a local fasciocutaneous flap followed by skin graft of the donor area. I think the ulcer is just a tad too low for a soleus muscle flap. Will evaluate at the time of surgery. There may be issues with healing because of the scarring present. Anteriorly there is the muscle flap with skin graft. Could design the flap through the lateral edge of the muscle flap. Would base the fasciocutaneous flap of the medial perforators based on the tibial vessels. She is a smoker. Would proceed with a first stage delay which should help dilate the perforators to the skin that are constricted from the nicotine. The delay procedure can be done at the time of the operative debridement. At the time of that surgery, will recheck a Prealbumin and recheck a HgbA1c. Surgery would be done under general anesthesia with a surgical observation overnight stay in the hospital. Patient was informed of the risks and complications of the procedure including alternatives to surgery. These were discussed with the patient personally. Patient voices understanding and wishes to proceed. Potential risks and complications included but not inclusive of bleeding, infection, seroma, hematoma, bruising, swelling, prolonged need for drains, loss of sensation to skin, partial or complete loss of the flap and/or skin graft, wound breakdown, need for wound care, poor scarring, poor aesthetic outcome, intra operative cardiac or neurologic events, DVT, PE, and reaction to anesthesia. Encouraged patient to stop smoking as it may have deleterious effects on wound healing. She states she smokes one pack per day. 20 cigarettes. Each week she decreases her cigarette usage by one cigarette. By doing this slowly, there is a better chance that she can quit not only to improve healing at the time of surgery but hopefully quit permanently.
[2023-06-30 09:13] VITALS: BP 142/45; PULSE 78; RESP 16; TEMP 36.2
--- NOTE | 2023-06-30 11:16 | PN.PCM_ITS ---
History of Present Illness Date of Service: 06/30/23 Chief Complaint: nonhealing ulcer left anterior leg. History of Wound: Surgery 12/03/22 - surgical preparation left anterior leg with incision and drainage and excisional debridement nonhealing infected MRSA ulcer and partial ostectomy tibia for osteomyelitis. Wound care - Silver dressings followed by Tubigrip. Operative Tissue and bone cultures positive for MRSA. Treated with IV Vancomycin. Infectious Diseases consulted. Pathology - pieces of bone with chronic inflammation and reactive changes, negative for acute osteomyelitis. Prealbumin from 12/04/22 was 14.5. Encouraged nutritional supplementation with protein to help with the healing process. HgbA1c from 07/19/22 was 5.7. HgbA1c needs to be less than 8 for elective surgeries. MRI left leg done on08/08/22 - Sinus tracts from the marrow of the mid to distal tibial diaphysis to the skin at the medial aspect. Marrow edema throughout the majority of the tibia. Findings concerning for osteomyelitis. Arterial study completed 11/04/22. Triphasic Doppler waveforms at ankle level bilaterally. Right MARI by dorsalis pedis = 1.15.? Left MARI by dorsalis pedis = 1.28. There is no evidence of significant arterial occlusive disease in the lower extremities bilaterally. Today she denies complaints of fever. Her appetite is ok. Progress of Wound: Ulcer stable. Some bone still exposed. Objective Data Objective Data Vital Signs: Vital Signs Temp Pulse Resp BP O2 Del Method 97.1 F L 78 16 142/45 H Room Air 06/30/23 09:13 06/30/23 09:13 06/30/23 09:13 06/30/23 09:13 06/30/23 09:13 Oxygen Delivery Method Room Air Charges/Coding Procedures Integumentary [id number]: [id number] Miryam musc/fascia 20 sq cm/< Debridement Note Debridement Note Wound debrided: #8 Left anterior leg. Laterality: Left Wound Grade/Stage: Stage IV Type of Debridement: Excisional debridement Anesthesia Used: 4% Lidocaine Solution Depth: Down to and including healthy tissue, in the subcutaneous layer, to muscle and to bone (bone exposed but not debrided.) Percentage of wound debrided: 100 Instrument Used: 3mm curette Tissue Removed: subcutaneous tissue and muscle. bone is exposed but not debrided. Severity: Fat Layer Exposed (muscle is exposed. bone is exposed but not debrided.) Amount of bleeding with debridement: Mild Bleeding Controlled with: Pressure and Compression and gauze Patient tolerated procedure: Patient tolerated procedure well Post-Debridement Measurements and Additional Note: Post-Debridement Measurements/Treatment - Nurse 1 - General Ulcer Assessment Start: 06/09/23 09:20 Freq: Status: Active Protocol: ELENA Activity Type Activity Date Activity User E-sign Co-sign Detail Recorded Client Recorded Date Recorded By Document 06/09/23 09:20 JF Laptop 06/09/23 09:21 Document 06/30/23 09:13 BM Desktop 06/30/23 09:19 BMF 06/09/23 06/30/23 09:20 09:13 WC - Today's Visit Information Type of service Follow-up Visit Follow-up Visit (Physician/INVESTIGATION OFFICER (Physician/INVESTIGATION OFFICER ) ) Arrival Mode Ambulatory Ambulatory Transfer Assistance None Patient Identification Verified (Name & Yes Yes ) Patient Requires Transmission-Based No No Precautions Vital Signs Temperature (97.8 F-99.1 F) 97.5 F L 97.1 F L Temperature Source Temporal Temporal Pulse Rate (60-100) 94 78 Pulse Location Monitor Monitor Respiratory Rate (12-18) 16 16 Respiratory rate source Observation Observation Oxygen Delivery Method Room Air Blood Pressure (90/60-120/80) 123/70 H 142/45 H Blood Pressure Mean (mm Hg) 87 77 Source Monitor Monitor Position Semi-Fowlers Sitting Blood Pressure Location Right Arm Left Arm History Since Last Visit- (Skip if this is Patient's initial visit) Have you changed medications since your No No last visit? Any new allergies or adverse reactions No No Had a fall/change in ADL's that may No No increase risk of falls Signs or symptoms of abuse and/or No No neglect since last visit Have you been in the hospital since your No No last visit? Has dressing in place as prescribed Yes Yes Has compression in place as prescribed Yes Yes Has offloadiing in place as prescribed N/A N/A Experienced any changes in pain level or No No management Left Footwear Regular Shoe Regular Shoe Right Footwear Regular Shoe Regular Shoe Pain Scale: 0-10 Numeric Is Patient Pain Free? Yes Yes YVETTE Cruz Nurse 1 - General Ulcer Measurement Start: 06/09/23 09:20 Freq: Status: Active Protocol: Activity Type Activity Date Activity User E-sign Co-sign Detail Recorded Client Recorded Date Recorded By Document 06/09/23 09:20 Laptop 06/09/23 09:21 Document 06/30/23 09:13 [facility] Desktop 06/30/23 09:19 [facility] 06/09/23 06/30/23 09:20 09:13 Wound Center Nurse 1 #8 L Tenorio post-op -Combined with other wound No No -Current Size (cm) - Length 2.0 2.2 -Current Size (cm) - Width 1.3 1 -Current Size (cm) - Depth 0.5 0.5 -Total Square Cm 2.60 2.2 -Date of Last Picture (Recall this 06/30/23 field) -Photo Taken No Yes -Epithelialization None Present None Present -Tunneling No No -Undermining/Tunneling No No -Circular Undermining No No -Exudate Amt Medium Medium -Exudate Type Serosanguineous Serosanguineous -Wound Margin Flat & Intact Distinct, Outline Attached -Granulation Amt None Present (0 Small (1-33%) %) -Granulation Quality Red -Slough/Fibrin Yes Yes -Necrosis Amt Medium (34-66%) Large (67-100%) -Necrotic Tissue Type Adherent Slough Adherent Slough -Structure Exposed Bone -Texture (Mima-wound Skin Appearance) Assessed, Assessed Localized Edema -Moisture (Mima-wound Skin Appearance) Assessed Assessed -Color (Mima-wound Skin Appearance) Assessed Assessed -Temperature (Mima-wound Skin No Abnormality No Abnormality Appearance) (Pt Warm) (Pt Warm) -Tenderness on Palpation (Mima-wound No No Skin Appearance) -Ulcer Cleansing Rinsed/ Rinsed/ Irrigated with Irrigated with Saline Saline -Foul Odor after Cleansing No No -Anesthetic Used 5% Lidocaine 5% Lidocaine Gel Gel Lower Limb Edema Present No Yes Left Calf (cm) 28.2 Left Ankle (cm) 19 WC - Nurse 2 - General Ulcer CM Notes Start: 06/09/23 09:20 Freq: Status: Active Protocol: Activity Type Activity Date Activity User E-sign Co-sign Detail Recorded Client Recorded Date Recorded By Document 06/09/23 09:29 Laptop 06/09/23 09:32 Document 06/30/23 09:56 Desktop 06/30/23 09:57 06/09/23 06/30/23 09:29 09:56 Wound Center Nurse 2 #8 L Tenorio post-op -Time 09: 09:56 -Correct Patient Yes Yes -Correct Side, Site, Position Yes Yes -Correct Procedure Yes Yes -Procedure Performed Yes Yes -Type of Procedure Debridement Debridement -Clinical Debridement Muscle / Fascia Muscle / Fascia -Tissue Removed Muscle,Fascia Muscle,Fascia -Post Debridement (cm) - Length 2.0 2.0 -Post Debridement (cm) - Width 1.0 1.3 -Post Debridement (cm) - Depth 0.6 0.6 -Total Square (Post) (cm) 2.00 2.60 -Area of Debridement (cm) - Length 2.0 2.0 -Area of Debridement (cm) - Width 1.0 1.3 -Total Square (Area) (cm) 2.00 2.60 -Tunneling No No -Undermining/Tunneling No No -Circular Undermining No No -Wound/Ulcer Outcome Not Healed Not Healed -Ulcer Cleansing Rinsed/ Rinsed/ Irrigated with Irrigated with Saline Saline -Foul Odor after Cleansing No No -Bioengineered Tissue No No -Bleeding Controlled with Pressure Pressure -Treatment Response Procedure Procedure Tolerated Well Tolerated Well -Offloading No No -Debridement - Muscle / Fascia, 1st Yes Yes 20sq cm Pain Scale: 0-10 Numeric Is Patient Pain Free? Yes Yes WC - Nurse 3 - General Ulcer D/C NN Start: 06/09/23 09:20 Freq: Status: Active Protocol: Activity Type Activity Date Activity User E-sign Co-sign Detail Recorded Client Recorded Date Recorded By Document 06/09/23 09:42 PL Tablet 06/09/23 09:43 PL Document 06/30/23 10:14 DL Desktop 06/30/23 10:17 DL 06/09/23 06/30/23 09:42 10:14 Wound Care Center Nurse 3 #8 L Tenorio post-op -Ulcer Cleansing Rinsed/ Wound Cleanser Irrigated with Saline -Foul Odor after Cleansing No No -Primary Dressing Applied Aquacel AG 2x2, Aquacel AG 2x2, Mepilex Border Mepilex Border -Aquacel AG 2x2 1 1 -Mepilex Border 1 1 Left -Tubular Bandage Double Layer Double Layer -Size of Tubigrip Used Size C Size C -Size C ($) 6 2 Treatment Response Procedure Tolerated Well Pain Scale: 0-10 Numeric Is Patient Pain Free? 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: CODE(S): L97.926 - Non-pressure chronic ulcer of unspecified part of left lower leg with bone involvement without evidence of necrosis (2) MRSA (methicillin resistant Staphylococcus aureus) infection: CODE(S): A49.02 - Methicillin resistant Staphylococcus aureus infection, unspecified site (3) Osteomyelitis: CODE(S): M86.9 - Osteomyelitis, unspecified (4) Sequelae of open wound of left lower extremity: CODE(S): S81.802S - Unspecified open wound, left lower leg, sequela (5) DM type 2, goal HbA1c < 7%: CODE(S): E11.9 - Type 2 diabetes mellitus without complications (6) Smoker: CODE(S): F17.200 - Nicotine dependence, unspecified, uncomplicated PLAN: Plan Wound care - Aquacel-Ag dressing covered with Mepilex daily. Compression - Tubigrip. Prealbumin from 12/04/22 was 14.5. Encouraged nutritional supplementation with protein to help the healing process. HgbA1c from 07/19/22 was 5.7. The HgbA1c needs to be less than 8 for elective surgeries. The ulcer has reached a plateau. There is a small area of exposed bone. It will not heal without complex flap reconstruction. HBO may be helpful both before and after surgery for chronic refractory osteomyelitis. She had MRSA in the ulcer at the time of surgery in November,. Will need another culture before her next surgery. Arterial study completed 11/04/22. Triphasic Doppler waveforms at ankle level bilaterally. Right MARI by dorsalis pedis = 1.15.? Left MARI by dorsalis pedis = 1.28. There is no evidence of significant arterial occlusive disease in the lower extremities bilaterally. Encouraged patient to stop smoking as it may have deleterious effects on wound healing. She states she smokes one pack per day. 20 cigarettes. Each week she decreases her cigarette usage by one cigarette. By doing this slowly, there is a better chance that she can quit not only to improve healing at the time of surgery but hopefully quit permanently. Discussed nicotine patches to stop smoking. Ideally she needs to stop smoking to give this ulcer and future surge milton the best possible chance of healing. Followup [address] Jones's previous note: Ideally the patient needs another microvascular free tissue transfer. Right now she would have to go to a tertiary center for that surgery. She would like to stay local if at all possible. May be able to do a local fasciocutaneous flap followed by skin graft of the donor area. I think the ulcer is just a tad too low for a soleus muscle flap. Will evaluate at the time of surgery. There may be issues with healing because of the scarring present. Anteriorly there is the muscle flap with skin graft. Could design the flap through the lateral edge of the muscle flap. Would base the fasciocutaneous flap of the medial perforators based on the tibial vessels. She is a smoker. Would proceed with a first stage delay which should help dilate the perforators to the skin that are constricted from the nicotine. The delay procedure can be done at the time of the operative debridement. At the time of that surgery, will recheck a Prealbumin and recheck a HgbA1c. Surgery would be done under general anesthesia with a surgical observation overnight stay in the hospital. Patient was informed of the risks and complications of the procedure including alternatives to surgery. These were discussed with the patient personally. Patient voices understanding and wishes to proceed. Potential risks and complications included but not inclusive of bleeding, infection, seroma, hematoma, bruising, swelling, prolonged need for drains, loss of sensation to skin, partial or complete loss of the flap and/or skin graft, wound breakdown, need for wound care, poor scarring, poor aesthetic outcome, intra operative cardiac or neurologic events, DVT, PE, and reaction to anesthesia. Encouraged patient to stop smoking as it may have deleterious effects on wound healing. She states she smokes one pack per day. 20 cigarettes. Each week she decreases her cigarette usage by one cigarette. By doing this slowly, there is a better chance that she can quit not only to improve healing at the time of surgery but hopefully quit permanently.
== END 2023-07-08 23:59 | disposition home or self-care (01) ==
LOC: WC 09:30
PROVIDERS: Referring Provider Nurse Practitioner Family; Visit Provider Nurse Practitioner Family
DX: L97.926 Non-pressure chronic ulcer of unspecified part of left lower leg with bone involvement without evidence of necrosis (principal); M86.9 Osteomyelitis, unspecified; E11.9 Type 2 diabetes mellitus without complications; A49.02 Methicillin resistant Staphylococcus aureus infection, unspecified site; S81.802S Unspecified open wound, left lower leg, sequela; F17.200 Nicotine dependence, unspecified, uncomplicated
CPT/HCPCS: 11043

== ENCOUNTER 2023-07-28 09:13 | Outpatient (RCR) | payer MEDICAID, SELFPAY ==
[2023-07-09 00:20] VITALS: BP 142/45; PULSE 78; RESP 16; TEMP 36.2
[2023-07-28 09:18] VITALS: BP 126/79; PULSE 92; RESP 18; TEMP 36.2
--- NOTE | 2023-07-28 10:59 | PCM.WC.PN ---
History of Present Illness Date of Service: 07/28/23 Chief Complaint: nonhealing ulcer left anterior leg. History of Wound: Surgery 12/03/22 - surgical preparation left anterior leg with incision and drainage and excisional debridement nonhealing infected MRSA ulcer and partial ostectomy tibia for osteomyelitis. Wound care - Silver dressings followed by Tubigrip. Operative Tissue and bone cultures positive for MRSA. Treated with IV Vancomycin. Infectious Diseases consulted. Pathology - pieces of bone with chronic inflammation and reactive changes, negative for acute osteomyelitis. Prealbumin from 12/04/22 was 14.5. Encouraged nutritional supplementation with protein to help with the healing process. HgbA1c from 07/19/22 was 5.7. HgbA1c needs to be less than 8 for elective surgeries. MRI left leg done on08/08/22 - Sinus tracts from the marrow of the mid to distal tibial diaphysis to the skin at the medial aspect. Marrow edema throughout the majority of the tibia. Findings concerning for osteomyelitis. Arterial study completed 11/04/22. Triphasic Doppler waveforms at ankle level bilaterally. Right MARI by dorsalis pedis = 1.15.? Left MARI by dorsalis pedis = 1.28. There is no evidence of significant arterial occlusive disease in the lower extremities bilaterally. Today she denies complaints of fever. Her appetite is ok. Progress of Wound: Ulcer stable. Some bone still exposed. Objective Data Objective Data Vital Signs: Vital Signs Temp Pulse Resp BP 97.2 F L 92 18 126/79 H 07/28/23 09:18 07/28/23 09:18 07/28/23 09:18 07/28/23 09:18 Charges/Coding Procedures Integumentary [id number]: [id number] Miryam musc/fascia 20 sq cm/< Debridement Note Debridement Note Wound debrided: #8 Left anterior leg. Laterality: Left Wound Grade/Stage: Stage IV Type of Debridement: Excisional debridement Anesthesia Used: 4% Lidocaine Solution Depth: Down to and including healthy tissue, in the subcutaneous layer, to muscle and to bone (bone exposed but not debrided.) Percentage of wound debrided: 100 Instrument Used: 3mm curette Tissue Removed: subcutaneous tissue into the muscle. bone is exposed but not debrided. Severity: Fat Layer Exposed (muscle is exposed. bone is exposed but not debrided.) Amount of bleeding with debridement: Mild Bleeding Controlled with: Pressure and Compression and gauze Patient tolerated procedure: Patient tolerated procedure well Post-Debridement Measurements and Additional Note: Post-Debridement Measurements/Treatment YVETTE - Nurse 1 - General Ulcer Assessment Start: 07/28/23 09:18 Freq: Status: Active Protocol: ELENA Activity Type Activity Date Activity User E-sign Co-sign Detail Recorded Client Recorded Date Recorded By Document 07/28/23 09:18 DL Desktop 07/28/23 09:23 DL 07/28/23 09:18 WC - Today's Visit Information Type of service Follow-up Visit (Physician/PROPERTY CONSULTANT ) Arrival Mode Ambulatory Transfer Assistance None Patient Identification Verified (Name & Yes ) Patient Requires Transmission-Based No Precautions Vital Signs Temperature (97.8 F-99.1 F) 97.2 F L Temperature Source Temporal Pulse Rate (60-100) 92 Pulse Location Monitor Respiratory Rate (12-18) 18 Respiratory rate source Observation Blood Pressure (90/60-120/80) 126/79 H Blood Pressure Mean (mm Hg) 94 Source Monitor History Since Last Visit- (Skip if this is Patient's initial visit) Have you changed medications since your No last visit? Any new allergies or adverse reactions No Had a fall/change in ADL's that may No increase risk of falls Signs or symptoms of abuse and/or No neglect since last visit Have you been in the hospital since your No last visit? Has dressing in place as prescribed Yes Has compression in place as prescribed Yes Has offloadiing in place as prescribed N/A Experienced any changes in pain level or No management Pain Scale: 0-10 Numeric Is Patient Pain Free? Yes YVETTE - Nurse 1 - General Ulcer Measurement Start: 07/28/23 09:18 Freq: Status: Active Protocol: Activity Type Activity Date Activity User E-sign Co-sign Detail Recorded Client Recorded Date Recorded By Document 07/28/23 09:18 DL Desktop 07/28/23 09:23 DL 07/28/23 09:18 Wound Center Nurse 1 #8 L Tenorio post-op -Current Size (cm) - Length 2 -Current Size (cm) - Width 0.9 -Current Size (cm) - Depth 0.1 -Total Square Cm 1.8 -Exudate Amt Medium -Exudate Type Yellow/Green -Wound Margin Distinct, Outline Attached -Granulation Amt Small (1-33%) -Granulation Quality Blanche -Necrosis Amt Large (67-100%) -Necrotic Tissue Type Adherent Slough -Structure Exposed N/A -Texture (Mima-wound Skin Appearance) Scarring -Moisture (Mima-wound Skin Appearance) Dry/Scaly -Color (Mima-wound Skin Appearance) Hemosiderin Staining -Temperature (Mima-wound Skin No Abnormality Appearance) (Pt Warm) -Tenderness on Palpation (Mima-wound No Skin Appearance) -Ulcer Cleansing Soap and Water -Foul Odor after Cleansing No -Anesthetic Used 5% Lidocaine Gel Left Calf (cm) 28 Left Ankle (cm) 18.5 WC - Nurse 2 - General Ulcer CM Notes Start: 07/28/23 09:18 Freq: Status: Active Protocol: Activity Type Activity Date Activity User E-sign Co-sign Detail Recorded Client Recorded Date Recorded By Document 07/28/23 09:45 Laptop 07/28/23 09:47 07/28/23 09:45 Wound Center Nurse 2 #8 L Tenorio post-op -Time 09:45 -Correct Patient Yes -Correct Side, Site, Position Yes -Correct Procedure Yes -Procedure Performed Yes -Type of Procedure Debridement -Clinical Debridement Muscle / Fascia -Tissue Removed Muscle,Fascia -Post Debridement (cm) - Length 2.0 -Post Debridement (cm) - Width 1.8 -Post Debridement (cm) - Depth 0.3 -Total Square (Post) (cm) 3.60 -Area of Debridement (cm) - Length 2.0 -Area of Debridement (cm) - Width 1.8 -Total Square (Area) (cm) 3.60 -Tunneling No -Undermining/Tunneling No -Circular Undermining No -Wound/Ulcer Outcome Not Healed -Ulcer Cleansing Rinsed/ Irrigated with Saline -Foul Odor after Cleansing No -Bioengineered Tissue No -Bleeding Controlled with Pressure -Treatment Response Procedure Tolerated Well -Offloading No -Debridement - Muscle / Fascia, 1st Yes 20sq cm Pain Scale: 0-10 Numeric Is Patient Pain Free? 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: CODE(S): L97.926 - Non-pressure chronic ulcer of unspecified part of left lower leg with bone involvement without evidence of necrosis (2) MRSA (methicillin resistant Staphylococcus aureus) infection: CODE(S): A49.02 - Methicillin resistant Staphylococcus aureus infection, unspecified site (3) Osteomyelitis: CODE(S): M86.9 - Osteomyelitis, unspecified (4) Sequelae of open wound of left lower extremity: CODE(S): S81.802S - Unspecified open wound, left lower leg, sequela (5) DM type 2, goal HbA1c < 7%: CODE(S): E11.9 - Type 2 diabetes mellitus without complications (6) Smoker: CODE(S): F17.200 - Nicotine dependence, unspecified, uncomplicated PLAN: Plan Wound care - Aquacel-Ag dressing covered with Mepilex daily. Compression - Tubigrip. Prealbumin from 12/04/22 was 14.5. Encouraged nutritional supplementation with protein to help the healing process. HgbA1c from 07/19/22 was 5.7. The HgbA1c needs to be less than 8 for elective surgeries. The ulcer has reached a plateau. There is a small area of exposed bone. It will not heal without complex flap reconstruction. HBO may be helpful both before and after surgery for chronic refractory osteomyelitis. She had MRSA in the ulcer at the time of surgery in November,. Will need another culture before her next surgery. Arterial study completed 11/04/22. Triphasic Doppler waveforms at ankle level bilaterally. Right MARI by dorsalis pedis = 1.15.? Left MARI by dorsalis pedis = 1.28. There is no evidence of significant arterial occlusive disease in the lower extremities bilaterally. Encouraged patient to stop smoking as it may have deleterious effects on wound healing. She states she smokes one pack per day. 20 cigarettes. Each week she decreases her cigarette usage by one cigarette. By doing this slowly, there is a better chance that she can quit not only to improve healing at the time of surgery but hopefully quit permanently. Discussed nicotine patches to stop smoking. Ideally she needs to stop smoking to give this ulcer and future surgeries the best possible chance of healing. Followup [address] Jones's previous note: Ideally the patient needs another microvascular free tissue transfer. Right now she would have to go to a tertiary center for that surgery. She would like to stay local if at all possible. May be able to do a local fasciocutaneous flap followed by skin graft of the donor area. I think the ulcer is just a tad too low for a soleus muscle flap. Will evaluate at the time of surgery. There may be issues with healing because of the scarring present. Anteriorly there is the muscle flap with skin graft. Could design the flap through the lateral edge of the muscle flap. Would base the fasciocutaneous flap of the medial perforators based on the tibial vessels. She is a smoker. Would proceed with a first stage delay which should help dilate the perforators to the skin that are constricted from the nicotine. The delay procedure can be done at the time of the operative debridement. At the time of that surgery, will recheck a Prealbumin and recheck a HgbA1c. Surgery would be done under general anesthesia with a surgical observation overnight stay in the hospital. Patient was informed of the risks and complications of the procedure including alternatives to surgery. These were discussed with the patient personally. Patient voices understanding and wishes to proceed. Potential risks and complications included but not inclusive of bleeding, infection, seroma, hematoma, bruising, swelling, prolonged need for drains, loss of sensation to skin, partial or complete loss of the flap and/or skin graft, wound breakdown, need for wound care, poor scarring, poor aesthetic outcome, intra operative cardiac or neurologic events, DVT, PE, and reaction to anesthesia. Encouraged patient to stop smoking as it may have deleterious effects on wound healing. She states she smokes one pack per day. 20 cigarettes. Each week she decreases her cigarette usage by one cigarette. By doing this slowly, there is a better chance that she can quit not only to improve healing at the time of surgery but hopefully quit permanently.
== END 2023-08-07 23:59 | disposition home or self-care (01) ==
LOC: WC 09:13
PROVIDERS: Referring Provider Nurse Practitioner Family; Visit Provider Nurse Practitioner Family
DX: E11.622 Type 2 diabetes mellitus with other skin ulcer (principal); L97.926 Non-pressure chronic ulcer of unspecified part of left lower leg with bone involvement without evidence of necrosis; M86.9 Osteomyelitis, unspecified; B95.62 Methicillin resistant Staphylococcus aureus infection as the cause of diseases classified elsewhere; F17.200 Nicotine dependence, unspecified, uncomplicated; S81.802S Unspecified open wound, left lower leg, sequela
CPT/HCPCS: 11043

== ENCOUNTER 2023-08-18 09:09 | Outpatient (RCR) | payer MEDICAID, SELFPAY ==
[2023-08-08 00:36] VITALS: BP 126/79; PULSE 92; RESP 18; TEMP 36.2
[2023-08-18 09:13] VITALS: BP 140/63; PULSE 106; RESP 16
--- NOTE | 2023-08-18 12:20 | PCM.WC.PN ---
History of Present Illness Date of Service: 08/18/23 Chief Complaint: nonhealing ulcer left anterior leg. History of Wound: Surgery 12/03/22 - surgical preparation left anterior leg with incision and drainage and excisional debridement nonhealing infected MRSA ulcer and partial ostectomy tibia for osteomyelitis. Wound care - Silver dressings followed by Tubigrip. Operative Tissue and bone cultures positive for MRSA. Treated with IV Vancomycin. Infectious Diseases consulted. Pathology - pieces of bone with chronic inflammation and reactive changes, negative for acute osteomyelitis. Prealbumin from 12/04/22 was 14.5. Encouraged nutritional supplementation with protein to help with the healing process. HgbA1c from 07/19/22 was 5.7. HgbA1c needs to be less than 8 for elective surgeries. MRI left leg done on08/08/22 - Sinus tracts from the marrow of the mid to distal tibial diaphysis to the skin at the medial aspect. Marrow edema throughout the majority of the tibia. Findings concerning for osteomyelitis. Arterial study completed 11/04/22. Triphasic Doppler waveforms at ankle level bilaterally. Right MARI by dorsalis pedis = 1.15.? Left MARI by dorsalis pedis = 1.28. There is no evidence of significant arterial occlusive disease in the lower extremities bilaterally. Today she denies complaints of fever. Her appetite is ok. Progress of Wound: Ulcer stable. Some bone still exposed. Objective Data Objective Data Vital Signs: Vital Signs Temp Pulse Resp BP O2 Del Method 97.2 F L 106 H 16 140/63 H Room Air 08/08/23 00:36 08/18/23 09:13 08/18/23 09:13 08/18/23 09:13 08/18/23 09:13 Oxygen Delivery Method Room Air Charges/Coding Procedures Integumentary [id number]: [id number] Miryam musc/fascia 20 sq cm/< Debridement Note Debridement Note Wound debrided: #8 Left anterior leg. Laterality: Left Wound Grade/Stage: Stage IV Type of Debridement: Excisional debridement Anesthesia Used: 4% Lidocaine Solution Depth: Down to and including healthy tissue, in the subcutaneous layer, to muscle and to bone (bone exposed but not debrided.) Percentage of wound debrided: 100 Instrument Used: 3mm curette Tissue Removed: subcutaneous tissue into the muscle. bone is exposed but not debrided. Severity: Fat Layer Exposed (muscle is exposed. bone is exposed but not debrided.) Amount of bleeding with debridement: Mild Bleeding Controlled with: Pressure and Compression and gauze Patient tolerated procedure: Patient tolerated procedure well Post-Debridement Measurements and Additional Note: Post-Debridement Measurements/Treatment - Nurse 1 - General Ulcer Assessment Start: 08/18/23 09:11 Freq: Status: Active Protocol: ELENA Activity Type Activity Date Activity User E-sign Co-sign Detail Recorded Client Recorded Date Recorded By Document 08/18/23 09:13 DL CTS [facility] 08/18/23 09:20 DL 08/18/23 09:13 WC - Today's Visit Information Type of service Follow-up Visit (Physician/DEATH CLEARANCE COORDINATOR ) Arrival Mode Ambulatory Transfer Assistance None Patient Identification Verified (Name & Yes ) Patient Requires Transmission-Based No Precautions Vital Signs Pulse Rate (60-100) 106 H Pulse Location Monitor Respiratory Rate (12-18) 16 Respiratory rate source Observation Oxygen Delivery Method Room Air Blood Pressure (90/60-120/80) 140/63 H Blood Pressure Mean (mm Hg) 88 Source Monitor Position Sitting Blood Pressure Location Left Arm History Since Last Visit- (Skip if this is Patient's initial visit) Have you changed medications since your No last visit? Any new allergies or adverse reactions No Had a fall/change in ADL's that may No increase risk of falls Signs or symptoms of abuse and/or No neglect since last visit Have you been in the hospital since your No last visit? Has dressing in place as prescribed Yes Has compression in place as prescribed Yes Has offloadiing in place as prescribed N/A Experienced any changes in pain level or No management Left Footwear Regular Shoe Right Footwear Regular Shoe Pain Scale: 0-10 Numeric Is Patient Pain Free? Yes - Nurse 1 - General Ulcer Measurement Start: 08/18/23 09:11 Freq: Status: Active Protocol: Activity Type Activity Date Activity User E-sign Co-sign Detail Recorded Client Recorded Date Recorded By Document 08/18/23 09:13 DL CTS [facility] 08/18/23 09:20 DL 08/18/23 09:13 Wound Center Nurse 1 #8 L Tenorio post-op -Combined with other wound No -Current Size (cm) - Length 1.7 -Current Size (cm) - Width 1 -Current Size (cm) - Depth 0.5 -Total Square Cm 1.7 -Date of Last Picture (Recall this 08/18/23 field) -Photo Taken Yes -Epithelialization None Present -Tunneling No -Undermining/Tunneling No -Circular Undermining No -Exudate Amt Medium -Exudate Type Serosanguineous -Wound Margin Distinct, Outline Attached -Granulation Amt Small (1-33%) -Granulation Quality Red -Slough/Fibrin Yes -Necrosis Amt Large (67-100%) -Necrotic Tissue Type Adherent Slough -Structure Exposed Bone -Texture (Mima-wound Skin Appearance) Assessed, Scarring -Moisture (Mima-wound Skin Appearance) Assessed,Dry/ Scaly -Color (Mima-wound Skin Appearance) Assessed -Temperature (Mima-wound Skin No Abnormality Appearance) (Pt Warm) -Tenderness on Palpation (Mima-wound No Skin Appearance) -Ulcer Cleansing Soap and Water -Foul Odor after Cleansing No -Anesthetic Used 5% Lidocaine Gel YVETTE - Nurse 2 - General Ulcer CM Notes Start: 08/18/23 09:11 Freq: Status: Active Protocol: Activity Type Activity Date Activity User E-sign Co-sign Detail Recorded Client Recorded Date Recorded By Document 08/18/23 09:38 Laptop 08/18/23 09:40 08/18/23 09:38 Wound Center Nurse 2 -Time 09:38 -Correct Patient Yes -Correct Side, Site, Position Yes -Correct Procedure Yes -Procedure Performed Yes -Type of Procedure Debridement -Clinical Debridement Muscle / Fascia -Tissue Removed Muscle -Post Debridement (cm) - Length 2.0 -Post Debridement (cm) - Width 1.3 -Post Debridement (cm) - Depth 0.9 -Total Square (Post) (cm) 2.60 -Area of Debridement (cm) - Length 2.0 -Area of Debridement (cm) - Width 1.3 -Total Square (Area) (cm) 2.60 -Tunneling No -Undermining/Tunneling No -Circular Undermining No -Wound/Ulcer Outcome Not Healed -Ulcer Cleansing Rinsed/ Irrigated with Saline -Foul Odor after Cleansing No -Bioengineered Tissue No -Bleeding Controlled with Pressure -Treatment Response Procedure Tolerated Well -Offloading No -Debridement - Muscle / Fascia, 1st Yes 20sq cm Pain Scale: 0-10 Numeric Is Patient Pain Free? Yes YVETTE - Nurse 3 - General Ulcer D/C NN Start: 08/18/23 09:11 Freq: Status: Active Protocol: Activity Type Activity Date Activity User E-sign Co-sign Detail Recorded Client Recorded Date Recorded By Document 08/18/23 09:54 [facility] Desktop 08/18/23 09:54 [facility] 08/18/23 09:54 Wound Care Center Nurse 3 #8 L Tenorio post-op -Ulcer Cleansing Rinsed/ Irrigated with Saline -Foul Odor after Cleansing No -Primary Dressing Applied Aquacel AG 2x2, Mepilex Border -Primary Dressing Covered/Secured with Dry Gauze -Aquacel AG 2x2 1 -Mepilex Border 1 Left -Tubular Bandage Double Layer -Size of Tubigrip Used Size C -Size C ($) 2 Treatment Response Procedure Tolerated Well Pain Scale: 0-10 Numeric Is Patient Pain Free? 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: CODE(S): L97.926 - Non-pressure chronic ulcer of unspecified part of left lower leg with bone involvement without evidence of necrosis (2) MRSA (methicillin resistant Staphylococcus aureus) infection: CODE(S): A49.02 - Methicillin resistant Staphylococcus aureus infection, unspecified site (3) Osteomyelitis: CODE(S): M86.9 - Osteomyelitis, unspecified (4) Sequelae of open wound of left lower extremity: CODE(S): S81.802S - Unspecified open wound, left lower leg, sequela (5) DM type 2, goal HbA1c < 7%: CODE(S): E11.9 - Type 2 diabetes mellitus without complications (6) Smoker: CODE(S): F17.200 - Nicotine dependence, unspecified, uncomplicated PLAN: Plan Wound care - Aquacel-Ag dressing covered with Mepilex daily. Compression - Tubigrip. Prealbumin from 12/04/22 was 14.5. Encouraged nutritional supplementation with protein to help the healing process. HgbA1c from 07/19/22 was 5.7. The HgbA1c needs to be less than 8 for elective surgeries. The ulcer has reached a plateau. There is a small area of exposed bone. It will not heal without complex flap reconstruction. HBO may be helpful both before and after surgery for chronic refractory osteomyelitis. She had MRSA in the ulcer at the time of surgery in November,. Will need another culture before her next surgery. Arterial study completed 11/04/22. Triphasic Doppler waveforms at ankle level bilaterally. Right MARI by dorsalis pedis = 1.15.? Left MARI by dorsalis pedis = 1.28. There is no evidence of significant arterial occlusive disease in the lower extremities bilaterally. Encouraged patient to stop smoking as it may have deleterious effects on wound healing. Discussed nicotine patches to stop smoking. Ideally she needs to stop smoking to give this ulcer and future surgeries the best possible chance of healing. Followup 4 weeks due to the holidays falling on Mondays. From Dr. Jones's previous note: Ideally the patient needs another microvascular free tissue transfer. Right now she would have to go to a tertiary center for that surgery. She would like to stay local if at all possible. May be able to do a local fasciocutaneous flap followed by skin graft of the donor area. I think the ulcer is just a tad too low for a soleus muscle flap. Will evaluate at the time of surgery. There may be issues with healing because of the scarring present. Anteriorly there is the muscle flap with skin graft. Could design the flap through the lateral edge of the muscle flap. Would base the fasciocutaneous flap of the medial perforators based on the tibial vessels. She is a smoker. Would proceed with a first stage delay which should help dilate the perforators to the skin that are constricted from the nicotine. The delay procedure can be done at the time of the operative debridement. At the time of that surgery, will recheck a Prealbumin and recheck a HgbA1c. Surgery would be done under general anesthesia with a surgical observation overnight stay in the hospital. Patient was informed of the risks and complications of the procedure including alternatives to surgery. These were discussed with the patient personally. Patient voices understanding and wishes to proceed. Potential risks and complications included but not inclusive of bleeding, infection, seroma, hematoma, bruising, swelling, prolonged need for drains, loss of sensation to skin, partial or complete loss of the flap and/or skin graft, wound breakdown, need for wound care, poor scarring, poor aesthetic outcome, intra operative cardiac or neurologic events, DVT, PE, and reaction to anesthesia. Encouraged patient to stop smoking as it may have deleterious effects on wound healing. She states she smokes one pack per day. 20 cigarettes. Each week she decreases her cigarette usage by one cigarette. By doing this slowly, there is a better chance that she can quit not only to improve healing at the time of surgery but hopefully quit permanently.
== END 2023-09-07 23:59 | disposition home or self-care (01) ==
LOC: WC 09:09
PROVIDERS: Referring Provider Nurse Practitioner Family; Visit Provider Nurse Practitioner Family
DX: L97.926 Non-pressure chronic ulcer of unspecified part of left lower leg with bone involvement without evidence of necrosis (principal); M86.9 Osteomyelitis, unspecified; E11.69 Type 2 diabetes mellitus with other specified complication; A49.02 Methicillin resistant Staphylococcus aureus infection, unspecified site; S81.802S Unspecified open wound, left lower leg, sequela; F17.200 Nicotine dependence, unspecified, uncomplicated
CPT/HCPCS: 11043

== ENCOUNTER 2023-08-25 08:00 | Outpatient (RCR) | payer MEDICAID, SELFPAY ==
[2023-01-06 00:06] VITALS: BP 131/68; PULSE 77; RESP 18; TEMP 36.7
== END 2023-09-07 23:59 ==
LOC: NS 08:00
PROVIDERS: Referring Provider Podiatrist; Visit Provider Nurse Practitioner Family
DX: Z71.3 Dietary counseling and surveillance (principal); E46 Unspecified protein-calorie malnutrition; J44.9 Chronic obstructive pulmonary disease, unspecified; E78.5 Hyperlipidemia, unspecified
CPT/HCPCS: 97803

== ENCOUNTER → 2023-08-25 | Outpatient (CLI) | payer MEDICAID, SELFPAY ==
[2023-08-25 08:36] LABS: Hematocrit 37.3 % (37-47); Hemoglobin 12.1 g/dL (12.0-15.0); Mean Corp Hgb Conc 32.4 g/dL (32-36); Mean Corpuscular Hgb 29.1 pg (27.0-32.0); Mean Corpuscular Volume 89.7 fL (81-99); Mean Platelet Vol. 11.1 fl (6.2-12.0); Platelet Count 248 K/mm3 (150-450); RBC Distribution Width CV 13.9 % (11.6-14.6); RBC Distribution Width SD 45.2 fl (35.1-43.9); Red Blood Count 4.16 M/mm3 (4.2-5.4); White Blood Count 6.8 K/mm3 (4.4-11.0)
[2023-08-25 09:51] LABS: ALB/GLOB Ratio 0.9 RATIO (0.9-2.4); AST(SGOT) 25 U/L (15-37); Alanine Aminotransfer ALT/SGPT 26 U/L (13-56); Albumin, Serum 3.4 g/dL (3.2-5.0); Alkaline Phosphatase 116 U/L (45-117); Anion Gap 6 (5-15); BUN 16 mg/dL (7-18); BUN/Creat Ratio 35.4 RATIO (10-20); Calcium,Total 8.7 mg/dL (8.5-10.1); Chloride 110 mmol/L (98-107); Creatinine, Serum 0.45 mg/dL (0.55-1.02); EST Glomerular Filtration Rate 149 mL/min (>60); Est Glom Filt Rate - Afr Amer 180 mL/min (>60); Globulin 3.6 g/dL (2.2-4.2); Glucose 116 mg/dL (74-106); Potassium 3.9 mmol/L (3.5-5.1); Sodium Level 144 mmol/L (136-145)
== END | disposition home or self-care (01) ==
LOC: LABSPEC 07:43
PROVIDERS: Referring Provider Internal Medicine; Visit Provider Internal Medicine
DX: R63.4 Abnormal weight loss (principal)
CPT/HCPCS: 80053; 85027

== ENCOUNTER 2023-09-09 08:19 | Emergency (ER) | payer MEDICAID, SELFPAY ==
[2023-09-09 08:21] VITALS: BP 142/89; PULSE 84; RESP 16; TEMP 36.1; O2SAT 98; BMI 19.1
--- NOTE | 2023-09-09 08:46 | RAD_ITS ---
STUDY: X-RAY CHEST REASON FOR EXAM: Female, 62 years old. Chest pain. TECHNIQUE: Single frontal view of the chest. COMPARISON: April 07, 2023 FINDINGS: Moderate hyperinflation and hyperlucency, unchanged. There is no demonstrated pleural abnormality. Normal size heart. Normal mediastinum and stephanie. Normal visualized pulmonary arteries. Stable aortic tortuosity with calcification. Normal visualized thoracic spine. Right shoulder arthroplasty and healed left rib fractures unchanged. No abnormality of the visualized soft tissue structures of the upper abdomen. RAD/Chest 1 View (Portable) IMPRESSION: Stable hyperinflation with no acute or active cardiopulmonary disease. Electronically Signed: Dmitriy Hudson MD at 9:41 EST ,
--- NOTE | 2023-09-09 08:48 | ED.VIS.CHEST ---
HPI History of Present Illness Chief Complaint: Anxiety Informant: patient Narrative Narrative: Patient presents to the ER telling triage she is here for anxiety, had some medication changes recently including Paxil changed to Zoloft about a month ago, she is out of her Ativan, basically tells me she is here for chest discomfort that she frequently gets and thinks it is due to anxiety. She gets it more at nighttime such as the case this past night this current episode. She presents around 8:30 AM, she states this started around 3 she has not slept all night partially because of this, she has associated nausea and some mild dyspnea, she took a nitroglycerin this morning it seemed to help at some, because I am out of my nerve pills. She states the nitroglycerin did help with some but she only tried it once. She still has the discomfort. No known history of heart disease, she states she has these episodes frequently. Also overnight she has had an unusual oily taste in her mouth she states. [facility] Medical History Anemia Anxiety Depression DM type 2, goal HbA1c < 7% DM type 2, goal HbA1c < 7% Emphysema, unspecified Epilepsy FH: bilateral hip replacements Gastric reflux High cholesterol Loss of hearing MRSA (methicillin resistant Staphylococcus aureus) infection Myocardial infarct Open wound Osteomyelitis Seizures Sequelae of open wound of left lower extremity Smoker Ulcer of left yoder limited to breakdown of skin Wears dentures Wears glasses Home Medications alendronate 70 mg tablet 70 mg PO SA BONES 12/22/16 [History Last Taken 06/10/20] ipratropium 20 mcg-albuterol 100 mcg/actuation mist for inhalation (Combivent Respimat) 1 puff inhalation Q4H SOB 12/22/16 [History Last Taken Unknown] phenytoin sodium extended 100 mg capsule 100 mg PO BID@0900,1700 SEIZURES 12/22/16 [History Last Taken 12/03/22 04:30] aclidinium bromide 400 mcg/actuation breath activated powder inhaler 400 mcg IH BID SOB 06/12/20 [History Last Taken 06/12/20] ascorbic acid (vitamin C) 500 mg tablet 500 mg PO DAILY SUPPLEMENT 06/12/20 [History Last Taken 06/12/20] benzonatate 100 mg capsule 100 mg PO DAILY PRN Cough 06/12/20 [History Last Taken Unknown] cyclobenzaprine 10 mg tablet 10 mg PO BID PRN PRN BACK 06/12/20 [History Last Taken Unknown] diclofenac sodium 75 mg tablet,delayed release 75 mg PO BID PRN PRN BACK PAIN 06/12/20 [History Last Taken Unknown] fluticasone propionate 100 mcg/actuation blister powder for inhalation 2 puff inhalation BID COPD 06/12/20 [History Last Taken 06/12/20] folic acid 1 mg tablet 1 mg PO BID SUPPLEMENT 06/12/20 [History Last Taken 06/12/20] loratadine 10 mg tablet 10 mg PO DAILY ALLERGIES 06/12/20 [History Last Taken 12/03/22 04:30] pravastatin 20 mg tablet 20 mg PO QHS CHOLESTEROL 06/12/20 [History Last Taken 06/11/20] cholecalciferol (vitamin D3) 25 mcg (1,000 unit) tablet 5,000 unit PO DAILY 06/15/20 [Rx Last Taken Unknown] lorazepam 0.5 mg tablet (Ativan) 0.5 mg PO BID PRN anxiety #10 tabs 07/08/22 [Rx Last Taken Unknown] omeprazole 40 mg capsule,delayed release 40 mg PO DAILY #30 caps 07/08/22 [Rx Last Taken 12/03/22 04:30] L.acidophil,salivari-Bifido bifidum-Strep thermoph 175 mg capsule (Acidophilus Probiotic Blend) 1 cap PO DAILY #30 caps 12/05/22 [Rx Last Taken Unknown] vancomycin 1 gram/200 mL in dextrose 5 % intravenous piggyback 1,000 mg IV Q12H 40 days #80 doses 12/05/22 [Rx Last Taken Unknown] oxycodone-acetaminophen 5 mg-325 mg tablet (Percocet) 1 tab PO BID PRN PRN pain (scale score 7-10) 7 days #14 tabs 01/10/23 [Rx Last Taken Unknown] oxycodone-acetaminophen 5 mg-325 mg tablet (Percocet) 1 tab PO DAILY PRN pain (scale score 7-10) 7 days #7 tabs 01/23/23 [Rx Last Taken Unknown] lidocaine 5 % topical patch (Lidoderm) 1 patch topical DAILY #15 ea 04/07/23 [Rx Last Taken Unknown] docusate sodium 100 mg capsule (Colace) 100 mg PO BID #60 caps 05/02/23 [Rx Last Taken Unknown] promethazine 25 mg tablet 25 mg PO Q6H PRN nausea and vomiting #30 tabs 05/02/23 [Rx Last Taken Unknown] nitroglycerin 0.4 mg sublingual tablet (Nitrostat) 0.4 mg sublingual Q5M 08/18/23 [History Last Taken Unknown] sertraline 50 mg tablet (Zoloft) 50 mg PO DAILY 08/18/23 [History Last Taken Unknown] Allergy/AdvReac Type Severity Reaction Status Date / Time Penicillins Allergy Severe Shortness Verified 09/09/23 09:17 of breath amoxicillin Allergy Hives Verified 09/09/23 09:17 aspirin AdvReac it chokes Verified 09/09/23 09:17 me. Surgical History H/O repair of right rotator cuff H/O: hysterectomy History of cardiac catheterization History of cholecystectomy Social History Smoking Status: Current every day smoker tobacco type: cigarettes ROS ROS ED Constitutional Constitutional ED: Denies chills or fever(s) Eyes Eyes: Denies change in vision or diplopia ENT ENT ED: Denies rhinorrhea or sore throat Cardiovascular Cardiovascular: Reports chest pain; Denies palpitations or radiating jaw, neck or arm pain Respiratory/Chest Respiratory/Chest: Reports cough and dyspnea Gastrointestinal Gastrointestinal: Reports diarrhea, nausea and other Details: Nonbloody nonmelanotic diarrhea for about 12 hours ; Denies abdominal pain or vomiting Genitourinary Genitourinary ED: Denies dysuria or hematuria Musculoskeletal Musculoskeletal: Denies back pain or neck pain Integumentary Denies abscess or rash Neurologic Neurologic: Denies headache(s), paresthesias or weakness Psychiatric Psychiatric: Reports anxiety; Denies suicidal ideation or suicidal thoughts EXAM Physical Exam Const Vital Signs: 09/09/23 08:21 09/09/23 09:17 09/09/23 09:23 Temperature 96.9 F L Temperature Source Temporal Pulse Rate 84 78 Respiratory Rate 16 16 Blood Pressure 142/89 H 155/72 H Blood Pressure Mean 106 99 Pulse Ox 98 98 Oxygen Delivery Method Room Air Room Air Room Air Positive well nourished and well developed General Appearance ED: well developed and NAD HEENT Reports moist mucous membranes HEENT Narrative: Edentulous normocephalic and atraumatic Eyes PERRL and EOMs intact bilaterally Neck full ROM, supple and no JVD Resp normal respiratory effort and clear to auscultation bilaterally Cardio regular rate, regular rhythm and no murmurs GI non-distended GI Narrative: Mildly tender epigastrium only. Otherwise benign abdomen. No guarding or rebound. No pulsatile mass. Auscultation: normoactive bowel sounds Palpation: soft Back/Spine no CVA tenderness General Back: other FROM Extremity normal to inspection General Extremety ED: Negative for edema, pulses abnormal or tenderness General Extremity: Negative for edema or pulses abnormal Neuro oriented x3, CN's II-XII intact bilaterally and no sensory deficits noted Sensorium / Orientation: awake and alert Motor Exam: strength 5/5 throughout Psych mental status grossly normal Skin no rashes or lesions noted and no wounds Heart Score History: Moderately Suspicious ECG: Normal Age: >45 - <65 years Risk Factors: >/= 3 Risk Factors or History of CAD Troponin: </= Normal Limit Score: 4 MDM MDM MDM Narrative Medical decision making narrative: Patient's EKG and troponin are both negative/normal on my interpretation. 1 view chest x-ray showing hyperexpansion/COPD pattern but no other acute abnormality on my interpretation. Patient was given a GI cocktail while we were working her up, she did have some mild improvement. GI etiologies certainly in the differential diagnosis given the history, and she has self-declared anxiety. She appears comfortable she is asking for an Ativan, I will give her a 0.5 mg tablet while she is here, but given that she does not appear to have any emergent need for a controlled substance refill, I will direct her back to her doctor for that, wherever she gets it from. Advised to continue the new antianxiety medication and to follow-up. Lab Data Attestation: I reviewed the patient's lab results. Labs: Laboratory Results - last 24 hr 09/09/23 09:15 WBC 8.8 RBC 4.34 Hgb 12.6 Hct 37.7 MCV 86.9 MCH 29.0 MCHC 33.4 RDW Std Deviation 44.7 H RDW Coeff of Brittany 14.0 Plt Count TNP MPV 10.8 Immature Gran % (Auto) 0.300 Neut % (Auto) 72.4 H Lymph % (Auto) 19.7 Simpson % (Auto) 6.8 Eos % (Auto) 0.5 Baso % (Auto) 0.3 Absolute Neuts (auto) 6.3 Absolute Lymphs (auto) 1.73 Nucleated RBC % 0 Platelet Estimate ADEQUATE Sodium 130 L Potassium 3.1 L Chloride 98 Carbon Dioxide 25.0 Anion Gap 7 BUN 6 L Creatinine 0.56 Estim Creat Clear Calc 68.39 Est GFR (MDRD) Af Amer 141 Est GFR (MDRD) Non-Af 116 BUN/Creatinine Ratio 10.7 Glucose 128 H Calcium 8.2 L Troponin I High Sens 7 Radiography Diagnostic Testing: Clinical Impression(s) from Imaging Studies Chest X-Ray 09/09/23 08:46 IMPRESSION: Stable hyperinflation with no acute or active cardiopulmonary disease. Electronically Signed: mDitriy Hudson MD at 9:41 EST Reading Location ID and State: [address] [place] [address] , Service support , Rhythm Strip Rhythm Strip: Sinus Rhythm Rate: 80 Ectopy: None EKG Initial EKG: Attestation: I personally reviewed and interpreted this EKG as follows: Interpretation: Sinus Rhythm and No Acute Injury Pattern Comments: nml EKG Prior EKG tracings: available for review Prior: No Prior Discharge Plan Triage Chief Complaint: Anxiety ED Provider: Rohit Mcdonald Dx/Rx/DC Orders Clinical Impression: Non-cardiac chest pain, Esophageal reflux, Anxiety Instructions: ED Chest Pain, Noncardiac Prescriptions: No Action alendronate 70 MG tablet 70 mg PO SA phenytoin sodium extended 100 MG capsule 100 mg PO BID@0900,1700 Combivent Respimat 1 PUFF inhaler 1 puff inhalation Q4H cyclobenzaprine 10 MG tablet 10 mg PO BID PRN PRN (Reason: BACK) ascorbic acid (vitamin C) 500 MG tablet 500 mg PO DAILY benzonatate 100 MG capsule 100 mg PO DAILY PRN (Reason: Cough) diclofenac sodium 75 MG tablet 75 mg PO BID PRN PRN (Reason: BACK PAIN) folic acid 1 MG tablet 1 mg PO BID pravastatin 20 MG tablet 20 mg PO QHS aclidinium bromide 400 MCG aerosol powdr breath activated 400 mcg IH BID fluticasone propionate 100 mcg/actuation blister with device 2 puff inhalation BID loratadine 10 MG tablet 10 mg PO DAILY cholecalciferol (vitamin D3) 1,000 UNIT tablet 5,000 unit PO DAILY 0RF omeprazole 40 mg capsule,delayed release(DR/EC) 40 mg PO DAILY Qty: 30 0RF lorazepam [Ativan] 0.5 mg tablet 0.5 mg PO BID PRN (Reason: anxiety) Qty: 10 0RF vancomycin in dextrose 5 % 1 gram/200 mL Piggyback 1,000 mg IV Q12H 40 Days Qty: 80 0RF Rx Instructions: stop date 01/14/23 dx: osteomyelitis weekly bmp, cbc, esr, and vanc trough. fax to [phone] LAnjelicaacidoph,saliva-B.bif-S.therm [Acidophilus Probiotic Blend] 175 mg capsule 1 cap PO DAILY Qty: 30 1RF oxycodone-acetaminophen [Percocet] 5-325 mg tablet 1 tab PO BID PRN PRN (Reason: pain (scale score 7-10)) 7 Days Qty: 14 0RF oxycodone-acetaminophen [Percocet] 5-325 mg tablet 1 tab PO DAILY PRN (Reason: pain (scale score 7-10)) 7 Days Qty: 7 0RF lidocaine [Lidoderm] 5 % adhesive patch,medicated 1 patch topical DAILY Qty: 15 0RF Rx Instructions: leave on most painful area for up to 12 hrs sertraline [Zoloft] 50 mg tablet 50 mg PO DAILY nitroglycerin [Nitrostat] 0.4 mg tablet, sublingual 0.4 mg sublingual Q5M Rx Instructions: do not exceed 3 doses per episode promethazine 25 mg tablet 25 mg PO Q6H PRN (Reason: nausea and vomiting) Qty: 30 1RF docusate sodium [Colace] 100 mg capsule 100 mg PO BID Qty: 60 0RF Primary Care Provider: Care Physician,No Primary Referrals: ASHA MAYORGA [Other] - 1 Week Disposition Disposition: Home, Self Care
[2023-09-09] MEDS: Ondansetron 4 MG/2 ML Vial IV (09:13)
[2023-09-09] MEDS: Mag Hydrox/Al Hydrox/Simeth 30 ML UDC PO (09:13)
[2023-09-09] MEDS: Pantoprazole Sodium 40 MG Tablet PO (09:13)
[2023-09-09] MEDS: 0.9% Normal Saline (500mL Bag) 500 ML 999 ML IV (09:15)
[2023-09-09 09:23] VITALS: BP 155/72; PULSE 78; RESP 16; O2SAT 98
[2023-09-09 09:29] LABS: Absolute Lymphocyte Count 1.73 X10^3/uL (0.83-4.51); Absolute Neutrophil Count 6.3 X10^3/uL (2.0-7.7); Basophil# 0.03 X10^3/uL; Basophil% 0.3 % (0-1); Eosinophil# 0.04 X10^3/uL; Eosinophils% 0.5 % (0-5); Hematocrit 37.7 % (37-47); Hemoglobin 12.6 g/dL (12.0-15.0); Lymphocyte # 1.73 X10^3/ul (0.83-4.51); Lymphocyte % 19.7 % (19-41); Mean Corp Hgb Conc 33.4 g/dL (32-36); Mean Corpuscular Volume 86.9 fL (81-99); Mean Platelet Vol. 10.8 fl (6.2-12.0); Monocyte% 6.8 % (0-10); NRBC Flagged by Analyzer 0 % (0-5); Neutrophil # 6.34 X10^3/uL (2.7-7.7); Neutrophil % 72.4 % (47-70); POSITIVE COUNT YES; RBC Distribution Width SD 44.7 fl (35.1-43.9); Red Blood Count 4.34 M/mm3 (4.2-5.4); White Blood Count 8.8 K/mm3 (4.4-11.0)
[2023-09-09 09:44] LABS: Anion Gap 7 (5-15); BUN 6 mg/dL (7-18); BUN/Creat Ratio 10.7 RATIO (10-20); Calcium,Total 8.2 mg/dL (8.5-10.1); Chloride 98 mmol/L (98-107); Creatinine, Serum 0.56 mg/dL (0.55-1.02); EST Glomerular Filtration Rate 116 mL/min (>60); Est Glom Filt Rate - Afr Amer 141 mL/min (>60); Estimated Creatinine Clearance 68.39 ml/min; Glucose 128 mg/dL (74-106); Potassium 3.1 mmol/L (3.5-5.1); Sodium Level 130 mmol/L (136-145); Troponin-I HS 7 pg/mL (3.0-54.0)
[2023-09-09 10:11] LABS: Differential Indicated SCAN CRITERIA MET; Platelet Estimate ADEQUATE (ADEQ)
[2023-09-09] MEDS: LORazepam 0.5 MG Tablet PO (10:38)
[2023-09-09 10:39] VITALS: BP 158/69; PULSE 73; RESP 13; O2SAT 100
--- OUTSIDE RECORDS SUMMARY | 2023-09-09 10:52 | XMS RPT_ITS | CCD ---
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 Name Role Phone Adithya Weiss Primary Care Provider WILFREDO STEPHENSON Primary Care Unavailable SACHIN, WILFREDO Attending Unavailable SACHIN, WILFREDO Admitting Unavailable SACHIN, WILFREDO Primary Care Unavailable SACHIN, WILFREDO Attending Unavailable SACHIN, WILFREDO Admitting Unavailable SACHIN, WILFREDO Primary Care Unavailable SACHIN, WILFREDO Attending Unavailable SACHIN, WILFREDO Admitting Unavailable SACHIN, WILFREDO Attending Unavailable SACHIN, WILFREDO Admitting Unavailable SACHIN, WILFREDO Primary Care Unavailable ASCHIN, WILFREDO Primary Care Unavailable SACHIN, WILFREDO Attending Unavailable SACHIN, WILFREDO Admitting Unavailable SACHIN, WILFREDO Primary Care Unavailable SACHIN, WILFREDO Attending Unavailable SACHIN, WILFREDO Admitting Unavailable SACHIN, WILFREDO Primary Care Unavailable SACHIN, WILFREDO Attending Unavailable SACHIN, WILFREDO Admitting Unavailable Abhishek WOOD, [facility] Primary Care Provider Allergies Allergy Classification Reported Allergen(s) Allergy Type Date of Onset Reaction(s) Facility (5 sources) Aluminum aspirin Drug Allergy 5 Shortness Of Breath [place], [place] (5 sources) Citalopram Drug Allergy 5 Palpitations [place] (5 sources) Codeine Drug Allergy 5 Other (See Comments) [place] (5 sources) Etanercept Drug Allergy 5 [place] (5 sources) Penicillins Propensity to adverse reactions to drug 5 Anaphylaxis [place] (5 sources) varenicline Drug Allergy 5 [place] (5 sources) Amoxicillin-Pot Clavulanate Propensity to adverse reactions to drug 5 Swelling [place] (5 sources) Methotrexate Derivatives Propensity to adverse reactions to drug [address] [place] [address] Medications Current Medications Medication Drug Class(es) Dates Sig (Normalized) Sig (Original) acetaminophen 325 mg / oxyCODONE hydrochloride 5 mg oral tablet (3 sources) Opioid Agonist Start: 08-05-2019 take 1 tablet by mouth every six hours as needed for pain 1 tablet, Oral, EVERY 6 HOURS PRN, Pain Severe (7-10), Starting [facility] 08/05/19 at 1846 Maximum dose of acetaminophen is 4000 mg from all sources in 24 hours. Completed/Discontinued Medications Medication Drug Class(es) Dates Sig (Normalized) Sig (Original) folic acid 1 mg in dextrose 5 % 50 mL IVPB (1 source) Start: 08-05-2019 End: 08-05-2019 folic acid 1 mg in dextrose 5 % 50 mL IVPB gabapentin 100 mg oral capsule (4 sources) Anti-epileptic Agent Start: 11-06-2016 End: 08-07-2019 take 2 capsules by mouth twice daily gabapentin (NEURONTIN) 100 MG capsule Take 2 capsules by mouth 2 times daily 120 capsule 0 11/06/2016 08/07/2019 Discontinued (Stop Taking at Discharge) 1000 ml glucose 500 mg/ml injection (1 source) Start: 08-06-2019 End: 08-06-2019 dextrose 50 % solution microencapsulated potassium chloride 20 meq extended release oral tablet (1 source) Start: 08-06-2019 End: 08-06-2019 potassium chloride (KLOR-CON M) extended release tablet 20 mEq thiamine hydrochloride 100 mg/ml injectable solution (1 source) Start: 08-05-2019 End: 08-05-2019 thiamine (B-1) injection 100 mg Problems Active Problems Problem Classification Problem Date Documented Date Episodic/Chronic Alcohol-related disorders (2 sources) Alcoholic cirrhosis; Translations: [Alcoholic cirrhosis of liver] Onset: 12-25-2005 08-05-2019 Chronic Anxiety disorders (7 sources) Anxiety state; Translations: [Generalized anxiety disorder] Onset: 08-05-2019 06-08-2015 Chronic Chronic obstructive pulmonary disease and bronchiectasis (5 sources) Chronic obstructive lung disease; Translations: [Chronic airway obstruction, not elsewhere classified] 05-01-2015 Chronic Disorders of lipid metabolism (5 sources) Hyperlipidemia; Translations: [Hyperlipidemia] Onset: 05-02-2015 05-02-2015 Chronic Epilepsy; convulsions (3 sources) Epilepsy; Translations: [Status epilepticus] Onset: 12-25-2005 08-05-2019 Chronic Esophageal disorders (5 sources) Gastroesophageal reflux disease; Translations: [Esophageal reflux] 05-01-2015 Chronic Infective arthritis and osteomyelitis (except that caused by tuberculosis or sexually transmitted disease) (8 sources) Acute osteomyelitis of tibia; Translations: [Osteomyelitis, unspecified] Onset: 02-16-2016 02-16-2016 Chronic Miscellaneous mental health disorders (1 source) Confusional state; Translations: [Confusion] Chronic Mood disorders (5 sources) Bipolar disorder; Translations: [Bipolar disorder] 06-08-2015 Chronic Osteoarthritis (5 sources) Osteoarthritis; Translations: [Osteoarthritis] 06-08-2015 Chronic Other circulatory disease (5 sources) Raynaud's disease; Translations: [Raynaud's syndrome] 05-01-2015 Chronic Other hereditary and degenerative nervous system conditions (5 sources) Restless legs; Translations: [Restless legs syndrome (RLS)] 05-01-2015 Chronic Residual codes; unclassified (4 sources) Tobacco user; Translations: [Tobacco abuse disorder] 05-01-2015 Chronic Rheumatoid arthritis and related disease (5 sources) Rheumatoid arthritis; Translations: [Rheumatoid arthritis] 06-08-2015 Chronic Unclassified (5 sources) Closed fracture of distal end of right radius; Translations: [Closed fracture of distal end of right radius] Onset: 05-23-2016 05-23-2016 Past or Other Problems Problem Classification Problem Date Documented Da te Episodic/Chronic Epilepsy; convulsions (3 sources) Seizure; Translations: [Seizure (HCC)] Onset: 08-05-2019 08-05-2019 Episodic Fracture of lower limb (10 sources) Closed fracture of shaft of tibia; Translations: [Fracture of tibia AND fibula ] Onset: 12-13-2015 01-10-2016 Episodic Open wounds of head; neck; and trunk (5 sources) Wound dehiscence; Translations: [Disruption of wound] Onset: 03-06-2016 03-06-2016 Episodic Residual codes; unclassified (1 source) Tobacco user 05-01-2015 Episodic Syncope (5 sources) Syncope and collapse; Translations: [Syncope and collapse] 05-01-2015 Episodic Results Test Name Value Interpretation Reference Range Facil ity Vital Signs Date Time Vital Sign Value Performing Clinician Shelly britton 08-07-2019 12:51-0500 Body Temperature 98.29 [degF] [place], [place] 08-07-2019 12:51-0500 BP Diastolic 72 mm[Hg] [place], [place] 08-07-2019 12:51-0500 BP Systolic 147 mm[Hg] [place] 08-07-2019 12:51-0500 Pulse (Heart Rate) 90 /min [place], [place] 08-07-2019 12:51-0500 Pulse Oximetry 98 % [place] 08-07-2019 12:51-0500 Respiratory Rate 20 /min [place], [place] 08-05-2019 16:53-0500 BMI (Body Mass Index) 18.13 kg/m2 [place], [place] 08-05-2019 16:53-0500 Body weight 40.73 kg [place] Encounters Encounter Date Encounter Type Care Provider Facility Start: 06-20-2021 [facility] Start: 06-20-2021 End: 06-20-2021 ambulatory [facility] Start: 06-12-2021 End: 06-12-2021 ambulatory [facility] Start: 06-07-2021 End: 06-07-2021 ambulatory [facility] Start: 05-24-2021 End: 05-24-2021 ambulatory [facility] Start: 05-17-2021 End: 05-17-2021 ambulatory [facility] Start: 05-11-2021 End: 05-11-2021 ambulatory [facility] Start: 08-26-2019 End: 08-26-2019 Subsequent hospital visit by physician Braxton Eng MD Work Phone: [facility] Start: 08-05-2019 End: 08-07-2019 Evaluation and management of inpatient Romeo Stone Work Phone: [facility] Procedures Date Procedure Procedure Detail Performing Clinician Start: 08-07-2019 Blood count complete automated Imola K O sapay Work Phone: Start: 08-07-2019 Comprehensive metabolic panel Imola K Os apay Work Phone: Start: 08-06-2019 EEG REPORT Venancio Bud Pamela Work Phone: Start: 08-06-2019 Mri brain brain stem w/o w/contrast material Allyson S Deoras Work Phone: Start: 08-06-2019 Electroencephalogram w/rec awake&asleep Allyson S Deoras Work Phone: Start: 08-06-2019 Gluc bld gluc mntr dev cleared fda spec home use Imola K Osapay Work Phone: Start: 08-06-2019 Gluc bld gluc mntr dev cleared fda spec home use Imola K Osapay Work Phone: Start: 08-06-2019 Assay of magnesium Imola K Osapay Work Phone: Start: 08-06-2019 Assay of phosphorus inorganic Imola K Os apay Work Phone: Start: 08-06-2019 Blood count complete automated Imola K O sapay Work Phone: Start: 08-06-2019 Comprehensive metabolic panel Imola K Os apay Work Phone: Start: 08-06-2019 Drug screen quantitative phenytoin total Imola K Osapay Work Phone: Start: 08-05-2019 Radex hip unilateral with pelvis 2-3 views Romeo Stone Work Phone: Start: 08-05-2019 Ct cervical spine w/o contrast material Romeo Stone Work Phone: Start: 08-05-2019 Ct head/brain w/o contrast material Romeo Stone Work Phone: Start: 08-05-2019 Radiologic exam chest single view Romeo Stone Work Phone: Start: 08-05-2019 Radiologic examination pelvis 1/2 views Romeo Stone Work Phone: Start: 08-05-2019 ADD ON LAB TEST Romeo Stone Work Phone: Start: 08-05-2019 POCT VENOUS Romeo Stone Work Phone: Start: 08-05-2019 Assay of lactate Romeo Stone Work Phone: Start: 08-05-2019 Drug screen class list a Romeo Stone Work Phone: Start: 08-05-2019 Culture bacterial blood aerobic w/id isolates Romeo Stone Work Phone: Start: 08-05-2019 Assay of ammonia Romeo Stone Work Phone: Start: 08-05-2019 Assay of ethanol Romeo Stone Work Phone: Start: 08-05-2019 Assay of magnesium Romeo Stone Work Phone: Start: 08-05-2019 Assay of prolactin Romeo Cannonhta Work Phone: Start: 08-05-2019 Basic metabolic panel calcium total Romeo Stone Work Phone: Start: 08-05-2019 Blood count complete auto&auto difrntl wbc Romeo Stone Work Phone: Start: 08-05-2019 Hepatic function panel Romeo Stone Work Phone: Start: 07-15-2019 Radex humerus minimum 2 views Braxton watkins Work Phone: Plan of Treatment Date Care Activity Detail Author Start: 08-26-2019 End: 08-26-2019 Nurse Only [facility] Start: 08-04-2019 Hepatitis A vaccine (2 of 2 - Risk 2-dose series) Hepatitis A vaccine (2 of 2 - Risk 2-dose series) [place] Start: 05-09-2019 Influenza vaccination Flu vaccine (#1) [place] Start: 05-05-2017 Breast cancer screen Breast cancer screen [place] Start: 03-23-2017 DTaP/Tdap/Td vaccine (2 - Td) DTaP/Tdap/Td vaccine (2 - Td) [place] Start: 12-17-2016 Lipid screen Lipid screen [place] Start: 2010 Colon cancer screen colonoscopy Colon cancer screen colonoscopy [place] Start: 2010 Shingles Vaccine (1 of 2) Shingles Vaccine (1 of 2) [place] Start: 1979 Hepatitis B vaccine (1 of 3 - Risk 3-dose series) Hepatitis B vaccine (1 of 3 - Risk 3-dose series) [place] Start: 1975 HIV screen HIV screen [place] Start: 1960 Hepatitis C screen Hepatitis C screen [place] End: 08-10-2019 CBC CBC Lab Routine Daily for 5 Days starting 08/06/2019 until 08/10/2019, 2 completed [place] Immunizations Immunization Date Immunization Notes Care Provider Swathi wiseman 11-06-2016 influenza, injectabl e, quadrivalent, contains preservative [place], [place] 07-11-2015 influenza virus vacc ine, unspecified formulation [place], [place] 07-29-2007 Influenza Vaccine, unspecified formulation [place] 07-29-2007 pneumococcal polysac charide vaccine, 23 valent [place] 03-23-2007 tetanus toxoid, redu daniel diphtheria toxoid, and acellular pertussis vaccine, adsorbed [place] 07-02-2006 Influenza Vaccine, unspecified formulation [place] Payers Date Payer Category Payer Unknown [facility] xxxxxxxxxxxx 2015-Present [phone] [address] [place] [address] xxxxxxxxxxxx [id number] 1960 Unknown [id number] 1960 Unknown [id number] 1960 Unknown [id number] 1960 Unknown [id number] 1960 Unknown [id number] 1960 Unknown [id number] 1960 Unknown [id number] Unknown [id number] Social History Date Type Detail Facility Start: 06-10-2019 End: 08-05-2019 Tobacco smoking status NHIS Current every day smoker [place] Start: 06-10-2019 End: 08-05-2019 Cigarettes smoked current (pack per day) - Reported [place] Start: 06-10-2019 End: 07-15-2019 Alcohol intake Yes [place] Start: 03-22-2016 Alcohol Comment OCC [facility] [place], [place] Sex Assigned At Not on file [place] Start: 07-15-2019 End: 08-05-2019 Alcohol intake Current drinker of alcohol (finding) [place] Start: 08-05-2019 Alcohol Comment pt drinks bonnie y to feel good [place] Start: 08-05-2019 Alcohol Comment pt drinks bonnie y to feel good [place] Work Phone: Summary Purpose Family History No Family History Records FoundNo Family History Records Found Advance Directives Documents on File Type Date Recorded 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 Good nutrition is important when healing from an illness, injury, or surgery. Follow any nutrition recommendations given to you during your hospital stay. ? If you were given an oral nutrition supplement while in the hospital, continue to take this supplement at home. You can take it with meals, in-between meals, and/or before bedtime. These supplements can be purchased at most local grocery stores, pharmacies, and [employer]-stores. ? If you have any questions about your diet or nutrition, call the hospital and ask for the dietitian. * Additional Instructions* Allyson Kirby MD - 08/07/2019 Please be mindful of seizure precautions: no swimming, no unmonitored baths, and, in general, no activities in which a sudden loss of consciousness could potentially cause severe injury to yourself or others (horseback riding, climbing trees, holding babies or small children, etc). Driving Risk: Having a seizure while driving puts both you and others on the road at risk for injury. Current state law requires a six month seizure free period before being able to drive. documented in this encounter History of Present Illness * Allyson Kirby MD - 08/07/2019 9:57 AM EST General Neurology Follow-up Date of Service: 08/07/2019 Chief complaint: Breakthrough seizure activity Subjective: No acute overnight events Medications: Scheduled Meds: albuterol-ipratropium 1 puff Inhalation TID fluticasone 1 puff Inhalation BID folic acid 1 mg Oral Daily therapeutic multivitamin-minerals 1 tablet Oral Daily nicotine 1 patch Transdermal Q24H pantoprazole 40 mg Oral QAM AC PARoxetine 20 mg Oral Daily phenytoin 100 mg Oral BID sodium chloride flush 10 mL Intravenous 2 times per day enoxaparin 40 mg Subcutaneous Daily folic acid, thiamine, multi-vitamin with vitamin K infusion Intravenous Daily Continuous Infusions: PRN Meds:LORazepam, oxyCODONE-acetaminophen, sodium chloride flush, ondansetron, LORazepam, LORazepam OR LORazepam OR LORazepam OR LORazepam OR LORazepam OR LORazepam OR LORazepam OR LORazepam Allergies Allergen Reactions Aspirin Shortness Of Breath Penicillins Anaphylaxis Amoxicillin-Pot Clavulanate Swelling Chantix [Varenicline] Codeine Other (See Comments) mental status change Enbrel [Etanercept] Methotrexate Derivatives Celexa [Citalopram Hydrobromide] Palpitations Objective: Exam: BP 124/72 Pulse 91 Temp 99 F (37.2 C) (Temporal) Resp 18 Wt 89 lb 12.8 oz (40.7 kg) SpO2 96% BMI 18.13 kg/m Neuro: General: awake and alert Cranial nerves: I: smell Not tested II: visual bloom Full to confrontation II: pupils Equal, round, reactive to light III,VII: ptosis None III,IV,: extraocular muscles Full ROM V: mastication Normal V: facial light touch sensation Normal V,VII: corneal reflex Present VII: facial muscle function - upper Normal VII: facial muscle function - lower Normal VIII: hearing Normal IX: soft palate elevation Normal IX,X: gag reflex Present XI: trapezius strength 5/5 XI: sternocleidomastoid strength 5/5 XI: neck flexion strength 5/5 XII: tongue strength Normal Motor exam: normal strength, muscle mass, and tone in all extremities Sensation was normal to light touch Deep tendon reflexes were 2+ bilaterally Plantar responses were flexor bilaterally Cerebellar exam noted no tremors noted Gait:WNL Data: LABS: Recent Results (from the past 24 hour(s)) Comprehensive Metabolic Panel Collection Time: 08/07/19 5:56 AM Result Value Ref Range Sodium 136 135 - 145 mmol/L Potassium 3.7 3.5 - 5.1 mmol/L Chloride 107 98 - 107 mmol/L CO2 27 22 - 30 mmol/L Anion Gap 2 NA Glucose 109 (H) 70 - 100 mg/dL BUN 6 (L) 7 - 20 mg/dL CREATININE 0.42 (L) 0.52 - 1.25 mg/dL eGFR >60.0 >60 mL/min EGFR IF NonAfrican Portuguese >60.0 >60 mL/min Calcium 8.1 (L) 8.4 - 10.4 mg/dL Albumin,Serum 3.2 (L) 3.5 - 5.0 g/dL Total Protein 6.1 (L) 6.3 - 8.2 g/dL Total Bilirubin 0.3 0.2 - 1.3 mg/dL Alkaline Phosphatase 112 38 - 126 U/L ALT 28 13 - 69 U/L AST 30 15 - 46 U/L CBC Collection Time: 08/07/19 5:56 AM Result Value Ref Range WBC 6.1 3.6 - 10.7 10*3/uL RBC 3.49 (L) 3.80 - 5.20 10*6/uL Hemoglobin 11.0 (L) 11.7 - 16.0 g/dL Hematocrit 33.5 (L) 35.0 - 47.0 % MCV 96.0 79.0 - 98.0 fL MCH 31.6 26.0 - 34.0 pg MCHC 32.9 32.0 - 36.0 % RDW 12.4 11.5 - 14.5 % Platelets 125 (L) 140 - 440 10*3/uL MPV 8.1 7.4 - 10.4 fL RADIOLOGY: CT Head w/o contrast 08/05/19 No acute findings. MRI Brain w/wo contrast 08/06/19 No evidence of acute ischemia or other acute intracranial abnormality. There is a solitary nonspecific focus of signal hyperintensity in the left cerebral hemisphere, of unknown clinical significance. Routine EEG 08/06/19 Normal EEG in the awake state. No indication of underlying seizure tendency, but epilepsy cannot be ruled out by EEG. Please correlate clinically. Neuroimaging and labs personally reviewed Assessment/Plan: 58 yo female with with past medical history significant for history of seizure, alcoholic cirrhosis, RLS, raynaud's syndrome, tobacco use, BPD, depression, anxiety presents with complaint/s of seizure activity. Breakthrough seizure activity -In the setting of recent ETOH use, chronic percocet use, positive amphetamine on UDS, subtherapeutic PHT level -CT head negative for acute abn -MRI brain negative for acute abn -EEG negative for seizure activity -As patient reports chronic history of seizures and skilled nursing AED treatment, believe AED should be continued. -Did discuss switch to LEV for liver sparing agent and better safety profile -Patient states for now she would like to stay on PHT as she has been on it for years and toleratesit -Her LFT's are WNL today -Did caution against use of the ETOH when on PHT -Will continue PHT at 100mg BID and continue to monitor LFT's while on it -Maintain seizure precautions (as below) MRI Brain abnormality -Hyperintense signal abnormality -Incidental, and perhaps chronic -Would have patient follow up with outpatient neurology and repeat imaging in 4- 6 weeks to ensure stability Polysubstance use -ETOH/tobacco/amphetamine -ADM following -Thiamine/folate supplementation History of cirrhosis -LFT's checked, today WNL -Ammonia WNL Depression/anxiety -Continue home SSRI No further neurologic workup required at this time. Will sign off, please call if questions. Seizure precautions Please be mindful of seizure precautions: no swimming, no unmonitored baths, and, in general, no activities in which a sudden loss of consciousness could potentially cause severe injury to yourself or others (horseback riding, climbing trees, holding babies or small children, etc). Driving Risk: Having a seizure while driving puts both you and others on the road at risk for injury. Current state law requires a six month seizure free period before being able to drive. * Jayde Lovett [facility] - 08/07/2019 9:06 AM EST Patient Evaluation Form The patient is currently receiving PRN Combivent Points 0 1 2 3 4 Points Totals Pulmonary Status (-/+) History Smoking history < 20 pack years Smoking history > 20 pack years Pulmonary Disorder (acute or chronic) Severe or Chronic with Exacerbation 3 Surgical Status No Surgery Trach PEG General Surgery Lower Abdominal Thoracic or Upper Abdominal Thoracic with Pulmonary Disorder 0 Chest X-ray Clear None Ordered Chronic Changes CXR results Pending Infiltrates, atelectasis, pleural effusion, or edema Infiltrates in more than one lobe Infiltrate + Atelectasis, &/or pleural effusion 0 Respiratory Pattern Regular, RR = 12-20 Increased, RR = 21-25 YEN, irregular, or RR = 26-30 Decreased FEV1 or RR = 31-35 Severe SOB, used of of accessory muscles, or RR = > 35 0 Mental Status Alert, oriented, cooperative Confused, but follows commands Lethargic or un-able to follow commands Obtunded Comatose 0 Breath Sounds Clear to auscultation Decreased unilaterally or in bases only Decreased bilaterally Crackles or intermittent wheezes Wheezes 1 Cough Strong, spontaneous, & nonproductive Strong, spontaneous, & productive Weak, nonproductive Weak, productive or with wheezes No spontaneous cough or may require suctioning 0 Level of Activity Ambulatory Ambulatory with Assist Non-ambulatroy Paraplegic Quadriplegic 1 Triage 1 > 20 pts Triage 2 16-20 pts Triage 3 11- 15 pts Triage 4 6 - 10 pts Triage 5 0 - 5 pts TOTAL POINTS = 5 Triage Score = 5 Changing Therapy to TID, pt home schedule * Lea Romo - 08/07/2019 8:21 AM EST Nutrition rescreen completed. Patient referred to the Dietitian. * Karin Cole MD - 08/06/2019 10:46 AM EST Hospitalist Progress Note 08/06/2019 10:46 AM [phone]: Please page id [phone] for patient care issues. [phone]: Please page [facility] night Hospitalist for any issues. Subjective: Admit Date: 08/05/2019 PCP: Adithya Weiss MD Interval History: No overnight issues. Patient cannot recall why she is in the hospital. She does not recall going to [facility]. She says her last seizure was in the . She denies taking amphetamines but admits to taking some amino acid, muscle strengthener from her boyfriend, but she does not remember what it was. She admits to drinking about 6beers a day, often times in the morningand throughout the day. She has had alcohol withdrawal before but does not remember having seizure with it. Denies chest pain, sob, abdominal pain, nausea, vomiting, diarrhea, constipation, fevers, or chills. DIET GENERAL; Patient Vitals for the past 96 hrs (Last 3 readings): Weight 08/05/19 1653 89 lb 12.8 oz (40.7 kg) 24HR INTAKE/OUTPUT: Intake/Output Summary (Last 24 hours) at 08/06/2019 1046 Last data filed at 08/06/2019 0824 Gross per 24 hour Intake 400 ml Output 575 ml Net -175 ml Medications: fluticasone 1 puff Inhalation BID folic acid 1 mg Oral Daily gabapentin 200 mg Oral BID therapeutic multivitamin-minerals 1 tablet Oral Daily nicotine 1 patch Transdermal Q24H pantoprazole 40 mg Oral QAM AC PARoxetine 20 mg Oral Daily phenytoin 100 mg Oral BID sodium chloride flush 10 mL Intravenous 2 times per day enoxaparin 40 mg Subcutaneous Daily folic acid, thiamine, multi-vitamin with vitamin K infusion Intravenous Daily Objective: Vitals: BP (!) 124/49 Pulse 92 Temp 98.5 F (36.9 C) (Temporal) Resp 20 Wt 89 lb 12.8 oz (40.7 kg) SpO2 99% BMI 18.13 kg/m Pulse Ox: SpO2 Av.8 % Min: 83 % Max: 100 % Supplemental O2: General appearance: No apparent distress, appears stated age and cooperative with exam HEENT: Normal cephalic, atraumatic without obvious deformity. Pupils equal, round, and reactive to light. Extra ocular muscles intact. Conjunctivae/corneas clear. Neck: Supple, with full range of motion. No jugular venous distention. Trachea midline. No lymphadenopathy. Respiratory: Normal respiratory effort. Clear to auscultation, bilaterally without Rales/Wheezes/Rhonchi. Cardiovascular: Regular rate and rhythm with normal S1/S2 without murmurs, rubs or gallops. Abdomen: Soft, non-tender, non-distended with normal bowel sounds. No rebound or guarding. Musculoskeletal: No clubbing, cyanosis or edema bilaterally. Full range of motion without deformity. Skin: Skin color, texture, turgor normal. No rashes or lesions. Neurologic: Neurovascularly intact without any focal sensory/motor deficits. Cranial nerves: II-XIIintact, grossly non-focal. LABS: CBC: Recent Labs 08/05/19 1149 08/06/19 0332 WBC 9.5 5.6 RBC 3.71* 3.46* HGB 11.9 11.1* HCT 34.3* 32.6* MCV 92.6 94.1 RDW 11.9 12.5 PLT 175 152 BMP: Recent Labs 08/05/19 1149 08/06/19 0332 NA 134* 134* K 3.6 3.3* CL 99 104 CO2 23 22 BUN 11 8 CREATININE 0.53 0.51* GLUCOSE 90 65* CALCIUM 8.9 7.6* ANIONGAP 12 8 LIVER PROFILE: Recent Labs 08/05/19 1149 08/06/19 0332 AST 41 33 ALT 46 33 BILITOT 0.4 0.4 ALKPHOS 191* 122 LABALBU 3.9 3.2* PROT 6.7 5.7* PT/INR: No results for input(s): PROTIME, INR in the last 72 hours. CARDIAC ENZYMES: No results for input(s): TROPONINI in the last 72 hours. Procalcitonin: No results found for: PROCAL Glucose: Recent Labs 08/06/19 0515 08/06/19 0642 POCGLU 71 109* Assessment / Plan 1. Seizure with h/o seizure disorder - Phenytoin level low - Neuro consulted 2. EtOH use / withdrawal - no symptoms of withdrawal currently, has not needed any ativan - cont CIWA, ativan prn, Addiction med consulted 3. Encephalopathy - metabolic / postictal / given ativan in ER yesterday - now improved 4. COPD 5. Tobacco use - recommend cessation once awake 6. Hx of Spiral fracture of right humerus May 2019 7. Depression/AAnxiety - Paxil 8. Chronic pain - gets Percocet 5mg 4 times a day prescription every month - urine drug screen neg for opiates 9. Ativan 0.5mg tid prescribed every month - urine drug screen neg for benzo 10. Amphetamines in urine drug screen + 11. GERD -am labs, replace lytes prn -increase activity -DVT prophylaxis: [x] Lovenox [] Heparin [] SCDs [x] Encourage ambulation [] Already on Anticoagulation Advance Directive: Full Code Discharge planning: TBD Karin Cole MD Division of Hospitalist Medicine Inpatient Medical Services PAGER: [phone] * Nneka Beauchamp RN - 08/06/2019 8:11 AM EST Pt declines Neurontin. States she quit taking this med several months ago due to pt feeling it started her legs to become restless, like restless leg syndrome. documented in this encounter Assessments Diagnosis Status epilepticus (HCC)- Primary Epileptic grand mal status Confusion Unspecified psychosis Seizure (HCC) Other convulsions Additional Source Comments INFORMATION SOURCE (unrecogn ized section and content) DATE CREATED AUTHOR AUTHOR'S ORGANIZ ATION 06/21/2021 [facility] Reason for Visit (unrecogniz ed section and content) FOR RECORDS PERTAINING TO PATIENTS WHO ARE OR HAVE BEEN ENROLLED IN A CHEMICAL DEPENDENCY/SUBSTANCEABUSE PROGRAM, SOME INFORMATION MAY BE OMITTED. This clinical summary was aggregated from multiple sources. Caution should be exercised in using it in the provision of clinical care. This summary normalizes information from multiple sources, and as a consequence, information in this document may materially change the coding, format and clinical context of patient data. In addition, data may be omitted in some cases. CLINICAL DECISIONS SHOULD BE BASED ON THE PRIMARY CLINICAL RECORDS. [employer] [facility]. provides no warranty or guarantee of the accuracy or completeness of information in this document.
== END 2023-09-09 10:45 | disposition home or self-care (01) ==
PROVIDERS: Emergency Provider Emergency Medicine; Visit Provider Emergency Medicine
DX: F41.9 Anxiety disorder, unspecified (principal); E11.9 Type 2 diabetes mellitus without complications; K21.9 Gastro-esophageal reflux disease without esophagitis; F17.210 Nicotine dependence, cigarettes, uncomplicated; R07.89 Other chest pain; I25.2 Old myocardial infarction; E78.00 Pure hypercholesterolemia, unspecified; Z79.899 Other long term (current) drug therapy; Z90.710 Acquired absence of both cervix and uterus; Z90.49 Acquired absence of other specified parts of digestive tract
CPT/HCPCS: 71045; 80048; 84484; 85025; 93005; 96361; 96374; 99284; J7030; A4216; J2405

== ENCOUNTER 2023-09-23 10:16 | Outpatient (RCR) | payer MEDICAID, SELFPAY ==
[2023-09-08 00:06] VITALS: BP 131/68; PULSE 77; RESP 18; TEMP 36.7
== END 2023-10-08 23:59 ==
LOC: NS 10:16
PROVIDERS: Referring Provider Podiatrist; Visit Provider Nurse Practitioner Family
DX: Z71.3 Dietary counseling and surveillance (principal); E46 Unspecified protein-calorie malnutrition; E11.9 Type 2 diabetes mellitus without complications; J44.9 Chronic obstructive pulmonary disease, unspecified; E78.5 Hyperlipidemia, unspecified
CPT/HCPCS: 97803

== ENCOUNTER 2023-09-29 09:30 | Outpatient (RCR) | payer MEDICAID, SELFPAY ==
[2023-09-08 00:41] VITALS: BP 140/63; PULSE 106; RESP 16; TEMP 36.2
[2023-09-15 09:15] VITALS: BP 150/74; PULSE 80; RESP 18; TEMP 36.3
--- NOTE | 2023-09-15 11:58 | PCM.WC.PN ---
History of Present Illness Date of Service: 09/15/23 Chief Complaint: nonhealing ulcer left anterior leg. History of Wound: Surgery 12/03/22 - surgical preparation left anterior leg with incision and drainage and excisional debridement nonhealing infected MRSA ulcer and partial ostectomy tibia for osteomyelitis. Wound care - Silver dressings followed by Tubigrip. Operative Tissue and bone cultures positive for MRSA. Treated with IV Vancomycin. Infectious Diseases consulted. Pathology - pieces of bone with chronic inflammation and reactive changes, negative for acute osteomyelitis. Prealbumin from 12/04/22 was 14.5. Encouraged nutritional supplementation with protein to help with the healing process. HgbA1c from 07/19/22 was 5.7. HgbA1c needs to be less than 8 for elective surgeries. MRI left leg done on08/08/22 - Sinus tracts from the marrow of the mid to distal tibial diaphysis to the skin at the medial aspect. Marrow edema throughout the majority of the tibia. Findings concerning for osteomyelitis. Arterial study completed 11/04/22. Triphasic Doppler waveforms at ankle level bilaterally. Right MARI by dorsalis pedis = 1.15.? Left MARI by dorsalis pedis = 1.28. There is no evidence of significant arterial occlusive disease in the lower extremities bilaterally. Today she denies complaints of fever. Her appetite is ok. Progress of Wound: Ulcer is slightly smaller. Bone is still exposed. Objective Data Objective Data Vital Signs: Vital Signs Temp Pulse Resp BP O2 Del Method 97.4 F L 80 18 150/74 H Room Air 09/15/23 09:15 09/15/23 09:15 09/15/23 09:15 09/15/23 09:15 09/15/23 09:15 Oxygen Delivery Method Room Air Charges/Coding Procedures Integumentary [id number]: [id number] Miryam musc/fascia 20 sq cm/< Debridement Note Debridement Note Wound debrided: #8 Left anterior leg. Laterality: Left Wound Grade/Stage: Stage IV Type of Debridement: Excisional debridement Anesthesia Used: 4% Lidocaine Solution Depth: Down to and including healthy tissue, in the subcutaneous layer, to muscle and to bone (bone exposed but not debrided.) Percentage of wound debrided: 100 Instrument Used: 3mm curette Tissue Removed: Non viable tissue, slough into the subcutaneous tissue and muscle. Severity: Fat Layer Exposed (muscle is exposed. bone is exposed but not debrided.) Amount of bleeding with debridement: Mild Bleeding Controlled with: Pressure and Compression and gauze Patient tolerated procedure: Patient tolerated procedure well Debridement Free Text: Bone exposed but not debrided. Post-Debridement Measurements and Additional Note: Post-Debridement Measurements/Treatment - Nurse 1 - General Ulcer Assessment Start: 09/15/23 09:10 Freq: Status: Active Protocol: ELENA Activity Type Activity Date Activity User E-sign Co-sign Detail Recorded Client Recorded Date Recorded By Document 09/15/23 09:15 KW Desktop 09/15/23 09:23 KW 09/15/23 09:15 WC - Today's Visit Information Type of service Initial Visit Arrival Mode Ambulatory Patient Identification Verified (Name & Yes ) Vital Signs Temperature (97.8 F-99.1 F) 97.4 F L Temperature Source Temporal Pulse Rate (60-100) 80 Pulse Location Monitor Respiratory Rate (12-18) 18 Respiratory rate source Observation Oxygen Delivery Method Room Air Blood Pressure (90/60-120/80) 150/74 H Blood Pressure Mean (mm Hg) 99 Source Monitor Position Semi-Fowlers Blood Pressure Location Left Arm History Since Last Visit- (Skip if this is Patient's initial visit) Have you changed medications since your No last visit? Any new allergies or adverse reactions No Had a fall/change in ADL's that may No increase risk of falls Signs or symptoms of abuse and/or No neglect since last visit Have you been in the hospital since your No last visit? Has dressing in place as prescribed Yes Has compression in place as prescribed Yes Has offloadiing in place as prescribed No Experienced any changes in pain level or No management Left Footwear Regular Shoe Right Footwear Regular Shoe Pain Scale: 0-10 Numeric Is Patient Pain Free? Yes - Nurse 1 - General Ulcer Measurement Start: 09/15/23 09:10 Freq: Status: Active Protocol: Activity Type Activity Date Activity User E-sign Co-sign Detail Recorded Client Recorded Date Recorded By Document 09/15/23 09:15 KW [employer] 09/15/23 09:23 KW 09/15/23 09:15 Wound Center Nurse 1 #8 L Tenorio post-op -Current Size (cm) - Length 1.7 -Current Size (cm) - Width 0.9 -Current Size (cm) - Depth 0.3 -Total Square Cm 1.53 -Exudate Amt Medium -Exudate Type Serosanguineous -Wound Margin Distinct, Outline Attached -Granulation Amt Small (1-33%) -Granulation Quality [place] -Necrosis Amt Large (67-100%) -Necrotic Tissue Type Adherent Slough -Texture (Mima-wound Skin Appearance) Assessed -Moisture (Mima-wound Skin Appearance) Assessed -Color (Mima-wound Skin Appearance) Assessed -Temperature (Mima-wound Skin No Abnormality Appearance) (Pt Warm) -Ulcer Cleansing Rinsed/ Irrigated with Saline -Anesthetic Used 5% Lidocaine Gel Left Calf (cm) 27.9 Left Ankle (cm) 18.4 WC - Nurse 2 - General Ulcer CM Notes Start: 09/15/23 09:10 Freq: Status: Active Protocol: Activity Type Activity Date Activity User E-sign Co-sign Detail Recorded Client Recorded Date Recorded By Document 09/15/23 09:53 Laptop 09/15/23 09:55 09/15/23 09:53 Wound Center Nurse 2 #8 L Tenorio post-op -Time 09:53 -Correct Patient Yes -Correct Side, Site, Position Yes -Correct Procedure Yes -Procedure Performed Yes -Type of Procedure Debridement -Clinical Debridement Muscle / Fascia -Tissue Removed Muscle -Post Debridement (cm) - Length 1.8 -Post Debridement (cm) - Width 1.0 -Post Debridement (cm) - Depth 0.4 -Total Square (Post) (cm) 1.80 -Area of Debridement (cm) - Length 1.8 -Area of Debridement (cm) - Width 1.0 -Total Square (Area) (cm) 1.80 -Tunneling No -Undermining/Tunneling No -Circular Undermining No -Wound/Ulcer Outcome Not Healed -Ulcer Cleansing Rinsed/ Irrigated with Saline -Foul Odor after Cleansing No -Bioengineered Tissue No -Bleeding Controlled with Pressure -Treatment Response Procedure Tolerated Well -Offloading No -Debridement - Muscle / Fascia, 1st Yes 20sq cm Pain Scale: 0-10 Numeric Is Patient Pain Free? Yes - Nurse 3 - General Ulcer D/C NN Start: 09/15/23 09:10 Freq: Status: Active Protocol: Activity Type Activity Date Activity User E-sign Co-sign Detail Recorded Client Recorded Date Recorded By Document 09/15/23 10:06 BMF Desktop 09/15/23 10:06 BMF Edit Result 09/15/23 10:06 BMF (1) Desktop 09/15/23 10:08 BMF (1) Left - Tubular Bandage => Double Layer - Size of Tubigrip Used => Size C - Size C ($) => 2 - Other => sent extra pair 09/15/23 10:06 Wound Care Center Nurse 3 #8 L Tenorio post-op -Ulcer Cleansing Rinsed/ Irrigated with Saline -Foul Odor after Cleansing No -Primary Dressing Applied Aquacel AG 2x2, Mepilex Border -Other 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: CODE(S): L97.926 - Non-pressure chronic ulcer of unspecified part of left lower leg with bone involvement without evidence of necrosis (2) MRSA (methicillin resistant Staphylococcus aureus) infection: CODE(S): A49.02 - Methicillin resistant Staphylococcus aureus infection, unspecified site (3) Osteomyelitis: CODE(S): M86.9 - Osteomyelitis, unspecified (4) Sequelae of open wound of left lower extremity: CODE(S): S81.802S - Unspecified open wound, left lower leg, sequela (5) DM type 2, goal HbA1c < 7%: CODE(S): E11.9 - Type 2 diabetes mellitus without complications (6) Smoker: CODE(S): F17.200 - Nicotine dependence, unspecified, uncomplicated PLAN: Plan Wound care - Aquacel-Ag dressing covered with Mepilex/[place] SAP daily. Compression - Tubigrip. Prealbumin from 12/04/22 was 14.5. Encouraged nutritional supplementation with protein to help the healing process. HgbA1c from 07/19/22 was 5.7. The HgbA1c needs to be less than 8 for elective surgeries. The ulcer has reached a plateau. There is a small area of exposed bone. It will not heal without complex flap reconstruction. HBO may be helpful both before and after surgery for chronic refractory osteomyelitis. She had MRSA in the ulcer at the time of surgery in November,. Will need another culture before her next surgery. Arterial study completed 11/04/22. Triphasic Doppler waveforms at ankle level bilaterally. Right MARI by dorsalis pedis = 1.15.? Left MARI by dorsalis pedis = 1.28. There is no evidence of significant arterial occlusive disease in the lower extremities bilaterally. Encouraged patient to stop smoking as it may have deleterious effects on wound healing. Discussed nicotine patches to stop smoking. Ideally she needs to stop smoking to give this ulcer and future surgeries the best possible chance of healing. Had an in depth discussion about stopping smoking. Discussed that she can start to slowly wean herself off of her cigarettes or discuss with her PCP about either using nicotine patches to stop smoking or other medication options. She states that she will think about it. Followup [address] Jones's previous note: Ideally the patient needs another microvascular free tissue transfer. Right now she would have to go to a tertiary center for that surgery. She would like to stay local if at all possible. May be able to do a local fasciocutaneous flap followed by skin graft of the donor area. I think the ulcer is just a tad too low for a soleus muscle flap. Will evaluate at the time of surgery. There may be issues with healing because of the scarring present. Anteriorly there is the muscle flap with skin graft. Could design the flap through the lateral edge of the muscle flap. Would base the fasciocutaneous flap of the medial perforators based on the tibial vessels. She is a smoker. Would proceed with a first stage delay which should help dilate the perforators to the skin that are constricted from the nicotine. The delay procedure can be done at the time of the operative debridement. At the time of that surgery, will recheck a Prealbumin and recheck a HgbA1c. Surgery would be done under general anesthesia with a surgical observation overnight stay in the hospital. Patient was informed of the risks and complications of the procedure including alternatives to surgery. These were discussed with the patient personally. Patient voices understanding and wishes to proceed. Potential risks and complications included but not inclusive of bleeding, infection, seroma, hematoma, bruising, swelling, prolonged need for drains, loss of sensation to skin, partial or complete loss of the flap and/or skin graft, wound breakdown, need for wound care, poor scarring, poor aesthetic outcome, intra operative cardiac or neurologic events, DVT, PE, and reaction to anesthesia. Encouraged patient to stop smoking as it may have deleterious effects on wound healing. She states she smokes one pack per day. 20 cigarettes. Each week she decreases her cigarette usage by one cigarette. By doing this slowly, there is a better chance that she can quit not only to improve healing at the time of surgery but hopefully quit permanently.
[2023-09-29 09:04] VITALS: BP 144/51; PULSE 85; RESP 16; TEMP 36.9
--- NOTE | 2023-09-29 10:03 | PN.PCM_ITS ---
History of Present Illness Date of Service: 09/29/23 Chief Complaint: nonhealing ulcer left anterior leg. History of Wound: Surgery 12/03/22 - surgical preparation left anterior leg with incision and drainage and excisional debridement nonhealing infected MRSA ulcer and partial ostectomy tibia for osteomyelitis. Wound care - Silver dressings followed by Tubigrip. Operative Tissue and bone cultures positive for MRSA. Treated with IV Vancomycin. Infectious Diseases consulted. Pathology - pieces of bone with chronic inflammation and reactive changes, negative for acute osteomyelitis. Prealbumin from 12/04/22 was 14.5. Encouraged nutritional supplementation with protein to help with the healing process. HgbA1c from 07/19/22 was 5.7. HgbA1c needs to be less than 8 for elective surgeries. MRI left leg done on08/08/22 - Sinus tracts from the marrow of the mid to distal tibial diaphysis to the skin at the medial aspect. Marrow edema throughout the majority of the tibia. Findings concerning for osteomyelitis. Arterial study completed 11/04/22. Triphasic Doppler waveforms at ankle level bilaterally. Right MARI by dorsalis pedis = 1.15.? Left MARI by dorsalis pedis = 1.28. There is no evidence of significant arterial occlusive disease in the lower extremities bilaterally. Today she denies complaints of fever. Her appetite is ok. Progress of Wound: Ulcer is stable. Bone is still exposed. Objective Data Objective Data Vital Signs: Vital Signs Temp Pulse Resp BP O2 Del Method 98.4 F 85 16 144/51 H Room Air 09/29/23 09:04 09/29/23 09:04 09/29/23 09:04 09/29/23 09:04 09/29/23 09:04 Oxygen Delivery Method Room Air Charges/Coding Procedures Integumentary 111xxx-113xx: [id number] Miryam musc/fascia 20 sq cm/< Debridement Note Debridement Note Wound debrided: #8 Left anterior leg. Laterality: Left Wound Grade/Stage: Stage IV Type of Debridement: Excisional debridement Anesthesia Used: 4% Lidocaine Solution Depth: Down to and including healthy tissue, in the subcutaneous layer, to muscle and to bone (bone exposed but not debrided.) Percentage of wound debrided: 100 Instrument Used: 5mm curette Tissue Removed: Non viable tissue, slough into the subcutaneous tissue and muscle. Severity: Fat Layer Exposed (muscle is exposed. bone is exposed but not debrided.) Amount of bleeding with debridement: Mild Bleeding Controlled with: Pressure and Compression and gauze Patient tolerated procedure: Patient tolerated procedure well Debridement Free Text: Bone exposed but not debrided. Post-Debridement Measurements and Additional Note: Post-Debridement Measurements/Treatment YVETTE - Nurse 1 - General Ulcer Assessment Start: 09/15/23 09:10 Freq: Status: Active Protocol: ELENA Activity Type Activity Date Activity User E-sign Co-sign Detail Recorded Client Recorded Date Recorded By Document 09/15/23 09:15 KW Desktop 09/15/23 09:23 KW Document 09/29/23 09:04 BMF Desktop 09/29/23 09:13 BMF 09/15/23 09/29/23 09:15 09:04 WC - Today's Visit Information Type of service Initial Visit Follow-up Visit (Physician/COMPUTER MECHANIC ) Arrival Mode Ambulatory Ambulatory Transfer Assistance None Patient Identification Verified (Name & Yes Yes ) Patient Requires Transmission-Based No Precautions Vital Signs Temperature (97.8 F-99.1 F) 97.4 F L 98.4 F Temperature Source Temporal Temporal Pulse Rate (60-100) 80 85 Pulse Location Monitor Monitor Respiratory Rate (12-18) 18 16 Respiratory rate source Observation Observation Oxygen Delivery Method Room Air Room Air Blood Pressure (90/60-120/80) 150/74 H 144/51 H Blood Pressure Mean (mm Hg) 99 82 Source Monitor Monitor Position Semi-Fowlers Sitting Blood Pressure Location Left Arm Left Arm History Since Last Visit- (Skip if this is Patient's initial visit) Have you changed medications since your No No last visit? Any new allergies or adverse reactions No No Had a fall/change in ADL's that may No No increase risk of falls Signs or symptoms of abuse and/or No No neglect since last visit Have you been in the hospital since your No No last visit? Has dressing in place as prescribed Yes Yes Has compression in place as prescribed Yes Yes Has offloadiing in place as prescribed No N/A Experienced any changes in pain level or No No management Left Footwear Regular Shoe Regular Shoe Right Footwear Regular Shoe Regular Shoe Pain Scale: 0-10 Numeric Is Patient Pain Free? Yes Yes YVETTE Cruz Nurse 1 - General Ulcer Measurement Start: 09/15/23 09:10 Freq: Status: Active Protocol: Activity Type Activity Date Activity User E-sign Co-sign Detail Recorded Client Recorded Date Recorded By Document 09/15/23 09:15 KW Desktop 09/15/23 09:23 KW Document 09/29/23 09:04 BM Desktop 09/29/23 09:13 BMF 09/15/23 09/29/23 09:15 09:04 Wound Center Nurse 1 #8 L Tenorio post-op -Combined with other wound No -Current Size (cm) - Length 1.7 2 -Current Size (cm) - Width 0.9 0.8 -Current Size (cm) - Depth 0.3 0.3 -Total Square Cm 1.53 1.6 -Date of Last Picture (Recall this 09/29/23 field) -Photo Taken Yes -Epithelialization None Present -Tunneling No -Undermining/Tunneling No -Circular Undermining No -Exudate Amt Medium Large -Exudate Type Serosanguineous Yellow/Green -Wound Margin Distinct, Distinct, Outline Outline Attached Attached -Granulation Amt Small (1-33%) None Present (0 %) -Granulation Quality Sprague -Slough/Fibrin Yes -Necrosis Amt Large (67-100%) Large (67-100%) -Necrotic Tissue Type Adherent Slough Adherent Slough -Texture (Mima-wound Skin Appearance) Assessed Assessed, Localized Edema ,Scarring -Moisture (Mima-wound Skin Appearance) Assessed Assessed -Color (Mima-wound Skin Appearance) Assessed Assessed -Temperature (Mima-wound Skin No Abnormality No Abnormality Appearance) (Pt Warm) (Pt Warm) -Tenderness on Palpation (Mima-wound No Skin Appearance) -Ulcer Cleansing Rinsed/ Rinsed/ Irrigated with Irrigated with Saline Saline -Foul Odor after Cleansing No -Anesthetic Used 5% Lidocaine 5% Lidocaine Gel Gel Lower Limb Edema Present Yes Left Calf (cm) 27.9 28 Left Ankle (cm) 18.4 18.3 WC - Nurse 2 - General Ulcer CM Notes Start: 09/15/23 09:10 Freq: Status: Active Protocol: Activity Type Activity Date Activity User E-sign Co-sign Detail Recorded Client Recorded Date Recorded By Document 09/15/23 09:53 Laptop 09/15/23 09:55 Document 09/29/23 09:40 Laptop 09/29/23 09:42 09/15/23 09/29/23 09:53 09:40 Wound Center Nurse 2 #8 L Tenorio post-op -Time 09:53 09:40 -Correct Patient Yes Yes -Correct Side, Site, Position Yes Yes -Correct Procedure Yes Yes -Procedure Performed Yes Yes -Type of Procedure Debridement Debridement -Clinical Debridement Muscle / Fascia Muscle / Fascia -Tissue Removed Muscle Muscle,Fascia -Post Debridement (cm) - Length 1.8 1.4 -Post Debridement (cm) - Width 1.0 1.1 -Post Debridement (cm) - Depth 0.4 0.4 -Total Square (Post) (cm) 1.80 1.54 -Area of Debridement (cm) - Length 1.8 1.4 -Area of Debridement (cm) - Width 1.0 1.1 -Total Square (Area) (cm) 1.80 1.54 -Tunneling No No -Undermining/Tunneling No No -Circular Undermining No No -Wound/Ulcer Outcome Not Healed Not Healed -Ulcer Cleansing Rinsed/ Rinsed/ Irrigated with Irrigated with Saline Saline -Foul Odor after Cleansing No No -Bioengineered Tissue No No -Bleeding Controlled with Pressure Pressure -Treatment Response Procedure Procedure Tolerated Well Tolerated Well -Offloading No No -Debridement - Muscle / Fascia, 1st Yes Yes 20sq cm Pain Scale: 0-10 Numeric Is Patient Pain Free? Yes Yes - Nurse 3 - General Ulcer D/C NN Start: 09/15/23 09:10 Freq: Status: Active Protocol: Activity Type Activity Date Activity User E-sign Co-sign Detail Recorded Client Recorded Date Recorded By Document 09/15/23 10:06 [facility] Desktop 09/15/23 10:06 [facility] Edit Result 09/15/23 10:06 BMF (1) Desktop 09/15/23 10:08 BMF Document 09/29/23 09:43 JF Laptop 09/29/23 09:44 JF (1) Left - Tubular Bandage => Double Layer - Size of Tubigrip Used => Size C - Size C ($) => 2 - Other => sent extra pair 09/15/23 09/29/23 10:06 09:43 Wound Care Center Nurse 3 #8 L Tenorio post-op -Ulcer Cleansing Rinsed/ Rinsed/ Irrigated with Irrigated with Saline Saline -Foul Odor after Cleansing No No -Primary Dressing Applied Aquacel AG 2x2, Aquacel AG 2x2 Mepilex Border -Other Dressing per dl solder making laborer -Primary Dressing Covered/Secured with Dry Gauze & Roll Gauze, Secured with Tape -Aquacel AG 2x2 1 1 -Mepilex Border 1 Left -Tubular Bandage Double Layer Double Layer -Size of Tubigrip Used Size C Size C -Size C ($) 2 2 -Other sent extra pair Treatment Response Procedure Tolerated Well Pain Scale: 0-10 Numeric Is Patient Pain Free? 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: CODE(S): L97.926 - Non-pressure chronic ulcer of unspecified part of left lower leg with bone involvement without evidence of necrosis (2) MRSA (methicillin resistant Staphylococcus aureus) infection: CODE(S): A49.02 - Methicillin resistant Staphylococcus aureus infection, unspecified site (3) Osteomyelitis: CODE(S): M86.9 - Osteomyelitis, unspecified (4) Sequelae of open wound of left lower extremity: CODE(S): S81.802S - Unspecified open wound, left lower leg, sequela (5) DM type 2, goal HbA1c < 7%: CODE(S): E11.9 - Type 2 diabetes mellitus without complications (6) Smoker: CODE(S): F17.200 - Nicotine dependence, unspecified, uncomplicated PLAN: Plan Wound care - Aquacel-Ag dressing covered with Mepilex/[place] SAP daily. Compression - Tubigrip. Prealbumin from 12/04/22 was 14.5. Encouraged nutritional supplementation with protein to help the healing process. HgbA1c from 07/19/22 was 5.7. The HgbA1c needs to be less than 8 for elective surgeries. The ulcer has reached a plateau. There is a small area of exposed bone. It will not heal without complex flap reconstruction. HBO may be helpful both before and after surgery for chronic refractory osteomyelitis. She had MRSA in the ulcer at the time of surgery in November,. Will need another culture before her next surgery. Arterial study completed 11/04/22. Triphasic Doppler waveforms at ankle level bilaterally. Right MARI by dorsalis pedis = 1.15.? Left MARI by dorsalis pedis = 1.28. There is no evidence of significant arterial occlusive disease in the lower extremities bilaterally. Encouraged patient to stop smoking as it may have deleterious effects on wound healing. Discussed nicotine patches to stop smoking. Ideally she needs to stop smoking to give this ulcer and future surgeries the best possible chance of healing. Had an in depth discussion about stopping smoking. Discussed that she can start to slowly wean herself off of her cigarettes or discuss with her PCP about either using nicotine patches to stop smoking or other medication options. She states that she will think about it. She has recently seen a Director Physical Therapy and is taking Jay and Ensure plus protein supplements as recommended. Followup [address] Jones's previous note: Ideally the patient needs another microvascular free tissue transfer. Right now she would have to go to a tertiary center for that surgery. She would like to stay local if at all possible. May be able to do a local fasciocutaneous flap followed by skin graft of the donor area. I think the ulcer is just a tad too low for a soleus muscle flap. Will evaluate at the time of surgery. There may be issues with healing because of the scarring present. Anteriorly there is the muscle flap with skin graft. Could design the flap through the lateral edge of the muscle flap. Would base the fasciocutaneous flap of the medial perforators based on the tibial vessels. She is a smoker. Would proceed with a first stage delay which should help dilate the perforators to the skin that are constricted from the nicotine. The delay procedure can be done at the time of the operative debridement. At the time of that surgery, will recheck a Prealbumin and recheck a HgbA1c. Surgery would be done under general anesthesia with a surgical observation overnight stay in the hospital. Patient was informed of the risks and complications of the procedure including alternatives to surgery. These were discussed with the patient personally. Patient voices understanding and wishes to proceed. Potential risks and complications included but not inclusive of bleeding, infection, seroma, hematoma, bruising, swelling, prolonged need for drains, loss of sensation to skin, partial or complete loss of the flap and/or skin graft, wound breakdown, need for wound care, poor scarring, poor aesthetic outcome, intra operative cardiac or neurologic events, DVT, PE, and reaction to anesthesia. Encouraged patient to stop smoking as it may have deleterious effects on wound healing. She states she smokes one pack per day. 20 cigarettes. Each week she decreases her cigarette usage by one cigarette. By doing this slowly, there is a better chance that she can quit not only to improve healing at the time of surgery but hopefully quit permanently.
== END 2023-10-08 23:59 | disposition home or self-care (01) ==
LOC: WC 09:30
PROVIDERS: Referring Provider Nurse Practitioner Family; Visit Provider Nurse Practitioner Family
DX: L97.822 Non-pressure chronic ulcer of other part of left lower leg with fat layer exposed (principal); M86.9 Osteomyelitis, unspecified; E11.9 Type 2 diabetes mellitus without complications; Z86.14 Personal history of Methicillin resistant Staphylococcus aureus infection; A49.02 Methicillin resistant Staphylococcus aureus infection, unspecified site; S81.802S Unspecified open wound, left lower leg, sequela; F17.200 Nicotine dependence, unspecified, uncomplicated
CPT/HCPCS: 11043

== ENCOUNTER 2023-10-20 08:59 | Outpatient (RCR) | payer MEDICAID, SELFPAY ==
[2023-10-09 00:54] VITALS: BP 144/51; PULSE 85; RESP 16; TEMP 36.9
[2023-10-20 09:04] VITALS: BP 130/62; PULSE 94; RESP 18; TEMP 36.8
--- NOTE | 2023-10-20 10:06 | PN.PCM_ITS ---
History of Present Illness Date of Service: 10/20/23 Chief Complaint: nonhealing ulcer left anterior leg. History of Wound: Surgery 12/03/22 - surgical preparation left anterior leg with incision and drainage and excisional debridement nonhealing infected MRSA ulcer and partial ostectomy tibia for osteomyelitis. Wound care - Silver dressings followed by Tubigrip. Operative Tissue and bone cultures positive for MRSA. Treated with IV Vancomycin. Infectious Diseases consulted. Pathology - pieces of bone with chronic inflammation and reactive changes, negative for acute osteomyelitis. Prealbumin from 12/04/22 was 14.5. Encouraged nutritional supplementation with protein to help with the healing process. HgbA1c from 07/19/22 was 5.7. HgbA1c needs to be less than 8 for elective surgeries. MRI left leg done on08/08/22 - Sinus tracts from the marrow of the mid to distal tibial diaphysis to the skin at the medial aspect. Marrow edema throughout the majority of the tibia. Findings concerning for osteomyelitis. Arterial study completed 11/04/22. Triphasic Doppler waveforms at ankle level bilaterally. Right MARI by dorsalis pedis = 1.15.? Left MARI by dorsalis pedis = 1.28. There is no evidence of significant arterial occlusive disease in the lower extremities bilaterally. Today she denies complaints of fever. Her appetite is ok. Progress of Wound: Stable. Objective Data Objective Data Vital Signs: Vital Signs Temp Pulse Resp BP O2 Del Method 98.3 F 94 18 130/62 H Room Air 10/20/23 09:04 10/20/23 09:04 10/20/23 09:04 10/20/23 09:04 10/20/23 09:04 Oxygen Delivery Method Room Air Prealbumin from 12/04/22 was 14.5. Encouraged nutritional supplementation with protein to help with the healing process.? Lab / Micro Data Attestation: I reviewed the patient's lab results. Lab results narrative: Patient has diabetes mellitus. HgbA1c from 07/19/22 was 5.7.? For elective surgeries, the HgbA1c needs to be less than 8. Charges/Coding Procedures Integumentary 111xxx-113xx: 15941 Miryam musc/fascia 20 sq cm/< (ICD-10 - L97.926, A49.02, M86.9, S81.802S, E11.9, F17.200) Debridement Note Debridement Note Wound debrided: #8 Left anterior leg. Laterality: Left Wound Grade/Stage: Stage IV Type of Debridement: Excisional debridement Anesthesia Used: 4% Lidocaine Solution Depth: Down to and including healthy tissue, in the subcutaneous layer, to muscl e and to bone (bone exposed but not debrided.) Percentage of wound debrided: 100 Instrument Used: 3mm curette Tissue Removed: Non viable tissue, subcutaneous tissue and muscle. Severity: Fat Layer Exposed (muscle is exposed. bone is exposed but not debrided.) Amount of bleeding with debridement: Mild Bleeding Controlled with: Pressure and Compression and gauze Patient tolerated procedure: Patient tolerated procedure well Debridement Free Text: Bone exposed but not debrided. Post-Debridement Measurements and Additional Note: Post-Debridement Measurements/Treatment - Nurse 1 - General Ulcer Assessment Start: 10/20/23 09:03 Freq: Status: Active Protocol: [email or web address] Activity Type Activity Date Activity User E-sign Co-sign Detail Recorded Client Recorded Date Recorded By Document 10/20/23 09:04 KW Desktop 10/20/23 09:09 KW 10/20/23 09:04 WC - Today's Visit Information Type of service Follow-up Visit (Physician/WIND TURBINE MECHANIC ) Arrival Mode Ambulatory Patient Identification Verified (Name & Yes ) Vital Signs Temperature (97.8 F-99.1 F) 98.3 F Temperature Source Temporal Pulse Rate (60-100) 94 Pulse Location Monitor Respiratory Rate (12-18) 18 Respiratory rate source Observation Oxygen Delivery Method Room Air Blood Pressure (90/60-120/80) 130/62 H Blood Pressure Mean (mm Hg) 84 Source Monitor Position Sitting History Since Last Visit- (Skip if this is Patient's initial visit) Have you changed medications since your No last visit? Any new allergies or adverse reactions No Had a fall/change in ADL's that may No increase risk of falls Signs or symptoms of abuse and/or No neglect since last visit Have you been in the hospital since your No last visit? Has dressing in place as prescribed Yes Has compression in place as prescribed Yes Has offloadiing in place as prescribed N/A Experienced any changes in pain level or No management Left Footwear Regular Shoe Right Footwear Regular Shoe Pain Scale: 0-10 Numeric Is Patient Pain Free? Yes - Nurse 1 - General Ulcer Measurement Start: 10/20/23 09:03 Freq: Status: Active Protocol: Activity Type Activity Date Activity User E-sign Co-sign Detail Recorded Client Recorded Date Recorded By Document 10/20/23 09:04 KW Desktop 10/20/23 09:09 KW 10/20/23 09:04 Wound Center Nurse 1 #8 L Tenorio post-op -Current Size (cm) - Length 1.7 -Current Size (cm) - Width 0.9 -Current Size (cm) - Depth 0.4 -Total Square Cm 1.53 -Date of Last Picture (Recall this 10/20/23 field) -Photo Taken Yes -Exudate Amt Medium -Exudate Type Serosanguineous -Wound Margin Distinct, Outline Attached -Granulation Amt Small (1-33%) -Granulation Quality Kimberly -Necrosis Amt Large (67-100%) -Necrotic Tissue Type Adherent Slough -Texture (Mima-wound Skin Appearance) Assessed -Moisture (Mima-wound Skin Appearance) Assessed -Color (Mima-wound Skin Appearance) Assessed -Temperature (Mima-wound Skin No Abnormality Appearance) (Pt Warm) -Ulcer Cleansing Rinsed/ Irrigated with Saline -Foul Odor after Cleansing No -Anesthetic Used 5% Lidocaine Gel Left Calf (cm) 27.4 Left Ankle (cm) 18.3 WC - Nurse 2 - General Ulcer CM Notes Start: 10/20/23 09:03 Freq: Status: Active Protocol: Activity Type Activity Date Activity User E-sign Co-sign Detail Recorded Client Recorded Date Recorded By Document 10/20/23 09:50 Laptop 10/20/23 09:52 10/20/23 09:50 Wound Center Nurse 2 #8 L Tenorio post-op -Time 09:50 -Correct Patient Yes -Correct Side, Site, Position Yes -Correct Procedure Yes -Procedure Performed Yes -Type of Procedure Debridement -Clinical Debridement Muscle / Fascia -Tissue Removed Muscle,Fascia -Post Debridement (cm) - Length 2.0 -Post Debridement (cm) - Width 1.0 -Post Debridement (cm) - Depth 0.7 -Total Square (Post) (cm) 2.00 -Area of Debridement (cm) - Length 2.0 -Area of Debridement (cm) - Width 1.0 -Total Square (Area) (cm) 2.00 -Tunneling No -Undermining/Tunneling No -Circular Undermining No -Wound/Ulcer Outcome Not Healed -Ulcer Cleansing Rinsed/ Irrigated with Saline -Foul Odor after Cleansing No -Bioengineered Tissue No -Bleeding Controlled with Pressure -Treatment Response Procedure Tolerated Well -Offloading No -Debridement - Muscle / Fascia, 1st Yes 20sq cm Pain Scale: 0-10 Numeric Is Patient Pain Free? Yes - Nurse 3 - General Ulcer D/C NN Start: 10/20/23 09:03 Freq: Status: Active Protocol: Activity Type Activity Date Activity User E-sign Co-sign Detail Recorded Client Recorded Date Recorded By Document 10/20/23 10:01 [facility] Desktop 10/20/23 10:02 [facility] 10/20/23 10:01 Wound Care Center Nurse 3 #8 L Tenorio post-op -Ulcer Cleansing Rinsed/ Irrigated with Saline -Foul Odor after Cleansing No -Primary Dressing Applied Aquacel AG 2x2, Mepilex Border -Other Dressing drsg per dl forensic document examiner -Aquacel AG 2x2 1 -Mepilex Border 1 LLE -Tubular Bandage Double Layer -Size of Tubigrip Used Size C -Size C ($) 2 -Other SENT AN EXTRA ONE; APPLIED PER [employer] MEDIA SPECIALIST Treatment Response Procedure Tolerated Well Pain Scale: 0-10 Numeric Is Patient Pain Free? 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: CODE(S): L97.926 - Non-pressure chronic ulcer of unspecified part of left lower leg with bone involvement without evidence of necrosis (2) MRSA (methicillin resistant Staphylococcus aureus) infection: CODE(S): A49.02 - Methicillin resistant Staphylococcus aureus infection, unspecified site (3) Osteomyelitis: CODE(S): M86.9 - Osteomyelitis, unspecified (4) Sequelae of open wound of left lower extremity: CODE(S): S81.802S - Unspecified open wound, left lower leg, sequela (5) DM type 2, goal HbA1c < 7%: CODE(S): E11.9 - Type 2 diabetes mellitus without complications (6) Smoker: CODE(S): F17.200 - Nicotine dependence, unspecified, uncomplicated PLAN: Plan Wound care - Continue Silver dressing changes daily. Compression - Tubigrip. Prealbumin from 12/04/22 was 14.5. Encouraged nutritional supplementation with protein to help the healing process. HgbA1c from 07/19/22 was 5.7. For elective surgeries, the HgbA1c needs to be less than 8. The ulcer has reached a plateau. There is a small area of exposed bone. It will not heal without complex flap reconstruction. HBO may be helpful both before and after surgery for chronic refractory osteomyelitis. She had MRSA in the ulcer at the time of surgery in November,. Will need another culture before her next surgery. Arterial study completed 11/04/22. Triphasic Doppler waveforms at ankle level bilaterally. Right MARI by dorsalis pedis = 1.15.? Left MARI by dorsalis pedis = 1.28. There is no evidence of significant arterial occlusive disease in the lower extremities bilaterally. Encouraged patient to stop smoking as it may have deleterious effects on wound healing. Discussed nicotine patches to stop smoking. Ideally she needs to stop smoking to give this ulcer and future surgeries the best possible chance of healing. Had an in depth discussion about stopping smoking. Discussed that she can start to slowly wean herself off of her cigarettes or discuss with her PCP about either using nicotine patches to stop smoking or other medication options. She states that she will think about it. She has recently seen a Fitness And Wellness Director and is taking Jay and Ensure plus protein supplements as recommended. Ideally the patient needs another microvascular free tissue transfer. Right now she would have to go to a tertiary center for that surgery. She would like to stay local if at all possible. May be able to do a local fasciocutaneous flap followed by skin graft of the donor area. I think the ulcer is just a tad too low for a soleus muscle flap. Will evaluate at the time of surgery. There may be issues with healing because of the scarring present. Anteriorly there is the muscle flap with skin graft. Could design the flap through the lateral edge of the muscle flap. Would base the fasciocutaneous flap of the medial perforators based on the tibial vessels. She is a smoker. Would proceed with a first stage delay which should help dilate the perforators to the skin that are constricted from the nicotine. The delay procedure can be done at the time of the operative debridement. At the time of that surgery, will recheck a Prealbumin and recheck a HgbA1c. Surgery would be done under general anesthesia with a surgical observation overnight stay in the hospital. Patient was informed of the risks and complications of the procedure including alternatives to surgery. These were discussed with the patient personally. Patient voices understanding. She wants the surgery but is a little nervous and will think about it. Encouraged patient to stop smoking as it may have deleterious effects on wound healing. She knows that smoking can be detrimental to any attempt at wound closure. She is trying to quit. She states she is at a half pack per day which is down from a pack a day. Also she had thickened, deformed toe nails with chronic fungal infection. Recommend seeing a Mining Teacher to trim the nails and treat chronic fungal infection. Since the operative site is close to the involved toes, this would also increase the risk of suboptimal healing as well. Followup 3 weeks.
== END 2023-11-06 23:59 | disposition home or self-care (01) ==
LOC: WC 08:59
PROVIDERS: Referring Provider Nurse Practitioner Family; Visit Provider Nurse Practitioner Family
DX: L97.926 Non-pressure chronic ulcer of unspecified part of left lower leg with bone involvement without evidence of necrosis (principal); M86.9 Osteomyelitis, unspecified; E11.9 Type 2 diabetes mellitus without complications; A49.02 Methicillin resistant Staphylococcus aureus infection, unspecified site; S81.802S Unspecified open wound, left lower leg, sequela; F17.200 Nicotine dependence, unspecified, uncomplicated
CPT/HCPCS: 11043

== ENCOUNTER 2023-10-21 10:10 | Outpatient (RCR) | payer MEDICAID, SELFPAY ==
[2023-10-09 00:43] VITALS: BP 131/68; PULSE 77; RESP 18; TEMP 36.7
== END 2023-11-06 23:59 ==
LOC: NS 10:10
PROVIDERS: Referring Provider Podiatrist; Visit Provider Nurse Practitioner Family
DX: Z71.3 Dietary counseling and surveillance (principal); E46 Unspecified protein-calorie malnutrition; E11.9 Type 2 diabetes mellitus without complications
CPT/HCPCS: 97803

== ENCOUNTER 2023-11-10 09:05 | Outpatient (RCR) | payer MEDICAID, SELFPAY ==
[2023-11-07 00:37] VITALS: BP 130/62; PULSE 94; RESP 18; TEMP 36.8
[2023-11-10 09:10] VITALS: BP 129/57; PULSE 101; RESP 20; TEMP 36.4
--- NOTE | 2023-11-10 10:22 | PN.PCM_ITS ---
History of Present Illness Date of Service: 11/10/23 Chief Complaint: nonhealing ulcer left anterior leg. History of Wound: Surgery 12/03/22 - surgical preparation left anterior leg with incision and drainage and excisional debridement nonhealing infected MRSA ulcer and partial ostectomy tibia for osteomyelitis. Wound care - Silver dressings followed by Tubigrip. Operative Tissue and bone cultures positive for MRSA. Treated with IV Vancomycin. Infectious Diseases consulted. Pathology - pieces of bone with chronic inflammation and reactive changes, negative for acute osteomyelitis. Prealbumin from 12/04/22 was 14.5. Encouraged nutritional supplementation with protein to help with the healing process. HgbA1c from 07/19/22 was 5.7. HgbA1c needs to be less than 8 for elective surgeries. MRI left leg done on08/08/22 - Sinus tracts from the marrow of the mid to distal tibial diaphysis to the skin at the medial aspect. Marrow edema throughout the majority of the tibia. Findings concerning for osteomyelitis. Arterial study completed 11/04/22. Triphasic Doppler waveforms at ankle level bilaterally. Right MARI by dorsalis pedis = 1.15.? Left MARI by dorsalis pedis = 1.28. There is no evidence of significant arterial occlusive disease in the lower extremities bilaterally. Today she denies complaints of fever. Her appetite is ok. Progress of Wound: Length and width slightly smaller. Depth stable. Bone still exposed. Mima wound stable. Objective Data Objective Data Vital Signs: Vital Signs Temp Pulse Resp BP 97.5 F L 101 H 20 H 129/57 H 11/10/23 09:10 11/10/23 09:10 11/10/23 09:10 11/10/23 09:10 Charges/Coding Procedures Integumentary 111xxx-113xx: 59994 Miryam musc/fascia 20 sq cm/< (ICD-10 - L97.926, A49.02, M86.9, S81.802S, E11.9, F17.200) Debridement Note Debridement Note Wound debrided: #8 Left anterior leg. Laterality: Left Wound Grade/Stage: Stage IV Type of Debridement: Excisional debridement Anesthesia Used: 4% Lidocaine Solution Depth: Down to and including healthy tissue, in the subcutaneous layer, to muscle and to bone (bone exposed but not debrided.) Percentage of wound debrided: 100 Instrument Used: 3mm curette Tissue Removed: Non viable tissue, subcutaneous tissue and muscle. Severity: Fat Layer Exposed (muscle is exposed. bone is exposed but not debrided.) Amount of bleeding with debridement: Mild Bleeding Controlled with: Pressure and Compression and gauze Patient tolerated procedure: Patient tolerated procedure well Debridement Free Text: Bone exposed but not debrided. Post-Debridement Measurements and Additional Note: Post-Debridement Measurements/Treatment - Nurse 1 - General Ulcer Assessment Start: 11/10/23 09:10 Freq: Status: Active Protocol: ELENA Activity Type Activity Date Activity User E-sign Co-sign Detail Recorded Client Recorded Date Recorded By Document 11/10/23 09:10 DL Desktop 11/10/23 09:15 DL 11/10/23 09:10 WC - Today's Visit Information Type of service Follow-up Visit (Physician/IMPLEMENTATION DIRECTOR ) Arrival Mode Ambulatory Transfer Assistance None Patient Identification Verified (Name & Yes ) Patient Requires Transmission-Based No Precautions Vital Signs Temperature (97.8 F-99.1 F) 97.5 F L Temperature Source Temporal Pulse Rate (60-100) 101 H Pulse Location Monitor Respiratory Rate (12-18) 20 H Respiratory rate source Observation Blood Pressure (90/60-120/80) 129/57 H Blood Pressure Mean (mm Hg) 81 Source Monitor History Since Last Visit- (Skip if this is Patient's initial visit) Have you changed medications since your No last visit? Any new allergies or adverse reactions No Had a fall/change in ADL's that may No increase risk of falls Signs or symptoms of abuse and/or No neglect since last visit Have you been in the hospital since your No last visit? Has dressing in place as prescribed Yes Has compression in place as prescribed Yes Has offloadiing in place as prescribed N/A Experienced any changes in pain level or No management Pain Scale: 0-10 Numeric Is Patient Pain Free? Yes - Nurse 1 - General Ulcer Measurement Start: 11/10/23 09:10 Freq: Status: Active Protocol: Activity Type Activity Date Activity User E-sign Co-sign Detail Recorded Client Recorded Date Recorded By Document 11/10/23 09:10 DL Desktop 11/10/23 09:15 DL 11/10/23 09:10 Wound Center Nurse 1 #8 L Tenorio post-op -Current Size (cm) - Length 1.6 -Current Size (cm) - Width 0.9 -Current Size (cm) - Depth 0.6 -Total Square Cm 1.44 -Tunneling Position (O'clock) 12 -Tunneling Distance (cm) 1.1 -Exudate Amt Medium -Exudate Type Serosanguineous -Wound Margin Thickened & Rolled Under -Granulation Amt None Present (0 %) -Necrosis Amt Large (67-100%) -Necrotic Tissue Type Adherent Slough -Structure Exposed N/A -Texture (Mima-wound Skin Appearance) Scarring -Moisture (Mima-wound Skin Appearance) No Abnormality -Color (Mima-wound Skin Appearance) Hemosiderin Staining -Temperature (Mima-wound Skin No Abnormality Appearance) (Pt Warm) -Tenderness on Palpation (Mima-wound No Skin Appearance) -Ulcer Cleansing Soap and Water -Foul Odor after Cleansing No -Anesthetic Used 4% Lidocaine Solution Left Calf (cm) 27.3 Left Ankle (cm) 18.3 WC - Nurse 2 - General Ulcer CM Notes Start: 11/10/23 09:10 Freq: Status: Active Protocol: Activity Type Activity Date Activity User E-sign Co-sign Detail Recorded Client Recorded Date Recorded By Document 11/10/23 09:27 Laptop 11/10/23 09:29 11/10/23 09:27 Wound Center Nurse 2 #8 L Tenorio post-op -Time 09:28 -Correct Patient Yes -Correct Side, Site, Position Yes -Correct Procedure Yes -Procedure Performed Yes -Type of Procedure Debridement -Clinical Debridement Muscle / Fascia -Tissue Removed Muscle,Fascia -Post Debridement (cm) - Length 1.8 -Post Debridement (cm) - Width 0.9 -Post Debridement (cm) - Depth 0.7 -Total Square (Post) (cm) 1.62 -Area of Debridement (cm) - Length 1.8 -Area of Debridement (cm) - Width 0.9 -Total Square (Area) (cm) 1.62 -Tunneling No -Undermining/Tunneling No -Circular Undermining No -Wound/Ulcer Outcome Not Healed -Ulcer Cleansing Rinsed/ Irrigated with Saline -Foul Odor after Cleansing No -Bioengineered Tissue No -Bleeding Controlled with Pressure -Treatment Response Procedure Tolerated Well -Offloading No -Debridement - Muscle / Fascia, 1st Yes 20sq cm Pain Scale: 0-10 Numeric Is Patient Pain Free? Yes WC - Nurse 3 - General Ulcer D/C NN Start: 11/10/23 09:10 Freq: Status: Active Protocol: Activity Type Activity Date Activity User E-sign Co-sign Detail Recorded Client Recorded Date Recorded By Document 11/10/23 09:37 DL Desktop 11/10/23 09:39 DL 11/10/23 09:37 Wound Care Center Nurse 3 #8 L Tenorio post-op -Ulcer Cleansing Rinsed/ Irrigated with Saline -Foul Odor after Cleansing No -Primary Dressing Applied Aquacel AG 2x2, Mepilex Border -Aquacel AG 2x2 1 -Mepilex Border 1 Left -Other tubigrip Treatment Response Procedure Tolerated Well Pain Scale: 0-10 Numeric Is Patient Pain Free? 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: CODE(S): L97.926 - Non-pressure chronic ulcer of unspecified part of left lower leg with bone involvement without evidence of necrosis (2) MRSA (methicillin resistant Staphylococcus aureus) infection: CODE(S): A49.02 - Methicillin resistant Staphylococcus aureus infection, unspecified site (3) Osteomyelitis: CODE(S): M86.9 - Osteomyelitis, unspecified (4) Sequelae of open wound of left lower extremity: CODE(S): S81.802S - Unspecified open wound, left lower leg, sequela (5) DM type 2, goal HbA1c < 7%: CODE(S): E11.9 - Type 2 diabetes mellitus without complications (6) Smoker: CODE(S): F17.200 - Nicotine dependence, unspecified, uncomplicated PLAN: Plan Wound care - Continue moistened Aquacel-Ag covered with [place] SAP dressing changes daily. Wash ulcer with soap and water daily at the time of dressing change. Compression - Tubigrip. Prealbumin from 12/04/22 was 14.5. Encouraged nutritional supplementation with protein to help the healing process. She has been seeing a land mobile radio technician (last visit 10/21/23) to help with increased calorie and protein intake. Patient states that she is drinking 2 Ensures and 1 Jay per day. HgbA1c from 07/19/22 was 5.7. For elective surgeries, the HgbA1c needs to be less than 8. The ulcer has reached a plateau. There is a small area of exposed bone. It will not heal without complex flap reconstruction. HBO may be helpful both before and after surgery for chronic refractory osteomyelitis. She had MRSA in the ulcer at the time of surgery in November,. Will need another culture before her next surgery. Arterial study completed 11/04/22. Triphasic Doppler waveforms at ankle level bilaterally. Right MARI by dorsalis pedis = 1.15.? Left MARI by dorsalis pedis = 1.28. There is no evidence of significant arterial occlusive disease in the lower extremities bilaterally. Encouraged patient to stop smoking as it may have deleterious effects on wound healing. She states that she is trying to cut back but is struggling with not smoking. Followup [address] Jones's previous note: Ideally the patient needs another microvascular free tissue transfer. Right now she would have to go to a tertiary center for that surgery. She would like to stay local if at all possible. May be able to do a local fasciocutaneous flap followed by skin graft of the donor area. I think the ulcer is just a tad too low for a soleus muscle flap. Will evaluate at the time of surgery. There may be issues with healing because of the scarring present. Anteriorly there is the muscle flap with skin graft. Could design the flap through the lateral edge of the muscle flap. Would base the fasciocutaneous flap of the medial perforators based on the tibial vessels. She is a smoker. Would proceed with a first stage delay which should help dilate the perforators to the skin that are constricted from the nicotine. The delay procedure can be done at the time of the operative debridement. At the time of that surgery, will recheck a Prealbumin and recheck a HgbA1c. Surgery would be done under general anesthesia with a surgical observation overnight stay in the hospital. Patient was informed of the risks and complications of the procedure including alternatives to surgery. These were discussed with the patient personally. Patient voices understanding. She wants the surgery but is a little nervous and will think about it. Encouraged patient to stop smoking as it may have deleterious effects on wound healing. She knows that smoking can be detrimental to any attempt at wound closure. She is trying to quit. She states she is at a half pack per day which is down from a pack a day. Also she had thickened, deformed toe nails with chronic fungal infection. Recommend seeing a Healthcare Risk Control Consultant to trim the nails and treat chronic fungal infection. Since the operative site is close to the involved toes, this would also increase the risk of suboptimal healing as well.
== END 2023-12-07 23:59 | disposition home or self-care (01) ==
LOC: WC 09:05
PROVIDERS: Referring Provider Nurse Practitioner Family; Visit Provider Nurse Practitioner Family
DX: L97.926 Non-pressure chronic ulcer of unspecified part of left lower leg with bone involvement without evidence of necrosis (principal); M86.9 Osteomyelitis, unspecified; E11.69 Type 2 diabetes mellitus with other specified complication; A49.02 Methicillin resistant Staphylococcus aureus infection, unspecified site; S81.802S Unspecified open wound, left lower leg, sequela; F17.200 Nicotine dependence, unspecified, uncomplicated
CPT/HCPCS: 11043

== ENCOUNTER 2023-11-17 09:35 | Outpatient (RCR) | payer MEDICAID, SELFPAY ==
[2023-11-07 00:33] VITALS: BP 131/68; PULSE 77; RESP 18; TEMP 36.7
== END 2023-12-07 23:59 ==
LOC: NS 09:35
PROVIDERS: Referring Provider Podiatrist; Visit Provider Nurse Practitioner Family
DX: Z71.3 Dietary counseling and surveillance (principal); E46 Unspecified protein-calorie malnutrition; E11.9 Type 2 diabetes mellitus without complications; J44.9 Chronic obstructive pulmonary disease, unspecified; E78.5 Hyperlipidemia, unspecified
CPT/HCPCS: 97803

== ENCOUNTER 2023-12-22 09:30 | Outpatient (RCR) | payer MEDICAID, SELFPAY ==
[2023-12-08 00:47] VITALS: BP 129/57; PULSE 101; RESP 20; TEMP 36.4
[2023-12-08 09:43] VITALS: BP 114/58; PULSE 87; RESP 18; TEMP 36.2
--- NOTE | 2023-12-08 12:29 | PN.PCM_ITS ---
History of Present Illness Date of Service: 12/08/23 Chief Complaint: nonhealing ulcer left anterior leg. History of Wound: Surgery 12/03/22 - surgical preparation left anterior leg with incision and drainage and excisional debridement nonhealing infected MRSA ulcer and partial ostectomy tibia for osteomyelitis. Wound care - Silver dressings followed by Tubigrip. Operative Tissue and bone cultures positive for MRSA. Treated with IV Vancomycin. Infectious Diseases consulted. Pathology - pieces of bone with chronic inflammation and reactive changes, negative for acute osteomyelitis. Prealbumin from 12/04/22 was 14.5. Encouraged nutritional supplementation with protein to help with the healing process. HgbA1c from 07/19/22 was 5.7. HgbA1c needs to be less than 8 for elective surgeries. MRI left leg done on08/08/22 - Sinus tracts from the marrow of the mid to distal tibial diaphysis to the skin at the medial aspect. Marrow edema throughout the majority of the tibia. Findings concerning for osteomyelitis. Arterial study completed 11/04/22. Triphasic Doppler waveforms at ankle level bilaterally. Right MARI by dorsalis pedis = 1.15.? Left MARI by dorsalis pedis = 1.28. There is no evidence of significant arterial occlusive disease in the lower extremities bilaterally. Today she denies complaints of fever. Her appetite is ok. Progress of Wound: Ulcer appears slightly smaller. Depth stable. Bone still exposed. Mima wound clear. She is starting PT/OT at home to help with strengthening. She is complaining of right foot pain like she had last year. Recommend she follow up with podiatry for further evaluation. Objective Data Objective Data Vital Signs: Vital Signs Temp Pulse Resp BP 97.1 F L 87 18 114/58 L 12/08/23 09:43 12/08/23 09:43 12/08/23 09:43 12/08/23 09:43 Charges/Coding Procedures Integumentary [id number]: 12514 Miryam musc/fascia 20 sq cm/< (ICD-10 - L97.926, A49.02, M86.9, S81.802S, E11.9, F17.200) Debridement Note Debridement Note Wound debrided: #8 Left anterior leg. Laterality: Left Wound Grade/Stage: Stage IV Type of Debridement: Excisional debridement Anesthesia Used: 4% Lidocaine Solution Depth: Down to and including healthy tissue, in the subcutaneous layer, to muscle and to bone (bone exposed but not debrided.) Percentage of wound debrided: 100 Instrument Used: 3mm curette Tissue Removed: Non viable tissue, subcutaneous tissue and muscle. Severity: Fat Layer Exposed (muscle is exposed. bone is exposed but not debrided.) Amount of bleeding with debridement: Mild Bleeding Controlled with: Compression and gauze Patient tolerated procedure: Patient tolerated procedure well Debridement Free Text: Bone exposed but not debrided. Post-Debridement Measurements and Additional Note: Post-Debridement Measurements/Treatment WC - Nurse 1 - General Ulcer Assessment Start: 12/08/23 09:41 Freq: Status: Active Protocol: ELENA Activity Type Activity Date Activity User E-sign Co-sign Detail Recorded Client Recorded Date Recorded By Document 12/08/23 09:43 DL Desktop 12/08/23 09:53 DL 12/08/23 09:43 WC - Today's Visit Information Type of service Follow-up Visit (Physician/GUIDE FOREIGN TOUR ) Arrival Mode Ambulatory Transfer Assistance None Patient Identification Verified (Name & Yes ) Patient Requires Transmission-Based No Precautions Vital Signs Temperature (97.8 F-99.1 F) 97.1 F L Temperature Source Temporal Pulse Rate (60-100) 87 Pulse Location Monitor Respiratory Rate (12-18) 18 Respiratory rate source Observation Blood Pressure (90/60-120/80) 114/58 L Blood Pressure Mean (mm Hg) 76 Source Monitor History Since Last Visit- (Skip if this is Patient's initial visit) Have you changed medications since your No last visit? Any new allergies or adverse reactions No Had a fall/change in ADL's that may No increase risk of falls Signs or symptoms of abuse and/or No neglect since last visit Have you been in the hospital since your No last visit? Has dressing in place as prescribed Yes Has compression in place as prescribed Yes Has offloadiing in place as prescribed N/A Experienced any changes in pain level or No management Left Footwear Regular Shoe Right Footwear Regular Shoe Pain Scale: 0-10 Numeric Is Patient Pain Free? Yes YVETTE - Nurse 1 - General Ulcer Measurement Start: 12/08/23 09:41 Freq: Status: Active Protocol: Activity Type Activity Date Activity User E-sign Co-sign Detail Recorded Client Recorded Date Recorded By Document 12/08/23 09:43 DL Desktop 12/08/23 09:53 DL 12/08/23 09:43 Wound Center Nurse 1 #8 L Tenorio post-op -Combined with other wound No -Current Size (cm) - Length 1.8 -Current Size (cm) - Width 0.9 -Current Size (cm) - Depth 0.3 -Total Square Cm 1.62 -Date of Last Picture (Recall this 12/08/23 field) -Photo Taken Yes -Tunneling Yes -Tunneling Position (O'clock) 12 -Tunneling Distance (cm) 0.6 -Undermining/Tunneling No -Circular Undermining No -Exudate Amt Medium -Exudate Type Serosanguineous -Wound Margin Distinct, Outline Attached -Granulation Amt None Present (0 %) -Slough/Fibrin Yes -Necrosis Amt Large (67-100%) -Necrotic Tissue Type Adherent Slough -Structure Exposed Bone -Texture (Mima-wound Skin Appearance) Assessed, Scarring -Moisture (Mima-wound Skin Appearance) Assessed,Dry/ Scaly -Color (Mima-wound Skin Appearance) Assessed -Temperature (Mima-wound Skin No Abnormality Appearance) (Pt Warm) -Tenderness on Palpation (Mima-wound No Skin Appearance) -Ulcer Cleansing Rinsed/ Irrigated with Saline -Foul Odor after Cleansing No -Anesthetic Used 5% Lidocaine Gel Left Calf (cm) 27.5 Left Ankle (cm) 18 WC - Nurse 2 - General Ulcer CM Notes Start: 12/08/23 09:41 Freq: Status: Active Protocol: Activity Type Activity Date Activity User E-sign Co-sign Detail Recorded Client Recorded Date Recorded By Document 12/08/23 10:15 Laptop 12/08/23 10:16 12/08/23 10:15 Wound Center Nurse 2 #8 L Tenorio post-op -Time 10:15 -Correct Patient Yes -Correct Side, Site, Position Yes -Correct Procedure Yes -Procedure Performed Yes -Type of Procedure Debridement -Clinical Debridement Muscle / Fascia -Tissue Removed Muscle,Fascia -Post Debridement (cm) - Length 2.0 -Post Debridement (cm) - Width 1.0 -Post Debridement (cm) - Depth 0.4 -Total Square (Post) (cm) 2.00 -Area of Debridement (cm) - Length 2.0 -Area of Debridement (cm) - Width 1.0 -Total Square (Area) (cm) 2.00 -Tunneling No -Undermining/Tunneling No -Circular Undermining No -Wound/Ulcer Outcome Not Healed -Ulcer Cleansing Rinsed/ Irrigated with Saline -Foul Odor after Cleansing No -Bioengineered Tissue No -Bleeding Controlled with Pressure -Treatment Response Procedure Tolerated Well -Offloading No -Debridement - Muscle / Fascia, 1st Yes 20sq cm Pain Scale: 0-10 Numeric Is Patient Pain Free? Yes - Nurse 3 - General Ulcer D/C NN Start: 12/08/23 09:41 Freq: Status: Active Protocol: Activity Type Activity Date Activity User E-sign Co-sign Detail Recorded Client Recorded Date Recorded By Document 12/08/23 10:19 Laptop 12/08/23 10:25 12/08/23 10:19 Wound Care Center Nurse 3 #8 L Tenorio post-op -Ulcer Cleansing Rinsed/ Irrigated with Saline -Foul Odor after Cleansing No -Primary Dressing Applied Aquacel AG 2x2, Optilok 6.5x10 -Aquacel AG 2x2 1 -Optilok 6.5x10 1 Left -Tubular Bandage Double Layer -Size of Tubigrip Used Size C -Size C ($) 2 Pain Scale: 0-10 Numeric Is Patient Pain Free? 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: CODE(S): L97.926 - Non-pressure chronic ulcer of unspecified part of left lower leg with bone involvement without evidence of necrosis (2) MRSA (methicillin resistant Staphylococcus aureus) infection: CODE(S): A49.02 - Methicillin resistant Staphylococcus aureus infection, unspecified site (3) Osteomyelitis: CODE(S): M86.9 - Osteomyelitis, unspecified (4) Sequelae of open wound of left lower extremity: CODE(S): S81.802S - Unspecified open wound, left lower leg, sequela (5) DM type 2, goal HbA1c < 7%: CODE(S): E11.9 - Type 2 diabetes mellitus without complications (6) Smoker: CODE(S): F17.200 - Nicotine dependence, unspecified, uncomplicated PLAN: Plan Wound care - Continue moistened Aquacel-Ag covered with [place] SAP dressing changes daily. Wash ulcer with soap and water daily at the time of dressing change. Compression - Tubigrip. Prealbumin from 12/04/22 was 14.5. Encouraged nutritional supplementation with protein to help the healing process. She has been seeing a technology manager to help with increased calorie and protein intake. Patient states that she is drinking 3 supplemental drinks per day. HgbA1c from 07/19/22 was 5.7. For elective surgeries, the HgbA1c needs to be less than 8. The ulcer has reached a plateau. There is a small area of exposed bone. It will not heal without complex flap reconstruction. HBO may be helpful both before and after surgery for chronic refractory osteomyelitis. She had MRSA in the ulcer at the time of surgery in November,. Will need another culture before her next surgery. Arterial study completed 11/04/22. Triphasic Doppler waveforms at ankle level bilaterally. Right MARI by dorsalis pedis = 1.15.? Left MARI by dorsalis pedis = 1.28. There is no evidence of significant arterial occlusive disease in the lower extremities bilaterally. Encouraged patient to stop smoking as it may have deleterious effects on wound healing. She states that she is trying to cut back but is struggling with not smoking. She is complaining of right foot pain, like she had in the past when she required wearing a boot. Referring her back to podiatry for further evaluation of this issue. Followup [address] Jones's previous note: Ideally the patient needs another microvascular free tissue transfer. Right now she would have to go to a tertiary center for that surgery. She would like to stay local if at all possible. May be able to do a local fasciocutaneous flap followed by skin graft of the donor area. I think the ulcer is just a tad too low for a soleus muscle flap. Will evaluate at the time of surgery. There may be issues with healing because of the scarring present. Anteriorly there is the muscle flap with skin graft. Could design the flap through the lateral edge of the muscle flap. Would base the fasciocutaneous flap of the medial perforators based on the tibial vessels. She is a smoker. Would proceed with a first stage delay which should help dilate the perforators to the skin that are constricted from the nicotine. The delay procedure can be done at the time of the operative debridement. At the time of that surgery, will recheck a Prealbumin and recheck a HgbA1c. Surgery would be done under general anesthesia with a surgical observation overnight stay in the hospital. Patient was informed of the risks and complications of the procedure including alternatives to surgery. These were discussed with the patient personally. Patient voices understanding. She wants the surgery but is a little nervous and will think about it. Encouraged patient to stop smoking as it may have deleterious effects on wound healing. She knows that smoking can be detrimental to any attempt at wound closure. She is trying to quit. She states she is at a half pack per day which is down from a pack a day. Also she had thickened, deformed toe nails with chronic fungal infection. Recommend seeing a Long Chain Beamer to trim the nails and treat chronic fungal infection. Since the operative site is close to the involved toes, this would also increase the risk of suboptimal healing as well.
[2023-12-22 09:22] VITALS: BP 129/55; PULSE 92; RESP 18; TEMP 36.8
--- NOTE | 2023-12-22 12:53 | PN.PCM_ITS ---
History of Present Illness Date of Service: 12/22/23 Chief Complaint: nonhealing ulcer left anterior leg. History of Wound: Surgery 12/03/22 - surgical preparation left anterior leg with incision and drainage and excisional debridement nonhealing infected MRSA ulcer and partial ostectomy tibia for osteomyelitis. Wound care - Silver dressings followed by Tubigrip. Operative Tissue and bone cultures positive for MRSA. Treated with IV Vancomycin. Infectious Diseases consulted. Pathology - pieces of bone with chronic inflammation and reactive changes, negative for acute osteomyelitis. Prealbumin from 12/04/22 was 14.5. Encouraged nutritional supplementation with protein to help with the healing process. HgbA1c from 07/19/22 was 5.7. HgbA1c needs to be less than 8 for elective surgeries. MRI left leg done on08/08/22 - Sinus tracts from the marrow of the mid to distal tibial diaphysis to the skin at the medial aspect. Marrow edema throughout the majority of the tibia. Findings concerning for osteomyelitis. Arterial study completed 11/04/22. Triphasic Doppler waveforms at ankle level bilaterally. Right MARI by dorsalis pedis = 1.15.? Left MAIR by dorsalis pedis = 1.28. There is no evidence of significant arterial occlusive disease in the lower extremities bilaterally. Today she denies complaints of fever. Her appetite is ok. Progress of Wound: Ulcer appears slightly smaller. Depth stable. Bone still exposed. Mima wound clear. She is complaining of right foot pain like she had last year. She missed her appointment with the event specialist product demonstrator for evaluation of her right foot pain. She states she needs to reschedule. Objective Data Objective Data Vital Signs: Vital Signs Temp Pulse Resp BP 98.2 F 92 18 129/55 H 12/22/23 09:22 12/22/23 09:22 12/22/23 09:22 12/22/23 09:22 Charges/Coding Procedures Integumentary [id number]: [id number] Miryam musc/fascia 20 sq cm/< Debridement Note Debridement Note Wound debrided: #8 Left anterior leg. Laterality: Left Wound Grade/Stage: Stage IV Type of Debridement: Excisional debridement Anesthesia Used: 4% Lidocaine Solution Depth: Down to and including healthy tissue, in the subcutaneous layer, to muscle and to bone (bone exposed but not debrided.) Percentage of wound debrided: 100 Instrument Used: 3mm curette Tissue Removed: Non viable tissue, subcutaneous tissue and muscle. Severity: Fat Layer Exposed (muscle is exposed. bone is exposed but not debrided.) Amount of bleeding with debridement: Mild Bleeding Controlled with: Compression and gauze Patient tolerated procedure: Patient tolerated procedure well Debridement Free Text: Bone exposed but not debrided. Post-Debridement Measurements and Additional Note: Post-Debridement Measurements/Treatment - Nurse 1 - General Ulcer Assessment Start: 12/08/23 09:41 Freq: Status: Active Protocol: ELENA Activity Type Activity Date Activity User E-sign Co-sign Detail Recorded Client Recorded Date Recorded By Document 12/08/23 09:43 DL Desktop 12/08/23 09:53 DL Document 12/22/23 09:22 DL Desktop 12/22/23 09:32 DL 12/08/23 12/22/23 09:43 09:22 - Today's Visit Information Type of service Follow-up Visit Follow-up Visit (Physician/CABIN WORKER (Physician/CABIN WORKER ) ) Arrival Mode Ambulatory Ambulatory Transfer Assistance None Transfer Board Patient Identification Verified (Name & Yes Yes ) Patient Requires Transmission-Based No No Precautions Vital Signs Temperature (97.8 F-99.1 F) 97.1 F L 98.2 F Temperature Source Temporal Temporal Pulse Rate (60-100) 87 92 Pulse Location Monitor Monitor Respiratory Rate (12-18) 18 18 Respiratory rate source Observation Observation Blood Pressure (90/60-120/80) 114/58 L 129/55 H Blood Pressure Mean (mm Hg) 76 79 Source Monitor Monitor History Since Last Visit- (Skip if this is Patient's initial visit) Have you changed medications since your No No last visit? Any new allergies or adverse reactions No No Had a fall/change in ADL's that may No No increase risk of falls Signs or symptoms of abuse and/or No No neglect since last visit Have you been in the hospital since your No No last visit? Has dressing in place as prescribed Yes Yes Has compression in place as prescribed Yes Yes Has offloadiing in place as prescribed N/A N/A Experienced any changes in pain level or No No management Left Footwear Regular Shoe Right Footwear Regular Shoe Pain Scale: 0-10 Numeric Is Patient Pain Free? Yes Yes - Nurse 1 - General Ulcer Measurement Start: 12/08/23 09:41 Freq: Status: Active Protocol: Activity Type Activity Date Activity User E-sign Co-sign Detail Recorded Client Recorded Date Recorded By Document 12/08/23 09:43 DL Desktop 12/08/23 09:53 DL Document 12/22/23 09:22 DL Desktop 12/22/23 09:32 DL 12/08/23 12/22/23 09:43 09:22 Wound Center Nurse 1 #8 L Tenorio post-op -Combined with other wound No -Current Size (cm) - Length 1.8 1.3 -Current Size (cm) - Width 0.9 1 -Current Size (cm) - Depth 0.3 0.3 -Total Square Cm 1.62 1.3 -Date of Last Picture (Recall this 12/08/23 field) -Photo Taken Yes -Tunneling Yes -Tunneling Position (O'clock) 12 -Tunneling Distance (cm) 0.6 -Undermining/Tunneling No -Circular Undermining No -Exudate Amt Medium Small -Exudate Type Serosanguineous Serosanguineous -Wound Margin Distinct, Thickened Outline Attached -Granulation Amt None Present (0 Small (1-33%) %) -Granulation Quality [place] -Slough/Fibrin Yes -Necrosis Amt Large (67-100%) Small (1-33%) -Necrotic Tissue Type Adherent Slough Adherent Slough -Structure Exposed Bone Bone -Texture (Mima-wound Skin Appearance) Assessed, Scarring Scarring -Moisture (Mima-wound Skin Appearance) Assessed,Dry/ No Abnormality Scaly -Color (Mima-wound Skin Appearance) Assessed No Abnormality -Temperature (Mima-wound Skin No Abnormality No Abnormality Appearance) (Pt Warm) (Pt Warm) -Tenderness on Palpation (Mima-wound No No Skin Appearance) -Ulcer Cleansing Rinsed/ Soap and Water Irrigated with Saline -Foul Odor after Cleansing No No -Anesthetic Used 5% Lidocaine 5% Lidocaine Gel Gel Left Calf (cm) 27.5 28 Left Ankle (cm) 18 18.5 WC - Nurse 2 - General Ulcer CM Notes Start: 12/08/23 09:41 Freq: Status: Active Protocol: Activity Type Activity Date Activity User E-sign Co-sign Detail Recorded Client Recorded Date Recorded By Document 12/08/23 10:15 Laptop 12/08/23 10:16 Document 12/22/23 09:52 Laptop 12/22/23 09:55 12/08/23 12/22/23 10:15 09:52 Wound Center Nurse 2 #8 L Tenorio post-op -Time 10:15 09:52 -Correct Patient Yes Yes -Correct Side, Site, Position Yes Yes -Correct Procedure Yes Yes -Procedure Performed Yes Yes -Type of Procedure Debridement Debridement -Clinical Debridement Muscle / Fascia Muscle / Fascia -Tissue Removed Muscle,Fascia Muscle -Post Debridement (cm) - Length 2.0 2.0 -Post Debridement (cm) - Width 1.0 0.8 -Post Debridement (cm) - Depth 0.4 0.6 -Total Square (Post) (cm) 2.00 1.60 -Area of Debridement (cm) - Length 2.0 2.0 -Area of Debridement (cm) - Width 1.0 0.8 -Total Square (Area) (cm) 2.00 1.60 -Tunneling No No -Undermining/Tunneling No No -Circular Undermining No No -Wound/Ulcer Outcome Not Healed Not Healed -Ulcer Cleansing Rinsed/ Rinsed/ Irrigated with Irrigated with Saline Saline -Foul Odor after Cleansing No No -Bioengineered Tissue No No -Bleeding Controlled with Pressure Pressure -Treatment Response Procedure Procedure Tolerated Well Tolerated Well -Offloading No No -Debridement - Muscle / Fascia, 1st Yes Yes 20sq cm Pain Scale: 0-10 Numeric Is Patient Pain Free? Yes Yes - Nurse 3 - General Ulcer D/C NN Start: 12/08/23 09:41 Freq: Status: Active Protocol: Activity Type Activity Date Activity User E-sign Co-sign Detail Recorded Client Recorded Date Recorded By Document 12/08/23 10:19 Laptop 12/08/23 10:25 Document 12/22/23 10:07 Desktop 12/22/23 10:08 12/08/23 12/22/23 10:19 10:07 Wound Care Center Nurse 3 #8 L Tenorio post-op -Ulcer Cleansing Rinsed/ Irrigated with Saline -Foul Odor after Cleansing No -Primary Dressing Applied Aquacel AG 2x2, Aquacel AG 2x2, Optilok 6.5x10 Mepilex Border -Aquacel AG 2x2 1 1 -Mepilex Border 1 -Optilok 6.5x10 1 Left -Tubular Bandage Double Layer Double Layer -Size of Tubigrip Used Size C Size C -Size C ($) 2 2 Pain Scale: 0-10 Numeric Is Patient Pain Free? 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: CODE(S): L97.926 - Non-pressure chronic ulcer of unspecified part of left lower leg with bone involvement without evidence of necrosis (2) MRSA (methicillin resistant Staphylococcus aureus) infection: CODE(S): A49.02 - Methicillin resistant Staphylococcus aureus infection, unspecified site (3) Osteomyelitis: CODE(S): M86.9 - Osteomyelitis, unspecified (4) Sequelae of open wound of left lower extremity: CODE(S): S81.802S - Unspecified open wound, left lower leg, sequela (5) DM type 2, goal HbA1c < 7%: CODE(S): E11.9 - Type 2 diabetes mellitus without complications (6) Smoker: CODE(S): F17.200 - Nicotine dependence, unspecified, uncomplicated PLAN: Plan Wound care - Continue moistened Aquacel-Ag covered with [place] SAP dressing changes daily. Wash ulcer with soap and water daily at the time of dressing change. Compression - Tubigrip. Prealbumin from 12/04/22 was 14.5. Encouraged nutritional supplementation with protein to help the healing process. She has been seeing a oil prospecting observer to help with increased calorie and protein intake. Patient states that she is drinking 3 supplemental drinks per day. HgbA1c from 07/19/22 was 5.7. For elective surgeries, the HgbA1c needs to be less than 8. The ulcer has reached a plateau. There is a small area of exposed bone. It will not heal without complex flap reconstruction. HBO may be helpful both before and after surgery for chronic refractory osteomyelitis. She had MRSA in the ulcer at the time of surgery in November,. Will need another culture before her next surgery. Arterial study completed 11/04/22. Triphasic Doppler waveforms at ankle level bilaterally. Right MARI by dorsalis pedis = 1.15.? Left MARI by dorsalis pedis = 1.28. There is no evidence of significant arterial occlusive disease in the lower extremities bilaterally. Encouraged patient to stop smoking as it may have deleterious effects on wound healing. She states that she is trying to cut back but is struggling with not smoking. She needs to reschedule her appointment with podiatry for further evaluation of this issue. Followup 2-[address] Jones's previous note: Ideally the patient needs another microvascular free tissue transfer. Right now she would have to go to a tertiary center for that surgery. She would like to stay local if at all possible. May be able to do a local fasciocutaneous flap followed by skin graft of the donor area. I think the ulcer is just a tad too low for a soleus muscle flap. Will evaluate at the time of surgery. There may be issues with healing because of the scarring present. Anteriorly there is the muscle flap with skin graft. Could design the flap through the lateral edge of the muscle flap. Would base the fasciocutaneous flap of the medial perforators based on the tibial vessels. She is a smoker. Would proceed with a first stage delay which should help dilate the perforators to the skin that are constricted from the nicotine. The delay procedure can be done at the time of the operative debridement. At the time of that surgery, will recheck a Prealbumin and recheck a HgbA1c. Surgery would be done under general anesthesia with a surgical observation overnight stay in the hospital. Patient was informed of the risks and complications of the procedure including alternatives to surgery. These were discussed with the patient personally. Patient voices understanding. She wants the surgery but is a little nervous and will think about it. Encouraged patient to stop smoking as it may have deleterious effects on wound healing. She knows that smoking can be detrimental to any attempt at wound closure. She is trying to quit. She states she is at a half pack per day which is down from a pack a day. Also she had thickened, deformed toe nails with chronic fungal infection. Recommend seeing a Wild Animal Caretaker to trim the nails and treat chronic fungal infection. Since the operative site is close to the involved toes, this would also increase the risk of suboptimal healing as well.
== END 2024-01-06 23:59 | disposition home or self-care (01) ==
LOC: WC 09:30
PROVIDERS: Referring Provider Nurse Practitioner Family; Visit Provider Nurse Practitioner Family
DX: L97.926 Non-pressure chronic ulcer of unspecified part of left lower leg with bone involvement without evidence of necrosis (principal); M86.9 Osteomyelitis, unspecified; E11.69 Type 2 diabetes mellitus with other specified complication; A49.02 Methicillin resistant Staphylococcus aureus infection, unspecified site; S81.802S Unspecified open wound, left lower leg, sequela; F17.200 Nicotine dependence, unspecified, uncomplicated
CPT/HCPCS: 11043

== ENCOUNTER 2023-12-24 09:14 | Outpatient (RCR) | payer MEDICAID, SELFPAY ==
[2023-12-08 00:25] VITALS: BP 131/68; PULSE 77; RESP 18; TEMP 36.7
== END 2024-01-06 23:59 ==
LOC: NS 09:14
PROVIDERS: Referring Provider Podiatrist; Visit Provider Nurse Practitioner Family
DX: Z71.3 Dietary counseling and surveillance (principal); E46 Unspecified protein-calorie malnutrition; E11.9 Type 2 diabetes mellitus without complications; J44.9 Chronic obstructive pulmonary disease, unspecified; E78.5 Hyperlipidemia, unspecified
CPT/HCPCS: 97803

== ENCOUNTER 2024-01-26 09:30 | Outpatient (RCR) | payer MEDICAID, SELFPAY ==
[2024-01-07 00:50] VITALS: BP 129/55; PULSE 92; RESP 18; TEMP 36.8
[2024-01-12 08:53] VITALS: BP 117/62; PULSE 91; RESP 16; TEMP 36.3
--- NOTE | 2024-01-12 10:59 | PCM.WC.PN ---
History of Present Illness Date of Service: 01/12/24 Chief Complaint: nonhealing ulcer left anterior leg. History of Wound: Surgery 12/03/22 - surgical preparation left anterior leg with incision and drainage and excisional debridement nonhealing infected MRSA ulcer and partial ostectomy tibia for osteomyelitis. Wound care - Silver dressings followed by Tubigrip. Operative Tissue and bone cultures positive for MRSA. Treated with IV Vancomycin. Infectious Diseases consulted. Pathology - pieces of bone with chronic inflammation and reactive changes, negative for acute osteomyelitis. Prealbumin from 12/04/22 was 14.5. Encouraged nutritional supplementation with protein to help with the healing process. HgbA1c from 07/19/22 was 5.7. HgbA1c needs to be less than 8 for elective surgeries. MRI left leg done on08/08/22 - Sinus tracts from the marrow of the mid to distal tibial diaphysis to the skin at the medial aspect. Marrow edema throughout the majority of the tibia. Findings concerning for osteomyelitis. Arterial study completed 11/04/22. Triphasic Doppler waveforms at ankle level bilaterally. Right MARI by dorsalis pedis = 1.15.? Left MARI by dorsalis pedis = 1.28. There is no evidence of significant arterial occlusive disease in the lower extremities bilaterally. Today she denies complaints of fever. Her appetite is ok. Progress of Wound: Ulcer appears slightly smaller. Depth stable. Bone still exposed. Mima wound clear. She has been drinking nutritional supplements twice daily and states that she is feeling better and now weighs 101 lbs! Objective Data Objective Data Vital Signs: Vital Signs Temp Pulse Resp BP O2 Del Method 97.3 F L 91 16 117/62 Room Air 01/12/24 08:53 01/12/24 08:53 01/12/24 08:53 01/12/24 08:53 01/12/24 08:53 Oxygen Delivery Method Room Air Charges/Coding Procedures Integumentary [id number]: [id number] Miryam musc/fascia 20 sq cm/< Debridement Note Debridement Note Wound debrided: #8 Left anterior leg. Laterality: Left Wound Grade/Stage: Stage IV Type of Debridement: Excisional debridement Anesthesia Used: 4% Lidocaine Solution Depth: Down to and including healthy tissue, in the subcutaneous layer, to muscle and to bone (bone exposed but not debrided.) Percentage of wound debrided: 100 Instrument Used: 3mm curette Tissue Removed: Non viable tissue, subcutaneous tissue and muscle. Severity: Fat Layer Exposed (muscle is exposed. bone is exposed but not debrided.) Amount of bleeding with debridement: Mild Bleeding Controlled with: Compression and gauze Patient tolerated procedure: Patient tolerated procedure well Debridement Free Text: Bone exposed but not debrided. Post-Debridement Measurements and Additional Note: Post-Debridement Measurements/Treatment - Nurse 1 - General Ulcer Assessment Start: 01/12/24 08:53 Freq: Status: Active Protocol: ELENA Activity Type Activity Date Activity User E-sign Co-sign Detail Recorded Client Recorded Date Recorded By Document 01/12/24 08:53 [facility] Desktop 01/12/24 09:03 [facility] 01/12/24 08:53 WC - Today's Visit Information Type of service Follow-up Visit (Physician/CONE WINDER ) Arrival Mode Ambulatory Transfer Assistance None Patient Identification Verified (Name & Yes ) Patient Requires Transmission-Based No Precautions Vital Signs Temperature (97.8 F-99.1 F) 97.3 F L Temperature Source Temporal Pulse Rate (60-100) 91 Pulse Location Monitor Respiratory Rate (12-18) 16 Respiratory rate source Observation Oxygen Delivery Method Room Air Blood Pressure (90/60-120/80) 117/62 Blood Pressure Mean (mm Hg) 80 Source Monitor Position Sitting Blood Pressure Location Left Arm History Since Last Visit- (Skip if this is Patient's initial visit) Have you changed medications since your No last visit? Any new allergies or adverse reactions No Had a fall/change in ADL's that may No increase risk of falls Signs or symptoms of abuse and/or No neglect since last visit Have you been in the hospital since your No last visit? Has dressing in place as prescribed Yes Has compression in place as prescribed Yes Has offloadiing in place as prescribed N/A Experienced any changes in pain level or No management Left Footwear Regular Shoe Right Footwear Regular Shoe Pain Scale: 0-10 Numeric Is Patient Pain Free? Yes - Nurse 1 - General Ulcer Measurement Start: 01/12/24 08:53 Freq: Status: Active Protocol: Activity Type Activity Date Activity User E-sign Co-sign Detail Recorded Client Recorded Date Recorded By Document 01/12/24 08:53 [facility] [employer] 01/12/24 09:03 [facility] 01/12/24 08:53 Wound Center Nurse 1 #8 L Tenorio post-op -Combined with other wound No -Current Size (cm) - Length 1.8 -Current Size (cm) - Width 0.9 -Current Size (cm) - Depth 0.4 -Total Square Cm 1.62 -Epithelialization None Present -Tunneling No -Undermining/Tunneling No -Circular Undermining No -Exudate Amt Medium -Exudate Type Serosanguineous -Wound Margin Distinct, Outline Attached -Granulation Amt Medium (34-66%) -Granulation Quality Red -Slough/Fibrin Yes -Necrosis Amt Medium (34-66%) -Necrotic Tissue Type Adherent Slough -Structure Exposed Bone -Texture (Mima-wound Skin Appearance) Assessed, Localized Edema ,Scarring -Moisture (Mima-wound Skin Appearance) Assessed,Dry/ Scaly -Color (Mima-wound Skin Appearance) Assessed -Temperature (Mima-wound Skin No Abnormality Appearance) (Pt Warm) -Tenderness on Palpation (Miam-wound No Skin Appearance) -Ulcer Cleansing Soap and Water -Foul Odor after Cleansing No -Anesthetic Used 5% Lidocaine Gel Lower Limb Edema Present Yes Left Calf (cm) 26.8 Left Ankle (cm) 18 WC - Nurse 2 - General Ulcer CM Notes Start: 01/12/24 08:53 Freq: Status: Active Protocol: Activity Type Activity Date Activity User E-sign Co-sign Detail Recorded Client Recorded Date Recorded By Document 01/12/24 09:22 Desktop 01/12/24 09:23 01/12/24 09:22 Wound Center Nurse 2 #8 L Tenorio post-op -Time 09:22 -Correct Patient Yes -Correct Side, Site, Position Yes -Correct Procedure Yes -Procedure Performed Yes -Type of Procedure Debridement -Clinical Debridement Muscle / Fascia -Tissue Removed Muscle -Post Debridement (cm) - Length 1.7 -Post Debridement (cm) - Width 0.7 -Post Debridement (cm) - Depth 0.3 -Total Square (Post) (cm) 1.19 -Area of Debridement (cm) - Length 1.7 -Area of Debridement (cm) - Width 0.7 -Total Square (Area) (cm) 1.19 -Tunneling No -Undermining/Tunneling No -Circular Undermining No -Wound/Ulcer Outcome Not Healed -Ulcer Cleansing Wound Cleanser -Foul Odor after Cleansing No -Bioengineered Tissue No -Bleeding Controlled with Pressure -Treatment Response Procedure Tolerated Well -Debridement - Muscle / Fascia, 1st Yes 20sq cm Pain Scale: 0-10 Numeric Is Patient Pain Free? Yes - Nurse 3 - General Ulcer D/C NN Start: 01/12/24 08:53 Freq: Status: Active Protocol: Activity Type Activity Date Activity User E-sign Co-sign Detail Recorded Client Recorded Date Recorded By Document 01/12/24 09:36 [facility] Desktop 01/12/24 09:37 K[facility] 01/12/24 09:36 Wound Care Center Nurse 3 #8 L Tenorio post-op -Primary Dressing Applied Aquacel AG 4x4, Mepilex Border -Aquacel AG 4x4 1 -Mepilex Border 1 Left -Tubular Bandage Double Layer -Size of Tubigrip Used Size C -Size C ($) 2 Pain Scale: 0-10 Numeric Is Patient Pain Free? 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: CODE(S): L97.926 - Non-pressure chronic ulcer of unspecified part of left lower leg with bone involvement without evidence of necrosis (2) MRSA (methicillin resistant Staphylococcus aureus) infection: CODE(S): A49.02 - Methicillin resistant Staphylococcus aureus infection, unspecified site (3) Osteomyelitis: CODE(S): M86.9 - Osteomyelitis, unspecified (4) Sequelae of open wound of left lower extremity: CODE(S): S81.802S - Unspecified open wound, left lower leg, sequela (5) DM type 2, goal HbA1c < 7%: CODE(S): E11.9 - Type 2 diabetes mellitus without complications (6) Smoker: CODE(S): F17.200 - Nicotine dependence, unspecified, uncomplicated PLAN: Plan Wound care - Continue moistened Aquacel-Ag covered with [place] SAP dressing changes daily. Wash ulcer with soap and water daily at the time of dressing change. Compression - Tubigrip. Prealbumin from 12/04/22 was 14.5. She has been seeing a fire extinguisher sprinkler inspector to help with increased calorie and protein intake. Patient states that she is drinking several supplements per day, with Jay being 2 of them. She states that she now weighs 101 lbs. HgbA1c from 07/19/22 was 5.7. For elective surgeries, the HgbA1c needs to be less than 8. The ulcer has reached a plateau. There is a small area of exposed bone. It will not heal without complex flap reconstruction. HBO may be helpful both before and after surgery for chronic refractory osteomyelitis. She had MRSA in the ulcer at the time of surgery in November,. Will need another culture before her next surgery. Arterial study completed 11/04/22. Triphasic Doppler waveforms at ankle level bilaterally. Right MARI by dorsalis pedis = 1.15.? Left MARI by dorsalis pedis = 1.28. There is no evidence of significant arterial occlusive disease in the lower extremities bilaterally. Encouraged patient to stop smoking as it may have deleterious effects on wound healing. She states that she is trying to cut back but is struggling with not smoking. Followup [address] Jones's previous note: Ideally the patient needs another microvascular free tissue transfer. Right now she would have to go to a tertiary center for that surgery. She would like to stay local if at all possible. May be able to do a local fasciocutaneous flap followed by skin graft of the donor area. I think the ulcer is just a tad too low for a soleus muscle flap. Will evaluate at the time of surgery. There may be issues with healing because of the scarring present. Anteriorly there is the muscle flap with skin graft. Could design the flap through the lateral edge of the muscle flap. Would base the fasciocutaneous flap of the medial perforators based on the tibial vessels. She is a smoker. Would proceed with a first stage delay which should help dilate the perforators to the skin that are constricted from the nicotine. The delay procedure can be done at the time of the operative debridement. At the time of that surgery, will recheck a Prealbumin and recheck a HgbA1c. Surgery would be done under general anesthesia with a surgical observation overnight stay in the hospital. Patient was informed of the risks and complications of the procedure including alternatives to surgery. These were discussed with the patient personally. Patient voices understanding. She wants the surgery but is a little nervous and will think about it. Encouraged patient to stop smoking as it may have deleterious effects on wound healing. She knows that smoking can be detrimental to any attempt at wound closure. She is trying to quit. She states she is at a half pack per day which is down from a pack a day. Also she had thickened, deformed toe nails with chronic fungal infection. Recommend seeing a [employer] to trim the nails and treat chronic fungal infection. Since the operative site is close to the involved toes, this would also increase the risk of suboptimal healing as well.
[2024-01-26 09:12] VITALS: BP 119/48; PULSE 94; RESP 18
--- NOTE | 2024-01-26 10:01 | PN.PCM_ITS ---
History of Present Illness Date of Service: 01/26/24 Chief Complaint: nonhealing ulcer left anterior leg. History of Wound: Surgery 12/03/22 - surgical preparation left anterior leg with incision and drainage and excisional debridement nonhealing infected MRSA ulcer and partial ostectomy tibia for osteomyelitis. Wound care - Silver dressings followed by Tubigrip. Operative Tissue and bone cultures positive for MRSA. Treated with IV Vancomycin. Infectious Diseases consulted. Pathology - pieces of bone with chronic inflammation and reactive changes, negative for acute osteomyelitis. Prealbumin from 12/04/22 was 14.5. Encouraged nutritional supplementation with protein to help with the healing process. HgbA1c from 07/19/22 was 5.7. HgbA1c needs to be less than 8 for elective surgeries. MRI left leg done on08/08/22 - Sinus tracts from the marrow of the mid to distal tibial diaphysis to the skin at the medial aspect. Marrow edema throughout the majority of the tibia. Findings concerning for osteomyelitis. Arterial study completed 11/04/22. Triphasic Doppler waveforms at ankle level bilaterally. Right MARI by dorsalis pedis = 1.15.? Left MARI by dorsalis pedis = 1.28. There is no evidence of significant arterial occlusive disease in the lower extremities bilaterally. Today she denies complaints of fever. Her appetite is ok. Progress of Wound: Ulcer appears slightly smaller. Depth stable. Bone still exposed. Mima wound clear. She has been drinking nutritional supplements twice daily and states that she is feeling better and now weighs over 100 lbs. Objective Data Objective Data Vital Signs: Vital Signs Temp Pulse Resp BP O2 Del Method 97.3 F L 94 18 119/48 L Room Air 01/12/24 08:53 01/26/24 09:12 01/26/24 09:12 01/26/24 09:12 01/26/24 09:12 Oxygen Delivery Method Room Air Charges/Coding Procedures Integumentary 111xxx-113xx: 33034 Miryam musc/fascia 20 sq cm/< Debridement Note Debridement Note Wound debrided: #8 Left anterior leg. Laterality: Left Wound Grade/Stage: Stage IV Type of Debridement: Excisional debridement Anesthesia Used: 4% Lidocaine Solution Depth: Down to and including healthy tissue, in the subcutaneous layer, to muscle and to bone (bone exposed but not debrided.) Percentage of wound debrided: 100 Instrument Used: 3mm curette Tissue Removed: Non viable tissue, subcutaneous tissue and muscle. Severity: Fat Layer Exposed (muscle is exposed. bone is exposed but not debrided.) Amount of bleeding with debridement: Mild Bleeding Controlled with: Compression and gauze Patient tolerated procedure: Patient tolerated procedure well Debridement Free Text: Bone exposed but not debrided. Post-Debridement Measurements and Additional Note: Post-Debridement Measurements/Treatment - Nurse 1 - General Ulcer Assessment Start: 01/12/24 08:53 Freq: Status: Active Protocol: ELENA Activity Type Activity Date Activity User E-sign Co-sign Detail Recorded Client Recorded Date Recorded By Document 01/12/24 08:53 [facility] Desktop 01/12/24 09:03 BMF Document 01/26/24 09:12 DL [id number] 01/26/24 09:16 DL 01/12/24 01/26/24 08:53 09:12 - Today's Visit Information Type of service Follow-up Visit Follow-up Visit (Physician/PAPER SHEETER (Physician/PAPER SHEETER ) ) Arrival Mode Ambulatory Ambulatory Transfer Assistance None Patient Identification Verified (Name & Yes Yes ) Patient Requires Transmission-Based No Precautions Vital Signs Temperature (97.8 F-99.1 F) 97.3 F L Temperature Source Temporal Pulse Rate (60-100) 91 94 Pulse Location Monitor Monitor Respiratory Rate (12-18) 16 18 Respiratory rate source Observation Ausculation Oxygen Delivery Method Room Air Room Air Blood Pressure (90/60-120/80) 117/62 119/48 L Blood Pressure Mean (mm Hg) 80 71 Source Monitor Monitor Position Sitting Semi-Fowlers Blood Pressure Location Left Arm Left Arm History Since Last Visit- (Skip if this is Patient's initial visit) Have you changed medications since your No No last visit? Any new allergies or adverse reactions No No Had a fall/change in ADL's that may No No increase risk of falls Signs or symptoms of abuse and/or No No neglect since last visit Have you been in the hospital since your No No last visit? Has dressing in place as prescribed Yes Yes Has compression in place as prescribed Yes Yes Has offloadiing in place as prescribed N/A N/A Experienced any changes in pain level or No No management Left Footwear Regular Shoe Regular Shoe Right Footwear Regular Shoe Regular Shoe Pain Scale: 0-10 Numeric Is Patient Pain Free? Yes Yes WC - Nurse 1 - General Ulcer Measurement Start: 01/12/24 08:53 Freq: Status: Active Protocol: Activity Type Activity Date Activity User E-sign Co-sign Detail Recorded Client Recorded Date Recorded By Document 01/12/24 08:53 BMF Desktop 01/12/24 09:03 BMF Document 01/26/24 09:12 DL [id number] 01/26/24 09:16 DL 01/12/24 01/26/24 08:53 09:12 Wound Center Nurse 1 #8 L Tenorio post-op -Combined with other wound No -Current Size (cm) - Length 1.8 1.7 -Current Size (cm) - Width 0.9 1.1 -Current Size (cm) - Depth 0.4 0.4 -Total Square Cm 1.62 1.87 -Epithelialization None Present -Tunneling No -Undermining/Tunneling No -Circular Undermining No -Exudate Amt Medium Medium -Exudate Type Serosanguineous Yellow/Green -Wound Margin Distinct, Distinct, Outline Outline Attached Attached -Granulation Amt Medium (34-66%) Small (1-33%) -Granulation Quality Red [place] -Slough/Fibrin Yes -Necrosis Amt Medium (34-66%) Small (1-33%) -Necrotic Tissue Type Adherent Slough Adherent Slough -Structure Exposed Bone Bone -Texture (Mima-wound Skin Appearance) Assessed, Assessed Localized Edema ,Scarring -Moisture (Mima-wound Skin Appearance) Assessed,Dry/ Assessed, Scaly Maceration -Color (Mima-wound Skin Appearance) Assessed Erythema -Temperature (Mima-wound Skin No Abnormality No Abnormality Appearance) (Pt Warm) (Pt Warm) -Tenderness on Palpation (Mima-wound No No Skin Appearance) -Ulcer Cleansing Soap and Water Soap and Water -Foul Odor after Cleansing No No -Anesthetic Used 5% Lidocaine 5% Lidocaine Gel Gel Lower Limb Edema Present Yes Left Calf (cm) 26.8 27.5 Left Ankle (cm) 18 18.2 WC - Nurse 2 - General Ulcer CM Notes Start: 01/12/24 08:53 Freq: Status: Active Protocol: Activity Type Activity Date Activity User E-sign Co-sign Detail Recorded Client Recorded Date Recorded By Document 01/12/24 09:22 Desktop 01/12/24 09:23 Document 01/26/24 09:34 [place] [id number] 01/26/24 09:36 DS 01/12/24 01/26/24 09:22 09:34 Wound Center Nurse 2 #8 L Tenorio post-op -Time 09:22 09:35 -Correct Patient Yes Yes -Correct Side, Site, Position Yes Yes -Correct Procedure Yes Yes -Procedure Performed Yes Yes -Type of Procedure Debridement Debridement -Clinical Debridement Muscle / Fascia Muscle / Fascia -Tissue Removed Muscle Muscle -Post Debridement (cm) - Length 1.7 1.9 -Post Debridement (cm) - Width 0.7 1.0 -Post Debridement (cm) - Depth 0.3 0.3 -Total Square (Post) (cm) 1.19 1.90 -Area of Debridement (cm) - Length 1.7 1.9 -Area of Debridement (cm) - Width 0.7 1.0 -Total Square (Area) (cm) 1.19 1.90 -Tunneling No No -Undermining/Tunneling No No -Circular Undermining No No -Wound/Ulcer Outcome Not Healed Not Healed -Ulcer Cleansing Wound Cleanser Rinsed/ Irrigated with Saline -Foul Odor after Cleansing No -Bioengineered Tissue No -Bleeding Controlled with Pressure Pressure -Treatment Response Procedure Procedure Tolerated Well Tolerated Well -Debridement - Muscle / Fascia, 1st Yes Yes 20sq cm Pain Scale: 0-10 Numeric Is Patient Pain Free? Yes Yes WC - Nurse 3 - General Ulcer D/C NN Start: 01/12/24 08:53 Freq: Status: Active Protocol: Activity Type Activity Date Activity User E-sign Co-sign Detail Recorded Client Recorded Date Recorded By Document 01/12/24 09:36 KW Desktop 01/12/24 09:37 KW Document 01/26/24 09:43 KW wound center 01/26/24 09:46 KW 01/12/24 01/26/24 09:36 09:43 Wound Care Center Nurse 3 #8 L Tenorio post-op -Ulcer Cleansing Rinsed/ Irrigated with Saline -Foul Odor after Cleansing No -Primary Dressing Applied Aquacel AG 4x4, Aquacel AG 4x4, Mepilex Border Mepilex Border -Aquacel AG 4x4 1 1 -Mepilex Border 1 1 Left -Tubular Bandage Double Layer Double Layer -Size of Tubigrip Used Size C Size C -Size C ($) 2 2 Treatment Response Procedure Tolerated Well Pain Scale: 0-10 Numeric Is Patient Pain Free? 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: CODE(S): L97.926 - Non-pressure chronic ulcer of unspecified part of left lower leg with bone involvement without evidence of necrosis (2) MRSA (methicillin resistant Staphylococcus aureus) infection: CODE(S): A49.02 - Methicillin resistant Staphylococcus aureus infection, unspecified site (3) Osteomyelitis: CODE(S): M86.9 - Osteomyelitis, unspecified (4) Sequelae of open wound of left lower extremity: CODE(S): S81.802S - Unspecified open wound, left lower leg, sequela (5) DM type 2, goal HbA1c < 7%: CODE(S): E11.9 - Type 2 diabetes mellitus without complications (6) Smoker: CODE(S): F17.200 - Nicotine dependence, unspecified, uncomplicated PLAN: Plan Wound care - Continue moistened Aquacel-Ag covered with [place] SAP dressing changes daily. Wash ulcer with soap and water daily at the time of dressing change. Compression - Tubigrip. Prealbumin from 12/04/22 was 14.5. She has been seeing a research support specialist to help with increased calorie and protein intake. Patient states that she is drinking several supplements per day, with Jay being 2 of them. She states that she now weighs over 100 lbs. HgbA1c from 07/19/22 was 5.7. For elective surgeries, the HgbA1c needs to be less than 8. The ulcer has reached a plateau. There is a small area of exposed bone. It will not heal without complex flap reconstruction. HBO may be helpful both before and after surgery for chronic refractory osteomyelitis. She had MRSA in the ulcer at the time of surgery in November,. Will need another culture before her next surgery. Arterial study completed 11/04/22. Triphasic Doppler waveforms at ankle level bilaterally. Right MARI by dorsalis pedis = 1.15.? Left MARI by dorsalis pedis = 1.28. There is no evidence of significant arterial occlusive disease in the lower extremities bilaterally. Encouraged patient to stop smoking as it may have deleterious effects on wound healing. She states that she is trying to cut back but is struggling with not sm oking. Will refer to Dr. Estevez, tire adjuster, for further evaluation of treatments. Follow up 1-[address] Estevez. Followup 3 weeks with me. From Dr. Jones's previous note: Ideally the patient needs another microvascular free tissue transfer. Right now she would have to go to a tertiary center for that surgery. She would like to stay local if at all possible. May be able to do a local fasciocutaneous flap followed by skin graft of the donor area. I think the ulcer is just a tad too low for a soleus muscle flap. Will evaluate at the time of surgery. There may be issues with healing because of the scarring present. Anteriorly there is the muscle flap with skin graft. Could design the flap through the lateral edge of the muscle flap. Would base the fasciocutaneous flap of the medial perforators based on the tibial vessels. She is a smoker. Would proceed with a first stage delay which should help dilate the perforators to the skin that are constricted from the nicotine. The delay procedure can be done at the time of the operative debridement. At the time of that surgery, will recheck a Prealbumin and recheck a HgbA1c. Surgery would be done under general anesthesia with a surgical observation overnight stay in the hospital. Patient was informed of the risks and complications of the procedure including alternatives to surgery. These were discussed with the patient personally. Patient voices understanding. She wants the surgery but is a little nervous and will think about it. Encouraged patient to stop smoking as it may have deleterious effects on wound healing. She knows that smoking can be detrimental to any attempt at wound closure. She is trying to quit. She states she is at a half pack per day which is down from a pack a day. Also she had thickened, deformed toe nails with chronic fungal infection. Recommend seeing a Centralized Traffic Control Operator to trim the nails and treat chronic fungal infection. Since the operative site is close to the involved toes, this would also increase the risk of suboptimal healing as well.
== END 2024-02-06 23:59 | disposition home or self-care (01) ==
LOC: WC 09:30
PROVIDERS: Referring Provider Nurse Practitioner Family; Visit Provider Nurse Practitioner Family
DX: L97.926 Non-pressure chronic ulcer of unspecified part of left lower leg with bone involvement without evidence of necrosis (principal); M86.9 Osteomyelitis, unspecified; E11.69 Type 2 diabetes mellitus with other specified complication; A49.02 Methicillin resistant Staphylococcus aureus infection, unspecified site; S81.802S Unspecified open wound, left lower leg, sequela; F17.210 Nicotine dependence, cigarettes, uncomplicated
CPT/HCPCS: 11043

== ENCOUNTER 2024-01-26 10:09 | Outpatient (RCR) | payer MEDICAID, SELFPAY ==
[2024-01-07 00:20] VITALS: BP 131/68; PULSE 77; RESP 18; TEMP 36.7
== END 2024-02-06 23:59 ==
LOC: NS 10:09
PROVIDERS: Referring Provider Podiatrist; Visit Provider Nurse Practitioner Family
DX: Z71.3 Dietary counseling and surveillance (principal); E46 Unspecified protein-calorie malnutrition; E11.9 Type 2 diabetes mellitus without complications; J44.9 Chronic obstructive pulmonary disease, unspecified; E78.5 Hyperlipidemia, unspecified
CPT/HCPCS: 97803

== ENCOUNTER → 2024-02-12 | Outpatient (CLI) | payer MEDICAID, SELFPAY ==
--- NOTE | 2024-02-12 08:07 | CT_ITS ---
STUDY: CT CHEST WITH CONTRAST REASON FOR EXAM: Female, 63 years old. AXILLARY LYMPHADENOPATHY. Left axillary fullness. RADIATION DOSAGE (If Supplied By Facility): CTDIvol = ( 7.86 ) mGy, DLP = ( 219.39 ) mGycm TECHNIQUE: Transaxial imaging was performed following intravenous administration of IV 100mL Isovue-370. Multiplanar coronal and sagittal images were reformatted. Individualized dose optimization techniques were used for this CT. COMPARISON: No relevant priors. FINDINGS: CHEST There are small bilateral benign-appearing axillary lymph nodes. No axillary mass is seen. The lungs are normal. There is no demonstrated pleural abnormality. Normal heart and pericardium. No coronary artery calcification is seen. Normal mediastinum. Normal hilar regions. Normal unenhanced pulmonary arteries. There is mild atherosclerotic calcification of the aortic arch. Normal osseous structures. Status post right shoulder replacement. Healed left-sided rib fractures. There is no demonstrated abnormality of the visualized upper abdomen. CT/Chest WITH Contrast IMPRESSION: No axillary masses seen. The lungs are clear. Electronically Signed: Diony Fonseca MD at 9:34 EDT ,
[2024-02-12 08:45] LABS: CREATININE FINGERSTICK < 1.0 mg/dL (0.55-1.02); EGFR FINGERSTICK > 60.0000 mL/min (>60)
== END | disposition home or self-care (01) ==
LOC: CT 08:02
DX: R59.0 Localized enlarged lymph nodes (principal)
CPT/HCPCS: 71260; Q9967

== ENCOUNTER 2024-03-03 09:30 | Outpatient (RCR) | payer MEDICAID, SELFPAY ==
[2024-02-07 02:23] VITALS: BP 129/55; PULSE 92; RESP 18; TEMP 36.8
[2024-02-23 09:10] VITALS: BP 146/72; PULSE 93; RESP 16
--- NOTE | 2024-02-23 09:56 | PCM.WC.PN ---
History of Present Illness Date of Service: 02/23/24 Chief Complaint: nonhealing ulcer left anterior leg. History of Wound: Surgery 12/03/22 - surgical preparation left anterior leg with incision and drainage and excisional debridement nonhealing infected MRSA ulcer and partial ostectomy tibia for osteomyelitis. Wound care - Silver dressings followed by Tubigrip. Operative Tissue and bone cultures positive for MRSA. Treated with IV Vancomycin. Infectious Diseases consulted. Pathology - pieces of bone with chronic inflammation and reactive changes, negative for acute osteomyelitis. Prealbumin from 12/04/22 was 14.5. Encouraged nutritional supplementation with protein to help with the healing process. HgbA1c from 07/19/22 was 5.7. HgbA1c needs to be less than 8 for elective surgeries. MRI left leg done on08/08/22 - Sinus tracts from the marrow of the mid to distal tibial diaphysis to the skin at the medial aspect. Marrow edema throughout the majority of the tibia. Findings concerning for osteomyelitis. Arterial study completed 11/04/22. Triphasic Doppler waveforms at ankle level bilaterally. Right MARI by dorsalis pedis = 1.15.? Left MARI by dorsalis pedis = 1.28. There is no evidence of significant arterial occlusive disease in the lower extremities bilaterally. Today she denies complaints of fever. Her appetite is ok. Progress of Wound: Ulcer is stable. Depth stable. Bone still exposed. Mima wound clear. She continues to drink nutritional supplements twice daily. Objective Data Objective Data Vital Signs: Vital Signs Temp Pulse Resp BP O2 Del Method 98.2 F 93 16 146/72 H Room Air 02/07/24 02:23 02/23/24 09:10 02/23/24 09:10 02/23/24 09:10 02/23/24 09:10 Oxygen Delivery Method Room Air Charges/Coding Procedures Integumentary 111xxx-113xx: 35372 Miryam musc/fascia 20 sq cm/< Debridement Note Debridement Note Wound debrided: #8 Left anterior leg. Laterality: Left Wound Grade/Stage: Stage IV Type of Debridement: Excisional debridement Anesthesia Used: 4% Lidocaine Solution Depth: Down to and including healthy tissue, in the subcutaneous layer, to muscle and to bone (bone exposed but not debrided.) Percentage of wound debrided: 100 Instrument Used: 3mm curette Tissue Removed: Non viable tissue, subcutaneous tissue and muscle. Severity: Fat Layer Exposed (muscle is exposed. bone is exposed but not debrided.) Amount of bleeding with debridement: Mild Bleeding Controlled with: Compression and gauze Patient tolerated procedure: Patient tolerated procedure well Debridement Free Text: Bone exposed but not debrided. Post-Debridement Measurements and Additional Note: Post-Debridement Measurements/Treatment - Nurse 1 - General Ulcer Assessment Start: 02/23/24 09:10 Freq: Status: Active Protocol: ELENA Activity Type Activity Date Activity User E-sign Co-sign Detail Recorded Client Recorded Date Recorded By Document 02/23/24 09:10 [facility] 02/23/24 09:15 [facility] 02/23/24 09:10 WC - Today's Visit Information Type of service Follow-up Visit (Physician/POLY AREA SUPERVISOR ) Arrival Mode Ambulatory Transfer Assistance None Patient Identification Verified (Name & Yes ) Patient Requires Transmission-Based No Precautions Vital Signs Pulse Rate (60-100) 93 Pulse Location Monitor Respiratory Rate (12-18) 16 Respiratory rate source Observation Oxygen Delivery Method Room Air Blood Pressure (90/60-120/80) 146/72 H Blood Pressure Mean (mm Hg) 96 Source Monitor Position Sitting Blood Pressure Location Left Arm History Since Last Visit- (Skip if this is Patient's initial visit) Have you changed medications since your No last visit? Any new allergies or adverse reactions No Had a fall/change in ADL's that may No increase risk of falls Signs or symptoms of abuse and/or No neglect since last visit Have you been in the hospital since your No last visit? Has dressing in place as prescribed Yes Has compression in place as prescribed Yes Has offloadiing in place as prescribed N/A Experienced any changes in pain level or No management Left Footwear Regular Shoe Right Footwear Regular Shoe Pain Scale: 0-10 Numeric Is Patient Pain Free? Yes - Nurse 1 - General Ulcer Measurement Start: 02/23/24 09:10 Freq: Status: Active Protocol: Activity Type Activity Date Activity User E-sign Co-sign Detail Recorded Client Recorded Date Recorded By Document 02/23/24 09:10 [facility] 02/23/24 09:15 [facility] 02/23/24 09:10 Wound Center Nurse 1 #8 L Tenorio post-op -Combined with other wound No -Current Size (cm) - Length 1.5 -Current Size (cm) - Width 0.8 -Current Size (cm) - Depth 0.4 -Total Square Cm 1.20 -Epithelialization None Present -Tunneling No -Undermining/Tunneling No -Circular Undermining No -Exudate Amt Medium -Exudate Type Serosanguineous -Wound Margin Distinct, Outline Attached -Granulation Amt Small (1-33%) -Granulation Quality Red -Slough/Fibrin Yes -Necrosis Amt Large (67-100%) -Necrotic Tissue Type Adherent Slough -Structure Exposed Bone -Texture (Mima-wound Skin Appearance) Assessed, Scarring -Moisture (Mima-wound Skin Appearance) Assessed,Dry/ Scaly -Color (Mima-wound Skin Appearance) Assessed -Temperature (Mima-wound Skin No Abnormality Appearance) (Pt Warm) -Tenderness on Palpation (Mima-wound No Skin Appearance) -Ulcer Cleansing Soap and Water -Foul Odor after Cleansing No -Anesthetic Used 5% Lidocaine Gel WC - Nurse 2 - General Ulcer CM Notes Start: 02/23/24 09:10 Freq: Status: Active Protocol: Activity Type Activity Date Activity User E-sign Co-sign Detail Recorded Client Recorded Date Recorded By Document 02/23/24 09:41 JF [id number] 02/23/24 09:45 [facility] 02/23/24 09:41 Wound Center Nurse 2 -Time 09:41 -Correct Patient Yes -Correct Side, Site, Position Yes -Correct Procedure Yes -Procedure Performed Yes -Type of Procedure Debridement -Clinical Debridement Muscle / Fascia -Tissue Removed Muscle,Fascia -Post Debridement (cm) - Length 1.2 -Post Debridement (cm) - Width 0.9 -Post Debridement (cm) - Depth 0.2 -Total Square (Post) (cm) 1.08 -Area of Debridement (cm) - Length 1.2 -Area of Debridement (cm) - Width 0.9 -Total Square (Area) (cm) 1.08 -Tunneling No -Undermining/Tunneling No -Circular Undermining No -Wound/Ulcer Outcome Not Healed -Ulcer Cleansing Rinsed/ Irrigated with Saline -Foul Odor after Cleansing No -Bioengineered Tissue No -Bleeding Controlled with Pressure -Treatment Response Procedure Tolerated Well -Offloading No -Debridement - Muscle / Fascia, 1st Yes 20sq cm Pain Scale: 0-10 Numeric Is Patient Pain Free? Yes WC - Nurse 3 - General Ulcer D/C NN Start: 02/23/24 09:10 Freq: Status: Active Protocol: Activity Type Activity Date Activity User E-sign Co-sign Detail Recorded Client Recorded Date Recorded By Document 02/23/24 09:50 KW l 02/23/24 09:51 KW 02/23/24 09:50 Wound Care Center Nurse 3 #8 L Tenorio post-op -Primary Dressing Applied Aquacel AG 2x2, Mepilex Border -Aquacel Extra 1 -Aquacel AG 2x2 1 -Mepilex Border 1 Left -Tubular Bandage Double Layer -Size of Tubigrip Used Size C -Size C ($) 2 Pain Scale: 0-10 Numeric Is Patient Pain Free? 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: CODE(S): L97.926 - Non-pressure chronic ulcer of unspecified part of left lower leg with bone involvement without evidence of necrosis (2) MRSA (methicillin resistant Staphylococcus aureus) infection: CODE(S): A49.02 - Methicillin resistant Staphylococcus aureus infection, unspecified site (3) Osteomyelitis: CODE(S): M86.9 - Osteomyelitis, unspecified (4) Sequelae of open wound of left lower extremity: CODE(S): S81.802S - Unspecified open wound, left lower leg, sequela (5) DM type 2, goal HbA1c < 7%: CODE(S): E11.9 - Type 2 diabetes mellitus without complications (6) Smoker: CODE(S): F17.200 - Nicotine dependence, unspecified, uncomplicated PLAN: Plan Wound care - Continue moistened Aquacel-Ag covered with [place] SAP dressing changes daily. Wash ulcer with soap and water daily at the time of dressing change. Compression - Tubigrip. Prealbumin from 12/04/22 was 14.5. She has been seeing a out and out cigar maker hand to help with increased calorie and protein intake. Patient states that she is drinking several supplements per day, with Jay being 2 of them. She states that she now weighs over 100 lbs. HgbA1c from 07/19/22 was 5.7. For elective surgeries, the HgbA1c needs to be less than 8. The ulcer has reached a plateau. There is a small area of exposed bone. It will not heal without complex flap reconstruction. HBO may be helpful both before and after surgery for chronic refractory osteomyelitis. She had MRSA in the ulcer at the time of surgery in November,. Will need another culture before her next surgery. Arterial study completed 11/04/22. Triphasic Doppler waveforms at ankle level bilaterally. Right MARI by dorsalis pedis = 1.15.? Left MARI by dorsalis pedis = 1.28. There is no evidence of significant arterial occlusive disease in the lower extremities bilaterally. Encouraged patient to stop smoking as it may have deleterious effects on wound healing. She states that she is trying to cut back but is struggling with not smoking. Will refer to Dr. Estevez, set up mold technician, for further evaluation of treatments. Follow up 1-[address] Estevez. Followup 3 weeks with me.
[2024-03-03 09:57] VITALS: BP 118/64; PULSE 90; RESP 18; TEMP 36.6
--- NOTE | 2024-03-03 11:05 | HP.PCM_ITS ---
HPI - General General Date of Admission: 03/03/24 Date of Service: 03/03/24 Chief Complaint: Left leg full-thickness wound HPI Narrative ANGELA JERONIMO, is a 63 F who presents COUNTS INCLUDE 234 BEDS AT THE [facility] Medical History Anemia Anxiety Depression DM type 2, goal HbA1c < 7% DM type 2, goal HbA1c < 7% Emphysema, unspecified Epilepsy FH: bilateral hip replacements Gastric reflux High cholesterol Loss of hearing MRSA (methicillin resistant Staphylococcus aureus) infection Myocardial infarct Open wound Osteomyelitis Seizures Sequelae of open wound of left lower extremity Smoker Ulcer of left yoder limited to breakdown of skin Wears dentures Wears glasses Home Medications ?Medication ?Instructions ?Recorded ?Last Taken ?Type alendronate 70 mg tablet 70 mg PO SA BONES 12/22/16 06/10/20 History ipratropium 20 mcg-albuterol 100 1 puff inhalation Q4H SOB 12/22/16 Unknown History mcg/actuation mist for inhalation (Combivent Respimat) phenytoin sodium extended 100 mg 100 mg PO BID@0900,1700 SEIZURES 12/22/16 12/03/22 04:30 History capsule aclidinium bromide 400 400 mcg IH BID SOB 06/12/20 06/12/20 History mcg/actuation breath activated powder inhaler ascorbic acid (vitamin C) 500 mg 500 mg PO DAILY SUPPLEMENT 06/12/20 06/12/20 History tablet benzonatate 100 mg capsule 100 mg PO DAILY PRN Cough 06/12/20 Unknown History cyclobenzaprine 10 mg tablet 10 mg PO BID PRN PRN BACK 06/12/20 Unknown History diclofenac sodium 75 mg 75 mg PO BID PRN PRN BACK PAIN 06/12/20 Unknown History tablet,delayed release fluticasone propionate 100 2 puff inhalation BID COPD 06/12/20 06/12/20 History mcg/actuation blister powder for inhalation folic acid 1 mg tablet 1 mg PO BID SUPPLEMENT 06/12/20 06/12/20 History loratadine 10 mg tablet 10 mg PO DAILY ALLERGIES 06/12/20 12/03/22 04:30 History pravastatin 20 mg tablet 20 mg PO QHS CHOLESTEROL 06/12/20 06/11/20 History cholecalciferol (vitamin D3) 25 5,000 unit PO DAILY 06/15/20 Unknown Rx mcg (1,000 unit) tablet lorazepam 0.5 mg tablet (Ativan) 0.5 mg PO BID PRN anxiety #10 tabs 07/08/22 Unknown Rx omeprazole 40 mg capsule,delayed 40 mg PO DAILY #30 caps 07/08/22 12/03/22 04:30 Rx release L.acidophil,salivari-Bifido 1 cap PO DAILY #30 caps 12/05/22 Unknown Rx bifidum-Strep thermoph 175 mg capsule (Acidophilus Probiotic Blend) vancomycin 1 gram/200 mL in 1,000 mg IV Q12H 40 days #80 doses 12/05/22 Unknown Rx dextrose 5 % intravenous piggyback oxycodone-acetaminophen 5 mg-325 1 tab PO BID PRN PRN pain (scale 01/10/23 Unknown Rx mg tablet (Percocet) score 7-10) 7 days #14 tabs oxycodone-acetaminophen 5 mg-325 1 tab PO DAILY PRN pain (scale 01/23/23 Unknown Rx mg tablet (Percocet) score 7-10) 7 days #7 tabs lidocaine 5 % topical patch 1 patch topical DAILY #15 ea 04/07/23 Unknown Rx (Lidoderm) docusate sodium 100 mg capsule 100 mg PO BID #60 caps 05/02/23 Unknown Rx (Colace) promethazine 25 mg tablet 25 mg PO Q6H PRN nausea and 05/02/23 Unknown Rx vomiting #30 tabs nitroglycerin 0.4 mg sublingual 0.4 mg sublingual Q5M 08/18/23 Unknown History tablet (Nitrostat) sertraline 50 mg tablet (Zoloft) 50 mg PO DAILY 08/18/23 Unknown History trazodone 50 mg tablet 25 - 50 mg PO QHS 01/12/24 Unknown History Allergy/AdvReac Type Severity Reaction Status Date / Time Penicillins Allergy Severe Shortness Verified 09/09/23 09:17 of breath amoxicillin Allergy Hives Verified 09/09/23 09:17 aspirin AdvReac it chokes Verified 09/09/23 09:17 me. Surgical History H/O repair of right rotator cuff H/O: hysterectomy History of cardiac catheterization History of cholecystectomy Social History Smoking Status: Current every day smoker tobacco type: cigarettes Vital Signs Vital Signs Vital Signs: 03/03/24 09:57 Temperature 98 F Temperature Source Temporal Pulse Rate 90 Respiratory Rate 18 Blood Pressure 118/64 Blood Pressure Mean 82 Blood Pressure Source Monitor Blood Pressure Position Sitting Blood Pressure Location Left Arm
--- NOTE | 2024-03-03 11:05 | HP.PCM_ITS ---
History of Present Illness Date of Service: 03/03/24 Chief Complaint: nonhealing ulcer left anterior leg. History of Wound: Surgery 12/03/22 - surgical preparation left anterior leg with incision and drainage and excisional debridement nonhealing infected MRSA ulcer and partial ostectomy tibia for osteomyelitis. Wound care - Silver dressings followed by Tubigrip. Operative Tissue and bone cultures positive for MRSA. Treated with IV Vancomycin. Infectious Diseases consulted. Pathology - pieces of bone with chronic inflammation and reactive changes, negative for acute osteomyelitis. Prealbumin from 12/04/22 was 14.5. Encouraged nutritional supplementation with protein to help with the healing process. HgbA1c from 07/19/22 was 5.7. HgbA1c needs to be less than 8 for elective surgeries. MRI left leg done on08/08/22 - Sinus tracts from the marrow of the mid to distal tibial diaphysis to the skin at the medial aspect. Marrow edema throughout the majority of the tibia. Findings concerning for osteomyelitis. Arterial study completed 11/04/22. Triphasic Doppler waveforms at ankle level bilaterally. Right MARI by dorsalis pedis = 1.15.? Left MARI by dorsalis pedis = 1.28. There is no evidence of significant arterial occlusive disease in the lower extremities bilaterally. Today she denies complaints of fever. Her appetite is ok. Progress of Wound: Ms. Calvert is a 63-year-old female presented wound care center today for evaluation of full-thickness wound to bone to the left leg. Patient has seen multiple providers and has had a chronic wound for the past 9 years. She was evaluated today by podiatry for possible surgical intervention. She denies any pain to left lower extremity. She admits that her wound was originally from trauma. She admits to smoking 1 pack of cigarettes per day and states she is trying to quit. She denies any new onset of trauma. Denies constitutional symptoms. No other complaints at this time. [facility] Medical History Anemia Anxiety Depression DM type 2, goal HbA1c < 7% DM type 2, goal HbA1c < 7% Emphysema, unspecified Epilepsy FH: bilateral hip replacements Gastric reflux High cholesterol Loss of hearing MRSA (methicillin resistant Staphylococcus aureus) infection Myocardial infarct Open wound Osteomyelitis Seizures Sequelae of open wound of left lower extremity Smoker Ulcer of left tenorio limited to breakdown of skin Wears dentures Wears glasses Home Medications ?Medication ?Instructions ?Recorded ?Last Taken ?Type alendronate 70 mg tablet 70 mg PO SA BONES 12/22/16 06/10/20 History ipratropium 20 mcg-albuterol 100 1 puff inhalation Q4H SOB 12/22/16 Unknown History mcg/actuation mist for inhalation (Combivent Respimat) phenytoin sodium extended 100 mg 100 mg PO BID@0900,1700 SEIZURES 12/22/16 12/03/22 04:30 History capsule aclidinium bromide 400 400 mcg IH BID SOB 06/12/20 06/12/20 History mcg/actuation breath activated powder inhaler ascorbic acid (vitamin C) 500 mg 500 mg PO DAILY SUPPLEMENT 06/12/20 06/12/20 History tablet benzonatate 100 mg capsule 100 mg PO DAILY PRN Cough 06/12/20 Unknown History cyclobenzaprine 10 mg tablet 10 mg PO BID PRN PRN BACK 06/12/20 Unknown History diclofenac sodium 75 mg 75 mg PO BID PRN PRN BACK PAIN 06/12/20 Unknown History tablet,delayed release fluticasone propionate 100 2 puff inhalation BID COPD 06/12/20 06/12/20 History mcg/actuation blister powder for inhalation folic acid 1 mg tablet 1 mg PO BID SUPPLEMENT 06/12/20 06/12/20 History loratadine 10 mg tablet 10 mg PO DAILY ALLERGIES 06/12/20 12/03/22 04:30 History pravastatin 20 mg tablet 20 mg PO QHS CHOLESTEROL 06/12/20 06/11/20 History cholecalciferol (vitamin D3) 25 5,000 unit PO DAILY 06/15/20 Unknown Rx mcg (1,000 unit) tablet lorazepam 0.5 mg tablet (Ativan) 0.5 mg PO BID PRN anxiety #10 tabs 07/08/22 Unknown Rx omeprazole 40 mg capsule,delayed 40 mg PO DAILY #30 caps 07/08/22 12/03/22 04:30 Rx release L.acidophil,salivari-Bifido 1 cap PO DAILY #30 caps 12/05/22 Unknown Rx bifidum-Strep thermoph 175 mg capsule (Acidophilus Probiotic Blend) vancomycin 1 gram/200 mL in 1,000 mg IV Q12H 40 days #80 doses 12/05/22 Unknown Rx dextrose 5 % intravenous piggyback oxycodone-acetaminophen 5 mg-325 1 tab PO BID PRN PRN pain (scale 01/10/23 Unknown Rx mg tablet (Percocet) score 7-10) 7 days #14 tabs oxycodone-acetaminophen 5 mg-325 1 tab PO DAILY PRN pain (scale 01/23/23 Unknown Rx mg tablet (Percocet) score 7-10) 7 days #7 tabs lidocaine 5 % topical patch 1 patch topical DAILY #15 ea 04/07/23 Unknown Rx (Lidoderm) docusate sodium 100 mg capsule 100 mg PO BID #60 caps 05/02/23 Unknown Rx (Colace) promethazine 25 mg tablet 25 mg PO Q6H PRN nausea and 05/02/23 Unknown Rx vomiting #30 tabs nitroglycerin 0.4 mg sublingual 0.4 mg sublingual Q5M 08/18/23 Unknown History tablet (Nitrostat) sertraline 50 mg tablet (Zoloft) 50 mg PO DAILY 08/18/23 Unknown History trazodone 50 mg tablet 25 - 50 mg PO QHS 01/12/24 Unknown History Allergy/AdvReac Type Severity Reaction Status Date / Time Penicillins Allergy Severe Shortness Verified 09/09/23 09:17 of breath amoxicillin Allergy Hives Verified 09/09/23 09:17 aspirin AdvReac it chokes Verified 09/09/23 09:17 me. Surgical History H/O repair of right rotator cuff H/O: hysterectomy History of cardiac catheterization History of cholecystectomy Social History Smoking Status: Current every day smoker tobacco type: cigarettes Vital Signs Vital Signs Vital Signs: 03/03/24 09:57 Temperature 98 F Temperature Source Temporal Pulse Rate 90 Respiratory Rate 18 Blood Pressure 118/64 Blood Pressure Mean 82 Blood Pressure Source Monitor Blood Pressure Position Sitting Blood Pressure Location Left Arm Physical Exam Narrative Vascular: DP and PT pulses are palpable. CFT is brisk. Skin temperature great is warm to warm from proximal ankle to the distal digits to left lower extremity. Nonpitting edema appreciated to left lower extremity. Neurological: Light touch intact. Patient does respond to painful stimuli. Dermatological: Full-thickness ulceration down to bone to the level of the mid tibia measuring 1.9 x 1.0 x 1.0 cm. Positive probe to bone. No malodor. No active drainage. Excisional debridement down to and including subcutaneous tissue, muscle, fascia and bone with a rongeur to the left tibia full-thickness ulceration without incident. Predebridement measurement was 1.8 x 0.9 x 0.5 cm. Postdebridement measurement is 1.9 x 1.0 x 1.0 cm Musculoskeletal: No pain on palpation of full-thickness ulceration to left tibia. No pain with calf compression. Debridement Note Debridement Note Debridement Free Text: Excisional debridement down to and including subcutaneous tissue, muscle, fascia and bone with a rongeur to the left tibia full-thickness ulceration without incident. Predebridement measurement was 1.8 x 0.9 x 0.5 cm. Postdebridement measurement is 1.9 x 1.0 x 1.0 cm Post-Debridement Measurements and Additional Note: Post-Debridement Measurements/Treatment - Nurse 1 - General Ulcer Assessment Start: 02/23/24 09:10 Freq: Status: Active Protocol: ELENA Activity Type Activity Date Activity User E-sign Co-sign Detail Recorded Client Recorded Date Recorded By Document 02/23/24 09:10 [facility] 02/23/24 09:15 [facility] Document 03/03/24 09:57 [id number] 03/03/24 09:59 MD 02/23/24 03/03/24 09:10 09:57 - Today's Visit Information Type of service Follow-up Visit Follow-up Visit (Physician/CHIEF TELEPHONE OPERATOR (Physician/CHIEF TELEPHONE OPERATOR ) ) Arrival Mode Ambulatory Ambulatory Transfer Assistance None Accompanied by self Patient Identification Verified (Name & Yes Yes ) Patient Requires Transmission-Based No Precautions Vital Signs Temperature (97.8 F-99.1 F) 98 F Temperature Source Temporal Pulse Rate (60-100) 93 90 Pulse Location Monitor Monitor Respiratory Rate (12-18) 16 18 Respiratory rate source Observation Monitor Oxygen Delivery Method Room Air Blood Pressure (90/60-120/80) 146/72 H 118/64 Blood Pressure Mean 96 82 Source Monitor Monitor Position Sitting Sitting Blood Pressure Location Left Arm Left Arm History Since Last Visit- (Skip if this is Patient's initial visit) Have you changed medications since your No last visit? Any new allergies or adverse reactions No Had a fall/change in ADL's that may No increase risk of falls Signs or symptoms of abuse and/or No neglect since last visit Have you been in the hospital since your No last visit? Has dressing in place as prescribed Yes Yes Has compression in place as prescribed Yes Yes Has offloadiing in place as prescribed N/A Yes Experienced any changes in pain level or No Yes management Left Footwear Regular Shoe Regular Shoe Right Footwear Regular Shoe Regular Shoe Pain Scale: 0-10 Numeric Is Patient Pain Free? Yes Yes WC - Nurse 1 - General Ulcer Measurement Start: 02/23/24 09:10 Freq: Status: Active Protocol: Activity Type Activity Date Activity User E-sign Co-sign Detail Recorded Client Recorded Date Recorded By Document 02/23/24 09:10 [facility] 02/23/24 09:15 [facility] Document 03/03/24 09[facility]57 [id number] 03/03/24 09:59 MD 02/23/24 03/03/24 09:10 09:57 Wound Center Nurse 1 #8 L Tenorio post-op -Combined with other wound No -Current Size (cm) - Length 1.5 1.5 -Current Size (cm) - Width 0.8 1.2 -Current Size (cm) - Depth 0.4 0.3 -Total Square Cm 1.20 1.80 -Epithelialization None Present -Tunneling No -Undermining/Tunneling No -Circular Undermining No -Exudate Amt Medium Medium -Exudate Type Serosanguineous Serosanguineous -Wound Margin Distinct, Thickened & Outline Rolled Under Attached -Granulation Amt Small (1-33%) Large (67-100%) -Granulation Quality Red Pale,[place] -Slough/Fibrin Yes -Necrosis Amt Large (67-100%) Small (1-33%) -Necrotic Tissue Type Adherent Slough Adherent Slough -Structure Exposed Bone -Texture (Mima-wound Skin Appearance) Assessed, Assessed Scarring -Moisture (Mima-wound Skin Appearance) Assessed,Dry/ Assessed Scaly -Color (Mima-wound Skin Appearance) Assessed Assessed -Temperature (Mima-wound Skin No Abnormality No Abnormality Appearance) (Pt Warm) (Pt Warm) -Tenderness on Palpation (Mima-wound No No Skin Appearance) -Ulcer Cleansing Soap and Water Soap and Water -Foul Odor after Cleansing No No -Anesthetic Used 5% Lidocaine 5% Lidocaine Gel Gel Lower Limb Edema Present NA WC - Nurse 2 - General Ulcer CM Notes Start: 02/23/24 09:10 Freq: Status: Active Protocol: Activity Type Activity Date Activity User E-sign Co-sign Detail Recorded Client Recorded Date Recorded By Document 02/23/24 09:41 [id number] 02/23/24 09:45 JF Document 03/03/24 09:41 JF 000 03/03/24 09:45 JF 02/23/24 03/03/24 09:41 09:41 Wound Center Nurse 2 #8 L Tenorio post-op -Time 09:41 09:42 -Correct Patient Yes Yes -Correct Side, Site, Position Yes Yes -Correct Procedure Yes Yes -Procedure Performed Yes Yes -Type of Procedure Debridement Debridement -Clinical Debridement Muscle / Fascia Bone -Tissue Removed Muscle,Fascia Non-viable tissue -Post Debridement (cm) - Length 1.2 1.9 -Post Debridement (cm) - Width 0.9 1.0 -Post Debridement (cm) - Depth 0.2 1.0 -Total Square (Post) (cm) 1.08 1.90 -Area of Debridement (cm) - Length 1.2 1.9 -Area of Debridement (cm) - Width 0.9 1.0 -Total Square (Area) (cm) 1.08 1.90 -Tunneling No No -Undermining/Tunneling No No -Circular Undermining No No -Wound/Ulcer Outcome Not Healed Not Healed -Ulcer Cleansing Rinsed/ Rinsed/ Irrigated with Irrigated with Saline Saline -Foul Odor after Cleansing No No -Bioengineered Tissue No No -Bleeding Controlled with Pressure Pressure -Treatment Response Procedure Procedure Tolerated Well Tolerated Well -Offloading No No -Debridement - Muscle / Fascia, 1st Yes 20sq cm -Debridement - Bone, 1st 20sq cm Yes Pain Scale: 0-10 Numeric Is Patient Pain Free? Yes Yes - Nurse 3 - General Ulcer D/C NN Start: 02/23/24 09:10 Freq: Status: Active Protocol: Activity Type Activity Date Activity User E-sign Co-sign Detail Recorded Client Recorded Date Recorded By Document 02/23/24 09:50 KW l 02/23/24 09:51 KW Document 03/03/24 09:59 [id number] 03/03/24 10:05 MT Edit Result 03/03/24 09:59 MT (1) [id number] 03/03/24 10:05 MT (1) Left - Tubular Bandage => Double Layer - Size of Tubigrip Used => Size C - Size C ($) => 2 02/23/24 03/03/24 09:50 09:59 Wound Care Center Nurse 3 #8 L Tenorio post-op -Ulcer Cleansing Rinsed/ Irrigated with Saline -Primary Dressing Applied Aquacel AG 2x2, Aquacel AG 2x2, Mepilex Border Mepilex Border -Aquacel Extra 1 -Aquacel AG 2x2 1 1 -Mepilex Border 1 1 Left -Tubular Bandage Double Layer Double Layer -Size of Tubigrip Used Size C Size C -Size C ($) 2 2 Pain Scale: 0-10 Numeric Is Patient Pain Free? 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 All findings were discussed with the patient. All questions were answered to the patient's satisfaction. Excisional debridement down to and including subcutaneous tissue, muscle, fascia and bone with a rongeur to the left tibia full-thickness ulceration without incident. Predebridement measurement was 1.8 x 0.9 x 0.5 cm. Postdebridement measurement is 1.9 x 1.0 x 1.0 cm. Will obtain MRI for the left lower extremity tibia for surgical planning. Due to the patient's chronicity of the full-thickness wound and possible osteomyelitis left tibia the patient will benefit from a papineau technique with application of external fixator. Will continue to discuss more with the patient after receiving MRI results. Discussed with the patient smoking cessation which she is understanding of. Patient continue good hygiene and increase nutrition which she was understanding of. Follow-up at the wound care center with Dr. Estevez in 1 week. (2) Osteomyelitis: CODE(S): M86.9 - Osteomyelitis, unspecified QUALIFIERS: Osteomyelitis type: other chronic Osteomyelitis l ocation: tibia Laterality: left Qualified Code(s): M86.662 - Other chronic osteomyelitis, left tibia and fibula (3) Type 2 diabetes mellitus without complications: CODE(S): E11.9 - Type 2 diabetes mellitus without complications QUALIFIERS: Diabetes mellitus longterm insulin use: without termite exterminator use Qualified Code(s): E11.9 - Type 2 diabetes mellitus without complications (4) Nicotine dependence, unspecified, uncomplicated: CODE(S): F17.200 - Nicotine dependence, unspecified, uncomplicated QUALIFIERS: Nicotine product type: cigarettes Qualified Code(s): F17.210 - Nicotine dependence, cigarettes, uncomplicated
== END 2024-03-07 23:59 | disposition home or self-care (01) ==
LOC: WC 09:30
PROVIDERS: Referring Provider Nurse Practitioner Family; Visit Provider Nurse Practitioner Family
DX: E11.622 Type 2 diabetes mellitus with other skin ulcer (principal); L97.824 Non-pressure chronic ulcer of other part of left lower leg with necrosis of bone; J43.9 Emphysema, unspecified; Z79.51 Long term (current) use of inhaled steroids; F17.210 Nicotine dependence, cigarettes, uncomplicated; E78.00 Pure hypercholesterolemia, unspecified; Z86.14 Personal history of Methicillin resistant Staphylococcus aureus infection; Z79.899 Other long term (current) drug therapy
CPT/HCPCS: 11043; 11044; 87070; 87075; 87077; 87176; 87186; 87205

== ENCOUNTER 2024-03-22 10:53 | Outpatient (RCR) | payer MEDICAID, SELFPAY ==
[2024-02-07 01:46] VITALS: BP 131/68; PULSE 77; RESP 18; TEMP 36.7
== END 2024-04-07 23:59 ==
LOC: NS 10:53
PROVIDERS: Referring Provider Podiatrist; Visit Provider Nurse Practitioner Family
DX: Z71.3 Dietary counseling and surveillance (principal); E46 Unspecified protein-calorie malnutrition; E11.9 Type 2 diabetes mellitus without complications; J44.9 Chronic obstructive pulmonary disease, unspecified; E78.5 Hyperlipidemia, unspecified
CPT/HCPCS: 97803

== ENCOUNTER 2024-03-31 10:15 | Outpatient (RCR) | payer MEDICAID, SELFPAY ==
[2024-03-08 00:45] VITALS: BP 129/55; PULSE 92; RESP 18; TEMP 36.8
[2024-03-17 08:55] VITALS: BP 111/67; PULSE 91; RESP 18; TEMP 35.8
--- NOTE | 2024-03-17 11:14 | PCM.WC.PN ---
History of Present Illness Date of Service: 03/17/24 Chief Complaint: nonhealing ulcer left anterior leg. History of Wound: Surgery 12/03/22 - surgical preparation left anterior leg with incision and drainage and excisional debridement nonhealing infected MRSA ulcer and partial ostectomy tibia for osteomyelitis. Wound care - Silver dressings followed by Tubigrip. Operative Tissue and bone cultures positive for MRSA. Treated with IV Vancomycin. Infectious Diseases consulted. Pathology - pieces of bone with chronic inflammation and reactive changes, negative for acute osteomyelitis. Prealbumin from 12/04/22 was 14.5. Encouraged nutritional supplementation with protein to help with the healing process. HgbA1c from 07/19/22 was 5.7. HgbA1c needs to be less than 8 for elective surgeries. MRI left leg done on08/08/22 - Sinus tracts from the marrow of the mid to distal tibial diaphysis to the skin at the medial aspect. Marrow edema throughout the majority of the tibia. Findings concerning for osteomyelitis. Arterial study completed 11/04/22. Triphasic Doppler waveforms at ankle level bilaterally. Right MARI by dorsalis pedis = 1.15.? Left MARI by dorsalis pedis = 1.28. There is no evidence of significant arterial occlusive disease in the lower extremities bilaterally. Today she denies complaints of fever. Her appetite is ok. Subjective Subjective Ms. Calvert is a 63-year-old female presented wound care center today for evaluation of full-thickness wound to bone to the left leg. Patient has seen multiple providers and has had a chronic wound for the past 9 years. She was evaluated today by podiatry for possible surgical intervention. She denies any pain to left lower extremity. She admits that her wound was originally from trauma. She admits to smoking 1 pack of cigarettes per day and states she is trying to quit. Patient was placed on Bactrim DS per the culture results by her primary doctor. She denies any new onset of trauma. Denies constitutional symptoms. No other complaints at this time. Objective Data Objective Data Vital Signs: Vital Signs Temp Pulse Resp BP O2 Del Method 96.4 F L 91 18 111/67 Room Air 03/17/24 08:55 03/17/24 08:55 03/17/24 08:55 03/17/24 08:55 03/17/24 08:55 Oxygen Delivery Method Room Air Physical Exam Narrative Vascular: DP and PT pulses are palpable. CFT is brisk. Skin temperature great is warm to warm from proximal ankle to the distal digits to left lower extremity. Nonpitting edema appreciated to left lower extremity. Neurological: Light touch intact. Patient does respond to painful stimuli. Dermatological: Full-thickness ulceration down to bone to the level of the mid tibia measuring 1.9 x 1.1 x 0.7 cm. Positive probe to bone. No malodor. No active drainage. Excisional debridement down to and including subcutaneous tissue, muscle, fascia and bone with a rongeur to the left tibia full-thickness ulceration without incident. Predebridement measurement was 1.8 x 1.0 x 0.5 cm. Postdebridement measurement is 1.9 x 1.1 x 0.7 cm Musculoskeletal: No pain on palpation of full-thickness ulceration to left tibia. No pain with calf compression. Debridement Note Debridement Note Debridement Free Text: Excisional debridement down to and including subcutaneous tissue, muscle, fascia and bone with a rongeur to the left tibia full-thickness ulceration without incident. Predebridement measurement was 1.8 x 1.0 x 0.5 cm. 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 Any new allergies or adverse reactions No Had a fall/change in ADL's that may No increase risk of falls Signs or symptoms of abuse and/or No neglect since last visit Have you been in the hospital since your No last visit? Has dressing in place as prescribed Yes Has compression in place as prescribed Yes Has offloadiing in place as prescribed N/A Experienced any changes in pain level or No management Left Footwear Regular Shoe Right Footwear Regular Shoe Pain Scale: 0-10 Numeric Is Patient Pain Free? Yes WC - Nurse 1 - General Ulcer Measurement Start: 03/17/24 08:54 Freq: Status: Active Protocol: Activity Type Activity Date Activity User E-sign Co-sign Detail Recorded Client Recorded Date Recorded By Document 03/17/24 08:55 KW k 03/17/24 08:59 KW 03/17/24 08:55 Wound Center Nurse 1 #8 L Tenorio post-op -Current Size (cm) - Length 1.7 -Current Size (cm) - Width 1 -Current Size (cm) - Depth 0.5 -Total Square Cm 1.7 -Date of Last Picture (Recall this 03/17/24 field) -Exudate Amt Medium -Exudate Type Serosanguineous -Wound Margin Distinct, Outline Attached -Granulation Amt Small (1-33%) -Granulation Quality [place] -Necrosis Amt Large (67-100%) -Necrotic Tissue Type Adherent Slough -Texture (Mima-wound Skin Appearance) Assessed -Moisture (Mima-wound Skin Appearance) Assessed -Color (Mima-wound Skin Appearance) Assessed -Tenderness on Palpation (Mima-wound No Skin Appearance) -Ulcer Cleansing Soap and Water -Foul Odor after Cleansing No -Anesthetic Used 5% Lidocaine Gel Left Calf (cm) 29 Left Ankle (cm) 19 - Nurse 2 - General Ulcer CM Notes Start: 03/17/24 08:54 Freq: Status: Active Protocol: Activity Type Activity Date Activity User E-sign Co-sign Detail Recorded Client Recorded Date Recorded By Document 03/17/24 09:19 JF 000 03/17/24 09:22 JF 03/17/24 09:19 Wound Center Nurse 2 #8 L Tenorio post-op -Time 09:20 -Correct Patient Yes -Correct Side, Site, Position Yes -Correct Procedure Yes -Procedure Performed Yes -Type of Procedure Debridement -Clinical Debridement Bone -Tissue Removed Non-viable tissue -Post Debridement (cm) - Length 1.9 -Post Debridement (cm) - Width 1.1 -Post Debridement (cm) - Depth 0.7 -Total Square (Post) (cm) 2.09 -Area of Debridement (cm) - Length 1.9 -Area of Debridement (cm) - Width 1.1 -Total Square (Area) (cm) 2.09 -Tunneling No -Undermining/Tunneling No -Circular Undermining No -Wound/Ulcer Outcome Not Healed -Ulcer Cleansing Rinsed/ Irrigated with Saline -Foul Odor after Cleansing No -Bioengineered Tissue No -Bleeding Controlled with Pressure -Treatment Response Procedure Tolerated Well -Offloading No -Debridement - Bone, 1st 20sq cm Yes Pain Scale: 0-10 Numeric Is Patient Pain Free? Yes - Nurse 3 - General Ulcer D/C NN Start: 03/17/24 08:54 Freq: Status: Active Protocol: Activity Type Activity Date Activity User E-sign Co-sign Detail Recorded Client Recorded Date Recorded By Document 03/17/24 09:38 KW k 03/17/24 09:39 KW 03/17/24 09:38 Wound Care Center Nurse 3 #8 L Tenorio post-op -Primary Dressing Applied Mepilex Border -Other Dressing dakins slightly moistened gauze -Mepilex Border 1 Left -Size of Tubigrip Used Size C Pain Scale: 0-10 Numeric Is Patient Pain Free? 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 All findings were discussed with the patient. All questions were answered to the patient's satisfaction. Excisional debridement down to and including subcutaneous tissue, muscle, fascia and bone with a rongeur to the left tibia full-thickness ulceration without incident. Predebridement measurement was 1.8 x 1.0 x 0.5 cm. Postdebridement measurement is 1.9 x 1.1 x 0.7 cm Patient will continue the Bactrim DS per her culture results. We are still waiting the patient to obtain her MRI for surgical planning to the left lower extremity. Patient will call today to schedule MRI. Follow-up at the wound care center with Dr. Estevez in 1 week. (2) Osteomyelitis: CODE(S): M86.9 - Osteomyelitis, unspecified QUALIFIERS: Osteomyelitis type: other chronic Osteomyelitis location: tibia Laterality: left Qualified Code(s): M86.662 - Other chronic osteomyelitis, left tibia and fibula
--- NOTE | 2024-03-18 10:12 | WC ---
PHOTO 03/17/2024 LEFT RODENY
[2024-03-22 13:14] LABS: Erythrocyte Sedimentation Rate 14 mm/hr (0-30)
[2024-03-22 13:16] LABS: Absolute Lymphocyte Count 1.16 X10^3/uL (0.83-4.51); Absolute Neutrophil Count 4.1 X10^3/uL (2.0-7.7); Basophil# 0.04 X10^3/uL; Basophil% 0.7 % (0-1); Eosinophil# 0.07 X10^3/uL; Eosinophils% 1.2 % (0-5); Hematocrit 37.2 % (37-47); Hemoglobin 12.1 g/dL (12.0-15.0); Lymphocyte # 1.16 X10^3/ul (0.83-4.51); Lymphocyte % 19.2 % (19-41); Mean Corp Hgb Conc 32.5 g/dL (32-36); Mean Corpuscular Hgb 29.6 pg (27.0-32.0); Mean Platelet Vol. 10.9 fl (6.2-12.0); Monocyte# 0.69 X10^3/uL; Monocyte% 11.4 % (0-10); NRBC Flagged by Analyzer 0 % (0-5); Neutrophil # 4.07 X10^3/uL (2.7-7.7); Neutrophil % 67.3 % (47-70); Platelet Count 183 K/mm3 (150-450); RBC Distribution Width CV 12.2 % (11.6-14.6); RBC Distribution Width SD 40.4 fl (35.1-43.9); Red Blood Count 4.09 M/mm3 (4.2-5.4)
[2024-03-22 13:38] LABS: Procalcitonin < 0.04 ng/mL (0.00-0.09); Vitamin B12 452 pg/mL (211-911); Vitamin D,25 Hydroxy 64.1 ng/mL
[2024-03-22 13:55] LABS: ALB/GLOB Ratio 0.9 RATIO (0.9-2.4); AST(SGOT) 27 U/L (15-37); Alanine Aminotransfer ALT/SGPT 40 U/L (13-56); Albumin, Serum 3.5 g/dL (3.2-5.0); Alkaline Phosphatase 145 U/L (45-117); Anion Gap 7 (5-15); BUN 24 mg/dL (7-18); BUN/Creat Ratio 42.7 RATIO (10-20); Calcium,Total 9.5 mg/dL (8.5-10.1); Chloride 100 mmol/L (98-107); Creatinine, Serum 0.56 mg/dL (0.55-1.02); EST Glomerular Filtration Rate 116 mL/min (>60); Est Glom Filt Rate - Afr Amer 140 mL/min (>60); Globulin 3.7 g/dL (2.2-4.2); Glucose 97 mg/dL (74-106); Potassium 4.3 mmol/L (3.5-5.1); Prealbumin 23.4 mg/dL (20.0-40.0); Protein, Total 7.2 g/dL (6.4-8.2); Sodium Level 134 mmol/L (136-145)
[2024-03-22 20:33] LABS: Hemoglobin A1c 5.4 % (3.8-5.6)
[2024-03-24 09:47] VITALS: BP 98/72; PULSE 88; RESP 18; TEMP 36.6
--- NOTE | 2024-03-24 10:36 | PCM.WC.PN ---
History of Present Illness Date of Service: 03/24/24 Chief Complaint: nonhealing ulcer left anterior leg. History of Wound: Surgery 12/03/22 - surgical preparation left anterior leg with incision and drainage and excisional debridement nonhealing infected MRSA ulcer and partial ostectomy tibia for osteomyelitis. Wound care - Silver dressings followed by Tubigrip. Operative Tissue and bone cultures positive for MRSA. Treated with IV Vancomycin. Infectious Diseases consulted. Pathology - pieces of bone with chronic inflammation and reactive changes, negative for acute osteomyelitis. Prealbumin from 12/04/22 was 14.5. Encouraged nutritional supplementation with protein to help with the healing process. HgbA1c from 07/19/22 was 5.7. HgbA1c needs to be less than 8 for elective surgeries. MRI left leg done on08/08/22 - Sinus tracts from the marrow of the mid to distal tibial diaphysis to the skin at the medial aspect. Marrow edema throughout the majority of the tibia. Findings concerning for osteomyelitis. Arterial study completed 11/04/22. Triphasic Doppler waveforms at ankle level bilaterally. Right MARI by dorsalis pedis = 1.15.? Left MARI by dorsalis pedis = 1.28. There is no evidence of significant arterial occlusive disease in the lower extremities bilaterally. Today she denies complaints of fever. Her appetite is ok. Subjective Subjective Ms. Calvert is a 63-year-old female presented wound care center today for evaluation of full-thickness wound to bone to the left leg. Patient is present today for follow-up evaluation of full-thickness ulceration with bone exposed to left lower extremity. She is planning her MRI on 04/12/2024. She has been taking her antibiotic as written. She did get her lab results back. Denies trauma. Denies constitutional symptoms. No other pedal complaints at this time. Patient admits she is trying to reduce her smoking. Objective Data Objective Data Vital Signs: Vital Signs Temp Pulse Resp BP O2 Del Method 98 F 88 18 98/72 Room Air 03/24/24 09:47 03/24/24 09:47 03/24/24 09:47 03/24/24 09:47 03/24/24 09:47 Oxygen Delivery Method Room Air Lab / Micro Data 03/22/24 10:52 03/22/24 10:52 Physical Exam Narrative Vascular: DP and PT pulses are palpable. CFT is brisk. Skin temperature great is warm to warm from proximal ankle to the distal digits to left lower extremity. Nonpitting edema appreciated to left lower extremity. Neurological: Light touch intact. Patient does respond to painful stimuli. Dermatological: Full-thickness ulceration down to bone to the level of the mid tibia measuring 1.7 x 1.0 x 0.9 cm. Positive probe to bone. No malodor. No active drainage. Excisional debridement down to and including subcutaneous tissue, muscle, fascia and bone with a rongeur to the left tibia full-thickness ulceration without incident. Predebridement measurement was 1.6 x 0.9 x 0.7 cm. Postdebridement measurement is 1.7 x 1.0 x 0.9 cm Musculoskeletal: No pain on palpation of full-thickness ulceration to left tibia. No pain with calf compression. Debridement Note Debridement Note Debridement Free Text: Excisional debridement down to and including subcutaneous tissue, muscle, fascia and bone with a rongeur to the left tibia full-thickness ulceration without incident. Predebridement measurement was 1.6 x 0.9 x 0.7 cm. 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 ) ) Arrival Mode Ambulatory Ambulatory Accompanied by SELF Patient Identification Verified (Name & Yes Yes ) Vital Signs Temperature (97.8 F-99.1 F) 96.4 F L 98 F Temperature Source Temporal Temporal Pulse Rate (60-100) 91 88 Pulse Location Monitor Monitor Respiratory Rate (12-18) 18 18 Respiratory rate source Observation Observation Oxygen Delivery Method Room Air Room Air Blood Pressure (90/60-120/80) 111/67 98/72 Blood Pressure Mean (mm Hg) 81 80 Source Monitor Monitor Position Semi-Fowlers Sitting Blood Pressure Location Left Arm Left Arm History Since Last Visit- (Skip if this is Patient's initial visit) Have you changed medications since your No last visit? Any new allergies or adverse reactions No Had a fall/change in ADL's that may No increase risk of falls Signs or symptoms of abuse and/or No neglect since last visit Have you been in the hospital since your No last visit? Has dressing in place as prescribed Yes Yes Has compression in place as prescribed Yes N/A Has offloadiing in place as prescribed N/A N/A Experienced any changes in pain level or No Yes management Left Footwear Regular Shoe Regular Shoe Right Footwear Regular Shoe Regular Shoe Pain Scale: 0-10 Numeric Is Patient Pain Free? Yes Yes WC - Nurse 1 - General Ulcer Measurement Start: 03/17/24 08:54 Freq: Status: Active Protocol: Activity Type Activity Date Activity User E-sign Co-sign Detail Recorded Client Recorded Date Recorded By Document 03/17/24 08:55 KW k 03/17/24 08:59 KW Document 03/24/24 09:47 ID [id number] 03/24/24 09:50 MT 03/17/24 03/24/24 08:55 09:47 Wound Center Nurse 1 #8 L Tenorio post-op -Current Size (cm) - Length 1.7 2 -Current Size (cm) - Width 1 1.7 -Current Size (cm) - Depth 0.5 1.0 -Total Square Cm 1.7 3.4 -Date of Last Picture (Recall this 03/17/24 field) -Exudate Amt Medium Medium -Exudate Type Serosanguineous Serosanguineous -Wound Margin Distinct, Thickened & Outline Rolled Under Attached -Granulation Amt Small (1-33%) Medium (34-66%) -Granulation Quality [place] Pale -Necrosis Amt Large (67-100%) Medium (34-66%) -Necrotic Tissue Type Adherent Slough Adherent Slough -Texture (Mima-wound Skin Appearance) Assessed Assessed -Moisture (Mima-wound Skin Appearance) Assessed Assessed -Color (Mima-wound Skin Appearance) Assessed Assessed -Temperature (Mima-wound Skin No Abnormality Appearance) (Pt Warm) -Tenderness on Palpation (Mima-wound No No Skin Appearance) -Ulcer Cleansing Soap and Water Wound Cleanser -Foul Odor after Cleansing No No -Anesthetic Used 5% Lidocaine 5% Lidocaine Gel Gel Left Calf (cm) 29 28 Left Ankle (cm) 19 19 - Nurse 2 - General Ulcer CM Notes Start: 03/17/24 08:54 Freq: Status: Active Protocol: Activity Type Activity Date Activity User E-sign Co-sign Detail Recorded Client Recorded Date Recorded By Document 03/17/24 09:19 [facility] 03/17/24 09:22 Document 03/24/24 10:07 [facility] 03/24/24 10:11 03/17/24 03/24/24 09:19 10:07 Wound Center Nurse 2 #8 L Tenorio post-op -Time 09:20 10:08 -Correct Patient Yes Yes -Correct Side, Site, Position Yes Yes -Correct Procedure Yes Yes -Procedure Performed Yes Yes -Type of Procedure Debridement Debridement -Clinical Debridement Bone Bone -Tissue Removed Non-viable Non-viable tissue tissue -Post Debridement (cm) - Length 1.9 1.7 -Post Debridement (cm) - Width 1.1 1.0 -Post Debridement (cm) - Depth 0.7 0.9 -Total Square (Post) (cm) 2.09 1.70 -Area of Debridement (cm) - Length 1.9 1.7 -Area of Debridement (cm) - Width 1.1 1.0 -Total Square (Area) (cm) 2.09 1.70 -Tunneling No No -Undermining/Tunneling No No -Circular Undermining No No -Wound/Ulcer Outcome Not Healed Not Healed -Ulcer Cleansing Rinsed/ Rinsed/ Irrigated with Irrigated with Saline Saline -Foul Odor after Cleansing No No -Bioengineered Tissue No No -Bleeding Controlled with Pressure Pressure -Treatment Response Procedure Procedure Tolerated Well Tolerated Well -Offloading No -Debridement - Bone, 1st 20sq cm Yes Yes Pain Scale: 0-10 Numeric Is Patient Pain Free? Yes Yes - Nurse 3 - General Ulcer D/C NN Start: 03/17/24 08:54 Freq: Status: Active Protocol: Activity Type Activity Date Activity User E-sign Co-sign Detail Recorded Client Recorded Date Recorded By Document 03/17/24 09:38 KW k 03/17/24 09:39 KW Document 03/24/24 10:33 KW ' 03/24/24 10:34 KW 03/17/24 03/24/24 09:38 10:33 Wound Care Center Nurse 3 #8 L Tenorio post-op -Primary Dressing Applied Mepilex Border -Other Dressing dakins slightly dakins soaked moistened gauze gauze -Primary Dressing Covered/Secured with Dry Gauze & Roll Gauze, Secured with Tape -Mepilex Border 1 Left -Tubular Bandage Double Layer -Size of Tubigrip Used Size C Size C -Size C ($) 2 Pain Scale: 0-10 Numeric Is Patient Pain Free? 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 All findings were discussed with the patient. All questions were answered to the patient's satisfaction. Excisional debridement down to and including subcutaneous tissue, muscle, fascia and bone with a rongeur to the left tibia full-thickness ulceration without incident. Predebridement measurement was 1.6 x 0.9 x 0.7 cm. Postdebridement measurement is 1.7 x 1.0 x 0.9 cm. Left lower extremities were cleaned patted dry. Dakin solution on 4 x 4 gauze was packed into the wound followed by dry sterile dressing and Tubigrip. Patient will continue dressing changes at home with nursing staff. Educated patient on smoking cessation which she is understanding of. Review of the patient's labs show evidence of a HbA1c of 5.4%. Educated the patient to continue her protein intake and watch her sugar intake to help decrease her elevated blood sugar. The patient is not pre or diabetic at this time. Mild increase in CRP inflammatory marker. Procalcitonin is below 0. Patient's albumin is within normal limits. Patient plans for MRI on 04/12/2024. This will be used for surgical planning to determine the degree of osteomyelitis to the left tibia. Surgical plan will be to take the patient the operating room to perform partial excision of tibia pack the deficit with antibiotic beads followed by wound VAC as well as external fixator. Patient was understanding of this. Follow-up at the wound care center with Dr. Estevez in 1 week. (2) Osteomyelitis: CODE(S): M86.9 - Osteomyelitis, unspecified QUALIFIERS: Osteomyelitis type: other chronic Osteomyelitis location: tibia Laterality: left Qualified Code(s): M86.662 - Other chronic osteomyelitis, left tibia and fibula
[2024-03-31 09:56] VITALS: BP 103/61; PULSE 92; RESP 16; TEMP 35.7
--- NOTE | 2024-03-31 11:52 | PCM.WC.PN ---
History of Present Illness Date of Service: 03/31/24 Chief Complaint: nonhealing ulcer left anterior leg. History of Wound: Surgery 12/03/22 - surgical preparation left anterior leg with incision and drainage and excisional debridement nonhealing infected MRSA ulcer and partial ostectomy tibia for osteomyelitis. Wound care - Silver dressings followed by Tubigrip. Operative Tissue and bone cultures positive for MRSA. Treated with IV Vancomycin. Infectious Diseases consulted. Pathology - pieces of bone with chronic inflammation and reactive changes, negative for acute osteomyelitis. Prealbumin from 12/04/22 was 14.5. Encouraged nutritional supplementation with protein to help with the healing process. HgbA1c from 07/19/22 was 5.7. HgbA1c needs to be less than 8 for elective surgeries. MRI left leg done on08/08/22 - Sinus tracts from the marrow of the mid to distal tibial diaphysis to the skin at the medial aspect. Marrow edema throughout the majority of the tibia. Findings concerning for osteomyelitis. Arterial study completed 11/04/22. Triphasic Doppler waveforms at ankle level bilaterally. Right MARI by dorsalis pedis = 1.15.? Left MARI by dorsalis pedis = 1.28. There is no evidence of significant arterial occlusive disease in the lower extremities bilaterally. Today she denies complaints of fever. Her appetite is ok. Subjective Subjective Ms. Calvert is a 63-year-old female send wound care center today for follow-up evaluation of full-thickness wound to bone to the left leg. Patient's MRI is planned for 04/12/2024. She has been doing home dressing changes at home. Denies trauma. Denies constitutional symptoms. No other pedal complaints at this time. Objective Data Objective Data Vital Signs: Vital Signs Temp Pulse Resp BP O2 Del Method 96.3 F L 92 16 103/61 Room Air 03/31/24 09:56 03/31/24 09:56 03/31/24 09:56 03/31/24 09:56 03/31/24 09:56 Oxygen Delivery Method Room Air Lab / Micro Data 03/22/24 10:52 03/22/24 10:52 Physical Exam Narrative Vascular: DP and PT pulses are palpable. CFT is brisk. Skin temperature great is warm to warm from proximal ankle to the distal digits to left lower extremity. Nonpitting edema appreciated to left lower extremity. Neurological: Light touch intact. Patient does respond to painful stimuli. Dermatological: Full-thickness ulceration down to bone to the level of the mid tibia measuring 1.9 x 1.0 x 0.9 cm. Positive probe to bone. No malodor. No active drainage. Excisional debridement down to and including subcutaneous tissue, muscle, fascia and bone with a rongeur to the left tibia full-thickness ulceration without incident. Predebridement measurement was 1.7 x 0.9 x 0.7 cm. Postdebridement measurement is 1.9 x 1.0 x 0.9 cm Musculoskeletal: No pain on palpation of full-thickness ulceration to left tibia. No pain with calf compression. Debridement Note Debridement Note Debridement Free Text: Excisional debridement down to and including subcutaneous tissue, muscle, fascia and bone with a rongeur to the left tibia full-thickness ulceration without incident. Predebridement measurement was 1.7 x 0.9 x 0.7 cm. Postdebridement measurement is 1.9 x 1.0 x 0.9 cm Post-Debridement Measurements and Additional Note: Post-Debridement Measurements/Treatment - Nurse 1 - General Ulcer Assessment Start: 03/17/24 08:54 Freq: Status: Active Protocol: [email or web address] Activity Type Activity Date Activity User E-sign Co-sign Detail Recorded Client Recorded Date Recorded By Document 03/17/24 08:55 KW k 03/17/24 08:59 KW Document 03/24/24 09:47 MT [id number] 03/24/24 09:50 MT Document 03/31/24 09:56 KW d 03/31/24 10:02 KW 03/17/24 03/24/24 03/31/24 08:55 09:47 09:56 - Today's Visit Information Type of service Follow-up Visit Follow-up Visit Follow-up Visit (Physician/MACHINE MAINTENANCE MECHANIC (Physician/MACHINE MAINTENANCE MECHANIC (Physician/MACHINE MAINTENANCE MECHANIC ) ) ) Arrival Mode Ambulatory Ambulatory Ambulatory Accompanied by SELF Patient Identification Verified (Name & Yes Yes Yes ) Vital Signs Temperature (97.8 F-99.1 F) 96.4 F L 98 F 96.3 F L Temperature Source Temporal Temporal Temporal Pulse Rate (60-100) 91 88 92 Pulse Location Monitor Monitor Monitor Respiratory Rate (12-18) 18 18 16 Respiratory rate source Observation Observation Observation Oxygen Delivery Method Room Air Room Air Room Air Blood Pressure (90/60-120/80) 111/67 98/72 103/61 Blood Pressure Mean (mm Hg) 81 80 75 Source Monitor Monitor Monitor Position Semi-Fowlers Sitting Semi-Fowlers Blood Pressure Location Left Arm Left Arm Left Arm History Since Last Visit- (Skip if this is Patient's initial visit) Have you changed medications since your No No last visit? Any new allergies or adverse reactions No Had a fall/change in ADL's that may No No increase risk of falls Signs or symptoms of abuse and/or No No neglect since last visit Have you been in the hospital since your No No last visit? Has dressing in place as prescribed Yes Yes Yes Has compression in place as prescribed Yes N/A Yes Has offloadiing in place as prescribed N/A N/A N/A Experienced any changes in pain level or No Yes No management Left Footwear Regular Shoe Regular Shoe Regular Shoe Right Footwear Regular Shoe Regular Shoe Regular Shoe Pain Scale: 0-10 Numeric Is Patient Pain Free? Yes Yes Yes WC - Nurse 1 - General Ulcer Measurement Start: 03/17/24 08:54 Freq: Status: Active Protocol: Activity Type Activity Date Activity User E-sign Co-sign Detail Recorded Client Recorded Date Recorded By Document 03/17/24 08:55 KW k 03/17/24 08:59 KW Document 03/24/24 09:47 MT [id number] 03/24/24 09:50 MT Document 03/31/24 09:56 KW d 03/31/24 10:02 KW 03/17/24 03/24/24 03/31/24 08:55 09:47 09:56 Wound Center Nurse 1 #8 L Tenorio post-op -Current Size (cm) - Length 1.7 2 1.9 -Current Size (cm) - Width 1 1.7 1.1 -Current Size (cm) - Depth 0.5 1.0 0.8 -Total Square Cm 1.7 3.4 2.09 -Date of Last Picture (Recall this 03/17/24 03/31/24 field) -Exudate Amt Medium Medium Small -Exudate Type Serosanguineous Serosanguineous Serosanguineous -Wound Margin Distinct, Thickened & Distinct, Outline Rolled Under Outline Attached Attached -Granulation Amt Small (1-33%) Medium (34-66%) Small (1-33%) -Granulation Quality Ucon Pale Ucon -Necrosis Amt Large (67-100%) Medium (34-66%) Large (67-100%) -Necrotic Tissue Type Adherent Slough Adherent Slough Adherent Slough -Texture (Mima-wound Skin Appearance) Assessed Assessed Assessed, Scarring -Moisture (Mima-wound Skin Appearance) Assessed Assessed Assessed -Color (Mima-wound Skin Appearance) Assessed Assessed Assessed -Temperature (Mima-wound Skin No Abnormality No Abnormality Appearance) (Pt Warm) (Pt Warm) -Tenderness on Palpation (Mima-wound No No Skin Appearance) -Ulcer Cleansing Soap and Water Wound Cleanser Rinsed/ Irrigated with Saline -Foul Odor after Cleansing No No No -Anesthetic Used 5% Lidocaine 5% Lidocaine 5% Lidocaine Gel Gel Gel Left Calf (cm) 29 28 Left Ankle (cm) 19 19 - Nurse 2 - General Ulcer CM Notes Start: 03/17/24 08:54 Freq: Status: Active Protocol: Activity Type Activity Date Activity User E-sign Co-sign Detail Recorded Client Recorded Date Recorded By Document 03/17/24 09:19 000 03/17/24 09:22 Document 03/24/24 10:07 [facility] 03/24/24 10:11 Document 03/31/24 10:32 000 03/31/24 10:35 03/17/24 03/24/24 03/31/24 09:19 10:07 10:32 Wound Center Nurse 2 #8 L Tenorio post-op -Time 09:20 10:08 10:32 -Correct Patient Yes Yes Yes -Correct Side, Site, Position Yes Yes Yes -Correct Procedure Yes Yes Yes -Procedure Performed Yes Yes Yes -Type of Procedure Debridement Debridement Debridement -Clinical Debridement Bone Bone Bone -Tissue Removed Non-viable Non-viable Slough tissue tissue -Post Debridement (cm) - Length 1.9 1.7 1.9 -Post Debridement (cm) - Width 1.1 1.0 1.0 -Post Debridement (cm) - Depth 0.7 0.9 0.9 -Total Square (Post) (cm) 2.09 1.70 1.90 -Area of Debridement (cm) - Length 1.9 1.7 1.9 -Area of Debridement (cm) - Width 1.1 1.0 1.0 -Total Square (Area) (cm) 2.09 1.70 1.90 -Tunneling No No No -Undermining/Tunneling No No No -Circular Undermining No No No -Wound/Ulcer Outcome Not Healed Not Healed Not Healed -Ulcer Cleansing Rinsed/ Rinsed/ Rinsed/ Irrigated with Irrigated with Irrigated with Saline Saline Saline -Foul Odor after Cleansing No No No -Bioengineered Tissue No No No -Bleeding Controlled with Pressure Pressure Pressure -Treatment Response Procedure Procedure Procedure Tolerated Well Tolerated Well Tolerated Well -Offloading No No -Debridement - Bone, 1st 20sq cm Yes Yes Yes Pain Scale: 0-10 Numeric Is Patient Pain Free? Yes Yes Yes WC - Nurse 3 - General Ulcer D/C NN Start: 03/17/24 08:54 Freq: Status: Active Protocol: Activity Type Activity Date Activity User E-sign Co-sign Detail Recorded Client Recorded Date Recorded By Document 03/17/24 09:38 KW k 03/17/24 09:39 KW Document 03/24/24 10:33 KW ' 03/24/24 10:34 KW Document 03/31/24 10:53 CP 03/31/24 10:56 CP 03/17/24 03/24/24 03/31/24 09:38 10:33 10:53 Wound Care Center Nurse 3 #8 L Tenorio post-op -Ulcer Cleansing Rinsed/ Irrigated with Saline -Foul Odor after Cleansing No -Primary Dressing Applied Mepilex Border Mepilex Border -Other Dressing dakins slightly dakins soaked dakins soaked moistened gauze gauze gauze -Primary Dressing Covered/Secured with Dry Gauze & Roll Gauze, Secured with Tape -Mepilex Border 1 1 Left -Tubular Bandage Double Layer Double Layer -Size of Tubigrip Used Size C Size C Size C -Size C ($) 2 1 Treatment Response Procedure Tolerated Well Pain Scale: 0-10 Numeric Is Patient Pain Free? Yes Yes Yes Communication Assessment Preferred language [place] Teaching Assessment Smoking Status Current every day smoker Culture/Temple/Medical Donation Professional Cultural/Temple Needs that may affect No Treatment Plan Teaching: Wound Center hospital admission -Person Taught Patient -Teaching Method Discussion, Demonstration -Response to teaching Reinforcement needed surgical consult options -Person Taught Patient -Teaching Method Discussion, Demonstration -Response to teaching Return demonstration, Verbalize understanding *Wound/Skin Impairment -Person Taught Patient -Teaching Method Discussion, Demonstration -Response to teaching Return demonstration, Verbalize understanding Skin Care -Person Taught Patient -Teaching Method Discussion, Demonstration -Response to teaching Return demonstration, Verbalize understanding Diagnostic testing--MRI -Person Taught Patient -Teaching Method Discussion -Response to teaching Verbalize understanding Compression Wraps & Stockings -Person Taught Patient -Teaching Method Discussion, Demonstration -Response to teaching Return demonstration, Verbalize understanding Diagnostic Tests Ordered -Person Taught Patient -Teaching Method Discussion, Demonstration -Response to teaching Return demonstration, Verbalize understanding Smoking Cessation -Person Taught Patient -Teaching Method Discussion, Demonstration -Response to teaching Return demonstration, Verbalize understanding *Nutrition -Person Taught Patient -Teaching Method Discussion -Response to teaching Verbalize understanding Dressing Your Wound -Person Taught Patient -Teaching Method Discussion -Response to teaching Verbalize understanding *Debridement -Person Taught Patient -Teaching Method Discussion, Demonstration -Response to teaching Return demonstration, Verbalize understanding *Infection -Person Taught Patient,Family -Teaching Method Demonstration -Response to teaching Reinforcement needed *Welcome to the Wound Center -Person Taught Patient -Teaching Method Discussion, Demonstration -Response to teaching Return demonstration, Verbalize understanding WC - Visit Discharge Discharge Condition Stable Stable Ambulatory Status Ambulatory Ambulatory Transportation Private Auto Private Auto Accompanied by SELF Medication Reconcilliation completed & No provided to patient/care provider Clinical Summary of Care Provided Yes Yes Facility Type Home Health Assessment/Plan Assessment/Plan (1) 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 All findings were discussed with the patient. All questions were answered to the patient's satisfaction. Excisional debridement down to and including subcutaneous tissue, muscle, fascia and bone with a rongeur to the left tibia full-thickness ulceration without incident. Predebridement measurement was 1.7 x 0.9 x 0.7 cm. Postdebridement measurement is 1.9 x 1.0 x 0.9 cm. Left lower extremity were cleaned and patted dry. The ulceration was dressed with 4 x 4 soaked Dakin's dry sterile dressing and Tubigrip donned. Patient will perform dressing changes as before. She has home health care coming. MRI planned for 04/12/2024, surgical plan will follow after MRI. Follow-up at the wound care center with Dr. Estevez in 1 week. (2) Osteomyelitis: CODE(S): M86.9 - Osteomyelitis, unspecified QUALIFIERS: Osteomyelitis type: other chronic Osteomyelitis location: tibia Laterality: left Qualified Code(s): M86.662 - Other chronic osteomyelitis, left tibia and fibula
--- NOTE | 2024-04-07 11:16 | WC ---
PHOTO 03/31/24 LEFT RODNEY
== END 2024-04-07 23:59 | disposition home or self-care (01) ==
LOC: WC 10:15
PROVIDERS: Referring Provider Nurse Practitioner Family; Visit Provider Podiatrist Foot & Ankle Surgery
DX: L97.824 Non-pressure chronic ulcer of other part of left lower leg with necrosis of bone (principal); M86.662 Other chronic osteomyelitis, left tibia and fibula; F17.210 Nicotine dependence, cigarettes, uncomplicated
CPT/HCPCS: 11044; 36415; 80053; 82306; 82607; 83036; 84134; 84145; 85025; 85652; 86140

== ENCOUNTER → 2024-04-06 | Outpatient (CLI) | payer MEDICAID, SELFPAY ==
--- NOTE | 2024-04-06 08:43 | BI_ITS ---
MAMMOGRAPHY - BILATERAL DIAGNOSTIC REASON FOR EXAM: Female, 63 years old. Left axillary lump. PERTINENT HISTORY: Non-contributory. TECHNIQUE: Digital bilateral breast helder (3D mammographic acquisition) in the CC and MLO projections. 2-D mediolateral oblique (MLO) and craniocaudad (CC) views of both breasts were obtained. CAD: Full Field Digital Mammography with Computer Added Detection was performed. COMPARISON: Comparison is made with prior study dated April 10, 2023 and May 10, 2011. FINDINGS: Breast Composition: The breasts are extremely dense, which lowers the sensitivity of mammography. There is a 6.5 mm x 6.6 mm well-defined nodule in the anterior upper lateral aspect of the left breast. This is unchanged. This was demonstrated to be a cyst on prior sonogram. No other significant abnormalities are identified. There has been no significant change since the prior study. BI/DIAG MAMM W/CAD, BILAT IMPRESSION: Stable bilateral diagnostic mammogram. One year follow-up recommended. (A) ASSESSMENT CATEGORY: BIRADS Category 2: Benign. A letter regarding these results will be sent to the patient by the facility within 30 days. Approximately 10% of breast cancers are not detected by mammography. A normal mammogram should not delay biopsy of a clinically suspicious abnormality. Electronically Signed: Diony Fonseca MD at 10:07 EDT ,
--- NOTE | 2024-04-06 08:43 | US_ITS ---
STUDY: ULTRASOUND BREAST - LEFT REASON FOR EXAM: Female, 63 years old. Left axillary lump. TECHNIQUE: Axial and longitudinal images of the LEFT breast were performed with a high resolution ultrasound transducer. # OF IMAGES: 7 COMPARISON: Comparison is made with prior mammogram done earlier today. FINDINGS: LEFT Breast: The left axilla was examined with ultrasound. The palpable abnormality corresponds to a 7 mm x 6 mm x 7 mm irregular hypoechoic solid nodule with some posterior acoustical shadowing. Biopsy recommended. US/Breast Limited Unilateral IMPRESSION: The palpable abnormality corresponds to a 7 mm x 6 mm x 7 mm irregular hypoechoic nodule with some posterior acoustical shadowing. Biopsy recommended. ASSESSMENT CATEGORY: BIRADS Category 4: Suspicious - Biopsy Should Be Considered. A letter regarding these results will be sent to the patient by the facility within 30 days. Electronically Signed: Diony Fonseca MD at 13:36 EDT ,
== END | disposition home or self-care (01) ==
LOC: OPBI 08:41
DX: R92.8 Other abnormal and inconclusive findings on diagnostic imaging of breast (principal); N63.20 Unspecified lump in the left breast, unspecified quadrant
CPT/HCPCS: 77062; 76642; 77066; G0279

== ENCOUNTER → 2024-04-12 | Outpatient (CLI) | payer MEDICAID, SELFPAY ==
--- NOTE | 2024-04-12 09:00 | MRI_ITS ---
PROCEDURE: MRI LOWER EXTREMITY LEFT TIBIA/FIBULA REASON FOR EXAM: Female, 63 years old. OSTEOMYELITIS LT LEG, MID TIBIA TECHNIQUE: Standardized fat and water weighted pulse sequences were obtained in all 3 orthogonal planes. COMPARISON: Left tibia/fibula MRI dated 08/08/2022. FINDINGS: Again seen is a fracture deformity of the left mid tibia with surrounding mature callus formation and osseous bridging into the adjacent fibula (axial T1 series 12 images 32-36). However, there is deep skin ulceration along the medial aspect of the mid calf with fluid signal extending into the central medullary space at the level of the fracture deformity (axial STIR series 16 images 27-33; sagittal STIR series 17 image 14), concerning for abscess and osteomyelitis/Jaguar''s abscess. There is persistent abnormal marrow signal throughout the near entirety of the tibial shaft, concerning for osteomyelitis. Intact fibula. There is mild edema of the anterior calf compartment muscles. Normal lateral and posterior calf compartments, with normal muscles, crural fascia and intermuscular septa. There is mild subcutaneous soft tissue edema around the mid calf and extending along the medial aspect of the calf distally. MRI/Lower Ext/No Jt/w/o IMPRESSION: Fracture deformity of the left mid tibia with surrounding mature callus formation and osseous bridging into the adjacent fibula. Deep skin ulceration along the medial aspect of the mid calf with fluid signal extending into the central medullary space at the level of the fracture deformity, concerning for abscess and osteomyelitis/Jaguar''s abscess. Persistent abnormal marrow signal throughout the near entirety of the tibial shaft, concerning for osteomyelitis. Mild edema of the anterior calf compartment muscles. Mild subcutaneous soft tissue edema around the mid calf and extending along the medial aspect of the calf distally. Electronically Signed: Jeanmarie Koch MD at 13:44 EDT ,
== END | disposition home or self-care (01) ==
LOC: MRI 08:34
PROVIDERS: Referring Provider Podiatrist Foot & Ankle Surgery; Visit Provider Podiatrist Foot & Ankle Surgery
DX: M86.8X6 Other osteomyelitis, lower leg (principal)
CPT/HCPCS: 73718

== ENCOUNTER 2024-05-05 10:15 | Outpatient (RCR) | payer MEDICAID, SELFPAY ==
[2024-04-08 00:48] VITALS: BP 129/55; PULSE 92; RESP 18; TEMP 36.8
[2024-04-14 09:33] VITALS: BP 118/63; PULSE 88; RESP 18; TEMP 36.9
--- NOTE | 2024-04-14 12:12 | PN.PCM_ITS ---
History of Present Illness Date of Service: 04/14/24 Chief Complaint: nonhealing ulcer left anterior leg. History of Wound: Surgery 12/03/22 - surgical preparation left anterior leg with incision and drainage and excisional debridement nonhealing infected MRSA ulcer and partial ostectomy tibia for osteomyelitis. Wound care - Silver dressings followed by Tubigrip. Operative Tissue and bone cultures positive for MRSA. Treated with IV Vancomycin. Infectious Diseases consulted. Pathology - pieces of bone with chronic inflammation and reactive changes, negative for acute osteomyelitis. Prealbumin from 12/04/22 was 14.5. Encouraged nutritional supplementation with protein to help with the healing process. HgbA1c from 07/19/22 was 5.7. HgbA1c needs to be less than 8 for elective surgeries. MRI left leg done on08/08/22 - Sinus tracts from the marrow of the mid to distal tibial diaphysis to the skin at the medial aspect. Marrow edema throughout the majority of the tibia. Findings concerning for osteomyelitis. Arterial study completed 11/04/22. Triphasic Doppler waveforms at ankle level bilaterally. Right MARI by dorsalis pedis = 1.15.? Left MARI by dorsalis pedis = 1.28. There is no evidence of significant arterial occlusive disease in the lower extremities bilaterally. Today she denies complaints of fever. Her appetite is ok. Subjective Subjective Ms. Calvert is a 63-year-old diabetic female presenting with her son today for follow-up and evaluation of full-thickness wound to the left leg for the last 9 years. She did have her MRI and is anticipating results. Patient states she would like to move forward with surgery after reviewing her MRI. She has been compliant with dressing changes at home. She still continues to smoke. Denies trauma. Denies constitutional symptoms. No other pedal complaints at this time. Objective Data Objective Data Vital Signs: Vital Signs Temp Pulse Resp BP O2 Del Method 98.4 F 88 18 118/63 Room Air 04/14/24 09:33 04/14/24 09:33 04/14/24 09:33 04/14/24 09:33 04/14/24 09:33 Oxygen Delivery Method Room Air Physical Exam Narrative Vascular: DP and PT pulses are palpable. CFT is brisk. Skin temperature great is warm to warm from proximal ankle to the distal digits to left lower extremity. Nonpitting edema appreciated to left lower extremity. Neurological: Light touch intact. Patient does respond to painful stimuli. Dermatological: Full-thickness ulceration down to bone to the level of the mid tibia measuring 2.0 x 1.3 x 0.7 cm. Positive probe to bone. No malodor. No active drainage. Excisional debridement down to and including subcutaneous tissue, muscle, fascia and bone with a rongeur to the left tibia full-thickness ulceration without incident. Predebridement measurement was 1.8 x 1.1 x 0.5 cm. Postdebridement measurement is 2.0 x 1.3 x 0.7 cm Musculoskeletal: No pain on palpation of full-thickness ulceration to left tibia. No pain with calf compression. Debridement Note Debridement Note Debridement Free Text: Excisional debridement down to and including subcutaneous tissue, muscle, fascia and bone with a rongeur to the left tibia full-thickness ulceration without incident. Predebridement measurement was 1.8 x 1.1 x 0.5 cm. 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 Any new allergies or adverse reactions No Had a fall/change in ADL's that may No increase risk of falls Signs or symptoms of abuse and/or No neglect since last visit Have you been in the hospital since your No last visit? Has dressing in place as prescribed Yes Has compression in place as prescribed Yes Has offloadiing in place as prescribed N/A Experienced any changes in pain level or No management Pain Scale: 0-10 Numeric Is Patient Pain Free? Yes - Nurse 1 - General Ulcer Measurement Start: 04/14/24 09:33 Freq: Status: Active Protocol: Activity Type Activity Date Activity User E-sign Co-sign Detail Recorded Client Recorded Date Recorded By Document 04/14/24 09:33 GM 04/14/24 09:41 04/14/24 09:33 Wound Center Nurse 1 #8 L Tenorio post-op -Combined with other wound No -Current Size (cm) - Length 1.5 -Current Size (cm) - Width 1.6 -Current Size (cm) - Depth 0.4 -Total Square Cm 2.40 -Date of Last Picture (Recall this 04/14/24 field) -Photo Taken Yes -Epithelialization Small 1-33% -Tunneling No -Undermining/Tunneling No -Circular Undermining No -Exudate Amt Medium -Exudate Type Serous -Wound Margin Distinct, Outline Attached -Granulation Amt Small (1-33%) -Granulation Quality [place] -Slough/Fibrin Yes -Necrosis Amt Small (1-33%) -Necrotic Tissue Type Adherent Slough -Texture (Mima-wound Skin Appearance) Assessed -Moisture (Mima-wound Skin Appearance) Assessed -Color (Mima-wound Skin Appearance) Assessed -Temperature (Mima-wound Skin No Abnormality Appearance) (Pt Warm) -Ulcer Cleansing Soap and Water -Foul Odor after Cleansing No -Anesthetic Used 5% Lidocaine Gel YVETTE - Nurse 2 - General Ulcer CM Notes Start: 04/14/24 09:33 Freq: Status: Active Protocol: Activity Type Activity Date Activity User E-sign Co-sign Detail Recorded Client Recorded Date Recorded By Document 04/14/24 09:58 JF 000 04/14/24 10:02 JF 04/14/24 09:58 Wound Center Nurse 2 -Time 09:58 -Correct Patient Yes -Correct Side, Site, Position Yes -Correct Procedure Yes -Procedure Performed Yes -Type of Procedure Debridement -Clinical Debridement Bone -Tissue Removed Non-viable tissue -Post Debridement (cm) - Length 2.0 -Post Debridement (cm) - Width 1.3 -Post Debridement (cm) - Depth 0.7 -Total Square (Post) (cm) 2.60 -Area of Debridement (cm) - Length 2.0 -Area of Debridement (cm) - Width 1.3 -Total Square (Area) (cm) 2.60 -Tunneling No -Undermining/Tunneling No -Circular Undermining No -Wound/Ulcer Outcome Not Healed -Ulcer Cleansing Rinsed/ Irrigated with Saline -Foul Odor after Cleansing No -Bioengineered Tissue No -Bleeding Controlled with Pressure -Treatment Response Procedure Tolerated Well -Offloading No -Debridement - Bone, 1st 20sq cm Yes Pain Scale: 0-10 Numeric Is Patient Pain Free? Yes - Nurse 3 - General Ulcer D/C NN Start: 04/14/24 09:33 Freq: Status: Active Protocol: Activity Type Activity Date Activity User E-sign Co-sign Detail Recorded Client Recorded Date Recorded By Document 04/14/24 10:04 JF 000 04/14/24 10:04 04/14/24 10:04 Wound Care Center Nurse 3 #8 L Tenorio post-op -Ulcer Cleansing Rinsed/ Irrigated with Saline -Foul Odor after Cleansing No -Primary Dressing Applied Mepilex Border -Other Dressing dakin's -Primary Dressing Covered/Secured with Dry Gauze -Mepilex Border 1 Left -Tubular Bandage Double Layer -Size of Tubigrip Used Size C -Size C ($) 2 Pain Scale: 0-10 Numeric Is Patient Pain Free? 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 All findings were discussed with the patient. All questions were answered to the patient's satisfaction. Excisional debridement down to and including subcutaneous tissue, muscle, fascia and bone with a rongeur to the left tibia full-thickness ulceration without incident. Predebridement measurement was 1.8 x 1.1 x 0.5 cm. Postdebridement measurement is 2.0 x 1.3 x 0.7 cm. Left lower extremity were cleaned and patted dry. The ulceration was dressed with 4 x 4 soaked Dakin's dry sterile dressing and Tubigrip donned. Patient will perform dressing changes as before. She has home health care coming. Review of the patient's MRI show evidence of concern for periosteal reaction and osteomyelitis to the midshaft of the tibia. I recommended to the patient to remove forward with surgical intervention consisting of partial excision of tibia with packing of bone with antibiotic cement with application of external fixator with possible rotational flap closure versus wound VAC application. Patient is willing to move forward and will begin getting clearance from her primary doctor. I did educate the patient that it is imperative that she quit smoking before as well as after surgery which she is understanding of and will work on her best to quit smoking. Follow-up at the wound care center with Dr. Estevez in 1 week. (2) Type 2 diabetes mellitus without complications: CODE(S): E11.9 - Type 2 diabetes mellitus without complications QUALIFIERS: Diabetes mellitus long term care pharmacist insulin use: without long term care pharmacist use Qualified Code(s): E11.9 - Type 2 diabetes mellitus without complications (3) Nicotine dependence, unspecified, uncomplicated: CODE(S): F17.200 - Nicotine dependence, unspecified, uncomplicated QUALIFIERS: Nicotine product type: cigarettes Qualified Code(s): F17.210 - Nicotine dependence, cigarettes, uncomplicated
[2024-04-28 09:25] VITALS: BP 129/62; PULSE 72; RESP 16; TEMP 36.1
--- NOTE | 2024-04-28 11:10 | PN.PCM_ITS ---
History of Present Illness Date of Service: 04/28/24 Chief Complaint: nonhealing ulcer left anterior leg. History of Wound: Surgery 12/03/22 - surgical preparation left anterior leg with incision and drainage and excisional debridement nonhealing infected MRSA ulcer and partial ostectomy tibia for osteomyelitis. Wound care - Silver dressings followed by Tubigrip. Operative Tissue and bone cultures positive for MRSA. Treated with IV Vancomycin. Infectious Diseases consulted. Pathology - pieces of bone with chronic inflammation and reactive changes, negative for acute osteomyelitis. Prealbumin from 12/04/22 was 14.5. Encouraged nutritional supplementation with protein to help with the healing process. HgbA1c from 07/19/22 was 5.7. HgbA1c needs to be less than 8 for elective surgeries. MRI left leg done on08/08/22 - Sinus tracts from the marrow of the mid to distal tibial diaphysis to the skin at the medial aspect. Marrow edema throughout the majority of the tibia. Findings concerning for osteomyelitis. Arterial study completed 11/04/22. Triphasic Doppler waveforms at ankle level bilaterally. Right MARI by dorsalis pedis = 1.15.? Left MARI by dorsalis pedis = 1.28. There is no evidence of significant arterial occlusive disease in the lower extremities bilaterally. Today she denies complaints of fever. Her appetite is ok. Subjective Subjective Ms. Calvert is a 63-year-old diabetic female presented wound care center today for follow-up evaluation of left leg ulceration. Patient will begin medical clearance through her primary for elective left leg surgery. MRI complete. We will begin moving forward with surgery once we have a date. Denies trauma. Denies constitutional symptoms. No other pedal complaints at this time. Objective Data Objective Data Vital Signs: Vital Signs Temp Pulse Resp BP O2 Del Method 96.9 F L 72 16 129/62 H Room Air 04/28/24 09:25 04/28/24 09:25 04/28/24 09:25 04/28/24 09:25 04/14/24 09:33 Oxygen Delivery Method Room Air Physical Exam Narrative Vascular: DP and PT pulses are palpable. CFT is brisk. Skin temperature great is warm to warm from proximal ankle to the distal digits to left lower extremity. Nonpitting edema appreciated to left lower extremity. Neurological: Light touch intact. Patient does respond to painful stimuli. Dermatological: Full-thickness ulceration down to bone to the level of the mid tibia measuring 1.9 x 0.8 x 0.6 cm. Positive probe to bone. No malodor. No active drainage. Excisional debridement down to and including subcutaneous tissue, muscle, fascia and bone with #3 dermal curette to the left tibia full-thickness ulceration without incident. Predebridement measurement was 1.7 x 0.5 x 0.5 cm. Postdebridement measurement is 1.9 x 0.8 x 0.6 cm Musculoskeletal: No pain on palpation of full-thickness ulceration to left tibia. No pain with calf compression. Debridement Note Debridement Note Debridement Free Text: Excisional debridement down to and including subcutaneous tissue, muscle, fascia and bone with a #3 dermal curette to the left tibia full- thickness ulceration without incident. Predebridement measurement was 1.7 x 0.5 x 0.5 cm. Postdebridement measurement is 1.9 x 0.8 x 0.6 cm Post-Debridement Measurements and Additional Note: Post-Debridement Measurements/Treatment - Nurse 1 - General Ulcer Assessment Start: 04/14/24 09:33 Freq: Status: Active Protocol: [email or web address] Activity Type Activity Date Activity User E-sign Co-sign Detail Recorded Client Recorded Date Recorded By Document 04/14/24 09:33 [facility] 04/14/24 09:41 Document 04/28/24 09:25 [id number] 04/28/24 09:36 04/14/24 04/28/24 09:33 09:25 - Today's Visit Information Type of service Follow-up Visit Follow-up Visit (Physician/MINT MACHINE OPERATOR (Physician/MINT MACHINE OPERATOR ) ) Arrival Mode Ambulatory Ambulatory Patient Identification Verified (Name & Yes Yes ) Patient Requires Transmission-Based No Precautions Vital Signs Temperature (97.8 F-99.1 F) 98.4 F 96.9 F L Temperature Source Temporal Temporal Pulse Rate (60-100) 88 72 Pulse Location Monitor Monitor Respiratory Rate (12-18) 18 16 Respiratory rate source Observation Observation Oxygen Delivery Method Room Air Blood Pressure (90/60-120/80) 118/63 129/62 H Blood Pressure Mean (mm Hg) 81 84 Source Monitor Monitor Position Sitting Semi-Fowlers Blood Pressure Location Left Arm Right Arm History Since Last Visit- (Skip if this is Patient's initial visit) Have you changed medications since your No No last visit? Any new allergies or adverse reactions No No Had a fall/change in ADL's that may No No increase risk of falls Signs or symptoms of abuse and/or No No neglect since last visit Have you been in the hospital since your No No last visit? Has dressing in place as prescribed Yes Yes Has compression in place as prescribed Yes Yes Has offloadiing in place as prescribed N/A Experienced any changes in pain level or No management Pain Scale: 0-10 Numeric Is Patient Pain Free? Yes Yes - Nurse 1 - General Ulcer Measurement Start: 04/14/24 09:33 Freq: Status: Active Protocol: Activity Type Activity Date Activity User E-sign Co-sign Detail Recorded Client Recorded Date Recorded By Document 04/14/24 09:33 GM 04/14/24 09:41 GM Document 04/28/24 09:25 CP [id number] 04/28/24 09:36 CP 04/14/24 04/28/24 09:33 09:25 Wound Center Nurse 1 #8 L Tenorio post-op -Combined with other wound No -Current Size (cm) - Length 1.5 1.5 -Current Size (cm) - Width 1.6 1 -Current Size (cm) - Depth 0.4 0.5 -Total Square Cm 2.40 1.5 -Date of Last Picture (Recall this 04/14/24 04/28/24 field) -Photo Taken Yes Yes -Epithelialization Small 1-33% -Tunneling No -Undermining/Tunneling No -Circular Undermining No -Exudate Amt Medium Small -Exudate Type Serous Sanguineous -Wound Margin Distinct, Flat & Intact Outline Attached -Granulation Amt Small (1-33%) Small (1-33%) -Granulation Quality [place] -Slough/Fibrin Yes Yes -Necrosis Amt Small (1-33%) Large (67-100%) -Necrotic Tissue Type Adherent Slough Adherent Slough -Texture (Mima-wound Skin Appearance) Assessed No Abnormality -Moisture (Mima-wound Skin Appearance) Assessed No Abnormality -Color (Mima-wound Skin Appearance) Assessed No Abnormality -Temperature (Mima-wound Skin No Abnormality No Abnormality Appearance) (Pt Warm) (Pt Warm) -Ulcer Cleansing Soap and Water Rinsed/ Irrigated with Saline -Foul Odor after Cleansing No No -Anesthetic Used 5% Lidocaine 5% Lidocaine Gel Gel - Nurse 2 - General Ulcer CM Notes Start: 04/14/24 09:33 Freq: Status: Active Protocol: Activity Type Activity Date Activity User E-sign Co-sign Detail Recorded Client Recorded Date Recorded By Document 04/14/24 09:58 JF 000 04/14/24 10:02 JF Document 04/28/24 09:39 JF [id number] 04/28/24 09:46 JF 04/14/24 04/28/24 09:58 09:39 Wound Center Nurse 2 #8 L Tenorio post-op -Time 09:58 09:44 -Correct Patient Yes Yes -Correct Side, Site, Position Yes Yes -Correct Procedure Yes Yes -Procedure Performed Yes Yes -Type of Procedure Debridement Debridement -Clinical Debridement Bone Bone -Tissue Removed Non-viable Non-viable tissue tissue -Post Debridement (cm) - Length 2.0 1.9 -Post Debridement (cm) - Width 1.3 0.8 -Post Debridement (cm) - Depth 0.7 0.6 -Total Square (Post) (cm) 2.60 1.52 -Area of Debridement (cm) - Length 2.0 1.9 -Area of Debridement (cm) - Width 1.3 0.8 -Total Square (Area) (cm) 2.60 1.52 -Tunneling No No -Undermining/Tunneling No No -Circular Undermining No No -Wound/Ulcer Outcome Not Healed Not Healed -Ulcer Cleansing Rinsed/ Rinsed/ Irrigated with Irrigated with Saline Saline -Foul Odor after Cleansing No No -Bioengineered Tissue No No -Bleeding Controlled with Pressure Pressure -Treatment Response Procedure Procedure Tolerated Well Tolerated Well -Offloading No No -Debridement - Bone, 1st 20sq cm Yes Yes Pain Scale: 0-10 Numeric Is Patient Pain Free? Yes Yes - Nurse 3 - General Ulcer D/C NN Start: 04/14/24 09:33 Freq: Status: Active Protocol: Activity Type Activity Date Activity User E-sign Co-sign Detail Recorded Client Recorded Date Recorded By Document 04/14/24 10:04 JF 000 04/14/24 10:04 JF Document 04/28/24 10:03 CP [id number] 04/28/24 10:12 04/14/24 04/28/24 10:04 10:03 Wound Care Center Nurse 3 #8 L Tenorio post-op -Ulcer Cleansing Rinsed/ Rinsed/ Irrigated with Irrigated with Saline Saline -Foul Odor after Cleansing No No -Primary Dressing Applied Mepilex Border Mepilex Border -Other Dressing dakin's dakins -Primary Dressing Covered/Secured with Dry Gauze Dry Gauze -Mepilex Border 1 1 Left -Tubular Bandage Double Layer Double Layer -Size of Tubigrip Used Size C Size C -Size C ($) 2 2 Pain Scale: 0-10 Numeric Is Patient Pain Free? 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 All findings were discussed with the patient. All questions were answered to the patient's satisfaction. Excisional debridement down to and including subcutaneous tissue, muscle, fascia and bone with #3 dermal curette to the left tibia full-thickness ulceration without incident. Predebridement measurement was 1.7 x 0.5 x 0.5 cm. Postdebridement measurement is 1.9 x 0.8 x 0.6 cm. Left lower extremity were cleaned and patted dry. The ulceration was dressed with 4 x 4 soaked Dakin's dry sterile dressing and Tubigrip donned. Patient will perform dressing changes as before. She has home health care coming. Left lower extremity surgery is pending. Patient will try to get medical clearance and reach out to the office for a surgery date. She will continue home dressing changes as above. Follow-up at the wound care center with Dr. Estevez in 1 week. (2) Type 2 diabetes mellitus without complications: CODE(S): E11.9 - Type 2 diabetes mellitus without complications QUALIFIERS: Diabetes mellitus residential insulin use: without residential use Qualified Code(s): E11.9 - Type 2 diabetes mellitus without complications (3) Nicotine dependence, unspecified, uncomplicated: CODE(S): F17.200 - Nicotine dependence, unspecified, uncomplicated QUALIFIERS: Nicotine product type: cigarettes Qualified Code(s): F17.210 - Nicotine dependence, cigarettes, uncomplicated
--- NOTE | 2024-04-29 09:33 | WC ---
PHOTO LEFT RODNEY 04/14/24
--- NOTE | 2024-04-29 13:43 | WC ---
PHOTO 04/28/24 LEFT RODNEY
[2024-05-05 10:17] VITALS: BP 111/64; PULSE 82; RESP 18; TEMP 35.8
--- NOTE | 2024-05-05 12:54 | PN.PCM_ITS ---
History of Present Illness Date of Service: 05/05/24 Chief Complaint: nonhealing ulcer left anterior leg. History of Wound: Surgery 12/03/22 - surgical preparation left anterior leg with incision and drainage and excisional debridement nonhealing infected MRSA ulcer and partial ostectomy tibia for osteomyelitis. Wound care - Silver dressings followed by Tubigrip. Operative Tissue and bone cultures positive for MRSA. Treated with IV Vancomycin. Infectious Diseases consulted. Pathology - pieces of bone with chronic inflammation and reactive changes, negative for acute osteomyelitis. Prealbumin from 12/04/22 was 14.5. Encouraged nutritional supplementation with protein to help with the healing process. HgbA1c from 07/19/22 was 5.7. HgbA1c needs to be less than 8 for elective surgeries. MRI left leg done on08/08/22 - Sinus tracts from the marrow of the mid to distal tibial diaphysis to the skin at the medial aspect. Marrow edema throughout the majority of the tibia. Findings concerning for osteomyelitis. Arterial study completed 11/04/22. Triphasic Doppler waveforms at ankle level bilaterally. Right MARI by dorsalis pedis = 1.15.? Left MARI by dorsalis pedis = 1.28. There is no evidence of significant arterial occlusive disease in the lower extremities bilaterally. Today she denies complaints of fever. Her appetite is ok. Subjective Subjective Ms. Calvert is a 63-year-old diabetic female presenting to clinic today for follow-up evaluation of left leg ulceration down to bone. Patient is anticipating surgical intervention in the next upcoming weeks to a month. She has continue home dressing changes at home. She is decreasing smoking to about a half a pack per day and will continue to smoke less. She denies any changes to the wound. Denies trauma. Denies constitutional symptoms. No other pedal complaints at this time. Objective Data Objective Data Vital Signs: Vital Signs Temp Pulse Resp BP O2 Del Method 96.4 F L 82 18 111/64 Room Air 05/05/24 10:17 05/05/24 10:17 05/05/24 10:17 05/05/24 10:17 05/05/24 10:17 Oxygen Delivery Method Room Air Physical Exam Narrative Vascular: DP and PT pulses are palpable. CFT is brisk. Skin temperature great is warm to warm from proximal ankle to the distal digits to left lower extremity. Nonpitting edema appreciated to left lower extremity. Neurological: Light touch intact. Patient does respond to painful stimuli. Dermatological: Full-thickness ulceration down to bone to the level of the mid tibia measuring 1.4 x 0.9 x 0.4 cm. Positive probe to bone. No malodor. No active drainage. Excisional debridement down to and including subcutaneous tissue, muscle, fascia and bone with #3 dermal curette to the left tibia full-thickness ulceration without incident. Predebridement measurement was 1.3 x 0.7 x 0.3 cm. Postdebridement measurement is 1.4 x 0.9 x 0.4 cm Musculoskeletal: No pain on palpation of full-thickness ulceration to left tibia. No pain with calf compression. Debridement Note Debridement Note Debridement Free Text: Excisional debridement down to and including subcutaneous tissue, muscle, fascia and bone with #3 dermal curette to the left tibia full- thickness ulceration without incident. Predebridement measurement was 1.3 x 0.7 x 0.3 cm. Postdebridement measurement is 1.4 x 0.9 x 0.4 cm Post-Debridement Measurements and Additional Note: Post-Debridement Measurements/Treatment [facility] Nurse 1 - General Ulcer Assessment Start: 04/14/24 09:33 Freq: Status: Active Protocol: .JAXSON Activity Type Activity Date Activity User E-sign Co-sign Detail Recorded Client Recorded Date Recorded By Document 04/14/24 09:33 [facility] 04/14/24 09:41 Document 04/28/24 09:25 [id number] 04/28/24 09:36 Document 05/05/24 10:17 [id number] 05/05/24 10:19 04/14/24 04/28/24 05/05/24 09:33 09:25 10:17 [facility] Today's Visit Information Type of service Follow-up Visit Follow-up Visit Follow-up Visit (Physician/UPHOLSTERER APPRENTICE (Physician/UPHOLSTERER APPRENTICE (Physician/UPHOLSTERER APPRENTICE ) ) ) Arrival Mode Ambulatory Ambulatory Ambulatory Transfer Assistance None Patient Identification Verified (Name & Yes Yes Yes ) Patient Requires Transmission-Based No Precautions Vital Signs Temperature (97.8 F-99.1 F) 98.4 F 96.9 F L 96.4 F L Temperature Source Temporal Temporal Temporal Pulse Rate (60-100) 88 72 82 Pulse Location Monitor Monitor Monitor Respiratory Rate (12-18) 18 16 18 Respiratory rate source Observation Observation Observation Oxygen Delivery Method Room Air Room Air Blood Pressure (90/60-120/80) 118/63 129/62 H 111/64 Blood Pressure Mean (mm Hg) 81 84 79 Source Monitor Monitor Monitor Position Sitting Semi-Fowlers Sitting Blood Pressure Location Left Arm Right Arm Right Arm History Since Last Visit- (Skip if this is Patient's initial visit) Have you changed medications since your No No No last visit? Any new allergies or adverse reactions No No No Had a fall/change in ADL's that may No No No increase risk of falls Signs or symptoms of abuse and/or No No No neglect since last visit Have you been in the hospital since your No No No last visit? Has dressing in place as prescribed Yes Yes Yes Has compression in place as prescribed Yes Yes Yes Has offloadiing in place as prescribed N/A N/A Experienced any changes in pain level or No No management Left Footwear Regular Shoe Right Footwear Regular Shoe Pain Scale: 0-10 Numeric Is Patient Pain Free? Yes Yes Yes - Nurse 1 - General Ulcer Measurement Start: 04/14/24 09:33 Freq: Status: Active Protocol: Activity Type Activity Date Activity User E-sign Co-sign Detail Recorded Client Recorded Date Recorded By Document 04/14/24 09:33 [facility] 04/14/24 09:41 Document 04/28/24 09:25 [id number] 04/28/24 09:36 Document 05/05/24 10:17 [id number] 05/05/24 10:19 04/14/24 04/28/24 05/05/24 09:33 09:25 10:17 [facility] Nurse 1 #8 L Tenorio post-op -Combined with other wound No -Current Size (cm) - Length 1.5 1.5 1.0 -Current Size (cm) - Width 1.6 1 1.0 -Current Size (cm) - Depth 0.4 0.5 0.6 -Total Square Cm 2.40 1.5 1.00 -Date of Last Picture (Recall this 04/14/24 04/28/24 05/05/24 field) -Photo Taken Yes Yes Yes -Epithelialization Small 1-33% None Present -Tunneling No No -Undermining/Tunneling No No -Circular Undermining No No -Exudate Amt Medium Small -Exudate Type Serous Sanguineous Serous -Wound Margin Distinct, Flat & Intact Distinct, Outline Outline Attached Attached -Granulation Amt Small (1-33%) Small (1-33%) Small (1-33%) -Granulation Quality [place] -Slough/Fibrin Yes Yes Yes -Necrosis Amt Small (1-33%) Large (67-100%) None Present (0 %) -Necrotic Tissue Type Adherent Slough Adherent Slough -Texture (Mima-wound Skin Appearance) Assessed No Abnormality Assessed -Moisture (Mima-wound Skin Appearance) Assessed No Abnormality Assessed -Color (Mima-wound Skin Appearance) Assessed No Abnormality Assessed -Temperature (Mima-wound Skin No Abnormality No Abnormality No Abnormality Appearance) (Pt Warm) (Pt Warm) (Pt Warm) -Ulcer Cleansing Soap and Water Rinsed/ Soap and Water Irrigated with Saline -Foul Odor after Cleansing No No Yes -Anesthetic Used 5% Lidocaine 5% Lidocaine 5% Lidocaine Gel Gel Gel Lower Limb Edema Present NA Right Calf (cm) 29.3 Right Ankle (cm) 19 WC - Nurse 2 - General Ulcer CM Notes Start: 04/14/24 09:33 Freq: Status: Active Protocol: Activity Type Activity Date Activity User E-sign Co-sign Detail Recorded Client Recorded Date Recorded By Document 04/14/24 09:58 [id number] 04/14/24 10:02 Document 04/28/24 09:39 [id number] 04/28/24 09:46 Document 05/05/24 10:32 [id number] 05/05/24 10:34 04/14/24 04/28/24 05/05/24 09:58 09:39 10:32 Wound Center Nurse 2 #8 L Tenorio post-op -Time : 09:44 10:33 -Correct Patient Yes Yes Yes -Correct Side, Site, Position Yes Yes Yes -Correct Procedure Yes Yes Yes -Procedure Performed Yes Yes Yes -Type of Procedure Debridement Debridement Debridement -Clinical Debridement Bone Bone Bone -Tissue Removed Non-viable Non-viable Non-viable tissue tissue tissue -Post Debridement (cm) - Length 2.0 1.9 1.4 -Post Debridement (cm) - Width 1.3 0.8 0.9 -Post Debridement (cm) - Depth 0.7 0.6 0.6 -Total Square (Post) (cm) 2.60 1.52 1.26 -Area of Debridement (cm) - Length 2.0 1.9 1.4 -Area of Debridement (cm) - Width 1.3 0.8 0.9 -Total Square (Area) (cm) 2.60 1.52 1.26 -Tunneling No No No -Undermining/Tunneling No No No -Circular Undermining No No No -Wound/Ulcer Outcome Not Healed Not Healed Not Healed -Ulcer Cleansing Rinsed/ Rinsed/ Rinsed/ Irrigated with Irrigated with Irrigated with Saline Saline Saline -Foul Odor after Cleansing No No No -Bioengineered Tissue No No No -Bleeding Controlled with Pressure Pressure Pressure -Treatment Response Procedure Procedure Procedure Tolerated Well Tolerated Well Tolerated Well -Offloading No No No -Debridement - Bone, 1st 20sq cm Yes Yes Yes Pain Scale: 0-10 Numeric Is Patient Pain Free? Yes Yes Yes - Nurse 3 - General Ulcer D/C NN Start: 04/14/24 09:33 Freq: Status: Active Protocol: Activity Type Activity Date Activity User E-sign Co-sign Detail Recorded Client Recorded Date Recorded By Document 04/14/24 10:04 000 04/14/24 10:04 Document 04/28/24 10:03 [id number] 04/28/24 10:12 CP Document 05/05/24 10:46 KW sef 05/05/24 10:46 KW 04/14/24 04/28/24 05/05/24 10:04 10:03 10:46 [facility] Nurse 3 #8 L Tenorio post-op -Ulcer Cleansing Rinsed/ Rinsed/ Irrigated with Irrigated with Saline Saline -Foul Odor after Cleansing No No -Primary Dressing Applied Mepilex Border Mepilex Border Mepilex Border -Other Dressing dakin's dakins dakins soaked gauze -Primary Dressing Covered/Secured with Dry Gauze Dry Gauze -Mepilex Border 1 1 1 Left -Tubular Bandage Double Layer Double Layer Double Layer -Size of Tubigrip Used Size C Size C Size C -Size C ($) 2 2 2 Pain Scale: 0-10 Numeric Is Patient Pain Free? 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 All findings were discussed with the patient. All questions were answered to the patient's satisfaction. Excisional debridement down to and including subcutaneous tissue, muscle, fascia and bone with #3 dermal curette to the left tibia full-thickness ulceration without incident. Predebridement measurement was 1.3 x 0.7 x 0.3 cm. Postdebridement measurement is 1.4 x 0.9 x 0.4 cm. Left lower extremity were cleaned and patted dry. The ulceration was dressed with 4 x 4 soaked Dakin's dry sterile dressing and Tubigrip donned. Patient will perform dressing changes as before. She has home health care coming. Left lower extremity surgery is pending. Patient will try to get medical clearance and reach out to the office for a surgery date. She will continue h ome dressing changes as above. Follow-up at the wound care center with Dr. Estevez in 1 week. (2) Type 2 diabetes mellitus without complications: CODE(S): E11.9 - Type 2 diabetes mellitus without complications QUALIFIERS: Diabetes mellitus termite control technician insulin use: without termite control technician use Qualified Code(s): E11.9 - Type 2 diabetes mellitus without complications (3) Nicotine dependence, unspecified, uncomplicated: CODE(S): F17.200 - Nicotine dependence, unspecified, uncomplicated QUALIFIERS: Nicotine product type: cigarettes Qualified Code(s): F17.210 - Nicotine dependence, cigarettes, uncomplicated
--- NOTE | 2024-05-06 09:08 | WC ---
PHOTO 05/05/24 LEFT RODNEY
== END 2024-05-08 23:59 | disposition home or self-care (01) ==
LOC: WC 10:15
PROVIDERS: Referring Provider Nurse Practitioner Family; Visit Provider Podiatrist Foot & Ankle Surgery
DX: L97.824 Non-pressure chronic ulcer of other part of left lower leg with necrosis of bone (principal); E11.9 Type 2 diabetes mellitus without complications; F17.210 Nicotine dependence, cigarettes, uncomplicated
CPT/HCPCS: 11044

== ENCOUNTER 2024-05-06 05:57 | Day surgery (SDC) | payer MEDICAID, SELFPAY ==
[2024-05-06] VITALS (8 sets, daily range): BP systolic 100–123; BP diastolic 57–65; PULSE 64–75; RESP 14–16; TEMP 36.4–37.1; O2SAT 96–100; BMI 20.1
--- NOTE | 2024-05-06 06:52 | HP.PCM_ITS ---
History and Physical Date of Admission: 05/06/24 Intake Vital Signs 03/22/2411:42 04/15/2413:45 Height 4 ft 10 in 4 ft 10 in Weight: 102 lb BMI 21.3 BP 121/74 H Blood Pressure Location Rt brachial Position Sitting Respiration 17 Pulse 82 Pulse Source Monitor Pulse Oximetry (%) 98 Oxygen Delivery Method room air Intake Visit Reasons: L BREAST/AXILLA BIRADS 4 Chief Complaint: left axilla birads 4 Is patient in pain?: No Allergies Penicillins Allergy (Severe, Verified 04/15/24 13:47) Shortness of breathamoxicillin Allergy (Verified 04/15/24 13:47) Hivesaspirin Adverse Reaction (Verified 04/15/24 13:47) it chokes me. PFSH Medical History Anemia Anxiety Depression DM type 2, goal HbA1c < 7% DM type 2, goal HbA1c < 7% Emphysema, unspecified Epilepsy FH: bilateral hip replacements Gastric reflux High cholesterol Loss of hearing MRSA (methicillin resistant Staphylococcus aureus) infection Myocardial infarct Open wound Osteomyelitis Seizures Sequelae of open wound of left lower extremity Smoker Ulcer of left yoder limited to breakdown of skin Wears dentures Wears glasses Surgical History H/O: hysterectomy History of cardiac catheterization H/O repair of right rotator cuff History of cholecystectomy Family History (Updated 04/15/24 @ 13:45 by Paula Davenport) Mother Arthritis Social History Smoking Status: Current every day smoker tobacco type: cigarettes HPI HPI HPI: Patient is a 63-year-old female here for left axillary mass. She says has been there for about 6 to 8 months. She says that she was recently on Bactrim and she feels like it shrunk. She does not have a mass on the opposite side. She denies any previous skin cancers or breast cancers. ROS General General: No weight change, appetite, fatigue, colon cancer, breast cancer or weakness HEENT HEENT: Yes swollen glands; No difficulty swallowing, eye injury, eye surgery or hoarseness Endo Endocrine: No thyroid disease, diabetes mellitus, thyroid cancer, Hair loss, heat intolerance or cold intolerance Skin Skin: No rash or changing moles Breast Breast: Yes abnormal mammogram and abnormal US; No left breast lump, right breast lump, nipple discharge, breast pain or breast enlargement Musc Musculoskeletal: Yes back problems and rheumatoid arthritis; No arthritis, gout or joint pain Cardio Cardiovascular: Yes heart attack; No murmur, pacemaker, heart disease, atrial fibrillation, high blood pressure, heart stent, palpitations, shortness of breat with exertion or chest pain Psych Psychiatric: Yes depression and anxiety; No hearing voices Resp Respiratory: Yes shortness of breath, No sleep apnea, Yes cough, Yes COPD, No asthma, Yes emphysema and No wheezing Gastro Gastrointestinal: No abdominal pain, No nausea or vomiting, No diarrhea, No constipation, No blood in stool, Yes acid reflux, No hemorrhoids, No ulcers, No gallbladder problem and No black,tarry stools Brent Hematologic: No blood thinners, No blood disorders, No bleeding, Yes anemia and No blood clots Neuro Neurologic: No system reviewed and no additional complaints, except as documented, No as per HPI, No abnormal gait, No abnormal hearing, No abnormal movements, No abnormal speech, No behavioral changes, No burning sensations, No confusion, No convulsions, No disequilibrium, No dizziness, No localized weakness, No frequent falls, No headache(s), No lack of coordination, No loss of vision, No memory loss, No numbness, No other visual disturbances, No radicular pain, No restless legs, No sensory deficit, No syncope, No tingling, No tremor(s), No weakness and No other Exam Const General: cooperative Orientation: alert and oriented x3 HENCT Head: normal to inspection Neck Neck: normal visual inspection and full ROM Chest Chest palpation & inspection: normal inspection of the chest Other: Left axillary mass Resp Effort & Inspection: normal respiratory effort Auscultation: clear to auscultation bilaterally Cardio Rate: regular rate Rhythm: regular rhythm GI Inspection: non-distended Palpation: soft and nontender Skin General: no rashes or lesions noted Neuro General: patient alert and patient oriented x3 Extrem General: full ROM Psych Appearance: grossly normal Mental Status: mental status grossly normal Assessment and Plan Assessment and Plan (1) Mass of left axilla: Status: Acute Plan: The patient has a small palpable mass in her left axilla. I performed an ultrasound in the office and it appears to go deeper and be bilobed. I recommend excisional biopsy to adequately sample the entire mass and due to its proximity to the blood vessels of the arm. I discussed performing excisional biopsy in the operating room with her in detail. I discussed the risks including but not limited to bleeding, infection, injury to other organs such as blood vessels or nerves. Patient understands the risks and is willing to proceed with excisional biopsy of left axillary mass. Jw Johnson MD Pager: [facility] [address] [place] [address], [address] [place] [address] Office: I have examined the patient and the H&P has been reviewed. There are no clinical changes since date of exam.
[2024-05-06] MEDS: Lactated Ringers 1,000 ML 15 ML IV (06:55)
--- NOTE | 2024-05-06 07:06 | PCM.PRE.AN2 ---
ASA Classification* ASA Classification ASA Classification: 3 Assessment & Plan Anesthesia* Anesthesia Assessment Anesthesia Assessment: Discussed sedation and/or anesthesia options, risks, benefits, and alternatives with patient/parents/legal guardian/POA. Questions invited. The patient/parents/legal guardian/POA seems to understand and agrees to proceed with anesthesia plan. Reviewed the physical assessment, medical history, allergy history and patient home medications list prior to surgery/procedure/anesthetic and documented any changes. Performed airway and anesthesia risk assessments. Anesthesia Type Anesthesia Type: General Anesthesia Focused Assessment* Temperature: 98.7 F Pulse Rate: 75 Blood Pressure: 100/57 Respiratory Rate: 16 Pulse Ox: 96 Airway Assessment Mouth opens: >3 cm Mallampati Score: II Focused Labs Anesthesia Preop lab: CBC WBC 6.0 K/mm3 (4.4-11.0) 03/22/24 10:52 RBC 4.09 M/mm3 (4.2-5.4) L 03/22/24 10:52 Hgb 12.1 g/dL (12.0-15.0) 03/22/24 10:52 Hct 37.2 % (37-47) 03/22/24 10:52 Plt Count 183 K/mm3 (150-450) 03/22/24 10:52 CHEMISTRY Potassium 4.3 mmol/L (3.5-5.1) 03/22/24 10:52 Sodium 134 mmol/L (136-145) L 03/22/24 10:52 BUN 24 mg/dL (7-18) H 03/22/24 10:52 Creatinine 0.56 mg/dL (0.55-1.02) 03/22/24 10:52 Glucose 97 mg/dL (74-106) 03/22/24 10:52 POC Glucose 137 mg/dL (74-106) H 12/05/22 11:00 COAG PT 12.9 SECONDS (11.7-14.9) 06/12/20 11:58 Pre-Assessment Diagnosis/Proposed Procedure Planned Operative Procedure(s): EXCISION OF LEFT AXILLA LYMPH NODE BIOPSY Anesthesia History 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 When Was Last Pacemaker Check QUESTION #4 FULL TEXT: You/Your Family Experience fever (hyperthermia) with Anesthesia Last Oral Intake Last Oral intake: Last Oral Intake NPO since 05:00 05/06/24 06:57 Meds taken in AM with sips of Yes 05/06/24 06:57 water? 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 Female Yes 04/22/24 15:00 HX of Motion Sickness No 04/22/24 15:00 HX of N/V After Surgery No 04/22/24 15:00 Non-Smoker No 04/22/24 15:00 Duration of Surgery greater No 04/22/24 15:00 than 60 minutes Number of Risk Factors 1 04/22/24 15:00 PONV Score Low Risk 04/22/24 15:00 Height & Weight Height & Weight: Anesthesia: Height & Weight Height 4 ft 11 in 05/06/24 06:57 Weight: 45.3 kg 05/06/24 06:57 Body Mass Index (BMI) 20.1 05/06/24 06:57 Respiratory Assessment Respiratory Assessment - 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 Has anyone observed you stop No 04/22/24 15:00 breathing during sleep? STOP Results Negative 04/22/24 15:00 QUESTION #5 FULL TEXT : Do you snore loudly (louder than talking or can be heard through closed doors)? 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 Specify any problems Hx of Preganancy in last 3 No 04/22/24 15:00 Months Nurse Filling Out Transfusion DSCHRIBER 04/22/24 15:00 & Questions: Date: 04/22/24 04/22/24 15:00 Time: 15:02 04/22/24 15:00 Patient unable to answer at this time (ie. 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: /Reproductive Hx- jig boring machine operator for metal Hx Now No 04/22/24 15:00 Gestational Age (in weeks): EDC: Hx Hx Para Hx Section SAB No 04/22/24 15:00 Active Medications Active Medications: Current Medications Generic Name Dose Route Start Last Admin Trade Name Freq PRN Reason Stop Dose Admin Clindamycin Phosphate 900 mg in 50 mls @ 75 mls/hr 05/06/24 08:40 Cleocin IV 05/06/24 09:19 PREOP ONE Lactated Ringer's 1,000 mls @ 15 mls/hr 05/06/24 06:15 05/06/24 06:55 IV 15 mls/hr .Q48H DUC Administration PFSH Medical History Alcohol use Rheumatoid arthritis Back pain Diabetes Shortness of breath on exertion Hoarseness Open wound History of pain when walking DM type 2, goal HbA1c < 7% Loss of hearing Wears dentures Anemia High cholesterol Epilepsy Gastric reflux Emphysema, unspecified MRSA (methicillin resistant Staphylococcus aureus) infection Sequelae of open wound of left lower extremity DM type 2, goal HbA1c < 7% FH: bilateral hip replacements Depression Anxiety Smoker Myocardial infarct Osteomyelitis Home Medications ?Medication ?Instructions ?Recorded ?Last Taken ?Type alendronate 70 mg tablet 70 mg PO SA BONES 12/22/16 06/10/20 History ipratropium 20 mcg-albuterol 100 1 puff inhalation Q6H SOB 12/22/16 Unknown History mcg/actuation mist for inhalation (Combivent Respimat) phenytoin sodium extended 100 mg 100 mg PO BID@0900,1700 SEIZURES 12/22/16 05/06/24 History capsule ascorbic acid (vitamin C) 500 mg 500 mg PO DAILY SUPPLEMENT 06/12/20 06/12/20 History tablet benzonatate 100 mg capsule 100 mg PO DAILY PRN Cough 06/12/20 Unknown History cyclobenzaprine 10 mg tablet 10 mg PO BID PRN PRN BACK 06/12/20 Unknown History diclofenac sodium 75 mg 75 mg PO BID PRN PRN BACK PAIN 06/12/20 Unknown History tablet,delayed release folic acid 1 mg tablet 1 mg PO BID SUPPLEMENT 06/12/20 06/12/20 History loratadine 10 mg tablet 10 mg PO DAILY ALLERGIES 06/12/20 05/06/24 History pravastatin 20 mg tablet 20 mg PO QHS CHOLESTEROL 06/12/20 05/06/24 History cholecalciferol (vitamin D3) 25 5,000 unit PO DAILY 06/15/20 Unknown Rx mcg (1,000 unit) tablet omeprazole 40 mg capsule,delayed 40 mg PO DAILY #30 caps 07/08/22 05/06/24 Rx release docusate sodium 100 mg capsule 100 mg PO BID #60 caps 05/02/23 05/06/24 Rx (Colace) nitroglycerin 0.4 mg sublingual 0.4 mg sublingual Q5M 08/18/23 Unknown History tablet (Nitrostat) sertraline 50 mg tablet (Zoloft) 75 mg PO BID 08/18/23 Unknown History trazodone 50 mg tablet 25 - 50 mg PO QHS PRN PRN sleep 01/12/24 Unknown History fluticasone fur. 200 mcg-umeclid 1 ea inhalation DAILY 04/22/24 Unknown History 62.5 mcg-vilant 25 mcg inhalat.powder (Trelegy Ellipta) lorazepam 0.5 mg tablet (Ativan) 0.5 mg PO TID PRN anxiety 04/22/24 Unknown History Allergy/AdvReac Type Severity Reaction Status Date / Time Penicillins Allergy Severe Shortness Verified 04/22/24 14:47 of breath amoxicillin Allergy Hives Verified 04/22/24 14:47 aspirin AdvReac it chokes Verified 04/22/24 14:47 me. Family History Mother Arthritis Surgical History History of incision and drainage Hx of right cataract extraction Hx of left cataract extraction H/O: hysterectomy History of cardiac catheterization H/O repair of right rotator cuff History of cholecystectomy Social History Smoking Status: Current every day smoker tobacco type: cigarettes Review of Systems (Anesthesia) ROS Narrative System reviewed and no additional complaints, except as documented.
[2024-05-06] MEDS: Clindamycin 900 MG/50 ML BAG 75 MG IV (07:24)
--- NOTE | 2024-05-06 07:30 | LYM_PTH ---
PATIENT: ANGELA JERONIMO LOC: [facility] [place] U#:[id number] AGE/SX: 63/F ROOM: RE05/06/[address]: Dr. Jw Johnson MD : 1960 BED: DIS: 05/06/2024 SPEC #: [id number] RECD: 05/06/24 07:58 STATUS: NENA BARBOZACecy #: [id number] CLAU: 05/06/24 07:[address]: Jw Johnson DEPT: SURGICAL PATHOLOGY RECD BY: Dianne Beauchamp ENTERED: 05/06/24 08:20 SP TYPE: LYM NODES OTHR DR: Dr. Alberto Dominique MD Tissues: Left axillary region Procedures: Surgery Specimen Level IV HEADER OPERATION: Excision left axilla lymph node biopsy PRE-OP DIAGNOSIS: Mass of left axilla TISSUE SUBMITTED: Mass- left axilla MICROSCOPIC DIAGNOSIS Left axillary lymph node, biopsy: One benign lymph node with extensive necrotizing granulomatous inflammation. See comment. Cyrus 05/07/2024 COMMENT Immediate evaluation by Dr. Richardson: Numerous lymphocytes and focal area of necrosis is noted. Focal changes consistent with granuloma annulare/rheumatoid nodules are also noted. Special stains for acid fast bacilli and fungi are negative for organisms; matched controls are appropriate. Flow cytometry study from [facility] show no evidence of B-cell or T-cell lymphoma. Clinical correlation and appropriate follow up are necessary. Case has been reviewed in consultation with Dr. Esquivel who concurs with the above diagnosis. IDC:AM MICROSCOPIC DESCRIPTION Slides are reviewed. GROSS DESCRIPTION Received fresh for frozen section diagnosis labeled with the patient's name is a specimen designated Left axillary lymph node. The specimen consists of a piece of dumont indurated tissue measuring 3.0 x 2.0 x 1.2cm. This specimen is received for lymphoma protocol. Four touch imprints are prepared, 2 diff quick, 2 H&E. A section is also submitted for Flow cytometry study. Sections reveal focal area of necrosis. The entire specimen is submitted in two cassettes. CHLOE/ 05/07/2024 TC:3 CPT:08971, 68621, 90655 x2
[2024-05-06] MEDS: Bupiv/Epi 0.25% 30 ML Vial (07:41)
[2024-05-06] MEDS: Lidocaine 1% (20 ml mdv) 20 ML Vial (07:41)
--- NOTE | 2024-05-06 08:04 | PCM.OPRPT ---
Report of Operation Date of Procedure: 05/06/24 Pre-Operative Diagnosis: Left axillary mass Post-Operative Diagnosis: Same Surgery/Procedure Performed:: Excision of left axillary mass Type of Anesthesia: General/Regional Specimen's removed: Left axillary mass Estimated Blood Loss (mL): 5 Description of Procedure: Patient was brought back to the operating room and general anesthesia was induced. The left axilla was prepped and draped in usual sterile fashion. The left axilla was then marked over the palpable lump and then injected with local anesthetic. Skin incision was made with a scalpel. Electrocautery was used for hemostasis. The mass was identified and grasped with Allis clamps. When grasping it it did leak sebaceous necrotic material. It was excised sharply and the lymph nodes duct was clipped and then sharply divided. The cavity was inspected and there was good hemostasis. It was irrigated and suctioned dry. The dermis was closed with interrupted 3-0 Vicryl sutures and the skin was closed with a running 4-0 Monocryl suture. Dermabond was applied. Patient was awoken and taken to PACU in stable condition and tolerated the procedure well. Admit VTE Documentation VTE Mechan Device Prophylaxis: SCD's
--- NOTE | 2024-05-06 08:08 | EX.PCM.DISCH ---
Discharge Instructions Diet Discharge Diet: Light diet - advance as tolerated Activity Discharge Activity: Return to Normal Activity and May Shower Weight Bearing Status: Weight bearing as tolerated Additional Activity Instructions:: Alternate ibuprofen and Tylenol for pain control. Dressing / Incision Call your doctor if your incision/area has: Continuous Slow Oozing, Sudden Increased Bleeding, Increased Pain/ Swelling, Increased Redness, Foul Smelling Discharge and Swelling at the incision site Call your doctor if you observe: Fever of 101 or Higher Cleanse incision/area with: Soap & Water Follow Up Care Please Follow Up With: Jw Johnson MD When: Please call to schedule 2 week follow up appointment. [phone] Test Results: Test results from this visit will be discussed in further detail at your follow-up appointment, if applicable. Discharge Plan Admission Attending Provider: Jw Johnson Primary Care Provider: Alberto Dominique Instructions Print Language: Austrian Discharge Orders/Prescriptions Prescriptions: No Action alendronate 70 MG tablet 70 mg PO SA phenytoin sodium extended 100 MG capsule 100 mg PO BID@0900,1700 Combivent Respimat 1 PUFF inhaler 1 puff inhalation Q6H cyclobenzaprine 10 MG tablet 10 mg PO BID PRN PRN (Reason: BACK) ascorbic acid (vitamin C) 500 MG tablet 500 mg PO DAILY benzonatate 100 MG capsule 100 mg PO DAILY PRN (Reason: Cough) diclofenac sodium 75 MG tablet 75 mg PO BID PRN PRN (Reason: BACK PAIN) folic acid 1 MG tablet 1 mg PO BID pravastatin 20 MG tablet 20 mg PO QHS loratadine 10 MG tablet 10 mg PO DAILY cholecalciferol (vitamin D3) 1,000 UNIT tablet 5,000 unit PO DAILY 0RF omeprazole 40 mg capsule,delayed release(DR/EC) 40 mg PO DAILY Qty: 30 0RF sertraline [Zoloft] 50 mg tablet 75 mg PO BID nitroglycerin [Nitrostat] 0.4 mg tablet, sublingual 0.4 mg sublingual Q5M Rx Instructions: do not exceed 3 doses per episode trazodone 50 mg tablet 25 - 50 mg PO QHS PRN PRN (Reason: sleep) Trelegy Ellipta 200-62.5-25 mcg blister with device 1 ea INHALATION DAILY lorazepam [Ativan] 0.5 mg tablet 0.5 mg PO TID PRN (Reason: anxiety) docusate sodium [Colace] 100 mg capsule 100 mg PO BID Qty: 60 0RF Referrals / Follow Up: Alberto Dominique MD [Primary Care Provider] - Disposition Disposition (needs filled in before D/C Order can be placed): Home, Self Care
--- NOTE | 2024-05-06 08:19 | PCM.POST.ANE ---
Anesthesia: Postop Eval I Current Vital Signs Temperature: 97.5 F Pulse Rate: 64 Blood Pressure: 122/65 Respiratory Rate: 14 Pulse Ox: 100 Oxygen Delivery Method: Room Air Assessment Airway patent: Yes Spontaneous unlabored respirations: Yes Mental status: Awake and Calm nausea: No Vomiting: No Anesthesia Complication: No Fluid Hydration Crystalloid volume administer (ml): 600 Total IV fluid infused: 600 Progress Note Anesthesia document: Postop Eval 1 completed: Yes
--- NOTE | 2024-05-06 08:59 | POSTOPAN2_ITS ---
Anesthesia Postop Eval I Sum Postop Eval Completion status Anesthesia document: Postop Eval 1 completed: Yes Anesthesia Postop Eval I Summary Anesthesia Postop Eval I Summary: Anesthesia Postop Eval I: Assessment Summary Airway patent Yes 05/06/24 08:20 INFLATABLE BUILDINGS LAMINATOR.[email or web address] Spontaneous unlabored Yes 05/06/24 08:20 INFLATABLE BUILDINGS LAMINATOR.ALYCELOU respirations Mental status Awake,Calm 05/06/24 08:20 INFLATABLE BUILDINGS LAMINATOR.JBLOU nausea No 05/06/24 08:20 INFLATABLE BUILDINGS LAMINATOR.JBLOU Vomiting No 05/06/24 08:20 INFLATABLE BUILDINGS LAMINATOR.JBLOU Anesthesia Postop Eval I: Fluid Summary Crystalloid volume administer 600 05/06/24 08:20 INFLATABLE BUILDINGS LAMINATOR.JBLOU (ml) Colloids volume administered ( ml) Blood Product volume administered (ml) Total IV fluid infused 600 05/06/24 08:20 INFLATABLE BUILDINGS LAMINATOR.JBLOU Anesthesia Postop Eval I: Summary Notes Anesthesia Complication No 05/06/24 08:20 INFLATABLE BUILDINGS LAMINATOR.ALYCELOLenore Anesthesia Complication Comment: Post-operative progress note Anesthesia: Postop Eval II Evaluation Mental status: Awake Pain Level: 0 nausea: No Vomiting: No
--- NOTE | 2024-05-06 08:59 | PCM.POSTANE2 ---
Anesthesia Postop Eval I Sum Postop Eval Completion status Anesthesia document: Postop Eval 1 completed: Yes Anesthesia Postop Eval I Summary Anesthesia Postop Eval I Summary: Anesthesia Postop Eval I: Assessment Summary Airway patent Yes 05/06/24 08:20 ART MUSEUM DOCENT.ALYCELOU Spontaneous unlabored Yes 05/06/24 08:20 ART MUSEUM DOCENT.ALYCELOU respirations Mental status Awake,Calm 05/06/24 08:20 ART MUSEUM DOCENT.JBLOU nausea No 05/06/24 08:20 ART MUSEUM DOCENT.JBLOU Vomiting No 05/06/24 08:20 ART MUSEUM DOCENT.JBLOU Anesthesia Postop Eval I: Fluid Summary Crystalloid volume administer 600 05/06/24 08:20 ART MUSEUM DOCENT.JBLOU (ml) Colloids volume administered ( ml) Blood Product volume administered (ml) Total IV fluid infused 600 05/06/24 08:20 ART MUSEUM DOCENT.JBLOU Anesthesia Postop Eval I: Summary Notes Anesthesia Complication No 05/06/24 08:20 ART MUSEUM DOCENT.ALYCELOLenore Anesthesia Complication Comment: Post-operative progress note Anesthesia: Postop Eval II Evaluation Mental status: Awake Pain Level: 0 nausea: No Vomiting: No
== END 2024-05-06 08:53 | disposition home or self-care (01) ==
LOC: SDC 05:58 → AC 06:00
PROVIDERS: Referring Provider Surgery; Visit Provider Surgery
PROC: (CPT 38500; principal; 2024-05-06 07:15)
DX: R22.32 Localized swelling, mass and lump, left upper limb (principal); G40.909 Epilepsy, unspecified, not intractable, without status epilepticus; E11.9 Type 2 diabetes mellitus without complications; F17.210 Nicotine dependence, cigarettes, uncomplicated; E78.00 Pure hypercholesterolemia, unspecified; K21.9 Gastro-esophageal reflux disease without esophagitis; I25.2 Old myocardial infarction; Z86.14 Personal history of Methicillin resistant Staphylococcus aureus infection; Z90.49 Acquired absence of other specified parts of digestive tract; Z83.3 Family history of diabetes mellitus; I87.2 Venous insufficiency (chronic) (peripheral); F41.9 Anxiety disorder, unspecified; F32.A Depression, unspecified; Z90.710 Acquired absence of both cervix and uterus
CPT/HCPCS: 38525; 01610; 88305; A4648; J7120; J2405

== ENCOUNTER 2024-05-17 10:36 | Outpatient (RCR) | payer MEDICAID, SELFPAY | END 2024-06-07 23:59 | LOC: NS 10:36 | PROVIDERS: Referring Provider Nurse Practitioner Family; Visit Provider Nurse Practitioner Family | DX: Z71.3 Dietary counseling and surveillance (principal) | CPT/HCPCS: 97803 ==

== ENCOUNTER 2024-05-26 09:30 | Outpatient (RCR) | payer MEDICAID, SELFPAY ==
[2024-05-09 00:51] VITALS: BP 129/55; PULSE 92; RESP 18; TEMP 36.8
[2024-05-12 09:13] VITALS: BP 105/54; PULSE 79; RESP 16; TEMP 36.1
--- NOTE | 2024-05-12 10:23 | PN.PCM_ITS ---
History of Present Illness Date of Service: 05/12/24 Chief Complaint: nonhealing ulcer left anterior leg. History of Wound: Surgery 12/03/22 - surgical preparation left anterior leg with incision and drainage and excisional debridement nonhealing infected MRSA ulcer and partial ostectomy tibia for osteomyelitis. Wound care - Silver dressings followed by Tubigrip. Operative Tissue and bone cultures positive for MRSA. Treated with IV Vancomycin. Infectious Diseases consulted. Pathology - pieces of bone with chronic inflammation and reactive changes, negative for acute osteomyelitis. Prealbumin from 12/04/22 was 14.5. Encouraged nutritional supplementation with protein to help with the healing process. HgbA1c from 07/19/22 was 5.7. HgbA1c needs to be less than 8 for elective surgeries. MRI left leg done on08/08/22 - Sinus tracts from the marrow of the mid to distal tibial diaphysis to the skin at the medial aspect. Marrow edema throughout the majority of the tibia. Findings concerning for osteomyelitis. Arterial study completed 11/04/22. Triphasic Doppler waveforms at ankle level bilaterally. Right MARI by dorsalis pedis = 1.15.? Left MARI by dorsalis pedis = 1.28. There is no evidence of significant arterial occlusive disease in the lower extremities bilaterally. Today she denies complaints of fever. Her appetite is ok. Subjective Subjective Ms. Calvert is a 63-year-old diabetic female presenting to clinic today for follow-up evaluation of left leg ulceration down to bone. Patient is anticipating surgical intervention in the next upcoming weeks to a month. She has continue home dressing changes at home. She is decreasing smoking to about a half a pack per day and will continue to smoke less. She denies any changes to the wound. Denies trauma. Denies constitutional symptoms. No other pedal complaints at this time. Objective Data Objective Data Vital Signs: Vital Signs Temp Pulse Resp BP O2 Del Method 97.0 F L 79 16 105/54 L Room Air 05/12/24 09:13 05/12/24 09:13 05/12/24 09:13 05/12/24 09:13 05/12/24 09:13 Oxygen Delivery Method Room Air Physical Exam Narrative Vascular: DP and PT pulses are palpable. CFT is brisk. Skin temperature great is warm to warm from proximal ankle to the distal digits to left lower extremity. Nonpitting edema appreciated to left lower extremity. Neurological: Light touch intact. Patient does respond to painful stimuli. Dermatological: Full-thickness ulceration down to bone to the level of the mid tibia measuring 1.6 x 1.3 x 0.6 cm. Positive probe to bone. No malodor. No active drainage. Excisional debridement down to and including subcutaneous tissue, muscle, fascia and bone with #3 dermal curette to the left tibia full-thickness ulceration without incident. Predebridement measurement was 1.4 x 1.0 x 0.3 cm. Postdebridement measurement is 1.6 x 1.3 x 0.6 cm Musculoskeletal: No pain on palpation of full-thickness ulceration to left tibia. No pain with calf compression. Debridement Note Debridement Note Debridement Free Text: Excisional debridement down to and including subcutaneous tissue, muscle, fascia and bone with #3 dermal curette to the left tibia full- thickness ulceration without incident. Predebridement measurement was 1.4 x 1.0 x 0.3 cm. Postdebridement measurement is 1.6 x 1.3 x 0.6 cm Post-Debridement Measurements and Additional Note: Post-Debridement Measurements/Treatment - Nurse 1 - General Ulcer Assessment Start: 05/12/24 09:12 Freq: Status: Active Protocol: [email or web address] Activity Type Activity Date Activity User E-sign Co-sign Detail Recorded Client Recorded Date Recorded By Document 05/12/24 09:13 ALIVIA [id number] 05/12/24 09:17 ALIVIA 05/12/24 09:13 - Today's Visit Information Type of service Follow-up Visit (Physician/RADIOLOGY CT TECHNOLOGIST ) Arrival Mode Ambulatory Patient Identification Verified (Name & Yes ) Vital Signs Temperature (97.8 F-99.1 F) 97.0 F L Temperature Source Temporal Pulse Rate (60-100) 79 Pulse Location Monitor Respiratory Rate (12-18) 16 Respiratory rate source Observation Oxygen Delivery Method Room Air Blood Pressure (90/60-120/80) 105/54 L Blood Pressure Mean (mm Hg) 71 Source Monitor Position Semi-Fowlers Blood Pressure Location Left Arm History Since Last Visit- (Skip if this is Patient's initial visit) Have you changed medications since your No last visit? Any new allergies or adverse reactions No Had a fall/change in ADL's that may No increase risk of falls Signs or symptoms of abuse and/or No neglect since last visit Have you been in the hospital since your No last visit? Has dressing in place as prescribed Yes Has compression in place as prescribed Yes Has offloadiing in place as prescribed N/A Experienced any changes in pain level or No management Left Footwear Regular Shoe Right Footwear Regular Shoe Pain Scale: 0-10 Numeric Is Patient Pain Free? Yes WC - Nurse 1 - General Ulcer Measurement Start: 05/12/24 09:12 Freq: Status: Active Protocol: Activity Type Activity Date Activity User E-sign Co-sign Detail Recorded Client Recorded Date Recorded By Document 05/12/24 09:13 KW [id number] 05/12/24 09:17 KW 05/12/24 09:13 Wound Center Nurse 1 #8 L Tenorio post-op -Current Size (cm) - Length 1.4 -Current Size (cm) - Width 1 -Current Size (cm) - Depth 1.1 -Total Square Cm 1.4 -Date of Last Picture (Recall this 05/12/24 field) -Exudate Amt Medium -Exudate Type Serosanguineous -Wound Margin Distinct, Outline Attached -Granulation Amt Medium (34-66%) -Granulation Quality [place] -Necrosis Amt Medium (34-66%) -Necrotic Tissue Type Adherent Slough -Texture (Mima-wound Skin Appearance) Assessed -Moisture (Mima-wound Skin Appearance) Assessed -Color (Mima-wound Skin Appearance) Assessed -Temperature (Mima-wound Skin No Abnormality Appearance) (Pt Warm) -Tenderness on Palpation (Mima-wound No Skin Appearance) -Ulcer Cleansing Rinsed/ Irrigated with Saline -Foul Odor after Cleansing No -Anesthetic Used 5% Lidocaine Gel WC - Nurse 2 - General Ulcer CM Notes Start: 05/12/24 09:12 Freq: Status: Active Protocol: Activity Type Activity Date Activity User E-sign Co-sign Detail Recorded Client Recorded Date Recorded By Document 05/12/24 09:26 TENZIN [id number] 05/12/24 09:28 JF Edit Result 05/12/24 09:26 JF (1) [id number] 05/12/24 09:31 JF (1) #8 L Tenorio post-op - Post Debridement (cm) - Length => 1.6 - Post Debridement (cm) - Width => 1.3 - Post Debridement (cm) - Depth => 0.6 - Total Square (Post) (cm) => 2.08 - Area of Debridement (cm) - Length => 1.6 - Area of Debridement (cm) - Width => 1.3 - Total Square (Area) (cm) => 2.08 05/12/24 09:26 Wound Center Nurse 2 -Time 09:28 -Correct Patient Yes -Correct Side, Site, Position Yes -Correct Procedure Yes -Procedure Performed Yes -Type of Procedure Debridement -Clinical Debridement Bone -Tissue Removed Non-viable tissue -Post Debridement (cm) - Length 1.6 -Post Debridement (cm) - Width 1.3 -Post Debridement (cm) - Depth 0.6 -Total Square (Post) (cm) 2.08 -Area of Debridement (cm) - Length 1.6 -Area of Debridement (cm) - Width 1.3 -Total Square (Area) (cm) 2.08 -Tunneling No -Undermining/Tunneling No -Circular Undermining No -Wound/Ulcer Outcome Not Healed -Ulcer Cleansing Rinsed/ Irrigated with Saline -Foul Odor after Cleansing No -Bioengineered Tissue No -Bleeding Controlled with Pressure -Treatment Response Procedure Tolerated Well -Offloading No -Debridement - Bone, 1st 20sq cm Yes Pain Scale: 0-10 Numeric Is Patient Pain Free? Yes - Nurse 3 - General Ulcer D/C NN Start: 05/12/24 09:12 Freq: Status: Active Protocol: Activity Type Activity Date Activity User E-sign Co-sign Detail Recorded Client Recorded Date Recorded By Document 05/12/24 09:47 [id number] 05/12/24 09:48 05/12/24 09:47 Wound Care Center Nurse 3 #8 L Tenorio post-op -Other Dressing dakins soaked gauze -Primary Dressing Covered/Secured with Dry Gauze & Roll Gauze, Secured with Tape Left -Tubular Bandage Double Layer -Size of Tubigrip Used Size C -Size C ($) 2 Pain Scale: 0-10 Numeric Is Patient Pain Free? 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 All findings were discussed with the patient. All questions were answered to the patient's satisfaction. Excisional debridement down to and including subcutaneous tissue, muscle, fascia and bone with #3 dermal curette to the left tibia full-thickness ulceration without incident. Predebridement measurement was 1.4 x 1.0 x 0.3 cm. Postdebridement measurement is 1.6 x 1.3 x 0.6 cm. Left lower extremities were cleaned and patted dry. Dakin soaked gauze was packed to the ulceration followed by dry sterile dressing and Tubigrip. Patient will continue dressing changes with home health care. We are still planning to move forward with surgical intervention left lower ext remity. We are awaiting surgical clearance and OR date. Follow-up at the wound care center with Dr. Estevez in 1 week. (2) Type 2 diabetes mellitus without complications: CODE(S): E11.9 - Type 2 diabetes mellitus without complications QUALIFIERS: Diabetes mellitus termite control representative insulin use: without termite control representative use Qualified Code(s): E11.9 - Type 2 diabetes mellitus without complications (3) Nicotine dependence, unspecified, uncomplicated: CODE(S): F17.200 - Nicotine dependence, unspecified, uncomplicated QUALIFIERS: Nicotine product type: cigarettes Qualified Code(s): F17.210 - Nicotine dependence, cigarettes, uncomplicated
--- NOTE | 2024-05-14 08:51 | WC ---
PHOTO 05/12/24 LEFT RODNEY
[2024-05-26 09:18] VITALS: BP 127/43; PULSE 82; RESP 18; TEMP 36.3
--- NOTE | 2024-05-26 09:46 | PCM.WC.PN ---
History of Present Illness Date of Service: 05/26/24 Chief Complaint: nonhealing ulcer left anterior leg. History of Wound: Surgery 12/03/22 - surgical preparation left anterior leg with incision and drainage and excisional debridement nonhealing infected MRSA ulcer and partial ostectomy tibia for osteomyelitis. Wound care - Silver dressings followed by Tubigrip. Operative Tissue and bone cultures positive for MRSA. Treated with IV Vancomycin. Infectious Diseases consulted. Pathology - pieces of bone with chronic inflammation and reactive changes, negative for acute osteomyelitis. Prealbumin from 12/04/22 was 14.5. Encouraged nutritional supplementation with protein to help with the healing process. HgbA1c from 07/19/22 was 5.7. HgbA1c needs to be less than 8 for elective surgeries. MRI left leg done on08/08/22 - Sinus tracts from the marrow of the mid to distal tibial diaphysis to the skin at the medial aspect. Marrow edema throughout the majority of the tibia. Findings concerning for osteomyelitis. Arterial study completed 11/04/22. Triphasic Doppler waveforms at ankle level bilaterally. Right MARI by dorsalis pedis = 1.15.? Left MARI by dorsalis pedis = 1.28. There is no evidence of significant arterial occlusive disease in the lower extremities bilaterally. Today she denies complaints of fever. Her appetite is ok. Subjective Subjective Ms. Calvert is a 63-year-old female presenting to wound care center today for follow-up evaluation of left leg tibial chronic ulceration. She has been doing dressing changes at home as instructed. She missed her improvement to the wound. Surgery is planned for late June. Denies trauma. Denies constitutional symptoms. No other pedal complaints at this time. Objective Data Objective Data Vital Signs: Vital Signs Temp Pulse Resp BP O2 Del Method 97.4 F L 82 18 127/43 H Room Air 05/26/24 09:18 05/26/24 09:18 05/26/24 09:18 05/26/24 09:18 05/26/24 09:18 Oxygen Delivery Method Room Air Physical Exam Narrative Vascular: DP and PT pulses are palpable. CFT is brisk. Skin temperature great is warm to warm from proximal ankle to the distal digits to left lower extremity. Nonpitting edema appreciated to left lower extremity. Neurological: Light touch intact. Patient does respond to painful stimuli. Dermatological: Full-thickness ulceration down to bone to the level of the mid tibia measuring 1.3 x 1.0 x 0.8 cm. Positive probe to bone. No malodor. No active drainage. Excisional debridement down to and including subcutaneous tissue, muscle, fascia and bone with #3 dermal curette to the left tibia full-thickness ulceration without incident. Predebridement measurement was 1.2 x 0.8 x 0.6 cm. Postdebridement measurement is 1.3 x 1.0 x 0.8 cm. Musculoskeletal: No pain on palpation of full-thickness ulceration to left tibia. No pain with calf compression. Debridement Note Debridement Note Debridement Free Text: Excisional debridement down to and including subcutaneous tissue, muscle, fascia and bone with #3 dermal curette to the left tibia full-thickness ulceration without incident. Predebridement measurement was 1.2 x 0.8 x 0.6 cm. Postdebridement measurement is 1.3 x 1.0 x 0.8 cm. Post-Debridement Measurements and Additional Note: Post-Debridement Measurements/Treatment - Nurse 1 - General Ulcer Assessment Start: 05/12/24 09:12 Freq: Status: Active Protocol: [email or web address] Activity Type Activity Date Activity User E-sign Co-sign Detail Recorded Client Recorded Date Recorded By Document 05/12/24 09:13 [id number] 05/12/24 09:17 KW Document 05/26/24 09:18 [id number] 05/26/24 09:25 05/12/24 05/26/24 09:13 09:18 - Today's Visit Information Type of service Follow-up Visit Follow-up Visit (Physician/HEADEND TECHNICIAN (Physician/HEADEND TECHNICIAN ) ) Arrival Mode Ambulatory Ambulatory Transfer Assistance None Patient Identification Verified (Name & Yes Yes ) Patient Requires Transmission-Based No Precautions Vital Signs Temperature (97.8 F-99.1 F) 97.0 F L 97.4 F L Temperature Source Temporal Temporal Pulse Rate (60-100) 79 82 Pulse Location Monitor Monitor Respiratory Rate (12-18) 16 18 Respiratory rate source Observation Observation Oxygen Delivery Method Room Air Room Air Blood Pressure (90/60-120/80) 105/54 L 127/43 H Blood Pressure Mean (mm Hg) 71 71 Source Monitor Monitor Position Semi-Fowlers Sitting Blood Pressure Location Left Arm Left Arm History Since Last Visit- (Skip if this is Patient's initial visit) Have you changed medications since your No No last visit? Any new allergies or adverse reactions No No Had a fall/change in ADL's that may No No increase risk of falls Signs or symptoms of abuse and/or No No neglect since last visit Have you been in the hospital since your No No last visit? Has dressing in place as prescribed Yes Yes Has compression in place as prescribed Yes Yes Has offloadiing in place as prescribed N/A N/A Experienced any changes in pain level or No No management Left Footwear Regular Shoe Regular Shoe Right Footwear Regular Shoe Regular Shoe Pain Scale: 0-10 Numeric Is Patient Pain Free? Yes Yes WC - Nurse 1 - General Ulcer Measurement Start: 05/12/24 09:12 Freq: Status: Active Protocol: Activity Type Activity Date Activity User E-sign Co-sign Detail Recorded Client Recorded Date Recorded By Document 05/12/24 09:13 KW [id number] 05/12/24 09:17 KW Document 05/26/24 09:18 [id number] 05/26/24 09:25 05/12/24 05/26/24 09:13 09:18 Wound Center Nurse 1 #8 L Tenorio post-op -Combined with other wound No -Current Size (cm) - Length 1.4 1.7 -Current Size (cm) - Width 1 1.2 -Current Size (cm) - Depth 1.1 0.6 -Total Square Cm 1.4 2.04 -Date of Last Picture (Recall this 05/12/24 05/26/24 field) -Photo Taken Yes -Epithelialization Small 1-33% -Tunneling No -Undermining/Tunneling No -Circular Undermining No -Exudate Amt Medium Medium -Exudate Type Serosanguineous Yellow/Green -Wound Margin Distinct, Distinct, Outline Outline Attached Attached -Granulation Amt Medium (34-66%) Small (1-33%) -Granulation Quality [place] -Slough/Fibrin No -Necrosis Amt Medium (34-66%) None Present (0 %) -Necrotic Tissue Type Adherent Slough -Texture (Mima-wound Skin Appearance) Assessed Assessed -Moisture (Mima-wound Skin Appearance) Assessed Assessed, Maceration -Color (Mima-wound Skin Appearance) Assessed Assessed -Temperature (Mima-wound Skin No Abnormality No Abnormality Appearance) (Pt Warm) (Pt Warm) -Tenderness on Palpation (Mima-wound No No Skin Appearance) -Ulcer Cleansing Rinsed/ Rinsed/ Irrigated with Irrigated with Saline Saline -Foul Odor after Cleansing No No -Anesthetic Used 5% Lidocaine 5% Lidocaine Gel Gel Point of measurement (cm from the medial 29 instep) Point of Measurement (cm from the medial 19.3 instep) WC - Nurse 2 - General Ulcer CM Notes Start: 05/12/24 09:12 Freq: Status: Active Protocol: Activity Type Activity Date Activity User E-sign Co-sign Detail Recorded Client Recorded Date Recorded By Document 05/12/24 09:26 JF [id number] 05/12/24 09:28 JF Edit Result 05/12/24 09:26 JF (1) [id number] 05/12/24 09:31 JF Document 05/26/24 09:33 JF [id number] 05/26/24 09:35 JF (1) #8 L Tenorio post-op - Post Debridement (cm) - Length => 1.6 - Post Debridement (cm) - Width => 1.3 - Post Debridement (cm) - Depth => 0.6 - Total Square (Post) (cm) => 2.08 - Area of Debridement (cm) - Length => 1.6 - Area of Debridement (cm) - Width => 1.3 - Total Square (Area) (cm) => 2.08 05/12/24 05/26/24 09:26 09:33 Wound Center Nurse 2 #8 L Tenorio post-op -Time 09:28 09:34 -Correct Patient Yes Yes -Correct Side, Site, Position Yes Yes -Correct Procedure Yes Yes -Procedure Performed Yes Yes -Type of Procedure Debridement Debridement -Clinical Debridement Bone Bone -Tissue Removed Non-viable Non-viable tissue tissue -Post Debridement (cm) - Length 1.6 1.3 -Post Debridement (cm) - Width 1.3 1.0 -Post Debridement (cm) - Depth 0.6 0.8 -Total Square (Post) (cm) 2.08 1.30 -Area of Debridement (cm) - Length 1.6 1.3 -Area of Debridement (cm) - Width 1.3 1.0 -Total Square (Area) (cm) 2.08 1.30 -Tunneling No No -Undermining/Tunneling No No -Circular Undermining No No -Wound/Ulcer Outcome Not Healed Not Healed -Ulcer Cleansing Rinsed/ Rinsed/ Irrigated with Irrigated with Saline Saline -Foul Odor after Cleansing No No -Bioengineered Tissue No No -Bleeding Controlled with Pressure Pressure -Treatment Response Procedure Procedure Tolerated Well Tolerated Well -Offloading No No -Debridement - Bone, 1st 20sq cm Yes Yes Pain Scale: 0-10 Numeric Is Patient Pain Free? Yes Yes - Nurse 3 - General Ulcer D/C NN Start: 05/12/24 09:12 Freq: Status: Active Protocol: Activity Type Activity Date Activity User E-sign Co-sign Detail Recorded Client Recorded Date Recorded By Document 05/12/24 09:47 KW [id number] 05/12/24 09:48 KW Document 05/26/24 09:44 [id number] 05/26/24 09:45 GM 05/12/24 05/26/24 09:47 09:44 Wound Care Center Nurse 3 #8 L Tenorio post-op -Ulcer Cleansing Not Cleansed -Foul Odor after Cleansing No -Other Dressing dakins soaked gauze -Primary Dressing Covered/Secured with Dry Gauze & Dry Gauze,Dry Roll Gauze, Gauze & Roll Secured with Gauze,Secured Tape with Tape -Other Covering dakins moist gauze Left -Lotion applied to leg before No compression wrap -Tubular Bandage Double Layer Double Layer -Size of Tubigrip Used Size C Size C -Size C ($) 2 2 Pain Scale: 0-10 Numeric Is Patient Pain Free? 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 All findings were discussed with the patient. All questions were answered to the patient's satisfaction. Excisional debridement down to and including subcutaneous tissue, muscle, fascia and bone with #3 dermal curette to the left tibia full-thickness ulceration without incident. Predebridement measurement was 1.2 x 0.8 x 0.6 cm. Postdebridement measurement is 1.3 x 1.0 x 0.8 cm. Left lower extremities were cleaned and patted dry. Dakin soaked gauze was packed to the ulceration followed by dry sterile dressing and Tubigrip. Patient will continue dressing changes with home health care. We are still planning to move forward with surgical intervention left lower extremity. We are awaiting surgical clearance and OR date. Follow-up at the wound care center with Dr. Estevez in 2 week. (2) Type 2 diabetes mellitus without complications: CODE(S): E11.9 - Type 2 diabetes mellitus without complications QUALIFIERS: Diabetes mellitus intermediate school teacher insulin use: without fci use Qualified Code(s): E11.9 - Type 2 diabetes mellitus without complications (3) Nicotine dependence, unspecified, uncomplicated: CODE(S): F17.200 - Nicotine dependence, unspecified, uncomplicated QUALIFIERS: Nicotine product type: cigarettes Qualified Code(s): F17.210 - Nicotine dependence, cigarettes, uncomplicated
== END 2024-06-07 23:59 | disposition home or self-care (01) ==
LOC: WC 09:30
PROVIDERS: Referring Provider Nurse Practitioner Family; Visit Provider Podiatrist Foot & Ankle Surgery
DX: L97.824 Non-pressure chronic ulcer of other part of left lower leg with necrosis of bone (principal); E11.9 Type 2 diabetes mellitus without complications; F17.210 Nicotine dependence, cigarettes, uncomplicated; Z86.14 Personal history of Methicillin resistant Staphylococcus aureus infection
CPT/HCPCS: 11044

== ENCOUNTER 2024-06-09 13:38 | Outpatient (CLI) | payer MEDICAID, SELFPAY ==
--- NOTE | 2024-06-09 13:52 | CT_ITS ---
EXAM: CT CHEST WITHOUT INTRAVENOUS CONTRAST CLINICAL INDICATION: SCREEN,COPD TECHNIQUE: Helically acquired images were obtained of the chest without intravenous contrast. This CT exam was performed using one or more of the following dose reduction techniques: automated exposure control, adjustment of the mA and/or kV according to patient size, and/or use of iterative reconstruction technique. COMPARISON: 02/12/2024 FINDINGS: LUNGS AND PLEURAL SPACES: Unremarkable. No mass. No consolidation or edema. No pleural effusion or thickening. No pneumothorax. HEART: Unremarkable. Heart size is normal. No pericardial effusion. No significant coronary artery calcifications. MEDIASTINUM: Unremarkable. No mediastinal or hilar adenopathy. Esophagus is unremarkable. No hiatal hernia. THYROID: Unremarkable. No thyroid lesions. BONES/JOINTS: Unremarkable. No suspicious lytic or blastic abnormality. VASCULATURE: Unremarkable. Thoracic aorta is non-dilated. CT/Chest without Contrast IMPRESSION: Negative CT chest without intravenous contrast. There has been no significant change from the reference exam. Electronically Signed: Dez Jay MD at 16:02 EDT ,
== END 2024-06-09 23:59 | disposition home or self-care (01) ==
LOC: CT 13:47
DX: M86.60 Other chronic osteomyelitis, unspecified site (principal); L97.824 Non-pressure chronic ulcer of other part of left lower leg with necrosis of bone; L89.95 Pressure ulcer of unspecified site, unstageable; M06.9 Rheumatoid arthritis, unspecified; J44.9 Chronic obstructive pulmonary disease, unspecified; G40.909 Epilepsy, unspecified, not intractable, without status epilepticus; D84.9 Immunodeficiency, unspecified; I25.118 Atherosclerotic heart disease of native coronary artery with other forms of angina pectoris; F17.210 Nicotine dependence, cigarettes, uncomplicated; I70.0 Atherosclerosis of aorta; F33.41 Major depressive disorder, recurrent, in partial remission; Z86.14 Personal history of Methicillin resistant Staphylococcus aureus infection
CPT/HCPCS: 11044; 71250

== ENCOUNTER 2024-06-16 05:57 | Day surgery (SDC) | payer MEDICAID, SELFPAY ==
[2024-06-09 16:39] LABS: Hemoglobin A1c 5.5 % (3.8-5.6)
[2024-06-13 12:07] LABS: Vitamin D 1,25-Dihydroxy 47.7 pg/mL (24.8-81.5)
[2024-06-15 16:11] LABS: Cotinine Screen Blood 65.5 ng/mL (.); Nicotine Blood 15.9 ng/mL (.)
[2024-06-16] VITALS (10 sets, daily range): BP systolic 112–145; BP diastolic 59–72; PULSE 66–83; RESP 16–20; TEMP 36.3–37.2; O2SAT 97–100; BMI 41.8
--- NOTE | 2024-06-16 | BON_PTH ---
PATIENT: ANGELA JERONIMO [place] [facility] [id number] AGE/SX: 63/F ROOM: RE06/16/[address]: Dr. Stephan Estevez DPM : 1960 BED: DIS: 06/16/2024 SPEC #: [id number] RECD: 06/16/24 11:19 STATUS: NENA RECecy #: [id number] CLAU: 06/16/24 00:[address]: Stephan Etsevez DEPT: SURGICAL PATHOLOGY RECD BY: Jeremias Friedman Tissues: Bone of lower extremity, NOS Procedures: Decalcification bone/plaque Surgery Specimen Level IV Surgery Specimen Level V HEADER OPERATION: Left lower extremity partial excision of tibia PRE-OP DIAGNOSIS: Osteomyelitis left leg TISSUE SUBMITTED: Bone of left leg MICROSCOPIC DIAGNOSIS Left leg bone, partial excision: Pieces of bone with chronic inflammation and reactive changes. Negative for acute osteomyelitis. 06/22/2024 COMMENT Case has been reviewed in consultation with Dr. Esquivel who concurs with the above diagnosis. IDC:AM MICROSCOPIC DESCRIPTION Slides are reviewed. GROSS DESCRIPTION Received in fixative is one container labeled with the patient's name and designated Bone left leg. The specimen consists of multiple pieces of bone measuring in aggregate 2.0 x 1.0 x 0.5cm. The entire specimen is submitted in one cassette after decalcification. 06/16/2024 TC:3 CPT:83684,66913
--- NOTE | 2024-06-16 06:30 | RAD_ITS ---
STUDY: X-RAY - LEFT TIBIA AND FIBULA REASON FOR EXAM: Female, 63 years old. INFECTION TECHNIQUE: 2 view(s) of the tibia and fibula were obtained. COMPARISON: None. FINDINGS: Fluoroscopy of the left leg was utilized in operating room during antibiotic bead placement and 4 images are submitted for interpretation. Healed fractures of the distal shaft of the tibia and fibular noted. RAD/Tibia & Fibula 2 Views IMPRESSION: Fluoroscopy during surgery. Electronically Signed: Jatinder Pérez MD at 11:57 EDT ,
--- NOTE | 2024-06-16 07:11 | PRE.ANES_ITS ---
ASA Classification* ASA Classification ASA Classification: 3 Assessment & Plan Anesthesia* Anesthesia Assessment Anesthesia Assessment: Discussed sedation and/or anesthesia options, risks, benefits, and alternatives with patient/parents/legal guardian/POA. Questions invited. The patient/parents/legal guardian/POA seems to understand and agrees to proceed with anesthesia plan. Reviewed the physical assessment, medical history, allergy history and patient home medications list prior to surgery/procedure/anesthetic and documented any changes. Performed airway and anesthesia risk assessments. Anesthesia Type Anesthesia Type: General and Block (Patient is consented for a popliteal block.) History Source History Obtained from:: Patient and Chart Anesthesia Focused Assessment* Temperature: 98.9 F Pulse Rate: 76 Blood Pressure: 116/72 Respiratory Rate: 20 Pulse Ox: 97 Oxygen Delivery Method: Room Air Airway Assessment Mouth opens: >3 cm Mallampati Score: IV Teeth Condition: Dentures (Patient has full dentures. These are out.) Neck Range of motion (ROM): Full ROM Focused Labs Anesthesia Preop lab: CBC WBC 6.0 K/mm3 (4.4-11.0) 03/22/24 10:52 RBC 4.09 M/mm3 (4.2-5.4) L 03/22/24 10:52 Hgb 12.1 g/dL (12.0-15.0) 03/22/24 10:52 Hct 37.2 % (37-47) 03/22/24 10:52 Plt Count 183 K/mm3 (150-450) 03/22/24 10:52 CHEMISTRY Potassium 4.3 mmol/L (3.5-5.1) 03/22/24 10:52 Sodium 134 mmol/L (136-145) L 03/22/24 10:52 BUN 24 mg/dL (7-18) H 03/22/24 10:52 Creatinine 0.56 mg/dL (0.55-1.02) 03/22/24 10:52 Glucose 97 mg/dL (74-106) 03/22/24 10:52 POC Glucose 137 mg/dL (74-106) H 12/05/22 11:00 COAG PT 12.9 SECONDS (11.7-14.9) 06/12/20 11:58 Pre-Assessment Diagnosis/Proposed Procedure Planned Operative Procedure(s): (L) Left lower extremity partial excision of tibia with application of external fixator, application of intermedullary ant ibiotic beads and wound vac Anesthesia History Anesthesia History - social science analyst: Anesthesia History - social science analyst Hx Hospitalization No 06/07/24 14:15 Any Problems With Anesthesia Yes: SLOW TO AWAKEN 06/07/24 14:15 Cholinesterase deficiency No 06/07/24 14:15 You/Your Family Experience No 06/07/24 14:15 fever (hyperthermia) with Relationship Recent Exposure to Contagious No 06/16/24 06:36 Disease Does patient have nerve No 06/07/24 14:15 stimulator Patient instructed to have device shut off --Does patient have Pacemaker No 06/16/24 06:36 or ICD? When Was Last Pacemaker Check QUESTION #4 FULL TEXT: You/Your Family Experience fever (hyperthermia) with Anesthesia Last Oral Intake Last Oral intake: Last Oral Intake NPO since 20:30 06/16/24 06:36 Meds taken in AM with sips of Yes 06/16/24 06:36 water? Meds patient instructed to take am of surgery PONV PONV - social science analyst: PONV - social science analyst Female Yes 06/07/24 14:15 HX of Motion Sickness No 06/07/24 14:15 HX of N/V After Surgery No 06/07/24 14:15 Non-Smoker No 06/07/24 14:15 Duration of Surgery greater Yes 06/07/24 14:15 than 60 minutes Number of Risk Factors 2 06/07/24 14:15 PONV Score Moderate Risk 06/07/24 14:15 Height & Weight Height & Weight: Anesthesia: Height & Weight Height 4 ft 11 in 06/16/24 06:36 Weight: 94 kg 06/16/24 06:36 Body Mass Index (BMI) 41.8 06/16/24 06:36 Respiratory Assessment Respiratory Assessment - social science analyst: Respiratory Tract Infection Hx - social science analyst Hx Respiratory Tract Infection No 06/07/24 14:15 STOP Sleep Apnea STOP Sleep Apnea - social science analyst: STOP Sleep Apnea - social science analyst Hx Hypertension No 06/07/24 14:15 Hx Sleep Apnea No 06/07/24 14:15 CPAP No 06/07/24 14:15 BIPAP No 06/07/24 14:15 Do you snore loudly (louder No 06/07/24 14:15 than talking or can be heard Do you often feel tired/ No 06/07/24 14:15 fatigued/ sleepy during daytime? Has anyone observed you stop No 06/07/24 14:15 breathing during sleep? STOP Results Negative 06/07/24 14:15 QUESTION #5 FULL TEXT : Do you snore loudly (louder than talking or can be heard through closed doors)? Tobacco Use History Tobacco Use History - social science analyst: Tobacco Use History - social science analyst Tobacco Use Cigarettes 06/12/20 15:12 Smoking Status Current every day smoker 06/07/24 14:15 Hx Tobacco Use Yes 06/07/24 14:15 Years Smoking Packs Smoked per Day 1 06/07/24 14:15 Smoking Cessation Date was within the last 15 years Hx Smoking Cessation Date Hx Smoking Cessation Counseling Any additional information?: Yes Smoking Status: Current every day smoker (Patient smoked today.) Hematologic Medial History Hematologic Hx - social science analyst: Hematologic Medical Hx - hot kettle tender Hx of Blood Transfusion No 06/07/24 14:15 Hx of Transfusion in last 3 No 06/07/24 14:15 Months Date of Last Transfusion (if within last 3 months) Ever experience any problems No 06/07/24 14:15 with transfusion(s)? Specify any problems Hx of Preganancy in last 3 N/A 06/07/24 14:15 Months Nurse Filling Out Transfusion NBUCHER 06/07/24 14:15 & Questions: Date: 06/07/24 06/07/24 14:15 Time: 14:17 06/07/24 14:15 Patient unable to answer at this time (ie. confused, unrespo /Reproduction History /Reproductive History - social science analyst: /Reproductive Hx- social science analyst Hx Now Gestational Age (in weeks): EDC: Hx Hx Para Hx Section SAB No 06/07/24 14:15 Active Medications Active Medications: Current Medications Generic Name Dose Route Start Last Admin Trade Name Freq PRN Reason Stop Dose Admin Clindamycin Phosphate 900 mg in 50 mls @ 75 mls/hr 06/16/24 07:30 Cleocin IV 06/16/24 08:09 PREOP ONE Sodium Chloride 1,000 mls @ 15 mls/hr 06/16/24 06:15 [facility] History Alcohol use Rheumatoid arthritis Back pain Diabetes Shortness of breath on exertion Hoarseness Open wound History of pain when walking DM type 2, goal HbA1c < 7% Loss of hearing Wears dentures Anemia High cholesterol Epilepsy Gastric reflux Emphysema, unspecified MRSA (methicillin resistant Staphylococcus aureus) infection Sequelae of open wound of left lower extremity DM type 2, goal HbA1c < 7% FH: bilateral hip replacements Depression Anxiety Smoker Myocardial infarct Osteomyelitis Home Medications ?Medication ?Instructions ?Recorded ?Last Taken ?Type alendronate 70 mg tablet 70 mg PO SA BONES 12/22/16 06/15/24 History ipratropium 20 mcg-albuterol 100 1 puff inhalation Q6H SOB 12/22/16 06/15/24 History mcg/actuation mist for inhalation (Combivent Respimat) phenytoin sodium extended 100 mg 100 mg PO BID@0900,1700 SEIZURES 12/22/16 06/16/24 History capsule ascorbic acid (vitamin C) 500 mg 500 mg PO DAILY SUPPLEMENT 06/12/20 06/15/24 History tablet benzonatate 100 mg capsule 100 mg PO DAILY PRN Cough 06/12/20 Unknown History cyclobenzaprine 10 mg tablet 10 mg PO BID PRN PRN BACK 06/12/20 06/13/24 History diclofenac sodium 75 mg 75 mg PO BID PRN PRN BACK PAIN 06/12/20 Unknown History tablet,delayed release folic acid 1 mg tablet 1 mg PO BID SUPPLEMENT 06/12/20 06/15/24 History loratadine 10 mg tablet 10 mg PO DAILY ALLERGIES 06/12/20 06/15/24 History pravastatin 20 mg tablet 20 mg PO QHS CHOLESTEROL 06/12/20 06/15/24 History cholecalciferol (vitamin D3) 25 5,000 unit PO DAILY 06/15/20 06/15/24 Rx mcg (1,000 unit) tablet omeprazole 40 mg capsule,delayed 40 mg PO DAILY #30 caps 07/08/22 06/16/24 Rx release docusate sodium 100 mg capsule 100 mg PO BID #60 caps 05/02/23 06/15/24 Rx (Colace) nitroglycerin 0.4 mg sublingual 0.4 mg sublingual Q5M 08/18/23 Unknown History tablet (Nitrostat) sertraline 50 mg tablet (Zoloft) 75 mg PO BID 08/18/23 06/16/24 History trazodone 50 mg tablet 25 - 50 mg PO QHS PRN PRN sleep 01/12/24 Unknown History fluticasone fur. 200 mcg-umeclid 1 ea inhalation DAILY 04/22/24 06/16/24 History 62.5 mcg-vilant 25 mcg inhalat.powder (Trelegy Ellipta) lorazepam 0.5 mg tablet (Ativan) 0.5 mg PO TID PRN anxiety 04/22/24 06/16/24 History Allergy/AdvReac Type Severity Reaction Status Date / Time Penicillins Allergy Severe Shortness Verified 06/16/24 06:33 of breath sulfamethoxazole (From Allergy Mild Rash Verified 06/16/24 06:34 Bactrim) trimethoprim (From Bactrim) Allergy Mild Rash Verified 06/16/24 06:34 amoxicillin Allergy Hives Verified 06/16/24 06:33 aspirin AdvReac it chokes Verified 06/16/24 06:33 me. Family History Mother Arthritis Surgical History History of incision and drainage Hx of right cataract extraction Hx of left cataract extraction H/O: hysterectomy History of cardiac catheterization H/O repair of right rotator cuff History of cholecystectomy Social History Smoking Status: Current every day smoker (Patient smoked today.) tobacco type: cigarettes Review of Systems (Anesthesia) ROS Narrative System reviewed and no additional complaints, except as documented.
[2024-06-16 07:13] LABS: Bedside Glucose 107 mg/dL (74-106)
--- NOTE | 2024-06-16 07:27 | OP.PCM_ITS ---
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 Full-thickness wound down to bone, left lower extremity 2. Osteomyelitis, left lower extremity Post-Operative Diagnosis: Same as preoperative diagnosis Surgery/Procedure Performed:: 1. Partial excision of tibia, left lower extremity 2. Application of intramedullary antibiotic beads, left lower extremity 3. Application of negative pressure wound VAC, left lower extremity 4. Application of posterior splint, left lower extremity Description of Surgical Findings:: 1. Evidence of hard cortical bone with concerns of chronic osteomyelitis at the level of the full-thickness wound to the left tibia. 2. Removal of all involucrum of the tibial bone. 3. Application of gentamicin antibiotic beads to the windowed out left tibia. Surgeon: Stephan Estevez on line csr: Marciano Noble Type of Anesthesia: Block,Regional, General and Local Anesthesiologist: Brendan Jack Special Medications: For anesthesia Specimen's removed: 1. Bone, tibia, left lower extremity have sent to microbiology for culture and sensitivity and the other half sent to pathology for gross description Drains: None Estimated Blood Loss (mL): 40 mL Fluids Replaced: Per anesthesia Description of Procedure: Indications For Operation: Ms. Calvert is a 63-year-old female who was admitted to [facility] for elective surgery consisting of partial excision of tibia, application of antibiotic beads, application negative pressure wound VAC and application of posterior splint to left lower extremity secondary to chronic osteomyelitis secondary to injury approximately 9 years. Patient is well-known to me at the wound care center has been dealing with a full-thickness wound down to bone for 9 years. She has seen multiple providers we have attempted to flap and debride the bone without much success. Once I got to know Ms. Calvert we had long discussions regarding the need to take the patient to the operating room to partially excise the tibia and remove the chronic osteomyelitis that has been present as well as confirmed with magnetic resonance imaging. We are planning for external fixation however the patient does have history of bedbugs at her home and I feel more comfortable not putting on external fixator will be performed the procedure and we will move forward with the posterior splint and the patient will be nonweightbearing which she agrees to. I did have many discussions through multiple visits with the patient the wound care center regarding her smoking cessation and she understands the risk and benefits if she continues to smoke after surgery. 1 major complication I discussed with the patient due to her smoking was below-knee amputation which she is very understanding of. Chart reviewed and consent was signed with all risk and benefits discussed with the patient great detail. Due to chronic osteomyelitis of the left tibia and has been deemed necessary at this time to take the patient to the operating room to perform the above procedure to help clear her of the bone infection and help her wound to heal so she may live a more functional lif e. The nature of the problem, anticipated procedures, postop recovery/convalences and risk/complications include but not limited to infection, wound healing complications, digital amputation, hypertrophic scarring, numbness, tingling, chronic pain, CRPS, over and under correction, recurrence of deformity, DVT and or PE and the need for further surgery have been discussed in great detail with the patient. All questions have been answered to the patient's satisfaction. There are no guarantees given as to the outcome of the procedure. Description of Procedure: Under mild sedation, the patient was brought into the operating room and placed on the operating table in supine position. Once the patient was under general anesthesia with laryngeal mask airway, the left lower extremity was blocked using approximately 20cc of 0.5% Marcaine plain. Anesthesia will be providing a popliteal block at the end of the procedure in the PACU please see for anesthesia note for further detail. Next, a well-padded thigh tourniquet was applied to the left lower extremity. Next, the left lower extremity was prepped and draped in normal aseptic manner. Next, a timeout was then undertaken verifying the correct patient, extremity, visibility of preoperative markings, availability of the equipment. Next, attention was directed to the left lower extremity. Using a 6 inch Esmarch, left lower extremity was exsanguinated and elevated to 60 degrees for 1 minute. Procedure #1: Partial excision of tibia, left lower extremity (CPT code 01709) Next, attention was directed to the left lower extremity full-thickness wound at the level of the diaphysis of the tibia. Large C arm fluoroscopy was used to confirm the placement site of the incision as well as marked out the full- thickness wound down to bone. Using sterile skin marker superior and inferior skin markings were marked out as well as encompassing the full-thickness wound. Next, using a #15 blade a full-thickness incision encompassing the wound down to bone was performed along the marked out incision. The excess skin around the full-thickness wound was removed and discarded. Continued sharp dissection was carried along bone to lift up the skin and 1 full-thickness flap. Cortes elevator was used to remove any scar tissue that was between the deep tissue and tibial bone. Small we Landers were gently placed underneath the skin to allow for retraction and visualization with care not to strangulate the delicate soft tissue. A combination of rongeurs, curettes and sagittal saw using a #111 blade was used to partially excise the tibia with care not to violate the posterior portion of the tibial bone. The medullary bone was scraped superiorly inferiorly and passed the back table to be sent off for microbiology. Large V shaped cuts were taken out of the involucrum of bone throughout the the tibia at the level of the full-thickness ulceration. The removed large pieces of bone fragments were passed the back table to be sent off for pathology for gross identification. Next the incision area was flushed with copious zach of normal saline. The bone was fenestrated without violating the posterior cortex with a 2-0 drill bit. Again the incision area was flushed with copious normal saline. At this time of the left lower extremity thigh tourniquet was deflated and reperfusion was noted to left lower extremity. All bleeders were ligated and cauterized as necessary. Procedure #2: Application of antibiotic beads, gentamicin beads, left lower extremity (CPT code: 10498) Next, the antibiotic beads with gentamicin antibiotic were prepared on the back table per the senior technical support analyst's recommendation. The beads were allowed to cure and showed to be good integrity once removed from their casting mold. Next, the antibiotic beads were placed in the medullary canal superiorly as well as inferiorly and the remaining beads were packed in the partial excision of tibia deficit. Procedure #3: Application of negative pressure wound VAC, left lower extremity (CPT code 37989) Next, the left lower extremity was wiped clean and patted dry. The negative pressure Prevena wound VAC was applied per the senior technical support analyst's recommendation with Betadine soaked Adaptic to the superior and inferior incision and clean Adaptic applied to the full-thickness wound followed by the purple foam and silicone borders. The wound VAC was started and set to 125 mmHg and showed no evidence of leaks. The left lower extremity was dressed with 4 x 4's dry sterile dressing and a double layer Sullivan posterior splint was donned to the left lower extremity. The patient tolerated the procedure and anesthesia well and apparent satisfactory condition and was transported to the PACU for further monitoring prior to discharge home. Vital signs stable and vascular status intact to all digits bilateral. Post Operative Plan: Weightbearing: Nonweightbearing to left lower extremity. Full weightbearing right lower extremity. Antibiotics: 900 mg clindamycin through the IV DVT Prophylaxis: 81 mg aspirin Mariscal: None Dressing: Negative pressure wound VAC, dry sterile dressing left lower extremity posterior splint X-Rays: Post-operative films taken on the operating room. Pain Medication: Percocet, Flexeril Follow-up: Patient will follow-up with Dr. Estevez 1 week, next Friday at the wound care center. Please call for appointment and time. Grafts/Implants Used: APX antibiotic beads with gentamicin Complications None Admit VTE Documentation VTE Present on Admission: No VTE Mechan Device Prophylaxis: SCD's VTE Pharm Prophylaxis ordered?: Yes
[2024-06-16] MEDS: Clindamycin 900 MG/50 ML BAG 75 MG IV (07:37)
[2024-06-16] MEDS: Bupivacaine Mpf 0.5% 30 ML VIAL (08:36)
[2024-06-16] MEDS: Gentamicin 80 MG/2 ML Vial (08:36)
--- NOTE | 2024-06-16 09:28 | PCM.POST.ANE ---
Anesthesia: Postop Eval I Current Vital Signs Temperature: 97.4 F Pulse Rate: 78 Blood Pressure: 133/67 Respiratory Rate: 16 Pulse Ox: 100 Oxygen Delivery Method: Room Air Assessment Airway patent: Yes Spontaneous unlabored respirations: Yes Mental status: Awake and Calm nausea: No Vomiting: No Anesthesia Complication: No Fluid Hydration Crystalloid volume administer (ml): 700 Total IV fluid infused: 700 Progress Note Anesthesia document: Postop Eval 1 completed: Yes
[2024-06-16] MEDS: 0.9% Normal Saline (1000mL) 1,000 ML 15 ML IV (09:37)
--- NOTE | 2024-06-16 11:12 | PCM.POSTANE2 ---
Anesthesia Postop Eval I Sum Postop Eval Completion status Anesthesia document: Postop Eval 1 completed: Yes Anesthesia Postop Eval I Summary Anesthesia Postop Eval I Summary: Anesthesia Postop Eval I: Assessment Summary Airway patent Yes 06/16/24 09:29 Spontaneous unlabored Yes 06/16/24 09:29 respirations Mental status Awake,Calm 06/16/24 09:29 nausea No 06/16/24 09:29 Vomiting No 06/16/24 09:29 Anesthesia Postop Eval I: Fluid Summary Crystalloid volume administer 700 06/16/24 09:29 (ml) Colloids volume administered ( ml) Blood Product volume administered (ml) Total IV fluid infused 700 06/16/24 09:29 Anesthesia Postop Eval I: Summary Notes Anesthesia Complication No 06/16/24 09:29 Anesthesia Complication Comment: Post-operative progress note Anesthesia: Postop Eval II Evaluation Mental status: Awake Pain Level: 0 nausea: No Vomiting: No
== END 2024-06-16 11:11 | disposition home or self-care (01) ==
LOC: SDC 05:58 → AC 05:59
PROVIDERS: Referring Provider Podiatrist Foot & Ankle Surgery; Visit Provider Podiatrist Foot & Ankle Surgery
PROC: (CPT 27640; principal; 2024-06-16 07:15)
DX: L97.824 Non-pressure chronic ulcer of other part of left lower leg with necrosis of bone (principal); M06.9 Rheumatoid arthritis, unspecified; M86.662 Other chronic osteomyelitis, left tibia and fibula; J44.9 Chronic obstructive pulmonary disease, unspecified; I47.9 Paroxysmal tachycardia, unspecified; G40.909 Epilepsy, unspecified, not intractable, without status epilepticus; I70.0 Atherosclerosis of aorta; I25.118 Atherosclerotic heart disease of native coronary artery with other forms of angina pectoris; D84.9 Immunodeficiency, unspecified; F33.41 Major depressive disorder, recurrent, in partial remission; F17.210 Nicotine dependence, cigarettes, uncomplicated
CPT/HCPCS: 27640; 20702; 01392; 64999; 80323; 36415; 73590; 76000; 82652; 82962; 83036; 87070; 87075; 87077; 87176; 87186; 87205; 88305; 88307; 88311; C1713; J7030; G0480; J2405

== ENCOUNTER 2024-07-07 09:30 | Outpatient (RCR) | payer MEDICAID, SELFPAY ==
[2024-06-08 00:44] VITALS: BP 129/55; PULSE 92; RESP 18; TEMP 36.8
[2024-06-09 09:24] VITALS: BP 109/66; PULSE 80; RESP 18; TEMP 36.7
--- NOTE | 2024-06-09 21:44 | PCM.WC.PN ---
History of Present Illness Date of Service: 06/09/24 Chief Complaint: nonhealing ulcer left anterior leg. History of Wound: Surgery 12/03/22 - surgical preparation left anterior leg with incision and drainage and excisional debridement nonhealing infected MRSA ulcer and partial ostectomy tibia for osteomyelitis. Wound care - Silver dressings followed by Tubigrip. Operative Tissue and bone cultures positive for MRSA. Treated with IV Vancomycin. Infectious Diseases consulted. Pathology - pieces of bone with chronic inflammation and reactive changes, negative for acute osteomyelitis. Prealbumin from 12/04/22 was 14.5. Encouraged nutritional supplementation with protein to help with the healing process. HgbA1c from 07/19/22 was 5.7. HgbA1c needs to be less than 8 for elective surgeries. MRI left leg done on08/08/22 - Sinus tracts from the marrow of the mid to distal tibial diaphysis to the skin at the medial aspect. Marrow edema throughout the majority of the tibia. Findings concerning for osteomyelitis. Arterial study completed 11/04/22. Triphasic Doppler waveforms at ankle level bilaterally. Right MARI by dorsalis pedis = 1.15.? Left MARI by dorsalis pedis = 1.28. There is no evidence of significant arterial occlusive disease in the lower extremities bilaterally. Today she denies complaints of fever. Her appetite is ok. Subjective Subjective Ms. Calvert is a 63-year-old female presenting to wound care center today for follow-up evaluation of left leg tibial chronic ulceration. She has been doing dressing changes at home as instructed. She missed her improvement to the wound. Surgery is planned for June 16. Denies trauma. Denies constitutional symptoms. No other pedal complaints at this time. Objective Data Objective Data Vital Signs: Vital Signs Temp Pulse Resp BP O2 Del Method 98.1 F 80 18 109/66 Room Air 06/09/24 09:24 06/09/24 09:24 06/09/24 09:24 06/09/24 09:24 06/09/24 09:24 Oxygen Delivery Method Room Air Physical Exam Narrative Vascular: DP and PT pulses are palpable. CFT is brisk. Skin temperature great is warm to warm from proximal ankle to the distal digits to left lower extremity. Nonpitting edema appreciated to left lower extremity. Neurological: Light touch intact. Patient does respond to painful stimuli. Dermatological: Full-thickness ulceration down to bone to the level of the mid tibia measuring 1.5 x 0.9 x 0.8 cm. Positive probe to bone. No malodor. No active drainage. Excisional debridement down to and including subcutaneous tissue, muscle, fascia and bone with #3 dermal curette to the left tibia full-thickness ulceration without incident. Predebridement measurement was 1.3 x 0.7 x 0.7 cm. Postdebridement measurement is 1.5 x 0.9 x 0.8 cm. Musculoskeletal: No pain on palpation of full-thickness ulceration to left tibia. No pain with calf compression. Debridement Note Debridement Note Debridement Free Text: Excisional debridement down to and including subcutaneous tissue, muscle, fascia and bone with #3 dermal curette to the left tibia full-thickness ulceration without incident. Predebridement measurement was 1.3 x 0.7 x 0.7 cm. Postdebridement measurement is 1.5 x 0.9 x 0.8 cm. 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 Any new allergies or adverse reactions No Had a fall/change in ADL's that may No increase risk of falls Signs or symptoms of abuse and/or No neglect since last visit Have you been in the hospital since your No last visit? Has dressing in place as prescribed Yes Has compression in place as prescribed Yes Has offloadiing in place as prescribed N/A Experienced any changes in pain level or No management Left Footwear Regular Shoe Right Footwear Regular Shoe Pain Scale: 0-10 Numeric Is Patient Pain Free? Yes - Nurse 1 - General Ulcer Measurement Start: 06/09/24 09:17 Freq: Status: Active Protocol: Activity Type Activity Date Activity User E-sign Co-sign Detail Recorded Client Recorded Date Recorded By Document 06/09/24 09:24 GM [id number] 06/09/24 09:26 GM 06/09/24 09:24 Wound Center Nurse 1 #8 L Tenorio post-op -Current Size (cm) - Length 1.1 -Current Size (cm) - Width 0.8 -Current Size (cm) - Depth 0.7 -Total Square Cm 0.88 -Date of Last Picture (Recall this 06/09/24 field) -Photo Taken Yes -Epithelialization Small 1-33% -Tunneling No -Undermining/Tunneling No -Circular Undermining No -Exudate Amt Medium -Exudate Type Yellow/Green -Wound Margin Distinct, Outline Attached -Granulation Amt Small (1-33%) -Granulation Quality Pale,Knierim -Necrosis Amt None Present (0 %) -Texture (Mima-wound Skin Appearance) Assessed -Moisture (Mima-wound Skin Appearance) Assessed -Color (Mima-wound Skin Appearance) Assessed -Temperature (Mima-wound Skin No Abnormality Appearance) (Pt Warm) -Tenderness on Palpation (Mima-wound No Skin Appearance) -Ulcer Cleansing Rinsed/ Irrigated with Saline -Foul Odor after Cleansing No -Anesthetic Used 5% Lidocaine Gel Lower Limb Edema Present No Left Calf (cm) 29.2 Left Ankle (cm) 19.5 - Nurse 2 - General Ulcer CM Notes Start: 06/09/24 09:17 Freq: Status: Active Protocol: Activity Type Activity Date Activity User E-sign Co-sign Detail Recorded Client Recorded Date Recorded By Document 06/09/24 09:48 [id number] 06/09/24 09:50 06/09/24 09:48 Wound Center Nurse 2 #8 L Tenorio post-op -Time 09:48 -Correct Patient Yes -Correct Side, Site, Position Yes -Correct Procedure Yes -Procedure Performed Yes -Type of Procedure Debridement -Clinical Debridement Bone -Tissue Removed Non-viable tissue -Post Debridement (cm) - Length 1.5 -Post Debridement (cm) - Width 0.9 -Post Debridement (cm) - Depth 0.8 -Total Square (Post) (cm) 1.35 -Area of Debridement (cm) - Length 1.5 -Area of Debridement (cm) - Width 0.9 -Total Square (Area) (cm) 1.35 -Tunneling No -Undermining/Tunneling No -Circular Undermining No -Wound/Ulcer Outcome Not Healed -Ulcer Cleansing Rinsed/ Irrigated with Saline -Foul Odor after Cleansing No -Bioengineered Tissue No -Bleeding Controlled with Pressure -Treatment Response Procedure Tolerated Well -Offloading No -Debridement - Bone, 1st 20sq cm Yes Pain Scale: 0-10 Numeric Is Patient Pain Free? Yes WC - Nurse 3 - General Ulcer D/C NN Start: 06/09/24 09:17 Freq: Status: Active Protocol: Activity Type Activity Date Activity User E-sign Co-sign Detail Recorded Client Recorded Date Recorded By Document 06/09/24 10:20 [email or web address] [id number] 06/09/24 10:20 KW 06/09/24 10:20 Wound Care Center Nurse 3 #8 L Tenorio post-op -Primary Dressing Applied Mepilex Border -Other Dressing dakins soaked gauze -Primary Dressing Covered/Secured with Dry Gauze -Mepilex Border 1 Left -Tubular Bandage Single Layer -Size of Tubigrip Used Size C -Size C ($) 1 Pain Scale: 0-10 Numeric Is Patient Pain Free? 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 All findings were discussed with the patient. All questions were answered to the patient's satisfaction. Excisional debridement down to and including subcutaneous tissue, muscle, fascia and bone with #3 dermal curette to the left tibia full-thickness ulceration without incident. Predebridement measurement was 1.3 x 0.7 x 0.7 cm. Postdebridement measurement is 1.5 x 0.9 x 0.8 cm. Left lower extremities were cleaned and patted dry. Dakin's moist gauze was applied to the ulceration followed by dry sterile dressing and compression wrap. It was discussed with the patient that there is concerns for hygiene regarding the patient's living quarters as a bed but was found during the patient's surgical consultation at a private office. Patient did admit to having bedbugs a few weeks ago but threw the couch out but is unsure if her house is completely red of the little box. We did discuss in great detail the nature of the surgery that we will be moving forward with next week. After explaining the external fixating device to the patient the patient declined and would like to move forward with a cast which we will bivalve to allow for access to the full-thickness wound for wound VAC application. Patient does not feel safe using the external fixator and I agree with her. We remove the external fixator application from the surgery and we will move forward with partial excision of tibia with application of antibiotic beads and application of negative pressure wound VAC to left lower extremity when the surgery is done. Educated the patient and stressed that she needs to be non-smoking after surgery and maintain a well protein balanced diet which she was understanding of. It was further discussed with the patient that if she fails to recognize the importance of smoking sensation she is at great risk for below-knee amputation to the left lower extremity which she is understanding of as well. Follow-up in 1 week (2) Nicotine dependence, unspecified, uncomplicated: CODE(S): F17.200 - Nicotine dependence, unspecified, uncomplicated QUALIFIERS: Nicotine product type: cigarettes Qualified Code(s): F17.210 - Nicotine dependence, cigarettes, uncomplicated
--- NOTE | 2024-06-10 08:09 | WC ---
PHOTO 06/09/24 LEFT RODNEY
[2024-06-17 11:58] VITALS: BP 101/52; PULSE 89; RESP 18; TEMP 35.7
[2024-06-23 09:35] VITALS: BP 116/63; PULSE 88; RESP 18; TEMP 36.2
--- NOTE | 2024-06-23 11:18 | PCM.WC.PN ---
History of Present Illness Date of Service: 06/23/24 Chief Complaint: nonhealing ulcer left anterior leg. History of Wound: Surgery 12/03/22 - surgical preparation left anterior leg with incision and drainage and excisional debridement nonhealing infected MRSA ulcer and partial ostectomy tibia for osteomyelitis. Wound care - Silver dressings followed by Tubigrip. Operative Tissue and bone cultures positive for MRSA. Treated with IV Vancomycin. Infectious Diseases consulted. Pathology - pieces of bone with chronic inflammation and reactive changes, negative for acute osteomyelitis. Prealbumin from 12/04/22 was 14.5. Encouraged nutritional supplementation with protein to help with the healing process. HgbA1c from 07/19/22 was 5.7. HgbA1c needs to be less than 8 for elective surgeries. MRI left leg done on08/08/22 - Sinus tracts from the marrow of the mid to distal tibial diaphysis to the skin at the medial aspect. Marrow edema throughout the majority of the tibia. Findings concerning for osteomyelitis. Arterial study completed 11/04/22. Triphasic Doppler waveforms at ankle level bilaterally. Right MARI by dorsalis pedis = 1.15.? Left MARI by dorsalis pedis = 1.28. There is no evidence of significant arterial occlusive disease in the lower extremities bilaterally. Today she denies complaints of fever. Her appetite is ok. Subjective Subjective Ms. Calvert is a 60-year-old female presenting to clinic today following evaluation of status post partial excision of tibia with application of antibiotic beads and wound VAC application to left lower extremity. Patient is approximately 1 week postop. She denies any pain to the surgery site but is having pain to the left heel. She has left her dressing clean dry and intact. She is nonweightbearing. She has cut down her smoking. She denies trauma. Denies constitutional symptoms. No other pedal complaints at this time. Objective Data Objective Data Vital Signs: Vital Signs Temp Pulse Resp BP O2 Del Method 97.1 F L 88 18 116/63 Room Air 06/23/24 09:35 06/23/24 09:35 06/23/24 09:35 06/23/24 09:35 06/23/24 09:35 Oxygen Delivery Method Room Air Physical Exam Narrative Vascular: DP and PT pulses are palpable. CFT is brisk. Skin temperature great is warm to warm from proximal ankle to the distal digits to left lower extremity. Nonpitting edema appreciated to left lower extremity. Neurological: Light touch intact. Patient does respond to painful stimuli. Dermatological: All incision well coapted suture. Full-thickness ulceration with exposed antibiotic beads from previous ulceration is intact. No drainage or sign of infection. Evidence of deep pressure injury with eschar that is stable with no sign of infection to the left heel. Musculoskeletal: No pain on palpation of full-thickness ulceration to left tibia. No pain with calf compression. Debridement Note Debridement Note Post-Debridement Measurements and Additional Note: Post-Debridement Measurements/Treatment - Nurse 1 - General Ulcer Assessment Start: 06/09/24 09:17 Freq: Status: Active Protocol: ELENA Activity Type Activity Date Activity User E-sign Co-sign Detail Recorded Client Recorded Date Recorded By Document 06/09/24 09:24 GM [id number] 06/09/24 09:26 GM Document 06/17/24 11:24 RB [id number] 06/17/24 11:34 RB Document 06/17/24 11:58 RB [id number] 06/17/24 12:04 RB Document 06/23/24 09:35 KW [id number] 06/23/24 09:42 KW 06/09/24 06/17/24 06/17/24 09:24 11:24 11:58 - Today's Visit Information Type of service Follow-up Visit Nurse-only Nurse-only (Physician/RECORDS ASSOCIATE Visit Visit ) Arrival Mode Ambulatory Wheelchair Wheelchair Transfer Assistance None Manual Manual Patient Identification Verified (Name & Yes Yes Yes ) Patient Requires Transmission-Based No No Precautions Vital Signs Temperature (97.8 F-99.1 F) 98.1 F 96.3 F L Temperature Source Temporal Temporal Pulse Rate (60-100) 80 89 Pulse Location Monitor Monitor Respiratory Rate (12-18) 18 18 Respiratory rate source Observation Observation Oxygen Delivery Method Room Air Blood Pressure (90/60-120/80) 109/66 101/52 L Blood Pressure Mean (mm Hg) 80 68 Source Monitor Monitor Position Sitting Sitting Blood Pressure Location Left Arm Right Arm History Since Last Visit- (Skip if this is Patient's initial visit) Have you changed medications since your No No last visit? Any new allergies or adverse reactions No No Had a fall/change in ADL's that may No No increase risk of falls Signs or symptoms of abuse and/or No No neglect since last visit Have you been in the hospital since your No Yes last visit? Has dressing in place as prescribed Yes Yes Has compression in place as prescribed Yes Yes Has offloadiing in place as prescribed N/A No Experienced any changes in pain level or No No management Left Footwear Regular Shoe Right Footwear Regular Shoe Other Footwear (Comment) Pain Scale: 0-10 Numeric Is Patient Pain Free? Yes No No RLE -Description Aching -Intensity 4 -Duration (hours) Acute -Pain Behavior Guarding -Pain Aggravating Factors ADL's -Alleviating Factors/Interventions Medication -Effectiveness of Alleviating Factor/ Minimally Intervention effective 06/23/24 09:35 - Today's Visit Information Type of service Follow-up Visit (Physician/RECORDS ASSOCIATE ) Arrival Mode Wheelchair Transfer Assistance Patient Identification Verified (Name & Yes ) Patient Requires Transmission-Based Precautions Vital Signs Temperature (97.8 F-99.1 F) 97.1 F L Temperature Source Temporal Pulse Rate (60-100) 88 Pulse Location Monitor Respiratory Rate (12-18) 18 Respiratory rate source Observation Oxygen Delivery Method Room Air Blood Pressure (90/60-120/80) 116/63 Blood Pressure Mean (mm Hg) 80 Source Monitor Position Semi-Fowlers Blood Pressure Location Left Arm History Since Last Visit- (Skip if this is Patient's initial visit) Have you changed medications since your No last visit? Any new allergies or adverse reactions No Had a fall/change in ADL's that may No increase risk of falls Signs or symptoms of abuse and/or No neglect since last visit Have you been in the hospital since your No last visit? Has dressing in place as prescribed Yes Has compression in place as prescribed Yes Has offloadiing in place as prescribed Yes Experienced any changes in pain level or No management Left Footwear Multipodus Splint/Boot Right Footwear Regular Shoe Pain Scale: 0-10 Numeric Is Patient Pain Free? Yes RLE -Description -Intensity -Duration (hours) -Pain Behavior -Pain Aggravating Factors -Alleviating Factors/Interventions -Effectiveness of Alleviating Factor/ Intervention [facility] Nurse 1 - General Ulcer Measurement Start: 06/09/24 09:17 Freq: Status: Active Protocol: Activity Type Activity Date Activity User E-sign Co-sign Detail Recorded Client Recorded Date Recorded By Document 06/09/24 09:24 [id number] 06/09/24 09:26 GM Document 06/17/24 11:58 RB [id number] 06/17/24 12:04 RB Document 06/23/24 09:35 KW [id number] 06/23/24 09:42 KW 06/09/24 06/17/24 06/23/24 09:24 11:58 09:35 Wound Center Nurse 1 #8 L Tenorio post-op -Combined with other wound No -Current Size (cm) - Length 1.1 2 -Current Size (cm) - Width 0.8 1.3 -Current Size (cm) - Depth 0.7 0.5 -Total Square Cm 0.88 2.6 -Date of Last Picture (Recall this 06/09/24 field) -Photo Taken Yes -Epithelialization Small 1-33% -Tunneling No No -Undermining/Tunneling No No -Circular Undermining No No -Exudate Amt Medium Large Large -Exudate Type Yellow/Green Serosanguineous Serosanguineous -Wound Margin Distinct, Distinct, Distinct, Outline Outline Outline Attached Attached Attached -Granulation Amt Small (1-33%) Large (67-100%) Large (67-100%) -Granulation Quality Pale,[place],Red [place],Red -Slough/Fibrin No -Necrosis Amt None Present (0 None Present (0 %) %) -Structure Exposed N/A -Texture (Mima-wound Skin Appearance) Assessed Assessed Assessed -Moisture (Mima-wound Skin Appearance) Assessed Assessed Assessed, Maceration -Color (Mima-wound Skin Appearance) Assessed Assessed Assessed, Erythema -Temperature (Mima-wound Skin No Abnormality No Abnormality No Abnormality Appearance) (Pt Warm) (Pt Warm) (Pt Warm) -Tenderness on Palpation (Mima-wound No No No Skin Appearance) -Ulcer Cleansing Rinsed/ Wound Cleanser Irrigated with Saline -Foul Odor after Cleansing No No No -Anesthetic Used 5% Lidocaine Gel -Wound Comment(s) incision well sutures intact approximated with atb beads and sutures intact Antibiotic bead left in place after NPT vac foam removed Lower Limb Edema Present No Left Calf (cm) 29.2 Left Ankle (cm) 19.5 WC - Nurse 2 - General Ulcer CM Notes Start: 06/09/24 09:17 Freq: Status: Active Protocol: Activity Type Activity Date Activity User E-sign Co-sign Detail Recorded Client Recorded Date Recorded By Document 06/09/24 09:48 [id number] 06/09/24 09:50 JF Document 06/23/24 10:05 [id number] 06/23/24 10:09 06/09/24 06/23/24 09:48 10:05 Wound Center Nurse 2 #8 L Tenorio post-op -Time 09:48 -Correct Patient Yes No -Correct Side, Site, Position Yes No -Correct Procedure Yes No -Procedure Performed Yes No -Type of Procedure Debridement -Clinical Debridement Bone -Tissue Removed Non-viable tissue -Post Debridement (cm) - Length 1.5 -Post Debridement (cm) - Width 0.9 -Post Debridement (cm) - Depth 0.8 -Total Square (Post) (cm) 1.35 -Area of Debridement (cm) - Length 1.5 -Area of Debridement (cm) - Width 0.9 -Total Square (Area) (cm) 1.35 -Tunneling No -Undermining/Tunneling No -Circular Undermining No -Wound/Ulcer Outcome Not Healed Not Healed -Ulcer Cleansing Rinsed/ Rinsed/ Irrigated with Irrigated with Saline Saline -Foul Odor after Cleansing No No -Bioengineered Tissue No No -Bleeding Controlled with Pressure Pressure -Treatment Response Procedure Procedure Tolerated Well Tolerated Well -Offloading No No -Debridement - Bone, 1st 20sq cm Yes Pain Scale: 0-10 Numeric Is Patient Pain Free? Yes Yes - Nurse 3 - General Ulcer D/C NN Start: 06/09/24 09:17 Freq: Status: Active Protocol: Activity Type Activity Date Activity User E-sign Co-sign Detail Recorded Client Recorded Date Recorded By Document 06/09/24 10:20 KW [id number] 06/09/24 10:20 KW Document 06/17/24 11:24 RB [id number] 06/17/24 11:34 RB Document 06/17/24 11:58 RB [id number] 06/17/24 12:04 RB Edit Result 06/17/24 11:58 RB (1) [id number] 06/17/24 12:05 RB Document 06/23/24 10:30 DL [id number] 06/23/24 10:31 DL (1) Notes: => phenergan RX called to [facility] and also informed pt of order called in. Rx for elevated toliet seat as pt request 06/09/24 06/17/24 06/17/24 10:20 11:24 11:58 Wound Care Center Nurse 3 #8 L Tenorio post-op -Ulcer Cleansing betadine -Primary Dressing Applied Mepilex Border NonAdherent Contact Layer -Other Dressing dakins soaked ABD/ kerlix/ gauze undercasting / ino /splint/ ino on top to secure splint -Primary Dressing Covered/Secured with Dry Gauze Dry Gauze -Other Covering -Mepilex Border 1 Left -Compression Wrap -Tubular Bandage Single Layer -Size of Tubigrip Used Size C -Size C ($) 1 Treatment Response Procedure Tolerated Well Vital Signs Temperature (97.8 F-99.1 F) 96.3 F L Temperature Source Temporal Pulse Rate (60-100) 89 Pulse Location Monitor Respiratory Rate (12-18) 18 Respiratory rate source Observation Blood Pressure (90/60-120/80) 101/52 L Blood Pressure Mean (mm Hg) 68 Source Monitor Position Sitting Blood Pressure Location Right Arm Pain Scale: 0-10 Numeric Is Patient Pain Free? Yes No No RLE -Description Aching -Intensity 4 -Duration (hours) Acute -Pain Behavior Guarding -Pain Aggravating Factors ADL's -Alleviating Factors/Interventions Medication -Effectiveness of Alleviating Factor/ Minimally Intervention effective WC - Visit Discharge Discharge Condition Stable Ambulatory Status Wheelchair Transportation Private Auto Medication Reconcilliation completed & No provided to patient/care provider Clinical Summary of Care Provided Yes Notes: phenergan RX called to [facility] and also informed pt of order called in . Rx for elevated toliet seat as pt request Facility Type Orders Sent 06/23/24 10:30 Wound Care Center Nurse 3 #8 L Tenorio post-op -Ulcer Cleansing -Primary Dressing Applied -Other Dressing betadine -Primary Dressing Covered/Secured with Dry Gauze & Roll Gauze, Secured with Tape -Other Covering padding to heel -Mepilex Border Left -Compression Wrap Ino Wrap -Tubular Bandage -Size of Tubigrip Used -Size C ($) Treatment Response Procedure Tolerated Well Vital Signs Temperature (97.8 F-99.1 F) Temperature Source Pulse Rate (60-100) Pulse Location Respiratory Rate (12-18) Respiratory rate source Blood Pressure (90/60-120/80) Blood Pressure Mean (mm Hg) Source Position Blood Pressure Location Pain Scale: 0-10 Numeric Is Patient Pain Free? 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 All findings were discussed with the patient. All questions were answered to the patient's satisfaction. The patient is incision of the left clean dry and intact. The incision was dressed with Betadine paint superior and inferior to the ulceration, covered with Adaptic dry sterile dressing and Ino wrap. Patient will be nonweightbearing to left lower extremity with assist of walker and/or wheelchair. Will begin authorization for a snap VAC due to the ulceration. Antibiotic beads were left intact as well. The patient's microbiology grew Staph aureus which is susceptible to gentamicin which is in the antibiotic beads. Educated the patient on smoking sensation. Educated the patient that she is still at high risk for below-knee amputation which she was very understanding of. Will plan for surgical intervention for removal of the antibiotic beads around 4 to 6 weeks with application of bone graft allograft. Follow-up at the wound care center with Dr. Estevez in 1 week. (2) Nicotine dependence, unspecified, uncomplicated: CODE(S): F17.200 - Nicotine dependence, unspecified, uncomplicated QUALIFIERS: Nicotine product type: cigarettes Qualified Code(s): F17.210 - Nicotine dependence, cigarettes, uncomplicated (3) Unstageable pressure ulcer: CODE(S): L89.95 - Pressure ulcer of unspecified site, unstageable
[2024-06-30 09:35] VITALS: BP 137/72; PULSE 100; RESP 18; TEMP 35.9
--- NOTE | 2024-06-30 09:52 | PCM.WC.PN ---
History of Present Illness Date of Service: 06/30/24 Chief Complaint: nonhealing ulcer left anterior leg. History of Wound: Surgery 12/03/22 - surgical preparation left anterior leg with incision and drainage and excisional debridement nonhealing infected MRSA ulcer and partial ostectomy tibia for osteomyelitis. Wound care - Silver dressings followed by Tubigrip. Operative Tissue and bone cultures positive for MRSA. Treated with IV Vancomycin. Infectious Diseases consulted. Pathology - pieces of bone with chronic inflammation and reactive changes, negative for acute osteomyelitis. Prealbumin from 12/04/22 was 14.5. Encouraged nutritional supplementation with protein to help with the healing process. HgbA1c from 07/19/22 was 5.7. HgbA1c needs to be less than 8 for elective surgeries. MRI left leg done on08/08/22 - Sinus tracts from the marrow of the mid to distal tibial diaphysis to the skin at the medial aspect. Marrow edema throughout the majority of the tibia. Findings concerning for osteomyelitis. Arterial study completed 11/04/22. Triphasic Doppler waveforms at ankle level bilaterally. Right MARI by dorsalis pedis = 1.15.? Left MARI by dorsalis pedis = 1.28. There is no evidence of significant arterial occlusive disease in the lower extremities bilaterally. Today she denies complaints of fever. Her appetite is ok. Subjective Subjective Ms. Calvert is a 63-year-old female present to clinic today follow-up evaluation status post partial excision of tibia with application of antibiotic beads and negative pressure wound VAC to left lower extremity. Patient states there is some redness to the area of surgery. She is concern for cellulitis. She does states she smokes approximately 8 to 10 cigarettes/day. She has had blood sugar well-controlled. She getting home health care for dressing changes. She is nonweightbearing. She denies trauma. Denies constitutional symptoms. Other pedal complaints at this time. Objective Data Objective Data Vital Signs: Vital Signs Temp Pulse Resp BP O2 Del Method 96.7 F L 100 18 137/72 H Room Air 06/30/24 09:35 06/30/24 09:35 06/30/24 09:35 06/30/24 09:35 06/30/24 09:35 Oxygen Delivery Method Room Air Physical Exam Narrative Vascular: DP and PT pulses are palpable. CFT is brisk. Skin temperature great is warm to warm from proximal ankle to the distal digits to left lower extremity. Nonpitting edema appreciated to left lower extremity. Blanchable erythema to periwound on the left leg. Neurological: Light touch intact. Patient does respond to painful stimuli. Dermatological: All incision well coapted suture. Full-thickness ulceration with exposed antibiotic beads from previous ulceration is intact. No drainage or sign of infection. Evidence of deep pressure injury with eschar that is stable with no sign of infection to the left heel. Blanchable erythema to periwound to the left leg Musculoskeletal: No pain on palpation of full-thickness ulceration to left tibia. No pain with calf compression. Debridement Note Debridement Note Post-Debridement Measurements and Additional Note: Post-Debridement Measurements/Treatment - Nurse 1 - General Ulcer Assessment Start: 06/09/24 09:17 Freq: Status: Active Protocol: ELENA Activity Type Activity Date Activity User E-sign Co-sign Detail Recorded Client Recorded Date Recorded By Document 06/09/24 09:24 GM [id number] 06/09/24 09:26 GM Document 06/17/24 11:24 RB [id number] 06/17/24 11:34 RB Document 06/17/24 11:58 RB [id number] 06/17/24 12:04 RB Document 06/23/24 09:35 KW [id number] 06/23/24 09:42 KW Document 06/30/24 09:35 DL [id number] 06/30/24 09:40 DL 06/09/24 06/17/24 06/17/24 09:24 11:24 11:58 - Today's Visit Information Type of service Follow-up Visit Nurse-only Nurse-only (Physician/SALES PERFORMANCE ANALYST Visit Visit ) Arrival Mode Ambulatory Wheelchair Wheelchair Transfer Assistance None Manual Manual Patient Identification Verified (Name & Yes Yes Yes ) Patient Requires Transmission-Based No No Precautions Vital Signs Temperature (97.8 F-99.1 F) 98.1 F 96.3 F L Temperature Source Temporal Temporal Pulse Rate (60-100) 80 89 Pulse Location Monitor Monitor Respiratory Rate (12-18) 18 18 Respiratory rate source Observation Observation Oxygen Delivery Method Room Air Blood Pressure (90/60-120/80) 109/66 101/52 L Blood Pressure Mean (mm Hg) 80 68 Source Monitor Monitor Position Sitting Sitting Blood Pressure Location Left Arm Right Arm History Since Last Visit- (Skip if this is Patient's initial visit) Have you changed medications since your No No last visit? Any new allergies or adverse reactions No No Had a fall/change in ADL's that may No No increase risk of falls Signs or symptoms of abuse and/or No No neglect since last visit Have you been in the hospital since your No Yes last visit? Has dressing in place as prescribed Yes Yes Has compression in place as prescribed Yes Yes Has offloadiing in place as prescribed N/A No Experienced any changes in pain level or No No management Left Footwear Regular Shoe Right Footwear Regular Shoe Other Footwear (Comment) Pain Scale: 0-10 Numeric Is Patient Pain Free? Yes No No RLE -Description Aching -Intensity 4 -Duration (hours) Acute -Pain Behavior Guarding -Pain Aggravating Factors ADL's -Alleviating Factors/Interventions Medication -Effectiveness of Alleviating Factor/ Minimally Intervention effective 06/23/24 06/30/24 09:35 09:35 WC - Today's Visit Information Type of service Follow-up Visit Follow-up Visit (Physician/SALES PERFORMANCE ANALYST (Physician/SALES PERFORMANCE ANALYST ) ) Arrival Mode Wheelchair Wheelchair Transfer Assistance Patient Identification Verified (Name & Yes Yes ) Patient Requires Transmission-Based Precautions Vital Signs Temperature (97.8 F-99.1 F) 97.1 F L 96.7 F L Temperature Source Temporal Temporal Pulse Rate (60-100) 88 100 Pulse Location Monitor Monitor Respiratory Rate (12-18) 18 18 Respiratory rate source Observation Observation Oxygen Delivery Method Room Air Room Air Blood Pressure (90/60-120/80) 116/63 137/72 H Blood Pressure Mean (mm Hg) 80 93 Source Monitor Monitor Position Semi-Fowlers Semi-Fowlers Blood Pressure Location Left Arm Left Arm History Since Last Visit- (Skip if this is Patient's initial visit) Have you changed medications since your No No last visit? Any new allergies or adverse reactions No No Had a fall/change in ADL's that may No No increase risk of falls Signs or symptoms of abuse and/or No No neglect since last visit Have you been in the hospital since your No No last visit? Has dressing in place as prescribed Yes Yes Has compression in place as prescribed Yes Yes Has offloadiing in place as prescribed Yes Yes Experienced any changes in pain level or No No management Left Footwear Multipodus Slipper Splint/Boot Right Footwear Regular Shoe Regular Shoe Pain Scale: 0-10 Numeric Is Patient Pain Free? Yes Yes RLE -Description -Intensity -Duration (hours) -Pain Behavior -Pain Aggravating Factors -Alleviating Factors/Interventions -Effectiveness of Alleviating Factor/ Intervention WC - Nurse 1 - General Ulcer Measurement Start: 06/09/24 09:17 Freq: Status: Active Protocol: Activity Type Activity Date Activity User E-sign Co-sign Detail Recorded Client Recorded Date Recorded By Document 06/09/24 09:24 GM [id number] 06/09/24 09:26 GM Document 06/17/24 11:58 RB [id number] 06/17/24 12:04 RB Document 06/23/24 09:35 KW [id number] 06/23/24 09:42 KW Document 06/30/24 09:35 DL [id number] 06/30/24 09:40 DL 06/09/24 06/17/24 06/23/24 09:24 11:58 09:35 Wound Center Nurse 1 #8 L Tenorio post-op -Combined with other wound No -Current Size (cm) - Length 1.1 2 -Current Size (cm) - Width 0.8 1.3 -Current Size (cm) - Depth 0.7 0.5 -Total Square Cm 0.88 2.6 -Date of Last Picture (Recall this 06/09/24 field) -Photo Taken Yes -Epithelialization Small 1-33% -Tunneling No No -Undermining/Tunneling No No -Circular Undermining No No -Exudate Amt Medium Large Large -Exudate Type Yellow/Green Serosanguineous Serosanguineous -Wound Margin Distinct, Distinct, Distinct, Outline Outline Outline Attached Attached Attached -Granulation Amt Small (1-33%) Large (67-100%) Large (67-100%) -Granulation Quality Pale,[place],Red [place],Red -Slough/Fibrin No -Necrosis Amt None Present (0 None Present (0 %) %) -Structure Exposed N/A -Texture (Mima-wound Skin Appearance) Assessed Assessed Assessed -Moisture (Mima-wound Skin Appearance) Assessed Assessed Assessed, Maceration -Color (Mima-wound Skin Appearance) Assessed Assessed Assessed, Erythema -Temperature (Mima-wound Skin No Abnormality No Abnormality No Abnormality Appearance) (Pt Warm) (Pt Warm) (Pt Warm) -Tenderness on Palpation (Mima-wound No No No Skin Appearance) -Ulcer Cleansing Rinsed/ Wound Cleanser Irrigated with Saline -Foul Odor after Cleansing No No No -Anesthetic Used 5% Lidocaine Gel -Wound Comment(s) incision well sutures intact approximated with atb beads and sutures intact Antibiotic bead left in place after NPT vac foam removed Lower Limb Edema Present No Left Calf (cm) 29.2 Left Ankle (cm) 19.5 06/30/24 09:35 Wound Center Nurse 1 #8 L Tenorio post-op -Combined with other wound -Current Size (cm) - Length 2.2 -Current Size (cm) - Width 1.8 -Current Size (cm) - Depth 2.2 -Total Square Cm 3.96 -Date of Last Picture (Recall this 06/30/24 field) -Photo Taken -Epithelialization -Tunneling -Undermining/Tunneling -Circular Undermining -Exudate Amt Large -Exudate Type Serosanguineous -Wound Margin Distinct, Outline Attached -Granulation Amt -Granulation Quality -Slough/Fibrin -Necrosis Amt -Structure Exposed -Texture (Mima-wound Skin Appearance) Assessed -Moisture (Mima-wound Skin Appearance) Assessed, Maceration -Color (Mima-wound Skin Appearance) Assessed, Erythema -Temperature (Mima-wound Skin No Abnormality Appearance) (Pt Warm) -Tenderness on Palpation (Mima-wound No Skin Appearance) -Ulcer Cleansing Soap and Water -Foul Odor after Cleansing No -Anesthetic Used -Wound Comment(s) sutures intact, ATB beads in wound bed Lower Limb Edema Present Left Calf (cm) 28.5 Left Ankle (cm) 18.8 - Nurse 2 - General Ulcer CM Notes Start: 06/09/24 09:17 Freq: Status: Active Protocol: Activity Type Activity Date Activity User E-sign Co-sign Detail Recorded Client Recorded Date Recorded By Document 06/09/24 09:48 TENZIN [id number] 06/09/24 09:50 JF Document 06/23/24 10:05 TENZIN [id number] 06/23/24 10:09 JF Document 06/30/24 09:46 TENZIN [id number] 06/30/24 09:50 JF 06/09/24 06/23/24 06/30/24 09:48 10:05 09:46 Wound Center Nurse 2 #8 L Tenorio post-op -Time 09:48 -Correct Patient Yes No No -Correct Side, Site, Position Yes No No -Correct Procedure Yes No No -Procedure Performed Yes No No -Type of Procedure Debridement -Clinical Debridement Bone -Tissue Removed Non-viable tissue -Post Debridement (cm) - Length 1.5 -Post Debridement (cm) - Width 0.9 -Post Debridement (cm) - Depth 0.8 -Total Square (Post) (cm) 1.35 -Area of Debridement (cm) - Length 1.5 -Area of Debridement (cm) - Width 0.9 -Total Square (Area) (cm) 1.35 -Tunneling No -Undermining/Tunneling No -Circular Undermining No -Wound/Ulcer Outcome Not Healed Not Healed Not Healed -Ulcer Cleansing Rinsed/ Rinsed/ Irrigated with Irrigated with Saline Saline -Foul Odor after Cleansing No No -Bioengineered Tissue No No -Bleeding Controlled with Pressure Pressure -Treatment Response Procedure Procedure Tolerated Well Tolerated Well -Offloading No No -Debridement - Bone, 1st 20sq cm Yes Pain Scale: 0-10 Numeric Is Patient Pain Free? Yes Yes Yes WC - Nurse 3 - General Ulcer D/C NN Start: 06/09/24 09:17 Freq: Status: Active Protocol: Activity Type Activity Date Activity User E-sign Co-sign Detail Recorded Client Recorded Date Recorded By Document 06/09/24 10:20 KW [id number] 06/09/24 10:20 KW Document 06/17/24 11:24 RB [id number] 06/17/24 11:34 RB Document 06/17/24 11:58 RB [id number] 06/17/24 12:04 RB Edit Result 06/17/24 11:58 RB (1) [id number] 06/17/24 12:05 RB Document 06/23/24 10:30 DL [id number] 06/23/24 10:31 DL (1) Notes: => phenergan RX called to [facility] and also informed pt of order called in. Rx for elevated toliet seat as pt request 06/09/24 06/17/24 06/17/24 10:20 11:24 11:58 Wound Care Center Nurse 3 #8 L Tenorio post-op -Ulcer Cleansing betadine -Primary Dressing Applied Mepilex Border NonAdherent Contact Layer -Other Dressing dakins soaked ABD/ kerlix/ gauze undercasting / ino /splint/ ino on top to secure splint -Primary Dressing Covered/Secured with Dry Gauze Dry Gauze -Other Covering -Mepilex Border 1 Left -Compression Wrap -Tubular Bandage Single Layer -Size of Tubigrip Used Size C -Size C ($) 1 Treatment Response Procedure Tolerated Well Vital Signs Temperature (97.8 F-99.1 F) 96.3 F L Temperature Source Temporal Pulse Rate (60-100) 89 Pulse Location Monitor Respiratory Rate (12-18) 18 Respiratory rate source Observation Blood Pressure (90/60-120/80) 101/52 L Blood Pressure Mean (mm Hg) 68 Source Monitor Position Sitting Blood Pressure Location Right Arm Pain Scale: 0-10 Numeric Is Patient Pain Free? Yes No No RLE -Description Aching -Intensity 4 -Duration (hours) Acute -Pain Behavior Guarding -Pain Aggravating Factors ADL's -Alleviating Factors/Interventions Medication -Effectiveness of Alleviating Factor/ Minimally Intervention effective WC - Visit Discharge Discharge Condition Stable Ambulatory Status Wheelchair Transportation Private Auto Medication Reconcilliation completed & No provided to patient/care provider Clinical Summary of Care Provided Yes Notes: phenergan RX called to [facility] and also informed pt of order called in . Rx for elevated toliet seat as pt request Facility Type Orders Sent 06/23/24 10:30 Wound Care Center Nurse 3 #8 L Tenorio post-op -Ulcer Cleansing -Primary Dressing Applied -Other Dressing betadine -Primary Dressing Covered/Secured with Dry Gauze & Roll Gauze, Secured with Tape -Other Covering padding to heel -Mepilex Border Left -Compression Wrap Ino Wrap -Tubular Bandage -Size of Tubigrip Used -Size C ($) Treatment Response Procedure Tolerated Well Vital Signs Temperature (97.8 F-99.1 F) Temperature Source Pulse Rate (60-100) Pulse Location Respiratory Rate (12-18) Respiratory rate source Blood Pressure (90/60-120/80) Blood Pressure Mean (mm Hg) Source Position Blood Pressure Location Pain Scale: 0-10 Numeric Is Patient Pain Free? 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 All findings were discussed with the patient. All questions were answered to the patient's satisfaction. Patient is recovering well from her surgery. There is evidence of possible cellulitis but the erythema is blanchable. She will be placed on doxycycline 100 mg twice daily for the next 2 weeks. Patient will continue home health care dressing changes for the left heel that is stable with no sign of infection. Patient will have 1 additional refill on her pain medication. Patient will have a snap VAC applied to the full-thickness wound to the left leg with the antibiotic beads staying intact. Will plan for surgical intervention for removal of the beads and packing of allograft bone graft with bone marrow aspirate concentrate mixed with the bone chip packing in the next 2 to 4 weeks. Risk and benefit assessed with patient great detail. Follow-up at the wound care center with Dr. Estevez in 1 week. (2) Nicotine dependence, unspecified, uncomplicated: CODE(S): F17.200 - Nicotine dependence, unspecified, uncomplicated QUALIFIERS: Nicotine product type: cigarettes Qualified Code(s): F17.210 - Nicotine dependence, cigarettes, uncomplicated (3) Unstageable pressure ulcer: CODE(S): L89.95 - Pressure ulcer of unspecified site, unstageable
[2024-07-02 09:48] VITALS: BP 136/70; PULSE 96; RESP 18; TEMP 35.9
--- NOTE | 2024-07-02 10:27 | WC ---
PHOTO 06/30/24 RIGHT RODNEY
[2024-07-06 13:55] VITALS: BP 119/62; PULSE 82; RESP 16; TEMP 36.1
[2024-07-07 09:12] VITALS: BP 132/66; PULSE 76; RESP 18; TEMP 36.3
--- NOTE | 2024-07-07 10:09 | PCM.WC.PN ---
History of Present Illness Date of Service: 07/07/24 Chief Complaint: nonhealing ulcer left anterior leg. History of Wound: Surgery 12/03/22 - surgical preparation left anterior leg with incision and drainage and excisional debridement nonhealing infected MRSA ulcer and partial ostectomy tibia for osteomyelitis. Wound care - Silver dressings followed by Tubigrip. Operative Tissue and bone cultures positive for MRSA. Treated with IV Vancomycin. Infectious Diseases consulted. Pathology - pieces of bone with chronic inflammation and reactive changes, negative for acute osteomyelitis. Prealbumin from 12/04/22 was 14.5. Encouraged nutritional supplementation with protein to help with the healing process. HgbA1c from 07/19/22 was 5.7. HgbA1c needs to be less than 8 for elective surgeries. MRI left leg done on08/08/22 - Sinus tracts from the marrow of the mid to distal tibial diaphysis to the skin at the medial aspect. Marrow edema throughout the majority of the tibia. Findings concerning for osteomyelitis. Arterial study completed 11/04/22. Triphasic Doppler waveforms at ankle level bilaterally. Right MARI by dorsalis pedis = 1.15.? Left MARI by dorsalis pedis = 1.28. There is no evidence of significant arterial occlusive disease in the lower extremities bilaterally. Today she denies complaints of fever. Her appetite is ok. Subjective Subjective Ms. Calvert is a 63-year-old female presenting to clinic today for follow-up evaluation status post left leg surgery with application of application beads, and snap VAC application. Patient is doing well and has some discomfort to left lower extremity. She has followed up with the wound care center for canister replacement. She is wonder about moving forward with additional surgery. She can still continues to smoke but cut back. Denies trauma. Denies constitutional symptoms. Other pedal complaints at this time. Objective Data Objective Data Vital Signs: Vital Signs Temp Pulse Resp BP O2 Del Method 97.3 F L 76 18 132/66 H Room Air 07/07/24 09:12 07/07/24 09:12 07/07/24 09:12 07/07/24 09:12 07/07/24 09:12 Oxygen Delivery Method Room Air Physical Exam Narrative Vascular: DP and PT pulses are palpable. CFT is brisk. Skin temperature great is warm to warm from proximal ankle to the distal digits to left lower extremity. Nonpitting edema appreciated to left lower extremity. Blanchable erythema to periwound on the left leg. Neurological: Light touch intact. Patient does respond to painful stimuli. Dermatological: No evidence of surgical wound dehiscence but evidence of full-thickness wound with exposed antibiotic beads and bone. Wound measures 2.4 x 1.9 x 0.8 cm. No malodor. Positive probe to bone. Excisional debridement down to including subcutaneous tissue, fascia, muscle and bone with a number 3 mm dermal curette without incident. Predebridement measurement is 2.2 x 1.7 x 0.6 cm. Postdebridement measurement is 2.4 x 1.9 x 0.8 cm. Musculoskeletal: No pain on palpation of full-thickness ulceration to left tibia. No pain with calf compression. Debridement Note Debridement Note Debridement Free Text: Excisional debridement down to including subcutaneous tissue, fascia, muscle and bone with a number 3 mm dermal curette without incident. Predebridement measurement is 2.2 x 1.7 x 0.6 cm. Postdebridement measurement is 2.4 x 1.9 x 0.8 cm. Post-Debridement Measurements and Additional Note: Post-Debridement Measurements/Treatment - Nurse 1 - General Ulcer Assessment Start: 06/09/24 09:17 Freq: Status: Active Protocol: ELENA Activity Type Activity Date Activity User E-sign Co-sign Detail Recorded Client Recorded Date Recorded By Document 06/09/24 09:24 GM [id number] 06/09/24 09:26 GM Document 06/17/24 11:24 RB [id number] 06/17/24 11:34 RB Document 06/17/24 11:58 RB [id number] 06/17/24 12:04 RB Document 06/23/24 09:35 KW [id number] 06/23/24 09:42 KW Document 06/30/24 09:35 DL [id number] 06/30/24 09:40 DL Document 07/02/24 09:48 RB [id number] 07/02/24 09:50 RB Document 07/06/24 13:55 KW [id number] 07/06/24 14:00 KW Document 07/07/24 09:12 KW [id number] 07/07/24 09:16 KW 06/09/24 06/17/24 06/17/24 09:24 11:24 11:58 - Today's Visit Information Type of service Follow-up Visit Nurse-only Nurse-only (Physician/COVERING MACHINE OPERATOR HELPER Visit Visit ) Arrival Mode Ambulatory Wheelchair Wheelchair Transfer Assistance None Manual Manual Patient Identification Verified (Name & Yes Yes Yes ) Patient Requires Transmission-Based No No Precautions Vital Signs Temperature (97.8 F-99.1 F) 98.1 F 96.3 F L Temperature Source Temporal Temporal Pulse Rate (60-100) 80 89 Pulse Location Monitor Monitor Respiratory Rate (12-18) 18 18 Respiratory rate source Observation Observation Oxygen Delivery Method Room Air Blood Pressure (90/60-120/80) 109/66 101/52 L Blood Pressure Mean (mm Hg) 80 68 Source Monitor Monitor Position Sitting Sitting Blood Pressure Location Left Arm Right Arm History Since Last Visit- (Skip if this is Patient's initial visit) Have you changed medications since your No No last visit? Any new allergies or adverse reactions No No Had a fall/change in ADL's that may No No increase risk of falls Signs or symptoms of abuse and/or No No neglect since last visit Have you been in the hospital since your No Yes last visit? Has dressing in place as prescribed Yes Yes Has compression in place as prescribed Yes Yes Has offloadiing in place as prescribed N/A No Experienced any changes in pain level or No No management Left Footwear Regular Shoe Right Footwear Regular Shoe Other Footwear (Comment) Pain Scale: 0-10 Numeric Is Patient Pain Free? Yes No No RLE -Description Aching -Intensity 4 -Duration (hours) Acute -Pain Behavior Guarding -Pain Aggravating Factors ADL's -Alleviating Factors/Interventions Medication -Effectiveness of Alleviating Factor/ Minimally Intervention effective 06/23/24 06/30/24 07/02/24 09:35 09:35 09:[address] [facility] Today's Visit Information Type of service Follow-up Visit Follow-up Visit Nurse-only (Physician/COVERING MACHINE OPERATOR HELPER (Physician/COVERING MACHINE OPERATOR HELPER Visit ) ) Arrival Mode Wheelchair Wheelchair Wheelchair Transfer Assistance Manual Patient Identification Verified (Name & Yes Yes No ) Patient Requires Transmission-Based No Precautions Vital Signs Temperature (97.8 F-99.1 F) 97.1 F L 96.7 F L 96.7 F L Temperature Source Temporal Temporal Temporal Pulse Rate (60-100) 88 100 96 Pulse Location Monitor Monitor Monitor Respiratory Rate (12-18) 18 18 18 Respiratory rate source Observation Observation Observation Oxygen Delivery Method Room Air Room Air Blood Pressure (90/60-120/80) 116/63 137/72 H 136/70 H Blood Pressure Mean (mm Hg) 80 93 92 Source Monitor Monitor Monitor Position Semi-Fowlers Semi-Fowlers Sitting Blood Pressure Location Left Arm Left Arm Left Arm History Since Last Visit- (Skip if this is Patient's initial visit) Have you changed medications since your No No last visit? Any new allergies or adverse reactions No No Had a fall/change in ADL's that may No No increase risk of falls Signs or symptoms of abuse and/or No No neglect since last visit Have you been in the hospital since your No No last visit? Has dressing in place as prescribed Yes Yes Has compression in place as prescribed Yes Yes Has offloadiing in place as prescribed Yes Yes Experienced any changes in pain level or No No management Left Footwear Multipodus Slipper Splint/Boot Right Footwear Regular Shoe Regular Shoe Pain Scale: 0-10 Numeric Is Patient Pain Free? Yes Yes Yes RLE -Description -Intensity -Duration (hours) -Pain Behavior -Pain Aggravating Factors -Alleviating Factors/Interventions -Effectiveness of Alleviating Factor/ Intervention 07/06/24 07/07/24 13:55 09:12 WC - Today's Visit Information Type of service Nurse-only Follow-up Visit Visit (Physician/COVERING MACHINE OPERATOR HELPER ) Arrival Mode Wheelchair Wheelchair Transfer Assistance None Patient Identification Verified (Name & Yes Yes ) Patient Requires Transmission-Based Precautions Vital Signs Temperature (97.8 F-99.1 F) 97.0 F L 97.3 F L Temperature Source Temporal Temporal Pulse Rate (60-100) 82 76 Pulse Location Monitor Monitor Respiratory Rate (12-18) 16 18 Respiratory rate source Observation Observation Oxygen Delivery Method Room Air Room Air Blood Pressure (90/60-120/80) 119/62 132/66 H Blood Pressure Mean (mm Hg) 81 88 Source Monitor Monitor Position Sitting Sitting Blood Pressure Location Left Arm Right Arm History Since Last Visit- (Skip if this is Patient's initial visit) Have you changed medications since your No No last visit? Any new allergies or adverse reactions No No Had a fall/change in ADL's that may No increase risk of falls Signs or symptoms of abuse and/or No No neglect since last visit Have you been in the hospital since your No No last visit? Has dressing in place as prescribed Yes Yes Has compression in place as prescribed Yes Yes Has offloadiing in place as prescribed Yes Yes Experienced any changes in pain level or No No management Left Footwear Slipper Right Footwear Slipper Pain Scale: 0-10 Numeric Is Patient Pain Free? Yes Yes RLE -Description -Intensity -Duration (hours) -Pain Behavior -Pain Aggravating Factors -Alleviating Factors/Interventions -Effectiveness of Alleviating Factor/ Intervention WC - Nurse 1 - General Ulcer Measurement Start: 06/09/24 09:17 Freq: Status: Active Protocol: Activity Type Activity Date Activity User E-sign Co-sign Detail Recorded Client Recorded Date Recorded By Document 06/09/24 09:24 GM [id number] 06/09/24 09:26 GM Document 06/17/24 11:58 RB [id number] 06/17/24 12:04 RB Document 06/23/24 09:35 KW [id number] 06/23/24 09:42 KW Document 06/30/24 09:35 DL [id number] 06/30/24 09:40 DL Document 07/07/24 09:12 KW [id number] 07/07/24 09:16 KW 06/09/24 06/17/24 06/23/24 09:24 11:58 09:35 Wound Center Nurse 1 #8 L Tenorio post-op -Combined with other wound No -Current Size (cm) - Length 1.1 2 -Current Size (cm) - Width 0.8 1.3 -Current Size (cm) - Depth 0.7 0.5 -Total Square Cm 0.88 2.6 -Date of Last Picture (Recall this 06/09/24 field) -Photo Taken Yes -Epithelialization Small 1-33% -Tunneling No No -Undermining/Tunneling No No -Circular Undermining No No -Exudate Amt Medium Large Large -Exudate Type Yellow/Green Serosanguineous Serosanguineous -Wound Margin Distinct, Distinct, Distinct, Outline Outline Outline Attached Attached Attached -Granulation Amt Small (1-33%) Large (67-100%) Large (67-100%) -Granulation Quality Pale,[place],Red [place],Red -Slough/Fibrin No -Necrosis Amt None Present (0 None Present (0 %) %) -Structure Exposed N/A -Texture (Mima-wound Skin Appearance) Assessed Assessed Assessed -Moisture (Mima-wound Skin Appearance) Assessed Assessed Assessed, Maceration -Color (Mima-wound Skin Appearance) Assessed Assessed Assessed, Erythema -Temperature (Mima-wound Skin No Abnormality No Abnormality No Abnormality Appearance) (Pt Warm) (Pt Warm) (Pt Warm) -Tenderness on Palpation (Mima-wound No No No Skin Appearance) -Ulcer Cleansing Rinsed/ Wound Cleanser Irrigated with Saline -Foul Odor after Cleansing No No No -Anesthetic Used 5% Lidocaine Gel -Wound Comment(s) incision well sutures intact approximated with atb beads and sutures intact Antibiotic bead left in place after NPT vac foam removed Lower Limb Edema Present No Left Calf (cm) 29.2 Left Ankle (cm) 19.5 06/30/24 07/07/24 09:35 09:12 Wound Center Nurse 1 #8 L Tenorio post-op -Combined with other wound -Current Size (cm) - Length 2.2 2.0 -Current Size (cm) - Width 1.8 1.7 -Current Size (cm) - Depth 2.2 0.9 -Total Square Cm 3.96 3.40 -Date of Last Picture (Recall this 06/30/24 07/07/24 field) -Photo Taken Yes -Epithelialization Small 1-33% -Tunneling No -Undermining/Tunneling No -Circular Undermining No -Exudate Amt Large Large -Exudate Type Serosanguineous Yellow/Green -Wound Margin Distinct, Outline Attached -Granulation Amt Small (1-33%) -Granulation Quality [place] -Slough/Fibrin Yes -Necrosis Amt -Structure Exposed -Texture (Mima-wound Skin Appearance) Assessed Assessed -Moisture (Mima-wound Skin Appearance) Assessed, Assessed, Maceration Maceration -Color (Mima-wound Skin Appearance) Assessed, Assessed Erythema -Temperature (Mima-wound Skin No Abnormality No Abnormality Appearance) (Pt Warm) (Pt Warm) -Tenderness on Palpation (Mima-wound No Skin Appearance) -Ulcer Cleansing Soap and Water Soap and Water -Foul Odor after Cleansing No No -Anesthetic Used 5% Lidocaine Gel -Wound Comment(s) sutures intact, ATB beads in wound bed Lower Limb Edema Present Left Calf (cm) 28.5 Left Ankle (cm) 18.8 WC - Nurse 2 - General Ulcer CM Notes Start: 06/09/24 09:17 Freq: Status: Active Protocol: Activity Type Activity Date Activity User E-sign Co-sign Detail Recorded Client Recorded Date Recorded By Document 06/09/24 09:48 [id number] 06/09/24 09:50 JF Document 06/23/24 10:05 [id number] 06/23/24 10:09 JF Document 06/30/24 09:46 [id number] 06/30/24 09:50 JF Document 07/07/24 09:26 [id number] 07/07/24 09:31 JF 06/09/24 06/23/24 06/30/24 09:48 10:05 09:46 Wound Center Nurse 2 #8 L Tenorio post-op -Time 09:48 -Correct Patient Yes No No -Correct Side, Site, Position Yes No No -Correct Procedure Yes No No -Procedure Performed Yes No No -Type of Procedure Debridement -Clinical Debridement Bone -Tissue Removed Non-viable tissue -Post Debridement (cm) - Length 1.5 -Post Debridement (cm) - Width 0.9 -Post Debridement (cm) - Depth 0.8 -Total Square (Post) (cm) 1.35 -Area of Debridement (cm) - Length 1.5 -Area of Debridement (cm) - Width 0.9 -Total Square (Area) (cm) 1.35 -Tunneling No -Undermining/Tunneling No -Circular Undermining No -Wound/Ulcer Outcome Not Healed Not Healed Not Healed -Ulcer Cleansing Rinsed/ Rinsed/ Irrigated with Irrigated with Saline Saline -Foul Odor after Cleansing No No -Bioengineered Tissue No No -Bleeding Controlled with Pressure Pressure -Treatment Response Procedure Procedure Tolerated Well Tolerated Well -Offloading No No -Debridement - Bone, 1st 20sq cm Yes Pain Scale: 0-10 Numeric Is Patient Pain Free? Yes Yes Yes 07/07/24 09:26 Wound Center Nurse 2 #8 L Tenorio post-op -Time 09:26 -Correct Patient Yes -Correct Side, Site, Position Yes -Correct Procedure Yes -Procedure Performed Yes -Type of Procedure Debridement -Clinical Debridement Bone -Tissue Removed Non-viable tissue -Post Debridement (cm) - Length 2.4 -Post Debridement (cm) - Width 1.9 -Post Debridement (cm) - Depth 0.8 -Total Square (Post) (cm) 4.56 -Area of Debridement (cm) - Length 2.4 -Area of Debridement (cm) - Width 1.9 -Total Square (Area) (cm) 4.56 -Tunneling No -Undermining/Tunneling No -Circular Undermining No -Wound/Ulcer Outcome Not Healed -Ulcer Cleansing Rinsed/ Irrigated with Saline -Foul Odor after Cleansing No -Bioengineered Tissue No -Bleeding Controlled with Pressure -Treatment Response Procedure Tolerated Well -Offloading No -Debridement - Bone, 1st 20sq cm Yes Pain Scale: 0-10 Numeric Is Patient Pain Free? Yes WC - Nurse 3 - General Ulcer D/C NN Start: 06/09/24 09:17 Freq: Status: Active Protocol: Activity Type Activity Date Activity User E-sign Co-sign Detail Recorded Client Recorded Date Recorded By Document 06/09/24 10:20 KW [id number] 06/09/24 10:20 KW Document 06/17/24 11:24 RB [id number] 06/17/24 11:34 RB Document 06/17/24 11:58 RB [id number] 06/17/24 12:04 RB Edit Result 06/17/24 11:58 RB (1) [id number] 06/17/24 12:05 RB Document 06/23/24 10:30 DL [id number] 06/23/24 10:31 DL Document 06/30/24 10:08 BMF [id number] 06/30/24 10:12 BMF Document 07/02/24 09:48 RB [id number] 07/02/24 09:50 RB Document 07/06/24 13:55 KW [id number] 07/06/24 14:00 KW Document 07/07/24 09:40 KW [id number] 07/07/24 09:45 KW (1) Notes: => phenergan RX called to [facility] and also informed pt of order called in. Rx for elevated toliet seat as pt request 06/09/24 06/17/24 06/17/24 10:20 11:24 11:58 Wound Care Center Nurse 3 #8 L Tenorio post-op -Ulcer Cleansing betadine -Negative Pressure Wound Therapy -Setting (mmHg) -Negative Pressure is -Regranex (If Applicable) -Primary Dressing Applied Mepilex Border NonAdherent Contact Layer -Other Dressing dakins soaked ABD/ kerlix/ gauze undercasting / ino /splint/ ino on top to secure splint -Primary Dressing Covered/Secured with Dry Gauze Dry Gauze -Other Covering -NPWT Application Charge -Mepilex Border 1 -Wound Comment(s) Left -Compression Wrap -Tubular Bandage Single Layer -Size of Tubigrip Used Size C -Size C ($) 1 -Other Treatment Response Procedure Tolerated Well Vital Signs Temperature (97.8 F-99.1 F) 96.3 F L Temperature Source Temporal Pulse Rate (60-100) 89 Pulse Location Monitor Respiratory Rate (12-18) 18 Respiratory rate source Observation Oxygen Delivery Method Blood Pressure (90/60-120/80) 101/52 L Blood Pressure Mean (mm Hg) 68 Source Monitor Position Sitting Blood Pressure Location Right Arm Pain Scale: 0-10 Numeric Is Patient Pain Free? Yes No No RLE -Description Aching -Intensity 4 -Duration (hours) Acute -Pain Behavior Guarding -Pain Aggravating Factors ADL's -Alleviating Factors/Interventions Medication -Effectiveness of Alleviating Factor/ Minimally Intervention effective WC - Visit Discharge Discharge Condition Stable Ambulatory Status Wheelchair Transportation Private Auto Accompanied by Medication Reconcilliation completed & No provided to patient/care provider Clinical Summary of Care Provided Yes Notes: phenergan RX called to [facility] and also informed pt of order called in . Rx for elevated toliet seat as pt request Facility Type Orders Sent 06/23/24 06/30/24 07/02/24 10:30 10:08 09:48 Wound Care Center Nurse 3 #8 L Tenorio post-op -Ulcer Cleansing Wound Cleanser -Negative Pressure Wound Therapy Start Continue -Setting (mmHg) 125 125 -Negative Pressure is Continuous Continuous -Regranex (If Applicable) -Primary Dressing Applied NonAdherent Contact Layer -Other Dressing betadine -Primary Dressing Covered/Secured with Dry Gauze & Roll Gauze, Secured with Tape -Other Covering padding to heel -NPWT Application Charge NPWT </= 50 sq NPWT </= 50 sq cm (disp) ($) cm (disp) ($) -Mepilex Border -Wound Comment(s) snap applied abd pad under per cp rn tubing INO wrap betadine to l heel and nurses hat on heel and kerlix Left -Compression Wrap Ino Wrap Ino Wrap -Tubular Bandage -Size of Tubigrip Used -Size C ($) -Other applied per cp ino rn Treatment Response Procedure Procedure Procedure Tolerated Well Tolerated Well Tolerated Well Vital Signs Temperature (97.8 F-99.1 F) 96.7 F L Temperature Source Temporal Pulse Rate (60-100) 96 Pulse Location Monitor Respiratory Rate (12-18) 18 Respiratory rate source Observation Oxygen Delivery Method Blood Pressure (90/60-120/80) 136/70 H Blood Pressure Mean (mm Hg) 92 Source Monitor Position Sitting Blood Pressure Location Left Arm Pain Scale: 0-10 Numeric Is Patient Pain Free? Yes Yes Yes RLE -Description -Intensity -Duration (hours) -Pain Behavior -Pain Aggravating Factors -Alleviating Factors/Interventions -Effectiveness of Alleviating Factor/ Intervention WC - Visit Discharge Discharge Condition Stable Stable Stable Ambulatory Status Wheelchair Ambulatory Wheelchair Transportation Private Auto Private Auto Private Auto Accompanied by significant other Medication Reconcilliation completed & No provided to patient/care provider Clinical Summary of Care Provided Yes Notes: Facility Type Home Health Home Health Orders Sent Yes 07/06/24 07/07/24 13:55 09:40 Wound Care Center Nurse 3 #8 L Tenorio post-op -Ulcer Cleansing -Negative Pressure Wound Therapy Continue Continue -Setting (mmHg) 125 125 -Negative Pressure is Continuous Continuous -Regranex (If Applicable) Continue -Primary Dressing Applied -Other Dressing -Primary Dressing Covered/Secured with -Other Covering -NPWT Application Charge NPWT </= 50 sq NPWT & cm (disp) ($) Debridement (nc ) -Mepilex Border -Wound Comment(s) canister change Left -Compression Wrap Ino Wrap Ino Wrap -Tubular Bandage -Size of Tubigrip Used -Size C ($) -Other Treatment Response Vital Signs Temperature (97.8 F-99.1 F) 97.0 F L Temperature Source Temporal Pulse Rate (60-100) 82 Pulse Location Monitor Respiratory Rate (12-18) 16 Respiratory rate source Observation Oxygen Delivery Method Room Air Blood Pressure (90/60-120/80) 119/62 Blood Pressure Mean (mm Hg) 81 Source Monitor Position Sitting Blood Pressure Location Left Arm Pain Scale: 0-10 Numeric Is Patient Pain Free? 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 All findings were discussed with the patient. All questions were answered to the patient's satisfaction. Patient is continuing to take her antibiotics as written. She will continue to leave her dressing clean dry and intact and snap VAC to the left lower extremity. She will follow-up to wound care center for regular canister replacements. Will begin authorization for a [facility] negative pressure wound VAC to left lower extremity. We will begin authorization to the patient's insurance to return to the operating room to remove the antibiotic beads and apply bone marrow aspirate contrite with allograft bone as well as with amnion skin graft substitute to the left lower extremity. Excisional debridement down to including subcutaneous tissue, fascia, muscle and bone with a number 3 mm dermal curette without incident. Predebridement measurement is 2.2 x 1.7 x 0.6 cm. Postdebridement measurement is 2.4 x 1.9 x 0.8 cm. Follow-up at the wound care center with Dr. Estevez in 2 week. (2) Nicotine dependence, unspecified, uncomplicated: CODE(S): F17.200 - Nicotine dependence, unspecified, uncomplicated QUALIFIERS: Nicotine product type: cigarettes Qualified Code(s): F17.210 - Nicotine dependence, cigarettes, uncomplicated (3) Unstageable pressure ulcer: CODE(S): L89.95 - Pressure ulcer of unspecified site, unstageable
--- NOTE | 2024-07-08 09:51 | WC ---
PHOTO 07/07/24 LEFT RODNEY
== END 2024-07-08 23:59 | disposition home or self-care (01) ==
LOC: WC 09:30
PROVIDERS: Referring Provider Nurse Practitioner Family; Visit Provider Podiatrist Foot & Ankle Surgery
DX: L97.824 Non-pressure chronic ulcer of other part of left lower leg with necrosis of bone (principal); L89.95 Pressure ulcer of unspecified site, unstageable; F17.210 Nicotine dependence, cigarettes, uncomplicated; Z86.14 Personal history of Methicillin resistant Staphylococcus aureus infection
CPT/HCPCS: 11044; 97607; 99212; 99213; 99214; G0463

== ENCOUNTER 2024-07-20 11:42 | Outpatient (RCR) | payer MEDICAID, SELFPAY | END 2024-08-07 23:59 | LOC: NS 11:42 | PROVIDERS: Referring Provider Nurse Practitioner Family; Visit Provider Nurse Practitioner Family | DX: Z71.3 Dietary counseling and surveillance (principal); E46 Unspecified protein-calorie malnutrition; E11.9 Type 2 diabetes mellitus without complications | CPT/HCPCS: 97803 ==

== ENCOUNTER 2024-08-02 12:45 | Day surgery (SDC) | payer MEDICAID, SELFPAY ==
[2024-08-02] VITALS (9 sets, daily range): BP systolic 119–131; BP diastolic 57–63; PULSE 62–84; RESP 16–18; TEMP 36.1–36.8; O2SAT 93–99; BMI 19.8
[2024-08-02] MEDS: Lactated Ringers 1,000 ML 15 ML IV (13:33)
--- NOTE | 2024-08-02 13:55 | PCM.PRE.AN2 ---
ASA Classification* ASA Classification ASA Classification: 3 Assessment & Plan Anesthesia* Anesthesia Assessment Anesthesia Assessment: Discussed sedation and/or anesthesia options, risks, benefits, and alternatives with patient/parents/legal guardian/POA. Questions invited. The patient/parents/legal guardian/POA seems to understand and agrees to proceed with anesthesia plan. Reviewed the physical assessment, medical history, allergy history and patient home medications list prior to surgery/procedure/anesthetic and documented any changes. Performed airway and anesthesia risk assessments. Anesthesia Type Anesthesia Type: General and Block Anesthesia Focused Assessment* Temperature: 97.3 F Pulse Rate: 62 Blood Pressure: 125/57 Respiratory Rate: 16 Pulse Ox: 99 Airway Assessment Mouth opens: >3 cm Mallampati Score: II Focused Labs Anesthesia Preop lab: CBC WBC 6.0 K/mm3 (4.4-11.0) 03/22/24 10:52 RBC 4.09 M/mm3 (4.2-5.4) L 03/22/24 10:52 Hgb 12.1 g/dL (12.0-15.0) 03/22/24 10:52 Hct 37.2 % (37-47) 03/22/24 10:52 Plt Count 183 K/mm3 (150-450) 03/22/24 10:52 CHEMISTRY Potassium 4.3 mmol/L (3.5-5.1) 03/22/24 10:52 Sodium 134 mmol/L (136-145) L 03/22/24 10:52 BUN 24 mg/dL (7-18) H 03/22/24 10:52 Creatinine 0.56 mg/dL (0.55-1.02) 03/22/24 10:52 Glucose 97 mg/dL (74-106) 03/22/24 10:52 POC Glucose 107 mg/dL (74-106) H 06/16/24 06:32 COAG PT 12.9 SECONDS (11.7-14.9) 06/12/20 11:58 Pre-Assessment Diagnosis/Proposed Procedure Planned Operative Procedure(s): (L) Bone marrow aspirate concentrate harvest, removal of antibiotic beads, Anterior Tibialis Muscle Flap with Application of a Split Thickness Autograft and Application of Posterior Splint Anesthesia History Anesthesia History - nurse paralegal: Anesthesia History - nurse paralegal Hx Hospitalization No 07/30/24 10:28 Any Problems With Anesthesia Yes: SLOW TO AWAKEN 07/30/24 10:28 Cholinesterase deficiency No 07/30/24 10:28 You/Your Family Experience No 07/30/24 10:28 fever (hyperthermia) with Relationship Recent Exposure to Contagious No 08/02/24 13:11 Disease Does patient have nerve No 07/30/24 10:28 stimulator Patient instructed to have device shut off --Does patient have Pacemaker No 08/02/24 13:11 or ICD? When Was Last Pacemaker Check QUESTION #4 FULL TEXT: You/Your Family Experience fever (hyperthermia) with Anesthesia Last Oral Intake Last Oral intake: Last Oral Intake NPO since 21:00 08/02/24 13:11 Meds taken in AM with sips of Yes 08/02/24 13:11 water? Meds patient instructed to VOLTAREN, SERTRALINE, 08/02/24 13:11 take am of surgery DILANTIN, OMEPRAZOLE, ATIVAN , INHALERS CHECK WITH DR WHEN TO STOP ASA PONV PONV - nurse paralegal: PONV - nurse paralegal Female Yes 07/30/24 10:28 HX of Motion Sickness No 07/30/24 10:28 HX of N/V After Surgery No 07/30/24 10:28 Non-Smoker Yes 07/30/24 10:28 Duration of Surgery greater Yes 07/30/24 10:28 than 60 minutes Number of Risk Factors 3 07/30/24 10:28 PONV Score Moderate Risk 07/30/24 10:28 Height & Weight Height & Weight: Anesthesia: Height & Weight Height 4 ft 11 in 08/02/24 13:11 Weight: 44.452 kg 08/02/24 13:11 Body Mass Index (BMI) 19.8 08/02/24 13:11 Respiratory Assessment Respiratory Assessment - nurse paralegal: Respiratory Tract Infection Hx - nurse paralegal Hx Respiratory Tract Infection No 07/30/24 10:28 STOP Sleep Apnea STOP Sleep Apnea - nurse paralegal: STOP Sleep Apnea - nurse paralegal Hx Hypertension No 07/30/24 10:28 Hx Sleep Apnea No 07/30/24 10:28 CPAP No 07/30/24 10:28 BIPAP No 07/30/24 10:28 Do you snore loudly (louder No 07/30/24 10:28 than talking or can be heard Do you often feel tired/ No 07/30/24 10:28 fatigued/ sleepy during daytime? Has anyone observed you stop No 07/30/24 10:28 breathing during sleep? STOP Results Negative 07/30/24 10:28 QUESTION #5 FULL TEXT : Do you snore loudly (louder than talking or can be heard through closed doors)? 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 Specify any problems Hx of Preganancy in last 3 N/A 07/30/24 10:28 Months Nurse Filling Out Transfusion NBUCHER 07/30/24 10:28 & Questions: Date: 07/30/24 07/30/24 10:28 Time: 10:30 07/30/24 10:28 Patient unable to answer at this time (ie. confused, unrespo /Reproduction History /Reproductive History - nurse paralegal: /Reproductive Hx- nurse paralegal Hx Now Gestational Age (in weeks): EDC: Hx Hx Para Hx Section SAB No 07/30/24 10:28 Active Medications Active Medications: Current Medications Generic Name Dose Route Start Last Admin Trade Name Freq PRN Reason Stop Dose Admin Clindamycin Phosphate 900 mg in 50 mls @ 75 mls/hr 08/02/24 14:30 Cleocin IV 08/02/24 15:09 PREOP ONE Lactated Ringer's 1,000 mls @ 15 mls/hr 08/02/24 13:30 08/02/24 13:33 IV 08/05/24 08:09 15 mls/hr .Q48H DUC Administration Protocol PFSH Medical History Alcohol use Rheumatoid arthritis Back pain Diabetes Shortness of breath on exertion Hoarseness Open wound History of pain when walking DM type 2, goal HbA1c < 7% Loss of hearing Wears dentures Anemia High cholesterol Epilepsy Gastric reflux Emphysema, unspecified MRSA (methicillin resistant Staphylococcus aureus) infection Sequelae of open wound of left lower extremity DM type 2, goal HbA1c < 7% FH: bilateral hip replacements Depression Anxiety Smoker Myocardial infarct Osteomyelitis Home Medications ?Medication ?Instructions ?Recorded ?Last Taken ?Type alendronate 70 mg tablet 70 mg PO SA BONES 12/22/16 06/15/24 History ipratropium 20 mcg-albuterol 100 1 puff inhalation Q6H SOB 12/22/16 06/15/24 History mcg/actuation mist for inhalation (Combivent Respimat) phenytoin sodium extended 100 mg 100 mg PO BID@0900,1700 SEIZURES 12/22/16 08/02/24 05:30 History capsule ascorbic acid (vitamin C) 500 mg 500 mg PO DAILY SUPPLEMENT 06/12/20 06/15/24 History tablet benzonatate 100 mg capsule 100 mg PO DAILY PRN Cough 06/12/20 Unknown History cyclobenzaprine 10 mg tablet 10 mg PO BID PRN PRN BACK 06/12/20 06/13/24 History diclofenac sodium 75 mg 75 mg PO BID PRN PRN BACK PAIN 06/12/20 Unknown History tablet,delayed release folic acid 1 mg tablet 1 mg PO BID SUPPLEMENT 06/12/20 06/15/24 History loratadine 10 mg tablet 10 mg PO DAILY ALLERGIES 06/12/20 08/02/24 05:30 History pravastatin 20 mg tablet 20 mg PO QHS CHOLESTEROL 06/12/20 06/15/24 History cholecalciferol (vitamin D3) 25 5,000 unit PO DAILY 06/15/20 06/15/24 Rx mcg (1,000 unit) tablet omeprazole 40 mg capsule,delayed 40 mg PO DAILY #30 caps 07/08/22 08/02/24 05:30 Rx release docusate sodium 100 mg capsule 100 mg PO BID #60 caps 05/02/23 08/02/24 05:30 Rx (Colace) nitroglycerin 0.4 mg sublingual 0.4 mg sublingual Q5M 08/18/23 Unknown History tablet (Nitrostat) sertraline 50 mg tablet (Zoloft) 75 mg PO BID 08/18/23 06/16/24 History fluticasone fur. 200 mcg-umeclid 1 ea inhalation DAILY 04/22/24 06/16/24 History 62.5 mcg-vilant 25 mcg inhalat.powder (Trelegy Ellipta) lorazepam 0.5 mg tablet (Ativan) 0.5 mg PO TID PRN anxiety 04/22/24 08/02/24 05:30 History ascorbic acid (vitamin C) 1,000 mg 1 g PO DAILY 90 days #90 tabs 06/16/24 Unknown Rx tablet (Vitamin C) aspirin 81 mg tablet,delayed 81 mg PO DAILY 30 days #30 tabs 06/16/24 07/31/24 Rx release calcium 500 mg (as 1 tab PO DAILY 90 days #90 tabs 06/16/24 Unknown Rx carbonate)-vitamin D3 15 mcg (600 unit) tablet (Os-Ángel 500 + D3) Allergy/AdvReac Type Severity Reaction Status Date / Time Penicillins Allergy Severe Shortness Verified 07/30/24 10:21 of breath sulfamethoxazole (From Allergy Mild Rash Verified 07/30/24 10:21 Bactrim) trimethoprim (From Bactrim) Allergy Mild Rash Verified 07/30/24 10:21 amoxicillin Allergy Hives Verified 07/30/24 10:21 aspirin AdvReac it chokes Verified 07/30/24 10:21 me. Family History Mother Arthritis Surgical History History of biopsy (05/06/24) History of incision and drainage Hx of right cataract extraction Hx of left cataract extraction H/O: hysterectomy History of cardiac catheterization H/O repair of right rotator cuff History of cholecystectomy Social History Smoking Status: Current every day smoker tobacco type: cigarettes Review of Systems (Anesthesia) ROS Narrative System reviewed and no additional complaints, except as documented.
[2024-08-02] MEDS: Ipratropium/Albuterol Sulfate 3 ML AMPUL.NEB INHALATION (14:02)
--- NOTE | 2024-08-02 14:33 | PCM.OPRPT ---
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 Bone marrow aspirate concentrate harvest, left lower extremity 2. Removal of antibiotic beads, left lower extremity 3. Tibialis anterior muscle flap, left lower extremity 4. Application of split thickness autograft, left lower extremity 5. Application of negative pressure wound VAC, left lower extremity Surgeon: Stephan Estevez Date of Procedure: 08/02/24 Procedure Start Time: 15:30 Procedure Stop Time: 17:24 Pre-Operative Diagnosis: 1. Full-thickness ulceration with exposed bone, left lower extremity 2. Pain, left lower extremity Post-Operative Diagnosis: Same as preoperative diagnosis Select all DRAINS/GRAFTS/IMPLANTS that apply: Graft Graft details: 2000 mg Axiofil, split thickness autograft, bone marrow aspirate concentrate, PRP and Tissue Tissue details: Anterior tibialis muscle flap Type of Anesthesia: Block,Regional, General and Local Special Medications: Per anesthesia Estimated Blood Loss: 50 cc Fluids Replaced: Per anesthesia Specimen collected: No Description of surgery: Indications For Operation: Ms. Calvert is a 63-year-old female who was admitted to [facility] for left lower extremity surgery consisting of chronic ulceration with exposed bone for the past 9 years. Patient is well-known to my service at the wound care center and has had multiple excisional debridements down to bone with negative pressure wound VAC application. Patient did have surgery on 06/16/2024 consisting of partial excision of tibia, application of intramedullary antibiotic beads and application of negative pressure wound VAC. Patient was seen at the wound care center for surgical consultation which planned out all risk and benefits of for the patient. Patient is a heavy smoker and I educated the patient that it is very important after we do the muscle flap and split-thickness application and she is to refrain from smoking and to use nicotine patches to control her smoking habits. She is understanding of this but states that it may be very difficult for her to quit but she understands the risks if she does smoke. Due to chronicity of the wound it has been deemed necessary at this time to perform the above procedure to help heal the patient's chronic wound of the left lower extremity for 9 years. The nature of the problem, anticipated procedures, postop recovery/convalences and risk/complications include but not limited to infection, wound healing complications, digital amputation, hypertrophic scarring, numbness, tingling, chronic pain, CRPS, over and under correction, recurrence of deformity, DVT and or PE and the need for further surgery have been discussed in great detail with the patient. All questions have been answered to the patient's satisfaction. There are no guarantees given as to the outcome of the procedure. Description of Procedure: Under mild sedation, the patient was brought into the operating room and placed on the operating table in supine position. Once the patient was under general anesthesia with laryngeal mask airway, the left lower extremity was blocked using approximately 10 cc 0.5% Marcaine plain to the saphenous nerve of the left lower extremity, 12 cc of 1% lidocaine plain with epinephrine was administered to the thigh area of the left lower extremity at the level of the split-thickness autograft harvest site. Patient will be receiving a popliteal block prior to the procedure from anesthesia, please see anesthesia notes for further detail. No tourniquet was used for this case. Next, the left lower extremity was prepped and draped in normal aseptic manner. Next, a timeout was then undertaken verifying the correct patient, extremity, visibility of preoperative markings, availability of the equipment. Procedure #1: Bone marrow aspirate concentrate harvest, left lower extremity (CPT code: 94704) Next, attention was directed to the left lower extremity calcaneal bone. Using a Jamshidi needle, the lateral portion of the calcaneus was penetrated using a mallet. Hull of bone marrow aspirate concentrate was obtained harvesting approximately 60 cc which was passed to the back table to be spun off for bone marrow aspirate concentrate and PRP with the rep in the room. The small stab incision was flushed with copious normal saline and closed using 3-0 nylon in simple interrupted suture technique. Procedure #2: Removal of antibiotic beads, left lower extremity (CPT code: 05366) Next, attention was directed to the full-thickness wound to left lower extremity. Using a curette all the remaining antibiotic beads were removed without incident. The full-thickness wound was flushed with copious normal saline. The tissue showed to be granular nature with no concern of infection. Procedure #3: Tibialis anterior muscle flap, left lower extremity (CPT code: 71065) Next, attention was directed to the anterior aspect of the left lower extremity. Using a sterile skin marker a longitudinal incision was marked out 1 cm lateral to the anterior tibial crest. Using a #15 blade a full-thickness incision down to subcutaneous tissue was obtained. Continued blunt dissection was carried down to level of the fascia. Using a freer elevator, the fascia was penetrated to allow a hard surface to excise the fascia exposing the anterior tibialis muscle belly and tendon using a #15 blade. Meticulous dissection was carried down and around the muscle belly and tendon. A Sanjay section of the tendon and muscle belly was harvested to allow for the muscle flap to be adhered safely without any constriction along the course of the incision and across the full-thickness wound to the anterior aspect of the left leg. The incision of the muscle flap harvest was flushed with copious normal saline. The ankle of the left lower extremity was put through range of motion and showed evidence of an intact tendon along its normal position across the lateral face of the tibia with evidence of contracture of the muscle belly and tendon after harvest. The fascial layer was closed using 3-0 Monocryl and running locking suture technique. The subcutaneous layer was reapproximated closed using 3-0 Monocryl and running suture technique. The skin was reapproximated and closed using 4-0 nylon in horizontal mattress suture technique. Next, the muscle defect was packed with a combination of 2000 mg of Axiofill mixed into a slurry with bone marrow aspirate concentrate and PRP. The anterior tibialis muscle flap was sutured into place using 4-0 Monocryl. The full-thickness ulceration was undermined in the muscle flap was reapproximated underneath the undermined tissue to the full-thickness wound on the anterior aspect of the left leg. Range of motion of the left ankle was obtained and there showed no evidence of where the harvested tendon would constrict or cause issues with the splint thickness skin graft application. Procedure #4: Application of split thickness autograft, left lower extremity (CPT code: 40962) Next, mineral oil was applied to the anterior surface of the left lower extremity thigh split-thickness skin graft harvest site. Next, using a dermatome which was 2 inches wide and set to a thickness of 0.016 inches thick, a tongue depressor was used to keep the skin tight and a harvest of approximately 3 cm x 5 cm was obtained. The split-thickness skin graft harvest was transferred to a 1.5-1 mesher sheet. The skin was meshed using a mesher without incident. The skin was transferred back to the anterior aspect of the muscle flap site and sutured in place with 4-0 Monocryl and running suture technique. Excess split-thickness skin graft was removed with pickup and Littler scissors. Next, the left lower extremity was wiped clean and patted dry. Topical thrombin was applied to the split-thickness skin graft harvest area then removed. The harvest area was dressed with Xeroform 4 x 4's and a large Tegaderm. Procedure #5: Application of negative pressure wound VAC, left lower extremity (CPT code: 17823) Again, the left lower extremities were cleaned and patted dry. Adaptic was placed over the incision and split-thickness skin graft and muscle flap. Black foam was applied to the split-thickness skin graft and held in place with the KCI clear tape. The wound VAC was applied and set to 75 mmHg and showed good suction. Procedure #6: Application of posterior splint, left lower extremity (CPT code: 19985) Next, the left lower extremity was dressed with 4 x 4's, dry sterile dressing and a double layer sugar-tong AO splint was applied at 90 degrees to the left lower extremity. The patient tolerated the procedure and anesthesia well and apparent satisfactory condition and was transported to the PACU for further monitoring prior to discharge home. Vital signs stable and vascular status intact to all digits bilateral. Post Operative Plan: Weightbearing: Patient is to be nonweightbearing to left lower extremity. Full weightbearing to the right lower extremity. Nonweightbearing will be with wheelchair. Antibiotics: 2 g Ancef through the IV DVT Prophylaxis: 81 mg aspirin Mariscal: None Dressing: Proximal left lower extremity dressing was Xeroform, 4 x 4's and Tegaderm. Distal left lower extremity dressing was Adaptic, negative pressure wound VAC set to 75 mmHg, double layer Sullivan sugar-tong splint at 90 degrees. Pain Medication: Percocet 5/325, Flexeril 10 mg Follow-up: Patient will follow-up at the wound care center on 08/04/2024. Please resent to the wound care center at your already scheduled appointment time. Surgical Findings: 1. Successful removal antibiotic beads to the left lower extremity. 2. Successful transfer of Sanjay section of anterior tibialis muscle belly and tendon to the full-thickness left leg wound. 3. Successful application of split-thickness skin graft overlying the anterior tibialis muscle belly and tendon. Computer Service Technician lens cleaner: No Complications Complications: No Admit VTE Documentation VTE Present on Admission: No VTE Mechan Device Prophylaxis: SCD's VTE Pharm Prophylaxis ordered?: Yes
[2024-08-02] MEDS: Clindamycin 900 MG/50 ML BAG 75 MG IV (15:00)
[2024-08-02] MEDS: Bupivacaine 0.25% 30 ML Vial (15:29)
[2024-08-02] MEDS: Lidocaine 1% /Epi 1:100 (20ml) 20 ML Vial (15:29)
[2024-08-02] MEDS: Calcium Chloride 1 GM/10 ML Syringe (16:02)
[2024-08-02] MEDS: Thrombin 5,000 IU Kit (PSA) 5,000 IU Vial 5000 IU TOPICAL ×2 (16:02→16:43)
[2024-08-02] MEDS: Mineral Oil, Light Sterile 10 ML Vial MC (16:34)
--- NOTE | 2024-08-02 17:31 | PCM.POST.ANE ---
Anesthesia: Postop Eval I Current Vital Signs Temperature: 97 F Pulse Rate: 84 Blood Pressure: 131/62 Respiratory Rate: 16 Pulse Ox: 96 Oxygen Delivery Method: Room Air Assessment Airway patent: Yes Spontaneous unlabored respirations: Yes Mental status: Awake and Calm nausea: No Vomiting: No Anesthesia Complication: No Fluid Hydration Crystalloid volume administer (ml): 600 Total IV fluid infused: 600 Progress Note Anesthesia document: Postop Eval 1 completed: Yes
--- NOTE | 2024-08-02 23:41 | POSTOPAN2_ITS ---
Anesthesia Postop Eval I Sum Postop Eval Completion status Anesthesia document: Postop Eval 1 completed: Yes Anesthesia Postop Eval I Summary Anesthesia Postop Eval I Summary: Anesthesia Postop Eval I: Assessment Summary Airway patent Yes 08/02/24 17:32 AUDIT OFFICER.MDOT Spontaneous unlabored Yes 08/02/24 17:32 AUDIT OFFICER.MDOT respirations Mental status Awake,Calm 08/02/24 17:32 AUDIT OFFICER.MDOT nausea No 08/02/24 17:32 AUDIT OFFICER.MDOT Vomiting No 08/02/24 17:32 AUDIT OFFICER.MDOT Anesthesia Postop Eval I: Fluid Summary Crystalloid volume administer 600 08/02/24 17:32 AUDIT OFFICER.MDOT (ml) Colloids volume administered ( ml) Blood Product volume administered (ml) Total IV fluid infused 600 08/02/24 17:32 AUDIT OFFICER.MDOT Anesthesia Postop Eval I: Summary Notes Anesthesia Complication No 08/02/24 17:32 AUDIT OFFICER.MDOT Anesthesia Complication Comment: Post-operative progress note Anesthesia: Postop Eval II Evaluation Mental status: Awake Pain Level: 0 nausea: No Vomiting: No
--- NOTE | 2024-08-02 23:41 | PCM.POSTANE2 ---
Anesthesia Postop Eval I Sum Postop Eval Completion status Anesthesia document: Postop Eval 1 completed: Yes Anesthesia Postop Eval I Summary Anesthesia Postop Eval I Summary: Anesthesia Postop Eval I: Assessment Summary Airway patent Yes 08/02/24 17:32 MAINTENANCE DISPATCHER.MDOT Spontaneous unlabored Yes 08/02/24 17:32 MAINTENANCE DISPATCHER.MDOT respirations Mental status Awake,Calm 08/02/24 17:32 MAINTENANCE DISPATCHER.MDOT nausea No 08/02/24 17:32 MAINTENANCE DISPATCHER.MDOT Vomiting No 08/02/24 17:32 MAINTENANCE DISPATCHER.MDOT Anesthesia Postop Eval I: Fluid Summary Crystalloid volume administer 600 08/02/24 17:32 MAINTENANCE DISPATCHER.MDOT (ml) Colloids volume administered ( ml) Blood Product volume administered (ml) Total IV fluid infused 600 08/02/24 17:32 MAINTENANCE DISPATCHER.MDOT Anesthesia Postop Eval I: Summary Notes Anesthesia Complication No 08/02/24 17:32 MAINTENANCE DISPATCHER.MDOT Anesthesia Complication Comment: Post-operative progress note Anesthesia: Postop Eval II Evaluation Mental status: Awake Pain Level: 0 nausea: No Vomiting: No
== END 2024-08-02 18:45 | disposition home or self-care (01) ==
LOC: SDC 12:47 → AC 12:47
PROVIDERS: Referring Provider Podiatrist Foot & Ankle Surgery; Visit Provider Podiatrist Foot & Ankle Surgery
PROC: (CPT 15100; principal; 2024-08-02 14:15)
DX: L97.824 Non-pressure chronic ulcer of other part of left lower leg with necrosis of bone (principal); E11.9 Type 2 diabetes mellitus without complications; F17.200 Nicotine dependence, unspecified, uncomplicated; Z79.891 Long term (current) use of opiate analgesic; M79.605 Pain in left leg; Z90.49 Acquired absence of other specified parts of digestive tract; Z90.710 Acquired absence of both cervix and uterus; I25.2 Old myocardial infarction; K21.9 Gastro-esophageal reflux disease without esophagitis; F32.A Depression, unspecified
CPT/HCPCS: 15100; 11982; 15738; 38220; 01112; J3490; J7120; 94640; A4216; J2405

== ENCOUNTER 2024-08-04 09:30 | Outpatient (RCR) | payer MEDICAID, SELFPAY ==
[2024-07-09 00:23] VITALS: BP 129/55; PULSE 92; RESP 18; TEMP 36.8
[2024-07-13 09:41] VITALS: BP 127/61; PULSE 71; RESP 16; TEMP 36.2
[2024-07-16 10:14] VITALS: BP 161/91; PULSE 90; RESP 18; TEMP 36.2
[2024-07-19 09:14] VITALS: BP 144/76; PULSE 83; RESP 18; TEMP 36.1
[2024-07-21 09:14] VITALS: BP 126/64; PULSE 83; RESP 18; TEMP 36.3
--- NOTE | 2024-07-21 09:53 | PN.PCM_ITS ---
History of Present Illness Date of Service: 07/21/24 Chief Complaint: nonhealing ulcer left anterior leg. History of Wound: Surgery 12/03/22 - surgical preparation left anterior leg with incision and drainage and excisional debridement nonhealing infected MRSA ulcer and partial ostectomy tibia for osteomyelitis. Wound care - Silver dressings followed by Tubigrip. Operative Tissue and bone cultures positive for MRSA. Treated with IV Vancomycin. Infectious Diseases consulted. Pathology - pieces of bone with chronic inflammation and reactive changes, negative for acute osteomyelitis. Prealbumin from 12/04/22 was 14.5. Encouraged nutritional supplementation with protein to help with the healing process. HgbA1c from 07/19/22 was 5.7. HgbA1c needs to be less than 8 for elective surgeries. MRI left leg done on08/08/22 - Sinus tracts from the marrow of the mid to distal tibial diaphysis to the skin at the medial aspect. Marrow edema throughout the majority of the tibia. Findings concerning for osteomyelitis. Arterial study completed 11/04/22. Triphasic Doppler waveforms at ankle level bilaterally. Right MARI by dorsalis pedis = 1.15.? Left MARI by dorsalis pedis = 1.28. There is no evidence of significant arterial occlusive disease in the lower extremities bilaterally. Today she denies complaints of fever. Her appetite is ok. Subjective Subjective Ms. Calvert is a 63-year-old female presenting to clinic today for follow-up evaluation status post left leg surgery with application of application beads, and snap VAC application. Patient is doing well and has some discomfort to left lower extremity. She has followed up with the wound care center for canister replacement. She is wonder about moving forward with additional surgery. She can still continues to smoke but cut back. Denies trauma. Denies co nstitutional symptoms. Other pedal complaints at this time. Objective Data Objective Data Vital Signs: Vital Signs Temp Pulse Resp BP O2 Del Method 97.3 F L 83 18 126/64 H Room Air 07/21/24 09:14 07/21/24 09:14 07/21/24 09:14 07/21/24 09:14 07/21/24 09:14 Oxygen Delivery Method Room Air Physical Exam Narrative Vascular: DP and PT pulses are palpable. CFT is brisk. Skin temperature great is warm to warm from proximal ankle to the distal digits to left lower extremity. Nonpitting edema appreciated to left lower extremity. Blanchable erythema to periwound on the left leg. Neurological: Light touch intact. Patient does respond to painful stimuli. Dermatological: No evidence of surgical wound dehiscence but evidence of full- thickness wound with exposed antibiotic beads and bone. Wound measures 2.0 x 1.3 x 1.6 cm. No malodor. Positive probe to bone. Excisional debridement down to including subcutaneous tissue, fascia, muscle and bone with a number 3 mm dermal curette without incident. Predebridement measurement is 1.8 x 1.0 x 0.9 cm. Postdebridement measurement is 2.0 x 1.3 x 1.6 cm. Musculoskeletal: No pain on palpation of full-thickness ulceration to left tibia. No pain with calf compression. Debridement Note Debridement Note Debridement Free Text: Excisional debridement down to including subcutaneous tissue, fascia, muscle and bone with a number 3 mm dermal curette without incident. Predebridement measurement is 1.8 x 1.0 x 0.9 cm. Postdebridement measurement is 2.0 x 1.3 x 1.6 cm. Post-Debridement Measurements and Additional Note: Post-Debridement Measurements/Treatment [facility] Nurse 1 - General Ulcer Assessment Start: 07/13/24 09:41 Freq: Status: Active Protocol: ELENA Activity Type Activity Date Activity User E-sign Co-sign Detail Recorded Client Recorded Date Recorded By Document 07/13/24 09:41 KW [id number] 07/13/24 09:43 KW Document 07/16/24 10:14 KW [id number] 07/16/24 10:16 KW Document 07/19/24 09:14 DL [id number] 07/19/24 09:24 DL Document 07/21/24 09:14 KW [id number] 07/21/24 09:23 KW 07/13/24 07/16/24 07/19/24 09:41 10:14 09:14 - Today's Visit Information Type of service Nurse-only Nurse-only Nurse-only Visit Visit Visit Arrival Mode Wheelchair Wheelchair Wheelchair Transfer Assistance None Patient Identification Verified (Name & Yes Yes Yes ) Patient Requires Transmission-Based No Precautions Vital Signs Temperature (97.8 F-99.1 F) 97.1 F L 97.2 F L 97 F L Temperature Source Temporal Temporal Temporal Pulse Rate (60-100) 71 90 83 Pulse Location Monitor Monitor Monitor Respiratory Rate (12-18) 16 18 18 Respiratory rate source Observation Observation Observation Oxygen Delivery Method Room Air Room Air Blood Pressure (90/60-120/80) 127/61 H 161/91 H 144/76 H Blood Pressure Mean (mm Hg) 83 114 98 Source Monitor Monitor Monitor Position Sitting Semi-Fowlers Blood Pressure Location Left Arm Left Arm History Since Last Visit- (Skip if this is Patient's initial visit) Have you changed medications since your No No last visit? Any new allergies or adverse reactions No No Had a fall/change in ADL's that may No No increase risk of falls Signs or symptoms of abuse and/or No No neglect since last visit Have you been in the hospital since your No No last visit? Has dressing in place as prescribed Yes Yes Has compression in place as prescribed Yes Yes Has offloadiing in place as prescribed N/A Yes Experienced any changes in pain level or No No management Left Footwear Regular Shoe No Footwear Right Footwear Regular Shoe Regular Shoe Pain Scale: 0-10 Numeric Is Patient Pain Free? Yes Yes Yes 07/21/24 09:14 - Today's Visit Information Type of service Follow-up Visit (Physician/TRANSITION SOCIAL WORKER ) Arrival Mode Wheelchair Transfer Assistance Patient Identification Verified (Name & Yes ) Patient Requires Transmission-Based Precautions Vital Signs Temperature (97.8 F-99.1 F) 97.3 F L Temperature Source Temporal Pulse Rate (60-100) 83 Pulse Location Monitor Respiratory Rate (12-18) 18 Respiratory rate source Observation Oxygen Delivery Method Room Air Blood Pressure (90/60-120/80) 126/64 H Blood Pressure Mean (mm Hg) 84 Source Monitor Position Semi-Fowlers Blood Pressure Location Left Arm History Since Last Visit- (Skip if this is Patient's initial visit) Have you changed medications since your No last visit? Any new allergies or adverse reactions No Had a fall/change in ADL's that may No increase risk of falls Signs or symptoms of abuse and/or No neglect since last visit Have you been in the hospital since your No last visit? Has dressing in place as prescribed Yes Has compression in place as prescribed Yes Has offloadiing in place as prescribed N/A Experienced any changes in pain level or No management Left Footwear Slipper Right Footwear Regular Shoe Pain Scale: 0-10 Numeric Is Patient Pain Free? Yes WC - Nurse 1 - General Ulcer Measurement Start: 07/13/24 09:41 Freq: Status: Active Protocol: Activity Type Activity Date Activity User E-sign Co-sign Detail Recorded Client Recorded Date Recorded By Document 07/19/24 09:14 DL [id number] 07/19/24 09:24 DL Document 07/21/24 09:14 KW [id number] 07/21/24 09:23 KW 07/19/24 07/21/24 09:14 09:14 Wound Center Nurse 1 #8 L Tenorio post-op -Current Size (cm) - Length 2.1 -Current Size (cm) - Width 1.7 -Current Size (cm) - Depth 1.4 -Total Square Cm 3.57 -Tunneling Yes -Tunneling Position (O'clock) 12 -Tunneling Distance (cm) 2.1 -Exudate Amt Medium Medium -Exudate Type Serosanguineous Serosanguineous -Wound Margin Distinct, Distinct, Outline Outline Attached Attached -Granulation Amt Large (67-100%) Large (67-100%) -Granulation Quality [place] -Necrosis Amt Small (1-33%) Small (1-33%) -Necrotic Tissue Type Adherent Slough Adherent Slough -Structure Exposed Bone Bone -Texture (Mima-wound Skin Appearance) Localized Edema Assessed ,Scarring -Moisture (Mima-wound Skin Appearance) No Abnormality, Assessed Dry/Scaly -Color (Mima-wound Skin Appearance) No Abnormality Assessed -Temperature (Mima-wound Skin No Abnormality No Abnormality Appearance) (Pt Warm) (Pt Warm) -Tenderness on Palpation (Mima-wound No Skin Appearance) -Ulcer Cleansing Soap and Water Soap and Water -Foul Odor after Cleansing No No -Anesthetic Used 5% Lidocaine Gel -Wound Comment(s) NV today for Snap Vac change WC - Nurse 2 - General Ulcer CM Notes Start: 07/13/24 09:41 Freq: Status: Active Protocol: Activity Type Activity Date Activity User E-sign Co-sign Detail Recorded Client Recorded Date Recorded By Document 07/21/24 09:34 JF [id number] 07/21/24 09:39 JF 07/21/24 09:34 Wound Center Nurse 2 -Time 09:35 -Correct Patient Yes -Correct Side, Site, Position Yes -Correct Procedure Yes -Procedure Performed Yes -Type of Procedure Debridement -Clinical Debridement Bone -Tissue Removed Non-viable tissue -Post Debridement (cm) - Length 2.0 -Post Debridement (cm) - Width 1.3 -Post Debridement (cm) - Depth 1.6 -Total Square (Post) (cm) 2.60 -Area of Debridement (cm) - Length 2.0 -Area of Debridement (cm) - Width 1.3 -Total Square (Area) (cm) 2.60 -Tunneling No -Undermining/Tunneling No -Circular Undermining No -Wound/Ulcer Outcome Not Healed -Ulcer Cleansing Rinsed/ Irrigated with Saline -Foul Odor after Cleansing No -Bioengineered Tissue No -Bleeding Controlled with Pressure -Treatment Response Procedure Tolerated Well -Offloading No -Debridement - Bone, 1st 20sq cm Yes Pain Scale: 0-10 Numeric Is Patient Pain Free? Yes WC - Nurse 3 - General Ulcer D/C NN Start: 07/13/24 09:41 Freq: Status: Active Protocol: Activity Type Activity Date Activity User E-sign Co-sign Detail Recorded Client Recorded Date Recorded By Document 07/13/24 09:41 KW [id number] 07/13/24 09:43 KW Document 07/16/24 10:14 KW [id number] 07/16/24 10:16 KW Document 07/19/24 09:14 DL [id number] 07/19/24 09:24 DL Document 07/21/24 09:48 KW [id number] 07/21/24 09:49 KW 07/13/24 07/16/24 07/19/24 09:41 10:14 09:14 Vital Signs Temperature (97.8 F-99.1 F) 97.1 F L 97.2 F L 97 F L Temperature Source Temporal Temporal Temporal Pulse Rate (60-100) 71 90 83 Pulse Location Monitor Monitor Monitor Respiratory Rate (12-18) 16 18 18 Respiratory rate source Observation Observation Observation Oxygen Delivery Method Room Air Room Air Blood Pressure (90/60-120/80) 127/61 H 161/91 H 144/76 H Blood Pressure Mean (mm Hg) 83 114 98 Source Monitor Monitor Monitor Position Sitting Semi-Fowlers Blood Pressure Location Left Arm Left Arm Pain Scale: 0-10 Numeric Is Patient Pain Free? Yes Yes Yes Wound Care Center Nurse 3 #8 L Tenorio post-op -Ulcer Cleansing Soap and Water Soap and Water Soap and Water -Foul Odor after Cleansing No -Negative Pressure Wound Therapy Continue Continue Continue -Setting (mmHg) 125 125 125 -Negative Pressure is Continuous Continuous Continuous -NPWT Application Charge NPWT </= 50 sq NPWT </= 50 sq NPWT </= 50 sq cm (disp) ($) cm (disp) ($) cm (disp) ($) Left -Compression Wrap Ino Wrap Ino Wrap Ino Wrap Treatment Response Procedure Tolerated Well WC - Visit Discharge Discharge Condition Stable Stable Ambulatory Status Wheelchair Ambulatory, Wheelchair Transportation Private Auto Notes: Heel betadine/ padding Facility Type Home Health Orders Sent Yes 07/21/24 09:48 Vital Signs Temperature (97.8 F-99.1 F) Temperature Source Pulse Rate (60-100) Pulse Location Respiratory Rate (12-18) Respiratory rate source Oxygen Delivery Method Blood Pressure (90/60-120/80) Blood Pressure Mean (mm Hg) Source Position Blood Pressure Location Pain Scale: 0-10 Numeric Is Patient Pain Free? 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 All findings were discussed with the patient. All questions were answered to the patient's satisfaction. Excisional debridement down to including subcutaneous tissue, fascia, muscle and bone with a number 3 mm dermal curette without incident. Predebridement measurement is 1.8 x 1.0 x 0.9 cm. Postdebridement measurement is 2.0 x 1.3 x 1.6 cm. Some of the antibiotic beads were removed. The left lower extremities were cleaned and patted dry. The snap VAC was applied per the membership director's recommendation. Pressure was secured and noted before the patient left the wound care center. Patient will begin to bear some weight using a walker but will not put all the weight through her left lower extremity as she could possibly injure her tibia which she was very understanding of. Discussed smoking cessation Will reach out to wire photo operator news to see when the patient will be booked for graft application to the full-thickness wound after completion of the antibiotic beads and initial surgical treatment. Follow-up at the wound care center with Dr. Estevez in 1 week.
[2024-07-23 12:02] VITALS: BP 126/64; PULSE 83; RESP 18; TEMP 36.3
[2024-07-28 09:18] VITALS: BP 109/63; PULSE 79; RESP 18; TEMP 36.1
--- NOTE | 2024-07-28 11:05 | PCM.WC.PN ---
History of Present Illness Date of Service: 07/28/24 Chief Complaint: nonhealing ulcer left anterior leg. History of Wound: Surgery 12/03/22 - surgical preparation left anterior leg with incision and drainage and excisional debridement nonhealing infected MRSA ulcer and partial ostectomy tibia for osteomyelitis. Wound care - Silver dressings followed by Tubigrip. Operative Tissue and bone cultures positive for MRSA. Treated with IV Vancomycin. Infectious Diseases consulted. Pathology - pieces of bone with chronic inflammation and reactive changes, negative for acute osteomyelitis. Prealbumin from 12/04/22 was 14.5. Encouraged nutritional supplementation with protein to help with the healing process. HgbA1c from 07/19/22 was 5.7. HgbA1c needs to be less than 8 for elective surgeries. MRI left leg done on08/08/22 - Sinus tracts from the marrow of the mid to distal tibial diaphysis to the skin at the medial aspect. Marrow edema throughout the majority of the tibia. Findings concerning for osteomyelitis. Arterial study completed 11/04/22. Triphasic Doppler waveforms at ankle level bilaterally. Right MARI by dorsalis pedis = 1.15.? Left MARI by dorsalis pedis = 1.28. There is no evidence of significant arterial occlusive disease in the lower extremities bilaterally. Today she denies complaints of fever. Her appetite is ok. Progress of Wound: Chronic right leg wound down to bone status post surgical debridement with antibiotic bead application. Patient is doing well. Following for wound care center with snap VAC application. Subjective Subjective Ms. Calvert is a 63-year-old diabetic female presenting to the wound care center today for follow-up evaluation of full-thickness wound to the left lower extremity secondary to old fracture. Patient is status post surgical skin graft site prep with application of antibiotic beads. We are planning to take the patient Friday for surgery consisting of muscle flap closure and application of split-thickness skin graft. Patient is doing well overall. She continues to follow her postoperative plan. Denies trauma. Denies constitutional symptoms. No other pedal complaints at this time. Objective Data Objective Data Vital Signs: Vital Signs Temp Pulse Resp BP O2 Del Method 96.9 F L 79 18 109/63 Room Air 07/28/24 09:18 07/28/24 09:18 07/28/24 09:18 07/28/24 09:18 07/28/24 09:18 Oxygen Delivery Method Room Air Physical Exam Narrative Vascular: DP and PT pulses are palpable. CFT is brisk. Skin temperature great is warm to warm from proximal ankle to the distal digits to left lower extremity. Nonpitting edema appreciated to left lower extremity. Blanchable erythema to periwound on the left leg. Neurological: Light touch intact. Patient does respond to painful stimuli. Dermatological: No evidence of surgical wound dehiscence but evidence of full-thickness wound with exposed antibiotic beads and bone. Wound measures 1.9 x 1.4 x 1.0 cm. No malodor. Positive probe to bone. Excisional debridement down to including subcutaneous tissue, fascia, muscle and bone with a number 3 mm dermal curette without incident. Predebridement measurement is 1.8 x 1.2 x 0.8 cm.. Postdebridement measurement is 1.9 x 1.4 x 1.0 cm. Musculoskeletal: No pain on palpation of full-thickness ulceration to left tibia. No pain with calf compression. Debridement Note Debridement Note Debridement Free Text: Excisional debridement down to including subcutaneous tissue, fascia, muscle and bone with a number 3 mm dermal curette without incident. Predebridement measurement is 1.8 x 1.2 x 0.8 cm.. Postdebridement measurement is 1.9 x 1.4 x 1.0 cm. Post-Debridement Measurements and Additional Note: Post-Debridement Measurements/Treatment - Nurse 1 - General Ulcer Assessment Start: 07/13/24 09:41 Freq: Status: Active Protocol: [email or web address].LOWEXT Activity Type Activity Date Activity User E-sign Co-sign Detail Recorded Client Recorded Date Recorded By Document 07/13/24 09:41 KW [id number] 07/13/24 09:43 KW Document 07/16/24 10:14 KW [id number] 07/16/24 10:16 KW Document 07/19/24 09:14 DL [id number] 07/19/24 09:24 DL Document 07/21/24 09:14 KW [id number] 07/21/24 09:23 KW Document 07/23/24 12:02 RB [id number] 07/23/24 12:05 RB Document 07/28/24 09:18 KW [id number] 07/28/24 09:24 KW 07/13/24 07/16/24 07/19/24 09:41 10:14 09:14 WC - Today's Visit Information Type of service Nurse-only Nurse-only Nurse-only Visit Visit Visit Arrival Mode Wheelchair Wheelchair Wheelchair Transfer Assistance None Patient Identification Verified (Name & Yes Yes Yes ) Patient Requires Transmission-Based No Precautions Vital Signs Temperature (97.8 F-99.1 F) 97.1 F L 97.2 F L 97 F L Temperature Source Temporal Temporal Temporal Pulse Rate (60-100) 71 90 83 Pulse Location Monitor Monitor Monitor Respiratory Rate (12-18) 16 18 18 Respiratory rate source Observation Observation Observation Oxygen Delivery Method Room Air Room Air Blood Pressure (90/60-120/80) 127/61 H 161/91 H 144/76 H Blood Pressure Mean (mm Hg) 83 114 98 Source Monitor Monitor Monitor Position Sitting Semi-Fowlers Blood Pressure Location Left Arm Left Arm History Since Last Visit- (Skip if this is Patient's initial visit) Have you changed medications since your No No last visit? Any new allergies or adverse reactions No No Had a fall/change in ADL's that may No No increase risk of falls Signs or symptoms of abuse and/or No No neglect since last visit Have you been in the hospital since your No No last visit? Has dressing in place as prescribed Yes Yes Has compression in place as prescribed Yes Yes Has offloadiing in place as prescribed N/A Yes Experienced any changes in pain level or No No management Left Footwear Regular Shoe No Footwear Right Footwear Regular Shoe Regular Shoe Pain Scale: 0-10 Numeric Is Patient Pain Free? Yes Yes Yes RLE -Description -Intensity -Duration (hours) -Pain Behavior -Pain Aggravating Factors -Alleviating Factors/Interventions -Effectiveness of Alleviating Factor/ Intervention 07/21/24 07/23/24 07/28/24 09:14 12:02 09:18 [facility] Today's Visit Information Type of service Follow-up Visit Nurse-only Follow-up Visit (Physician/WORKFORCE SPECIALIST Visit (Physician/WORKFORCE SPECIALIST ) ) Arrival Mode Wheelchair Wheelchair Ambulatory Transfer Assistance Manual Patient Identification Verified (Name & Yes Yes Yes ) Patient Requires Transmission-Based No Precautions Vital Signs Temperature (97.8 F-99.1 F) 97.3 F L 97.3 F L 96.9 F L Temperature Source Temporal Temporal Temporal Pulse Rate (60-100) 83 83 79 Pulse Location Monitor Monitor Monitor Respiratory Rate (12-18) 18 18 18 Respiratory rate source Observation Observation Observation Oxygen Delivery Method Room Air Room Air Blood Pressure (90/60-120/80) 126/64 H 126/64 H 109/63 Blood Pressure Mean (mm Hg) 84 84 78 Source Monitor Monitor Monitor Position Semi-Fowlers Semi-Fowlers Sitting Blood Pressure Location Left Arm Left Arm Left Arm History Since Last Visit- (Skip if this is Patient's initial visit) Have you changed medications since your No No No last visit? Any new allergies or adverse reactions No No No Had a fall/change in ADL's that may No No No increase risk of falls Signs or symptoms of abuse and/or No No No neglect since last visit Have you been in the hospital since your No No No last visit? Has dressing in place as prescribed Yes Yes Yes Has compression in place as prescribed Yes Yes Yes Has offloadiing in place as prescribed N/A No Yes Experienced any changes in pain level or No No No management Left Footwear Slipper Regular Shoe Right Footwear Regular Shoe Regular Shoe Pain Scale: 0-10 Numeric Is Patient Pain Free? Yes No Yes RLE -Description Aching -Intensity 5 -Duration (hours) Acute -Pain Behavior Withdrawal from Touch -Pain Aggravating Factors Exercise/ Activity -Alleviating Factors/Interventions Medication -Effectiveness of Alleviating Factor/ Moderately Intervention effective WC - Nurse 1 - General Ulcer Measurement Start: 07/13/24 09:41 Freq: Status: Active Protocol: Activity Type Activity Date Activity User E-sign Co-sign Detail Recorded Client Recorded Date Recorded By Document 07/19/24 09:14 DL [id number] 07/19/24 09:24 DL Document 07/21/24 09:14 KW [id number] 07/21/24 09:23 KW Document 07/23/24 12:02 RB [id number] 07/23/24 12:05 RB Document 07/28/24 09:18 KW [id number] 07/28/24 09:24 KW 07/19/24 07/21/24 07/23/24 09:14 09:14 12:02 Wound Center Nurse 1 #8 L [place] post-op -Current Size (cm) - Length 2.1 -Current Size (cm) - Width 1.7 -Current Size (cm) - Depth 1.4 -Total Square Cm 3.57 -Photo Taken -Epithelialization -Tunneling Yes -Tunneling Position (O'clock) 12 -Tunneling Distance (cm) 2.1 -Undermining/Tunneling -Undermining/Tunneling Starts (O'clock ) -Undermining/Tunneling Ends (O'clock) -Maximum Distance (cm) -Circular Undermining -Change in Wound Grade/Stage -Exudate Amt Medium Medium Large -Exudate Type Serosanguineous Serosanguineous Serosanguineous -Wound Margin Distinct, Distinct, Outline Outline Attached Attached -Granulation Amt Large (67-100%) Large (67-100%) -Granulation Quality Red [place] -Slough/Fibrin -Necrosis Amt Small (1-33%) Small (1-33%) -Necrotic Tissue Type Adherent Slough Adherent Slough -Structure Exposed Bone Bone -Texture (Mima-wound Skin Appearance) Localized Edema Assessed ,Scarring -Moisture (Mima-wound Skin Appearance) No Abnormality, Assessed Dry/Scaly -Color (Mima-wound Skin Appearance) No Abnormality Assessed -Temperature (Mima-wound Skin No Abnormality No Abnormality Appearance) (Pt Warm) (Pt Warm) -Tenderness on Palpation (Mima-wound No Skin Appearance) -Ulcer Cleansing Soap and Water Soap and Water Wound Cleanser -Foul Odor after Cleansing No No -Anesthetic Used 5% Lidocaine Gel -Wound Comment(s) NV today for Snap Vac change 07/28/24 09:18 Wound Center Nurse 1 #8 L [place] post-op -Current Size (cm) - Length 1.7 -Current Size (cm) - Width 1.5 -Current Size (cm) - Depth 1.7 -Total Square Cm 2.55 -Photo Taken No -Epithelialization None Present -Tunneling No -Tunneling Position (O'clock) -Tunneling Distance (cm) -Undermining/Tunneling Yes -Undermining/Tunneling Starts (O'clock 12 ) -Undermining/Tunneling Ends (O'clock) 1 -Maximum Distance (cm) 2.2 -Circular Undermining No -Change in Wound Grade/Stage No -Exudate Amt Large -Exudate Type Yellow/Green -Wound Margin Distinct, Outline Attached -Granulation Amt Small (1-33%) -Granulation Quality [place] -Slough/Fibrin Yes -Necrosis Amt -Necrotic Tissue Type Adherent Slough -Structure Exposed N/A -Texture (Mima-wound Skin Appearance) Assessed -Moisture (Mima-wound Skin Appearance) Assessed, Maceration -Color (Mima-wound Skin Appearance) Assessed -Temperature (Mima-wound Skin No Abnormality Appearance) (Pt Warm) -Tenderness on Palpation (Mima-wound Skin Appearance) -Ulcer Cleansing Soap and Water -Foul Odor after Cleansing -Anesthetic Used 5% Lidocaine Gel -Wound Comment(s) YVETTE - Nurse 2 - General Ulcer CM Notes Start: 07/13/24 09:41 Freq: Status: Active Protocol: Activity Type Activity Date Activity User E-sign Co-sign Detail Recorded Client Recorded Date Recorded By Document 07/21/24 09:34 [id number] 07/21/24 09:39 Document 07/28/24 09:47 [id number] 07/28/24 09:57 07/21/24 07/28/24 09:34 09:47 Wound Center Nurse 2 #8 L Tenorio post-op -Time 09:35 09:48 -Correct Patient Yes Yes -Correct Side, Site, Position Yes Yes -Correct Procedure Yes Yes -Procedure Performed Yes Yes -Type of Procedure Debridement Debridement -Clinical Debridement Bone Bone -Tissue Removed Non-viable Non-viable tissue tissue -Post Debridement (cm) - Length 2.0 1.9 -Post Debridement (cm) - Width 1.3 1.4 -Post Debridement (cm) - Depth 1.6 1.0 -Total Square (Post) (cm) 2.60 2.66 -Area of Debridement (cm) - Length 2.0 1.9 -Area of Debridement (cm) - Width 1.3 1.4 -Total Square (Area) (cm) 2.60 2.66 -Tunneling No No -Undermining/Tunneling No No -Circular Undermining No No -Wound/Ulcer Outcome Not Healed Not Healed -Ulcer Cleansing Rinsed/ Rinsed/ Irrigated with Irrigated with Saline Saline -Foul Odor after Cleansing No No -Bioengineered Tissue No No -Bleeding Controlled with Pressure Pressure -Treatment Response Procedure Procedure Tolerated Well Tolerated Well -Offloading No No -Debridement - Bone, 1st 20sq cm Yes Yes Pain Scale: 0-10 Numeric Is Patient Pain Free? Yes Yes YVETTE - Nurse 3 - General Ulcer D/C NN Start: 07/13/24 09:41 Freq: Status: Active Protocol: Activity Type Activity Date Activity User E-sign Co-sign Detail Recorded Client Recorded Date Recorded By Document 07/13/24 09:41 KW [id number] 07/13/24 09:43 KW Document 07/16/24 10:14 KW [id number] 07/16/24 10:16 KW Document 07/19/24 09:14 DL [id number] 07/19/24 09:24 DL Document 07/21/24 09:48 KW [id number] 07/21/24 09:49 KW Document 07/23/24 12:02 RB [id number] 07/23/24 12:05 RB Document 07/28/24 10:11 KW [id number] 07/28/24 10:12 KW 07/13/24 07/16/24 07/19/24 09:41 10:14 09:14 Vital Signs Temperature (97.8 F-99.1 F) 97.1 F L 97.2 F L 97 F L Temperature Source Temporal Temporal Temporal Pulse Rate (60-100) 71 90 83 Pulse Location Monitor Monitor Monitor Respiratory Rate (12-18) 16 18 18 Respiratory rate source Observation Observation Observation Oxygen Delivery Method Room Air Room Air Blood Pressure (90/60-120/80) 127/61 H 161/91 H 144/76 H Blood Pressure Mean (mm Hg) 83 114 98 Source Monitor Monitor Monitor Position Sitting Semi-Fowlers Blood Pressure Location Left Arm Left Arm Pain Scale: 0-10 Numeric Is Patient Pain Free? Yes Yes Yes RLE -Description -Intensity -Duration (hours) -Pain Behavior -Pain Aggravating Factors -Alleviating Factors/Interventions -Effectiveness of Alleviating Factor/ Intervention Wound Care Center Nurse 3 #8 L Ten[place] post-op -Ulcer Cleansing Soap and Water Soap and Water Soap and Water -Foul Odor after Cleansing No -Negative Pressure Wound Therapy Continue Continue Continue -Setting (mmHg) 125 125 125 -Negative Pressure is Continuous Continuous Continuous -NPWT Application Charge NPWT </= 50 sq NPWT </= 50 sq NPWT </= 50 sq cm (disp) ($) cm (disp) ($) cm (disp) ($) -Wound Comment(s) Left -Compression Wrap Ino Wrap Ino Wrap Ino Wrap -Other Treatment Response Procedure Tolerated Well WC - Visit Discharge Discharge Condition Stable Stable Ambulatory Status Wheelchair Ambulatory, Wheelchair Transportation Private Auto Medication Reconcilliation completed & provided to patient/care provider Clinical Summary of Care Provided Notes: Heel betadine/ padding Facility Type Home Health Orders Sent Yes 07/21/24 07/23/24 07/28/24 09:48 12:02 10:11 Vital Signs Temperature (97.8 F-99.1 F) 97.3 F L Temperature Source Temporal Pulse Rate (60-100) 83 Pulse Location Monitor Respiratory Rate (12-18) 18 Respiratory rate source Observation Oxygen Delivery Method Blood Pressure (90/60-120/80) 126/64 H Blood Pressure Mean (mm Hg) 84 Source Monitor Position Semi-Fowlers Blood Pressure Location Left Arm Pain Scale: 0-10 Numeric Is Patient Pain Free? Yes No Yes RLE -Description Aching -Intensity 5 -Duration (hours) Acute -Pain Behavior Withdrawal from Touch -Pain Aggravating Factors Exercise/ Activity -Alleviating Factors/Interventions Medication -Effectiveness of Alleviating Factor/ Moderately Intervention effective Wound Care Center Nurse 3 #8 L Ten[place] post-op -Ulcer Cleansing Not Cleansed Wound Cleanser -Foul Odor after Cleansing No -Negative Pressure Wound Therapy Continue Continue -Setting (mmHg) 125 125 125 -Negative Pressure is Continuous Continuous Continuous -NPWT Application Charge NPWT </= 50 sq NPWT </= 50 sq NPWT & cm (disp) ($) cm (disp) ($) Debridement (nc ) -Wound Comment(s) Abd under vac tubing Left -Compression Wrap Ino Wrap Ino Wrap -Other ino Treatment Response Procedure Tolerated Well WC - Visit Discharge Discharge Condition Stable Stable Ambulatory Status Ambulatory Wheelchair Transportation Private Auto Private Auto Medication Reconcilliation completed & No provided to patient/care provider Clinical Summary of Care Provided Yes Notes: Facility Type Orders Sent Assessment/Plan Assessment/Plan (1) 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 All findings were discussed with the patient. All questions were answered to the patient's satisfaction. Excisional debridement down to including subcutaneous tissue, fascia, muscle and bone with a number 3 mm dermal curette without incident. Predebridement measurement is 1.8 x 1.2 x 0.8 cm.. Postdebridement measurement is 1.9 x 1.4 x 1.0 cm. The left lower extremities were cleaned and patted dry. The snap VAC was applied per the shop firer/fireman's recommendation. Pressure was secured and noted before the patient left the wound care center. We are planning for surgical intervention to the left lower extremity full-thickness wound consisting of [place] of bone marrow aspirate concentrate, muscle flap closure with application of split-thickness skin graft to the left lower extremity. All risk and benefit discussed with patient in detail. Chart review consent signed. Educated the patient that she needs to stop smoking after surgery and she runs a risk for killing the muscle flap and split-thickness skin graft which she is understanding of. The patient will be dispensed nicotine patches. Plan for surgical intervention next Friday. Follow-up at the wound care center with Dr. Estevez in 1 week.
[2024-07-30 09:22] VITALS: BP 128/50; PULSE 82; RESP 18; TEMP 36.2
[2024-08-04 09:23] VITALS: BP 116/62; PULSE 83; RESP 18; TEMP 36.1
--- NOTE | 2024-08-04 11:17 | PCM.WC.PN ---
History of Present Illness Date of Service: 08/04/24 Chief Complaint: nonhealing ulcer left anterior leg. History of Wound: Surgery 12/03/22 - surgical preparation left anterior leg with incision and drainage and excisional debridement nonhealing infected MRSA ulcer and partial ostectomy tibia for osteomyelitis. Wound care - Silver dressings followed by Tubigrip. Operative Tissue and bone cultures positive for MRSA. Treated with IV Vancomycin. Infectious Diseases consulted. Pathology - pieces of bone with chronic inflammation and reactive changes, negative for acute osteomyelitis. Prealbumin from 12/04/22 was 14.5. Encouraged nutritional supplementation with protein to help with the healing process. HgbA1c from 07/19/22 was 5.7. HgbA1c needs to be less than 8 for elective surgeries. MRI left leg done on08/08/22 - Sinus tracts from the marrow of the mid to distal tibial diaphysis to the skin at the medial aspect. Marrow edema throughout the majority of the tibia. Findings concerning for osteomyelitis. Arterial study completed 11/04/22. Triphasic Doppler waveforms at ankle level bilaterally. Right MARI by dorsalis pedis = 1.15.? Left MARI by dorsalis pedis = 1.28. There is no evidence of significant arterial occlusive disease in the lower extremities bilaterally. Today she denies complaints of fever. Her appetite is ok. Progress of Wound: Chronic right leg wound down to bone status post surgical debridement with antibiotic bead application. Patient is doing well. Following for wound care center with snap VAC application. Subjective Subjective Ms. Calvert is a 63-year-old female presented wound care center today for follow-up evaluation of status post bone marrow aspirate concentrate, removal of antibiotic beads, anterior tibialis muscle flap with split-thickness skin graft application, negative pressure wound VAC and posterior splint to the left lower extremity. DOS: 08/02/2024. Patient is doing well from surgery. She denies minimal pain to the left lower extremity. She is grateful for care. She admits to minimal smoking and only taking 2 puffs of a cigarette at 5 AM today. She is not using nicotine patches. She is taking all medication as prescribed after surgery. She is grateful for care. Denies trauma. Denies constitutional symptoms. No other pedal complaints at this time. Objective Data Objective Data Vital Signs: Vital Signs Temp Pulse Resp BP O2 Del Method 97.0 F L 83 18 116/62 Room Air 08/04/24 09:23 08/04/24 09:23 08/04/24 09:23 08/04/24 09:23 08/04/24 09:23 Oxygen Delivery Method Room Air Physical Exam Narrative Vascular: DP and PT pulses are palpable. CFT is brisk. Skin temperature great is warm to warm from proximal ankle to the distal digits to left lower extremity. Nonpitting edema appreciated to left lower extremity. No erythema. Neurological: Light touch intact. Patient does respond to painful stimuli. Dermatological: Intact muscle flap and split-thickness skin graft to the left leg. Graft harvest site is stable. No sign of infection to the left lower extremity. Musculoskeletal: No pain on palpation of full-thickness ulceration to left tibia. No pain with calf compression. Debridement Note Debridement Note Post-Debridement Measurements and Additional Note: Post-Debridement Measurements/Treatment - Nurse 1 - General Ulcer Assessment Start: 07/13/24 09:41 Freq: Status: Active Protocol: [email or web address].[email or web address] Activity Type Activity Date Activity User E-sign Co-sign Detail Recorded Client Recorded Date Recorded By Document 07/13/24 09:41 KW [id number] 07/13/24 09:43 KW Document 07/16/24 10:14 KW [id number] 07/16/24 10:16 KW Document 07/19/24 09:14 DL [id number] 07/19/24 09:24 DL Document 07/21/24 09:14 KW [id number] 07/21/24 09:23 KW Document 07/23/24 12:02 RB [id number] 07/23/24 12:05 RB Document 07/28/24 09:18 KW [id number] 07/28/24 09:24 KW Document 07/30/24 09:22 KW [id number] 07/30/24 09:47 KW Document 08/04/24 09:23 KW [id number] 08/04/24 09:34 KW 07/13/24 07/16/24 07/19/24 09:41 10:14 09:14 - Today's Visit Information Type of service Nurse-only Nurse-only Nurse-only Visit Visit Visit Arrival Mode Wheelchair Wheelchair Wheelchair Transfer Assistance None Patient Identification Verified (Name & Yes Yes Yes ) Patient Requires Transmission-Based No Precautions Vital Signs Temperature (97.8 F-99.1 F) 97.1 F L 97.2 F L 97 F L Temperature Source Temporal Temporal Temporal Pulse Rate (60-100) 71 90 83 Pulse Location Monitor Monitor Monitor Respiratory Rate (12-18) 16 18 18 Respiratory rate source Observation Observation Observation Oxygen Delivery Method Room Air Room Air Blood Pressure (90/60-120/80) 127/61 H 161/91 H 144/76 H Blood Pressure Mean (mm Hg) 83 114 98 Source Monitor Monitor Monitor Position Sitting Semi-Fowlers Blood Pressure Location Left Arm Left Arm History Since Last Visit- (Skip if this is Patient's initial visit) Have you changed medications since your No No last visit? Any new allergies or adverse reactions No No Had a fall/change in ADL's that may No No increase risk of falls Signs or symptoms of abuse and/or No No neglect since last visit Have you been in the hospital since your No No last visit? Has dressing in place as prescribed Yes Yes Has compression in place as prescribed Yes Yes Has offloadiing in place as prescribed N/A Yes Experienced any changes in pain level or No No management Left Footwear Regular Shoe No Footwear Right Footwear Regular Shoe Regular Shoe Pain Scale: 0-10 Numeric Is Patient Pain Free? Yes Yes Yes RLE -Description -Intensity -Duration (hours) -Pain Behavior -Pain Aggravating Factors -Alleviating Factors/Interventions -Effectiveness of Alleviating Factor/ Intervention 07/21/24 07/23/24 07/28/24 09:14 12:02 09:18 WC - Today's Visit Information Type of service Follow-up Visit Nurse-only Follow-up Visit (Physician/[employer] Visit (Physician/[employer] ) ) Arrival Mode Wheelchair Wheelchair Ambulatory Transfer Assistance Manual Patient Identification Verified (Name & Yes Yes Yes ) Patient Requires Transmission-Based No Precautions Vital Signs Temperature (97.8 F-99.1 F) 97.3 F L 97.3 F L 96.9 F L Temperature Source Temporal Temporal Temporal Pulse Rate (60-100) 83 83 79 Pulse Location Monitor Monitor Monitor Respiratory Rate (12-18) 18 18 18 Respiratory rate source Observation Observation Observation Oxygen Delivery Method Room Air Room Air Blood Pressure (90/60-120/80) 126/64 H 126/64 H 109/63 Blood Pressure Mean (mm Hg) 84 84 78 Source Monitor Monitor Monitor Position Semi-Fowlers Semi-Fowlers Sitting Blood Pressure Location Left Arm Left Arm Left Arm History Since Last Visit- (Skip if this is Patient's initial visit) Have you changed medications since your No No No last visit? Any new allergies or adverse reactions No No No Had a fall/change in ADL's that may No No No increase risk of falls Signs or symptoms of abuse and/or No No No neglect since last visit Have you been in the hospital since your No No No last visit? Has dressing in place as prescribed Yes Yes Yes Has compression in place as prescribed Yes Yes Yes Has offloadiing in place as prescribed N/A No Yes Experienced any changes in pain level or No No No management Left Footwear Slipper Regular Shoe Right Footwear Regular Shoe Regular Shoe Pain Scale: 0-10 Numeric Is Patient Pain Free? Yes No Yes RLE -Description Aching -Intensity 5 -Duration (hours) Acute -Pain Behavior Withdrawal from Touch -Pain Aggravating Factors Exercise/ Activity -Alleviating Factors/Interventions Medication -Effectiveness of Alleviating Factor/ Moderately Intervention effective 07/30/24 08/04/24 09:22 09:23 WC - Today's Visit Information Type of service Nurse-only Follow-up Visit Visit (Physician/[employer] ) Arrival Mode Wheelchair Transfer Assistance Patient Identification Verified (Name & Yes ) Patient Requires Transmission-Based Precautions Vital Signs Temperature (97.8 F-99.1 F) 97.1 F L 97.0 F L Temperature Source Temporal Temporal Pulse Rate (60-100) 82 83 Pulse Location Monitor Monitor Respiratory Rate (12-18) 18 18 Respiratory rate source Observation Observation Oxygen Delivery Method Room Air Room Air Blood Pressure (90/60-120/80) 128/50 H 116/62 Blood Pressure Mean (mm Hg) 76 80 Source Monitor Monitor Position Semi-Fowlers Semi-Fowlers Blood Pressure Location Left Arm Left Arm History Since Last Visit- (Skip if this is Patient's initial visit) Have you changed medications since your No No last visit? Any new allergies or adverse reactions No No Had a fall/change in ADL's that may No No increase risk of falls Signs or symptoms of abuse and/or No No neglect since last visit Have you been in the hospital since your No No last visit? Has dressing in place as prescribed Yes Yes Has compression in place as prescribed Yes Yes Has offloadiing in place as prescribed Yes Yes Experienced any changes in pain level or No No management Left Footwear Slipper No Footwear Right Footwear Slipper Regular Shoe Pain Scale: 0-10 Numeric Is Patient Pain Free? Yes Yes RLE -Description -Intensity -Duration (hours) -Pain Behavior -Pain Aggravating Factors -Alleviating Factors/Interventions -Effectiveness of Alleviating Factor/ Intervention WC - Nurse 1 - General Ulcer Measurement Start: 07/13/24 09:41 Freq: Status: Active Protocol: Activity Type Activity Date Activity User E-sign Co-sign Detail Recorded Client Recorded Date Recorded By Document 07/19/24 09:14 DL [id number] 07/19/24 09:24 DL Document 07/21/24 09:14 KW [id number] 07/21/24 09:23 KW Document 07/23/24 12:02 RB [id number] 07/23/24 12:05 RB Document 07/28/24 09:18 KW [id number] 07/28/24 09:24 KW Document 08/04/24 09:23 KW [id number] 08/04/24 09:34 KW 07/19/24 07/21/24 07/23/24 09:14 09:14 12:02 Wound Center Nurse 1 #8 L [place] post-op -Current Size (cm) - Length 2.1 -Current Size (cm) - Width 1.7 -Current Size (cm) - Depth 1.4 -Total Square Cm 3.57 -Date of Last Picture (Recall this field) -Photo Taken -Epithelialization -Tunneling Yes -Tunneling Position (O'clock) 12 -Tunneling Distance (cm) 2.1 -Undermining/Tunneling -Undermining/Tunneling Starts (O'clock ) -Undermining/Tunneling Ends (O'clock) -Maximum Distance (cm) -Circular Undermining -Change in Wound Grade/Stage -Exudate Amt Medium Medium Large -Exudate Type Serosanguineous Serosanguineous Serosanguineous -Wound Margin Distinct, Distinct, Outline Outline Attached Attached -Granulation Amt Large (67-100%) Large (67-100%) -Granulation Quality Red [place] -Slough/Fibrin -Necrosis Amt Small (1-33%) Small (1-33%) -Necrotic Tissue Type Adherent Slough Adherent Slough -Structure Exposed Bone Bone -Texture (Mima-wound Skin Appearance) Localized Edema Assessed ,Scarring -Moisture (Mima-wound Skin Appearance) No Abnormality, Assessed Dry/Scaly -Color (Mima-wound Skin Appearance) No Abnormality Assessed -Temperature (Mima-wound Skin No Abnormality No Abnormality Appearance) (Pt Warm) (Pt Warm) -Tenderness on Palpation (Mima-wound No Skin Appearance) -Ulcer Cleansing Soap and Water Soap and Water Wound Cleanser -Foul Odor after Cleansing No No -Anesthetic Used 5% Lidocaine Gel -Wound Comment(s) NV today for Snap Vac change Left Calf (cm) Left Ankle (cm) 07/28/24 08/04/24 09:18 09:23 Wound Center Nurse 1 #8 L [place] post-op -Current Size (cm) - Length 1.7 2.3 -Current Size (cm) - Width 1.5 4.5 -Current Size (cm) - Depth 1.7 0 -Total Square Cm 2.55 10.35 -Date of Last Picture (Recall this 08/04/24 field) -Photo Taken No -Epithelialization None Present -Tunneling No -Tunneling Position (O'clock) -Tunneling Distance (cm) -Undermining/Tunneling Yes -Undermining/Tunneling Starts (O'clock 12 ) -Undermining/Tunneling Ends (O'clock) 1 -Maximum Distance (cm) 2.2 -Circular Undermining No -Change in Wound Grade/Stage No -Exudate Amt Large Small -Exudate Type Yellow/Green Serosanguineous -Wound Margin Distinct, Distinct, Outline Outline Attached Attached -Granulation Amt Small (1-33%) Large (67-100%) -Granulation Quality [place] Red -Slough/Fibrin Yes -Necrosis Amt -Necrotic Tissue Type Adherent Slough -Structure Exposed N/A -Texture (Mima-wound Skin Appearance) Assessed Assessed -Moisture (Mima-wound Skin Appearance) Assessed, Assessed Maceration -Color (Mima-wound Skin Appearance) Assessed Assessed, Erythema -Temperature (Mima-wound Skin No Abnormality No Abnormality Appearance) (Pt Warm) (Pt Warm) -Tenderness on Palpation (Mima-wound No Skin Appearance) -Ulcer Cleansing Soap and Water Soap and Water -Foul Odor after Cleansing No -Anesthetic Used 5% Lidocaine Gel -Wound Comment(s) GRAFT INTACT, 7 SUTURES ALONG INCISION, INCISION WELL APPROX. Left Calf (cm) 28 Left Ankle (cm) 19.5 WC - Nurse 2 - General Ulcer CM Notes Start: 07/13/24 09:41 Freq: Status: Active Protocol: Activity Type Activity Date Activity User E-sign Co-sign Detail Recorded Client Recorded Date Recorded By Document 07/21/24 09:34 JF [id number] 07/21/24 09:39 JF Document 07/28/24 09:47 JF [id number] 07/28/24 09:57 JF Document 08/04/24 10:02 JF [id number] 08/04/24 10:02 JF 07/21/24 07/28/24 08/04/24 09:34 09:47 10:02 Wound Center Nurse 2 #8 L [place] post-op -Time 09:35 09:48 -Correct Patient Yes Yes No -Correct Side, Site, Position Yes Yes No -Correct Procedure Yes Yes No -Procedure Performed Yes Yes No -Type of Procedure Debridement Debridement -Clinical Debridement Bone Bone -Tissue Removed Non-viable Non-viable tissue tissue -Post Debridement (cm) - Length 2.0 1.9 -Post Debridement (cm) - Width 1.3 1.4 -Post Debridement (cm) - Depth 1.6 1.0 -Total Square (Post) (cm) 2.60 2.66 -Area of Debridement (cm) - Length 2.0 1.9 -Area of Debridement (cm) - Width 1.3 1.4 -Total Square (Area) (cm) 2.60 2.66 -Tunneling No No -Undermining/Tunneling No No -Circular Undermining No No -Wound/Ulcer Outcome Not Healed Not Healed Not Healed -Ulcer Cleansing Rinsed/ Rinsed/ Irrigated with Irrigated with Saline Saline -Foul Odor after Cleansing No No -Bioengineered Tissue No No -Bleeding Controlled with Pressure Pressure -Treatment Response Procedure Procedure Tolerated Well Tolerated Well -Offloading No No -Debridement - Bone, 1st 20sq cm Yes Yes Pain Scale: 0-10 Numeric Is Patient Pain Free? Yes Yes Yes YVETTE - Nurse 3 - General Ulcer D/C NN Start: 07/13/24 09:41 Freq: Status: Active Protocol: Activity Type Activity Date Activity User E-sign Co-sign Detail Recorded Client Recorded Date Recorded By Document 07/13/24 09:41 KW [id number] 07/13/24 09:43 KW Document 07/16/24 10:14 KW [id number] 07/16/24 10:16 KW Document 07/19/24 09:14 DL [id number] 07/19/24 09:24 DL Document 07/21/24 09:48 KW [id number] 07/21/24 09:49 KW Document 07/23/24 12:02 RB [id number] 07/23/24 12:05 RB Document 07/28/24 10:11 KW [id number] 07/28/24 10:12 KW Document 07/30/24 09:47 KW [id number] 07/30/24 09:48 KW Document 08/04/24 10:47 RB [id number] 08/04/24 10:51 RB Edit Result 08/04/24 10:47 RB (1) [id number] 08/04/24 10:52 RB (1) #8 L [place] post-op - Primary Dressing Applied => Mepilex Border - Mepilex Border => 1 07/13/24 07/16/24 07/19/24 09:41 10:14 09:14 Vital Signs Temperature (97.8 F-99.1 F) 97.1 F L 97.2 F L 97 F L Temperature Source Temporal Temporal Temporal Pulse Rate (60-100) 71 90 83 Pulse Location Monitor Monitor Monitor Respiratory Rate (12-18) 16 18 18 Respiratory rate source Observation Observation Observation Oxygen Delivery Method Room Air Room Air Blood Pressure (90/60-120/80) 127/61 H 161/91 H 144/76 H Blood Pressure Mean (mm Hg) 83 114 98 Source Monitor Monitor Monitor Position Sitting Semi-Fowlers Blood Pressure Location Left Arm Left Arm Pain Scale: 0-10 Numeric Is Patient Pain Free? Yes Yes Yes RLE -Description -Intensity -Duration (hours) -Pain Behavior -Pain Aggravating Factors -Alleviating Factors/Interventions -Effectiveness of Alleviating Factor/ Intervention Teaching: Wound Center *Nutrition -Person Taught -Teaching Method -Response to teaching Wound Care Center Nurse 3 #8 L [place] post-op -Ulcer Cleansing Soap and Water Soap and Water Soap and Water -Foul Odor after Cleansing No -Negative Pressure Wound Therapy Continue Continue Continue -Setting (mmHg) 125 125 125 -Negative Pressure is Continuous Continuous Continuous -Primary Dressing Applied -NPWT Application Charge NPWT </= 50 sq NPWT </= 50 sq NPWT </= 50 sq cm (disp) ($) cm (disp) ($) cm (disp) ($) -Mepilex Border -Wound Comment(s) Left -Compression Wrap Ino Wrap Ino Wrap Ino Wrap -Other Treatment Response Procedure Tolerated Well WC - Visit Discharge Discharge Condition Stable Stable Ambulatory Status Wheelchair Ambulatory, Wheelchair Transportation Private Auto Accompanied by Medication Reconcilliation completed & provided to patient/care provider Clinical Summary of Care Provided Notes: Heel betadine/ padding Facility Type Home Health Orders Sent Yes 07/21/24 07/23/24 07/28/24 09:48 12:02 10:11 Vital Signs Temperature (97.8 F-99.1 F) 97.3 F L Temperature Source Temporal Pulse Rate (60-100) 83 Pulse Location Monitor Respiratory Rate (12-18) 18 Respiratory rate source Observation Oxygen Delivery Method Blood Pressure (90/60-120/80) 126/64 H Blood Pressure Mean (mm Hg) 84 Source Monitor Position Semi-Fowlers Blood Pressure Location Left Arm Pain Scale: 0-10 Numeric Is Patient Pain Free? Yes No Yes RLE -Description Aching -Intensity 5 -Duration (hours) Acute -Pain Behavior Withdrawal from Touch -Pain Aggravating Factors Exercise/ Activity -Alleviating Factors/Interventions Medication -Effectiveness of Alleviating Factor/ Moderately Intervention effective Teaching: Wound Center *Nutrition -Person Taught -Teaching Method -Response to teaching Wound Care Center Nurse 3 #8 L [place] post-op -Ulcer Cleansing Not Cleansed Wound Cleanser -Foul Odor after Cleansing No -Negative Pressure Wound Therapy Continue Continue -Setting (mmHg) 125 125 125 -Negative Pressure is Continuous Continuous Continuous -Primary Dressing Applied -NPWT Application Charge NPWT </= 50 sq NPWT </= 50 sq NPWT & cm (disp) ($) cm (disp) ($) Debridement (nc ) -Mepilex Border -Wound Comment(s) Abd under vac tubing Left -Compression Wrap Ino Wrap Ino Wrap -Other ino Treatment Response Procedure Tolerated Well WC - Visit Discharge Discharge Condition Stable Stable Ambulatory Status Ambulatory Wheelchair Transportation Private Auto Private Auto Accompanied by Medication Reconcilliation completed & No provided to patient/care provider Clinical Summary of Care Provided Yes Notes: Facility Type Orders Sent 07/30/24 08/04/24 09:47 10:47 Vital Signs Temperature (97.8 F-99.1 F) Temperature Source Pulse Rate (60-100) Pulse Location Respiratory Rate (12-18) Respiratory rate source Oxygen Delivery Method Blood Pressure (90/60-120/80) Blood Pressure Mean (mm Hg) Source Position Blood Pressure Location Pain Scale: 0-10 Numeric Is Patient Pain Free? Yes Yes RLE -Description -Intensity -Duration (hours) -Pain Behavior -Pain Aggravating Factors -Alleviating Factors/Interventions -Effectiveness of Alleviating Factor/ Intervention Teaching: Wound Center *Nutrition -Person Taught Patient -Teaching Method Discussion, Demonstration -Response to teaching Verbalize Understanding Wound Care Center Nurse 3 #8 L [place] post-op -Ulcer Cleansing Soap and Water -Foul Odor after Cleansing -Negative Pressure Wound Therapy Continue Continue -Setting (mmHg) 125 75 -Negative Pressure is Continuous Continuous -Primary Dressing Applied Mepilex Border -NPWT Application Charge NPWT </= 50 sq NPWT & cm (disp) ($) Debridement (nc ) -Mepilex Border 1 -Wound Comment(s) XEROFORM AND MEPILEX TO LEFT THIGH SKINGRAFT SITE BACITRACIN TO INCISION SITE WITH SUTURES ADAPTIC OVER GRAFT SITE BEFORE KCI VAC FOAM, BACITRACIN TO SUTURES ON LEFT LATERAL HEEL, AND BETADINE TO L HEEL AND ROLL GAUZE AND TAPE Left -Compression Wrap Ino Wrap -Other ABD PAD AND INO Treatment Response Procedure Tolerated Well WC - Visit Discharge Discharge Condition Stable Ambulatory Status Wheelchair Transportation Private Auto Accompanied by SIGNIFICANT OTHER Medication Reconcilliation completed & No provided to patient/care provider Clinical Summary of Care Provided Yes Notes: Facility Type Orders Sent Assessment/Plan Assessment/Plan (1) 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 All findings were discussed with the patient. All questions were answered to the patient's satisfaction. Patient is doing well after her left leg surgery consisting of muscle flap and split-thickness skin graft. The negative pressure wound VAC was applied for the commercial real estate associate's recommendation in the wound care center and set to 75 mmHg. Dry sterile dressing and Ino wrap was applied to left lower extremity. A new Xeroform, 4 x 4's and bordered foam was applied to the proximal graft harvest site. Educated patient the importance of smoking cessation and she was understanding. Patient will take all medication as prescribed. Follow-up at the wound care center with Dr. Estevez in 1 week.
--- NOTE | 2024-08-10 15:15 | WC ---
PHOTO 08/04/24 POST OP LEFT RODNEY
== END 2024-08-07 23:59 | disposition home or self-care (01) ==
LOC: WC 09:30
PROVIDERS: Referring Provider Nurse Practitioner Family; Visit Provider Podiatrist Foot & Ankle Surgery
DX: L97.824 Non-pressure chronic ulcer of other part of left lower leg with necrosis of bone (principal); Z86.14 Personal history of Methicillin resistant Staphylococcus aureus infection; F17.200 Nicotine dependence, unspecified, uncomplicated
CPT/HCPCS: 11044; 97607; 99214; G0463

== ENCOUNTER 2024-09-07 08:45 | Outpatient (RCR) | payer MEDICAID, SELFPAY ==
[2024-08-08 00:19] VITALS: BP 129/55; PULSE 92; RESP 18; TEMP 36.8
[2024-08-11 11:38] VITALS: BP 159/75; PULSE 85; RESP 18; TEMP 36.2
--- NOTE | 2024-08-11 13:56 | PN.PCM_ITS ---
History of Present Illness Date of Service: 08/11/24 Chief Complaint: nonhealing ulcer left anterior leg. History of Wound: Surgery 12/03/22 - surgical preparation left anterior leg with incision and drainage and excisional debridement nonhealing infected MRSA ulcer and partial ostectomy tibia for osteomyelitis. Wound care - Silver dressings followed by Tubigrip. Operative Tissue and bone cultures positive for MRSA. Treated with IV Vancomycin. Infectious Diseases consulted. Pathology - pieces of bone with chronic inflammation and reactive changes, negative for acute osteomyelitis. Prealbumin from 12/04/22 was 14.5. Encouraged nutritional supplementation with protein to help with the healing process. HgbA1c from 07/19/22 was 5.7. HgbA1c needs to be less than 8 for elective surgeries. MRI left leg done on08/08/22 - Sinus tracts from the marrow of the mid to distal tibial diaphysis to the skin at the medial aspect. Marrow edema throughout the majority of the tibia. Findings concerning for osteomyelitis. Arterial study completed 11/04/22. Triphasic Doppler waveforms at ankle level bilaterally. Right MARI by dorsalis pedis = 1.15.? Left MARI by dorsalis pedis = 1.28. There is no evidence of significant arterial occlusive disease in the lower extremities bilaterally. Today she denies complaints of fever. Her appetite is ok. Subjective Subjective Ms. Calvert is a 63-year-old female presenting to wound care center today for follow-up evaluation status post muscle flap with split-thickness skin graft closure to the full-thickness wound on the anterior aspect of the left leg. She has left the wound VAC intact. She states there is not much sanguinous drainage in the canister. She has been getting home health care for the proximal graft harvest site location changed. She admits the pain is only to the proximal thigh and no pain to the lower left extremity. She denies trauma. Denies constitutional symptoms. No other pedal complaints at this time. Patient does admit to some smoking but according to her it has been very minimal. She has tempted to use the patches but felt that they were too strong when applied. Objective Data Objective Data Vital Signs: Vital Signs Temp Pulse Resp BP O2 Del Method 97.1 F L 85 18 159/75 H Room Air 08/11/24 11:38 08/11/24 11:38 08/11/24 11:38 08/11/24 11:38 08/11/24 11:38 Oxygen Delivery Method Room Air Physical Exam Narrative Vascular: DP and PT pulses are palpable. CFT is brisk. Skin temperature great is warm to warm from proximal ankle to the distal digits to left lower extremity. Nonpitting edema appreciated to left lower extremity. No erythema. Neurological: Light touch intact. Patient does respond to painful stimuli. Dermatological: Intact muscle flap with split-thickness skin graft to the left leg. Graft harvest site is stable with granular base and no drainage or sign of infection. Excisional debridement down to and including subcutaneous tissue, fascia and muscle to the muscle flap of the left anterior leg with a pickup and #15 blade without incident. Predebridement measurement was 2.6 x 5.1 x 0.1 cm. Postdebridement measurement is 2.7 x 2.5 x 0.1 cm. Musculoskeletal: No pain on palpation of full-thickness ulceration to left tibia. No pain with calf compression. Debridement Note Debridement Note Debridement Free Text: Excisional debridement down to and including subcutaneous tissue, fascia and muscle to the muscle flap of the left anterior leg with a pickup and #15 blade without incident. Predebridement measurement was 2.6 x 5.1 x 0.1 cm. Postdebridement measurement is 2.7 x 2.5 x 0.1 cm. Post-Debridement Measurements and Additional Note: Post-Debridement Measurements/Treatment - Nurse 1 - General Ulcer Assessment Start: 08/11/24 11:37 Freq: Status: Active Protocol: WC.LOWEXT Activity Type Activity Date Activity User E-sign Co-sign Detail Recorded Client Recorded Date Recorded By Document 08/11/24 11:38 [email or web address] 08/11/24 11:59 KW 08/11/24 11:38 - Today's Visit Information Type of service Follow-up Visit (Physician/CUSTOMER SERVICE ADVOCATE ) Arrival Mode Wheelchair Patient Identification Verified (Name & Yes ) Vital Signs Temperature (97.8 F-99.1 F) 97.1 F L Temperature Source Temporal Pulse Rate (60-100) 85 Pulse Location Monitor Respiratory Rate (12-18) 18 Respiratory rate source Observation Oxygen Delivery Method Room Air Blood Pressure (90/60-120/80) 159/75 H Blood Pressure Mean (mm Hg) 103 Source Monitor Position Semi-Fowlers Blood Pressure Location Left Forearm History Since Last Visit- (Skip if this is Patient's initial visit) Have you changed medications since your No last visit? Any new allergies or adverse reactions No Had a fall/change in ADL's that may No increase risk of falls Signs or symptoms of abuse and/or No neglect since last visit Have you been in the hospital since your No last visit? Has dressing in place as prescribed Yes Has compression in place as prescribed Yes Has offloadiing in place as prescribed Yes Experienced any changes in pain level or No management Left Footwear No Footwear Right Footwear Regular Shoe Pain Scale: 0-10 Numeric Is Patient Pain Free? Yes WC - Nurse 1 - General Ulcer Measurement Start: 08/11/24 11:37 Freq: Status: Active Protocol: Activity Type Activity Date Activity User E-sign Co-sign Detail Recorded Client Recorded Date Recorded By Document 08/11/24 11:38 KW [id number] 08/11/24 11:59 KW 08/11/24 11:38 Wound Center Nurse 1 #9 LEFT Thigh Graft site -Combined with other wound No -Current Size (cm) - Length 6.4 -Current Size (cm) - Width 7.5 -Current Size (cm) - Depth 0.1 -Total Square Cm 48.00 -Date of Last Picture (Recall this 08/11/24 field) -Photo Taken Yes -Epithelialization None Present -Tunneling No -Undermining/Tunneling No -Circular Undermining No -Exudate Amt Large -Exudate Type Serosanguineous -Wound Margin Distinct, Outline Attached -Granulation Amt Large (67-100%) -Granulation Quality Red -Slough/Fibrin No -Texture (Mima-wound Skin Appearance) Assessed -Moisture (Mima-wound Skin Appearance) Assessed -Color (Mima-wound Skin Appearance) Assessed -Temperature (Mima-wound Skin No Abnormality Appearance) (Pt Warm) -Ulcer Cleansing Soap and Water -Foul Odor after Cleansing No #8 L Tenorio post-op -Current Size (cm) - Length 2.0 -Current Size (cm) - Width 4.0 -Current Size (cm) - Depth 0.4 -Total Square Cm 8.00 -Date of Last Picture (Recall this 08/11/24 field) -Photo Taken Yes -Epithelialization None Present -Tunneling No -Undermining/Tunneling No -Circular Undermining No -Exudate Amt Small -Exudate Type Serosanguineous -Wound Margin Distinct, Outline Attached -Texture (Mima-wound Skin Appearance) Assessed -Moisture (Mima-wound Skin Appearance) Assessed, Maceration -Color (Mima-wound Skin Appearance) Assessed -Temperature (Mima-wound Skin No Abnormality Appearance) (Pt Warm) -Tenderness on Palpation (Mima-wound No Skin Appearance) -Ulcer Cleansing Soap and Water -Foul Odor after Cleansing No WC - Nurse 2 - General Ulcer CM Notes Start: 08/11/24 11:37 Freq: Status: Active Protocol: Activity Type Activity Date Activity User E-sign Co-sign Detail Recorded Client Recorded Date Recorded By Document 08/11/24 12:07 JF [id number] 08/11/24 12:11 JF 08/11/24 12:07 Wound Center Nurse 2 #9 LEFT Thigh Graft site -Procedure Performed No -Wound/Ulcer Outcome Not Healed #8 L Tenorio post-op -Time 12:08 -Correct Patient Yes -Correct Side, Site, Position Yes -Correct Procedure Yes -Procedure Performed Yes -Type of Procedure Debridement -Clinical Debridement Muscle / Fascia -Tissue Removed Muscle -Post Debridement (cm) - Length 2.7 -Post Debridement (cm) - Width 5.2 -Post Debridement (cm) - Depth 0.1 -Total Square (Post) (cm) 14.04 -Area of Debridement (cm) - Length 2.7 -Area of Debridement (cm) - Width 5.2 -Total Square (Area) (cm) 14.04 -Tunneling No -Undermining/Tunneling No -Circular Undermining No -Wound/Ulcer Outcome Not Healed -Ulcer Cleansing Rinsed/ Irrigated with Saline -Foul Odor after Cleansing No -Bleeding Controlled with Pressure -Treatment Response Procedure Tolerated Well -Offloading No -Debridement - Muscle / Fascia, 1st Yes 20sq cm Pain Scale: 0-10 Numeric Is Patient Pain Free? Yes WC - Nurse 3 - General Ulcer D/C NN Start: 08/11/24 11:37 Freq: Status: Active Protocol: Activity Type Activity Date Activity User E-sign Co-sign Detail Recorded Client Recorded Date Recorded By Document 08/11/24 12:32 DL [id number] 08/11/24 12:34 DL 08/11/24 12:32 Wound Care Center Nurse 3 #9 LEFT Thigh Graft site -Ulcer Cleansing Soap and Water -Foul Odor after Cleansing No -Primary Dressing Applied C Hydrogel ($), NonAdherent Contact Layer -Primary Dressing Covered/Secured with Dry Gauze, Secured with Tape #8 L Tenorio post-op -Foul Odor after Cleansing No -Primary Dressing Applied NonAdherent Contact Layer -Other Dressing graft site -Primary Dressing Covered/Secured with Dry Gauze & Roll Gauze -Other Covering ABD Left -Compression Wrap Ino Wrap Treatment Response Procedure Tolerated Well Pain Scale: 0-10 Numeric Is Patient Pain Free? 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 All findings were discussed with the patient. All questions were answered to the patient's satisfaction. Excisional debridement down to and including subcutaneous tissue, fascia and muscle to the muscle flap of the left anterior leg with a pickup and #15 blade without incident. Predebridement measurement was 2.6 x 5.1 x 0.1 cm. Postdebridement measurement is 2.7 x 2.5 x 0.1 cm. Patient's muscle flap is still viable with intact split-thickness skin graft. Successful removal all devitalized split-thickness graft. The muscle flap and split-thickness skin graft was dressed with Adaptic, bolster dressing and compression wrap. Will hold off on the wound VAC for 1 week due to periwound maceration. The proximal harvest site was dressed with Adaptic, hydrogel, dry sterile dressing and Tegaderm. Educated patient continues to refrain from smoking as this will cause compromise to the muscle flap. Patient was understanding of this. Follow-up at the wound care center with Dr. Estevez in 1 week.
--- NOTE | 2024-08-13 11:49 | WC ---
PHOTO 08/11/24 LEFT THIGH
--- NOTE | 2024-08-13 11:51 | WC ---
PHOTO LEFT RODNEY 08/11/24
[2024-08-18 10:09] VITALS: BP 135/66; PULSE 87; RESP 18; TEMP 36.2
--- NOTE | 2024-08-18 13:25 | PN.PCM_ITS ---
History of Present Illness Date of Service: 08/18/24 Chief Complaint: nonhealing ulcer left anterior leg. History of Wound: Surgery 12/03/22 - surgical preparation left anterior leg with incision and drainage and excisional debridement nonhealing infected MRSA ulcer and partial ostectomy tibia for osteomyelitis. Wound care - Silver dressings followed by Tubigrip. Operative Tissue and bone cultures positive for MRSA. Treated with IV Vancomycin. Infectious Diseases consulted. Pathology - pieces of bone with chronic inflammation and reactive changes, negative for acute osteomyelitis. Prealbumin from 12/04/22 was 14.5. Encouraged nutritional supplementation with protein to help with the healing process. HgbA1c from 07/19/22 was 5.7. HgbA1c needs to be less than 8 for elective surgeries. MRI left leg done on08/08/22 - Sinus tracts from the marrow of the mid to distal tibial diaphysis to the skin at the medial aspect. Marrow edema throughout the majority of the tibia. Findings concerning for osteomyelitis. Arterial study completed 11/04/22. Triphasic Doppler waveforms at ankle level bilaterally. Right MARI by dorsalis pedis = 1.15.? Left MARI by dorsalis pedis = 1.28. There is no evidence of significant arterial occlusive disease in the lower extremities bilaterally. Today she denies complaints of fever. Her appetite is ok. Subjective Subjective Ms. Calvert is a 63-year-old female presenting the wound care center today for follow-up evaluation of muscle flap and split-thickness skin graft application to left lower extremity. She has been compliant with dressing changes and home health care for assistance. Patient however continues to smoke even though she was told not to. She denies trauma. Denies constitutional symptoms. No other pedal complaints at this time. Objective Data Objective Data Vital Signs: Vital Signs Temp Pulse Resp BP O2 Del Method 97.1 F L 87 18 135/66 H Room Air 08/18/24 10:08/18/24 10:08/18/24 10:08/18/24 10:08/11/24 11:38 Oxygen Delivery Method Room Air Physical Exam Narrative Vascular: DP and PT pulses are palpable. CFT is brisk. Skin temperature great is warm to warm from proximal ankle to the distal digits to left lower extremity. Nonpitting edema appreciated to left lower extremity. No erythema. Neurological: Light touch intact. Patient does respond to painful stimuli. Dermatological: Muscle flap shows to be necrotic at this time secondary to smoking. The split-thickness skin graft has over the muscle secondary to smoking. After removal of the muscle the defect of the full-thickness wound left leg is 2.3 x 1.4 x 0.8 cm. Excisional debridement down to and including subcutaneous tissue, fascia and muscle at the level of the muscle flap with a #15 blade and pickup without incident to left lower extremity. Predebridement measurement was eschar. Postdebridement measurement is 2.3 x 1.4 x 0.8 cm. Musculoskeletal: No pain on palpation of full-thickness ulceration to left tibia. No pain with calf compression. Debridement Note Debridement Note Debridement Free Text: Excisional debridement down to and including subcutaneous tissue, fascia and muscle at the level of the muscle flap with a #15 blade and pickup without incident to left lower extremity. Predebridement measurement was eschar. Postdebridement measurement is 2.3 x 1.4 x 0.8 cm. Post-Debridement Measurements and Additional Note: Post-Debridement Measurements/Treatment - Nurse 1 - General Ulcer Assessment Start: 08/11/24 11:37 Freq: Status: Active Protocol: WC.LOWEXT Activity Type Activity Date Activity User E-sign Co-sign Detail Recorded Client Recorded Date Recorded By Document 08/11/24 11:38 KW [id number] 08/11/24 11:59 KW Document 08/18/24 10:09 KW [id number] 08/18/24 10:22 KW 08/11/24 08/18/24 11:38 10:09 - Today's Visit Information Type of service Follow-up Visit Follow-up Visit (Physician/REAL ESTATE TEACHER (Physician/REAL ESTATE TEACHER ) ) Arrival Mode Wheelchair Wheelchair Accompanied by blue Patient Identification Verified (Name & Yes Yes ) Vital Signs Temperature (97.8 F-99.1 F) 97.1 F L 97.1 F L Temperature Source Temporal Temporal Pulse Rate (60-100) 85 87 Pulse Location Monitor Monitor Respiratory Rate (12-18) 18 18 Respiratory rate source Observation Observation Oxygen Delivery Method Room Air Blood Pressure (90/60-120/80) 159/75 H 135/66 H Blood Pressure Mean (mm Hg) 103 89 Source Monitor Monitor Position Semi-Fowlers Semi-Fowlers Blood Pressure Location Left Forearm Left Arm History Since Last Visit- (Skip if this is Patient's initial visit) Have you changed medications since your No No last visit? Any new allergies or adverse reactions No No Had a fall/change in ADL's that may No No increase risk of falls Signs or symptoms of abuse and/or No No neglect since last visit Have you been in the hospital since your No No last visit? Has dressing in place as prescribed Yes Yes Has compression in place as prescribed Yes Yes Has offloadiing in place as prescribed Yes Yes Experienced any changes in pain level or No No management Left Footwear No Footwear Regular Shoe Right Footwear Regular Shoe Regular Shoe Pain Scale: 0-10 Numeric Is Patient Pain Free? Yes Yes WC - Nurse 1 - General Ulcer Measurement Start: 08/11/24 11:37 Freq: Status: Active Protocol: Activity Type Activity Date Activity User E-sign Co-sign Detail Recorded Client Recorded Date Recorded By Document 08/11/24 11:38 KW [id number] 08/11/24 11:59 KW Document 08/18/24 10:09 KW [id number] 08/18/24 10:22 KW 08/11/24 08/18/24 11:38 10:09 Wound Center Nurse 1 #9 LEFT Thigh Graft site -Combined with other wound No -Current Size (cm) - Length 6.4 0.1 -Current Size (cm) - Width 7.5 0.1 -Current Size (cm) - Depth 0.1 0.1 -Total Square Cm 48.00 0.01 -Date of Last Picture (Recall this 08/11/24 field) -Photo Taken Yes -Epithelialization None Present -Tunneling No -Undermining/Tunneling No -Circular Undermining No -Exudate Amt Large None Present -Exudate Type Serosanguineous -Wound Margin Distinct, Outline Attached -Granulation Amt Large (67-100%) -Granulation Quality Red -Slough/Fibrin No -Texture (Mima-wound Skin Appearance) Assessed Assessed -Moisture (Mima-wound Skin Appearance) Assessed Assessed -Color (Mima-wound Skin Appearance) Assessed Assessed -Temperature (Mima-wound Skin No Abnormality No Abnormality Appearance) (Pt Warm) (Pt Warm) -Tenderness on Palpation (Mima-wound No Skin Appearance) -Ulcer Cleansing Soap and Water -Foul Odor after Cleansing No #8 L Tenorio post-op -Current Size (cm) - Length 2.0 2.5 -Current Size (cm) - Width 4.0 4 -Current Size (cm) - Depth 0.4 0.3 -Total Square Cm 8.00 10.0 -Date of Last Picture (Recall this 08/11/24 field) -Photo Taken Yes -Epithelialization None Present -Tunneling No -Undermining/Tunneling No -Circular Undermining No -Exudate Amt Small Small -Exudate Type Serosanguineous Serosanguineous -Wound Margin Distinct, Distinct, Outline Outline Attached Attached -Granulation Amt Small (1-33%) -Granulation Quality [place] -Necrosis Amt Large (67-100%) -Necrotic Tissue Type Adherent Slough -Texture (Mima-wound Skin Appearance) Assessed Assessed -Moisture (Mima-wound Skin Appearance) Assessed, Assessed Maceration -Color (Mima-wound Skin Appearance) Assessed Assessed -Temperature (Mima-wound Skin No Abnormality No Abnormality Appearance) (Pt Warm) (Pt Warm) -Tenderness on Palpation (Mima-wound No No Skin Appearance) -Ulcer Cleansing Soap and Water Soap and Water -Foul Odor after Cleansing No No WC - Nurse 2 - General Ulcer CM Notes Start: 08/11/24 11:37 Freq: Status: Active Protocol: Activity Type Activity Date Activity User E-sign Co-sign Detail Recorded Client Recorded Date Recorded By Document 08/11/24 12:07 [email or web address] [id number] 08/11/24 12:11 Document 08/18/24 10:31 JF [id number] 08/18/24 10:42 08/11/24 08/18/24 12:07 10:31 Wound Center Nurse 2 #9 LEFT Thigh Graft site -Correct Patient No -Correct Side, Site, Position No -Correct Procedure No -Procedure Performed No No -Post Debridement (cm) - Length 0 -Post Debridement (cm) - Width 0 -Post Debridement (cm) - Depth 0 -Total Square (Post) (cm) 0 -Area of Debridement (cm) - Length 0 -Area of Debridement (cm) - Width 0 -Total Square (Area) (cm) 0 -Wound/Ulcer Outcome Not Healed Healed- Epithelialized #8 L Tenorio post-op -Time 12:08 10:40 -Correct Patient Yes Yes -Correct Side, Site, Position Yes Yes -Correct Procedure Yes Yes -Procedure Performed Yes Yes -Type of Procedure Debridement Debridement -Clinical Debridement Muscle / Fascia Muscle / Fascia -Tissue Removed Muscle Muscle,Fascia -Post Debridement (cm) - Length 2.7 2.3 -Post Debridement (cm) - Width 5.2 1.4 -Post Debridement (cm) - Depth 0.1 0.8 -Total Square (Post) (cm) 14.04 3.22 -Area of Debridement (cm) - Length 2.7 2.3 -Area of Debridement (cm) - Width 5.2 1.4 -Total Square (Area) (cm) 14.04 3.22 -Tunneling No No -Undermining/Tunneling No No -Circular Undermining No -Wound/Ulcer Outcome Not Healed Not Healed -Ulcer Cleansing Rinsed/ Rinsed/ Irrigated with Irrigated with Saline Saline -Foul Odor after Cleansing No No -Bioengineered Tissue No -Bleeding Controlled with Pressure Pressure -Treatment Response Procedure Procedure Tolerated Well Tolerated Well -Offloading No No -Debridement - Muscle / Fascia, 1st Yes Yes 20sq cm Pain Scale: 0-10 Numeric Is Patient Pain Free? Yes Yes - Nurse 3 - General Ulcer D/C NN Start: 08/11/24 11:37 Freq: Status: Active Protocol: Activity Type Activity Date Activity User E-sign Co-sign Detail Recorded Client Recorded Date Recorded By Document 08/11/24 12:32 DL [id number] 08/11/24 12:34 DL Document 08/18/24 10:56 KW [id number] 08/18/24 10:56 KW 08/11/24 08/18/24 12:32 10:56 Wound Care Center Nurse 3 #9 LEFT Thigh Graft site -Ulcer Cleansing Soap and Water -Foul Odor after Cleansing No -Primary Dressing Applied C Hydrogel ($), NonAdherent Contact Layer -Primary Dressing Covered/Secured with Dry Gauze, Secured with Tape #8 L Tenorio post-op -Foul Odor after Cleansing No -Primary Dressing Applied NonAdherent Contact Layer -Other Dressing graft site -Primary Dressing Covered/Secured with Dry Gauze & Dry Gauze & Roll Gauze Roll Gauze, Secured with Tape -Other Covering ABD Left -Compression Wrap Ino Wrap Ino Wrap Treatment Response Procedure Tolerated Well Pain Scale: 0-10 Numeric Is Patient Pain Free? 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 All findings were discussed with the patient. All questions were answered to the patient's satisfaction. Excisional debridement down to and including subcutaneous tissue, fascia and muscle at the level of the muscle flap with a #15 blade and pickup without incident to left lower extremity. Predebridement measurement was eschar. Postdebridement measurement is 2.3 x 1.4 x 0.8 cm. The area was flushed and wiped clean and patted dry. Wet-to-dry dressing was applied followed by compression wrap. Orders were given to reapply the negative pressure wound VAC to left lower extremity. Stressed to the patient the need for smoking sensation but the patient is most likely unwilling to comply. Home health care will continue dressing changes the patient follows up in 1 week. Follow-up at the wound care center with Dr. Estevez in 1 week.
[2024-08-25 09:15] VITALS: BP 124/60; PULSE 90; RESP 18; TEMP 37.1
--- NOTE | 2024-08-25 11:25 | PN.PCM_ITS ---
History of Present Illness Date of Service: 08/25/24 Chief Complaint: nonhealing ulcer left anterior leg. History of Wound: Surgery 12/03/22 - surgical preparation left anterior leg with incision and drainage and excisional debridement nonhealing infected MRSA ulcer and partial ostectomy tibia for osteomyelitis. Wound care - Silver dressings followed by Tubigrip. Operative Tissue and bone cultures positive for MRSA. Treated with IV Vancomycin. Infectious Diseases consulted. Pathology - pieces of bone with chronic inflammation and reactive changes, negative for acute osteomyelitis. Prealbumin from 12/04/22 was 14.5. Encouraged nutritional supplementation with protein to help with the healing process. HgbA1c from 07/19/22 was 5.7. HgbA1c needs to be less than 8 for elective surgeries. MRI left leg done on08/08/22 - Sinus tracts from the marrow of the mid to distal tibial diaphysis to the skin at the medial aspect. Marrow edema throughout the majority of the tibia. Findings concerning for osteomyelitis. Arterial study completed 11/04/22. Triphasic Doppler waveforms at ankle level bilaterally. Right MARI by dorsalis pedis = 1.15.? Left MARI by dorsalis pedis = 1.28. There is no evidence of significant arterial occlusive disease in the lower extremities bilaterally. Today she denies complaints of fever. Her appetite is ok. Subjective Subjective Ms. Calvert is a 63-year-old female presenting with concern today follow-up evaluation of left leg ulceration status post muscle flap and split-thickness skin graft application. Patient is doing well. We did remove part of the muscle flap during her last visit secondary to failure. Patient still continues to smoke even though many discussions have been to quit. Patient states that she is still attempting to try. Blood sugar is well-controlled. Denies trauma. She also is getting wound VAC dressing changes through home health care. Denies constitutional symptoms. No other pedal complaints at this time. Objective Data Objective Data Vital Signs: Vital Signs Temp Pulse Resp BP O2 Del Method 98.7 F 90 18 124/60 H Room Air 08/25/24 09:15 08/25/24 09:15 08/25/24 09:15 08/25/24 09:15 08/25/24 09:15 Oxygen Delivery Method Room Air Physical Exam Narrative Vascular: DP and PT pulses are palpable. CFT is brisk. Skin temperature great is warm to warm from proximal ankle to the distal digits to left lower extremity. Nonpitting edema appreciated to left lower extremity. No erythema. Neurological: Light touch intact. Patient does respond to painful stimuli. Dermatological: Full-thickness wound with exposed muscle tendon to the anterior left leg. Wound measures 1.8 x 4.5 x 0.5 cm. Wound base is granular nature. No probe to bone. No drainage or malodor. Excisional debridement down to and including subcutaneous tissue, fascia and muscle with a #15 blade and pickup to the left anterior leg without incident. Predebridement measurement was 1.5 x 4.0 x 0.3 cm. Postdebridement measurement is 1.8 x 4.5 x 0.5 cm. Musculoskeletal: No pain on palpation of full-thickness ulceration to left tibia. No pain with calf compression. Debridement Note Debridement Note Debridement Free Text: Excisional debridement down to and including subcutaneous tissue, fascia and muscle with a #15 blade and pickup to the left anterior leg without incident. Predebridement measurement was 1.5 x 4.0 x 0.3 cm. Pos tdebridement measurement is 1.8 x 4.5 x 0.5 cm. Post-Debridement Measurements and Additional Note: Post-Debridement Measurements/Treatment - Nurse 1 - General Ulcer Assessment Start: 08/11/24 11:37 Freq: Status: Active Protocol: [email or web address] Activity Type Activity Date Activity User E-sign Co-sign Detail Recorded Client Recorded Date Recorded By Document 08/11/24 11:38 KW [id number] 08/11/24 11:59 KW Document 08/18/24 10:09 KW [id number] 08/18/24 10:22 KW Document 08/25/24 09:15 KW [id number] 08/25/24 09:26 KW 08/11/24 08/18/24 08/25/24 11:38 10:09 09:15 - Today's Visit Information Type of service Follow-up Visit Follow-up Visit Follow-up Visit (Physician/INSULATION BOARD COATER OPERATOR (Physician/INSULATION BOARD COATER OPERATOR (Physician/INSULATION BOARD COATER OPERATOR ) ) ) Arrival Mode Wheelchair Wheelchair Wheelchair Accompanied by blue Lim Patient Identification Verified (Name & Yes Yes Yes ) Vital Signs Temperature (97.8 F-99.1 F) 97.1 F L 97.1 F L 98.7 F Temperature Source Temporal Temporal Temporal Pulse Rate (60-100) 85 87 90 Pulse Location Monitor Monitor Monitor Respiratory Rate (12-18) 18 18 18 Respiratory rate source Observation Observation Observation Oxygen Delivery Method Room Air Room Air Blood Pressure (90/60-120/80) 159/75 H 135/66 H 124/60 H Blood Pressure Mean (mm Hg) 103 89 81 Source Monitor Monitor Monitor Position Semi-Fowlers Semi-Fowlers Semi-Fowlers Blood Pressure Location Left Forearm Left Arm Left Arm History Since Last Visit- (Skip if this is Patient's initial visit) Have you changed medications since your No No No last visit? Any new allergies or adverse reactions No No No Had a fall/change in ADL's that may No No No increase risk of falls Signs or symptoms of abuse and/or No No No neglect since last visit Have you been in the hospital since your No No No last visit? Has dressing in place as prescribed Yes Yes Yes Has compression in place as prescribed Yes Yes Yes Has offloadiing in place as prescribed Yes Yes N/A Experienced any changes in pain level or No No No management Left Footwear No Footwear Regular Shoe Regular Shoe Right Footwear Regular Shoe Regular Shoe Regular Shoe Pain Scale: 0-10 Numeric Is Patient Pain Free? Yes Yes Yes WC - Nurse 1 - General Ulcer Measurement Start: 08/11/24 11:37 Freq: Status: Active Protocol: Activity Type Activity Date Activity User E-sign Co-sign Detail Recorded Client Recorded Date Recorded By Document 08/11/24 11:38 KW [id number] 08/11/24 11:59 KW Document 08/18/24 10:09 KW [id number] 08/18/24 10:22 KW Document 08/25/24 09:15 KW [id number] 08/25/24 09:26 KW 08/11/24 08/18/24 08/25/24 11:38 10:09 09:15 Wound Center Nurse 1 #9 LEFT Thigh Graft site -Combined with other wound No -Current Size (cm) - Length 6.4 0.1 -Current Size (cm) - Width 7.5 0.1 -Current Size (cm) - Depth 0.1 0.1 -Total Square Cm 48.00 0.01 -Date of Last Picture (Recall this 08/11/24 field) -Photo Taken Yes -Epithelialization None Present -Tunneling No -Undermining/Tunneling No -Circular Undermining No -Exudate Amt Large None Present -Exudate Type Serosanguineous -Wound Margin Distinct, Outline Attached -Granulation Amt Large (67-100%) -Granulation Quality Red -Slough/Fibrin No -Texture (Mima-wound Skin Appearance) Assessed Assessed -Moisture (Mima-wound Skin Appearance) Assessed Assessed -Color (Mima-wound Skin Appearance) Assessed Assessed -Temperature (Mima-wound Skin No Abnormality No Abnormality Appearance) (Pt Warm) (Pt Warm) -Tenderness on Palpation (Mima-wound No Skin Appearance) -Ulcer Cleansing Soap and Water -Foul Odor after Cleansing No #8 L Tenorio post-op -Current Size (cm) - Length 2.0 2.5 2 -Current Size (cm) - Width 4.0 4 1.3 -Current Size (cm) - Depth 0.4 0.3 0.6 -Total Square Cm 8.00 10.0 2.6 -Date of Last Picture (Recall this 08/11/24 08/25/24 field) -Photo Taken Yes -Epithelialization None Present Medium 34-66% -Tunneling No -Undermining/Tunneling No -Circular Undermining No -Exudate Amt Small Small Small -Exudate Type Serosanguineous Serosanguineous Serosanguineous -Wound Margin Distinct, Distinct, Distinct, Outline Outline Outline Attached Attached Attached -Granulation Amt Small (1-33%) Small (1-33%) -Granulation Quality [place] -Necrosis Amt Large (67-100%) Large (67-100%) -Necrotic Tissue Type Adherent Slough Adherent Slough -Texture (Mima-wound Skin Appearance) Assessed Assessed Assessed -Moisture (Mima-wound Skin Appearance) Assessed, Assessed Assessed Maceration -Color (Mima-wound Skin Appearance) Assessed Assessed Assessed, Erythema -Temperature (Mima-wound Skin No Abnormality No Abnormality No Abnormality Appearance) (Pt Warm) (Pt Warm) (Pt Warm) -Tenderness on Palpation (Mima-wound No No No Skin Appearance) -Ulcer Cleansing Soap and Water Soap and Water Soap and Water -Foul Odor after Cleansing No No No -Anesthetic Used 4% Lidocaine Solution WC - Nurse 2 - General Ulcer CM Notes Start: 08/11/24 11:37 Freq: Status: Active Protocol: Activity Type Activity Date Activity User E-sign Co-sign Detail Recorded Client Recorded Date Recorded By Document 08/11/24 12:07 [id number] 08/11/24 12:11 Document 08/18/24 10:31 [id number] 08/18/24 10:42 Document 08/25/24 09:35 [id number] 08/25/24 09:44 08/11/24 08/18/24 08/25/24 12:07 10:31 09:35 Wound Center Nurse 2 #9 LEFT Thigh Graft site -Correct Patient No -Correct Side, Site, Position No -Correct Procedure No -Procedure Performed No No -Post Debridement (cm) - Length 0 -Post Debridement (cm) - Width 0 -Post Debridement (cm) - Depth 0 -Total Square (Post) (cm) 0 -Area of Debridement (cm) - Length 0 -Area of Debridement (cm) - Width 0 -Total Square (Area) (cm) 0 -Wound/Ulcer Outcome Not Healed Healed- Epithelialized #8 L Tenorio post-op -Time 12:08 10:40 09:42 -Correct Patient Yes Yes Yes -Correct Side, Site, Position Yes Yes Yes -Correct Procedure Yes Yes Yes -Procedure Performed Yes Yes Yes -Type of Procedure Debridement Debridement Debridement -Clinical Debridement Muscle / Fascia Muscle / Fascia Muscle / Fascia -Tissue Removed Muscle Muscle,Fascia Muscle,Fascia -Post Debridement (cm) - Length 2.7 2.3 1.8 -Post Debridement (cm) - Width 5.2 1.4 4.5 -Post Debridement (cm) - Depth 0.1 0.8 0.5 -Total Square (Post) (cm) 14.04 3.22 8.10 -Area of Debridement (cm) - Length 2.7 2.3 1.8 -Area of Debridement (cm) - Width 5.2 1.4 4.5 -Total Square (Area) (cm) 14.04 3.22 8.10 -Tunneling No No No -Undermining/Tunneling No No No -Circular Undermining No No -Wound/Ulcer Outcome Not Healed Not Healed Not Healed -Ulcer Cleansing Rinsed/ Rinsed/ Rinsed/ Irrigated with Irrigated with Irrigated with Saline Saline Saline -Foul Odor after Cleansing No No No -Bioengineered Tissue No No -Bleeding Controlled with Pressure Pressure Pressure -Treatment Response Procedure Procedure Procedure Tolerated Well Tolerated Well Tolerated Well -Offloading No No No -Debridement - Muscle / Fascia, 1st Yes Yes Yes 20sq cm Pain Scale: 0-10 Numeric Is Patient Pain Free? Yes Yes Yes - Nurse 3 - General Ulcer D/C NN Start: 08/11/24 11:37 Freq: Status: Active Protocol: Activity Type Activity Date Activity User E-sign Co-sign Detail Recorded Client Recorded Date Recorded By Document 08/11/24 12:32 DL [id number] 08/11/24 12:34 DL Document 08/18/24 10:56 KW [id number] 08/18/24 10:56 KW Document 08/25/24 09:47 KW [id number] 08/25/24 10:00 KW 08/11/24 08/18/24 08/25/24 12:32 10:56 09:47 Wound Care Center Nurse 3 #9 LEFT Thigh Graft site -Ulcer Cleansing Soap and Water -Foul Odor after Cleansing No -Primary Dressing Applied C Hydrogel ($), NonAdherent Contact Layer -Primary Dressing Covered/Secured with Dry Gauze, Secured with Tape #8 L Tenorio post-op -Ulcer Cleansing Not Cleansed -Foul Odor after Cleansing No No -Negative Pressure is Continuous -Primary Dressing Applied NonAdherent Contact Layer -Other Dressing graft site -Primary Dressing Covered/Secured with Dry Gauze & Dry Gauze & Roll Gauze Roll Gauze, Secured with Tape -Other Covering ABD -NPWT Application Charge NPWT & Debridement (nc ) Left -Lotion applied to leg before No compression wrap -Compression Wrap Ino Wrap Ino Wrap Ino Wrap Treatment Response Procedure Tolerated Well Pain Scale: 0-10 Numeric Is Patient Pain Free? Yes Yes Yes - Visit Discharge Discharge Condition Stable Stable Stable Ambulatory Status Ambulatory, Wheelchair Wheelchair Wheelchair Transportation Private Auto Private Auto Medication Reconcilliation completed & No provided to patient/care provider Clinical Summary of Care Provided Yes Assessment/Plan Assessment/Plan (1) Non-pressure chronic ulcer of other part of left lower leg with necrosis of muscle: CODE(S): L97.823 - Non-pressure chronic ulcer of other part of left lower leg with necrosis of muscle PLAN: Patient was examined and evaluated. All findings were discussed with the patient. All questions were answered to the patient's satisfaction. Excisional debridement down to and including subcutaneous tissue, fascia and mus emerson with a #15 blade and pickup to the left anterior leg without incident. Predebridement measurement was 1.5 x 4.0 x 0.3 cm. Postdebridement measurement is 1.8 x 4.5 x 0.5 cm. The area was flushed and wiped clean and patted dry. Negative pressure wound VAC was applied to the anterior left leg per the design engineer agricultural equipment's recommendation and set 125 mmHg continuous flow. Patient will have every other day wound VAC changes by home health care. Educated the patient to continue to try smoking cessation and she runs the risks of delayed healing and ultimately runs the risk of below-knee amputation to left lower extremity. The patient will be giving 1 last pain prescription to be taken twice daily for the next 7 days along with vitamin D and calcium and vitamin C. Will begin authorization to the patient's insurance for amniotic skin graft substitute as this will aid in helping the patient's full-thickness wound to heal. Follow-up at the wound care center with Dr. Estevez in 1 week.
--- NOTE | 2024-08-26 09:13 | WC ---
PHOTO 08/25/24 LEFT RODNEY POST OP
[2024-08-31 08:27] VITALS: BP 136/72; PULSE 102; RESP 16; TEMP 37.3
--- NOTE | 2024-08-31 09:35 | PN.PCM_ITS ---
History of Present Illness Date of Service: 08/31/24 Chief Complaint: nonhealing ulcer left anterior leg. History of Wound: Surgery 12/03/22 - surgical preparation left anterior leg with incision and drainage and excisional debridement nonhealing infected MRSA ulcer and partial ostectomy tibia for osteomyelitis. Wound care - Silver dressings followed by Tubigrip. Operative Tissue and bone cultures positive for MRSA. Treated with IV Vancomycin. Infectious Diseases consulted. Pathology - pieces of bone with chronic inflammation and reactive changes, negative for acute osteomyelitis. Prealbumin from 12/04/22 was 14.5. Encouraged nutritional supplementation with protein to help with the healing process. HgbA1c from 07/19/22 was 5.7. HgbA1c needs to be less than 8 for elective surgeries. MRI left leg done on08/08/22 - Sinus tracts from the marrow of the mid to distal tibial diaphysis to the skin at the medial aspect. Marrow edema throughout the majority of the tibia. Findings concerning for osteomyelitis. Arterial study completed 11/04/22. Triphasic Doppler waveforms at ankle level bilaterally. Right MARI by dorsalis pedis = 1.15.? Left MARI by dorsalis pedis = 1.28. There is no evidence of significant arterial occlusive disease in the lower extremities bilaterally. Today she denies complaints of fever. Her appetite is ok. Subjective Subjective Ms. Calvert is a 63-year-old female presenting to wound care center today for follow-up evaluation to the left anterior leg full-thickness wound. Patient has been doing well with wound VAC as well as getting her wound VAC changes through home health care. She has slowed down on her smoking. She admits improvement to the wound. She is taking her prescribed oral antibiotic. She denies trauma. Denies constitutional symptoms. Other pedal complaints at this time. Objective Data Objective Data Vital Signs: Vital Signs Temp Pulse Resp BP O2 Del Method 99.1 F 102 H 16 136/72 H Room Air 08/31/24 08:27 08/31/24 08:27 08/31/24 08:27 08/31/24 08:27 08/31/24 08:27 Oxygen Delivery Method Room Air Lab / Micro Data Micro: Microbiology 08/25/24 09:40 Wound - Leg, Left Gram Stain - Final 08/25/24 09:40 Wound - Leg, Left Wound Culture - Preliminary Serratia marcescens Pasteurella multocida Alpha hemolytic organism 08/25/24 09:40 Wound - Leg, Left Anaerobic Culture - Final No anaerobic bacteria isolated. Physical Exam Narrative Vascular: DP and PT pulses are palpable. CFT is brisk. Skin temperature great is warm to warm from proximal ankle to the distal digits to left lower extremity. Nonpitting edema appreciated to left lower extremity. No erythema. Neurological: Light touch intact. Patient does respond to painful stimuli. Dermatological: Full-thickness wound with exposed muscle tendon to the anterior left leg. Wound measures 1.7 x 4.5 x 0.7 cm. Wound base is granular nature. No probe to bone. No drainage or malodor. Excisional debridement down to and including subcutaneous tissue, fascia and muscle with a #15 blade and pickup to the left anterior leg without incident. Predebridement measurement was 1.6 x 4.4 x 0.5 cm. Postdebridement measurement is 1.7 x 4.5 x 0.7 cm. EpiCord 2.0 x 3.0 cm graft was applied to the left leg full-thickness ulceration with 100% use. First application. The graft site was free and clear of any infection. The wound/skin graft substitute was dressed with nonadherent bandage secured in place with Steri-Strips followed by negative pressure wound VAC sent to 125 mmHg followed by dry sterile dressing compression wrap to the left lower extremity. Musculoskeletal: No pain on palpation of full-thickness ulceration to left tibia . No pain with calf compression. Debridement Note Debridement Note Debridement Free Text: Excisional debridement down to and including subcutaneous tissue, fascia and muscle with a #15 blade and pickup to the left anterior leg without incident. Predebridement measurement was 1.6 x 4.4 x 0.5 cm. Postdebridement measurement is 1.7 x 4.5 x 0.7 cm. EpiCord 2.0 x 3.0 cm graft was applied to the left leg full-thickness ulceration with 100% use. First application. The graft site was free and clear of any i nfection. The wound/skin graft substitute was dressed with nonadherent bandage secured in place with Steri-Strips followed by negative pressure wound VAC sent to 125 mmHg followed by dry sterile dressing compression wrap to the left lower extremity. Post-Debridement Measurements and Additional Note: Post-Debridement Measurements/Treatment WC - Nurse 1 - General Ulcer Assessment Start: 08/11/24 11:37 Freq: Status: Active Protocol: WC.LOWEXT Activity Type Activity Date Activity User E-sign Co-sign Detail Recorded Client Recorded Date Recorded By Document 08/11/24 11:38 KW [id number] 08/11/24 11:59 KW Document 08/18/24 10:09 KW [id number] 08/18/24 10:22 KW Document 08/25/24 09:15 KW [id number] 08/25/24 09:26 KW Document 08/31/24 08:27 BMF [id number] 08/31/24 08:33 BMF 08/11/24 08/18/24 08/25/24 11:38 10:09 09:15 WC - Today's Visit Information Type of service Follow-up Visit Follow-up Visit Follow-up Visit (Physician/TEMPORARY ADMINISTRATIVE ASSISTANT (Physician/TEMPORARY ADMINISTRATIVE ASSISTANT (Physician/TEMPORARY ADMINISTRATIVE ASSISTANT ) ) ) Arrival Mode Wheelchair Wheelchair Wheelchair Transfer Assistance Accompanied by blue Lim Patient Identification Verified (Name & Yes Yes Yes ) Vital Signs Temperature (97.8 F-99.1 F) 97.1 F L 97.1 F L 98.7 F Temperature Source Temporal Temporal Temporal Pulse Rate (60-100) 85 87 90 Pulse Location Monitor Monitor Monitor Respiratory Rate (12-18) 18 18 18 Respiratory rate source Observation Observation Observation Oxygen Delivery Method Room Air Room Air Blood Pressure (90/60-120/80) 159/75 H 135/66 H 124/60 H Blood Pressure Mean (mm Hg) 103 89 81 Source Monitor Monitor Monitor Position Semi-Fowlers Semi-Fowlers Semi-Fowlers Blood Pressure Location Left Forearm Left Arm Left Arm History Since Last Visit- (Skip if this is Patient's initial visit) Have you changed medications since your No No No last visit? Any new allergies or adverse reactions No No No Had a fall/change in ADL's that may No No No increase risk of falls Signs or symptoms of abuse and/or No No No neglect since last visit Have you been in the hospital since your No No No last visit? Has dressing in place as prescribed Yes Yes Yes Has compression in place as prescribed Yes Yes Yes Has offloadiing in place as prescribed Yes Yes N/A Experienced any changes in pain level or No No No management Left Footwear No Footwear Regular Shoe Regular Shoe Right Footwear Regular Shoe Regular Shoe Regular Shoe Other Footwear Pain Scale: 0-10 Numeric Is Patient Pain Free? Yes Yes Yes 08/31/24 08:27 WC - Today's Visit Information Type of service Follow-up Visit (Physician/TEMPORARY ADMINISTRATIVE ASSISTANT ) Arrival Mode Wheelchair Transfer Assistance None Accompanied by boyfriend Patient Identification Verified (Name & Yes ) Vital Signs Temperature (97.8 F-99.1 F) 99.1 F Temperature Source Temporal Pulse Rate (60-100) 102 H Pulse Location Monitor Respiratory Rate (12-18) 16 Respiratory rate source Observation Oxygen Delivery Method Room Air Blood Pressure (90/60-120/80) 136/72 H Blood Pressure Mean (mm Hg) 93 Source Monitor Position Sitting Blood Pressure Location Right Arm History Since Last Visit- (Skip if this is Patient's initial visit) Have you changed medications since your No last visit? Any new allergies or adverse reactions No Had a fall/change in ADL's that may No increase risk of falls Signs or symptoms of abuse and/or No neglect since last visit Have you been in the hospital since your No last visit? Has dressing in place as prescribed Yes Has compression in place as prescribed N/A Has offloadiing in place as prescribed N/A Experienced any changes in pain level or No management Left Footwear No Footwear Right Footwear Regular Shoe Other Footwear ino only on the left Pain Scale: 0-10 Numeric Is Patient Pain Free? Yes - Nurse 1 - General Ulcer Measurement Start: 08/11/24 11:37 Freq: Status: Active Protocol: Activity Type Activity Date Activity User E-sign Co-sign Detail Recorded Client Recorded Date Recorded By Document 08/11/24 11:38 KW [id number] 08/11/24 11:59 KW Document 08/18/24 10:09 KW [id number] 08/18/24 10:22 KW Document 08/25/24 09:15 KW [id number] 08/25/24 09:26 KW Document 08/31/24 08:27 BM [id number] 08/31/24 08:33 BMF 08/11/24 08/18/24 08/25/24 11:38 10:09 09:15 Wound Center Nurse 1 #9 LEFT Thigh Graft site -Combined with other wound No -Current Size (cm) - Length 6.4 0.1 -Current Size (cm) - Width 7.5 0.1 -Current Size (cm) - Depth 0.1 0.1 -Total Square Cm 48.00 0.01 -Date of Last Picture (Recall this 08/11/24 field) -Photo Taken Yes -Epithelialization None Present -Tunneling No -Undermining/Tunneling No -Circular Undermining No -Exudate Amt Large None Present -Exudate Type Serosanguineous -Wound Margin Distinct, Outline Attached -Granulation Amt Large (67-100%) -Granulation Quality Red -Slough/Fibrin No -Texture (Mima-wound Skin Appearance) Assessed Assessed -Moisture (Mima-wound Skin Appearance) Assessed Assessed -Color (Mima-wound Skin Appearance) Assessed Assessed -Temperature (Mima-wound Skin No Abnormality No Abnormality Appearance) (Pt Warm) (Pt Warm) -Tenderness on Palpation (Mima-wound No Skin Appearance) -Ulcer Cleansing Soap and Water -Foul Odor after Cleansing No #8 L Tenorio post-op -Combined with other wound -Current Size (cm) - Length 2.0 2.5 2 -Current Size (cm) - Width 4.0 4 1.3 -Current Size (cm) - Depth 0.4 0.3 0.6 -Total Square Cm 8.00 10.0 2.6 -Date of Last Picture (Recall this 08/11/24 08/25/24 field) -Photo Taken Yes -Epithelialization None Present Medium 34-66% -Tunneling No -Undermining/Tunneling No -Circular Undermining No -Exudate Amt Small Small Small -Exudate Type Serosanguineous Serosanguineous Serosanguineous -Wound Margin Distinct, Distinct, Distinct, Outline Outline Outline Attached Attached Attached -Granulation Amt Small (1-33%) Small (1-33%) -Granulation Quality [place] -Slough/Fibrin -Necrosis Amt Large (67-100%) Large (67-100%) -Necrotic Tissue Type Adherent Slough Adherent Slough -Texture (Mima-wound Skin Appearance) Assessed Assessed Assessed -Moisture (Mima-wound Skin Appearance) Assessed, Assessed Assessed Maceration -Color (Mima-wound Skin Appearance) Assessed Assessed Assessed, Erythema -Temperature (Mima-wound Skin No Abnormality No Abnormality No Abnormality Appearance) (Pt Warm) (Pt Warm) (Pt Warm) -Tenderness on Palpation (Mima-wound No No No Skin Appearance) -Ulcer Cleansing Soap and Water Soap and Water Soap and Water -Foul Odor after Cleansing No No No -Anesthetic Used 4% Lidocaine Solution Lower Limb Edema Present 08/31/24 08:27 Wound Center Nurse 1 #9 LEFT Thigh Graft site -Combined with other wound -Current Size (cm) - Length -Current Size (cm) - Width -Current Size (cm) - Depth -Total Square Cm -Date of Last Picture (Recall this field) -Photo Taken -Epithelialization -Tunneling -Undermining/Tunneling -Circular Undermining -Exudate Amt -Exudate Type -Wound Margin -Granulation Amt -Granulation Quality -Slough/Fibrin -Texture (Mima-wound Skin Appearance) -Moisture (Mima-wound Skin Appearance) -Color (Mima-wound Skin Appearance) -Temperature (Mima-wound Skin Appearance) -Tenderness on Palpation (Mima-wound Skin Appearance) -Ulcer Cleansing -Foul Odor after Cleansing #8 L Tenorio post-op -Combined with other wound No -Current Size (cm) - Length 1.6 -Current Size (cm) - Width 4.8 -Current Size (cm) - Depth 0.1 -Total Square Cm 7.68 -Date of Last Picture (Recall this 08/31/24 field) -Photo Taken Yes -Epithelialization Small 1-33% -Tunneling No -Undermining/Tunneling No -Circular Undermining No -Exudate Amt Medium -Exudate Type Serosanguineous -Wound Margin Distinct, Outline Attached -Granulation Amt Medium (34-66%) -Granulation Quality Red -Slough/Fibrin Yes -Necrosis Amt Medium (34-66%) -Necrotic Tissue Type Adherent Slough -Texture (Mima-wound Skin Appearance) Assessed -Moisture (Mima-wound Skin Appearance) Assessed -Color (Mima-wound Skin Appearance) Assessed -Temperature (Mima-wound Skin No Abnormality Appearance) (Pt Warm) -Tenderness on Palpation (Mima-wound No Skin Appearance) -Ulcer Cleansing Soap and Water -Foul Odor after Cleansing No -Anesthetic Used 4% Lidocaine Solution Lower Limb Edema Present Yes WC - Nurse 2 - General Ulcer CM Notes Start: 08/11/24 11:37 Freq: Status: Active Protocol: Activity Type Activity Date Activity User E-sign Co-sign Detail Recorded Client Recorded Date Recorded By Document 08/11/24 12:07 [id number] 08/11/24 12:11 Document 08/18/24 10:31 [id number] 08/18/24 10:42 Document 08/25/24 09:35 [id number] 08/25/24 09:44 Document 08/31/24 09:11 [id number] 08/31/24 09:13 JF 08/11/24 08/18/24 08/25/24 12:07 10:31 09:35 Wound Center Nurse 2 #9 LEFT Thigh Graft site -Correct Patient No -Correct Side, Site, Position No -Correct Procedure No -Procedure Performed No No -Post Debridement (cm) - Length 0 -Post Debridement (cm) - Width 0 -Post Debridement (cm) - Depth 0 -Total Square (Post) (cm) 0 -Area of Debridement (cm) - Length 0 -Area of Debridement (cm) - Width 0 -Total Square (Area) (cm) 0 -Wound/Ulcer Outcome Not Healed Healed- Epithelialized #8 L Tenorio post-op -Time 12:08 10:40 09:42 -Correct Patient Yes Yes Yes -Correct Side, Site, Position Yes Yes Yes -Correct Procedure Yes Yes Yes -Procedure Performed Yes Yes Yes -Type of Procedure Debridement Debridement Debridement -Clinical Debridement Muscle / Fascia Muscle / Fascia Muscle / Fascia -Tissue Removed Muscle Muscle,Fascia Muscle,Fascia -Post Debridement (cm) - Length 2.7 2.3 1.8 -Post Debridement (cm) - Width 5.2 1.4 4.5 -Post Debridement (cm) - Depth 0.1 0.8 0.5 -Total Square (Post) (cm) 14.04 3.22 8.10 -Area of Debridement (cm) - Length 2.7 2.3 1.8 -Area of Debridement (cm) - Width 5.2 1.4 4.5 -Total Square (Area) (cm) 14.04 3.22 8.10 -Tunneling No No No -Undermining/Tunneling No No No -Circular Undermining No No -Wound/Ulcer Outcome Not Healed Not Healed Not Healed -Ulcer Cleansing Rinsed/ Rinsed/ Rinsed/ Irrigated with Irrigated with Irrigated with Saline Saline Saline -Foul Odor after Cleansing No No No -Bioengineered Tissue No No -Type of Bioengineered Tissue -Expiration Date -Product Lot Number -Percent Used -Lot number of Saline Used -Bleeding Controlled with Pressure Pressure Pressure -Treatment Response Procedure Procedure Procedure Tolerated Well Tolerated Well Tolerated Well -Offloading No No No -Debridement - Subq, 1st 20sq cm -Debridement - Muscle / Fascia, 1st Yes Yes Yes 20sq cm -Apply Skin Sub - 1st 25 sq cm - Legs -Epicord (per sq cm) Pain Scale: 0-10 Numeric Is Patient Pain Free? Yes Yes Yes 08/31/24 09:11 Wound Center Nurse 2 #9 LEFT Thigh Graft site -Correct Patient -Correct Side, Site, Position -Correct Procedure -Procedure Performed -Post Debridement (cm) - Length -Post Debridement (cm) - Width -Post Debridement (cm) - Depth -Total Square (Post) (cm) -Area of Debridement (cm) - Length -Area of Debridement (cm) - Width -Total Square (Area) (cm) -Wound/Ulcer Outcome #8 L Tenorio post-op -Time 09:11 -Correct Patient Yes -Correct Side, Site, Position Yes -Correct Procedure Yes -Procedure Performed Yes -Type of Procedure Debridement -Clinical Debridement Muscle / Fascia -Tissue Removed Muscle -Post Debridement (cm) - Length 1.7 -Post Debridement (cm) - Width 4.5 -Post Debridement (cm) - Depth 0.7 -Total Square (Post) (cm) 7.65 -Area of Debridement (cm) - Length 1.7 -Area of Debridement (cm) - Width 4.5 -Total Square (Area) (cm) 7.65 -Tunneling No -Undermining/Tunneling No -Circular Undermining No -Wound/Ulcer Outcome Not Healed -Ulcer Cleansing Rinsed/ Irrigated with Saline -Foul Odor after Cleansing No -Bioengineered Tissue Yes -Type of Bioengineered Tissue Epicord -Expiration Date 02/06/29 -Product Lot Number [id number] -Percent Used 100 -Lot number of Saline Used [id number] -Bleeding Controlled with Pressure -Treatment Response Procedure Tolerated Well -Offloading No -Debridement - Subq, 1st 20sq cm No -Debridement - Muscle / Fascia, 1st No 20sq cm -Apply Skin Sub - 1st 25 sq cm - Legs 1 -Epicord (per sq cm) 6 Pain Scale: 0-10 Numeric Is Patient Pain Free? Yes WC - Nurse 3 - General Ulcer D/C NN Start: 08/11/24 11:37 Freq: Status: Active Protocol: Activity Type Activity Date Activity User E-sign Co-sign Detail Recorded Client Recorded Date Recorded By Document 08/11/24 12:32 DL [id number] 08/11/24 12:34 DL Document 08/18/24 10:56 KW [id number] 08/18/24 10:56 KW Document 08/25/24 09:47 KW [id number] 08/25/24 10:00 KW Document 08/31/24 09:33 BMF [id number] 08/31/24 09:34 BMF 08/11/24 08/18/24 08/25/24 12:32 10:56 09:47 Wound Care Center Nurse 3 #9 LEFT Thigh Graft site -Ulcer Cleansing Soap and Water -Foul Odor after Cleansing No -Primary Dressing Applied C Hydrogel ($), NonAdherent Contact Layer -Primary Dressing Covered/Secured with Dry Gauze, Secured with Tape #8 L Tenorio post-op -Ulcer Cleansing Not Cleansed -Foul Odor after Cleansing No No -Negative Pressure Wound Therapy -Setting (mmHg) -Negative Pressure is Continuous -Primary Dressing Applied NonAdherent Contact Layer -Other Dressing graft site -Primary Dressing Covered/Secured with Dry Gauze & Dry Gauze & Roll Gauze Roll Gauze, Secured with Tape -Other Covering ABD -NPWT Application Charge NPWT & Debridement (nc ) Left -Lotion applied to leg before No compression wrap -Compression Wrap Ino Wrap Ino Wrap Ino Wrap Treatment Response Procedure Tolerated Well Pain Scale: 0-10 Numeric Is Patient Pain Free? Yes Yes Yes WC - Visit Discharge Discharge Condition Stable Stable Stable Ambulatory Status Ambulatory, Wheelchair Wheelchair Wheelchair Transportation Private Auto Private Auto Accompanied by Medication Reconcilliation completed & No provided to patient/care provider Clinical Summary of Care Provided Yes Facility Type 08/31/24 09:33 Wound Care Center Nurse 3 #9 LEFT Thigh Graft site -Ulcer Cleansing -Foul Odor after Cleansing -Primary Dressing Applied -Primary Dressing Covered/Secured with #8 L Tenorio post-op -Ulcer Cleansing -Foul Odor after Cleansing -Negative Pressure Wound Therapy Continue -Setting (mmHg) 125 -Negative Pressure is Continuous -Primary Dressing Applied -Other Dressing epi under vac -Primary Dressing Covered/Secured with -Other Covering -NPWT Application Charge NPWT & Debridement (nc ) Left -Lotion applied to leg before compression wrap -Compression Wrap Ino Wrap Treatment Response Procedure Tolerated Well Pain Scale: 0-10 Numeric Is Patient Pain Free? Yes WC - Visit Discharge Discharge Condition Stable Ambulatory Status Wheelchair Transportation Accompanied by boyfriend Medication Reconcilliation completed & provided to patient/care provider Clinical Summary of Care Provided Facility Type Home Health Assessment/Plan Assessment/Plan (1) Idiopathic chronic venous hypertension of left leg with ulcer: CODE(S): I87.312 - Chronic venous hypertension (idiopathic) with ulcer of left lower extremity; L97.929 - Non-pressure chronic ulcer of unspecified part of left lower leg with unspecified severity PLAN: Patient was examined and evaluated. All findings were discussed with the patient. All questions were answered to the patient's satisfaction. Excisional debridement down to and including subcutaneous tissue, fascia and muscle with a #15 blade and pickup to the left anterior leg without incident. Predebridement measurement was 1.5 x 4.0 x 0.3 cm. Postdebridement measurement is 1.8 x 4.5 x 0.5 cm. The area was flushed and wiped clean and patted dry. Neg ative pressure wound VAC was applied to the anterior left leg per the cosmetic surgeon's recommendation and set 125 mmHg continuous flow. Patient will have every other day wound VAC changes by home health care. Orders given for home health care for VAC changes. Educated the patient to continue to try smoking cessation and she runs the risks of delayed healing and ultimately runs the risk of below-knee amputation to left lower extremity. Follow-up at the wound care center with Dr. Estevez in 1 week. 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
--- NOTE | 2024-09-02 09:18 | WC ---
PHOTO 08/31/24 LEFT RODNEY
[2024-09-07 09:02] VITALS: BP 123/67; PULSE 85; RESP 16; TEMP 36.1
--- NOTE | 2024-09-07 11:04 | PN.PCM_ITS ---
History of Present Illness Date of Service: 09/07/24 Chief Complaint: nonhealing ulcer left anterior leg. History of Wound: Surgery 12/03/22 - surgical preparation left anterior leg with incision and drainage and excisional debridement nonhealing infected MRSA ulcer and partial ostectomy tibia for osteomyelitis. Wound care - Silver dressings followed by Tubigrip. Operative Tissue and bone cultures positive for MRSA. Treated with IV Vancomycin. Infectious Diseases consulted. Pathology - pieces of bone with chronic inflammation and reactive changes, negative for acute osteomyelitis. Prealbumin from 12/04/22 was 14.5. Encouraged nutritional supplementation with protein to help with the healing process. HgbA1c from 07/19/22 was 5.7. HgbA1c needs to be less than 8 for elective surgeries. MRI left leg done on08/08/22 - Sinus tracts from the marrow of the mid to distal tibial diaphysis to the skin at the medial aspect. Marrow edema throughout the majority of the tibia. Findings concerning for osteomyelitis. Arterial study completed 11/04/22. Triphasic Doppler waveforms at ankle level bilaterally. Right MARI by dorsalis pedis = 1.15.? Left MARI by dorsalis pedis = 1.28. There is no evidence of significant arterial occlusive disease in the lower extremities bilaterally. Today she denies complaints of fever. Her appetite is ok. Subjective Subjective Ms. Calvert is a 63-year-old female presented wound care center today follow-up evaluation of full-thickness wound and graft application to the left anterior leg. She has been compliant with wound VAC changes per home health care. She still admits to smoking. She is making attempts to cut back. Denies trauma. Denies constitutional symptoms. No other pedal complaints at this time. Objective Data Objective Data Vital Signs: Vital Signs Temp Pulse Resp BP O2 Del Method 96.9 F L 85 16 123/67 H Room Air 09/07/24 09:02 09/07/24 09:02 09/07/24 09:02 09/07/24 09:02 09/07/24 09:02 Oxygen Delivery Method Room Air Lab / Micro Data Micro: Microbiology 08/25/24 09:40 Wound - Leg, Left Gram Stain - Final 08/25/24 09:40 Wound - Leg, Left Wound Culture - Final Serratia marcescens Pasteurella multocida Streptococcus mitis/ oralis 08/25/24 09:40 Wound - Leg, Left Anaerobic Culture - Final No anaerobic bacteria isolated. Physical Exam Narrative Vascular: DP and PT pulses are palpable. CFT is brisk. Skin temperature great is warm to warm from proximal ankle to the distal digits to left lower extremity. Nonpitting edema appreciated to left lower extremity. No erythema. Neurological: Light touch intact. Patient does respond to painful stimuli. Dermatological: Full-thickness wound with exposed muscle tendon to the anterior left leg. Wound measures 1.8 x 4.5 x 0.6 cm. Wound base is granular nature. No probe to bone. No drainage or malodor. Excisional debridement down to and including subcutaneous tissue, fascia and muscle with a number 3 mm dermal curette to the left anterior leg without incident. Predebridement measurement was 1.5 x 4.3 x 0.4 cm.. Postdebridement measurement is 1.8 x 4.5 x 0.6 cm. EpiCord 2.0 x 3.0 cm graft was applied to the left leg full-thickness ulceration with 100% use. Second application. The graft site was free and clear of any infection. The wound/skin graft substitute was dressed with nonadherent bandage secured in place with Steri-Strips followed by negative pressure wound VAC sent to 125 mmHg followed by dry sterile dressing compression wrap to the left lower extremity. Musculoskeletal: No pain on palpation of full-thickness ulceration to left tibia. No pain with calf compression. Debridement Note Debridement Note Debridement Free Text: Excisional debridement down to and including subcutaneous tissue, fascia and muscle with a number 3 mm dermal curette to the left anterior leg without incident. Predebridement measurement was 1.5 x 4.3 x 0.4 cm.. Postdebridement measurement is 1.8 x 4.5 x 0.6 cm. EpiCord 2.0 x 3.0 cm graft was applied to the left leg full-thickness ulceration with 100% use. Second application. The graft site was free and clear of any infection. The wound/skin graft substitute was dressed with nonadherent bandage secured in place with Steri-Strips followed by negative pressure wound VAC sent to 125 mmHg followed by dry sterile dressing compression wrap to the left lower extremity. Post-Debridement Measurements and Additional Note: Post-Debridement Measurements/Treatment [id number] - Nurse 1 - General Ulcer Assessment Start: 08/11/24 11:37 Freq: Status: Active Protocol: LOWEXT Activity Type Activity Date Activity User E-sign Co-sign Detail Recorded Client Recorded Date Recorded By Document 08/11/24 11:38 KW [id number] 08/11/24 11:59 KW Document 08/18/24 10:09 KW [id number] 08/18/24 10:22 KW Document 08/25/24 09:15 KW [id number] 08/25/24 09:26 KW Document 08/31/24 08:27 BMF [id number] 08/31/24 08:33 BMF Document 09/07/24 09:02 BMF [id number] 09/07/24 09:13 BMF 08/11/24 08/18/24 08/25/24 11:38 10:09 09:15 - Today's Visit Information Type of service Follow-up Visit Follow-up Visit Follow-up Visit (Physician/MARINE ELECTRONICS TECHNICIAN (Physician/MARINE ELECTRONICS TECHNICIAN (Physician/MARINE ELECTRONICS TECHNICIAN ) ) ) Arrival Mode Wheelchair Wheelchair Wheelchair Transfer Assistance Accompanied by blue Lim Patient Identification Verified (Name & Yes Yes Yes ) Patient Requires Transmission-Based Precautions Vital Signs Temperature (97.8 F-99.1 F) 97.1 F L 97.1 F L 98.7 F Temperature Source Temporal Temporal Temporal Pulse Rate (60-100) 85 87 90 Pulse Location Monitor Monitor Monitor Respiratory Rate (12-18) 18 18 18 Respiratory rate source Observation Observation Observation Oxygen Delivery Method Room Air Room Air Blood Pressure (90/60-120/80) 159/75 H 135/66 H 124/60 H Blood Pressure Mean (mm Hg) 103 89 81 Source Monitor Monitor Monitor Position Semi-Fowlers Semi-Fowlers Semi-Fowlers Blood Pressure Location Left Forearm Left Arm Left Arm History Since Last Visit- (Skip if this is Patient's initial visit) Have you changed medications since your No No No last visit? Any new allergies or adverse reactions No No No Had a fall/change in ADL's that may No No No increase risk of falls Signs or symptoms of abuse and/or No No No neglect since last visit Have you been in the hospital since your No No No last visit? Has dressing in place as prescribed Yes Yes Yes Has compression in place as prescribed Yes Yes Yes Has offloadiing in place as prescribed Yes Yes N/A Experienced any changes in pain level or No No No management Left Footwear No Footwear Regular Shoe Regular Shoe Right Footwear Regular Shoe Regular Shoe Regular Shoe Other Footwear Pain Scale: 0-10 Numeric Is Patient Pain Free? Yes Yes Yes 08/31/24 09/07/24 08:27 09:02 - Today's Visit Information Type of service Follow-up Visit Follow-up Visit (Physician/MARINE ELECTRONICS TECHNICIAN (Physician/MARINE ELECTRONICS TECHNICIAN ) ) Arrival Mode Wheelchair Wheelchair Transfer Assistance None None Accompanied by boyfriend boyfriend Patient Identification Verified (Name & Yes Yes ) Patient Requires Transmission-Based No Precautions Vital Signs Temperature (97.8 F-99.1 F) 99.1 F 96.9 F L Temperature Source Temporal Temporal Pulse Rate (60-100) 102 H 85 Pulse Location Monitor Monitor Respiratory Rate (12-18) 16 16 Respiratory rate source Observation Observation Oxygen Delivery Method Room Air Room Air Blood Pressure (90/60-120/80) 136/72 H 123/67 H Blood Pressure Mean (mm Hg) 93 85 Source Monitor Monitor Position Sitting Sitting Blood Pressure Location Right Arm Right Arm History Since Last Visit- (Skip if this is Patient's initial visit) Have you changed medications since your No No last visit? Any new allergies or adverse reactions No No Had a fall/change in ADL's that may No No increase risk of falls Signs or symptoms of abuse and/or No No neglect since last visit Have you been in the hospital since your No No last visit? Has dressing in place as prescribed Yes Yes Has compression in place as prescribed N/A Yes Has offloadiing in place as prescribed N/A N/A Experienced any changes in pain level or No No management Left Footwear No Footwear Regular Shoe Right Footwear Regular Shoe Regular Shoe Other Footwear ino only on the left Pain Scale: 0-10 Numeric Is Patient Pain Free? Yes Yes - Nurse 1 - General Ulcer Measurement Start: 08/11/24 11:37 Freq: Status: Active Protocol: Activity Type Activity Date Activity User E-sign Co-sign Detail Recorded Client Recorded Date Recorded By Document 08/11/24 11:38 KW [id number] 08/11/24 11:59 KW Document 08/18/24 10:09 KW [id number] 08/18/24 10:22 KW Document 08/25/24 09:15 KW [id number] 08/25/24 09:26 Document 08/31/24 08:27 [facility] [id number] 08/31/24 08:33 [facility] Document 09/07/24 09:02 [facility] [id number] 09/07/24 09:13 [facility] 08/11/24 08/18/24 08/25/24 11:38 10:09 09:15 Wound Center Nurse 1 #9 LEFT Thigh Graft site -Combined with other wound No -Current Size (cm) - Length 6.4 0.1 -Current Size (cm) - Width 7.5 0.1 -Current Size (cm) - Depth 0.1 0.1 -Total Square Cm 48.00 0.01 -Date of Last Picture (Recall this 08/11/24 field) -Photo Taken Yes -Epithelialization None Present -Tunneling No -Undermining/Tunneling No -Circular Undermining No -Exudate Amt Large None Present -Exudate Type Serosanguineous -Wound Margin Distinct, Outline Attached -Granulation Amt Large (67-100%) -Granulation Quality Red -Slough/Fibrin No -Texture (Mima-wound Skin Appearance) Assessed Assessed -Moisture (Mima-wound Skin Appearance) Assessed Assessed -Color (Mima-wound Skin Appearance) Assessed Assessed -Temperature (Mima-wound Skin No Abnormality No Abnormality Appearance) (Pt Warm) (Pt Warm) -Tenderness on Palpation (Mima-wound No Skin Appearance) -Ulcer Cleansing Soap and Water -Foul Odor after Cleansing No #8 L Tenorio post-op -Combined with other wound -Current Size (cm) - Length 2.0 2.5 2 -Current Size (cm) - Width 4.0 4 1.3 -Current Size (cm) - Depth 0.4 0.3 0.6 -Total Square Cm 8.00 10.0 2.6 -Date of Last Picture (Recall this 08/11/24 08/25/24 field) -Photo Taken Yes -Epithelialization None Present Medium 34-66% -Tunneling No -Undermining/Tunneling No -Circular Undermining No -Exudate Amt Small Small Small -Exudate Type Serosanguineous Serosanguineous Serosanguineous -Wound Margin Distinct, Distinct, Distinct, Outline Outline Outline Attached Attached Attached -Granulation Amt Small (1-33%) Small (1-33%) -Granulation Quality Dighton Dighton -Slough/Fibrin -Necrosis Amt Large (67-100%) Large (67-100%) -Necrotic Tissue Type Adherent Slough Adherent Slough -Texture (Mima-wound Skin Appearance) Assessed Assessed Assessed -Moisture (Mima-wound Skin Appearance) Assessed, Assessed Assessed Maceration -Color (Mima-wound Skin Appearance) Assessed Assessed Assessed, Erythema -Temperature (Mima-wound Skin No Abnormality No Abnormality No Abnormality Appearance) (Pt Warm) (Pt Warm) (Pt Warm) -Tenderness on Palpation (Mima-wound No No No Skin Appearance) -Ulcer Cleansing Soap and Water Soap and Water Soap and Water -Foul Odor after Cleansing No No No -Anesthetic Used 4% Lidocaine Solution Lower Limb Edema Present Left Calf (cm) Left Ankle (cm) 08/31/24 09/07/24 08:27 09:02 Wound Center Nurse 1 #9 LEFT Thigh Graft site -Combined with other wound -Current Size (cm) - Length -Current Size (cm) - Width -Current Size (cm) - Depth -Total Square Cm -Date of Last Picture (Recall this field) -Photo Taken -Epithelialization -Tunneling -Undermining/Tunneling -Circular Undermining -Exudate Amt -Exudate Type -Wound Margin -Granulation Amt -Granulation Quality -Slough/Fibrin -Texture (Mima-wound Skin Appearance) -Moisture (Mima-wound Skin Appearance) -Color (Mima-wound Skin Appearance) -Temperature (Mima-wound Skin Appearance) -Tenderness on Palpation (Mima-wound Skin Appearance) -Ulcer Cleansing -Foul Odor after Cleansing #8 L Tenorio post-op -Combined with other wound No No -Current Size (cm) - Length 1.6 1.7 -Current Size (cm) - Width 4.8 4 -Current Size (cm) - Depth 0.1 0.5 -Total Square Cm 7.68 6.8 -Date of Last Picture (Recall this 08/31/24 09/07/24 field) -Photo Taken Yes Yes -Epithelialization Small 1-33% Small 1-33% -Tunneling No No -Undermining/Tunneling No No -Circular Undermining No No -Exudate Amt Medium Medium -Exudate Type Serosanguineous Serosanguineous -Wound Margin Distinct, Distinct, Outline Outline Attached Attached -Granulation Amt Medium (34-66%) Medium (34-66%) -Granulation Quality Red Red -Slough/Fibrin Yes Yes -Necrosis Amt Medium (34-66%) Medium (34-66%) -Necrotic Tissue Type Adherent Slough Adherent Slough -Texture (Mima-wound Skin Appearance) Assessed Assessed, Scarring -Moisture (Mima-wound Skin Appearance) Assessed Assessed,Dry/ Scaly -Color (Mima-wound Skin Appearance) Assessed Assessed -Temperature (Mima-wound Skin No Abnormality No Abnormality Appearance) (Pt Warm) (Pt Warm) -Tenderness on Palpation (Mima-wound No No Skin Appearance) -Ulcer Cleansing Soap and Water Soap and Water -Foul Odor after Cleansing No No -Anesthetic Used 4% Lidocaine 5% Lidocaine Solution Gel Lower Limb Edema Present Yes Yes Left Calf (cm) 28.5 Left Ankle (cm) 18 WC - Nurse 2 - General Ulcer CM Notes Start: 08/11/24 11:37 Freq: Status: Active Protocol: Activity Type Activity Date Activity User E-sign Co-sign Detail Recorded Client Recorded Date Recorded By Document 08/11/24 12:07 [id number] 08/11/24 12:11 Document 08/18/24 10:31 [id number] 08/18/24 10:42 Document 08/25/24 09:35 [id number] 08/25/24 09:44 Document 08/31/24 09:11 [id number] 08/31/24 09:13 Document 09/07/24 09:24 JF [id number] 09/07/24 09:31 08/11/24 08/18/24 08/25/24 12:07 10:31 09:35 Wound Center Nurse 2 #9 LEFT Thigh Graft site -Correct Patient No -Correct Side, Site, Position No -Correct Procedure No -Procedure Performed No No -Post Debridement (cm) - Length 0 -Post Debridement (cm) - Width 0 -Post Debridement (cm) - Depth 0 -Total Square (Post) (cm) 0 -Area of Debridement (cm) - Length 0 -Area of Debridement (cm) - Width 0 -Total Square (Area) (cm) 0 -Wound/Ulcer Outcome Not Healed Healed- Epithelialized #8 L Tenorio post-op -Time 12:08 10:40 09:42 -Correct Patient Yes Yes Yes -Correct Side, Site, Position Yes Yes Yes -Correct Procedure Yes Yes Yes -Procedure Performed Yes Yes Yes -Type of Procedure Debridement Debridement Debridement -Clinical Debridement Muscle / Fascia Muscle / Fascia Muscle / Fascia -Tissue Removed Muscle Muscle,Fascia Muscle,Fascia -Post Debridement (cm) - Length 2.7 2.3 1.8 -Post Debridement (cm) - Width 5.2 1.4 4.5 -Post Debridement (cm) - Depth 0.1 0.8 0.5 -Total Square (Post) (cm) 14.04 3.22 8.10 -Area of Debridement (cm) - Length 2.7 2.3 1.8 -Area of Debridement (cm) - Width 5.2 1.4 4.5 -Total Square (Area) (cm) 14.04 3.22 8.10 -Tunneling No No No -Undermining/Tunneling No No No -Circular Undermining No No -Wound/Ulcer Outcome Not Healed Not Healed Not Healed -Ulcer Cleansing Rinsed/ Rinsed/ Rinsed/ Irrigated with Irrigated with Irrigated with Saline Saline Saline -Foul Odor after Cleansing No No No -Bioengineered Tissue No No -Type of Bioengineered Tissue -Expiration Date -Product Lot Number -Percent Used -Lot number of Saline Used -Bleeding Controlled with Pressure Pressure Pressure -Treatment Response Procedure Procedure Procedure Tolerated Well Tolerated Well Tolerated Well -Offloading No No No -Debridement - Subq, 1st 20sq cm -Debridement - Muscle / Fascia, 1st Yes Yes Yes 20sq cm -Apply Skin Sub - 1st 25 sq cm - Legs -Epicord (per sq cm) Pain Scale: 0-10 Numeric Is Patient Pain Free? Yes Yes Yes 08/31/24 09/07/24 09:11 09:24 Wound Center Nurse 2 #9 LEFT Thigh Graft site -Correct Patient -Correct Side, Site, Position -Correct Procedure -Procedure Performed -Post Debridement (cm) - Length -Post Debridement (cm) - Width -Post Debridement (cm) - Depth -Total Square (Post) (cm) -Area of Debridement (cm) - Length -Area of Debridement (cm) - Width -Total Square (Area) (cm) -Wound/Ulcer Outcome #8 L Tenorio post-op -Time 09:11 09:25 -Correct Patient Yes Yes -Correct Side, Site, Position Yes Yes -Correct Procedure Yes Yes -Procedure Performed Yes Yes -Type of Procedure Debridement Debridement -Clinical Debridement Muscle / Fascia Muscle / Fascia -Tissue Removed Muscle Muscle -Post Debridement (cm) - Length 1.7 1.8 -Post Debridement (cm) - Width 4.5 4.5 -Post Debridement (cm) - Depth 0.7 0.6 -Total Square (Post) (cm) 7.65 8.10 -Area of Debridement (cm) - Length 1.7 1.8 -Area of Debridement (cm) - Width 4.5 4.5 -Total Square (Area) (cm) 7.65 8.10 -Tunneling No No -Undermining/Tunneling No No -Circular Undermining No No -Wound/Ulcer Outcome Not Healed Not Healed -Ulcer Cleansing Rinsed/ Rinsed/ Irrigated with Irrigated with Saline Saline -Foul Odor after Cleansing No No -Bioengineered Tissue Yes Yes -Type of Bioengineered Tissue Epicord Epicord -Expiration Date 02/06/29 02/06/29 -Product Lot Number [id number] -Percent Used 100 100 -Lot number of Saline Used [id number] -Bleeding Controlled with Pressure Pressure -Treatment Response Procedure Procedure Tolerated Well Tolerated Well -Offloading No No -Debridement - Subq, 1st 20sq cm No No -Debridement - Muscle / Fascia, 1st No No 20sq cm -Apply Skin Sub - 1st 25 sq cm - Legs 1 1 -Epicord (per sq cm) 6 6 Pain Scale: 0-10 Numeric Is Patient Pain Free? Yes Yes WC - Nurse 3 - General Ulcer D/C NN Start: 08/11/24 11:37 Freq: Status: Active Protocol: Activity Type Activity Date Activity User E-sign Co-sign Detail Recorded Client Recorded Date Recorded By Document 08/11/24 12:32 DL [id number] 08/11/24 12:34 DL Document 08/18/24 10:56 KW [id number] 08/18/24 10:56 KW Document 08/25/24 09:47 KW [id number] 08/25/24 10:00 KW Document 08/31/24 09:33 BMF [id number] 08/31/24 09:34 BMF Document 09/07/24 09:34 KW [id number] 09/07/24 09:35 KW 08/11/24 08/18/24 08/25/24 12:32 10:56 09:47 Wound Care Center Nurse 3 #9 LEFT Thigh Graft site -Ulcer Cleansing Soap and Water -Foul Odor after Cleansing No -Primary Dressing Applied C Hydrogel ($), NonAdherent Contact Layer -Primary Dressing Covered/Secured with Dry Gauze, Secured with Tape #8 L Tenorio post-op -Ulcer Cleansing Not Cleansed -Foul Odor after Cleansing No No -Negative Pressure Wound Therapy -Setting (mmHg) -Negative Pressure is Continuous -Primary Dressing Applied NonAdherent Contact Layer -Other Dressing graft site -Primary Dressing Covered/Secured with Dry Gauze & Dry Gauze & Roll Gauze Roll Gauze, Secured with Tape -Other Covering ABD -NPWT Application Charge NPWT & Debridement (nc ) Left -Lotion applied to leg before No compression wrap -Compression Wrap Ino Wrap Ino Wrap Ino Wrap Treatment Response Procedure Tolerated Well Pain Scale: 0-10 Numeric Is Patient Pain Free? Yes Yes Yes WC - Visit Discharge Discharge Condition Stable Stable Stable Ambulatory Status Ambulatory, Wheelchair Wheelchair Wheelchair Transportation Private Auto Private Auto Accompanied by Medication Reconcilliation completed & No provided to patient/care provider Clinical Summary of Care Provided Yes Facility Type 08/31/24 09/07/24 09:33 09:34 Wound Care Center Nurse 3 #9 LEFT Thigh Graft site -Ulcer Cleansing -Foul Odor after Cleansing -Primary Dressing Applied -Primary Dressing Covered/Secured with #8 L Tenorio post-op -Ulcer Cleansing -Foul Odor after Cleansing -Negative Pressure Wound Therapy Continue Continue -Setting (mmHg) 125 125 -Negative Pressure is Continuous Continuous -Primary Dressing Applied -Other Dressing epi under vac -Primary Dressing Covered/Secured with -Other Covering -NPWT Application Charge NPWT & NPWT & Debridement (nc Debridement (nc ) ) Left -Lotion applied to leg before compression wrap -Compression Wrap Ino Wrap Ino Wrap Treatment Response Procedure Tolerated Well Pain Scale: 0-10 Numeric Is Patient Pain Free? Yes Yes WC - Visit Discharge Discharge Condition Stable Stable Ambulatory Status Wheelchair Wheelchair Transportation Accompanied by boyfriend Medication Reconcilliation completed & No provided to patient/care provider Clinical Summary of Care Provided Yes Facility Type Home Health Assessment/Plan Assessment/Plan (1) Idiopathic chronic venous hypertension of left leg with ulcer: CODE(S): I87.312 - Chronic venous hypertension (idiopathic) with ulcer of left lower extremity; L97.929 - Non-pressure chronic ulcer of unspecified part of left lower leg with unspecified severity PLAN: Patient was examined and evaluated. All findings were discussed with the patient. All questions were answered to the patient's satisfaction. Excisional debridement down to and including subcutaneous tissue, fascia and muscle with a number 3 mm dermal curette to the left anterior leg without incident. Predebridement measurement was 1.5 x 4.3 x 0.4 cm.. Postdebridement measurement is 1.8 x 4.5 x 0.6 cm. EpiCord 2.0 x 3.0 cm graft was applied to the left leg full-thickness ulceration with 100% use. Second application. The graft site was free and clear of any infection. The wound/skin graft substitute was dressed with nonadherent bandage secured in place with Steri-Strips followed by negative pressure wound VAC sent to 125 mmHg followed by dry sterile dressing compression wrap to the left lower extremity. Educated the patient to continue to try smoking cessation and she runs the risks of delayed healing and ultimately runs the risk of below-knee amputation to left lower extremity. Follow-up at the wound care center with Dr. Estevez in 1 week. 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
--- NOTE | 2024-09-13 11:28 | WC ---
PHOTO 09/07/24 LEFT RODNEY
== END 2024-09-07 23:59 | disposition home or self-care (01) ==
LOC: WC 08:45
PROVIDERS: Referring Provider Nurse Practitioner Family; Visit Provider Podiatrist Foot & Ankle Surgery
DX: I87.312 Chronic venous hypertension (idiopathic) with ulcer of left lower extremity (principal); L97.823 Non-pressure chronic ulcer of other part of left lower leg with necrosis of muscle; F17.200 Nicotine dependence, unspecified, uncomplicated; Z86.14 Personal history of Methicillin resistant Staphylococcus aureus infection
CPT/HCPCS: 11043; 15271; 87070; 87075; 87077; 87186; 87205; Q4187

== ENCOUNTER 2024-09-14 11:36 | Outpatient (RCR) | payer MEDICAID, SELFPAY | END 2024-10-08 23:59 | LOC: NS 11:36 | PROVIDERS: Referring Provider Nurse Practitioner Family; Visit Provider Nurse Practitioner Family | DX: Z71.3 Dietary counseling and surveillance (principal); E11.9 Type 2 diabetes mellitus without complications; E46 Unspecified protein-calorie malnutrition; J44.9 Chronic obstructive pulmonary disease, unspecified; E78.5 Hyperlipidemia, unspecified; M06.9 Rheumatoid arthritis, unspecified | CPT/HCPCS: 97803 ==

== ENCOUNTER 2024-10-06 10:00 | Outpatient (RCR) | payer MEDICAID, SELFPAY ==
[2024-09-08 00:37] VITALS: BP 129/55; PULSE 92; RESP 18; TEMP 36.8
[2024-09-15 09:21] VITALS: BP 133/65; PULSE 92; RESP 19; TEMP 36.3
--- NOTE | 2024-09-15 12:02 | PN.PCM_ITS ---
History of Present Illness Date of Service: 09/07/24 Chief Complaint: nonhealing ulcer left anterior leg. History of Wound: Surgery 12/03/22 - surgical preparation left anterior leg with incision and drainage and excisional debridement nonhealing infected MRSA ulcer and partial ostectomy tibia for osteomyelitis. Wound care - Silver dressings followed by Tubigrip. Operative Tissue and bone cultures positive for MRSA. Treated with IV Vancomycin. Infectious Diseases consulted. Pathology - pieces of bone with chronic inflammation and reactive changes, negative for acute osteomyelitis. Prealbumin from 12/04/22 was 14.5. Encouraged nutritional supplementation with protein to help with the healing process. HgbA1c from 07/19/22 was 5.7. HgbA1c needs to be less than 8 for elective surgeries. MRI left leg done on08/08/22 - Sinus tracts from the marrow of the mid to distal tibial diaphysis to the skin at the medial aspect. Marrow edema throughout the majority of the tibia. Findings concerning for osteomyelitis. Arterial study completed 11/04/22. Triphasic Doppler waveforms at ankle level bilaterally. Right MARI by dorsalis pedis = 1.15.? Left MARI by dorsalis pedis = 1.28. There is no evidence of significant arterial occlusive disease in the lower extremities bilaterally. Today she denies complaints of fever. Her appetite is ok. Subjective Subjective Ms. Calvert is a 63-year-old female presented wound care center today follow-up evaluation of full-thickness wound and graft application to the left anterior leg. She has been compliant with wound VAC changes per home health care. She still admits to smoking. She is making attempts to cut back. Denies trauma. Denies constitutional symptoms. No other pedal complaints at this time. Objective Data Objective Data Vital Signs: Vital Signs Temp Pulse Resp BP 97.3 F L 92 19 H 133/65 H 09/15/24 09:21 09/15/24 09:21 09/15/24 09:21 09/15/24 09:21 Lab / Micro Data Micro: Microbiology 08/25/24 09:40 Wound - Leg, Left Gram Stain - Final 08/25/24 09:40 Wound - Leg, Left Wound Culture - Final Serratia marcescens Pasteurella multocida Streptococcus mitis/ oralis 08/25/24 09:40 Wound - Leg, Left Anaerobic Culture - Final No anaerobic bacteria isolated. Physical Exam Narrative Vascular: DP and PT pulses are palpable. CFT is brisk. Skin temperature great is warm to warm from proximal ankle to the distal digits to left lower extremity. Nonpitting edema appreciated to left lower extremity. No erythema. Neurological: Light touch intact. Patient does respond to painful stimuli. Dermatological: Full-thickness wound with exposed muscle tendon to the anterior left leg. Wound measures 2.2 x 3.6 x 0.5 cm. Wound base is granular nature. No probe to bone. No drainage or malodor. Excisional debridement down to and including subcutaneous tissue, fascia and muscle with a number 3 mm dermal curette to the left anterior leg without incident. Predebridement measurement was 2.0 x 3.0 x 0.3 cm. Postdebridement measurement is 2.2 x 3.6 x 0.5 cm. EpiCord 2.0 x 3.0 cm graft was applied to the left leg full-thickness ulceration with 100% use. Third application. The graft site was free and clear of any infection. The wound/skin graft substitute was dressed with nonadherent bandage secured in place with Steri-Strips followed by negative pressure wound VAC sent to 125 mmHg followed by dry sterile dressing compression wrap to the left lower extremity. Musculoskeletal: No pain on palpation of full-thickness ulceration to left tibia. No pain with calf compression. Debridement Note Debridement Note Debridement Free Text: Excisional debridement down to and including subcutaneous tissue, fascia and muscle with a number 3 mm dermal curette to the left anterior leg without incident. Predebridement measurement was 2.0 x 3.0 x 0.3 cm. Postdebridement measurement is 2.2 x 3.6 x 0.5 cm. EpiCord 2.0 x 3.0 cm graft was applied to the left leg full-thickness ulceration with 100% use. Third application. The graft site was free and clear of any infection. The wound/skin graft substitute was dressed with nonadherent bandage secured in place with Steri-Strips followed by negative pressure wound VAC sent to 125 mmHg followed by dry sterile dressing compression wrap to the left lower extremity. Post-Debridement Measurements and Additional Note: Post-Debridement Measurements/Treatment YVETTE - Nurse 1 - General Ulcer Assessment Start: 09/15/24 09:21 Freq: Status: Active Protocol: ELENA Activity Type Activity Date Activity User E-sign Co-sign Detail Recorded Client Recorded Date Recorded By Document 09/15/24 09:21 ML [id number] 09/15/24 09:28 ML 09/15/24 09:21 WC - Today's Visit Information Type of service Follow-up Visit (Physician/HOSPICE VOLUNTEER COORDINATOR ) Arrival Mode Ambulatory Patient Identification Verified (Name & Yes ) Patient Requires Transmission-Based No Precautions Vital Signs Temperature (97.8 F-99.1 F) 97.3 F L Temperature Source Temporal Pulse Rate (60-100) 92 Pulse Location Monitor Respiratory Rate (12-18) 19 H Respiratory rate source Observation Blood Pressure (90/60-120/80) 133/65 H Blood Pressure Mean (mm Hg) 87 Source Monitor Position Sitting Blood Pressure Location Left Arm History Since Last Visit- (Skip if this is Patient's initial visit) Have you changed medications since your No last visit? Any new allergies or adverse reactions No Signs or symptoms of abuse and/or No neglect since last visit Have you been in the hospital since your No last visit? Has dressing in place as prescribed Yes Has compression in place as prescribed Yes Has offloadiing in place as prescribed N/A Experienced any changes in pain level or No management Pain Scale: 0-10 Numeric Is Patient Pain Free? Yes - Nurse 1 - General Ulcer Measurement Start: 09/15/24 09:21 Freq: Status: Active Protocol: Activity Type Activity Date Activity User E-sign Co-sign Detail Recorded Client Recorded Date Recorded By Document 09/15/24 09:21 ML [id number] 09/15/24 09:28 ML 09/15/24 09:21 Wound Center Nurse 1 #8 L Tenorio post-op -Current Size (cm) - Length 1.8 -Current Size (cm) - Width 4 -Current Size (cm) - Depth 0.4 -Total Square Cm 7.2 -Exudate Amt Medium -Exudate Type Serosanguineous -Granulation Amt Medium (34-66%) -Slough/Fibrin Yes -Necrosis Amt Medium (34-66%) -Necrotic Tissue Type Adherent Slough -Texture (Mima-wound Skin Appearance) Assessed -Moisture (Mima-wound Skin Appearance) Assessed -Color (Mima-wound Skin Appearance) Assessed -Temperature (Mima-wound Skin No Abnormality Appearance) (Pt Warm) -Tenderness on Palpation (Mima-wound No Skin Appearance) -Ulcer Cleansing Soap and Water -Foul Odor after Cleansing Yes -Anesthetic Used 5% Lidocaine Gel - Nurse 2 - General Ulcer CM Notes Start: 09/15/24 09:21 Freq: Status: Active Protocol: Activity Type Activity Date Activity User E-sign Co-sign Detail Recorded Client Recorded Date Recorded By Document 09/15/24 09:57 TENZIN [id number] 09/15/24 10:01 TENZIN 09/15/24 09:57 Wound Center Nurse 2 -Time 09:57 -Correct Patient Yes -Correct Side, Site, Position Yes -Correct Procedure Yes -Procedure Performed Yes -Type of Procedure Debridement -Clinical Debridement Muscle / Fascia -Tissue Removed Muscle -Post Debridement (cm) - Length 2.2 -Post Debridement (cm) - Width 3.6 -Post Debridement (cm) - Depth 0.5 -Total Square (Post) (cm) 7.92 -Area of Debridement (cm) - Length 2.2 -Area of Debridement (cm) - Width 3.6 -Total Square (Area) (cm) 7.92 -Tunneling Yes -Tunneling Position (O'clock) 12 -Tunneling Distance (cm) 1.5 -Undermining/Tunneling No -Circular Undermining No -Wound/Ulcer Outcome Not Healed -Ulcer Cleansing Rinsed/ Irrigated with Saline -Foul Odor after Cleansing No -Bioengineered Tissue Yes -Type of Bioengineered Tissue Epicord -Expiration Date 11/06/28 -Product Lot Number [id number] -Percent Used 100 -Lot number of Saline Used [id number] -Bleeding Controlled with Pressure -Treatment Response Procedure Tolerated Well -Offloading No -Debridement - Muscle / Fascia, 1st No 20sq cm -Apply Skin Sub - 1st 25 sq cm - Legs 1 -Epicord (per sq cm) 6 Pain Scale: 0-10 Numeric Is Patient Pain Free? Yes - Nurse 3 - General Ulcer D/C NN Start: 09/15/24 09:21 Freq: Status: Active Protocol: Activity Type Activity Date Activity User E-sign Co-sign Detail Recorded Client Recorded Date Recorded By Document 09/15/24 10:34 KW [id number] 09/15/24 10:35 KW 09/15/24 10:34 Wound Care Center Nurse 3 #8 L Tenorio post-op -Negative Pressure Wound Therapy Continue -Setting (mmHg) 125 -Negative Pressure is Continuous -Primary Dressing Applied Promogran Madelaine Matter -NPWT Application Charge NPWT & Debridement (nc ) -Promogran Madelaine Matter 1 Left -Compression Wrap Ino Wrap Pain Scale: 0-10 Numeric Is Patient Pain Free? Yes WC - Visit Discharge Discharge Condition Stable Ambulatory Status Ambulatory Medication Reconcilliation completed & No provided to patient/care provider Clinical Summary of Care Provided Yes Assessment/Plan Assessment/Plan (1) Idiopathic chronic venous hypertension of left leg with ulcer: CODE(S): I87.312 - Chronic venous hypertension (idiopathic) with ulcer of left lower extremity; L97.929 - Non-pressure chronic ulcer of unspecified part of left lower leg with unspecified severity PLAN: Patient was examined and evaluated. All findings were discussed with the patient. All questions were answered to the patient's satisfaction. Excisional debridement down to and including subcutaneous tissue, fascia and muscle with a number 3 mm dermal curette to the left anterior leg without incident. Predebridement measurement was 2.0 x 3.0 x 0.3 cm. Postdebridement measurement is 2.2 x 3.6 x 0.5 cm. EpiCord 2.0 x 3.0 cm graft was applied to the left leg full-thickness ulceration with 100% use. Third application. The graft site was free and clear of any infection. The wound/skin graft substitute was dressed with nonadherent bandage secured in place with Steri-Strips followed by negative pressure wound VAC sent to 125 mmHg followed by dry sterile dressing compression wrap to the left lower extremity. Educated the patient to continue to try smoking cessation and she runs the risks of delayed healing and ultimately runs the risk of below-knee amputation to left lower extremity. Follow-up at the wound care center with Dr. Estevez in 1 week. 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
--- NOTE | 2024-09-16 12:03 | WC ---
PHOTO 09/15/24 RIGHT LE
[2024-09-22 09:15] VITALS: BP 145/70; PULSE 98; RESP 18; TEMP 36.3
--- NOTE | 2024-09-22 11:32 | PCM.WC.PN ---
History of Present Illness Date of Service: 09/07/24 Chief Complaint: nonhealing ulcer left anterior leg. History of Wound: Surgery 12/03/22 - surgical preparation left anterior leg with incision and drainage and excisional debridement nonhealing infected MRSA ulcer and partial ostectomy tibia for osteomyelitis. Wound care - Silver dressings followed by Tubigrip. Operative Tissue and bone cultures positive for MRSA. Treated with IV Vancomycin. Infectious Diseases consulted. Pathology - pieces of bone with chronic inflammation and reactive changes, negative for acute osteomyelitis. Prealbumin from 12/04/22 was 14.5. Encouraged nutritional supplementation with protein to help with the healing process. HgbA1c from 07/19/22 was 5.7. HgbA1c needs to be less than 8 for elective surgeries. MRI left leg done on08/08/22 - Sinus tracts from the marrow of the mid to distal tibial diaphysis to the skin at the medial aspect. Marrow edema throughout the majority of the tibia. Findings concerning for osteomyelitis. Arterial study completed 11/04/22. Triphasic Doppler waveforms at ankle level bilaterally. Right MARI by dorsalis pedis = 1.15.? Left MARI by dorsalis pedis = 1.28. There is no evidence of significant arterial occlusive disease in the lower extremities bilaterally. Today she denies complaints of fever. Her appetite is ok. Subjective Subjective Ms. Calvert is a 63-year-old female presented wound care center today follow-up evaluation of full-thickness wound and graft application to the left anterior leg. She has been compliant with wound VAC changes per home health care. Smoking is about 5 cigarettes/day. Denies trauma. Denies constitutional symptoms. No other pedal complaints at this time. Objective Data Objective Data Vital Signs: Vital Signs Temp Pulse Resp BP O2 Del Method 97.4 F L 98 18 145/70 H Room Air 09/22/24 09:15 09/22/24 09:15 09/22/24 09:15 09/22/24 09:15 09/22/24 09:15 Oxygen Delivery Method Room Air Lab / Micro Data Micro: Microbiology 08/25/24 09:40 Wound - Leg, Left Gram Stain - Final 08/25/24 09:40 Wound - Leg, Left Wound Culture - Final Serratia marcescens Pasteurella multocida Streptococcus mitis/ oralis 08/25/24 09:40 Wound - Leg, Left Anaerobic Culture - Final No anaerobic bacteria isolated. Physical Exam Narrative Vascular: DP and PT pulses are palpable. CFT is brisk. Skin temperature great is warm to warm from proximal ankle to the distal digits to left lower extremity. Nonpitting edema appreciated to left lower extremity. No erythema. Neurological: Light touch intact. Patient does respond to painful stimuli. Dermatological: Full-thickness wound with exposed muscle tendon to the anterior left leg. Wound measures 1.8 x 3.4 x 0.4 cm. Wound base is granular nature. No probe to bone. No drainage or malodor. Excisional debridement down to and including subcutaneous tissue, fascia and muscle with a number 3 mm dermal curette to the left anterior leg without incident. Predebridement measurement was 1.7 x 3.2 x 0.2 cm. Postdebridement measurement is 1.8 x 3.4 x 0.4 cm. EpiCord 2.0 x 3.0 cm graft was applied to the left leg full-thickness ulceration with 100% use. Fourth application. The graft site was free and clear of any infection. The wound/skin graft substitute was dressed with nonadherent bandage secured in place with Steri-Strips followed by negative pressure wound VAC sent to 125 mmHg followed by dry sterile dressing compression wrap to the left lower extremity. Musculoskeletal: No pain on palpation of full-thickness ulceration to left tibia. No pain with calf compression. Debridement Note Debridement Note Debridement Free Text: Excisional debridement down to and including subcutaneous tissue, fascia and muscle with a number 3 mm dermal curette to the left anterior leg without incident. Predebridement measurement was 1.7 x 3.2 x 0.2 cm. Postdebridement measurement is 1.8 x 3.4 x 0.4 cm. EpiCord 2.0 x 3.0 cm graft was applied to the left leg full-thickness ulceration with 100% use. Fourth application. The graft site was free and clear of any infection. The wound/skin graft substitute was dressed with nonadherent bandage secured in place with Steri-Strips followed by negative pressure wound VAC sent to 125 mmHg followed by dry sterile dressing compression wrap to the left lower extremity. Post-Debridement Measurements and Additional Note: Post-Debridement Measurements/Treatment YVETTE - Nurse 1 - General Ulcer Assessment Start: 09/15/24 09:21 Freq: Status: Active Protocol: WC.LOWEXT Activity Type Activity Date Activity User E-sign Co-sign Detail Recorded Client Recorded Date Recorded By Document 09/15/24 09:21 ML [id number] 09/15/24 09:28 ML Document 09/22/24 09:15 GM [id number] 09/22/24 09:21 09/15/24 09/22/24 09:21 09:15 - Today's Visit Information Type of service Follow-up Visit Follow-up Visit (Physician/DOOR TRIMMER (Physician/DOOR TRIMMER ) ) Arrival Mode Ambulatory Ambulatory Transfer Assistance None Patient Identification Verified (Name & Yes Yes ) Patient Requires Transmission-Based No Precautions Vital Signs Temperature (97.8 F-99.1 F) 97.3 F L 97.4 F L Temperature Source Temporal Temporal Pulse Rate (60-100) 92 98 Pulse Location Monitor Monitor Respiratory Rate (12-18) 19 H 18 Respiratory rate source Observation Observation Oxygen Delivery Method Room Air Blood Pressure (90/60-120/80) 133/65 H 145/70 H Blood Pressure Mean (mm Hg) 87 95 Source Monitor Monitor Position Sitting Sitting Blood Pressure Location Left Arm Right Arm History Since Last Visit- (Skip if this is Patient's initial visit) Have you changed medications since your No No last visit? Any new allergies or adverse reactions No No Had a fall/change in ADL's that may No increase risk of falls Signs or symptoms of abuse and/or No No neglect since last visit Have you been in the hospital since your No No last visit? Has dressing in place as prescribed Yes Yes Has compression in place as prescribed Yes Yes Has offloadiing in place as prescribed N/A N/A Experienced any changes in pain level or No No management Left Footwear Regular Shoe Right Footwear Regular Shoe Pain Scale: 0-10 Numeric Is Patient Pain Free? Yes Yes - Nurse 1 - General Ulcer Measurement Start: 09/15/24 09:21 Freq: Status: Active Protocol: Activity Type Activity Date Activity User E-sign Co-sign Detail Recorded Client Recorded Date Recorded By Document 09/15/24 09:21 ML [id number] 09/15/24 09:28 ML Document 09/22/24 09:15 [id number] 09/22/24 09:21 09/15/24 09/22/24 09:21 09:15 Wound Center Nurse 1 #8 L Tenorio post-op -Current Size (cm) - Length 1.8 2.5 -Current Size (cm) - Width 4 4.0 -Current Size (cm) - Depth 0.4 0.3 -Total Square Cm 7.2 10.00 -Date of Last Picture (Recall this 09/22/24 field) -Photo Taken Yes -Epithelialization Small 1-33% -Tunneling No -Undermining/Tunneling No -Circular Undermining No -Exudate Amt Medium Medium -Exudate Type Serosanguineous Serosanguineous -Wound Margin Distinct, Outline Attached -Granulation Amt Medium (34-66%) Medium (34-66%) -Granulation Quality Red -Slough/Fibrin Yes Yes -Necrosis Amt Medium (34-66%) Medium (34-66%) -Necrotic Tissue Type Adherent Slough Adherent Slough -Texture (Mima-wound Skin Appearance) Assessed Assessed -Moisture (Mima-wound Skin Appearance) Assessed Assessed, Maceration -Color (Mima-wound Skin Appearance) Assessed Assessed, Erythema -Temperature (Mima-wound Skin No Abnormality No Abnormality Appearance) (Pt Warm) (Pt Warm) -Tenderness on Palpation (Mima-wound No No Skin Appearance) -Ulcer Cleansing Soap and Water Soap and Water -Foul Odor after Cleansing Yes No -Anesthetic Used 5% Lidocaine 5% Lidocaine Gel Gel WC - Nurse 2 - General Ulcer CM Notes Start: 09/15/24 09:21 Freq: Status: Active Protocol: Activity Type Activity Date Activity User E-sign Co-sign Detail Recorded Client Recorded Date Recorded By Document 09/15/24 09:57 [id number] 09/15/24 10:01 Document 09/22/24 09:41 [id number] 09/22/24 09:48 09/15/24 09/22/24 09:57 09:41 Wound Center Nurse 2 #8 L Tenorio post-op -Time 09:57 09:41 -Correct Patient Yes Yes -Correct Side, Site, Position Yes Yes -Correct Procedure Yes Yes -Procedure Performed Yes Yes -Type of Procedure Debridement Debridement -Clinical Debridement Muscle / Fascia Muscle / Fascia -Tissue Removed Muscle Muscle -Post Debridement (cm) - Length 2.2 1.8 -Post Debridement (cm) - Width 3.6 3.4 -Post Debridement (cm) - Depth 0.5 0.4 -Total Square (Post) (cm) 7.92 6.12 -Area of Debridement (cm) - Length 2.2 1.8 -Area of Debridement (cm) - Width 3.6 3.4 -Total Square (Area) (cm) 7.92 6.12 -Tunneling Yes Yes -Tunneling Position (O'clock) 12 12 -Tunneling Distance (cm) 1.5 2.5 -Undermining/Tunneling No No -Circular Undermining No No -Wound/Ulcer Outcome Not Healed Not Healed -Ulcer Cleansing Rinsed/ Rinsed/ Irrigated with Irrigated with Saline Saline -Foul Odor after Cleansing No No -Bioengineered Tissue Yes Yes -Type of Bioengineered Tissue Epicord Epicord -Expiration Date 11/06/28 03/08/29 -Product Lot Number [id number] -Percent Used 100 100 -Lot number of Saline Used [id number] -Bleeding Controlled with Pressure Pressure -Treatment Response Procedure Procedure Tolerated Well Tolerated Well -Offloading No No -Debridement - Muscle / Fascia, 1st No No 20sq cm -Apply Skin Sub - 1st 25 sq cm - Legs 1 1 -Epicord (per sq cm) 6 6 Pain Scale: 0-10 Numeric Is Patient Pain Free? Yes Yes - Nurse 3 - General Ulcer D/C NN Start: 09/15/24 09:21 Freq: Status: Active Protocol: Activity Type Activity Date Activity User E-sign Co-sign Detail Recorded Client Recorded Date Recorded By Document 09/15/24 10:34 [id number] 09/15/24 10:35 KW Document 09/22/24 09:59 IN [id number] 09/22/24 10:44 IN 09/15/24 09/22/24 10:34 09:59 Wound Care Center Nurse 3 #8 L Tenorio post-op -Negative Pressure Wound Therapy Continue -Setting (mmHg) 125 -Negative Pressure is Continuous -Primary Dressing Applied Promogran Madelaine Matter -Primary Dressing Covered/Secured with Dry Gauze & Roll Gauze, Secured with Tape -NPWT Application Charge NPWT & Debridement (nc ) -Promogran Madelaine Matter 1 Left -Compression Wrap Ino Wrap Ino Wrap Pain Scale: 0-10 Numeric Is Patient Pain Free? Yes Yes - Visit Discharge Discharge Condition Stable Stable Ambulatory Status Ambulatory Ambulatory Transportation Private Auto Medication Reconcilliation completed & No No provided to patient/care provider Clinical Summary of Care Provided Yes Yes Notes: pt verbalized understanding to not get wound wet. Assessment/Plan Assessment/Plan (1) Idiopathic chronic venous hypertension of left leg with ulcer: CODE(S): I87.312 - Chronic venous hypertension (idiopathic) with ulcer of left lower extremity; L97.929 - Non-pressure chronic ulcer of unspecified part of left lower leg with unspecified severity PLAN: Patient was examined and evaluated. All findings were discussed with the patient. All questions were answered to the patient's satisfaction. Excisional debridement down to and including subcutaneous tissue, fascia and muscle with a number 3 mm dermal curette to the left anterior leg without incident. Predebridement measurement was 1.7 x 3.2 x 0.2 cm. Postdebridement measurement is 1.8 x 3.4 x 0.4 cm. EpiCord 2.0 x 3.0 cm graft was applied to the left leg full-thickness ulceration with 100% use. Fourth application. The graft site was free and clear of any infection. The wound/skin graft substitute was dressed with nonadherent bandage secured in place with Steri-Strips followed by bolster dressing and compression wrap to left lower extremity. Patient will take a 1 week wound VAC break due to some irritation from the application tape. Educated the patient to continue to try smoking cessation and she runs the risks of delayed healing and ultimately runs the risk of below-knee amputation to left lower extremity. Follow-up at the wound care center with Dr. Estevez in 1 week. 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
--- NOTE | 2024-09-23 08:53 | WC ---
PHOTO 09/22/24 LEFT RODNEY
[2024-09-29 09:27] VITALS: BP 150/88; PULSE 95; RESP 18; TEMP 36.5
--- NOTE | 2024-09-29 10:14 | PN.PCM_ITS ---
History of Present Illness Date of Service: 09/07/24 Chief Complaint: nonhealing ulcer left anterior leg. History of Wound: Surgery 12/03/22 - surgical preparation left anterior leg with incision and drainage and excisional debridement nonhealing infected MRSA ulcer and partial ostectomy tibia for osteomyelitis. Wound care - Silver dressings followed by Tubigrip. Operative Tissue and bone cultures positive for MRSA. Treated with IV Vancomycin. Infectious Diseases consulted. Pathology - pieces of bone with chronic inflammation and reactive changes, negative for acute osteomyelitis. Prealbumin from 12/04/22 was 14.5. Encouraged nutritional supplementation with protein to help with the healing process. HgbA1c from 07/19/22 was 5.7. HgbA1c needs to be less than 8 for elective surgeries. MRI left leg done on08/08/22 - Sinus tracts from the marrow of the mid to distal tibial diaphysis to the skin at the medial aspect. Marrow edema throughout the majority of the tibia. Findings concerning for osteomyelitis. Arterial study completed 11/04/22. Triphasic Doppler waveforms at ankle level bilaterally. Right MARI by dorsalis pedis = 1.15.? Left MARI by dorsalis pedis = 1.28. There is no evidence of significant arterial occlusive disease in the lower extremities bilaterally. Today she denies complaints of fever. Her appetite is ok. Progress of Wound: Chronic wound to the left leg improving. Subjective Subjective Ms. Calvert is a 63-year-old female presented wound care center today follow-up evaluation of full-thickness wound and graft application to the left anterior leg. Patient has been working with home health care for home physical therapy and is walking up to 7 minutes/day. She is noticing great improvement to her wound with dressing changes. She admits to smoking less every day and is grateful for her care. She denies trauma. Denies constitutional symptoms. No other pedal complaints at this time. Objective Data Objective Data Vital Signs: Vital Signs Temp Pulse Resp BP O2 Del Method 97.7 F L 95 18 150/88 H Room Air 09/29/24 09:27 09/29/24 09:27 09/29/24 09:27 09/29/24 09:27 09/22/24 09:15 Oxygen Delivery Method Room Air Lab / Micro Data Micro: Microbiology 08/25/24 09:40 Wound - Leg, Left Gram Stain - Final 08/25/24 09:40 Wound - Leg, Left Wound Culture - Final Serratia marcescens Pasteurella multocida Streptococcus mitis/ oralis 08/25/24 09:40 Wound - Leg, Left Anaerobic Culture - Final No anaerobic bacteria isolated. Physical Exam Narrative Vascular: DP and PT pulses are palpable. CFT is brisk. Skin temperature great is warm to warm from proximal ankle to the distal digits to left lower extremity. Nonpitting edema appreciated to left lower extremity. No erythema. Neurological: Light touch intact. Patient does respond to painful stimuli. Dermatological: Full-thickness wound with exposed muscle tendon to the anterior left leg. Wound measures 2.0 x 2.5 x 0.5 cm. Wound base is granular nature. No probe to bone. No drainage or malodor. Excisional debridement down to and including subcutaneous tissue, fascia and muscle with a number 3 mm dermal curette to the left anterior leg without incident. Predebridement measurement was 1.8 x 2.3 x 0.3 cm. Postdebridement measurement is 2.0 x 2.5 x 0.5 cm. EpiCord 2.0 x 3.0 cm graft was applied to the left leg full-thickness ulceration with 100% use. Fifth application. The graft site was free and clear of any infection. The wound/skin graft substitute was dressed with nonadherent bandage secured in place with Steri-Strips followed by negative pressure wound VAC sent to 125 mmHg followed by dry sterile dressing compression wrap to the left lower extremity. Musculoskeletal: No pain on palpation of full-thickness ulceration to left tibia. No pain with calf compression. Debridement Note Debridement Note Debridement Free Text: Excisional debridement down to and including subcutaneous tissue, fascia and muscle with a number 3 mm dermal curette to the left anterior leg without incident. Predebridement measurement was 1.8 x 2.3 x 0.3 cm. Postdebridement measurement is 2.0 x 2.5 x 0.5 cm. EpiCord 2.0 x 3.0 cm graft was applied to the left leg full-thickness ulceration with 100% use. Fifth application. The graft site was free and clear of any infection. The wound/skin graft substitute was dressed with nonadherent bandage secured in place with Steri-Strips followed by negative pressure wound VAC sent to 125 mmHg followed by dry sterile dressing compression wrap to the left lower extremity Post-Debridement Measurements and Additional Note: Post-Debridement Measurements/Treatment YVETTE - Nurse 1 - General Ulcer Assessment Start: 09/15/24 09:21 Freq: Status: Active Protocol: ELENA Activity Type Activity Date Activity User E-sign Co-sign Detail Recorded Client Recorded Date Recorded By Document 09/15/24 09:21 ML [id number] 09/15/24 09:28 ML Document 09/22/24 09:15 GM [id number] 09/22/24 09:21 GM Document 09/29/24 09:27 DL [id number] 09/29/24 09:38 DL 09/15/24 09/22/24 09/29/24 09:21 09:15 09:27 WC - Today's Visit Information Type of service Follow-up Visit Follow-up Visit Follow-up Visit (Physician/AUTOMOTIVE ARTIST (Physician/AUTOMOTIVE ARTIST (Physician/AUTOMOTIVE ARTIST ) ) ) Arrival Mode Ambulatory Ambulatory Ambulatory Transfer Assistance None None Patient Identification Verified (Name & Yes Yes Yes ) Patient Requires Transmission-Based No No Precautions Vital Signs Temperature (97.8 F-99.1 F) 97.3 F L 97.4 F L 97.7 F L Temperature Source Temporal Temporal Temporal Pulse Rate (60-100) 92 98 95 Pulse Location Monitor Monitor Monitor Respiratory Rate (12-18) 19 H 18 18 Respiratory rate source Observation Observation Observation Oxygen Delivery Method Room Air Blood Pressure (90/60-120/80) 133/65 H 145/70 H 150/88 H Blood Pressure Mean (mm Hg) 87 95 108 Source Monitor Monitor Monitor Position Sitting Sitting Blood Pressure Location Left Arm Right Arm History Since Last Visit- (Skip if this is Patient's initial visit) Have you changed medications since your No No No last visit? Any new allergies or adverse reactions No No No Had a fall/change in ADL's that may No No increase risk of falls Signs or symptoms of abuse and/or No No No neglect since last visit Have you been in the hospital since your No No No last visit? Has dressing in place as prescribed Yes Yes Yes Has compression in place as prescribed Yes Yes Yes Has offloadiing in place as prescribed N/A N/A Yes Experienced any changes in pain level or No No No management Left Footwear Regular Shoe Right Footwear Regular Shoe Pain Scale: 0-10 Numeric Is Patient Pain Free? Yes Yes Yes YVETTE - Nurse 1 - General Ulcer Measurement Start: 09/15/24 09:21 Freq: Status: Active Protocol: Activity Type Activity Date Activity User E-sign Co-sign Detail Recorded Client Recorded Date Recorded By Document 09/15/24 09:21 ML [id number] 09/15/24 09:28 ML Document 09/22/24 09:15 GM [id number] 09/22/24 09:21 GM Document 09/29/24 09:27 DL [id number] 09/29/24 09:38 DL 09/15/24 09/22/24 09/29/24 09:21 09:15 09:27 Wound Center Nurse 1 #8 L Tenorio post-op -Current Size (cm) - Length 1.8 2.5 1.6 -Current Size (cm) - Width 4 4.0 0.5 -Current Size (cm) - Depth 0.4 0.3 0.3 -Total Square Cm 7.2 10.00 0.80 -Date of Last Picture (Recall this 09/22/24 field) -Photo Taken Yes -Epithelialization Small 1-33% -Tunneling No -Tunneling Position (O'clock) 1 -Tunneling Distance (cm) 1 -Undermining/Tunneling No -Circular Undermining No -Exudate Amt Medium Medium Medium -Exudate Type Serosanguineous Serosanguineous Serosanguineous -Wound Margin Distinct, Distinct, Outline Outline Attached Attached -Granulation Amt Medium (34-66%) Medium (34-66%) None Present (0 %) -Granulation Quality Red Red -Slough/Fibrin Yes Yes -Necrosis Amt Medium (34-66%) Medium (34-66%) Small (1-33%) -Necrotic Tissue Type Adherent Slough Adherent Slough Adherent Slough -Structure Exposed N/A -Texture (Mima-wound Skin Appearance) Assessed Assessed Scarring -Moisture (Mima-wound Skin Appearance) Assessed Assessed, Dry/Scaly Maceration -Color (Mima-wound Skin Appearance) Assessed Assessed, Hemosiderin Erythema Staining -Temperature (Mima-wound Skin No Abnormality No Abnormality No Abnormality Appearance) (Pt Warm) (Pt Warm) (Pt Warm) -Tenderness on Palpation (Mima-wound No No No Skin Appearance) -Ulcer Cleansing Soap and Water Soap and Water Soap and Water -Foul Odor after Cleansing Yes No No -Anesthetic Used 5% Lidocaine 5% Lidocaine 5% Lidocaine Gel Gel Gel Left Calf (cm) 28.2 Left Ankle (cm) 18.8 WC - Nurse 2 - General Ulcer CM Notes Start: 09/15/24 09:21 Freq: Status: Active Protocol: Activity Type Activity Date Activity User E-sign Co-sign Detail Recorded Client Recorded Date Recorded By Document 09/15/24 09:57 JF [id number] 09/15/24 10:01 JF Document 09/22/24 09:41 JF [id number] 09/22/24 09:48 JF Document 09/29/24 09:42 DS [id number] 09/29/24 09:49 DS 09/15/24 09/22/24 09/29/24 09:57 09:41 09:42 Wound Center Nurse 2 #8 L Tenorio post-op -Time 09:57 09:41 09:42 -Correct Patient Yes Yes Yes -Correct Side, Site, Position Yes Yes Yes -Correct Procedure Yes Yes Yes -Procedure Performed Yes Yes Yes -Type of Procedure Debridement Debridement Debridement -Clinical Debridement Muscle / Fascia Muscle / Fascia Muscle / Fascia -Tissue Removed Muscle Muscle Muscle -Post Debridement (cm) - Length 2.2 1.8 2.0 -Post Debridement (cm) - Width 3.6 3.4 2.5 -Post Debridement (cm) - Depth 0.5 0.4 0.5 -Total Square (Post) (cm) 7.92 6.12 5.00 -Area of Debridement (cm) - Length 2.2 1.8 2.0 -Area of Debridement (cm) - Width 3.6 3.4 2.5 -Total Square (Area) (cm) 7.92 6.12 5.00 -Tunneling Yes Yes No -Tunneling Position (O'clock) 12 12 -Tunneling Distance (cm) 1.5 2.5 -Undermining/Tunneling No No No -Circular Undermining No No No -Wound/Ulcer Outcome Not Healed Not Healed Not Healed -Ulcer Cleansing Rinsed/ Rinsed/ Rinsed/ Irrigated with Irrigated with Irrigated with Saline Saline Saline -Foul Odor after Cleansing No No No -Bioengineered Tissue Yes Yes Yes -Type of Bioengineered Tissue Epicord Epicord Epicord -Expiration Date 11/06/28 03/08/29 03/08/29 -Product Lot Number [id number] -Percent Used 100 100 100 -Lot number of Saline Used [id number] -Bleeding Controlled with Pressure Pressure Pressure -Treatment Response Procedure Procedure Procedure Tolerated Well Tolerated Well Tolerated Well -Offloading No No -Debridement - Muscle / Fascia, 1st No No No 20sq cm -Apply Skin Sub - 1st 25 sq cm - Legs 1 1 1 -Epicord (per sq cm) 6 6 6 Pain Scale: 0-10 Numeric Is Patient Pain Free? Yes Yes Yes - Nurse 3 - General Ulcer D/C NN Start: 09/15/24 09:21 Freq: Status: Active Protocol: Activity Type Activity Date Activity User E-sign Co-sign Detail Recorded Client Recorded Date Recorded By Document 09/15/24 10:34 KW [id number] 09/15/24 10:35 KW Document 09/22/24 09:59 MT [id number] 09/22/24 10:44 MT 09/15/24 09/22/24 10:34 09:59 Wound Care Center Nurse 3 #8 L Tenorio post-op -Negative Pressure Wound Therapy Continue -Setting (mmHg) 125 -Negative Pressure is Continuous -Primary Dressing Applied Promogran Madelaine Matter -Primary Dressing Covered/Secured with Dry Gauze & Roll Gauze, Secured with Tape -NPWT Application Charge NPWT & Debridement (nc ) -Promogran Madelaine Matter 1 Left -Compression Wrap Ino Wrap Ino Wrap Pain Scale: 0-10 Numeric Is Patient Pain Free? Yes Yes WC - Visit Discharge Discharge Condition Stable Stable Ambulatory Status Ambulatory Ambulatory Transportation Private Auto Medication Reconcilliation completed & No No provided to patient/care provider Clinical Summary of Care Provided Yes Yes Notes: pt verbalized understanding to not get wound wet. Assessment/Plan Assessment/Plan (1) Idiopathic chronic venous hypertension of left leg with ulcer: CODE(S): I87.312 - Chronic venous hypertension (idiopathic) with ulcer of left lower extremity; L97.929 - Non-pressure chronic ulcer of unspecified part of left lower leg with unspecified severity PLAN: Patient was examined and evaluated. All findings were discussed with the patient. All questions were answered to the patient's satisfaction. Excisional debridement down to and including subcutaneous tissue, fascia and muscle with a number 3 mm dermal curette to the left anterior leg without incident. Predebridement measurement was 1.8 x 2.3 x 0.3 cm. Postdebridement measurement is 2.0 x 2.5 x 0.5 cm. EpiCord 2.0 x 3.0 cm graft was applied to the left leg full-thickness ulceration with 100% use. Fifth application. The graft site was free and clear of any infection. The wound/skin graft substitute was dressed with nonadherent bandage secured in place with Steri-Strips followed by dry sterile dressing and compression wrap. Educated to continue her home physical therapy and continue to educate the patient on smoking cessation. Follow-up at the wound care center with Dr. Estevez in 1 week. 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
[2024-10-06 09:54] VITALS: BP 147/60; PULSE 91; RESP 18; TEMP 35.9
--- NOTE | 2024-10-06 11:26 | PN.PCM_ITS ---
History of Present Illness Date of Service: 09/07/24 Chief Complaint: nonhealing ulcer left anterior leg. History of Wound: Surgery 12/03/22 - surgical preparation left anterior leg with incision and drainage and excisional debridement nonhealing infected MRSA ulcer and partial ostectomy tibia for osteomyelitis. Wound care - Silver dressings followed by Tubigrip. Operative Tissue and bone cultures positive for MRSA. Treated with IV Vancomycin. Infectious Diseases consulted. Pathology - pieces of bone with chronic inflammation and reactive changes, negative for acute osteomyelitis. Prealbumin from 12/04/22 was 14.5. Encouraged nutritional supplementation with protein to help with the healing process. HgbA1c from 07/19/22 was 5.7. HgbA1c needs to be less than 8 for elective surgeries. MRI left leg done on08/08/22 - Sinus tracts from the marrow of the mid to distal tibial diaphysis to the skin at the medial aspect. Marrow edema throughout the majority of the tibia. Findings concerning for osteomyelitis. Arterial study completed 11/04/22. Triphasic Doppler waveforms at ankle level bilaterally. Right MARI by dorsalis pedis = 1.15.? Left MARI by dorsalis pedis = 1.28. There is no evidence of significant arterial occlusive disease in the lower extremities bilaterally. Today she denies complaints of fever. Her appetite is ok. Progress of Wound: Chronic wound to the left leg improving. Subjective Subjective Ms. Calvert is a 63-year-old female presented wound care center today follow-up evaluation of full-thickness wound and graft application to the left anterior leg. Patient has been working with home health care for home physical therapy and is walking support. She is noticing great improvement to her wound with dressing changes. She admits to smoking less every day and is grateful for her care. She denies trauma. Denies constitutional symptoms. No other pedal complaints at this time. Objective Data Objective Data Vital Signs: Vital Signs Temp Pulse Resp BP O2 Del Method 96.7 F L 91 18 147/60 H Room Air 10/06/24 09:54 10/06/24 09:54 10/06/24 09:54 10/06/24 09:54 09/22/24 09:15 Oxygen Delivery Method Room Air Lab / Micro Data Micro: Microbiology 08/25/24 09:40 Wound - Leg, Left Gram Stain - Final 08/25/24 09:40 Wound - Leg, Left Wound Culture - Final Serratia marcescens Pasteurella multocida Streptococcus mitis/ oralis 08/25/24 09:40 Wound - Leg, Left Anaerobic Culture - Final No anaerobic bacteria isolated. Physical Exam Narrative Vascular: DP and PT pulses are palpable. CFT is brisk. Skin temperature great is warm to warm from proximal ankle to the distal digits to left lower extremity. Nonpitting edema appreciated to left lower extremity. No erythema. Neurological: Light touch intact. Patient does respond to painful stimuli. Dermatological: Full-thickness wound with exposed muscle tendon to the anterior left leg. Wound measures 2.2 x 2.1 x 0.3 cm. Wound base is granular nature. No probe to bone. No drainage or malodor. Excisional debridement down to and including subcutaneous tissue, fascia and muscle with a number 3 mm dermal curette to the left anterior leg without incident. Predebridement measurement was 1.9 x 1.9 x 0.2 cm. Postdebridement measurement is 2.2 x 2.1 x 0.3 cm. EpiCord 2.0 x 3.0 cm graft was applied to the left leg full-thickness ulceration with 100% use. Sixth application. The graft site was free and clear of any infection. The wound/skin graft substitute was dressed with nonadherent bandage secured in place with Steri-Strips followed by negative pressure wound VAC sent to 125 mmHg followed by dry sterile dressing compression wrap to the left lower extremity. Musculoskeletal: No pain on palpation of full-thickness ulceration to left tibia. No pain with calf compression. Debridement Note Debridement Note Debridement Free Text: Excisional debridement down to and including subcutaneous tissue, fascia and muscle with a number 3 mm dermal curette to the left anterior leg without incident. Predebridement measurement was 1.9 x 1.9 x 0.2 cm. Postdebridement measurement is 2.2 x 2.1 x 0.3 cm. EpiCord 2.0 x 3.0 cm graft was applied to the left leg full-thickness ulceration with 100% use. Sixth application. The graft site was free and clear of any infection. The wound/skin graft substitute was dressed with nonadherent bandage secured in place with Steri-Strips followed by negative pressure wound VAC sent to 125 mmHg followed by dry sterile dressing compression wrap to the left lower extremity. Post-Debridement Measurements and Additional Note: Post-Debridement Measurements/Treatment - Nurse 1 - General Ulcer Assessment Start: 09/15/24 09:21 Freq: Status: Active Protocol: ELENA Activity Type Activity Date Activity User E-sign Co-sign Detail Recorded Client Recorded Date Recorded By Document 09/15/24 09:21 ML [id number] 09/15/24 09:28 ML Document 09/22/24 09:15 GM [id number] 09/22/24 09:21 GM Document 09/29/24 09:27 DL [id number] 09/29/24 09:38 DL Document 10/06/24 09:54 RB [id number] 10/06/24 10:41 RB 09/15/24 09/22/24 09/29/24 09:21 09:15 09:27 - Today's Visit Information Type of service Follow-up Visit Follow-up Visit Follow-up Visit (Physician/ORACLE ADF CONSULTANT (Physician/ORACLE ADF CONSULTANT (Physician/ORACLE ADF CONSULTANT ) ) ) Arrival Mode Ambulatory Ambulatory Ambulatory Transfer Assistance None None Patient Identification Verified (Name & Yes Yes Yes ) Patient Requires Transmission-Based No No Precautions Vital Signs Temperature (97.8 F-99.1 F) 97.3 F L 97.4 F L 97.7 F L Temperature Source Temporal Temporal Temporal Pulse Rate (60-100) 92 98 95 Pulse Location Monitor Monitor Monitor Respiratory Rate (12-18) 19 H 18 18 Respiratory rate source Observation Observation Observation Oxygen Delivery Method Room Air Blood Pressure (90/60-120/80) 133/65 H 145/70 H 150/88 H Blood Pressure Mean (mm Hg) 87 95 108 Source Monitor Monitor Monitor Position Sitting Sitting Blood Pressure Location Left Arm Right Arm History Since Last Visit- (Skip if this is Patient's initial visit) Have you changed medications since your No No No last visit? Any new allergies or adverse reactions No No No Had a fall/change in ADL's that may No No increase risk of falls Signs or symptoms of abuse and/or No No No neglect since last visit Have you been in the hospital since your No No No last visit? Has dressing in place as prescribed Yes Yes Yes Has compression in place as prescribed Yes Yes Yes Has offloadiing in place as prescribed N/A N/A Yes Experienced any changes in pain level or No No No management Left Footwear Regular Shoe Right Footwear Regular Shoe Pain Scale: 0-10 Numeric Is Patient Pain Free? Yes Yes Yes 10/06/24 09:54 WC - Today's Visit Information Type of service Follow-up Visit (Physician/ORACLE ADF CONSULTANT ) Arrival Mode Ambulatory Transfer Assistance None Patient Identification Verified (Name & Yes ) Patient Requires Transmission-Based No Precautions Vital Signs Temperature (97.8 F-99.1 F) 96.7 F L Temperature Source Temporal Pulse Rate (60-100) 91 Pulse Location Monitor Respiratory Rate (12-18) 18 Respiratory rate source Observation Oxygen Delivery Method Blood Pressure (90/60-120/80) 147/60 H Blood Pressure Mean (mm Hg) 89 Source Monitor Position Semi-Fowlers Blood Pressure Location Left Arm History Since Last Visit- (Skip if this is Patient's initial visit) Have you changed medications since your No last visit? Any new allergies or adverse reactions No Had a fall/change in ADL's that may No increase risk of falls Signs or symptoms of abuse and/or No neglect since last visit Have you been in the hospital since your No last visit? Has dressing in place as prescribed Yes Has compression in place as prescribed N/A Has offloadiing in place as prescribed Yes Experienced any changes in pain level or No management Left Footwear Regular Shoe Right Footwear Regular Shoe Pain Scale: 0-10 Numeric Is Patient Pain Free? Yes - Nurse 1 - General Ulcer Measurement Start: 09/15/24 09:21 Freq: Status: Active Protocol: Activity Type Activity Date Activity User E-sign Co-sign Detail Recorded Client Recorded Date Recorded By Document 09/15/24 09:21 ML [id number] 09/15/24 09:28 ML Document 09/22/24 09:15 GM [id number] 09/22/24 09:21 GM Document 09/29/24 09:27 DL [id number] 09/29/24 09:38 DL Document 10/06/24 09:54 RB [id number] 10/06/24 10:41 RB 09/15/24 09/22/24 09/29/24 09:21 09:15 09:27 Wound Center Nurse 1 #8 L Tenorio cluster -Combined with other wound -Current Size (cm) - Length 1.8 2.5 1.6 -Current Size (cm) - Width 4 4.0 0.5 -Current Size (cm) - Depth 0.4 0.3 0.3 -Total Square Cm 7.2 10.00 0.80 -Date of Last Picture (Recall this 09/22/24 field) -Photo Taken Yes -Epithelialization Small 1-33% -Tunneling No -Tunneling Position (O'clock) 1 -Tunneling Distance (cm) 1 -Undermining/Tunneling No -Circular Undermining No -Exudate Amt Medium Medium Medium -Exudate Type Serosanguineous Serosanguineous Serosanguineous -Wound Margin Distinct, Distinct, Outline Outline Attached Attached -Granulation Amt Medium (34-66%) Medium (34-66%) None Present (0 %) -Granulation Quality Red Red -Slough/Fibrin Yes Yes -Necrosis Amt Medium (34-66%) Medium (34-66%) Small (1-33%) -Necrotic Tissue Type Adherent Slough Adherent Slough Adherent Slough -Structure Exposed N/A -Texture (Mima-wound Skin Appearance) Assessed Assessed Scarring -Moisture (Mima-wound Skin Appearance) Assessed Assessed, Dry/Scaly Maceration -Color (Mima-wound Skin Appearance) Assessed Assessed, Hemosiderin Erythema Staining -Temperature (Mima-wound Skin No Abnormality No Abnormality No Abnormality Appearance) (Pt Warm) (Pt Warm) (Pt Warm) -Tenderness on Palpation (Mima-wound No No No Skin Appearance) -Ulcer Cleansing Soap and Water Soap and Water Soap and Water -Foul Odor after Cleansing Yes No No -Anesthetic Used 5% Lidocaine 5% Lidocaine 5% Lidocaine Gel Gel Gel Left Calf (cm) 28.2 Left Ankle (cm) 18.8 10/06/24 09:54 Wound Center Nurse 1 #8 L Tenorio cluster -Combined with other wound No -Current Size (cm) - Length 2.3 -Current Size (cm) - Width 4 -Current Size (cm) - Depth 0.5 -Total Square Cm 9.2 -Date of Last Picture (Recall this field) -Photo Taken -Epithelialization -Tunneling No -Tunneling Position (O'clock) -Tunneling Distance (cm) -Undermining/Tunneling No -Circular Undermining No -Exudate Amt Large -Exudate Type Serosanguineous -Wound Margin Distinct, Outline Attached -Granulation Amt Medium (34-66%) -Granulation Quality Rose -Slough/Fibrin Yes -Necrosis Amt Medium (34-66%) -Necrotic Tissue Type Adherent Slough -Structure Exposed N/A -Texture (Mima-wound Skin Appearance) Assessed, Scarring -Moisture (Mima-wound Skin Appearance) Assessed -Color (Mima-wound Skin Appearance) Assessed -Temperature (Mima-wound Skin No Abnormality Appearance) (Pt Warm) -Tenderness on Palpation (Mima-wound No Skin Appearance) -Ulcer Cleansing Wound Cleanser -Foul Odor after Cleansing No -Anesthetic Used 4% Lidocaine Solution Left Calf (cm) Left Ankle (cm) WC - Nurse 2 - General Ulcer CM Notes Start: 09/15/24 09:21 Freq: Status: Active Protocol: Activity Type Activity Date Activity User E-sign Co-sign Detail Recorded Client Recorded Date Recorded By Document 09/15/24 09:57 JF [id number] 09/15/24 10:01 JF Document 09/22/24 09:41 JF [id number] 09/22/24 09:48 JF Document 09/29/24 09:42 DS [id number] 09/29/24 09:49 DS Document 10/06/24 10:23 JF [id number] 10/06/24 10:27 JF Edit Result 10/06/24 10:23 JF (1) [id number] 10/06/24 10:30 JF (1) #8 L Tenorio cluster - Expiration Date => 04/08/29 - Product Lot Number => [id number] - Percent Used => 100 - Lot number of Saline Used => [id number] 09/15/24 09/22/24 09/29/24 09:57 09:41 09:42 Wound Center Nurse 2 #8 L Tenorio cluster -Time 09:57 09:41 09:42 -Correct Patient Yes Yes Yes -Correct Side, Site, Position Yes Yes Yes -Correct Procedure Yes Yes Yes -Procedure Performed Yes Yes Yes -Type of Procedure Debridement Debridement Debridement -Clinical Debridement Muscle / Fascia Muscle / Fascia Muscle / Fascia -Tissue Removed Muscle Muscle Muscle -Post Debridement (cm) - Length 2.2 1.8 2.0 -Post Debridement (cm) - Width 3.6 3.4 2.5 -Post Debridement (cm) - Depth 0.5 0.4 0.5 -Total Square (Post) (cm) 7.92 6.12 5.00 -Area of Debridement (cm) - Length 2.2 1.8 2.0 -Area of Debridement (cm) - Width 3.6 3.4 2.5 -Total Square (Area) (cm) 7.92 6.12 5.00 -Tunneling Yes Yes No -Tunneling Position (O'clock) 12 12 -Tunneling Distance (cm) 1.5 2.5 -Undermining/Tunneling No No No -Circular Undermining No No No -Wound/Ulcer Outcome Not Healed Not Healed Not Healed -Ulcer Cleansing Rinsed/ Rinsed/ Rinsed/ Irrigated with Irrigated with Irrigated with Saline Saline Saline -Foul Odor after Cleansing No No No -Bioengineered Tissue Yes Yes Yes -Type of Bioengineered Tissue Epicord Epicord Epicord -Expiration Date 11/06/28 03/08/29 03/08/29 -Product Lot Number [id number] -Percent Used 100 100 100 -Lot number of Saline Used [id number] -Bleeding Controlled with Pressure Pressure Pressure -Treatment Response Procedure Procedure Procedure Tolerated Well Tolerated Well Tolerated Well -Offloading No No -Debridement - Muscle / Fascia, 1st No No No 20sq cm -Apply Skin Sub - 1st 25 sq cm - Legs 1 1 1 -Epicord (per sq cm) 6 6 6 Pain Scale: 0-10 Numeric Is Patient Pain Free? Yes Yes Yes 10/06/24 10:23 Wound Center Nurse 2 #8 L Tenorio cluster -Time 10:23 -Correct Patient Yes -Correct Side, Site, Position Yes -Correct Procedure Yes -Procedure Performed Yes -Type of Procedure Debridement -Clinical Debridement Muscle / Fascia -Tissue Removed Muscle -Post Debridement (cm) - Length 2.2 -Post Debridement (cm) - Width 2.1 -Post Debridement (cm) - Depth 0.3 -Total Square (Post) (cm) 4.62 -Area of Debridement (cm) - Length 2.2 -Area of Debridement (cm) - Width 2.1 -Total Square (Area) (cm) 4.62 -Tunneling Yes -Tunneling Position (O'clock) 12 -Tunneling Distance (cm) 1.0 -Undermining/Tunneling No -Circular Undermining No -Wound/Ulcer Outcome Not Healed -Ulcer Cleansing Rinsed/ Irrigated with Saline -Foul Odor after Cleansing No -Bioengineered Tissue Yes -Type of Bioengineered Tissue Epicord -Expiration Date 04/08/29 -Product Lot Number [id number] -Percent Used 100 -Lot number of Saline Used [id number] -Bleeding Controlled with Pressure -Treatment Response Procedure Tolerated Well -Offloading No -Debridement - Muscle / Fascia, 1st No 20sq cm -Apply Skin Sub - 1st 25 sq cm - Legs 1 -Epicord (per sq cm) 6 Pain Scale: 0-10 Numeric Is Patient Pain Free? Yes - Nurse 3 - General Ulcer D/C NN Start: 09/15/24 09:21 Freq: Status: Active Protocol: Activity Type Activity Date Activity User E-sign Co-sign Detail Recorded Client Recorded Date Recorded By Document 09/15/24 10:34 KW [id number] 09/15/24 10:35 KW Document 09/22/24 09:59 MT [id number] 09/22/24 10:44 MT Document 10/06/24 10:37 GM [id number] 10/06/24 10:38 GM 09/15/24 09/22/24 10/06/24 10:34 09:59 10:37 Wound Care Center Nurse 3 #8 L Tenorio cluster -Ulcer Cleansing Not Cleansed -Foul Odor after Cleansing No -Negative Pressure Wound Therapy Continue -Setting (mmHg) 125 -Negative Pressure is Continuous -Primary Dressing Applied Promogran Madelaine Matter -Primary Dressing Applied Other -Other Dressing abd -Primary Dressing Covered/Secured with Dry Gauze & Dry Gauze & Roll Gauze, Roll Gauze, Secured with Secured with Tape Tape -NPWT Application Charge NPWT & Debridement (nc ) -Promogran Madelaine Matter 1 Left -Lotion applied to leg before No compression wrap -Compression Wrap Ino Wrap Ino Wrap Ino Wrap Pain Scale: 0-10 Numeric Is Patient Pain Free? Yes Yes Yes - Visit Discharge Discharge Condition Stable Stable Stable Ambulatory Status Ambulatory Ambulatory Ambulatory Transportation Private Auto Private Auto Medication Reconcilliation completed & No No provided to patient/care provider Clinical Summary of Care Provided Yes Yes Notes: pt verbalized understanding to not get wound wet. Assessment/Plan Assessment/Plan (1) Idiopathic chronic venous hypertension of left leg with ulcer: CODE(S): I87.312 - Chronic venous hypertension (idiopathic) with ulcer of left lower extremity; L97.929 - Non-pressure chronic ulcer of unspecified part of left lower leg with unspecified severity PLAN: Patient was examined and evaluated. All findings were discussed with the patient. All questions were answered to the patient's satisfaction. Excisional debridement down to and including subcutaneous tissue, fascia and muscle with a number 3 mm dermal curette to the left anterior leg without incident. Predebridement measurement was 1.9 x 1.9 x 0.2 cm. Postdebridement measurement is 2.2 x 2.1 x 0.3 cm. EpiCord 2.0 x 3.0 cm graft was applied to the left leg full-thickness ulceration with 100% use. Sixth application. The graft site was free and clear of any infection. The wound/skin graft substitute was dressed with nonadherent bandage secured in place with Steri-Strips followed by negative pressure wound VAC sent to 125 mmHg followed by dry sterile dressing compression wrap to the left lower extremity. Educated to continue her home physical therapy and continue to educate the patient on smoking cessation. Follow-up at the wound care center with Dr. Estevez in 1 week. 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
--- NOTE | 2024-10-06 13:53 | WC ---
PHOTO 10/06/24 RODNEY
== END 2024-10-08 23:59 | disposition home or self-care (01) ==
LOC: WC 10:00
PROVIDERS: Referring Provider Nurse Practitioner Family; Visit Provider Podiatrist Foot & Ankle Surgery
DX: I87.312 Chronic venous hypertension (idiopathic) with ulcer of left lower extremity (principal); L97.823 Non-pressure chronic ulcer of other part of left lower leg with necrosis of muscle; F17.210 Nicotine dependence, cigarettes, uncomplicated; Z86.14 Personal history of Methicillin resistant Staphylococcus aureus infection
CPT/HCPCS: 15271; Q4187

== ENCOUNTER 2024-11-03 09:45 | Outpatient (RCR) | payer MEDICAID, SELFPAY ==
[2024-10-09 00:58] VITALS: BP 147/60; PULSE 91; RESP 18; TEMP 35.9
[2024-10-13 09:29] VITALS: BP 124/67; PULSE 85; RESP 18; TEMP 35.9
--- NOTE | 2024-10-13 10:07 | PCM.WC.PN ---
History of Present Illness Date of Service: 10/13/24 Chief Complaint: nonhealing ulcer left anterior leg. 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 Currently on amniotic skin graft substitutes and is doing well. Progress of Wound: Left lower extremity anterior leg wound stable no sign of infection. Subjective Subjective Ms. Calvert is a 64-year-old female presenting the wound care center today for follow-up evaluation of full-thickness wound to the left anterior leg. She is currently getting skin graft substitute and is doing well. She is left her graft clean dry and intact. She is ambulating as tolerated. She is elevating her leg whenever at rest. She is doing well. Denies any new onset of trauma. Denies constitutional symptoms. Other pedal complaints at this time. Objective Data Objective Data Vital Signs: Vital Signs Temp Pulse Resp BP O2 Del Method 96.7 F L 85 18 124/67 H Room Air 10/13/24 09:29 10/13/24 09:29 10/13/24 09:29 10/13/24 09:29 10/13/24 09:29 Oxygen Delivery Method Room Air Physical Exam Narrative Vascular: DP and PT pulses are palpable. CFT is brisk. Skin temperature great is warm to warm from proximal ankle to the distal digits to left lower extremity. Nonpitting edema appreciated to left lower extremity. No erythema. Neurological: Light touch intact. Patient does respond to painful stimuli. Dermatological: Full-thickness wound with exposed muscle tendon to the anterior left leg. Wound measures 2.2 x 2.2 x 0.4 cm. Wound base is granular nature. No probe to bone. No drainage or malodor. Evidence of a 12:00 tunneling measuring 1.1 cm. Excisional debridement down to and including subcutaneous tissue, fascia and muscle with a number 3 mm dermal curette to the left anterior leg without incident. Predebridement measurement was 1.9 x 2.0 x 0.3 cm. Postdebridement measurement is 2.2 x 2.2 x 0.4 cm. EpiFix Mesh 4.0 x 4.5 cm graft was applied to the left leg full-thickness ulceration with 100% use. Seventh application. The graft site was free and clear of any infection. The wound/skin graft substitute was dressed with nonadherent bandage secured in place with Steri-Strips followed by dry sterile dressing and Tubigrip for compression control. Musculoskeletal: No pain on palpation of full-thickness ulceration to left tibia. No pain with calf compression. Debridement Note Debridement Note Debridement Free Text: Excisional debridement down to and including subcutaneous tissue, fascia and muscle with a number 3 mm dermal curette to the left anterior leg without incident. Predebridement measurement was 1.9 x 2.0 x 0.3 cm. Postdebridement measurement is 2.2 x 2.2 x 0.4 cm. EpiFix Mesh 4.0 x 4.5 cm graft was applied to the left leg full-thickness ulceration with 100% use. Seventh application. The graft site was free and clear of any infection. The wound/skin graft substitute was dressed with nonadherent bandage secured in place with Steri-Strips followed by dry sterile dressing and Tubigrip for compression control. 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 Any new allergies or adverse reactions No Had a fall/change in ADL's that may No increase risk of falls Signs or symptoms of abuse and/or No neglect since last visit Have you been in the hospital since your No last visit? Has dressing in place as prescribed Yes Has compression in place as prescribed Yes Has offloadiing in place as prescribed N/A Experienced any changes in pain level or No management Left Footwear Regular Shoe Right Footwear Regular Shoe Pain Scale: 0-10 Numeric Is Patient Pain Free? Yes WC - Nurse 1 - General Ulcer Measurement Start: 10/13/24 09:28 Freq: Status: Active Protocol: Activity Type Activity Date Activity User E-sign Co-sign Detail Recorded Client Recorded Date Recorded By Document 10/13/24 09:29 KW [id number] 10/13/24 09:39 KW 10/13/24 09:29 Wound Center Nurse 1 #8 L Ten[place] cluster -Current Size (cm) - Length 2 -Current Size (cm) - Width 3.9 -Current Size (cm) - Depth 0.3 -Total Square Cm 7.8 -Photo Taken Yes -Exudate Amt Small -Exudate Type Serosanguineous -Wound Margin Flat & Intact -Granulation Amt Medium (34-66%) -Granulation Quality [place] -Slough/Fibrin Yes -Necrosis Amt Small (1-33%) -Necrotic Tissue Type Adherent Slough -Structure Exposed N/A -Texture (Mima-wound Skin Appearance) No Abnormality -Moisture (Mima-wound Skin Appearance) No Abnormality -Color (Mima-wound Skin Appearance) No Abnormality -Temperature (Mima-wound Skin No Abnormality Appearance) (Pt Warm) -Tenderness on Palpation (Mima-wound No Skin Appearance) -Ulcer Cleansing Soap and Water -Foul Odor after Cleansing Yes -Anesthetic Used 5% Lidocaine Gel - Nurse 2 - General Ulcer CM Notes Start: 10/13/24 09:28 Freq: Status: Active Protocol: Activity Type Activity Date Activity User E-sign Co-sign Detail Recorded Client Recorded Date Recorded By Document 10/13/24 09:47 JF [id number] 10/13/24 09:55 JF 10/13/24 09:47 Wound Center Nurse 2 -Time 09:53 -Correct Patient Yes -Correct Side, Site, Position Yes -Correct Procedure Yes -Procedure Performed Yes -Type of Procedure Debridement -Clinical Debridement Subcutaneous -Tissue Removed Subcutaneous -Post Debridement (cm) - Length 2.2 -Post Debridement (cm) - Width 2.2 -Post Debridement (cm) - Depth 0.4 -Total Square (Post) (cm) 4.84 -Area of Debridement (cm) - Length 2.2 -Area of Debridement (cm) - Width 2.2 -Total Square (Area) (cm) 4.84 -Tunneling No -Undermining/Tunneling No -Circular Undermining No -Wound/Ulcer Outcome Not Healed -Ulcer Cleansing Rinsed/ Irrigated with Saline -Foul Odor after Cleansing No -Bioengineered Tissue Yes -Type of Bioengineered Tissue Epifix Mesh -Expiration Date 04/08/29 -Product Lot Number [id number] -Percent Used 100 -Lot number of Saline Used [id number] -Bleeding Controlled with Pressure -Treatment Response Procedure Tolerated Well -Offloading No -Debridement - Subq, 1st 20sq cm No -Apply Skin Sub - 1st 25 sq cm - Legs 1 -Epifix Mesh (per sq cm) 11 Pain Scale: 0-10 Numeric Is Patient Pain Free? Yes Assessment/Plan Assessment/Plan (1) Idiopathic chronic venous hypertension of left leg with ulcer: CODE(S): I87.312 - Chronic venous hypertension (idiopathic) with ulcer of left lower extremity; L97.929 - Non-pressure chronic ulcer of unspecified part of left lower leg with unspecified severity PLAN: Patient was examined and evaluated. All findings were discussed with the patient. All questions were answered to the patient's satisfaction. Excisional debridement down to and including subcutaneous tissue, fascia and muscle with a number 3 mm dermal curette to the left anterior leg without incident. Predebridement measurement was 1.9 x 2.0 x 0.3 cm. Postdebridement measurement is 2.2 x 2.2 x 0.4 cm. The left lower extremity was wiped clean and patted dry. The 12:00 tunneling was packed with moist [place]. EpiFix Mesh 4.0 x 4.5 cm graft was applied to the left leg full-thickness ulceration with 100% use. Seventh application. The graft site was free and clear of any infection. The wound/skin graft substitute was dressed with nonadherent bandage secured in place with Steri-Strips followed by dry sterile dressing and Tubigrip for compression control. Follow-up at the wound care center with Dr. Estevez in 1 week. 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
--- NOTE | 2024-10-14 09:33 | WC ---
PHOTO 10/13/24 LEFT RODNEY CLUSTER
[2024-10-20 09:29] VITALS: BP 127/55; PULSE 88; RESP 18; TEMP 36.4
--- NOTE | 2024-10-20 14:10 | PCM.WC.PN ---
History of Present Illness Date of Service: 10/20/24 Chief Complaint: nonhealing ulcer left anterior leg. 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 Currently on amniotic skin graft substitutes and is doing well. Progress of Wound: Left lower extremity anterior leg wound stable no sign of infection. Subjective Subjective Ms. Calvert is a 64-year-old female presenting to wound care center today for follow-up evaluation of anterior left leg full-thickness wound. She has been compliant with keeping her dressing clean dry and intact and only changing the outer dressing. She is ambulating as tolerated and is pain-free at this time. Denies trauma. Denies constitutional symptoms. No other pedal complaints at this time. Patient is doing her best to continue smoking sensation. Objective Data Objective Data Vital Signs: Vital Signs Temp Pulse Resp BP O2 Del Method 97.6 F L 88 18 127/55 H Room Air 10/20/24 09:29 10/20/24 09:29 10/20/24 09:29 10/20/24 09:29 10/13/24 09:29 Oxygen Delivery Method Room Air Physical Exam Narrative Vascular: DP and PT pulses are palpable. CFT is brisk. Skin temperature great is warm to warm from proximal ankle to the distal digits to left lower extremity. Nonpitting edema appreciated to left lower extremity. No erythema. Neurological: Light touch intact. Patient does respond to painful stimuli. Dermatological: Full-thickness wound with exposed muscle tendon to the anterior left leg. Wound measures 1.6 x 1.1 x 0.1 cm. Wound base is granular nature. No probe to bone. No drainage or malodor. Evidence of a 12:00 tunneling measuring 1.5 cm. Excisional debridement down to and including subcutaneous tissue, fascia and muscle with a number 3 mm dermal curette to the left anterior leg without incident. Predebridement measurement was 1.3 x 0.8 x 0.1 cm. Postdebridement measurement is 1.6 x 1.1 x 0.1 cm. EpiFix 18 mm disc graft was applied to the left leg full-thickness ulceration with 100% use. Eighth application. The graft site was free and clear of any infection. The wound/skin graft substitute was dressed with nonadherent bandage secured in place with Steri-Strips followed by dry sterile dressing and Tubigrip for compression control. Musculoskeletal: No pain on palpation of full-thickness ulceration to left tibia. No pain with calf compression. Debridement Note Debridement Note Debridement Free Text: Excisional debridement down to and including subcutaneous tissue, fascia and muscle with a number 3 mm dermal curette to the left anterior leg without incident. Predebridement measurement was 1.3 x 0.8 x 0.1 cm. Postdebridement measurement is 1.6 x 1.1 x 0.1 cm. EpiFix 18 mm disc graft was applied to the left leg full-thickness ulceration with 100% use. Eighth application. The graft site was free and clear of any infection. The wound/skin graft substitute was dressed with nonadherent bandage secured in place with Steri-Strips followed by dry sterile dressing and Tubigrip for compression control. 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 (Physician/LABORER CUTTING TOOL ) ) Arrival Mode Ambulatory Ambulatory Transfer Assistance None Patient Identification Verified (Name & Yes Yes ) Patient Requires Transmission-Based No Precautions Vital Signs Temperature (97.8 F-99.1 F) 96.7 F L 97.6 F L Temperature Source Temporal Temporal Pulse Rate (60-100) 85 88 Pulse Location Monitor Monitor Respiratory Rate (12-18) 18 18 Respiratory rate source Observation Observation Oxygen Delivery Method Room Air Blood Pressure (90/60-120/80) 124/67 H 127/55 H Blood Pressure Mean (mm Hg) 86 79 Source Monitor Monitor Position Semi-Fowlers Blood Pressure Location Left Arm History Since Last Visit- (Skip if this is Patient's initial visit) Have you changed medications since your No No last visit? Any new allergies or adverse reactions No No Had a fall/change in ADL's that may No No increase risk of falls Signs or symptoms of abuse and/or No No neglect since last visit Have you been in the hospital since your No No last visit? Has dressing in place as prescribed Yes Yes Has compression in place as prescribed Yes Yes Has offloadiing in place as prescribed N/A Yes Experienced any changes in pain level or No No management Left Footwear Regular Shoe Right Footwear Regular Shoe Pain Scale: 0-10 Numeric Is Patient Pain Free? Yes Yes WC - Nurse 1 - General Ulcer Measurement Start: 10/13/24 09:28 Freq: Status: Active Protocol: Activity Type Activity Date Activity User E-sign Co-sign Detail Recorded Client Recorded Date Recorded By Document 10/13/24 09:29 KW [id number] 10/13/24 09:39 KW Document 10/20/24 09:29 DL [id number] 10/20/24 09:39 DL 10/13/24 10/20/24 09:29 09:29 Wound Center Nurse 1 #8 L Ten[place] cluster -Current Size (cm) - Length 2 1 -Current Size (cm) - Width 3.9 1.8 -Current Size (cm) - Depth 0.3 1.2 -Total Square Cm 7.8 1.8 -Photo Taken Yes -Tunneling Position (O'clock) 12 -Tunneling Distance (cm) 1.6 -Exudate Amt Small Medium -Exudate Type Serosanguineous Serosanguineous -Wound Margin Flat & Intact Thickened -Granulation Amt Medium (34-66%) Small (1-33%) -Granulation Quality [place] -Slough/Fibrin Yes -Necrosis Amt Small (1-33%) Large (67-100%) -Necrotic Tissue Type Adherent Slough Adherent Slough -Structure Exposed N/A N/A -Texture (Mima-wound Skin Appearance) No Abnormality Scarring -Moisture (Mima-wound Skin Appearance) No Abnormality Dry/Scaly -Color (Mima-wound Skin Appearance) No Abnormality No Abnormality -Temperature (Mima-wound Skin No Abnormality No Abnormality Appearance) (Pt Warm) (Pt Warm) -Tenderness on Palpation (Mima-wound No No Skin Appearance) -Ulcer Cleansing Soap and Water Soap and Water -Foul Odor after Cleansing Yes No -Anesthetic Used 5% Lidocaine 5% Lidocaine Gel Gel WC - Nurse 2 - General Ulcer CM Notes Start: 10/13/24 09:28 Freq: Status: Active Protocol: Activity Type Activity Date Activity User E-sign Co-sign Detail Recorded Client Recorded Date Recorded By Document 10/13/24 09:47 [id number] 10/13/24 09:55 Document 10/20/24 10:26 [facility] [id number] 10/20/24 10:38 [facility] 10/13/24 10/20/24 09:47 10:26 Wound Center Nurse 2 #8 L Tenorio cluster -Time 09:53 10:26 -Correct Patient Yes Yes -Correct Side, Site, Position Yes Yes -Correct Procedure Yes Yes -Procedure Performed Yes Yes -Type of Procedure Debridement Debridement -Clinical Debridement Subcutaneous Subcutaneous -Tissue Removed Subcutaneous Subcutaneous -Post Debridement (cm) - Length 2.2 1.6 -Post Debridement (cm) - Width 2.2 1.1 -Post Debridement (cm) - Depth 0.4 0.1 -Total Square (Post) (cm) 4.84 1.76 -Area of Debridement (cm) - Length 2.2 1.6 -Area of Debridement (cm) - Width 2.2 1.1 -Total Square (Area) (cm) 4.84 1.76 -Tunneling No Yes -Tunneling Position (O'clock) 12 -Tunneling Distance (cm) 1.5 -Undermining/Tunneling No No -Circular Undermining No No -Wound/Ulcer Outcome Not Healed Not Healed -Ulcer Cleansing Rinsed/ Rinsed/ Irrigated with Irrigated with Saline Saline -Foul Odor after Cleansing No No -Bioengineered Tissue Yes Yes -Type of Bioengineered Tissue Epifix Mesh Epifix Mesh -Expiration Date 04/08/29 05/09/29 -Product Lot Number [id number] -Percent Used 100 100 -Lot number of Saline Used [id number] -Bleeding Controlled with Pressure Pressure -Treatment Response Procedure Procedure Tolerated Well Tolerated Well -Offloading No -Debridement - Subq, 1st 20sq cm No No -Apply Skin Sub - 1st 25 sq cm - Legs 1 1 -Epifix 18mm Disc 3 -Epifix Mesh (per sq cm) 11 Pain Scale: 0-10 Numeric Is Patient Pain Free? Yes Yes WC - Nurse 3 - General Ulcer D/C NN Start: 10/13/24 09:28 Freq: Status: Active Protocol: Activity Type Activity Date Activity User E-sign Co-sign Detail Recorded Client Recorded Date Recorded By Document 10/13/24 10:08 CP [id number] 10/13/24 10:09 CP Document 10/20/24 10:55 DL [id number] 10/20/24 10:58 DL 10/13/24 10/20/24 10:08 10:55 Wound Care Center Nurse 3 #8 L Ten[place] cluster -Foul Odor after Cleansing No -Primary Dressing Applied C Hydrogel ($) -Other Dressing Epimesh/yariel/ hydrogel -Primary Dressing Covered/Secured with Dry Gauze & Dry Gauze & Roll Gauze Roll Gauze, Secured with Tape Left -Compression Wrap Ino Wrap Ino Wrap Treatment Response Procedure Tolerated Well Pain Scale: 0-10 Numeric Is Patient Pain Free? Yes Yes WC - Visit Discharge Discharge Condition Stable Stable Ambulatory Status Ambulatory Ambulatory Transportation Private Auto Private Auto Clinical Summary of Care Provided Yes Facility Type Home Health Orders Sent Yes Assessment/Plan Assessment/Plan (1) Idiopathic chronic venous hypertension of left leg with ulcer: CODE(S): I87.312 - Chronic venous hypertension (idiopathic) with ulcer of left lower extremity; L97.929 - Non-pressure chronic ulcer of unspecified part of left lower leg with unspecified severity PLAN: Patient was examined and evaluated. All findings were discussed with the patient. All questions were answered to the patient's satisfaction. Excisional debridement down to and including subcutaneous tissue, fascia and muscle with a number 3 mm dermal curette to the left anterior leg without incident. Predebridement measurement was 1.3 x 0.8 x 0.1 cm. Postdebridement measurement is 1.6 x 1.1 x 0.1 cm. 12:00 tunneling was packed with moist Yariel. EpiFix 18 mm disc graft was applied to the left leg full-thickness ulceration with 100% use. Eighth application. The graft site was free and clear of any infection. The wound/skin graft substitute was dressed with nonadherent bandage secured in place with Steri-Strips followed by dry sterile dressing and Tubigrip for compression control. Follow-up at the wound care center with Dr. Estevez in 1 week. 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
[2024-10-27 09:39] VITALS: BP 129/62; PULSE 83; RESP 18; TEMP 36.1
--- NOTE | 2024-10-27 11:44 | PN.PCM_ITS ---
History of Present Illness Date of Service: 10/27/24 Chief Complaint: nonhealing ulcer left anterior leg. 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 Currently on amniotic skin graft substitutes and is doing well. Progress of Wound: Left lower extremity anterior leg wound stable no sign of infection. Subjective Subjective Ms. Calvert is a 64-year-old female presented wound care center today for follow- up evaluation of full-thickness wound to anterior left leg. She has ambulating as tolerated. She missed improvement to the wound. She is getting dressing changes by home health. Denies trauma. Denies constitutional symptoms. No other pedal complaints at this time. Objective Data Objective Data Vital Signs: Vital Signs Temp Pulse Resp BP O2 Del Method 96.9 F L 83 18 129/62 H Room Air 10/27/24 09:39 10/27/24 09:39 10/27/24 09:39 10/27/24 09:39 10/27/24 09:39 Oxygen Delivery Method Room Air Physical Exam Narrative Vascular: DP and PT pulses are palpable. CFT is brisk. Skin temperature great is warm to warm from proximal ankle to the distal digits to left lower extremity. Nonpitting edema appreciated to left lower extremity. No erythema. Neurological: Light touch intact. Patient does respond to painful stimuli. Dermatological: Full-thickness wound with exposed muscle tendon to the anterior left leg. Wound measures 1.2 x 0.7 x 0.1 cm. Wound base is granular nature. No probe to bone. No drainage or malodor. Evidence of a 12:00 tunneling measuring 2.2 cm. Excisional debridement down to and including subcutaneous tissue, fascia and muscle with a number 3 mm dermal curette to the left anterior leg without incident. Predebridement measurement was 1.0 x 0.5 x 0.1 cm. Postdebridement measurement is 1.2 x 0.7 x 0.1 cm. EpiFix 18 mm disc graft was applied to the left leg full-thickness ulceration with 100% use. Ninth application. The graft site was free and clear of any infection. The wound/skin graft substitute was dressed with nonadherent bandage secured in place with Steri-Strips followed by dry sterile dressing and Tubigrip for compression control. Musculoskeletal: No pain on palpation of full-thickness ulceration to left tibia. No pain with calf compression. Debridement Note Debridement Note Debridement Free Text: Excisional debridement down to and including subcutaneous tissue, fascia and muscle with a number 3 mm dermal curette to the left anterior leg without incident. Predebridement measurement was 1.0 x 0.5 x 0.1 cm. Postdebridement measurement is 1.2 x 0.7 x 0.1 cm. EpiFix 18 mm disc graft was applied to the left leg full-thickness ulceration with 100% use. Ninth application. The graft site was free and clear of any infection. The wound/skin graft substitute was dressed with nonadherent bandage secured in place with Steri-Strips followed by dry sterile dressing and Tubigrip for compression control. Post-Debridement Measurements and Additional Note: Post-Debridement Measurements/Treatment - Nurse 1 - General Ulcer Assessment Start: 10/13/24 09:28 Freq: Status: Active Protocol: [email or web address] Activity Type Activity Date Activity User E-sign Co-sign Detail Recorded Client Recorded Date Recorded By Document 10/13/24 09:29 KW [id number] 10/13/24 09:39 KW Document 10/20/24 09:29 DL [id number] 10/20/24 09:39 DL Document 10/27/24 09:39 KW [id number] 10/27/24 09:46 KW 10/13/24 10/20/24 10/27/24 09:29 09:29 09:39 - Today's Visit Information Type of service Follow-up Visit Follow-up Visit Follow-up Visit (Physician/REGIONAL SALES LEADER (Physician/REGIONAL SALES LEADER (Physician/REGIONAL SALES LEADER ) ) ) Arrival Mode Ambulatory Ambulatory Ambulatory Transfer Assistance None Patient Identification Verified (Name & Yes Yes Yes ) Patient Requires Transmission-Based No Precautions Vital Signs Temperature (97.8 F-99.1 F) 96.7 F L 97.6 F L 96.9 F L Temperature Source Temporal Temporal Temporal Pulse Rate (60-100) 85 88 83 Pulse Location Monitor Monitor Monitor Respiratory Rate (12-18) 18 18 18 Respiratory rate source Observation Observation Observation Oxygen Delivery Method Room Air Room Air Blood Pressure (90/60-120/80) 124/67 H 127/55 H 129/62 H Blood Pressure Mean (mm Hg) 86 79 84 Source Monitor Monitor Monitor Position Semi-Fowlers Sitting Blood Pressure Location Left Arm Left Arm History Since Last Visit- (Skip if this is Patient's initial visit) Have you changed medications since your No No No last visit? Any new allergies or adverse reactions No No No Had a fall/change in ADL's that may No No No increase risk of falls Signs or symptoms of abuse and/or No No No neglect since last visit Have you been in the hospital since your No No No last visit? Has dressing in place as prescribed Yes Yes Yes Has compression in place as prescribed Yes Yes Yes Has offloadiing in place as prescribed N/A Yes N/A Experienced any changes in pain level or No No No management Left Footwear Regular Shoe Regular Shoe Right Footwear Regular Shoe Regular Shoe Pain Scale: 0-10 Numeric Is Patient Pain Free? Yes Yes Yes WC - Nurse 1 - General Ulcer Measurement Start: 10/13/24 09:28 Freq: Status: Active Protocol: Activity Type Activity Date Activity User E-sign Co-sign Detail Recorded Client Recorded Date Recorded By Document 10/13/24 09:29 KW [id number] 10/13/24 09:39 KW Document 10/20/24 09:29 DL [id number] 10/20/24 09:39 DL Document 10/27/24 09:39 KW [id number] 10/27/24 09:46 KW 10/13/24 10/20/24 10/27/24 09:29 09:29 09:39 Wound Center Nurse 1 #8 L Ten[place] cluster -Current Size (cm) - Length 2 1 1.3 -Current Size (cm) - Width 3.9 1.8 0.8 -Current Size (cm) - Depth 0.3 1.2 0.3 -Total Square Cm 7.8 1.8 1.04 -Date of Last Picture (Recall this 10/27/24 field) -Photo Taken Yes -Epithelialization Large 67-100% -Tunneling Position (O'clock) 12 -Tunneling Distance (cm) 1.6 -Exudate Amt Small Medium Small -Exudate Type Serosanguineous Serosanguineous Serosanguineous -Wound Margin Flat & Intact Thickened Thickened & Rolled Under -Granulation Amt Medium (34-66%) Small (1-33%) Large (67-100%) -Granulation Quality [place] -Slough/Fibrin Yes -Necrosis Amt Small (1-33%) Large (67-100%) -Necrotic Tissue Type Adherent Slough Adherent Slough -Structure Exposed N/A N/A -Texture (Mima-wound Skin Appearance) No Abnormality Scarring Assessed -Moisture (Mima-wound Skin Appearance) No Abnormality Dry/Scaly Assessed -Color (Mima-wound Skin Appearance) No Abnormality No Abnormality Assessed -Temperature (Mima-wound Skin No Abnormality No Abnormality No Abnormality Appearance) (Pt Warm) (Pt Warm) (Pt Warm) -Tenderness on Palpation (Mima-wound No No No Skin Appearance) -Ulcer Cleansing Soap and Water Soap and Water Soap and Water -Foul Odor after Cleansing Yes No No -Anesthetic Used 5% Lidocaine 5% Lidocaine 5% Lidocaine Gel Gel Gel WC - Nurse 2 - General Ulcer CM Notes Start: 10/13/24 09:28 Freq: Status: Active Protocol: Activity Type Activity Date Activity User E-sign Co-sign Detail Recorded Client Recorded Date Recorded By Document 10/13/24 09:47 [id number] 10/13/24 09:55 Document 10/20/24 10:26 [facility] [id number] 10/20/24 10:38 [facility] Document 10/27/24 10:04 [id number] 10/27/24 10:10 10/13/24 10/20/24 10/27/24 09:47 10:26 10:04 Wound Center Nurse 2 #8 L [place] cluster -Time 09:53 10:26 10:05 -Correct Patient Yes Yes Yes -Correct Side, Site, Position Yes Yes Yes -Correct Procedure Yes Yes Yes -Procedure Performed Yes Yes Yes -Type of Procedure Debridement Debridement Debridement -Clinical Debridement Subcutaneous Subcutaneous Subcutaneous -Tissue Removed Subcutaneous Subcutaneous Subcutaneous -Post Debridement (cm) - Length 2.2 1.6 1.2 -Post Debridement (cm) - Width 2.2 1.1 0.7 -Post Debridement (cm) - Depth 0.4 0.1 0.1 -Total Square (Post) (cm) 4.84 1.76 0.84 -Area of Debridement (cm) - Length 2.2 1.6 1.2 -Area of Debridement (cm) - Width 2.2 1.1 0.7 -Total Square (Area) (cm) 4.84 1.76 0.84 -Tunneling No Yes No -Tunneling Position (O'clock) 12 -Tunneling Distance (cm) 1.5 -Undermining/Tunneling No No No -Circular Undermining No No No -Wound/Ulcer Outcome Not Healed Not Healed Not Healed -Ulcer Cleansing Rinsed/ Rinsed/ Rinsed/ Irrigated with Irrigated with Irrigated with Saline Saline Saline -Foul Odor after Cleansing No No No -Bioengineered Tissue Yes Yes Yes -Type of Bioengineered Tissue Epifix Mesh Epifix Mesh Epifix 18mm Disc -Expiration Date 04/08/29 05/09/29 05/09/29 -Product Lot Number [id number] -Percent Used 100 100 100 -Lot number of Saline Used [id number] -Bleeding Controlled with Pressure Pressure Pressure -Treatment Response Procedure Procedure Procedure Tolerated Well Tolerated Well Tolerated Well -Offloading No No -Debridement - Subq, 1st 20sq cm No No No -Apply Skin Sub - 1st 25 sq cm - Legs 1 1 1 -Epifix 18mm Disc 3 3 -Epifix Mesh (per sq cm) 11 Pain Scale: 0-10 Numeric Is Patient Pain Free? Yes Yes Yes WC - Nurse 3 - General Ulcer D/C NN Start: 10/13/24 09:28 Freq: Status: Active Protocol: Activity Type Activity Date Activity User E-sign Co-sign Detail Recorded Client Recorded Date Recorded By Document 10/13/24 10:08 CP [id number] 10/13/24 10:09 CP Document 10/20/24 10:55 DL [id number] 10/20/24 10:58 DL Document 10/27/24 10:20 KW [id number] 10/27/24 10:21 KW 10/13/24 10/20/24 10/27/24 10:08 10:55 10:20 Wound Care Center Nurse 3 #8 L Ten[place] cluster -Foul Odor after Cleansing No -Primary Dressing Applied C Hydrogel -Other Dressing Epimesh/yariel/ hydrogel -Primary Dressing Covered/Secured with Dry Gauze & Dry Gauze & Dry Gauze & Roll Gauze Roll Gauze, Roll Gauze, Secured with Secured with Tape Tape Right -Compression Wrap Ino Wrap Left -Compression Wrap Ino Wrap Ino Wrap Ino Wrap Treatment Response Procedure Tolerated Well Pain Scale: 0-10 Numeric Is Patient Pain Free? Yes Yes Yes WC - Visit Discharge Discharge Condition Stable Stable Stable Ambulatory Status Ambulatory Ambulatory Ambulatory Transportation Private Auto Private Auto Medication Reconcilliation completed & No provided to patient/care provider Clinical Summary of Care Provided Yes Yes Facility Type Home Health Orders Sent Yes Assessment/Plan Assessment/Plan (1) Idiopathic chronic venous hypertension of left leg with ulcer: CODE(S): I87.312 - Chronic venous hypertension (idiopathic) with ulcer of left lower extremity; L97.929 - Non-pressure chronic ulcer of unspecified part of left lower leg with unspecified severity PLAN: Patient was examined and evaluated. All findings were discussed with the patient. All questions were answered to the patient's satisfaction. Excisional debridement down to and including subcutaneous tissue, fascia and muscle with a number 3 mm dermal curette to the left anterior leg without incident. Predebridement measurement was 1.0 x 0.5 x 0.1 cm. Postdebridement measurement is 1.2 x 0.7 x 0.1 cm. EpiFix 18 mm disc graft was applied to the left leg full-thickness ulceration with 100% use. Ninth application. The graft site was free and clear of any infection. The wound/skin graft substitute was dressed with nonadherent bandage secured in place with Steri-Strips followed by dry sterile dressing and Tubigrip for compression control. Continue to encourage the patient on smoking cessation. Follow-up at the wound care center with Dr. Estevez in 1 week. 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
--- NOTE | 2024-10-27 14:21 | NURSING ---
PHOTO 10/27/24 Left Tenorio
[2024-11-03 09:32] VITALS: BP 133/68; PULSE 80; RESP 18; TEMP 36.6
--- NOTE | 2024-11-03 12:02 | PN.PCM_ITS ---
History of Present Illness Date of Service: 11/03/24 Chief Complaint: nonhealing ulcer left anterior leg. 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 Currently on amniotic skin graft substitutes and is doing well. Progress of Wound: Left lower extremity anterior leg wound stable no sign of infection. Subjective Subjective Ms. Calvert is a 64-year-old female presenting to wound care center today follow- up evaluation of full-thickness wound to the left anterior leg. She has a w orking with physical therapy at home and is doing well and able to walk longer for periods of time than previous. She has left her dressing clean dry and intact. She still smokes but states states she is smoking less. She is keeping her protein up. Denies trauma. Denies constitutional symptoms. Other pedal complaints at this time. Objective Data Objective Data Vital Signs: Vital Signs Temp Pulse Resp BP O2 Del Method 97.8 F 80 18 133/68 H Room Air 11/03/24 09:32 11/03/24 09:32 11/03/24 09:32 11/03/24 09:32 10/27/24 09:39 Oxygen Delivery Method Room Air Physical Exam Narrative Vascular: DP and PT pulses are palpable. CFT is brisk. Skin temperature great is warm to warm from proximal ankle to the distal digits to left lower extremity. Nonpitting edema appreciated to left lower extremity. No erythema. Neurological: Light touch intact. Patient does respond to painful stimuli. Dermatological: Full-thickness wound to left anterior leg, wound measures 1.2 x 0.3 x 0.1 cm. Wound base is granular nature. No probe to bone. No drainage or malodor. Evidence of a 12:00 tunneling measuring 1.7 cm Excisional debridement down to and including subcutaneous tissue with a number 3 mm dermal curette to the left anterior leg without incident. Predebridement measurement was 0.8 x 0.2 x 0.1 cm. Postdebridement measurement is 1.2 x 0.3 x 0.1 cm. EpiFix 18 mm disc graft was applied to the left leg full-thickness ulceration with 100% use. 10th application. The graft site was free and clear of any infection. The wound/skin graft substitute was dressed with nonadherent bandage secured in place with Steri-Strips followed by dry sterile dressing and Tubigrip for compression control. Musculoskeletal: No pain on palpation of full-thickness ulceration to left tibia. No pain with calf compression. Debridement Note Debridement Note Debridement Free Text: Excisional debridement down to and including subcutaneous tissue with a number 3 mm dermal curette to the left anterior leg without incident. Predebridement measurement was 0.8 x 0.2 x 0.1 cm. Postdebridement measurement is 1.2 x 0.3 x 0.1 cm. EpiFix 18 mm disc graft was applied to the left leg full-thickness ulceration with 100% use. 10th application. The graft site was free and clear of any infection. The wound/skin graft substitute was dressed with nonadherent bandage secured in place with Steri-Strips followed by dry sterile dressing and Tubigrip for compression control. Post-Debridement Measurements and Additional Note: Post-Debridement Measurements/Treatment - Nurse 1 - General Ulcer Assessment Start: 10/13/24 09:28 Freq: Status: Active Protocol: ELENA Activity Type Activity Date Activity User E-sign Co-sign Detail Recorded Client Recorded Date Recorded By Document 10/13/24 09:29 KW [id number] 10/13/24 09:39 KW Document 10/20/24 09:29 DL [id number] 10/20/24 09:39 DL Document 10/27/24 09:39 KW [id number] 10/27/24 09:46 KW Document 11/03/24 09:32 GM [id number] 11/03/24 09:38 GM 10/13/24 10/20/24 10/27/24 09:29 09:29 09:39 - Today's Visit Information Type of service Follow-up Visit Follow-up Visit Follow-up Visit (Physician/AVIONICS INSTALLER (Physician/AVIONICS INSTALLER (Physician/AVIONICS INSTALLER ) ) ) Arrival Mode Ambulatory Ambulatory Ambulatory Transfer Assistance None Patient Identification Verified (Name & Yes Yes Yes ) Patient Requires Transmission-Based No Precautions Vital Signs Temperature (97.8 F-99.1 F) 96.7 F L 97.6 F L 96.9 F L Temperature Source Temporal Temporal Temporal Pulse Rate (60-100) 85 88 83 Pulse Location Monitor Monitor Monitor Respiratory Rate (12-18) 18 18 18 Respiratory rate source Observation Observation Observation Oxygen Delivery Method Room Air Room Air Blood Pressure (90/60-120/80) 124/67 H 127/55 H 129/62 H Blood Pressure Mean (mm Hg) 86 79 84 Source Monitor Monitor Monitor Position Semi-Fowlers Sitting Blood Pressure Location Left Arm Left Arm History Since Last Visit- (Skip if this is Patient's initial visit) Have you changed medications since your No No No last visit? Any new allergies or adverse reactions No No No Had a fall/change in ADL's that may No No No increase risk of falls Signs or symptoms of abuse and/or No No No neglect since last visit Have you been in the hospital since your No No No last visit? Has dressing in place as prescribed Yes Yes Yes Has compression in place as prescribed Yes Yes Yes Has offloadiing in place as prescribed N/A Yes N/A Experienced any changes in pain level or No No No management Left Footwear Regular Shoe Regular Shoe Right Footwear Regular Shoe Regular Shoe Pain Scale: 0-10 Numeric Is Patient Pain Free? Yes Yes Yes 11/03/24 09:32 WC - Today's Visit Information Type of service Follow-up Visit (Physician/AVIONICS INSTALLER ) Arrival Mode Ambulatory Transfer Assistance None Patient Identification Verified (Name & Yes ) Patient Requires Transmission-Based No Precautions Vital Signs Temperature (97.8 F-99.1 F) 97.8 F Temperature Source Temporal Pulse Rate (60-100) 80 Pulse Location Monitor Respiratory Rate (12-18) 18 Respiratory rate source Observation Oxygen Delivery Method Blood Pressure (90/60-120/80) 133/68 H Blood Pressure Mean (mm Hg) 89 Source Monitor Position Semi-Fowlers Blood Pressure Location Left Arm History Since Last Visit- (Skip if this is Patient's initial visit) Have you changed medications since your No last visit? Any new allergies or adverse reactions No Had a fall/change in ADL's that may No increase risk of falls Signs or symptoms of abuse and/or No neglect since last visit Have you been in the hospital since your No last visit? Has dressing in place as prescribed Yes Has compression in place as prescribed Yes Has offloadiing in place as prescribed N/A Experienced any changes in pain level or No management Left Footwear Right Footwear Pain Scale: 0-10 Numeric Is Patient Pain Free? Yes - Nurse 1 - General Ulcer Measurement Start: 10/13/24 09:28 Freq: Status: Active Protocol: Activity Type Activity Date Activity User E-sign Co-sign Detail Recorded Client Recorded Date Recorded By Document 10/13/24 09:29 KW [id number] 10/13/24 09:39 KW Document 10/20/24 09:29 DL [id number] 10/20/24 09:39 DL Document 10/27/24 09:39 KW [id number] 10/27/24 09:46 KW Document 11/03/24 09:32 GM [id number] 11/03/24 09:38 GM 10/13/24 10/20/24 10/27/24 09:29 09:29 09:39 Wound Center Nurse 1 #8 L Tenorio cluster -Combined with other wound -Current Size (cm) - Length 2 1 1.3 -Current Size (cm) - Width 3.9 1.8 0.8 -Current Size (cm) - Depth 0.3 1.2 0.3 -Total Square Cm 7.8 1.8 1.04 -Date of Last Picture (Recall this 10/27/24 field) -Photo Taken Yes -Epithelialization Large 67-100% -Tunneling -Tunneling Position (O'clock) 12 -Tunneling Distance (cm) 1.6 -Undermining/Tunneling -Circular Undermining -Exudate Amt Small Medium Small -Exudate Type Serosanguineous Serosanguineous Serosanguineous -Wound Margin Flat & Intact Thickened Thickened & Rolled Under -Granulation Amt Medium (34-66%) Small (1-33%) Large (67-100%) -Granulation Quality [place] -Slough/Fibrin Yes -Necrosis Amt Small (1-33%) Large (67-100%) -Necrotic Tissue Type Adherent Slough Adherent Slough -Structure Exposed N/A N/A -Texture (Mima-wound Skin Appearance) No Abnormality Scarring Assessed -Moisture (Mima-wound Skin Appearance) No Abnormality Dry/Scaly Assessed -Color (Mima-wound Skin Appearance) No Abnormality No Abnormality Assessed -Temperature (Mima-wound Skin No Abnormality No Abnormality No Abnormality Appearance) (Pt Warm) (Pt Warm) (Pt Warm) -Tenderness on Palpation (Mima-wound No No No Skin Appearance) -Ulcer Cleansing Soap and Water Soap and Water Soap and Water -Foul Odor after Cleansing Yes No No -Anesthetic Used 5% Lidocaine 5% Lidocaine 5% Lidocaine Gel Gel Gel 11/03/24 09:32 Wound Center Nurse 1 #8 L Ten[place] cluster -Combined with other wound No -Current Size (cm) - Length 2.3 -Current Size (cm) - Width 0.9 -Current Size (cm) - Depth 0.4 -Total Square Cm 2.07 -Date of Last Picture (Recall this field) -Photo Taken Yes -Epithelialization -Tunneling Yes -Tunneling Position (O'clock) 12 -Tunneling Distance (cm) 1.6 -Undermining/Tunneling No -Circular Undermining No -Exudate Amt Medium -Exudate Type Serosanguineous -Wound Margin Thickened & Rolled Under -Granulation Amt Medium (34-66%) -Granulation Quality [place] -Slough/Fibrin Yes -Necrosis Amt Medium (34-66%) -Necrotic Tissue Type Adherent Slough -Structure Exposed N/A -Texture (Mima-wound Skin Appearance) Assessed, Scarring -Moisture (Mima-wound Skin Appearance) Assessed -Color (Mima-wound Skin Appearance) Assessed -Temperature (Mima-wound Skin No Abnormality Appearance) (Pt Warm) -Tenderness on Palpation (Mima-wound No Skin Appearance) -Ulcer Cleansing Wound Cleanser -Foul Odor after Cleansing No -Anesthetic Used 5% Lidocaine Gel WC - Nurse 2 - General Ulcer CM Notes Start: 10/13/24 09:28 Freq: Status: Active Protocol: Activity Type Activity Date Activity User E-sign Co-sign Detail Recorded Client Recorded Date Recorded By Document 10/13/24 09:47 [id number] 10/13/24 09:55 Document 10/20/24 10:26 [facility] [id number] 10/20/24 10:38 [facility] Document 10/27/24 10:04 [id number] 10/27/24 10:10 Document 11/03/24 10:12 [id number] 11/03/24 10:20 10/13/24 10/20/24 10/27/24 09:47 10:26 10:04 Wound Center Nurse 2 #8 L Tenorio cluster -Time 09:53 10:26 10:05 -Correct Patient Yes Yes Yes -Correct Side, Site, Position Yes Yes Yes -Correct Procedure Yes Yes Yes -Procedure Performed Yes Yes Yes -Type of Procedure Debridement Debridement Debridement -Clinical Debridement Subcutaneous Subcutaneous Subcutaneous -Tissue Removed Subcutaneous Subcutaneous Subcutaneous -Post Debridement (cm) - Length 2.2 1.6 1.2 -Post Debridement (cm) - Width 2.2 1.1 0.7 -Post Debridement (cm) - Depth 0.4 0.1 0.1 -Total Square (Post) (cm) 4.84 1.76 0.84 -Area of Debridement (cm) - Length 2.2 1.6 1.2 -Area of Debridement (cm) - Width 2.2 1.1 0.7 -Total Square (Area) (cm) 4.84 1.76 0.84 -Tunneling No Yes No -Tunneling Position (O'clock) 12 -Tunneling Distance (cm) 1.5 -Undermining/Tunneling No No No -Circular Undermining No No No -Wound/Ulcer Outcome Not Healed Not Healed Not Healed -Ulcer Cleansing Rinsed/ Rinsed/ Rinsed/ Irrigated with Irrigated with Irrigated with Saline Saline Saline -Foul Odor after Cleansing No No No -Bioengineered Tissue Yes Yes Yes -Type of Bioengineered Tissue Epifix Mesh Epifix Mesh Epifix 18mm Disc -Expiration Date 04/08/29 05/09/29 05/09/29 -Product Lot Number [id number] -Percent Used 100 100 100 -Lot number of Saline Used [id number] -Bleeding Controlled with Pressure Pressure Pressure -Treatment Response Procedure Procedure Procedure Tolerated Well Tolerated Well Tolerated Well -Offloading No No -Debridement - Subq, 1st 20sq cm No No No -Apply Skin Sub - 1st 25 sq cm - Legs 1 1 1 -Epifix 18mm Disc 3 3 -Epifix Mesh (per sq cm) 11 Pain Scale: 0-10 Numeric Is Patient Pain Free? Yes Yes Yes 11/03/24 10:12 Wound Center Nurse 2 #8 L Ten[place] cluster -Time 10:12 -Correct Patient Yes -Correct Side, Site, Position Yes -Correct Procedure Yes -Procedure Performed Yes -Type of Procedure Debridement -Clinical Debridement Subcutaneous -Tissue Removed Subcutaneous -Post Debridement (cm) - Length 1.2 -Post Debridement (cm) - Width 0.3 -Post Debridement (cm) - Depth 0.1 -Total Square (Post) (cm) 0.36 -Area of Debridement (cm) - Length 1.2 -Area of Debridement (cm) - Width 0.3 -Total Square (Area) (cm) 0.36 -Tunneling No -Tunneling Position (O'clock) -Tunneling Distance (cm) -Undermining/Tunneling No -Circular Undermining No -Wound/Ulcer Outcome Not Healed -Ulcer Cleansing Rinsed/ Irrigated with Saline -Foul Odor after Cleansing No -Bioengineered Tissue Yes -Type of Bioengineered Tissue Epifix 18mm Disc -Expiration Date 06/08/29 -Product Lot Number [id number] -Percent Used 100 -Lot number of Saline Used [id number] -Bleeding Controlled with Pressure -Treatment Response Procedure Tolerated Well -Offloading No -Debridement - Subq, 1st 20sq cm No -Apply Skin Sub - 1st 25 sq cm - Legs 1 -Epifix 18mm Disc 3 -Epifix Mesh (per sq cm) Pain Scale: 0-10 Numeric Is Patient Pain Free? Yes WC - Nurse 3 - General Ulcer D/C NN Start: 10/13/24 09:28 Freq: Status: Active Protocol: Activity Type Activity Date Activity User E-sign Co-sign Detail Recorded Client Recorded Date Recorded By Document 10/13/24 10:08 CP [id number] 10/13/24 10:09 CP Document 10/20/24 10:55 DL [id number] 10/20/24 10:58 DL Document 10/27/24 10:20 KW [id number] 10/27/24 10:21 KW Document 11/03/24 10:33 RB [id number] 11/03/24 10:34 RB 10/13/24 10/20/24 10/27/24 10:08 10:55 10:20 Wound Care Center Nurse 3 #8 L Ten[place] cluster -Foul Odor after Cleansing No -Primary Dressing Applied C Hydrogel -Other Dressing Epimesh/yariel/ hydrogel -Primary Dressing Covered/Secured with Dry Gauze & Dry Gauze & Dry Gauze & Roll Gauze Roll Gauze, Roll Gauze, Secured with Secured with Tape Tape Right -Compression Wrap Ino Wrap Left -Compression Wrap Ino Wrap Ino Wrap Ino Wrap Treatment Response Procedure Tolerated Well Pain Scale: 0-10 Numeric Is Patient Pain Free? Yes Yes Yes Teaching: Wound Center Compression Wraps & Stockings -Person Taught -Teaching Method -Response to teaching WC - Visit Discharge Discharge Condition Stable Stable Stable Ambulatory Status Ambulatory Ambulatory Ambulatory Transportation Private Auto Private Auto Medication Reconcilliation completed & No provided to patient/care provider Clinical Summary of Care Provided Yes Yes Facility Type Home Health Orders Sent Yes #8 L Tenorio cluster -Ulcer Cleansing -Other Dressing -Primary Dressing Covered/Secured with Right -Other Left -Other Treatment Response 11/03/24 10:33 Wound Care Center Nurse 3 #8 L [place] cluster -Foul Odor after Cleansing -Primary Dressing Applied -Other Dressing -Primary Dressing Covered/Secured with Right -Compression Wrap Left -Compression Wrap Treatment Response Pain Scale: 0-10 Numeric Is Patient Pain Free? Yes Teaching: Wound Center Compression Wraps & Stockings -Person Taught Patient -Teaching Method Discussion, Demonstration -Response to teaching Verbalize Understanding WC - Visit Discharge Discharge Condition Stable Ambulatory Status Ambulatory Transportation Private Auto Medication Reconcilliation completed & No provided to patient/care provider Clinical Summary of Care Provided Yes Facility Type Orders Sent #8 L Ten[place] cluster -Ulcer Cleansing Rinsed/ Irrigated with Saline -Other Dressing hydrogel -Primary Dressing Covered/Secured with Dry Gauze,Dry Gauze & Roll Gauze,Secured with Tape Right -Other ino Left -Other ino Treatment Response Procedure Tolerated Well Assessment/Plan Assessment/Plan (1) Idiopathic chronic venous hypertension of left leg with ulcer: CODE(S): I87.312 - Chronic venous hypertension (idiopathic) with ulcer of left lower extremity; L97.929 - Non-pressure chronic ulcer of unspecified part of left lower leg with unspecified severity PLAN: Patient was examined and evaluated. All findings were discussed with the patient. All questions were answered to the patient's satisfaction. Excisional debridement down to and including subcutaneous tissue with a number 3 mm dermal curette to the left anterior leg without incident. Predebridement measurement was 0.8 x 0.2 x 0.1 cm. Postdebridement measurement is 1.2 x 0.3 x 0.1 cm. EpiFix 18 mm disc graft was applied to the left leg full-thickness ulceration with 100% use. 10th application. The graft site was free and clear of any infection. The wound/skin graft substitute was dressed with nonadherent bandage secured in place with Steri-Strips followed by dry sterile dressing and Tubigrip for compression control. Continue to encourage the patient on smoking cessation. Follow-up at the wound care center with Dr. Estevez in 1 week. 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
== END 2024-11-05 23:59 | disposition home or self-care (01) ==
LOC: WC 09:45
PROVIDERS: Referring Provider Nurse Practitioner Family; Visit Provider Podiatrist Foot & Ankle Surgery
DX: I87.312 Chronic venous hypertension (idiopathic) with ulcer of left lower extremity (principal); L97.823 Non-pressure chronic ulcer of other part of left lower leg with necrosis of muscle; F17.200 Nicotine dependence, unspecified, uncomplicated; I87.2 Venous insufficiency (chronic) (peripheral)
CPT/HCPCS: 15271; Q4186

== ENCOUNTER 2024-11-17 10:28 | Outpatient (RCR) | payer MEDICAID, SELFPAY | END 2024-12-06 23:59 | LOC: NS 10:28 | PROVIDERS: Referring Provider Nurse Practitioner Family; Visit Provider Nurse Practitioner Family | DX: Z71.3 Dietary counseling and surveillance (principal); J44.9 Chronic obstructive pulmonary disease, unspecified; E78.5 Hyperlipidemia, unspecified; E11.9 Type 2 diabetes mellitus without complications; E46 Unspecified protein-calorie malnutrition | CPT/HCPCS: 97803 ==

== ENCOUNTER 2024-11-24 09:15 | Outpatient (RCR) | payer MEDICAID, SELFPAY ==
[2024-11-06 00:47] VITALS: BP 133/68; PULSE 80; RESP 18; TEMP 36.6
[2024-11-10 09:13] VITALS: BP 131/70; PULSE 91; RESP 16; TEMP 35.6
--- NOTE | 2024-11-10 11:16 | PN.PCM_ITS ---
History of Present Illness Date of Service: 11/10/24 Chief Complaint: nonhealing ulcer left anterior leg. 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 Currently on amniotic skin graft substitutes and is doing well. Progress of Wound: Stable full-thickness wound left leg. Bone is covered. Subjective Subjective Ms. Calvert is a 64-year-old diabetic female presenting with concern today follow-up evaluation of full-thickness wound to left leg. She has left her skin graft clean dry and intact. She has been ambulating as tolerated and regular shoes. She denies any pain to the left leg. She states that she has cut back on her smoking. She denies trauma. Denies constitutional symptoms. The pain complaints at this time. Objective Data Objective Data Vital Signs: Vital Signs Temp Pulse Resp BP 96.0 F L 91 16 131/70 H 11/10/24 09:13 11/10/24 09:13 11/10/24 09:13 11/10/24 09:13 Physical Exam Narrative Vascular: DP and PT pulses are palpable. CFT is brisk. Skin temperature great is warm to warm from proximal ankle to the distal digits to left lower extremity. Nonpitting edema appreciated to left lower extremity. No erythema. Neurological: Light touch intact. Patient does respond to painful stimuli. Dermatological: Full-thickness wound to left anterior leg, wound measures 1.2 x 0.3 x 0.1 cm. Wound base is granular nature. No probe to bone. No drainage or malodor. Evidence of a 12:00 tunneling measuring 1.7 cm Excisional debridement down to and including subcutaneous tissue with a number 3 mm dermal curette to the left anterior leg without incident. Predebridement measurement was 0.9 x 0.1 x 0.1 cm. Postdebridement measurement is 1.2 x 0.3 x 0.1 cm. Musculoskeletal: No pain on palpation of full-thickness ulceration to left tibia. No pain with calf compression. Debridement Note Debridement Note Debridement Free Text: Excisional debridement down to and including subcutaneous tissue with a number 3 mm dermal curette to the left anterior leg without incident. Predebridement measurement was 0.9 x 0.1 x 0.1 cm. Postdebridement measurement is 1.2 x 0.3 x 0.1 cm. Post-Debridement Measurements and Additional Note: Post-Debridement Measurements/Treatment - Nurse 1 - General Ulcer Assessment Start: 11/10/24 09:13 Freq: Status: Active Protocol: ELENA Activity Type Activity Date Activity User E-sign Co-sign Detail Recorded Client Recorded Date Recorded By Document 11/10/24 09:13 ML [id number] 11/10/24 09:15 ML 11/10/24 09:13 WC - Today's Visit Information Type of service Follow-up Visit (Physician/SILICA FILTER OPERATOR ) Arrival Mode Ambulatory Transfer Assistance None Patient Identification Verified (Name & Yes ) Patient Requires Transmission-Based No Precautions Vital Signs Temperature (97.8 F-99.1 F) 96.0 F L Temperature Source Temporal Pulse Rate (60-100) 91 Pulse Location Monitor Respiratory Rate (12-18) 16 Respiratory rate source Observation Blood Pressure (90/60-120/80) 131/70 H Blood Pressure Mean (mm Hg) 90 Source Monitor Position Sitting Blood Pressure Location Right Arm History Since Last Visit- (Skip if this is Patient's initial visit) Have you changed medications since your No last visit? Any new allergies or adverse reactions No Had a fall/change in ADL's that may No increase risk of falls Signs or symptoms of abuse and/or No neglect since last visit Have you been in the hospital since your No last visit? Has dressing in place as prescribed Yes Has compression in place as prescribed Yes Has offloadiing in place as prescribed N/A Experienced any changes in pain level or No management Pain Scale: 0-10 Numeric Is Patient Pain Free? Yes - Nurse 1 - General Ulcer Measurement Start: 11/10/24 09:13 Freq: Status: Active Protocol: Activity Type Activity Date Activity User E-sign Co-sign Detail Recorded Client Recorded Date Recorded By Document 11/10/24 09:13 ML [id number] 11/10/24 09:15 ML 11/10/24 09:13 Wound Center Nurse 1 #8 L Tenorio cluster -Current Size (cm) - Length 0.1 -Current Size (cm) - Width 0.1 -Current Size (cm) - Depth 0.1 -Total Square Cm 0.01 -Exudate Amt Medium -Exudate Type Serosanguineous -Wound Margin Distinct, Outline Attached -Slough/Fibrin Yes -Necrosis Amt Medium (34-66%) -Necrotic Tissue Type Adherent Slough -Texture (Mima-wound Skin Appearance) Assessed -Moisture (Mima-wound Skin Appearance) Assessed -Color (Mima-wound Skin Appearance) Assessed -Temperature (Mima-wound Skin No Abnormality Appearance) (Pt Warm) -Tenderness on Palpation (Mima-wound No Skin Appearance) WC - Nurse 2 - General Ulcer CM Notes Start: 11/10/24 09:13 Freq: Status: Active Protocol: Activity Type Activity Date Activity User E-sign Co-sign Detail Recorded Client Recorded Date Recorded By Document 11/10/24 09:42 [id number] 11/10/24 09:49 11/10/24 09:42 Wound Center Nurse 2 -Time 09:48 -Correct Patient Yes -Correct Side, Site, Position Yes -Correct Procedure Yes -Procedure Performed Yes -Type of Procedure Debridement -Clinical Debridement Subcutaneous -Tissue Removed Subcutaneous -Post Debridement (cm) - Length 1.2 -Post Debridement (cm) - Width 0.3 -Post Debridement (cm) - Depth 0.1 -Total Square (Post) (cm) 0.36 -Area of Debridement (cm) - Length 1.2 -Area of Debridement (cm) - Width 0.3 -Total Square (Area) (cm) 0.36 -Tunneling Yes -Tunneling Position (O'clock) 12 -Tunneling Distance (cm) 1.7 -Undermining/Tunneling No -Circular Undermining No -Wound/Ulcer Outcome Not Healed -Ulcer Cleansing Rinsed/ Irrigated with Saline -Foul Odor after Cleansing No -Bioengineered Tissue No -Bleeding Controlled with Pressure -Treatment Response Procedure Tolerated Well -Offloading No -Debridement - Subq, 1st 20sq cm Yes -Wound Comment(s) Axiofill used today from a sample provided . Exp:05/09/2029 [id number] Pain Scale: 0-10 Numeric Is Patient Pain Free? Yes WC - Nurse 3 - General Ulcer D/C NN Start: 11/10/24 09:13 Freq: Status: Active Protocol: Activity Type Activity Date Activity User E-sign Co-sign Detail Recorded Client Recorded Date Recorded By Document 11/10/24 09:59 MT [id number] 11/10/24 10:00 MT 11/10/24 09:59 Wound Care Center Nurse 3 #8 L Ten[place] cluster -Primary Dressing Covered/Secured with Dry Gauze, Secured with Tape LLE -Compression Wrap Ino Wrap Pain Scale: 0-10 Numeric Is Patient Pain Free? 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 All findings were discussed with the patient. All questions were answered to the patient's satisfaction. Excisional debridement down to and including subcutaneous tissue with a number 3 mm dermal curette to the left anterior leg without incident. Predebridement measurement was 0.9 x 0.1 x 0.1 cm. Postdebridement measurement is 1.2 x 0.3 x 0.1 cm. The left lower extremities were cleaned patted dry. Axio-fill was applied at a courtesy to the full-thickness wound and covered with mesh, Steri- Strips and bolster dressing with compression wrap to left lower extremity. Patient will leave the mesh clean dry and intact. She will continue strict blood sugar control. The patient will continue smoking cessation. Follow-up at the wound care center with Dr. Estevez in 1 week.
[2024-11-17 09:29] VITALS: BP 118/76; PULSE 82; RESP 18; TEMP 36.1
--- NOTE | 2024-11-17 12:32 | PN.PCM_ITS ---
History of Present Illness Date of Service: 11/10/24 Chief Complaint: nonhealing ulcer left anterior leg. 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 Currently on amniotic skin graft substitutes and is doing well. Progress of Wound: Stable full-thickness wound left leg. Bone is covered. Subjective Subjective Ms. Calvert is a 64-year-old diabetic female presenting with concern today follow-up evaluation of full-thickness wound to left leg. She has left her skin graft clean dry and intact. She has been ambulating as tolerated and regular shoes. She denies any pain to the left leg. She states that she has cut back on her smoking. She denies trauma. Denies constitutional symptoms. The pain complaints at this time. Objective Data Objective Data Vital Signs: Vital Signs Temp Pulse Resp BP O2 Del Method 97 F L 82 18 118/76 Room Air 11/17/24 09:29 11/17/24 09:29 11/17/24 09:29 11/17/24 09:29 11/17/24 09:29 Oxygen Delivery Method Room Air Physical Exam Narrative Vascular: DP and PT pulses are palpable. CFT is brisk. Skin temperature great is warm to warm from proximal ankle to the distal digits to left lower extremity. Nonpitting edema appreciated to left lower extremity. No erythema. Neurological: Light touch intact. Patient does respond to painful stimuli. Dermatological: Full-thickness wound to left anterior leg, wound measures 1.0 x 0.3 x 0.1 cm. Wound base is granular nature. No probe to bone. No drainage or malodor. Evidence of a 12:00 tunneling measuring 1.7 cm Excisional debridement down to and including subcutaneous tissue with a number 3 mm dermal curette to the left anterior leg without incident. Predebridement measurement was 0.9 x 0.1 x 0.1 cm. Postdebridement measurement is 1.0 x 0.3 x 0.1 cm. Musculoskeletal: No pain on palpation of full-thickness ulceration to left tibia. No pain with calf compression. Debridement Note Debridement Note Debridement Free Text: Excisional debridement down to and including subcutaneous tissue with a number 3 mm dermal curette to the left anterior leg without incident. Predebridement measurement was 0.9 x 0.1 x 0.1 cm. Postdebridement measurement is 1.2 x 0.3 x 0.1 cm. Post-Debridement Measurements and Additional Note: Post-Debridement Measurements/Treatment WC - Nurse 1 - General Ulcer Assessment Start: 11/10/24 09:13 Freq: Status: Active Protocol: ELENA Activity Type Activity Date Activity User E-sign Co-sign Detail Recorded Client Recorded Date Recorded By Document 11/10/24 09:13 ML [id number] 11/10/24 09:15 ML Document 11/17/24 09:29 MT [id number] 11/17/24 09:36 MT 11/10/24 11/17/24 09:13 09:29 WC - Today's Visit Information Type of service Follow-up Visit Follow-up Visit (Physician/WIRELESS CONSTRUCTION MANAGER (Physician/WIRELESS CONSTRUCTION MANAGER ) ) Arrival Mode Ambulatory Ambulatory Transfer Assistance None Accompanied by self Patient Identification Verified (Name & Yes Yes ) Patient Requires Transmission-Based No Precautions Vital Signs Temperature (97.8 F-99.1 F) 96.0 F L 97 F L Temperature Source Temporal Temporal Pulse Rate (60-100) 91 82 Pulse Location Monitor Monitor Respiratory Rate (12-18) 16 18 Respiratory rate source Observation Observation Oxygen Delivery Method Room Air Blood Pressure (90/60-120/80) 131/70 H 118/76 Blood Pressure Mean (mm Hg) 90 90 Source Monitor Monitor Position Sitting Sitting Blood Pressure Location Right Arm Right Arm History Since Last Visit- (Skip if this is Patient's initial visit) Have you changed medications since your No last visit? Any new allergies or adverse reactions No Had a fall/change in ADL's that may No increase risk of falls Signs or symptoms of abuse and/or No neglect since last visit Have you been in the hospital since your No last visit? Has dressing in place as prescribed Yes Yes Has compression in place as prescribed Yes Yes Has offloadiing in place as prescribed N/A Yes Experienced any changes in pain level or No Yes management Left Footwear Regular Shoe Right Footwear Regular Shoe Pain Scale: 0-10 Numeric Is Patient Pain Free? Yes Yes - Nurse 1 - General Ulcer Measurement Start: 11/10/24 09:13 Freq: Status: Active Protocol: Activity Type Activity Date Activity User E-sign Co-sign Detail Recorded Client Recorded Date Recorded By Document 11/10/24 09:13 ML [id number] 11/10/24 09:15 ML Document 11/17/24 09:29 OR [id number] 11/17/24 09:36 MT 11/10/24 11/17/24 09:13 09:29 Wound Center Nurse 1 #8 L Tenorio cluster -Current Size (cm) - Length 0.1 0.1 -Current Size (cm) - Width 0.1 0.1 -Current Size (cm) - Depth 0.1 0.1 -Total Square Cm 0.01 0.01 -Photo Taken No -Epithelialization Large 67-100% -Tunneling No -Undermining/Tunneling No -Circular Undermining No -Exudate Amt Medium -Exudate Type Serosanguineous -Wound Margin Distinct, Thickened Outline Attached -Granulation Amt Large (67-100%) -Granulation Quality Pale,[place] -Slough/Fibrin Yes No -Necrosis Amt Medium (34-66%) -Necrotic Tissue Type Adherent Slough -Texture (Mima-wound Skin Appearance) Assessed Assessed -Moisture (Mima-wound Skin Appearance) Assessed Assessed -Color (Mima-wound Skin Appearance) Assessed Assessed, Erythema, Hemosiderin Staining -Temperature (Mima-wound Skin No Abnormality No Abnormality Appearance) (Pt Warm) (Pt Warm) -Tenderness on Palpation (Mima-wound No No Skin Appearance) -Ulcer Cleansing Soap and Water -Foul Odor after Cleansing No -Anesthetic Used 5% Lidocaine Gel Lower Limb Edema Present NA WC - Nurse 2 - General Ulcer CM Notes Start: 11/10/24 09:13 Freq: Status: Active Protocol: Activity Type Activity Date Activity User E-sign Co-sign Detail Recorded Client Recorded Date Recorded By Document 11/10/24 09:42 [id number] 11/10/24 09:49 Document 11/17/24 10:00 [id number] 11/17/24 10:05 JF 11/10/24 11/17/24 09:42 10:00 Wound Center Nurse 2 #8 L Tenorio cluster -Time 09:48 10:00 -Correct Patient Yes Yes -Correct Side, Site, Position Yes Yes -Correct Procedure Yes Yes -Procedure Performed Yes Yes -Type of Procedure Debridement Debridement -Clinical Debridement Subcutaneous Subcutaneous -Tissue Removed Subcutaneous Subcutaneous -Post Debridement (cm) - Length 1.2 1.0 -Post Debridement (cm) - Width 0.3 0.3 -Post Debridement (cm) - Depth 0.1 0.1 -Total Square (Post) (cm) 0.36 0.30 -Area of Debridement (cm) - Length 1.2 1.0 -Area of Debridement (cm) - Width 0.3 0.3 -Total Square (Area) (cm) 0.36 0.30 -Tunneling Yes Yes -Tunneling Position (O'clock) 12 12 -Tunneling Distance (cm) 1.7 1.7 -Undermining/Tunneling No No -Circular Undermining No No -Wound/Ulcer Outcome Not Healed Not Healed -Ulcer Cleansing Rinsed/ Rinsed/ Irrigated with Irrigated with Saline Saline -Foul Odor after Cleansing No No -Bioengineered Tissue No No -Bleeding Controlled with Pressure Pressure -Treatment Response Procedure Procedure Tolerated Well Tolerated Well -Offloading No No -Debridement - Subq, 1st 20sq cm Yes Yes -Wound Comment(s) Axiofill used Axiofill sample today from a used sample provided Product: PM101- . [id number] Exp:05/09/2029 05/09/2029 PM:[id number] Pain Scale: 0-10 Numeric Is Patient Pain Free? Yes Yes - Nurse 3 - General Ulcer D/C NN Start: 11/10/24 09:13 Freq: Status: Active Protocol: Activity Type Activity Date Activity User E-sign Co-sign Detail Recorded Client Recorded Date Recorded By Document 11/10/24 09:59 OR [id number] 11/10/24 10:00 OR Document 11/17/24 10:13 [id number] 11/17/24 10:13 11/10/24 11/17/24 09:59 10:13 Wound Care Center Nurse 3 #8 L Tenorio cluster -Ulcer Cleansing Not Cleansed -Foul Odor after Cleansing No -Primary Dressing Covered/Secured with Dry Gauze, Dry Gauze & Secured with Roll Gauze, Tape Secured with Tape LLE -Lotion applied to leg before No compression wrap -Compression Wrap Ino Wrap Ino Wrap Pain Scale: 0-10 Numeric Is Patient Pain Free? Yes Yes - Visit Discharge Discharge Condition Stable Ambulatory Status Ambulatory Transportation Private Auto Assessment/Plan Assessment/Plan (1) Non-pressure chronic ulcer of other part of left lower leg with fat layer exposed: CODE(S): L97.822 - Non-pressure chronic ulcer of other part of left lower leg with fat layer exposed PLAN: Patient was examined and evaluated. All findings were discussed with the patient. All questions were answered to the patient's satisfaction. Excisional debridement down to and including subcutaneous tissue with a number 3 mm dermal curette to the left anterior leg without incident. Predebridement measurement was 0.9 x 0.1 x 0.1 cm. Postdebridement measurement is 1.0 x 0.3 x 0.1 cm.. The left lower extremities were cleaned patted dry. Axio-fill was applied at a courtesy to the full-thickness wound and covered with mesh, Steri- Strips and bolster dressing with compression wrap to left lower extremity. Patient will leave the mesh clean dry and intact. She will continue strict blood sugar control. The patient will continue smoking cessation. Follow-up at the wound care center with Dr. Estevez in 1 week.
[2024-11-24 09:28] VITALS: BP 147/72; PULSE 87; RESP 18; TEMP 36.6
--- NOTE | 2024-11-24 12:35 | PN.PCM_ITS ---
History of Present Illness Date of Service: 11/24/24 Chief Complaint: nonhealing ulcer left anterior leg. 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 Currently on amniotic skin graft substitutes and is doing well. Progress of Wound: Stable full-thickness wound left leg. Bone is covered. Subjective Subjective Ms. Calvert is a 64-year-old female presenting to wound care center today for follow-up evaluation of full-thickness wound to anterior left leg. Patient states that her wound is healed and still has evidence of a tunneling wound that has been improving. She has done dressing changes per home health care. She is been discharged from physical therapy as she has met all her physical therapy goals. She has no pain to the left lower extremity. She still continues to smoke but improved. She denies trauma. Denies constitutional symptoms. No other pedal complaints at this time. Objective Data Objective Data Vital Signs: Vital Signs Temp Pulse Resp BP O2 Del Method 97.8 F 87 18 147/72 H Room Air 11/24/24 09:28 11/24/24 09:28 11/24/24 09:28 11/24/24 09:28 11/24/24 09:28 Oxygen Delivery Method Room Air Physical Exam Narrative Vascular: DP and PT pulses are palpable. CFT is brisk. Skin temperature great is warm to warm from proximal ankle to the distal digits to left lower extremity. Nonpitting edema appreciated to left lower extremity. No erythema. Neurological: Light touch intact. Patient does respond to painful stimuli. Dermatological: Full-thickness wound to left anterior leg down to bone is now healed. There is evidence of a tunneling wound to the left leg measuring 0.8 x 0.6 x 1.6 cm. Wound base is granular with sanguinous drainage. No sign of infection. Evidence of a 12:00 tunneling measuring 1.6 cm Excisional debridement down to and including subcutaneous tissue with a number 3 mm dermal curette to the left anterior leg without incident. Predebridement measurement was 0.7 x 0.5 x 1.4 cm. Postdebridement measurement is 0.8 x 0.6 x 1.6 cm. Musculoskeletal: No pain on palpation of full-thickness ulceration to left tibia. No pain with calf compression. Debridement Note Debridement Note Debridement Free Text: Excisional debridement down to and including subcutaneous tissue with a number 3 mm dermal curette to the left anterior leg without incident. Predebridement measurement was 0.7 x 0.5 x 1.4 cm. Postdebridement measurement is 0.8 x 0.6 x 1.6 cm. Post-Debridement Measurements and Additional Note: Post-Debridement Measurements/Treatment [id number] - Nurse 1 - General Ulcer Assessment Start: 11/10/24 09:13 Freq: Status: Active Protocol: ELENA Activity Type Activity Date Activity User E-sign Co-sign Detail Recorded Client Recorded Date Recorded By Document 11/10/24 09:13 ML [id number] 11/10/24 09:15 ML Document 11/17/24 09:29 MT [id number] 11/17/24 09:36 MT Document 11/24/24 09:28 GM [id number] 11/24/24 09:49 GM 11/10/24 11/17/24 11/24/24 09:13 09:29 09:28 - Today's Visit Information Type of service Follow-up Visit Follow-up Visit Follow-up Visit (Physician/SAS ARCHITECT (Physician/SAS ARCHITECT (Physician/SAS ARCHITECT ) ) ) Arrival Mode Ambulatory Ambulatory Ambulatory Transfer Assistance None None Accompanied by self Patient Identification Verified (Name & Yes Yes Yes ) Patient Requires Transmission-Based No No Precautions Vital Signs Temperature (97.8 F-99.1 F) 96.0 F L 97 F L 97.8 F Temperature Source Temporal Temporal Temporal Pulse Rate (60-100) 91 82 87 Pulse Location Monitor Monitor Monitor Respiratory Rate (12-18) 16 18 18 Respiratory rate source Observation Observation Observation Oxygen Delivery Method Room Air Room Air Blood Pressure (90/60-120/80) 131/70 H 118/76 147/72 H Blood Pressure Mean (mm Hg) 90 90 97 Source Monitor Monitor Monitor Position Sitting Sitting Sitting Blood Pressure Location Right Arm Right Arm Left Arm History Since Last Visit- (Skip if this is Patient's initial visit) Have you changed medications since your No No last visit? Any new allergies or adverse reactions No No Had a fall/change in ADL's that may No No increase risk of falls Signs or symptoms of abuse and/or No No neglect since last visit Have you been in the hospital since your No No last visit? Has dressing in place as prescribed Yes Yes Yes Has compression in place as prescribed Yes Yes Yes Has offloadiing in place as prescribed N/A Yes Yes Experienced any changes in pain level or No Yes No management Left Footwear Regular Shoe Regular Shoe Right Footwear Regular Shoe Regular Shoe Pain Scale: 0-10 Numeric Is Patient Pain Free? Yes Yes Yes WC - Nurse 1 - General Ulcer Measurement Start: 11/10/24 09:13 Freq: Status: Active Protocol: Activity Type Activity Date Activity User E-sign Co-sign Detail Recorded Client Recorded Date Recorded By Document 11/10/24 09:13 ML [id number] 11/10/24 09:15 ML Document 11/17/24 09:29 MT [id number] 11/17/24 09:36 MT Document 11/24/24 09:28 GM [id number] 11/24/24 09:49 GM 11/10/24 11/17/24 11/24/24 09:13 09:29 09:28 Wound Center Nurse 1 #8 L Tenorio ulcer -Current Size (cm) - Length 0.1 0.1 0.5 -Current Size (cm) - Width 0.1 0.1 0.3 -Current Size (cm) - Depth 0.1 0.1 1.0 -Total Square Cm 0.01 0.01 0.15 -Date of Last Picture (Recall this 11/24/24 field) -Photo Taken No Yes -Epithelialization Large 67-100% Large 67-100% -Tunneling No No -Undermining/Tunneling No No -Circular Undermining No No -Change in Wound Grade/Stage No -Exudate Amt Medium Medium -Exudate Type Serosanguineous Yellow/Green -Wound Margin Distinct, Thickened Distinct, Outline Outline Attached Attached -Granulation Amt Large (67-100%) Small (1-33%) -Granulation Quality Pale,[place] -Slough/Fibrin Yes No No -Necrosis Amt Medium (34-66%) -Necrotic Tissue Type Adherent Slough -Texture (Mima-wound Skin Appearance) Assessed Assessed Assessed -Moisture (Mima-wound Skin Appearance) Assessed Assessed Assessed -Color (Mima-wound Skin Appearance) Assessed Assessed, Assessed Erythema, Hemosiderin Staining -Temperature (Mima-wound Skin No Abnormality No Abnormality No Abnormality Appearance) (Pt Warm) (Pt Warm) (Pt Warm) -Tenderness on Palpation (Mima-wound No No No Skin Appearance) -Ulcer Cleansing Soap and Water Soap and Water -Foul Odor after Cleansing No No -Anesthetic Used 5% Lidocaine 5% Lidocaine Gel Gel Lower Limb Edema Present NA WC - Nurse 2 - General Ulcer CM Notes Start: 11/10/24 09:13 Freq: Status: Active Protocol: Activity Type Activity Date Activity User E-sign Co-sign Detail Recorded Client Recorded Date Recorded By Document 11/10/24 09:42 [id number] 11/10/24 09:49 JF Document 11/17/24 10:00 JF [id number] 11/17/24 10:05 Document 11/24/24 09:40 JF [id number] 11/24/24 09:47 JF Edit Result 11/24/24 09:40 JF (1) [id number] 11/24/24 09:49 JF (1) #8 L Tenorio ulcer - Clinical Debridement Subcutaneous => Muscle / Fascia - Tissue Removed Subcutaneous => Muscle - Debridement - Subq, 1st 20sq cm Yes => - Debridement - Muscle / Fascia, 1st => Yes 20sq cm 11/10/24 11/17/24 11/24/24 09:42 10:00 09:40 Wound Center Nurse 2 #8 L Tenorio ulcer -Time 09:48 10:00 09:41 -Correct Patient Yes Yes Yes -Correct Side, Site, Position Yes Yes Yes -Correct Procedure Yes Yes Yes -Procedure Performed Yes Yes Yes -Type of Procedure Debridement Debridement Debridement -Clinical Debridement Subcutaneous Subcutaneous Muscle / Fascia -Tissue Removed Subcutaneous Subcutaneous Muscle -Post Debridement (cm) - Length 1.2 1.0 0.8 -Post Debridement (cm) - Width 0.3 0.3 0.6 -Post Debridement (cm) - Depth 0.1 0.1 1.6 -Total Square (Post) (cm) 0.36 0.30 0.48 -Area of Debridement (cm) - Length 1.2 1.0 0.8 -Area of Debridement (cm) - Width 0.3 0.3 0.6 -Total Square (Area) (cm) 0.36 0.30 0.48 -Tunneling Yes Yes No -Tunneling Position (O'clock) 12 12 -Tunneling Distance (cm) 1.7 1.7 -Undermining/Tunneling No No No -Circular Undermining No No No -Wound/Ulcer Outcome Not Healed Not Healed Not Healed -Ulcer Cleansing Rinsed/ Rinsed/ Rinsed/ Irrigated with Irrigated with Irrigated with Saline Saline Saline -Foul Odor after Cleansing No No No -Bioengineered Tissue No No No -Bleeding Controlled with Pressure Pressure Pressure -Treatment Response Procedure Procedure Procedure Tolerated Well Tolerated Well Tolerated Well -Offloading No No No -Debridement - Subq, 1st 20sq cm Yes Yes -Debridement - Muscle / Fascia, 1st Yes 20sq cm -Wound Comment(s) Axiofill used Axiofill sample Axiofill Tissue today from a used ID: [id number] sample provided Product: PM101- [id number] . [id number] exp date Exp:05/09/2029 05/09/20292028 PM:101-[id number] hydrogel [id number] exp date:2025 Pain Scale: 0-10 Numeric Is Patient Pain Free? Yes Yes Yes - Nurse 3 - General Ulcer D/C NN Start: 11/10/24 09:13 Freq: Status: Active Protocol: Activity Type Activity Date Activity User E-sign Co-sign Detail Recorded Client Recorded Date Recorded By Document 11/10/24 09:59 IL [id number] 11/10/24 10:00 IL Document 11/17/24 10:13 [id number] 11/17/24 10:13 Document 11/24/24 09:59 IL [id number] 11/24/24 10:00 IL 11/10/24 11/17/24 11/24/24 09:59 10:13 09:59 Wound Care Center Nurse 3 #8 L Tenorio ulcer -Ulcer Cleansing Not Cleansed -Foul Odor after Cleansing No -Other Dressing abd -Primary Dressing Covered/Secured with Dry Gauze, Dry Gauze & Dry Gauze & Secured with Roll Gauze, Roll Gauze, Tape Secured with Secured with Tape Tape LLE -Lotion applied to leg before No compression wrap -Compression Wrap Ino Wrap Ino Wrap Ino Wrap Pain Scale: 0-10 Numeric Is Patient Pain Free? Yes Yes Yes - Visit Discharge Discharge Condition Stable Ambulatory Status Ambulatory Transportation Private Auto Assessment/Plan Assessment/Plan (1) Non-pressure chronic ulcer of other part of left lower leg with fat layer exposed: CODE(S): L97.822 - Non-pressure chronic ulcer of other part of left lower leg with fat layer exposed PLAN: Patient was examined and evaluated. All findings were discussed with the patient. All questions were answered to the patient's satisfaction. Excisional debridement down to and including subcutaneous tissue with a number 3 mm dermal curette to the left anterior leg without incident. Predebridement measurement was 0.7 x 0.5 x 1.4 cm. Postdebridement measurement is 0.8 x 0.6 x 1.6 cm. The left lower extremities were cleaned patted dry. Axio-fill was applied at a courtesy to the full-thickness wound and covered with mesh, Steri- Strips and bolster dressing with compression wrap to left lower extremity. Patient will leave the mesh clean dry and intact. She will continue strict blood sugar control. The patient will continue smoking cessation. Follow-up at the wound care center with Dr. Estevez in 1-2 week.
--- NOTE | 2024-11-25 08:24 | WC ---
PHOTO 11/14/24 LEFT RODNEY
== END 2024-12-06 23:59 | disposition home or self-care (01) ==
LOC: WC 09:15
PROVIDERS: Referring Provider Nurse Practitioner Family; Visit Provider Podiatrist Foot & Ankle Surgery
DX: E11.622 Type 2 diabetes mellitus with other skin ulcer (principal); L97.822 Non-pressure chronic ulcer of other part of left lower leg with fat layer exposed; F17.200 Nicotine dependence, unspecified, uncomplicated
CPT/HCPCS: 11042; 11043

== ENCOUNTER 2024-12-29 09:30 | Outpatient (RCR) | payer MEDICAID, SELFPAY ==
[2024-12-07 00:15] VITALS: BP 147/72; PULSE 87; RESP 18; TEMP 36.6
[2024-12-15 09:36] VITALS: BP 124/67; PULSE 82; RESP 18; TEMP 36.7
--- NOTE | 2024-12-15 12:19 | PN.PCM_ITS ---
History of Present Illness Date of Service: 12/15/24 Chief Complaint: nonhealing ulcer left anterior leg. 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 Currently on amniotic skin graft substitutes and is doing well. Progress of Wound: Healing full-thickness wound anterior left leg. Subjective Subjective Ms. Calvert is a 64-year-old female presented wound care center for follow-up evaluation of full-thickness wound and skin graft application. Patient has missed a few of her appointments due to insurance issues that have now been resolved. She mitts that there is no drainage to the full-thickness wound to the anterior left leg. Everything is stable. She has no pain. She does smoke but has decreased her smoking. She is grateful for care. Denies trauma. Denies constitutional symptoms. No other pedal complaints at this time. Objective Data Objective Data Vital Signs: Vital Signs Temp Pulse Resp BP O2 Del Method 98.1 F 82 18 124/67 H Room Air 12/15/24 09:36 12/15/24 09:36 12/15/24 09:36 12/15/24 09:36 12/15/24 09:36 Oxygen Delivery Method Room Air Physical Exam Narrative Vascular: DP and PT pulses are palpable. CFT is brisk. Skin temperature great is warm to warm from proximal ankle to the distal digits to left lower extremity. Nonpitting edema appreciated to left lower extremity. No erythema. Neurological: Light touch intact. Patient does respond to painful stimuli. Dermatological: There is evidence of a tunneling wound to the left leg measuring 0.6 x 0.4 x 1.3 cm. Wound base is granular with sanguinous drainage. No sign of infection. Excisional debridement down to and including subcutaneous tissue with a number 3 mm dermal curette to the left anterior leg without incident. Predebridement measurement was sanguinous crust. postdebridement measurement is 0.6 x 0.4 x 1.3 cm. Musculoskeletal: No pain on palpation of full-thickness ulceration to left tibia. No pain with calf compression. Debridement Note Debridement Note Debridement Free Text: Excisional debridement down to and including subcutaneous tissue with a number 3 mm dermal curette to the left anterior leg without incident. Predebridement measurement was sanguinous crust. postdebridement measurement is 0.6 x 0.4 x 1.3 cm. Post-Debridement Measurements and Additional Note: Post-Debridement Measurements/Treatment WC - Nurse 1 - General Ulcer Assessment Start: 12/15/24 09:25 Freq: Status: Active Protocol: ELENA Activity Type Activity Date Activity User E-sign Co-sign Detail Recorded Client Recorded Date Recorded By Document 12/15/24 09:36 GM [id number] 12/15/24 09:38 GM 12/15/24 09:36 WC - Today's Visit Information Type of service Follow-up Visit (Physician/IMMIGRATION ATTORNEY ) Arrival Mode Ambulatory Patient Identification Verified (Name & Yes ) Vital Signs Temperature (97.8 F-99.1 F) 98.1 F Temperature Source Temporal Pulse Rate (60-100) 82 Pulse Location Monitor Respiratory Rate (12-18) 18 Respiratory rate source Observation Oxygen Delivery Method Room Air Blood Pressure (90/60-120/80) 124/67 H Blood Pressure Mean (mm Hg) 86 Source Monitor Position Sitting Blood Pressure Location Left Arm History Since Last Visit- (Skip if this is Patient's initial visit) Have you changed medications since your No last visit? Any new allergies or adverse reactions No Had a fall/change in ADL's that may No increase risk of falls Signs or symptoms of abuse and/or No neglect since last visit Have you been in the hospital since your No last visit? Has dressing in place as prescribed Yes Has compression in place as prescribed Yes Has offloadiing in place as prescribed N/A Experienced any changes in pain level or No management Pain Scale: 0-10 Numeric Is Patient Pain Free? Yes YVETTE - Nurse 1 - General Ulcer Measurement Start: 12/15/24 09:25 Freq: Status: Active Protocol: Activity Type Activity Date Activity User E-sign Co-sign Detail Recorded Client Recorded Date Recorded By Document 12/15/24 09:36 GM [id number] 12/15/24 09:38 GM Edit Result 12/15/24 09:36 GM (1) [id number] 12/15/24 09:40 GM (1) #8 L Tenorio ulcer - Current Size (cm) - Length 98.1 => 1.0 - Current Size (cm) - Width => 1.2 - Current Size (cm) - Depth => 0.2 - Total Square Cm => 1.20 - Date of Last Picture (Recall this => 12/15/24 field) - Photo Taken => Yes - Epithelialization => Small 1-33% - Tunneling => No - Undermining/Tunneling => No - Circular Undermining => No - Exudate Type => Yellow/Green - Wound Margin => Distinct, Outline => Attached - Granulation Amt => Small (1-33%) - Granulation Quality => [place] - Slough/Fibrin => Yes - Necrosis Amt => Small (1-33%) - Necrotic Tissue Type => Adherent Slough - Texture (Mima-wound Skin Appearance) => Assessed - Color (Mima-wound Skin Appearance) => Assessed - Tenderness on Palpation (Mima-wound => No Skin Appearance) - Ulcer Cleansing => Wound Cleanser - Foul Odor after Cleansing => No - Anesthetic Used => 5% Lidocaine Gel 12/15/24 09:36 Wound Center Nurse 1 #8 L Tenorio ulcer -Current Size (cm) - Length 1.0 -Current Size (cm) - Width 1.2 -Current Size (cm) - Depth 0.2 -Total Square Cm 1.20 -Date of Last Picture (Recall this 12/15/24 field) -Photo Taken Yes -Epithelialization Small 1-33% -Tunneling No -Undermining/Tunneling No -Circular Undermining No -Exudate Type Yellow/Green -Wound Margin Distinct, Outline Attached -Granulation Amt Small (1-33%) -Granulation Quality [place] -Slough/Fibrin Yes -Necrosis Amt Small (1-33%) -Necrotic Tissue Type Adherent Slough -Texture (Mima-wound Skin Appearance) Assessed -Color (Mima-wound Skin Appearance) Assessed -Tenderness on Palpation (Mima-wound No Skin Appearance) -Ulcer Cleansing Wound Cleanser -Foul Odor after Cleansing No -Anesthetic Used 5% Lidocaine Gel WC - Nurse 2 - General Ulcer CM Notes Start: 12/15/24 09:25 Freq: Status: Active Protocol: Activity Type Activity Date Activity User E-sign Co-sign Detail Recorded Client Recorded Date Recorded By Document 12/15/24 09:47 TENZIN [id number] 12/15/24 09:51 JF 12/15/24 09:47 Wound Center Nurse 2 -Time 09:47 -Correct Patient Yes -Correct Side, Site, Position Yes -Correct Procedure Yes -Procedure Performed Yes -Type of Procedure Debridement -Clinical Debridement Subcutaneous -Tissue Removed Subcutaneous -Post Debridement (cm) - Length 0.6 -Post Debridement (cm) - Width 0.4 -Post Debridement (cm) - Depth 1.3 -Total Square (Post) (cm) 0.24 -Area of Debridement (cm) - Length 0.6 -Area of Debridement (cm) - Width 0.4 -Total Square (Area) (cm) 0.24 -Tunneling No -Undermining/Tunneling No -Circular Undermining No -Wound/Ulcer Outcome Not Healed -Ulcer Cleansing Rinsed/ Irrigated with Saline -Foul Odor after Cleansing No -Bioengineered Tissue No -Bleeding Controlled with Pressure -Treatment Response Procedure Tolerated Well -Offloading No -Debridement - Subq, 1st 20sq cm Yes -Wound Comment(s) Axiofill sample applied exp date 2028 ID [id number] Pain Scale: 0-10 Numeric Is Patient Pain Free? Yes WC - Nurse 3 - General Ulcer D/C NN Start: 12/15/24 09:25 Freq: Status: Active Protocol: Activity Type Activity Date Activity User E-sign Co-sign Detail Recorded Client Recorded Date Recorded By Document 12/15/24 09:59 KW [id number] 12/15/24 10:00 KW 12/15/24 09:59 Wound Care Center Nurse 3 #8 L Tenorio ulcer -Primary Dressing Covered/Secured with Dry Gauze & Roll Gauze, Secured with Tape LLE -Compression Wrap Ino Wrap -Other 2 ino Pain Scale: 0-10 Numeric Is Patient Pain Free? Yes WC - Visit Discharge Discharge Condition Stable Ambulatory Status Ambulatory Transportation Private Auto Medication Reconcilliation completed & No provided to patient/care provider Clinical Summary of Care Provided Yes Assessment/Plan Assessment/Plan (1) Non-pressure chronic ulcer of other part of left lower leg with fat layer exposed: CODE(S): L97.822 - Non-pressure chronic ulcer of other part of left lower leg with fat layer exposed PLAN: Patient was examined and evaluated. All findings were discussed with the patient. All questions were answered to the patient's satisfaction. Excisional debridement down to and including subcutaneous tissue with a number 3 mm dermal curette to the left anterior leg without incident. Predebridement measurement was sanguinous crust. postdebridement measurement is 0.6 x 0.4 x 1.3 cm. The left full-thickness wound was flushed and wiped clean and patted dry. Axial fill with hydrogel was applied at a courtesy to the full-thickness wound and covered with mesh, Steri-Strips and a bolster dressing with compression wrap to left lower extremity. Patient will leave the mesh clean dry and intact and have the outer dressing changed by home health care. Educated the patient on smoking sensation. Follow-up at the wound care center with Dr. Estevez in 2 week.
--- NOTE | 2024-12-16 10:33 | WC ---
PHOTO 12/15/24 LEFT RODNEY
[2024-12-29 09:28] VITALS: BP 122/65; PULSE 83; RESP 16; TEMP 36.1
--- NOTE | 2024-12-29 11:25 | PCM.WC.PN ---
History of Present Illness Date of Service: 12/29/24 Chief Complaint: nonhealing ulcer left anterior leg. 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 Currently on amniotic skin graft substitutes and is doing well. Progress of Wound: Healing full-thickness wound anterior left leg. Subjective Subjective Ms. Calvert is a 64-year-old female presented wound care center for follow-up evaluation of full-thickness wound and skin graft application. Patient states that she fell the other day hitting her knee but overall is doing well. Patient notices great improvement to the full-thickness wound to anterior left leg. She denies any drainage redness or sign of infection. She can ambulate as tolerated with no discomfort. Denies constitutional symptoms. Empirically to this time Objective Data Objective Data Vital Signs: Vital Signs Temp Pulse Resp BP O2 Del Method 96.9 F L 83 16 122/65 H Room Air 12/29/24 09:28 12/29/24 09:28 12/29/24 09:28 12/29/24 09:28 12/15/24 09:36 Oxygen Delivery Method Room Air Physical Exam Narrative Vascular: DP and PT pulses are palpable. CFT is brisk. Skin temperature great is warm to warm from proximal ankle to the distal digits to left lower extremity. Nonpitting edema appreciated to left lower extremity. No erythema. Neurological: Light touch intact. Patient does respond to painful stimuli. Dermatological: There is evidence of a tunneling wound to the left leg measuring 0.6 x 0.4 x 1.4 cm. Wound base is granular with sanguinous drainage. No sign of infection. Excisional debridement down to and including subcutaneous tissue, fascia and muscle with a number 3 mm dermal curette to the left anterior leg without incident. Predebridement measurement was 0.3 x 0.3 x 0.6 cm. postdebridement measurement is 0.6 x 0.4 x 1.4 cm. Musculoskeletal: No pain on palpation of full-thickness ulceration to left tibia. No pain with calf compression. Debridement Note Debridement Note Debridement Free Text: Excisional debridement down to and including subcutaneous tissue, fascia and muscle with a number 3 mm dermal curette to the left anterior leg without incident. Predebridement measurement was 0.3 x 0.3 x 0.6 cm. postdebridement measurement is 0.6 x 0.4 x 1.4 cm. Post-Debridement Measurements and Additional Note: Post-Debridement Measurements/Treatment WC - Nurse 1 - General Ulcer Assessment Start: 12/15/24 09:25 Freq: Status: Active Protocol: ELENA Activity Type Activity Date Activity User E-sign Co-sign Detail Recorded Client Recorded Date Recorded By Document 12/15/24 09:36 GM [id number] 12/15/24 09:38 GM Document 12/29/24 09:28 CP [id number] 12/29/24 09:36 CP 12/15/24 12/29/24 09:36 09:28 WC - Today's Visit Information Type of service Follow-up Visit Follow-up Visit (Physician/ANNEALER (Physician/ANNEALER ) ) Arrival Mode Ambulatory Ambulatory Patient Identification Verified (Name & Yes Yes ) Patient Requires Transmission-Based No Precautions Vital Signs Temperature (97.8 F-99.1 F) 98.1 F 96.9 F L Temperature Source Temporal Temporal Pulse Rate (60-100) 82 83 Pulse Location Monitor Monitor Respiratory Rate (12-18) 18 16 Respiratory rate source Observation Observation Oxygen Delivery Method Room Air Blood Pressure (90/60-120/80) 124/67 H 122/65 H Blood Pressure Mean (mm Hg) 86 84 Source Monitor Monitor Position Sitting Sitting Blood Pressure Location Left Arm Right Arm History Since Last Visit- (Skip if this is Patient's initial visit) Have you changed medications since your No No last visit? Any new allergies or adverse reactions No No Had a fall/change in ADL's that may No No increase risk of falls Signs or symptoms of abuse and/or No No neglect since last visit Have you been in the hospital since your No No last visit? Has dressing in place as prescribed Yes Yes Has compression in place as prescribed Yes N/A Has offloadiing in place as prescribed N/A N/A Experienced any changes in pain level or No No management Pain Scale: 0-10 Numeric Is Patient Pain Free? Yes Yes YVETTE - Nurse 1 - General Ulcer Measurement Start: 12/15/24 09:25 Freq: Status: Active Protocol: Activity Type Activity Date Activity User E-sign Co-sign Detail Recorded Client Recorded Date Recorded By Document 12/15/24 09:36 GM [id number] 12/15/24 09:38 GM Edit Result 12/15/24 09:36 GM (1) [id number] 12/15/24 09:40 GM Document 12/29/24 09:28 CP [id number] 12/29/24 09:36 CP (1) #8 L Tenorio ulcer - Current Size (cm) - Length 98.1 => 1.0 - Current Size (cm) - Width => 1.2 - Current Size (cm) - Depth => 0.2 - Total Square Cm => 1.20 - Date of Last Picture (Recall this => 12/15/24 field) - Photo Taken => Yes - Epithelialization => Small 1-33% - Tunneling => No - Undermining/Tunneling => No - Circular Undermining => No - Exudate Type => Yellow/Green - Wound Margin => Distinct, Outline => Attached - Granulation Amt => Small (1-33%) - Granulation Quality => [place] - Slough/Fibrin => Yes - Necrosis Amt => Small (1-33%) - Necrotic Tissue Type => Adherent Slough - Texture (Mima-wound Skin Appearance) => Assessed - Color (Mima-wound Skin Appearance) => Assessed - Tenderness on Palpation (Mima-wound => No Skin Appearance) - Ulcer Cleansing => Wound Cleanser - Foul Odor after Cleansing => No - Anesthetic Used => 5% Lidocaine Gel 12/15/24 12/29/24 09:36 09:28 Wound Center Nurse 1 #8 L Tenorio ulcer -Current Size (cm) - Length 1.0 0.5 -Current Size (cm) - Width 1.2 0.4 -Current Size (cm) - Depth 0.2 0.1 -Total Square Cm 1.20 0.20 -Date of Last Picture (Recall this 12/15/24 field) -Photo Taken Yes -Epithelialization Small 1-33% Medium 34-66% -Tunneling No -Undermining/Tunneling No -Circular Undermining No -Exudate Amt Small -Exudate Type Yellow/Green Serous -Wound Margin Distinct, Flat & Intact Outline Attached -Granulation Amt Small (1-33%) Medium (34-66%) -Granulation Quality [place] -Slough/Fibrin Yes -Necrosis Amt Small (1-33%) Small (1-33%) -Necrotic Tissue Type Adherent Slough Adherent Slough -Structure Exposed N/A -Texture (Mima-wound Skin Appearance) Assessed No Abnormality -Moisture (Mima-wound Skin Appearance) No Abnormality -Color (Mima-wound Skin Appearance) Assessed No Abnormality -Temperature (Mima-wound Skin No Abnormality Appearance) (Pt Warm) -Tenderness on Palpation (Mima-wound No Skin Appearance) -Ulcer Cleansing Wound Cleanser Soap and Water -Foul Odor after Cleansing No No -Anesthetic Used 5% Lidocaine 5% Lidocaine Gel Gel WC - Nurse 2 - General Ulcer CM Notes Start: 12/15/24 09:25 Freq: Status: Active Protocol: Activity Type Activity Date Activity User E-sign Co-sign Detail Recorded Client Recorded Date Recorded By Document 12/15/24 09:47 [id number] 12/15/24 09:51 Document 12/29/24 09:49 [id number] 12/29/24 09:52 12/15/24 12/29/24 09:47 09:49 Wound Center Nurse 2 #8 L Tenorio ulcer -Time 09:47 09:49 -Correct Patient Yes Yes -Correct Side, Site, Position Yes Yes -Correct Procedure Yes Yes -Procedure Performed Yes Yes -Type of Procedure Debridement Debridement -Clinical Debridement Subcutaneous Muscle / Fascia -Tissue Removed Subcutaneous Muscle -Post Debridement (cm) - Length 0.6 0.6 -Post Debridement (cm) - Width 0.4 0.4 -Post Debridement (cm) - Depth 1.3 1.4 -Total Square (Post) (cm) 0.24 0.24 -Area of Debridement (cm) - Length 0.6 0.6 -Area of Debridement (cm) - Width 0.4 0.4 -Total Square (Area) (cm) 0.24 0.24 -Tunneling No No -Undermining/Tunneling No No -Circular Undermining No No -Wound/Ulcer Outcome Not Healed Not Healed -Ulcer Cleansing Rinsed/ Rinsed/ Irrigated with Irrigated with Saline Saline -Foul Odor after Cleansing No No -Bioengineered Tissue No No -Bleeding Controlled with Pressure Pressure -Treatment Response Procedure Procedure Tolerated Well Tolerated Well -Offloading No No -Debridement - Subq, 1st 20sq cm Yes -Debridement - Muscle / Fascia, 1st Yes 20sq cm -Wound Comment(s) Axiofill sample applied exp date 2028 ID [id number] Pain Scale: 0-10 Numeric Is Patient Pain Free? Yes Yes WC - Nurse 3 - General Ulcer D/C NN Start: 12/15/24 09:25 Freq: Status: Active Protocol: Activity Type Activity Date Activity User E-sign Co-sign Detail Recorded Client Recorded Date Recorded By Document 12/15/24 09:59 KW [id number] 12/15/24 10:00 KW Document 12/29/24 10:02 ML [id number] 12/29/24 10:03 ML 12/15/24 12/29/24 09:59 10:02 Wound Care Center Nurse 3 #8 L Tenorio ulcer -Ulcer Cleansing Rinsed/ Irrigated with Saline -Primary Dressing Applied Promogran Madelaine Matter -Primary Dressing Covered/Secured with Dry Gauze & Dry Gauze & Roll Gauze, Roll Gauze, Secured with Secured with Tape Tape -Promogran Mad[place]aine Matter 1 LLE -Compression Wrap Ino Wrap -Other 2 ino Pain Scale: 0-10 Numeric Is Patient Pain Free? Yes Yes WC - Visit Discharge Discharge Condition Stable Ambulatory Status Ambulatory Transportation Private Auto Medication Reconcilliation completed & No provided to patient/care provider Clinical Summary of Care Provided Yes Assessment/Plan Assessment/Plan (1) Non-pressure chronic ulcer of other part of left lower leg with necrosis of muscle: CODE(S): L97.823 - Non-pressure chronic ulcer of other part of left lower leg with necrosis of muscle PLAN: Patient was examined and evaluated. All findings were discussed with the patient. All questions were answered to the patient's satisfaction. Excisional debridement down to and including subcutaneous tissue, fascia and muscle with a number 3 mm dermal curette to the left anterior leg without incident. Predebridement measurement was 0.3 x 0.3 x 0.6 cm. postdebridement measurement is 0.6 x 0.4 x 1.4 cm. The left full-thickness wound was flushed, wiped clean and patted dry. Moist Madelaine was packed and will be changed every 2 days with assistance of home health care. Educated the patient that this could take a few more weeks to heal which she is understanding of. Patient is extremely grateful for her care and states that she has never seen her wound as small as it is currently. Educated the patient on smoking sensation. Follow-up at the wound care center with Dr. Estevez in 2 week.
== END 2025-01-05 23:59 | disposition home or self-care (01) ==
LOC: WC 09:30
PROVIDERS: Referring Provider Nurse Practitioner Family; Visit Provider Podiatrist Foot & Ankle Surgery
DX: L97.823 Non-pressure chronic ulcer of other part of left lower leg with necrosis of muscle (principal); F17.200 Nicotine dependence, unspecified, uncomplicated
CPT/HCPCS: 11042; 11043

== ENCOUNTER 2025-01-11 10:36 | Outpatient (RCR) | payer MEDICAID, SELFPAY | END 2025-02-05 23:59 | LOC: NS 10:36 | PROVIDERS: Referring Provider Nurse Practitioner Family; Visit Provider Nurse Practitioner Family | DX: Z71.3 Dietary counseling and surveillance (principal); E46 Unspecified protein-calorie malnutrition; E11.9 Type 2 diabetes mellitus without complications; E78.5 Hyperlipidemia, unspecified; J44.9 Chronic obstructive pulmonary disease, unspecified | CPT/HCPCS: 97803 ==

== ENCOUNTER 2025-02-02 09:30 | Outpatient (RCR) | payer MEDICAID, SELFPAY ==
[2025-01-06 00:28] VITALS: BP 122/65; PULSE 83; RESP 16; TEMP 36.1
[2025-01-12 08:54] VITALS: BP 116/62; PULSE 81; RESP 18; TEMP 36.1
--- NOTE | 2025-01-12 09:37 | PN.PCM_ITS ---
History of Present Illness Date of Service: 01/12/25 Chief Complaint: nonhealing ulcer left anterior leg. 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 Currently on amniotic skin graft substitutes and is doing well. Progress of Wound: Stable full-thickness wound to the left anterior leg. No sign of infection. Subjective Subjective Ms. Calvert is a 64-year-old female presenting to wound care center today follow- up evaluation of full-thickness wound to the anterior left leg. Patient is doing well after her surgery as well as with improvement to the wound to anterior left leg. She is getting home health care for scheduled dressing changes. She is watching her smoking and has been walking more and is pain-free at this time. Denies trauma. Denies constitutional symptoms. No other pedal complaints at this time. Objective Data Objective Data Vital Signs: Vital Signs Temp Pulse Resp BP O2 Del Method 97.0 F L 81 18 116/62 Room Air 01/12/25 08:54 01/12/25 08:54 01/12/25 08:54 01/12/25 08:54 01/12/25 08:54 Oxygen Delivery Method Room Air Physical Exam Narrative Vascular: DP and PT pulses are palpable. CFT is brisk. Skin temperature great is warm to warm from proximal ankle to the distal digits to left lower extremity. Nonpitting edema appreciated to left lower extremity. No erythema. Neurological: Light touch intact. Patient does respond to painful stimuli. Dermatological: There is evidence of a tunneling wound to the left leg measuring 0.5 x 0.2 x 1.0 cm. Wound base is granular with sanguinous drainage. No sign of infection. Excisional debridement down to and including subcutaneous tissue, fascia and muscle with a number 3 mm dermal curette to the left anterior leg without incident. Predebridement measurement was 0.2 x 0.3 x 0.8 cm. Postdebridement measurement is 0.5 x 0.2 x 1.0 cm. Musculoskeletal: No pain on palpation of full-thickness ulceration to left tibia. No pain with calf compression. Debridement Note Debridement Note Debridement Free Text: Excisional debridement down to and including subcutaneous tissue, fascia and muscle with a number 3 mm dermal curette to the left anterior leg without incident. Predebridement measurement was 0.2 x 0.3 x 0.8 cm. Postdebridement measurement is 0.5 x 0.2 x 1.0 cm. 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 Any new allergies or adverse reactions No Had a fall/change in ADL's that may No increase risk of falls Signs or symptoms of abuse and/or No neglect since last visit Have you been in the hospital since your No last visit? Has dressing in place as prescribed Yes Has compression in place as prescribed Yes Has offloadiing in place as prescribed Yes Experienced any changes in pain level or No management Left Footwear Regular Shoe Right Footwear Regular Shoe Pain Scale: 0-10 Numeric Is Patient Pain Free? Yes [facility] Nurse 1 - General Ulcer Measurement Start: 01/12/25 08:54 Freq: Status: Active Protocol: Activity Type Activity Date Activity User E-sign Co-sign Detail Recorded Client Recorded Date Recorded By Document 01/12/25 08:54 [id number] 01/12/25 08:59 01/12/25 08:54 Wound Center Nurse 1 #8 L Tenorio ulcer -Combined with other wound No -Current Size (cm) - Length 0.1 -Current Size (cm) - Width 0.2 -Current Size (cm) - Depth 0.2 -Total Square Cm 0.02 -Date of Last Picture (Recall this 01/12/25 field) -Photo Taken Yes -Epithelialization Large 67-100% -Tunneling No -Undermining/Tunneling No -Circular Undermining No -Exudate Amt Small -Wound Margin Distinct, Outline Attached -Granulation Amt Large (67-100%) -Granulation Quality [place] -Slough/Fibrin No -Necrosis Amt None Present (0 %) -Texture (Mima-wound Skin Appearance) Assessed -Moisture (Mima-wound Skin Appearance) Assessed -Color (Mima-wound Skin Appearance) Assessed -Temperature (Mima-wound Skin No Abnormality Appearance) (Pt Warm) -Tenderness on Palpation (Mima-wound No Skin Appearance) -Ulcer Cleansing Soap and Water -Foul Odor after Cleansing No -Anesthetic Used 5% Lidocaine Gel WC - Nurse 2 - General Ulcer CM Notes Start: 01/12/25 08:54 Freq: Status: Active Protocol: Activity Type Activity Date Activity User E-sign Co-sign Detail Recorded Client Recorded Date Recorded By Document 01/12/25 09:26 TENZIN [id number] 01/12/25 09:28 01/12/25 09:26 Wound Center Nurse 2 -Time 09:28 -Correct Patient Yes -Correct Side, Site, Position Yes -Correct Procedure Yes -Procedure Performed Yes -Type of Procedure Debridement -Clinical Debridement Muscle / Fascia -Tissue Removed Muscle -Post Debridement (cm) - Length 0.5 -Post Debridement (cm) - Width 0.2 -Post Debridement (cm) - Depth 1.0 -Total Square (Post) (cm) 0.10 -Area of Debridement (cm) - Length 0.5 -Area of Debridement (cm) - Width 0.2 -Total Square (Area) (cm) 0.10 -Tunneling No -Undermining/Tunneling No -Circular Undermining No -Wound/Ulcer Outcome Not Healed -Ulcer Cleansing Rinsed/ Irrigated with Saline -Foul Odor after Cleansing No -Bioengineered Tissue No -Bleeding Controlled with Pressure -Treatment Response Procedure Tolerated Well -Offloading No -Debridement - Muscle / Fascia, 1st Yes 20sq cm Pain Scale: 0-10 Numeric Is Patient Pain Free? Yes Assessment/Plan Assessment/Plan (1) Non-pressure chronic ulcer of other part of left lower leg with necrosis of muscle: CODE(S): L97.824 - Non-pressure chronic ulcer of other part of left lower leg with necrosis of muscle PLAN: Patient was examined and evaluated. All findings were discussed with the patient. All questions were answered to the patient's satisfaction. Excisional debridement down to and including subcutaneous tissue, fascia and muscle with a number 3 mm dermal curette to the left anterior leg without incident. Predebridement measurement was 0.2 x 0.3 x 0.8 cm. Postdebridement measurement is 0.5 x 0.2 x 1.0 cm. The left full-thickness wound was flushed, wiped clean and patted dry. Moist Madelaine was packed and will be changed every 2 days with assistance of home health care. Educated the patient on smoking sensation. Follow-up at the wound care center with Dr. Estevez in 3 week.
--- NOTE | 2025-01-13 10:24 | WC ---
PHOTO 01/12/25 LEFT RODNEY
[2025-02-02 09:34] VITALS: BP 126/54; PULSE 79; RESP 18; TEMP 36.5
--- NOTE | 2025-02-02 18:20 | PN.PCM_ITS ---
History of Present Illness Date of Service: 02/02/25 Chief Complaint: nonhealing ulcer left anterior leg. 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 Currently on amniotic skin graft substitutes and is doing well. Progress of Wound: Stable full-thickness wound to the left anterior leg. No sign of infection. Subjective Subjective Ms. Calvert is a 64-year-old female presenting to wound care center today follow- up evaluation of full-thickness wound to the anterior left leg. Patient is doing well and having home health care to change her dressing over the past 3 weeks 3 times per week. She can still continues to smoke but is slowing down. She is able to walk pain-free on the left lower extremity. Denies trauma. Denies constitutional symptoms. No other pedal complaints at this time. Objective Data Objective Data Vital Signs: Vital Signs Temp Pulse Resp BP O2 Del Method 97.7 F L 79 18 126/54 H Room Air 02/02/25 09:34 02/02/25 09:34 02/02/25 09:34 02/02/25 09:34 01/12/25 08:54 Oxygen Delivery Method Room Air Physical Exam Narrative Vascular: DP and PT pulses are palpable. CFT is brisk. Skin temperature great is warm to warm from proximal ankle to the distal digits to left lower extremity. Nonpitting edema appreciated to left lower extremity. No erythema. Neurological: Light touch intact. Patient does respond to painful stimuli. Dermatological: There is evidence of a tunneling wound to the left leg measuring 0.7 x 0.2 x 1.2 cm. Wound base is granular with sanguinous drainage. No sign of infection. Excisional debridement down to and including subcutaneous tissue, fascia and muscle with a number 3 mm dermal curette to the left anterior leg without incident. Predebridement measurement was 0.5 x 0.1 x 0.8 cm. Postdebridement measurement is 0.7 x 0.2 x 1.2 cm. Musculoskeletal: No pain on palpation of full-thickness ulceration to left tibia. No pain with calf compression. Debridement Note Debridement Note Debridement Free Text: Excisional debridement down to and including subcutaneous tissue, fascia and muscle with a number 3 mm dermal curette to the left anterior leg without incident. Predebridement measurement was 0.5 x 0.1 x 0.8 cm. Postdebridement measurement is 0.7 x 0.2 x 1.2 cm. 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 ) ) Arrival Mode Ambulatory Ambulatory Transfer Assistance None Patient Identification Verified (Name & Yes Yes ) Patient Requires Transmission-Based No No Precautions Vital Signs Temperature (97.8 F-99.1 F) 97.0 F L 97.7 F L Temperature Source Temporal Temporal Pulse Rate (60-100) 81 79 Pulse Location Monitor Monitor Respiratory Rate (12-18) 18 18 Respiratory rate source Ausculation Observation Oxygen Delivery Method Room Air Blood Pressure (90/60-120/80) 116/62 126/54 H Blood Pressure Mean (mm Hg) 80 78 Source Monitor Monitor Position Sitting Blood Pressure Location Left Arm History Since Last Visit- (Skip if this is Patient's initial visit) Have you changed medications since your No No last visit? Any new allergies or adverse reactions No No Had a fall/change in ADL's that may No No increase risk of falls Signs or symptoms of abuse and/or No No neglect since last visit Have you been in the hospital since your No No last visit? Has dressing in place as prescribed Yes Yes Has compression in place as prescribed Yes Yes Has offloadiing in place as prescribed Yes N/A Experienced any changes in pain level or No No management Left Footwear Regular Shoe Right Footwear Regular Shoe Pain Scale: 0-10 Numeric Is Patient Pain Free? Yes Yes [facility] Nurse 1 - General Ulcer Measurement Start: 01/12/25 08:54 Freq: Status: Active Protocol: Activity Type Activity Date Activity User E-sign Co-sign Detail Recorded Client Recorded Date Recorded By Document 01/12/25 08:54 GM [id number] 01/12/25 08:59 GM Document 02/02/25 09:34 DL [id number] 02/02/25 09:40 DL 01/12/25 02/02/25 08:54 09:34 Wound Center Nurse 1 #8 L Tenorio ulcer -Combined with other wound No -Current Size (cm) - Length 0.1 0.1 -Current Size (cm) - Width 0.2 0.1 -Current Size (cm) - Depth 0.2 0.1 -Total Square Cm 0.02 0.01 -Date of Last Picture (Recall this 01/12/25 field) -Photo Taken Yes Yes -Epithelialization Large 67-100% -Tunneling No -Tunneling Position (O'clock) 12 -Tunneling Distance (cm) 1.6 -Undermining/Tunneling No -Circular Undermining No -Exudate Amt Small Small -Exudate Type Serosanguineous -Wound Margin Distinct, Indistinct, Non Outline -Visible Attached -Granulation Amt Large (67-100%) Large (67-100%) -Granulation Quality [place] -Slough/Fibrin No -Necrosis Amt None Present (0 None Present (0 %) %) -Structure Exposed N/A -Texture (Mima-wound Skin Appearance) Assessed Localized Edema ,Scarring -Moisture (Mima-wound Skin Appearance) Assessed Dry/Scaly -Color (Mima-wound Skin Appearance) Assessed No Abnormality -Temperature (Mima-wound Skin No Abnormality No Abnormality Appearance) (Pt Warm) (Pt Warm) -Tenderness on Palpation (Mima-wound No No Skin Appearance) -Ulcer Cleansing Soap and Water Soap and Water -Foul Odor after Cleansing No No -Anesthetic Used 5% Lidocaine 5% Lidocaine Gel Gel WC - Nurse 2 - General Ulcer CM Notes Start: 01/12/25 08:54 Freq: Status: Active Protocol: Activity Type Activity Date Activity User E-sign Co-sign Detail Recorded Client Recorded Date Recorded By Document 01/12/25 09:26 [id number] 01/12/25 09:28 JF Document 02/02/25 10:04 JF [id number] 02/02/25 10:06 JF 01/12/25 02/02/25 09:26 10:04 Wound Center Nurse 2 #8 L Tenorio ulcer -Time 09:28 10:04 -Correct Patient Yes Yes -Correct Side, Site, Position Yes Yes -Correct Procedure Yes Yes -Procedure Performed Yes Yes -Type of Procedure Debridement Debridement -Clinical Debridement Muscle / Fascia Muscle / Fascia -Tissue Removed Muscle Muscle -Post Debridement (cm) - Length 0.5 0.7 -Post Debridement (cm) - Width 0.2 0.2 -Post Debridement (cm) - Depth 1.0 1.2 -Total Square (Post) (cm) 0.10 0.14 -Area of Debridement (cm) - Length 0.5 0.7 -Area of Debridement (cm) - Width 0.2 0.2 -Total Square (Area) (cm) 0.10 0.14 -Tunneling No No -Undermining/Tunneling No No -Circular Undermining No No -Wound/Ulcer Outcome Not Healed Not Healed -Ulcer Cleansing Rinsed/ Rinsed/ Irrigated with Irrigated with Saline Saline -Foul Odor after Cleansing No No -Bioengineered Tissue No No -Bleeding Controlled with Pressure Pressure -Treatment Response Procedure Procedure Tolerated Well Tolerated Well -Offloading No No -Debridement - Muscle / Fascia, 1st Yes Yes 20sq cm Pain Scale: 0-10 Numeric Is Patient Pain Free? Yes Yes - Nurse 3 - General Ulcer D/C NN Start: 01/12/25 08:54 Freq: Status: Active Protocol: Activity Type Activity Date Activity User E-sign Co-sign Detail Recorded Client Recorded Date Recorded By Document 01/12/25 09:39 [id number] 01/12/25 09:40 Document 02/02/25 10:16 [id number] 02/02/25 10:17 01/12/25 02/02/25 09:39 10:16 Wound Care Center Nurse 3 #8 L Tenorio ulcer -Ulcer Cleansing Not Cleansed -Foul Odor after Cleansing No -Primary Dressing Applied Promogran Promogran Madelaine Matter, Madelaine Matter, Silicone Border Silicone Border Foam 4x4 Foam 4x4 -Promogran Madelaine Matter 1 1 -Silicone Border Foam 4x4 1 1 LLE -Lotion applied to leg before No compression wrap -Compression Wrap Ino Wrap -Tubular Bandage Single Layer -Size of Tubigrip Used Size D -Size D ($) 1 Pain Scale: 0-10 Numeric Is Patient Pain Free? Yes Yes - Visit Discharge Discharge Condition Stable Stable Ambulatory Status Ambulatory Ambulatory Transportation Private Auto Private Auto Medication Reconcilliation completed & No provided to patient/care provider Clinical Summary of Care Provided Yes Yes Assessment/Plan Assessment/Plan (1) Non-pressure chronic ulcer of other part of left lower leg with necrosis of muscle: CODE(S): L97.823 - Non-pressure chronic ulcer of other part of left lower leg with necrosis of muscle PLAN: Patient was examined and evaluated. All findings were discussed with the patient. All questions were answered to the patient's satisfaction. Excisional debridement down to and including subcutaneous tissue, fascia and muscle with a number 3 mm dermal curette to the left anterior leg without incident. Predebridement measurement was 0.5 x 0.1 x 0.8 cm. Postdebridement measurement is 0.7 x 0.2 x 1.2 cm. The left full-thickness wound was flushed, wiped clean and patted dry. Moist Madelaine was packed and will be changed every 2 days with assistance of home health care. Educated the patient on smoking sensation. Follow-up at the wound care center with Dr. Estevez in 3 week.
--- NOTE | 2025-02-03 11:45 | WC ---
PHOTO 02/02/25 LEFT RODNEY
== END 2025-02-05 23:59 | disposition home or self-care (01) ==
LOC: WC 09:30
PROVIDERS: Referring Provider Nurse Practitioner Family; Visit Provider Podiatrist Foot & Ankle Surgery
DX: L97.823 Non-pressure chronic ulcer of other part of left lower leg with necrosis of muscle (principal); Z72.0 Tobacco use
CPT/HCPCS: 11043

== ENCOUNTER 2025-02-23 09:13 | Outpatient (RCR) | payer MEDICAID, SELFPAY ==
[2025-02-06 00:15] VITALS: BP 126/54; PULSE 79; RESP 18; TEMP 36.5
[2025-02-23 10:06] VITALS: BP 155/65; PULSE 70; RESP 18; TEMP 36.6
--- NOTE | 2025-02-23 12:58 | PCM.WC.PN ---
History of Present Illness Date of Service: 02/23/25 Chief Complaint: nonhealing ulcer left anterior leg. 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 Currently on amniotic skin graft substitutes and is doing well. Progress of Wound: Stable full-thickness wound to the left anterior leg. No sign of infection. Subjective Subjective Ms. Calvert is a 64-year-old diabetic female presenting to wound care center today for follow-up evaluation of full-thickness wound to anterior left leg. Patient is doing well and doing dressing changes as discussed with home health care. She admits great improvement to the wound and is almost healed. She still smokes but is improving with smoking less. Denies trauma. Denies constitutional symptoms. No other pedal complaints at this time. Objective Data Objective Data Vital Signs: Vital Signs Temp Pulse Resp BP O2 Del Method 97.8 F 70 18 155/65 H Room Air 02/23/25 10:06 02/23/25 10:06 02/23/25 10:06 02/23/25 10:06 02/23/25 10:06 Oxygen Delivery Method Room Air Physical Exam Narrative Vascular: DP and PT pulses are palpable. CFT is brisk. Skin temperature great is warm to warm from proximal ankle to the distal digits to left lower extremity. Nonpitting edema appreciated to left lower extremity. No erythema. Neurological: Light touch intact. Patient does respond to painful stimuli. Dermatological: There is evidence of a tunneling wound to the left leg measuring 0.3 x 0.2 x 0.1 cm. Wound base is granular with sanguinous drainage. No sign of infection. Excisional debridement down to and including subcutaneous tissue, fascia and muscle with a number 3 mm dermal curette to the left anterior leg without incident. Predebridement measurement was 0.2 x 0.2 x 0.2 cm. Postdebridement measurement is 0.3 x 0.2 x 0.5 cm. Musculoskeletal: No pain on palpation of full-thickness ulceration to left tibia. No pain with calf compression. Debridement Note Debridement Note Debridement Free Text: Excisional debridement down to and including subcutaneous tissue, fascia and muscle with a number 3 mm dermal curette to the left anterior leg without incident. Predebridement measurement was 0.2 x 0.2 x 0.2 cm. Postdebridement measurement is 0.3 x 0.2 x 0.5 cm. Post-Debridement Measurements and Additional Note: Post-Debridement Measurements/Treatment - Nurse 1 - General Ulcer Assessment Start: 02/23/25 10:05 Freq: Status: Active Protocol: ELENA Activity Type Activity Date Activity User E-sign Co-sign Detail Recorded Client Recorded Date Recorded By Document 02/23/25 10:06 [id number] 02/23/25 10:14 02/23/25 10:06 - Today's Visit Information Type of service Follow-up Visit (Physician/MANAGED CARE DIRECTOR ) Arrival Mode Ambulatory Transfer Assistance None Patient Identification Verified (Name & Yes ) Patient Requires Transmission-Based No Precautions Vital Signs Temperature (97.8 F-99.1 F) 97.8 F Temperature Source Temporal Pulse Rate (60-100) 70 Pulse Location Monitor Respiratory Rate (12-18) 18 Respiratory rate source Observation Oxygen Delivery Method Room Air Blood Pressure (90/60-120/80) 155/65 H Blood Pressure Mean (mm Hg) 95 Source Monitor Position Sitting Blood Pressure Location Left Arm History Since Last Visit- (Skip if this is Patient's initial visit) Have you changed medications since your No last visit? Any new allergies or adverse reactions No Had a fall/change in ADL's that may No increase risk of falls Signs or symptoms of abuse and/or No neglect since last visit Have you been in the hospital since your No last visit? Has dressing in place as prescribed Yes Pain Scale: 0-10 Numeric Is Patient Pain Free? Yes - Nurse 1 - General Ulcer Measurement Start: 02/23/25 10:05 Freq: Status: Active Protocol: Activity Type Activity Date Activity User E-sign Co-sign Detail Recorded Client Recorded Date Recorded By Document 02/23/25 10:06 [id number] 02/23/25 10:14 02/23/25 10:06 Wound Center Nurse 1 #8 L Tenorio ulcer -Current Size (cm) - Length 0.4 -Current Size (cm) - Width 0.2 -Current Size (cm) - Depth 0.2 -Total Square Cm 0.08 -Photo Taken No -Epithelialization Small 1-33% -Tunneling Yes -Tunneling Position (O'clock) 12 -Tunneling Distance (cm) 0.9 -Undermining/Tunneling No -Circular Undermining No -Exudate Amt Small -Exudate Type Yellow/Green -Wound Margin Distinct, Outline Attached -Granulation Amt Small (1-33%) -Granulation Quality [place] -Slough/Fibrin Yes -Necrosis Amt Small (1-33%) -Necrotic Tissue Type Adherent Slough -Texture (Mima-wound Skin Appearance) Assessed -Moisture (Mima-wound Skin Appearance) Assessed -Color (Mima-wound Skin Appearance) Assessed -Temperature (Mima-wound Skin No Abnormality Appearance) (Pt Warm) -Tenderness on Palpation (Mima-wound No Skin Appearance) -Ulcer Cleansing Soap and Water -Foul Odor after Cleansing No -Anesthetic Used 5% Lidocaine Gel Left Calf (cm) 27 Left Ankle (cm) 19.5 WC - Nurse 2 - General Ulcer CM Notes Start: 02/23/25 10:05 Freq: Status: Active Protocol: Activity Type Activity Date Activity User E-sign Co-sign Detail Recorded Client Recorded Date Recorded By Document 02/23/25 10:50 [id number] 02/23/25 10:52 02/23/25 10:50 Wound Center Nurse 2 #8 L Tenorio ulcer -Time 10:50 -Correct Patient Yes -Correct Side, Site, Position Yes -Correct Procedure Yes -Procedure Performed Yes -Type of Procedure Debridement -Clinical Debridement Subcutaneous -Tissue Removed Subcutaneous -Post Debridement (cm) - Length 0.3 -Post Debridement (cm) - Width 0.2 -Post Debridement (cm) - Depth 0.5 -Total Square (Post) (cm) 0.06 -Area of Debridement (cm) - Length 0.3 -Area of Debridement (cm) - Width 0.2 -Total Square (Area) (cm) 0.06 -Tunneling No -Undermining/Tunneling No -Circular Undermining No -Wound/Ulcer Outcome Not Healed -Ulcer Cleansing Rinsed/ Irrigated with Saline -Foul Odor after Cleansing No -Bioengineered Tissue No -Bleeding Controlled with Pressure -Treatment Response Procedure Tolerated Well -Offloading No -Debridement - Subq, 1st 20sq cm Yes Pain Scale: 0-10 Numeric Is Patient Pain Free? Yes - Nurse 3 - General Ulcer D/C NN Start: 02/23/25 10:05 Freq: Status: Active Protocol: Activity Type Activity Date Activity User E-sign Co-sign Detail Recorded Client Recorded Date Recorded By Document 02/23/25 11:08 [id number] 02/23/25 11:09 02/23/25 11:08 Wound Care Center Nurse 3 #8 L Tenorio ulcer -Foul Odor after Cleansing No -Primary Dressing Applied Promogran Madelaine Matter, Silicone Border Foam 4x4 -Promogran Madelaine Matter 1 -Silicone Border Foam 4x4 1 LLE -Lotion applied to leg before No compression wrap -Tubular Bandage Single Layer -Size of Tubigrip Used Size D -Size D ($) 1 Pain Scale: 0-10 Numeric Is Patient Pain Free? Yes WC - Visit Discharge Discharge Condition Stable Ambulatory Status Ambulatory Transportation Private Auto Assessment/Plan Assessment/Plan (1) Non-pressure chronic ulcer of other part of left lower leg with fat layer exposed: CODE(S): L97.822 - Non-pressure chronic ulcer of other part of left lower leg with fat layer exposed PLAN: Patient was examined and evaluated. All findings were discussed with the patient. All questions were answered to the patient's satisfaction. Excisional debridement down to and including subcutaneous tissue, fascia and muscle with a number 3 mm dermal curette to the left anterior leg without incident. Predebridement measurement was 0.2 x 0.2 x 0.2 cm. Postdebridement measurement is 0.3 x 0.2 x 0.5 cm. The left full-thickness wound was flushed, wiped clean and patted dry. Moist Madelaine was packed and will be changed every 2 days with assistance of home health care. Educated the patient on smoking sensation. Follow-up at the wound care center with Dr. Estevez in 3 week.
== END 2025-03-07 23:59 | disposition home or self-care (01) ==
LOC: WC 09:13
PROVIDERS: Referring Provider Nurse Practitioner Family; Visit Provider Podiatrist Foot & Ankle Surgery
DX: E11.622 Type 2 diabetes mellitus with other skin ulcer (principal); L97.822 Non-pressure chronic ulcer of other part of left lower leg with fat layer exposed; F17.200 Nicotine dependence, unspecified, uncomplicated
CPT/HCPCS: 11042

== ENCOUNTER 2025-03-15 10:30 | Outpatient (RCR) | payer MEDICAID, SELFPAY | END 2025-04-07 23:59 | LOC: NS 10:30 | PROVIDERS: Referring Provider Nurse Practitioner Family; Visit Provider Nurse Practitioner Family | DX: Z71.3 Dietary counseling and surveillance (principal); E46 Unspecified protein-calorie malnutrition; M06.9 Rheumatoid arthritis, unspecified | CPT/HCPCS: 97803 ==

== ENCOUNTER 2025-03-28 11:05 | Emergency (ER) | payer MEDICAID, SELFPAY ==
[2025-03-28 11:07] VITALS: BP 139/56; PULSE 94; RESP 16; TEMP 37.1; O2SAT 100; BMI 20.1
[2025-03-28 11:09] VITALS: BP 131/72; PULSE 91; RESP 15; TEMP 36.8; O2SAT 100
[2025-03-28 12:09] VITALS: BP 133/71; PULSE 79; RESP 16; TEMP 37.1; O2SAT 100
[2025-03-28 12:52] LABS: Hematocrit 37.9 % (37-47); Hemoglobin 12.5 g/dL (12.0-15.0); Immature Granulocytes Count 0.010 X10^3/uL (0.0-0.0); Mean Corp Hgb Conc 33.0 g/dL (32-36); Mean Corpuscular Volume 92.0 fL (81-99); Mean Platelet Vol. 10.4 fl (6.2-12.0); NRBC Flagged by Analyzer 0 % (0-5); Platelet Count 182 K/mm3 (150-450); RBC Distribution Width CV 12.7 % (11.6-14.6); RBC Distribution Width SD 42.8 fl (35.1-43.9); Red Blood Count 4.12 M/mm3 (4.2-5.4); White Blood Count 4.8 K/mm3 (4.4-11.0)
[2025-03-28 13:00] VITALS: BP 133/57; PULSE 75; RESP 17; TEMP 36.3; O2SAT 100
--- NOTE | 2025-03-28 13:36 | EX.ED.DYSGE1 ---
HPI History of Present Illness Chief Complaint: Rash Informant: patient and spouse/S.O. Narrative Narrative: Presents here for worsening rash over the last couple days. Patient is a diabetic. States had a chronic left leg wound for the past year. She seen by wound care. She states had debridement this past Friday by Dr. Neumann. She states since then approximately Friday noted some itching and redness to her feet. She was called by her PCP on Friday was called in [facility] for her wound infection. She states the rash in her feet started first. After Bactrim rash progressed into her groin area along with her hands. States it levi and itches. No lip or tongue swelling. Denies fever chills or sweats. PFSH [facility] Medical History Alcohol use Rheumatoid arthritis Back pain Diabetes Shortness of breath on exertion Hoarseness Open wound History of pain when walking DM type 2, goal HbA1c < 7% Loss of hearing Wears dentures Anemia High cholesterol Epilepsy Gastric reflux Emphysema, unspecified MRSA (methicillin resistant Staphylococcus aureus) infection Sequelae of open wound of left lower extremity DM type 2, goal HbA1c < 7% FH: bilateral hip replacements Depression Anxiety Smoker Myocardial infarct Osteomyelitis Home Medications ?Medication ?Instructions ?Recorded ?Last Taken ?Type alendronate 70 mg tablet 70 mg PO SA BONES 12/22/16 06/15/24 History ipratropium 20 mcg-albuterol 100 1 puff inhalation Q6H SOB 12/22/16 06/15/24 History mcg/actuation mist for inhalation (Combivent Respimat) phenytoin sodium extended 100 mg 100 mg PO BID@0900,1700 SEIZURES 12/22/16 08/02/24 05:30 History capsule ascorbic acid (vitamin C) 500 mg 500 mg PO DAILY SUPPLEMENT 06/12/20 06/15/24 History tablet benzonatate 100 mg capsule 100 mg PO DAILY PRN Cough 06/12/20 Unknown History cyclobenzaprine 10 mg tablet 10 mg PO BID PRN PRN BACK 06/12/20 06/13/24 History diclofenac sodium 75 mg 75 mg PO BID PRN PRN BACK PAIN 06/12/20 Unknown History tablet,delayed release folic acid 1 mg tablet 1 mg PO BID SUPPLEMENT 06/12/20 06/15/24 History loratadine 10 mg tablet 10 mg PO DAILY ALLERGIES 06/12/20 08/02/24 05:30 History pravastatin 20 mg tablet 20 mg PO QHS CHOLESTEROL 06/12/20 06/15/24 History cholecalciferol (vitamin D3) 25 5,000 unit PO DAILY 06/15/20 06/15/24 Rx mcg (1,000 unit) tablet omeprazole 40 mg capsule,delayed 40 mg PO DAILY #30 caps 07/08/22 08/02/24 05:30 Rx release docusate sodium 100 mg capsule 100 mg PO BID #60 caps 05/02/23 08/02/24 05:30 Rx (Colace) nitroglycerin 0.4 mg sublingual 0.4 mg sublingual Q5M 08/18/23 Unknown History tablet (Nitrostat) sertraline 50 mg tablet (Zoloft) 75 mg PO BID 08/18/23 06/16/24 History fluticasone fur. 200 mcg-umeclid 1 ea inhalation DAILY 04/22/24 06/16/24 History 62.5 mcg-vilant 25 mcg inhalat.powder (Trelegy Ellipta) lorazepam 0.5 mg tablet (Ativan) 0.5 mg PO TID PRN anxiety 04/22/24 08/02/24 05:30 History ascorbic acid (vitamin C) 1,000 mg 1 g PO DAILY 90 days #90 tabs 06/16/24 Unknown Rx tablet (Vitamin C) aspirin 81 mg tablet,delayed 81 mg PO DAILY 30 days #30 tabs 06/16/24 07/31/24 Rx release calcium 500 mg (as 1 tab PO DAILY 90 days #90 tabs 06/16/24 Unknown Rx carbonate)-vitamin D3 15 mcg (600 unit) tablet (Os-Ángel 500 + D3) ascorbic acid (vitamin C) 1,000 mg 1 g PO DAILY 90 days #90 tabs 08/02/24 Unknown Rx tablet (Vitamin C) aspirin 81 mg tablet,delayed 81 mg PO DAILY 30 days #30 tabs 08/02/24 Unknown Rx release calcium 500 mg (as 1 tab PO DAILY 90 days #90 tabs 08/02/24 Unknown Rx carbonate)-vitamin D3 15 mcg (600 unit) tablet (Os-Ángel 500 + D3) cyclobenzaprine 10 mg tablet 10 mg PO TID muscle spasm 7 days 08/02/24 Unknown Rx #21 tabs docusate sodium 100 mg capsule 100 mg PO DAILY 10 days #10 caps 08/02/24 Unknown Rx (Colace) oxycodone-acetaminophen 5 mg-325 1 tab PO Q6H PRN pain 7 days #28 08/02/24 Unknown Rx mg tablet (Percocet) tabs oxycodone-acetaminophen 5 mg-325 1 tab PO Q6H PRN pain 7 days #28 08/17/24 Unknown Rx mg tablet (Percocet) tabs ascorbic acid (vitamin C) 1,000 mg 1 g PO DAILY 90 days #90 tabs 08/25/24 Unknown Rx tablet (Vitamin C) calcium 500 mg (as 1 tab PO DAILY 90 days #90 tabs 08/25/24 Unknown Rx carbonate)-vitamin D3 15 mcg (600 unit) tablet (Os-Ángel 500 + D3) oxycodone-acetaminophen 5 mg-325 1 tab PO Q12H pain 7 days #14 tabs 08/25/24 Unknown Rx mg tablet (Percocet) cefdinir 300 mg capsule 300 mg PO BID 2 weeks #28 caps 08/28/24 Unknown Rx ondansetron 4 mg disintegrating 4 mg PO Q8H PRN nausea and 08/31/24 Unknown Rx tablet vomiting 5 days #15 tabs fluconazole 200 mg tablet 200 mg PO DAILY #14 tabs 03/28/25 Unknown Rx metronidazole 500 mg tablet 500 mg PO Q8H 10 days #30 tabs 03/28/25 Unknown Rx nystatin 100,000 unit/gram topical 1 applic topical BID #30 grams 03/28/25 Unknown Rx cream Allergy/AdvReac Type Severity Reaction Status Date / Time Penicillins Allergy Severe Shortness Verified 03/28/25 11:09 of breath sulfamethoxazole (From Allergy Mild Rash Verified 03/28/25 11:09 Bactrim) trimethoprim (From Bactrim) Allergy Mild Rash Verified 03/28/25 11:09 amoxicillin Allergy Hives Verified 03/28/25 11:09 aspirin AdvReac it chokes Verified 03/28/25 11:09 me. gabapentin AdvReac hallucinati Verified 03/28/25 13:21 on Family History Mother Arthritis Surgical History History of biopsy (05/06/24) History of incision and drainage Hx of right cataract extraction Hx of left cataract extraction H/O: hysterectomy History of cardiac catheterization H/O repair of right rotator cuff History of cholecystectomy Social History Smoking Status: Current every day smoker tobacco type: cigarettes ROS ROS ED Constitutional Constitutional ED: Denies fever(s) Cardiovascular Cardiovascular: Denies chest pain Respiratory/Chest Respiratory/Chest: Denies cough Gastrointestinal Gastrointestinal: Denies diarrhea or vomiting Musculoskeletal Musculoskeletal: Denies none Integumentary Reports rash and wounds Neurologic Neurologic: Denies weakness EXAM Physical Exam Const Vital Signs: 03/28/25 11:07 03/28/25 11:09 03/28/25 12:09 Temperature 98.7 F 98.2 F 98.7 F Temperature Source Oral Oral Oral Pulse Rate 94 91 79 Respiratory Rate 16 15 16 Blood Pressure 139/56 H 131/72 H 133/71 H Blood Pressure Mean 83 91 91 Pulse Ox 100 100 100 Oxygen Delivery Method Room Air Room Air Room Air 03/28/25 13:00 Temperature 97.4 F L Temperature Source Temporal Pulse Rate 75 Respiratory Rate 17 Blood Pressure 133/57 H Blood Pressure Mean 82 Pulse Ox 100 Oxygen Delivery Method Room Air Positive well nourished and well developed General Appearance ED: well developed HEENT normocephalic and atraumatic Eyes General Eye ED: Yes normal appearance of both eyes Neck full ROM Resp normal respiratory effort and normal air movement Cardio regular rate and regular rhythm GI soft to palpation Extremity full ROM Neuro oriented x3 Skin Skin Narrative: Bilateral feet: There is redness both feet no streaking. Outlined demarcations consistent with her shoes. Left lower leg dressed anteriorly clean, dry, intact. There is no redness around this. Bilateral palmar aspect hands with erythema. No drainage. Bilateral medial elbows with circular ecchymosis in nature. Nontender. No streaking. 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 No induration is no fluctuance. MDM MDM MDM Narrative Medical decision making narrative: Interventions / MDM: Differential diagnosis: Fungal infection, history of diabetes, left lower extremity chronic wound. Diagnosis considered but do not suspect: Lower suspicion for cellulitis. My EKG interpretation: N/A Imaging independently reviewed and interpreted by myself: N/A External documents reviewed: Per culture wound notes MRSA, corneal bacteria, and Pasteurella. MRSA sensitive to doxycycline and Bactrim. Her anaerobic notes should be sensitive to penicillins and carbapenems and Flagyl. Test considered but not ordered:N/A ED course: Patient exam demarcation erythema palms feet groin area more consistent with fungal infections. She is a diabetic started on antibiotics when groin symptoms started. Multiple areas of involvement we will check labs and liver enzymes for plans of starting oral antifungals. Blood work stable white count 4.8. Normal creatinine 0.56. Stable liver enzymes. Interim nursing observed call from PCP office states told her to stop the Bactrim they called in but doxycycline and Benadryl. I discussed this with the patient who also had it was relayed information by PCP office. I will add Flagyl with noted anaerobe positive for Corynebacterium along with Pasteurella. I will treat her for fungal infections with fluconazole daily for the next 2 weeks. She nystatin cream for her genital areas. She will keep the area dry showers. She will wash her shoes. She will follow-up with her PCP. All questions were answered. Re-evaluation: stable Disposition discussed with patient/family/significant other: Patient and significant other Case discussed with consulting clinician: N/A This note was generated with [employer] dictation software. It may contain incorrect words, spelling, and punctuation that were not noted in checking the note before signing. Lab Data Attestation: I reviewed the patient's lab results. Labs: Laboratory Results - last 24 hr 03/28/25 12:40 WBC 4.8 RBC 4.12 L Hgb 12.5 Hct 37.9 MCV 92.0 MCH 30.3 MCHC 33.0 RDW Std Deviation 42.8 RDW Coeff of Brittany 12.7 Plt Count 182 MPV 10.4 Immature Gran % (Auto) 0.200 Neut % (Auto) 71.8 H Lymph % (Auto) 16.9 L Jackson % (Auto) 9.2 Eos % (Auto) 1.9 Baso % (Auto) 0.0 Absolute Neuts (auto) 3.4 Absolute Lymphs (auto) 0.81 L Nucleated RBC % 0 Sodium 139 Potassium 4.1 Chloride 103 Carbon Dioxide 25.6 Anion Gap 11 BUN 14 Creatinine 0.56 L Estim Creat Clear Calc 72.60 Est GFR (MDRD) Non-Af 102 BUN/Creatinine Ratio 25.4 H Glucose 128 H Calcium 9.2 Total Bilirubin 0.18 AST 33 H ALT 35 Alkaline Phosphatase 124 H Total Protein 6.8 Albumin 4.0 Globulin 2.8 Albumin/Globulin Ratio 1.4 Discharge Plan Triage Chief Complaint: Rash ED Provider: Joe Delarosa Dx/Rx/DC Orders Clinical Impression: Fungal infection of skin, MRSA infection, Wound infection, Pasteurella infection, Infection due to Corynebacterium species Instructions: Wound Infection Tx, ED Fungal Skin Infection (Tinea) Prescriptions: New fluconazole 200 mg tablet 200 mg PO DAILY Qty: 14 0RF metronidazole 500 mg tablet 500 mg PO Q8H 10 Days Qty: 30 0RF nystatin 100,000 unit/gram cream 1 applic topical BID Qty: 30 0RF No Action alendronate 70 MG tablet 70 mg PO SA phenytoin sodium extended 100 MG capsule 100 mg PO BID@0900,1700 Combivent Respimat 1 PUFF inhaler 1 puff inhalation Q6H cyclobenzaprine 10 MG tablet 10 mg PO BID PRN PRN (Reason: BACK) ascorbic acid (vitamin C) 500 MG tablet 500 mg PO DAILY benzonatate 100 MG capsule 100 mg PO DAILY PRN (Reason: Cough) diclofenac sodium 75 MG tablet 75 mg PO BID PRN PRN (Reason: BACK PAIN) folic acid 1 MG tablet 1 mg PO BID pravastatin 20 MG tablet 20 mg PO QHS loratadine 10 MG tablet 10 mg PO DAILY cholecalciferol (vitamin D3) 1,000 UNIT tablet 5,000 unit PO DAILY 0RF omeprazole 40 mg capsule,delayed release(DR/EC) 40 mg PO DAILY Qty: 30 0RF sertraline [Zoloft] 50 mg tablet 75 mg PO BID nitroglycerin [Nitrostat] 0.4 mg tablet, sublingual 0.4 mg sublingual Q5M Rx Instructions: do not exceed 3 doses per episode aspirin 81 mg tablet,delayed release (DR/EC) 81 mg PO DAILY 30 Days Qty: 30 0RF calcium carbonate-vitamin D3 [Os-Ángel 500 + D3] 500 mg-15 mcg (600 unit) tablet 1 tab PO DAILY 90 Days Qty: 90 0RF ascorbic acid (vitamin C) [Vitamin C] 1,000 mg tablet 1 g PO DAILY 90 Days Qty: 90 0RF oxycodone-acetaminophen [Percocet] 5-325 mg tablet 1 tab PO Q6H PRN (Reason: pain) 7 Days Qty: 28 0RF aspirin 81 mg tablet,delayed release (DR/EC) 81 mg PO DAILY 30 Days Qty: 30 0RF docusate sodium [Colace] 100 mg capsule 100 mg PO DAILY 10 Days Qty: 10 0RF cyclobenzaprine 10 mg tablet 10 mg PO TID 7 Days Qty: 21 0RF calcium carbonate-vitamin D3 [Os-Ángel 500 + D3] 500 mg-15 mcg (600 unit) tablet 1 tab PO DAILY 90 Days Qty: 90 0RF ascorbic acid (vitamin C) [Vitamin C] 1,000 mg tablet 1 g PO DAILY 90 Days Qty: 90 0RF oxycodone-acetaminophen [Percocet] 5-325 mg tablet 1 tab PO Q6H PRN (Reason: pain) 7 Days Qty: 28 0RF Trelegy Ellipta 200-62.5-25 mcg blister with device 1 ea INHALATION DAILY lorazepam [Ativan] 0.5 mg tablet 0.5 mg PO TID PRN (Reason: anxiety) oxycodone-acetaminophen [Percocet] 5-325 mg tablet 1 tab PO Q12H 7 Days Qty: 14 0RF calcium carbonate-vitamin D3 [Os-Ángel 500 + D3] 500 mg-15 mcg (600 unit) tablet 1 tab PO DAILY 90 Days Qty: 90 0RF ascorbic acid (vitamin C) [Vitamin C] 1,000 mg tablet 1 g PO DAILY 90 Days Qty: 90 0RF cefdinir 300 mg capsule 300 mg PO BID 14 Days Qty: 28 0RF ondansetron 4 mg tablet,disintegrating 4 mg PO Q8H PRN (Reason: nausea and vomiting) 5 Days Qty: 15 0RF docusate sodium [Colace] 100 mg capsule 100 mg PO BID Qty: 60 0RF Primary Care Provider: JOANNE VINSON Referrals: JOANNE VINSON [Other] - 1-2 Weeks Activity Restrictions/Additional Instructions: With your rash I suspect fungal infection groin area feet and hands. Less likely concerns for Bactrim reaction. However your PCP told you to stop Bactrim and doxycycline was sent in. Review of your cultures had MRSA which is covered by Doxy. In addition had Corynebacterium and Pasteurella anaerobic infections which needs additional antibiotics. You were started on Flagyl. Take fluconazole daily for next 2 weeks with concerns for your fungal infection. Baseline kidney function and liver enzymes are stable. Use nystatin cream in your groin area twice a day. Make sure to keep this dry avoid moisture. Wash your shoes. Follow-up with your doctor. Print Language: Faroese Disposition Disposition: Home, Self Care
[2025-03-28 13:50] LABS: AST(SGOT) 33 U/L (<=31); Alanine Aminotransfer ALT/SGPT 35 U/L (<=34); Albumin, Serum 4.0 g/dL (3.4-4.8); Alkaline Phosphatase 124 U/L (35-104); Anion Gap 11 (5-15); BUN 14 mg/dL (4-19); BUN/Creat Ratio 25.4 RATIO (10-20); Calcium,Total 9.2 mg/dL (7.6-11.0); Carbon Dioxide 25.6 mmol/L (21.0-32.0); Chloride 103 mmol/L (98-108); Estimated Creatinine Clearance 72.60 ml/min (50-250); Globulin 2.8 g/dL (2.2-4.2); Glucose 128 mg/dL (70-99); Potassium 4.1 mmol/L (3.3-5.1)
[2025-03-28 14:19] VITALS: BP 130/76; PULSE 77; RESP 18; TEMP 36.7; O2SAT 99
== END 2025-03-28 14:27 | disposition home or self-care (01) ==
PROVIDERS: Emergency Provider Emergency Medicine; Visit Provider Emergency Medicine
DX: B37.2 Candidiasis of skin and nail (principal); J43.9 Emphysema, unspecified; G40.909 Epilepsy, unspecified, not intractable, without status epilepticus; E11.9 Type 2 diabetes mellitus without complications; A28.0 Pasteurellosis; B96.89 Other specified bacterial agents as the cause of diseases classified elsewhere; L08.9 Local infection of the skin and subcutaneous tissue, unspecified; E78.00 Pure hypercholesterolemia, unspecified; B95.62 Methicillin resistant Staphylococcus aureus infection as the cause of diseases classified elsewhere; F32.A Depression, unspecified; F41.9 Anxiety disorder, unspecified; F17.210 Nicotine dependence, cigarettes, uncomplicated; I25.2 Old myocardial infarction; Z79.82 Long term (current) use of aspirin; Z79.899 Other long term (current) drug therapy; Z96.643 Presence of artificial hip joint, bilateral
CPT/HCPCS: 80053; 85025; 99284

== ENCOUNTER 2025-04-06 08:45 | Outpatient (RCR) | payer MEDICAID, SELFPAY ==
[2025-03-23 09:17] VITALS: BP 113/57; PULSE 77; RESP 16; TEMP 36.8
--- NOTE | 2025-03-23 12:05 | PN.PCM_ITS ---
History of Present Illness Date of Service: 03/23/25 Chief Complaint: nonhealing ulcer left anterior leg. History of Wound: Patient has been getting home health care with packing of Madelaine to the full-thickness wound. Evidence of granuloma. Progress of Wound: Stable full-thickness wound left anterior leg Subjective Subjective Patient is a 64-year-old diabetic female presented wound care center today for follow-up evaluation of full-thickness wound to anterior left leg. Patient has been getting home health care with every other day packing of moist Madelaine. Patient states the wound is healing but notices overgrowth of tissue to the wound area. She is concerned for infection. Her blood sugar has been controlled. She still smokes even though she knows she needs to quit. She has been eating more protein and drinking her dietarily supplementation. Denies trauma. Denies constitutional symptoms. No other pedal complaints at this time. Objective Data Objective Data Vital Signs: Vital Signs Temp Pulse Resp BP 98.2 F 77 16 113/57 L 03/23/25 09:17 03/23/25 09:17 03/23/25 09:17 03/23/25 09:17 Physical Exam Narrative Vascular: DP and PT pulses are palpable. CFT is brisk. Skin temperature great is warm to warm from proximal ankle to the distal digits to left lower extremity. Nonpitting edema appreciated to left lower extremity. No erythema. Neurological: Light touch intact. Patient does respond to painful stimuli. Dermatological: There is evidence of a tunneling wound to the left leg measuring 0.7 x 0.4 x 1.4 cm. Wound base is granular with sanguinous drainage. Excisional debridement down to and including subcutaneous tissue, fascia and muscle with a number 3 mm dermal curette to the left anterior leg without incident. Predebridement measurement was a granuloma measuring 0.2 x 0.2 x 0.1 cm. Postdebridement measurement is 0.7 x 0.4 x 1.4 cm. Musculoskeletal: No pain on palpation of full-thickness ulceration to left tibia. No pain with calf compression. Debridement Note Debridement Note Debridement Free Text: Excisional debridement down to and including subcutaneous tissue, fascia and muscle with a number 3 mm dermal curette to the left anterior leg without incident. Predebridement measurement was a granuloma measuring 0.2 x 0.2 x 0.1 cm. Postdebridement measurement is 0.7 x 0.4 x 1.4 cm. Post-Debridement Measurements and Additional Note: Post-Debridement Measurements/Treatment - Nurse 1 - General Ulcer Assessment Start: 03/23/25 09:17 Freq: Status: Active Protocol: ELENA Activity Type Activity Date Activity User E-sign Co-sign Detail Recorded Client Recorded Date Recorded By Document 03/23/25 09:17 DENA [id number] 03/23/25 09:22 03/23/25 09:17 - Today's Visit Information Type of service Follow-up Visit (Physician/SUPERVISOR QUALITY CONTROL ) Arrival Mode Ambulatory,Cane Patient Identification Verified (Name & Yes ) Patient Requires Transmission-Based No Precautions Safety Precautions NA Vital Signs Temperature (97.8 F-99.1 F) 98.2 F Temperature Source Oral Pulse Rate (60-100) 77 Pulse Location Monitor Respiratory Rate (12-18) 16 Respiratory rate source Observation Blood Pressure (90/60-120/80) 113/57 L Blood Pressure Mean (mm Hg) 75 Source Monitor Position Sitting Blood Pressure Location Left Arm History Since Last Visit- (Skip if this is Patient's initial visit) Have you changed medications since your No last visit? Any new allergies or adverse reactions No Had a fall/change in ADL's that may No increase risk of falls Signs or symptoms of abuse and/or No neglect since last visit Have you been in the hospital since your No last visit? Has dressing in place as prescribed Yes Has compression in place as prescribed Yes Has offloadiing in place as prescribed N/A Experienced any changes in pain level or No management Pain Scale: 0-10 Numeric Is Patient Pain Free? Yes - Nurse 1 - General Ulcer Measurement Start: 03/23/25 09:17 Freq: Status: Active Protocol: Activity Type Activity Date Activity User E-sign Co-sign Detail Recorded Client Recorded Date Recorded By Document 03/23/25 09:17 DENA [id number] 03/23/25 09:22 03/23/25 09:17 Wound Center Nurse 1 #8 L Tenorio ulcer -Current Size (cm) - Length 0.1 -Current Size (cm) - Width 0.1 -Current Size (cm) - Depth 0.1 -Total Square Cm 0.01 -Exudate Amt Small -Exudate Type Serous -Slough/Fibrin No -Structure Exposed N/A -Texture (Mima-wound Skin Appearance) No Abnormality -Moisture (Mima-wound Skin Appearance) No Abnormality -Color (Mima-wound Skin Appearance) No Abnormality -Temperature (Mima-wound Skin No Abnormality Appearance) (Pt Warm) -Tenderness on Palpation (Mima-wound No Skin Appearance) -Ulcer Cleansing Rinsed/ Irrigated with Saline -Foul Odor after Cleansing No -Anesthetic Used 5% Lidocaine Gel Left Calf (cm) 28.5 Left Ankle (cm) 18.5 WC - Nurse 2 - General Ulcer CM Notes Start: 03/23/25 09:17 Freq: Status: Active Protocol: Activity Type Activity Date Activity User E-sign Co-sign Detail Recorded Client Recorded Date Recorded By Document 03/23/25 09:36 [email or web address] [id number] 03/23/25 09:40 JF 03/23/25 09:36 Wound Center Nurse 2 #8 L Tenorio ulcer -Time 09:38 -Correct Patient Yes -Correct Side, Site, Position Yes -Correct Procedure Yes -Procedure Performed Yes -Type of Procedure Debridement -Clinical Debridement Muscle / Fascia -Tissue Removed Muscle -Post Debridement (cm) - Length 0.7 -Post Debridement (cm) - Width 0.4 -Post Debridement (cm) - Depth 1.4 -Total Square (Post) (cm) 0.28 -Area of Debridement (cm) - Length 0.7 -Area of Debridement (cm) - Width 0.4 -Total Square (Area) (cm) 0.28 -Tunneling No -Undermining/Tunneling No -Circular Undermining No -Wound/Ulcer Outcome Not Healed -Ulcer Cleansing Rinsed/ Irrigated with Saline -Foul Odor after Cleansing No -Bioengineered Tissue No -Bleeding Controlled with Pressure -Treatment Response Procedure Tolerated Well -Offloading No -Debridement - Muscle / Fascia, 1st Yes 20sq cm Pain Scale: 0-10 Numeric Is Patient Pain Free? Yes - Nurse 3 - General Ulcer D/C NN Start: 03/23/25 09:17 Freq: Status: Active Protocol: Activity Type Activity Date Activity User E-sign Co-sign Detail Recorded Client Recorded Date Recorded By Document 03/23/25 09:50 [email or web address] [id number] 03/23/25 09:50 KW 03/23/25 09:50 Wound Care Center Nurse 3 #8 L Tenorio ulcer -Primary Dressing Applied Aquacel AG 4x4 -Primary Dressing Covered/Secured with Dry Gauze & Roll Gauze, Secured with Tape -Aquacel AG 4x4 1 LLE -Tubular Bandage Single Layer -Size of Tubigrip Used Size D -Size D ($) 1 Pain Scale: 0-10 Numeric Is Patient Pain Free? Yes WC - Visit Discharge Discharge Condition Stable Ambulatory Status Ambulatory Transportation Private Auto Medication Reconcilliation completed & No provided to patient/care provider Clinical Summary of Care Provided Yes Assessment/Plan Assessment/Plan (1) Non-pressure chronic ulcer of other part of left lower leg with fat layer exposed: CODE(S): L97.822 - Non-pressure chronic ulcer of other part of left lower leg with fat layer exposed PLAN: Patient was examined and evaluated. All findings were discussed with the patient. All questions were answered to the patient's satisfaction. Excisional debridement down to and including subcutaneous tissue, fascia and muscle with a number 3 mm dermal curette to the left anterior leg without incident. Predebridement measurement was a granuloma measuring 0.2 x 0.2 x 0.1 cm. Postdebridement measurement is 0.7 x 0.4 x 1.4 cm. The left full-thickness wound was flushed, wiped clean and patted dry. Culture was taken. Aquacel Ag ribbon was placed in the full-thickness wound followed by dry sterile dressing and compression wrap. Patient will perform daily dressing changes. Educated the patient to continue strict blood sugar control. Culture was taken of the wound and will be monitored closely and antibiotics will be prescribed as needed. Educated the patient on smoking sensation. Follow-up at the wound care center with Dr. Estevez in 1 week.
[2025-03-30 11:27] VITALS: BP 133/54; PULSE 82; RESP 16; TEMP 36.1
--- NOTE | 2025-03-30 14:14 | PCM.WC.PN ---
History of Present Illness Date of Service: 03/30/25 Chief Complaint: nonhealing ulcer left anterior leg. History of Wound: Patient has been getting home health care with packing of Madelaine to the full-thickness wound. Evidence of granuloma. Progress of Wound: Stable full-thickness wound left anterior leg Subjective Subjective Patient is a 64-year-old diabetic female presenting to wound care center today follow-up evaluation of left lower extremity anterior leg wound. Patient was recently seen in the emergency room for bruising on her hands and feet. Patient was prescribed antibiotics and has been taking them. Patient is on antibiotic called doxycycline has been exposed to the sun so most likely this could be a sun induced reaction due to being on the antibiotic. She is doing dressing changes with home health care. She continues to smoke. She denies trauma. Denies constitutional symptoms. No other pedal complaints at this time. Objective Data Objective Data Vital Signs: Vital Signs Temp Pulse Resp BP 96.9 F L 82 16 133/54 H 03/30/25 11:27 03/30/25 11:27 03/30/25 11:27 03/30/25 11:27 Lab / Micro Data Micro: Microbiology 03/23/25 14:09 Ulcer, Decubitus - Leg, Left Gram Stain - Final 03/23/25 14:09 Ulcer, Decubitus - Leg, Left Wound Culture - Final Meth. resistant Staph. aureus Corynebacterium striatum Pasteurella multocida 03/23/25 14:09 Ulcer, Decubitus - Leg, Left Anaerobic Culture - Final Anaerobic cocci Physical Exam Narrative Vascular: DP and PT pulses are palpable. CFT is brisk. Skin temperature great is warm to warm from proximal ankle to the distal digits to left lower extremity. Nonpitting edema appreciated to left lower extremity. No erythema. Neurological: Light touch intact. Patient does respond to painful stimuli. Dermatological: There is evidence of a tunneling wound to the left leg measuring 0.9 x 0.7 x 1.3 cm. Wound base is granular with sanguinous drainage. Excisional debridement down to and including subcutaneous tissue, fascia and muscle with a number 3 mm dermal curette to the left anterior leg without incident. Predebridement measurement was a granuloma measuring 0.2 x 0.2 x 0.1 cm. Postdebridement measurement is 0.9 x 0.7 x 1.3 cm. Musculoskeletal: No pain on palpation of full-thickness ulceration to left tibia. No pain with calf compression. Debridement Note Debridement Note Debridement Free Text: Excisional debridement down to and including subcutaneous tissue, fascia and muscle with a number 3 mm dermal curette to the left anterior leg without incident. Predebridement measurement was a granuloma measuring 0.2 x 0.2 x 0.1 cm. Postdebridement measurement is 0.9 x 0.7 x 1.3 cm. Post-Debridement Measurements and Additional Note: Post-Debridement Measurements/Treatment - Nurse 1 - General Ulcer Assessment Start: 03/23/25 09:17 Freq: Status: Active Protocol: WC.[employer] Activity Type Activity Date Activity User E-sign Co-sign Detail Recorded Client Recorded Date Recorded By Document 03/23/25 09:17 CP [id number] 03/23/25 09:22 CP Document 03/30/25 11:27 JF [id number] 03/30/25 11:31 JF 03/23/25 03/30/25 09:17 11:27 - Today's Visit Information Type of service Follow-up Visit Follow-up Visit (Physician/COLOR TELEVISION CONSOLE MONITOR (Physician/COLOR TELEVISION CONSOLE MONITOR ) ) Arrival Mode Ambulatory,Cane Ambulatory Patient Identification Verified (Name & Yes Yes ) Patient Requires Transmission-Based No No Precautions Safety Precautions NA Vital Signs Temperature (97.8 F-99.1 F) 98.2 F 96.9 F L Temperature Source Oral Temporal Pulse Rate (60-100) 77 82 Pulse Location Monitor Monitor Respiratory Rate (12-18) 16 16 Respiratory rate source Observation Observation Blood Pressure (90/60-120/80) 113/57 L 133/54 H Blood Pressure Mean (mm Hg) 75 80 Source Monitor Monitor Position Sitting Semi-Fowlers Blood Pressure Location Left Arm Left Arm History Since Last Visit- (Skip if this is Patient's initial visit) Have you changed medications since your No Yes last visit? Any new allergies or adverse reactions No No Had a fall/change in ADL's that may No No increase risk of falls Signs or symptoms of abuse and/or No No neglect since last visit Have you been in the hospital since your No No last visit? Has dressing in place as prescribed Yes Yes Has compression in place as prescribed Yes Yes Has offloadiing in place as prescribed N/A N/A Experienced any changes in pain level or No No management Left Footwear Regular Shoe Right Footwear Regular Shoe Pain Scale: 0-10 Numeric Is Patient Pain Free? Yes Yes WC - Nurse 1 - General Ulcer Measurement Start: 03/23/25 09:17 Freq: Status: Active Protocol: Activity Type Activity Date Activity User E-sign Co-sign Detail Recorded Client Recorded Date Recorded By Document 03/23/25 09:17 [id number] 03/23/25 09:22 Document 03/30/25 11:27 [id number] 03/30/25 11:31 03/23/25 03/30/25 09:17 11:27 Wound Center Nurse 1 #8 L Tenorio ulcer -Combined with other wound No -Current Size (cm) - Length 0.1 0.8 -Current Size (cm) - Width 0.1 0.7 -Current Size (cm) - Depth 0.1 1.0 -Total Square Cm 0.01 0.56 -Photo Taken Yes -Epithelialization None Present -Tunneling No -Undermining/Tunneling No -Circular Undermining No -Exudate Amt Small Medium -Exudate Type Serous Serosanguineous -Wound Margin Flat & Intact -Granulation Amt None Present (0 %) -Slough/Fibrin No Yes -Necrosis Amt Large (67-100%) -Necrotic Tissue Type Adherent Slough -Structure Exposed N/A N/A -Texture (Mima-wound Skin Appearance) No Abnormality Assessed -Moisture (Mima-wound Skin Appearance) No Abnormality Assessed,Dry/ Scaly -Color (Mima-wound Skin Appearance) No Abnormality Assessed -Temperature (Mima-wound Skin No Abnormality No Abnormality Appearance) (Pt Warm) (Pt Warm) -Tenderness on Palpation (Mima-wound No No Skin Appearance) -Ulcer Cleansing Rinsed/ Soap and Water Irrigated with Saline -Foul Odor after Cleansing No No -Anesthetic Used 5% Lidocaine 4% Lidocaine Gel Solution Lower Limb Edema Present No Left Calf (cm) 28.5 Left Ankle (cm) 18.5 WC - Nurse 2 - General Ulcer CM Notes Start: 03/23/25 09:17 Freq: Status: Active Protocol: Activity Type Activity Date Activity User E-sign Co-sign Detail Recorded Client Recorded Date Recorded By Document 03/23/25 09:36 [id number] 03/23/25 09:40 Document 03/30/25 12:09 [id number] 03/30/25 12:11 03/23/25 03/30/25 09:36 12:09 Wound Center Nurse 2 #8 L Tenorio ulcer -Time 09:38 12:09 -Correct Patient Yes Yes -Correct Side, Site, Position Yes Yes -Correct Procedure Yes Yes -Procedure Performed Yes Yes -Type of Procedure Debridement Debridement -Clinical Debridement Muscle / Fascia Muscle / Fascia -Tissue Removed Muscle Muscle -Post Debridement (cm) - Length 0.7 0.9 -Post Debridement (cm) - Width 0.4 0.7 -Post Debridement (cm) - Depth 1.4 1.3 -Total Square (Post) (cm) 0.28 0.63 -Area of Debridement (cm) - Length 0.7 0.9 -Area of Debridement (cm) - Width 0.4 0.7 -Total Square (Area) (cm) 0.28 0.63 -Tunneling No No -Undermining/Tunneling No No -Circular Undermining No No -Wound/Ulcer Outcome Not Healed Not Healed -Ulcer Cleansing Rinsed/ Rinsed/ Irrigated with Irrigated with Saline Saline -Foul Odor after Cleansing No No -Bioengineered Tissue No No -Bleeding Controlled with Pressure Pressure -Treatment Response Procedure Procedure Tolerated Well Tolerated Well -Offloading No No -Debridement - Muscle / Fascia, 1st Yes Yes 20sq cm Pain Scale: 0-10 Numeric Is Patient Pain Free? Yes Yes - Nurse 3 - General Ulcer D/C NN Start: 03/23/25 09:17 Freq: Status: Active Protocol: Activity Type Activity Date Activity User E-sign Co-sign Detail Recorded Client Recorded Date Recorded By Document 03/23/25 09:50 KW [id number] 03/23/25 09:50 KW Document 03/30/25 12:15 KW [id number] 03/30/25 12:15 KW 03/23/25 03/30/25 09:50 12:15 Wound Care Center Nurse 3 #8 L Tenorio ulcer -Primary Dressing Applied Aquacel AG 4x4 Hysept -Other Dressing dakins moistened gauze -Primary Dressing Covered/Secured with Dry Gauze & Dry Gauze & Roll Gauze, Roll Gauze, Secured with Secured with Tape Tape -Aquacel AG 4x4 1 -Hysept 1 LLE -Tubular Bandage Single Layer Single Layer -Size of Tubigrip Used Size D Size D -Size D ($) 1 1 Pain Scale: 0-10 Numeric Is Patient Pain Free? 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 All findings were discussed with the patient. All questions were answered to the patient's satisfaction. Excisional debridement down to and including subcutaneous tissue, fascia and muscle with a number 3 mm dermal curette to the left anterior leg without incident. Predebridement measurement was a granuloma measuring 0.2 x 0.2 x 0.1 cm. Postdebridement measurement is 0.9 x 0.7 x 1.3 cm. The full-thickness wounds were cleaned and patted dry. Dakin's soaked gauze was packed into the wound followed by dry sterile dressing light compression wrap. Patient will continue daily dressing changes until follow-up. Review of the patient's culture and sensitivity so growth of MRSA and Pasteurella, corynebacterium and anaerobic species. The patient was placed on doxycycline and Flagyl, by the emergency room physician. I educated patient today on the sinus pressure when taken doxycycline she is understanding of. Educated patient continue strict blood sugar control and to stop smoking. Follow-up at the wound care center with Dr. Estevez in 1 week.
[2025-04-06 09:21] VITALS: BP 130/73; PULSE 78; RESP 18; TEMP 36.7
--- NOTE | 2025-04-06 12:41 | PN.PCM_ITS ---
History of Present Illness Date of Service: 04/06/25 Chief Complaint: nonhealing ulcer left anterior leg. History of Wound: Patient has been getting home health care with packing of Madelaine to the full-thickness wound. Evidence of granuloma. Progress of Wound: Stable full-thickness wound left anterior leg Subjective Subjective Patient is a 64-year-old diabetic female presenting to wound care center today for follow-up evaluation of left anterior left leg full-thickness wound. She has been compliant with dressing changes with Dakin soaked gauze solution and gauze packing. Patient's blood sugars well-controlled. She does continue to smoke at least a half a pack to a full pack per day. Denies trauma. Is taking oral antibiotics as prescribed. Denies constitutional symptoms. No other pedal complaints at this time. Objective Data Objective Data Vital Signs: Vital Signs Temp Pulse Resp BP O2 Del Method 98.1 F 78 18 130/73 H Room Air 04/06/25 09:21 04/06/25 09:21 04/06/25 09:21 04/06/25 09:21 04/06/25 09:21 Oxygen Delivery Method Room Air Lab / Micro Data Micro: Microbiology 03/23/25 14:09 Ulcer, Decubitus - Leg, Left Gram Stain - Final 03/23/25 14:09 Ulcer, Decubitus - Leg, Left Wound Culture - Final Meth. resistant Staph. aureus Corynebacterium striatum Pasteurella multocida 03/23/25 14:09 Ulcer, Decubitus - Leg, Left Anaerobic Culture - Final Anaerobic cocci Physical Exam Narrative Vascular: DP and PT pulses are palpable. CFT is brisk. Skin temperature great is warm to warm from proximal ankle to the distal digits to left lower extremity. Nonpitting edema appreciated to left lower extremity. No erythema. Neurological: Light touch intact. Patient does respond to painful stimuli. Dermatological: Full-thickness wound to left anterior leg measuring 0.8 x 0.4 x 1.3 cm. Wound base is granular in nature. Negative probe to bone. Musculoskeletal: No pain on palpation of full-thickness ulceration to left tibia. No pain with calf compression. Debridement Note Debridement Note Post-Debridement Measurements and Additional Note: Post-Debridement Measurements/Treatment YVETTE - Nurse 1 - General Ulcer Assessment Start: 03/23/25 09:17 Freq: Status: Active Protocol: WC.LOWEXT Activity Type Activity Date Activity User E-sign Co-sign Detail Recorded Client Recorded Date Recorded By Document 03/23/25 09:17 CP [id number] 03/23/25 09:22 CP Document 03/30/25 11:27 JF [id number] 03/30/25 11:31 JF Document 04/06/25 09:21 MT [id number] 04/06/25 09:22 MT 03/23/25 03/30/25 04/06/25 09:17 11:27 09:21 - Today's Visit Information Type of service Follow-up Visit Follow-up Visit Follow-up Visit (Physician/STRUCTURAL ENGINEERING DRAFTING OFFICER (Physician/STRUCTURAL ENGINEERING DRAFTING OFFICER (Physician/STRUCTURAL ENGINEERING DRAFTING OFFICER ) ) ) Arrival Mode Ambulatory,Cane Ambulatory Ambulatory Patient Identification Verified (Name & Yes Yes Yes ) Patient Requires Transmission-Based No No Precautions Safety Precautions NA Vital Signs Temperature (97.8 F-99.1 F) 98.2 F 96.9 F L 98.1 F Temperature Source Oral Temporal Temporal Pulse Rate (60-100) 77 82 78 Pulse Location Monitor Monitor Monitor Respiratory Rate (12-18) 16 16 18 Respiratory rate source Observation Observation Observation Oxygen Delivery Method Room Air Blood Pressure (90/60-120/80) 113/57 L 133/54 H 130/73 H Blood Pressure Mean (mm Hg) 75 80 92 Source Monitor Monitor Monitor Position Sitting Semi-Fowlers Semi-Fowlers Blood Pressure Location Left Arm Left Arm Left Arm History Since Last Visit- (Skip if this is Patient's initial visit) Have you changed medications since your No Yes No last visit? Any new allergies or adverse reactions No No No Had a fall/change in ADL's that may No No No increase risk of falls Signs or symptoms of abuse and/or No No No neglect since last visit Have you been in the hospital since your No No No last visit? Has dressing in place as prescribed Yes Yes Yes Has compression in place as prescribed Yes Yes Yes Has offloadiing in place as prescribed N/A N/A N/A Experienced any changes in pain level or No No No management Left Footwear Regular Shoe Regular Shoe Right Footwear Regular Shoe Regular Shoe Pain Scale: 0-10 Numeric Is Patient Pain Free? Yes Yes Yes - Nurse 1 - General Ulcer Measurement Start: 03/23/25 09:17 Freq: Status: Active Protocol: Activity Type Activity Date Activity User E-sign Co-sign Detail Recorded Client Recorded Date Recorded By Document 03/23/25 09:17 CP [id number] 03/23/25 09:22 CP Document 03/30/25 11:27 [id number] 03/30/25 11:31 Document 04/06/25 09:21 [place] [id number] 04/06/25 09:22 [place] 03/23/25 03/30/25 04/06/25 09:17 11:27 09:21 Wound Center Nurse 1 #8 L Tenorio ulcer -Combined with other wound No -Current Size (cm) - Length 0.1 0.8 0.6 -Current Size (cm) - Width 0.1 0.7 0.5 -Current Size (cm) - Depth 0.1 1.0 0.8 -Total Square Cm 0.01 0.56 0.30 -Date of Last Picture (Recall this 04/06/25 field) -Photo Taken Yes -Epithelialization None Present -Tunneling No -Undermining/Tunneling No -Circular Undermining No -Exudate Amt Small Medium Medium -Exudate Type Serous Serosanguineous Serosanguineous -Wound Margin Flat & Intact Thickened -Granulation Amt None Present (0 Medium (34-66%) %) -Granulation Quality Red -Slough/Fibrin No Yes -Necrosis Amt Large (67-100%) Medium (34-66%) -Necrotic Tissue Type Adherent Slough Adherent Slough -Structure Exposed N/A N/A -Texture (Mima-wound Skin Appearance) No Abnormality Assessed Assessed -Moisture (Mima-wound Skin Appearance) No Abnormality Assessed,Dry/ Assessed Scaly -Color (Mima-wound Skin Appearance) No Abnormality Assessed Assessed -Temperature (Mima-wound Skin No Abnormality No Abnormality No Abnormality Appearance) (Pt Warm) (Pt Warm) (Pt Warm) -Tenderness on Palpation (Mima-wound No No No Skin Appearance) -Ulcer Cleansing Rinsed/ Soap and Water Soap and Water Irrigated with Saline -Foul Odor after Cleansing No No No -Anesthetic Used 5% Lidocaine 4% Lidocaine 5% Lidocaine Gel Solution Gel Lower Limb Edema Present No Left Calf (cm) 28.5 Left Ankle (cm) 18.5 WC - Nurse 2 - General Ulcer CM Notes Start: 03/23/25 09:17 Freq: Status: Active Protocol: Activity Type Activity Date Activity User E-sign Co-sign Detail Recorded Client Recorded Date Recorded By Document 03/23/25 09:36 [id number] 03/23/25 09:40 Document 03/30/25 12:09 [id number] 03/30/25 12:11 Document 04/06/25 09:28 [id number] 04/06/25 09:29 JF 03/23/25 03/30/25 04/06/25 09:36 12:09 09:28 Wound Center Nurse 2 #8 L Tenorio ulcer -Time 09:38 12:09 -Correct Patient Yes Yes Yes -Correct Side, Site, Position Yes Yes No -Correct Procedure Yes Yes No -Procedure Performed Yes Yes No -Type of Procedure Debridement Debridement -Clinical Debridement Muscle / Fascia Muscle / Fascia -Tissue Removed Muscle Muscle -Post Debridement (cm) - Length 0.7 0.9 0.8 -Post Debridement (cm) - Width 0.4 0.7 0.4 -Post Debridement (cm) - Depth 1.4 1.3 1.3 -Total Square (Post) (cm) 0.28 0.63 0.32 -Area of Debridement (cm) - Length 0.7 0.9 0.8 -Area of Debridement (cm) - Width 0.4 0.7 0.4 -Total Square (Area) (cm) 0.28 0.63 0.32 -Tunneling No No -Undermining/Tunneling No No -Circular Undermining No No -Wound/Ulcer Outcome Not Healed Not Healed Not Healed -Ulcer Cleansing Rinsed/ Rinsed/ Irrigated with Irrigated with Saline Saline -Foul Odor after Cleansing No No -Bioengineered Tissue No No -Bleeding Controlled with Pressure Pressure -Treatment Response Procedure Procedure Tolerated Well Tolerated Well -Offloading No No -Debridement - Muscle / Fascia, 1st Yes Yes No 20sq cm Pain Scale: 0-10 Numeric Is Patient Pain Free? Yes Yes Yes WC - Nurse 3 - General Ulcer D/C NN Start: 03/23/25 09:17 Freq: Status: Active Protocol: Activity Type Activity Date Activity User E-sign Co-sign Detail Recorded Client Recorded Date Recorded By Document 03/23/25 09:50 KW [id number] 03/23/25 09:50 KW Document 03/30/25 12:15 KW [id number] 07/23/25 12:15 KW Document 04/06/25 09:40 KW [id number] 04/06/25 09:41 KW 03/23/25 03/30/25 04/06/25 09:50 12:15 09:40 Wound Care Center Nurse 3 #8 L Tenorio ulcer -Primary Dressing Applied Aquacel AG 4x4 Hysept -Other Dressing dakins DAKINS moistened gauze -Primary Dressing Covered/Secured with Dry Gauze & Dry Gauze & Dry Gauze,Dry Roll Gauze, Roll Gauze, Gauze & Roll Secured with Secured with Gauze,Secured Tape Tape with Tape -Aquacel AG 4x4 1 -Hysept 1 LLE -Tubular Bandage Single Layer Single Layer Single Layer -Size of Tubigrip Used Size D Size D Size D -Size D ($) 1 1 1 Pain Scale: 0-10 Numeric Is Patient Pain Free? 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 All findings were discussed with the patient. All questions were answered to the patient's satisfaction. Left lower extremity is granular nature with no concern for deep infection at this time. The area was dressed with Dakin soaked gauze and packing followed by dry sterile dressing and compression wrap. Patient will continue daily dressing changes. No debridement was done at this time. Educated the patient the need to stop smoking while she is healing her wound. Patient is showing evidence of delayed healing secondary to smoking which she is understanding of. Patient will make attempts to stop smoking at this time. She will continue antibiotics as prescribed. Follow-up at the wound care center with Dr. Estevez in 1 week.
--- NOTE | 2025-04-07 09:56 | WC ---
PHOTO-LEFT RODNEY 04/06/25
== END 2025-04-07 23:59 | disposition home or self-care (01) ==
LOC: WC 08:45
PROVIDERS: Referring Provider Nurse Practitioner Family; Visit Provider Podiatrist Foot & Ankle Surgery
DX: E11.622 Type 2 diabetes mellitus with other skin ulcer (principal); L97.825 Non-pressure chronic ulcer of other part of left lower leg with muscle involvement without evidence of necrosis; F17.210 Nicotine dependence, cigarettes, uncomplicated
CPT/HCPCS: 11043; 87070; 87075; 87077; 87186; 87205; 99214; G0463

== ENCOUNTER 2025-04-27 09:45 | Outpatient (RCR) | payer MEDICAID, SELFPAY ==
[2025-04-13 09:29] VITALS: BP 144/67; PULSE 84; RESP 16; TEMP 35.8
--- NOTE | 2025-04-13 10:30 | PN.PCM_ITS ---
History of Present Illness Date of Service: 04/13/25 Chief Complaint: nonhealing ulcer left anterior leg. History of Wound: Patient has been getting home health care with packing of Madelaine to the full-thickness wound. Evidence of granuloma. Progress of Wound: Stable full-thickness wound left anterior leg Subjective Subjective Patient is a 64-year-old diabetic female presenting to wound care center today for follow-up evaluation of full-thickness wound to left anterior leg. Patient has been compliant with dressing changes. She has completed all her antibiotics. She is still smoking the same approximately 15 to 20 cigarettes/day. She denies any drainage to the area. She denies any malodor. Denies trauma. Denies constitutional symptoms. No other pedal complaints at this time. Objective Data Objective Data Vital Signs: Vital Signs Temp Pulse Resp BP 96.5 F L 84 16 144/67 H 04/13/25 09:29 04/13/25 09:29 04/13/25 09:29 04/13/25 09:29 Lab / Micro Data Micro: Microbiology 03/23/25 14:09 Ulcer, Decubitus - Leg, Left Gram Stain - Final 03/23/25 14:09 Ulcer, Decubitus - Leg, Left Wound Culture - Final Meth. resistant Staph. aureus Corynebacterium striatum Pasteurella multocida 03/23/25 14:09 Ulcer, Decubitus - Leg, Left Anaerobic Culture - Final Anaerobic cocci Physical Exam Narrative Vascular: DP and PT pulses are palpable. CFT is brisk. Skin temperature great is warm to warm from proximal ankle to the distal digits to left lower extremity. Nonpitting edema appreciated to left lower extremity. No erythema. Neurological: Light touch intact. Patient does respond to painful stimuli. Dermatological: Full-thickness wound to left anterior leg measuring 0.5 x 0.4 x 1.3 cm. Wound base is granular in nature. Negative probe to bone. Excisional debridement down to including subcutaneous tissue fascia and muscle with a number 3 mm dermal curette to left anterior full-thickness wound done without incident. Predebridement measurement was 0.4 x 0.3 x 1.0 cm. Postdebridement measurement is 0.5 x 0.4 x 1.3 cm. Musculoskeletal: No pain on palpation of full-thickness ulceration to left tibia. No pain with calf compression. Debridement Note Debridement Note Debridement Free Text: Excisional debridement down to including subcutaneous tissue fascia and muscle with a number 3 mm dermal curette to left anterior full-thickness wound done without incident. Predebridement measurement was 0.4 x 0.3 x 1.0 cm. Postdebridement measurement is 0.5 x 0.4 x 1.3 cm. Post-Debridement Measurements and Additional Note: Post-Debridement Measurements/Treatment WC - Nurse 1 - General Ulcer Assessment Start: 04/13/25 09:29 Freq: Status: Active Protocol: ELENA Activity Type Activity Date Activity User E-sign Co-sign Detail Recorded Client Recorded Date Recorded By Document 04/13/25 09:29 ML [id number] 04/13/25 09:32 ML 04/13/25 09:29 WC - Today's Visit Information Type of service Follow-up Visit (Physician/OPENSTACK CLOUD CONSULTING ARCHITECT ) Arrival Mode Ambulatory Transfer Assistance None Patient Identification Verified (Name & Yes ) Patient Requires Transmission-Based No Precautions Vital Signs Temperature (97.8 F-99.1 F) 96.5 F L Temperature Source Temporal Pulse Rate (60-100) 84 Pulse Location Monitor Respiratory Rate (12-18) 16 Respiratory rate source Observation Blood Pressure (90/60-120/80) 144/67 H Blood Pressure Mean (mm Hg) 92 Source Monitor Position Sitting Blood Pressure Location Left Arm History Since Last Visit- (Skip if this is Patient's initial visit) Have you changed medications since your No last visit? Any new allergies or adverse reactions No Had a fall/change in ADL's that may No increase risk of falls Signs or symptoms of abuse and/or No neglect since last visit Have you been in the hospital since your No last visit? Has dressing in place as prescribed Yes Has compression in place as prescribed Yes Has offloadiing in place as prescribed No Experienced any changes in pain level or No management Pain Scale: 0-10 Numeric Is Patient Pain Free? Yes - Nurse 1 - General Ulcer Measurement Start: 04/13/25 09:29 Freq: Status: Active Protocol: Activity Type Activity Date Activity User E-sign Co-sign Detail Recorded Client Recorded Date Recorded By Document 04/13/25 09:29 ML [id number] 04/13/25 09:32 ML 04/13/25 09:29 Wound Center Nurse 1 #8 L Tenorio ulcer -Current Size (cm) - Length 0.7 -Current Size (cm) - Width 0.5 -Current Size (cm) - Depth 0.8 -Total Square Cm 0.35 -Tunneling Yes -Tunneling Position (O'clock) 1 -Tunneling Distance (cm) 1.4 -Exudate Amt Small -Exudate Type Serosanguineous -Wound Margin Distinct, Outline Attached -Granulation Amt Medium (34-66%) -Slough/Fibrin Yes -Necrosis Amt Small (1-33%) -Necrotic Tissue Type Adherent Slough -Texture (Mima-wound Skin Appearance) Assessed -Moisture (Mima-wound Skin Appearance) Assessed -Color (Mima-wound Skin Appearance) Assessed -Temperature (Mima-wound Skin No Abnormality Appearance) (Pt Warm) -Tenderness on Palpation (Mima-wound No Skin Appearance) -Ulcer Cleansing Soap and Water -Foul Odor after Cleansing No -Anesthetic Used 5% Lidocaine Gel Left Calf (cm) 27 Left Ankle (cm) 20 WC - Nurse 2 - General Ulcer CM Notes Start: 04/13/25 09:29 Freq: Status: Active Protocol: Activity Type Activity Date Activity User E-sign Co-sign Detail Recorded Client Recorded Date Recorded By Document 04/13/25 09:35 [email or web address] [id number] 04/13/25 09:38 TENZIN 04/13/25 09:35 Wound Center Nurse 2 #8 L Tenorio ulcer -Time 09:37 -Correct Patient Yes -Correct Side, Site, Position Yes -Correct Procedure Yes -Procedure Performed Yes -Type of Procedure Debridement -Clinical Debridement Muscle / Fascia -Tissue Removed Muscle -Post Debridement (cm) - Length 0.5 -Post Debridement (cm) - Width 0.4 -Post Debridement (cm) - Depth 1.3 -Total Square (Post) (cm) 0.20 -Area of Debridement (cm) - Length 0.5 -Area of Debridement (cm) - Width 0.4 -Total Square (Area) (cm) 0.20 -Tunneling No -Undermining/Tunneling No -Circular Undermining No -Wound/Ulcer Outcome Not Healed -Ulcer Cleansing Rinsed/ Irrigated with Saline -Foul Odor after Cleansing No -Bioengineered Tissue No -Bleeding Controlled with Pressure -Treatment Response Procedure Tolerated Well -Offloading No -Debridement - Muscle / Fascia, 1st Yes 20sq cm Pain Scale: 0-10 Numeric Is Patient Pain Free? Yes WC - Nurse 3 - General Ulcer D/C NN Start: 04/13/25 09:29 Freq: Status: Active Protocol: Activity Type Activity Date Activity User E-sign Co-sign Detail Recorded Client Recorded Date Recorded By Document 04/13/25 09:56 [place] [id number] 04/13/25 09:57 [place] 04/13/25 09:56 Wound Care Center Nurse 3 #8 L Tenorio ulcer -Ulcer Cleansing Soap and Water -Primary Dressing Applied Promogran Madelaine Matter -Primary Dressing Covered/Secured with Dry Gauze,Dry Gauze & Roll Gauze -Promogran Madelaine Matter 2 BLE -Tubular Bandage Single Layer -Size of Tubigrip Used Size D -Size D ($) 1 Pain Scale: 0-10 Numeric Is Patient Pain Free? 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 All findings were discussed with the patient. All questions were answered to the patient's satisfaction. Excisional debridement down to including subcutaneous tissue fascia and muscle with a number 3 mm dermal curette to left anterior full-thickness wound done without incident. Predebridement measurement was 0.4 x 0.3 x 1.0 cm. Postdebridement measurement is 0.5 x 0.4 x 1.3 cm. The area was wiped clean and patted dry. No concern for infection. Moist Madelaine followed by dry sterile dressing compression wrap were donned. Patient will change to Madelaine every 4 days as discussed through home health care. Educated the patient the need to stop smoking while she is healing her wound. Follow-up at the wound care center with Dr. Estevez in 1 week.
--- NOTE | 2025-04-14 09:43 | WC ---
PHOTO-LEFT RODNEY 04/13/25
[2025-04-27 09:29] VITALS: BP 124/81; PULSE 79; RESP 18; TEMP 36.1
--- NOTE | 2025-04-27 12:42 | PCM.WC.PN ---
History of Present Illness Date of Service: 04/27/25 Chief Complaint: nonhealing ulcer left anterior leg. History of Wound: Patient has been getting home health care with packing of Madelaine to the full-thickness wound. Evidence of granuloma. Progress of Wound: Stable full-thickness wound left anterior leg Subjective Subjective Patient is a 64-year-old diabetic female presenting to wound care center today follow-up evaluation of full-thickness wound to the left anterior leg. Patient has been compliant with dressing changes with help through on home health care. She has completed all her antibiotics. She admits the wound is improving. She has slowed down her smoking. She denies trauma. Denies constitutional symptoms. No other pedal complaints at this time. Objective Data Objective Data Vital Signs: Vital Signs Temp Pulse Resp BP O2 Del Method 97.0 F L 79 18 124/81 H Room Air 04/27/25 09:29 04/27/25 09:29 04/27/25 09:29 04/27/25 09:29 04/27/25 09:29 Oxygen Delivery Method Room Air Lab / Micro Data Micro: Microbiology 03/23/25 14:09 Ulcer, Decubitus - Leg, Left Gram Stain - Final 03/23/25 14:09 Ulcer, Decubitus - Leg, Left Wound Culture - Final Meth. resistant Staph. aureus Corynebacterium striatum Pasteurella multocida 03/23/25 14:09 Ulcer, Decubitus - Leg, Left Anaerobic Culture - Final Anaerobic cocci Physical Exam Narrative Vascular: DP and PT pulses are palpable. CFT is brisk. Skin temperature great is warm to warm from proximal ankle to the distal digits to left lower extremity. Nonpitting edema appreciated to left lower extremity. No erythema. Neurological: Light touch intact. Patient does respond to painful stimuli. Dermatological: Full-thickness wound to left anterior leg measuring 0.5 x 0.3 x 0.9 cm Excisional debridement down to including subcutaneous tissue fascia and muscle with a number 3 mm dermal curette to left anterior full-thickness wound done without incident. Predebridement measurement was 0.3 x 0.3 x 0.6 cm. Postdebridement measurement is 0.5 x 0.3 x 0.9 cm. Musculoskeletal: No pain on palpation of full-thickness ulceration to left tibia. No pain with calf compression. Debridement Note Debridement Note Debridement Free Text: Excisional debridement down to including subcutaneous tissue fascia and muscle with a number 3 mm dermal curette to left anterior full-thickness wound done without incident. Predebridement measurement was 0.3 x 0.3 x 0.6 cm. Postdebridement measurement is 0.5 x 0.3 x 0.9 cm. 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 ) ) Arrival Mode Ambulatory Ambulatory Transfer Assistance None Patient Identification Verified (Name & Yes Yes ) Patient Requires Transmission-Based No Precautions Vital Signs Temperature (97.8 F-99.1 F) 96.5 F L 97.0 F L Temperature Source Temporal Temporal Pulse Rate (60-100) 84 79 Pulse Location Monitor Monitor Respiratory Rate (12-18) 16 18 Respiratory rate source Observation Observation Oxygen Delivery Method Room Air Blood Pressure (90/60-120/80) 144/67 H 124/81 H Blood Pressure Mean (mm Hg) 92 95 Source Monitor Monitor Position Sitting Semi-Fowlers Blood Pressure Location Left Arm Left Arm History Since Last Visit- (Skip if this is Patient's initial visit) Have you changed medications since your No No last visit? Any new allergies or adverse reactions No No Had a fall/change in ADL's that may No No increase risk of falls Signs or symptoms of abuse and/or No No neglect since last visit Have you been in the hospital since your No No last visit? Has dressing in place as prescribed Yes Yes Has compression in place as prescribed Yes Yes Has offloadiing in place as prescribed No N/A Experienced any changes in pain level or No No management Left Footwear Regular Shoe Right Footwear Regular Shoe Pain Scale: 0-10 Numeric Is Patient Pain Free? Yes Yes - Nurse 1 - General Ulcer Measurement Start: 04/13/25 09:29 Freq: Status: Active Protocol: Activity Type Activity Date Activity User E-sign Co-sign Detail Recorded Client Recorded Date Recorded By Document 04/13/25 09:29 ML [id number] 04/13/25 09:32 ML Document 04/27/25 09:29 KW [id number] 04/27/25 09:35 KW 04/13/25 04/27/25 09:29 09:29 Wound Center Nurse 1 #8 L Tenorio ulcer -Current Size (cm) - Length 0.7 0.1 -Current Size (cm) - Width 0.5 0.1 -Current Size (cm) - Depth 0.8 0.1 -Total Square Cm 0.35 0.01 -Date of Last Picture (Recall this 04/27/25 field) -Tunneling Yes -Tunneling Position (O'clock) 1 -Tunneling Distance (cm) 1.4 -Exudate Amt Small -Exudate Type Serosanguineous -Wound Margin Distinct, Outline Attached -Granulation Amt Medium (34-66%) Small (1-33%) -Granulation Quality Red -Slough/Fibrin Yes -Necrosis Amt Small (1-33%) -Necrotic Tissue Type Adherent Slough -Texture (Mima-wound Skin Appearance) Assessed Assessed -Moisture (Mima-wound Skin Appearance) Assessed Assessed -Color (Mima-wound Skin Appearance) Assessed Assessed -Temperature (Mima-wound Skin No Abnormality No Abnormality Appearance) (Pt Warm) (Pt Warm) -Tenderness on Palpation (Mima-wound No No Skin Appearance) -Ulcer Cleansing Soap and Water Rinsed/ Irrigated with Saline -Foul Odor after Cleansing No No -Anesthetic Used 5% Lidocaine 5% Lidocaine Gel Gel Left Calf (cm) 27 Left Ankle (cm) 20 - Nurse 2 - General Ulcer CM Notes Start: 04/13/25 09:29 Freq: Status: Active Protocol: Activity Type Activity Date Activity User E-sign Co-sign Detail Recorded Client Recorded Date Recorded By Document 04/13/25 09:35 JF [id number] 04/13/25 09:38 JF Document 04/27/25 09:43 DS [id number] 04/27/25 09:44 DS 04/13/25 04/27/25 09:35 09:43 Wound Center Nurse 2 #8 L Tenorio ulcer -Time 09:37 09:43 -Correct Patient Yes Yes -Correct Side, Site, Position Yes Yes -Correct Procedure Yes Yes -Procedure Performed Yes Yes -Type of Procedure Debridement Debridement -Clinical Debridement Muscle / Fascia Muscle / Fascia -Tissue Removed Muscle Muscle -Post Debridement (cm) - Length 0.5 0.5 -Post Debridement (cm) - Width 0.4 0.3 -Post Debridement (cm) - Depth 1.3 0.9 -Total Square (Post) (cm) 0.20 0.15 -Area of Debridement (cm) - Length 0.5 0.5 -Area of Debridement (cm) - Width 0.4 0.3 -Total Square (Area) (cm) 0.20 0.15 -Tunneling No No -Undermining/Tunneling No No -Circular Undermining No No -Wound/Ulcer Outcome Not Healed Not Healed -Ulcer Cleansing Rinsed/ Rinsed/ Irrigated with Irrigated with Saline Saline -Foul Odor after Cleansing No No -Bioengineered Tissue No No -Bleeding Controlled with Pressure Pressure -Treatment Response Procedure Procedure Tolerated Well Tolerated Well -Offloading No -Debridement - Muscle / Fascia, 1st Yes Yes 20sq cm Pain Scale: 0-10 Numeric Is Patient Pain Free? Yes Yes - Nurse 3 - General Ulcer D/C NN Start: 04/13/25 09:29 Freq: Status: Active Protocol: Activity Type Activity Date Activity User E-sign Co-sign Detail Recorded Client Recorded Date Recorded By Document 04/13/25 09:56 TX [id number] 04/13/25 09:57 TX Document 04/27/25 10:19 [id number] 04/27/25 10:20 04/13/25 04/27/25 09:56 10:19 Wound Care Center Nurse 3 #8 L Tenorio ulcer -Ulcer Cleansing Soap and Water -Primary Dressing Applied Promogran Promogran Madelaine Matter Madelaine Matter -Primary Dressing Covered/Secured with Dry Gauze,Dry Dry Gauze & Gauze & Roll Roll Gauze, Gauze Secured with Tape -Promogran Madelaine Matter 2 1 BLE -Tubular Bandage Single Layer Single Layer -Size of Tubigrip Used Size D Size D -Size D ($) 1 1 Pain Scale: 0-10 Numeric Is Patient Pain Free? 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 All findings were discussed with the patient. All questions were answered to the patient's satisfaction. Excisional debridement down to including subcutaneous tissue fascia and muscle with a number 3 mm dermal curette to left anterior full-thickness wound done without incident. Predebridement measurement was 0.3 x 0.3 x 0.6 cm. Postdebridement measurement is 0.5 x 0.3 x 0.9 cm. The area was wiped clean and patted dry. Moist Madelaine followed by dry sterile dressing compression wrap were donned. Patient will change to Madelaine every 3 days as discussed through home health care. Educated the patient the need to stop smoking while she is healing her wound. Follow-up at the wound care center with Dr. Estevez in 2 week.
--- NOTE | 2025-04-27 14:17 | WC ---
PHOTO-LEFT RODNEY 04/27/25
== END 2025-05-08 23:59 | disposition home or self-care (01) ==
LOC: WC 09:45
PROVIDERS: Referring Provider Nurse Practitioner Family; Visit Provider Podiatrist Foot & Ankle Surgery
DX: L97.825 Non-pressure chronic ulcer of other part of left lower leg with muscle involvement without evidence of necrosis (principal); F17.210 Nicotine dependence, cigarettes, uncomplicated
CPT/HCPCS: 11043

== ENCOUNTER 2025-05-25 09:30 | Outpatient (RCR) | payer MEDICAID, SELFPAY ==
[2025-05-11 09:21] VITALS: BP 121/61; PULSE 83; RESP 18; TEMP 36
--- NOTE | 2025-05-11 12:22 | PN.PCM_ITS ---
History of Present Illness Date of Service: 05/11/25 Chief Complaint: nonhealing ulcer left anterior leg. History of Wound: Patient has been getting home health care with packing of Madelaine to the full-thickness wound. Evidence of granuloma. Progress of Wound: Slow healing full-thickness wound to anterior left leg. Subjective Subjective Patient is a 64-year-old diabetic female presenting to the wound care center today for follow-up evaluation of full-thickness wound to anterior left leg. Patient is getting dressing changes every other day by home health care. She admits improvement to the wound. She still continues to smoke but has increased her protein intake. She denies any pain to the left lower extremity. She denies trauma. Denies constitutional symptoms. No other pedal complaints at this time Objective Data Objective Data Vital Signs: Vital Signs Temp Pulse Resp BP O2 Del Method 96.8 F L 83 18 121/61 H Room Air 05/11/25 09:21 05/11/25 09:21 05/11/25 09:21 05/11/25 09:21 05/11/25 09:21 Oxygen Delivery Method Room Air Lab / Micro Data Micro: Microbiology 03/23/25 14:09 Ulcer, Decubitus - Leg, Left Gram Stain - Final 03/23/25 14:09 Ulcer, Decubitus - Leg, Left Wound Culture - Final Meth. resistant Staph. aureus Corynebacterium striatum Pasteurella multocida 03/23/25 14:09 Ulcer, Decubitus - Leg, Left Anaerobic Culture - Final Anaerobic cocci Physical Exam Narrative Vascular: DP and PT pulses are palpable. CFT is brisk. Skin temperature great is warm to warm from proximal ankle to the distal digits to left lower extremity. Nonpitting edema appreciated to left lower extremity. No erythema. Neurological: Light touch intact. Patient does respond to painful stimuli. Dermatological: Full-thickness wound to left anterior leg measuring 0.4 x 0.3 x 1.0 cm. Excisional debridement down to including subcutaneous tissue fascia and muscle with a number 3 mm dermal curette to left anterior full-thickness wound done without incident. Predebridement measurement was 0.3 x 0.3 x 0.2 cm. P ostdebridement measurement is 0.4 x 0.3 x 1.0 cm. Musculoskeletal: No pain on palpation of full-thickness ulceration to left tibia. No pain with calf compression. Debridement Note Debridement Note Debridement Free Text: Excisional debridement down to including subcutaneous tissue fascia and muscle with a number 3 mm dermal curette to left anterior full-thickness wound done without incident. Predebridement measurement was 0.3 x 0.3 x 0.2 cm. Postdebridement measurement is 0.4 x 0.3 x 1.0 cm. 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 Any new allergies or adverse reactions No Had a fall/change in ADL's that may No increase risk of falls Signs or symptoms of abuse and/or No neglect since last visit Have you been in the hospital since your No last visit? Has dressing in place as prescribed Yes Has compression in place as prescribed Yes Has offloadiing in place as prescribed N/A Experienced any changes in pain level or No management Left Footwear Regular Shoe Right Footwear Regular Shoe Pain Scale: 0-10 Numeric Is Patient Pain Free? Yes - Nurse 1 - General Ulcer Measurement Start: 05/11/25 09:17 Freq: Status: Active Protocol: Activity Type Activity Date Activity User E-sign Co-sign Detail Recorded Client Recorded Date Recorded By Document 05/11/25 09:21 KW [id number] 05/11/25 09:25 KW 05/11/25 09:21 Wound Center Nurse 1 #8 L Tenorio ulcer -Current Size (cm) - Length 0.3 -Current Size (cm) - Width 0.2 -Current Size (cm) - Depth 0.3 -Total Square Cm 0.06 -Date of Last Picture (Recall this 05/11/25 field) -Epithelialization Large 67-100% -Exudate Amt Medium -Exudate Type Serosanguineous -Wound Margin Thickened -Granulation Amt Large (67-100%) -Granulation Quality Red -Texture (Mima-wound Skin Appearance) Assessed -Moisture (Mima-wound Skin Appearance) Assessed -Color (Mima-wound Skin Appearance) Assessed -Temperature (Mima-wound Skin No Abnormality Appearance) (Pt Warm) -Tenderness on Palpation (Mima-wound No Skin Appearance) -Ulcer Cleansing Rinsed/ Irrigated with Saline -Foul Odor after Cleansing No -Anesthetic Used 5% Lidocaine Gel WC - Nurse 2 - General Ulcer CM Notes Start: 05/11/25 09:17 Freq: Status: Active Protocol: Activity Type Activity Date Activity User E-sign Co-sign Detail Recorded Client Recorded Date Recorded By Document 05/11/25 09:53 [id number] 05/11/25 09:55 05/11/25 09:53 Wound Center Nurse 2 -Time 09:53 -Correct Patient Yes -Correct Side, Site, Position Yes -Correct Procedure Yes -Procedure Performed Yes -Type of Procedure Debridement -Clinical Debridement Muscle / Fascia -Tissue Removed Muscle -Post Debridement (cm) - Length 0.4 -Post Debridement (cm) - Width 0.3 -Post Debridement (cm) - Depth 1.0 -Total Square (Post) (cm) 0.12 -Area of Debridement (cm) - Length 0.4 -Area of Debridement (cm) - Width 0.3 -Total Square (Area) (cm) 0.12 -Tunneling No -Undermining/Tunneling No -Circular Undermining No -Wound/Ulcer Outcome Not Healed -Ulcer Cleansing Rinsed/ Irrigated with Saline -Foul Odor after Cleansing No -Bleeding Controlled with Pressure -Treatment Response Procedure Tolerated Well -Offloading No -Debridement - Muscle / Fascia, 1st Yes 20sq cm Pain Scale: 0-10 Numeric Is Patient Pain Free? Yes WC - Nurse 3 - General Ulcer D/C NN Start: 05/11/25 09:17 Freq: Status: Active Protocol: Activity Type Activity Date Activity User E-sign Co-sign Detail Recorded Client Recorded Date Recorded By Document 05/11/25 10:08 [id number] 05/11/25 10:09 05/11/25 10:08 Wound Care Center Nurse 3 #8 L Tenorio ulcer -Ulcer Cleansing Not Cleansed -Foul Odor after Cleansing No -Primary Dressing Applied Promogran Madelaine Matter -Primary Dressing Covered/Secured with Dry Gauze & Roll Gauze, Secured with Tape -Promogran Madelaine Matter 1 LLE -Lotion applied to leg before No compression wrap -Tubular Bandage Single Layer -Size of Tubigrip Used Size D -Size D ($) 1 Pain Scale: 0-10 Numeric Is Patient Pain Free? 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 All findings were discussed with the patient. All questions were answered to the patient's satisfaction. Excisional debridement down to including subcutaneous tissue fascia and muscle with a number 3 mm dermal curette to left anterior full-thickness wound done without incident. Predebridement measurement was 0.3 x 0.3 x 0.2 cm. Postdebridement measurement is 0.4 x 0.3 x 1.0 cm. The area was wiped clean and patted dry. Moist Madelaine followed by dry sterile dressing compression wrap were donned. Patient will change to Madelaine every 2 days as discussed through home health care. Educated the patient the need to stop smoking while she is healing her wound. Follow-up at the wound care center with Dr. Estevez in 2 week.
--- NOTE | 2025-05-12 09:29 | WC ---
PHOTO- LEFT RODNEY 05/11/25
[2025-05-25 09:25] VITALS: BP 118/67; PULSE 86; RESP 18; TEMP 36.9
--- NOTE | 2025-05-25 12:31 | PCM.WC.PN ---
History of Present Illness Date of Service: 05/25/25 Chief Complaint: nonhealing ulcer left anterior leg. History of Wound: Patient has been getting home health care with packing of Madelaine to the full-thickness wound. Evidence of granuloma. Progress of Wound: Slow healing full-thickness wound to anterior left leg. Subjective Subjective Patient is a 64-year-old diabetic female presenting to wound care center today follow-up evaluation of full-thickness wound to the anterior left leg. Patient is getting dressing changes as discussed. She admits the wound is improving. Patient states that during her home health care visits they were having trouble trying to add the Madelaine to the full-thickness wound. She still continues to smokes. Her blood sugars well-controlled. She denies any drainage or concern for infection. Denies trauma. Denies constitutional symptoms. No other pedal complaints at this time. Objective Data Objective Data Vital Signs: Vital Signs Temp Pulse Resp BP O2 Del Method 98.5 F 86 18 118/67 Room Air 05/25/25 09:25 05/25/25 09:25 05/25/25 09:25 05/25/25 09:25 05/25/25 09:25 Oxygen Delivery Method Room Air Lab / Micro Data Micro: Microbiology 03/23/25 14:09 Ulcer, Decubitus - Leg, Left Gram Stain - Final 03/23/25 14:09 Ulcer, Decubitus - Leg, Left Wound Culture - Final Meth. resistant Staph. aureus Corynebacterium striatum Pasteurella multocida 03/23/25 14:09 Ulcer, Decubitus - Leg, Left Anaerobic Culture - Final Anaerobic cocci Physical Exam Narrative Vascular: DP and PT pulses are palpable. CFT is brisk. Skin temperature great is warm to warm from proximal ankle to the distal digits to left lower extremity. Nonpitting edema appreciated to left lower extremity. No erythema. Neurological: Light touch intact. Patient does respond to painful stimuli. Dermatological: Full-thickness wound to left anterior leg measuring 0.5 x 0.3 x 1.0 cm. Wound base is granular. No drainage or sign of infection. Excisional debridement down to including subcutaneous tissue fascia and muscle with a number 3 mm dermal curette to left anterior full-thickness wound done without incident. Predebridement measurement was 0.3 x 0.4 x 0.4 cm. Postdebridement measurement is 0.5 x 0.3 x 1.0 cm. Musculoskeletal: No pain on palpation of full-thickness ulceration to left tibia. No pain with calf compression. Debridement Note Debridement Note Debridement Free Text: Excisional debridement down to including subcutaneous tissue fascia and muscle with a number 3 mm dermal curette to left anterior full-thickness wound done without incident. Predebridement measurement was 0.3 x 0.4 x 0.4 cm. Postdebridement measurement is 0.5 x 0.3 x 1.0 cm. Post-Debridement Measurements and Additional Note: Post-Debridement Measurements/Treatment - Nurse 1 - General Ulcer Assessment Start: 05/11/25 09:17 Freq: Status: Active Protocol: [email or web address] Activity Type Activity Date Activity User E-sign Co-sign Detail Recorded Client Recorded Date Recorded By Document 05/11/25 09:21 KW [id number] 05/11/25 09:25 KW Document 05/25/25 09:25 [id number] 05/25/25 09:37 05/11/25 05/25/25 09:21 09:25 - Today's Visit Information Type of service Follow-up Visit Follow-up Visit (Physician/UNDERWRITING ACCOUNT REPRESENTATIVE (Physician/UNDERWRITING ACCOUNT REPRESENTATIVE ) ) Arrival Mode Ambulatory Ambulatory Patient Identification Verified (Name & Yes Yes ) Patient Requires Transmission-Based No Precautions Vital Signs Temperature (97.8 F-99.1 F) 96.8 F L 98.5 F Temperature Source Temporal Temporal Pulse Rate (60-100) 83 86 Pulse Location Monitor Monitor Respiratory Rate (12-18) 18 18 Respiratory rate source Observation Observation Oxygen Delivery Method Room Air Room Air Blood Pressure (90/60-120/80) 121/61 H 118/67 Blood Pressure Mean (mm Hg) 81 84 Source Monitor Monitor Position Semi-Fowlers Sitting Blood Pressure Location Left Arm Left Arm History Since Last Visit- (Skip if this is Patient's initial visit) Have you changed medications since your No No last visit? Any new allergies or adverse reactions No No Had a fall/change in ADL's that may No No increase risk of falls Signs or symptoms of abuse and/or No No neglect since last visit Have you been in the hospital since your No No last visit? Has dressing in place as prescribed Yes Yes Has compression in place as prescribed Yes Yes Has offloadiing in place as prescribed N/A N/A Experienced any changes in pain level or No No management Left Footwear Regular Shoe Regular Shoe Right Footwear Regular Shoe Regular Shoe Pain Scale: 0-10 Numeric Is Patient Pain Free? Yes Yes WC - Nurse 1 - General Ulcer Measurement Start: 05/11/25 09:17 Freq: Status: Active Protocol: Activity Type Activity Date Activity User E-sign Co-sign Detail Recorded Client Recorded Date Recorded By Document 05/11/25 09:21 KW [id number] 05/11/25 09:25 KW Document 05/25/25 09:25 [id number] 05/25/25 09:37 05/11/25 05/25/25 09:21 09:25 Wound Center Nurse 1 #8 L Tenorio ulcer -Current Size (cm) - Length 0.3 0.2 -Current Size (cm) - Width 0.2 0.2 -Current Size (cm) - Depth 0.3 0.5 -Total Square Cm 0.06 0.04 -Date of Last Picture (Recall this 05/11/25 05/25/25 field) -Photo Taken Yes -Epithelialization Large 67-100% Small 1-33% -Tunneling No -Undermining/Tunneling No -Circular Undermining No -Exudate Amt Medium Small -Exudate Type Serosanguineous Yellow/Green -Wound Margin Thickened Distinct, Outline Attached -Granulation Amt Large (67-100%) Small (1-33%) -Granulation Quality Red [place] -Slough/Fibrin No -Necrosis Amt Small (1-33%) -Necrotic Tissue Type Adherent Slough -Texture (Mima-wound Skin Appearance) Assessed Assessed -Moisture (Mima-wound Skin Appearance) Assessed Assessed -Color (Mima-wound Skin Appearance) Assessed Assessed -Temperature (Mima-wound Skin No Abnormality No Abnormality Appearance) (Pt Warm) (Pt Warm) -Tenderness on Palpation (Mima-wound No No Skin Appearance) -Ulcer Cleansing Rinsed/ Soap and Water Irrigated with Saline -Foul Odor after Cleansing No No -Anesthetic Used 5% Lidocaine 5% Lidocaine Gel Gel Lower Limb Edema Present No Left Calf (cm) 30 Left Ankle (cm) 19 WC - Nurse 2 - General Ulcer CM Notes Start: 05/11/25 09:17 Freq: Status: Active Protocol: Activity Type Activity Date Activity User E-sign Co-sign Detail Recorded Client Recorded Date Recorded By Document 05/11/25 09:53 [id number] 05/11/25 09:55 Document 05/25/25 09:58 [id number] 05/25/25 09:59 05/11/25 05/25/25 09:53 09:58 Wound Center Nurse 2 #8 L Tenorio ulcer -Time 09:53 09:58 -Correct Patient Yes Yes -Correct Side, Site, Position Yes Yes -Correct Procedure Yes Yes -Procedure Performed Yes Yes -Type of Procedure Debridement Debridement -Clinical Debridement Muscle / Fascia Muscle / Fascia -Tissue Removed Muscle Muscle -Post Debridement (cm) - Length 0.4 0.5 -Post Debridement (cm) - Width 0.3 0.3 -Post Debridement (cm) - Depth 1.0 1.0 -Total Square (Post) (cm) 0.12 0.15 -Area of Debridement (cm) - Length 0.4 0.5 -Area of Debridement (cm) - Width 0.3 0.3 -Total Square (Area) (cm) 0.12 0.15 -Tunneling No No -Undermining/Tunneling No No -Circular Undermining No No -Wound/Ulcer Outcome Not Healed Not Healed -Ulcer Cleansing Rinsed/ Rinsed/ Irrigated with Irrigated with Saline Saline -Foul Odor after Cleansing No No -Bioengineered Tissue No -Bleeding Controlled with Pressure Pressure -Treatment Response Procedure Procedure Tolerated Well Tolerated Well -Offloading No No -Debridement - Muscle / Fascia, 1st Yes Yes 20sq cm Pain Scale: 0-10 Numeric Is Patient Pain Free? Yes Yes WC - Nurse 3 - General Ulcer D/C NN Start: 05/11/25 09:17 Freq: Status: Active Protocol: Activity Type Activity Date Activity User E-sign Co-sign Detail Recorded Client Recorded Date Recorded By Document 05/11/25 10:08 [id number] 05/11/25 10:09 Document 05/25/25 10:24 [id number] 05/25/25 10:26 05/11/25 05/25/25 10:08 10:24 Wound Care Center Nurse 3 #8 L Tenorio ulcer -Ulcer Cleansing Not Cleansed Rinsed/ Irrigated with Saline -Foul Odor after Cleansing No -Primary Dressing Applied Promogran Silicone Border Madelaine Matter Foam 4x4 -Other Dressing dakins gauze -Primary Dressing Covered/Secured with Dry Gauze & Roll Gauze, Secured with Tape -Promogran Madelaine Matter 1 -Silicone Border Foam 4x4 1 LLE -Lotion applied to leg before No compression wrap -Tubular Bandage Single Layer Single Layer -Size of Tubigrip Used Size D Size D -Size D ($) 1 1 Pain Scale: 0-10 Numeric Is Patient Pain Free? 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 All findings were discussed with the patient. All questions were answered to the patient's satisfaction. Excisional debridement down to including subcutaneous tissue fascia and muscle with a number 3 mm dermal curette to left anterior full-thickness wound done without incident. Predebridement measurement was 0.3 x 0.4 x 0.4 cm. Postdebridement measurement is 0.5 x 0.3 x 1.0 cm. The area was wiped clean and patted dry. Moist Madelaine followed by dry sterile dressing compression wrap were donned. Patient will change to Madelaine every 2 days as discussed through home health care. Educated the patient the need to stop smoking while she is healing her wound. Follow-up at the wound care center with Dr. Estevez in 2 week.
--- NOTE | 2025-05-25 14:24 | WC ---
PHOTO - LEFT RODNEY 05/25/25
== END 2025-06-07 23:59 | disposition home or self-care (01) ==
LOC: WC 09:30
PROVIDERS: Referring Provider Nurse Practitioner Family; Visit Provider Podiatrist Foot & Ankle Surgery
DX: L97.825 Non-pressure chronic ulcer of other part of left lower leg with muscle involvement without evidence of necrosis (principal); F17.200 Nicotine dependence, unspecified, uncomplicated; R60.0 Localized edema
CPT/HCPCS: 11043

== ENCOUNTER 2025-06-21 10:38 | Outpatient (RCR) | payer MEDICAID, SELFPAY | END 2025-07-08 23:59 | LOC: NS 10:38 | PROVIDERS: Referring Provider Nurse Practitioner Family; Visit Provider Podiatrist Foot & Ankle Surgery | DX: Z71.3 Dietary counseling and surveillance (principal); E46 Unspecified protein-calorie malnutrition; J44.9 Chronic obstructive pulmonary disease, unspecified; L97.822 Non-pressure chronic ulcer of other part of left lower leg with fat layer exposed | CPT/HCPCS: 97803 ==

== ENCOUNTER 2025-07-06 09:30 | Outpatient (RCR) | payer MEDICAID, SELFPAY ==
[2025-06-08 09:29] VITALS: BP 119/63; PULSE 81; RESP 18; TEMP 36.6
--- NOTE | 2025-06-08 12:59 | PN.PCM_ITS ---
History of Present Illness Date of Service: 06/08/25 Chief Complaint: nonhealing ulcer left anterior leg. History of Wound: Patient has been getting home health care with packing of Madelaine to the full-thickness wound. Evidence of granuloma. Progress of Wound: Improving full-thickness wound to the left anterior leg. Subjective Subjective Patient is a 64-year-old diabetic female presenting to wound care center today follow-up evaluation of full-thickness wound to anterior left leg. Patient has been compliant with dressing changes and has been doing wound every other day with home health care. Patient does continue to smoke but has reduced her smoking intake per her words. She has kept her protein up and using the Jay dietary supplement drink as discussed. She mitts great improvement to her wound. She denies drainage or trauma. Denies constitutional symptoms. No other pedal complaints at this time. Objective Data Objective Data Vital Signs: Vital Signs Temp Pulse Resp BP O2 Del Method 97.8 F 81 18 119/63 Room Air 06/08/25 09:29 06/08/25 09:29 06/08/25 09:29 06/08/25 09:29 06/08/25 09:29 Oxygen Delivery Method Room Air Lab / Micro Data Micro: Microbiology 03/23/25 14:09 Ulcer, Decubitus - Leg, Left Gram Stain - Final 03/23/25 14:09 Ulcer, Decubitus - Leg, Left Wound Culture - Final Meth. resistant Staph. aureus Corynebacterium striatum Pasteurella multocida 03/23/25 14:09 Ulcer, Decubitus - Leg, Left Anaerobic Culture - Final Anaerobic cocci Physical Exam Narrative Vascular: DP and PT pulses are palpable. CFT is brisk. Skin temperature great is warm to warm from proximal ankle to the distal digits to left lower extremity. Nonpitting edema appreciated to left lower extremity. No erythema. Neurological: Light touch intact. Patient does respond to painful stimuli. Dermatological: Full-thickness wound to left anterior leg measuring 0.5 x 0.4 x 0.4 cm. Negative probe to bone. Wound base is granular. No drainage or sign of infection. Excisional debridement down to including subcutaneous tissue fascia and muscle with a number 3 mm dermal curette to left anterior full-thickness wound done without incident. Predebridement measurement was 0.3 x 0.3 x 0.3 cm. Postdebridement measurement is 0.5 x 0.4 x 0.4 cm. Musculoskeletal: No pain on palpation of full-thickness ulceration to left tibia. No pain with calf compression. Debridement Note Debridement Note Debridement Free Text: Excisional debridement down to including subcutaneous tissue fascia and muscle with a number 3 mm dermal curette to left anterior full-thickness wound done without incident. Predebridement measurement was 0.3 x 0.3 x 0.3 cm. Postdebridement measurement is 0.5 x 0.4 x 0.4 cm. Post-Debridement Measurements and Additional Note: Post-Debridement Measurements/Treatment WC - Nurse 1 - General Ulcer Assessment Start: 06/08/25 09:27 Freq: Status: Active Protocol: [facility] Activity Type Activity Date Activity User E-sign Co-sign Detail Recorded Client Recorded Date Recorded By Document 06/08/25 09:29 [id number] 06/08/25 09:36 06/08/25 09:29 WC - Today's Visit Information Type of service Follow-up Visit (Physician/KINESEOLOGIST ) Arrival Mode Ambulatory Transfer Assistance None Patient Identification Verified (Name & Yes ) Vital Signs Temperature (97.8 F-99.1 F) 97.8 F Temperature Source Temporal Pulse Rate (60-100) 81 Pulse Location Monitor Respiratory Rate (12-18) 18 Respiratory rate source Observation Oxygen Delivery Method Room Air Blood Pressure (90/60-120/80) 119/63 Blood Pressure Mean (mm Hg) 81 Source Monitor Position Sitting Blood Pressure Location Left Arm History Since Last Visit- (Skip if this is Patient's initial visit) Have you changed medications since your No last visit? Any new allergies or adverse reactions No Had a fall/change in ADL's that may No increase risk of falls Signs or symptoms of abuse and/or No neglect since last visit Have you been in the hospital since your No last visit? Has dressing in place as prescribed Yes Has compression in place as prescribed Yes Has offloadiing in place as prescribed N/A Experienced any changes in pain level or No management Left Footwear Regular Shoe Right Footwear Regular Shoe Pain Scale: 0-10 Numeric Is Patient Pain Free? Yes YVETTE - Nurse 1 - General Ulcer Measurement Start: 06/08/25 09:27 Freq: Status: Active Protocol: Activity Type Activity Date Activity User E-sign Co-sign Detail Recorded Client Recorded Date Recorded By Document 06/08/25 09:29 [id number] 06/08/25 09:36 06/08/25 09:29 Wound Center Nurse 1 #8 L Tenorio ulcer -Current Size (cm) - Length 0.4 -Current Size (cm) - Width 0.4 -Current Size (cm) - Depth 0.9 -Total Square Cm 0.16 -Date of Last Picture (Recall this 06/08/25 field) -Photo Taken Yes -Epithelialization Small 1-33% -Tunneling No -Undermining/Tunneling No -Circular Undermining No -Exudate Amt Small -Exudate Type Yellow/Green -Wound Margin Distinct, Outline Attached -Granulation Amt Small (1-33%) -Granulation Quality [place] -Slough/Fibrin No -Necrosis Amt None Present (0 %) -Texture (Mima-wound Skin Appearance) No Abnormality, Assessed -Moisture (Mima-wound Skin Appearance) Assessed -Color (Mima-wound Skin Appearance) No Abnormality, Assessed -Temperature (Mima-wound Skin No Abnormality Appearance) (Pt Warm) -Tenderness on Palpation (Mima-wound No Skin Appearance) -Ulcer Cleansing Soap and Water -Foul Odor after Cleansing Yes -Anesthetic Used 5% Lidocaine Gel WC - Nurse 2 - General Ulcer CM Notes Start: 06/08/25 09:27 Freq: Status: Active Protocol: Activity Type Activity Date Activity User E-sign Co-sign Detail Recorded Client Recorded Date Recorded By Document 06/08/25 10:02 [id number] 06/08/25 10:04 06/08/25 10:02 Wound Center Nurse 2 -Time 10:03 -Correct Patient Yes -Correct Side, Site, Position Yes -Correct Procedure Yes -Procedure Performed Yes -Type of Procedure Debridement -Clinical Debridement Muscle / Fascia -Tissue Removed Muscle -Post Debridement (cm) - Length 0.5 -Post Debridement (cm) - Width 0.4 -Post Debridement (cm) - Depth 0.4 -Total Square (Post) (cm) 0.20 -Area of Debridement (cm) - Length 0.5 -Area of Debridement (cm) - Width 0.4 -Total Square (Area) (cm) 0.20 -Tunneling No -Undermining/Tunneling No -Circular Undermining No -Wound/Ulcer Outcome Not Healed -Ulcer Cleansing Rinsed/ Irrigated with Saline -Foul Odor after Cleansing No -Bioengineered Tissue No -Bleeding Controlled with Pressure -Treatment Response Procedure Tolerated Well -Offloading No -Debridement - Muscle / Fascia, 1st Yes 20sq cm Pain Scale: 0-10 Numeric Is Patient Pain Free? Yes - Nurse 3 - General Ulcer D/C NN Start: 06/08/25 09:27 Freq: Status: Active Protocol: Activity Type Activity Date Activity User E-sign Co-sign Detail Recorded Client Recorded Date Recorded By Document 06/08/25 10:04 [id number] 06/08/25 10:04 [email or web address] 06/08/25 10:04 Wound Care Center Nurse 3 #8 L Tenorio ulcer -Ulcer Cleansing Rinsed/ Irrigated with Saline -Foul Odor after Cleansing No -Other Dressing DAKIN'S -Primary Dressing Covered/Secured with Dry Gauze & Roll Gauze, Secured with Tape LLE -Tubular Bandage Single Layer -Size of Tubigrip Used Size C -Size C ($) 1 Pain Scale: 0-10 Numeric Is Patient Pain Free? 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 All findings were discussed with the patient. All questions were answered to the patient's satisfaction. Excisional debridement down to including subcutaneous tissue fascia and muscle with a number 3 mm dermal curette to left anterior full-thickness wound done without incident. Predebridement measurement was 0.3 x 0.3 x 0.3 cm. Postdebridement measurement is 0.5 x 0.4 x 0.4 cm. The area was wiped clean and patted dry. Saline moist Dakin's was applied to the full-thickness wound followed by dry sterile dressing and compression wrap. Patient will continue dressing changes daily to every other day with home health care. Educated patient continue smoking sensation which she is understanding of. Follow-up at the wound care center with Dr. Estevez in 2 week.
--- NOTE | 2025-06-09 09:31 | WC ---
PHOTO-LEFT RODNEY 06/08/25
[2025-06-22 09:18] VITALS: BP 109/80; PULSE 84; RESP 15; TEMP 36.2
--- NOTE | 2025-06-22 10:10 | PCM.WC.PN ---
History of Present Illness Date of Service: 06/22/25 Chief Complaint: nonhealing ulcer left anterior leg. History of Wound: Patient has been getting home health care with packing of Madelaine to the full-thickness wound. Evidence of granuloma. Progress of Wound: Improving full-thickness wound to the left anterior leg. Subjective Subjective Patient is a 64-year-old diabetic female presenting to clinic today follow-up evaluation of full-thickness wound to the anterior aspect left lower extremity. Patient is compliant with dressing changes. She has reduced her smoking but still continues to smoke even though we have suggested many times to quit. Patient notes improvement to the wound but it is still there. She denies trauma. She denies drainage. She denies constitutional symptoms. No other pedal complaints at this time. Objective Data Objective Data Vital Signs: Vital Signs Temp Pulse Resp BP O2 Del Method 97.1 F L 84 15 109/80 Room Air 06/22/25 09:18 06/22/25 09:18 06/22/25 09:18 06/22/25 09:18 06/08/25 09:29 Oxygen Delivery Method Room Air Lab / Micro Data Micro: Microbiology 03/23/25 14:09 Ulcer, Decubitus - Leg, Left Gram Stain - Final 03/23/25 14:09 Ulcer, Decubitus - Leg, Left Wound Culture - Final Meth. resistant Staph. aureus Corynebacterium striatum Pasteurella multocida 03/23/25 14:09 Ulcer, Decubitus - Leg, Left Anaerobic Culture - Final Anaerobic cocci Physical Exam Narrative Vascular: DP and PT pulses are palpable. CFT is brisk. Skin temperature great is warm to warm from proximal ankle to the distal digits to left lower extremity. Nonpitting edema appreciated to left lower extremity. No erythema. Neurological: Light touch intact. Patient does respond to painful stimuli. Dermatological: Full-thickness wound to left anterior leg measuring 0.7 x 0.3 x 1.4 cm. Negative probe to bone. Wound base is granular. No drainage or sign of infection. Excisional debridement down to including subcutaneous tissue fascia and muscle with a number 3 mm dermal curette to left anterior full-thickness wound done without incident. Predebridement measurement was 0.5 x 0.3 x 0.4 cm. Postdebridement measurement is 0.7 x 0.3 x 1.4 cm. Musculoskeletal: No pain on palpation of full-thickness ulceration to left tibia. No pain with calf compression. Debridement Note Debridement Note Debridement Free Text: Excisional debridement down to including subcutaneous tissue fascia and muscle with a number 3 mm dermal curette to left anterior full-thickness wound done without incident. Predebridement measurement was 0.5 x 0.3 x 0.4 cm. Postdebridement measurement is 0.7 x 0.3 x 1.4 cm. Post-Debridement Measurements and Additional Note: Post-Debridement Measurements/Treatment WC - Nurse 1 - General Ulcer Assessment Start: 06/08/25 09:27 Freq: Status: Active Protocol: [email or web address] Activity Type Activity Date Activity User E-sign Co-sign Detail Recorded Client Recorded Date Recorded By Document 06/08/25 09:29 GM [id number] 06/08/25 09:36 GM Document 06/22/25 09:18 ML [id number] 06/22/25 09:21 ML 06/08/25 06/22/25 09:29 09:18 - Today's Visit Information Type of service Follow-up Visit Follow-up Visit (Physician/FILM EDITOR (Physician/FILM EDITOR ) ) Arrival Mode Ambulatory Ambulatory Transfer Assistance None None Patient Identification Verified (Name & Yes Yes ) Patient Requires Transmission-Based No Precautions Vital Signs Temperature (97.8 F-99.1 F) 97.8 F 97.1 F L Temperature Source Temporal Temporal Pulse Rate (60-100) 81 84 Pulse Location Monitor Monitor Respiratory Rate (12-18) 18 15 Respiratory rate source Observation Observation Oxygen Delivery Method Room Air Blood Pressure (90/60-120/80) 119/63 109/80 Blood Pressure Mean (mm Hg) 81 89 Source Monitor Monitor Position Sitting Sitting Blood Pressure Location Left Arm Right Forearm History Since Last Visit- (Skip if this is Patient's initial visit) Have you changed medications since your No No last visit? Any new allergies or adverse reactions No No Had a fall/change in ADL's that may No No increase risk of falls Signs or symptoms of abuse and/or No No neglect since last visit Have you been in the hospital since your No No last visit? Has dressing in place as prescribed Yes Yes Has compression in place as prescribed Yes Yes Has offloadiing in place as prescribed N/A N/A Experienced any changes in pain level or No No management Left Footwear Regular Shoe Right Footwear Regular Shoe Pain Scale: 0-10 Numeric Is Patient Pain Free? Yes Yes WC - Nurse 1 - General Ulcer Measurement Start: 06/08/25 09:27 Freq: Status: Active Protocol: Activity Type Activity Date Activity User E-sign Co-sign Detail Recorded Client Recorded Date Recorded By Document 06/08/25 09:29 GM [id number] 06/08/25 09:36 GM Document 06/22/25 09:18 ML [id number] 06/22/25 09:21 ML 06/08/25 06/22/25 09:29 09:18 Wound Center Nurse 1 #8 L Tenorio ulcer -Current Size (cm) - Length 0.4 0.3 -Current Size (cm) - Width 0.4 0.2 -Current Size (cm) - Depth 0.9 0.6 -Total Square Cm 0.16 0.06 -Date of Last Picture (Recall this 06/08/25 field) -Photo Taken Yes -Epithelialization Small 1-33% -Tunneling No -Undermining/Tunneling No -Circular Undermining No -Exudate Amt Small Medium -Exudate Type Yellow/Green Serosanguineous -Wound Margin Distinct, Outline Attached -Granulation Amt Small (1-33%) None Present (0 %) -Granulation Quality [place] -Slough/Fibrin No -Necrosis Amt None Present (0 Medium (34-66%) %) -Necrotic Tissue Type Adherent Slough -Texture (Mima-wound Skin Appearance) No Abnormality, Assessed Assessed -Moisture (Mima-wound Skin Appearance) Assessed -Color (Mima-wound Skin Appearance) No Abnormality, Assessed Assessed -Temperature (Mima-wound Skin No Abnormality No Abnormality Appearance) (Pt Warm) (Pt Warm) -Tenderness on Palpation (Mima-wound No No Skin Appearance) -Ulcer Cleansing Soap and Water Rinsed/ Irrigated with Saline -Foul Odor after Cleansing Yes No -Anesthetic Used 5% Lidocaine 5% Lidocaine Gel Gel WC - Nurse 2 - General Ulcer CM Notes Start: 06/08/25 09:27 Freq: Status: Active Protocol: Activity Type Activity Date Activity User E-sign Co-sign Detail Recorded Client Recorded Date Recorded By Document 06/08/25 10:02 JF [id number] 06/08/25 10:04 JF Document 06/22/25 09:37 JF [id number] 06/22/25 09:40 JF 06/08/25 06/22/25 10:02 09:37 Wound Center Nurse 2 #8 L Tenorio ulcer -Time 10:03 09:38 -Correct Patient Yes Yes -Correct Side, Site, Position Yes Yes -Correct Procedure Yes Yes -Procedure Performed Yes Yes -Type of Procedure Debridement Debridement -Clinical Debridement Muscle / Fascia Muscle / Fascia -Tissue Removed Muscle Muscle -Post Debridement (cm) - Length 0.5 0.7 -Post Debridement (cm) - Width 0.4 0.3 -Post Debridement (cm) - Depth 0.4 1.4 -Total Square (Post) (cm) 0.20 0.21 -Area of Debridement (cm) - Length 0.5 0.7 -Area of Debridement (cm) - Width 0.4 0.3 -Total Square (Area) (cm) 0.20 0.21 -Tunneling No No -Undermining/Tunneling No No -Circular Undermining No No -Wound/Ulcer Outcome Not Healed Not Healed -Ulcer Cleansing Rinsed/ Rinsed/ Irrigated with Irrigated with Saline Saline -Foul Odor after Cleansing No No -Bioengineered Tissue No No -Bleeding Controlled with Pressure Pressure -Treatment Response Procedure Procedure Tolerated Well Tolerated Well -Offloading No No -Debridement - Muscle / Fascia, 1st Yes Yes 20sq cm Pain Scale: 0-10 Numeric Is Patient Pain Free? Yes Yes - Nurse 3 - General Ulcer D/C NN Start: 06/08/25 09:27 Freq: Status: Active Protocol: Activity Type Activity Date Activity User E-sign Co-sign Detail Recorded Client Recorded Date Recorded By Document 06/08/25 10:04 TENZIN [id number] 06/08/25 10:04 Document 06/22/25 09:44 JF [id number] 06/22/25 09:45 06/08/25 06/22/25 10:04 09:44 Wound Care Center Nurse 3 #8 L Tenorio ulcer -Ulcer Cleansing Rinsed/ Rinsed/ Irrigated with Irrigated with Saline Saline -Foul Odor after Cleansing No No -Primary Dressing Applied Promogran Madelaine Matter, Silicone Border Foam 4x4 -Other Dressing DAKIN'S -Primary Dressing Covered/Secured with Dry Gauze & Roll Gauze, Secured with Tape -Promogran Madelaine Matter 1 -Silicone Border Foam 4x4 1 LLE -Tubular Bandage Single Layer Single Layer -Size of Tubigrip Used Size C Size D -Size C ($) 1 -Size D ($) 1 Pain Scale: 0-10 Numeric Is Patient Pain Free? 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 All findings were discussed with the patient. All questions were answered to the patient's satisfaction. Excisional debridement down to including subcutaneous tissue fascia and muscle with a number 3 mm dermal curette to left anterior full-thickness wound done without incident. Predebridement measurement was 0.5 x 0.3 x 0.4 cm. Postdebridement measurement is 0.7 x 0.3 x 1.4 cm. The area was flushed and wiped clean and patted dry. Moist Madelaine was applied followed by sterile dressing and Tubigrip. Patient will change every other day with home health care. Educated patient on importance of keeping her blood sugar well-controlled which she states that has been a little low. I educated the patient that if and get too low she could end up fainting and will need to make sure that they have glucose tabs and or orange juice in the facility/house to help raise her blood sugar. I did discuss with the patient that if she continues to have low blood sugar she needs to either present to her primary doctor or emergency room for evaluation and treatment. Educated the patient on the importance of smoking sensation. She showed understanding of this. Patient is to continue high intake of protein. Follow-up at the wound care center with Dr. Estevez in 2 week.
--- NOTE | 2025-06-23 09:22 | WC ---
PHOTO-LEFT RODNEY 06/22/25
--- NOTE | 2025-06-24 08:28 | WC ---
received call from Candido at [facility] - asking if they can see the pt for wound care on . Informed them they could do those days and when she see Dr. Estevez on Wednesdays then we will do the dressing change. He is in agreement with this.
[2025-07-06 09:21] VITALS: BP 124/59; PULSE 83; RESP 18; TEMP 36.1
--- NOTE | 2025-07-06 11:55 | PCM.WC.PN ---
History of Present Illness Date of Service: 07/06/25 Chief Complaint: nonhealing ulcer left anterior leg. History of Wound: Patient has been getting home health care with packing of Madelaine to the full-thickness wound. Evidence of granuloma. Progress of Wound: Improving full-thickness wound to the left anterior leg. Subjective Subjective Patient is a 64-year-old female presenting to clinic today follow-up evaluation of left anterior full-thickness wound. Patient has been compliant with dressing changes with home health care. She admits improvement to the wound. She continues to smoke but at a reduced amount. She denies any trauma. She denies any redness or drainage. Denies constitutional symptoms. No other pedal complaints at this time. Objective Data Objective Data Vital Signs: Vital Signs Temp Pulse Resp BP O2 Del Method 97 F L 83 18 124/59 H Room Air 07/06/25 09:21 07/06/25 09:21 07/06/25 09:21 07/06/25 09:21 07/06/25 09:21 Oxygen Delivery Method Room Air Lab / Micro Data Micro: Microbiology 03/23/25 14:09 Ulcer, Decubitus - Leg, Left Gram Stain - Final 03/23/25 14:09 Ulcer, Decubitus - Leg, Left Wound Culture - Final Meth. resistant Staph. aureus Corynebacterium striatum Pasteurella multocida 03/23/25 14:09 Ulcer, Decubitus - Leg, Left Anaerobic Culture - Final Anaerobic cocci Physical Exam Narrative Vascular: DP and PT pulses are palpable. CFT is brisk. Skin temperature great is warm to warm from proximal ankle to the distal digits to left lower extremity. Nonpitting edema appreciated to left lower extremity. No erythema. Neurological: Light touch intact. Patient does respond to painful stimuli. Dermatological: Full-thickness wound to left anterior leg measuring 0.5 x 0.3 x 1.0 cm. Negative probe to bone. Wound base is granular. No drainage or sign of infection. Excisional debridement down to including subcutaneous tissue fascia and muscle with a number 3 mm dermal curette to left anterior full-thickness wound done without incident. Predebridement measurement was 0.3 x 0.2 x 0.8 cm.. Postdebridement measurement is 0.5 x 0.3 x 1.0 cm. Musculoskeletal: No pain on palpation of full-thickness ulceration to left tibia. No pain with calf compression. Debridement Note Debridement Note Debridement Free Text: Excisional debridement down to including subcutaneous tissue fascia and muscle with a number 3 mm dermal curette to left anterior full-thickness wound done without incident. Predebridement measurement was 0.3 x 0.2 x 0.8 cm.. Postdebridement measurement is 0.5 x 0.3 x 1.0 cm. Post-Debridement Measurements and Additional Note: Post-Debridement Measurements/Treatment - Nurse 1 - General Ulcer Assessment Start: 06/08/25 09:27 Freq: Status: Active Protocol: WC.LOWEXT Activity Type Activity Date Activity User E-sign Co-sign Detail Recorded Client Recorded Date Recorded By Document 06/08/25 09:29 GM [id number] 06/08/25 09:36 GM Document 06/22/25 09:18 ML [id number] 06/22/25 09:21 ML Document 07/06/25 09:21 MT [id number] 07/06/25 09:29 MT 06/08/25 06/22/25 07/06/25 09:29 09:18 09:21 - Today's Visit Information Type of service Follow-up Visit Follow-up Visit (Physician/FUEL YARD OPERATOR (Physician/FUEL YARD OPERATOR ) ) Arrival Mode Ambulatory Ambulatory Ambulatory Transfer Assistance None None Accompanied by self Patient Identification Verified (Name & Yes Yes Yes ) Patient Requires Transmission-Based No Precautions Safety Precautions Fall Prevention Vital Signs Temperature (97.8 F-99.1 F) 97.8 F 97.1 F L 97 F L Temperature Source Temporal Temporal Temporal Pulse Rate (60-100) 81 84 83 Pulse Location Monitor Monitor Monitor Respiratory Rate (12-18) 18 15 18 Respiratory rate source Observation Observation Monitor Oxygen Delivery Method Room Air Room Air Blood Pressure (90/60-120/80) 119/63 109/80 124/59 H Blood Pressure Mean (mm Hg) 81 89 80 Source Monitor Monitor Monitor Position Sitting Sitting Supine Blood Pressure Location Left Arm Right Forearm Right Arm History Since Last Visit- (Skip if this is Patient's initial visit) Have you changed medications since your No No last visit? Any new allergies or adverse reactions No No Had a fall/change in ADL's that may No No increase risk of falls Signs or symptoms of abuse and/or No No neglect since last visit Have you been in the hospital since your No No last visit? Has dressing in place as prescribed Yes Yes Yes Has compression in place as prescribed Yes Yes Yes Has offloadiing in place as prescribed N/A N/A Yes Experienced any changes in pain level or No No Yes management Left Footwear Regular Shoe Regular Shoe Right Footwear Regular Shoe Regular Shoe Pain Scale: 0-10 Numeric Is Patient Pain Free? Yes Yes Yes WC - Nurse 1 - General Ulcer Measurement Start: 06/08/25 09:27 Freq: Status: Active Protocol: Activity Type Activity Date Activity User E-sign Co-sign Detail Recorded Client Recorded Date Recorded By Document 06/08/25 09:29 GM [id number] 06/08/25 09:36 GM Document 06/22/25 09:18 ML [id number] 06/22/25 09:21 ML Document 07/06/25 09:21 MT [id number] 07/06/25 09:29 MT 06/08/25 06/22/25 07/06/25 09:29 09:18 09:21 Wound Center Nurse 1 #8 L Tenorio ulcer -Current Size (cm) - Length 0.4 0.3 0.6 -Current Size (cm) - Width 0.4 0.2 0.3 -Current Size (cm) - Depth 0.9 0.6 0.3 -Total Square Cm 0.16 0.06 0.18 -Date of Last Picture (Recall this 06/08/25 07/06/25 field) -Photo Taken Yes Yes -Epithelialization Small 1-33% -Tunneling No No -Undermining/Tunneling No No -Circular Undermining No No -Exudate Amt Small Medium Small -Exudate Type Yellow/Green Serosanguineous Serous -Wound Margin Distinct, Thickened & Outline Rolled Under Attached -Granulation Amt Small (1-33%) None Present (0 Medium (34-66%) %) -Granulation Quality [place] Pale,[place] -Slough/Fibrin No -Necrosis Amt None Present (0 Medium (34-66%) Medium (34-66%) %) -Necrotic Tissue Type Adherent Slough Adherent Slough -Texture (Mima-wound Skin Appearance) No Abnormality, Assessed Assessed Assessed -Moisture (Mima-wound Skin Appearance) Assessed Assessed -Color (Mima-wound Skin Appearance) No Abnormality, Assessed Assessed Assessed -Temperature (Mima-wound Skin No Abnormality No Abnormality No Abnormality Appearance) (Pt Warm) (Pt Warm) (Pt Warm) -Tenderness on Palpation (Mima-wound No No No Skin Appearance) -Ulcer Cleansing Soap and Water Rinsed/ Soap and Water Irrigated with Saline -Foul Odor after Cleansing Yes No No -Anesthetic Used 5% Lidocaine 5% Lidocaine 5% Lidocaine Gel Gel Gel Left Calf (cm) 27.5 Left Ankle (cm) 21.5 WC - Nurse 2 - General Ulcer CM Notes Start: 06/08/25 09:27 Freq: Status: Active Protocol: Activity Type Activity Date Activity User E-sign Co-sign Detail Recorded Client Recorded Date Recorded By Document 06/08/25 10:02 [id number] 06/08/25 10:04 JF Document 06/22/25 09:37 [id number] 06/22/25 09:40 JF Document 07/06/25 10:02 [id number] 07/06/25 10:05 06/08/25 06/22/25 07/06/25 10:02 09:37 10:02 Wound Center Nurse 2 #8 L Tenorio ulcer -Time 10:03 09:38 10:04 -Correct Patient Yes Yes Yes -Correct Side, Site, Position Yes Yes Yes -Correct Procedure Yes Yes Yes -Procedure Performed Yes Yes Yes -Type of Procedure Debridement Debridement Debridement -Clinical Debridement Muscle / Fascia Muscle / Fascia Muscle / Fascia -Tissue Removed Muscle Muscle Muscle -Post Debridement (cm) - Length 0.5 0.7 0.5 -Post Debridement (cm) - Width 0.4 0.3 0.3 -Post Debridement (cm) - Depth 0.4 1.4 1.0 -Total Square (Post) (cm) 0.20 0.21 0.15 -Area of Debridement (cm) - Length 0.5 0.7 0.5 -Area of Debridement (cm) - Width 0.4 0.3 0.3 -Total Square (Area) (cm) 0.20 0.21 0.15 -Tunneling No No No -Undermining/Tunneling No No No -Circular Undermining No No No -Wound/Ulcer Outcome Not Healed Not Healed Not Healed -Ulcer Cleansing Rinsed/ Rinsed/ Rinsed/ Irrigated with Irrigated with Irrigated with Saline Saline Saline -Foul Odor after Cleansing No No No -Bioengineered Tissue No No No -Bleeding Controlled with Pressure Pressure Pressure -Treatment Response Procedure Procedure Procedure Tolerated Well Tolerated Well Tolerated Well -Offloading No No No -Debridement - Muscle / Fascia, 1st Yes Yes Yes 20sq cm Pain Scale: 0-10 Numeric Is Patient Pain Free? Yes Yes Yes - Nurse 3 - General Ulcer D/C NN Start: 06/08/25 09:27 Freq: Status: Active Protocol: Activity Type Activity Date Activity User E-sign Co-sign Detail Recorded Client Recorded Date Recorded By Document 06/08/25 10:04 [id number] 06/08/25 10:04 Document 06/22/25 09:44 [id number] 06/22/25 09:45 JF Document 07/06/25 10:15 MT [id number] 07/06/25 10:19 MT 06/08/25 06/22/25 07/06/25 10:04 09:44 10:15 Wound Care Center Nurse 3 #8 L Tenorio ulcer -Ulcer Cleansing Rinsed/ Rinsed/ Irrigated with Irrigated with Saline Saline -Foul Odor after Cleansing No No -Primary Dressing Applied Promogran Promogran Madelaine Matter, Madelaine Matter, Silicone Border Silicone Border Foam 4x4 Foam 4x4 -Other Dressing DAKIN'S -Primary Dressing Covered/Secured with Dry Gauze & Roll Gauze, Secured with Tape -Promogran Madelaine Matter 1 1 -Silicone Border Foam 4x4 1 1 LLE -Tubular Bandage Single Layer Single Layer Single Layer -Size of Tubigrip Used Size C Size D Size D -Size C ($) 1 -Size D ($) 1 1 Pain Scale: 0-10 Numeric Is Patient Pain Free? 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 All findings were discussed with the patient. All questions were answered to the patient's satisfaction. Excisional debridement down to including subcutaneous tissue fascia and muscle with a number 3 mm dermal curette to left anterior full-thickness wound done without incident. Predebridement measurement was 0.3 x 0.2 x 0.8 cm.. Postdebridement measurement is 0.5 x 0.3 x 1.0 cm. Areas were cleaned and patted dry. Moist present was applied to the full-thickness wound followed by dry sterile dressing and Tubigrip wrap. Patient will change every other day with home health care. Educated the patient on the importance of smoking sensation. Patient is to continue high intake of protein. Follow-up at the wound care center with Dr. Estevez in 2 week.
--- NOTE | 2025-07-07 10:39 | WC ---
PHOTO-LEFT RODNEY ULCER 07/06/25
== END 2025-07-08 23:59 | disposition home or self-care (01) ==
LOC: WC 09:30
PROVIDERS: Referring Provider Nurse Practitioner Family; Visit Provider Podiatrist Foot & Ankle Surgery
DX: E11.622 Type 2 diabetes mellitus with other skin ulcer (principal); L97.825 Non-pressure chronic ulcer of other part of left lower leg with muscle involvement without evidence of necrosis; F17.200 Nicotine dependence, unspecified, uncomplicated
CPT/HCPCS: 11043

== ENCOUNTER 2025-08-03 09:30 | Outpatient (RCR) | payer MEDICAID, SELFPAY ==
[2025-07-20 09:48] VITALS: BP 143/66; PULSE 79; RESP 18; TEMP 36.3
--- NOTE | 2025-07-20 10:47 | PCM.WC.PN ---
History of Present Illness Date of Service: 07/20/25 Chief Complaint: nonhealing ulcer left anterior leg. History of Wound: Patient has been getting home health care with packing of Madelaine to the full-thickness wound. Evidence of granuloma. Progress of Wound: Slow healing wound anterior left leg Subjective Subjective Patient is a 64-year-old diabetic female presenting to wound care center today follow-up evaluation of full-thickness wound to anterior left leg. She has been getting dressing change with home health care. At time of removal of the previous dressing there showed no packing of the full-thickness wound per nurses at the wound care center. Patient continues to smoke and states it is a habit. She is working to reduce her smoking. She is increasing her protein intake. Her blood sugars well-controlled. She denies trauma. Denies constitutional symptoms. No other pedal complaints at this time Objective Data Objective Data Vital Signs: Vital Signs Temp Pulse Resp BP O2 Del Method 97.4 F L 79 18 143/66 H Room Air 07/20/25 09:48 07/20/25 09:48 07/20/25 09:48 07/20/25 09:48 07/20/25 09:48 Oxygen Delivery Method Room Air Lab / Micro Data Micro: Microbiology 03/23/25 14:09 Ulcer, Decubitus - Leg, Left Gram Stain - Final 03/23/25 14:09 Ulcer, Decubitus - Leg, Left Wound Culture - Final Meth. resistant Staph. aureus Corynebacterium striatum Pasteurella multocida 03/23/25 14:09 Ulcer, Decubitus - Leg, Left Anaerobic Culture - Final Anaerobic cocci Physical Exam Narrative Vascular: DP and PT pulses are palpable. CFT is brisk. Skin temperature great is warm to warm from proximal ankle to the distal digits to left lower extremity. Nonpitting edema appreciated to left lower extremity. No erythema. Neurological: Light touch intact. Patient does respond to painful stimuli. Dermatological: Full-thickness wound to left anterior leg measuring 0.8 x 0.4 x 1.6 cm per negative probe to bone. Wound base is granular. No drainage or sign of infection. Excisional debridement down to including subcutaneous tissue fascia and muscle with a number 3 mm dermal curette to left anterior full-thickness wound done without incident. Predebridement measurement was 0.5 x 0.3 x 1.0 cm. Postdebridement measurement is 0.8 x 0.4 x 1.6 cm. Musculoskeletal: No pain on palpation of full-thickness ulceration to left tibia. No pain with calf compression. Debridement Note Debridement Note Debridement Free Text: Excisional debridement down to including subcutaneous tissue fascia and muscle with a number 3 mm dermal curette to left anterior full-thickness wound done without incident. Predebridement measurement was 0.5 x 0.3 x 1.0 cm. Postdebridement measurement is 0.8 x 0.4 x 1.6 cm. 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 Any new allergies or adverse reactions No Had a fall/change in ADL's that may No increase risk of falls Signs or symptoms of abuse and/or No neglect since last visit Have you been in the hospital since your No last visit? Has dressing in place as prescribed Yes Has compression in place as prescribed Yes Has offloadiing in place as prescribed N/A Experienced any changes in pain level or No management Left Footwear Regular Shoe Right Footwear Regular Shoe Pain Scale: 0-10 Numeric Is Patient Pain Free? Yes YVETTE - Nurse 1 - General Ulcer Measurement Start: 07/20/25 09:40 Freq: Status: Active Protocol: Activity Type Activity Date Activity User E-sign Co-sign Detail Recorded Client Recorded Date Recorded By Document 07/20/25 09:48 [id number] 07/20/25 09:50 07/20/25 09:48 Wound Center Nurse 1 #8 L Tenorio ulcer -Current Size (cm) - Length 0.4 -Current Size (cm) - Width 0.2 -Current Size (cm) - Depth 0.8 -Total Square Cm 0.08 -Date of Last Picture (Recall this 07/20/25 field) -Photo Taken Yes -Tunneling Yes -Tunneling Position (O'clock) 12 -Tunneling Distance (cm) 0.9 -Undermining/Tunneling No -Circular Undermining No -Exudate Amt None Present -Wound Margin Distinct, Outline Attached -Granulation Amt None Present (0 %) -Slough/Fibrin Yes -Necrosis Amt Small (1-33%) -Necrotic Tissue Type Adherent Slough -Texture (Mima-wound Skin Appearance) Assessed -Moisture (Mima-wound Skin Appearance) Assessed -Color (Mima-wound Skin Appearance) Assessed -Temperature (Mima-wound Skin No Abnormality Appearance) (Pt Warm) -Tenderness on Palpation (Mima-wound No Skin Appearance) -Ulcer Cleansing Soap and Water -Foul Odor after Cleansing No -Anesthetic Used 5% Lidocaine Gel WC - Nurse 2 - General Ulcer CM Notes Start: 07/20/25 09:40 Freq: Status: Active Protocol: Activity Type Activity Date Activity User E-sign Co-sign Detail Recorded Client Recorded Date Recorded By Document 07/20/25 10:08 [id number] 07/20/25 10:10 07/20/25 10:08 Wound Center Nurse 2 -Time 10:08 -Correct Patient Yes -Correct Side, Site, Position Yes -Correct Procedure Yes -Procedure Performed Yes -Type of Procedure Debridement -Clinical Debridement Muscle / Fascia -Tissue Removed Muscle -Post Debridement (cm) - Length 0.8 -Post Debridement (cm) - Width 0.4 -Post Debridement (cm) - Depth 1.6 -Total Square (Post) (cm) 0.32 -Area of Debridement (cm) - Length 0.8 -Area of Debridement (cm) - Width 0.4 -Total Square (Area) (cm) 0.32 -Tunneling No -Undermining/Tunneling No -Circular Undermining No -Ulcer Cleansing Rinsed/ Irrigated with Saline -Foul Odor after Cleansing No -Bioengineered Tissue No -Bleeding Controlled with Pressure -Treatment Response Procedure Tolerated Well -Offloading No -Debridement - Muscle / Fascia, 1st Yes 20sq cm Pain Scale: 0-10 Numeric Is Patient Pain Free? Yes - Nurse 3 - General Ulcer D/C NN Start: 07/20/25 09:40 Freq: Status: Active Protocol: Activity Type Activity Date Activity User E-sign Co-sign Detail Recorded Client Recorded Date Recorded By Document 07/20/25 10:17 [id number] 07/20/25 10:18 07/20/25 10:17 Wound Care Center Nurse 3 #8 L Tenorio ulcer -Ulcer Cleansing Not Cleansed -Foul Odor after Cleansing No -Primary Dressing Applied Promogran Madelaine Matter, Silicone Border Foam 4x4 -Promogran Madelaine Matter 1 -Silicone Border Foam 4x4 1 LLE -Lotion applied to leg before No compression wrap -Tubular Bandage Single Layer -Size of Tubigrip Used Size D -Size D ($) 2 Pain Scale: 0-10 Numeric Is Patient Pain Free? 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 All findings were discussed with the patient. All questions were answered to the patient's satisfaction. Excisional debridement down to including subcutaneous tissue fascia and muscle with a number 3 mm dermal curette to left anterior full-thickness wound done without incident. Predebridement measurement was 0.5 x 0.3 x 1.0 cm. Postdebridement measurement is 0.8 x 0.4 x 1.6 cm. The left lower extremities were cleaned and patted dry. Madelaine packing followed by dry sterile dressing light compression wrap was donned to left lower extremity. Strict instructions were given to the patient from health care to make sure that they are packing the Madelaine deep into the wound using a sterile cotton tip applicator which she was understanding of. Educated the patient to stop smoking or she will not heal and will most likely go to a below-knee amputation. She is continue her protein intake. I discussed with the patient that we will move forward with authorizing a snap negative pressure wound VAC to help heal the depth of the full-thickness wound as we have regressed and healing. Follow-up at the wound care center with Dr. Estevez in 1 week.
--- NOTE | 2025-07-21 09:25 | WC ---
PHOTO-LEFT RODNEY 07/20/25
[2025-07-27 08:34] VITALS: BP 136/70; PULSE 86; RESP 16; TEMP 36.3
--- NOTE | 2025-07-27 10:24 | PCM.WC.PN ---
History of Present Illness Date of Service: 07/27/25 Chief Complaint: nonhealing ulcer left anterior leg. History of Wound: Patient has been getting home health care with packing of Madelaine to the full-thickness wound. Evidence of granuloma. Progress of Wound: Slow healing wound anterior left leg Subjective Subjective Patient is a 64-year-old diabetic female presented to wound care center today follow-up evaluation of full-thickness wound to anterior left leg. Patient has been getting dressing changes with home health care. She still continues to smoke even though she knows she should quit. She denies trauma. Denies constitutional symptoms. No other pedal complaints at this time Objective Data Objective Data Vital Signs: Vital Signs Temp Pulse Resp BP O2 Del Method 97.3 F L 86 16 136/70 H Room Air 07/27/25 08:34 07/27/25 08:34 07/27/25 08:34 07/27/25 08:34 07/20/25 09:48 Oxygen Delivery Method Room Air Lab / Micro Data Micro: Microbiology 03/23/25 14:09 Ulcer, Decubitus - Leg, Left Gram Stain - Final 03/23/25 14:09 Ulcer, Decubitus - Leg, Left Wound Culture - Final Meth. resistant Staph. aureus Corynebacterium striatum Pasteurella multocida 03/23/25 14:09 Ulcer, Decubitus - Leg, Left Anaerobic Culture - Final Anaerobic cocci Physical Exam Narrative Vascular: DP and PT pulses are palpable. CFT is brisk. Skin temperature great is warm to warm from proximal ankle to the distal digits to left lower extremity. Nonpitting edema appreciated to left lower extremity. No erythema. Neurological: Light touch intact. Patient does respond to painful stimuli. Dermatological: Full-thickness wound to left anterior leg measuring 0.9 x 0.5 x 1.3 cm. Negative probe to bone. Wound base is granular. No drainage or sign of infection. Excisional debridement down to including subcutaneous tissue fascia and muscle with a number 3 mm dermal curette to left anterior full-thickness wound done without incident. Predebridement measurement was 0.6 x 0.3 x 0.9 cm. Postdebridement measurement is 0.9 x 0.5 x 1.3 cm. Musculoskeletal: No pain on palpation of full-thickness ulceration to left tibia. No pain with calf compression. Debridement Note Debridement Note Debridement Free Text: Excisional debridement down to including subcutaneous tissue fascia and muscle with a number 3 mm dermal curette to left anterior full-thickness wound done without incident. Predebridement measurement was 0.6 x 0.3 x 0.9 cm. Postdebridement measurement is 0.9 x 0.5 x 1.3 cm. 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 ) ) Arrival Mode Ambulatory Ambulatory Transfer Assistance None Patient Identification Verified (Name & Yes Yes ) Patient Requires Transmission-Based No Precautions Vital Signs Temperature (97.8 F-99.1 F) 97.4 F L 97.3 F L Temperature Source Temporal Temporal Pulse Rate (60-100) 79 86 Pulse Location Monitor Monitor Respiratory Rate (12-18) 18 16 Respiratory rate source Observation Monitor Oxygen Delivery Method Room Air Blood Pressure (90/60-120/80) 143/66 H 136/70 H Blood Pressure Mean (mm Hg) 91 92 Source Monitor Monitor Position Sitting Sitting Blood Pressure Location Left Arm History Since Last Visit- (Skip if this is Patient's initial visit) Have you changed medications since your No No last visit? Any new allergies or adverse reactions No No Had a fall/change in ADL's that may No No increase risk of falls Signs or symptoms of abuse and/or No No neglect since last visit Have you been in the hospital since your No last visit? Has dressing in place as prescribed Yes No Has compression in place as prescribed Yes Yes Has offloadiing in place as prescribed N/A Yes Experienced any changes in pain level or No No management Left Footwear Regular Shoe Right Footwear Regular Shoe Pain Scale: 0-10 Numeric Is Patient Pain Free? Yes Yes YVETTE - Nurse 1 - General Ulcer Measurement Start: 07/20/25 09:40 Freq: Status: Active Protocol: Activity Type Activity Date Activity User E-sign Co-sign Detail Recorded Client Recorded Date Recorded By Document 07/20/25 09:48 GM [id number] 07/20/25 09:50 GM Document 07/27/25 08:34 ML [id number] 07/27/25 08:36 ML 07/20/25 07/27/25 09:48 08:34 Wound Center Nurse 1 #8 L Tenorio ulcer -Current Size (cm) - Length 0.4 0.1 -Current Size (cm) - Width 0.2 0.1 -Current Size (cm) - Depth 0.8 0.1 -Total Square Cm 0.08 0.01 -Date of Last Picture (Recall this 07/20/25 field) -Photo Taken Yes -Tunneling Yes -Tunneling Position (O'clock) 12 -Tunneling Distance (cm) 0.9 -Undermining/Tunneling No -Circular Undermining No -Exudate Amt None Present Medium -Exudate Type Serosanguineous -Wound Margin Distinct, Outline Attached -Granulation Amt None Present (0 Medium (34-66%) %) -Slough/Fibrin Yes Yes -Necrosis Amt Small (1-33%) Medium (34-66%) -Necrotic Tissue Type Adherent Slough Adherent Slough -Texture (Mima-wound Skin Appearance) Assessed Assessed -Moisture (Mima-wound Skin Appearance) Assessed -Color (Mima-wound Skin Appearance) Assessed Assessed -Temperature (Mima-wound Skin No Abnormality No Abnormality Appearance) (Pt Warm) (Pt Warm) -Tenderness on Palpation (Mima-wound No Skin Appearance) -Ulcer Cleansing Soap and Water Wound Cleanser -Foul Odor after Cleansing No -Anesthetic Used 5% Lidocaine 5% Lidocaine Gel Gel WC - Nurse 2 - General Ulcer CM Notes Start: 07/20/25 09:40 Freq: Status: Active Protocol: Activity Type Activity Date Activity User E-sign Co-sign Detail Recorded Client Recorded Date Recorded By Document 07/20/25 10:08 [id number] 07/20/25 10:10 JF Document 07/27/25 08:47 [id number] 07/27/25 08:48 07/20/25 07/27/25 10:08 08:47 Wound Center Nurse 2 #8 L Tenorio ulcer -Time 10:08 08:47 -Correct Patient Yes Yes -Correct Side, Site, Position Yes Yes -Correct Procedure Yes Yes -Procedure Performed Yes Yes -Type of Procedure Debridement Debridement -Clinical Debridement Muscle / Fascia Muscle / Fascia -Tissue Removed Muscle Muscle -Post Debridement (cm) - Length 0.8 0.9 -Post Debridement (cm) - Width 0.4 0.5 -Post Debridement (cm) - Depth 1.6 1.3 -Total Square (Post) (cm) 0.32 0.45 -Area of Debridement (cm) - Length 0.8 0.9 -Area of Debridement (cm) - Width 0.4 0.5 -Total Square (Area) (cm) 0.32 0.45 -Tunneling No No -Undermining/Tunneling No No -Circular Undermining No No -Wound/Ulcer Outcome Not Healed -Ulcer Cleansing Rinsed/ Rinsed/ Irrigated with Irrigated with Saline Saline -Foul Odor after Cleansing No No -Bioengineered Tissue No No -Bleeding Controlled with Pressure Pressure -Treatment Response Procedure Procedure Tolerated Well Tolerated Well -Offloading No No -Debridement - Muscle / Fascia, 1st Yes Yes 20sq cm Pain Scale: 0-10 Numeric Is Patient Pain Free? Yes Yes - Nurse 3 - General Ulcer D/C NN Start: 07/20/25 09:40 Freq: Status: Active Protocol: Activity Type Activity Date Activity User E-sign Co-sign Detail Recorded Client Recorded Date Recorded By Document 07/20/25 10:17 [id number] 07/20/25 10:18 Document 07/27/25 09:03 [id number] 07/27/25 09:04 07/20/25 07/27/25 10:17 09:03 Wound Care Center Nurse 3 #8 L Tneorio ulcer -Ulcer Cleansing Not Cleansed Not Cleansed -Foul Odor after Cleansing No -NPWT Application Charge NPWT </= 50 sq cm (disp) ($) -Primary Dressing Applied Promogran Madelaine Matter, Silicone Border Foam 4x4 -Promogran Madelaine Matter 1 -Silicone Border Foam 4x4 1 LLE -Lotion applied to leg before No Yes compression wrap -Compression Wrap Ino Wrap -Tubular Bandage Single Layer -Size of Tubigrip Used Size D -Size D ($) 2 Pain Scale: 0-10 Numeric Is Patient Pain Free? 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 All findings were discussed with the patient. All questions were answered to the patient's satisfaction. Excisional debridement down to including subcutaneous tissue fascia and muscle with a number 3 mm dermal curette to left anterior full-thickness wound done without incident. Predebridement measurement was 0.6 x 0.3 x 0.9 cm. Postdebridement measurement is 0.9 x 0.5 x 1.3 cm. The left lower extremities were cleaned and patted dry. Snap VAC was applied by nursing staff per the manufactures recommendation. She will have a change here at the wound center once per week. Patient will continue strict blood sugar control. I educated the patient that she just needs to quit smoking as this will definitely inhibit her healing. Follow-up at the wound care center with Dr. Estevez in 2 week.
--- NOTE | 2025-07-28 08:55 | WC ---
PHOTO-LEFT RODNEY 07/27/25
[2025-08-03 09:41] VITALS: BP 140/66; PULSE 75; RESP 18; TEMP 36.5
== END 2025-08-07 23:59 | disposition home or self-care (01) ==
LOC: WC 09:30
PROVIDERS: Referring Provider Nurse Practitioner Family; Visit Provider Podiatrist Foot & Ankle Surgery
DX: E11.622 Type 2 diabetes mellitus with other skin ulcer (principal); L97.825 Non-pressure chronic ulcer of other part of left lower leg with muscle involvement without evidence of necrosis; F17.200 Nicotine dependence, unspecified, uncomplicated
CPT/HCPCS: 11043; 97607

== ENCOUNTER 2025-09-07 09:30 | Outpatient (RCR) | payer MEDICAID, SELFPAY ==
[2025-08-08 10:21] VITALS: BP 143/79; PULSE 82; RESP 16; TEMP 36.9
[2025-08-10 09:29] VITALS: BP 125/95; PULSE 86; RESP 16; TEMP 35.8
--- NOTE | 2025-08-10 11:11 | PCM.WC.PN ---
History of Present Illness Date of Service: 08/10/25 Chief Complaint: nonhealing ulcer left anterior leg. History of Wound: Patient has been using a snap negative pressure wound VAC being changed with wound care center. Progress of Wound: Stable full-thickness wound with VAC application, left lower extremity Subjective Subjective Patient is a 64-year-old female presented to wound care center today follow-up evaluation of full-thickness wound with snap negative pressure wound VAC application here at the wound care center as scheduled. The wound is improving. She denies any drainage into the canister. She has no pain. She does continue to smoke but does reduce her smoking the best she can. She denies trauma. Denies constitutional symptoms. No other pedal complaints at this time. Objective Data Objective Data Vital Signs: Vital Signs Temp Pulse Resp BP O2 Del Method 96.5 F L 86 16 125/95 H Room Air 08/10/25 09:29 08/10/25 09:29 08/10/25 09:29 08/10/25 09:29 08/10/25 09:29 Oxygen Delivery Method Room Air Lab / Micro Data Micro: Microbiology 03/23/25 14:09 Ulcer, Decubitus - Leg, Left Gram Stain - Final 03/23/25 14:09 Ulcer, Decubitus - Leg, Left Wound Culture - Final Meth. resistant Staph. aureus Corynebacterium striatum Pasteurella multocida 03/23/25 14:09 Ulcer, Decubitus - Leg, Left Anaerobic Culture - Final Anaerobic cocci Physical Exam Narrative Vascular: DP and PT pulses are palpable. CFT is brisk. Skin temperature great is warm to warm from proximal ankle to the distal digits to left lower extremity. Nonpitting edema appreciated to left lower extremity. No erythema. Neurological: Light touch intact. Patient does respond to painful stimuli. Dermatological: Full-thickness wound to left anterior leg measuring 1.2 x 1.0 x 0.9 cm. Negative probe to bone. Wound base is granular. No drainage or sign of infection. Excisional debridement down to including subcutaneous tissue fascia and muscle with a number 3 mm dermal curette to left anterior full-thickness wound done without incident. Predebridement measurement was 1.0 x 0.9 x 0.8 cm. Postdebridement measurement is 1.2 x 1.0 x 0.9 cm. Musculoskeletal: No pain on palpation of full-thickness ulceration to left tibia. No pain with calf compression. Debridement Note Debridement Note Debridement Free Text: Excisional debridement down to including subcutaneous tissue fascia and muscle with a number 3 mm dermal curette to left anterior full-thickness wound done without incident. Predebridement measurement was 1.0 x 0.9 x 0.8 cm. Postdebridement measurement is 1.2 x 1.0 x 0.9 cm. Post-Debridement Measurements and Additional Note: Post-Debridement Measurements/Treatment - Nurse 1 - General Ulcer Assessment Start: 08/08/25 10:21 Freq: Status: Active Protocol: WC.LOWEXT Activity Type Activity Date Activity User E-sign Co-sign Detail Recorded Client Recorded Date Recorded By Document 08/08/25 10:21 DS [id number] 08/08/25 10:24 DS Document 08/10/25 09:29 TS [id number] 08/10/25 09:34 TS 08/08/25 08/10/25 10:21 09:29 - Today's Visit Information Type of service Nurse-only Follow-up Visit Visit (Physician/PIERCING ARTIST ) Arrival Mode Ambulatory Ambulatory Patient Identification Verified (Name & Yes Yes ) Patient Requires Transmission-Based No No Precautions Safety Precautions Fall Prevention Fall Prevention Vital Signs Temperature (97.8 F-99.1 F) 98.5 F 96.5 F L Temperature Source Temporal Temporal Pulse Rate (60-100) 82 86 Pulse Location Monitor Monitor Respiratory Rate (12-18) 16 16 Respiratory rate source Observation Observation Oxygen Delivery Method Room Air Room Air Blood Pressure (90/60-120/80) 143/79 H 125/95 H Blood Pressure Mean (mm Hg) 100 105 Source Monitor Monitor Position Sitting Sitting Blood Pressure Location Left Forearm Left Arm History Since Last Visit- (Skip if this is Patient's initial visit) Have you changed medications since your No last visit? Any new allergies or adverse reactions No Had a fall/change in ADL's that may No increase risk of falls Signs or symptoms of abuse and/or No neglect since last visit Have you been in the hospital since your No last visit? Has dressing in place as prescribed Yes Has compression in place as prescribed N/A Has offloadiing in place as prescribed N/A Experienced any changes in pain level or No management Left Footwear Regular Shoe Right Footwear Regular Shoe Pain Scale: 0-10 Numeric Is Patient Pain Free? Yes Yes WC - Nurse 1 - General Ulcer Measurement Start: 08/08/25 10:21 Freq: Status: Active Protocol: Activity Type Activity Date Activity User E-sign Co-sign Detail Recorded Client Recorded Date Recorded By Document 08/10/25 09:29 TS [id number] 08/10/25 09:34 TS 08/10/25 09:29 Wound Center Nurse 1 #8 L Tenorio ulcer -Combined with other wound No -Current Size (cm) - Length 1 -Current Size (cm) - Width 1 -Current Size (cm) - Depth 1.2 -Total Square Cm 1 -Date of Last Picture (Recall this 08/10/25 field) -Photo Taken Yes -Undermining/Tunneling No -Circular Undermining No -Exudate Amt Medium -Exudate Type Serosanguineous -Wound Margin Thickened & Rolled Under -Granulation Amt Medium (34-66%) -Granulation Quality [place],Red -Slough/Fibrin No -Structure Exposed None/Limited to Skin Breakdown -Texture (Mima-wound Skin Appearance) Assessed -Moisture (Mima-wound Skin Appearance) Assessed -Color (Mima-wound Skin Appearance) Assessed -Temperature (Mima-wound Skin No Abnormality Appearance) (Pt Warm) -Ulcer Cleansing Soap and Water -Foul Odor after Cleansing No -Anesthetic Used 5% Lidocaine Gel WC - Nurse 2 - General Ulcer CM Notes Start: 08/08/25 10:21 Freq: Status: Active Protocol: Activity Type Activity Date Activity User E-sign Co-sign Detail Recorded Client Recorded Date Recorded By Document 08/10/25 09:41 [id number] 08/10/25 09:46 08/10/25 09:41 Wound Center Nurse 2 -Time 09:42 -Correct Patient Yes -Correct Side, Site, Position Yes -Correct Procedure Yes -Procedure Performed Yes -Type of Procedure Debridement -Clinical Debridement Muscle / Fascia -Tissue Removed Muscle -Post Debridement (cm) - Length 1.2 -Post Debridement (cm) - Width 1.0 -Post Debridement (cm) - Depth 0.9 -Total Square (Post) (cm) 1.20 -Area of Debridement (cm) - Length 1.2 -Area of Debridement (cm) - Width 1.0 -Total Square (Area) (cm) 1.20 -Tunneling No -Undermining/Tunneling No -Circular Undermining No -Wound/Ulcer Outcome Not Healed -Ulcer Cleansing Rinsed/ Irrigated with Saline -Foul Odor after Cleansing No -Bioengineered Tissue No -Bleeding Controlled with Pressure -Debridement - Muscle / Fascia, 1st Yes 20sq cm Pain Scale: 0-10 Numeric Is Patient Pain Free? Yes WC - Nurse 3 - General Ulcer D/C NN Start: 08/08/25 10:21 Freq: Status: Active Protocol: Activity Type Activity Date Activity User E-sign Co-sign Detail Recorded Client Recorded Date Recorded By Document 08/08/25 10:21 DS [id number] 08/08/25 10:24 DS Document 08/10/25 10:15 RB [id number] 08/10/25 10:17 RB 08/08/25 08/10/25 10:21 10:15 Pain Scale: 0-10 Numeric Is Patient Pain Free? Yes Yes Wound Care Center Nurse 3 #8 L Tenorio ulcer -Ulcer Cleansing Rinsed/ Irrigated with Saline -Negative Pressure Wound Therapy Continue -Pieces of Black Foam Inserted 1 -NPWT Application Charge NPWT </= 50 sq NPWT & cm (disp) ($) Debridement (nc ) -Setting (mmHg) 125 -Negative Pressure is Continuous Continuous -Wound Comment(s) SNAP VAC PLACED snap vac applied LLE -Tubular Bandage Single Layer Single Layer -Size of Tubigrip Used Size D Size D -Size D ($) 1 1 WC - Visit Discharge Discharge Condition Stable Stable Ambulatory Status Ambulatory Ambulatory Transportation Private Auto Private Auto Medication Reconcilliation completed & No provided to patient/care provider Clinical Summary of Care Provided Yes Assessment/Plan Assessment/Plan (1) 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 All findings were discussed with the patient. All questions were answered to the patient's satisfaction. Excisional debridement down to including subcutaneous tissue fascia and muscle with a number 3 mm dermal curette to left anterior full-thickness wound done without incident. Predebridement measurement was 1.0 x 0.9 x 0.8 cm. Postdebridement measurement is 1.2 x 1.0 x 0.9 cm. The left lower extremities were cleaned and patted dry. Snap VAC was applied by nursing staff per the manufactures recommendation. She will have a change here at the wound center once per week. Patient will continue strict blood sugar control. I educated the patient that she just needs to quit smoking as this will definitely inhibit her healing. Patient will follow-up for nursing visits on Friday, Friday and Friday Follow-up at the wound care center with Dr. Estevez in 2 week.
--- NOTE | 2025-08-11 09:25 | WC ---
PHOTO-LEFT RODNEY 08/10/25
[2025-08-12 09:31] VITALS: BP 125/70; PULSE 91; RESP 16; TEMP 35.8
[2025-08-17 08:50] VITALS: BP 135/72; PULSE 81; RESP 16; TEMP 36.4
--- NOTE | 2025-08-17 09:02 | PCM.WC.PN ---
History of Present Illness Date of Service: 08/17/25 Chief Complaint: nonhealing ulcer left anterior leg. History of Wound: Patient has been using a snap negative pressure wound VAC being changed with wound care center. Progress of Wound: Stable full-thickness wound with VAC application, left lower extremity Subjective Subjective Patient is a 64-year-old diabetic female presenting to wound care center today follow-up evaluation of full-thickness wound to left anterior leg. She has getting stamp application at the wound center and left along clean dry and intact. Blood sugar well-controlled. Denies trauma. Denies constitutional symptoms. No other pedal complaints at this time. Patient has reduced her smoking Objective Data Objective Data Vital Signs: Vital Signs Temp Pulse Resp BP O2 Del Method 97.5 F L 81 16 135/72 H Room Air 08/17/25 08:50 08/17/25 08:50 08/17/25 08:50 08/17/25 08:50 08/17/25 08:50 Oxygen Delivery Method Room Air Lab / Micro Data Micro: Microbiology 03/23/25 14:09 Ulcer, Decubitus - Leg, Left Gram Stain - Final 03/23/25 14:09 Ulcer, Decubitus - Leg, Left Wound Culture - Final Meth. resistant Staph. aureus Corynebacterium striatum Pasteurella multocida 03/23/25 14:09 Ulcer, Decubitus - Leg, Left Anaerobic Culture - Final Anaerobic cocci Physical Exam Narrative Vascular: DP and PT pulses are palpable. CFT is brisk. Skin temperature great is warm to warm from proximal ankle to the distal digits to left lower extremity. Nonpitting edema appreciated to left lower extremity. No erythema. Neurological: Light touch intact. Patient does respond to painful stimuli. Dermatological: Full-thickness wound to left anterior leg measuring 1.1 x 0.9 x 0.8 cm. Negative probe to bone. Wound base is granular. No drainage or sign of infection. Excisional debridement down to including subcutaneous tissue fascia and muscle with a number 3 mm dermal curette to left anterior full-thickness wound done without incident. Predebridement measurement was 1.1 x 0.9 x 0.8 cm. Postdebridement measurement is 1.1 x 0.9 x 0.8 cm. Musculoskeletal: No pain on palpation of full-thickness ulceration to left tibia. No pain with calf compression. Debridement Note Debridement Note Debridement Free Text: Excisional debridement down to including subcutaneous tissue fascia and muscle with a number 3 mm dermal curette to left anterior full-thickness wound done without incident. Predebridement measurement was 1.1 x 0.9 x 0.8 cm. Postdebridement measurement is 1.1 x 0.9 x 0.8 cm. Post-Debridement Measurements and Additional Note: Post-Debridement Measurements/Treatment - Nurse 1 - General Ulcer Assessment Start: 08/08/25 10:21 Freq: Status: Active Protocol: ELENA Activity Type Activity Date Activity User E-sign Co-sign Detail Recorded Client Recorded Date Recorded By Document 08/08/25 10:21 DS [id number] 08/08/25 10:24 DS Document 08/10/25 09:29 TS [id number] 08/10/25 09:34 TS Document 08/12/25 09:31 TS [id number] 08/12/25 09:40 TS Document 08/17/25 08:50 TS [id number] 08/17/25 08:52 TS 08/08/25 08/10/25 08/12/25 10:21 09:29 09:31 - Today's Visit Information Type of service Nurse-only Follow-up Visit Nurse-only Visit (Physician/BUSINESS SERVICES SPECIALIST SALES Visit ) Arrival Mode Ambulatory Ambulatory Ambulatory Patient Identification Verified (Name & Yes Yes Yes ) Patient Requires Transmission-Based No No No Precautions Safety Precautions Fall Prevention Fall Prevention Fall Prevention Vital Signs Temperature (97.8 F-99.1 F) 98.5 F 96.5 F L 96.4 F L Temperature Source Temporal Temporal Temporal Pulse Rate (60-100) 82 86 91 Pulse Location Monitor Monitor Monitor Respiratory Rate (12-18) 16 16 16 Respiratory rate source Observation Observation Observation Oxygen Delivery Method Room Air Room Air Room Air Blood Pressure (90/60-120/80) 143/79 H 125/95 H 125/70 H Blood Pressure Mean (mm Hg) 100 105 88 Source Monitor Monitor Monitor Position Sitting Sitting Sitting Blood Pressure Location Left Forearm Left Arm Right Arm History Since Last Visit- (Skip if this is Patient's initial visit) Have you changed medications since your No No last visit? Any new allergies or adverse reactions No No Had a fall/change in ADL's that may No No increase risk of falls Signs or symptoms of abuse and/or No No neglect since last visit Have you been in the hospital since your No No last visit? Has dressing in place as prescribed Yes Yes Has compression in place as prescribed N/A Yes Has offloadiing in place as prescribed N/A N/A Experienced any changes in pain level or No No management Left Footwear Regular Shoe Regular Shoe Right Footwear Regular Shoe Regular Shoe Pain Scale: 0-10 Numeric Is Patient Pain Free? Yes Yes Yes 08/17/25 08:50 WC - Today's Visit Information Type of service Follow-up Visit (Physician/BUSINESS SERVICES SPECIALIST SALES ) Arrival Mode Ambulatory Patient Identification Verified (Name & Yes ) Patient Requires Transmission-Based No Precautions Safety Precautions Fall Prevention Vital Signs Temperature (97.8 F-99.1 F) 97.5 F L Temperature Source Temporal Pulse Rate (60-100) 81 Pulse Location Monitor Respiratory Rate (12-18) 16 Respiratory rate source Observation Oxygen Delivery Method Room Air Blood Pressure (90/60-120/80) 135/72 H Blood Pressure Mean (mm Hg) 93 Source Monitor Position Sitting Blood Pressure Location Left Arm History Since Last Visit- (Skip if this is Patient's initial visit) Have you changed medications since your No last visit? Any new allergies or adverse reactions No Had a fall/change in ADL's that may No increase risk of falls Signs or symptoms of abuse and/or No neglect since last visit Have you been in the hospital since your last visit? Has dressing in place as prescribed Yes Has compression in place as prescribed Yes Has offloadiing in place as prescribed N/A Experienced any changes in pain level or No management Left Footwear Regular Shoe Right Footwear Regular Shoe Pain Scale: 0-10 Numeric Is Patient Pain Free? No - Nurse 1 - General Ulcer Measurement Start: 08/08/25 10:21 Freq: Status: Active Protocol: Activity Type Activity Date Activity User E-sign Co-sign Detail Recorded Client Recorded Date Recorded By Document 08/10/25 09:29 TS [id number] 08/10/25 09:34 TS Document 08/17/25 08:50 TS [id number] 08/17/25 08:52 TS 08/10/25 08/17/25 09:29 08:50 Wound Center Nurse 1 #8 L Tenorio ulcer -Combined with other wound No No -Current Size (cm) - Length 1 0.9 -Current Size (cm) - Width 1 0.5 -Current Size (cm) - Depth 1.2 0.4 -Total Square Cm 1 0.45 -Date of Last Picture (Recall this 08/10/25 08/17/25 field) -Photo Taken Yes No -Undermining/Tunneling No Yes -Undermining/Tunneling Starts (O'clock 12 ) -Undermining/Tunneling Ends (O'clock) 12 -Maximum Distance (cm) 0.8 -Circular Undermining No No -Exudate Amt Medium Medium -Exudate Type Serosanguineous Serosanguineous -Wound Margin Thickened & Distinct, Rolled Under Outline Attached -Granulation Amt Medium (34-66%) Small (1-33%) -Granulation Quality [place],Red [place],Red -Slough/Fibrin No -Necrotic Tissue Type Adherent Slough -Structure Exposed None/Limited to None/Limited to Skin Breakdown Skin Breakdown -Texture (Mima-wound Skin Appearance) Assessed Assessed -Moisture (Mima-wound Skin Appearance) Assessed Assessed -Color (Mima-wound Skin Appearance) Assessed Assessed -Temperature (Mima-wound Skin No Abnormality No Abnormality Appearance) (Pt Warm) (Pt Warm) -Ulcer Cleansing Soap and Water Soap and Water -Foul Odor after Cleansing No No -Anesthetic Used 5% Lidocaine 5% Lidocaine Gel Gel Point of measurement (cm from the medial 29.6 instep) Point of Measurement (cm from the medial 19.8 instep) WC - Nurse 2 - General Ulcer CM Notes Start: 08/08/25 10:21 Freq: Status: Active Protocol: Activity Type Activity Date Activity User E-sign Co-sign Detail Recorded Client Recorded Date Recorded By Document 08/10/25 09:41 GM [id number] 08/10/25 09:46 GM Document 08/17/25 08:57 GM(2) [id number] 08/17/25 08:59 GM(2) 08/10/25 08/17/25 09:41 08:57 Wound Center Nurse 2 #8 L Tenorio ulcer -Time 09:42 08:57 -Correct Patient Yes Yes -Correct Side, Site, Position Yes Yes -Correct Procedure Yes Yes -Procedure Performed Yes Yes -Type of Procedure Debridement Debridement -Clinical Debridement Muscle / Fascia Muscle / Fascia -Tissue Removed Muscle Muscle -Post Debridement (cm) - Length 1.2 1.1 -Post Debridement (cm) - Width 1.0 0.9 -Post Debridement (cm) - Depth 0.9 0.8 -Total Square (Post) (cm) 1.20 0.99 -Area of Debridement (cm) - Length 1.2 1.1 -Area of Debridement (cm) - Width 1.0 0.9 -Total Square (Area) (cm) 1.20 0.99 -Tunneling No No -Undermining/Tunneling No No -Circular Undermining No No -Wound/Ulcer Outcome Not Healed Not Healed -Ulcer Cleansing Rinsed/ Rinsed/ Irrigated with Irrigated with Saline Saline -Foul Odor after Cleansing No No -Bioengineered Tissue No No -Bleeding Controlled with Pressure Pressure -Treatment Response Procedure Tolerated Well -Offloading No -Debridement - Muscle / Fascia, 1st Yes Yes 20sq cm Pain Scale: 0-10 Numeric Is Patient Pain Free? Yes Yes WC - Nurse 3 - General Ulcer D/C NN Start: 08/08/25 10:21 Freq: Status: Active Protocol: Activity Type Activity Date Activity User E-sign Co-sign Detail Recorded Client Recorded Date Recorded By Document 08/08/25 10:21 DS [id number] 08/08/25 10:24 DS Document 08/10/25 10:15 RB [id number] 08/10/25 10:17 RB Document 08/12/25 09:31 TS [id number] 08/12/25 09:40 TS Edit Result 08/12/25 09:31 TS (1) [id number] 08/12/25 09:55 TS (1) #8 L Tenorio ulcer - Negative Pressure Wound Therapy => Continue - NPWT Application Charge => NPWT </= 50 sq cm => (disp) ($) - Setting (mmHg) => 125 - Negative Pressure is => Continuous - Wound Comment(s) => snap vac applied Discharge Condition => Stable Ambulatory Status => Ambulatory Transportation => Private Auto Medication Reconcilliation completed & => No provided to patient/care provider Clinical Summary of Care Provided => Yes 08/08/25 08/10/25 08/12/25 10:21 10:15 09:31 Pain Scale: 0-10 Numeric Is Patient Pain Free? Yes Yes Yes Wound Care Center Nurse 3 #8 L Tenorio ulcer -Ulcer Cleansing Rinsed/ Irrigated with Saline -Negative Pressure Wound Therapy Continue Continue -Pieces of Black Foam Inserted 1 -NPWT Application Charge NPWT </= 50 sq NPWT & NPWT </= 50 sq cm (disp) ($) Debridement (nc cm (disp) ($) ) -Setting (mmHg) 125 125 -Negative Pressure is Continuous Continuous Continuous -Wound Comment(s) SNAP VAC PLACED snap vac snap vac applied applied LLE -Tubular Bandage Single Layer Single Layer -Size of Tubigrip Used Size D Size D -Size D ($) 1 1 WC - Visit Discharge Discharge Condition Stable Stable Stable Ambulatory Status Ambulatory Ambulatory Ambulatory Transportation Private Auto Private Auto Private Auto Medication Reconcilliation completed & No No provided to patient/care provider Clinical Summary of Care Provided Yes Yes Assessment/Plan Assessment/Plan (1) 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 All findings were discussed with the patient. All questions were answered to the patient's satisfaction. Excisional debridement down to including subcutaneous tissue fascia and muscle with a number 3 mm dermal curette to left anterior full-thickness wound done without incident. Predebridement measurement was 1.1 x 0.9 x 0.8 cm. Postdebridement measurement is 1.1 x 0.9 x 0.8 cm. The left lower extremities were cleaned and patted dry. Snap VAC was applied by nursing staff per the manufactures recommendation. She will have a change here at the wound center once per week. Patient will continue strict blood sugar control. I educated the patient that she just needs to quit smoking as this will definitely inhibit her healing. Patient will follow-up for nursing visits on Friday Follow-up at the wound care center with Dr. Estevez in 2 week.
--- NOTE | 2025-08-18 09:01 | WC ---
PHOTO-LEFT RODNEY 08/17/25
[2025-08-19 09:30] VITALS: BP 131/70; PULSE 82; RESP 18; TEMP 36.2
[2025-08-24 09:21] VITALS: BP 123/90; PULSE 82; RESP 16; TEMP 35.8
[2025-08-29 10:41] VITALS: BP 137/62; PULSE 80; RESP 17; TEMP 35.9
[2025-08-31 11:16] VITALS: BP 135/67; PULSE 98; RESP 16; TEMP 35.7
--- NOTE | 2025-08-31 11:40 | PCM.WC.PN ---
History of Present Illness Date of Service: 08/31/25 Chief Complaint: nonhealing ulcer left anterior leg. History of Wound: Patient has been using a snap negative pressure wound VAC being changed with wound care center. Progress of Wound: Stable full-thickness wound with VAC application, left lower extremity Subjective Subjective Patient is a 64-year-old diabetic female presenting to wound care center today follow-up evaluation of full-thickness wound to left anterior leg. Patient has been getting snap VAC and negative pressure wound VAC changes per the nursing staff at the wound care center. She admitts great improvement to the wound. She does continue to smoke. She denies any trauma. Denies constitutional symptoms. No other pedal complaints at this time. Objective Data Objective Data Vital Signs: Vital Signs Temp Pulse Resp BP O2 Del Method 96.3 F L 98 16 135/67 H Room Air 08/31/25 11:16 08/31/25 11:16 08/31/25 11:16 08/31/25 11:16 08/31/25 11:16 Oxygen Delivery Method Room Air Lab / Micro Data Micro: Microbiology 03/23/25 14:09 Ulcer, Decubitus - Leg, Left Gram Stain - Final 03/23/25 14:09 Ulcer, Decubitus - Leg, Left Wound Culture - Final Meth. resistant Staph. aureus Corynebacterium striatum Pasteurella multocida 03/23/25 14:09 Ulcer, Decubitus - Leg, Left Anaerobic Culture - Final Anaerobic cocci Physical Exam Narrative Vascular: DP and PT pulses are palpable. CFT is brisk. Skin temperature great is warm to warm from proximal ankle to the distal digits to left lower extremity. Nonpitting edema appreciated to left lower extremity. No erythema. Neurological: Light touch intact. Patient does respond to painful stimuli. Dermatological: Full-thickness wound to left anterior leg measuring 1.0 x 0.7 x 0.8 cm. Negative probe to bone. Wound base is granular. No drainage or sign of infection. Excisional debridement down to including subcutaneous tissue fascia and muscle with a number 3 mm dermal curette to left anterior full-thickness wound done without incident. Predebridement measurement was 0.9 x 0.6 x 0.5 cm. Postdebridement measurement is 1.0 x 0.7 x 0.8 cm. Musculoskeletal: No pain on palpation of full-thickness ulceration to left tibia. No pain with calf compression. Debridement Note Debridement Note Debridement Free Text: Excisional debridement down to including subcutaneous tissue fascia and muscle with a number 3 mm dermal curette to left anterior full-thickness wound done without incident. Predebridement measurement was 0.9 x 0.6 x 0.5 cm. Postdebridement measurement is 1.0 x 0.7 x 0.8 cm. Post-Debridement Measurements and Additional Note: Post-Debridement Measurements/Treatment - Nurse 1 - General Ulcer Assessment Start: 08/08/25 10:21 Freq: Status: Active Protocol: .LOWEXT Activity Type Activity Date Activity User E-sign Co-sign Detail Recorded Client Recorded Date Recorded By Document 08/08/25 10:21 DS [id number] 08/08/25 10:24 DS Document 08/10/25 09:29 TS [id number] 08/10/25 09:34 TS Document 08/12/25 09:31 TS [id number] 08/12/25 09:40 TS Document 08/17/25 08:50 TS [id number] 08/17/25 08:52 TS Document 08/19/25 09:30 GM [id number] 08/19/25 09:33 GM Document 08/24/25 09:21 TS [id number] 08/24/25 09:22 TS Document 08/29/25 10:41 TS [id number] 08/29/25 10:50 TS Document 08/31/25 11:16 TS [id number] 08/31/25 11:21 TS 08/08/25 08/10/25 08/12/25 10:21 09:29 09:31 - Today's Visit Information Type of service Nurse-only Follow-up Visit Nurse-only Visit (Physician/DIAL LATHE OPERATOR Visit ) Arrival Mode Ambulatory Ambulatory Ambulatory Transfer Assistance Patient Identification Verified (Name & Yes Yes Yes ) Patient Requires Transmission-Based No No No Precautions Safety Precautions Fall Prevention Fall Prevention Fall Prevention Vital Signs Temperature (97.8 F-99.1 F) 98.5 F 96.5 F L 96.4 F L Temperature Source Temporal Temporal Temporal Pulse Rate (60-100) 82 86 91 Pulse Location Monitor Monitor Monitor Respiratory Rate (12-18) 16 16 16 Respiratory rate source Observation Observation Observation Oxygen Delivery Method Room Air Room Air Room Air Blood Pressure (90/60-120/80) 143/79 H 125/95 H 125/70 H Blood Pressure Mean (mm Hg) 100 105 88 Source Monitor Monitor Monitor Position Sitting Sitting Sitting Blood Pressure Location Left Forearm Left Arm Right Arm History Since Last Visit- (Skip if this is Patient's initial visit) Have you changed medications since your No No last visit? Any new allergies or adverse reactions No No Had a fall/change in ADL's that may No No increase risk of falls Signs or symptoms of abuse and/or No No neglect since last visit Have you been in the hospital since your No No last visit? Has dressing in place as prescribed Yes Yes Has compression in place as prescribed N/A Yes Has offloadiing in place as prescribed N/A N/A Experienced any changes in pain level or No No management Left Footwear Regular Shoe Regular Shoe Right Footwear Regular Shoe Regular Shoe Pain Scale: 0-10 Numeric Is Patient Pain Free? Yes Yes Yes 08/17/25 08/19/25 08/24/25 08:50 09:30 09:21 WC - Today's Visit Information Type of service Follow-up Visit Nurse-only Nurse-only (Physician/DIAL LATHE OPERATOR Visit Visit ) Arrival Mode Ambulatory Ambulatory Ambulatory Transfer Assistance Manual Patient Identification Verified (Name & Yes Yes Yes ) Patient Requires Transmission-Based No No No Precautions Safety Precautions Fall Prevention NA Fall Prevention Vital Signs Temperature (97.8 F-99.1 F) 97.5 F L 97.1 F L 96.5 F L Temperature Source Temporal Temporal Temporal Pulse Rate (60-100) 81 82 82 Pulse Location Monitor Monitor Monitor Respiratory Rate (12-18) 16 18 16 Respiratory rate source Observation Observation Oxygen Delivery Method Room Air Room Air Room Air Blood Pressure (90/60-120/80) 135/72 H 131/70 H 123/90 H Blood Pressure Mean (mm Hg) 93 90 101 Source Monitor Monitor Monitor Position Sitting Sitting Sitting Blood Pressure Location Left Arm Right Arm Right Arm History Since Last Visit- (Skip if this is Patient's initial visit) Have you changed medications since your No No last visit? Any new allergies or adverse reactions No No Had a fall/change in ADL's that may No No increase risk of falls Signs or symptoms of abuse and/or No No neglect since last visit Have you been in the hospital since your No last visit? Has dressing in place as prescribed Yes Yes Has compression in place as prescribed Yes Yes Has offloadiing in place as prescribed N/A N/A Experienced any changes in pain level or No No management Left Footwear Regular Shoe Regular Shoe Right Footwear Regular Shoe Regular Shoe Pain Scale: 0-10 Numeric Is Patient Pain Free? No Yes Yes 08/29/25 08/31/25 10:41 11:16 - Today's Visit Information Type of service Nurse-only Follow-up Visit Visit (Physician/DIAL LATHE OPERATOR ) Arrival Mode Ambulatory Ambulatory Transfer Assistance Patient Identification Verified (Name & Yes Yes ) Patient Requires Transmission-Based No No Precautions Safety Precautions Fall Prevention Fall Prevention Vital Signs Temperature (97.8 F-99.1 F) 96.7 F L 96.3 F L Temperature Source Temporal Temporal Pulse Rate (60-100) 80 98 Pulse Location Monitor Monitor Respiratory Rate (12-18) 17 16 Respiratory rate source Observation Observation Oxygen Delivery Method Room Air Room Air Blood Pressure (90/60-120/80) 137/62 H 135/67 H Blood Pressure Mean (mm Hg) 87 89 Source Monitor Monitor Position Sitting Sitting Blood Pressure Location Right Arm Left Arm History Since Last Visit- (Skip if this is Patient's initial visit) Have you changed medications since your No No last visit? Any new allergies or adverse reactions No No Had a fall/change in ADL's that may No No increase risk of falls Signs or symptoms of abuse and/or No No neglect since last visit Have you been in the hospital since your No No last visit? Has dressing in place as prescribed Yes Yes Has compression in place as prescribed N/A N/A Has offloadiing in place as prescribed N/A N/A Experienced any changes in pain level or No No management Left Footwear Regular Shoe Regular Shoe Right Footwear Regular Shoe Regular Shoe Pain Scale: 0-10 Numeric Is Patient Pain Free? Yes Yes - Nurse 1 - General Ulcer Measurement Start: 08/08/25 10:21 Freq: Status: Active Protocol: Activity Type Activity Date Activity User E-sign Co-sign Detail Recorded Client Recorded Date Recorded By Document 08/10/25 09:29 TS [id number] 08/10/25 09:34 TS Document 08/17/25 08:50 TS [id number] 08/17/25 08:52 TS Document 08/31/25 11:16 TS [id number] 08/31/25 11:21 TS 08/10/25 08/17/25 08/31/25 09:29 08:50 11:16 Wound Center Nurse 1 #8 L Tenorio ulcer -Combined with other wound No No No -Current Size (cm) - Length 1 0.9 1 -Current Size (cm) - Width 1 0.5 1 -Current Size (cm) - Depth 1.2 0.4 0.6 -Total Square Cm 1 0.45 1 -Date of Last Picture (Recall this 08/10/25 08/17/25 08/31/25 field) -Photo Taken Yes No Yes -Undermining/Tunneling No Yes No -Undermining/Tunneling Starts (O'clock 12 ) -Undermining/Tunneling Ends (O'clock) 12 -Maximum Distance (cm) 0.8 -Circular Undermining No No No -Exudate Amt Medium Medium Medium -Exudate Type Serosanguineous Serosanguineous Serosanguineous -Wound Margin Thickened & Distinct, Indistinct, Non Rolled Under Outline -Visible Attached -Granulation Amt Medium (34-66%) Small (1-33%) -Granulation Quality [place],Red [place],Red [place],Red -Slough/Fibrin No -Necrosis Amt Medium (34-66%) -Necrotic Tissue Type Adherent Slough Adherent Slough -Structure Exposed None/Limited to None/Limited to Muscle Skin Breakdown Skin Breakdown -Texture (Mima-wound Skin Appearance) Assessed Assessed Assessed -Moisture (Mima-wound Skin Appearance) Assessed Assessed Assessed -Color (Mima-wound Skin Appearance) Assessed Assessed Assessed -Temperature (Mima-wound Skin No Abnormality No Abnormality Appearance) (Pt Warm) (Pt Warm) -Ulcer Cleansing Soap and Water Soap and Water Soap and Water -Foul Odor after Cleansing No No No -Anesthetic Used 5% Lidocaine 5% Lidocaine 5% Lidocaine Gel Gel Gel Point of measurement (cm from the medial 29.6 instep) Point of Measurement (cm from the medial 19.8 instep) WC - Nurse 2 - General Ulcer CM Notes Start: 08/08/25 10:21 Freq: Status: Active Protocol: Activity Type Activity Date Activity User E-sign Co-sign Detail Recorded Client Recorded Date Recorded By Document 08/10/25 09:41 GM [id number] 08/10/25 09:46 GM Document 08/17/25 08:57 GM(2) [id number] 08/17/25 08:59 GM(2) Document 08/31/25 11:35 DS [id number] 08/31/25 11:37 DS 08/10/25 08/17/25 08/31/25 09:41 08:57 11:35 Wound Center Nurse 2 #8 L Tenorio ulcer -Time 09:42 08:57 11:35 -Correct Patient Yes Yes Yes -Correct Side, Site, Position Yes Yes Yes -Correct Procedure Yes Yes Yes -Procedure Performed Yes Yes Yes -Type of Procedure Debridement Debridement Debridement -Clinical Debridement Muscle / Fascia Muscle / Fascia Muscle / Fascia -Tissue Removed Muscle Muscle Muscle,Fascia -Post Debridement (cm) - Length 1.2 1.1 1.0 -Post Debridement (cm) - Width 1.0 0.9 0.7 -Post Debridement (cm) - Depth 0.9 0.8 0.8 -Total Square (Post) (cm) 1.20 0.99 0.70 -Area of Debridement (cm) - Length 1.2 1.1 1.0 -Area of Debridement (cm) - Width 1.0 0.9 0.7 -Total Square (Area) (cm) 1.20 0.99 0.70 -Tunneling No No No -Undermining/Tunneling No No No -Circular Undermining No No No -Wound/Ulcer Outcome Not Healed Not Healed Not Healed -Ulcer Cleansing Rinsed/ Rinsed/ Irrigated with Irrigated with Saline Saline -Foul Odor after Cleansing No No -Bioengineered Tissue No No -Bleeding Controlled with Pressure Pressure Pressure -Treatment Response Procedure Procedure Tolerated Well Tolerated Well -Offloading No -Debridement - Muscle / Fascia, 1st Yes Yes Yes 20sq cm Pain Scale: 0-10 Numeric Is Patient Pain Free? Yes Yes Yes WC - Nurse 3 - General Ulcer D/C NN Start: 08/08/25 10:21 Freq: Status: Active Protocol: Activity Type Activity Date Activity User E-sign Co-sign Detail Recorded Client Recorded Date Recorded By Document 08/08/25 10:21 DS [id number] 08/08/25 10:24 DS Document 08/10/25 10:15 RB [id number] 08/10/25 10:17 RB Document 08/12/25 09:31 TS [id number] 08/12/25 09:40 TS Edit Result 08/12/25 09:31 TS (1) [id number] 08/12/25 09:55 TS Document 08/17/25 09:28 RB [id number] 08/17/25 09:29 RB Document 08/19/25 09:30 GM [id number] 08/19/25 09:33 GM Edit Result 08/19/25 09:30 GM (2) [id number] 08/22/25 10:42 TS Document 08/24/25 09:21 TS [id number] 08/24/25 09:22 TS Document 08/29/25 10:41 TS [id number] 08/29/25 10:50 TS (1) #8 L Tenorio ulcer - Negative Pressure Wound Therapy => Continue - NPWT Application Charge => NPWT </= 50 sq cm => (disp) ($) - Setting (mmHg) => 125 - Negative Pressure is => Continuous - Wound Comment(s) => snap vac applied Discharge Condition => Stable Ambulatory Status => Ambulatory Transportation => Private Auto Medication Reconcilliation completed & => No provided to patient/care provider Clinical Summary of Care Provided => Yes (2) #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 Yes Yes Yes Wound Care Center Nurse 3 #8 L Ten[place] ulcer -Ulcer Cleansing Rinsed/ Irrigated with Saline -Foul Odor after Cleansing -Negative Pressure Wound Therapy Continue Continue -Pieces of Black Foam Inserted 1 -NPWT Application Charge NPWT </= 50 sq NPWT & NPWT </= 50 sq cm (disp) ($) Debridement (nc cm (disp) ($) ) -Setting (mmHg) 125 125 -Negative Pressure is Continuous Continuous Continuous -Wound Comment(s) SNAP VAC PLACED snap vac snap vac applied applied Mima-Wound Care LLE -Tubular Bandage Single Layer Single Layer -Size of Tubigrip Used Size D Size D -Size D ($) 1 1 Treatment Response WC - Visit Discharge Discharge Condition Stable Stable Stable Ambulatory Status Ambulatory Ambulatory Ambulatory Transportation Private Auto Private Auto Private Auto Medication Reconcilliation completed & No No provided to patient/care provider Clinical Summary of Care Provided Yes Yes 08/17/25 08/19/25 08/24/25 09:28 09:30 09:21 Pain Scale: 0-10 Numeric Is Patient Pain Free? Yes Yes Yes Wound Care Center Nurse 3 #8 L Tenorio ulcer -Ulcer Cleansing Rinsed/ Soap and Water Soap and Water Irrigated with Saline -Foul Odor after Cleansing No -Negative Pressure Wound Therapy Continue Continue -Pieces of Black Foam Inserted -NPWT Application Charge NPWT & NPWT </= 50 sq NPWT </= 50 sq Debridement (nc cm (disp) ($) cm (disp) ($) ) -Setting (mmHg) 125 125 125 -Negative Pressure is Continuous Continuous Continuous -Wound Comment(s) snap vac snap vac snap vac applied applied Mima-Wound Care Barrier Lotion,Barrier LLE -Tubular Bandage Single Layer Single Layer -Size of Tubigrip Used Size D Size D -Size D ($) 1 0 Treatment Response Procedure Procedure Tolerated Well Tolerated Well WC - Visit Discharge Discharge Condition Stable Stable Stable Ambulatory Status Ambulatory Ambulatory Ambulatory Transportation Private Auto Private Auto Private Auto Medication Reconcilliation completed & No No No provided to patient/care provider Clinical Summary of Care Provided Yes No Yes 08/29/25 10:41 Pain Scale: 0-10 Numeric Is Patient Pain Free? Yes Wound Care Center Nurse 3 #8 L Tenorio ulcer -Ulcer Cleansing Soap and Water -Foul Odor after Cleansing -Negative Pressure Wound Therapy -Pieces of Black Foam Inserted -NPWT Application Charge NPWT </= 50 sq cm (disp) ($) -Setting (mmHg) -Negative Pressure is -Wound Comment(s) snap vac applied Mima-Wound Care Barrier LLE -Tubular Bandage -Size of Tubigrip Used -Size D ($) Treatment Response WC - Visit Discharge Discharge Condition Stable Ambulatory Status Ambulatory Transportation Private Auto Medication Reconcilliation completed & No provided to patient/care provider Clinical Summary of Care Provided Yes Assessment/Plan Assessment/Plan (1) 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 All findings were discussed with the patient. All questions were answered to the patient's satisfaction. Excisional debridement down to including subcutaneous tissue fascia and muscle with a number 3 mm dermal curette to left anterior full-thickness wound done without incident. Predebridement measurement was 0.9 x 0.6 x 0.5 cm. Postdebridement measurement is 1.0 x 0.7 x 0.8 cm. The left lower extremity was wiped clean and patted dry. The negative pressure snap VAC was applied per the builder operator's recommendation. Patient will follow-up for nursing visits for VAC changes. Patient states that she will be getting new insurance at the turn of the year so if there is an issue with the staff fact we will just her treatment to [facility] moist gauze dry sterile dressing and compression wrap to be changed daily. If we need to we will reauthorize for snap VAC placement through the patient's new insurance as needed. Patient will continue strict blood sugar troll. Educated the patient to increase her protein intake and stop smoking. Follow-up at the wound care center with Dr. Estevez in 3 week.
[2025-09-05 11:41] VITALS: BP 136/105; PULSE 79; RESP 18; TEMP 36.7
--- NOTE | 2025-09-06 13:04 | WC ---
PHOTO: LEFT RODNEY 08/31/25
[2025-09-07 09:27] VITALS: BP 142/93; PULSE 71; RESP 16; TEMP 35.8
== END 2025-09-07 23:59 | disposition home or self-care (01) ==
LOC: WC 09:30
PROVIDERS: Referring Provider Nurse Practitioner Family; Visit Provider Podiatrist Foot & Ankle Surgery
DX: E11.622 Type 2 diabetes mellitus with other skin ulcer (principal); L97.825 Non-pressure chronic ulcer of other part of left lower leg with muscle involvement without evidence of necrosis; F17.200 Nicotine dependence, unspecified, uncomplicated
CPT/HCPCS: 97605; 11043; 97607